=== PATIENT | female | born 1990 | race Caucasian/White ===

== ENCOUNTER 2016-11-22 21:58 | Emergency (ER) | payer SELFPAY ==
[~2016-11-22 21:58] MED LIST: ACHD5005 PO; ACHYD1T PO; ALBU17AE23 IH; ALBU8.5H2 IH; AZIT250T PO; AZIT250T81 PO; DCS100C PO; DIPH1TAB25 PO; DOCO200C4 PO; HYDR-2856 PO; HYDR-757 PO; IBP600T1 PO; IBP800T PO; Ibuprofen PO; LORA10TA7 PO; LRT10T PO; NAPR-243 PO; NF-CIPDEC OT; NITR-65 PO; NITR100C3 PO; NORG1TAB15 PO; NORG1TAB17; ONDA-43 PO; ONDA8TAB13 PO; PREN-115 PO; PREN1TAB14 PO; PREN1TAB25 PO; PRM5C60 TOP; [UNRECOGNIZED DRUG - CODE] IM; epi pen
--- OUTSIDE RECORDS SUMMARY | 2016-11-22 22:05 | XMS REPORT | Continuity of Care Document ---
Author Author [facility] Organization [facility] Address Unknown Phone Unavailable Care Team Providers Care Ceramic Research Engineer Name Role Phone NO, LOCAL PHYSICIAN PCP Unavailable Insurance Providers Payer Name Policy Number Subscriber Name Relationship [facility] [id number] Chayo Wiley Self / Same As Patient Advance Directives Directive Response Recorded Date/Time Advance Directives No 01/25/16 1:01pm Health Care Power of Recreation Superintendent No 01/25/16 1:01pm Organ Donor Yes 01/25/16 1:01pm Resuscitation Status Full Code 01/25/16 1:01pm Chief Complaint and Reason for Visit Chief Complaint Lower Extremity Reason for Visit Fall in home Pain of left lower extremity due to injury status post left ankle surgery Problems Active Problems Medical Problem Onset Date Status Abdominal pain Unknown Acute Abdominal pain Unknown Acute Constipation Unknown Acute Diarrhea Unknown Acute Dysfunctional uterine bleeding Unknown Acute Edema of both legs Unknown Acute Fall in home Unknown Acute Intermittent palpitations Unknown Acute Intermittent palpitations Unknown Acute Otitis externa Unknown Acute Pain of left lower extremity due to injury Unknown Acute Sprain of ankle Unknown Acute Urinary tract infection Unknown Acute Medications Current Home Medications Medication Dose Units Route Directions Days/Qty Instructions Start Date Albuterol 8.5 Gm 1 Puff Inhalation Every 4HRS as needed for Shortness Of Breath PRN SHORTNESS OF BREATH 03/01/14 Past Home Medications Medication Directions Ordered Status Norgestimate-Ethinyl Estradiol 1 Each Tablet, 09/12/09 Discontinued Loratadine 10 Mg Tablet, 10 Mg Oral Daily 06/14/10 Discontinued Vits W-Ca,Fe,Fa(<1MG) 1 Each Tablet, 1 Each Oral 10/30/10 Discontinued Nitrofurantoin Macrocrystals 100 Mg Capsule, 1 Cap Oral Twice A Day 10/30/10 Discontinued Albuterol 17 Gm Aerosol, 90 Mcg Inhalation As Needed 06/21/11 Discontinued Epinephrine 0.3 Mg/0.3 Ml Pen.injctr, 0.3 Mg Intramusc As Needed 06/21/11 Discontinued Loratadine 10 Mg Tab, 10 Mg Oral Daily 01/16/13 Discontinued Loratadine 10 Mg Tab, 10 Mg Oral Daily 01/27/13 Discontinued Vit #108/Iron/Fa 1 Each Tablet, 1 Each Oral 01/27/13 Discontinued Vit #108/Iron/Fa 1 Each Tablet, 1 Each Oral Daily 01/27/13 Discontinued [Epi Pen] , As Needed 02/25/13 Discontinued Albuterol Sulfate 8 Gm Hfa.aer.ad, 8 Gm Inhalation As Needed 02/25/13 Discontinued Acetaminophen/Hydrocodone Bitart 1 Tab Tablet, 1 - 2 Tab Oral Every 3 Hours as needed 02/28/13 Discontinued Ibuprofen 800 Mg Tab, 800 Mg Oral Every 6 Hours as needed 02/28/13 Discontinued Docusate Sodium 100 Mg Capsule, 100 Mg Oral Twice A Day 02/28/13 Discontinued Norgestimate-Ethinyl Estradiol 1 Each Tablet, 1 Each Oral Daily 10/28/13 Discontinued Naproxen 500 Mg Tablet, 1 Each Oral Twice A Day as needed for Pain 10/28/13 Discontinued Nitrofurantoin Macrocrystals 100 Mg Capsule, 1 Each Oral Twice A Day Discontinued Ondansetron 8 Mg Tab.rapdis, 8 Mg Oral Every 6 Hours as needed for Nausea/ Vomiting 01/11/14 Discontinued Acetaminophen/Hydrocodone Bitart 1 Each Tablet, 1 Each Oral Every 4HRS as needed for Pain 01/11/14 Discontinued Docosahexanoic Acid 200 Mg Capsule, 200 Mg Oral Daily 03/01/14 Discontinued Ondansetron 8 Mg Tab, 8 Mg Oral Every 8HRS 07/09/14 Discontinued Azithromycin 250 Mg Tablet, 250 Mg Oral Daily 08/14/14 Discontinued Vit#96/Ferrous Fum/Fa 1 Each Tablet, 1 Each Oral Bedtime 09/01/14 Discontinued Docusate Sodium 100 Mg Cap, 100 Mg Oral Twice A Day 09/10/14 Discontinued Acetaminophen/Hydrocodone Bitart 1 Ea Tab, 1-2 Ea Oral Every 4HRS as needed for Pain 09/10/14 Discontinued [Ibuprofen] 800 Mg Tab, 800 Mg Oral Every 6 Hours 09/10/14 Discontinued Diphenoxylate Hcl/Atropine (Lomotil) 1 Tab Tablet, 1 Each Oral Qid Prn Discontinued Nitrofurantoin Macrocrystals 100 Mg Capsule, 1 Each Oral Twice A Day Discontinued Ciprofloxacin Hcl/Dexameth 7.5 Ml Soln, 2 Drops Otic Twice A Day 06/13/15 Discontinued Azithromycin 250 Mg Tablet, 250 Mg Oral Daily 06/13/15 Discontinued Hydrocodone/Acetaminophen 1 Each Tablet, 1 Each Oral Every 6 Hours as needed for Pain 06/13/15 Discontinued Social History Social History Problem Response Recorded Date/Time Alcohol Use Occasionally Uses 01/25/2016 1:01pm Recreational Drug Use No 01/25/2016 1:01pm Recent Foreign Travel No 05/27/2014 5:35pm Recent Infectious Disease Exposure No 05/27/2014 5:35pm Hospitalization with Isolation Denies 05/27/2014 5:35pm Smoking Status Current Everyday Smoker 01/25/2016 1:01pm Do you dip or chew tobacco? No 01/25/2016 1:01pm Query Response Start Date Stop Date Smoking Status Current Everyday Smoker 11/20/2013 Hospital Discharge Instructions No hospital discharge instructions. Plan of Care Discharge Date 01/25/16 3:14pm Disposition 01 HOME, SELF-CARE Condition at Discharge Improved Instructions/Education Provided SPLINT CARE Prescriptions See Medication Section Referrals TYE GR DPM - NO,LOCAL PHYSICIAN - Primary Care Physician Additional Instructions/Education All discharge instructions reviewed with patient and/or family. Voiced understanding. Continue usual home medications. Continue instructions by Dr. Gr. Nonweightbearing on the left lower extremity. Continue use of crutches. Ice pack for 20 minute intervals 6 times daily 3 days. Elevate the left ankle on pillows. Follow-up with Dr. Gr as previously scheduled. Contact his office Center if needed. Return to the emergency department for worsened pain, discoloration of the toes, pain from the splint, numbness, weakness, neck pain, back pain, headache, dizziness, changes in vision, changes in speech, seizure, shortness of air, vomiting, or any other concerns. Functional Status No functional status results. Allergies, Adverse Reactions, Alerts Allergen Type Severity Reaction Status Last Updated cefaclor ([id number]) Allergy Mild Active 03/11/09 amoxicillin ([id number]) Allergy Unknown Active 07/09/14 BEE'S Allergy Unknown Active 07/09/14 Immunizations Name Given Type Date of Influenza Vaccine 06/29/14 Historical Tetanus Booster (TDap) Less than 5yrs Historical Vital Signs Acute Vital Signs Vital Response Date/Time Temperature (Fahrenheit) 98.1 degrees F (97.6 - 99.5) 01/25/2016 1:01pm Temperature (Calculated Celsius) 36.51432 degrees C (36.4 - 37.5) 01/25/2016 1:01pm Temperature Source Temporal 01/25/2016 1:01pm Pulse Rate (adult) 92 bpm (60 - 90) 01/25/2016 1:01pm Respiratory Rate 20 bpm (12 - 24) 01/25/2016 1:01pm O2 Sat by Pulse Oximetry 99 % (88 - 100) 01/25/2016 1:01pm Blood Pressure 132/78 mm Hg 01/25/2016 1:01pm Blood Pressure Mean 96 mm Hg 01/25/2016 1:01pm Pain Pain Intensity 6 01/25/2016 1:01pm Height (Feet) 5 feet 01/25/2016 1:01pm Height (Calculated Centimeters) 152.165152 cm 01/25/2016 1:01pm Weight (Pounds) 190 pounds 01/25/2016 1:01pm Weight (Calculated Kilograms) 86.557849 kilograms 01/25/2016 1:01pm Height 5 ft 0 in Weight 190 lb Body Mass Index 37.1 kg/m^2 Results No known relevant diagnostic tests, laboratory data and/or discharge summary. Procedures No known history of procedures. Encounters Encounter Location Arrival/Admit Date Discharge/Depart Date Attending Provider Departed Emergency Room [facility] 01/25/16 12:20pm 02/04 3:14pm VERONA FOSTER Recent Diagnosis
== END 2016-11-22 23:35 | disposition left against medical advice (07) ==
LOC: EDUNIT# 21:58 → ER 22:00
DX: R10.84 Generalized abdominal pain (principal); Z53.21 Procedure and treatment not carried out due to patient leaving prior to being seen by health care provider

== ENCOUNTER → 2016-12-02 | Outpatient (CLI) | payer MEDICAID ==
[~2016-12-02] MED LIST changes: +ONDA4TAB10; +VIT1TABL75
--- OUTSIDE RECORDS SUMMARY | 2016-12-02 12:02 | XMS REPORT | Continuity of Care Document ---
Author Author [facility] Organization [facility] Address Unknown Phone Unavailable Care Team Providers Care First Coat Sander Name Role Phone NO, LOCAL PHYSICIAN PCP Unavailable Insurance Providers Payer Name Policy Number Subscriber Name Relationship [facility] [id number] Chayo Wiley Self / Same As Patient Advance Directives Directive Response Recorded Date/Time Advance Directives No 01/25/16 1:01pm Health Care Power of Bindery Machine Setter No 01/25/16 1:01pm Organ Donor Yes 01/25/16 [...] Type Severity Reaction Status Last Updated cefaclor ([id number]) Allergy Mild Active 03/11/09 amoxicillin ([id number]) Allergy Unknown Active 07/09/14 BEE'S Allergy Unknown Active 07/09/14 Immunizations Name Given Type Date of Influenza Vaccine 06/29/14 Historical Tetanus Booster (TDap) Less than 5yrs Historical Vital Signs Acute Vital Signs Vital Response Date/Time Temperature (Fahrenheit) 98.1 degrees F (97.6 - 99.5) 01/25/2016 1:01pm Temperature (Calculated Celsius) 36.45450 degrees C (36.4 - 37.5) 01/25/2016 1:01pm [...] 5 feet 01/25/2016 1:01pm Height (Calculated Centimeters) 152.423068 cm 01/25/2016 1:01pm Weight (Pounds) 190 pounds 01/25/2016 1:01pm Weight (Calculated Kilograms) 86.397513 kilograms 01/25/2016 1:01pm Height 5 ft 0 in Weight 190 lb Body Mass Index 37.1 kg/m^2 Results No known relevant diagnostic tests, laboratory data and/or discharge summary. Procedures No known history of procedures. Encounters Encounter Location Arrival/Admit Date Discharge/Depart Date Attending Provider Departed Emergency Room [facility] 01/25/16 12:20pm 02/04 3:14pm VERONA FOSTER Recent Diagnosis
--- NOTE | 2016-12-02 12:41 | Diagnostic Imaging Report ---
First trimester OB ultrasound. INDICATION: Dating. FINDINGS: There is a normal-appearing single intrauterine . An embryo is seen with cardiac activity at 156 beats per minute. The crown-rump length is at 8 weeks and 5 days. YARA is 07/09/17. The right ovary demonstrates a the small cystic area with thickened wall suggestive of a corpus luteum cyst. The left ovary is obscured by bowel gas. IMPRESSION: Live single intrauterine . Dictated by: Dictated on workstation # [id number]
== END ==
LOC: RAD 11:59
PROVIDERS: ATTEND Family Medicine
DX: Z34.91 Encounter for supervision of normal pregnancy, unspecified, first trimester (principal)
CPT/HCPCS: 76801

== ENCOUNTER 2016-12-15 22:15 | Emergency (ER) | payer MEDICAID ==
[~2016-12-15] VITALS: Ht 152.4 cm; Wt 86.2 kg
[~2016-12-15 22:15] MED LIST changes: -ONDA4TAB10; -VIT1TABL75
[2016-12-15] MEDS ORDERED: VIT1TABL75 (22:52)
[2016-12-15] MEDS ORDERED: ONDA4TAB10 (22:53)
[2016-12-15 23:38] LABS: BILIRUBIN,URINE NEGATIVE (NEGATIVE); KETONES,URINE 2+ (NEGATIVE); LEUKOCYTE ESTERASE ,URINE 1+ (NEGATIVE); NITRITE,URINE NEGATIVE (NEGATIVE); PH,URINE 6 (5-9); PROTEIN,URINE 2+ (NEGATIVE); UROBILINOGEN,URINE 4 MG/DL (NORMAL)
[2016-12-15 23:48] LABS: SQUAMOUS EPITHELIAL CELL,UR 25-50 /HPF; WBC,URINE RARE /HPF
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
[2016-12-16 00:25] VITALS: BP 118/68
--- OUTSIDE RECORDS SUMMARY | 2016-12-31 15:19 | XMS REPORT ---
Author Author MYKE CASTANEDA [facility] [employer] Address Unknown Phone Unavailable Care Team Providers Care Safety Belt Installer Name Role Phone MYKE CASTANEDA CP Unavailable Allergies, Adverse Reactions, Alerts Substance Reaction Event Type Cefaclor Info Not Available Drug Allergy Problems Problem Type Condition Code Onset Dates Condition Status Problem Leukorrhea, not specified as infective 623.5 Active Problem Screening examination for venereal disease V74.5 Active Problem state, incidental V22.2 Active Problem Infections of genitourinary tract in , unspecified as to episode of care 646.60 Active Problem Other dyspnea and respiratory abnormalities 786.09 Active Problem Abdominal pain, unspecified site 789.00 Active Problem Irregular menstrual cycle 626.4 Active Problem Other disorder of menstruation and other abnormal bleeding from female genital tract 626.8 Active Problem Other general counseling and advice for contraceptive management V25.09 Active Problem DTAP TEST V06.1 Active Problem Screening for malignant neoplasm of the cervix V76.2 Active Problem Maternal thyroid dysfunction complicating , childbirth, or the puerperium, unspecified as to episode of care or not applicable 648.10 Active Problem examination or test, positive result V72.42 Active Problem Impacted cerumen 380.4 Active Problem Unspecified vaginitis and vulvovaginitis 616.10 Active Problem Need for prophylactic vaccination and inoculation, Influenza V04.81 Active Problem Other, multiple, and unspecified sites, insect bite, nonvenomous, without mention of infection 919.4 Active Problem Thyrotoxicosis without mention of goiter or other cause, without mention of thyrotoxic crisis or storm 242.90 Active Problem Diarrhea 787.91 Active Problem Intestinal infection due to other organism, NEC 008.8 Active Problem Dysmenorrhea 625.3 Active Problem Screening of Streptococcus B V28.6 Active Problem Lumbago 724.2 Active Problem Supervision of other normal V22.1 Active Problem Acute upper respiratory infections of unspecified site 465.9 Active Problem Unspecified infective otitis externa 380.10 Active Problem Routine follow-up V24.2 Active Problem Carpal tunnel syndrome 354.0 Active Problem Previous delivery, unspecified as to episode of care or not applicable 654.20 Active Problem Sacroiliitis, not elsewhere classified 720.2 Active Problem Postnasal drip 784.91 Active Problem Female stress incontinence 625.6 Active Problem Unspecified contraceptive management V25.9 Active Problem Unspecified constipation 564.00 Active Assessment Strep pharyngitis J02.0 Active Problem Plantar fascial fibromatosis 728.71 Active Assessment Acute nasopharyngitis J00 Active Problem Pain in joint, ankle and foot 719.47 Active Problem Pain in joint, forearm 719.43 Active Problem Pain in soft tissues of limb 729.5 Active Medications Medication Code System Code Instructions Start Date End Date Status Dosage Amoxicillin [facility] [address]-94 500 MG Orally every 12 hrs Oct 15, 2015 Oct 25, 2015 1 tablet Procedures Procedure Coding System Code Date Office Visit, Est Pt., Level 3 CPT-4 19046 Oct 15, 2015 STREP A ASSAY W/OPTIC CPT-4 98981 Oct 15, 2015 Vital Signs Date/Time: Oct 15, 2015 Temperature 98.5 F Weight 199 lbs Height 61 in BMI 37.60 Index Blood Pressure Diastolic 82 mmHg Blood Pressure Systolic 124 mmHg Cardiac Monitoring Heart Rate 76 bpm Results Name Result Date Reference Range Unit Abnormality Flag STREP A (IN HOUSE) ----STREP A Positive [id number] ----Control + [id number] ----Lot # [id number] ----Exp date 04/14/201720151015 Summary Purpose eClinicalWorks Submission
--- OUTSIDE RECORDS SUMMARY | 2016-12-31 15:27 | XMS REPORT | Continuity of Care Document ---
Author Author [facility] Address Unknown Phone Unavailable Allergies Active Description Code Type Severity Reaction Onset Reported/Identified Relationship to Patient Clinical Status Yes amoxicillin Drug Allergy N/A N/A 11/26/2008 Yes bees OA N/A N/A 11/26/2008 Yes amoxicillin Drug Allergy 11/26/2008 Yes bees OA 11/26 Yes cefaclor [id number] Drug Allergy Mild N/A 03/11/2009 Yes Ceclor Drug Allergy N/A N/A 11/01/2010 Yes Ceclor Drug Allergy 11/01/2010 Yes amoxicillin [id number] Drug Allergy Unknown N/A 07/09/2014 Yes BEE'S BEE'S Unknown N/A 07/09/2014 Medications Problems Date Dx Coded Attending Type Code Diagnosis Diagnosed By 11/26/2008 DERICK PORRAS DO 719.47 Pain In Joint Involving Ankle And Foot 11/26/2008 DERICK PORRAS DO V70.3 Sports/school Exam 11/26/2008 DERICK PORRAS DO 719.47 Pain In Joint Involving Ankle And Foot 11/26/2008 DERICK PORRAS DO V70.3 Sports/school Exam 11/26/2008 719.47 Pain In Joint Involving Ankle And Foot 11/26/2008 V70.3 Sports/school Exam 11/26/2008 DERICK PORRAS DO 719.47 Pain In Joint Involving Ankle And Foot 11/26/2008 DERICK PORRAS DO V70.3 Sports/school Exam 11/26/2008 719.47 Pain In Joint Involving Ankle And Foot 11/26/2008 V70.3 Sports/school Exam 11/26/2008 719.47 Pain In Joint Involving Ankle And Foot 11/26/2008 V70.3 Sports/school Exam 11/26/2008 719.47 Pain In Joint Involving Ankle And Foot 11/26/2008 V70.3 Sports/school Exam 11/26/2008 DERICK PORRAS DO 719.47 Pain In Joint Involving Ankle And Foot 11/26/2008 DERICK PORRAS DO V70.3 Sports/school Exam 11/26/2008 719.47 Pain In Joint Involving Ankle And Foot 11/26/2008 V70.3 Sports/school Exam 11/26/2008 719.47 Pain In Joint Involving Ankle And Foot 11/26/2008 V70.3 Sports/school Exam 11/26/2008 719.47 Pain In Joint Involving Ankle And Foot 11/26/2008 V70.3 Sports/school Exam 11/26/2008 719.47 Pain In Joint Involving Ankle And Foot 11/26/2008 V70.3 Sports/school Exam 11/26/2008 719.47 Pain In Joint Involving Ankle And Foot 11/26/2008 V70.3 Sports/school Exam 11/26/2008 719.47 Pain In Joint Involving Ankle And Foot 11/26/2008 V70.3 Sports/school Exam 11/26/2008 719.47 Pain In Joint Involving Ankle And Foot 11/26/2008 V70.3 Sports/school Exam 11/26/2008 719.47 Pain In Joint Involving Ankle And Foot 11/26/2008 V70.3 Sports/school Exam 11/26/2008 719.47 Pain In Joint Involving Ankle And Foot 11/26/2008 V70.3 Sports/school Exam 11/26/2008 719.47 Pain In Joint Involving Ankle And Foot 11/26/2008 V70.3 Sports/school Exam 11/26/2008 719.47 Pain In Joint Involving Ankle And Foot 11/26/2008 V70.3 Sports/school Exam 11/26/2008 719.47 Pain In Joint Involving Ankle And Foot 11/26/2008 V70.3 Sports/school Exam 11/26/2008 719.47 Pain In Joint Involving Ankle And Foot 11/26/2008 V70.3 Sports/school Exam 11/26/2008 DERICK PORRAS DO 719.47 Pain In Joint Involving Ankle And Foot 11/26/2008 DERICK PORRAS DO V70.3 Sports/school Exam 11/26/2008 GILBERTO ROPER APRN 719.47 Pain In Joint Involving Ankle And Foot 11/26/2008 GILBERTO ROPER APRN V70.3 Sports/school Exam 11/26/2008 [facility], MARLIN S 719.47 Pain In Joint Involving Ankle And Foot 11/26/2008 MARLIN HORNE APRN S V70.3 Sports/school Exam 11/26/2008 GILBERTO ROPER APRN A 719.47 Pain In Joint Involving Ankle And Foot 11/26/2008 GILBERTO ROPER APRN A V70.3 Sports/school Exam 11/26/2008 GILBERTO ROPER APRN A 719.47 Pain In Joint Involving Ankle And Foot 11/26/2008 GILBERTO ROPER APRN A V70.3 Sports/school Exam 11/26/2008 719.47 Pain In Joint Involving Ankle And Foot 11/26/2008 V70.3 Sports/school Exam 11/26/2008 GILBERTO ROPER APRN A 719.47 Pain In Joint Involving Ankle And Foot 11/26/2008 GILBERTO ROPER APRN A V70.3 Sports/school Exam 11/26/2008 SILVA VALENZUELA APRN N 719.47 Pain In Joint Involving Ankle And Foot 11/26/2008 SILVA VALENZUELA APRN N V70.3 Sports/school Exam 11/26/2008 MARLIN HORNE APRN S 719.47 Pain In Joint Involving Ankle And Foot 11/26/2008 MARLIN HORNE APRN S V70.3 Sports/school Exam 11/26/2008 GILBERTO ROPER APRN A 719.47 Pain In Joint Involving Ankle And Foot 11/26/2008 GILBERTO ROPER APRN A V70.3 Sports/school Exam 11/26/2008 DERICK PORRAS DO 719.47 Pain In Joint Involving Ankle And Foot 11/26/2008 HOSEA PORRAS DOA K V70.3 Sports/school Exam 11/26/2008 PORRAS DERICK CHARLES K 719.47 Pain In Joint Involving Ankle And Foot 11/26/2008 CHIQUITA CHARLES DERICK K V70.3 Sports/school Exam 11/26/2008 ZAYRA GOMEZ MD 719.47 Pain In Joint Involving Ankle And Foot 11/26/2008 ZAYRA GOMEZ MD V70.3 Sports/school Exam 11/26/2008 ZAYRA GOMEZ MD 719.47 Pain In Joint Involving Ankle And Foot 11/26/2008 ZAYRA GOMEZ MD V70.3 Sports/school Exam 11/26/2008 MARLIN HORNE APRN 719.47 Pain In Joint Involving Ankle And Foot 11/26/2008 MARLIN HORNE APRN V70.3 Sports/school Exam 11/26/2008 ZAYRA GOMEZ MD 719.47 Pain In Joint Involving Ankle And Foot 11/26/2008 ZAYRA GOMEZ MD V70.3 Sports/school Exam 11/26/2008 ZAYRA GOMEZ MD 719.47 Pain In Joint Involving Ankle And Foot 11/26/2008 ZAYRA GOMEZ MD V70.3 Sports/school Exam 11/26/2008 ZAYRA GOMEZ MD 719.47 Pain In Joint Involving Ankle And Foot 11/26/2008 ZAYRA GOMEZ MD V70.3 Sports/school Exam 11/26/2008 BEINTEZ SKINNER APRN 719.47 Pain In Joint Involving Ankle And Foot 11/26/2008 BENITEZ SKINNER APRN V70.3 Sports/school Exam 11/26/2008 ZAYRA GOMEZ MD 719.47 Pain In Joint Involving Ankle And Foot 11/26/2008 ZAYRA GOMEZ MD V70.3 Sports/school Exam 11/26/2008 GILBERTO ROPER APRN 719.47 Pain In Joint Involving Ankle And Foot 11/26/2008 GILBERTO ROPER APRN A V70.3 Sports/school Exam 11/26/2008 ALAN SUAREZ MD 719.47 Pain In Joint Involving Ankle And Foot 11/26/2008 ALAN SUAREZ MD V70.3 Sports/school Exam 11/26/2008 ALAN SUAREZ MD 719.47 Pain In Joint Involving Ankle And Foot 11/26/2008 ALAN SUAREZ MD V70.3 Sports/school Exam 11/26/2008 ZAYRA GOMEZ MD 719.47 Pain In Joint Involving Ankle And Foot 11/26/2008 ZAYRA GOMEZ MD V70.3 Sports/school Exam 11/26/2008 ALAN SUAREZ MD 719.47 Pain In Joint Involving Ankle And Foot 11/26/2008 DANIELA FINNEY, ALAN Deshpande V70.3 Sports/school Exam 11/26/2008 GILBERTO ROPER APRN 719.47 Pain In Joint Involving Ankle And Foot 11/26/2008 GILBERTO ROPER APRN V70.3 Sports/school Exam 11/26/2008 DERICK PORRAS DO 719.47 Pain In Joint Involving Ankle And Foot 11/26/2008 DERICK PORRAS DO V70.3 Sports/school Exam 11/26/2008 DERICK PORRAS DO 719.47 Pain In Joint Involving Ankle And Foot 11/26/2008 DERICK PORRAS DO V70.3 Sports/school Exam 11/26/2008 JAMIA BINGHAM APRN 719.47 Pain In Joint Involving Ankle And Foot 11/26/2008 JAMIA BINGHAM APRN V70.3 Sports/school Exam 01/06/2009 DERICK PORRAS DO 465.9 Upper Respiratory Infection 01/06/2009 DERICK PORRAS DO 465.9 Upper Respiratory Infection 01/06/2009 465.9 Upper Respiratory Infection 01/06/2009 DERICK PORRAS DO 465.9 Upper Respiratory Infection 01/06/2009 465.9 Upper Respiratory Infection 01/06/2009 465.9 Upper Respiratory Infection 01/06/2009 465.9 Upper Respiratory Infection 01/06/2009 DERICK PORRAS DO 465.9 Upper Respiratory Infection 01/06/2009 465.9 Upper Respiratory Infection 01/06/2009 465.9 Upper Respiratory Infection 01/06/2009 465.9 Upper Respiratory Infection 01/06/2009 465.9 Upper Respiratory Infection 01/06/2009 465.9 Upper Respiratory Infection 01/06/2009 465.9 Upper Respiratory Infection 01/06/2009 465.9 Upper Respiratory Infection 01/06/2009 465.9 Upper Respiratory Infection 01/06/2009 465.9 Upper Respiratory Infection 01/06/2009 465.9 Upper Respiratory Infection 01/06/2009 465.9 Upper Respiratory Infection 01/06/2009 465.9 Upper Respiratory Infection 01/06/2009 465.9 Upper Respiratory Infection 01/06/2009 DERICK PORRAS DO 465.9 Upper Respiratory Infection 01/06/2009 GILBERTO ROPER APRN A 465.9 Upper Respiratory Infection 01/06/2009 [facility], MARLIN S 465.9 Upper Respiratory Infection 01/06/2009 [facility], GILBERTO A 465.9 Upper Respiratory Infection 01/06/2009 [facility], GILBERTO A 465.9 Upper Respiratory Infection 01/06/2009 465.9 Upper Respiratory Infection 01/06/2009 [facility], GILBERTO A 465.9 Upper Respiratory Infection 01/06/2009 [facility] SILVA N 465.9 Upper Respiratory Infection 01/06/2009 OZZIE GRADY, MARLIN S 465.9 Upper Respiratory Infection 01/06/2009 [facility], GILBERTO A 465.9 Upper Respiratory Infection 01/06/2009 PORRAS DO, DERICK K 465.9 Upper Respiratory Infection 01/06/2009 PORRAS DO, DERICK K 465.9 Upper Respiratory Infection 01/06/2009 ZAYRA GOMEZ MD 465.9 Upper Respiratory Infection 01/06/2009 ZAYRA GOMEZ MD 465.9 Upper Respiratory Infection 01/06/2009 RAMEZ HORNE APRNNDA S 465.9 Upper Respiratory Infection 01/06/2009 ZAYRA GOMEZ MD 465.9 Upper Respiratory Infection 01/06/2009 ZAYRA GOMEZ MD 465.9 Upper Respiratory Infection 01/06/2009 ZAYRA GOMEZ MD 465.9 Upper Respiratory Infection 01/06/2009 BENITEZ SKINNER APRN 465.9 Upper Respiratory Infection 01/06/2009 ZAYRA GOMEZ MD 465.9 Upper Respiratory Infection 01/06/2009 JUDSON APRN, GILBERTO A 465.9 Upper Respiratory Infection 01/06/2009 ALAN SUAREZ MD 465.9 Upper Respiratory Infection 01/06/2009 ALAN SUAREZ MD 465.9 Upper Respiratory Infection 01/06/2009 ZAYRA GOMEZ MD 465.9 Upper Respiratory Infection 01/06/2009 ALAN SUAREZ MD 465.9 Upper Respiratory Infection 01/06/2009 [facility], GILBERTO A 465.9 Upper Respiratory Infection 01/06/2009 PORRAS DO, DERICK K 465.9 Upper Respiratory Infection 01/06/2009 PORRAS DO, DERICK K 465.9 Upper Respiratory Infection 01/06/2009 JAMIA BINGHAM APRN 465.9 Upper Respiratory Infection 07/24/2009 DERICK PORRAS DO V25.04 Counseling And Instruction In Natural Family Planning To Avoid 07/24/2009 DERICK PORRAS DO V25.04 Counseling And Instruction In Natural Family Planning To Avoid 07/24/2009 V25.04 Counseling And Instruction In Natural Family Planning To Avoid 07/24/2009 DERICK PORRAS DO V25.04 Counseling And Instruction In Natural Family Planning To Avoid 07/24/2009 V25.04 Counseling And Instruction In Natural Family Planning To Avoid 07/24/2009 V25.04 Counseling And Instruction In Natural Family Planning To Avoid 07/24/2009 V25.04 Counseling And Instruction In Natural Family Planning To Avoid 07/24/2009 DERICK PORRAS DO V25.04 Counseling And Instruction In Natural Family Planning To Avoid 07/24/2009 V25.04 Counseling And Instruction In Natural Family Planning To Avoid 07/24/2009 V25.04 Counseling And Instruction In Natural Family Planning To Avoid 07/24/2009 V25.04 Counseling And Instruction In Natural Family Planning To Avoid 07/24/2009 V25.04 Counseling And Instruction In Natural Family Planning To Avoid 07/24/2009 V25.04 Counseling And Instruction In Natural Family Planning To Avoid 07/24/2009 V25.04 Counseling And Instruction In Natural Family Planning To Avoid 07/24/2009 V25.04 Counseling And Instruction In Natural Family Planning To Avoid 07/24/2009 V25.04 Counseling And Instruction In Natural Family Planning To Avoid 07/24/2009 V25.04 Counseling And Instruction In Natural Family Planning To Avoid 07/24/2009 V25.04 Counseling And Instruction In Natural Family Planning To Avoid 07/24/2009 V25.04 Counseling And Instruction In Natural Family Planning To Avoid 07/24/2009 V25.04 Counseling And Instruction In Natural Family Planning To Avoid 07/24/2009 V25.04 Counseling And Instruction In Natural Family Planning To Avoid 07/24/2009 DERICK PORRAS DO V25.04 Counseling And Instruction In Natural Family Planning To Avoid 07/24/2009 GILBERTO ROPER APRN V25.04 Counseling And Instruction In Natural Family Planning To Avoid 07/24/2009 MARLIN HORNE APRN V25.04 Counseling And Instruction In Natural Family Planning To Avoid 07/24/2009 GILBERTO ROPER APRN A V25.04 Counseling And Instruction In Natural Family Planning To Avoid 07/24/2009 GILBERTO ROPER APRN A V25.04 Counseling And Instruction In Natural Family Planning To Avoid 07/24/2009 V25.04 Counseling And Instruction In Natural Family Planning To Avoid 07/24/2009 GILBERTO ROPER APRN A V25.04 Counseling And Instruction In Natural Family Planning To Avoid 07/24/2009 SILVA VALENZUELA APRN V25.04 Counseling And Instruction In Natural Family Planning To Avoid 07/24/2009 MARLIN HORNE APRN V25.04 Counseling And Instruction In Natural Family Planning To Avoid 07/24/2009 GILBERTO ROPER APRN A V25.04 Counseling And Instruction In Natural Family Planning To Avoid 07/24/2009 DERICK PORRAS DO V25.04 Counseling And Instruction In Natural Family Planning To Avoid 07/24/2009 DERICK PORRAS DO V25.04 Counseling And Instruction In Natural Family Planning To Avoid 07/24/2009 ZAYRA GOMEZ MD V25.04 Counseling And Instruction In Natural Family Planning To Avoid 07/24/2009 ZAYRA GOMEZ MD V25.04 Counseling And Instruction In Natural Family Planning To Avoid 07/24/2009 MARLIN HORNE APRN V25.04 Counseling And Instruction In Natural Family Planning To Avoid 07/24/2009 ZAYRA GOMEZ MD V25.04 Counseling And Instruction In Natural Family Planning To Avoid 07/24/2009 ZAYRA GOMEZ MD V25.04 Counseling And Instruction In Natural Family Planning To Avoid 07/24/2009 ZAYRA GOMEZ MD V25.04 Counseling And Instruction In Natural Family Planning To Avoid 07/24/2009 BENITEZ SKINNER APRN V25.04 Counseling And Instruction In Natural Family Planning To Avoid 07/24/2009 ZAYRA GOMEZ MD V25.04 Counseling And Instruction In Natural Family Planning To Avoid 07/24/2009 GILBERTO ROPER APRN V25.04 Counseling And Instruction In Natural Family Planning To Avoid 07/24/2009 ALAN SUAREZ MD V25.04 Counseling And Instruction In Natural Family Planning To Avoid 07/24/2009 ALAN SUAREZ MD V25.04 Counseling And Instruction In Natural Family Planning To Avoid 07/24/2009 ZAYRA GOMEZ MD V25.04 Counseling And Instruction In Natural Family Planning To Avoid 07/24/2009 ALAN SUAREZ MD V25.04 Counseling And Instruction In Natural Family Planning To Avoid 07/24/2009 GILBERTO ROPER APRN V25.04 Counseling And Instruction In Natural Family Planning To Avoid 07/24/2009 DERICK PORRAS DO V25.04 Counseling And Instruction In Natural Family Planning To Avoid 07/24/2009 DERICK PORRAS DO K V25.04 Counseling And Instruction In Natural Family Planning To Avoid 07/24/2009 JAMIA BINGHAM APRN V25.04 Counseling And Instruction In Natural Family Planning To Avoid 08/24/2009 DERICK PORRAS DO K V25.41 Visit For: Contraceptive Surveillance Pill 08/24/2009 HOSEA PORRAS DOA K V69.2 Sexually Active, Frequently With New Partners 08/24/2009 HOSEA PORRAS DOA K V72.31 Pelvic Exam (internal) 08/24/2009 HOSEA PORRAS DOA K V74.5 Std Screen 08/24/2009 HOSEA PORRAS DOA K V25.41 Visit For: Contraceptive Surveillance Pill 08/24/2009 HOSEA PORRAS DOA K V69.2 Sexually Active, Frequently With New Partners 08/24/2009 DERICK PORRAS DO K V72.31 Pelvic Exam (internal) 08/24/2009 DERICK PORRAS DO K V74.5 Std Screen 08/24/2009 V25.41 Visit For: Contraceptive Surveillance Pill 08/24/2009 V69.2 Sexually Active, Frequently With New Partners 08/24/2009 V72.31 Pelvic Exam (internal) 08/24/2009 V74.5 Std Screen 08/24/2009 DERICK PORRAS DO K V25.41 Visit For: Contraceptive Surveillance Pill 08/24/2009 PORRAS HOSEA CHARLESA K V69.2 Sexually Active, Frequently With New Partners 08/24/2009 DERICK PORRAS DO K V72.31 Pelvic Exam (internal) 08/24/2009 DERICK PORRAS DO K V74.5 Std Screen 08/24/2009 V25.41 Visit For: Contraceptive Surveillance Pill 08/24/2009 V69.2 Sexually Active, Frequently With New Partners 08/24/2009 V72.31 Pelvic Exam (internal) 08/24/2009 V74.5 Std Screen 08/24/2009 V25.41 Visit For: Contraceptive Surveillance Pill 08/24/2009 V69.2 Sexually Active, Frequently With New Partners 08/24/2009 V72.31 Pelvic Exam (internal) 08/24/2009 V74.5 Std Screen 08/24/2009 V25.41 Visit For: Contraceptive Surveillance Pill 08/24/2009 V69.2 Sexually Active, Frequently With New Partners 08/24/2009 V72.31 Pelvic Exam (internal) 08/24/2009 V74.5 Std Screen 08/24/2009 DERICK PORRAS DO V25.41 Visit For: Contraceptive Surveillance Pill 08/24/2009 DERICK PORRAS DO V69.2 Sexually Active, Frequently With New Partners 08/24/2009 DERICK PORRAS DO V72.31 Pelvic Exam (internal) 08/24/2009 DERICK PORRAS DO V74.5 Std Screen 08/24/2009 V25.41 Visit For: Contraceptive Surveillance Pill 08/24/2009 V69.2 Sexually Active, Frequently With New Partners 08/24/2009 V72.31 Pelvic Exam (internal) 08/24/2009 V74.5 Std Screen 08/24/2009 V25.41 Visit For: Contraceptive Surveillance Pill 08/24/2009 V69.2 Sexually Active, Frequently With New Partners 08/24/2009 V72.31 Pelvic Exam (internal) 08/24/2009 V74.5 Std Screen 08/24/2009 V25.41 Visit For: Contraceptive Surveillance Pill 08/24/2009 V69.2 Sexually Active, Frequently With New Partners 08/24/2009 V72.31 Pelvic Exam (internal) 08/24/2009 V74.5 Std Screen 08/24/2009 V25.41 Visit For: Contraceptive Surveillance Pill 08/24/2009 V69.2 Sexually Active, Frequently With New Partners 08/24/2009 V72.31 Pelvic Exam (internal) 08/24/2009 V74.5 Std Screen 08/24/2009 V25.41 Visit For: Contraceptive Surveillance Pill 08/24/2009 V69.2 Sexually Active, Frequently With New Partners 08/24/2009 V72.31 Pelvic Exam (internal) 08/24/2009 V74.5 Std Screen 08/24/2009 V25.41 Visit For: Contraceptive Surveillance Pill 08/24/2009 V69.2 Sexually Active, Frequently With New Partners 08/24/2009 V72.31 Pelvic Exam (internal) 08/24/2009 V74.5 Std Screen 08/24/2009 V25.41 Visit For: Contraceptive Surveillance Pill 08/24/2009 V69.2 Sexually Active, Frequently With New Partners 08/24/2009 V72.31 Pelvic Exam (internal) 08/24/2009 V74.5 Std Screen 08/24/2009 V25.41 Visit For: Contraceptive Surveillance Pill 08/24/2009 V69.2 Sexually Active, Frequently With New Partners 08/24/2009 V72.31 Pelvic Exam (internal) 08/24/2009 V74.5 Std Screen 08/24/2009 V25.41 Visit For: Contraceptive Surveillance Pill 08/24/2009 V69.2 Sexually Active, Frequently With New Partners 08/24/2009 V72.31 Pelvic Exam (internal) 08/24/2009 V74.5 Std Screen 08/24/2009 V25.41 Visit For: Contraceptive Surveillance Pill 08/24/2009 V69.2 Sexually Active, Frequently With New Partners 08/24/2009 V72.31 Pelvic Exam (internal) 08/24/2009 V74.5 Std Screen 08/24/2009 V25.41 Visit For: Contraceptive Surveillance Pill 08/24/2009 V69.2 Sexually Active, Frequently With New Partners 08/24/2009 V72.31 Pelvic Exam (internal) 08/24/2009 V74.5 Std Screen 08/24/2009 V25.41 Visit For: Contraceptive Surveillance Pill 08/24/2009 V69.2 Sexually Active, Frequently With New Partners 08/24/2009 V72.31 Pelvic Exam (internal) 08/24/2009 V74.5 Std Screen 08/24/2009 V25.41 Visit For: Contraceptive Surveillance Pill 08/24/2009 V69.2 Sexually Active, Frequently With New Partners 08/24/2009 V72.31 Pelvic Exam (internal) 08/24/2009 V74.5 Std Screen 08/24/2009 DERICK PORRAS DO V25.41 Visit For: Contraceptive Surveillance Pill 08/24/2009 PORRAS DO, DERICK K V69.2 Sexually Active, Frequently With New Partners 08/24/2009 PORRAS DO, DERICK K V72.31 Pelvic Exam (internal) 08/24/2009 PORRAS DO, DERICK K V74.5 Std Screen 08/24/2009 [facility], GILBERTO A V25.41 Visit For: Contraceptive Surveillance Pill 08/24/2009 [facility], GILBERTO A V69.2 Sexually Active, Frequently With New Partners 08/24/2009 [facility], GILBERTO A V72.31 Pelvic Exam (internal) 08/24/2009 [facility], GILBERTO A V74.5 Std Screen 08/24/2009 OZZIEBOBBY GRADY MARLIN S V25.41 Visit For: Contraceptive Surveillance Pill 08/24/2009 [facility] MARLIN S V69.2 Sexually Active, Frequently With New Partners 08/24/2009 [facility] MARLIN S V72.31 Pelvic Exam (internal) 08/24/2009 [facility] MARLIN S V74.5 Std Screen 08/24/2009 [facility], GILBERTO A V25.41 Visit For: Contraceptive Surveillance Pill 08/24/2009 [facility], GILBERTO A V69.2 Sexually Active, Frequently With New Partners 08/24/2009 [facility], GILBERTO A V72.31 Pelvic Exam (internal) 08/24/2009 [facility], GILBERTO A V74.5 Std Screen 08/24/2009 [facility], GILBERTO A V25.41 Visit For: Contraceptive Surveillance Pill 08/24/2009 [facility], GILBERTO A V69.2 Sexually Active, Frequently With New Partners 08/24/2009 [facility], GILBERTO A V72.31 Pelvic Exam (internal) 08/24/2009 [facility], GILBERTO A V74.5 Std Screen 08/24/2009 V25.41 Visit For: Contraceptive Surveillance Pill 08/24/2009 V69.2 Sexually Active, Frequently With New Partners 08/24/2009 V72.31 Pelvic Exam (internal) 08/24/2009 V74.5 Std Screen 08/24/2009 [facility], GILBERTO A V25.41 Visit For: Contraceptive Surveillance Pill 08/24/2009 [facility], GILBERTO A V69.2 Sexually Active, Frequently With New Partners 08/24/2009 JUDSON HERNÁNDEZN, GILBERTO A V72.31 Pelvic Exam (internal) 08/24/2009 JUDSON HERNÁNDEZN, GILBERTO A V74.5 Std Screen 08/24/2009 [facility], SILVA N V25.41 Visit For: Contraceptive Surveillance Pill 08/24/2009 [facility], SILVA N V69.2 Sexually Active, Frequently With New Partners 08/24/2009 [facility], SILVA N V72.31 Pelvic Exam (internal) 08/24/2009 [facility], SILVA N V74.5 Std Screen 08/24/2009 [facility], MARLIN S V25.41 Visit For: Contraceptive Surveillance Pill 08/24/2009 [facility] MARLIN S V69.2 Sexually Active, Frequently With New Partners 08/24/2009 [facility] MARLIN S V72.31 Pelvic Exam (internal) 08/24/2009 [facility], MARLIN S V74.5 Std Screen 08/24/2009 JUDSON GRADY, GILBERTO A V25.41 Visit For: Contraceptive Surveillance Pill 08/24/2009 [facility], GILBERTO A V69.2 Sexually Active, Frequently With New Partners 08/24/2009 JUDSON HERNÁNDEZN, GILBERTO A V72.31 Pelvic Exam (internal) 08/24/2009 JUDSON HERNÁNDEZN, GILBERTO A V74.5 Std Screen 08/24/2009 PORRAS DO, DERICK K V25.41 Visit For: Contraceptive Surveillance Pill 08/24/2009 PORRAS DO, DERICK K V69.2 Sexually Active, Frequently With New Partners 08/24/2009 PORRAS DO, DERICK K V72.31 Pelvic Exam (internal) 08/24/2009 PORRAS DO, DERICK K V74.5 Std Screen 08/24/2009 PORRAS DO, DERICK K V25.41 Visit For: Contraceptive Surveillance Pill 08/24/2009 PORRAS DO, DERICK K V69.2 Sexually Active, Frequently With New Partners 08/24/2009 PORRAS DO, DERICK K V72.31 Pelvic Exam (internal) 08/24/2009 DERICK PORRAS DO K V74.5 Std Screen 08/24/2009 ZAYRA GOMEZ MD V25.41 Visit For: Contraceptive Surveillance Pill 08/24/2009 ZAYRA GOMEZ MD V69.2 Sexually Active, Frequently With New Partners 08/24/2009 ZAYRA GOMEZ MD V72.31 Pelvic Exam (internal) 08/24/2009 ZAYRA GOMEZ MD V74.5 Std Screen 08/24/2009 ZAYRA GOMEZ MD V25.41 Visit For: Contraceptive Surveillance Pill 08/24/2009 ZAYRA GOMEZ MD V69.2 Sexually Active, Frequently With New Partners 08/24/2009 ZAYRA GOMEZ MD V72.31 Pelvic Exam (internal) 08/24/2009 ZAYRA GOMEZ MD V74.5 Std Screen 08/24/2009 OZZIE GRADY MARLIN S V25.41 Visit For: Contraceptive Surveillance Pill 08/24/2009 OZZIE GRADY MARLIN S V69.2 Sexually Active, Frequently With New Partners 08/24/2009 OZZIE GRADY MARLIN S V72.31 Pelvic Exam (internal) 08/24/2009 OZZIE GRADY MARLIN S V74.5 Std Screen 08/24/2009 ZAYRA GOMEZ MD V25.41 Visit For: Contraceptive Surveillance Pill 08/24/2009 ZAYRA GOMEZ MD V69.2 Sexually Active, Frequently With New Partners 08/24/2009 ZAYRA GOMEZ MD V72.31 Pelvic Exam (internal) 08/24/2009 ZAYRA GOMEZ MD V74.5 Std Screen 08/24/2009 ZAYRA GOMEZ MD V25.41 Visit For: Contraceptive Surveillance Pill 08/24/2009 ZAYRA GOMEZ MD V69.2 Sexually Active, Frequently With New Partners 08/24/2009 ZAYRA GOMEZ MD V72.31 Pelvic Exam (internal) 08/24/2009 ZAYRA GOMEZ MD V74.5 Std Screen 08/24/2009 ZAYRA GOMEZ MD V25.41 Visit For: Contraceptive Surveillance Pill 08/24/2009 ZAYRA GOMEZ MD V69.2 Sexually Active, Frequently With New Partners 08/24/2009 ZAYRA GOMEZ MD V72.31 Pelvic Exam (internal) 08/24/2009 ZAYRA GOMEZ MD V74.5 Std Screen 08/24/2009 BENITEZ SKINNER APRN V25.41 Visit For: Contraceptive Surveillance Pill 08/24/2009 BENITEZ SKINNER APRN V69.2 Sexually Active, Frequently With New Partners 08/24/2009 BENITEZ SKINNER APRN V72.31 Pelvic Exam (internal) 08/24/2009 BENITEZ SKINNER APRN V74.5 Std Screen 08/24/2009 ZAYAR GOMEZ MD V25.41 Visit For: Contraceptive Surveillance Pill 08/24/2009 ZAYRA GOMEZ MD V69.2 Sexually Active, Frequently With New Partners 08/24/2009 ZAYRA GOMEZ MD V72.31 Pelvic Exam (internal) 08/24/2009 ZAYRA GOMEZ MD V74.5 Std Screen 08/24/2009 JUDSON GRADY GILBERTO A V25.41 Visit For: Contraceptive Surveillance Pill 08/24/2009 JUDSONCharlee GRADY GILBERTO A V69.2 Sexually Active, Frequently With New Partners 08/24/2009 JUDSON GRADY GILBERTO A V72.31 Pelvic Exam (internal) 08/24/2009 JUDSON GRADY GILBERTO A V74.5 Std Screen 08/24/2009 ALAN SUAREZ MD V25.41 Visit For: Contraceptive Surveillance Pill 08/24/2009 ALAN SUAREZ MD V69.2 Sexually Active, Frequently With New Partners 08/24/2009 ALAN SUAREZ MD V72.31 Pelvic Exam (internal) 08/24/2009 ALAN SUAREZ MD V74.5 Std Screen 08/24/2009 ALAN SUAREZ MD V25.41 Visit For: Contraceptive Surveillance Pill 08/24/2009 ALAN SUAREZ MD V69.2 Sexually Active, Frequently With New Partners 08/24/2009 ALAN SUAREZ MD V72.31 Pelvic Exam (internal) 08/24/2009 ALAN SUAREZ MD V74.5 Std Screen 08/24/2009 ZAYRA GOMEZ MD V25.41 Visit For: Contraceptive Surveillance Pill 08/24/2009 ZAYRA GOMEZ MD V69.2 Sexually Active, Frequently With New Partners 08/24/2009 ZAYRA GOMEZ MD V72.31 Pelvic Exam (internal) 08/24/2009 ZAYRA GOMEZ MD V74.5 Std Screen 08/24/2009 ALAN SUAREZ MD V25.41 Visit For: Contraceptive Surveillance Pill 08/24/2009 ALAN SUAREZ MD V69.2 Sexually Active, Frequently With New Partners 08/24/2009 ALAN SUAREZ MD V72.31 Pelvic Exam (internal) 08/24/2009 ALAN SUAREZ MD V74.5 Std Screen 08/24/2009 [facility], GILBERTO A V25.41 Visit For: Contraceptive Surveillance Pill 08/24/2009 [facility], GILBERTO A V69.2 Sexually Active, Frequently With New Partners 08/24/2009 [facility], GILBERTO A V72.31 Pelvic Exam (internal) 08/24/2009 [facility], GILBERTO A V74.5 Std Screen 08/24/2009 PORRAS DO, DERICK K V25.41 Visit For: Contraceptive Surveillance Pill 08/24/2009 PORRAS DO, DERICK K V69.2 Sexually Active, Frequently With New Partners 08/24/2009 PORRAS DO, DERICK K V72.31 Pelvic Exam (internal) 08/24/2009 PORRAS DO, DERICK K V74.5 Std Screen 08/24/2009 PORRAS DO, DERICK K V25.41 Visit For: Contraceptive Surveillance Pill 08/24/2009 PORRAS DO, DERICK K V69.2 Sexually Active, Frequently With New Partners 08/24/2009 PORRAS DO, DERICK K V72.31 Pelvic Exam (internal) 08/24/2009 PORRAS DO, DERICK K V74.5 Std Screen 08/24/2009 [facility], JAMIA L V25.41 Visit For: Contraceptive Surveillance Pill 08/24/2009 [facility], JAMIA L V69.2 Sexually Active, Frequently With New Partners 08/24/2009 [facility], JAMIA L V72.31 Pelvic Exam (internal) 08/24/2009 [facility], JAMIA Taylor V74.5 Std Screen 11/02/2009 PORRAS DO DERICK K 388.70 Ear Ache 11/02/2009 PORRAS DO DERICK K 388.70 Ear Ache 11/02/2009 388.70 Ear Ache 11/02/2009 PORRAS DO, DERICK K 388.70 Ear Ache 11/02/2009 388.70 Ear Ache 11/02/2009 388.70 Ear Ache 11/02/2009 388.70 Ear Ache 11/02/2009 PORRAS DO, DERICK K 388.70 Ear Ache 11/02/2009 388.70 Ear Ache 11/02/2009 388.70 Ear Ache 11/02/2009 388.70 Ear Ache 11/02/2009 388.70 Ear Ache 11/02/2009 388.70 Ear Ache 11/02/2009 388.70 Ear Ache 11/02/2009 388.70 Ear Ache 11/02/2009 388.70 Ear Ache 11/02/2009 388.70 Ear Ache 11/02/2009 388.70 Ear Ache 11/02/2009 388.70 Ear Ache 11/02/2009 388.70 Ear Ache 11/02/2009 388.70 Ear Ache 11/02/2009 PORRAS DOHOSEAA K 388.70 Ear Ache 11/02/2009 [facility], GILBERTO A 388.70 Ear Ache 11/02/2009 BRISEIDA HORNE APRNA S 388.70 Ear Ache 11/02/2009 [facility], GILBERTO A 388.70 Ear Ache 11/02/2009 [facility], GILBERTO A 388.70 Ear Ache 11/02/2009 388.70 Ear Ache 11/02/2009 [facility], GILBERTO A 388.70 Ear Ache 11/02/2009 SILVA VALENZUELA APRN N 388.70 Ear Ache 11/02/2009 MARLIN HORNE APRN S 388.70 Ear Ache 11/02/2009 [facility], GILBERTO A 388.70 Ear Ache 11/02/2009 HOSEA PORRAS DOA K 388.70 Ear Ache 11/02/2009 PORRAS DO DERICK K 388.70 Ear Ache 11/02/2009 ZAYRA GOMEZ MD 388.70 Ear Ache 11/02/2009 ZAYRA GOMEZ MD 388.70 Ear Ache 11/02/2009 MARLIN HORNE APRN 388.70 Ear Ache 11/02/2009 ZAYRA GOMEZ MD 388.70 Ear Ache 11/02/2009 ZAYRA GOMEZ MD 388.70 Ear Ache 11/02/2009 ZAYRA GOMEZ MD 388.70 Ear Ache 11/02/2009 BENITEZ SKINNER APRN 388.70 Ear Ache 11/02/2009 ZAYRA GOMEZ MD 388.70 Ear Ache 11/02/2009 GILBERTO ROPER APRN A 388.70 Ear Ache 11/02/2009 DANIELA FINNEY, ALAN Deshpande 388.70 Ear Ache 11/02/2009 ALAN SUAREZ MD 388.70 Ear Ache 11/02/2009 ZAYRA GOMEZ MD 388.70 Ear Ache 11/02/2009 DANIELA FINNEY, ALAN N 388.70 Ear Ache 11/02/2009 GILBERTO ROPER APRN A 388.70 Ear Ache 11/02/2009 DERICK PORRAS DO 388.70 Ear Ache 11/02/2009 DERICK PORRAS DO 388.70 Ear Ache 11/02/2009 JAMIA BINGHAM APRN 388.70 Ear Ache 11/23/2009 DERICK PORRAS DO 300.4 MO DYSTHYMIC DISORDER 11/23/2009 DERICK PORRAS DO 300.4 MO DYSTHYMIC DISORDER 11/23/2009 300.4 MO DYSTHYMIC DISORDER 11/23/2009 DERICK PORRAS DO 300.4 MO DYSTHYMIC DISORDER 11/23/2009 300.4 MO DYSTHYMIC DISORDER 11/23/2009 300.4 MO DYSTHYMIC DISORDER 11/23/2009 300.4 MO DYSTHYMIC DISORDER 11/23/2009 DERICK PORRAS DO 300.4 MO DYSTHYMIC DISORDER 11/23/2009 300.4 MO DYSTHYMIC DISORDER 11/23/2009 300.4 MO DYSTHYMIC DISORDER 11/23/2009 300.4 MO DYSTHYMIC DISORDER 11/23/2009 300.4 MO DYSTHYMIC DISORDER 11/23/2009 300.4 MO DYSTHYMIC DISORDER 11/23/2009 300.4 MO DYSTHYMIC DISORDER 11/23/2009 300.4 MO DYSTHYMIC DISORDER 11/23/2009 300.4 MO DYSTHYMIC DISORDER 11/23/2009 300.4 MO DYSTHYMIC DISORDER 11/23/2009 300.4 MO DYSTHYMIC DISORDER 11/23/2009 300.4 MO DYSTHYMIC DISORDER 11/23/2009 300.4 MO DYSTHYMIC DISORDER 11/23/2009 300.4 MO DYSTHYMIC DISORDER 11/23/2009 PORRAS DOHOSEAA K 300.4 MO DYSTHYMIC DISORDER 11/23/2009 JUDSON GRADY, GILBERTO A 300.4 MO DYSTHYMIC DISORDER 11/23/2009 RAMEZ HORNE APRNNDA S 300.4 MO DYSTHYMIC DISORDER 11/23/2009 JUDSONTRENT GRADY GILBERTO A 300.4 MO DYSTHYMIC DISORDER 11/23/2009 JUDSON GRADY GILBERTO A 300.4 MO DYSTHYMIC DISORDER 11/23/2009 300.4 MO DYSTHYMIC DISORDER 11/23/2009 JUDSON GRADY GILBERTO A 300.4 MO DYSTHYMIC DISORDER 11/23/2009 SILVA VALENZUELA APRN 300.4 MO DYSTHYMIC DISORDER 11/23/2009 BRISEIDA HORNE APRNA S 300.4 MO DYSTHYMIC DISORDER 11/23/2009 JUDSON GRADY GILBERTO A 300.4 MO DYSTHYMIC DISORDER 11/23/2009 DERICK PORRAS DO K 300.4 MO DYSTHYMIC DISORDER 11/23/2009 HOSEA PORRAS DOA K 300.4 MO DYSTHYMIC DISORDER 11/23/2009 ZAYRA GOMEZ MD 300.4 MO DYSTHYMIC DISORDER 11/23/2009 ZAYRA GOMEZ MD 300.4 MO DYSTHYMIC DISORDER 11/23/2009 BRISEIDA HORNE APRNA S 300.4 MO DYSTHYMIC DISORDER 11/23/2009 ZAYRA GOMEZ MD 300.4 MO DYSTHYMIC DISORDER 11/23/2009 ZAYRA GOMEZ MD 300.4 MO DYSTHYMIC DISORDER 11/23/2009 ZAYRA GOMEZ MD 300.4 MO DYSTHYMIC DISORDER 11/23/2009 BENITEZ SKINNER APRN 300.4 MO DYSTHYMIC DISORDER 11/23/2009 ZAYRA GOMEZ MD 300.4 MO DYSTHYMIC DISORDER 11/23/2009 GILBERTO ROPER APRN A 300.4 MO DYSTHYMIC DISORDER 11/23/2009 ALAN SUAREZ MD 300.4 MO DYSTHYMIC DISORDER 11/23/2009 ALAN SUAREZ MD 300.4 MO DYSTHYMIC DISORDER 11/23/2009 ZAYRA GOMEZ MD 300.4 MO DYSTHYMIC DISORDER 11/23/2009 ALAN SUAREZ MD 300.4 MO DYSTHYMIC DISORDER 11/23/2009 GILBERTO ROPER APRN A 300.4 MO DYSTHYMIC DISORDER 11/23/2009 DERICK PORRAS DO K 300.4 MO DYSTHYMIC DISORDER 11/23/2009 DERICK PORRAS DO K 300.4 MO DYSTHYMIC DISORDER 11/23/2009 JAMIA BINGHAM APRN 300.4 MO DYSTHYMIC DISORDER 12/14/2009 DERICK PORRAS DO K 296.90 Mo Mood Dis Nos 12/14/2009 DERICK PORRAS DO K 296.90 Mo Mood Dis Nos 12/14/2009 296.90 Mo Mood Dis Nos 12/14/2009 HOSEA PORRAS DOA K 296.90 Mo Mood Dis Nos 12/14/2009 296.90 Mo Mood Dis Nos 12/14/2009 296.90 Mo Mood Dis Nos 12/14/2009 296.90 Mo Mood Dis Nos 12/14/2009 DERICK PORRAS DO K 296.90 Mo Mood Dis Nos 12/14/2009 296.90 Mo Mood Dis Nos 12/14/2009 296.90 Mo Mood Dis Nos 12/14/2009 296.90 Mo Mood Dis Nos 12/14/2009 296.90 Mo Mood Dis Nos 12/14/2009 296.90 Mo Mood Dis Nos 12/14/2009 296.90 Mo Mood Dis Nos 12/14/2009 296.90 Mo Mood Dis Nos 12/14/2009 296.90 Mo Mood Dis Nos 12/14/2009 296.90 Mo Mood Dis Nos 12/14/2009 296.90 Mo Mood Dis Nos 12/14/2009 296.90 Mo Mood Dis Nos 12/14/2009 296.90 Mo Mood Dis Nos 12/14/2009 296.90 Mo Mood Dis Nos 12/14/2009 DERICK PORRAS DO K 296.90 Mo Mood Dis Nos 12/14/2009 [facility] GILBERTO A 296.90 Mo Mood Dis Nos 12/14/2009 OZZIE GRADY, MARLIN S 296.90 Mo Mood Dis Nos 12/14/2009 [facility], GILBERTO A 296.90 Mo Mood Dis Nos 12/14/2009 [facility], GILBERTO A 296.90 Mo Mood Dis Nos 12/14/2009 296.90 Mo Mood Dis Nos 12/14/2009 [facility], GILBERTO A 296.90 Mo Mood Dis Nos 12/14/2009 SILVA VALENZUELA APRN N 296.90 Mo Mood Dis Nos 12/14/2009 OZZIE GRADY, MARLIN S 296.90 Mo Mood Dis Nos 12/14/2009 [facility], GILBERTO A 296.90 Mo Mood Dis Nos 12/14/2009 PORRAS DO, DERICK K 296.90 Mo Mood Dis Nos 12/14/2009 PORRAS DO, DERICK K 296.90 Mo Mood Dis Nos 12/14/2009 ZAYRA GOMEZ MD 296.90 Mo Mood Dis Nos 12/14/2009 ZAYRA GOMEZ MD 296.90 Mo Mood Dis Nos 12/14/2009 BRISEIDA HORNE APRNA S 296.90 Mo Mood Dis Nos 12/14/2009 ZAYRA GOMEZ MD 296.90 Mo Mood Dis Nos 12/14/2009 ZAYRA GOMEZ MD 296.90 Mo Mood Dis Nos 12/14/2009 ZAYRA GOMEZ MD 296.90 Mo Mood Dis Nos 12/14/2009 BENITEZ SKINNER APRN 296.90 Mo Mood Dis Nos 12/14/2009 ZAYRA GOMEZ MD 296.90 Mo Mood Dis Nos 12/14/2009 [facility], GILBERTO A 296.90 Mo Mood Dis Nos 12/14/2009 ALAN SUAREZ MD 296.90 Mo Mood Dis Nos 12/14/2009 ALAN SUAREZ MD 296.90 Mo Mood Dis Nos 12/14/2009 ZAYRA GOMEZ MD 296.90 Mo Mood Dis Nos 12/14/2009 ALAN SUAREZ MD 296.90 Mo Mood Dis Nos 12/14/2009 JUDSON APRN, GILBERTO A 296.90 Mo Mood Dis Nos 12/14/2009 PORRAS DO, DERICK K 296.90 Mo Mood Dis Nos 12/14/2009 DERICK PORRAS DO Saran 296.90 Mo Mood Dis Nos 12/14/2009 JAMIA BINGHAM APRN 296.90 Mo Mood Dis Nos 05/14/2010 DERICK PORRAS DO Saran 626.0 Absence Of Menstruation 05/14/2010 DERICK PORRAS DO Saran 626.0 Absence Of Menstruation 05/14/2010 626.0 Absence Of Menstruation 05/14/2010 DERICK PORRAS DO Saran 626.0 Absence Of Menstruation 05/14/2010 626.0 Absence Of Menstruation 05/14/2010 626.0 Absence Of Menstruation 05/14/2010 626.0 Absence Of Menstruation 05/14/2010 DERICK PORRAS DO Saran 626.0 Absence Of Menstruation 05/14/2010 626.0 Absence Of Menstruation 05/14/2010 626.0 Absence Of Menstruation 05/14/2010 626.0 Absence Of Menstruation 05/14/2010 626.0 Absence Of Menstruation 05/14/2010 626.0 Absence Of Menstruation 05/14/2010 626.0 Absence Of Menstruation 05/14/2010 626.0 Absence Of Menstruation 05/14/2010 626.0 Absence Of Menstruation 05/14/2010 626.0 Absence Of Menstruation 05/14/2010 626.0 Absence Of Menstruation 05/14/2010 626.0 Absence Of Menstruation 05/14/2010 626.0 Absence Of Menstruation 05/14/2010 626.0 Absence Of Menstruation 05/14/2010 DERICK PORRAS DO K 626.0 Absence Of Menstruation 05/14/2010 JUDSON YSABEL GILBERTO A 626.0 Absence Of Menstruation 05/14/2010 MARLIN HORNE APRN S 626.0 Absence Of Menstruation 05/14/2010 JUDSON YSABEL GILBERTO A 626.0 Absence Of Menstruation 05/14/2010 JUDSONCharlee GRADY GILBERTO A 626.0 Absence Of Menstruation 05/14/2010 626.0 Absence Of Menstruation 05/14/2010 JUDSON GRADY GILBERTO A 626.0 Absence Of Menstruation 05/14/2010 [facility], SILVA N 626.0 Absence Of Menstruation 05/14/2010 OZZIE GRADY MARLIN S 626.0 Absence Of Menstruation 05/14/2010 GILBERTO ROPER APRN A 626.0 Absence Of Menstruation 05/14/2010 PORRAS DO, DERICK K 626.0 Absence Of Menstruation 05/14/2010 PORRAS DO, DERICK K 626.0 Absence Of Menstruation 05/14/2010 ZAYRA GOMEZ MD 626.0 Absence Of Menstruation 05/14/2010 ZAYRA GOMEZ MD 626.0 Absence Of Menstruation 05/14/2010 MARLIN HORNE APRN S 626.0 Absence Of Menstruation 05/14/2010 ZAYRA GOMEZ MD 626.0 Absence Of Menstruation 05/14/2010 ZAYRA GOMEZ MD 626.0 Absence Of Menstruation 05/14/2010 ZAYRA GOMEZ MD 626.0 Absence Of Menstruation 05/14/2010 BENITEZ SKINNER APRN 626.0 Absence Of Menstruation 05/14/2010 ZAYRA GOMEZ MD 626.0 Absence Of Menstruation 05/14/2010 GILBERTO ROPER APRN A 626.0 Absence Of Menstruation 05/14/2010 ALAN SUAREZ MD N 626.0 Absence Of Menstruation 05/14/2010 ALAN SUAREZ MD 626.0 Absence Of Menstruation 05/14/2010 ZAYRA GOMEZ MD 626.0 Absence Of Menstruation 05/14/2010 ALAN SUAREZ MD 626.0 Absence Of Menstruation 05/14/2010 GILBERTO ROPER APRN A 626.0 Absence Of Menstruation 05/14/2010 PORRAS DO, DERICK K 626.0 Absence Of Menstruation 05/14/2010 PORRAS DO, DERICK K 626.0 Absence Of Menstruation 05/14/2010 JAMIA BINGHAM APRN 626.0 Absence Of Menstruation 06/12/2010 PORRAS DO, DERICK K 789.00 Abdominal Pain Unspecified Site 06/12/2010 PORRAS DO, DERICK K 789.00 Abdominal Pain Unspecified Site 06/12/2010 789.00 Abdominal Pain Unspecified Site 06/12/2010 DERICK PORRAS DO K 789.00 Abdominal Pain Unspecified Site 06/12/2010 789.00 Abdominal Pain Unspecified Site 06/12/2010 789.00 Abdominal Pain Unspecified Site 06/12/2010 789.00 Abdominal Pain Unspecified Site 06/12/2010 DERICK PORRAS DO K 789.00 Abdominal Pain Unspecified Site 06/12/2010 789.00 Abdominal Pain Unspecified Site 06/12/2010 789.00 Abdominal Pain Unspecified Site 06/12/2010 789.00 Abdominal Pain Unspecified Site 06/12/2010 789.00 Abdominal Pain Unspecified Site 06/12/2010 789.00 Abdominal Pain Unspecified Site 06/12/2010 789.00 Abdominal Pain Unspecified Site 06/12/2010 789.00 Abdominal Pain Unspecified Site 06/12/2010 789.00 Abdominal Pain Unspecified Site 06/12/2010 789.00 Abdominal Pain Unspecified Site 06/12/2010 789.00 Abdominal Pain Unspecified Site 06/12/2010 789.00 Abdominal Pain Unspecified Site 06/12/2010 789.00 Abdominal Pain Unspecified Site 06/12/2010 789.00 Abdominal Pain Unspecified Site 06/12/2010 DERICK PORRAS DO K 789.00 Abdominal Pain Unspecified Site 06/12/2010 OSIEL ROPER APRNIDI A 789.00 Abdominal Pain Unspecified Site 06/12/2010 MARLIN HORNE APRN S 789.00 Abdominal Pain Unspecified Site 06/12/2010 JUDSON GRADY, GILBERTO A 789.00 Abdominal Pain Unspecified Site 06/12/2010 OSIEL ROPER APRNIDI A 789.00 Abdominal Pain Unspecified Site 06/12/2010 789.00 Abdominal Pain Unspecified Site 06/12/2010 OSIEL ROPER APRNIDI A 789.00 Abdominal Pain Unspecified Site 06/12/2010 [facility] APRN 789.00 Abdominal Pain Unspecified Site 06/12/2010 BRISEIDA HORNE APRNA S 789.00 Abdominal Pain Unspecified Site 06/12/2010 OSIEL ROPER APRNIDI A 789.00 Abdominal Pain Unspecified Site 06/12/2010 PORRAS DO, DERICK K 789.00 Abdominal Pain Unspecified Site 06/12/2010 PORRAS DO, DERICK K 789.00 Abdominal Pain Unspecified Site 06/12/2010 JASON FINNEY, ZAYRA Shea 789.00 Abdominal Pain Unspecified Site 06/12/2010 JASON FINNEY, ZAYRA Shea 789.00 Abdominal Pain Unspecified Site 06/12/2010 MARLIN HORNE APRN 789.00 Abdominal Pain Unspecified Site 06/12/2010 JASON FINNEY, ZAYRA Shea 789.00 Abdominal Pain Unspecified Site 06/12/2010 JASON FINNEY, ZAYRA Shea 789.00 Abdominal Pain Unspecified Site 06/12/2010 JASON FINNEY, ZAYRA Shea 789.00 Abdominal Pain Unspecified Site 06/12/2010 BENITEZ SKINNER APRN 789.00 Abdominal Pain Unspecified Site 06/12/2010 JASON FINNEY, ZAYRA Shea 789.00 Abdominal Pain Unspecified Site 06/12/2010 GILBERTO ROPER APRN A 789.00 Abdominal Pain Unspecified Site 06/12/2010 DANIELA FINNEY, ALAN N 789.00 Abdominal Pain Unspecified Site 06/12/2010 DANIELA FINNEY, ALAN N 789.00 Abdominal Pain Unspecified Site 06/12/2010 JASON FINNEY, ZAYRA Shea 789.00 Abdominal Pain Unspecified Site 06/12/2010 DANIELA FINNEY, ALAN N 789.00 Abdominal Pain Unspecified Site 06/12/2010 JUDSON GRADY, GILBERTO A 789.00 Abdominal Pain Unspecified Site 06/12/2010 PORRAS DO, DERICK K 789.00 Abdominal Pain Unspecified Site 06/12/2010 PORRAS DO, DERICK K 789.00 Abdominal Pain Unspecified Site 06/12/2010 JAMIA BINGHAM APRN 789.00 Abdominal Pain Unspecified Site 10/20/2010 PORRAS DO, DERICK K V72.42 Examination Or Test Positive Result 10/20/2010 PORRAS DO, DERICK K V72.42 Examination Or Test Positive Result 10/20/2010 V72.42 Examination Or Test Positive Result 10/20/2010 PORRAS DO, DERICK K V72.42 Examination Or Test Positive Result 10/20/2010 V72.42 Examination Or Test Positive Result 10/20/2010 V72.42 Examination Or Test Positive Result 10/20/2010 V72.42 Examination Or Test Positive Result 10/20/2010 PORRAS HOSEA CHARLESA K V72.42 Examination Or Test Positive Result 10/20/2010 V72.42 Examination Or Test Positive Result 10/20/2010 V72.42 Examination Or Test Positive Result 10/20/2010 V72.42 Examination Or Test Positive Result 10/20/2010 V72.42 Examination Or Test Positive Result 10/20/2010 V72.42 Examination Or Test Positive Result 10/20/2010 V72.42 Examination Or Test Positive Result 10/20/2010 V72.42 Examination Or Test Positive Result 10/20/2010 V72.42 Examination Or Test Positive Result 10/20/2010 V72.42 Examination Or Test Positive Result 10/20/2010 V72.42 Examination Or Test Positive Result 10/20/2010 V72.42 Examination Or Test Positive Result 10/20/2010 V72.42 Examination Or Test Positive Result 10/20/2010 V72.42 Examination Or Test Positive Result 10/20/2010 HOSEA PORRAS DOA K V72.42 Examination Or Test Positive Result 10/20/2010 [facility] GILBERTO A V72.42 Examination Or Test Positive Result 10/20/2010 OZZIE GRADY MARLIN S V72.42 Examination Or Test Positive Result 10/20/2010 [facility], GILBERTO A V72.42 Examination Or Test Positive Result 10/20/2010 [facility], GILBERTO A V72.42 Examination Or Test Positive Result 10/20/2010 V72.42 Examination Or Test Positive Result 10/20/2010 [facility], GILBERTO A V72.42 Examination Or Test Positive Result 10/20/2010 SILVA VALENZUELA APRN V72.42 Examination Or Test Positive Result 10/20/2010 [facility], MARLIN S V72.42 Examination Or Test Positive Result 10/20/2010 [facility], GILBERTO A V72.42 Examination Or Test Positive Result 10/20/2010 PORRAS HOSEA CHARLESA K V72.42 Examination Or Test Positive Result 10/20/2010 DERICK PORRAS DO V72.42 Examination Or Test Positive Result 10/20/2010 ZAYRA GOMEZ MD V72.42 Examination Or Test Positive Result 10/20/2010 ZAYRA GOMEZ MD V72.42 Examination Or Test Positive Result 10/20/2010 MARLIN HORNE APRN V72.42 Examination Or Test Positive Result 10/20/2010 ZAYRA GOMEZ MD V72.42 Examination Or Test Positive Result 10/20/2010 ZAYRA GOMEZ MD V72.42 Examination Or Test Positive Result 10/20/2010 ZAYRA GOMEZ MD V72.42 Examination Or Test Positive Result 10/20/2010 BENITEZ SKINNER APRN V72.42 Examination Or Test Positive Result 10/20/2010 ZAYRA GOMEZ MD V72.42 Examination Or Test Positive Result 10/20/2010 GILBERTO ROPER APRN V72.42 Examination Or Test Positive Result 10/20/2010 ALAN SUAREZ MD V72.42 Examination Or Test Positive Result 10/20/2010 ALAN SUAREZ MD V72.42 Examination Or Test Positive Result 10/20/2010 ZAYRA GOMEZ MD V72.42 Examination Or Test Positive Result 10/20/2010 ALAN SUAREZ MD V72.42 Examination Or Test Positive Result 10/20/2010 GILBERTO ROPER APRN V72.42 Examination Or Test Positive Result 10/20/2010 DERICK PORRAS DO V72.42 Examination Or Test Positive Result 10/20/2010 DERICK PORRAS DO V72.42 Examination Or Test Positive Result 10/20/2010 JAMIA BINGHAM APRN V72.42 Examination Or Test Positive Result 10/22/2010 DERICK PORRAS DO K 633.00 Abdominal Without Intrauterine 10/22/2010 PORRAS HOSEA CHARLESA K 633.00 Abdominal Without Intrauterine 10/22/2010 633.00 Abdominal Without Intrauterine 10/22/2010 DERICK PORRAS DO K 633.00 Abdominal Without Intrauterine 10/22/2010 633.00 Abdominal Without Intrauterine 10/22/2010 633.00 Abdominal Without Intrauterine 10/22/2010 633.00 Abdominal Without Intrauterine 10/22/2010 CHIQUITA DODERICK K 633.00 Abdominal Without Intrauterine 10/22/2010 633.00 Abdominal Without Intrauterine 10/22/2010 633.00 Abdominal Without Intrauterine 10/22/2010 633.00 Abdominal Without Intrauterine 10/22/2010 633.00 Abdominal Without Intrauterine 10/22/2010 633.00 Abdominal Without Intrauterine 10/22/2010 633.00 Abdominal Without Intrauterine 10/22/2010 633.00 Abdominal Without Intrauterine 10/22/2010 633.00 Abdominal Without Intrauterine 10/22/2010 633.00 Abdominal Without Intrauterine 10/22/2010 633.00 Abdominal Without Intrauterine 10/22/2010 633.00 Abdominal Without Intrauterine 10/22/2010 633.00 Abdominal Without Intrauterine 10/22/2010 633.00 Abdominal Without Intrauterine 10/22/2010 CHIQUITA DODERICK K 633.00 Abdominal Without Intrauterine 10/22/2010 [facility], GILBERTO A 633.00 Abdominal Without Intrauterine 10/22/2010 [facility], MARLIN S 633.00 Abdominal Without Intrauterine 10/22/2010 [facility], GILBERTO A 633.00 Abdominal Without Intrauterine 10/22/2010 [facility], GILBERTO A 633.00 Abdominal Without Intrauterine 10/22/2010 633.00 Abdominal Without Intrauterine 10/22/2010 [facility], GILBERTO A 633.00 Abdominal Without Intrauterine 10/22/2010 [facility], SILVA N 633.00 Abdominal Without Intrauterine 10/22/2010 [facility], MARLIN S 633.00 Abdominal Without Intrauterine 10/22/2010 [facility], GILBERTO A 633.00 Abdominal Without Intrauterine 10/22/2010 CHIQUITA DODERICK K 633.00 Abdominal Without Intrauterine 10/22/2010 CHIQUITA DODERICK K 633.00 Abdominal Without Intrauterine 10/22/2010 ZAYRA GOMEZ MD 633.00 Abdominal Without Intrauterine 10/22/2010 ZAYRA GOMEZ MD 633.00 Abdominal Without Intrauterine 10/22/2010 MARLIN HORNE APRN 633.00 Abdominal Without Intrauterine 10/22/2010 ZAYRA GOMEZ MD 633.00 Abdominal Without Intrauterine 10/22/2010 ZAYRA GOMEZ MD 633.00 Abdominal Without Intrauterine 10/22/2010 ZAYRA GOMEZ MD 633.00 Abdominal Without Intrauterine 10/22/2010 BENITEZ SKINNER APRN 633.00 Abdominal Without Intrauterine 10/22/2010 ZAYRA GOMEZ MD 633.00 Abdominal Without Intrauterine 10/22/2010 GILBERTO ROPER APRN A 633.00 Abdominal Without Intrauterine 10/22/2010 DANIELA FINNEY, ALAN Deshpande 633.00 Abdominal Without Intrauterine 10/22/2010 DANIELA FINNEY, ALAN Deshpande 633.00 Abdominal Without Intrauterine 10/22/2010 ZAYRA GOMEZ MD 633.00 Abdominal Without Intrauterine 10/22/2010 DANIELA FINNEY, ALAN Deshpande 633.00 Abdominal Without Intrauterine 10/22/2010 GILBERTO ROPER APRN A 633.00 Abdominal Without Intrauterine 10/22/2010 PORRAS DO, DERICK K 633.00 Abdominal Without Intrauterine 10/22/2010 PORRAS DO, DERICK K 633.00 Abdominal Without Intrauterine 10/22/2010 JAMIA BINGHAM APRN 633.00 Abdominal Without Intrauterine 11/01/2010 CHIQUITA DO, DERICK K 640.00 Threatened 11/01/2010 CHIQUITA DOHOSEAA K 640.00 Threatened 11/01/2010 640.00 Threatened 11/01/2010 PORRAS DOHOSEAA K 640.00 Threatened 11/01/2010 640.00 Threatened 11/01/2010 640.00 Threatened 11/01/2010 640.00 Threatened 11/01/2010 PORRAS DO, DERICK K 640.00 Threatened 11/01/2010 640.00 Threatened 11/01/2010 640.00 Threatened 11/01/2010 640.00 Threatened 11/01/2010 640.00 Threatened 11/01/2010 640.00 Threatened 11/01/2010 640.00 Threatened 11/01/2010 640.00 Threatened 11/01/2010 640.00 Threatened 11/01/2010 640.00 Threatened 11/01/2010 640.00 Threatened 11/01/2010 640.00 Threatened 11/01/2010 640.00 Threatened 11/01/2010 640.00 Threatened 11/01/2010 [place]SEA PORRAS DOA K 640.00 Threatened 11/01/2010 [facility], GILBERTO A 640.00 Threatened 11/01/2010 [facility], MARLIN S 640.00 Threatened 11/01/2010 [facility], GILBERTO A 640.00 Threatened 11/01/2010 [facility], GILBERTO A 640.00 Threatened 11/01/2010 640.00 Threatened 11/01/2010 [facility], GILBERTO A 640.00 Threatened 11/01/2010 [facility], SILVA N 640.00 Threatened 11/01/2010 [facility], MALRIN S 640.00 Threatened 11/01/2010 [facility], GILBERTO A 640.00 Threatened 11/01/2010 HOSEA PORRAS DOA K 640.00 Threatened 11/01/2010 HOSEA PORRAS DOA K 640.00 Threatened 11/01/2010 ZAYRA GOMEZ MD 640.00 Threatened 11/01/2010 ZAYRA GOMEZ MD 640.00 Threatened 11/01/2010 [facility] CL[facility], MARLIN S 640.00 Threatened 11/01/2010 ZAYRA GOMEZ MD 640.00 Threatened 11/01/2010 ZAYRA GOMEZ MD 640.00 Threatened 11/01/2010 ZAYRA GOMEZ MD 640.00 Threatened 11/01/2010 BENITEZ SKINNER APRN 640.00 Threatened 11/01/2010 ZAYRA GOMEZ MD 640.00 Threatened 11/01/2010 [facility], GILBERTO A 640.00 Threatened 11/01/2010 ALAN SUAREZ MD 640.00 Threatened 11/01/2010 ALAN SUAREZ MD 640.00 Threatened 11/01/2010 ZAYRA GOMEZ MD 640.00 Threatened 11/01/2010 ALAN SUAREZ MD N 640.00 Threatened 11/01/2010 [facility], GILBERTO A 640.00 Threatened 11/01/2010 PORRAS DO, DERICK K 640.00 Threatened 11/01/2010 PORRAS DO, DERICK K 640.00 Threatened 11/01/2010 [facility] CLERKJAMIA 640.00 Threatened 11/14/2010 PORRAS DO, DERICK K V22.0 , Normal First 11/14/2010 PORRAS DO, DERICK K V22.0 , Normal First 11/14/2010 V22.0 , Normal First 11/14/2010 PORRAS DO, DERICK K V22.0 , Normal First 11/14/2010 V22.0 , Normal First 11/14/2010 V22.0 , Normal First 11/14/2010 V22.0 , Normal First 11/14/2010 PORRAS DO, DERICK K V22.0 , Normal First 11/14/2010 V22.0 , Normal First 11/14/2010 V22.0 , Normal First 11/14/2010 V22.0 , Normal First 11/14/2010 V22.0 , Normal First 11/14/2010 V22.0 , Normal First 11/14/2010 V22.0 , Normal First 11/14/2010 V22.0 , Normal First 11/14/2010 V22.0 , Normal First 11/14/2010 V22.0 , Normal First 11/14/2010 V22.0 , Normal First 11/14/2010 V22.0 , Normal First 11/14/2010 V22.0 , Normal First 11/14/2010 V22.0 , Normal First 11/14/2010 PORRAS DO, DERICK K V22.0 , Normal First 11/14/2010 [facility], GILBERTO A V22.0 , Normal First 11/14/2010 [facility], MARLIN S V22.0 , Normal First 11/14/2010 [facility], GILBERTO A V22.0 , Normal First 11/14/2010 [facility], GILBERTO A V22.0 , Normal First 11/14/2010 V22.0 , Normal First 11/14/2010 [facility], GILBERTO A V22.0 , Normal First 11/14/2010 ZEHRA MENDOZA [facility] CL[facility], SILVA N V22.0 , Normal First 11/14/2010 OZZIE GRADY, MARLIN S V22.0 , Normal First 11/14/2010 [facility], GILBERTO A V22.0 , Normal First 11/14/2010 PORRAS DO, DERICK K V22.0 , Normal First 11/14/2010 PORRAS DO, DERICK K V22.0 , Normal First 11/14/2010 ZAYRA GOMEZ MD V22.0 , Normal First 11/14/2010 ZAYRA GOMEZ MD V22.0 , Normal First 11/14/2010 OZZIE GRADY, MARLIN S V22.0 , Normal First 11/14/2010 ZAYRA GOMEZ MD V22.0 , Normal First 11/14/2010 ZAYRA GOMEZ MD V22.0 , Normal First 11/14/2010 ZAYRA GOMEZ MD V22.0 , Normal First 11/14/2010 BENITEZ SKINNER APRN D V22.0 , Normal First 11/14/2010 ZAYRA GOMEZ MD V22.0 , Normal First 11/14/2010 JUDSON GRADY, GILBERTO A V22.0 , Normal First 11/14/2010 ALAN SUAREZ MD N V22.0 , Normal First 11/14/2010 ALAN SUAREZ MD N V22.0 , Normal First 11/14/2010 ZAYRA GOMEZ MD V22.0 , Normal First 11/14/2010 ALAN SUAREZ MD N V22.0 , Normal First 11/14/2010 JUDSON GRADY, GILBERTO A V22.0 , Normal First 11/14/2010 PORRAS DO, DERICK K V22.0 , Normal First 11/14/2010 PORRAS DO, DERICK K V22.0 , Normal First 11/14/2010 [facility], JAMIA L V22.0 , Normal First 11/22/2010 PORRAS DO, DERICK K 616.10 Vaginitis Vulvovaginitis Unspecified 11/22/2010 DERICK PORRAS DO 616.10 Vaginitis Vulvovaginitis Unspecified 11/22/2010 616.10 Vaginitis Vulvovaginitis Unspecified 11/22/2010 DERICK PORRAS DO K 616.10 Vaginitis Vulvovaginitis Unspecified 11/22/2010 616.10 Vaginitis Vulvovaginitis Unspecified 11/22/2010 616.10 Vaginitis Vulvovaginitis Unspecified 11/22/2010 616.10 Vaginitis Vulvovaginitis Unspecified 11/22/2010 DERICK PORRAS DO K 616.10 Vaginitis Vulvovaginitis Unspecified 11/22/2010 616.10 Vaginitis Vulvovaginitis Unspecified 11/22/2010 616.10 Vaginitis Vulvovaginitis Unspecified 11/22/2010 616.10 Vaginitis Vulvovaginitis Unspecified 11/22/2010 616.10 Vaginitis Vulvovaginitis Unspecified 11/22/2010 616.10 Vaginitis Vulvovaginitis Unspecified 11/22/2010 616.10 Vaginitis Vulvovaginitis Unspecified 11/22/2010 616.10 Vaginitis Vulvovaginitis Unspecified 11/22/2010 616.10 Vaginitis Vulvovaginitis Unspecified 11/22/2010 616.10 Vaginitis Vulvovaginitis Unspecified 11/22/2010 616.10 Vaginitis Vulvovaginitis Unspecified 11/22/2010 616.10 Vaginitis Vulvovaginitis Unspecified 11/22/2010 616.10 Vaginitis Vulvovaginitis Unspecified 11/22/2010 616.10 Vaginitis Vulvovaginitis Unspecified 11/22/2010 DERICK PORRAS DO K 616.10 Vaginitis Vulvovaginitis Unspecified 11/22/2010 GILBERTO ROPER APRN A 616.10 Vaginitis Vulvovaginitis Unspecified 11/22/2010 MARLIN HORNE APRN 616.10 Vaginitis Vulvovaginitis Unspecified 11/22/2010 GILBERTO ROPER APRN A 616.10 Vaginitis Vulvovaginitis Unspecified 11/22/2010 [facility], GILBERTO A 616.10 Vaginitis Vulvovaginitis Unspecified 11/22/2010 616.10 Vaginitis Vulvovaginitis Unspecified 11/22/2010 JUDSONTRENT HERNÁNDEZN, GILBERTO A 616.10 Vaginitis Vulvovaginitis Unspecified 11/22/2010 [facility] CITY[facility] YSABEL, SILVA N 616.10 Vaginitis Vulvovaginitis Unspecified 11/22/2010 OZZIE GRADY, MARLIN S 616.10 Vaginitis Vulvovaginitis Unspecified 11/22/2010 JUDSON HERNÁNDEZN, GILBERTO A 616.10 Vaginitis Vulvovaginitis Unspecified 11/22/2010 DERICK PORRAS DO K 616.10 Vaginitis Vulvovaginitis Unspecified 11/22/2010 DERICK PORRAS DO K 616.10 Vaginitis Vulvovaginitis Unspecified 11/22/2010 ZAYRA GOMEZ MD 616.10 Vaginitis Vulvovaginitis Unspecified 11/22/2010 ZAYRA GOMEZ MD 616.10 Vaginitis Vulvovaginitis Unspecified 11/22/2010 OZZIE GRADY, MARLIN S 616.10 Vaginitis Vulvovaginitis Unspecified 11/22/2010 ZAYRA GOMEZ MD 616.10 Vaginitis Vulvovaginitis Unspecified 11/22/2010 ZAYRA GOMEZ MD 616.10 Vaginitis Vulvovaginitis Unspecified 11/22/2010 ZAYRA GOMEZ MD 616.10 Vaginitis Vulvovaginitis Unspecified 11/22/2010 BENITEZ SKINNER APRN 616.10 Vaginitis Vulvovaginitis Unspecified 11/22/2010 ZAYRA GOMEZ MD 616.10 Vaginitis Vulvovaginitis Unspecified 11/22/2010 JUDSON GRADY, GILBERTO A 616.10 Vaginitis Vulvovaginitis Unspecified 11/22/2010 ALAN SUAREZ MD 616.10 Vaginitis Vulvovaginitis Unspecified 11/22/2010 DANIELA MD, ALAN N 616.10 Vaginitis Vulvovaginitis Unspecified 11/22/2010 JASON FINNEY, ZAYRA Shea 616.10 Vaginitis Vulvovaginitis Unspecified 11/22/2010 DANIELA FINNEY, ALAN N 616.10 Vaginitis Vulvovaginitis Unspecified 11/22/2010 JUDSON GRADY, GILBERTO A 616.10 Vaginitis Vulvovaginitis Unspecified 11/22/2010 DERICK PORRAS DO 616.10 Vaginitis Vulvovaginitis Unspecified 11/22/2010 DERICK PORRAS DO 616.10 Vaginitis Vulvovaginitis Unspecified 11/22/2010 JAMIA BINGHAM APRN 616.10 Vaginitis Vulvovaginitis Unspecified 12/05/2010 DERICK PORRAS DO V04.81 Flu Shot 12/05/2010 DERICK PORRAS DO V04.81 Flu Shot 12/05/2010 V04.81 Flu Shot 12/05/2010 DERICK PORRAS DO V04.81 Flu Shot 12/05/2010 V04.81 Flu Shot 12/05/2010 V04.81 Flu Shot 12/05/2010 V04.81 Flu Shot 12/05/2010 DERICK PORRAS DO V04.81 Flu Shot 12/05/2010 V04.81 Flu Shot 12/05/2010 V04.81 Flu Shot 12/05/2010 V04.81 Flu Shot 12/05/2010 V04.81 Flu Shot 12/05/2010 V04.81 Flu Shot 12/05/2010 V04.81 Flu Shot 12/05/2010 V04.81 Flu Shot 12/05/2010 V04.81 Flu Shot 12/05/2010 V04.81 Flu Shot 12/05/2010 V04.81 Flu Shot 12/05/2010 V04.81 Flu Shot 12/05/2010 V04.81 Flu Shot 12/05/2010 V04.81 Flu Shot 12/05/2010 DERICK PORRAS DO V04.81 Flu Shot 12/05/2010 GILBERTO ROPER APRN A V04.81 Flu Shot 12/05/2010 MARLIN HORNE APRN V04.81 Flu Shot 12/05/2010 [facility], GILBERTO A V04.81 Flu Shot 12/05/2010 [facility], GILBERTO A V04.81 Flu Shot 12/05/2010 V04.81 Flu Shot 12/05/2010 [facility], GILBERTO A V04.81 Flu Shot 12/05/2010 ZEHRA MENDOZA APRN, SILVA N V04.81 Flu Shot 12/05/2010 OZZIE GRADY, MARLIN S V04.81 Flu Shot 12/05/2010 [facility], GILBERTO A V04.81 Flu Shot 12/05/2010 PORRAS DO, DERICK K V04.81 Flu Shot 12/05/2010 PORRAS DO, DERICK K V04.81 Flu Shot 12/05/2010 JASON FINNEY, ZAYRA Shea V04.81 Flu Shot 12/05/2010 JASON FINNEY, ZAYRA Shea V04.81 Flu Shot 12/05/2010 OZZIE GRADY, MARLIN S V04.81 Flu Shot 12/05/2010 JASON FINNEY, ZAYRA Shea V04.81 Flu Shot 12/05/2010 JASON FINNEY, ZAYRA Shea V04.81 Flu Shot 12/05/2010 JASON FINNEY, ZAYRA Shea V04.81 Flu Shot 12/05/2010 BENITEZ SKINNER APRN V04.81 Flu Shot 12/05/2010 JASON FINNEY, ZAYRA Shea V04.81 Flu Shot 12/05/2010 [facility], GILBERTO A V04.81 Flu Shot 12/05/2010 DANIELA FINNEY, ALAN N V04.81 Flu Shot 12/05/2010 DANIELA FINNEY, ALAN N V04.81 Flu Shot 12/05/2010 JASON FINNEY, ZAYRA Shea V04.81 Flu Shot 12/05/2010 DANIELA FINNEY, ALAN N V04.81 Flu Shot 12/05/2010 [facility], GILBERTO A V04.81 Flu Shot 12/05/2010 PORRAS DO, DERICK K V04.81 Flu Shot 12/05/2010 PORRAS DO, DERICK K V04.81 Flu Shot 12/05/2010 OTILIA GRADY, JAMIA L V04.81 Flu Shot 01/02/2011 PORRAS DO, DERICK K 785.2 UNDIAGNOSED CARDIAC MURMURS 01/02/2011 PORRAS DERICK CHARLES K 785.2 UNDIAGNOSED CARDIAC MURMURS 01/02/2011 785.2 UNDIAGNOSED CARDIAC MURMURS 01/02/2011 PORRAS DERICK CHARLES K 785.2 UNDIAGNOSED CARDIAC MURMURS 01/02/2011 785.2 UNDIAGNOSED CARDIAC MURMURS 01/02/2011 785.2 UNDIAGNOSED CARDIAC MURMURS 01/02/2011 785.2 UNDIAGNOSED CARDIAC MURMURS 01/02/2011 DERICK PORRAS DO K 785.2 UNDIAGNOSED CARDIAC MURMURS 01/02/2011 785.2 UNDIAGNOSED CARDIAC MURMURS 01/02/2011 785.2 UNDIAGNOSED CARDIAC MURMURS 01/02/2011 785.2 UNDIAGNOSED CARDIAC MURMURS 01/02/2011 785.2 UNDIAGNOSED CARDIAC MURMURS 01/02/2011 785.2 UNDIAGNOSED CARDIAC MURMURS 01/02/2011 785.2 UNDIAGNOSED CARDIAC MURMURS 01/02/2011 785.2 UNDIAGNOSED CARDIAC MURMURS 01/02/2011 785.2 UNDIAGNOSED CARDIAC MURMURS 01/02/2011 785.2 UNDIAGNOSED CARDIAC MURMURS 01/02/2011 785.2 UNDIAGNOSED CARDIAC MURMURS 01/02/2011 785.2 UNDIAGNOSED CARDIAC MURMURS 01/02/2011 785.2 UNDIAGNOSED CARDIAC MURMURS 01/02/2011 785.2 UNDIAGNOSED CARDIAC MURMURS 01/02/2011 PORRAS DERICK CHARLES K 785.2 UNDIAGNOSED CARDIAC MURMURS 01/02/2011 [facility], GILBERTO A 785.2 UNDIAGNOSED CARDIAC MURMURS 01/02/2011 MARLIN HORNE APRN S 785.2 UNDIAGNOSED CARDIAC MURMURS 01/02/2011 [facility], GILBERTO A 785.2 UNDIAGNOSED CARDIAC MURMURS 01/02/2011 [facility], GILBERTO A 785.2 UNDIAGNOSED CARDIAC MURMURS 01/02/2011 785.2 UNDIAGNOSED CARDIAC MURMURS 01/02/2011 [facility], GILBERTO A 785.2 UNDIAGNOSED CARDIAC MURMURS 01/02/2011 SILVA VALENZUELA APRN N 785.2 UNDIAGNOSED CARDIAC MURMURS 01/02/2011 MARLIN HORNE APRN S 785.2 UNDIAGNOSED CARDIAC MURMURS 01/02/2011 JUDSONTRENT GRADY GILBERTO A 785.2 UNDIAGNOSED CARDIAC MURMURS 01/02/2011 PORRAS DO DERICK K 785.2 UNDIAGNOSED CARDIAC MURMURS 01/02/2011 PORRAS DO DERICK K 785.2 UNDIAGNOSED CARDIAC MURMURS 01/02/2011 ZAYRA GOMEZ MD 785.2 UNDIAGNOSED CARDIAC MURMURS 01/02/2011 ZAYRA GOMEZ MD 785.2 UNDIAGNOSED CARDIAC MURMURS 01/02/2011 MARLIN HORNE APRN 785.2 UNDIAGNOSED CARDIAC MURMURS 01/02/2011 ZAYRA GOMEZ MD 785.2 UNDIAGNOSED CARDIAC MURMURS 01/02/2011 ZAYRA GOMEZ MD 785.2 UNDIAGNOSED CARDIAC MURMURS 01/02/2011 ZAYRA GOMEZ MD 785.2 UNDIAGNOSED CARDIAC MURMURS 01/02/2011 BENITEZ SKINNER APRN 785.2 UNDIAGNOSED CARDIAC MURMURS 01/02/2011 ZAYRA GOMEZ MD 785.2 UNDIAGNOSED CARDIAC MURMURS 01/02/2011 JUDSONGILBERTO NEWMAN APRN A 785.2 UNDIAGNOSED CARDIAC MURMURS 01/02/2011 ALAN SUAREZ MD 785.2 UNDIAGNOSED CARDIAC MURMURS 01/02/2011 ALAN SUAREZ MD N 785.2 UNDIAGNOSED CARDIAC MURMURS 01/02/2011 ZAYRA GOMEZ MD 785.2 UNDIAGNOSED CARDIAC MURMURS 01/02/2011 ALAN SUAREZ MD N 785.2 UNDIAGNOSED CARDIAC MURMURS 01/02/2011 GILBERTO ROPER APRN A 785.2 UNDIAGNOSED CARDIAC MURMURS 01/02/2011 PORRAS DO DERICK K 785.2 UNDIAGNOSED CARDIAC MURMURS 01/02/2011 PORRAS DO DERICK K 785.2 UNDIAGNOSED CARDIAC MURMURS 01/02/2011 JAMIA BINGHAM APRN 785.2 UNDIAGNOSED CARDIAC MURMURS 01/16/2011 CHIQUITA CHARLES DERICK K 692.9 Dermatitis Contact Unspecified 01/16/2011 PORRAS DO DERICK K 692.9 Dermatitis Contact Unspecified 01/16/2011 692.9 Dermatitis Contact Unspecified 01/16/2011 OPRRAS DO, DERICK K 692.9 Dermatitis Contact Unspecified 01/16/2011 692.9 Dermatitis Contact Unspecified 01/16/2011 692.9 Dermatitis Contact Unspecified 01/16/2011 692.9 Dermatitis Contact Unspecified 01/16/2011 PORRAS DO, DERICK K 692.9 Dermatitis Contact Unspecified 01/16/2011 692.9 Dermatitis Contact Unspecified 01/16/2011 692.9 Dermatitis Contact Unspecified 01/16/2011 692.9 Dermatitis Contact Unspecified 01/16/2011 692.9 Dermatitis Contact Unspecified 01/16/2011 692.9 Dermatitis Contact Unspecified 01/16/2011 692.9 Dermatitis Contact Unspecified 01/16/2011 692.9 Dermatitis Contact Unspecified 01/16/2011 692.9 Dermatitis Contact Unspecified 01/16/2011 692.9 Dermatitis Contact Unspecified 01/16/2011 692.9 Dermatitis Contact Unspecified 01/16/2011 692.9 Dermatitis Contact Unspecified 01/16/2011 692.9 Dermatitis Contact Unspecified 01/16/2011 692.9 Dermatitis Contact Unspecified 01/16/2011 PORRAS DO, DERICK K 692.9 Dermatitis Contact Unspecified 01/16/2011 [facility], GILBERTO A 692.9 Dermatitis Contact Unspecified 01/16/2011 BRISEIDA HORNE APRNA S 692.9 Dermatitis Contact Unspecified 01/16/2011 [facility], GILBERTO A 692.9 Dermatitis Contact Unspecified 01/16/2011 [facility], GILBERTO A 692.9 Dermatitis Contact Unspecified 01/16/2011 692.9 Dermatitis Contact Unspecified 01/16/2011 [facility], GILBERTO A 692.9 Dermatitis Contact Unspecified 01/16/2011 ZEHRA MENDOZA [facility] CLERKS[facility]VA Deshpande N 692.9 Dermatitis Contact Unspecified 01/16/2011 BRISEIDA HORNE APRNA S 692.9 Dermatitis Contact Unspecified 01/16/2011 [facility], GILBERTO A 692.9 Dermatitis Contact Unspecified 01/16/2011 PORRAS DO, DERICK K 692.9 Dermatitis Contact Unspecified 01/16/2011 PORRAS DO DERICK K 692.9 Dermatitis Contact Unspecified 01/16/2011 JASON FINNEY, ZAYRA Shea 692.9 Dermatitis Contact Unspecified 01/16/2011 JASON FINNEY, ZAYRA Shea 692.9 Dermatitis Contact Unspecified 01/16/2011 MARLIN HORNE APRN 692.9 Dermatitis Contact Unspecified 01/16/2011 JASON FINNEY, ZAYRA Shea 692.9 Dermatitis Contact Unspecified 01/16/2011 JASON FINNEY, ZAYRA Shea 692.9 Dermatitis Contact Unspecified 01/16/2011 JASON FINNEY, ZAYRA Shea 692.9 Dermatitis Contact Unspecified 01/16/2011 BENITEZ SKINNER APRN 692.9 Dermatitis Contact Unspecified 01/16/2011 JASON FINNEY, ZAYRA Shea 692.9 Dermatitis Contact Unspecified 01/16/2011 GILBERTO ROPER APRN A 692.9 Dermatitis Contact Unspecified 01/16/2011 DANIELA FINNEY, ALAN N 692.9 Dermatitis Contact Unspecified 01/16/2011 ALAN SUAREZ MD N 692.9 Dermatitis Contact Unspecified 01/16/2011 JASON FINNEY, ZAYRA Shea 692.9 Dermatitis Contact Unspecified 01/16/2011 DANIELA FINNEY, ALAN N 692.9 Dermatitis Contact Unspecified 01/16/2011 GILBERTO ROPER APRN A 692.9 Dermatitis Contact Unspecified 01/16/2011 HOSEA PORRAS DOA K 692.9 Dermatitis Contact Unspecified 01/16/2011 PORRAS DO DERICK K 692.9 Dermatitis Contact Unspecified 01/16/2011 JAMIA BINGHAM APRN 692.9 Dermatitis Contact Unspecified 04/27/2011 HOSEA PORRAS DOA K 599.0 Urinary Tract Infection Site Not Specified 04/27/2011 HOSEA PORRAS DOA K 599.0 Urinary Tract Infection Site Not Specified 04/27/2011 599.0 Urinary Tract Infection Site Not Specified 04/27/2011 HOSEA PORRAS DOA K 599.0 Urinary Tract Infection Site Not Specified 04/27/2011 599.0 Urinary Tract Infection Site Not Specified 04/27/2011 599.0 Urinary Tract Infection Site Not Specified 04/27/2011 599.0 Urinary Tract Infection Site Not Specified 04/27/2011 PORRAS HOSEA CHARLESA K 599.0 Urinary Tract Infection Site Not Specified 04/27/2011 599.0 Urinary Tract Infection Site Not Specified 04/27/2011 599.0 Urinary Tract Infection Site Not Specified 04/27/2011 599.0 Urinary Tract Infection Site Not Specified 04/27/2011 599.0 Urinary Tract Infection Site Not Specified 04/27/2011 599.0 Urinary Tract Infection Site Not Specified 04/27/2011 599.0 Urinary Tract Infection Site Not Specified 04/27/2011 599.0 Urinary Tract Infection Site Not Specified 04/27/2011 599.0 Urinary Tract Infection Site Not Specified 04/27/2011 599.0 Urinary Tract Infection Site Not Specified 04/27/2011 599.0 Urinary Tract Infection Site Not Specified 04/27/2011 599.0 Urinary Tract Infection Site Not Specified 04/27/2011 599.0 Urinary Tract Infection Site Not Specified 04/27/2011 599.0 Urinary Tract Infection Site Not Specified 04/27/2011 DERICK PORRAS DO K 599.0 Urinary Tract Infection Site Not Specified 04/27/2011 OSIEL ROPER APRNIDI A 599.0 Urinary Tract Infection Site Not Specified 04/27/2011 MARLIN HORNE APRN S 599.0 Urinary Tract Infection Site Not Specified 04/27/2011 JUDSONTRENT GRADY GILBERTO A 599.0 Urinary Tract Infection Site Not Specified 04/27/2011 JUDSON GRADY GILBERTO A 599.0 Urinary Tract Infection Site Not Specified 04/27/2011 599.0 Urinary Tract Infection Site Not Specified 04/27/2011 JUDSON GRADY GILBERTO A 599.0 Urinary Tract Infection Site Not Specified 04/27/2011 SILVA VALENZUELA APRN 599.0 Urinary Tract Infection Site Not Specified 04/27/2011 BRISEIDA HORNE APRNA S 599.0 Urinary Tract Infection Site Not Specified 04/27/2011 JUDSON GRADY GILBERTO A 599.0 Urinary Tract Infection Site Not Specified 04/27/2011 DERICK PORRAS DO 599.0 Urinary Tract Infection Site Not Specified 04/27/2011 DERICK PORRAS DO K 599.0 Urinary Tract Infection Site Not Specified 04/27/2011 ZAYRA GOMEZ MD 599.0 Urinary Tract Infection Site Not Specified 04/27/2011 ZAYRA GOMEZ MD 599.0 Urinary Tract Infection Site Not Specified 04/27/2011 MARLIN HORNE APRN 599.0 Urinary Tract Infection Site Not Specified 04/27/2011 ZAYRA GOMEZ MD 599.0 Urinary Tract Infection Site Not Specified 04/27/2011 ZAYRA GOMEZ MD 599.0 Urinary Tract Infection Site Not Specified 04/27/2011 ZAYRA GOMEZ MD 599.0 Urinary Tract Infection Site Not Specified 04/27/2011 BENITEZ SKINNER APRN 599.0 Urinary Tract Infection Site Not Specified 04/27/2011 ZAYRA GOMEZ MD 599.0 Urinary Tract Infection Site Not Specified 04/27/2011 GILBERTO ROPER APRN 599.0 Urinary Tract Infection Site Not Specified 04/27/2011 ALAN SUAREZ MD 599.0 Urinary Tract Infection Site Not Specified 04/27/2011 ALAN SUAREZ MD 599.0 Urinary Tract Infection Site Not Specified 04/27/2011 ZAYRA GOMEZ MD 599.0 Urinary Tract Infection Site Not Specified 04/27/2011 ALAN SUAREZ MD 599.0 Urinary Tract Infection Site Not Specified 04/27/2011 GILBERTO ROPER APRN 599.0 Urinary Tract Infection Site Not Specified 04/27/2011 PORRAS DO, DERICK K 599.0 Urinary Tract Infection Site Not Specified 04/27/2011 PORRAS DO, DERICK K 599.0 Urinary Tract Infection Site Not Specified 04/27/2011 JAMIA BINGHAM APRN 599.0 Urinary Tract Infection Site Not Specified 05/01/2011 PORRAS DO, DERICK K 791.5 Glycosuria 05/01/2011 PORRAS DO, DERICK K 791.5 Glycosuria 05/01/2011 791.5 Glycosuria 05/01/2011 PORRAS DO, DERICK K 791.5 Glycosuria 05/01/2011 791.5 Glycosuria 05/01/2011 791.5 Glycosuria 05/01/2011 791.5 Glycosuria 05/01/2011 PORRAS DO, DERICK K 791.5 Glycosuria 05/01/2011 791.5 Glycosuria 05/01/2011 791.5 Glycosuria 05/01/2011 791.5 Glycosuria 05/01/2011 791.5 Glycosuria 05/01/2011 791.5 Glycosuria 05/01/2011 791.5 Glycosuria 05/01/2011 791.5 Glycosuria 05/01/2011 791.5 Glycosuria 05/01/2011 791.5 Glycosuria 05/01/2011 791.5 Glycosuria 05/01/2011 791.5 Glycosuria 05/01/2011 791.5 Glycosuria 05/01/2011 791.5 Glycosuria 05/01/2011 PORRAS DO, DERICK K 791.5 Glycosuria 05/01/2011 [facility], GILBERTO A 791.5 Glycosuria 05/01/2011 OZZIEROMAINE GRADY, MARLIN S 791.5 Glycosuria 05/01/2011 JUDSON GRADY GILBERTO A 791.5 Glycosuria 05/01/2011 JUDSON GRADY GILBERTO A 791.5 Glycosuria 05/01/2011 791.5 Glycosuria 05/01/2011 JUDSON GRADY GILBERTO A 791.5 Glycosuria 05/01/2011 ZEHRA MENDOZA APRN SILVA N 791.5 Glycosuria 05/01/2011 OZZIE GRADY MARLIN S 791.5 Glycosuria 05/01/2011 JUDSON GRADY GILBERTO A 791.5 Glycosuria 05/01/2011 PORRAS DO DERICK K 791.5 Glycosuria 05/01/2011 PORRAS DO DERICK K 791.5 Glycosuria 05/01/2011 ZAYRA GOMEZ MD 791.5 Glycosuria 05/01/2011 ZAYRA GOMEZ MD 791.5 Glycosuria 05/01/2011 OZZIE GRADY MARLIN S 791.5 Glycosuria 05/01/2011 ZAYRA GOMEZ MD 791.5 Glycosuria 05/01/2011 ZAYRA GOMEZ MD 791.5 Glycosuria 05/01/2011 ZAYRA GOMEZ MD 791.5 Glycosuria 05/01/2011 BENITEZ SKINNER APRN 791.5 Glycosuria 05/01/2011 ZAYRA GOMEZ MD 791.5 Glycosuria 05/01/2011 JUDSON GRADY GILBERTO A 791.5 Glycosuria 05/01/2011 DANIELA FINNEY, ALAN Deshpande 791.5 Glycosuria 05/01/2011 ALAN SUAREZ MD 791.5 Glycosuria 05/01/2011 ZAYRA GOMEZ MD 791.5 Glycosuria 05/01/2011 ALAN SUAREZ MD 791.5 Glycosuria 05/01/2011 GILBERTO ROPER APRN 791.5 Glycosuria 05/01/2011 DERICK PORRAS DO 791.5 Glycosuria 05/01/2011 DERICK PORRAS DO 791.5 Glycosuria 05/01/2011 LUISClaudia YSABELJAMIA 791.5 Glycosuria 05/18/2011 Ot 648.93 05/18/2011 Ot 789.00 06/06/2011 Ot 623.5 06/06/2011 Ot 654.73 06/14/2011 Ot 644.03 06/14/2011 Ot 644.03 06/23/2011 Ot 041.09 06/23/2011 Ot 658.41 06/23/2011 Ot 659.71 06/23/2011 Ot 663.11 06/23/2011 Ot V27.0 08/07/2011 DERICK PORRAS DO V24.2 visit for: exam 08/07/2011 DERICK PORRAS DO V25.01 Oral Contraceptives 08/07/2011 DERICK PORRAS DO V24.2 Visit For: Exam 08/07/2011 DERICK PORRAS DO V25.01 Oral Contraceptives 08/07/2011 V24.2 Visit For: Exam 08/07/2011 V25.01 Oral Contraceptives 08/07/2011 DERICK PORRAS DO V24.2 Visit For: Exam 08/07/2011 DERICK PORRAS DO V25.01 Oral Contraceptives 08/07/2011 V24.2 Visit For: Exam 08/07/2011 V25.01 Oral Contraceptives 08/07/2011 V24.2 Visit For: Exam 08/07/2011 V25.01 Oral Contraceptives 08/07/2011 V24.2 Visit For: Exam 08/07/2011 V25.01 Oral Contraceptives 08/07/2011 DERICK PORRAS DO V24.2 Visit For: Exam 08/07/2011 DERICK PORRAS DO V25.01 Oral Contraceptives 08/07/2011 V24.2 Visit For: Exam 08/07/2011 V25.01 Oral Contraceptives 08/07/2011 V24.2 Visit For: Exam 08/07/2011 V25.01 Oral Contraceptives 08/07/2011 V24.2 Visit For: Exam 08/07/2011 V25.01 Oral Contraceptives 08/07/2011 V24.2 Visit For: Exam 08/07/2011 V25.01 Oral Contraceptives 08/07/2011 V24.2 Visit For: Exam 08/07/2011 V25.01 Oral Contraceptives 08/07/2011 V24.2 Visit For: Exam 08/07/2011 V25.01 Oral Contraceptives 08/07/2011 V24.2 Visit For: Exam 08/07/2011 V25.01 Oral Contraceptives 08/07/2011 V24.2 Visit For: Exam 08/07/2011 V25.01 Oral Contraceptives 08/07/2011 V24.2 Visit For: Exam 08/07/2011 V25.01 Oral Contraceptives 08/07/2011 V24.2 Visit For: Exam 08/07/2011 V25.01 Oral Contraceptives 08/07/2011 V24.2 Visit For: Exam 08/07/2011 V25.01 Oral Contraceptives 08/07/2011 V24.2 Visit For: Exam 08/07/2011 V25.01 Oral Contraceptives 08/07/2011 V24.2 Visit For: Exam 08/07/2011 V25.01 Oral Contraceptives 08/07/2011 DERICK PORRAS DO V24.2 Visit For: Exam 08/07/2011 DERICK PORRAS DO V25.01 Oral Contraceptives 08/07/2011 [facility] GILBERTO A V24.2 Visit For: Exam 08/07/2011 [facility], GILEBRTO A V25.01 Oral Contraceptives 08/07/2011 RAMEZ HORNE APRNNDA S V24.2 Visit For: Exam 08/07/2011 RAMEZ HORNE APRNNDA S V25.01 Oral Contraceptives 08/07/2011 [facility], GLIBERTO A V24.2 Visit For: Exam 08/07/2011 [facility], GILBERTO A V25.01 Oral Contraceptives 08/07/2011 [facility], GILBERTO A V24.2 Visit For: Exam 08/07/2011 [facility], GILBERTO A V25.01 Oral Contraceptives 08/07/2011 V24.2 Visit For: Exam 08/07/2011 V25.01 Oral Contraceptives 08/07/2011 [facility], GILBERTO A V24.2 Visit For: Exam 08/07/2011 [facility], GILBERTO A V25.01 Oral Contraceptives 08/07/2011 [facility], SILVA N V24.2 Visit For: Exam 08/07/2011 [facility], SILVA N V25.01 Oral Contraceptives 08/07/2011 OZZIE GRADY MARLIN S V24.2 Visit For: Exam 08/07/2011 OZZIE GRADY MARLIN S V25.01 Oral Contraceptives 08/07/2011 JUDSON HERNÁNDEZN, GILBERTO A V24.2 Visit For: Exam 08/07/2011 JUDSON HERNÁNDEZN, GILBERTO A V25.01 Oral Contraceptives 08/07/2011 PORRAS DO, DERICK K V24.2 Visit For: Exam 08/07/2011 PORRAS DO, DERICK K V25.01 Oral Contraceptives 08/07/2011 PORRAS DO, DERICK K V24.2 Visit For: Exam 08/07/2011 PORRAS DO, DERICK K V25.01 Oral Contraceptives 08/07/2011 ZAYRA GOMEZ MD V24.2 Visit For: Exam 08/07/2011 ZAYRA GOMEZ MD V25.01 Oral Contraceptives 08/07/2011 ZAYRA GOMEZ MD V24.2 Visit For: Exam 08/07/2011 ZAYRA GOMEZ MD V25.01 Oral Contraceptives 08/07/2011 RAMEZ HORNE APRNNDA S V24.2 Visit For: Exam 08/07/2011 OZZIE GRADY MARLIN S V25.01 Oral Contraceptives 08/07/2011 ZAYRA GOMEZ MD V24.2 Visit For: Exam 08/07/2011 ZAYRA GOMEZ MD V25.01 Oral Contraceptives 08/07/2011 ZAYRA GOMEZ MD V24.2 Visit For: Exam 08/07/2011 ZAYRA GOMEZ MD V25.01 Oral Contraceptives 08/07/2011 ZAYRA GOMEZ MD V24.2 Visit For: Exam 08/07/2011 ZAYRA GOMEZ MD V25.01 Oral Contraceptives 08/07/2011 BENITEZ SKINNER APRN V24.2 Visit For: Exam 08/07/2011 BENITEZ SKINNER APRN V25.01 Oral Contraceptives 08/07/2011 ZAYRA GOMEZ MD V24.2 Visit For: Exam 08/07/2011 ZAYRA GOMEZ MD V25.01 Oral Contraceptives 08/07/2011 GILBERTO ROPER APRN A V24.2 Visit For: Exam 08/07/2011 OSIEL ROPER APRNIDI A V25.01 Oral Contraceptives 08/07/2011 ALAN SUAREZ MD V24.2 Visit For: Exam 08/07/2011 ALAN SUAREZ MD N V25.01 Oral Contraceptives 08/07/2011 ALAN SUAREZ MD N V24.2 Visit For: Exam 08/07/2011 ALAN SUAREZ MD N V25.01 Oral Contraceptives 08/07/2011 ZAYRA GOMEZ MD V24.2 Visit For: Exam 08/07/2011 ZAYRA GOMEZ MD V25.01 Oral Contraceptives 08/07/2011 ALAN SUAREZ MD N V24.2 Visit For: Exam 08/07/2011 ALAN SUAREZ MD N V25.01 Oral Contraceptives 08/07/2011 JUDSON GRADY GILBERTO A V24.2 Visit For: Exam 08/07/2011 JUDSON GRADY GILBERTO A V25.01 Oral Contraceptives 08/07/2011 PORRAS DO DERICK K V24.2 Visit For: Exam 08/07/2011 PORRAS DO DERICK K V25.01 Oral Contraceptives 08/07/2011 PORRAS DO, DERICK K V24.2 Visit For: Exam 08/07/2011 PORRAS DO, DERICK K V25.01 Oral Contraceptives 08/07/2011 JAMIA BINGHAM APRN V24.2 Visit For: Exam 08/07/2011 JAMIA BINGHAM APRN V25.01 Oral Contraceptives 01/16/2012 DERICK PORRAS DO 465.9 ACUTE UPPER RESPIRATORY INFECTIONS OF UNSPECIFIED SITE 01/16/2012 DERICK PORRAS DO 465.9 Acute Upper Respiratory Infections Of Unspecified Site 01/16/2012 465.9 Acute Upper Respiratory Infections Of Unspecified Site 01/16/2012 DERICK PORRAS DO 465.9 Acute Upper Respiratory Infections Of Unspecified Site 01/16/2012 465.9 Acute Upper Respiratory Infections Of Unspecified Site 01/16/2012 465.9 Acute Upper Respiratory Infections Of Unspecified Site 01/16/2012 465.9 Acute Upper Respiratory Infections Of Unspecified Site 01/16/2012 DERICK PORRAS DO 465.9 Acute Upper Respiratory Infections Of Unspecified Site 01/16/2012 465.9 Acute Upper Respiratory Infections Of Unspecified Site 01/16/2012 465.9 Acute Upper Respiratory Infections Of Unspecified Site 01/16/2012 465.9 Acute Upper Respiratory Infections Of Unspecified Site 01/16/2012 465.9 Acute Upper Respiratory Infections Of Unspecified Site 01/16/2012 465.9 Acute Upper Respiratory Infections Of Unspecified Site 01/16/2012 465.9 Acute Upper Respiratory Infections Of Unspecified Site 01/16/2012 465.9 Acute Upper Respiratory Infections Of Unspecified Site 01/16/2012 465.9 Acute Upper Respiratory Infections Of Unspecified Site 01/16/2012 465.9 Acute Upper Respiratory Infections Of Unspecified Site 01/16/2012 465.9 Acute Upper Respiratory Infections Of Unspecified Site 01/16/2012 465.9 Acute Upper Respiratory Infections Of Unspecified Site 01/16/2012 465.9 Acute Upper Respiratory Infections Of Unspecified Site 01/16/2012 465.9 Acute Upper Respiratory Infections Of Unspecified Site 01/16/2012 DERICK PORRAS DO 465.9 Acute Upper Respiratory Infections Of Unspecified Site 01/16/2012 GILBERTO ROPER APRN A 465.9 Acute Upper Respiratory Infections Of Unspecified Site 01/16/2012 MARLIN HORNE APRN 465.9 Acute Upper Respiratory Infections Of Unspecified Site 01/16/2012 GILBERTO ROPER APRN A 465.9 Acute Upper Respiratory Infections Of Unspecified Site 01/16/2012 GILBERTO ROPER APRN A 465.9 Acute Upper Respiratory Infections Of Unspecified Site 01/16/2012 465.9 Acute Upper Respiratory Infections Of Unspecified Site 01/16/2012 GILBERTO ROPER APRN A 465.9 Acute Upper Respiratory Infections Of Unspecified Site 01/16/2012 SILVA VALENZUELA APRN N 465.9 Acute Upper Respiratory Infections Of Unspecified Site 01/16/2012 OZZIE GRADY, MARLIN S 465.9 Acute Upper Respiratory Infections Of Unspecified Site 01/16/2012 GILBERTO ROPER APRN A 465.9 Acute Upper Respiratory Infections Of Unspecified Site 01/16/2012 PORRAS DO, DERICK K 465.9 Acute Upper Respiratory Infections Of Unspecified Site 01/16/2012 PORRAS DO, DERICK K 465.9 Acute Upper Respiratory Infections Of Unspecified Site 01/16/2012 ZAYRA GOMEZ MD 465.9 Acute Upper Respiratory Infections Of Unspecified Site 01/16/2012 ZAYRA GOMEZ MD 465.9 Acute Upper Respiratory Infections Of Unspecified Site 01/16/2012 BRISEIDA HORNE APRNA S 465.9 Acute Upper Respiratory Infections Of Unspecified Site 01/16/2012 ZAYRA GOMEZ MD 465.9 Acute Upper Respiratory Infections Of Unspecified Site 01/16/2012 ZAYRA GOMEZ MD 465.9 Acute Upper Respiratory Infections Of Unspecified Site 01/16/2012 ZAYRA GOMEZ MD 465.9 Acute Upper Respiratory Infections Of Unspecified Site 01/16/2012 BENITEZ SKINNER APRN 465.9 Acute Upper Respiratory Infections Of Unspecified Site 01/16/2012 ZAYRA GOMEZ MD 465.9 Acute Upper Respiratory Infections Of Unspecified Site 01/16/2012 GILBERTO ROPER APRN A 465.9 Acute Upper Respiratory Infections Of Unspecified Site 01/16/2012 ALAN SUAREZ MD 465.9 Acute Upper Respiratory Infections Of Unspecified Site 01/16/2012 ALAN SUAREZ MD 465.9 Acute Upper Respiratory Infections Of Unspecified Site 01/16/2012 ZAYRA GOMEZ MD 465.9 Acute Upper Respiratory Infections Of Unspecified Site 01/16/2012 ALAN SUAREZ MD 465.9 Acute Upper Respiratory Infections Of Unspecified Site 01/16/2012 GILBERTO ROPER APRN A 465.9 Acute Upper Respiratory Infections Of Unspecified Site 01/16/2012 DERICK PORRAS DO 465.9 Acute Upper Respiratory Infections Of Unspecified Site 01/16/2012 DERICK PORRAS DO 465.9 Acute Upper Respiratory Infections Of Unspecified Site 01/16/2012 JAMIA BINGHAM APRN 465.9 Acute Upper Respiratory Infections Of Unspecified Site 02/08/2012 DERICK PORRAS DO 626.8 OTHER DISORDERS OF MENSTRUATION AND OTHER ABNORMAL BLEEDING FROM FEMALE GENITAL TRACT 02/08/2012 DERICK PORRAS DO 626.8 Other Disorders Of Menstruation And Other Abnormal Bleeding From Female Genital Tract 02/08/2012 626.8 Other Disorders Of Menstruation And Other Abnormal Bleeding From Female Genital Tract 02/08/2012 DERICK PORRAS DO 626.8 Other Disorders Of Menstruation And Other Abnormal Bleeding From Female Genital Tract 02/08/2012 626.8 Other Disorders Of Menstruation And Other Abnormal Bleeding From Female Genital Tract 02/08/2012 626.8 Other Disorders Of Menstruation And Other Abnormal Bleeding From Female Genital Tract 02/08/2012 626.8 Other Disorders Of Menstruation And Other Abnormal Bleeding From Female Genital Tract 02/08/2012 DERICK PORRAS DO 626.8 Other Disorders Of Menstruation And Other Abnormal Bleeding From Female Genital Tract 02/08/2012 626.8 Other Disorders Of Menstruation And Other Abnormal Bleeding From Female Genital Tract 02/08/2012 626.8 Other Disorders Of Menstruation And Other Abnormal Bleeding From Female Genital Tract 02/08/2012 626.8 Other Disorders Of Menstruation And Other Abnormal Bleeding From Female Genital Tract 02/08/2012 626.8 Other Disorders Of Menstruation And Other Abnormal Bleeding From Female Genital Tract 02/08/2012 626.8 Other Disorders Of Menstruation And Other Abnormal Bleeding From Female Genital Tract 02/08/2012 626.8 Other Disorders Of Menstruation And Other Abnormal Bleeding From Female Genital Tract 02/08/2012 626.8 Other Disorders Of Menstruation And Other Abnormal Bleeding From Female Genital Tract 02/08/2012 626.8 Other Disorders Of Menstruation And Other Abnormal Bleeding From Female Genital Tract 02/08/2012 626.8 Other Disorders Of Menstruation And Other Abnormal Bleeding From Female Genital Tract 02/08/2012 626.8 Other Disorders Of Menstruation And Other Abnormal Bleeding From Female Genital Tract 02/08/2012 626.8 Other Disorders Of Menstruation And Other Abnormal Bleeding From Female Genital Tract 02/08/2012 626.8 Other Disorders Of Menstruation And Other Abnormal Bleeding From Female Genital Tract 02/08/2012 626.8 Other Disorders Of Menstruation And Other Abnormal Bleeding From Female Genital Tract 02/08/2012 DERICK PORRAS DO K 626.8 Other Disorders Of Menstruation And Other Abnormal Bleeding From Female Genital Tract 02/08/2012 GILBERTO ROPER APRN A 626.8 Other Disorders Of Menstruation And Other Abnormal Bleeding From Female Genital Tract 02/08/2012 MARLIN HORNE APRN S 626.8 Other Disorders Of Menstruation And Other Abnormal Bleeding From Female Genital Tract 02/08/2012 GILBERTO ROPER APRN A 626.8 Other Disorders Of Menstruation And Other Abnormal Bleeding From Female Genital Tract 02/08/2012 GILBERTO ROPER APRN A 626.8 Other Disorders Of Menstruation And Other Abnormal Bleeding From Female Genital Tract 02/08/2012 626.8 Other Disorders Of Menstruation And Other Abnormal Bleeding From Female Genital Tract 02/08/2012 GILBERTO ROPER APRN A 626.8 Other Disorders Of Menstruation And Other Abnormal Bleeding From Female Genital Tract 02/08/2012 SILVA VALENZUELA APRN 626.8 Other Disorders Of Menstruation And Other Abnormal Bleeding From Female Genital Tract 02/08/2012 MARLIN HORNE APRN S 626.8 Other Disorders Of Menstruation And Other Abnormal Bleeding From Female Genital Tract 02/08/2012 GILBERTO ROPER APRN A 626.8 Other Disorders Of Menstruation And Other Abnormal Bleeding From Female Genital Tract 02/08/2012 DERICK PORRAS DO K 626.8 Other Disorders Of Menstruation And Other Abnormal Bleeding From Female Genital Tract 02/08/2012 DERICK PORRAS DO K 626.8 Other Disorders Of Menstruation And Other Abnormal Bleeding From Female Genital Tract 02/08/2012 ZAYRA GOMEZ MD 626.8 Other Disorders Of Menstruation And Other Abnormal Bleeding From Female Genital Tract 02/08/2012 ZAYRA GOMEZ MD 626.8 Other Disorders Of Menstruation And Other Abnormal Bleeding From Female Genital Tract 02/08/2012 MARLIN HORNE APRN S 626.8 Other Disorders Of Menstruation And Other Abnormal Bleeding From Female Genital Tract 02/08/2012 ZAYRA GOMEZ MD 626.8 Other Disorders Of Menstruation And Other Abnormal Bleeding From Female Genital Tract 02/08/2012 ZAYRA GOMEZ MD 626.8 Other Disorders Of Menstruation And Other Abnormal Bleeding From Female Genital Tract 02/08/2012 ZARYA GOMEZ MD 626.8 Other Disorders Of Menstruation And Other Abnormal Bleeding From Female Genital Tract 02/08/2012 BENITEZ SKINNER APRN 626.8 Other Disorders Of Menstruation And Other Abnormal Bleeding From Female Genital Tract 02/08/2012 ZAYRA GOMEZ MD 626.8 Other Disorders Of Menstruation And Other Abnormal Bleeding From Female Genital Tract 02/08/2012 GILBERTO ROPER APRN 626.8 Other Disorders Of Menstruation And Other Abnormal Bleeding From Female Genital Tract 02/08/2012 ALAN SUAREZ MD N 626.8 Other Disorders Of Menstruation And Other Abnormal Bleeding From Female Genital Tract 02/08/2012 ALAN SUAREZ MD 626.8 Other Disorders Of Menstruation And Other Abnormal Bleeding From Female Genital Tract 02/08/2012 ZAYRA GOMEZ MD 626.8 Other Disorders Of Menstruation And Other Abnormal Bleeding From Female Genital Tract 02/08/2012 ALAN SUAREZ MD 626.8 Other Disorders Of Menstruation And Other Abnormal Bleeding From Female Genital Tract 02/08/2012 GILBERTO ROPER APRN A 626.8 Other Disorders Of Menstruation And Other Abnormal Bleeding From Female Genital Tract 02/08/2012 DERICK PORRAS DO K 626.8 Other Disorders Of Menstruation And Other Abnormal Bleeding From Female Genital Tract 02/08/2012 HOSEA PORRAS DOA K 626.8 Other Disorders Of Menstruation And Other Abnormal Bleeding From Female Genital Tract 02/08/2012 JAMIA BINGHAM APRN 626.8 Other Disorders Of Menstruation And Other Abnormal Bleeding From Female Genital Tract 02/10/2012 HOSEA PORRAS DOA K 626.4 IRREGULAR MENSTRUAL CYCLE 02/10/2012 HOSEA PORRAS DOA K 789.00 ABDOMINAL PAIN UNSPECIFIED SITE 02/10/2012 HOSEA PORRAS DOA K 626.4 Irregular Menstrual Cycle 02/10/2012 HOSEA PORRAS DOA K 789.00 Abdominal Pain Unspecified Site 02/10/2012 626.4 Irregular Menstrual Cycle 02/10/2012 789.00 Abdominal Pain Unspecified Site 02/10/2012 CHIQUITA CHARLESDERICK 626.4 Irregular Menstrual Cycle 02/10/2012 CHIQUITA CHARLESDERICK K 789.00 Abdominal Pain Unspecified Site 02/10/2012 626.4 Irregular Menstrual Cycle 02/10/2012 789.00 Abdominal Pain Unspecified Site 02/10/2012 626.4 Irregular Menstrual Cycle 02/10/2012 789.00 Abdominal Pain Unspecified Site 02/10/2012 626.4 Irregular Menstrual Cycle 02/10/2012 789.00 Abdominal Pain Unspecified Site 02/10/2012 CHIQUITA DERICK CHARLES 626.4 Irregular Menstrual Cycle 02/10/2012 CHIQUITA CHARLESDERICK 789.00 Abdominal Pain Unspecified Site 02/10/2012 626.4 Irregular Menstrual Cycle 02/10/2012 789.00 Abdominal Pain Unspecified Site 02/10/2012 626.4 Irregular Menstrual Cycle 02/10/2012 789.00 Abdominal Pain Unspecified Site 02/10/2012 626.4 Irregular Menstrual Cycle 02/10/2012 789.00 Abdominal Pain Unspecified Site 02/10/2012 626.4 Irregular Menstrual Cycle 02/10/2012 789.00 Abdominal Pain Unspecified Site 02/10/2012 626.4 Irregular Menstrual Cycle 02/10/2012 789.00 Abdominal Pain Unspecified Site 02/10/2012 626.4 Irregular Menstrual Cycle 02/10/2012 789.00 Abdominal Pain Unspecified Site 02/10/2012 626.4 Irregular Menstrual Cycle 02/10/2012 789.00 Abdominal Pain Unspecified Site 02/10/2012 626.4 Irregular Menstrual Cycle 02/10/2012 789.00 Abdominal Pain Unspecified Site 02/10/2012 626.4 Irregular Menstrual Cycle 02/10/2012 789.00 Abdominal Pain Unspecified Site 02/10/2012 626.4 Irregular Menstrual Cycle 02/10/2012 789.00 Abdominal Pain Unspecified Site 02/10/2012 626.4 Irregular Menstrual Cycle 02/10/2012 789.00 Abdominal Pain Unspecified Site 02/10/2012 626.4 Irregular Menstrual Cycle 02/10/2012 789.00 Abdominal Pain Unspecified Site 02/10/2012 626.4 Irregular Menstrual Cycle 02/10/2012 789.00 Abdominal Pain Unspecified Site 02/10/2012 PORRAS DO, DERICK K 626.4 Irregular Menstrual Cycle 02/10/2012 PORRAS DO, DERICK K 789.00 Abdominal Pain Unspecified Site 02/10/2012 JUDSONTRENT HERNÁNDEZN, GILBERTO A 626.4 Irregular Menstrual Cycle 02/10/2012 JUDSONTRENT HERNÁNDEZN, GILBERTO A 789.00 Abdominal Pain Unspecified Site 02/10/2012 OZZIE GRADY MARLIN S 626.4 Irregular Menstrual Cycle 02/10/2012 OZZIE HERNÁNDEZN, MARLIN S 789.00 Abdominal Pain Unspecified Site 02/10/2012 JUDSONTRENT HERNÁNDEZN, GILBERTO A 626.4 Irregular Menstrual Cycle 02/10/2012 [facility], GILBERTO A 789.00 Abdominal Pain Unspecified Site 02/10/2012 JUDSON HERNÁNDEZN, GILBERTO A 626.4 Irregular Menstrual Cycle 02/10/2012 JUDSON GRADY, GILBERTO A 789.00 Abdominal Pain Unspecified Site 02/10/2012 626.4 Irregular Menstrual Cycle 02/10/2012 789.00 Abdominal Pain Unspecified Site 02/10/2012 JUDSONTRENT GRADY, GILBERTO A 626.4 Irregular Menstrual Cycle 02/10/2012 JUDSON GRADY, GILBERTO A 789.00 Abdominal Pain Unspecified Site 02/10/2012 BEVERLY VALENZUELA APRNCY N 626.4 Irregular Menstrual Cycle 02/10/2012 SHAHIDBEVERLY ABARCA APRNCY N 789.00 Abdominal Pain Unspecified Site 02/10/2012 OZZIE GRADY MARLIN S 626.4 Irregular Menstrual Cycle 02/10/2012 OZZIE GRADY, MARLIN S 789.00 Abdominal Pain Unspecified Site 02/10/2012 JUDSONTRENT GRADY, GILBERTO A 626.4 Irregular Menstrual Cycle 02/10/2012 JUDSON GRADY, GILBERTO A 789.00 Abdominal Pain Unspecified Site 02/10/2012 PORRAS DO, DERICK K 626.4 Irregular Menstrual Cycle 02/10/2012 PORRAS DO, DERICK K 789.00 Abdominal Pain Unspecified Site 02/10/2012 PORRAS DO, DERICK K 626.4 Irregular Menstrual Cycle 02/10/2012 PORRAS DERICK CHARLES K 789.00 Abdominal Pain Unspecified Site 02/10/2012 ZAYRA GOMEZ MD 626.4 Irregular Menstrual Cycle 02/10/2012 ZAYRA GOMEZ MD 789.00 Abdominal Pain Unspecified Site 02/10/2012 ZAYRA GOMEZ MD 626.4 Irregular Menstrual Cycle 02/10/2012 ZAYRA GOMEZ MD 789.00 Abdominal Pain Unspecified Site 02/10/2012 MARLIN HORNE APRN S 626.4 Irregular Menstrual Cycle 02/10/2012 MARLIN HORNE APRN S 789.00 Abdominal Pain Unspecified Site 02/10/2012 ZAYRA GOMEZ MD 626.4 Irregular Menstrual Cycle 02/10/2012 ZAYRA GOMEZ MD 789.00 Abdominal Pain Unspecified Site 02/10/2012 ZAYRA GOMEZ MD 626.4 Irregular Menstrual Cycle 02/10/2012 ZAYRA GOMEZ MD 789.00 Abdominal Pain Unspecified Site 02/10/2012 ZAYRA GOMEZ MD 626.4 Irregular Menstrual Cycle 02/10/2012 ZAYRA GOMEZ MD 789.00 Abdominal Pain Unspecified Site 02/10/2012 BENITEZ SKINNER APRN 626.4 Irregular Menstrual Cycle 02/10/2012 BENITEZ SKINNER APRN 789.00 Abdominal Pain Unspecified Site 02/10/2012 ZAYRA GOMEZ MD 626.4 Irregular Menstrual Cycle 02/10/2012 ZAYRA GOMEZ MD 789.00 Abdominal Pain Unspecified Site 02/10/2012 GILBERTO ROPER APRN 626.4 Irregular Menstrual Cycle 02/10/2012 GILBERTO ROPER APRN A 789.00 Abdominal Pain Unspecified Site 02/10/2012 ALAN SUAREZ MD N 626.4 Irregular Menstrual Cycle 02/10/2012 ALAN SUAREZ MD 789.00 Abdominal Pain Unspecified Site 02/10/2012 ALAN SUAREZ MD N 626.4 Irregular Menstrual Cycle 02/10/2012 ALAN SUAREZ MD 789.00 Abdominal Pain Unspecified Site 02/10/2012 ZAYRA GOMEZ MD 626.4 Irregular Menstrual Cycle 02/10/2012 ZAYRA GOMEZ MD 789.00 Abdominal Pain Unspecified Site 02/10/2012 ALAN SUAREZ MD N 626.4 Irregular Menstrual Cycle 02/10/2012 ALAN SUAREZ MD N 789.00 Abdominal Pain Unspecified Site 02/10/2012 JUDSON APRN, GILBERTO A 626.4 Irregular Menstrual Cycle 02/10/2012 JUDSONTRENT GRADY, GILBERTO A 789.00 Abdominal Pain Unspecified Site 02/10/2012 PORRAS DO, DERICK K 626.4 Irregular Menstrual Cycle 02/10/2012 PORRAS DO, DERICK K 789.00 Abdominal Pain Unspecified Site 02/10/2012 PORRAS DO, DERICK K 626.4 Irregular Menstrual Cycle 02/10/2012 PORRAS DO, DERICK K 789.00 Abdominal Pain Unspecified Site 02/10/2012 [facility], JAMIA L 626.4 Irregular Menstrual Cycle 02/10/2012 [facility], JAMIA L 789.00 Abdominal Pain Unspecified Site 02/25/2012 PORRAS DO, DERICK K 724.2 BACK PAIN, LOWER 02/25/2012 PORRAS DO, DERICK K 724.2 BACK PAIN, LOWER 02/25/2012 724.2 BACK PAIN, LOWER 02/25/2012 PORRAS DO, DERICK K 724.2 BACK PAIN, LOWER 02/25/2012 724.2 BACK PAIN, LOWER 02/25/2012 724.2 BACK PAIN, LOWER 02/25/2012 724.2 BACK PAIN, LOWER 02/25/2012 PORRAS DO, DERICK K 724.2 BACK PAIN, LOWER 02/25/2012 724.2 BACK PAIN, LOWER 02/25/2012 724.2 BACK PAIN, LOWER 02/25/2012 724.2 BACK PAIN, LOWER 02/25/2012 724.2 BACK PAIN, LOWER 02/25/2012 724.2 BACK PAIN, LOWER 02/25/2012 724.2 BACK PAIN, LOWER 02/25/2012 724.2 BACK PAIN, LOWER 02/25/2012 724.2 BACK PAIN, LOWER 02/25/2012 724.2 BACK PAIN, LOWER 02/25/2012 724.2 BACK PAIN, LOWER 02/25/2012 724.2 BACK PAIN, LOWER 02/25/2012 724.2 BACK PAIN, LOWER 02/25/2012 724.2 BACK PAIN, LOWER 02/25/2012 PORRAS DO, DERICK K 724.2 BACK PAIN, LOWER 02/25/2012 [facility], GILBERTO A 724.2 BACK PAIN, LOWER 02/25/2012 [facility], MARLIN S 724.2 BACK PAIN, LOWER 02/25/2012 [facility], GILBERTO A 724.2 BACK PAIN, LOWER 02/25/2012 [facility], GILBERTO A 724.2 BACK PAIN, LOWER 02/25/2012 724.2 BACK PAIN, LOWER 02/25/2012 [facility], GILBERTO A 724.2 BACK PAIN, LOWER 02/25/2012 [facility] SILVA N 724.2 BACK PAIN, LOWER 02/25/2012 [facility], MARLIN S 724.2 BACK PAIN, LOWER 02/25/2012 [facility], GILBERTO A 724.2 BACK PAIN, LOWER 02/25/2012 PORRAS DO, DERICK K 724.2 BACK PAIN, LOWER 02/25/2012 PORRAS DO, DERICK K 724.2 BACK PAIN, LOWER 02/25/2012 JASON FINNEY, ZAYRA Shea 724.2 BACK PAIN, LOWER 02/25/2012 JASON FINNEY, ZAYRA Shea 724.2 BACK PAIN, LOWER 02/25/2012 OZZIE GRADY, MARLIN S 724.2 BACK PAIN, LOWER 02/25/2012 JASON FINNEY, ZAYRA Shea 724.2 BACK PAIN, LOWER 02/25/2012 JASON FINNEY, ZAYRA Shea 724.2 BACK PAIN, LOWER 02/25/2012 JASON FINNEY, ZAYRA Shea 724.2 BACK PAIN, LOWER 02/25/2012 BENITEZ SKINNER APRN 724.2 BACK PAIN, LOWER 02/25/2012 ZAYRA GOMEZ MD 724.2 BACK PAIN, LOWER 02/25/2012 [facility], GILBERTO A 724.2 BACK PAIN, LOWER 02/25/2012 ALAN SUAREZ MD 724.2 BACK PAIN, LOWER 02/25/2012 DANIELA FINNEY, ALAN Deshpande 724.2 BACK PAIN, LOWER 02/25/2012 JASON FINNEY, ZAYRA Shea 724.2 BACK PAIN, LOWER 02/25/2012 DANIELA FINNEY, ALAN N 724.2 BACK PAIN, LOWER 02/25/2012 JUDSON GRADY, GILBERTO Abbasi 724.2 BACK PAIN, LOWER 02/25/2012 PORRAS DO, DERICK K 724.2 BACK PAIN, LOWER 02/25/2012 PORRAS DO, DERICK K 724.2 BACK PAIN, LOWER 02/25/2012 OTILIA GRADY, JAMIA Taylor 724.2 BACK PAIN, LOWER 03/02/2012 PORRAS DO, DERICK K 720.2 SACROILIITIS NOT ELSEWHERE CLASSIFIED 03/02/2012 PORRAS DO DERICK K 720.2 SACROILIITIS NOT ELSEWHERE CLASSIFIED 03/02/2012 720.2 SACROILIITIS NOT ELSEWHERE CLASSIFIED 03/02/2012 PORRAS DO DERICK K 720.2 SACROILIITIS NOT ELSEWHERE CLASSIFIED 03/02/2012 720.2 SACROILIITIS NOT ELSEWHERE CLASSIFIED 03/02/2012 720.2 SACROILIITIS NOT ELSEWHERE CLASSIFIED 03/02/2012 720.2 SACROILIITIS NOT ELSEWHERE CLASSIFIED 03/02/2012 CHIQUITA CHARLES DERICK K 720.2 SACROILIITIS NOT ELSEWHERE CLASSIFIED 03/02/2012 720.2 SACROILIITIS NOT ELSEWHERE CLASSIFIED 03/02/2012 720.2 SACROILIITIS NOT ELSEWHERE CLASSIFIED 03/02/2012 720.2 SACROILIITIS NOT ELSEWHERE CLASSIFIED 03/02/2012 720.2 SACROILIITIS NOT ELSEWHERE CLASSIFIED 03/02/2012 720.2 SACROILIITIS NOT ELSEWHERE CLASSIFIED 03/02/2012 720.2 SACROILIITIS NOT ELSEWHERE CLASSIFIED 03/02/2012 720.2 SACROILIITIS NOT ELSEWHERE CLASSIFIED 03/02/2012 720.2 SACROILIITIS NOT ELSEWHERE CLASSIFIED 03/02/2012 720.2 SACROILIITIS NOT ELSEWHERE CLASSIFIED 03/02/2012 720.2 SACROILIITIS NOT ELSEWHERE CLASSIFIED 03/02/2012 720.2 SACROILIITIS NOT ELSEWHERE CLASSIFIED 03/02/2012 720.2 SACROILIITIS NOT ELSEWHERE CLASSIFIED 03/02/2012 720.2 SACROILIITIS NOT ELSEWHERE CLASSIFIED 03/02/2012 CHIQUITA CHARLES DERICK K 720.2 SACROILIITIS NOT ELSEWHERE CLASSIFIED 03/02/2012 [facility], GILBERTO A 720.2 SACROILIITIS NOT ELSEWHERE CLASSIFIED 03/02/2012 OZZIE GRADY, MARLIN S 720.2 SACROILIITIS NOT ELSEWHERE CLASSIFIED 03/02/2012 [facility], GILBERTO A 720.2 SACROILIITIS NOT ELSEWHERE CLASSIFIED 03/02/2012 [facility], GILBERTO A 720.2 SACROILIITIS NOT ELSEWHERE CLASSIFIED 03/02/2012 720.2 SACROILIITIS NOT ELSEWHERE CLASSIFIED 03/02/2012 [facility], GILBERTO A 720.2 SACROILIITIS NOT ELSEWHERE CLASSIFIED 03/02/2012 ZEHRA MENDOZA APRN, SILVA N 720.2 SACROILIITIS NOT ELSEWHERE CLASSIFIED 03/02/2012 [facility], MARLIN S 720.2 SACROILIITIS NOT ELSEWHERE CLASSIFIED 03/02/2012 [facility], GILBERTO A 720.2 SACROILIITIS NOT ELSEWHERE CLASSIFIED 03/02/2012 HOSEA PORRAS DOA K 720.2 SACROILIITIS NOT ELSEWHERE CLASSIFIED 03/02/2012 CHIQUITA DOHOSEAA K 720.2 SACROILIITIS NOT ELSEWHERE CLASSIFIED 03/02/2012 ZAYRA GOMEZ MD 720.2 SACROILIITIS NOT ELSEWHERE CLASSIFIED 03/02/2012 ZAYRA GOMEZ MD 720.2 SACROILIITIS NOT ELSEWHERE CLASSIFIED 03/02/2012 BRISEIDA HORNE APRNA S 720.2 SACROILIITIS NOT ELSEWHERE CLASSIFIED 03/02/2012 ZAYRA GOMEZ MD 720.2 SACROILIITIS NOT ELSEWHERE CLASSIFIED 03/02/2012 ZAYRA GOMEZ MD 720.2 SACROILIITIS NOT ELSEWHERE CLASSIFIED 03/02/2012 ZAYRA GOMEZ MD 720.2 SACROILIITIS NOT ELSEWHERE CLASSIFIED 03/02/2012 BENITEZ SKINNER APRN 720.2 SACROILIITIS NOT ELSEWHERE CLASSIFIED 03/02/2012 ZAYRA GOMEZ MD 720.2 SACROILIITIS NOT ELSEWHERE CLASSIFIED 03/02/2012 [facility] [place] A 720.2 SACROILIITIS NOT ELSEWHERE CLASSIFIED 03/02/2012 ALAN SUAREZ MD 720.2 SACROILIITIS NOT ELSEWHERE CLASSIFIED 03/02/2012 ALAN SUAREZ MD 720.2 SACROILIITIS NOT ELSEWHERE CLASSIFIED 03/02/2012 ZAYRA GOMEZ MD 720.2 SACROILIITIS NOT ELSEWHERE CLASSIFIED 03/02/2012 ALAN SUAREZ MD 720.2 SACROILIITIS NOT ELSEWHERE CLASSIFIED 03/02/2012 GILBERTO ROPER APRN 720.2 SACROILIITIS NOT ELSEWHERE CLASSIFIED 03/02/2012 DERICK PORRAS DO 720.2 SACROILIITIS NOT ELSEWHERE CLASSIFIED 03/02/2012 DERICK PORRAS DO 720.2 SACROILIITIS NOT ELSEWHERE CLASSIFIED 03/02/2012 JAMIA BINGHAM APRN 720.2 SACROILIITIS NOT ELSEWHERE CLASSIFIED 04/06/2012 DERICK PORRAS DO 625.6 STRESS INCONTINENCE FEMALE 04/06/2012 DERICK PORRAS DO 625.6 STRESS INCONTINENCE FEMALE 04/06/2012 625.6 STRESS INCONTINENCE FEMALE 04/06/2012 DERICK PORRAS DO 625.6 STRESS INCONTINENCE FEMALE 04/06/2012 625.6 STRESS INCONTINENCE FEMALE 04/06/2012 625.6 STRESS INCONTINENCE FEMALE 04/06/2012 625.6 STRESS INCONTINENCE FEMALE 04/06/2012 DERICK PORRAS DO 625.6 STRESS INCONTINENCE FEMALE 04/06/2012 625.6 STRESS INCONTINENCE FEMALE 04/06/2012 625.6 STRESS INCONTINENCE FEMALE 04/06/2012 625.6 STRESS INCONTINENCE FEMALE 04/06/2012 625.6 STRESS INCONTINENCE FEMALE 04/06/2012 625.6 STRESS INCONTINENCE FEMALE 04/06/2012 625.6 STRESS INCONTINENCE FEMALE 04/06/2012 625.6 STRESS INCONTINENCE FEMALE 04/06/2012 625.6 STRESS INCONTINENCE FEMALE 04/06/2012 625.6 STRESS INCONTINENCE FEMALE 04/06/2012 625.6 STRESS INCONTINENCE FEMALE 04/06/2012 625.6 STRESS INCONTINENCE FEMALE 04/06/2012 625.6 STRESS INCONTINENCE FEMALE 04/06/2012 625.6 STRESS INCONTINENCE FEMALE 04/06/2012 DERICK PORRAS DO 625.6 STRESS INCONTINENCE FEMALE 04/06/2012 GILBERTO ROPER APRN 625.6 STRESS INCONTINENCE FEMALE 04/06/2012 MARLIN HORNE APRN 625.6 STRESS INCONTINENCE FEMALE 04/06/2012 GILBERTO ROPER APRN 625.6 STRESS INCONTINENCE FEMALE 04/06/2012 [facility], GILBERTO A 625.6 STRESS INCONTINENCE FEMALE 04/06/2012 625.6 STRESS INCONTINENCE FEMALE 04/06/2012 GILBERTO ROPER APRN A 625.6 STRESS INCONTINENCE FEMALE 04/06/2012 SILVA VALENZUELA APRN 625.6 STRESS INCONTINENCE FEMALE 04/06/2012 MARLIN HORNE APRN S 625.6 STRESS INCONTINENCE FEMALE 04/06/2012 GILBERTO ROPER APRN A 625.6 STRESS INCONTINENCE FEMALE 04/06/2012 DERICK PORRAS DO K 625.6 STRESS INCONTINENCE FEMALE 04/06/2012 DERICK PORRAS DO K 625.6 STRESS INCONTINENCE FEMALE 04/06/2012 JASON FINNEY, ZAYRA Shea 625.6 STRESS INCONTINENCE FEMALE 04/06/2012 JASON FINNEY, ZAYRA Shea 625.6 STRESS INCONTINENCE FEMALE 04/06/2012 MARLIN HORNE APRN S 625.6 STRESS INCONTINENCE FEMALE 04/06/2012 ZAYRA GOMEZ MD 625.6 STRESS INCONTINENCE FEMALE 04/06/2012 JASON FINNEY, ZAYRA Shea 625.6 STRESS INCONTINENCE FEMALE 04/06/2012 JASON FINNEY, ZAYRA Shea 625.6 STRESS INCONTINENCE FEMALE 04/06/2012 BENITEZ SKINNER APRN 625.6 STRESS INCONTINENCE FEMALE 04/06/2012 ZAYRA GOMEZ MD 625.6 STRESS INCONTINENCE FEMALE 04/06/2012 GILBERTO ROPER APRN A 625.6 STRESS INCONTINENCE FEMALE 04/06/2012 ALAN SUAREZ MD 625.6 STRESS INCONTINENCE FEMALE 04/06/2012 ALAN SUAREZ MD 625.6 STRESS INCONTINENCE FEMALE 04/06/2012 ZAYRA GOMEZ MD 625.6 STRESS INCONTINENCE FEMALE 04/06/2012 ALAN SUAREZ MD 625.6 STRESS INCONTINENCE FEMALE 04/06/2012 GILBERTO ROPER APRN A 625.6 STRESS INCONTINENCE FEMALE 04/06/2012 DERICK PORRAS DO K 625.6 STRESS INCONTINENCE FEMALE 04/06/2012 DERICK PORRAS DO K 625.6 STRESS INCONTINENCE FEMALE 04/06/2012 JAMIA BINGHAM APRN 625.6 STRESS INCONTINENCE FEMALE 07/08/2012 DERICK PORRAS DO V72.42 TEST POSITIVE RESULT 07/08/2012 DERICK PORRAS DO V72.42 Test Positive Result 07/08/2012 V72.42 Test Positive Result 07/08/2012 PORRAS DO, DERICK K V72.42 Test Positive Result 07/08/2012 V72.42 Test Positive Result 07/08/2012 V72.42 Test Positive Result 07/08/2012 V72.42 Test Positive Result 07/08/2012 PORRAS DO, DERICK K V72.42 Test Positive Result 07/08/2012 V72.42 Test Positive Result 07/08/2012 V72.42 Test Positive Result 07/08/2012 V72.42 Test Positive Result 07/08/2012 V72.42 Test Positive Result 07/08/2012 V72.42 Test Positive Result 07/08/2012 V72.42 Test Positive Result 07/08/2012 V72.42 Test Positive Result 07/08/2012 V72.42 Test Positive Result 07/08/2012 V72.42 Test Positive Result 07/08/2012 V72.42 Test Positive Result 07/08/2012 V72.42 Test Positive Result 07/08/2012 V72.42 Test Positive Result 07/08/2012 V72.42 Test Positive Result 07/08/2012 PORRAS DO, DERICK K V72.42 Test Positive Result 07/08/2012 JUDSONTRENT GRADY, GILBERTO A V72.42 Test Positive Result 07/08/2012 BRISEIDA HORNE APRNA S V72.42 Test Positive Result 07/08/2012 JUDSONTRENT GRADY, GILBERTO A V72.42 Test Positive Result 07/08/2012 JUDSON GRADY, GILBERTO A V72.42 Test Positive Result 07/08/2012 V72.42 Test Positive Result 07/08/2012 JUDSONTRENT GRADY, GILBERTO A V72.42 Test Positive Result 07/08/2012 SHAHIDSILVA ABARCA APRN N V72.42 Test Positive Result 07/08/2012 OZZIE GRADY MARLIN S V72.42 Test Positive Result 07/08/2012 JUDSONTRENT GRADY, GILBERTO A V72.42 Test Positive Result 07/08/2012 PORRAS DO, DERICK K V72.42 Test Positive Result 07/08/2012 PORRAS DO, DERICK K V72.42 Test Positive Result 07/08/2012 ZAYRA GOMEZ MD V72.42 Test Positive Result 07/08/2012 ZAYRA GOMEZ MD V72.42 Test Positive Result 07/08/2012 MARLIN HORNE APRN V72.42 Test Positive Result 07/08/2012 ZAYRA GOMEZ MD V72.42 Test Positive Result 07/08/2012 ZAYRA GOMEZ MD V72.42 Test Positive Result 07/08/2012 ZAYRA GOMEZ MD V72.42 Test Positive Result 07/08/2012 BENITEZ SKINNER APRN V72.42 Test Positive Result 07/08/2012 ZAYRA GOMEZ MD V72.42 Test Positive Result 07/08/2012 GILBERTO ROPER APRN V72.42 Test Positive Result 07/08/2012 ALAN SUAREZ MD V72.42 Test Positive Result 07/08/2012 ALAN SUAREZ MD V72.42 Test Positive Result 07/08/2012 ZAYRA GOMEZ MD V72.42 Test Positive Result 07/08/2012 ALAN SUAREZ MD V72.42 Test Positive Result 07/08/2012 GILBERTO ROPER APRN V72.42 Test Positive Result 07/08/2012 PORRAS DO, DERICK K V72.42 Test Positive Result 07/08/2012 PORRAS DO, DERICK K V72.42 Test Positive Result 07/08/2012 JAMIA BINGHAM APRN V72.42 Test Positive Result 07/28/2012 PORRAS DO, DERICK K V22.1 , NORMAL OTHER 07/28/2012 PORRAS DO, DERICK K V22.1 , NORMAL OTHER 07/28/2012 V22.1 , NORMAL OTHER 07/28/2012 PORRAS DO, DERICK K V22.1 , NORMAL OTHER 07/28/2012 V22.1 , NORMAL OTHER 07/28/2012 V22.1 , NORMAL OTHER 07/28/2012 V22.1 , NORMAL OTHER 07/28/2012 PORRAS DO, DERICK K V22.1 , NORMAL OTHER 07/28/2012 V22.1 , NORMAL OTHER 07/28/2012 V22.1 , NORMAL OTHER 07/28/2012 V22.1 , NORMAL OTHER 07/28/2012 V22.1 , NORMAL OTHER 07/28/2012 V22.1 , NORMAL OTHER 07/28/2012 V22.1 , NORMAL OTHER 07/28/2012 V22.1 , NORMAL OTHER 07/28/2012 V22.1 , NORMAL OTHER 07/28/2012 V22.1 , NORMAL OTHER 07/28/2012 V22.1 , NORMAL OTHER 07/28/2012 V22.1 , NORMAL OTHER 07/28/2012 V22.1 , NORMAL OTHER 07/28/2012 V22.1 , NORMAL OTHER 07/28/2012 PORRAS DO, DERICK K V22.1 , NORMAL OTHER 07/28/2012 [facility], GILBERTO A V22.1 , NORMAL OTHER 07/28/2012 [facility], MARLIN S V22.1 , NORMAL OTHER 07/28/2012 [facility], GILBERTO A V22.1 , NORMAL OTHER 07/28/2012 [facility], GILBERTO A V22.1 , NORMAL OTHER 07/28/2012 V22.1 , NORMAL OTHER 07/28/2012 [facility], GILBERTO A V22.1 , NORMAL OTHER 07/28/2012 [facility] SILVA N V22.1 , NORMAL OTHER 07/28/2012 [facility], MARLIN S V22.1 , NORMAL OTHER 07/28/2012 [facility], GILBERTO A V22.1 , NORMAL OTHER 07/28/2012 PORRAS DO, DERICK K V22.1 , NORMAL OTHER 07/28/2012 PORRAS DO, DERICK K V22.1 , NORMAL OTHER 07/28/2012 ZAYRA GOMEZ MD V22.1 , NORMAL OTHER 07/28/2012 ZAYRA GOMEZ MD V22.1 , NORMAL OTHER 07/28/2012 [facility], MARLIN S V22.1 , NORMAL OTHER 07/28/2012 ZAYRA GOMEZ MD V22.1 , NORMAL OTHER 07/28/2012 ZAYRA GOMEZ MD V22.1 , NORMAL OTHER 07/28/2012 ZAYRA GOMEZ MD V22.1 , NORMAL OTHER 07/28/2012 BENITEZ SKINNER APRN V22.1 , NORMAL OTHER 07/28/2012 ZAYRA GOMEZ MD V22.1 , NORMAL OTHER 07/28/2012 OSIEL ROPER APRNIDI A V22.1 , NORMAL OTHER 07/28/2012 ALAN SUAREZ MD V22.1 , NORMAL OTHER 07/28/2012 ALAN SUAREZ MD V22.1 , NORMAL OTHER 07/28/2012 ZAYRA GOMEZ MD V22.1 , NORMAL OTHER 07/28/2012 ALAN SUAREZ MD V22.1 , NORMAL OTHER 07/28/2012 GILBERTO ROPER APRN A V22.1 , NORMAL OTHER 07/28/2012 DERICK PORRAS DO V22.1 , NORMAL OTHER 07/28/2012 DERICK PORRAS DO V22.1 , NORMAL OTHER 07/28/2012 JAMIA BINGHAM APRN V22.1 , NORMAL OTHER 07/30/2012 DERICK PORRAS DO 648.10 COMPL OF - THYROID DYSFUNCTION 07/30/2012 DERICK PORRAS DO 648.10 COMPL OF - THYROID DYSFUNCTION 07/30/2012 648.10 COMPL OF - THYROID DYSFUNCTION 07/30/2012 DERICK PORRAS DO 648.10 COMPL OF - THYROID DYSFUNCTION 07/30/2012 648.10 COMPL OF - THYROID DYSFUNCTION 07/30/2012 648.10 COMPL OF - THYROID DYSFUNCTION 07/30/2012 648.10 COMPL OF - THYROID DYSFUNCTION 07/30/2012 DERICK PORRAS DO 648.10 COMPL OF - THYROID DYSFUNCTION 07/30/2012 648.10 COMPL OF - THYROID DYSFUNCTION 07/30/2012 648.10 COMPL OF - THYROID DYSFUNCTION 07/30/2012 648.10 COMPL OF - THYROID DYSFUNCTION 07/30/2012 648.10 COMPL OF - THYROID DYSFUNCTION 07/30/2012 648.10 COMPL OF - THYROID DYSFUNCTION 07/30/2012 648.10 COMPL OF - THYROID DYSFUNCTION 07/30/2012 648.10 COMPL OF - THYROID DYSFUNCTION 07/30/2012 648.10 COMPL OF - THYROID DYSFUNCTION 07/30/2012 648.10 COMPL OF - THYROID DYSFUNCTION 07/30/2012 648.10 COMPL OF - THYROID DYSFUNCTION 07/30/2012 648.10 COMPL OF - THYROID DYSFUNCTION 07/30/2012 648.10 COMPL OF - THYROID DYSFUNCTION 07/30/2012 648.10 COMPL OF - THYROID DYSFUNCTION 07/30/2012 DERICK PORRAS DO K 648.10 COMPL OF - THYROID DYSFUNCTION 07/30/2012 [facility], GILBERTO A 648.10 COMPL OF - THYROID DYSFUNCTION 07/30/2012 BRISEIDA HORNE APRNA S 648.10 COMPL OF - THYROID DYSFUNCTION 07/30/2012 JUDSON APRN, GILBERTO A 648.10 COMPL OF - THYROID DYSFUNCTION 07/30/2012 JUDSONCharlee GRADY GILBERTO A 648.10 COMPL OF - THYROID DYSFUNCTION 07/30/2012 648.10 COMPL OF - THYROID DYSFUNCTION 07/30/2012 JUDSON APRN, GILBERTO A 648.10 COMPL OF - THYROID DYSFUNCTION 07/30/2012 SILVA VALENZUELA APRN N 648.10 COMPL OF - THYROID DYSFUNCTION 07/30/2012 BRISEIDA HORNE APRNA S 648.10 COMPL OF - THYROID DYSFUNCTION 07/30/2012 JUDSON APRN, GILBERTO A 648.10 COMPL OF - THYROID DYSFUNCTION 07/30/2012 DERICK PORRAS DO K 648.10 COMPL OF - THYROID DYSFUNCTION 07/30/2012 DERICK PORRAS DO K 648.10 COMPL OF - THYROID DYSFUNCTION 07/30/2012 ZAYRA GOMEZ MD 648.10 COMPL OF - THYROID DYSFUNCTION 07/30/2012 ZAYRA GOMEZ MD 648.10 COMPL OF - THYROID DYSFUNCTION 07/30/2012 MARLNI HORNE APRN S 648.10 COMPL OF - THYROID DYSFUNCTION 07/30/2012 ZAYRA GOMEZ MD 648.10 COMPL OF - THYROID DYSFUNCTION 07/30/2012 ZAYRA GOMEZ MD 648.10 COMPL OF - THYROID DYSFUNCTION 07/30/2012 ZAYRA GOMEZ MD 648.10 COMPL OF - THYROID DYSFUNCTION 07/30/2012 BENITEZ SKINNER APRN 648.10 COMPL OF - THYROID DYSFUNCTION 07/30/2012 ZAYRA GOMEZ MD 648.10 COMPL OF - THYROID DYSFUNCTION 07/30/2012 GILBERTO ROPER APRN A 648.10 COMPL OF - THYROID DYSFUNCTION 07/30/2012 ALAN SUAREZ MD N 648.10 COMPL OF - THYROID DYSFUNCTION 07/30/2012 ALAN SUAREZ MD N 648.10 COMPL OF - THYROID DYSFUNCTION 07/30/2012 ZAYRA GOMEZ MD 648.10 COMPL OF - THYROID DYSFUNCTION 07/30/2012 ALAN SUAREZ MD N 648.10 COMPL OF - THYROID DYSFUNCTION 07/30/2012 GILBERTO ROPER APRN A 648.10 COMPL OF - THYROID DYSFUNCTION 07/30/2012 DERICK PORRAS DO 648.10 COMPL OF - THYROID DYSFUNCTION 07/30/2012 DERICK PORRAS DO K 648.10 COMPL OF - THYROID DYSFUNCTION 07/30/2012 JAMIA BINGHAM APRN 648.10 COMPL OF - THYROID DYSFUNCTION 08/20/2012 DERICK PORRAS DO K 380.4 CERUMEN IMPACTION 08/20/2012 DERICK PORRAS DO K 784.91 POSTNASAL DRIP 08/20/2012 DERICK PORRAS DO K 380.4 CERUMEN IMPACTION 08/20/2012 DERICK PORRAS DO K 784.91 Postnasal Drip 08/20/2012 380.4 CERUMEN IMPACTION 08/20/2012 784.91 Postnasal Drip 08/20/2012 HOSEA PORRAS DOA K 380.4 CERUMEN IMPACTION 08/20/2012 PORRAS HOSEA CHARLESA K 784.91 Postnasal Drip 08/20/2012 380.4 CERUMEN IMPACTION 08/20/2012 784.91 Postnasal Drip 08/20/2012 380.4 CERUMEN IMPACTION 08/20/2012 784.91 Postnasal Drip 08/20/2012 380.4 CERUMEN IMPACTION 08/20/2012 784.91 Postnasal Drip 08/20/2012 PORRAS DO, DERICK K 380.4 Cerumen Impaction 08/20/2012 PORRAS DO, DERICK K 784.91 Postnasal Drip 08/20/2012 380.4 Cerumen Impaction 08/20/2012 784.91 Postnasal Drip 08/20/2012 380.4 Cerumen Impaction 08/20/2012 784.91 Postnasal Drip 08/20/2012 380.4 Cerumen Impaction 08/20/2012 784.91 Postnasal Drip 08/20/2012 380.4 Cerumen Impaction 08/20/2012 784.91 Postnasal Drip 08/20/2012 380.4 Cerumen Impaction 08/20/2012 784.91 Postnasal Drip 08/20/2012 380.4 Cerumen Impaction 08/20/2012 784.91 Postnasal Drip 08/20/2012 380.4 Cerumen Impaction 08/20/2012 784.91 Postnasal Drip 08/20/2012 380.4 Cerumen Impaction 08/20/2012 784.91 Postnasal Drip 08/20/2012 380.4 Cerumen Impaction 08/20/2012 784.91 Postnasal Drip 08/20/2012 380.4 Cerumen Impaction 08/20/2012 784.91 Postnasal Drip 08/20/2012 380.4 Cerumen Impaction 08/20/2012 784.91 Postnasal Drip 08/20/2012 380.4 Cerumen Impaction 08/20/2012 784.91 Postnasal Drip 08/20/2012 380.4 Cerumen Impaction 08/20/2012 784.91 Postnasal Drip 08/20/2012 PORRAS DO, DERICK K 380.4 Cerumen Impaction 08/20/2012 PORRAS DO, DERICK K 784.91 Postnasal Drip 08/20/2012 [facility], GILBERTO A 380.4 Cerumen Impaction 08/20/2012 [facility], GILBERTO A 784.91 Postnasal Drip 08/20/2012 [facility], MARLIN S 380.4 Cerumen Impaction 08/20/2012 [facility], MARLIN S 784.91 Postnasal Drip 08/20/2012 [facility], GILBERTO A 380.4 Cerumen Impaction 08/20/2012 [facility], GILBERTO A 784.91 Postnasal Drip 08/20/2012 [facility], GILBERTO A 380.4 Cerumen Impaction 08/20/2012 [facility], GILBERTO A 784.91 Postnasal Drip 08/20/2012 380.4 Cerumen Impaction 08/20/2012 784.91 Postnasal Drip 08/20/2012 [facility], GILBERTO A 380.4 Cerumen Impaction 08/20/2012 [facility], GILBERTO A 784.91 Postnasal Drip 08/20/2012 [facility]ENDOZA [facility], SILVA N 380.4 Cerumen Impaction 08/20/2012 [facility], SILVA N 784.91 Postnasal Drip 08/20/2012 [facility], MARLIN S 380.4 Cerumen Impaction 08/20/2012 [facility], MARLIN S 784.91 Postnasal Drip 08/20/2012 [facility], GILBERTO A 380.4 Cerumen Impaction 08/20/2012 [facility], GILBERTO A 784.91 Postnasal Drip 08/20/2012 PORRAS DO, DERICK K 380.4 Cerumen Impaction 08/20/2012 PORRAS DO, DERICK K 784.91 Postnasal Drip 08/20/2012 PORRAS DO, DERICK K 380.4 Cerumen Impaction 08/20/2012 PORRAS DO, DERICK K 784.91 Postnasal Drip 08/20/2012 ZAYRA GOMEZ MD 380.4 Cerumen Impaction 08/20/2012 ZAYRA GOMEZ MD 784.91 Postnasal Drip 08/20/2012 ZAYRA GOMEZ MD 380.4 Cerumen Impaction 08/20/2012 ZAYRA GOMEZ MD 784.91 Postnasal Drip 08/20/2012 [facility], MARLIN S 380.4 Cerumen Impaction 08/20/2012 [facility], MARLIN S 784.91 Postnasal Drip 08/20/2012 ZAYRA GOMEZ MD 380.4 Cerumen Impaction 08/20/2012 ZAYRA GOMEZ MD 784.91 Postnasal Drip 08/20/2012 ZAYRA GOMEZ MD 380.4 Cerumen Impaction 08/20/2012 ZAYRA GOMEZ MD 784.91 Postnasal Drip 08/20/2012 ZAYRA GOMEZ MD 380.4 Cerumen Impaction 08/20/2012 ZAYRA GOMEZ MD 784.91 Postnasal Drip 08/20/2012 BENITEZ SKINNER APRN 380.4 Cerumen Impaction 08/20/2012 BENITEZ SKINNER APRN 784.91 Postnasal Drip 08/20/2012 ZAYRA GOMEZ MD 380.4 Cerumen Impaction 08/20/2012 ZAYRA GOMEZ MD 784.91 Postnasal Drip 08/20/2012 GILBERTO ROPER APRN A 380.4 Cerumen Impaction 08/20/2012 OSIEL ROPER APRNIDI A 784.91 Postnasal Drip 08/20/2012 DANIELA FINNEY, ALAN N 380.4 Cerumen Impaction 08/20/2012 DANIELA FINNEY, ALAN N 784.91 Postnasal Drip 08/20/2012 DANIELA FINNEY, ALAN N 380.4 Cerumen Impaction 08/20/2012 DANIELA FINNEY, ALAN N 784.91 Postnasal Drip 08/20/2012 ZAYRA GOMEZ MD 380.4 Cerumen Impaction 08/20/2012 ZAYRA GOMEZ MD 784.91 Postnasal Drip 08/20/2012 DANIELA FINNEY, ALAN N 380.4 Cerumen Impaction 08/20/2012 DANIELA FINNEY, ALAN N 784.91 Postnasal Drip 08/20/2012 OSIEL ROPER APRNIDI A 380.4 Cerumen Impaction 08/20/2012 OSIEL ROPER APRNIDI A 784.91 Postnasal Drip 08/20/2012 DERICK PORRAS DO K 380.4 Cerumen Impaction 08/20/2012 DERICK PORRAS DO K 784.91 Postnasal Drip 08/20/2012 HOSEA PORRAS DOA K 380.4 Cerumen Impaction 08/20/2012 CHIQUITA CHARLES, DERICK K 784.91 Postnasal Drip 08/20/2012 [facility], JAMIA L 380.4 Cerumen Impaction 08/20/2012 [facility], JAMIA L 784.91 Postnasal Drip 08/28/2012 DERICK PORRAS DO K V04.81 FLU DX (3 YRS AND ABOVE, IM) 08/28/2012 V04.81 FLU DX (3 YRS AND ABOVE, IM) 08/28/2012 CHIQUITA CHARLES DERICK K V04.81 FLU DX (3 YRS AND ABOVE, IM) 08/28/2012 V04.81 FLU DX (3 YRS AND ABOVE, IM) 08/28/2012 V04.81 FLU DX (3 YRS AND ABOVE, IM) 08/28/2012 V04.81 FLU DX (3 YRS AND ABOVE, IM) 08/28/2012 CHIQUITA CHARLESDERICK V04.81 FLU DX (3 YRS AND ABOVE, IM) 08/28/2012 V04.81 FLU DX (3 YRS AND ABOVE, IM) 08/28/2012 V04.81 FLU DX (3 YRS AND ABOVE, IM) 08/28/2012 V04.81 FLU DX (3 YRS AND ABOVE, IM) 08/28/2012 V04.81 FLU DX (3 YRS AND ABOVE, IM) 08/28/2012 V04.81 FLU DX (3 YRS AND ABOVE, IM) 08/28/2012 V04.81 FLU DX (3 YRS AND ABOVE, IM) 08/28/2012 V04.81 FLU DX (3 YRS AND ABOVE, IM) 08/28/2012 V04.81 FLU DX (3 YRS AND ABOVE, IM) 08/28/2012 V04.81 FLU DX (3 YRS AND ABOVE, IM) 08/28/2012 V04.81 FLU DX (3 YRS AND ABOVE, IM) 08/28/2012 V04.81 FLU DX (3 YRS AND ABOVE, IM) 08/28/2012 V04.81 FLU DX (3 YRS AND ABOVE, IM) 08/28/2012 V04.81 FLU DX (3 YRS AND ABOVE, IM) 08/28/2012 DERICK PORRAS DO V04.81 FLU DX (3 YRS AND ABOVE, IM) 08/28/2012 [facility], GILBERTO A V04.81 FLU DX (3 YRS AND ABOVE, IM) 08/28/2012 BRISEIDA HORNE APRNA S V04.81 FLU DX (3 YRS AND ABOVE, IM) 08/28/2012 [facility], GILBERTO A V04.81 FLU DX (3 YRS AND ABOVE, IM) 08/28/2012 [facility], GILBERTO A V04.81 FLU DX (3 YRS AND ABOVE, IM) 08/28/2012 V04.81 FLU DX (3 YRS AND ABOVE, IM) 08/28/2012 [facility], GILBERTO A V04.81 FLU DX (3 YRS AND ABOVE, IM) 08/28/2012 ZEHRA MENDOZA APRN, SILVA N V04.81 FLU DX (3 YRS AND ABOVE, IM) 08/28/2012 BRISEIDA HORNE APRNA S V04.81 FLU DX (3 YRS AND ABOVE, IM) 08/28/2012 [facility], GILBERTO A V04.81 FLU DX (3 YRS AND ABOVE, IM) 08/28/2012 PORRAS DO, DERICK K V04.81 FLU DX (3 YRS AND ABOVE, IM) 08/28/2012 PORRAS DO, DERICK K V04.81 FLU DX (3 YRS AND ABOVE, IM) 08/28/2012 ZAYRA GOMEZ MD V04.81 FLU DX (3 YRS AND ABOVE, IM) 08/28/2012 ZAYRA GOMEZ MD V04.81 FLU DX (3 YRS AND ABOVE, IM) 08/28/2012 MARLIN HORNE APRN S V04.81 FLU DX (3 YRS AND ABOVE, IM) 08/28/2012 ZAYRA GOMEZ MD V04.81 FLU DX (3 YRS AND ABOVE, IM) 08/28/2012 ZAYRA GOMEZ MD V04.81 FLU DX (3 YRS AND ABOVE, IM) 08/28/2012 ZAYRA GOMEZ MD V04.81 FLU DX (3 YRS AND ABOVE, IM) 08/28/2012 BENITEZ SKINNER APRN V04.81 FLU DX (3 YRS AND ABOVE, IM) 08/28/2012 ZAYRA GOMEZ MD V04.81 FLU DX (3 YRS AND ABOVE, IM) 08/28/2012 GILBERTO ROPER APRN V04.81 FLU DX (3 YRS AND ABOVE, IM) 08/28/2012 ALAN SUAREZ MD V04.81 FLU DX (3 YRS AND ABOVE, IM) 08/28/2012 ALAN SUAREZ MD V04.81 FLU DX (3 YRS AND ABOVE, IM) 08/28/2012 ZAYRA GOMEZ MD V04.81 FLU DX (3 YRS AND ABOVE, IM) 08/28/2012 ALAN SUAREZ MD V04.81 FLU DX (3 YRS AND ABOVE, IM) 08/28/2012 GILBERTO ROPER APRN V04.81 FLU DX (3 YRS AND ABOVE, IM) 08/28/2012 DERICK PORRAS DO V04.81 FLU DX (3 YRS AND ABOVE, IM) 08/28/2012 DERICK PORRAS DO V04.81 FLU DX (3 YRS AND ABOVE, IM) 08/28/2012 JAMIA BINGHAM APRN V04.81 FLU DX (3 YRS AND ABOVE, IM) 10/11/2012 Ot 558.9 10/11/2012 Ot 646.83 10/27/2012 465.9 UPPER RESPIRATORY INFECTION 10/27/2012 465.9 UPPER RESPIRATORY INFECTION 10/27/2012 465.9 Upper Respiratory Infection 10/27/2012 DERICK PORRAS DO 465.9 Upper Respiratory Infection 10/27/2012 465.9 Upper Respiratory Infection 10/27/2012 465.9 Upper Respiratory Infection 10/27/2012 465.9 Upper Respiratory Infection 10/27/2012 465.9 Upper Respiratory Infection 10/27/2012 465.9 Upper Respiratory Infection 10/27/2012 465.9 Upper Respiratory Infection 10/27/2012 465.9 Upper Respiratory Infection 10/27/2012 465.9 Upper Respiratory Infection 10/27/2012 465.9 Upper Respiratory Infection 10/27/2012 465.9 Upper Respiratory Infection 10/27/2012 465.9 Upper Respiratory Infection 10/27/2012 465.9 Upper Respiratory Infection 10/27/2012 465.9 Upper Respiratory Infection 10/27/2012 DERICK PORRAS DO 465.9 Upper Respiratory Infection 10/27/2012 [facility], GILBERTO A 465.9 Upper Respiratory Infection 10/27/2012 [facility], MARLIN S 465.9 Upper Respiratory Infection 10/27/2012 [facility], GILBERTO A 465.9 Upper Respiratory Infection 10/27/2012 [facility], GILBERTO A 465.9 Upper Respiratory Infection 10/27/2012 465.9 Upper Respiratory Infection 10/27/2012 [facility], GILBERTO A 465.9 Upper Respiratory Infection 10/27/2012 [facility], SILVA N 465.9 Upper Respiratory Infection 10/27/2012 [facility], MARLIN S 465.9 Upper Respiratory Infection 10/27/2012 [facility], GILBERTO A 465.9 Upper Respiratory Infection 10/27/2012 PORRAS DO, DERICK K 465.9 Upper Respiratory Infection 10/27/2012 PORRAS DO, DERICK K 465.9 Upper Respiratory Infection 10/27/2012 ZAYRA GOMEZ MD 465.9 Upper Respiratory Infection 10/27/2012 ZAYRA GOMEZ MD 465.9 Upper Respiratory Infection 10/27/2012 OZZIE GRAYD, MARLIN S 465.9 Upper Respiratory Infection 10/27/2012 ZAYRA GOMEZ MD 465.9 Upper Respiratory Infection 10/27/2012 ZAYRA GOMEZ MD 465.9 Upper Respiratory Infection 10/27/2012 ZAYRA GOMEZ MD 465.9 Upper Respiratory Infection 10/27/2012 BENITEZ SKINNER APRN 465.9 Upper Respiratory Infection 10/27/2012 ZAYRA GOMEZ MD 465.9 Upper Respiratory Infection 10/27/2012 [facility], GILBERTO A 465.9 Upper Respiratory Infection 10/27/2012 ALAN SUAREZ MD 465.9 Upper Respiratory Infection 10/27/2012 ALAN SUAREZ MD 465.9 Upper Respiratory Infection 10/27/2012 ZAYRA GOMEZ MD 465.9 Upper Respiratory Infection 10/27/2012 ALAN SUAREZ MD N 465.9 Upper Respiratory Infection 10/27/2012 [facility], GILBERTO A 465.9 Upper Respiratory Infection 10/27/2012 PORRAS DO, DERICK K 465.9 Upper Respiratory Infection 10/27/2012 PORRAS DO, DERICK K 465.9 Upper Respiratory Infection 10/27/2012 [facility] Deshpande 465.9 Upper Respiratory Infection 11/16/2012 CHIQUITA CHARLESDERICK 616.10 VAGINITIS AND VULVOVAGINITIS UNSPECIFIED 11/16/2012 616.10 VAGINITIS AND VULVOVAGINITIS UNSPECIFIED 11/16/2012 616.10 VAGINITIS AND VULVOVAGINITIS UNSPECIFIED 11/16/2012 616.10 Vaginitis And Vulvovaginitis Unspecified 11/16/2012 616.10 Vaginitis And Vulvovaginitis Unspecified 11/16/2012 616.10 Vaginitis And Vulvovaginitis Unspecified 11/16/2012 616.10 Vaginitis And Vulvovaginitis Unspecified 11/16/2012 616.10 Vaginitis And Vulvovaginitis Unspecified 11/16/2012 616.10 Vaginitis And Vulvovaginitis Unspecified 11/16/2012 616.10 Vaginitis And Vulvovaginitis Unspecified 11/16/2012 616.10 Vaginitis And Vulvovaginitis Unspecified 11/16/2012 616.10 Vaginitis And Vulvovaginitis Unspecified 11/16/2012 616.10 Vaginitis And Vulvovaginitis Unspecified 11/16/2012 616.10 Vaginitis And Vulvovaginitis Unspecified 11/16/2012 PORRAS DERICK CHARLES 616.10 Vaginitis And Vulvovaginitis Unspecified 11/16/2012 JUDSON HERNÁNDEZN, GILBERTO A 616.10 Vaginitis And Vulvovaginitis Unspecified 11/16/2012 MARLIN HORNE APRN 616.10 Vaginitis And Vulvovaginitis Unspecified 11/16/2012 [facility], GILBERTO A 616.10 Vaginitis And Vulvovaginitis Unspecified 11/16/2012 [facility], GILBERTO A 616.10 Vaginitis And Vulvovaginitis Unspecified 11/16/2012 616.10 Vaginitis And Vulvovaginitis Unspecified 11/16/2012 JUDSON HERNÁNDEZN, GILBERTO A 616.10 Vaginitis And Vulvovaginitis Unspecified 11/16/2012 ZEHRA MENDOZA YSABEL, SILVA N 616.10 Vaginitis And Vulvovaginitis Unspecified 11/16/2012 OZZIE GRADY, MARLIN S 616.10 Vaginitis And Vulvovaginitis Unspecified 11/16/2012 JUDSON GRADY, GILBERTO A 616.10 Vaginitis And Vulvovaginitis Unspecified 11/16/2012 DERICK PORRAS DO K 616.10 Vaginitis And Vulvovaginitis Unspecified 11/16/2012 PORRAS HOSEA CHARLESA K 616.10 Vaginitis And Vulvovaginitis Unspecified 11/16/2012 ZAYRA GOMEZ MD 616.10 Vaginitis And Vulvovaginitis Unspecified 11/16/2012 ZAYRA GOMEZ MD 616.10 Vaginitis And Vulvovaginitis Unspecified 11/16/2012 OZZIE GRADY, MARLIN S 616.10 Vaginitis And Vulvovaginitis Unspecified 11/16/2012 ZAYRA GOMEZ MD 616.10 Vaginitis And Vulvovaginitis Unspecified 11/16/2012 ZAYRA GOMEZ MD 616.10 Vaginitis And Vulvovaginitis Unspecified 11/16/2012 ZAYRA GOMEZ MD 616.10 Vaginitis And Vulvovaginitis Unspecified 11/16/2012 BENITEZ SKINNER APRN 616.10 Vaginitis And Vulvovaginitis Unspecified 11/16/2012 ZAYRA GOMEZ MD 616.10 Vaginitis And Vulvovaginitis Unspecified 11/16/2012 JUDSON GRADY, GILBERTO A 616.10 Vaginitis And Vulvovaginitis Unspecified 11/16/2012 ALAN SUAREZ MD N 616.10 Vaginitis And Vulvovaginitis Unspecified 11/16/2012 ALAN SUAREZ MD N 616.10 Vaginitis And Vulvovaginitis Unspecified 11/16/2012 ZAYRA GOMEZ MD 616.10 Vaginitis And Vulvovaginitis Unspecified 11/16/2012 ALAN SUAREZ MD N 616.10 Vaginitis And Vulvovaginitis Unspecified 11/16/2012 [facility], GILBERTO A 616.10 Vaginitis And Vulvovaginitis Unspecified 11/16/2012 PORRAS DO, DERICK K 616.10 Vaginitis And Vulvovaginitis Unspecified 11/16/2012 PORRAS DO, DERICK K 616.10 Vaginitis And Vulvovaginitis Unspecified 11/16/2012 MADJAMIA Taylor APRN 616.10 Vaginitis And Vulvovaginitis Unspecified 11/26/2012 380.4 CERUMEN IMPACTION 11/26/2012 380.4 CERUMEN IMPACTION 11/26/2012 380.4 CERUMEN IMPACTION 11/26/2012 380.4 CERUMEN IMPACTION 11/26/2012 380.4 CERUMEN IMPACTION 11/26/2012 380.4 CERUMEN IMPACTION 11/26/2012 380.4 CERUMEN IMPACTION 11/26/2012 380.4 CERUMEN IMPACTION 11/26/2012 380.4 CERUMEN IMPACTION 11/26/2012 380.4 CERUMEN IMPACTION 11/26/2012 380.4 CERUMEN IMPACTION 11/26/2012 380.4 CERUMEN IMPACTION 11/26/2012 380.4 CERUMEN IMPACTION 11/26/2012 CHIQUITA CHARLES, DERICK K 380.4 CERUMEN IMPACTION 11/26/2012 [facility], GILBERTO A 380.4 CERUMEN IMPACTION 11/26/2012 [facility] CLERKBRISEIDA DeshpandeA S 380.4 CERUMEN IMPACTION 11/26/2012 [facility], GILBERTO A 380.4 CERUMEN IMPACTION 11/26/2012 [facility], GILBERTO A 380.4 CERUMEN IMPACTION 11/26/2012 380.4 CERUMEN IMPACTION 11/26/2012 [facility], GILBERTO A 380.4 CERUMEN IMPACTION 11/26/2012 SILVA VALENZUELA APRN N 380.4 CERUMEN IMPACTION 11/26/2012 BRISEIDA HORNE APRNA S 380.4 CERUMEN IMPACTION 11/26/2012 [facility], GILBERTO A 380.4 CERUMEN IMPACTION 11/26/2012 PORRAS DO, DERICK K 380.4 CERUMEN IMPACTION 11/26/2012 PORRAS DO, DERICK K 380.4 CERUMEN IMPACTION 11/26/2012 JASON FINNEY, ZAYRA Shea 380.4 CERUMEN IMPACTION 11/26/2012 JASON FINNEY, ZAYRA Shea 380.4 CERUMEN IMPACTION 11/26/2012 MARLIN HORNE APRN 380.4 CERUMEN IMPACTION 11/26/2012 JASON FINNEY, ZAYRA Shea 380.4 CERUMEN IMPACTION 11/26/2012 JASON FINNEY, ZAYRA Shea 380.4 CERUMEN IMPACTION 11/26/2012 JASON FINNEY, ZAYRA Shea 380.4 CERUMEN IMPACTION 11/26/2012 BENITEZ SKINNER APRN 380.4 CERUMEN IMPACTION 11/26/2012 JASON FINNEY, ZAYRA Shea 380.4 CERUMEN IMPACTION 11/26/2012 GILBERTO ROPER APRN A 380.4 CERUMEN IMPACTION 11/26/2012 DANIELA FINNEY, ALAN N 380.4 CERUMEN IMPACTION 11/26/2012 DANIELA FINNEY, ALAN Deshpande 380.4 CERUMEN IMPACTION 11/26/2012 JASON FINNEY, ZAYRA Shea 380.4 CERUMEN IMPACTION 11/26/2012 DANIELA FINNEY, ALAN N 380.4 CERUMEN IMPACTION 11/26/2012 GILBERTO ROPER APRN A 380.4 CERUMEN IMPACTION 11/26/2012 PORRAS DO, DERICK K 380.4 CERUMEN IMPACTION 11/26/2012 PORRAS DO, DERICK K 380.4 CERUMEN IMPACTION 11/26/2012 JAMIA BINGHAM APRN 380.4 CERUMEN IMPACTION 12/15/2012 V06.1 TDAP DX 12/15/2012 V06.1 TDAP DX 12/15/2012 V06.1 TDAP DX 12/15/2012 V06.1 TDAP DX 12/15/2012 V06.1 TDAP DX 12/15/2012 V06.1 TDAP DX 12/15/2012 V06.1 TDAP DX 12/15/2012 V06.1 TDAP DX 12/15/2012 V06.1 TDAP DX 12/15/2012 V06.1 TDAP DX 12/15/2012 V06.1 TDAP DX 12/15/2012 V06.1 TDAP DX 12/15/2012 PORRAS DO, DERICK K V06.1 TDAP DX 12/15/2012 [facility], GILBERTO A V06.1 TDAP DX 12/15/2012 [facility], MARLIN S V06.1 TDAP DX 12/15/2012 [facility], GILBERTO A V06.1 TDAP DX 12/15/2012 [facility], GILBERTO A V06.1 TDAP DX 12/15/2012 V06.1 TDAP DX 12/15/2012 [facility], GILBERTO A V06.1 TDAP DX 12/15/2012 ZEHRA MENDOZA [facility], SILVA N V06.1 TDAP DX 12/15/2012 [facility], MARLIN S V06.1 TDAP DX 12/15/2012 [facility], GILBERTO A V06.1 TDAP DX 12/15/2012 PORRAS DO, DERICK K V06.1 TDAP DX 12/15/2012 PORRAS DO, DERICK K V06.1 TDAP DX 12/15/2012 JASON FINNEY, ZAYRA Shea V06.1 TDAP DX 12/15/2012 JASON FINNEY, ZAYRA Shea V06.1 TDAP DX 12/15/2012 OZZIE GRADY, MARLIN S V06.1 TDAP DX 12/15/2012 JASON FINNEY, ZAYRA Shea V06.1 TDAP DX 12/15/2012 ZAYAR GOMEZ MD V06.1 TDAP DX 12/15/2012 JASON FINNEY, ZAYRA Shea V06.1 TDAP DX 12/15/2012 BENITEZ SKINNER APRN V06.1 TDAP DX 12/15/2012 JASON FINNEY, ZAYRA Shea V06.1 TDAP DX 12/15/2012 JUDSON GRADY, GILBERTO A V06.1 TDAP DX 12/15/2012 DANIELA FINNEY, ALAN Deshpande V06.1 TDAP DX 12/15/2012 DANIELA FINNEY, ALAN N V06.1 TDAP DX 12/15/2012 JASON FINNEY, ZAYRA Shea V06.1 TDAP DX 12/15/2012 DANIELA FINNEY, ALAN Deshpande V06.1 TDAP DX 12/15/2012 GILBERTO ROPER APRN A V06.1 TDAP DX 12/15/2012 PORRAS DO DERICK K V06.1 TDAP DX 12/15/2012 PORRAS DO, DERICK K V06.1 TDAP DX 12/15/2012 JAMIA BINGHAM APRN V06.1 TDAP DX 01/16/2013 PORRAS DO, DERICK K Ot 646.83 01/16/2013 PORRAS DO, DERICK K Ot 784.0 01/25/2013 PORRAS DO, DERICK K Ot 625.9 01/25/2013 PORRAS DO, DERICK K Ot 646.83 01/25/2013 PORRAS DO, DERICK K Ot V57.1 01/27/2013 PORRAS DO, DERICK K Ot 644.03 02/03/2013 BRUNILDA FINNEY, SUSANNE Taylor Ot 646.83 02/03/2013 BRUNILDA FINNEY, SUSANNE Taylor Ot 789.00 02/04/2013 V28.6 GBS SCREENING 02/04/2013 V28.6 GBS SCREENING 02/04/2013 V28.6 GBS SCREENING 02/04/2013 V28.6 GBS SCREENING 02/04/2013 V28.6 GBS SCREENING 02/04/2013 V28.6 GBS SCREENING 02/04/2013 V28.6 GBS SCREENING 02/04/2013 PORRAS , DERICK K V28.6 GBS SCREENING 02/04/2013 OSIEL ROPER APRNIDI A V28.6 GBS SCREENING 02/04/2013 MARLIN HORNE APRN V28.6 GBS SCREENING 02/04/2013 GILBERTO ROPER APRN A V28.6 GBS SCREENING 02/04/2013 OSIEL ROPER APRNIDI A V28.6 GBS SCREENING 02/04/2013 V28.6 GBS SCREENING 02/04/2013 OSIEL ROPER APRNIDI A V28.6 GBS SCREENING 02/04/2013 SILVA VALENZUELA APRN V28.6 GBS SCREENING 02/04/2013 BRISEIDA HORNE APRNA S V28.6 GBS SCREENING 02/04/2013 JUDSON GRADY GILBERTO A V28.6 GBS SCREENING 02/04/2013 CHIQUITA CHARLES DERICK K V28.6 GBS SCREENING 02/04/2013 PORRAS , DERICK K V28.6 GBS SCREENING 02/04/2013 ZAYRA GOMEZ MD V28.6 GBS SCREENING 02/04/2013 ZAYRA GOMEZ MD V28.6 GBS SCREENING 02/04/2013 BRISEIDA HORNE APRNA S V28.6 GBS SCREENING 02/04/2013 ZAYRA GOMEZ MD V28.6 GBS SCREENING 02/04/2013 ZAYRA GOMEZ MD V28.6 GBS SCREENING 02/04/2013 ZAYRA GOMEZ MD V28.6 GBS SCREENING 02/04/2013 BENITEZ SKINNER APRN V28.6 GBS SCREENING 02/04/2013 ZAYRA GOMEZ MD V28.6 GBS SCREENING 02/04/2013 JUDSON GRADY GILBERTO A V28.6 GBS SCREENING 02/04/2013 ALAN SUAREZ MD N V28.6 GBS SCREENING 02/04/2013 ALAN SUAREZ MD N V28.6 GBS SCREENING 02/04/2013 ZAYRA GOMEZ MD V28.6 GBS SCREENING 02/04/2013 ALAN SUAREZ MD N V28.6 GBS SCREENING 02/04/2013 JUDSON GRADY GILBERTO A V28.6 GBS SCREENING 02/04/2013 PORRAS DO DERICK K V28.6 GBS SCREENING 02/04/2013 CHIQUITA CHARLES DERICK K V28.6 GBS SCREENING 02/04/2013 JAMIA BINGHAM APRN V28.6 GBS SCREENING 02/12/2013 LELAND FINNEY, JOSÉ MIGUEL Abbasi Ot 625.9 02/12/2013 LELAND FINNEY, JOSÉ MIGUEL Abbasi Ot 648.93 02/24/2013 LELAND FINNEY, JOSÉ MIGUEL Abbasi Ot 623.5 02/24/2013 LELAND FINNEY, JOSÉ MIGUEL Abbasi Ot 654.73 02/28/2013 LELAND FINNEY, JOSÉ MIGUEL Abbasi Ot 493.90 02/28/2013 LELAND FINNEY, JOSÉ MIGUEL Abbasi Ot 648.91 02/28/2013 LELAND FINNEY, JOSÉ MIGUEL Abbasi Ot 653.41 02/28/2013 LELAND FINNEY, JOSÉ MIGUEL Abbasi Ot 660.11 02/28/2013 LELAND FINNEY, JOSÉ MIGUEL Abbasi Ot 660.31 02/28/2013 LELAND FINNEY, JOSÉ MIGUEL Abbasi Ot 669.81 02/28/2013 LELAND FINNEY, JOSÉ MIGUEL Abbasi Ot 788.20 02/28/2013 LELAND FINNEY, JOSÉ MIGUEL Abbasi Ot V27.0 03/04/2013 564.00 CONSTIPATION 03/04/2013 564.00 CONSTIPATION 03/04/2013 564.00 CONSTIPATION 03/04/2013 DERICK PORRAS DO K 564.00 CONSTIPATION 03/04/2013 GILBERTO ROPER APRN A 564.00 CONSTIPATION 03/04/2013 MARLIN HORNE APRN S 564.00 CONSTIPATION 03/04/2013 OSIEL ROPER APRNIDI A 564.00 CONSTIPATION 03/04/2013 OSIEL ROPER APRNIDI A 564.00 CONSTIPATION 03/04/2013 564.00 CONSTIPATION 03/04/2013 OSIEL ROPER APRNIDI A 564.00 CONSTIPATION 03/04/2013 SILVA VALENZUELA APRN 564.00 CONSTIPATION 03/04/2013 MARLIN HORNE APRN S 564.00 CONSTIPATION 03/04/2013 GILBERTO ROPER APRN A 564.00 CONSTIPATION 03/04/2013 DERICK PORRAS DO K 564.00 CONSTIPATION 03/04/2013 DERICK PORRAS DO K 564.00 CONSTIPATION 03/04/2013 JASON FINNEY, ZAYRA Shea 564.00 CONSTIPATION 03/04/2013 JASON FINNEY, ZAYRA Shea 564.00 CONSTIPATION 03/04/2013 MARLIN HORNE APRN S 564.00 CONSTIPATION 03/04/2013 JASON FINNEY, ZAYRA Shea 564.00 CONSTIPATION 03/04/2013 JASON FINNEY, ZAYRA Shea 564.00 CONSTIPATION 03/04/2013 JASON FINNEY, ZAYRA Shea 564.00 CONSTIPATION 03/04/2013 BENITEZ SKINNER APRN 564.00 CONSTIPATION 03/04/2013 JASON FINNEY, ZAYRA Shea 564.00 CONSTIPATION 03/04/2013 JUDSON APRN, GILBERTO A 564.00 CONSTIPATION 03/04/2013 DANIELA FINNEY, LAAN Deshpande 564.00 CONSTIPATION 03/04/2013 DANIELA FINNEY, ALAN N 564.00 CONSTIPATION 03/04/2013 ZAYRA GOMEZ MD 564.00 CONSTIPATION 03/04/2013 DANIELA FINNEY, ALAN N 564.00 CONSTIPATION 03/04/2013 [facility], GILBERTO A 564.00 CONSTIPATION 03/04/2013 PORRAS DO, DERICK K 564.00 CONSTIPATION 03/04/2013 PORRAS , DERICK K 564.00 CONSTIPATION 03/04/2013 OTILIA GRADY JAMIA L 564.00 CONSTIPATION 03/26/2013 380.10 OTITIS EXTERNA RIGHT 03/26/2013 HOSEA PORRAS DOA K 380.10 OTITIS EXTERNA RIGHT 03/26/2013 OSIEL ROPER APRNIDI A 380.10 OTITIS EXTERNA RIGHT 03/26/2013 MARLIN HORNE APRN S 380.10 OTITIS EXTERNA RIGHT 03/26/2013 OSIEL ROPER APRNIDI A 380.10 OTITIS EXTERNA RIGHT 03/26/2013 OSIEL ROPER APRNIDI A 380.10 OTITIS EXTERNA RIGHT 03/26/2013 380.10 OTITIS EXTERNA RIGHT 03/26/2013 OSIEL ROPER APRNIDI A 380.10 OTITIS EXTERNA RIGHT 03/26/2013 SILVA VALENZUELA APRN N 380.10 OTITIS EXTERNA RIGHT 03/26/2013 MARLIN HORNE APRN S 380.10 OTITIS EXTERNA RIGHT 03/26/2013 OSIEL ROPER APRNIDI A 380.10 OTITIS EXTERNA RIGHT 03/26/2013 DERICK PORRAS DO K 380.10 OTITIS EXTERNA RIGHT 03/26/2013 DERICK PORRAS DO K 380.10 OTITIS EXTERNA RIGHT 03/26/2013 ZAYRA GOMEZ MD 380.10 OTITIS EXTERNA RIGHT 03/26/2013 ZAYRA GOMEZ MD 380.10 OTITIS EXTERNA RIGHT 03/26/2013 MARLIN HORNE APRN S 380.10 OTITIS EXTERNA RIGHT 03/26/2013 ZAYRA GOMEZ MD 380.10 OTITIS EXTERNA RIGHT 03/26/2013 ZAYRA GOMEZ MD 380.10 OTITIS EXTERNA RIGHT 03/26/2013 ZAYRA GOMEZ MD 380.10 OTITIS EXTERNA RIGHT 03/26/2013 SUSANNE GRADY BENITEZ D 380.10 OTITIS EXTERNA RIGHT 03/26/2013 ZAYRA GOMEZ MD 380.10 OTITIS EXTERNA RIGHT 03/26/2013 GILBERTO ROPER APRN A 380.10 OTITIS EXTERNA RIGHT 03/26/2013 ALAN SUAREZ MD 380.10 OTITIS EXTERNA RIGHT 03/26/2013 ALNA SUAREZ MD 380.10 OTITIS EXTERNA RIGHT 03/26/2013 ZAYRA GOMEZ MD 380.10 OTITIS EXTERNA RIGHT 03/26/2013 ALAN SUAREZ MD 380.10 OTITIS EXTERNA RIGHT 03/26/2013 GILBERTO ROPER APRN A 380.10 OTITIS EXTERNA RIGHT 03/26/2013 DERICK PORRAS DO 380.10 OTITIS EXTERNA RIGHT 03/26/2013 DERICK PORRAS DO 380.10 OTITIS EXTERNA RIGHT 03/26/2013 JAMIA BINGHAM APRN 380.10 OTITIS EXTERNA RIGHT 04/03/2013 GERALDO FINNEY, DHARMESH A Ot 623.8 04/03/2013 GERALDO FINNEY, DHARMESH Abbasi Ot 654.74 04/09/2013 DERICK PORRAS DO V25.09 CONTRACEPTIVE COUNSELING - GENERAL 04/09/2013 DERICK PORRAS DO V76.2 CERVICAL CANCER SCREENING (PAP SMEAR) 04/09/2013 GILBERTO ROPER APRN A V25.09 CONTRACEPTIVE COUNSELING - GENERAL 04/09/2013 GILBERTO ROPER APRN A V76.2 CERVICAL CANCER SCREENING (PAP SMEAR) 04/09/2013 MARLIN HORNE APRN V25.09 CONTRACEPTIVE COUNSELING - GENERAL 04/09/2013 MARLIN HORNE APRN V76.2 CERVICAL CANCER SCREENING (PAP SMEAR) 04/09/2013 GILBERTO ROPER APRN A V25.09 CONTRACEPTIVE COUNSELING - GENERAL 04/09/2013 GILBERTO ROPER APRN A V76.2 CERVICAL CANCER SCREENING (PAP SMEAR) 04/09/2013 GILBERTO ROPER APRN A V25.09 CONTRACEPTIVE COUNSELING - GENERAL 04/09/2013 GILBERTO ROPER APRN A V76.2 CERVICAL CANCER SCREENING (PAP SMEAR) 04/09/2013 V25.09 CONTRACEPTIVE COUNSELING - GENERAL 04/09/2013 V76.2 CERVICAL CANCER SCREENING (PAP SMEAR) 04/09/2013 GILBERTO ROPER APRN A V25.09 CONTRACEPTIVE COUNSELING - GENERAL 04/09/2013 GILBERTO ROPER APRN A V76.2 CERVICAL CANCER SCREENING (PAP SMEAR) 04/09/2013 ZEHRA MENDOZA APRCharlee SLIVA N V25.09 CONTRACEPTIVE COUNSELING - GENERAL 04/09/2013 ZEHRA MENDOZA APRN SILVA N V76.2 CERVICAL CANCER SCREENING (PAP SMEAR) 04/09/2013 MARLIN HORNE APRN S V25.09 CONTRACEPTIVE COUNSELING - GENERAL 04/09/2013 BRISEIDA HORNE APRNA S V76.2 CERVICAL CANCER SCREENING (PAP SMEAR) 04/09/2013 GILBERTO ROPER APRN A V25.09 CONTRACEPTIVE COUNSELING - GENERAL 04/09/2013 GILBERTO ROPER APRN A V76.2 CERVICAL CANCER SCREENING (PAP SMEAR) 04/09/2013 DERICK PORRAS DO K V25.09 CONTRACEPTIVE COUNSELING - GENERAL 04/09/2013 DERICK PORRAS DO K V76.2 CERVICAL CANCER SCREENING (PAP SMEAR) 04/09/2013 DERICK PORRAS DO K V25.09 CONTRACEPTIVE COUNSELING - GENERAL 04/09/2013 DERICK PORRAS DO K V76.2 CERVICAL CANCER SCREENING (PAP SMEAR) 04/09/2013 ZAYRA GOMEZ MD V25.09 CONTRACEPTIVE COUNSELING - GENERAL 04/09/2013 ZAYRA GOMEZ MD V76.2 CERVICAL CANCER SCREENING (PAP SMEAR) 04/09/2013 ZAYRA GOMEZ MD V25.09 CONTRACEPTIVE COUNSELING - GENERAL 04/09/2013 ZAYRA GOMEZ MD V76.2 CERVICAL CANCER SCREENING (PAP SMEAR) 04/09/2013 MARLIN HORNE APRN S V25.09 CONTRACEPTIVE COUNSELING - GENERAL 04/09/2013 BRISEIDA HORNE APRNA S V76.2 CERVICAL CANCER SCREENING (PAP SMEAR) 04/09/2013 ZAYRA GOMEZ MD V25.09 CONTRACEPTIVE COUNSELING - GENERAL 04/09/2013 ZAYRA GOMEZ MD V76.2 CERVICAL CANCER SCREENING (PAP SMEAR) 04/09/2013 ZAYRA GOMEZ MD V25.09 CONTRACEPTIVE COUNSELING - GENERAL 04/09/2013 ZAYRA GOMEZ MD V76.2 CERVICAL CANCER SCREENING (PAP SMEAR) 04/09/2013 ZAYRA GOMEZ MD V25.09 CONTRACEPTIVE COUNSELING - GENERAL 04/09/2013 ZAYRA GOMEZ MD V76.2 CERVICAL CANCER SCREENING (PAP SMEAR) 04/09/2013 BENITEZ SKINNER APRN V25.09 CONTRACEPTIVE COUNSELING - GENERAL 04/09/2013 BENITEZ SKINNER APRN V76.2 CERVICAL CANCER SCREENING (PAP SMEAR) 04/09/2013 ZAYRA GOMEZ MD V25.09 CONTRACEPTIVE COUNSELING - GENERAL 04/09/2013 ZAYRA GOMEZ MD V76.2 CERVICAL CANCER SCREENING (PAP SMEAR) 04/09/2013 GILBERTO ROPER APRN A V25.09 CONTRACEPTIVE COUNSELING - GENERAL 04/09/2013 GILBERTO ROPER APRN V76.2 CERVICAL CANCER SCREENING (PAP SMEAR) 04/09/2013 ALAN SUAREZ MD V25.09 CONTRACEPTIVE COUNSELING - GENERAL 04/09/2013 ALAN SUAREZ MD V76.2 CERVICAL CANCER SCREENING (PAP SMEAR) 04/09/2013 ALAN SUAREZ MD V25.09 CONTRACEPTIVE COUNSELING - GENERAL 04/09/2013 ALAN SUAREZ MD V76.2 CERVICAL CANCER SCREENING (PAP SMEAR) 04/09/2013 ZAYRA GOMEZ MD V25.09 CONTRACEPTIVE COUNSELING - GENERAL 04/09/2013 ZAYRA GOMEZ MD V76.2 CERVICAL CANCER SCREENING (PAP SMEAR) 04/09/2013 ALAN SUAREZ MD V25.09 CONTRACEPTIVE COUNSELING - GENERAL 04/09/2013 ALAN SUAREZ MD V76.2 CERVICAL CANCER SCREENING (PAP SMEAR) 04/09/2013 GILBERTO ROPER APRN A V25.09 CONTRACEPTIVE COUNSELING - GENERAL 04/09/2013 GILBERTO ROPER APRN A V76.2 CERVICAL CANCER SCREENING (PAP SMEAR) 04/09/2013 DERICK PORRAS DO V25.09 CONTRACEPTIVE COUNSELING - GENERAL 04/09/2013 DERICK PORRAS DO K V76.2 CERVICAL CANCER SCREENING (PAP SMEAR) 04/09/2013 DERICK PORRAS DO K V25.09 CONTRACEPTIVE COUNSELING - GENERAL 04/09/2013 DERICK PORRAS DO K V76.2 CERVICAL CANCER SCREENING (PAP SMEAR) 04/09/2013 JAMIA BINGHAM APRN V25.09 CONTRACEPTIVE COUNSELING - GENERAL 04/09/2013 MADL JAMIA GRADY L V76.2 CERVICAL CANCER SCREENING (PAP SMEAR) 08/12/2013 DERICK PORRAS DO K 786.09 DYSPNEA 08/12/2013 [facility], GILBERTO A 786.09 DYSPNEA 08/12/2013 OZZIE GRADY MARLIN S 786.09 DYSPNEA 08/12/2013 [facility], GILBERTO A 786.09 DYSPNEA 08/12/2013 [facility], GILBERTO A 786.09 DYSPNEA 08/12/2013 786.09 DYSPNEA 08/12/2013 [facility], GILBERTO A 786.09 DYSPNEA 08/12/2013 BEVERLY VALENZUELA APRNCY N 786.09 DYSPNEA 08/12/2013 OZZIE GRADY, MARLIN S 786.09 DYSPNEA 08/12/2013 [facility], GILBERTO A 786.09 DYSPNEA 08/12/2013 DERICK PORRAS DO K 786.09 DYSPNEA 08/12/2013 DERICK PORRAS DO K 786.09 DYSPNEA 08/12/2013 ZAYRA GOMEZ MD 786.09 DYSPNEA 08/12/2013 ZAYRA GOMEZ MD 786.09 DYSPNEA 08/12/2013 RAMEZ HORNE APRNNDA S 786.09 DYSPNEA 08/12/2013 ZAYRA GOMEZ MD 786.09 DYSPNEA 08/12/2013 ZAYRA GOMEZ MD 786.09 DYSPNEA 08/12/2013 ZAYRA GOMEZ MD 786.09 DYSPNEA 08/12/2013 BENITEZ SKINNER APRN 786.09 DYSPNEA 08/12/2013 ZAYRA GOMEZ MD 786.09 DYSPNEA 08/12/2013 JUDSON APRN, GILBERTO A 786.09 DYSPNEA 08/12/2013 ALAN SUAREZ MD 786.09 DYSPNEA 08/12/2013 ALAN SUAREZ MD 786.09 DYSPNEA 08/12/2013 ZAYRA GOMEZ MD 786.09 DYSPNEA 08/12/2013 ALAN SUAREZ MD 786.09 DYSPNEA 08/12/2013 GILBERTO ROPER APRN A 786.09 DYSPNEA 08/12/2013 PORRAS DO, DERICK K 786.09 DYSPNEA 08/12/2013 PORRAS , DERICK K 786.09 DYSPNEA 08/12/2013 JAMIA BINGHAM APRN 786.09 DYSPNEA 08/23/2013 GILBERTO ROPER APRN A 625.3 DYSMENORRHEA 08/23/2013 MARLIN HORNE APRN S 625.3 DYSMENORRHEA 08/23/2013 GILBERTO ROPER APRN A 625.3 DYSMENORRHEA 08/23/2013 GILBERTO ROPER APRN A 625.3 DYSMENORRHEA 08/23/2013 625.3 DYSMENORRHEA 08/23/2013 GILBERTO ROPER APRN A 625.3 DYSMENORRHEA 08/23/2013 SILVA VALENZUELA APRN N 625.3 DYSMENORRHEA 08/23/2013 BRISEIDA HORNE APRNA S 625.3 DYSMENORRHEA 08/23/2013 GILBERTO ROPER APRN A 625.3 DYSMENORRHEA 08/23/2013 CHIQUITA CHARLES, DERICK K 625.3 DYSMENORRHEA 08/23/2013 PORRAS , DERICK K 625.3 DYSMENORRHEA 08/23/2013 ZAYRA GOMEZ MD 625.3 DYSMENORRHEA 08/23/2013 ZAYRA GOMEZ MD 625.3 DYSMENORRHEA 08/23/2013 MARLIN HORNE APRN S 625.3 DYSMENORRHEA 08/23/2013 ZAYRA GOMEZ MD 625.3 DYSMENORRHEA 08/23/2013 ZAYRA GOMEZ MD 625.3 DYSMENORRHEA 08/23/2013 ZAYRA GOMEZ MD 625.3 DYSMENORRHEA 08/23/2013 BENITEZ SKINNER APRN 625.3 DYSMENORRHEA 08/23/2013 ZAYRA GOMEZ MD 625.3 DYSMENORRHEA 08/23/2013 [facility], GILBERTO A 625.3 DYSMENORRHEA 08/23/2013 DANIELA FINNEY, ALAN N 625.3 DYSMENORRHEA 08/23/2013 DANIELA FINNEY, ALAN N 625.3 DYSMENORRHEA 08/23/2013 JASON FINNEY, ZAYRA Shea 625.3 DYSMENORRHEA 08/23/2013 DANIELA FINNEY, ALAN N 625.3 DYSMENORRHEA 08/23/2013 JUDSONTRENT HERNÁNDEZN, GILBERTO A 625.3 DYSMENORRHEA 08/23/2013 HOSEA PORRAS DOA K 625.3 DYSMENORRHEA 08/23/2013 HOSEA PORRAS DOA K 625.3 DYSMENORRHEA 08/23/2013 OTILIA HERNÁNDEZN, JAMIA Taylor 625.3 DYSMENORRHEA 10/28/2013 [facility] CL[facility] Ot 719.47 12/27/2013 BRISEIDA HORNE APRNA S 616.10 VAGINITIS AND VULVOVAGINITIS UNSPECIFIED 12/27/2013 JUDSON GRADY, GILBERTO A 616.10 VAGINITIS AND VULVOVAGINITIS UNSPECIFIED 12/27/2013 JUDSON HERNÁNDEZN, GILBERTO A 616.10 VAGINITIS AND VULVOVAGINITIS UNSPECIFIED 12/27/2013 616.10 VAGINITIS AND VULVOVAGINITIS UNSPECIFIED 12/27/2013 JUDSON GRADY, GILBERTO A 616.10 VAGINITIS AND VULVOVAGINITIS UNSPECIFIED 12/27/2013 ZEHRA MENDOZA [facility] CLERK, SILVA N 616.10 VAGINITIS AND VULVOVAGINITIS UNSPECIFIED 12/27/2013 BRISEIDA HORNE APRNA S 616.10 VAGINITIS AND VULVOVAGINITIS UNSPECIFIED 12/27/2013 JUDSON HERNÁNDEZN, GILBERTO A 616.10 VAGINITIS AND VULVOVAGINITIS UNSPECIFIED 12/27/2013 DERICK PORRAS DO K 616.10 VAGINITIS AND VULVOVAGINITIS UNSPECIFIED 12/27/2013 HOSEA PORRAS DOA K 616.10 VAGINITIS AND VULVOVAGINITIS UNSPECIFIED 12/27/2013 ZAYRA GOMEZ MD 616.10 VAGINITIS AND VULVOVAGINITIS UNSPECIFIED 12/27/2013 ZAYRA GOMEZ MD 616.10 VAGINITIS AND VULVOVAGINITIS UNSPECIFIED 12/27/2013 MARLIN HORNE APRN 616.10 VAGINITIS AND VULVOVAGINITIS UNSPECIFIED 12/27/2013 ZAYRA GOMEZ MD 616.10 VAGINITIS AND VULVOVAGINITIS UNSPECIFIED 12/27/2013 ZAYRA GOMEZ MD 616.10 VAGINITIS AND VULVOVAGINITIS UNSPECIFIED 12/27/2013 ZAYRA GOMEZ MD 616.10 VAGINITIS AND VULVOVAGINITIS UNSPECIFIED 12/27/2013 BENITEZ SKINNER APRN 616.10 VAGINITIS AND VULVOVAGINITIS UNSPECIFIED 12/27/2013 ZAYRA GOMEZ MD 616.10 VAGINITIS AND VULVOVAGINITIS UNSPECIFIED 12/27/2013 GILBERTO ROPER APRN A 616.10 VAGINITIS AND VULVOVAGINITIS UNSPECIFIED 12/27/2013 ALAN SUAREZ MD N 616.10 VAGINITIS AND VULVOVAGINITIS UNSPECIFIED 12/27/2013 ALAN SUAREZ MD N 616.10 VAGINITIS AND VULVOVAGINITIS UNSPECIFIED 12/27/2013 ZAYRA GOMEZ MD 616.10 VAGINITIS AND VULVOVAGINITIS UNSPECIFIED 12/27/2013 ALAN SUAREZ MD N 616.10 VAGINITIS AND VULVOVAGINITIS UNSPECIFIED 12/27/2013 GILBERTO ROPER APRN A 616.10 VAGINITIS AND VULVOVAGINITIS UNSPECIFIED 12/27/2013 DERICK PORRAS DO K 616.10 VAGINITIS AND VULVOVAGINITIS UNSPECIFIED 12/27/2013 DERICK PORRAS DO K 616.10 VAGINITIS AND VULVOVAGINITIS UNSPECIFIED 12/27/2013 JAMIA BINGHAM APRN 616.10 VAGINITIS AND VULVOVAGINITIS UNSPECIFIED 01/11/2014 GILBERTO ROPER APRN A V22.2 INCIDENTAL 01/11/2014 GILBERTO ROPER APRN V72.42 TEST POSITIVE RESULT 01/11/2014 GILBERTO ROPER APRN A V22.2 INCIDENTAL 01/11/2014 OSIEL ROPER APRNIDI A V72.42 TEST POSITIVE RESULT 01/11/2014 V22.2 INCIDENTAL 01/11/2014 V72.42 TEST POSITIVE RESULT 01/11/2014 JUDSON GRADY, GILBERTO A V22.2 INCIDENTAL 01/11/2014 OSIEL ROPER APRNIDI A V72.42 TEST POSITIVE RESULT 01/11/2014 ZEHRA MENDOZA APRN, SILVA N V22.2 INCIDENTAL 01/11/2014 ZEHRA MENDOZA APRN, SILVA N V72.42 TEST POSITIVE RESULT 01/11/2014 OZZIE GRADY, MARLIN S V22.2 INCIDENTAL 01/11/2014 OZZIE GRADY, MARLIN S V72.42 TEST POSITIVE RESULT 01/11/2014 GILBERTO ROPER APRN A V22.2 INCIDENTAL 01/11/2014 OSIEL ROPER APRNIDI A V72.42 TEST POSITIVE RESULT 01/11/2014 PORRAS DO, DERICK K V22.2 INCIDENTAL 01/11/2014 PORRAS DO, DERICK K V72.42 TEST POSITIVE RESULT 01/11/2014 PORRAS DO, DERICK K V22.2 INCIDENTAL 01/11/2014 PORRAS DO, DERICK K V72.42 TEST POSITIVE RESULT 01/11/2014 ZAYRA GOMEZ MD V22.2 INCIDENTAL 01/11/2014 ZAYRA GOMEZ MD V72.42 TEST POSITIVE RESULT 01/11/2014 ZAYRA GOMEZ MD V22.2 INCIDENTAL 01/11/2014 ZAYRA GOMEZ MD V72.42 TEST POSITIVE RESULT 01/11/2014 OZZIE [facility] CLERK, MARLIN S V22.2 INCIDENTAL 01/11/2014 OZZIE GRADY, MARLIN S V72.42 TEST POSITIVE RESULT 01/11/2014 ZAYRA GOMEZ MD V22.2 INCIDENTAL 01/11/2014 ZAYRA GOMEZ MD V72.42 TEST POSITIVE RESULT 01/11/2014 ZAYRA GOMEZ MD V22.2 INCIDENTAL 01/11/2014 ZAYRA GOMEZ MD V72.42 TEST POSITIVE RESULT 01/11/2014 ZAYRA GOMEZ MD V22.2 INCIDENTAL 01/11/2014 ZAYRA GOMEZ MD V72.42 TEST POSITIVE RESULT 01/11/2014 BENITEZ SKINNER APRN V22.2 INCIDENTAL 01/11/2014 BENITEZ SKINNER APRN V72.42 TEST POSITIVE RESULT 01/11/2014 ZAYRA GOMEZ MD V22.2 INCIDENTAL 01/11/2014 ZAYRA GOMEZ MD V72.42 TEST POSITIVE RESULT 01/11/2014 OSIEL ROPER APRNIDI A V22.2 INCIDENTAL 01/11/2014 GILBERTO ROPER APRN A V72.42 TEST POSITIVE RESULT 01/11/2014 ALAN SUAREZ MD N V22.2 INCIDENTAL 01/11/2014 ALAN SUAREZ MD V72.42 TEST POSITIVE RESULT 01/11/2014 ALAN SUAREZ MD N V22.2 INCIDENTAL 01/11/2014 ALAN SUAREZ MD V72.42 TEST POSITIVE RESULT 01/11/2014 ZAYRA GOMEZ MD V22.2 INCIDENTAL 01/11/2014 ZAYRA GOMEZ MD V72.42 TEST POSITIVE RESULT 01/11/2014 ALAN SUAREZ MD N V22.2 INCIDENTAL 01/11/2014 ALAN SUAREZ MD V72.42 TEST POSITIVE RESULT 01/11/2014 JUDSON GRADY GILBERTO A V22.2 INCIDENTAL 01/11/2014 GILBERTO ROPER APRN A V72.42 TEST POSITIVE RESULT 01/11/2014 PORRAS DO, DERICK K V22.2 INCIDENTAL 01/11/2014 PORRAS DO, DERICK K V72.42 TEST POSITIVE RESULT 01/11/2014 PORRAS DO, DERICK K V22.2 INCIDENTAL 01/11/2014 PORRAS DO, DERICK K V72.42 TEST POSITIVE RESULT 01/11/2014 [facility]ADL [facility] CLERK, JAMIA L V22.2 INCIDENTAL 01/11/2014 MADL YSABEL, JAMIA L V72.42 TEST POSITIVE RESULT 01/11/2014 VERONA BAILEY Ot 276.51 01/11/2014 VERONA BAILEY Ot 599.0 01/11/2014 CRISTIAN VERONA CORONA Ot 787.02 01/11/2014 CRISTIAN VERONA CORONA Ot 789.00 01/11/2014 CRISTIAN CORONAVERONA Ot V72.42 01/13/2014 GILBERTO ROPER APRN A 646.60 COMPL OF - UTI 01/13/2014 646.60 COMPL OF - UTI 01/13/2014 GILBERTO ROPER APRN A 646.60 COMPL OF - UTI 01/13/2014 SILVA VALENZUELA APRN N 646.60 COMPL OF - UTI 01/13/2014 MARLIN HORNE APRN S 646.60 COMPL OF - UTI 01/13/2014 GILBERTO ROPER APRN A 646.60 COMPL OF - UTI 01/13/2014 PORRAS DOHOSEAA K 646.60 COMPL OF - UTI 01/13/2014 PORRAS DO, DERICK K 646.60 COMPL OF - UTI 01/13/2014 ZAYRA GOMEZ MD 646.60 COMPL OF - UTI 01/13/2014 ZAYRA GOMEZ MD 646.60 COMPL OF - UTI 01/13/2014 MARLIN HORNE APRN S 646.60 COMPL OF - UTI 01/13/2014 ZAYRA GOMEZ MD 646.60 COMPL OF - UTI 01/13/2014 ZAYRA GOMEZ MD 646.60 COMPL OF - UTI 01/13/2014 ZAYRA GOMEZ MD 646.60 COMPL OF - UTI 01/13/2014 BENITEZ SKINNER APRN 646.60 COMPL OF - UTI 01/13/2014 ZAYRA GOMEZ MD 646.60 COMPL OF - UTI 01/13/2014 GILBERTO ROPER APRN A 646.60 COMPL OF - UTI 01/13/2014 ALAN SUAREZ MD N 646.60 COMPL OF - UTI 01/13/2014 ALAN SUAREZ MD 646.60 COMPL OF - UTI 01/13/2014 ZAYRA GOMEZ MD 646.60 COMPL OF - UTI 01/13/2014 DANIELA FINNEY, ALAN N 646.60 COMPL OF - UTI 01/13/2014 JUDSONTRENT GRADY GILBERTO A 646.60 COMPL OF - UTI 01/13/2014 PORRAS HOSEA CHARLESA K 646.60 COMPL OF - UTI 01/13/2014 PORRAS HOSEA CHARLESA K 646.60 COMPL OF - UTI 01/13/2014 OTILIA YSABEL JAMIA Claudia 646.60 COMPL OF - UTI 03/01/2014 BEVERLY VALENZUELA APRNCY N 728.71 PLANTAR FASCIAL FIBROMATOSIS 03/01/2014 ZEHRA MENDOZA APRN, SILVA N 729.5 PAIN IN LIMB 03/01/2014 MARLIN HORNE APRN S 728.71 PLANTAR FASCIAL FIBROMATOSIS 03/01/2014 BRISEIDA HORNE APRNA S 729.5 PAIN IN LIMB 03/01/2014 GILBERTO ROPER APRN A 728.71 PLANTAR FASCIAL FIBROMATOSIS 03/01/2014 GILBERTO ROPER APRN A 729.5 PAIN IN LIMB 03/01/2014 HOSEA PORRAS DOA K 728.71 PLANTAR FASCIAL FIBROMATOSIS 03/01/2014 HOSEA PORRAS DOA K 729.5 PAIN IN LIMB 03/01/2014 HOSEA PORRAS DOA K 728.71 PLANTAR FASCIAL FIBROMATOSIS 03/01/2014 HOSEA PORRAS DOA K 729.5 PAIN IN LIMB 03/01/2014 ZAYRA GOMEZ MD 728.71 PLANTAR FASCIAL FIBROMATOSIS 03/01/2014 ZAYRA GOMEZ MD 729.5 PAIN IN LIMB 03/01/2014 ZAYRA GOMEZ MD 728.71 PLANTAR FASCIAL FIBROMATOSIS 03/01/2014 ZAYRA GOMEZ MD 729.5 PAIN IN LIMB 03/01/2014 MARLIN HORNE APRN S 728.71 PLANTAR FASCIAL FIBROMATOSIS 03/01/2014 MARLIN HORNE APRN S 729.5 PAIN IN LIMB 03/01/2014 ZAYRA GOMEZ MD 728.71 PLANTAR FASCIAL FIBROMATOSIS 03/01/2014 ZAYRA GOMEZ MD 729.5 PAIN IN LIMB 03/01/2014 ZAYRA GOMEZ MD 728.71 PLANTAR FASCIAL FIBROMATOSIS 03/01/2014 ZAYRA GOMEZ MD 729.5 PAIN IN LIMB 03/01/2014 ZAYRA GOMEZ MD 728.71 PLANTAR FASCIAL FIBROMATOSIS 03/01/2014 ZAYRA GOMEZ MD 729.5 PAIN IN LIMB 03/01/2014 BENITEZ SKINNER APRN 728.71 PLANTAR FASCIAL FIBROMATOSIS 03/01/2014 BENITEZ SKINNER APRN 729.5 PAIN IN LIMB 03/01/2014 ZAYRA GOMEZ MD 728.71 PLANTAR FASCIAL FIBROMATOSIS 03/01/2014 ZAYRA GOMEZ MD 729.5 PAIN IN LIMB 03/01/2014 GILBERTO ROPER APRN A 728.71 PLANTAR FASCIAL FIBROMATOSIS 03/01/2014 GILBERTO ROPER APRN A 729.5 PAIN IN LIMB 03/01/2014 ALAN SUAREZ MD N 728.71 PLANTAR FASCIAL FIBROMATOSIS 03/01/2014 ALAN SUAREZ MD N 729.5 PAIN IN LIMB 03/01/2014 ALAN SUAREZ MD N 728.71 PLANTAR FASCIAL FIBROMATOSIS 03/01/2014 ALAN SUAREZ MD N 729.5 PAIN IN LIMB 03/01/2014 ZAYRA GOMEZ MD 728.71 PLANTAR FASCIAL FIBROMATOSIS 03/01/2014 ZAYRA GOMEZ MD 729.5 PAIN IN LIMB 03/01/2014 ALAN SUAREZ MD N 728.71 PLANTAR FASCIAL FIBROMATOSIS 03/01/2014 ALAN SUAREZ MD N 729.5 PAIN IN LIMB 03/01/2014 GILBERTO ROPER APRN A 728.71 PLANTAR FASCIAL FIBROMATOSIS 03/01/2014 OSIEL ROPER APRNIDI A 729.5 PAIN IN LIMB 03/01/2014 PORRAS DO DERICK K 728.71 PLANTAR FASCIAL FIBROMATOSIS 03/01/2014 PORRAS DO DERICK K 729.5 PAIN IN LIMB 03/01/2014 PORRAS DO DREICK K 728.71 PLANTAR FASCIAL FIBROMATOSIS 03/01/2014 PORRAS DO DERICK K 729.5 PAIN IN LIMB 03/01/2014 [facility], JAMIA L 728.71 PLANTAR FASCIAL FIBROMATOSIS 03/01/2014 OTILIA GRADY, JAMIA L 729.5 PAIN IN LIMB 03/01/2014 GARY CALDERON DOA K Ot 275.2 03/01/2014 PRINCE CALDERON DO K Ot 782.0 03/03/2014 OZZIE GRADY MARLIN S 354.0 CARPAL TUNNEL SYNDROME 03/03/2014 GILBERTO ROPER APRN A 354.0 CARPAL TUNNEL SYNDROME 03/03/2014 PORRAS DO DERICK K 354.0 CARPAL TUNNEL SYNDROME 03/03/2014 PORRAS DO EDRICK K 354.0 CARPAL TUNNEL SYNDROME 03/03/2014 ZAYRA GOMEZ MD 354.0 CARPAL TUNNEL SYNDROME 03/03/2014 ZAYRA GOMEZ MD 354.0 CARPAL TUNNEL SYNDROME 03/03/2014 MARLIN HORNE APRN S 354.0 CARPAL TUNNEL SYNDROME 03/03/2014 ZAYRA GOMEZ MD 354.0 CARPAL TUNNEL SYNDROME 03/03/2014 ZAYRA GOMEZ MD 354.0 CARPAL TUNNEL SYNDROME 03/03/2014 ZAYRA GOMEZ MD 354.0 CARPAL TUNNEL SYNDROME 03/03/2014 BENITEZ SKINNER APRN 354.0 CARPAL TUNNEL SYNDROME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
--- OUTSIDE RECORDS SUMMARY | 2016-12-31 15:28 | XMS REPORT ---
Author Author TYE HERZOG Organization [employer] Address Unknown Phone Unavailable Care Team Providers Care Podiatric Physician Name Role Phone TYE HERZOG CP Unavailable Allergies, Adverse Reactions, Alerts Substance Reaction Event Type Cefaclor Info Not Available Drug Allergy Problems Problem Type Condition Code Onset Dates Condition Status Assessment Depression, unspecified depression type F32.9 Active Problem Depression, unspecified depression type F32.9 Active Medications Medication Code System Code Instructions Start Date End Date Status Dosage Lexapro [facility] [address]-92 20 mg Orally Once a day Jun 03, 2016 1 Procedures Procedure Coding System Code Date Office Visit, Est Pt., Level 2 CPT-4 95640 Jul 01, 2016 Vital Signs Date/Time: Jul 01, 2016 Cardiac Monitoring Heart Rate 72 bpm Weight 194.6 lbs Height 61 in BMI 36.77 Index Blood Pressure Diastolic 84 mmHg Blood Pressure Systolic 130 mmHg Results No Known Results Summary Purpose [employer] Submission
--- OUTSIDE RECORDS SUMMARY | 2016-12-31 15:28 | XMS REPORT ---
Author Author MARLIN HORNE Organization [employer] Address Unknown Phone Unavailable Care Team Providers Care Maori Liaison Adviser Name Role Phone MARLIN HORNE CP Unavailable Allergies, Adverse Reactions, Alerts Substance [...] V25.9 Active Problem Unspecified constipation 564.00 Active Problem Plantar fascial fibromatosis 728.71 Active Assessment Irritable bowel syndrome without diarrhea K58.9 Active Problem Pain in joint, ankle and foot 719.47 Active Problem Pain in joint, forearm 719.43 Active Problem Pain in soft tissues of limb 729.5 Active Medications Medication Code System Code Instructions Start Date End Date Status Dosage Bentyl [facility] [address]-78 10 MG Orally 2 times a day as needed for stomach pain Jul 12, 2015 Jul 22, 2015 1 capsule Procedures Procedure Coding System Code Date Office Visit, Est Pt., Level 3 CPT-4 60618 Jul 12, 2015 Vital Signs Date/Time: Jul 12, 2015 Temperature 97.7 F Weight 196.2 lbs Height 61 in BMI 37.07 Index Blood Pressure Diastolic 84 mmHg Blood Pressure Systolic 126 mmHg Cardiac Monitoring Heart Rate 80 bpm Results No Known Results Summary Purpose [employer] Submission
--- OUTSIDE RECORDS SUMMARY | 2016-12-31 15:28 | XMS REPORT ---
Author Author BAKARI HAN Organization [facility] Address [address] [place] [address] Care Team Providers Care Cotton Tipper Name Role Phone BAKARI HAN Unavailable PROBLEMS Type Condition ICD9-CM Code [id number] Code Onset Dates Condition Status SNOMED Code Problem Depression, unspecified depression type F32.9 Active 08941468 Assessment Depression, unspecified depression type F32.9 May, Active 15842810 ALLERGIES No Known Allergies SOCIAL HISTORY No smoking Hx information available PLAN OF CARE VITAL SIGNS MEDICATIONS No Known Medications RESULTS No Results PROCEDURES Procedure Date Ordered Related Diagnosis Body Site Psychotherapy, patient &/family, 30 minutes, established patient Jun 10, 2016 IMMUNIZATIONS No Known Immunizations
--- OUTSIDE RECORDS SUMMARY | 2016-12-31 15:28 | XMS REPORT ---
Author TITO Pedro Organization [employer] Address Unknown Phone Unavailable Care Team Providers Care Mold Finisher Name Role Phone TITO TRIMBLE CP Unavailable Allergies, Adverse Reactions, Alerts Substance [...] Plantar fascial fibromatosis 728.71 Active Assessment Acute suppurative otitis media of right ear without spontaneous rupture of tympanic membrane, recurrence not specified H66.001 Active Problem Pain in joint, ankle and foot 719.47 Active Problem Pain in joint, forearm 719.43 Active Problem Pain in soft tissues of limb 729.5 Active Medications Medication Code System Code Instructions Start Date End Date Status Dosage Amoxicillin [facility] [address]-79 500 MG Orally 3 times a day May 01, 2016 May 11, 2016 1 capsule Procedures Procedure Coding System Code Date Office Visit, Est Pt., Level 3 CPT-4 04135 May 01, 2016 Vital Signs Date/Time: May 01, 2016 Cardiac Monitoring Heart Rate 86 bpm Weight 195 lbs Height 61 in BMI 36.84 Index Blood Pressure Diastolic 74 mmHg Blood Pressure Systolic 125 mmHg Results No Known Results Summary Purpose [employer] Submission
--- OUTSIDE RECORDS SUMMARY | 2016-12-31 15:29 | XMS REPORT ---
Author Author MASON OLIVO Organization [employer] Address Unknown Phone Unavailable Care Team Providers Care Power Hammer Operator Name Role Phone MASON OLIVO CP Unavailable Allergies, Adverse Reactions, Alerts Substance Reaction Event Type Cefaclor Info Not Available Drug Allergy Problems Problem Type Condition Code Onset Dates Condition Status Assessment Vaginal discharge N89.8 Active Assessment Other specified bacterial agents as the cause of diseases classified elsewhere B96.89 Active Problem Depression, unspecified depression type F32.9 Active Assessment Acute vaginitis N76.0 Active Medications Medication Code System Code Instructions Start Date End Date Status Dosage Lexapro [facility] [address]-91 20 mg Orally Once a day Jun 03, 2016 1 Flagyl [facility] [address]-94 500 MG Orally every 12 hrs Jul 27, 2016 Aug 03, 2016 1 tablet Procedures Procedure Coding System Code Date TRICHOMONAS ASSAY W/OPTIC CPT-4 57907 Jul 27, 2016 CULTURE, BACTERIA, OTHER CPT-4 43110 Jul 27, 2016 WEI VAG, DNA, DIR PROBE CPT-4 43991 Jul 27, 2016 Office Visit, Est Pt., Level 3 CPT-4 17009 Jul 27, 2016 No Charge CPT-4 50219 Jul 27, 2016 Vital Signs Date/Time: Jul 27, 2016 Cardiac Monitoring Heart Rate 96 bpm Weight 194.4 lbs Height 61 in BMI 36.73 Index Blood Pressure Diastolic 90 mmHg Blood Pressure Systolic 128 mmHg Results Name Result Date Reference Range Unit Abnormality Flag TRICHOMONAS (IN HOUSE) ----TRICHOMONAS Negative [id number] ----Control + [id number] ----Lot # [id number] ----Exp date [id number] BACTERIAL VAGINOSIS (IN HOUSE) ----Exp date [id number] ----Control + [id number] ----Lot # [id number] ----RESULTS Negative [id number] Summary Purpose [employer]Works Submission
--- OUTSIDE RECORDS SUMMARY | 2016-12-31 15:29 | XMS REPORT ---
Author Author BRODERICK WALLACE Organization [employer] Address Unknown Phone Unavailable Care Team Providers Care Hotel Controller Name Role Phone BRODERICK WALLACE CP Unavailable Allergies, Adverse Reactions, Alerts Substance [...] Problem Plantar fascial fibromatosis 728.71 Active Assessment Allergic rhinitis J30.9 Active Problem Pain in joint, ankle and foot 719.47 Active Problem Pain in joint, forearm 719.43 Active Problem Pain in soft tissues of limb 729.5 Active Medications No Known Medications Procedures Procedure Coding System Code Date Office Visit, Est Pt., Level 3 CPT-4 14256 January 08, 2016 Vital Signs Date/Time: January 08, 2016 Temperature 98.6 F Weight 199.4 lbs Height 61 in BMI 37.67 Index Blood Pressure Diastolic 74 mmHg Blood Pressure Systolic 118 mmHg Cardiac Monitoring Heart Rate 74 bpm Results No Known Results Summary Purpose [employer]ClinicalWorks Submission
--- OUTSIDE RECORDS SUMMARY | 2016-12-31 15:29 | XMS REPORT ---
Author Author JAMIA BINGHAM [facility] Address [address] [place] [address] Care Team Providers Care Technical Expert Name Role Phone JAMIA BINGHAM Unavailable PROBLEMS Type Condition ICD9-CM Code [id number] Code Onset Dates Condition Status SNOMED Code Problem Depression, unspecified depression type F32.9 Active 70326721 Assessment Acute pharyngitis, unspecified etiology J02.9 May, Active 531036665 ALLERGIES Substance Reaction Event Type Date Status Cefaclor Unknown Drug Allergy May, Active SOCIAL HISTORY No smoking Hx information available PLAN OF CARE VITAL SIGNS Height 61 in 2016-06-11 Weight 194.6 lbs 2016-06-11 Heart Rate 84 bpm 2016-06-11 Respiratory Rate 20 2016-06-11 BMI 36.77 kg/m2 2016-06-11 Blood pressure systolic 143 mmHg 2016-06-11 Blood pressure diastolic 85 mmHg 2016-06-11 MEDICATIONS Medication Instructions Dosage Frequency Start Date End Date Duration Status Lexapro 20 mg Orally Once a day 1 24h May, Active Amoxicillin 500 MG Orally every 12 hrs 1 capsule 12h May, May, 10 day(s) Active RESULTS No Results PROCEDURES Procedure Date Ordered Related Diagnosis Body Site Office Visit, Est Pt., Level 3 Jun 11, 2016 IMMUNIZATIONS No Known Immunizations
--- OUTSIDE RECORDS SUMMARY | 2016-12-31 15:30 | XMS REPORT ---
Author COURTNEY Hensley [facility] [employer] Address Unknown Phone Unavailable Care Team Providers Care Vascular Neurologist Name Role Phone COURTNEY LEONARD CP Unavailable Allergies, Adverse Reactions, Alerts Substance Reaction Event Type Cefaclor Info Not Available Drug Allergy Problems Problem Type Condition ICD-9 Code Onset Dates Condition Status Problem Leukorrhea, [...] Problem Plantar fascial fibromatosis 728.71 Active Assessment Pain in joint, ankle and foot 719.47 Active Problem Pain in joint, ankle and foot 719.47 Active Problem Pain in joint, forearm 719.43 Active Problem Pain in soft tissues of limb 729.5 Active Medications Medication Code System Code Instructions Start Date End Date Status Dosage ProAir A [facility] [address]-59 108 (90 Base) MCG/ACT Inhalation every 4 hrs 2 puffs as needed Procedures Procedure Coding System Code Date Office Visit, Est Pt., Level 4 CPT-4 06652 May 22, 2015 X-RAY EXAM OF ANKLE CPT-4 14474 May 22, 2015 Vital Signs Date/Time: May 22, 2015 Temperature 98.4 F Weight 200.1 lbs Height 61 in BMI 37.80 Index Blood Pressure Diastolic 76 mmHg Blood Pressure Systolic 118 mmHg Cardiac Monitoring Heart Rate 76 bpm Results No Known Results Summary Purpose [employer]ClinicalWorks Submission
--- OUTSIDE RECORDS SUMMARY | 2016-12-31 15:30 | XMS REPORT ---
Author Author COURTNEY LEONARD [facility] e[employer] Address Unknown Phone Unavailable Care Team Providers Care Barrel Straightener Name Role Phone COURTNEY LEONARD CP Unavailable Allergies No Known Allergies Problems Problem Type Condition Code Onset Dates [...] Active Problem Plantar fascial fibromatosis 728.71 Active Problem Pain in joint, ankle and foot 719.47 Active Problem Pain in joint, forearm 719.43 Active Problem Pain in soft tissues of limb 729.5 Active Medications No Known Medications Results No Known Results Summary Purpose [employer]ClinicalWorks Submission
--- OUTSIDE RECORDS SUMMARY | 2016-12-31 15:30 | XMS REPORT ---
Author Author COURTNEY LEONARD [facility] [employer] Address Unknown Phone Unavailable Care Team Providers Care University Administrator Name Role Phone COURTNEY LEONARD CP Unavailable Allergies No Known Allergies Problems Problem Type Condition ICD-9 Code Onset [...]
--- OUTSIDE RECORDS SUMMARY | 2016-12-31 15:30 | XMS REPORT ---
Author TITO Pedro Organization [employer] Address Unknown Phone Unavailable Care Team Providers Care Tie In Machine Operator Name Role Phone TITO TRIMBLE CP Unavailable [...] Problem Plantar fascial fibromatosis 728.71 Active Assessment Otitis externa of left ear 380.10 Active Problem Pain in joint, ankle and foot 719.47 Active Problem Pain in joint, forearm 719.43 Active Problem Pain in soft tissues of limb 729.5 Active Medications Medication Code System Code Instructions Start Date End Date Status Dosage Cortisporin-TC [facility] [address]-49 3.3-3-10-0.5 MG/ML Otic 2 times a day Jun 12, 2015 4 drops Procedures Procedure Coding System Code Date Office Visit, Est Pt., Level 3 CPT-4 69198 Jun 12, 2015 Vital Signs Date/Time: Jun 12, 2015 Temperature 97.5 F Weight 200.5 lbs Height 61 in BMI 37.88 Index Blood Pressure Diastolic 80 mmHg Blood Pressure Systolic 122 mmHg Cardiac Monitoring Heart Rate 80 bpm Results No Known Results Summary Purpose [employer]Works Submission
--- OUTSIDE RECORDS SUMMARY | 2016-12-31 15:31 | XMS REPORT ---
Author Author TYE HERZOG [facility] Address [address] [place] [address] Care Team Providers Care Sales Force Developer Name Role Phone TYE HERZOG Unavailable PROBLEMS Type Condition ICD9-CM Code OZP41-EX Code Onset Dates Condition Status SNOMED Code Problem Depression, unspecified depression type F32.9 Active 25588061 Assessment Depression, unspecified depression type F32.9 May, Active 56914338 ALLERGIES Substance Reaction Event Type Date Status Cefaclor Unknown Drug Allergy May, Active SOCIAL HISTORY No smoking Hx information available PLAN OF CARE VITAL SIGNS Height 61 in 2016-06-03 Weight 196 lbs 2016-06-03 Heart Rate 80 bpm 2016-06-03 Respiratory Rate 18 2016-06-03 BMI 37.03 kg/m2 2016-06-03 Blood pressure systolic 132 mmHg 2016-06-03 Blood pressure diastolic 64 mmHg 2016-06-03 MEDICATIONS Medication Instructions Dosage Frequency Start Date End Date Duration Status Lexapro 20 mg Orally Once a day 1 24h May, Active RESULTS No Results PROCEDURES Procedure Date Ordered Related Diagnosis Body Site Office Visit, Est Pt., Level 2 Jun 03, 2016 IMMUNIZATIONS No Known Immunizations
--- OUTSIDE RECORDS SUMMARY | 2016-12-31 15:31 | XMS REPORT ---
Author Author BAKARI HAN Organization [facility] Address [address] [place] [address] Care Team Providers Care Ibm Websphere Commerce Developer Name Role Phone BAKARI HAN Unavailable PROBLEMS Type Condition ICD9-CM Code [id number] Code Onset Dates Condition Status SNOMED Code Problem Depression, unspecified depression type F32.9 Active 39093837 Assessment Dysthymic disorder F34.1 May, Active 75033671 ALLERGIES No Known Allergies SOCIAL HISTORY No smoking Hx information available PLAN OF CARE VITAL SIGNS MEDICATIONS No Known Medications RESULTS No Results PROCEDURES Procedure Date Ordered Related Diagnosis Body Site Psychotherapy, patient &/family, 45 minutes, established patient Jun 03, 2016 IMMUNIZATIONS No Known Immunizations
--- OUTSIDE RECORDS SUMMARY | 2016-12-31 15:31 | XMS REPORT ---
Author Author MARLIN HORNE Organization [employer] Address Unknown Phone Unavailable Care Team Providers Care Kettle Fry Cook Operator Name Role Phone MARLIN HORNE CP Unavailable [...] Problem Plantar fascial fibromatosis 728.71 Active Assessment Upper respiratory tract infection, unspecified type J06.9 Active Problem Pain in joint, ankle and foot 719.47 Active Problem Pain in joint, forearm 719.43 Active Problem Pain in soft tissues of limb 729.5 Active Medications No Known Medications Procedures Procedure Coding System Code Date Office Visit, Est Pt., Level 3 CPT-4 13470 Aug 14, 2015 Vital Signs Date/Time: Aug 14, 2015 Temperature 98.5 F Weight 196.2 lbs Height 61 in BMI 37.07 Index Blood Pressure Diastolic 78 mmHg Blood Pressure Systolic 118 mmHg Cardiac Monitoring Heart Rate 72 bpm Results No Known Results Summary Purpose [employer]ClinicalWorks Submission
--- OUTSIDE RECORDS SUMMARY | 2016-12-31 15:31 | XMS REPORT ---
Author DIETER Morales Organization [employer] Address Unknown Phone Unavailable Care Team Providers Care Staff Analyst Name Role Phone DIETER MULLIGAN Unavailable Allergies, Adverse Reactions, Alerts Substance Reaction [...] Problem Plantar fascial fibromatosis 728.71 Active Assessment Herpes zoster without complication B02.9 Active Problem Pain in joint, ankle and foot 719.47 Active Problem Pain in joint, forearm 719.43 Active Problem Pain in soft tissues of limb 729.5 Active Medications Medication Code System Code Instructions Start Date End Date Status Dosage Valtrex [facility] [address]-16 1 GM Orally every 8 hours March 31, 2016March 1 tablet Procedures Procedure Coding System Code Date Office Visit, Est Pt., Level 3 CPT-4 98105 March 31, 2016 Vital Signs Date/Time: March 31, 2016 Cardiac Monitoring Heart Rate 72 bpm Weight 198.2 lbs Height 61 in Blood Pressure Diastolic 72 mmHg Blood Pressure Systolic 120 mmHg Results No Known Results Summary Purpose eClinicalWorks Submission
--- OUTSIDE RECORDS SUMMARY | 2016-12-31 15:31 | XMS REPORT ---
Author Author BRODERICK WALLACE Organization [facility] Address [address] [place] [address] Care Team Providers Care Automatic Centrifugal Station Operator Name Role Phone WALLACEBRODERICK Wagoner Unavailable PROBLEMS Type Condition ICD9-CM Code [id number] Code Onset Dates Condition Status SNOMED Code Problem Depression, unspecified depression type F32.9 Active 14476162 Assessment Vaginal candidiasis B37.3 May, Active 41773913 ALLERGIES Substance Reaction Event Type Date Status Cefaclor Unknown Drug Allergy May, Active SOCIAL HISTORY No smoking Hx information available PLAN OF CARE VITAL SIGNS Height 61 in 2016-06-14 Weight 195.7 lbs 2016-06-14 Heart Rate 76 bpm 2016-06-14 Respiratory Rate 18 2016-06-14 BMI 36.97 kg/m2 2016-06-14 Blood pressure systolic 134 mmHg 2016-06-14 Blood pressure diastolic 82 mmHg 2016-06-14 MEDICATIONS Medication Instructions Dosage Frequency Start Date End Date Duration Status Diflucan 150 MG Orally one time 1 tablet- take one tablet today and then one tablet in one week May, Active Lexapro 20 mg Orally Once a day 1 24h May, Active Amoxicillin 500 MG Orally every 12 hrs 1 capsule 12h May, May, 10 day(s) Active RESULTS No Results PROCEDURES Procedure Date Ordered Related Diagnosis Body Site Office Visit, Est Pt., Level 3 Jun 14, 2016 IMMUNIZATIONS No Known Immunizations
== END 2016-12-16 00:25 | disposition home or self-care (01) ==
LOC: EDUNIT# 22:15 → ER 22:18
DX: S39.92XA Unspecified injury of lower back, initial encounter (principal); S39.91XA Unspecified injury of abdomen, initial encounter; Z3A.10 10 weeks gestation of pregnancy; Y04.8XXA Assault by other bodily force, initial encounter; Y99.8 Other external cause status
CPT/HCPCS: 81000; 99283

== ENCOUNTER 2017-02-04 23:55 | Emergency (ER) | payer MEDICAID ==
[~2017-02-04] VITALS: Ht 152.4 cm; Wt 83.5 kg
[~2017-02-04 23:55] MED LIST changes: +ONDA4TAB10; +VIT1TABL75
[2017-02-05] MEDS ORDERED: PREN-37 PO (00:46)
[2017-02-05 00:53] LABS: BILIRUBIN,URINE NEGATIVE (NEGATIVE); KETONES,URINE NEGATIVE (NEGATIVE); LEUKOCYTE ESTERASE ,URINE 2+ (NEGATIVE); NITRITE,URINE NEGATIVE (NEGATIVE); PH,URINE 6 (5-9); PROTEIN,URINE 1+ (NEGATIVE); UROBILINOGEN,URINE NORMAL (NORMAL)
[2017-02-05 00:54] LABS: SQUAMOUS EPITHELIAL CELL,UR >50 /HPF
[2017-02-05] MEDS ORDERED: CYCL10TA9 PO (01:09)
--- NOTE | 2017-02-05 01:09 | ED Back Pain ---
General Chief Complaint: -Female Stated Complaint: LOWER BACK PAIN,17 WKS & 7 DAYS PREG Nursing Triage Note: Patient ambulates to ED crying and reports severe pain mid to lower back as sudden onset at 1800. Pt is 17 weeks and 6 days . LMP 10/02/16 with EDC 07/09/17 Nursing Sepsis Screen: No Definite Risk Source of Information: Patient Exam Limitations: No Limitations History of Present Illness Time Seen by Provider: 00:33 Initial Comments This 26 room woman reports being approximately 17 weeks gestational age and developing exacerbation of lower back pain starting at about 18:00. This exacerbation started suddenly when getting up from a lying position. Pain is somewhat migratory across the lumbar region. It affects the right paraspinous muscles more than the left. She has not taken any medications for this pain. She has no weakness or difficulty walking. She has no problems with bowel or bladder function. She has a mild discomfort in the left lower leg as well. Allergies and Home Medications Allergies Coded Allergies: cefaclor (Unverified Allergy, Mild, 03/11/09) amoxicillin (Verified Allergy, Unknown, 07/09/14) Uncoded Allergies: BEE'S (Allergy, Unknown, 07/09/14) Home Medications Cyclobenzaprine HCl 10 Mg Tablet, 10 MG PO TID PRN for SPASMS, #6 Prescribed by: ZARINA SAMPSON on 02/05/17 0109 Vit/Iron Fumarate/FA 1 Each Tablet, 1 EACH PO DAILY, (Reported) Constitutional: no symptoms reported EENTM: no symptoms reported Respiratory: no symptoms reported Cardiovascular: no symptoms reported Gastrointestinal: no symptoms reported Genitourinary: no symptoms reported : Yes Musculoskeletal: see HPI Skin: no symptoms reported Psychiatric/Neurological: No Symptoms Reported Past Mzdgtji-Xnxnzd-Fxyqri Hx Patient Social History Alcohol Use: Denies Use Recreational Drug Use: No Smoking Status: Former Smoker Former Smoker/When Quit: Nov 20, 2013 Recent Foreign Travel: No Contact w/Someone Who Travel: No Recent Infectious Disease Expo: No Recent Hopitalizations: No Immunizations Up To Date Tetanus Booster (TDap): Less than 5yrs Date of Influenza Vaccine: Jun 29, 2014 Seasonal Allergies Seasonal Allergies: No Surgeries HX Surgeries: Yes Surgeries: Section, Orthopedic Respiratory Hx Respiratory Disorders: Yes Respiratory Disorders: Asthma Cardiovascular Hx Cardiac Disorders: Yes Cardiac Disorders: Heart Murmur Neurological Hx Neurological Disorders: No Reproductive System : Yes Hx : 4 Hx Para: 3 Hx Reproductive Disorders: No Genitourinary Hx Genitourinary Disorders: No Gastrointestinal Hx Gastrointestinal Disorders: No Musculoskeletal Hx Musculoskeletal Disorders: Yes Musculoskeletal Disorders: Chronic Back Pain Endocrine Hx Endocrine Disorders: No HEENT HX ENT Disorders: No Cancer Hx Cancer: No Psychosocial Hx Psychiatric Problems: No Integumentary HX Skin/Integumentary Disorder: No Blood Transfusions Hx Blood Disorders: No Adverse Reaction to a Blood Tr: No Family Medical History Significant Family History: No Pertinent Family Hx Physical Exam Vital Signs Vital Sign - Last 12Hours 02/05/17 00:36 Temp 98.6 Pulse 77 Resp 20 B/P (MAP) 139/76 Pulse Ox 96 O2 Delivery Room Air Capillary Refill : Less Than 3 Seconds General Appearance: WD/WN, Mild Distress HEENT: PERRL/EOMI, Normal ENT Inspection Neck: Normal Inspection Cardiovascular: Regular Rate, Rhythm, No Edema, No Murmur Respiratory: Lungs Clear, Normal Breath Sounds, No Accessory Muscle Use, No Respiratory Distress Gastrointestinal: Normal Bowel Sounds, Non Tender, Soft Back: Normal Inspection, Vertebral Tenderness (mid lumbar spine and right paraspinous muscle tenderness) Extremity: Normal Capillary Refill, Normal Inspection, No Pedal Edema, Other ( mild tenderness on the medial left lower leg) Neurologic/Psychiatric: Alert, Oriented x3, No Motor/Sensory Deficits, Normal Mood/Affect, kiln tender II-XII Norm as Tested Skin: Normal Color, Warm/Dry Progress/Results/Core Measures Results/Orders Lab Results Laboratory Tests Test 02/05/17 00:20 Range/Units Urine Color YELLOW Urine Clarity CLOUDY H Urine pH 6 5-9 Urine Specific [place] 1.020 1.016-1.022 Urine Protein 1+ H NEGATIVE Urine Glucose (UA) NEGATIVE NEGATIVE Urine Ketones NEGATIVE NEGATIVE Urine Nitrite NEGATIVE NEGATIVE Urine Bilirubin NEGATIVE NEGATIVE Urine Urobilinogen NORMAL NORMAL MG/DL Urine Leukocyte Esterase 2+ H NEGATIVE Urine RBC (Auto) NEGATIVE NEGATIVE Urine RBC NONE /HPF Urine WBC 2-5 /HPF Urine Squamous Epithelial Cells >50 H /HPF Urine Crystals NONE /LPF Urine Bacteria MODERATE H /HPF Urine Casts NONE /LPF Urine Mucus NEGATIVE /LPF Urine Culture Indicated NO My Orders Orders - ZARINA DAVIDSON MD Ua Culture If Indicated (02/05/17 00:33) Cyclobenzaprine Tablet (Flexeril Tablet) (02/05/17 01:15) Hydrocodone/Apap 5/325 Tablet (Lortab 5 (02/05/17 01:15) Medications Given in ED Current Medications Medications Dose Ordered Sig/Brook Route Start Time Stop Time Status Last Admin Dose Admin Acetaminophen/ Hydrocodone Bitart 1 tab ONCE ONCE PO 02/05/17 01:15 02/05/17 01:16 DC 02/05/17 01:43 1 TAB Cyclobenzaprine HCl 10 mg ONCE ONCE PO 02/05/17 01:15 02/05/17 01:16 DC 02/05/17 01:43 10 MG Vital Signs/I&O Vital Sign - Last 12Hours 02/05/17 02/05/17 02/05/17 00:36 01:43 01:45 Temp 98.6 98.6 98.6 Pulse 77 77 Resp 20 20 B/P (MAP) 139/76 Pulse Ox 96 96 O2 Delivery Room Air Blood Pressure Mean: 97 Progress Note : Progress Note Patient was treated with Norflex and a hydrocodone prior to dismissal. Departure Impression Impression: Primary Impression: Lower back pain Qualified Codes: M54.5 - Low back pain Additional Impression: Muscle spasm Disposition: HOME, SELF-CARE Condition: Improved Departure-Patient Inst. Decision time for Depature: 01:07 Referrals: NO,LOCAL PHYSICIAN (PCP/Family) Primary Care Physician Patient Instructions: Low Back Pain in Adults Add. Discharge Instructions: Follow-up with Dr. Gates as soon as possible. You may use gentle heat such as a warm bath or heating pad on low on your lower back to help relax the muscle spasm. Use cyclobenzaprine as prescribed. Asked Dr. Gates about use of ibuprofen. U may use Tylenol (acetaminophen) up to 1000 mg every 6 hours as needed for pain. All discharge instructions reviewed with patient and/or family. Voiced understanding. Scripts Cyclobenzaprine HCl (Cyclobenzaprine HCl) 10 Mg Tablet 10 MG PO TID Y for SPASMS, #6 TAB Prov: ZARINA DAVIDSON MD 02/05/17 ZARINA DAVIDSON MD February 05, 2017 01:09
[2017-02-05] MEDS ORDERED: CYCLOBENZAPRINE 10 MG (FLEXERIL) TAB PO ONE (01:15)
[2017-02-05] MEDS ORDERED: HYDROcodone/APAP 5 MG/325 MG (LORTAB) TAB PO ONE (01:15)
[2017-02-05 01:45] VITALS: BP 139/76
== END 2017-02-05 01:45 | disposition home or self-care (01) ==
LOC: EDUNIT# 23:55 → ER 02-05 00:34
DX: O99.89 Other specified diseases and conditions complicating pregnancy, childbirth and the puerperium (principal); M54.5 Low back pain; Z3A.17 17 weeks gestation of pregnancy; Z87.891 Personal history of nicotine dependence
CPT/HCPCS: 81000; 99282

== ENCOUNTER → 2017-02-11 | Outpatient (CLI) | payer MEDICAID ==
[~2017-02-11] MED LIST changes: +CYCL10TA9 PO; +PREN-37 PO
--- NOTE | 2017-02-11 11:33 | Diagnostic Imaging Report ---
INDICATION: survey. TECHNIQUE: Multiple real-time grayscale images were obtained over the gravid uterus. COMPARISON: 12/02/2016. FINDINGS: The heart rate is 146 BPM. The placenta is anterior. No placenta previa. Adequate amniotic fluid is seen. No ventriculomegaly. The four-chamber view appears unremarkable. The stomach, bladder, cord insertion, and kidneys appear unremarkable. The mid to lower spine and the three-vessel cord are not well seen. Biometrical measurements are as follows: Biparietal 4.2 cm, age 18 weeks 6 days. Head circumference 16.6 cm, age 19 weeks 3 days. Abdominal circumference 13.1 cm, age 18 weeks 5 days. Femur length 3.0 cm, age 19 weeks 2 days. Sonographic estimate age: 19 weeks 1 days. This is concordant with the gestational age of 18 weeks and 6 days based on the YARA of 07/09/2017 based on the first OB ultrasound. Sonographic estimated date of delivery: 07/07/2017. Estimated Weight: 265 gm (+/- 39 gm). LMP percentile: 49%. heart rate: 146 beats per minute. number: 1 of 1. IMPRESSION: Followup within 2 weeks is recommended to reevaluate the mid to lower spine and three-vessel cord, not well seen due to position on this exam. Dictated by: Dictated on workstation # [id number]
== END ==
LOC: RAD 08:54
PROVIDERS: ATTEND Family Medicine
DX: Z36 Encounter for antenatal screening of mother (principal); Z3A.16 16 weeks gestation of pregnancy
CPT/HCPCS: 76805

== ENCOUNTER 2017-02-15 22:24 | Emergency (ER) | payer MEDICAID ==
[~2017-02-15] VITALS: Ht 152.4 cm; Wt 82.6 kg
[2017-02-15 22:48] LABS: BILIRUBIN,URINE NEGATIVE (NEGATIVE); KETONES,URINE 2+ (NEGATIVE); LEUKOCYTE ESTERASE ,URINE 2+ (NEGATIVE); NITRITE,URINE NEGATIVE (NEGATIVE); PH,URINE 7 (5-9); PROTEIN,URINE 1+ (NEGATIVE); UROBILINOGEN,URINE 4 MG/DL (NORMAL)
[2017-02-15] MEDS ORDERED: CETI10CA PO (22:55)
[2017-02-15 22:56] LABS: SQUAMOUS EPITHELIAL CELL,UR TNTC /HPF; WBC,URINE 0-2 /HPF
[2017-02-15] MEDS ORDERED: LACTATED RINGERS 1,000 ML IV ONE (23:02)
[2017-02-15] MEDS ORDERED: diphenhydrAMINE 50 MG/ML INJ (BENADRYL) IVP ONE (23:15)
[2017-02-15 23:27] LABS: ANION GAP 8 MMOL/L (5-14); BLOOD UREA NITROGEN 8 MG/DL (7-18); BUN/CREATININE RATIO 12; CALCIUM 8.5 MG/DL (8.5-10.1); CARBON DIOXIDE 22 MMOL/L (21-32); CHLORIDE 108 MMOL/L (98-107); CREATININE SERUM 0.69 MG/DL (0.60-1.30); GFR ESTIMATED > 60; GLUCOSE 84 MG/DL (70-105); MAGNESIUM 1.9 MG/DL (1.8-2.4); POTASSIUM 3.7 MMOL/L (3.6-5.0); SODIUM 138 MMOL/L (135-145)
--- NOTE | 2017-02-15 23:48 | ED GU-Female ---
General Chief Complaint: -Female Stated Complaint: ABD PAIN/20WEEKS Nursing Triage Note: Amb to ED reporting pain in low pelvis since 2129. No bleeding reported. Pt was here 02/05/17 for severe back pain. Pt has went to her clinic today for sore throat and ear pain and prescribed Generic Zyrtec. Most recent ultrasound on 02/11/17 and patient reports to nurse she was told 19 weeks and 3 days then. Nursing Sepsis Screen: No Definite Risk Source: patient Exam Limitations: no limitations History of Present Illness Time seen by provider: 22:39 Initial Comments This 26-year-old young lady presents to the emergency room at approximately 20 weeks gestational age with complaints of suprapubic and umbilicus pain intermittently throughout the day. She does not routinely feel movements yet. No movement was felt today. She denies dysuria. She states she has been drinking water but her urine is still dark. She was seen recently for back pain for which she took muscle relaxers. She had some diarrhea today which she states is not unusual for her during pregnancies. She has an appointment scheduled for February 19 but didn't feel she could wait. heart tones are in the 140s by Doppler. She denies any vaginal symptoms such as bleeding, discharge, or loss of fluid. Allergies and Home Medications Allergies Coded Allergies: cefaclor (Unverified Allergy, Mild, 03/11/09) amoxicillin (Verified Allergy, Unknown, 07/09/14) Uncoded Allergies: BEE'S (Allergy, Unknown, 07/09/14) Home Medications Cetirizine HCl 10 Mg Capsule, 10 MG PO DAILY, (Reported) Cyclobenzaprine HCl 10 Mg Tablet, 10 MG PO TID PRN for SPASMS, #6 Prescribed by: ZARINA SAMPSON on 02/05/17 0109 Vit/Iron Fumarate/FA 1 Each Tablet, 1 EACH PO DAILY, (Reported) Constitutional: no symptoms reported EENTM: no symptoms reported Respiratory: no symptoms reported Cardiovascular: no symptoms reported Gastrointestinal: see HPI Genitourinary: see HPI : Yes Expected Date of Delivery: Jul 09, 2017 Musculoskeletal: no symptoms reported Skin: no symptoms reported Psychiatric/Neurological: No Symptoms Reported Endocrine: No Symptoms Reported Past Rjeyiue-Euierg-Pelakw Hx Patient Social History Alcohol Use: Denies Use Recreational Drug Use: No Smoking Status: Former Smoker Former Smoker/When Quit: Nov 20, 2013 Recent Foreign Travel: No Contact w/Someone Who Travel: No Recent Infectious Disease Expo: No Recent Hopitalizations: No Immunizations Up To Date Tetanus Booster (TDap): Less than 5yrs Date of Influenza Vaccine: Jun 29, 2014 Seasonal Allergies Seasonal Allergies: No Surgeries HX Surgeries: Yes Surgeries: Section, Orthopedic Respiratory Hx Respiratory Disorders: Yes Respiratory Disorders: Asthma Cardiovascular Hx Cardiac Disorders: Yes Cardiac Disorders: Heart Murmur Neurological Hx Neurological Disorders: No Reproductive System : Yes Hx : 4 Hx Para: 3 Hx Reproductive Disorders: No Genitourinary Hx Genitourinary Disorders: No Gastrointestinal Hx Gastrointestinal Disorders: No Musculoskeletal Hx Musculoskeletal Disorders: Yes Musculoskeletal Disorders: Chronic Back Pain Endocrine Hx Endocrine Disorders: No HEENT HX ENT Disorders: No Cancer Hx Cancer: No Psychosocial Hx Psychiatric Problems: No Integumentary HX Skin/Integumentary Disorder: No Blood Transfusions Hx Blood Disorders: No Adverse Reaction to a Blood Tr: No Family Medical History Significant Family History: No Pertinent Family Hx Physical Exam Vital Signs Vital Sign - Last 12Hours 02/15/17 22:34 Temp 98.1 Pulse 73 Resp 20 B/P (MAP) 125/69 Pulse Ox 97 O2 Delivery Room Air Capillary Refill : Less Than 3 Seconds General Appearance: WD/WN, no apparent distress HEENT: PERRL/EOMI, normal ENT inspection, pharynx normal Neck: normal inspection Cardiovascular: regular rate, rhythm, no edema, no murmur Respiratory: lungs clear, normal breath sounds, no respiratory distress, no accessory muscle use Gastrointestinal: normal bowel sounds, soft, tenderness (mild over the suprapubic and periumbilical regions), other (properly grounded for gestational age) Extremities: normal inspection, no pedal edema 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/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, no motor/sensory deficits, alert, normal mood/affect, oriented x 3 Skin: normal color, warm/dry Progress/Results/Core Measures Results/Orders Lab Results Laboratory Tests Test 02/15/17 22:42 02/15/17 23:05 Range/Units Urine Color YELLOW Urine Clarity SLIGHTLY CLOUDY Urine pH 7 5-9 Urine Specific [place] 1.015 L 1.016-1.022 Urine Protein 1+ H NEGATIVE Urine Glucose (UA) NEGATIVE NEGATIVE Urine Ketones 2+ H NEGATIVE Urine Nitrite NEGATIVE NEGATIVE Urine Bilirubin NEGATIVE NEGATIVE Urine Urobilinogen 4 H NORMAL MG/DL Urine Leukocyte Esterase 2+ H NEGATIVE Urine RBC (Auto) NEGATIVE NEGATIVE Urine RBC RARE /HPF Urine WBC 0-2 /HPF Urine Squamous Epithelial Cells TNTC H /HPF Urine Crystals NONE /LPF Urine Bacteria FEW H /HPF Urine Casts NONE /LPF Urine Mucus NEGATIVE /LPF Urine Culture Indicated NO Sodium Level 138 135-145 MMOL/L Potassium Level 3.7 3.6-5.0 MMOL/L Chloride Level 108 H 98-107 MMOL/L Carbon Dioxide Level 22 21-32 MMOL/L Anion Gap 8 5-14 MMOL/L Blood Urea Nitrogen 8 7-18 MG/DL Creatinine 0.69 0.60-1.30 MG/DL Estimat Glomerular Filtration Rate > 60 BUN/Creatinine Ratio 12 Glucose Level 84 70-105 MG/DL Calcium Level 8.5 8.5-10.1 MG/DL Magnesium Level 1.9 1.8-2.4 MG/DL My Orders Orders - ZARINA DAVIDSON MD Ua Culture If Indicated (02/15/17 22:39) Basic Metabolic Panel (02/15/17 23:02) Magnesium (02/15/17 23:02) Saline Lock/Iv-Start (02/15/17 23:02) Lactated Ringers (Lr 1000 Ml Iv Solution (02/15/17 23:02) Diphenhydramine Injection (Benadryl Inje (02/15/17 23:15) Medications Given in ED Vital Signs/I&O Blood Pressure Mean: 87 Progress Note : Progress Note Patient received a liter of LR and 25 mg of Benadryl IV. This resolved her symptoms and she returned home feeling improved. Departure Impression Impression: Primary Impression: Abdominal cramping Additional Impressions: Diarrhea Qualified Codes: R19.7 - Diarrhea, unspecified Hypovolemia Disposition: HOME, SELF-CARE Condition: Improved Departure-Patient Inst. Decision time for Depature: 23:45 Referrals: ZAYRA GOMEZ MD (PCP/Family) Primary Care Physician Patient Instructions: Diarrhea in Adolescents and Adults Add. Discharge Instructions: Drink plenty of clear liquids. Gradually advance your diet with small quantities of bland food as tolerated. Follow-up with your doctor as soon as possible. Return to emergency room if symptoms worsen. You may take Tylenol (acetaminophen) up to 1000 mg every 6 hours as needed for pain. Benadryl (diphenhydramine) 25 mg every 4 hours may be helpful for cramping. All discharge instructions reviewed with patient and/or family. Voiced understanding. Copy Copies To 1: ZAYRA GOMEZ MD, JOSHUA T MD February 15, 2017 23:48
[2017-02-16 00:21] VITALS: BP 106/72
== END 2017-02-16 00:21 | disposition home or self-care (01) ==
LOC: EDUNIT# 22:24 → ER 22:26
DX: O26.892 Other specified pregnancy related conditions, second trimester (principal); R10.30 Lower abdominal pain, unspecified; O99.612 Diseases of the digestive system complicating pregnancy, second trimester; R19.7 Diarrhea, unspecified; O99.282 Endocrine, nutritional and metabolic diseases complicating pregnancy, second trimester; E86.1 Hypovolemia; Z3A.19 19 weeks gestation of pregnancy; Z87.891 Personal history of nicotine dependence
CPT/HCPCS: 36415; 80048; 81000; 83735; 96361; 96374

== ENCOUNTER → 2017-02-21 | Emergency (ER) | payer MEDICAID ==
[~2017-02-21] VITALS: Ht 152.4 cm; Wt 82.8 kg
[~2017-02-21] MED LIST changes: +CETI10CA PO; +FAMO-119 PO
[2017-02-21 15:05] LABS: BASOPHILS % (AUTO) 0 % (0-10); EOSINOPHILS # (AUTO) 0.3 10^3/uL (0.0-0.3); EOSINOPHILS % (AUTO) 3 % (0-10); LYMPHOCYTES # (AUTO) 1.5 X 10^3 (1.0-4.0); LYMPHOCYTES % (AUTO) 17 % (12-44); MEAN CORPUSCULAR HEMOGLOBIN 31 PG (25-34); MEAN CORPUSCULAR HGB CONC 34 G/DL (32-36); MEAN CORPUSCULAR VOLUME 91 FL (80-99); MEAN PLATELET VOLUME 9.8 FL (7.4-10.4); MONOCYTES # (AUTO) 0.7 X 10^3 (0.0-1.0); MONOCYTES % (AUTO) 8 % (0-12); NEUTROPHILS # (AUTO) 6.4 X 10^3 (1.8-7.8); NEUTROPHILS % (AUTO) 73 % (42-75); PLATELET COUNT 215 10^3/uL (130-400); RED BLOOD COUNT 4.02 10^6/uL (4.35-5.85); WHITE BLOOD COUNT 8.7 10^3/uL (4.3-11.0)
[2017-02-21 15:07] LABS: BILIRUBIN,URINE NEGATIVE (NEGATIVE); KETONES,URINE 1+ (NEGATIVE); LEUKOCYTE ESTERASE ,URINE 2+ (NEGATIVE); NITRITE,URINE NEGATIVE (NEGATIVE); PH,URINE 6 (5-9); PROTEIN,URINE 1+ (NEGATIVE); UROBILINOGEN,URINE NORMAL (NORMAL)
[2017-02-21 15:20] LABS: SQUAMOUS EPITHELIAL CELL,UR 25-50 /HPF; WBC,URINE RARE /HPF
[2017-02-21 15:21] LABS: YEAST,URINE FEW /HPF
[2017-02-21 15:24] LABS: ALANINE AMINOTRANSFERASE 11 U/L (0-55); ALBUMIN 3.5 G/DL (3.2-4.5); ANION GAP 9 MMOL/L (5-14); ASPARTATE AMINO TRANSFERASE 12 U/L (5-34); BILIRUBIN,TOTAL 0.8 MG/DL (0.1-1.0); BLOOD UREA NITROGEN 6 MG/DL (7-18); BUN/CREATININE RATIO 10; CARBON DIOXIDE 24 MMOL/L (21-32); CHLORIDE 105 MMOL/L (98-107); GFR ESTIMATED > 60; GLUCOSE 105 MG/DL (70-105); POTASSIUM 3.5 MMOL/L (3.6-5.0); SODIUM 138 MMOL/L (135-145); TOTAL PROTEIN 6.4 G/DL (6.4-8.2)
[2017-02-21] MEDS: NS IV 1000 ML 1,000 ML IV ONE (15:50)
[2017-02-21] MEDS: diphenhydrAMINE 50 MG/ML INJ (BENADRYL) IVP ONE (15:51)
--- NOTE | 2017-02-21 16:33 | ED General ---
General Chief Complaint: Abdominal/GI Problems Stated Complaint: CRAMPING,DIZZINESS,SOA Nursing Triage Note: PT STATES UPPER ABD PAIN AND CRAMPING, DIZZY AND SEEING SPOTS. WAS IN THIS ER A COUPLE DAYS AGO AND DX WITH DEHYDRATION. Nursing Sepsis Screen: No Definite Risk Source of Information: Patient Exam Limitations: No Limitations History of Present Illness Time Seen by Provider: 14:37 Initial Comments This 26-year-old woman at approximately 20 weeks gestational age presents with complaints as above. She was outside in the sun all day yesterday swimming at a pond. She was recently treated for hypovolemia and uterine cramping. Her discomfort today is in the epigastric region. heart tones were 142. Allergies and Home Medications Allergies Coded Allergies: cefaclor (Unverified Allergy, Mild, 03/11/09) amoxicillin (Verified Allergy, Unknown, 07/09/14) Uncoded Allergies: BEE'S (Allergy, Unknown, 07/09/14) Home Medications Cetirizine HCl 10 Mg Capsule, 10 MG PO DAILY, (Reported) Famotidine 20 Mg Tablet, 20 MG PO BID, #60 Prescribed by: ZARINA SAMPSON on 02/21/17 1637 Vit/Iron Fumarate/FA 1 Each Tablet, 1 EACH PO DAILY, (Reported) Constitutional: no symptoms reported EENTM: no symptoms reported Respiratory: no symptoms reported Cardiovascular: no symptoms reported Gastrointestinal: see HPI Genitourinary: see HPI : Yes Expected Date of Delivery: Jul 09, 2017 Musculoskeletal: no symptoms reported Skin: no symptoms reported Psychiatric/Neurological: See HPI Past Mhfudmx-Vhmjrs-Qblkgn Hx Patient Social History Alcohol Use: Rarely Uses Recreational Drug Use: No Smoking Status: Current Someday Smoker Type Used: Cigarettes Former Smoker/When Quit: Nov 20, 2013 Recent Foreign Travel: No Contact w/Someone Who Travel: No Recent Infectious Disease Expo: No Recent Hopitalizations: No Immunizations Up To Date Tetanus Booster (TDap): Less than 5yrs Date of Influenza Vaccine: Jun 29, 2014 Seasonal Allergies Seasonal Allergies: No Surgeries HX Surgeries: Yes Surgeries: Section, Orthopedic Respiratory Hx Respiratory Disorders: Yes Respiratory Disorders: Asthma Cardiovascular Hx Cardiac Disorders: Yes Cardiac Disorders: Heart Murmur Neurological Hx Neurological Disorders: No Reproductive System : Yes (20 WEEKS) Hx : 4 Hx Para: 3 Hx Reproductive Disorders: No Genitourinary Hx Genitourinary Disorders: No Gastrointestinal Hx Gastrointestinal Disorders: Yes Gastrointestinal Disorders: Gastroesophageal Reflux Musculoskeletal Hx Musculoskeletal Disorders: Yes Musculoskeletal Disorders: Chronic Back Pain Endocrine Hx Endocrine Disorders: No HEENT HX ENT Disorders: No Cancer Hx Cancer: No Psychosocial Hx Psychiatric Problems: No Behavioral Health Disorders: Depression Integumentary HX Skin/Integumentary Disorder: No Blood Transfusions Hx Blood Disorders: No Adverse Reaction to a Blood Tr: No Family Medical History Significant Family History: No Pertinent Family Hx Physical Exam Vital Signs Vital Sign - Last 12Hours 02/21/17 14:45 Temp 97.8 Pulse 77 Resp 20 B/P (MAP) 136/62 Pulse Ox 99 O2 Delivery Room Air Capillary Refill : Less Than 3 Seconds General Appearance: No Apparent Distress, WD/WN HEENT: PERRL/EOMI, Normal ENT Inspection Neck: Normal Inspection Respiratory: Lungs Clear, Normal Breath Sounds, No Accessory Muscle Use, No Respiratory Distress Cardiovascular: Regular Rate, Rhythm, No Edema, No Murmur Gastrointestinal: Normal Bowel Sounds, Soft, Tenderness (minimal in the epigastrium) Extremity: Normal Inspection, No Pedal Edema Neurologic/Psychiatric: Alert, Oriented x3, No Motor/Sensory Deficits, Normal 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/Affect, 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 Norm as Tested Skin: Normal Color, Warm/Dry Progress/Results/Core Measures Results/Orders Lab Results Laboratory Tests Test 02/21/17 14:55 02/21/17 14:57 Range/Units White Blood Count 8.7 4.3-11.0 10^3/uL Red Blood Count 4.02 L 4.35-5.85 10^6/uL Hemoglobin 12.5 11.5-16.0 G/DL Hematocrit 36 35-52 % Mean Corpuscular Volume 91 80-99 FL Mean Corpuscular Hemoglobin 31 25-34 PG Mean Corpuscular Hemoglobin Concent 34 32-36 G/DL Red Cell Distribution Width 14.0 10.0-14.5 % Platelet Count 215 130-400 10^3/uL Mean Platelet Volume 9.8 7.4-10.4 FL Neutrophils (%) (Auto) 73 42-75 % Lymphocytes (%) (Auto) 17 12-44 % Monocytes (%) (Auto) 8 0-12 % Eosinophils (%) (Auto) 3 0-10 % Basophils (%) (Auto) 0 0-10 % Neutrophils # (Auto) 6.4 1.8-7.8 X 10^3 Lymphocytes # (Auto) 1.5 1.0-4.0 X 10^3 Monocytes # (Auto) 0.7 0.0-1.0 X 10^3 Eosinophils # (Auto) 0.3 0.0-0.3 10^3/uL Basophils # (Auto) 0.0 0.0-0.1 10^3/uL Sodium Level 138 135-145 MMOL/L Potassium Level 3.5 L 3.6-5.0 MMOL/L Chloride Level 105 98-107 MMOL/L Carbon Dioxide Level 24 21-32 MMOL/L Anion Gap 9 5-14 MMOL/L Blood Urea Nitrogen 6 L 7-18 MG/DL Creatinine 0.60 0.60-1.30 MG/DL Estimat Glomerular Filtration Rate > 60 BUN/Creatinine Ratio 10 Glucose Level 105 70-105 MG/DL Calcium Level 9.0 8.5-10.1 MG/DL Total Bilirubin 0.8 0.1-1.0 MG/DL Aspartate Amino Transf (AST/SGOT) 12 5-34 U/L Alanine Aminotransferase (ALT/SGPT) 11 0-55 U/L Alkaline Phosphatase 58 40-136 U/L Total Protein 6.4 6.4-8.2 G/DL Albumin 3.5 3.2-4.5 G/DL Serum Test, Qualitative POSITIVE NEGATIVE Urine Color YELLOW Urine Clarity VERY CLOUDY H Urine pH 6 5-9 Urine Specific [place] 1.025 H 1.016-1.022 Urine Protein 1+ H NEGATIVE Urine Glucose (UA) NEGATIVE NEGATIVE Urine Ketones 1+ H NEGATIVE Urine Nitrite NEGATIVE NEGATIVE Urine Bilirubin NEGATIVE NEGATIVE Urine Urobilinogen NORMAL NORMAL MG/DL Urine Leukocyte Esterase 2+ H NEGATIVE Urine RBC (Auto) NEGATIVE NEGATIVE Urine RBC NONE /HPF Urine WBC RARE /HPF Urine Squamous Epithelial Cells 25-50 H /HPF Urine Crystals NONE /LPF Urine Bacteria TRACE /HPF Urine Casts NONE /LPF Urine Mucus NEGATIVE /LPF Urine Yeast FEW H /HPF Urine Culture Indicated YES My Orders Orders - ZARINA DAVIDSON MD Cbc With Automated Diff (02/21/17 14:37) Comprehensive Metabolic Panel (02/21/17 14:37) Hcg,Qualitative Serum (02/21/17 14:37) Ua Culture If Indicated (02/21/17 14:37) Saline Lock/Iv-Start (02/21/17 14:37) Ns Iv 1000 Ml (Sodium Chloride 0.9%) (02/21/17 15:20) Diphenhydramine Injection (Benadryl Inje (02/21/17 15:30) Urine Culture (02/21/17 14:57) Medications Given in ED Current Medications Medications Dose Ordered Sig/Brook Route Start Time Stop Time Status Last Admin Dose Admin Diphenhydramine HCl 25 mg ONCE ONCE IVP 02/21/17 15:30 02/21/17 15:31 DC 02/21/17 15:51 25 MG Sodium Chloride 1,000 ml @ 0 mls/hr Q0M ONCE IV 02/21/17 15:20 02/21/17 15:21 DC 02/21/17 15:50 1,000 MLS/HR Vital Signs/I&O Vital Sign - Last 12Hours 02/21/17 02/21/17 14:45 17:01 Temp 97.8 98.3 Pulse 77 57 Resp 20 18 B/P (MAP) 136/62 Pulse Ox 99 100 O2 Delivery Room Air Blood Pressure Mean: 86 Progress Note : Progress Note Patient received a liter of IV fluids. Benadryl was given for cramping. She has a history of acid reflux in the past and has some epigastric tenderness. Dietary recommendations were provided and she was prescribed Pepcid. Departure Impression Impression: Primary Impression: Epigastric pain Disposition: HOME, SELF-CARE Condition: Improved Departure-Patient Inst. Decision time for Depature: 16:15 Referrals: ZAYRA GATES MD (PCP/Family) Primary Care Physician Patient Instructions: Acute Abdomen (Belly Pain), Adult (DC) Add. Discharge Instructions: Stay well-hydrated. You may use Tylenol (acetaminophen) for pain. Start Pepcid (famotidine) as prescribed. Follow-up with Dr. Gates as soon as possible. Return to care if symptoms worsen. Avoid the following: Large meals, eating close to bedtime, spicy foods, carbonation, caffeine, chocolate, mints, citrus fruits and juices, tomato products, fatty or greasy foods, NSAID medications such as ibuprofen or naproxen , alcohol, tobacco, or anything else you know irritate your stomach. All discharge instructions reviewed with patient and/or family. Voiced understanding. Scripts Famotidine (Pepcid) 20 Mg Tablet 20 MG PO BID, #60 TAB Prov: ZARINA DAVIDSON MD 02/21/17 Copy Copies To 1: ZAYRA GATES MD, JOSHUA T MD Feb 21, 2017 16:33
[2017-02-21 17:01] VITALS: BP 98/57
== END | disposition home or self-care (01) ==
LOC: EDUNIT# 14:28 → ER 14:29
DX: O26.892 Other specified pregnancy related conditions, second trimester (principal); R10.13 Epigastric pain; Z3A.20 20 weeks gestation of pregnancy; Z87.891 Personal history of nicotine dependence
CPT/HCPCS: 36415; 80053; 81000; 84703; 85025; 87088

== ENCOUNTER 2017-02-25 22:05 | Outpatient (CLI) | payer MEDICAID ==
[~2017-02-25] VITALS: Ht 152.4 cm; Wt 83.6 kg
[2017-02-25 22:20] VITALS: BP 115/56
[2017-02-25 22:48] LABS: BILIRUBIN,URINE NEGATIVE (NEGATIVE); KETONES,URINE 1+ (NEGATIVE); LEUKOCYTE ESTERASE ,URINE 1+ (NEGATIVE); NITRITE,URINE NEGATIVE (NEGATIVE); PH,URINE 6 (5-9); PROTEIN,URINE 1+ (NEGATIVE); UROBILINOGEN,URINE 1 MG/DL (NORMAL)
[2017-02-25 23:00] LABS: WBC,URINE 0-2 /HPF
[2017-02-25] MEDS ORDERED: MICO45CR11 VG (23:05)
[2017-02-25] MEDS ORDERED: fluCOnazole (DIFLUCAN) 100 MG TAB ONE (23:10)
[2017-02-25] MEDS ORDERED: fluCOnazole (DIFLUCAN) 100 MG TAB PO ONE (23:15)
--- NOTE | 2017-02-26 08:12 | Physician Query-Final Dx ---
SEAN YU 02/26/17 0812: Clinic Account Progress/Dx Physician Query: Please give diagnosis Date of Service Feb 25, 2017 at 22:05 ZAYRA GOMEZ MD 02/26/17 0954: Clinic Account Progress/Dx DIAGNOSIS: Diagnosis 1. IUP at 21 weeks, non labor 2. Yeast vaginitis SEAN YU Feb 26, 2017 08:12 ZAYRA GOMEZ MD Feb 26, 2017 09:54
== END 2017-02-25 23:25 ==
LOC: LDRP 22:05 → WSo 22:05
PROVIDERS: ATTEND Family Medicine
DX: O23.92 Unspecified genitourinary tract infection in pregnancy, second trimester (principal); B37.3 Candidiasis of vulva and vagina; Z3A.21 21 weeks gestation of pregnancy
CPT/HCPCS: 81000; 87210; 99214

== ENCOUNTER → 2017-02-28 | Outpatient (CLI) | payer MEDICAID ==
[~2017-02-28] MED LIST changes: +MICO45CR11 VG; +ONDN4T PO; +RT-ALBUINH IH
--- NOTE | 2017-02-28 15:47 | Diagnostic Imaging Report ---
INDICATION: Followup spine and cord insertion anatomy. TECHNIQUE: Multiple real-time grayscale images were obtained over the gravid uterus. COMPARISON: 02/11/2017. FINDINGS: The spine and three-vessel cord were well visualized on today's exam. Single live intrauterine is again demonstrated. Normal amniotic fluid index. Grade 2 placenta is located anteriorly with no placenta previa. heart rate measures 146 beats per minute. presentation is breech. IMPRESSION: 1. Good visualization of the spine and three-vessel cord on today's exam. Dictated by: Dictated on workstation # [id number]
== END ==
LOC: RAD 13:12
PROVIDERS: ATTEND Family Medicine
DX: Z34.92 Encounter for supervision of normal pregnancy, unspecified, second trimester (principal); Z36 Encounter for antenatal screening of mother
CPT/HCPCS: 76816

== ENCOUNTER 2017-03-04 15:25 | Outpatient (CLI) | payer MEDICAID ==
[~2017-03-04] VITALS: Ht 152.4 cm; Wt 84.8 kg
[~2017-03-04 15:25] MED LIST changes: -ONDN4T PO; -RT-ALBUINH IH
[2017-03-04 15:54] VITALS: BP 116/65
[2017-03-04] MEDS ORDERED: RT-ALBUINH IH ×2 (15:59)
[2017-03-04 16:12] LABS: BILIRUBIN,URINE NEGATIVE (NEGATIVE); KETONES,URINE NEGATIVE (NEGATIVE); LEUKOCYTE ESTERASE ,URINE 2+ (NEGATIVE); NITRITE,URINE NEGATIVE (NEGATIVE); PH,URINE 7 (5-9); PROTEIN,URINE NEGATIVE (NEGATIVE); UROBILINOGEN,URINE NORMAL (NORMAL)
[2017-03-04 16:25] LABS: SQUAMOUS EPITHELIAL CELL,UR >50 /HPF
[2017-03-04] MEDS ORDERED: ONDN4T PO ×2 (16:57)
--- NOTE | 2017-03-05 16:01 | Physician Query-Final Dx ---
SEAN YU 03/05/17 1601: Clinic Account Progress/Dx Physician Query: Please give diagnosis Date of Service Mar 04, 2017 at 15:25 ZAYRA GOMEZ MD 03/06/17 0735: Clinic Account Progress/Dx DIAGNOSIS: Diagnosis 1. IUP at 22 weeks gestation 2. Gastroenteritis, viral SEAN YU Mar 05, 2017 16:01 ZAYRA GOMEZ MD Mar 06, 2017 07:35
== END 2017-03-04 17:10 | disposition home or self-care (01) ==
LOC: LDRP 15:25 → WSo 15:25
PROVIDERS: ATTEND Family Medicine
DX: O98.512 Other viral diseases complicating pregnancy, second trimester (principal); A08.4 Viral intestinal infection, unspecified; Z3A.22 22 weeks gestation of pregnancy
CPT/HCPCS: 81000; 87088; 87186; 99213

== ENCOUNTER 2017-03-18 16:16 | Outpatient (CLI) | payer MEDICAID ==
[~2017-03-18] VITALS: Ht 152.4 cm; Wt 84.4 kg
[~2017-03-18 16:16] MED LIST changes: +ONDN4T PO; +RT-ALBUINH IH
[2017-03-18 16:35] VITALS: BP 110/55
[2017-03-18 16:48] LABS: BILIRUBIN,URINE NEGATIVE (NEGATIVE); KETONES,URINE NEGATIVE (NEGATIVE); LEUKOCYTE ESTERASE ,URINE 2+ (NEGATIVE); NITRITE,URINE NEGATIVE (NEGATIVE); PH,URINE 7 (5-9); PROTEIN,URINE NEGATIVE (NEGATIVE); UROBILINOGEN,URINE NORMAL (NORMAL)
[2017-03-18] MEDS ORDERED: NITR-65 PO (17:11)
--- NOTE | 2017-03-19 17:09 | Physician Query-Final Dx ---
SEAN YU 03/19/17 1709: Clinic Account Progress/Dx Physician Query: Please give diagnosis Date of Service Mar 18, 2017 at 16:16 ZAYRA GOMEZ MD 04/01/17 0733: Clinic Account Progress/Dx DIAGNOSIS: Diagnosis 1. Abdominal/pelvic pain, ligamentous 2. 2nd trimester SEAN YU Mar 19, 2017 17:09 ZAYRA GOMEZ MD Apr 01, 2017 07:33
[2017-07-03] MEDS ORDERED: IBUP-1780 PO (07:16)
[2017-07-03] MEDS ORDERED: OXYC-465 PO (07:16)
[2017-07-03] MEDS ORDERED: DOCU100C37 PO (07:16)
== END 2017-03-18 17:24 | disposition home or self-care (01) ==
LOC: WSo 16:16 → LDRP 16:16 → WSo 17:24
PROVIDERS: ATTEND Family Medicine
DX: Z3A.23 23 weeks gestation of pregnancy; R10.2 Pelvic and perineal pain; O99.89 Other specified diseases and conditions complicating pregnancy, childbirth and the puerperium
CPT/HCPCS: 81000; 87088; 99212

== ENCOUNTER 2017-04-03 19:44 | Outpatient (CLI) | payer MEDICAID ==
[~2017-04-03] VITALS: Ht 152.4 cm; Wt 86.2 kg
[2017-04-03 20:06] VITALS: BP 124/59
[2017-04-03 20:33] LABS: BILIRUBIN,URINE NEGATIVE (NEGATIVE); KETONES,URINE NEGATIVE (NEGATIVE); LEUKOCYTE ESTERASE ,URINE 1+ (NEGATIVE); NITRITE,URINE NEGATIVE (NEGATIVE); PH,URINE 8 (5-9); PROTEIN,URINE NEGATIVE (NEGATIVE); UROBILINOGEN,URINE NORMAL (NORMAL)
[2017-04-03 20:44] LABS: SQUAMOUS EPITHELIAL CELL,UR 25-50 /HPF
[2017-04-03] MEDS ORDERED: ACET325T38 PO (21:37)
[2017-04-03] MEDS ORDERED: ESCI5TAB PO (21:37)
--- NOTE | 2017-04-04 10:30 | Physician Query-Final Dx ---
SEAN YU 04/04/17 1030: Clinic Account Progress/Dx Physician Query: Please give diagnosis Date of Service Apr 03, 2017 at 19:44 ZAYRA GOMEZ MD 04/14/17 0735: Clinic Account Progress/Dx DIAGNOSIS: Diagnosis 1. IUP in second trimester 2. Decreased movement--reassuring pattern SEAN YU Apr 04, 2017 10:30 ZAYRA GOMEZ MD Apr 14, 2017 07:35
== END 2017-04-03 21:45 | disposition home or self-care (01) ==
LOC: WSo 19:44 → LDRP 19:44 → WSo 21:45
PROVIDERS: ATTEND Family Medicine
DX: O36.8120 Decreased fetal movements, second trimester, not applicable or unspecified (principal); Z3A.26 26 weeks gestation of pregnancy
CPT/HCPCS: 81000; 87088; 99213

== ENCOUNTER 2017-04-13 11:47 | Outpatient (CLI) | payer MEDICAID ==
[~2017-04-13] VITALS: Ht 152.4 cm; Wt 85.3 kg
[~2017-04-13 11:47] MED LIST changes: +ACET325T38 PO; +ESCI5TAB PO
[2017-04-13 12:00] VITALS: BP 126/58
[2017-04-13] MEDS ORDERED: DIPH25CA79 PO (12:51)
[2017-04-13 13:05] VITALS: BP 126/58
--- NOTE | 2017-04-14 13:12 | Physician Query-Final Dx ---
ESAN YU 04/14/17 1312: Clinic Account Progress/Dx Physician Query: Please give diagnosis Date of Service Apr 13, 2017 at 11:47 DERICK PORRAS DO 05/03/17 0942: Clinic Account Progress/Dx DIAGNOSIS: Diagnosis 1. - 27 weeks gestation 2. Headache 3. hip pain SEAN YU Apr 14, 2017 13:12 DERICK PORRAS DO May 03, 2017 09:42
== END 2017-04-13 13:05 | disposition home or self-care (01) ==
LOC: WSo 11:47 → LDRP 11:48 → WSo 13:05
PROVIDERS: ATTEND Family Medicine
DX: O99.89 Other specified diseases and conditions complicating pregnancy, childbirth and the puerperium (principal); R51 Headache; M25.551 Pain in right hip; M25.552 Pain in left hip; Z3A.27 27 weeks gestation of pregnancy
CPT/HCPCS: 99213

== ENCOUNTER 2017-04-21 13:45 | Outpatient (CLI) | payer MEDICAID ==
[~2017-04-21] VITALS: Ht 152.4 cm; Wt 85.7 kg
[~2017-04-21 13:45] MED LIST changes: +DIPH25CA79 PO
[2017-04-21 14:22] VITALS: BP 117/74
[2017-04-21 14:28] VITALS: BP 117/74
[2017-04-21 14:40] VITALS: BP 117/74
--- NOTE | 2017-04-22 17:03 | Physician Query-Final Dx ---
ASHLEY RUSSELL 04/22/17 1703: Clinic Account Progress/Dx Physician Query: Please give diagnosis Date of Service Apr 21, 2017 at 13:45 ZAYRA GOMEZ MD 04/25/17 0737: Clinic Account Progress/Dx DIAGNOSIS: Diagnosis 1. Decreased movement--reassuring ASHLEY RUSSELL Apr 22, 2017 17:03 ZAYRA GOMEZ MD Apr 25, 2017 07:37
== END 2017-04-21 14:40 | disposition home or self-care (01) ==
LOC: WSo 13:45 → LDRP 13:45 → WSo 14:40
PROVIDERS: ATTEND Family Medicine
DX: O36.8130 Decreased fetal movements, third trimester, not applicable or unspecified (principal); Z3A.28 28 weeks gestation of pregnancy
CPT/HCPCS: 59025

== ENCOUNTER 2017-05-01 23:12 | Outpatient (CLI) | payer MEDICAID ==
[~2017-05-01] VITALS: Ht 152.4 cm; Wt 85.7 kg
[2017-05-01 23:30] VITALS: BP 137/70
[2017-05-01 23:40] LABS: BILIRUBIN,URINE NEGATIVE (NEGATIVE); KETONES,URINE NEGATIVE (NEGATIVE); LEUKOCYTE ESTERASE ,URINE 2+ (NEGATIVE); NITRITE,URINE NEGATIVE (NEGATIVE); PH,URINE 7 (5-9); PROTEIN,URINE 1+ (NEGATIVE); UROBILINOGEN,URINE 4 MG/DL (NORMAL)
[2017-05-02] MEDS ORDERED: NS IV 1000 ML 1,000 ML IV ONE
[2017-05-02] MEDS ORDERED: NS IV 1000 ML 1,000 ML IV SCH (01:30)
--- NOTE | 2017-05-02 13:44 | Physician Query-Final Dx ---
ASHLEY RUSSELL 05/02/17 1344: Clinic Account Progress/Dx Physician Query: Please give diagnosis Date of Service May 01, 2017 at 23:12 ALAN SUAREZ MD 05/02/17 1740: Clinic Account Progress/Dx DIAGNOSIS: Diagnosis 32 weeks gestation Fall onto abdomen in bathtub/contractions- no cervical change, no bleeding, resolved contractions with IVF, no distress over 4 hours of monitoring ASHLEY RUSSELL May 02, 2017 13:44 ALAN SUAREZ MD May 02, 2017 17:40
== END 2017-05-02 03:44 | disposition home or self-care (01) ==
LOC: WSo 23:12 → LDRP 23:13 → WSo 05-02 03:44
PROVIDERS: ATTEND Family Medicine
DX: Z04.3 Encounter for examination and observation following other accident (principal); Z3A.32 32 weeks gestation of pregnancy
CPT/HCPCS: 81000; 87088; 96360; 96361; 99213

== ENCOUNTER 2017-05-15 18:36 | Outpatient (CLI) | payer MEDICAID ==
[2017-05-15] VITALS (7 sets, daily range): BP systolic 108–119; BP diastolic 59–76
[2017-05-15 19:29] LABS: BILIRUBIN,URINE NEGATIVE (NEGATIVE); KETONES,URINE NEGATIVE (NEGATIVE); LEUKOCYTE ESTERASE ,URINE 2+ (NEGATIVE); NITRITE,URINE NEGATIVE (NEGATIVE); PH,URINE 7 (5-9); PROTEIN,URINE 2+ (NEGATIVE); UROBILINOGEN,URINE 4 MG/DL (NORMAL)
[2017-05-15] MEDS ORDERED: NITROFURANTOIN 100 MG (MACROBID) CAPSULE PO ONE (20:00)
--- NOTE | 2017-05-16 09:51 | Physician Query-Final Dx ---
SEAN YU 05/16/17 0950: Clinic Account Progress/Dx Physician Query: Please give diagnosis Date of Service May 15, 2017 at 18:36 DERICK PORRAS DO 06/03/17 0618: Clinic Account Progress/Dx DIAGNOSIS: Diagnosis 1. 32 wk GA 2. contractions, not in active labor 3. possible UTI SEAN YU May 16, 2017 09:50 DERICK PORRAS DO Jun 03, 2017 06:18
== END 2017-05-15 21:06 | disposition home or self-care (01) ==
LOC: WSo 18:36 → LDRP 18:37 → WSo 21:06
PROVIDERS: ATTEND Family Medicine
DX: O47.03 False labor before 37 completed weeks of gestation, third trimester (principal); Z3A.32 32 weeks gestation of pregnancy
CPT/HCPCS: 81000; 87088; 99214

== ENCOUNTER 2017-05-29 21:54 | Outpatient (CLI) | payer MEDICAID ==
[~2017-05-29] VITALS: Ht 152.4 cm; Wt 86.2 kg
[2017-05-29 22:15] VITALS: BP 129/68
[2017-05-29 22:43] LABS: BILIRUBIN,URINE NEGATIVE (NEGATIVE); KETONES,URINE 3+ (NEGATIVE); LEUKOCYTE ESTERASE ,URINE 3+ (NEGATIVE); NITRITE,URINE NEGATIVE (NEGATIVE); PH,URINE 5 (5-9); PROTEIN,URINE 2+ (NEGATIVE); UROBILINOGEN,URINE 4 MG/DL (NORMAL)
[2017-05-29 22:52] LABS: CALCIUM OXALATE CRYSTALS,UR RARE /LPF; SQUAMOUS EPITHELIAL CELL,UR >50 /HPF
[2017-05-29] MEDS ORDERED: D5 LR IV SOLUTION 1,000 ML IV ONE ×2 (22:58→23:30)
--- NOTE | 2017-05-30 12:54 | Physician Query-Final Dx ---
ASHLEY RUSSELL 05/30/17 1254: Clinic Account Progress/Dx Physician Query: Please give diagnosis Date of Service May 29, 2017 at 21:54 ZAYRA GOMEZ MD 06/01/17 2239: Clinic Account Progress/Dx DIAGNOSIS: Diagnosis 1. IUP at 30 weeks non labor 2. Uterine irritability ASHLEY RUSSELL May 30, 2017 12:54 ZAYRA GOMEZ MD Jun 01, 2017 22:39
[2017-07-03] MEDS ORDERED: IBUP-1780 PO (07:16)
[2017-07-03] MEDS ORDERED: OXYC-465 PO (07:16)
[2017-07-03] MEDS ORDERED: DOCU100C37 PO (07:16)
== END 2017-05-30 00:55 | disposition home or self-care (01) ==
LOC: LDRP 21:54 → WSo 21:54
PROVIDERS: ATTEND Family Medicine
DX: O47.03 False labor before 37 completed weeks of gestation, third trimester (principal); Z3A.30 30 weeks gestation of pregnancy
CPT/HCPCS: 81000; 87088; 96360; 99213

== ENCOUNTER 2017-06-25 09:42 | Outpatient (CLI) | payer MEDICAID ==
[~2017-06-25] VITALS: Ht 152.4 cm; Wt 90.3 kg
[2017-06-25 09:47] VITALS: BP 118/76
== END 2017-06-25 10:15 | disposition home or self-care (01) ==
LOC: PREOP 09:42
PROVIDERS: ATTEND Obstetrics & Gynecology
DX: Z01.818 Encounter for other preprocedural examination; O34.219 Maternal care for unspecified type scar from previous cesarean delivery; Z3A.00 Weeks of gestation of pregnancy not specified
CPT/HCPCS: 87081

== ENCOUNTER 2017-06-29 21:50 | Outpatient (CLI) | payer MEDICAID ==
[~2017-06-29] VITALS: Ht 152.4 cm; Wt 90.7 kg
[2017-06-29 22:10] VITALS: BP 115/62
[2017-06-29 22:20] LABS: BILIRUBIN,URINE NEGATIVE (NEGATIVE); KETONES,URINE NEGATIVE (NEGATIVE); LEUKOCYTE ESTERASE ,URINE 1+ (NEGATIVE); NITRITE,URINE NEGATIVE (NEGATIVE); PH,URINE 6 (5-9); PROTEIN,URINE NEGATIVE (NEGATIVE); UROBILINOGEN,URINE NORMAL (NORMAL)
[2017-06-29 22:32] LABS: SQUAMOUS EPITHELIAL CELL,UR 25-50 /HPF
[2017-06-29 22:40] VITALS: BP 113/63
--- NOTE | 2017-06-30 13:46 | Physician Query-Final Dx ---
SEAN YU 06/30/17 1346: Clinic Account Progress/Dx Physician Query: Please give diagnosis Date of Service Jun 29, 2017 at 21:50 JOSE RAUL FONG DO 07/15/17 0810: Clinic Account Progress/Dx DIAGNOSIS: Diagnosis threatened labor SEAN YU Jun 30, 2017 13:46 JOSE RAUL FONG DO Jul 15, 2017 08:10
[2017-07-03] MEDS ORDERED: IBUP-1780 PO (07:16)
[2017-07-03] MEDS ORDERED: DOCU100C37 PO (07:16)
[2017-07-03] MEDS ORDERED: OXYC-465 PO (07:16)
== END 2017-06-29 22:59 ==
LOC: WSo 21:50 → LDRP 21:50 → WSo 22:59
PROVIDERS: ATTEND Family Medicine
DX: O47.1 False labor at or after 37 completed weeks of gestation (principal); Z3A.38 38 weeks gestation of pregnancy
CPT/HCPCS: 81000; 99212

== ENCOUNTER 2017-07-02 06:03 | Inpatient (IN) | payer MEDICAID ==
[~2017-07-02] VITALS: Ht 152.4 cm; Wt 89.4 kg
[~2017-07-02 06:03] MED LIST changes: +CITRIC ACID/SOB CIT (BICITRA) 30 ML UDC ONE; +FAMOTIDINE 20MG/2ML IV (PEPCID) ONE; +LACTATED RINGERS 1,000 ML IV ONE; +METOCLOPRAMIDE INJ 10 MG/2 ML (REGLAN) ONE
--- OUTSIDE RECORDS SUMMARY | 2017-07-02 06:07 | XMS REPORT ---
Author Author ANNE COLLADO Organization [facility] Address [address] [place] [address] Care Team Providers Care Supervisor Laundry Name Role Phone LIDIA COLLADOY Unavailable PROBLEMS Type Condition ICD9-CM Code [id number] Code Onset Dates Condition Status SNOMED Code Problem Seasonal allergic rhinitis, unspecified allergic rhinitis trigger J30.2 Active 580452410 Problem Irregular periods/menstrual cycles N92.6 Active 08214016 Problem Depression, unspecified depression type F32.9 Active 91584759 ALLERGIES Substance Reaction Event Type Date Status Cefaclor Unknown Drug Allergy Sep, Active SOCIAL HISTORY No smoking Hx information available PLAN OF CARE Activity Details Follow Up prn with PCP Reason: VITAL SIGNS Height 61 in 2016-10-16 Weight 105.4 lbs 2016-10-16 Temperature 99.2 degrees Fahrenheit 2016-10-16 Heart Rate 82 bpm 2016-10-16 Respiratory Rate 18 2016-10-16 BMI 19.91 kg/m2 2016-10-16 Blood pressure systolic 130 mmHg 2016-10-16 Blood pressure diastolic 90 mmHg 2016-10-16 MEDICATIONS Medication Instructions Dosage Frequency Start Date End Date Duration Status Lexapro 20 mg Orally Once a day 1 24h May, Active Zofran 4 MG Orally Once a day 1 tablets 24h Sep, 30 day(s) Active RESULTS Name Result Date Reference Range TEST, URINE (IN HOUSE) 2016-10-16 RESULTS negative Lot # [id number] Control + Exp date 13515 STREP A (IN HOUSE) 2016-10-16 STREP A negative Control + Lot # [id number] Exp date 07/2017 PROCEDURES Procedure Date Ordered Related Diagnosis Body Site EAR LAVAGE 2016-10-16 N/A URINE TEST Oct 16, 2016 EAR IRRIGATION Oct 16, 2016 STREP A ASSAY W/OPTIC Oct 16, 2016 Office Visit, Est Pt., Level 3 Oct 16, 2016 IMMUNIZATIONS No Known Immunizations
--- OUTSIDE RECORDS SUMMARY | 2017-07-02 06:07 | XMS REPORT ---
Author Author ALAN SUAREZ [facility] Address [address] [place] [address] Care Team Providers Care Traffic Control Technician Name Role Phone ALAN SUAREZ Unavailable PROBLEMS Type Condition ICD9-CM Code LPL92-DS Code Onset Dates Condition Status SNOMED Code Problem Seasonal allergic rhinitis, unspecified allergic rhinitis trigger J30.2 Active 853753692 Problem Irregular periods/menstrual cycles N92.6 Active 06405399 Problem Depression, unspecified depression type F32.9 Active 75686308 ALLERGIES Substance Reaction Event Type Date Status Cefaclor Unknown Drug Allergy Oct, Active SOCIAL HISTORY Never Assessed PLAN OF CARE VITAL SIGNS MEDICATIONS Unknown Medications RESULTS No Results PROCEDURES No Known procedures IMMUNIZATIONS No Known Immunizations MEDICAL (GENERAL) HISTORY Type Description Date Medical History Heart murmur Medical History Asthma Medical History Depression, unspecified depression type Surgical History section x 2 2012 & 2014 Surgical History orthopedic surgery-ligament repair, left ankle Hospitalization History Dehydration during multiple stays Hospitalization History Childbirth
--- OUTSIDE RECORDS SUMMARY | 2017-07-02 06:07 | XMS REPORT ---
Author Author ZAYRA GOMEZ [facility] Address [address] [place] [address] Care Team Providers Care Casing Material Weigher Name Role Phone ZAYRA GOMEZ Unavailable PROBLEMS Type Condition ICD9-CM Code YWA22-LO Code Onset Dates Condition Status SNOMED Code Problem Seasonal allergic rhinitis, unspecified allergic rhinitis trigger J30.2 Active 184459575 Problem Irregular periods/menstrual cycles N92.6 Active 21396476 Problem Depression, unspecified depression type F32.9 Active 39183798 ALLERGIES No Information SOCIAL HISTORY Never Assessed PLAN OF CARE [...]
--- OUTSIDE RECORDS SUMMARY | 2017-07-02 06:07 | XMS REPORT ---
Author Author MADISON BRODERICK Organization [facility] Address [address] [place] [address] Care Team Providers Care Groover Operator Name Role Phone WALLACEBRODERICK Wagoner Unavailable PROBLEMS Type Condition ICD9-CM Code ZFL32-KA Code Onset Dates Condition Status SNOMED Code Problem Seasonal allergic rhinitis, unspecified allergic rhinitis trigger J30.2 Active 943182739 Problem Irregular periods/menstrual cycles N92.6 Active 80114933 Problem Depression, unspecified depression type F32.9 Active 86175769 ALLERGIES Substance Reaction Event Type Date Status Cefaclor Unknown Drug Allergy Oct, Active SOCIAL HISTORY Never Assessed PLAN OF CARE Activity Details Follow Up prn Reason: VITAL SIGNS Height 61 in 2016-11-18 Weight 192.8 lbs 2016-11-18 Temperature 98.2 degrees Fahrenheit 2016-11-18 Heart Rate 76 bpm 2016-11-18 Respiratory Rate 20 2016-11-18 BMI 36.43 kg/m2 2016-11-18 Blood pressure systolic 106 mmHg 2016-11-18 Blood pressure diastolic 64 mmHg 2016-11-18 MEDICATIONS Medication Instructions Dosage Frequency Start Date End Date Duration Status Zofran 4 MG Orally every 8 hours, PRN 1 tablets Sep, 14 days Active Tylenol Active RESULTS No Results PROCEDURES No Known procedures IMMUNIZATIONS No Known Immunizations MEDICAL (GENERAL) HISTORY Type Description Date Medical History Heart murmur Medical History Asthma Medical History Depression, unspecified depression type Surgical History section x 2 2012 & 2013 Surgical History orthopedic surgery-ligament repair, left ankle Hospitalization History Dehydration during multiple stays Hospitalization History Childbirth
--- OUTSIDE RECORDS SUMMARY | 2017-07-02 06:07 | XMS REPORT ---
Author Author DERICK PORRAS [facility] Address [address] [place] [address] Care Team Providers Care Diesel Locomotive Firer Name Role Phone DERICK PORRAS Unavailable PROBLEMS Type Condition ICD9-CM Code NDN60-BP Code Onset Dates Condition Status SNOMED Code Problem Seasonal allergic rhinitis, unspecified allergic rhinitis trigger J30.2 Active 482212418 Problem Irregular periods/menstrual cycles N92.6 Active 14946787 Problem Depression, unspecified depression type F32.9 Active 63065817 ALLERGIES No Information SOCIAL HISTORY Never Assessed PLAN OF CARE VITAL SIGNS MEDICATIONS Unknown Medications RESULTS Name Result Date Reference Range TEST, URINE (IN HOUSE) 2016-11-11 RESULTS Positive Lot # [id number] Control + Exp date 12/2017 PROCEDURES Procedure Date Ordered Result Body Site URINE TEST Nov 11, 2016 IMMUNIZATIONS No Known Immunizations MEDICAL (GENERAL) HISTORY Type Description Date Medical History Heart murmur Medical History Asthma Medical History Depression, unspecified depression type Surgical History section x 2 2012 & 2013 Surgical History orthopedic surgery-ligament repair, left ankle Hospitalization History Dehydration during multiple stays Hospitalization History Childbirth
--- OUTSIDE RECORDS SUMMARY | 2017-07-02 06:10 | XMS REPORT ---
Author Author ZAYRA GOMEZ [facility] Address [address] [place] [address] Care Team Providers Care Tree Surgeon Name Role Phone ZAYRA GOMEZ Unavailable PROBLEMS Type Condition ICD9-CM Code IFB09-GV Code Onset Dates Condition Status SNOMED Code Problem Seasonal allergic rhinitis, unspecified allergic rhinitis trigger J30.2 Active 900534508 Problem Irregular periods/menstrual cycles N92.6 Active 30538132 Problem Depression, unspecified depression type F32.9 Active 50814158 ALLERGIES No Information SOCIAL HISTORY Never Assessed PLAN OF CARE Activity Details Follow Up 4 Weeks Reason: VITAL SIGNS Height 61 in 2016-11-27 Weight 190.0 lbs 2016-11-27 Temperature 98.4 degrees Fahrenheit 2016-11-27 Heart Rate 77 bpm 2016-11-27 Respiratory Rate 18 2016-11-27 BMI 35.9 kg/m2 2016-11-27 Blood pressure systolic 132 mmHg 2016-11-27 Blood pressure diastolic 83 mmHg 2016-11-27 MEDICATIONS Medication Instructions Dosage Frequency Start Date End Date Duration Status Zofran 4 MG Orally every 8 hours, PRN 1 tablets Sep, 14 days Active Vol-Care Rx 1 MG Orally Once a day 1 tablet 24h Nov, 90 days Active RESULTS Name Result Date Reference Range TSH () 2016-11-27 TSH 0.400 0.450-4.500 PAP TEST, HPV IF ASCUS 2016-11-27 DIAGNOSIS: Specimen adequacy: Clinician provided ICD10: Performed by: . . Pathologist provided ICD10: Note: . CBC 2016-11-27 WBC 8.1 3.4-10.8 RBC 4.31 3.77-5.28 Hemoglobin 13.5 11.1-15.9 Hematocrit 39.2 34.0-46.6 MCV 91 79-97 MCH 31.3 26.6-33.0 MCHC 34.4 31.5-35.7 RDW 13.0 12.3-15.4 Platelets 269 150-379 Neutrophils 66 Lymphs 24 Monocytes 8 Eos 2 Basos 0 Neutrophils (Absolute) 5.3 1.4-7.0 Lymphs (Absolute) 2.0 0.7-3.1 Monocytes(Absolute) 0.7 0.1-0.9 Eos (Absolute) 0.1 0.0-0.4 Baso (Absolute) 0.0 0.0-0.2 Immature Granulocytes 0 Immature Grans (Abs) 0.0 0.0-0.1 ANTIBODY SCREEN 2016-11-27 Antibody Screen Negative Negative RUBELLA ANTIBODIES, IgG 2016-11-27 Rubella Antibodies, IgG 1.43 Immune >0.99 CULTURE, GENITAL 2016-11-27 Genital Culture, Routine Final report Result 1 CULTURE, URINE 2016-11-27 Urine Culture, Routine Final report Result 1 No growth GC/CHLAM PROBE (STATE) 2016-11-27 CHLAMYDIA GC TRICHOMONAS (IN HOUSE) 2016-11-27 TRICHOMONAS Negative Control + Lot # [id number] Exp date URINE DRUG SCREEN (IN HOUSE) 2016-11-27 Lot # [id number] Exp date Control + COCAINE Negative AMPH Negative MTD Negative THC Negative OPIATE Negative BENZO Negative PCP Negative BAR Negative OXY Negative MAMP Negative TCA Negative BUP Negative MDMA Negative UA LONG DIP (IN HOUSE) 2016-11-27 Lot # [id number] Exp date Clarity Turbid Color DarkYellow Odor Yes GLU Negative SARMAD Negative KET Negative SG >-1.030 BLO Negative pH 6.0 Protein 1+ URO 1.0 NIT Negative ROSENDA Negative Lot # Exp PDF Report 2016-11-27 PDF Report1 LCLS BACTERIAL VAGINOSIS (IN HOUSE) 2016-11-27 RESULTS Negative Control + Lot # [id number] Exp date Ultrasound : OB, Early <14 WEEKS 2016-12-02 TSH () 2016-11-27 TSH 0.400 0.450-4.500 PAP TEST, HPV IF ASCUS 2016-11-27 DIAGNOSIS: Specimen adequacy: Clinician provided ICD10: Performed by: . . Pathologist provided ICD10: Note: . CBC 2016-11-27 WBC 8.1 3.4-10.8 RBC 4.31 3.77-5.28 Hemoglobin 13.5 11.1-15.9 Hematocrit 39.2 34.0-46.6 MCV 91 79-97 MCH 31.3 26.6-33.0 MCHC 34.4 31.5-35.7 RDW 13.0 12.3-15.4 Platelets 269 150-379 Neutrophils 66 Lymphs 24 Monocytes 8 Eos 2 Basos 0 Neutrophils (Absolute) 5.3 1.4-7.0 Lymphs (Absolute) 2.0 0.7-3.1 Monocytes(Absolute) 0.7 0.1-0.9 Eos (Absolute) 0.1 0.0-0.4 Baso (Absolute) 0.0 0.0-0.2 Immature Granulocytes 0 Immature Grans (Abs) 0.0 0.0-0.1 ANTIBODY SCREEN 2016-11-27 Antibody Screen Negative Negative RUBELLA ANTIBODIES, IgG 2016-11-27 Rubella Antibodies, IgG 1.43 Immune >0.99 CULTURE, GENITAL 2016-11-27 Genital Culture, Routine Final report Result 1 CULTURE, URINE 2016-11-27 Urine Culture, Routine Final report Result 1 No growth GC/CHLAM PROBE (STATE) 2016-11-27 CHLAMYDIA GC SYPHILIS (STATE) 2016-11-27 TRICHOMONAS (IN HOUSE) 2016-11-27 TRICHOMONAS Negative Control + Lot # [id number] Exp date URINE DRUG SCREEN (IN HOUSE) 2016-11-27 Lot # [id number] Exp date Control + COCAINE Negative AMPH Negative MTD Negative THC Negative OPIATE Negative BENZO Negative PCP Negative BAR Negative OXY Negative MAMP Negative TCA Negative BUP Negative MDMA Negative UA LONG DIP (IN HOUSE) 2016-11-27 Lot # [id number] Exp date Clarity Turbid Color DarkYellow Odor Yes GLU Negative SARMAD Negative KET Negative SG >-1.030 BLO Negative pH 6.0 Protein 1+ URO 1.0 NIT Negative ROSENDA Negative Lot # Exp date PDF Report 2016-11-27 PDF Report1 LCLS BACTERIAL VAGINOSIS (IN HOUSE) 2016-11-27 RESULTS Negative Control + Lot # [id number] Exp date Ultrasound : OB, Early <14 WEEKS 2016-12-02 HIV (STATE) 2016-11-27 HEP B SURFACE ANTIGEN (STATE) 2016-11-27 HEP B ANTIBODY HEP B ANTIBODY ([facility]) HEP B ANTIBODY ([facility]) PROCEDURES Procedure Date Ordered Result Body Site VENIPUNCT, ROUTINE* November 27, 2016 URINE CULTURE/COLONY COUNT November 27, 2016 URINALYSIS, AUTO, W/O SCOPE November 27, 2016 WEI VAG, DNA, DIR PROBE November 27, 2016 CULTURE, BACTERIA, OTHER November 27, 2016 TRICHOMONAS ASSAY W/OPTIC November 27, 2016 ASSAY THYROID STIM HORMONE November 27, 2016 RBC ANTIBODY SCREEN November 27, 2016 RUBELLA ANTIBODY November 27, 2016 COMPLETE CBC W/AUTO DIFF WBC November 27, 2016 IMMUNIZATIONS No Known Immunizations MEDICAL (GENERAL) HISTORY Type Description Date Medical History Heart murmur Medical History Asthma Medical History Depression, unspecified depression type Surgical History section x 2 2012 & 2014 Surgical History orthopedic surgery-ligament repair, left ankle Hospitalization History Dehydration during multiple stays Hospitalization History Childbirth
[2017-07-02] MEDS ORDERED: LACTATED RINGERS 1,000 ML IV PRN (06:12)
[2017-07-02] MEDS ORDERED: FAMOTIDINE 20MG/2ML IV (PEPCID) IV ONE (06:15)
[2017-07-02] MEDS ORDERED: CITRIC ACID/SOB CIT (BICITRA) 30 ML UDC PO ONE (06:15)
[2017-07-02] MEDS ORDERED: METOCLOPRAMIDE INJ 10 MG/2 ML (REGLAN) IV ONE (06:15)
[2017-07-02] MEDS ORDERED: CLINDAMYCIN 900 MG/6ML (CLEOCIN) VIAL ONE (06:18)
[2017-07-02] MEDS ORDERED: NS (IVPB) 50 ML ONE (06:19)
[2017-07-02 06:29] LABS: BASOPHILS % (AUTO) 0 % (0-10); EOSINOPHILS # (AUTO) 0.2 10^3/uL (0.0-0.3); EOSINOPHILS % (AUTO) 2 % (0-10); LYMPHOCYTES # (AUTO) 2.1 X 10^3 (1.0-4.0); LYMPHOCYTES % (AUTO) 24 % (12-44); MEAN CORPUSCULAR HEMOGLOBIN 31 PG (25-34); MEAN CORPUSCULAR HGB CONC 35 G/DL (32-36); MEAN CORPUSCULAR VOLUME 89 FL (80-99); MEAN PLATELET VOLUME 12.3 FL (7.4-10.4); MONOCYTES # (AUTO) 0.7 X 10^3 (0.0-1.0); MONOCYTES % (AUTO) 8 % (0-12); NEUTROPHILS # (AUTO) 5.9 X 10^3 (1.8-7.8); NEUTROPHILS % (AUTO) 66 % (42-75); PLATELET COUNT 210 10^3/uL (130-400)
[2017-07-02] MEDS ORDERED: fentaNYL INJECTION 100 MCG/2 ML AMP ONE (06:30)
[2017-07-02] MEDS ORDERED: CLINDAMYCIN INJECTION 900 MG in NS (IVPB) 50 ML IV ONE (06:30)
[2017-07-02] MEDS ORDERED: OXYTOCIN/NORMAL SALINE 1,000 ML IV ONE (06:31)
[2017-07-02] MEDS ORDERED: ONDANSETRON 4 MG/2 ML (SDV) Z0FRAN ONE (06:51)
[2017-07-02 07:00] VITALS: BP 132/78
[2017-07-02] MEDS ORDERED: KETAMINE HCL 100 MG/ML 5 ML VIAL ONE (07:08)
--- NOTE | 2017-07-02 07:19 | Progress Note-Pre Operative ---
Pre-Operative Progress Note H&P Reviewed The H&P was reviewed, patient examined and no changes noted. Date Seen by Provider: Jul 02, 2017 Time Seen by Provider: 07:18 Date H&P Reviewed: Jul 02, 2017 Time H&P Reviewed: 07:18 Pre-Operative Diagnosis: term with previous FREDDY BOLES MD Jul 02, 2017 7:18 am
--- NOTE | 2017-07-02 07:19 | Progress Note-Post Operative ---
Post-Operative Progess Note Surgeon (s)/Edge Bonder (s) Surgeon FREDDY BOLES MD Edge Bonder: Dr. Gates Pre-Operative Diagnosis term with previous Post-Operative Diagnosis same Procedure & Operative Findings Date of Procedure 07/02/17 Procedure Performed/Findings repeat low transverse delivery Anesthesia Type spinal Estimated Blood Loss Estimated blood loss (mL): 600 cc Specimens/Packing Specimens Removed placenta and umbilical cord Packing: none FREDDY BOLES MD Jul 02, 2017 07:19
[2017-07-02] MEDS ORDERED: D5 LR IV SOLUTION 1,000 ML IV ONE (07:27)
[2017-07-02] MEDS ORDERED: MEASLES,MUMPS,RUBELLA 1 EA INJ SC ONE (07:30)
[2017-07-02] MEDS ORDERED: fentaNYL INJECTION 100 MCG/2 ML AMP IVP PRN (07:30)
[2017-07-02] MEDS ORDERED: TETANUS,DIPTH,PERTUSS P/F (BOOSTRIX) 0.5 ML VIAL IM ONE (07:30)
[2017-07-02] MEDS ORDERED: PHENYLEPHRINE 100 MCG/ML 10 ML (ANESTHESIA) SYR ONE (07:38)
[2017-07-02] MEDS: KETOROLAC 30 MG/ML VIAL IVP SCH ×2 (08:09→20:24)
[2017-07-02] MEDS: OXYTOCIN/NORMAL SALINE 500 ML IV SCH (08:14)
[2017-07-02 09:45] VITALS: BP 125/69
[2017-07-02] MEDS: oxyCODONE/APAP 10/325MG (PERCOCET 10) TABLET PO PRN ×2 (11:02→18:41)
[2017-07-02 15:10] VITALS: BP 106/57
--- NOTE | 2017-07-02 16:10 | OPERATIVE REPORT ---
DATE OF SERVICE: 07/02/2017 PREOPERATIVE DIAGNOSIS: Term at 39 weeks gestation with previous . POSTOPERATIVE DIAGNOSIS: Term at 39 weeks gestation with previous . OPERATIVE PROCEDURE: Repeat low transverse delivery. COUNSELOR/ART THERAPIST FOR DELIVERY: Jackson Gates M.D. SUPERINTENDENT GAS DISTRIBUTION FOR DELIVERY: Jackson Gates M.D. OPERATIVE DESCRIPTION: With the patient in the supine position under satisfactory spinal anesthesia, she was prepped and draped in the usual fashion for abdominal surgery. Leigh catheter was placed in the urinary bladder. A repeat Pfannenstiel incision was made through the skin with a scalpel at the site of the patient's previous Pfannenstiel incision scars. The abdomen was entered in the usual manner. Bladder retractor was placed in the position and clean scalpel was used to make a 4 cm hysterotomy incision transversely across the lower uterine segment. This essentially was an incision through the membranes as once the bladder was retracted, there was a uterine scar separation completely across the lower uterine segment with membranes bulging through that opening. Copious clear fluid was released on rupture of the membranes. Marroquin forceps were applied to facilitate delivery of a vigorous viable female . The infant had Apgars of 8 and 9 at 1 and 5 minutes respectively. Weight of 8 pounds 2 ounces, time of 07:48 and a cord blood arterial pH of 7.29. The infant was bulb suctioned on delivery of the head and again on completion of delivery. The umbilical cord was doubly clamped and cut and the taken to the warmer by Dr. Gates, the insulation board calender operator in attendance for delivery. Cord bloods were obtained as noted. The placenta delivered spontaneously Lyle. It was normal with a 3-vessel cord. The uterus was exteriorized. The interior wiped clean with a wet laparotomy sponge. Uterine incision then closed with a running lock suture of 2-0 Vicryl. Hemostasis was complete. The uterus was returned to the abdominal cavity. All blood clot and debris removed from the abdominal cavity. With sponge and needle counts correct and hemostasis assured, the anterior parietal peritoneum was closed with a running suture of 2-0 Vicryl. The rectus muscles were closed with that suture as well. The rectus fascia was closed with 2-0 Vicryl, subcutaneous tissue was closed with 2-0 Vicryl and the skin was stapled. Sponge and needle counts were correct on completion of the delivery and closure. ESTIMATED BLOOD LOSS: Around 700 mL. The patient tolerated the delivery well and was transferred to the recovery room in stable condition. The infant had been taken stable to the full term nursery under the care of Dr. Gates. Job ID: [id number] DocumentID: [id number] Dictated Date: 07/02/2017 08:12:05 Forging Engineer Date: 07/02/2017 16:10:24 Dictated By: FREDDY BOLES MD
[2017-07-02 20:24] VITALS: BP 108/54
[2017-07-02] MEDS: DOCUSATE SODIUM 100 MG (COLACE) CAP PO SCH ×2 (20:27→22:32)
[2017-07-03 00:28] VITALS: BP 116/71
[2017-07-03] MEDS: KETOROLAC 30 MG/ML VIAL IVP SCH ×2 (02:33→13:30)
[2017-07-03 04:35] VITALS: BP 114/67
[2017-07-03 06:00] LABS: BASOPHILS % (AUTO) 0 % (0-10); EOSINOPHILS # (AUTO) 0.2 10^3/uL (0.0-0.3); EOSINOPHILS % (AUTO) 2 % (0-10); LYMPHOCYTES # (AUTO) 1.2 X 10^3 (1.0-4.0); LYMPHOCYTES % (AUTO) 14 % (12-44); MEAN CORPUSCULAR HEMOGLOBIN 31 PG (25-34); MEAN CORPUSCULAR HGB CONC 34 G/DL (32-36); MEAN CORPUSCULAR VOLUME 92 FL (80-99); MEAN PLATELET VOLUME 11.6 FL (7.4-10.4); MONOCYTES # (AUTO) 0.8 X 10^3 (0.0-1.0); MONOCYTES % (AUTO) 9 % (0-12); NEUTROPHILS # (AUTO) 6.9 X 10^3 (1.8-7.8); NEUTROPHILS % (AUTO) 76 % (42-75); PLATELET COUNT 158 10^3/uL (130-400); RED BLOOD COUNT 3.06 10^6/uL (4.35-5.85); WHITE BLOOD COUNT 9.1 10^3/uL (4.3-11.0)
--- NOTE | 2017-07-03 07:14 | Progress Note-Standard ---
Standard Progress Note Progress Notes/Assess & Plan Date Seen by Provider: Jul 03, 2017 Time Seen by Provider: 07:14 Progress/Assessment & Plan this patient is without complaint. She is ambulating, voiding, tolerating by mouth well, has good pain control. vital signs are stable. Patient is afebrile. Vital Signs Date Time Temp Pulse Resp B/P (MAP) Pulse Ox O2 Delivery O2 Flow Rate FiO2 07/03/17 04:35 97.9 101 18 114/67 97 Room Air 07/03/17 00:28 96.8 78 18 116/71 97 Room Air 07/02/17 20:24 97.0 72 18 108/54 99 Room Air 07/02/17 15:10 97.7 68 18 106/57 99 Room Air 07/02/17 09:45 98.4 63 18 125/69 100 Room Air the abdomen is benign. The incision is clean dry and intact. Extremities show no clubbing or cyanosis. There is no Homans sign. Assessment and plan operative day number 1 status post repeat doing well. Plan is routine convalescence care today and consider discharge home tomorrow FREDDY BOLES MD Jul 03, 2017 7:14 am
[2017-07-03] MEDS ORDERED: IBUP-1780 PO ×2 (07:16)
[2017-07-03] MEDS ORDERED: OXYC-465 PO ×2 (07:16)
[2017-07-03] MEDS ORDERED: DOCU100C37 PO ×2 (07:16)
--- NOTE | 2017-07-03 07:18 | Discharge Instructions ---
Discharge Instructions Discharge Medications New, Converted or Re-Newed RX: RX on Chart Patient Instructions Patient Instructions: as directed Return to The Hospital For: as directed Activity & Diet Discharge Diet: No Restrictions Activity as Tolerated: No Orders-Post D/C & Referrals Follow Up Appt: RTC 1 week for incision check with me Call to make follow up appt. for patient with Dr. Gates in 6 weeks. Wound Care: Remove kaylynn, apply benzoin and steri strips. Activity Per routine post instructions. Please call in RX to patient pharmacy. Diet as tolerated Patient may shower or tub bathe as desired. Continue home meds FREDDY BOLES MD Jul 03, 2017 7:18 am
[2017-07-03 08:00] VITALS: BP 116/75
[2017-07-03] MEDS: DOCUSATE SODIUM 100 MG (COLACE) CAP PO SCH ×2 (08:32→21:08)
[2017-07-03] MEDS: oxyCODONE/APAP 10/325MG (PERCOCET 10) TABLET PO PRN ×3 (08:33→22:30)
[2017-07-03] MEDS: IBUPROFEN 800 MG (MOTRIN) TAB PO SCH ×3 (08:33→21:08)
[2017-07-03] MEDS: OXYTOCIN/NORMAL SALINE 500 ML IV SCH (09:35)
--- NOTE | 2017-07-03 10:07 | Anesthesia-Regional Post-Op ---
Regional Patient Condition Mental Status: Alert, Oriented x3 Circulation: Same as Pre-Op Headache: Absent Sensation: Full Recovery Motor Block: Absent Post Op Complications Complications None Follow Up Care/Instructions Patient Instructions None needed. Anesthesia/Patient Condition Patient is doing well, no complaints, stable vital signs, no apparent adverse anesthesia problems. No complications reported per nursing. ALISSA VARGHESE CRNA Jul 03, 2017 10:07
[2017-07-03 12:00] VITALS: BP 117/76
[2017-07-03 18:45] VITALS: BP 118/75
[2017-07-03 21:09] VITALS: BP 130/84
[2017-07-04 02:09] VITALS: BP 116/70
[2017-07-04] MEDS: IBUPROFEN 800 MG (MOTRIN) TAB PO SCH ×2 (02:09→08:54)
--- NOTE | 2017-07-04 07:53 | Progress Note-Standard ---
Standard Progress Note Progress Notes/Assess & Plan Date Seen by Provider: Jul 04, 2017 Time Seen by Provider: 07:52 Progress/Assessment & Plan this patient is without complaint. She is ambulating, voiding, tolerating by mouth well, has good pain control. vital signs are stable. Patient is afebrile. Vital Signs Date Time Temp Pulse Resp B/P (MAP) Pulse Ox O2 Delivery O2 Flow Rate FiO2 07/03/17 04:35 97.9 101 18 114/67 97 Room Air 07/03/17 00:28 96.8 78 18 116/71 97 Room Air 07/02/17 20:24 97.0 72 18 108/54 99 Room Air 07/02/17 15:10 97.7 68 18 106/57 99 Room Air 07/02/17 09:45 98.4 63 18 125/69 100 Room Air the abdomen is benign. The incision is clean dry and intact. Extremities show no clubbing or cyanosis. There is no Homans sign. Assessment and plan operative day number 1 status post repeat doing well. Plan is routine convalescence care today and consider discharge home tomorrow July 04, 2017 Patient is without complaint. She is ambulating, voiding, tolerating fairly well, patient is requesting discharge home. Vital Signs Date Time Temp Pulse Resp B/P (MAP) Pulse Ox O2 Delivery O2 Flow Rate FiO2 07/04/17 02:09 97.1 89 18 116/70 99 Room Air 07/03/17 21:09 97.7 88 18 130/84 100 Room Air 07/03/17 18:45 97.6 79 18 118/75 100 Room Air 07/03/17 12:00 96.1 69 18 117/76 100 Room Air 07/03/17 08:00 97.8 76 116/75 100 Room Air vital signs are stable. Patient is afebrile. Fundus is firm below the umbilicus and nontender.Bowel sounds present in all 4 quadrants of the abdomen. Surgical incision is clean dry and intact. Extremities show no clubbing cyanosis. There is no Homans sign. Assessment and plan postoperative day number 2 status post repeat doing well. Plan is for discharge home with follow-up in clinic. Final Diagnosis 39 week repeat delivery FREDDY BOLES MD Jul 04, 2017 7:53 am
[2017-07-04 08:48] VITALS: BP 125/77
[2017-07-04] MEDS: DOCUSATE SODIUM 100 MG (COLACE) CAP PO SCH (08:55)
== END 2017-07-04 10:15 | disposition home or self-care (01) | DRG 766 ==
LOC: LDRP 06:03
PROVIDERS: ADMIT Obstetrics & Gynecology; ATTEND Obstetrics & Gynecology
PROC: 10D00Z1 Extraction of Products of Conception, Low, Open Approach (ICD-10-PCS; principal; 2017-07-02 07:15)
DX: O34.211 Maternal care for low transverse scar from previous cesarean delivery (principal); Z3A.39 39 weeks gestation of pregnancy; Z37.0 Single live birth
CPT/HCPCS: 36415; 85025; 86850; 86900; 86901; 94664

== ENCOUNTER 2017-07-05 23:00 | Emergency (ER) | payer MEDICAID ==
[~2017-07-05] VITALS: Ht 152.4 cm; Wt 89.4 kg
[~2017-07-05 23:00] MED LIST changes: -CITRIC ACID/SOB CIT (BICITRA) 30 ML UDC ONE; +DOCU100C37 PO; -FAMOTIDINE 20MG/2ML IV (PEPCID) ONE; +IBUP-1780 PO; -LACTATED RINGERS 1,000 ML IV ONE; -METOCLOPRAMIDE INJ 10 MG/2 ML (REGLAN) ONE; +OXYC-465 PO
[2017-07-06] MEDS ORDERED: diphenhydrAMINE 25 MG TAB (BENADRYL) PO ONE
[2017-07-06] MEDS ORDERED: predniSONE 20 MG TAB PO ONE
[2017-07-06] MEDS ORDERED: PRD10T PO (00:02)
--- NOTE | 2017-07-06 00:02 | ED Integumentary General ---
General Chief Complaint: Skin/Wound Problems Stated Complaint: HIVES ON STOMACH Nursing Triage Note: PT REPORTS RASH TO R LOWER ABD. SHE IS 4 DAYS S/P C SECTION. Source: patient History of Present Illness Time seen by provider: 23:50 Initial Comments PT HAD REPEAT BY DR. BOLES ON 07/02/17, AND WAS DISMISSED YESTERDAY 07/04/17 PT STATES SHE HAD A FOAM DRESSING IN PLACE, THEN IT WAS REMOVED, TENZIN WERE REMOVED AND STERI STRIPS WERE PLACED YESTERDAY PRIOR TO BEING DISMISSED PT STATES YESTERDAY AFTERNOON SHE NOTICED A ITCHY RASH TO LOWER ABDOMEN AROUND INCISION NO BLEEDING OR DRAINAGE FROM THE WOUND NO FEVER NO ABDOMINAL PAIN NO HISTORY OF SIMILAR PT HAS NOT TAKEN ANYTHING FOR SYMPTOMS PT IS NOT PT HAS A FOLLOW UP APPOINTMENT WITH DR. BOLES THIS WEEK Allergies and Home Medications Allergies Coded Allergies: cefaclor (Unverified Allergy, Mild, 03/11/09) Uncoded Allergies: BEE'S (Allergy, Unknown, 07/09/14) Home Medications Acetaminophen 325 Mg Tablet, 325 MG PO q6hr PRN for PAIN-MILD, (Reported) Albuterol Sulfate 1 Puff Puff, 2 PUFF IH Q4H PRN for AIR HUNGER, (Reported) 1 PUFF = 90 MCG Diphenhydramine HCl 25 Mg Capsule, 25 MG PO HS PRN for SLEEP, (Reported) Docusate Sodium 100 Mg Capsule, 100 MG PO BID, #60 Prescribed by: FREDDY PRIEST on 07/03/17 0716 Ibuprofen 800 Mg Tablet, 800 MG PO Q6H, #60 Prescribed by: FREDDY PRIEST on 07/03/17 0716 Oxycodone HCl/Acetaminophen 1 Each Tablet, 1-2 TAB PO Q4HR PRN for PAIN- MODERATE TO SEVERE, #60 Prescribed by: FREDDY PRIEST on 07/03/17 0716 Prednisone 10 Mg Tab, 40 MG PO DAILY, #12 Prescribed by: PRINCE CALDERON on 07/06/17 0002 Constitutional: no symptoms reported Gastrointestinal: no symptoms reported Genitourinary: no symptoms reported Musculoskeletal: no symptoms reported Skin: see HPI, pruritus, rash Psychiatric/Neurological: No Symptoms Reported Past Tdwymru-Uelfkf-Dpqarx Hx Patient Social History Alcohol Use: Occasionally Uses Alcohol Beverage of Choice: Beer Recreational Drug Use: No Smoking Status: Former Smoker Type Used: Cigarettes Former Smoker, Quit: Oct 02, 2016 2nd Hand Smoke Exposure: No Recent Foreign Travel: No Contact w/Someone Who Travel: No Recent Infectious Disease Expo: No Recent Hopitalizations: No Physical Abuse: No Sexual Abuse: No Immunizations Up To Date Tetanus Booster (TDap): Unknown Date of Influenza Vaccine: Jun 23, 2017 Seasonal Allergies Seasonal Allergies: No Surgeries History of Surgeries: Yes (LT ANKLE, X 3) Surgeries: Section, Orthopedic Respiratory History of Respiratory Disorde: Yes Respiratory Disorders: Asthma Cardiovascular History of Cardiac Disorders: Yes Cardiac Disorders: Heart Murmur Neurological History of Neurological Disord: No Reproductive System Hx Reproductive Disorders: No Genitourinary History of Genitourinary Disor: No Gastrointestinal History of Gastrointestinal Di: Yes Gastrointestinal Disorders: Gastroesophageal Reflux Musculoskeletal History of Musculoskeletal Dis: Yes Musculoskeletal Disorders: Chronic Back Pain Endocrine History of Endocrine Disorders: No HEENT History of HEENT Disorders: No Cancer History of Cancer: No Psychosocial History of Psychiatric Problem: Yes Behavioral Health Disorders: Depression Suicide Risk Score: 0 Integumentary History of Skin or Integumenta: No Blood Transfusions History of Blood Disorders: No Adverse Reaction to a Blood Tr: No Family Medical History Significant Family History: No Pertinent Family Hx Family Medial History: Asthma 19 FATHER Cardiovascular disease G8 BROTHER G8 SISTER Hypertension 19 FATHER Physical Exam Vital Signs Vital Sign - Last 12Hours 07/05/ 23:30 Temp 98.9 Pulse 73 Resp 18 B/P (MAP) 138/79 Pulse Ox 98 O2 Delivery Room Air Capillary Refill : Less Than 3 Seconds General Appearance: WD/WN, no apparent distress Cardiovascular: regular rate, rhythm, no murmur Respiratory: normal breath sounds Gastrointestinal: non tender, soft Neurologic/Psychiatric: pharmacy intake technician II-XII nml as tested, no motor/sensory deficits, alert, normal mood/affect, oriented x 3 Skin: normal color, warm/dry, other (INCISION TO LOWER ABDOMEN IS INTACT WITH STERI-STRIPS IN PLACE. NO BLEEDING OR DRAINAGE FROM INCISION. PT HAS CONFLUENT MACULOPAPULAR RASH ALL AROUND INCISION--SEVERAL CM'S IN DIAMETER ALL AROUND THE INCISION--APPEARS TO BE IN DISTRIBUTION OF WOUND DRESSING AND / OR SURGICAL SCRUB-WOUND CLEANSER. ) Progress/Results/Core Measures Results/Orders My Orders Orders - PRINCE CALDERON DO Diphenhydramine Tablet (Benadryl Tablet) (07/06/17 00:00) Prednisone Tablet (Deltasone Tablet) (07/06/17 00:00) Medications Given in ED Current Medications Medications Dose Ordered Sig/Brook Route Start Time Stop Time Status Last Admin Dose Admin Diphenhydramine HCl 50 mg ONCE ONCE PO 07/06/17 00:00 07/06/17 00:01 DC 07/06/17 00:05 50 MG Prednisone 40 mg ONCE ONCE PO 07/06/17 00:00 07/06/17 00:01 DC 07/06/17 00:05 40 MG Vital Signs/I&O Vital Sign - Last 12Hours 07/05/17 23:30 Temp 98.9 Pulse 73 Resp 18 B/P (MAP) 138/79 Pulse Ox 98 O2 Delivery Room Air Blood Pressure Mean: 98 Departure Impression Impression: Primary Impression: Contact dermatitis Disposition: HOME, SELF-CARE Condition: Stable Departure-Patient Inst. Referrals: FREDDY BOLES MD, DANIEL J MD (PCP/Family) Primary Care Physician Patient Instructions: Contact Dermatitis (DC) Add. Discharge Instructions: CLARITIN 10 MG IN AM, BENADRYL 50 MG IN PM FOR ITCHING LOTS OF WATER FOLLOW UP WITH DR. BOLES THIS WEEK SCHEDULED All discharge instructions reviewed with patient and/or family. Voiced understanding. Scripts Prednisone (Prednisone) 10 Mg Tab 40 MG PO DAILY, #12 TAB Prov: PRINCE CALDERON DO 07/06/17 PRINCE CALDERON DO Jul 06, 2017 00:02
[2017-07-06 00:10] VITALS: BP 138/79
== END 2017-07-06 00:10 | disposition home or self-care (01) ==
LOC: EDUNIT# 23:00 → ER 23:02
DX: O99.89 Other specified diseases and conditions complicating pregnancy, childbirth and the puerperium (principal); L25.9 Unspecified contact dermatitis, unspecified cause; O99.53 Diseases of the respiratory system complicating the puerperium; J45.909 Unspecified asthma, uncomplicated; O99.63 Diseases of the digestive system complicating the puerperium; K21.9 Gastro-esophageal reflux disease without esophagitis; O99.345 Other mental disorders complicating the puerperium; F32.9 Major depressive disorder, single episode, unspecified; Z82.49 Family history of ischemic heart disease and other diseases of the circulatory system; Z87.891 Personal history of nicotine dependence; Z87.59 Personal history of other complications of pregnancy, childbirth and the puerperium
CPT/HCPCS: 99283

== ENCOUNTER 2017-07-13 19:58 | Emergency (ER) | payer MEDICAID ==
[~2017-07-13] VITALS: Ht 152.4 cm; Wt 89.4 kg
[~2017-07-13 19:58] MED LIST changes: +PRD10T PO
[2017-07-13] MEDS ORDERED: OXYC-471 PO (20:13)
--- NOTE | 2017-07-13 20:14 | ED General ---
General Chief Complaint: General Problems/Pain Stated Complaint: PROBLEMS AFTER ON 07/02 Nursing Triage Note: c/o headache, feet swelling and concerned her incision is coming apart after a 1 week ago. patient reports running out of pain medication 1 day ago Nursing Sepsis Screen: No Definite Risk Source of Information: Patient Exam Limitations: No Limitations History of Present Illness Time Seen by Provider: 20:09 Initial Comments To ER with c/o feet swelling, headaches, fatigue, incisional pain at the site of her which was done last week. Ran out of oxycodone 2 days ago. Timing/Duration: 1-2 Days Severity: Moderate Allergies and Home Medications Allergies Coded Allergies: cefaclor (Unverified Allergy, Mild, 03/11/09) Uncoded Allergies: BEE'S (Allergy, Unknown, 07/09/14) Home Medications Acetaminophen 325 Mg Tablet, 325 MG PO q6hr PRN for PAIN-MILD, (Reported) Albuterol Sulfate 1 Puff Puff, 2 PUFF IH Q4H PRN for AIR HUNGER, (Reported) 1 PUFF = 90 MCG Diphenhydramine HCl 25 Mg Capsule, 25 MG PO HS PRN for SLEEP, (Reported) Docusate Sodium 100 Mg Capsule, 100 MG PO BID, #60 Prescribed by: FREDDY PRIEST on 07/03/17 0716 Ibuprofen 800 Mg Tablet, 800 MG PO Q6H, #60 Prescribed by: FREDDY PRIEST on 07/03/17 0716 Oxycodone HCl/Acetaminophen 1 Each Tablet, 1-2 TAB PO Q4HR PRN for PAIN- MODERATE TO SEVERE, #60 Prescribed by: FREDDY PRIEST on 07/03/17 0716 Prednisone 10 Mg Tab, 40 MG PO DAILY, #12 Prescribed by: PRINCE CALDERON on 07/06/17 0002 Constitutional: see HPI EENTM: see HPI Respiratory: no symptoms reported Cardiovascular: no symptoms reported Genitourinary: no symptoms reported Musculoskeletal: no symptoms reported Skin: no symptoms reported Psychiatric/Neurological: No Symptoms Reported Past Ysaaulp-Fmfxfh-Hfkzed Hx Patient Social History Alcohol Use: Past History Number of Drinks Today: AA Alcohol Beverage of Choice: Beer Recreational Drug Use: No Smoking Status: Former Smoker Type Used: Cigarettes Former Smoker, Quit: Oct 02, 2016 2nd Hand Smoke Exposure: No Recent Foreign Travel: No Contact w/Someone Who Travel: No Recent Infectious Disease Expo: No Recent Hopitalizations: No Immunizations Up To Date Tetanus Booster (TDap): Unknown Date of Influenza Vaccine: Jun 23, 2017 Seasonal Allergies Seasonal Allergies: No Surgeries History of Surgeries: Yes (LT ANKLE, X 3) Surgeries: Section, Orthopedic Respiratory History of Respiratory Disorde: Yes Respiratory Disorders: Asthma Cardiovascular History of Cardiac Disorders: Yes Cardiac Disorders: Heart Murmur Neurological History of Neurological Disord: No Reproductive System Hx Reproductive Disorders: No Genitourinary History of Genitourinary Disor: No Gastrointestinal History of Gastrointestinal Di: Yes Gastrointestinal Disorders: Gastroesophageal Reflux Musculoskeletal History of Musculoskeletal Dis: Yes Musculoskeletal Disorders: Chronic Back Pain Endocrine History of Endocrine Disorders: No HEENT History of HEENT Disorders: No Cancer History of Cancer: No Psychosocial History of Psychiatric Problem: Yes Behavioral Health Disorders: Depression Integumentary History of Skin or Integumenta: No Blood Transfusions History of Blood Disorders: No Adverse Reaction to a Blood Tr: No Family Medical History Significant Family History: No Pertinent Family Hx Family Medial History: Asthma 19 FATHER Cardiovascular disease G8 BROTHER G8 SISTER Hypertension 19 FATHER Physical Exam Vital Signs Vital Sign - Last 12Hours 07/13/17 20:05 Temp 98.7 Pulse 74 Resp 18 B/P (MAP) 145/98 Pulse Ox 99 Capillary Refill : Less Than 3 Seconds General Appearance: No Apparent Distress, WD/WN Eyes: Bilateral Eye Normal Inspection, Bilateral Eye PERRL, Bilateral Eye EOMI HEENT: PERRL/EOMI, TMs Normal Respiratory: No Accessory Muscle Use, No Respiratory Distress Cardiovascular: Regular Rate, Rhythm, Normal Peripheral Pulses Gastrointestinal: Normal Bowel Sounds, Non Tender, Soft Neurologic/Psychiatric: Alert, Oriented x3 Skin: Normal Color, Warm/Dry Comments abdominal incision clean dry and intact. Progress/Results/Core Measures Results/Orders My Orders Orders - EMI GONZALEZ APRN Cbc With Automated Diff (07/13/17 20:09) Basic Metabolic Panel (07/13/17 20:09) Vital Signs/I&O Vital Sign - Last 12Hours 07/13/17 20:05 Temp 98.7 Pulse 74 Resp 18 B/P (MAP) 145/98 Pulse Ox 99 Blood Pressure Mean: 114 Departure Impression Impression: Primary Impression: Postoperative pain Disposition: 01 HOME, SELF-CARE Condition: Stable Departure-Patient Inst. Decision time for Depature: 20:12 Referrals: ZAYRA GOMEZ MD (PCP/Family) Primary Care Physician Patient Instructions: Acute Pain, Adult Add. Discharge Instructions: elevate your legs follow up with dr oneill this week All discharge instructions reviewed with patient and/or family. Voiced understanding. Scripts Oxycodone HCl/Acetaminophen (Oxycodone-Acetaminophen 5-325) 1 Each Tablet 1 EACH PO Q4H Y for PAIN-SEVERE, #10 TAB Prov: EMI GONZALEZ APRN 07/13/17 EMI GONZALEZ APRN Jul 13, 2017 20:14
[2017-07-13 20:20] LABS: BASOPHILS % (AUTO) 1 % (0-10); EOSINOPHILS # (AUTO) 0.6 10^3/uL (0.0-0.3); EOSINOPHILS % (AUTO) 8 % (0-10); LYMPHOCYTES # (AUTO) 2.1 X 10^3 (1.0-4.0); LYMPHOCYTES % (AUTO) 30 % (12-44); MEAN CORPUSCULAR HEMOGLOBIN 30 PG (25-34); MEAN CORPUSCULAR HGB CONC 34 G/DL (32-36); MEAN CORPUSCULAR VOLUME 89 FL (80-99); MEAN PLATELET VOLUME 9.6 FL (7.4-10.4); MONOCYTES # (AUTO) 0.6 X 10^3 (0.0-1.0); MONOCYTES % (AUTO) 9 % (0-12); NEUTROPHILS # (AUTO) 3.8 X 10^3 (1.8-7.8); NEUTROPHILS % (AUTO) 53 % (42-75); PLATELET COUNT 359 10^3/uL (130-400); RED BLOOD COUNT 4.13 10^6/uL (4.35-5.85); WHITE BLOOD COUNT 7.1 10^3/uL (4.3-11.0)
[2017-07-13 20:47] LABS: ANION GAP 10 MMOL/L (5-14); BLOOD UREA NITROGEN 17 MG/DL (7-18); BUN/CREATININE RATIO 22; CALCIUM 9.4 MG/DL (8.5-10.1); CARBON DIOXIDE 26 MMOL/L (21-32); CHLORIDE 103 MMOL/L (98-107); CREATININE SERUM 0.78 MG/DL (0.60-1.30); GFR ESTIMATED > 60; GLUCOSE 88 MG/DL (70-105); POTASSIUM 4.2 MMOL/L (3.6-5.0); SODIUM 139 MMOL/L (135-145)
[2017-07-13 20:56] VITALS: BP 145/98
== END 2017-07-13 20:55 | disposition home or self-care (01) ==
LOC: EDUNIT# 19:58 → ER 19:59
DX: O99.89 Other specified diseases and conditions complicating pregnancy, childbirth and the puerperium (principal); G89.18 Other acute postprocedural pain; O99.63 Diseases of the digestive system complicating the puerperium; K21.9 Gastro-esophageal reflux disease without esophagitis; O99.345 Other mental disorders complicating the puerperium; F32.9 Major depressive disorder, single episode, unspecified; Z82.49 Family history of ischemic heart disease and other diseases of the circulatory system; Z87.891 Personal history of nicotine dependence; Z98.890 Other specified postprocedural states
CPT/HCPCS: 36415; 80048; 85025; 99281

== ENCOUNTER 2017-07-15 19:52 | Emergency (ER) | payer MEDICAID ==
[~2017-07-15] VITALS: Ht 152.4 cm; Wt 89.4 kg
[~2017-07-15 19:52] MED LIST changes: +OXYC-471 PO
--- NOTE | 2017-07-15 20:04 | ED General ---
General Stated Complaint: ABDOMINAL PAIN,CONSTIPATION POST CSECTION Source of Information: Patient Exam Limitations: No Limitations History of Present Illness Time Seen by Provider: 20:02 Initial Comments To ER with reports of constipation and abdominal cramping. She was seen here 2 days ago for lower abdominal pain with normal laboratory evaluation. She is 1 week . She had some constipation at that time and was instructed to increase her Colace use by double and use MiraLAX. She has doubled the Colace and instead of using MiraLAX she did drink a half a bottle of magnesium citrate last night without relief. She reports cramping and urge to have a bowel movement but being unable to do so. Severity: Moderate Associated Systoms: No Fever/Chills, No Nausea/Vomiting Allergies and Home Medications Allergies Coded Allergies: cefaclor (Unverified Allergy, Mild, 03/11/09) Uncoded Allergies: BEE'S (Allergy, Unknown, 07/09/14) Home Medications Acetaminophen 325 Mg Tablet, 325 MG PO q6hr PRN for PAIN-MILD, (Reported) Albuterol Sulfate 1 Puff Puff, 2 PUFF IH Q4H PRN for AIR HUNGER, (Reported) 1 PUFF = 90 MCG Diphenhydramine HCl 25 Mg Capsule, 25 MG PO HS PRN for SLEEP, (Reported) Docusate Sodium 100 Mg Capsule, 100 MG PO BID, #60 Prescribed by: FREDDY PRIEST on 07/03/17 0716 Ibuprofen 800 Mg Tablet, 800 MG PO Q6H, #60 Prescribed by: FREDDY PRIEST on 07/03/17 0716 Oxycodone HCl/Acetaminophen 1 Each Tablet, 1 EACH PO Q4H PRN for PAIN-SEVERE, # 10 Prescribed by: EMI GONZALEZ on 07/13/172012 Constitutional: see HPI EENTM: see HPI Respiratory: no symptoms reported Cardiovascular: no symptoms reported Gastrointestinal: abdominal pain, constipation Genitourinary: no symptoms reported Musculoskeletal: no symptoms reported Skin: no symptoms reported Past Cnutdpr-Toayok-Jzkkbh Hx Patient Social History Alcohol Beverage of Choice: Beer Type Used: Cigarettes Former Smoker, Quit: Oct 02, 2016 2nd Hand Smoke Exposure: No Recent Foreign Travel: No Contact w/Someone Who Travel: No Recent Hopitalizations: No Immunizations Up To Date Tetanus Booster (TDap): Unknown Date of Influenza Vaccine: Jun 23, 2017 Seasonal Allergies Seasonal Allergies: No Surgeries History of Surgeries: Yes (LT ANKLE, X 3) Surgeries: Section, Orthopedic Respiratory History of Respiratory Disorde: Yes Respiratory Disorders: Asthma Cardiovascular History of Cardiac Disorders: Yes Cardiac Disorders: Heart Murmur Neurological History of Neurological Disord: No Reproductive System Hx Reproductive Disorders: No Genitourinary History of Genitourinary Disor: No Gastrointestinal History of Gastrointestinal Di: Yes Gastrointestinal Disorders: Gastroesophageal Reflux Musculoskeletal History of Musculoskeletal Dis: Yes Musculoskeletal Disorders: Chronic Back Pain Endocrine History of Endocrine Disorders: No HEENT History of HEENT Disorders: No Cancer History of Cancer: No Psychosocial History of Psychiatric Problem: Yes Behavioral Health Disorders: Depression Integumentary History of Skin or Integumenta: No Blood Transfusions History of Blood Disorders: No Adverse Reaction to a Blood Tr: No Family Medical History Significant Family History: No Pertinent Family Hx Family Medial History: Asthma 19 FATHER Cardiovascular disease G8 BROTHER G8 SISTER Hypertension 19 FATHER Physical Exam Vital Signs Vital Sign - Last 12Hours 07/15/17 19:55 Temp 98.1 Pulse 80 Resp 20 B/P (MAP) 139/96 Pulse Ox 100 O2 Delivery Room Air Capillary Refill : General Appearance: No Apparent Distress, WD/WN Eyes: Bilateral Eye Normal Inspection, Bilateral Eye PERRL HEENT: PERRL/EOMI, TMs Normal Respiratory: No Accessory Muscle Use, No Respiratory Distress Cardiovascular: Regular Rate, Rhythm, Normal Peripheral Pulses Gastrointestinal: Non Tender, Soft Extremity: Normal Capillary Refill, Normal Inspection Neurologic/Psychiatric: Alert, Oriented x3, No Motor/Sensory Deficits Skin: Normal Color, Warm/Dry Progress/Results/Core Measures Results/Orders My Orders Orders - EMI GONZALEZ APRN Ct Abdomen/Pelvis Wo (07/15/17 19:55) Na Phos/Na Biphos Enema (Fleet Enema Miguel (07/15/17 20:30) Medications Given in ED Current Medications Medications Dose Ordered Sig/Brook Route Start Time Stop Time Status Last Admin Dose Admin Sodium Biphosphate/ Sodium Phosphate 1 ea ONCE ONCE [place] 07/15/17 20:30 07/15/17 20:31 DC 07/15/17 20:44 1 EA Vital Signs/I&O Vital Sign - Last 12Hours 07/15/17 19:55 Temp 98.1 Pulse 80 Resp 20 B/P (MAP) 139/96 Pulse Ox 100 O2 Delivery Room Air Departure Communication (Admissions) Progress Notes 2036- I did do a digital disimpaction the administration of a fleets enema with female nursing support worker at the bedside. 2052- patient did have a large bowel movement at this time. She feels better and does not any longer have the urge to have bowel movement. She states she would like to go home. Impression Impression: Primary Impression: Constipation Additional Impression: Fecal impaction Disposition: HOME, SELF-CARE Condition: Stable Departure-Patient Inst. Decision time for Depature: 20:53 Referrals: ZAYRA GOMEZ MD (PCP/Family) Primary Care Physician Patient Instructions: Constipation in Adults, Fecal Impaction (DC) Add. Discharge Instructions: 1. Continue the double dose of Colace 2. By MiraLAX as soon as you're able to afford it and drink one capful daily for the next week. Drink lots of water as well. At least 3-4 bottles of water daily. EMI GONZALEZ LIQUOR RECTIFIER Jul 15, 2017 20:04
[2017-07-15] MEDS ORDERED: FLEET ENEMA ADULT 1 EA BTL PR ONE (20:30)
[2017-07-15] MEDS ORDERED: MAGNESIUM CITRATE 300 ML BTL PO ONE (21:00)
--- NOTE | 2017-07-15 21:32 | Diagnostic Imaging Report ---
PROCEDURE: CT abdomen and pelvis without contrast. TECHNIQUE: Multiple contiguous axial images were obtained through the abdomen and pelvis without the use of intravenous contrast. INDICATION: History of on the of this month. Complaining of lower abdominal pain, rectal pain and no bowel movement for a week. EXAMINATION: CT of the abdomen and pelvis without contrast 07/15/2017. FINDINGS: The uterus is diffusely enlarged, perhaps due to the recent status. The urinary bladder is markedly dilated. Correlate clinically for any possible bladder outlet obstruction, otherwise this could be due to timing of imaging. In the expected location of the distal right ureter, there is a 3-4 mm calcification noted. This could represent a phlebolith but a distal ureteral stone is not excluded. Especially given the hydronephrosis on the right which is mild to moderate. Mild prominence of the left renal collecting system also noted but to a lesser degree. Some this could even be due to the recent status. No definite ureteral stones noted on the left with calcifications in the left lower pelvis, likely phleboliths. There are findings of moderate constipation. No inflammation seen about the bowel loops. The nonopacified abdominal viscera limited but no gross acute abnormality appreciated in the liver or spleen. The pancreas and adrenal glands appear unremarkable. Gallbladder grossly unremarkable, as well. There is no free air in the abdomen or the pelvis. The lung bases appear unremarkable. No acute osseous abnormality is appreciated. There is focal fat stranding on the anterior wall of the pelvis consistent with the recent . No drainable fluid collections appreciated. Appendix is not seen but no inflammation is seen in the right lower quadrant. IMPRESSION: 1. Findings of moderate constipation with no structural process seen. 2. Dilated urinary bladder, correlate clinically. Mild to moderate right hydronephrosis and mild left hydronephrosis noted. Findings could be due to the recent status although a questionable stone in the distal right ureter is noted. The ureter is somewhat difficult to follow, as discussed above, correlate with symptoms. 3. Enlarged uterus, likely due to the recent with postoperative changes along the anterior wall of the pelvis. 4. Other incidental findings, as noted above. Dictated by: Dictated on workstation # [id number]
[2017-07-15 21:35] VITALS: BP 139/96
== END 2017-07-15 21:35 | disposition home or self-care (01) ==
LOC: EDUNIT# 19:52 → ER 19:54
DX: K56.41 Fecal impaction (principal); J45.909 Unspecified asthma, uncomplicated; F32.9 Major depressive disorder, single episode, unspecified; K21.9 Gastro-esophageal reflux disease without esophagitis; Z87.891 Personal history of nicotine dependence; Z82.49 Family history of ischemic heart disease and other diseases of the circulatory system; Z87.59 Personal history of other complications of pregnancy, childbirth and the puerperium
CPT/HCPCS: 74176; 99282

== ENCOUNTER 2017-12-01 18:56 | Emergency (ER) | payer SELFPAY ==
[~2017-12-01] VITALS: Ht 152.4 cm; Wt 81.6 kg
--- OUTSIDE RECORDS SUMMARY | 2017-12-01 19:02 | XMS REPORT ---
Author Author ZAYRA GOMEZ Organization [facility] Address [address] [place] [address] Care Team Providers Care Dough Maker Name Role Phone JASON ZAYRA Unavailable PROBLEMS Type Condition ICD9-CM Code [id number] Code Onset Dates Condition Status SNOMED Code Problem Dysthymic disorder F34.1 Active 56625455 Problem Other headache syndrome G44.89 Active 732373963 Problem Irregular periods/menstrual cycles N92.6 Active 18014914 Problem Depression, unspecified depression type F32.9 Active 09125461 Problem Anemia, O90.81 Active 548446310 Problem Seasonal allergic rhinitis, unspecified allergic rhinitis trigger J30.2 Active 562784029 ALLERGIES No Information SOCIAL HISTORY Never Assessed PLAN OF CARE Activity Details Follow Up 4 Weeks Reason: VITAL SIGNS Height 61 in 2017-02-19 Weight 183.6 lbs 2017-02-19 Temperature 97.8 degrees Fahrenheit 2017-02-19 BMI 34.691 kg/m2 2017-02-19 Blood pressure systolic 118 mmHg 2017-02-19 Blood pressure diastolic 70 mmHg 2017-02-19 MEDICATIONS Medication Instructions Dosage Frequency Start Date End Date Duration Status Active ProAir HFA 108 (90 Base) MCG/ACT Inhalation every 4 hrs 2 puffs as needed 4h Active Cetirizine HCl 10 mg Orally Once a day 1 tablet 24h January, Active RESULTS Name Result Date Reference Range UA OB DIP (IN HOUSE) 2017-02-19 Glucose negative Protein trace Ultrasound : OB, Follow-up 2017-02-28 PROCEDURES Procedure Date Ordered Result Body Site URINE-NO MICRO February 19, 2017 IMMUNIZATIONS No Known Immunizations MEDICAL (GENERAL) HISTORY Type Description Date Medical History Heart murmur Medical History Asthma Medical History Depression, unspecified depression type Surgical History section x 3 2012, 2013, 2016 Surgical History orthopedic surgery-ligament repair, left ankle Hospitalization History Dehydration during multiple stays Hospitalization History Childbirth
--- OUTSIDE RECORDS SUMMARY | 2017-12-01 19:02 | XMS REPORT ---
Author Author ZAYRA GOMEZ Organization [facility] Address [address] [place] [address] Care Team Providers Care Charter Coach Driver Name Role Phone ZAYRA GOMEZ Unavailable PROBLEMS Type Condition ICD9-CM Code [id number] Code Onset Dates Condition Status SNOMED Code Problem Dysthymic disorder F34.1 Active 17638192 Problem Other headache syndrome G44.89 Active 736204854 Problem Irregular periods/menstrual cycles N92.6 Active 61496360 Problem Depression, unspecified depression type F32.9 Active 45326693 Problem Anemia, O90.81 Active 716707359 Problem Seasonal allergic rhinitis, unspecified allergic rhinitis trigger J30.2 Active 747231122 ALLERGIES No Information SOCIAL HISTORY Never Assessed PLAN OF CARE VITAL SIGNS MEDICATIONS Medication Instructions Dosage Frequency Start Date End Date Duration Status Diflucan 150 MG Orally on Friday02/28/17 1 tablet Feb, Active RESULTS No Results PROCEDURES No Known procedures IMMUNIZATIONS No Known Immunizations MEDICAL (GENERAL) HISTORY Type Description Date Medical History Heart murmur Medical History Asthma Medical History Depression, unspecified depression type Surgical History section x 3 2012, 2013, 2017 Surgical History orthopedic surgery-ligament repair, left ankle Hospitalization History Dehydration during multiple stays Hospitalization History Childbirth
--- OUTSIDE RECORDS SUMMARY | 2017-12-01 19:03 | XMS REPORT ---
Author Author MASON OLIVO [facility] Address [address] [place] [address] Care Team Providers Care Streetcar Motorman Name Role Phone MASON OLIVO Unavailable PROBLEMS Type Condition ICD9-CM Code [id number] Code Onset Dates Condition Status SNOMED Code Problem Dysthymic disorder F34.1 Active 13050965 Problem Other headache syndrome G44.89 Active 178809773 Problem Irregular periods/menstrual cycles N92.6 Active 48090206 Problem Depression, unspecified depression type F32.9 Active 91107262 Problem Anemia, O90.81 Active 790703685 Problem Seasonal allergic rhinitis, unspecified allergic rhinitis trigger J30.2 Active 690377926 ALLERGIES Substance Reaction Event Type Date Status Cefaclor Unknown Drug Allergy Feb, Active SOCIAL HISTORY Never Assessed PLAN OF CARE Activity Details Follow Up prn Reason: VITAL SIGNS Height 61 in 2017-02-23 Weight 185.2 lbs 2017-02-23 Temperature 97.6 degrees Fahrenheit 2017-02-23 Heart Rate 66 bpm 2017-02-23 Respiratory Rate 20 2017-02-23 BMI 34.99 kg/m2 2017-02-23 Blood pressure systolic 102 mmHg 2017-02-23 Blood pressure diastolic 74 mmHg 2017-02-23 MEDICATIONS Medication Instructions Dosage Frequency Start Date End Date Duration Status Miconazole 7 2 % Vaginal Once a day 1 application at bedtime 24h Feb, Feb, 7 day(s) Active ProAir HFA 108 (90 Base) MCG/ACT Inhalation every 4 hrs 2 puffs as needed 4h Active Active Cetirizine HCl 10 mg Orally Once a day 1 tablet 24h January, Active Clindamycin HCl 300 MG Orally every 8 hrs 1 capsule 8h Feb,Feb 7 days Active RESULTS Name Result Date Reference Range CULTURE, ANAEROBIC AND AEROBIC 2017-02-23 Anaerobic Culture Final report Aerobic Culture Final report Result 1 Result 1 PROCEDURES Procedure Date Ordered Result Body Site LAB NOT BILLED BY [facility] February 23, 2017 IMMUNIZATIONS No Known Immunizations MEDICAL (GENERAL) HISTORY Type Description Date Medical History Heart murmur Medical History Asthma Medical History Depression, unspecified depression type Surgical History section x 3 2012, 2013, 2016 Surgical History orthopedic surgery-ligament repair, left ankle Hospitalization History Dehydration during multiple stays Hospitalization History Childbirth
--- OUTSIDE RECORDS SUMMARY | 2017-12-01 19:03 | XMS REPORT ---
Author Author JAMIA BINGHAM Organization [facility] Address [address] [place] [address] Care Team Providers Care Slab Depiler Operator Name Role Phone LUISClaudia JAMIA Unavailable PROBLEMS Type Condition ICD9-CM Code SBP08-LD Code Onset Dates Condition Status SNOMED Code Problem Dysthymic disorder F34.1 Active 77461743 Problem Other headache syndrome G44.89 Active 039304959 Problem Irregular periods/menstrual cycles N92.6 Active 65982279 Problem Depression, unspecified depression type F32.9 Active 19721161 Problem Anemia, O90.81 Active 410599429 Problem Seasonal allergic rhinitis, unspecified allergic rhinitis trigger J30.2 Active 885612752 ALLERGIES Substance Reaction Event Type Date Status Cefaclor Unknown Drug Allergy January, Active SOCIAL HISTORY Never Assessed PLAN OF CARE Activity Details Follow Up prn Reason: VITAL SIGNS Height 61 in 2017-01-30 Weight 184.3 lbs 2017-01-30 Temperature 98.7 degrees Fahrenheit 2017-01-30 Heart Rate 77 bpm 2017-01-30 Respiratory Rate 18 2017-01-30 BMI 34.82 kg/m2 2017-01-30 Blood pressure systolic 118 mmHg 2017-01-30 Blood pressure diastolic 76 mmHg 2017-01-30 MEDICATIONS Medication Instructions Dosage Frequency Start Date End Date Duration Status Active RESULTS Name Result Date Reference Range STREP A (IN HOUSE) 2017-01-30 STREP A Negative Control + Lot # [id number] Exp date PROCEDURES Procedure Date Ordered Result Body Site STREP A ASSAY W/OPTIC January 30, 2017 IMMUNIZATIONS No Known Immunizations MEDICAL (GENERAL) HISTORY Type Description Date Medical History Heart murmur Medical History Asthma Medical History Depression, unspecified depression type Surgical History section x 3 2012, 2013, 2016 Surgical History orthopedic surgery-ligament repair, left ankle Hospitalization History Dehydration during multiple stays Hospitalization History Childbirth
--- OUTSIDE RECORDS SUMMARY | 2017-12-01 19:04 | XMS REPORT ---
Author [facility] Address [address] [place] [address] Care Team Providers Care Bench Precision Assembler Name Role Phone COURTNEY NELSON Unavailable PROBLEMS Type Condition ICD9-CM Code HLR40-ZA Code Onset Dates Condition Status SNOMED Code Problem Dysthymic disorder F34.1 Active 66477532 Problem Other headache syndrome G44.89 Active 905903389 Problem Irregular periods/menstrual cycles N92.6 Active 13882744 Problem Depression, unspecified depression type F32.9 Active 97517059 Problem Anemia, O90.81 Active 623181711 Problem Seasonal allergic rhinitis, unspecified allergic rhinitis trigger J30.2 Active 401979957 ALLERGIES Substance Reaction Event Type Date Status Cefaclor Unknown Drug Allergy January, Active SOCIAL HISTORY Never Assessed PLAN OF CARE Activity Details Follow Up prn Reason: VITAL SIGNS Height 61 in 2017-02-15 Weight 184.8 lbs 2017-02-15 Temperature 98.5 degrees Fahrenheit 2017-02-15 Heart Rate 96 bpm 2017-02-15 Respiratory Rate 20 2017-02-15 BMI 34.91 kg/m2 2017-02-15 Blood pressure systolic 126 mmHg 2017-02-15 Blood pressure diastolic 76 mmHg 2017-02-15 MEDICATIONS Medication Instructions Dosage Frequency Start Date End Date Duration Status Active Cetirizine HCl 10 mg Orally Once a day 1 tablet 24h January, Active RESULTS No Results PROCEDURES No Known procedures IMMUNIZATIONS No Known Immunizations MEDICAL (GENERAL) HISTORY Type Description Date Medical History Heart murmur Medical History Asthma Medical History Depression, unspecified depression type Surgical History section x 3 2012, 2013, 2016 Surgical History orthopedic surgery-ligament repair, left ankle Hospitalization History Dehydration during multiple stays Hospitalization History Childbirth
--- OUTSIDE RECORDS SUMMARY | 2017-12-01 19:04 | XMS REPORT ---
Author Author LORAINE CRUZ [facility] Address [address] [place] [address] Care Team Providers Care Whiskey Regauger Name Role Phone LORAINE CRUZ Unavailable PROBLEMS Type Condition ICD9-CM Code ISW90-TD Code Onset Dates Condition Status SNOMED Code Problem Dysthymic disorder F34.1 Active 48412799 Problem Other headache syndrome G44.89 Active 052420754 Problem Irregular periods/menstrual cycles N92.6 Active 02357205 Problem Depression, unspecified depression type F32.9 Active 25679960 Problem Anemia, O90.81 Active 296992436 Problem Seasonal allergic rhinitis, unspecified allergic rhinitis trigger J30.2 Active 383345486 ALLERGIES Substance Reaction Event Type Date Status Cefaclor Unknown Drug Allergy January, Active SOCIAL HISTORY Never Assessed PLAN OF CARE Activity Details Follow Up prn Reason: VITAL SIGNS Height 61 in 2017-02-06 Weight 183.6 lbs 2017-02-06 Temperature 98.3 degrees Fahrenheit 2017-02-06 Heart Rate 88 bpm 2017-02-06 Respiratory Rate 20 2017-02-06 BMI 34.69 kg/m2 2017-02-06 Blood pressure systolic 124 mmHg 2017-02-06 Blood pressure diastolic 76 mmHg 2017-02-06 MEDICATIONS Medication Instructions Dosage Frequency Start Date End Date Duration Status Active RESULTS No Results PROCEDURES No Known procedures IMMUNIZATIONS No Known Immunizations MEDICAL (GENERAL) HISTORY Type Description Date Medical History Heart murmur Medical History Asthma Medical History Depression, unspecified depression type Surgical History section x 3 2012, 2013, 2016 Surgical History orthopedic surgery-ligament repair, left ankle Hospitalization History Dehydration during multiple stays Hospitalization History Childbirth
--- OUTSIDE RECORDS SUMMARY | 2017-12-01 19:05 | XMS REPORT ---
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 Active 285085751 Problem Irregular periods/menstrual cycles N92.6 Active 78275046 Problem Depression, unspecified depression type F32.9 Active 87338581 Problem Anemia, O90.81 Active 086162251 Problem Seasonal allergic rhinitis, unspecified allergic rhinitis trigger J30.2 Active 506472413 ALLERGIES No Information SOCIAL HISTORY Never Assessed PLAN OF CARE VITAL SIGNS MEDICATIONS Medication Instructions Dosage Frequency Start Date End Date Duration Status ProAir HFA 108 (90 Base) MCG/ACT Inhalation every 4 hrs 2 puffs as needed 4h Active RESULTS No Results PROCEDURES No Known procedures IMMUNIZATIONS No Known Immunizations MEDICAL (GENERAL) HISTORY Type Description Date Medical History Heart murmur Medical History Asthma Medical History Depression, unspecified depression type Surgical History section x 3 2012, 2013, 2017 Surgical History orthopedic surgery-ligament repair, left ankle Hospitalization History Dehydration during multiple stays Hospitalization History Childbirth
--- OUTSIDE RECORDS SUMMARY | 2017-12-01 19:07 | XMS REPORT ---
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 740298965 Problem Irregular periods/menstrual cycles N92.6 Active 47506173 Problem Depression, unspecified depression type F32.9 Active 36039715 Problem Anemia, O90.81 Active 982051646 Problem Seasonal allergic rhinitis, unspecified allergic rhinitis trigger J30.2 Active 458439825 ALLERGIES Substance Reaction Event Type Date Status Cefaclor Unknown Drug Allergy Feb, Active SOCIAL HISTORY Never Assessed PLAN OF CARE Activity Details Follow Up prn Reason: VITAL SIGNS Height 61 in 2017-02-22 Weight 185.0 lbs 2017-02-22 Temperature 97.2 degrees Fahrenheit 2017-02-22 Heart Rate 80 bpm 2017-02-22 Respiratory Rate 20 2017-02-22 BMI 34.95 kg/m2 2017-02-22 Blood pressure systolic 112 mmHg 2017-02-22 Blood pressure diastolic 64 mmHg 2017-02-22 MEDICATIONS Medication Instructions Dosage Frequency Start Date End Date Duration Status ProAir HFA 108 (90 Base) MCG/ACT Inhalation every 4 hrs 2 puffs as needed 4h Active Miconazole 7 2 % Vaginal Once a day 1 application at bedtime 24h Feb, Feb, 7 day(s) Active Active Cetirizine HCl 10 mg Orally [...]
[2017-12-01] MEDS ORDERED: NS IV 1000 ML 1,000 ML IV ONE (19:16)
[2017-12-01] MEDS ORDERED: FAMOTIDINE 20MG/2ML IV (PEPCID) IV STA (19:16)
--- OUTSIDE RECORDS SUMMARY | 2017-12-01 19:18 | XMS REPORT | Continuity of Care Document ---
Author Author [facility] Address Unknown Phone Unavailable Allergies Active Description Code Type Severity Reaction Onset Reported/Identified Relationship to Patient Clinical Status Yes amoxicillin Drug Allergy N/A N/A 11/26/2008 Yes bees OA N/A N/A 11/26/2008 Yes amoxicillin Drug Allergy 11/26/2008 Yes bees OA 11/26/2008 Yes cefaclor [id number] Drug Allergy Mild N/A 03/11/2009 Yes Ceclor Drug Allergy N/A N/A 11/01/2010 Yes Ceclor Drug Allergy 11/01/2010 Yes amoxicillin [id number] Drug Allergy Unknown N/A 07/09/2014 Yes BEE'S BEE'S Unknown N/A 07/09/2014 Medications There is no data. Problems Date Dx Coded Attending Type Code Diagnosis Diagnosed By 11/26/2008 DERICK PORRAS DO 719.47 Pain In Joint Involving Ankle And Foot 11/26/2008 DERICK PORRAS DO V70.3 Sports/school Exam 11/26/2008 DERICK PORRAS DO 719.47 Pain In Joint Involving Ankle And Foot 11/26/2008 DERICK PORRAS DO V70.3 Sports/school Exam 11/26/2008 719.47 Pain In Joint Involving Ankle And Foot 11/26/2008 V70.3 Sports/school Exam 11/26/2008 DERCIK PORRAS DO 719.47 Pain In Joint Involving [...] ROPER APRN V70.3 Sports/school Exam 11/26/2008 OZZIE CLEANER AND PRESSER, MARLIN S 719.47 Pain In Joint Involving [...] In Joint Involving Ankle And Foot 11/26/2008 PORRAS HOSEA CHARLESA K V70.3 Sports/school Exam 11/26/2008 PORRAS DERIKC CHARLES 719.47 Pain In Joint Involving Ankle And Foot 11/26/2008 PORRAS DO DERICK K V70.3 Sports/school Exam 11/26/2008 ZAYRA [...] ZAYRA GOMEZ MD V70.3 Sports/school Exam 11/26/2008 BENITEZ SKINNER APRN 719.47 Pain In Joint Involving [...] Ankle And Foot 11/26/2008 DANIELA FINNEY, ALAN N V70.3 Sports/school Exam 11/26/2008 GILBERTO ROPER APRN [...] Upper Respiratory Infection 01/06/2009 GILBERTO ROPER APRN 465.9 Upper Respiratory Infection 01/06/2009 OZZIE HERNÁNDEZN, MARLIN S 465.9 Upper Respiratory Infection 01/06/2009 JUDSON CLEANER AND PRESSER, GILBERTO A 465.9 Upper Respiratory Infection 01/06/2009 JUDSON CLEANER AND PRESSER, GILBERTO A 465.9 Upper Respiratory Infection 01/06/2009 465.9 Upper Respiratory Infection 01/06/2009 JUDSON CLEANER AND PRESSER, GILBERTO A 465.9 Upper Respiratory Infection 01/06/2009 SHAHDI SACRAMENTOSILVA VALDEZ APRN N 465.9 Upper Respiratory Infection 01/06/2009 OZZIE CLEANER AND PRESSER, MARLIN S 465.9 Upper Respiratory Infection 01/06/2009 JUDSON CLEANER AND PRESSER, GILBERTO A 465.9 Upper Respiratory Infection 01/06/2009 [...] MD 465.9 Upper Respiratory Infection 01/06/2009 JUDSON CLEANER AND PRESSER, GILBERTO A 465.9 Upper Respiratory Infection 01/06/2009 ALAN SUAREZ MD 465.9 Upper Respiratory Infection 01/06/2009 ALAN SUAREZ MD 465.9 Upper Respiratory Infection 01/06/2009 ZAYRA GOMEZ MD 465.9 Upper Respiratory Infection 01/06/2009 ALAN SUAREZ MD 465.9 Upper Respiratory Infection 01/06/2009 JUDSON CLEANER AND PRESSER, GILBERTO A 465.9 Upper Respiratory Infection 01/06/2009 [...] Planning To Avoid 08/24/2009 DERICK PORRAS DO V25.41 Visit For: Contraceptive Surveillance Pill 08/24/2009 DERICK PORRAS DO K V69.2 Sexually Active, Frequently With New Partners 08/24/2009 DERICK PORRAS DO V72.31 Pelvic Exam (internal) 08/24/2009 DERICK PORRAS DO V74.5 Std Screen 08/24/2009 DERICK PORRAS DO K V25.41 Visit For: Contraceptive Surveillance Pill 08/24/2009 HOSEA PORRAS DOA K V69.2 Sexually Active, Frequently With New Partners 08/24/2009 DERICK PORRAS DO V72.31 Pelvic Exam (internal) 08/24/2009 DERICK PORRAS DO V74.5 Std Screen 08/24/2009 V25.41 Visit For: Contraceptive Surveillance Pill 08/24/2009 V69.2 Sexually Active, Frequently With New Partners 08/24/2009 V72.31 Pelvic Exam ( internal) 08/24/2009 V74.5 Std Screen 08/24/2009 DERICK PORRAS DO V25.41 Visit For: Contraceptive Surveillance Pill 08/24/2009 PORRAS HOSEA CHARLESA K V69.2 Sexually Active, Frequently With New Partners 08/24/2009 DERICK PORRAS DO V72.31 Pelvic Exam (internal) 08/24/2009 DERICK PORRAS DO V74.5 Std Screen 08/24/2009 V25.41 Visit For: Contraceptive Surveillance Pill 08/24/2009 V69.2 Sexually Active, Frequently With New Partners 08/24/2009 V72.31 Pelvic Exam ( internal) 08/24/2009 V74.5 Std Screen 08/24/2009 V25.41 Visit For: Contraceptive Surveillance Pill 08/24/2009 V69.2 Sexually Active, Frequently With New Partners 08/24/2009 V72.31 Pelvic Exam ( internal) 08/24/2009 V74.5 Std Screen 08/24/2009 V25.41 Visit For: Contraceptive Surveillance Pill 08/24/2009 V69.2 Sexually Active, Frequently With New Partners 08/24/2009 V72.31 Pelvic Exam ( internal) 08/24/2009 V74.5 Std Screen 08/24/2009 DERICK PORRAS DO V25.41 Visit For: Contraceptive Surveillance Pill 08/24/2009 DERICK PORRAS DO V69.2 Sexually Active, Frequently With New Partners 08/24/2009 DERICK PORRAS DO V72.31 Pelvic Exam (internal) 08/24/2009 DERICK PORRAS DO V74.5 Std Screen 08/24/2009 V25.41 Visit For: Contraceptive Surveillance Pill 08/24/2009 V69.2 Sexually Active, Frequently With New Partners 08/24/2009 V72.31 Pelvic Exam ( internal) 08/24/2009 V74.5 Std Screen 08/24/2009 V25.41 Visit For: Contraceptive Surveillance Pill 08/24/2009 V69.2 Sexually Active, Frequently With New Partners 08/24/2009 V72.31 Pelvic Exam ( internal) 08/24/2009 V74.5 Std Screen 08/24/2009 V25.41 Visit For: Contraceptive Surveillance Pill 08/24/2009 V69.2 Sexually Active, Frequently With New Partners 08/24/2009 V72.31 Pelvic Exam ( internal) 08/24/2009 V74.5 Std Screen 08/24/2009 V25.41 Visit For: Contraceptive Surveillance Pill 08/24/2009 V69.2 Sexually Active, Frequently With New Partners 08/24/2009 V72.31 Pelvic Exam ( internal) 08/24/2009 V74.5 Std Screen 08/24/2009 V25.41 Visit For: Contraceptive Surveillance Pill 08/24/2009 V69.2 Sexually Active, Frequently With New Partners 08/24/2009 V72.31 Pelvic Exam ( internal) 08/24/2009 V74.5 Std Screen 08/24/2009 V25.41 Visit For: Contraceptive Surveillance Pill 08/24/2009 V69.2 Sexually Active, Frequently With New Partners 08/24/2009 V72.31 Pelvic Exam ( internal) 08/24/2009 V74.5 Std Screen 08/24/2009 V25.41 Visit For: Contraceptive Surveillance Pill 08/24/2009 V69.2 Sexually Active, Frequently With New Partners 08/24/2009 V72.31 Pelvic Exam ( internal) 08/24/2009 V74.5 Std Screen 08/24/2009 V25.41 Visit For: Contraceptive Surveillance Pill 08/24/2009 V69.2 Sexually Active, Frequently With New Partners 08/24/2009 V72.31 Pelvic Exam ( internal) 08/24/2009 V74.5 Std Screen 08/24/2009 V25.41 Visit For: Contraceptive Surveillance Pill 08/24/2009 V69.2 Sexually Active, Frequently With New Partners 08/24/2009 V72.31 Pelvic Exam ( internal) 08/24/2009 V74.5 Std Screen 08/24/2009 V25.41 Visit For: Contraceptive Surveillance Pill 08/24/2009 V69.2 Sexually Active, Frequently With New Partners 08/24/2009 V72.31 Pelvic Exam ( internal) 08/24/2009 V74.5 Std Screen 08/24/2009 V25.41 Visit For: Contraceptive Surveillance Pill 08/24/2009 V69.2 Sexually Active, Frequently With New Partners 08/24/2009 V72.31 Pelvic Exam ( internal) 08/24/2009 V74.5 Std Screen 08/24/2009 V25.41 Visit For: Contraceptive Surveillance Pill 08/24/2009 V69.2 Sexually Active, Frequently With New Partners 08/24/2009 V72.31 Pelvic Exam ( internal) 08/24/2009 V74.5 Std Screen 08/24/2009 V25.41 Visit For: Contraceptive Surveillance Pill 08/24/2009 V69.2 Sexually Active, Frequently With New Partners 08/24/2009 V72.31 Pelvic Exam ( internal) 08/24/2009 V74.5 Std Screen 08/24/2009 PORRAS DO, DERICK K V25.41 Visit For: Contraceptive Surveillance Pill 08/24/2009 CHIQUITA DO, DERICK K V69.2 Sexually Active, Frequently With New Partners 08/24/2009 PORRAS DOHOSEAA K V72.31 Pelvic Exam (internal) 08/24/2009 PORRAS DOHOSEAA K V74.5 Std Screen 08/24/2009 JUDSON CLEANER AND PRESSER, GILBERTO A V25.41 Visit For: Contraceptive Surveillance Pill 08/24/2009 JUDSON CLEANER AND PRESSER, GILBERTO A V69.2 Sexually Active, Frequently With New Partners 08/24/2009 JUDSON CLEANER AND PRESSER, GILBERTO A V72.31 Pelvic Exam (internal) 08/24/2009 JUDSON CLEANER AND PRESSER, GILBERTO A V74.5 Std Screen 08/24/2009 RAMEZ HORNE APRNNDA S V25.41 Visit For: Contraceptive Surveillance Pill 08/24/2009 OZZIE CLEANER AND PRESSER MARLIN S V69.2 Sexually Active, Frequently With New Partners 08/24/2009 OZZIE CLEANER AND PRESSERRAMEZMARLIN S V72.31 Pelvic Exam (internal) 08/24/2009 OZZIE CLEANER AND PRESSER MARLIN S V74.5 Std Screen 08/24/2009 JUDSON CLEANER AND PRESSER, GILBEROT A V25.41 Visit For: Contraceptive Surveillance Pill 08/24/2009 JUDSON CLEANER AND PRESSER, GILBERTO A V69.2 Sexually Active, Frequently With New Partners 08/24/2009 JUDSON CLEANER AND PRESSER, GILBERTO A V72.31 Pelvic Exam (internal) 08/24/2009 JUDSON CLEANER AND PRESSER, GILBERTO A V74.5 Std Screen 08/24/2009 JUDSON CLEANER AND PRESSER, GILBERTO A V25.41 Visit For: Contraceptive Surveillance Pill 08/24/2009 JUDSON CLEANER AND PRESSER, GILBERTO A V69.2 Sexually Active, Frequently With New Partners 08/24/2009 JUDSON CLEANER AND PRESSER, GILBERTO A V72.31 Pelvic Exam (internal) 08/24/2009 JUDSON CLEANER AND PRESSER, GILBERTO A V74.5 Std Screen 08/24/2009 V25.41 Visit For: Contraceptive Surveillance Pill 08/24/2009 V69.2 Sexually Active, Frequently With New Partners 08/24/2009 V72.31 Pelvic Exam ( internal) 08/24/2009 V74.5 Std Screen 08/24/2009 JUDSON CLEANER AND PRESSER, GILBERTO A V25.41 Visit For: Contraceptive Surveillance Pill 08/24/2009 JUDSON CLEANER AND PRESSER, GILBERTO A V69.2 Sexually Active, Frequently With New Partners 08/24/2009 JUDSON CLEANER AND PRESSER, GILBERTO A V72.31 Pelvic Exam (internal) 08/24/2009 JUDSON CLEANER AND PRESSER, GILBERTO A V74.5 Std Screen 08/24/2009 SHAHID KELLY CLEANER AND PRESSER, SILVA N V25.41 Visit For: Contraceptive Surveillance Pill 08/24/2009 SHAHID CASHERO CLEANER AND PRESSER, SILVA N V69.2 Sexually Active, Frequently With New Partners 08/24/2009 SHAHID CASHERO CLEANER AND PRESSER, SILVA N V72.31 Pelvic Exam (internal) 08/24/2009 SHAHID CASHERO CLEANER AND PRESSER, SILVA N V74.5 Std Screen 08/24/2009 OZZIE CLEANER AND PRESSER, MARLIN S V25.41 Visit For: Contraceptive Surveillance Pill 08/24/2009 OZZIE CLEANER AND PRESSER, MARLIN S V69.2 Sexually Active, Frequently With New Partners 08/24/2009 OZZIE CLEANER AND PRESSER, MARLIN S V72.31 Pelvic Exam (internal) 08/24/2009 OZZIE CLEANER AND PRESSER, MARLIN S V74.5 Std Screen 08/24/2009 JUDSON CLEANER AND PRESSER, GILBERTO A V25.41 Visit For: Contraceptive Surveillance Pill 08/24/2009 JUDSON CLEANER AND PRESSER, GILBERTO A V69.2 Sexually Active, Frequently With New Partners 08/24/2009 JUDSON CLEANER AND PRESSER, GILBERTO A V72.31 Pelvic Exam (internal) 08/24/2009 JUDSON CLEANER AND PRESSER, GILBERTO A V74.5 Std Screen 08/24/2009 PORRAS [...] ZAYRA GOMEZ MD V74.5 Std Screen 08/24/2009 RAMEZ HORNE APRNNDA S V25.41 Visit For: Contraceptive Surveillance Pill 08/24/2009 RAMEZ HORNE APRNNDA S V69.2 Sexually Active, Frequently With New Partners 08/24/2009 RAMEZ HORNE APRNNDA S V72.31 Pelvic Exam (internal) 08/24/2009 RAMEZ HORNE APRNNDA S V74.5 Std Screen 08/24/2009 ZAYRA GOMEZ MD V25.41 Visit For: Contraceptive Surveillance Pill 08/24/2009 AZYRA GOMEZ MD V69.2 Sexually Active, Frequently With [...] V25.41 Visit For: Contraceptive Surveillance Pill 08/24/2009 SKINNER BENITEZ GRADY V69.2 Sexually Active, Frequently With New Partners 08/24/2009 BENITEZ SKINNER APRN V72.31 Pelvic Exam (internal) 08/24/2009 BENITEZ SKINNER APRN V74.5 Std Screen 08/24/2009 ZAYRA GOMEZ MD V25.41 Visit For: Contraceptive Surveillance Pill 08/24/2009 ZAYRA GOMEZ MD V69.2 Sexually Active, Frequently With New Partners 08/24/2009 ZAYRA GOMEZ MD V72.31 Pelvic Exam (internal) 08/24/2009 ZAYRA GOMEZ MD V74.5 Std Screen 08/24/2009 JUDSONCharlee GRADY GILBERTO A V25.41 Visit For: Contraceptive Surveillance Pill 08/24/2009 JUDSON APRN, GILBERTO A V69.2 Sexually Active, Frequently With New Partners 08/24/2009 JUDSON APRN, GILBERTO A V72.31 Pelvic Exam (internal) 08/24/2009 JUDSON APRN, GILBERTO A V74.5 Std Screen 08/24/2009 ALAN [...] SUAREZ MD V74.5 Std Screen 08/24/2009 JUDSON APRN, GILBERTO A V25.41 Visit For: Contraceptive Surveillance Pill 08/24/2009 JUDSON CLEANER AND PRESSER, GILBERTO A V69.2 Sexually Active, Frequently With New Partners 08/24/2009 JUDSON CLEANER AND PRESSER, GILBERTO A V72.31 Pelvic Exam (internal) 08/24/2009 JUDSON CLEANER AND PRESSER, GILBERTO A V74.5 Std Screen 08/24/2009 CHIQUITA DO DERICK K V25.41 Visit For: Contraceptive Surveillance Pill 08/24/2009 PORRAS DO, DERICK K V69.2 Sexually Active, Frequently With New Partners 08/24/2009 PORRAS DO DERICK K V72.31 Pelvic Exam (internal) 08/24/2009 PORRAS DO DERICK K V74.5 Std Screen 08/24/2009 PORRAS DO DERICK K V25.41 Visit For: Contraceptive Surveillance Pill 08/24/2009 PORRAS DO, DERICK K V69.2 Sexually Active, Frequently With New Partners 08/24/2009 PORRAS DO DERICK K V72.31 Pelvic Exam (internal) 08/24/2009 PORRAS DO DERICK K V74.5 Std Screen 08/24/2009 MADL CLEANER AND PRESSER, JAMIA L V25.41 Visit For: Contraceptive Surveillance Pill 08/24/2009 MADL CLEANER AND PRESSER, JAMIA L V69.2 Sexually Active, Frequently With New Partners 08/24/2009 MADL CLEANER AND PRESSER, JAMIA L V72.31 Pelvic Exam (internal) 08/24/2009 JAMIA BINGHAM APRN Claudia V74.5 Std Screen 11/02/2009 DERICK PORRAS DO K 388.70 Ear Ache 11/02/2009 PORRAS DO DERICK K 388.70 Ear Ache 11/02/2009 388.70 Ear Ache 11/02/2009 PORRAS DO DERICK K 388.70 Ear Ache 11/02/2009 388.70 Ear Ache 11/02/2009 388.70 Ear Ache 11/02/2009 388.70 Ear Ache 11/02/2009 PORRAS DOHOSEAA K 388.70 Ear Ache 11/02/2009 388.70 Ear Ache 11/02/2009 388.70 Ear Ache 11/02/2009 388.70 Ear Ache 11/02/2009 388.70 Ear Ache 11/02/2009 388.70 Ear Ache 11/02/2009 388.70 Ear Ache 11/02/2009 388.70 Ear Ache 11/02/2009 388.70 Ear Ache 11/02/2009 388.70 Ear Ache 11/02/2009 388.70 Ear Ache 11/02/2009 388.70 Ear Ache 11/02/2009 388.70 Ear Ache 11/02/2009 388.70 Ear Ache 11/02/2009 HOSEA PORRAS DOA K 388.70 Ear Ache 11/02/2009 JUDSONTRENT GRADY, GILBERTO A 388.70 Ear Ache 11/02/2009 MARLIN HORNE APRN S 388.70 Ear Ache 11/02/2009 JUDSON CLEANER AND PRESSER, GILBERTO A 388.70 Ear Ache 11/02/2009 JUDSONTRENT GRADY, GILBERTO A 388.70 Ear Ache 11/02/2009 388.70 Ear Ache 11/02/2009 JUDSON CLEANER AND PRESSER, GILBERTO A 388.70 Ear Ache 11/02/2009 SLIVA VALENZUELA APRN 388.70 Ear Ache 11/02/2009 MARLIN HORNE APRN S 388.70 Ear Ache 11/02/2009 JUDSON YSABEL, GILBERTO A 388.70 Ear Ache 11/02/2009 DERICK PORRAS DO K 388.70 Ear Ache 11/02/2009 PORRAS DERICK CHARLES K 388.70 Ear Ache 11/02/2009 JASON FINNEY, ZAYRA Shea 388.70 Ear Ache 11/02/2009 ZAYRA GOMEZ MD 388.70 Ear Ache 11/02/2009 MARLIN HORNE APRN 388.70 Ear Ache 11/02/2009 ZAYRA GOMEZ MD 388.70 Ear Ache 11/02/2009 ZAYRA GOMEZ MD 388.70 Ear Ache 11/02/2009 ZAYRA GOMEZ MD 388.70 Ear Ache 11/02/2009 BENITEZ SKINNER APRN 388.70 Ear Ache 11/02/2009 ZAYRA GOMEZ MD 388.70 Ear Ache 11/02/2009 GILBERTO ROPER APRN A 388.70 Ear Ache 11/02/2009 ALAN SUAREZ MD 388.70 Ear Ache 11/02/2009 ALAN SUAREZ MD 388.70 Ear Ache 11/02/2009 ZAYRA GOMEZ MD 388.70 Ear Ache 11/02/2009 ALAN SUAREZ MD 388.70 Ear Ache 11/02/2009 GILBERTO ROPER [...] 11/23/2009 300.4 MO DYSTHYMIC DISORDER 11/23/2009 PORRAS DO DERICK K 300.4 MO DYSTHYMIC DISORDER 11/23/2009 JUDSON CLEANER AND PRESSER, GILBERTO A 300.4 MO DYSTHYMIC DISORDER 11/23/2009 OZZIE GRADY MARLIN S 300.4 MO DYSTHYMIC DISORDER 11/23/2009 JUDSON CLEANER AND PRESSER, GILBERTO A 300.4 MO DYSTHYMIC DISORDER 11/23/2009 JUDSON GRADY, GILBERTO A 300.4 MO DYSTHYMIC DISORDER 11/23/2009 300.4 MO DYSTHYMIC DISORDER 11/23/2009 JUDSON GRADY GILBERTO A 300.4 MO DYSTHYMIC DISORDER 11/23/2009 SILVA VALENZUELA APRN N 300.4 MO DYSTHYMIC DISORDER 11/23/2009 OZZIE GRADY MARLIN S 300.4 MO DYSTHYMIC DISORDER 11/23/2009 JUDSON GRADY, GILBERTO A 300.4 MO DYSTHYMIC DISORDER 11/23/2009 PORRAS DOHOSEAA K 300.4 MO DYSTHYMIC DISORDER 11/23/2009 PORRAS DOHOSEAA K 300.4 MO DYSTHYMIC DISORDER 11/23/2009 ZAYRA [...] 296.90 Mo Mood Dis Nos 12/14/2009 JUDSON CLEANER AND PRESSER, GILBERTO A 296.90 Mo Mood Dis Nos 12/14/2009 OZZIE CLEANER AND PRESSER, MARLIN S 296.90 Mo Mood Dis Nos 12/14/2009 JUDSON CLEANER AND PRESSER, GILBERTO A 296.90 Mo Mood Dis Nos 12/14/2009 JUDSON CLEANER AND PRESSER, GILBERTO A 296.90 Mo Mood Dis Nos 12/14/2009 296.90 Mo Mood Dis Nos 12/14/2009 JUDSON HERNÁNDEZN, GILBERTO A 296.90 Mo Mood Dis Nos 12/14/2009 ZEHRA MENDOZA CLEANER AND PRESSER, SILVA N 296.90 Mo Mood Dis Nos 12/14/2009 OZZIE CLEANER AND PRESSER, MARLIN S 296.90 Mo Mood Dis Nos 12/14/2009 JUDSON CLEANER AND PRESSER, GILBERTO A 296.90 Mo Mood Dis Nos 12/14/2009 PORRAS DO, DERICK K 296.90 Mo Mood Dis Nos 12/14/2009 PORRAS DO, DERICK K 296.90 Mo Mood Dis Nos 12/14/2009 ZAYRA GOMEZ MD 296.90 Mo Mood Dis Nos 12/14/2009 ZAYRA GOMEZ MD 296.90 Mo Mood Dis Nos 12/14/2009 OZZIE [...] 296.90 Mo Mood Dis Nos 12/14/2009 JUDSON CLEANER AND PRESSER, GILBERTO A 296.90 Mo Mood Dis Nos 12/14/2009 PORRAS DO, DERICK K 296.90 Mo Mood Dis Nos 12/14/2009 DERICK PORRAS DO K 296.90 Mo Mood Dis Nos 12/14/2009 JAMIA BINGHAM APRN 296.90 Mo Mood Dis Nos 05/14/2010 DERICK PORRAS DO K 626.0 Absence Of Menstruation 05/14/2010 DERICK PORRAS DO K 626.0 Absence Of Menstruation 05/14/2010 626.0 Absence Of Menstruation 05/14/2010 DERICK PORRAS DO K 626.0 Absence Of Menstruation 05/14/2010 626.0 Absence Of Menstruation 05/14/2010 626.0 Absence Of Menstruation 05/14/2010 626.0 Absence Of Menstruation 05/14/2010 DERICK PORRAS DO K 626.0 Absence Of Menstruation 05/14/2010 626.0 Absence [...] DO K 626.0 Absence Of Menstruation 05/14/2010 OSIEL ROPER APRNIDI A 626.0 Absence Of Menstruation 05/14/2010 MARLIN HORNE APRN 626.0 Absence Of Menstruation 05/14/2010 OSIEL ROPER APRNIDI A 626.0 Absence Of Menstruation 05/14/2010 OSIEL ROPER APRNIDI A 626.0 Absence Of Menstruation 05/14/2010 626.0 Absence Of Menstruation 05/14/2010 OSIEL ROPER APRNIDI A 626.0 Absence Of Menstruation 05/14/2010 SHAHID CASHERO CLEANER AND PRESSER, SILVA N 626.0 Absence Of Menstruation 05/14/2010 BRISEIDA HORNE APRNA S 626.0 Absence Of Menstruation 05/14/2010 GILBERTO [...] MD N 626.0 Absence Of Menstruation 05/14/2010 ZAYRA GOMEZ MD 626.0 Absence Of Menstruation 05/14/2010 ALAN SUAREZ MD N 626.0 Absence Of Menstruation 05/14/2010 GILBERTO ROPER [...] K 789.00 Abdominal Pain Unspecified Site 06/12/2010 JUDSON GRADY, GILBERTO A 789.00 Abdominal Pain Unspecified Site 06/12/2010 BRISEIDA HORNE APRNA S 789.00 Abdominal Pain Unspecified Site 06/12/2010 JUDSON GRADY, GILBERTO A 789.00 Abdominal Pain Unspecified Site 06/12/2010 JUDSON GRADY, GILBERTO A 789.00 Abdominal Pain Unspecified Site 06/12/2010 789.00 Abdominal Pain Unspecified Site 06/12/2010 JUDSON GRADY, GILBERTO A 789.00 Abdominal Pain Unspecified Site 06/12/2010 [facility] SILVA GRADY N 789.00 Abdominal Pain Unspecified Site 06/12/2010 BRISEIDA HORNE APRNA S 789.00 Abdominal Pain Unspecified Site 06/12/2010 JUDSON GRADY, GILBERTO A 789.00 Abdominal Pain Unspecified Site 06/12/2010 PORRAS DO, DERICK K 789.00 Abdominal Pain Unspecified Site 06/12/2010 PORRAS DO, DERICK K 789.00 Abdominal Pain Unspecified Site 06/12/2010 ZAYRA GOMEZ MD 789.00 Abdominal Pain Unspecified Site 06/12/2010 ZAYRA GOMEZ MD 789.00 Abdominal Pain Unspecified Site 06/12/2010 MARLIN HORNE APRN 789.00 Abdominal Pain Unspecified Site 06/12/2010 ZAYRA GOMEZ MD 789.00 Abdominal Pain Unspecified Site 06/12/2010 ZAYRA GOMEZ MD 789.00 Abdominal Pain Unspecified Site 06/12/2010 ZAYRA GOMEZ MD 789.00 Abdominal Pain Unspecified Site 06/12/2010 BENITEZ SKINNER APRN 789.00 Abdominal Pain Unspecified Site 06/12/2010 ZAYRA GOMEZ MD 789.00 Abdominal Pain Unspecified Site 06/12/2010 GILBERTO ROPER APRN A 789.00 Abdominal Pain Unspecified Site 06/12/2010 DANIELA FINNEY, ALAN N 789.00 Abdominal Pain Unspecified Site 06/12/2010 DANIELA FINNEY, ALAN N 789.00 Abdominal Pain Unspecified Site 06/12/2010 ZAYRA GOMEZ MD 789.00 Abdominal Pain Unspecified Site 06/12/2010 DANIELA FINNEY, ALAN N 789.00 Abdominal Pain Unspecified Site 06/12/2010 GILBERTO [...] Test Positive Result 10/20/2010 DERICK PORRAS DO K V72.42 Examination Or Test Positive Result 10/20/2010 JUDSONTRENT GRADY, GILBERTO A V72.42 Examination Or Test Positive Result 10/20/2010 MARLIN HORNE APRN S V72.42 Examination Or Test Positive Result 10/20/2010 JUDSONTRENT GRADY, GILBERTO A V72.42 Examination Or Test Positive Result 10/20/2010 JUDSON GRADY, GILBERTO A V72.42 Examination Or Test Positive Result 10/20/2010 V72.42 Examination Or Test Positive Result 10/20/2010 JUDSON CLEANER AND PRESSER, GILBERTO A V72.42 Examination Or Test Positive Result 10/20/2010 SILVA VALENZUELA APRN V72.42 Examination Or Test Positive Result 10/20/2010 RAMEZ HORNE APRNNDA S V72.42 Examination Or Test Positive Result 10/20/2010 JUDSON GRADY, GILBERTO A V72.42 Examination Or Test Positive [...] V72.42 Examination Or Test Positive Result 10/22/2010 PORRAS DO DERICK K 633.00 Abdominal Without Intrauterine 10/22/2010 PORRAS DO, DERICK K 633.00 Abdominal Without Intrauterine 10/22/2010 633.00 Abdominal Without Intrauterine 10/22/2010 PORRAS DO DERICK K 633.00 Abdominal Without Intrauterine 10/22/2010 633.00 [...] DO K 633.00 Abdominal Without Intrauterine 10/22/2010 JUDSON CLEANER AND PRESSER, GILBERTO A 633.00 Abdominal Without Intrauterine 10/22/2010 OZZIE CLEANER AND PRESSER, MARLIN S 633.00 Abdominal Without Intrauterine 10/22/2010 JUDSON CLEANER AND PRESSER, GILBERTO A 633.00 Abdominal Without Intrauterine 10/22/2010 JUDSON CLEANER AND PRESSER, GILBERTO A 633.00 Abdominal Without Intrauterine 10/22/2010 633.00 Abdominal Without Intrauterine 10/22/2010 JUDSON CLEANER AND PRESSER, GILBERTO A 633.00 Abdominal Without Intrauterine 10/22/2010 [facility] CLEANER AND PRESSER, SILVA N 633.00 Abdominal Without Intrauterine 10/22/2010 OZZIE CLEANER AND PRESSER, MARLIN S 633.00 Abdominal Without Intrauterine 10/22/2010 JUDSON CLEANER AND PRESSER, GILBERTO A 633.00 Abdominal Without Intrauterine 10/22/2010 DERICK PORRAS DO 633.00 Abdominal Without Intrauterine 10/22/2010 DERICK PORRAS DO K 633.00 Abdominal Without Intrauterine 10/22/2010 ZAYRA GOMEZ MD 633.00 Abdominal Without Intrauterine 10/22/2010 ZAYRA GOMEZ MD 633.00 Abdominal Without Intrauterine 10/22/2010 OZZIE GRADY MARLIN S 633.00 Abdominal Without Intrauterine 10/22/2010 ZAYRA GOMEZ MD 633.00 Abdominal Without Intrauterine 10/22/2010 ZAYRA GOMEZ MD 633.00 Abdominal Without Intrauterine 10/22/2010 ZAYRA GOMEZ MD 633.00 Abdominal Without Intrauterine 10/22/2010 BENITEZ SKINNER APRN 633.00 Abdominal Without Intrauterine 10/22/2010 ZAYRA GOMEZ MD 633.00 Abdominal Without Intrauterine 10/22/2010 GILBERTO ROPER APRN 633.00 Abdominal Without Intrauterine 10/22/2010 ALAN SUAREZ MD 633.00 Abdominal Without Intrauterine 10/22/2010 ALAN SUAREZ MD 633.00 Abdominal Without Intrauterine 10/22/2010 ZAYRA GOMEZ MD 633.00 Abdominal Without Intrauterine 10/22/2010 DANIELA FINNEY, ALAN Deshpande 633.00 Abdominal Without Intrauterine 10/22/2010 GILBERTO ROPER APRN A 633.00 Abdominal Without Intrauterine 10/22/2010 PORRAS DODERICK K 633.00 Abdominal Without Intrauterine 10/22/2010 PORRAS DODERICK K 633.00 Abdominal Without Intrauterine 10/22/2010 JAMIA BINGHAM APRN 633.00 Abdominal Without Intrauterine 11/01/2010 DERICK PORRAS DO 640.00 Threatened 11/01/2010 DERICK PORRAS DO 640.00 Threatened 11/01/2010 640.00 Threatened 11/01/2010 DERICK PORRAS DO 640.00 Threatened 11/01/2010 640.00 Threatened 11/01/2010 640.00 Threatened 11/01/2010 640.00 Threatened 11/01/2010 DERICK PORRAS DO 640.00 Threatened 11/01/2010 640.00 Threatened 11/01/2010 640.00 Threatened 11/01/2010 640.00 Threatened 11/01/2010 640.00 Threatened 11/01/2010 640.00 Threatened 11/01/2010 640.00 Threatened 11/01/2010 640.00 Threatened 11/01/2010 640.00 Threatened 11/01/2010 640.00 Threatened 11/01/2010 640.00 Threatened 11/01/2010 640.00 Threatened 11/01/2010 640.00 Threatened 11/01/2010 640.00 Threatened 11/01/2010 DERICK PORRAS DO K 640.00 Threatened 11/01/2010 JU[employer]ER, GILBERTO A 640.00 Threatened 11/01/2010 OZZIE CLE[employer]ER [employer] PRESSER, MARLIN S 640.00 Threatened 11/01/2010 JU[employer]ON [employer]ER, GILBERTO A 640.00 Threatened 11/01/2010 JUDSON CLEANER AND PRESSER, GILBERTO A 640.00 Threatened 11/01/2010 640.00 Threatened 11/01/2010 JUDSON CLEANER AND PRESSER, GILBERTO A 640.00 Threatened 11/01/2010 SHAHID CRISTINACOURTNEY CLEANER AND PRESSER, SILVA N 640.00 Threatened 11/01/2010 OZZIE CLEANER AND PRESSER, MARLIN S 640.00 Threatened 11/01/2010 JUDSON CLEANER AND PRESSER, GILBERTO A 640.00 Threatened 11/01/2010 DERICK PORRAS DO K 640.00 Threatened 11/01/2010 HOSEA PORRAS DOA K 640.00 Threatened 11/01/2010 ZAYRA GOMEZ MD 640.00 Threatened 11/01/2010 ZAYRA GOMEZ MD 640.00 Threatened 11/01/2010 OZZIE CLEANER AND PRESSER, MARLIN S 640.00 Threatened 11/01/2010 ZAYRA GOMEZ MD 640.00 Threatened 11/01/2010 ZAYRA GOEMZ MD 640.00 Threatened 11/01/2010 ZAYRA GOMEZ MD 640.00 Threatened 11/01/2010 SUSANNE CLEANER AND PRESSERBENITEZ Deshpande 640.00 Threatened 11/01/2010 ZAYRA GOMEZ MD 640.00 Threatened 11/01/2010 JUDSON CLEANER AND PRESSER, GILBERTO A 640.00 Threatened 11/01/2010 ALAN SUAREZ MD 640.00 Threatened 11/01/2010 ALAN SUAREZ MD N 640.00 Threatened 11/01/2010 ZAYRA GOMEZ MD 640.00 Threatened 11/01/2010 ALAN SUAREZ MD N 640.00 Threatened 11/01/2010 JUDSON CLEANER AND PRESSER, GILBERTO A 640.00 Threatened 11/01/2010 PORRAS DO, DERICK K 640.00 Threatened 11/01/2010 PORRAS DO, EDRICK K 640.00 Threatened 11/01/2010 MADL CLEANER AND PRESSER, JAMIA Taylor 640.00 Threatened 11/14/2010 PORRAS DO, DERICK K V22.0 , Normal First 11/14/2010 PORRAS DO, DERICK K V22.0 , Normal First 11/14/2010 V22.0 , Normal First 11/14/2010 PORRAS DO, DERICK K V22.0 , Normal First 11/14/2010 V22.0 , Normal First 11/14/2010 V22.0 , Normal First 11/14/2010 V22.0 , Normal First 11/14/2010 PORRAS DO, DERIKC K V22.0 , Normal First 11/14/2010 V22.0 [...] K V22.0 , Normal First 11/14/2010 JUDSON CLEANER AND PRESSER, GILBERTO A V22.0 , Normal First 11/14/2010 OZZIE CLEANER AND PRESSER, MARLIN S V22.0 , Normal First 11/14/2010 JUDSON CLEANER AND PRESSER, GILBERTO A V22.0 , Normal First 11/14/2010 JUDSON CLEANER AND PRESSER, GILBERTO A V22.0 , Normal First 11/14/2010 V22.0 , Normal First 11/14/2010 JUDSON CLEANER AND PRESSER, GILBERTO A V22.0 , Normal First 11/14/2010 ZEHRA MENDOZA CLEANER AND PRESSER, SILVA N V22.0 , Normal First 11/14/2010 OZZIE GRADY, MARLIN S V22.0 , Normal First 11/14/2010 JUDSON CLEANER AND PRESSER, GILBERTO A V22.0 , Normal First 11/14/2010 [...] GOMEZ MD V22.0 , Normal First 11/14/2010 SUSANNE GRADY, BENITEZ D V22.0 , Normal First 11/14/2010 ZAYRA GOMEZ MD V22.0 , Normal First 11/14/2010 JUDSON GRADY, GILBERTO A V22.0 , Normal First 11/14/2010 DANIELA FINNEY, ALAN N V22.0 , Normal First 11/14/2010 DANIELA FINNEY, ALAN N V22.0 , Normal First 11/14/2010 ZAYRA GOMEZ MD V22.0 , Normal First 11/14/2010 ALAN SUAREZ MD N V22.0 , Normal First 11/14/2010 JUDSON HERNÁNDEZN, GILBERTO A V22.0 , Normal First 11/14/2010 PORRAS DO, DERICK K V22.0 , Normal First 11/14/2010 PORRAS DO, DERICK K V22.0 , Normal First 11/14/2010 MADClaudia CLEANER AND PRESSER, JAMIA L V22.0 , Normal First 11/22/2010 PORRAS DO, DERICK K 616.10 Vaginitis Vulvovaginitis Unspecified 11/22/2010 DERICK PORRAS DO K 616.10 Vaginitis Vulvovaginitis Unspecified 11/22/2010 616.10 Vaginitis Vulvovaginitis Unspecified 11/22/2010 PORRAS DERICK CHARLES K 616.10 Vaginitis Vulvovaginitis Unspecified 11/22/2010 616.10 [...] A 616.10 Vaginitis Vulvovaginitis Unspecified 11/22/2010 JUDSON HERNÁNDEZN, GILBERTO A 616.10 Vaginitis Vulvovaginitis Unspecified 11/22/2010 616.10 Vaginitis Vulvovaginitis Unspecified 11/22/2010 JUDSON CLEANER AND PRESSER, GILBERTO A 616.10 Vaginitis Vulvovaginitis Unspecified 11/22/2010 SHAHID SACRAMENTOCOURTNEY GRADY, SILVA N 616.10 Vaginitis Vulvovaginitis Unspecified 11/22/2010 OZZIE GRADY, MARLIN S 616.10 Vaginitis Vulvovaginitis Unspecified 11/22/2010 JUDSON GRADY, GILBERTO A 616.10 Vaginitis Vulvovaginitis Unspecified 11/22/2010 DERICK PORRAS DO K 616.10 Vaginitis Vulvovaginitis Unspecified 11/22/2010 DERICK PORRAS DO K 616.10 Vaginitis Vulvovaginitis Unspecified 11/22/2010 ZAYRA GOMEZ MD 616.10 Vaginitis Vulvovaginitis Unspecified 11/22/2010 ZAYRA GOMEZ MD 616.10 Vaginitis Vulvovaginitis Unspecified 11/22/2010 MARLIN HORNE APRN S 616.10 Vaginitis Vulvovaginitis Unspecified 11/22/2010 ZAYRA [...] MD 616.10 Vaginitis Vulvovaginitis Unspecified 11/22/2010 DANIELA FINNEY, ALAN N 616.10 Vaginitis Vulvovaginitis Unspecified 11/22/2010 JASON FINNEY, ZAYRA Shea 616.10 Vaginitis Vulvovaginitis Unspecified 11/22/2010 DANIELA FINNEY, ALAN N 616.10 Vaginitis Vulvovaginitis Unspecified 11/22/2010 GILBERTO ROPER APRN A 616.10 Vaginitis Vulvovaginitis Unspecified 11/22/2010 DERICK [...] HORNE APRN V04.81 Flu Shot 12/05/2010 JUDSON CLEANER AND PRESSER, GILBERTO A V04.81 Flu Shot 12/05/2010 JUDSON CLEANER AND PRESSER, GILBERTO A V04.81 Flu Shot 12/05/2010 V04.81 Flu Shot 12/05/2010 JUDSON CLEANER AND PRESSER, GILBERTO A V04.81 Flu Shot 12/05/2010 ZEHRA MENDOZA APRN, SILVA N V04.81 Flu Shot 12/05/2010 OZZIE GRADY, MARLIN S V04.81 Flu Shot 12/05/2010 JUDSON CLEANER AND PRESSER, GILBERTO A V04.81 Flu Shot 12/05/2010 PORRAS [...] ZAYRA Shea V04.81 Flu Shot 12/05/2010 JUDSON HERNÁNDEZN, GILBERTO A V04.81 Flu Shot 12/05/2010 DANIELA FINNEY, ALAN N V04.81 Flu Shot 12/05/2010 DANIELA FINNEY, ALAN N V04.81 Flu Shot 12/05/2010 JASON FINNEY, ZAYRA Shea V04.81 Flu Shot 12/05/2010 DANIELA FINNEY, ALAN N V04.81 Flu Shot 12/05/2010 JUDSON HERNÁNDEZN, GILBERTO A V04.81 Flu Shot 12/05/2010 PORRAS DO, DERICK K V04.81 Flu Shot 12/05/2010 PORRAS DO, DERICK K V04.81 Flu Shot 12/05/2010 OTILIA GRADY, JAMIA Taylor V04.81 Flu Shot 01/02/2011 PORRAS DO, DERICK K 785.2 UNDIAGNOSED CARDIAC MURMURS 01/02/2011 CHIQUITA CHARLESHOSEAA K 785.2 UNDIAGNOSED CARDIAC MURMURS 01/02/2011 785.2 UNDIAGNOSED CARDIAC MURMURS 01/02/2011 CHIQUITA CHARLESDERICK K 785.2 UNDIAGNOSED CARDIAC MURMURS 01/02/2011 785.2 UNDIAGNOSED CARDIAC MURMURS 01/02/2011 785.2 UNDIAGNOSED CARDIAC MURMURS 01/02/2011 785.2 UNDIAGNOSED CARDIAC MURMURS 01/02/2011 CHIQUITA DERICK CHARLES K 785.2 UNDIAGNOSED CARDIAC MURMURS [...] MURMURS 01/02/2011 785.2 UNDIAGNOSED CARDIAC MURMURS 01/02/2011 CHIQUITA DERICK CHARLES K 785.2 UNDIAGNOSED CARDIAC MURMURS 01/02/2011 JUDSON CLEANER AND PRESSER, GILBERTO A 785.2 UNDIAGNOSED CARDIAC MURMURS 01/02/2011 BRISEIDA HORNE APRNA S 785.2 UNDIAGNOSED CARDIAC MURMURS 01/02/2011 JUDSON CLEANER AND PRESSER, GILBERTO A 785.2 UNDIAGNOSED CARDIAC MURMURS 01/02/2011 JUDSON CLEANER AND PRESSER, GILBERTO A 785.2 UNDIAGNOSED CARDIAC MURMURS 01/02/2011 785.2 UNDIAGNOSED CARDIAC MURMURS 01/02/2011 JUDSON CLEANER AND PRESSER, GILBERTO A 785.2 UNDIAGNOSED CARDIAC MURMURS 01/02/2011 ZEHRA MENDOZA CLEANER AND PRESSERSILVA Deshpande N 785.2 UNDIAGNOSED CARDIAC MURMURS 01/02/2011 RAMEZ HORNE APRNNDA S 785.2 UNDIAGNOSED CARDIAC MURMURS 01/02/2011 JUDSON CLEANER AND PRESSER, GILBERTO A 785.2 UNDIAGNOSED CARDIAC MURMURS 01/02/2011 PORRAS HOSEA CHARLESA K 785.2 UNDIAGNOSED CARDIAC MURMURS 01/02/2011 PORRAS DO, DERICK K 785.2 UNDIAGNOSED CARDIAC MURMURS 01/02/2011 ZAYRA GOMEZ MD 785.2 UNDIAGNOSED CARDIAC MURMURS 01/02/2011 ZAYRA GOMEZ MD 785.2 UNDIAGNOSED CARDIAC MURMURS 01/02/2011 OZZIEMARLIN ROSALES APRN S 785.2 UNDIAGNOSED CARDIAC MURMURS 01/02/2011 ZAYRA GOMEZ MD 785.2 UNDIAGNOSED CARDIAC MURMURS 01/02/2011 ZAYRA GOMEZ MD 785.2 UNDIAGNOSED CARDIAC MURMURS 01/02/2011 ZAYRA GOMEZ MD 785.2 UNDIAGNOSED CARDIAC MURMURS 01/02/2011 BENITEZ SKINNER APRN 785.2 UNDIAGNOSED CARDIAC MURMURS 01/02/2011 ZAYRA GOMEZ MD 785.2 UNDIAGNOSED CARDIAC MURMURS 01/02/2011 JUDSON APRN, GILBERTO A 785.2 UNDIAGNOSED CARDIAC MURMURS 01/02/2011 ALAN SUAREZ MD N 785.2 UNDIAGNOSED CARDIAC MURMURS 01/02/2011 ALAN SUAREZ MD N 785.2 UNDIAGNOSED CARDIAC MURMURS 01/02/2011 ZAYRA GOMEZ MD 785.2 UNDIAGNOSED CARDIAC MURMURS 01/02/2011 ALAN SUAREZ MD N 785.2 UNDIAGNOSED CARDIAC MURMURS 01/02/2011 JUDSONCharlee GRADY GILBERTO A 785.2 UNDIAGNOSED CARDIAC MURMURS 01/02/2011 PORRAS DOHOSEAA K 785.2 UNDIAGNOSED CARDIAC MURMURS 01/02/2011 PORRAS DOHOSEAA K 785.2 UNDIAGNOSED CARDIAC MURMURS 01/02/2011 JAMIA BINGHAM APRN 785.2 UNDIAGNOSED CARDIAC MURMURS 01/16/2011 DERICK PORRAS DO K 692.9 Dermatitis Contact Unspecified 01/16/2011 HOSEA PORRAS DOA K 692.9 Dermatitis Contact Unspecified 01/16/2011 692.9 [...] K 692.9 Dermatitis Contact Unspecified 01/16/2011 JUDSON CLEANER AND PRESSER, GILBERTO A 692.9 Dermatitis Contact Unspecified 01/16/2011 BRISEIDA HORNE APRNA S 692.9 Dermatitis Contact Unspecified 01/16/2011 JUDSON CLEANER AND PRESSER, GILBERTO A 692.9 Dermatitis Contact Unspecified 01/16/2011 JUDSON CLEANER AND PRESSER, GILBERTO A 692.9 Dermatitis Contact Unspecified 01/16/2011 692.9 Dermatitis Contact Unspecified 01/16/2011 JUDSON CLEANER AND PRESSER, GILBERTO A 692.9 Dermatitis Contact Unspecified 01/16/2011 ZEHRA MENDOZA CLEANER AND PRESSER, SILVA N 692.9 Dermatitis Contact Unspecified 01/16/2011 OZZIE GRADY MARLIN S 692.9 Dermatitis Contact Unspecified 01/16/2011 JUDSON CLEANER AND PRESSER, GILBERTO A 692.9 Dermatitis Contact Unspecified 01/16/2011 PORRAS DO, DERICK K 692.9 Dermatitis Contact Unspecified 01/16/2011 PORRAS DO, DERICK K 692.9 Dermatitis Contact Unspecified 01/16/2011 JASON FINNEY, ZAYRA Shea 692.9 Dermatitis Contact Unspecified 01/16/2011 JASON FINNEY, ZAYRA Shea 692.9 Dermatitis Contact Unspecified 01/16/2011 MARLIN HORNE APRN 692.9 Dermatitis Contact Unspecified 01/16/2011 JASON FINNEY, ZAYRA Shea 692.9 Dermatitis Contact Unspecified 01/16/2011 ZYARA GOMEZ MD 692.9 Dermatitis Contact Unspecified 01/16/2011 ZAYRA GOMEZ MD 692.9 Dermatitis Contact Unspecified 01/16/2011 BENITEZ SKINNER APRN 692.9 Dermatitis Contact Unspecified 01/16/2011 ZAYRA GOMEZ MD 692.9 Dermatitis Contact Unspecified 01/16/2011 GILBERTO ROPER APRN A 692.9 Dermatitis Contact Unspecified 01/16/2011 DANIELA FINNEY, ALAN N 692.9 Dermatitis Contact Unspecified 01/16/2011 ALAN SUAREZ MD N 692.9 Dermatitis Contact Unspecified 01/16/2011 ZAYRA GOMEZ MD 692.9 Dermatitis Contact Unspecified 01/16/2011 ALAN SUAREZ MD N 692.9 Dermatitis Contact Unspecified 01/16/2011 GILBERTO ROPER APRN A 692.9 Dermatitis Contact Unspecified 01/16/2011 PORRAS DO DERICK K 692.9 Dermatitis Contact Unspecified 01/16/2011 PORRAS DO, DERICK K 692.9 Dermatitis Contact Unspecified 01/16/2011 JAMIA BINGHAM APRN 692.9 Dermatitis Contact Unspecified 04/27/2011 PORRAS DO, DERICK K 599.0 Urinary [...] Site Not Specified 04/27/2011 GILBERTO ROPER APRN A 599.0 Urinary Tract Infection Site Not [...] 791.5 Glycosuria 05/01/2011 791.5 Glycosuria 05/01/2011 PORRAS DO DERICK K 791.5 Glycosuria 05/01/2011 JUDSON CLEANER AND PRESSER, GILBERTO A 791.5 Glycosuria 05/01/2011 OZZIEROMAINE GRADY, MARLIN S 791.5 Glycosuria 05/01/2011 JUDSON CLEANER AND PRESSER, GILBERTO A 791.5 Glycosuria 05/01/2011 JUDSON GRADY GILBERTO A 791.5 Glycosuria 05/01/2011 791.5 Glycosuria 05/01/2011 JUDSON GRADY GILBERTO A 791.5 Glycosuria 05/01/2011 ZEHRA MENDOZA APRNSILVA Charlee 791.5 Glycosuria 05/01/2011 OZZIE GRADY MARLIN S 791.5 Glycosuria 05/01/2011 JUDSON GRADY GILBERTO A 791.5 Glycosuria 05/01/2011 HOSEA PORRAS DOA K 791.5 Glycosuria 05/01/2011 PORRAS DO DERICK K 791.5 Glycosuria 05/01/2011 ZAYRA GOMEZ MD 791.5 Glycosuria 05/01/2011 ZAYRA GOMEZ MD 791.5 Glycosuria 05/01/2011 BRISEIDA HORNE APRNA S 791.5 Glycosuria 05/01/2011 ZAYRA GOMEZ MD 791.5 Glycosuria 05/01/2011 ZAYRA GOMEZ MD 791.5 Glycosuria 05/01/2011 ZAYRA GOMEZ MD 791.5 Glycosuria 05/01/2011 BENITEZ SKINNER APRN 791.5 Glycosuria 05/01/2011 ZAYRA GOMEZ MD 791.5 Glycosuria 05/01/2011 JUDSON GRADY GILBERTO A 791.5 Glycosuria 05/01/2011 DANIELA FINNEY, ALAN Deshpande 791.5 Glycosuria 05/01/2011 DANIELA FINNEY, ALAN Deshpande 791.5 Glycosuria 05/01/2011 JASON FINNEY, ZAYRA Shea 791.5 Glycosuria 05/01/2011 ALAN SUAREZ MD 791.5 Glycosuria 05/01/2011 GILBERTO ROPER APRN A 791.5 Glycosuria 05/01/2011 DERICK PORRAS DO 791.5 Glycosuria 05/01/2011 DERICK PORRAS DO 791.5 Glycosuria 05/01/2011 OTILIA GRADY JAMIA Claudia 791.5 Glycosuria 05/18/2011 Ot 648.93 05/18/2011 Ot [...] PORRAS DO V25.01 Oral Contraceptives 08/07/2011 JUDSON CLEANER AND PRESSER, GILBERTO A V24.2 Visit For: Exam 08/07/2011 JUDSON CLEANER AND PRESSER, GILBERTO A V25.01 Oral Contraceptives 08/07/2011 BRISEIDA HORNE APRNA S V24.2 Visit For: Exam 08/07/2011 BRISEIDA HORNE APRNA S V25.01 Oral Contraceptives 08/07/2011 JUDSONCharlee GRADY GILBERTO A V24.2 Visit For: Exam 08/07/2011 JUDSON HERNÁNDEZN, GILBERTO A V25.01 Oral Contraceptives 08/07/2011 JUDSON APRN, GILBERTO A V24.2 Visit For: Exam 08/07/2011 JUDSON GRADY, GILBERTO A V25.01 Oral Contraceptives 08/07/2011 V24.2 Visit For: Exam 08/07/2011 V25.01 Oral Contraceptives 08/07/2011 JUDSON HERNÁNDEZN, GILBERTO A V24.2 Visit For: Exam 08/07/2011 JUDSON HERNÁNDEZN, GILBERTO A V25.01 Oral Contraceptives 08/07/2011 SHAHID CASHERO CLEANER AND PRESSER, SILVA N V24.2 Visit For: Exam 08/07/2011 SHAHID CASHERO CLEANER AND PRESSER, SILVA N V25.01 Oral Contraceptives 08/07/2011 RAMEZ HORNE APRNNDA S V24.2 Visit For: Exam 08/07/2011 OZZIE GRADY MARLIN S V25.01 Oral Contraceptives 08/07/2011 JUDSON CLEANER AND PRESSER, GILBERTO A V24.2 Visit For: Exam 08/07/2011 [...] HORNE APRNNDA S V25.01 Oral Contraceptives 08/07/2011 ZAYRA GOMEZ [...] APRN A V24.2 Visit For: Exam 08/07/2011 GILBERTO ROPER APRN A V25.01 Oral Contraceptives 08/07/2011 ALAN SUAREZ [...] SUAREZ MD N V25.01 Oral Contraceptives 08/07/2011 GILBERTO ROPER APRN A V24.2 Visit For: Exam 08/07/2011 JUDSON GRADY GILBERTO A V25.01 Oral Contraceptives 08/07/2011 CHIQUITA CHARLES DERICK K V24.2 Visit For: Exam 08/07/2011 PORRAS DO DERICK K V25.01 Oral Contraceptives 08/07/2011 PORRAS DO DERICK K V24.2 Visit For: Exam 08/07/2011 PORRAS DO DERICK K V25.01 Oral Contraceptives 08/07/2011 JAMIA BINGHAM APRN V24.2 Visit For: Exam 08/07/2011 OTILIA GRADYJAMIA V25.01 Oral Contraceptives 01/16/2012 DERICK PORRAS DO [...] Upper Respiratory Infections Of Unspecified Site 01/16/2012 SHAHID CRISTINASILVA VALDEZ APRN N 465.9 Acute Upper Respiratory Infections Of Unspecified Site 01/16/2012 OZZIE GRADY MARLIN S 465.9 Acute Upper Respiratory Infections [...] Upper Respiratory Infections Of Unspecified Site 01/16/2012 ZAYAR GOMEZ MD 465.9 Acute Upper Respiratory Infections [...] Bleeding From Female Genital Tract 02/08/2012 ZAYRA GOEMZ MD 626.8 Other Disorders Of Menstruation And [...] DOA K 626.4 Irregular Menstrual Cycle 02/10/2012 DERICK PORRAS DO K 789.00 Abdominal Pain Unspecified Site 02/10/2012 [...] CHARLES 626.4 Irregular Menstrual Cycle 02/10/2012 CHIQUITA DERICK CHARLES 789.00 Abdominal Pain Unspecified Site 02/10/2012 626.4 [...] 789.00 Abdominal Pain Unspecified Site 02/10/2012 OZZIE GRADY, MARLIN S 626.4 Irregular Menstrual Cycle 02/10/2012 OZZIE GRADY, MARLIN S 789.00 Abdominal Pain Unspecified Site 02/10/2012 JUDSON GRADY, GILBERTO A 626.4 Irregular Menstrual Cycle 02/10/2012 JUDSON GRADY, GILBERTO A 789.00 Abdominal Pain Unspecified Site 02/10/2012 JUDSON GRADY, GILBERTO A 626.4 Irregular Menstrual Cycle 02/10/2012 JUDSON GRADY, GILBERTO A 789.00 Abdominal Pain Unspecified Site 02/10/2012 626.4 Irregular Menstrual Cycle 02/10/2012 789.00 Abdominal Pain Unspecified Site 02/10/2012 JUDSONTRENT GRADY, GILBERTO A 626.4 Irregular Menstrual Cycle 02/10/2012 JUDSONTRENT GRADY, GILBERTO A 789.00 Abdominal Pain Unspecified Site 02/10/2012 SILVA VALENZUELA APRN N 626.4 Irregular Menstrual Cycle 02/10/2012 SHAHIDBEVERLY ABARCA APRNCY N 789.00 Abdominal Pain Unspecified Site 02/10/2012 OZZIE GRADY, MARLIN S 626.4 Irregular Menstrual Cycle 02/10/2012 OZZIE GRADY MARLIN S 789.00 Abdominal Pain Unspecified Site 02/10/2012 JUDSONTRENT GRADY, GILBERTO A 626.4 Irregular Menstrual Cycle 02/10/2012 JUDSON GRADY, GILBERTO A 789.00 Abdominal Pain Unspecified Site 02/10/2012 PORRAS DO, DERICK K 626.4 Irregular Menstrual Cycle 02/10/2012 PORRAS DO, DERICK K 789.00 Abdominal Pain Unspecified Site 02/10/2012 PORRAS DO, DERICK K 626.4 Irregular Menstrual Cycle 02/10/2012 DERICK PORRAS DO K 789.00 Abdominal Pain Unspecified Site 02/10/2012 [...] Irregular Menstrual Cycle 02/10/2012 GILBERTO ROPER APRN 789.00 Abdominal Pain Unspecified Site 02/10/2012 ALAN SUAREZ MD 626.4 Irregular Menstrual Cycle 02/10/2012 ALAN SUAREZ MD 789.00 Abdominal Pain Unspecified Site 02/10/2012 ALAN SUAREZ MD 626.4 Irregular Menstrual Cycle 02/10/2012 ALAN SUAREZ MD 789.00 Abdominal Pain Unspecified Site 02/10/2012 JASON FINNEY, ZAYRA Shea 626.4 Irregular Menstrual Cycle 02/10/2012 ZAYRA GOMEZ MD 789.00 Abdominal Pain Unspecified Site 02/10/2012 ALAN SUAREZ MD N 626.4 Irregular Menstrual Cycle 02/10/2012 ALAN SUAREZ MD N 789.00 Abdominal Pain Unspecified Site 02/10/2012 JUDSON CLEANER AND PRESSER, GILBERTO A 626.4 Irregular Menstrual Cycle 02/10/2012 JUDSON CLEANER AND PRESSER, GILBERTO A 789.00 Abdominal Pain Unspecified Site 02/10/2012 PORRAS DO, DERICK K 626.4 Irregular Menstrual Cycle 02/10/2012 PORRAS DO, DERICK K 789.00 Abdominal Pain Unspecified Site 02/10/2012 PORRAS DO, DERICK K 626.4 Irregular Menstrual Cycle 02/10/2012 PORRAS DO, DERICK K 789.00 Abdominal Pain Unspecified Site 02/10/2012 MADL CLEANER AND PRESSER, JAMIA L 626.4 Irregular Menstrual Cycle 02/10/2012 MADL CLEANER AND PRESSER, JAMIA L 789.00 Abdominal Pain Unspecified Site [...] K 724.2 BACK PAIN, LOWER 02/25/2012 JUDSON CLEANER AND PRESSER, GILBERTO A 724.2 BACK PAIN, LOWER 02/25/2012 MARLIN HORNE APRN S 724.2 BACK PAIN, LOWER 02/25/2012 JUDSON CLEANER AND PRESSER, GILBERTO A 724.2 BACK PAIN, LOWER 02/25/2012 JUDSON CLEANER AND PRESSER, GILBERTO A 724.2 BACK PAIN, LOWER 02/25/2012 724.2 BACK PAIN, LOWER 02/25/2012 JUDSON CLEANER AND PRESSER, GILBERTO A 724.2 BACK PAIN, LOWER 02/25/2012 ZEHRA MENDOZA CLEANER AND PRESSER, SILVA N 724.2 BACK PAIN, LOWER 02/25/2012 BRISEIDA HORNE APRNA S 724.2 BACK PAIN, LOWER 02/25/2012 JUDSON CLEANER AND PRESSER, GILBERTO A 724.2 BACK PAIN, LOWER 02/25/2012 PORRAS DO, DERICK K 724.2 BACK PAIN, LOWER 02/25/2012 PORRAS DO, DERICK K 724.2 BACK PAIN, LOWER 02/25/2012 JASON FINNEY, ZAYRA Shea 724.2 BACK PAIN, LOWER 02/25/2012 JASON FINNEY, ZAYRA Shea 724.2 BACK PAIN, LOWER 02/25/2012 MARLIN HORNE APRN S 724.2 BACK PAIN, LOWER 02/25/2012 ZAYRA GOMEZ MD 724.2 BACK PAIN, LOWER 02/25/2012 ZAYRA GOMEZ MD 724.2 BACK PAIN, LOWER 02/25/2012 ZAYRA GOMEZ MD 724.2 BACK PAIN, LOWER 02/25/2012 BENITEZ SKINNER APRN 724.2 BACK PAIN, LOWER 02/25/2012 ZAYRA GOMEZ MD 724.2 BACK PAIN, LOWER 02/25/2012 JUDSON CLEANER AND PRESSER, GILBERTO A 724.2 BACK PAIN, LOWER 02/25/2012 DANIELA MD, ALAN N 724.2 BACK PAIN, LOWER 02/25/2012 DANIELA FINNEY, ALAN Deshpande 724.2 BACK PAIN, LOWER 02/25/2012 JASON FINNEY, ZAYRA Shea 724.2 BACK PAIN, LOWER 02/25/2012 DANIELA FINNEY, ALAN N 724.2 BACK PAIN, LOWER 02/25/2012 JUDSONTRENT GRADY, GILBERTO A 724.2 BACK PAIN, LOWER 02/25/2012 PORRAS DO, DERICK K 724.2 BACK PAIN, LOWER 02/25/2012 PORRAS DO, DERICK K 724.2 BACK PAIN, LOWER 02/25/2012 MADL CLEANER AND PRESSER, JAMIA Taylor 724.2 BACK PAIN, LOWER 03/02/2012 [...] 720.2 SACROILIITIS NOT ELSEWHERE CLASSIFIED 03/02/2012 PORRAS DO, DERICK K 720.2 SACROILIITIS NOT ELSEWHERE CLASSIFIED 03/02/2012 JUDSON CLEANER AND PRESSER, GILBERTO A 720.2 SACROILIITIS NOT ELSEWHERE CLASSIFIED 03/02/2012 OZZIE GRADY, MARLIN S 720.2 SACROILIITIS NOT ELSEWHERE CLASSIFIED 03/02/2012 JUDSON CLEANER AND PRESSER, GILBERTO A 720.2 SACROILIITIS NOT ELSEWHERE CLASSIFIED 03/02/2012 JUDSON CLEANER AND PRESSER, GILBERTO A 720.2 SACROILIITIS NOT ELSEWHERE CLASSIFIED 03/02/2012 720.2 SACROILIITIS NOT ELSEWHERE CLASSIFIED 03/02/2012 JUDSON CLEANER AND PRESSER, GILBERTO A 720.2 SACROILIITIS NOT ELSEWHERE CLASSIFIED 03/02/2012 SILVA VALENZUELA APRN N 720.2 SACROILIITIS NOT ELSEWHERE CLASSIFIED 03/02/2012 OZZIE CLEANER AND PRESSER, MARLIN S 720.2 SACROILIITIS NOT ELSEWHERE CLASSIFIED 03/02/2012 JUDSON CLEANER AND PRESSER, GILBERTO A 720.2 SACROILIITIS NOT ELSEWHERE CLASSIFIED 03/02/2012 PORRAS DO, DERICK K 720.2 SACROILIITIS NOT ELSEWHERE CLASSIFIED 03/02/2012 PORRAS DO DERICK K 720.2 SACROILIITIS NOT ELSEWHERE CLASSIFIED 03/02/2012 ZAYRA GOMEZ MD 720.2 SACROILIITIS NOT ELSEWHERE CLASSIFIED 03/02/2012 ZAYRA GOMEZ MD 720.2 SACROILIITIS NOT ELSEWHERE CLASSIFIED 03/02/2012 OZZIE GRADY MARLIN S 720.2 SACROILIITIS NOT ELSEWHERE CLASSIFIED 03/02/2012 ZAYRA GOMEZ MD 720.2 SACROILIITIS NOT ELSEWHERE CLASSIFIED 03/02/2012 ZAYRA GOMEZ MD 720.2 SACROILIITIS NOT ELSEWHERE CLASSIFIED 03/02/2012 ZAYRA GOMEZ MD 720.2 SACROILIITIS NOT ELSEWHERE CLASSIFIED 03/02/2012 BENITEZ SKINNER APRN 720.2 SACROILIITIS NOT ELSEWHERE CLASSIFIED 03/02/2012 ZAYRA GOMEZ MD 720.2 SACROILIITIS NOT ELSEWHERE CLASSIFIED 03/02/2012 JUDSON CLEANER AND PRESSER, GILBERTO A 720.2 SACROILIITIS NOT ELSEWHERE CLASSIFIED 03/02/2012 ALAN SUAREZ MD 720.2 SACROILIITIS NOT ELSEWHERE CLASSIFIED 03/02/2012 ALAN SUAREZ MD 720.2 SACROILIITIS NOT ELSEWHERE CLASSIFIED 03/02/2012 JASON FINNEY, ZAYRA Shea 720.2 SACROILIITIS NOT ELSEWHERE CLASSIFIED 03/02/2012 ALAN [...] ROPER APRN 625.6 STRESS INCONTINENCE FEMALE 04/06/2012 GILBERTO ROPER APRN A 625.6 STRESS INCONTINENCE FEMALE 04/06/2012 625.6 STRESS INCONTINENCE FEMALE 04/06/2012 GILBERTO ROPER APRN A 625.6 STRESS INCONTINENCE FEMALE 04/06/2012 SILVA VALENZUELA APRN 625.6 STRESS INCONTINENCE FEMALE 04/06/2012 MARLIN HORNE APRN S 625.6 STRESS INCONTINENCE FEMALE 04/06/2012 JUDSON GRADY, GILBERTO A 625.6 STRESS INCONTINENCE FEMALE 04/06/2012 DERICK PORRAS DO K 625.6 STRESS INCONTINENCE FEMALE 04/06/2012 DERICK PORRAS DO K 625.6 STRESS INCONTINENCE FEMALE 04/06/2012 ZAYRA GOMEZ MD 625.6 STRESS INCONTINENCE FEMALE 04/06/2012 ZAYRA GOMEZ MD 625.6 STRESS INCONTINENCE FEMALE 04/06/2012 MARLIN HORNE APRN S 625.6 STRESS INCONTINENCE FEMALE 04/06/2012 ZAYRA GOMEZ MD 625.6 STRESS INCONTINENCE FEMALE 04/06/2012 ZAYRA GOMEZ MD 625.6 STRESS INCONTINENCE FEMALE 04/06/2012 ZAYRA GOMEZ MD 625.6 STRESS INCONTINENCE FEMALE 04/06/2012 BENITEZ SKINNER APRN 625.6 STRESS INCONTINENCE FEMALE 04/06/2012 ZAYRA GOMEZ MD 625.6 STRESS INCONTINENCE FEMALE 04/06/2012 IGLBERTO ROPER APRN A 625.6 STRESS INCONTINENCE FEMALE 04/06/2012 ALAN SUAREZ MD 625.6 STRESS INCONTINENCE FEMALE 04/06/2012 ALAN SUAREZ MD 625.6 STRESS INCONTINENCE FEMALE 04/06/2012 ZAYRA GOMEZ MD 625.6 STRESS INCONTINENCE FEMALE 04/06/2012 ALAN SUAREZ MD 625.6 STRESS INCONTINENCE FEMALE 04/06/2012 JUDSON GRADY, GILBERTO A 625.6 STRESS INCONTINENCE FEMALE 04/06/2012 DERICK [...] DERICK K V72.42 Test Positive Result 07/08/2012 JUDSON CLEANER AND PRESSER, GILBERTO A V72.42 Test Positive Result 07/08/2012 OZZIE GRADY, MARLIN S V72.42 Test Positive Result 07/08/2012 JUDSONTRENT GRADY, GILBERTO A V72.42 Test Positive Result 07/08/2012 JUDSON GRADY GILBERTO A V72.42 Test Positive Result 07/08/2012 V72.42 Test Positive Result 07/08/2012 JUDSON CLEANER AND PRESSER, GILBERTO A V72.42 Test Positive Result 07/08/2012 SILVA VALENZUELA APRN N V72.42 Test Positive Result 07/08/2012 OZZIE CLEANER AND PRESSER, MARLIN S V72.42 Test Positive Result 07/08/2012 JUDSON CLEANER AND PRESSER, GILBERTO A V72.42 Test Positive Result 07/08/2012 [...] K V72.42 Test Positive Result 07/08/2012 PORRAS DO DERICK K V72.42 Test Positive Result 07/08/2012 [...] K V22.1 , NORMAL OTHER 07/28/2012 JUDSON CLEANER AND PRESSER, GILBERTO A V22.1 , NORMAL OTHER 07/28/2012 OZZIE CLEANER AND PRESSER, MARLIN S V22.1 , NORMAL OTHER 07/28/2012 JUDSON CLEANER AND PRESSER, GILBERTO A V22.1 , NORMAL OTHER 07/28/2012 JUDSON CLEANER AND PRESSER, GILBERTO A V22.1 , NORMAL OTHER 07/28/2012 V22.1 , NORMAL OTHER 07/28/2012 JUDSON CLEANER AND PRESSER, GILBERTO A V22.1 , NORMAL OTHER 07/28/2012 SHAHID SACRAMENTOCOURTNEY CLEANER AND PRESSER, SILVA N V22.1 , NORMAL OTHER 07/28/2012 OZZIE CLEANER AND PRESSER, MARLIN S V22.1 , NORMAL OTHER 07/28/2012 JUDSON CLEANER AND PRESSER, GILBERTO A V22.1 , NORMAL OTHER 07/28/2012 PORRAS DO, DERICK K V22.1 , NORMAL OTHER 07/28/2012 PORRAS DO, DERICK K V22.1 , NORMAL OTHER 07/28/2012 ZAYRA GOMEZ MD V22.1 , NORMAL OTHER 07/28/2012 ZAYRA GOMEZ MD V22.1 , NORMAL OTHER 07/28/2012 OZZIE CLEANER AND PRESSER, MARLIN S V22.1 , NORMAL OTHER 07/28/2012 ZAYRA GOMEZ MD V22.1 , NORMAL OTHER 07/28/2012 ZAYRA GOMEZ MD V22.1 , NORMAL OTHER 07/28/2012 ZAYRA GOMEZ MD V22.1 , NORMAL OTHER 07/28/2012 BENITEZ SKINNER APRN V22.1 , NORMAL OTHER 07/28/2012 ZAYRA GOMEZ MD V22.1 , NORMAL OTHER 07/28/2012 GILBERTO ROPER APRN A V22.1 , NORMAL OTHER 07/28/2012 DANIELA FINNEY, ALAN Deshpande V22.1 , NORMAL OTHER 07/28/2012 DANIELA FINNEY, ALAN Deshpande V22.1 , NORMAL OTHER 07/28/2012 ZAYRA GOMEZ MD V22.1 , NORMAL OTHER 07/28/2012 DANIELA FINNEY, ALAN Deshpande V22.1 , NORMAL OTHER 07/28/2012 JUDSON GRADY, GILBERTO A V22.1 , NORMAL OTHER 07/28/2012 DERICK PORRAS DO V22.1 , NORMAL OTHER 07/28/2012 DERICK PORRAS DO V22.1 , NORMAL OTHER 07/28/2012 OTILIA GRADY JAMIA L V22.1 , NORMAL OTHER 07/30/2012 DERICK PORRAS [...] 648.10 COMPL OF - THYROID DYSFUNCTION 07/30/2012 JUDSONTRENT GRADY GILBERTO A 648.10 COMPL OF - THYROID DYSFUNCTION 07/30/2012 JUDSON GRADY GILBERTO A 648.10 COMPL OF - THYROID DYSFUNCTION 07/30/2012 648.10 COMPL OF - THYROID DYSFUNCTION 07/30/2012 JUDSONTRENT GRADY GILBERTO A 648.10 COMPL OF - THYROID DYSFUNCTION 07/30/2012 SILVA VALENZUELA APRN N 648.10 COMPL OF - THYROID DYSFUNCTION 07/30/2012 RAMEZ HORNE APRNNDA S 648.10 COMPL OF - THYROID DYSFUNCTION 07/30/2012 JUDSONTRENT GRADY, GILBERTO A 648.10 COMPL OF - THYROID DYSFUNCTION 07/30/2012 DERICK PORRAS DO K 648.10 COMPL OF - THYROID DYSFUNCTION 07/30/2012 DERICK PORRAS DO K 648.10 COMPL OF - THYROID DYSFUNCTION 07/30/2012 ZAYRA GOMEZ MD 648.10 COMPL OF - THYROID DYSFUNCTION 07/30/2012 ZAYRA GOMEZ MD 648.10 COMPL OF - THYROID DYSFUNCTION 07/30/2012 MARLIN HORNE APRN S 648.10 COMPL OF - [...] - THYROID DYSFUNCTION 07/30/2012 ALAN SUAREZ MD 648.10 COMPL OF - THYROID DYSFUNCTION [...] PORRAS DOA K 380.4 CERUMEN IMPACTION 08/20/2012 HOSEA PORRAS DOA K 784.91 Postnasal Drip 08/20/2012 380.4 CERUMEN [...] DERICK K 784.91 Postnasal Drip 08/20/2012 JUDSON CLEANER AND PRESSER, GILBERTO A 380.4 Cerumen Impaction 08/20/2012 JUDSON CLEANER AND PRESSER, GILBERTO A 784.91 Postnasal Drip 08/20/2012 OZZIE CLEANER AND PRESSERRAMEZ DeshpandeNDA S 380.4 Cerumen Impaction 08/20/2012 RAMEZ HORNE APRNNDA S 784.91 Postnasal Drip 08/20/2012 JUDSON CLEANER AND PRESSER, GILBERTO A 380.4 Cerumen Impaction 08/20/2012 JUDSON CLEANER AND PRESSER, GILBERTO A 784.91 Postnasal Drip 08/20/2012 JUDSON CLEANER AND PRESSER, GILBERTO A 380.4 Cerumen Impaction 08/20/2012 JUDSON CLEANER AND PRESSER, GILBERTO A 784.91 Postnasal Drip 08/20/2012 380.4 Cerumen Impaction 08/20/2012 784.91 Postnasal Drip 08/20/2012 JUDSON CLEANER AND PRESSER, GILBERTO A 380.4 Cerumen Impaction 08/20/2012 JUDSON CLEANER AND PRESSER, GILBERTO A 784.91 Postnasal Drip 08/20/2012 ZEHRA MENDOZA CLEANER AND PRESSER, SILVA N 380.4 Cerumen Impaction 08/20/2012 ZEHRA MENDOZA CLEANER AND PRESSER, SILVA N 784.91 Postnasal Drip 08/20/2012 OZZIE CLEANER AND PRESSER, MARLIN S 380.4 Cerumen Impaction 08/20/2012 OZZIE CLEANER AND PRESSER, MARLIN S 784.91 Postnasal Drip 08/20/2012 JUDSON CLEANER AND PRESSER, GILBERTO A 380.4 Cerumen Impaction 08/20/2012 JUDSON CLEANER AND PRESSER, GILBERTO A 784.91 Postnasal Drip 08/20/2012 PORRAS [...] GOMEZ MD 784.91 Postnasal Drip 08/20/2012 OZZIE CLEANER AND PRESSER, MARLIN S 380.4 Cerumen Impaction 08/20/2012 OZZIE CLEANER AND PRESSER, MARLIN S 784.91 Postnasal Drip 08/20/2012 ZAYRA [...] ZAYRA GOMEZ MD 784.91 Postnasal Drip 08/20/2012 OSIEL ROPER APRNIDI A 380.4 Cerumen Impaction 08/20/2012 JUDSON GRADY GILBERTO A 784.91 Postnasal Drip 08/20/2012 DANIELA FINNEY, ALAN N 380.4 Cerumen Impaction 08/20/2012 DANIELA FINNEY, ALAN N 784.91 Postnasal Drip 08/20/2012 DANIELA FINNEY, ALAN N 380.4 Cerumen Impaction 08/20/2012 DANIELA FINNEY, ALAN N 784.91 Postnasal Drip 08/20/2012 ZAYRA GOMEZ MD 380.4 Cerumen Impaction 08/20/2012 ZAYRA GOMEZ MD 784.91 Postnasal Drip 08/20/2012 DANIELA FINNEY, ALAN N 380.4 Cerumen Impaction 08/20/2012 ALAN SUAREZ MD N 784.91 Postnasal Drip 08/20/2012 JUDSON GRADY GILBERTO A 380.4 Cerumen Impaction 08/20/2012 JUDSON GRADY GILBERTO A 784.91 Postnasal Drip 08/20/2012 DERICK PORRAS DO K 380.4 Cerumen Impaction 08/20/2012 HOSEA PORRAS DOA K 784.91 Postnasal Drip 08/20/2012 DERICK PORRAS DO K 380.4 Cerumen Impaction 08/20/2012 DERICK PORRAS DO K 784.91 Postnasal Drip 08/20/2012 MADL CLEANER AND PRESSER, JAMIA L 380.4 Cerumen Impaction 08/20/2012 MADL CLEANER AND PRESSER, JAMIA L 784.91 Postnasal Drip 08/28/2012 DERICK PORRAS DO K V04.81 FLU DX (3 YRS AND ABOVE, IM) 08/28/2012 V04.81 FLU DX (3 YRS AND ABOVE, IM) 08/28/2012 DERICK PORRAS DO K V04.81 FLU DX (3 YRS AND ABOVE, IM) 08/28/2012 V04.81 FLU DX (3 YRS AND ABOVE, IM) 08/28/2012 V04.81 FLU DX (3 YRS AND ABOVE, IM) 08/28/2012 V04.81 FLU DX (3 YRS AND ABOVE, IM) 08/28/2012 CHIQUITA CHARLES DERICK Saran V04.81 FLU DX (3 YRS AND ABOVE, [...] (3 YRS AND ABOVE, IM) 08/28/2012 JUDSON CLEANER AND PRESSER, GILBERTO A V04.81 FLU DX (3 YRS AND ABOVE, IM) 08/28/2012 BRISEIDA HORNE APRNA S V04.81 FLU DX (3 YRS AND ABOVE, IM) 08/28/2012 JUDSON CLEANER AND PRESSER, GILBERTO A V04.81 FLU DX (3 YRS AND ABOVE, IM) 08/28/2012 JUDSON CLEANER AND PRESSER, GILBERTO A V04.81 FLU DX (3 YRS AND ABOVE, IM) 08/28/2012 V04.81 FLU DX (3 YRS AND ABOVE, IM) 08/28/2012 JUDSON CLEANER AND PRESSER, GILBERTO A V04.81 FLU DX (3 YRS AND ABOVE, IM) 08/28/2012 ZEHRA MENDOZA APRN, SILVA N V04.81 FLU DX (3 YRS AND ABOVE, IM) 08/28/2012 MARLIN HORNE APRN S V04.81 FLU DX (3 YRS AND ABOVE, IM) 08/28/2012 JUDSON CLEANER AND PRESSER, GILBERTO A V04.81 FLU DX (3 YRS AND ABOVE, IM) 08/28/2012 PORRAS DO, DERICK K V04.81 FLU DX (3 YRS AND ABOVE, IM) 08/28/2012 PORRAS DODERICK K V04.81 FLU DX (3 YRS AND [...] DO 465.9 Upper Respiratory Infection 10/27/2012 JUDSON CLEANER AND PRESSER, GILBERTO A 465.9 Upper Respiratory Infection 10/27/2012 OZZIE CLEANER AND PRESSER, MARLIN S 465.9 Upper Respiratory Infection 10/27/2012 JUDSON CLEANER AND PRESSER, GILBERTO A 465.9 Upper Respiratory Infection 10/27/2012 JUDSON CLEANER AND PRESSER, GILBERTO A 465.9 Upper Respiratory Infection 10/27/2012 465.9 Upper Respiratory Infection 10/27/2012 JUDSON CLEANER AND PRESSER, GILBERTO A 465.9 Upper Respiratory Infection 10/27/2012 [facility] CLEANER AND PRESSER, SILVA N 465.9 Upper Respiratory Infection 10/27/2012 OZZIE CLEANER AND PRESSER, MARLIN S 465.9 Upper Respiratory Infection 10/27/2012 JUDSON CLEANER AND PRESSER, GILBERTO A 465.9 Upper Respiratory Infection 10/27/2012 PORRAS DO, DERICK K 465.9 Upper Respiratory Infection 10/27/2012 PORRAS DO, DERICK K 465.9 Upper Respiratory Infection 10/27/2012 ZAYRA GOMEZ MD 465.9 Upper Respiratory Infection 10/27/2012 ZAYRA GOMEZ MD 465.9 Upper Respiratory Infection 10/27/2012 OZZIE CLEANER AND PRESSER, MARLIN S 465.9 Upper Respiratory Infection 10/27/2012 ZAYRA GOMEZ MD 465.9 Upper Respiratory Infection 10/27/2012 ZAYRA GOMEZ MD 465.9 Upper Respiratory Infection 10/27/2012 ZAYRA GOMEZ MD 465.9 Upper Respiratory Infection 10/27/2012 BENITEZ SKINNER APRN 465.9 Upper Respiratory Infection 10/27/2012 ZAYRA GOMEZ MD 465.9 Upper Respiratory Infection 10/27/2012 JUDSON CLEANER AND PRESSER, GILBERTO A 465.9 Upper Respiratory Infection 10/27/2012 ALAN SUAREZ MD 465.9 Upper Respiratory Infection 10/27/2012 ALAN SUAREZ MD 465.9 Upper Respiratory Infection 10/27/2012 ZAYRA GOMEZ MD 465.9 Upper Respiratory Infection 10/27/2012 ALAN SUAREZ MD 465.9 Upper Respiratory Infection 10/27/2012 JUDSON CLEANER AND PRESSER, GILBERTO A 465.9 Upper Respiratory Infection 10/27/2012 PORRAS DO, DERICK K 465.9 Upper Respiratory Infection 10/27/2012 PORRAS DO, DERICK K 465.9 Upper Respiratory Infection 10/27/2012 OTILIA GRADY JAMIA Claudia 465.9 Upper Respiratory Infection 11/16/2012 DERICK PORRAS DO 616.10 VAGINITIS AND VULVOVAGINITIS UNSPECIFIED 11/16/2012 616.10 [...] 11/16/2012 616.10 Vaginitis And Vulvovaginitis Unspecified 11/16/2012 DERICK PORRAS DO 616.10 Vaginitis And Vulvovaginitis Unspecified 11/16/2012 JUDSON HERNÁNDEZN, GILBERTO A 616.10 Vaginitis And Vulvovaginitis Unspecified 11/16/2012 MARLIN HORNE APRN 616.10 Vaginitis And Vulvovaginitis Unspecified 11/16/2012 JUDSON CLEANER AND PRESSER, GILBERTO A 616.10 Vaginitis And Vulvovaginitis Unspecified 11/16/2012 JUDSON CLEANER AND PRESSER, GIBLERTO A 616.10 Vaginitis And Vulvovaginitis Unspecified 11/16/2012 616.10 Vaginitis And Vulvovaginitis Unspecified 11/16/2012 JUDSON CLEANER AND PRESSER, GILBERTO A 616.10 Vaginitis And Vulvovaginitis Unspecified 11/16/2012 SHAHID CRISTINACOURTNEY GRADY, SILVA N 616.10 Vaginitis And Vulvovaginitis Unspecified 11/16/2012 OZZIE GRADY, MARLIN S 616.10 Vaginitis And Vulvovaginitis Unspecified 11/16/2012 JUDSONTRENT GRADY, GILBERTO A 616.10 Vaginitis And Vulvovaginitis [...] 616.10 Vaginitis And Vulvovaginitis Unspecified 11/16/2012 JUDSON CLEANER AND PRESSER, GILBERTO A 616.10 Vaginitis And Vulvovaginitis Unspecified 11/16/2012 PORRAS DERICK CHARLES K 616.10 Vaginitis And Vulvovaginitis Unspecified 11/16/2012 PORRAS DERICK CHARLES K 616.10 Vaginitis And Vulvovaginitis Unspecified 11/16/2012 JAMIA BINGHAM APRN 616.10 Vaginitis And Vulvovaginitis Unspecified 11/26/2012 380.4 CERUMEN IMPACTION 11/26/2012 380.4 CERUMEN IMPACTION 11/26/2012 380.4 CERUMEN IMPACTION 11/26/2012 380.4 CERUMEN IMPACTION 11/26/2012 380.4 CERUMEN IMPACTION 11/26/2012 380.4 CERUMEN IMPACTION 11/26/2012 380.4 CERUMEN IMPACTION 11/26/2012 380.4 CERUMEN IMPACTION 11/26/2012 380.4 CERUMEN IMPACTION 11/26/2012 380.4 CERUMEN IMPACTION 11/26/2012 380.4 CERUMEN IMPACTION 11/26/2012 380.4 CERUMEN IMPACTION 11/26/2012 380.4 CERUMEN IMPACTION 11/26/2012 DERICK PORRAS DO K 380.4 CERUMEN IMPACTION 11/26/2012 JUDSON CLEANER AND PRESSER, GILBERTO A 380.4 CERUMEN IMPACTION 11/26/2012 BRISEIDA HORNE APRNA S 380.4 CERUMEN IMPACTION 11/26/2012 JUDSON CLEANER AND PRESSER, GILBERTO A 380.4 CERUMEN IMPACTION 11/26/2012 JUDSON CLEANER AND PRESSER, GILBERTO A 380.4 CERUMEN IMPACTION 11/26/2012 380.4 CERUMEN IMPACTION 11/26/2012 JUDSON CLEANER AND PRESSER, GILBERTO A 380.4 CERUMEN IMPACTION 11/26/2012 SILVA VALENZUELA APRN N 380.4 CERUMEN IMPACTION 11/26/2012 BRISEIDA HORNE APRNA S 380.4 CERUMEN IMPACTION 11/26/2012 JUDSON CLEANER AND PRESSER, GILBERTO A 380.4 CERUMEN IMPACTION 11/26/2012 PORRAS [...] FINNEY, ALAN Deshpande 380.4 CERUMEN IMPACTION 11/26/2012 ALAN SUAREZ MD 380.4 CERUMEN IMPACTION 11/26/2012 JASON FINNEY, ZAYRA Shea 380.4 CERUMEN IMPACTION 11/26/2012 ALAN SUAREZ MD N 380.4 CERUMEN IMPACTION 11/26/2012 GILBERTO ROPER APRN A 380.4 CERUMEN IMPACTION 11/26/2012 DERICK PORRAS DO K 380.4 CERUMEN IMPACTION 11/26/2012 DERICK PORRAS DO K 380.4 CERUMEN IMPACTION 11/26/2012 JAMIA BINGHAM [...] DERICK K V06.1 TDAP DX 12/15/2012 JUDSON CLEANER AND PRESSER, GILBERTO A V06.1 TDAP DX 12/15/2012 OZZIE CLEANER AND PRESSER, MARLIN S V06.1 TDAP DX 12/15/2012 JUDSON CLEANER AND PRESSER, GILBERTO A V06.1 TDAP DX 12/15/2012 JUDSON CLEANER AND PRESSER, GILBERTO A V06.1 TDAP DX 12/15/2012 V06.1 TDAP DX 12/15/2012 JUDSON CLEANER AND PRESSER, GILBERTO A V06.1 TDAP DX 12/15/2012 ZEHRA MENDOZA CLEANER AND PRESSER, SILVA N V06.1 TDAP DX 12/15/2012 OZZIE CLEANER AND PRESSER, MARLIN S V06.1 TDAP DX 12/15/2012 JUDSON CLEANER AND PRESSER, GILBERTO A V06.1 TDAP DX 12/15/2012 PORRAS DO, DERICK K V06.1 TDAP DX 12/15/2012 PORRAS DO, DERICK K V06.1 TDAP DX 12/15/2012 JASON FINNEY, ZAYRA Shea V06.1 TDAP DX 12/15/2012 JASON FINNEY, ZAYRA Shea V06.1 TDAP DX 12/15/2012 OZZIE CLEANER AND PRESSER, MARLIN S V06.1 TDAP DX 12/15/2012 JASON FINNEY, ZAYRA Shea V06.1 TDAP DX 12/15/2012 ZAYRA GOMEZ MD V06.1 TDAP DX 12/15/2012 JASON FINNEY, ZAYRA Shea V06.1 TDAP DX 12/15/2012 BENITEZ SKINNER APRN V06.1 TDAP DX 12/15/2012 JASON FINNEY, ZAYRA Shea V06.1 TDAP DX 12/15/2012 JUDSON CLEANER AND PRESSER, GILBERTO A V06.1 TDAP DX 12/15/2012 DANIELA FINNEY, ALAN Deshpande V06.1 TDAP DX 12/15/2012 DANIELA FINNEY, ALAN Deshpande V06.1 TDAP DX 12/15/2012 JASON FINNEY, ZAYRA Shea V06.1 TDAP DX 12/15/2012 DANEILA FINNEY, ALAN Deshpande V06.1 TDAP DX 12/15/2012 GILBERTO ROPER APRN A V06.1 TDAP DX 12/15/2012 PORRAS DO, [...] BRUNILDA FINNEY, SUSANNE Taylor Ot 646.83 02/03/2013 SUSANNE WORLEY MD Ot 789.00 02/04/2013 V28.6 GBS SCREENING 02/04/2013 V28.6 GBS SCREENING 02/04/2013 V28.6 GBS SCREENING 02/04/2013 V28.6 GBS SCREENING 02/04/2013 V28.6 GBS SCREENING 02/04/2013 V28.6 GBS SCREENING 02/04/2013 V28.6 GBS SCREENING 02/04/2013 PORRAS , DERICK K V28.6 GBS SCREENING 02/04/2013 GILBERTO ROPER APRN A V28.6 GBS SCREENING 02/04/2013 MARLIN HORNE APRN V28.6 GBS SCREENING 02/04/2013 GILBERTO ROPER APRN A V28.6 GBS SCREENING 02/04/2013 GILBERTO ROPER APRN A V28.6 GBS SCREENING 02/04/2013 V28.6 GBS SCREENING 02/04/2013 IGLBERTO ROPER APRN A V28.6 GBS SCREENING 02/04/2013 SILVA VALENZUELA APRN V28.6 GBS SCREENING 02/04/2013 BRISEIDA HORNE APRNA S V28.6 GBS SCREENING 02/04/2013 JUDSON GRADY GILBERTO A V28.6 GBS SCREENING 02/04/2013 CHIQUITA CHARLES DERICK K V28.6 GBS SCREENING 02/04/2013 PORRAS , DERICK K V28.6 GBS SCREENING 02/04/2013 ZAYRA GOMEZ MD V28.6 GBS SCREENING 02/04/2013 ZAYRA GOMEZ MD V28.6 GBS SCREENING 02/04/2013 MARLIN HORNE APRN S V28.6 GBS SCREENING 02/04/2013 ZAYRA GOMEZ MD V28.6 GBS SCREENING 02/04/2013 ZAYRA GOMEZ MD V28.6 GBS SCREENING 02/04/2013 ZAYRA GOMEZ MD V28.6 GBS SCREENING 02/04/2013 BENITEZ SKINNER APRN V28.6 GBS SCREENING 02/04/2013 ZAYRA GOMEZ MD V28.6 GBS SCREENING 02/04/2013 OSIEL ROPER APRNIDI A V28.6 GBS SCREENING 02/04/2013 ALAN SUAREZ MD V28.6 GBS SCREENING 02/04/2013 ALAN SUAREZ MD N V28.6 GBS SCREENING 02/04/2013 ZAYRA GOMEZ MD V28.6 GBS SCREENING 02/04/2013 ALAN SUAREZ MD N V28.6 GBS SCREENING 02/04/2013 OSIEL ROPER APRNIDI A V28.6 GBS SCREENING 02/04/2013 CHIQUITA CHARLES DERICK K V28.6 GBS SCREENING 02/04/2013 CHIQUITA [...] DERICK PORRAS DO K 564.00 CONSTIPATION 03/04/2013 JUDSON GRADY GILBERTO A 564.00 CONSTIPATION 03/04/2013 MARLIN HORNE APRN S 564.00 CONSTIPATION 03/04/2013 JUDSON GRADY GILBERTO A 564.00 CONSTIPATION 03/04/2013 OSIEL ROPER APRNIDI A 564.00 CONSTIPATION 03/04/2013 564.00 CONSTIPATION 03/04/2013 OSIEL ROPER APRNIDI A 564.00 CONSTIPATION 03/04/2013 SILVA VALENZUELA APRN 564.00 CONSTIPATION 03/04/2013 BRISEIDA HONRE APRNA S 564.00 CONSTIPATION 03/04/2013 OSIEL ROPER APRNIDI A 564.00 CONSTIPATION 03/04/2013 DERICK PORRAS DO K 564.00 CONSTIPATION 03/04/2013 DERICK PORRAS DO K 564.00 CONSTIPATION 03/04/2013 JASON FINNEY, ZAYRA hSea 564.00 CONSTIPATION 03/04/2013 JASON FINNEY, ZAYRA Shea 564.00 CONSTIPATION 03/04/2013 MARLIN HORNE APRN S 564.00 CONSTIPATION 03/04/2013 JASON FINNEY, ZAYRA Shea 564.00 CONSTIPATION 03/04/2013 JASON FINNEY, ZAYRA Shea 564.00 CONSTIPATION 03/04/2013 ZAYRA GOMEZ MD 564.00 CONSTIPATION 03/04/2013 SUSANNE GRADYSANDRINEROBERTA Ayoub 564.00 CONSTIPATION 03/04/2013 ZAYRA GOMEZ MD 564.00 CONSTIPATION 03/04/2013 JUDSON APRN, GILBERTO A 564.00 CONSTIPATION 03/04/2013 DANIELA FINNEY, ALAN N 564.00 CONSTIPATION 03/04/2013 DANIELA FINNEY, ALAN N 564.00 CONSTIPATION 03/04/2013 ZAYRA GOMEZ MD 564.00 CONSTIPATION 03/04/2013 DANIELA FINNEY, ALAN N 564.00 CONSTIPATION 03/04/2013 JUDSON CLEANER AND PRESSER, GILBERTO A 564.00 CONSTIPATION 03/04/2013 PORRAS DO, DERICK K 564.00 CONSTIPATION 03/04/2013 CHIQUITA CHARLES, DERICK K 564.00 CONSTIPATION 03/04/2013 OTILIA GRADYKAITLYNNJAMIA Claudia 564.00 CONSTIPATION 03/26/2013 380.10 OTITIS EXTERNA RIGHT 03/26/2013 DERICK PORRAS DO K 380.10 OTITIS EXTERNA RIGHT 03/26/2013 GILBERTO ROPER APRN A 380.10 OTITIS EXTERNA RIGHT 03/26/2013 MARLIN HORNE APRN S 380.10 OTITIS EXTERNA RIGHT 03/26/2013 GILBERTO ROPER APRN A 380.10 OTITIS EXTERNA RIGHT 03/26/2013 OSIEL ROPER APRNIDI A 380.10 OTITIS EXTERNA RIGHT 03/26/2013 380.10 OTITIS EXTERNA RIGHT 03/26/2013 OSIEL ROPER APRNIDI A 380.10 OTITIS EXTERNA RIGHT 03/26/2013 SILVA VALENZUELA APRN N 380.10 OTITIS EXTERNA RIGHT 03/26/2013 MARLIN HORNE APRN S 380.10 OTITIS EXTERNA RIGHT 03/26/2013 GILBERTO ROPER APRN A 380.10 OTITIS EXTERNA RIGHT 03/26/2013 DERICK PORRAS DO K 380.10 OTITIS EXTERNA RIGHT 03/26/2013 HOSEA PORRAS DOA K 380.10 OTITIS EXTERNA RIGHT 03/26/2013 ZAYRA GOMEZ MD 380.10 OTITIS EXTERNA RIGHT 03/26/2013 ZAYRA GOMEZ MD 380.10 OTITIS EXTERNA RIGHT 03/26/2013 MARLIN HORNE APRN S 380.10 OTITIS EXTERNA RIGHT 03/26/2013 JAOSN FINNEY, ZAYRA Shea 380.10 OTITIS EXTERNA RIGHT 03/26/2013 ZAYRA GOMEZ MD 380.10 OTITIS EXTERNA RIGHT 03/26/2013 ZAYRA GOMEZ MD 380.10 OTITIS EXTERNA RIGHT 03/26/2013 SUSANNE GRADY BENITEZ D 380.10 OTITIS EXTERNA RIGHT 03/26/2013 ZAYRA GOMEZ MD 380.10 OTITIS EXTERNA RIGHT 03/26/2013 GILBERTO ROPER APRN A 380.10 OTITIS EXTERNA RIGHT 03/26/2013 DANIELA FINNEY, ALAN Deshpande 380.10 OTITIS EXTERNA RIGHT 03/26/2013 ALAN SUAREZ MD 380.10 OTITIS EXTERNA RIGHT 03/26/2013 ZAYRA GOMEZ MD 380.10 OTITIS EXTERNA RIGHT 03/26/2013 DANIELA FINNEY, ALAN Deshpande 380.10 OTITIS EXTERNA RIGHT 03/26/2013 GILBERTO ROPER APRN A 380.10 OTITIS EXTERNA RIGHT 03/26/2013 DERICK PORRAS DO 380.10 OTITIS EXTERNA RIGHT 03/26/2013 DERICK PORRAS DO 380.10 OTITIS EXTERNA RIGHT 03/26/2013 JAMIA BINGHAM APRN 380.10 OTITIS EXTERNA RIGHT 04/03/2013 GERALDO FINNEY, DHARMESH A Ot 623.8 04/03/2013 DHARMESH CHOW MD Ot 654.74 04/09/2013 DERICK PORRAS DO V25.09 [...] V76.2 CERVICAL CANCER SCREENING (PAP SMEAR) 04/09/2013 OSIEL ROPER APRNIDI A V25.09 CONTRACEPTIVE COUNSELING - GENERAL 04/09/2013 GILBERTO ROPER APRN A V76.2 CERVICAL CANCER SCREENING (PAP SMEAR) 04/09/2013 ZEHRA MENDOZA APRCharlee SILVA N V25.09 CONTRACEPTIVE COUNSELING - GENERAL 04/09/2013 ZEHRA MENDOZA APRCharlee SILVA N V76.2 CERVICAL CANCER SCREENING (PAP SMEAR) 04/09/2013 BRISEIDA HORNE APRNA S V25.09 CONTRACEPTIVE COUNSELING - GENERAL 04/09/2013 RAMEZ HORNE APRNNDA S V76.2 CERVICAL CANCER SCREENING (PAP SMEAR) 04/09/2013 GILBERTO ROPER APRN A V25.09 CONTRACEPTIVE COUNSELING - GENERAL 04/09/2013 GILBERTO ROPER APRN A V76.2 CERVICAL CANCER SCREENING (PAP SMEAR) 04/09/2013 HOSEA PORRAS DOA K V25.09 CONTRACEPTIVE COUNSELING - GENERAL 04/09/2013 HOSEA PORRAS DOA K V76.2 CERVICAL CANCER SCREENING (PAP SMEAR) 04/09/2013 HOSEA PORRAS DOA K V25.09 CONTRACEPTIVE COUNSELING - GENERAL 04/09/2013 HOSEA PORRAS DOA K V76.2 CERVICAL CANCER SCREENING (PAP SMEAR) [...] V76.2 CERVICAL CANCER SCREENING (PAP SMEAR) 04/09/2013 PORRAS DO, DERICK K V25.09 CONTRACEPTIVE COUNSELING - GENERAL 04/09/2013 DERICK PORRAS DO K V76.2 CERVICAL CANCER SCREENING (PAP SMEAR) 04/09/2013 DERICK PORRAS DO K V25.09 CONTRACEPTIVE COUNSELING - GENERAL 04/09/2013 DERICK PORRAS DO K V76.2 CERVICAL CANCER SCREENING (PAP SMEAR) 04/09/2013 LUISL JAMIA GRADY L V25.09 CONTRACEPTIVE COUNSELING - GENERAL 04/09/2013 MADL CLEANER AND PRESSER, JAMIA L V76.2 CERVICAL CANCER SCREENING (PAP SMEAR) 08/12/2013 DERICK PORRAS DO K 786.09 DYSPNEA 08/12/2013 JUDSON CLEANER AND PRESSER, GILBERTO A 786.09 DYSPNEA 08/12/2013 OZZIE GRADY MARLIN S 786.09 DYSPNEA 08/12/2013 JUDSON CLEANER AND PRESSER, GILBERTO A 786.09 DYSPNEA 08/12/2013 JUDSON CLEANER AND PRESSER, GILBERTO A 786.09 DYSPNEA 08/12/2013 786.09 DYSPNEA 08/12/2013 JUDSON HERNÁNDEZN, GILBERTO A 786.09 DYSPNEA 08/12/2013 SILVA VALENZUELA APRN N 786.09 DYSPNEA 08/12/2013 OZZIE GRADY, MARLIN S 786.09 DYSPNEA 08/12/2013 JUDSON CLEANER AND PRESSER, GILBERTO A 786.09 DYSPNEA 08/12/2013 DERICK PORRAS [...] 08/12/2013 ZAYRA GOMEZ MD 786.09 DYSPNEA 08/12/2013 JUDSONTRENT GRADY, GILBERTO A 786.09 DYSPNEA 08/12/2013 ALAN SUAREZ MD 786.09 DYSPNEA 08/12/2013 ALAN SUAREZ MD 786.09 DYSPNEA 08/12/2013 ZAYRA GOMEZ MD 786.09 DYSPNEA 08/12/2013 ALAN SUAREZ MD 786.09 DYSPNEA 08/12/2013 GILBERTO ROPER APRN A 786.09 DYSPNEA 08/12/2013 PORRAS DO, DERICK K 786.09 DYSPNEA 08/12/2013 PORRAS DO, DERICK K 786.09 DYSPNEA 08/12/2013 MIKE BINGHAM APRNNYElroy Taylor 786.09 DYSPNEA 08/23/2013 GILBERTO ROPER APRN A 625.3 DYSMENORRHEA 08/23/2013 MARLIN HORNE APRN S 625.3 DYSMENORRHEA 08/23/2013 GILBERTO ROPER APRN A 625.3 DYSMENORRHEA 08/23/2013 GILBERTO ROPER APRN A 625.3 DYSMENORRHEA 08/23/2013 625.3 DYSMENORRHEA 08/23/2013 GILBERTO ROPER APRN A 625.3 DYSMENORRHEA 08/23/2013 SILVA VALENZUELA APRN N 625.3 DYSMENORRHEA 08/23/2013 BRISEIDA HORNE APRNA S 625.3 DYSMENORRHEA 08/23/2013 GILBERTO ROPER APRN A 625.3 DYSMENORRHEA 08/23/2013 PORRAS DO, DERICK K 625.3 DYSMENORRHEA 08/23/2013 PORRAS DO, DERICK K 625.3 DYSMENORRHEA 08/23/2013 ZAYRA GOMEZ MD 625.3 DYSMENORRHEA 08/23/2013 ZAYRA GOMEZ MD 625.3 DYSMENORRHEA 08/23/2013 MARLIN HORNE APRN S 625.3 DYSMENORRHEA 08/23/2013 ZAYRA GOMEZ MD 625.3 DYSMENORRHEA 08/23/2013 ZAYRA GOMEZ MD 625.3 DYSMENORRHEA 08/23/2013 ZAYRA GOMEZ MD 625.3 DYSMENORRHEA 08/23/2013 BENITEZ SKINNER APRN 625.3 DYSMENORRHEA 08/23/2013 ZAYRA GOMEZ MD 625.3 DYSMENORRHEA 08/23/2013 JUDSON CLEANER AND PRESSER, GILBERTO A 625.3 DYSMENORRHEA 08/23/2013 DANIELA FINNEY, ALAN N 625.3 DYSMENORRHEA 08/23/2013 DANIELA FINNEY, ALAN N 625.3 DYSMENORRHEA 08/23/2013 JASON FINNEY, ZAYRA Shea 625.3 DYSMENORRHEA 08/23/2013 DANIELA FINNEY, ALAN N 625.3 DYSMENORRHEA 08/23/2013 JUDSON HERNÁNDEZN, GILBERTO A 625.3 DYSMENORRHEA 08/23/2013 DERICK PORRAS DO K 625.3 DYSMENORRHEA 08/23/2013 DERICK PORRAS DO K 625.3 DYSMENORRHEA 08/23/2013 OTILIA GRADY, JAMIA Taylor 625.3 DYSMENORRHEA 10/28/2013 EMI GONZALEZ APRN Ot 719.47 12/27/2013 MARLIN HORNE APRN S 616.10 VAGINITIS AND VULVOVAGINITIS UNSPECIFIED 12/27/2013 JUDSON GRADY, GILBERTO A 616.10 VAGINITIS AND VULVOVAGINITIS UNSPECIFIED 12/27/2013 JUDSON HERNÁNDEZN, GILBERTO A 616.10 VAGINITIS AND VULVOVAGINITIS UNSPECIFIED 12/27/2013 616.10 VAGINITIS AND VULVOVAGINITIS UNSPECIFIED 12/27/2013 JUDSON GRADY, GILBERTO A 616.10 VAGINITIS AND VULVOVAGINITIS UNSPECIFIED 12/27/2013 ZEHRA MENDOZA APRN, SIVLA N 616.10 VAGINITIS AND VULVOVAGINITIS UNSPECIFIED 12/27/2013 BRISEIDA HORNE APRNA S 616.10 VAGINITIS AND VULVOVAGINITIS UNSPECIFIED 12/27/2013 JUDSON GRADY, GILBERTO A 616.10 VAGINITIS AND VULVOVAGINITIS UNSPECIFIED 12/27/2013 DERICK PORRAS DO K 616.10 VAGINITIS AND VULVOVAGINITIS UNSPECIFIED 12/27/2013 DERICK PORRAS DO K 616.10 VAGINITIS AND VULVOVAGINITIS UNSPECIFIED 12/27/2013 JASON FINNEY, ZAYRA Shea 616.10 VAGINITIS AND VULVOVAGINITIS UNSPECIFIED 12/27/2013 ZAYRA [...] AND VULVOVAGINITIS UNSPECIFIED 01/11/2014 GILBERTO ROPER APRN V22.2 INCIDENTAL 01/11/2014 GILBERTO ROPER APRN V72.42 TEST POSITIVE RESULT 01/11/2014 JUDSON CLEANER AND PRESSER, GILBERTO A V22.2 INCIDENTAL 01/11/2014 JUDSONTRENT GRADY, GILBERTO A V72.42 TEST POSITIVE RESULT 01/11/2014 V22.2 INCIDENTAL 01/11/2014 V72.42 TEST POSITIVE RESULT 01/11/2014 JUDSON GRADY, GILBERTO A V22.2 INCIDENTAL 01/11/2014 JUDSON GRADY, GILBERTO A V72.42 TEST POSITIVE RESULT 01/11/2014 ZEHRA MENDOZA APRN, SILVA N V22.2 INCIDENTAL 01/11/2014 ZEHRA MENDOZA APRN, SILVA N V72.42 TEST POSITIVE RESULT 01/11/2014 OZZIE GRADY, MARLIN S V22.2 INCIDENTAL 01/11/2014 OZZIE GRADY, MARLIN S V72.42 TEST POSITIVE RESULT 01/11/2014 JUDSON GRADY, GILBERTO A V22.2 INCIDENTAL 01/11/2014 JUDSON GRADY, GILBERTO A V72.42 TEST POSITIVE RESULT 01/11/2014 PORRAS [...] MD V72.42 TEST POSITIVE RESULT 01/11/2014 OZZIE CLEANER AND PRESSER, MARLIN S V22.2 INCIDENTAL 01/11/2014 OZZIE CLEANER AND PRESSER, MARLIN S V72.42 TEST POSITIVE RESULT 01/11/2014 [...] GOMEZ MD V72.42 TEST POSITIVE RESULT 01/11/2014 GILBERTO ROPER APRN A V22.2 INCIDENTAL 01/11/2014 GILBERTO ROPER APRN A V72.42 TEST POSITIVE RESULT 01/11/2014 ALAN SUAREZ MD V22.2 INCIDENTAL 01/11/2014 ALAN SUAREZ MD V72.42 TEST POSITIVE RESULT 01/11/2014 ALAN SUAREZ MD N V22.2 INCIDENTAL 01/11/2014 ALAN SUAREZ MD V72.42 TEST POSITIVE RESULT 01/11/2014 ZAYRA GOMEZ MD V22.2 INCIDENTAL 01/11/2014 ZAYRA GOMEZ MD V72.42 TEST POSITIVE RESULT 01/11/2014 ALAN SUAREZ MD N V22.2 INCIDENTAL 01/11/2014 ALAN SUAREZ MD V72.42 TEST POSITIVE RESULT 01/11/2014 GILBERTO ROPER APRN A V22.2 INCIDENTAL 01/11/2014 GILBERTO ROPER APRN A V72.42 TEST POSITIVE RESULT 01/11/2014 PORRAS DO, DERICK K V22.2 INCIDENTAL 01/11/2014 PORRAS DO, DERICK K V72.42 TEST POSITIVE RESULT 01/11/2014 PORRAS DO, DERICK K V22.2 INCIDENTAL 01/11/2014 PORRAS DO, DERICK K V72.42 TEST POSITIVE RESULT 01/11/2014 MADClaudia CLEANER AND PRESSER, JAMIA L V22.2 INCIDENTAL 01/11/2014 MADL YSABEL, JAMIA L V72.42 TEST POSITIVE RESULT 01/11/2014 VERONA BAILEY Ot 276.51 01/11/2014 CRISTIAN VERONA CORONA Ot 599.0 01/11/2014 CRISTIAN VERONA CORONA L Ot 787.02 01/11/2014 CRISTIAN CORONAVERONA Ot 789.00 01/11/2014 CRISTIAN CORONAVERONA Ot V72.42 [...] 646.60 COMPL OF - UTI 01/13/2014 PORRAS DERICK CHARLES K 646.60 COMPL OF - UTI 01/13/2014 PORRAS DERICK CHARLES K 646.60 COMPL OF - UTI 01/13/2014 [...] MD 646.60 COMPL OF - UTI 01/13/2014 ALAN [...] 646.60 COMPL OF -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 GONZALEZ APRN Ot K56.41 FECAL IMPACTION 07/17/2017 EMI GONZALEZ APRN Ot K59.00 CONSTIPATION, UNSPECIFIED 07/17/2017 EMI GONZALEZ APRN Ot Z82.49 FAMILY HX OF ISCHEM HEART DIS AND OTH DI 07/17/2017 EMI GONZALEZ APRN Ot Z87.59 PERSONAL HISTORY OF COMP OF PREG, CHLDBR 07/17/2017 EMI GONZALEZ APRN Ot Z87.891 PERSONAL HISTORY OF NICOTINE DEPENDENCE Procedures Code [place] [address] ROUTINE VENIPUNCTURE 07/28/2012 69388 US OB ULTRASOUND 07/28/2012 66787 TSH 07/28/2012 99764 SYPHILLIS-[facility] 07/28/2012 45610 HIV-[facility] 07/28/2012 63411 RUBELLA-[facility] 07/28/2012 34947 ANTIBODY SCREEN (order) 07/28/2012 19227 BLOOD TYPE/Rh FACTOR 07/28/2012 61228 CULTURE URINE 07/28/2012 85946 HEP B SURFACE ANTIGEN (STATE ) 07/28/2012 44045 CBC 07/28/2012 87062 ROUTINE VENIPUNCTURE 08/03/2012 26497 T4 FREE 08/04/2012 32148 T3 TOTAL 08/04/2012 12399 UA LONG DIP 08/27/2012 32634 ROUTINE VENIPUNCTURE 09/29/2012 59760 US OB ULTRASOUND 09/29/2012 67431 TSH 09/29/2012 84780 T3 TOTAL 09/29/2012 44009 RUBELLA ANTIBODY, IGG 09/29/2012 39643 GC/CHLAM URINE (STATE) 09/29/2012 68386 UA OB DIP 09/29/2012 83029 ROUTINE VENIPUNCTURE 11/10/2012 96540 UA OB DIP 11/10/2012 38412 HEMOGLOBIN (IN-HOUSE) 11/10/2012 22361 US OB - LIMITED 11/10/2012 91019 GLUCOSE SHANICE 1 HOUR 11/10/2012 48980 CULTURE UROGENITAL 11/16/2012 42261 UA OB DIP 11/16/2012 93350 UA OB DIP 12/15/2012 43836 UA OB DIP 12/23/2012 62573 UA OB DIP 01/01/2013 PHYSI PHYSICAL THERAPY, VIA PHAM 01/01/2013 86498 UA OB DIP 01/06/2013 80722 UA OB DIP 01/21/2013 95700 UA OB DIP 02/04/2013 80028 CULTURE GROUP B STREP VAG 02/05/2013 57176 UA OB DIP 02/11/2013 15762 UA OB DIP 02/18/2013 07871 URINE TEST (IN- HOUSE) 03/17/2013 92072 CERUMEN REMOVAL 03/26/2013 53435 URINE TEST (IN- HOUSE) 08/23/2013 12435 TEST, URINE (IN- HOUSE) 01/11/2014 46650 UA LONG DIP 01/11/2014 77980 US OB - EARLY <14 WEEKS 01/11/2014 42269 UA W/ CULTURE IF INDICATED 01/13/2014 50774 ROUTINE VENIPUNCTURE 02/15/2014 76307 T4 FREE 02/15/2014 34163 T3 TOTAL 02/15/2014 75621 SYPHILLIS-[facility] 02/15/2014 61554 HIV ([facility]) 02/15/2014 91506 ANTIBODY SCREEN (order) 02/15/2014 19557 HEP B SURFACE ANTIGEN (STATE ) 02/15/2014 47457 CBC 02/15/2014 10630 TSH 02/15/2014 7772529 ANTIBODY SCREEN (RESULT ONLY) 02/16/2014 54035 OXIMETRY 03/01/2014 76310 CULTURE UROGENITAL 03/17/2014 96062 CULTURE URINE 03/17/2014 33618 GC/CHLAM PROBE (STATE) 03/17/2014 74993 UA OB DIP 03/17/2014 46465 TRICHOMONAS (IN-HOUSE) 03/17/2014 29046 XRAY WRIST LEFT 2 VIEWS 04/01/2014 19309 OXIMETRY 04/01/2014 55024 UA OB DIP 04/13/2014 71517 US OB - COMPLETE >14 WEEKS 05/02/2014 89787 UA OB DIP 05/18/2014 99033 ROUTINE VENIPUNCTURE 06/15/2014 81527 UA OB DIP 06/15/2014 07144 CBC 06/16/2014 16018 GLUCOSE SHANICE 1 HOUR 06/16/2014 82649 UA OB DIP 06/29/2014 22575 UA OB DIP 07/13/2014 Obstetric Yolande, Adam 07/13/2014 14952 UA OB DIP 07/27/2014 00237 CULTURE GROUP B STREP VAG 08/12/2014 97601 UA OB DIP 08/15/2014 17593 UA OB DIP 08/23/2014 92925 ROUTINE VENIPUNCTURE 08/24/2014 97591 UA LONG DIP 08/24/2014 70614 GLUCOSE FINGER STICK 08/24/2014 27442 T4 FREE 08/24/2014 00329 TSH 08/24/2014 64632 T3 TOTAL 08/24/2014 34665 UA OB DIP 08/31/2014 96796 THERAPUTIC INJ SQ/IM 01/05/2015 71522 TEST, URINE (IN- HOUSE) 01/05/2015 J1050 DEPO PROVERA 01/05/2015 44565 UA LONG DIP 01/14/2015 [id number] EXTRACTION OF POC, LOW CERVICAL, OPEN AP 07/02/2017 Results Test Result Range Complete urinalysis with reflex to culture - 12/15/16 23:02 Urine color determination LAWSON NRG Urine clarity determination VERY CLOUDY NRG Urine pH measurement by test strip 6 5-9 Specific gravity of urine by test strip 1.025 1.016- 1.022 Urine protein assay by test strip, semi-quantitative [...] urinalysis with reflex to culture NO NRG Complete urinalysis with reflex to culture - 02/05/17 00:20 Urine color determination YELLOW NRG Urine clarity determination CLOUDY NRG Urine pH measurement by test strip 6 5-9 Specific gravity of urine by test strip 1.020 1.016- 1.022 Urine protein assay by test strip, semi-quantitative 1+ NEGATIVE Urine glucose detection by automated test strip NEGATIVE NEGATIVE Erythrocytes detection in urine sediment by light microscopy NEGATIVE NEGATIVE Urine ketones detection by automated test strip NEGATIVE NEGATIVE Urine nitrite detection by test strip NEGATIVE NEGATIVE Urine total bilirubin detection by test strip NEGATIVE NEGATIVE Urine urobilinogen measurement by automated test strip (mass/volume) NORMAL NORMAL Urine leukocyte esterase detection by dipstick 2+ NEGATIVE Automated urine sediment erythrocyte count by microscopy (number/high power field) NONE NRG Automated urine sediment leukocyte count by microscopy (number/high power field ) [HPF] NRG Bacteria detection in urine sediment by light microscopy MODERATE NRG Squamous epithelial cells detection in urine sediment by light microscopy >50 NRG Crystals detection in urine sediment by light microscopy NONE NRG Casts detection in urine sediment by light microscopy NONE NRG Mucus detection in urine sediment by light microscopy NEGATIVE NRG Complete urinalysis with reflex to culture NO NRG Complete urinalysis with reflex to culture - 02/15/17 22:42 Urine color determination YELLOW NRG Urine clarity determination SLIGHTLY CLOUDY NRG Urine pH measurement by test strip 7 5-9 Specific gravity of urine by test strip 1.015 1.016- 1.022 Urine protein assay by test strip, semi-quantitative 1+ NEGATIVE Urine glucose detection by automated test strip NEGATIVE NEGATIVE Erythrocytes detection in urine sediment by light microscopy NEGATIVE NEGATIVE Urine ketones detection by automated test strip 2+ NEGATIVE Urine nitrite detection by test strip NEGATIVE NEGATIVE Urine total bilirubin detection by test strip NEGATIVE NEGATIVE Urine urobilinogen measurement by automated test strip (mass/volume) 4 mg/dL NORMAL Urine leukocyte esterase detection by dipstick 2+ NEGATIVE Automated urine sediment erythrocyte count by microscopy (number/high power field) RARE NRG Automated urine sediment leukocyte count by microscopy (number/high power field ) [HPF] NRG Bacteria detection in urine sediment by light microscopy FEW NRG Squamous epithelial cells detection in urine sediment by light microscopy TNTC NRG Crystals detection in urine sediment by light microscopy NONE NRG Casts detection in urine sediment by light microscopy NONE NRG Mucus detection in urine sediment by light microscopy NEGATIVE NRG Complete urinalysis with reflex to culture NO NRG Whole blood basic metabolic panel - 02/15/17 23:05 Serum or plasma sodium measurement (moles/volume) 138 mmol/L 135-145 Serum or plasma potassium measurement (moles/volume) 3.7 mmol/L 3.6-5.0 Serum or plasma chloride measurement (moles/volume) 108 mmol/L 98-107 Carbon dioxide 22 mmol/L 21-32 Serum or plasma anion gap determination (moles/volume) 8 mmol/L 5-14 Serum or plasma urea nitrogen measurement (mass/volume) 8 mg/dL 7-18 Serum or plasma creatinine measurement (mass/volume) 0.69 mg/dL 0.60-1.30 Serum or plasma urea nitrogen/creatinine mass ratio 12 NRG Serum or plasma creatinine measurement with calculation of estimated glomerular filtration rate > NRG Serum or plasma glucose measurement (mass/volume) 84 mg/dL 70-105 Serum or plasma calcium measurement (mass/volume) 8.5 mg/dL 8.5-10.1 Magnesium - 02/15/17 23:05 Magnesium 1.9 mg/dL 1.8-2.4 Complete blood count (CBC) with automated white blood cell (WBC) differential - 02/21/17 14:55 Blood leukocytes automated count (number/volume) 8.7 10*3/uL 4.3-11.0 Blood erythrocytes automated count (number/volume) 4.02 10*6/uL 4.35-5.85 Venous blood hemoglobin measurement (mass/volume) 12.5 g/dL 11.5-16.0 Blood hematocrit (volume fraction) 36 % 35-52 Automated erythrocyte mean corpuscular volume 91 [foz_us] 80-99 Automated erythrocyte mean corpuscular hemoglobin (mass per erythrocyte) 31 pg 25-34 Automated erythrocyte mean corpuscular hemoglobin concentration measurement ( mass/volume) 34 g/dL 32-36 Automated erythrocyte distribution width ratio 14.0 % 10.0-14.5 Automated blood platelet count (count/volume) 215 10*3/uL 130-400 Automated blood platelet mean volume measurement 9.8 [foz_us] 7.4-10.4 Automated blood neutrophils/100 leukocytes 73 % 42-75 Automated blood lymphocytes/100 leukocytes 17 % 12-44 Blood monocytes/100 leukocytes 8 % 0-12 Automated blood eosinophils/100 leukocytes 3 % 0-10 Automated blood basophils/100 leukocytes 0 % 0-10 Blood neutrophils automated count (number/volume) 6.4 10*3 1.8-7.8 Blood lymphocytes automated count (number/volume) 1.5 10*3 1.0-4.0 Blood monocytes automated count (number/volume) 0.7 10*3 0.0-1.0 Automated eosinophil count 0.3 10*3/uL 0.0-0.3 Automated blood basophil count (count/volume) 0.0 10*3/uL 0.0-0.1 Serum or plasma choriogonadotropin ( test) detection - 02/21/17 14:55 Serum or plasma choriogonadotropin ( test) detection POSITIVE NEGATIVE Comprehensive metabolic panel - 02/21/17 14:55 Serum or plasma sodium measurement (moles/volume) 138 mmol/L 135-145 Serum or plasma potassium measurement (moles/volume) 3.5 mmol/L 3.6-5.0 Serum or plasma chloride measurement (moles/volume) 105 mmol/L 98-107 Carbon dioxide 24 mmol/L 21-32 Serum or plasma anion gap determination (moles/volume) 9 mmol/L 5-14 Serum or plasma urea nitrogen measurement (mass/volume) 6 mg/dL 7-18 Serum or plasma creatinine measurement (mass/volume) 0.60 mg/dL 0.60-1.30 Serum or plasma urea nitrogen/creatinine mass ratio 10 NRG Serum or plasma creatinine measurement with calculation of estimated glomerular filtration rate > NRG Serum or plasma glucose measurement (mass/volume) 105 mg/dL 70-105 Serum or plasma calcium measurement (mass/volume) 9.0 mg/dL 8.5-10.1 Serum or plasma total bilirubin measurement (mass/volume) 0.8 mg/dL 0.1-1.0 Serum or plasma alkaline phosphatase measurement (enzymatic activity/volume) 58 U/L 40-136 Serum or plasma aspartate aminotransferase measurement (enzymatic activity/ volume) 12 U/L 5-34 Serum or plasma alanine aminotransferase measurement (enzymatic activity/volume ) 11 U/L 0-55 Serum or plasma protein measurement (mass/volume) 6.4 g/dL 6.4-8.2 Serum or plasma albumin measurement (mass/volume) 3.5 g/dL 3.2-4.5 Complete urinalysis with reflex to culture - 02/21/17 14:57 Urine color determination YELLOW NRG Urine clarity determination VERY CLOUDY NRG Urine pH measurement by test strip 6 5-9 Specific gravity of urine by test strip 1.025 1.016- 1.022 Urine protein assay by test strip, semi-quantitative 1+ NEGATIVE Urine glucose detection by automated test strip NEGATIVE NEGATIVE Erythrocytes detection in urine sediment by light microscopy NEGATIVE NEGATIVE Urine ketones detection by automated test strip 1+ NEGATIVE Urine nitrite detection by test strip NEGATIVE NEGATIVE Urine total bilirubin detection by test strip NEGATIVE NEGATIVE Urine urobilinogen measurement by automated test strip (mass/volume) NORMAL NORMAL Urine leukocyte esterase detection by dipstick 2+ NEGATIVE Automated urine sediment erythrocyte count by [...] in urine sediment by light microscopy NEGATIVE NRG Complete urinalysis with reflex to culture YES NRG Yeast detection in urine sediment by light microscopy FEW NRG Bacterial urine culture - 02/21/17 14:57 URINE CULTURE RESULTS CONTAMINATION NRG Complete urinalysis with reflex to culture - 02/25/17 22:15 Urine color determination YELLOW NRG Urine clarity determination CLEAR NRG Urine pH measurement by test strip 6 5-9 Specific gravity of urine by test strip 1.025 1.016- 1.022 Urine protein assay by test strip, semi-quantitative 1+ NEGATIVE Urine glucose detection by automated test strip NEGATIVE NEGATIVE Erythrocytes detection in urine sediment by light microscopy 4+ NEGATIVE Urine ketones detection by automated test strip 1+ NEGATIVE Urine nitrite detection by test strip NEGATIVE NEGATIVE Urine total bilirubin detection by test strip NEGATIVE NEGATIVE Urine urobilinogen measurement by automated test strip (mass/volume) 1 mg/dL NORMAL Urine leukocyte esterase detection by dipstick 1+ NEGATIVE Automated urine sediment erythrocyte count by microscopy (number/high power field) RARE NRG Automated urine sediment leukocyte count by microscopy (number/high power field ) [HPF] NRG Bacteria detection in urine sediment by light microscopy FEW NRG Squamous epithelial cells detection in urine sediment by light microscopy 10-25 NRG Crystals detection in urine sediment by light microscopy NONE NRG Casts detection in urine sediment by light microscopy NONE NRG Mucus detection in urine sediment by light microscopy LARGE NRG Complete urinalysis with reflex to culture NO NRG Microscopic examination by wet preparation - 02/25/17 22:30 WET PREP RESULTS FEW WBC'S OBSERVED ON DIRECT GRAM STAIN NRG Complete urinalysis with reflex to culture - 03/04/17 16:00 Urine color determination YELLOW NRG Urine clarity determination SLIGHTLY CLOUDY NRG Urine pH measurement by test strip 7 5-9 Specific gravity of urine by test strip 1.015 1.016- 1.022 Urine protein assay by test strip, semi-quantitative NEGATIVE NEGATIVE Urine glucose detection by automated test strip NEGATIVE NEGATIVE Erythrocytes detection in urine sediment by light microscopy 2+ NEGATIVE Urine ketones detection by automated test strip NEGATIVE NEGATIVE Urine nitrite detection by test strip NEGATIVE NEGATIVE Urine total bilirubin detection by test strip NEGATIVE NEGATIVE Urine urobilinogen measurement by automated test strip (mass/volume) NORMAL NORMAL Urine leukocyte esterase detection by dipstick 2+ NEGATIVE Automated urine sediment erythrocyte count by microscopy (number/high power field) [HPF] NRG Automated urine sediment leukocyte count by microscopy (number/high power field ) [HPF] NRG Bacteria detection in urine sediment by light microscopy MODERATE NRG Squamous epithelial cells detection in urine sediment by light microscopy >50 NRG Crystals detection in urine sediment by light microscopy NONE NRG Casts detection in urine sediment by light microscopy NONE NRG Mucus detection in urine sediment by light microscopy NEGATIVE NRG Complete urinalysis with reflex to culture YES NRG Bacterial urine culture - 03/04/17 16:00 Bacterial urine culture [id number] NRG COLONY COUNT 10,000/ML - 100,000/ML NR FTX;REPORTABLE SENSITIVITY REPORTED AT 0756, 6-15-17 NR URINE CULTURE RESULTS PLUS NR Bacterial susceptibility panel - 03/04/17 16:00 Gentamicin susceptibility test by minimum inhibitory concentration < = NRG Trimethoprim/sulfamethoxazole susceptibility test by minimum inhibitoryconcentration <= NRG Ampicillin susceptibility test by minimum inhibitory concentration < = NRG Tobramycin susceptibility test by minimum inhibitory concentration < = NRG Cefazolin susceptibility test by minimum inhibitory concentration < = NRG Ceftriaxone susceptibility test by minimum inhibitory concentration <= NRG Ampicillin/sulbactam susceptibility test by minimum inhibitory concentration <= NRG Piperacillin/tazobactam susceptibility test by minimum inhibitory concentration <= NRG Ciprofloxacin susceptibility test by minimum inhibitory concentration <= NRG Meropenem susceptibility test by minimum inhibitory concentration < = NRG Nitrofurantoin susceptibility test by minimum inhibitory concentration <= NRG Aztreonam susceptibility test by minimum inhibitory concentration < = NRG Extended spectrum beta lactamase (ESBL) producing bacteria susceptibility test by minimum inhibitory concentration - NRG Complete urinalysis with reflex to culture - 03/18/17 16:25 Urine color determination YELLOW NRG Urine clarity determination SLIGHTLY CLOUDY NRG Urine pH measurement by test strip 7 5-9 Specific gravity of urine by test strip 1.015 1.016- 1.022 Urine protein assay by test strip, semi-quantitative NEGATIVE NEGATIVE Urine glucose detection by automated test strip NEGATIVE NEGATIVE Erythrocytes detection in urine sediment by light microscopy NEGATIVE NEGATIVE Urine ketones detection by automated test strip NEGATIVE NEGATIVE Urine nitrite detection by test strip NEGATIVE NEGATIVE Urine total bilirubin detection by test strip NEGATIVE NEGATIVE Urine urobilinogen measurement by automated test strip (mass/volume) NORMAL NORMAL Urine leukocyte esterase detection by dipstick 2+ NEGATIVE Automated urine sediment erythrocyte count by microscopy (number/high power field) NONE NRG Automated urine sediment leukocyte count by microscopy (number/high power field ) [HPF] NRG Bacteria detection in urine sediment by light microscopy MODERATE NRG Squamous epithelial cells detection in urine sediment by light microscopy 10-25 NRG Crystals detection in urine sediment by light microscopy NONE NRG Casts detection in urine sediment by light microscopy NONE NRG Mucus detection in urine sediment by light microscopy SMALL NRG Complete urinalysis with reflex to culture YES NRG Bacterial urine culture - 03/18/17 16:25 Bacterial urine culture [id number] NRG COLONY COUNT 10,000/ML - 100,000/ML NRG FREE TEXT ENTRY 2 MIXED REJI 10,000 - 100,000/ML NRG Complete urinalysis with reflex to culture - 04/03/17 19:55 Urine color determination YELLOW NRG Urine clarity determination VERY CLOUDY NRG Urine pH measurement by test strip 8 5-9 Specific gravity of urine by test strip 1.010 1.016- 1.022 Urine protein assay by test strip, semi-quantitative NEGATIVE NEGATIVE Urine glucose detection by automated test strip NEGATIVE NEGATIVE Erythrocytes detection in urine sediment by light microscopy NEGATIVE NEGATIVE Urine ketones detection by automated test strip NEGATIVE NEGATIVE Urine nitrite detection by test strip NEGATIVE NEGATIVE Urine total bilirubin detection by test strip NEGATIVE NEGATIVE Urine urobilinogen measurement by automated test strip (mass/volume) NORMAL NORMAL Urine leukocyte esterase detection by dipstick 1+ NEGATIVE Automated urine sediment erythrocyte count by microscopy (number/high power field) NONE NRG Automated urine sediment leukocyte count by microscopy (number/high power field ) [HPF] NRG Bacteria detection in urine sediment by light microscopy FEW NRG Squamous epithelial cells detection in urine sediment by light microscopy 25-50 NRG Crystals detection in urine sediment by light microscopy PRESENT NRG Casts detection in urine sediment by light microscopy NONE NRG Mucus detection in urine sediment by light microscopy NEGATIVE NRG Complete urinalysis with reflex to culture NO NRG Amorphous sediment detection in urine sediment by light microscopy LARGE ROSA ISELA PHOSPHATE NRG Bacterial urine culture - 04/03/17 19:55 URINE CULTURE RESULTS <10,000/ML NRG Complete urinalysis with reflex to culture - 05/01/17 23:33 Urine color determination YELLOW NRG Urine clarity determination CLEAR NRG Urine pH measurement by test strip 7 5-9 Specific gravity of urine by test strip 1.015 1.016- 1.022 Urine protein assay by test strip, semi-quantitative 1+ NEGATIVE Urine glucose detection by automated test strip NEGATIVE NEGATIVE Erythrocytes detection in urine sediment by light microscopy NEGATIVE NEGATIVE Urine ketones detection by automated test strip NEGATIVE NEGATIVE Urine nitrite detection by test strip NEGATIVE NEGATIVE Urine total bilirubin detection by test strip NEGATIVE NEGATIVE Urine urobilinogen measurement by automated test strip (mass/volume) 4 mg/dL NORMAL Urine leukocyte esterase detection by dipstick 2+ NEGATIVE Automated urine sediment erythrocyte count by microscopy (number/high power field) NONE NRG Automated urine sediment leukocyte count by microscopy (number/high power field ) [HPF] NRG Bacteria detection in urine sediment by light microscopy MODERATE NRG Squamous epithelial cells detection in urine sediment by light microscopy 10-25 NRG Crystals detection in urine sediment by light microscopy NONE NRG Casts detection in urine sediment by light microscopy NONE NRG Mucus detection in urine sediment by light microscopy SMALL NRG Complete urinalysis with reflex to culture YES NRG Bacterial urine culture - 05/01/17 23:33 Bacterial urine culture RTF NRG COLONY COUNT . NRG URINE CULTURE RESULTS <10,000/ML NRG Bacterial urine culture - 05/15/17 19:00 URINE CULTURE RESULTS <10,000/ML NRG Complete urinalysis with reflex to culture - 05/29/17 22:10 Urine color determination LAWSON NRG Urine clarity determination SLIGHTLY CLOUDY NRG Urine pH measurement by test strip 5 5-9 Specific gravity of urine by test strip 1.025 1.016- 1.022 Urine protein assay by test strip, semi-quantitative 2+ NEGATIVE Urine glucose detection by automated test strip NEGATIVE NEGATIVE Erythrocytes detection in urine sediment by light microscopy NEGATIVE NEGATIVE Urine ketones detection by automated test strip 3+ NEGATIVE Urine nitrite detection by test strip NEGATIVE NEGATIVE Urine total bilirubin detection by test strip NEGATIVE NEGATIVE Urine urobilinogen measurement by automated test strip (mass/volume) 4 mg/dL NORMAL Urine leukocyte esterase detection by dipstick 3+ NEGATIVE Automated urine sediment erythrocyte count by microscopy (number/high power field) NONE NRG Automated urine sediment leukocyte count by microscopy (number/high power field ) [HPF] NRG Bacteria detection in urine sediment by light microscopy FEW NRG Squamous epithelial cells detection in urine sediment by light microscopy >50 NRG Crystals detection in urine sediment by light microscopy PRESENT NRG Casts detection in urine sediment by light microscopy NONE NRG Mucus detection in urine sediment by light microscopy MODERATE NRG Complete urinalysis with reflex to culture YES NRG Calcium oxalate crystals detection in urine sediment by light microscopy RARE NRG Bacterial urine culture - 05/29/17 22:10 URINE CULTURE RESULTS 10,000/ML - 100,000/ML NRG Methicillin resistant Staphylococcus aureus (MRSA) screening culture - 10:00 Methicillin resistant Staphylococcus aureus (MRSA) screening culture NEG NRG Complete urinalysis with reflex to culture - 06/29/17 22:05 Urine color determination YELLOW NRG Urine clarity determination CLEAR NRG Urine pH measurement by test strip 6 5-9 Specific gravity of urine by test strip 1.015 1.016- 1.022 Urine protein assay by test strip, semi-quantitative NEGATIVE NEGATIVE Urine glucose detection by automated test strip NEGATIVE NEGATIVE Erythrocytes detection in urine sediment by light microscopy NEGATIVE NEGATIVE Urine ketones detection by automated test strip NEGATIVE NEGATIVE Urine nitrite detection by test strip NEGATIVE NEGATIVE Urine total bilirubin detection by test strip NEGATIVE NEGATIVE Urine urobilinogen measurement by automated test strip (mass/volume) NORMAL NORMAL Urine leukocyte esterase detection by dipstick 1+ NEGATIVE Automated urine sediment erythrocyte count by microscopy (number/high power field) NONE NRG Automated urine sediment leukocyte count by microscopy (number/high power field ) [HPF] NRG Bacteria detection in urine sediment by light microscopy MODERATE NRG Squamous epithelial cells detection in urine sediment by light microscopy 25-50 NRG Crystals detection in urine sediment by light microscopy NONE NRG Casts detection in urine sediment by light microscopy NONE NRG Mucus detection in urine sediment by light microscopy SMALL NRG Complete urinalysis with reflex to culture NO NRG Complete blood count (CBC) with automated white blood cell (WBC) differential - 07/02/17 06:07 Blood leukocytes automated count (number/volume) 9.0 10*3/uL 4.3-11.0 Blood erythrocytes automated count (number/volume) 3.80 10*6/uL 4.35-5.85 Venous blood hemoglobin measurement (mass/volume) 11.9 g/dL 11.5-16.0 Blood hematocrit (volume fraction) 34 % 35-52 Automated erythrocyte mean corpuscular volume 89 [foz_us] 80-99 Automated erythrocyte mean corpuscular hemoglobin (mass per erythrocyte) 31 pg 25-34 Automated erythrocyte mean corpuscular hemoglobin concentration measurement ( mass/volume) 35 g/dL 32-36 Automated erythrocyte distribution width ratio 14.0 % 10.0-14.5 Automated blood platelet count (count/volume) 210 10*3/uL 130-400 Automated blood platelet mean volume measurement 12.3 [foz_us] 7.4-10.4 Automated blood neutrophils/100 leukocytes 66 % 42-75 Automated blood lymphocytes/100 leukocytes 24 % 12-44 Blood monocytes/100 leukocytes 8 % 0-12 Automated blood eosinophils/100 leukocytes 2 %

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
[2017-12-01] MEDS ORDERED: ONDANSETRON 4 MG/2 ML (SDV) Z0FRAN IVP ONE (19:30)
[2017-12-01 19:35] LABS: BILIRUBIN,URINE NEGATIVE (NEGATIVE); CLARITY,URINE CLEAR; COLOR,URINE YELLOW; GLUCOSE, URINE (UA) NEGATIVE (NEGATIVE); KETONES,URINE NEGATIVE (NEGATIVE); LEUKOCYTE ESTERASE ,URINE 1+ (NEGATIVE); NITRITE,URINE NEGATIVE (NEGATIVE); PH,URINE 8 (5-9); PROTEIN,URINE NEGATIVE (NEGATIVE); UROBILINOGEN,URINE 4 MG/DL (NORMAL)
[2017-12-01 19:48] LABS: BASOPHILS % (AUTO) 0 % (0-10); EOSINOPHILS # (AUTO) 0.2 10^3/uL (0.0-0.3); EOSINOPHILS % (AUTO) 2 % (0-10); HEMATOCRIT 39 % (35-52); HEMOGLOBIN 13.6 G/DL (11.5-16.0); LYMPHOCYTES # (AUTO) 1.3 X 10^3 (1.0-4.0); LYMPHOCYTES % (AUTO) 17 % (12-44); MEAN CORPUSCULAR HEMOGLOBIN 31 PG (25-34); MEAN CORPUSCULAR HGB CONC 35 G/DL (32-36); MEAN CORPUSCULAR VOLUME 88 FL (80-99); MEAN PLATELET VOLUME 10.5 FL (7.4-10.4); MONOCYTES # (AUTO) 0.7 X 10^3 (0.0-1.0); MONOCYTES % (AUTO) 9 % (0-12); NEUTROPHILS # (AUTO) 5.7 X 10^3 (1.8-7.8); NEUTROPHILS % (AUTO) 72 % (42-75); PLATELET COUNT 285 10^3/uL (130-400); RED CELL DISTRIBUTION WIDTH 13.9 % (10.0-14.5); WHITE BLOOD COUNT 7.9 10^3/uL (4.3-11.0)
[2017-12-01 20:16] LABS: BACTERIA,URINE FEW /HPF; SQUAMOUS EPITHELIAL CELL,UR 25-50 /HPF; WBC,URINE 0-2 /HPF
[2017-12-01 20:24] LABS: ALANINE AMINOTRANSFERASE 18 U/L (0-55); ALBUMIN 4.4 GM/DL (3.2-4.5); ALKALINE PHOSPHATASE 79 U/L (40-136); BILIRUBIN,TOTAL 1.1 MG/DL (0.1-1.0); BUN/CREATININE RATIO 15; CALCIUM 9.1 MG/DL (8.5-10.1); CARBON DIOXIDE 25 MMOL/L (21-32); CHLORIDE 104 MMOL/L (98-107); CREATININE SERUM 0.68 MG/DL (0.60-1.30); GFR ESTIMATED > 60; GLUCOSE 84 MG/DL (70-105); LIPASE 17 U/L (8-78); POTASSIUM 3.7 MMOL/L (3.6-5.0); SODIUM 138 MMOL/L (135-145); TOTAL PROTEIN 7.3 GM/DL (6.4-8.2)
[2017-12-01 20:57] VITALS: BP 138/78
== END 2017-12-01 20:57 | disposition home or self-care (01) ==
LOC: EDUNIT# 18:56 → ER 18:57
DX: O21.9 Vomiting of pregnancy, unspecified (principal); O99.611 Diseases of the digestive system complicating pregnancy, first trimester; R19.7 Diarrhea, unspecified; K21.9 Gastro-esophageal reflux disease without esophagitis; O99.511 Diseases of the respiratory system complicating pregnancy, first trimester; J45.909 Unspecified asthma, uncomplicated; O99.341 Other mental disorders complicating pregnancy, first trimester; F32.9 Major depressive disorder, single episode, unspecified; Z88.3 Allergy status to other anti-infective agents; Z3A.00 Weeks of gestation of pregnancy not specified; Z79.51 Long term (current) use of inhaled steroids; Z87.891 Personal history of nicotine dependence; Z87.59 Personal history of other complications of pregnancy, childbirth and the puerperium; Z82.49 Family history of ischemic heart disease and other diseases of the circulatory system
CPT/HCPCS: 36415; 80053; 81000; 83690; 84702; 85025; 86141; 96361; 96374; 96375

== ENCOUNTER 2017-12-16 18:44 | Emergency (ER) | payer SELFPAY ==
[~2017-12-16] VITALS: Ht 152.4 cm; Wt 81.6 kg
--- OUTSIDE RECORDS SUMMARY | 2017-12-16 18:51 | XMS REPORT ---
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 Name Role Phone ZAYRA GOMEZ Unavailable PROBLEMS Type Condition ICD9-CM Code XHT39-UV Code Onset Dates Condition Status SNOMED Code Problem Irregular periods/menstrual cycles N92.6 Active 75314045 Problem Depression, unspecified depression type F32.9 Active 91181319 Problem Missed period N92.6 Active 50540654 Problem DANIELLA (generalized anxiety disorder) F41.1 Active 88992898 Problem Anemia, O90.81 Active 584463840 Problem Seasonal allergic rhinitis, unspecified allergic rhinitis trigger J30.2 Active 112322382 Problem Dysthymic disorder F34.1 Active 98914229 Problem Other headache syndrome G44.89 Active 474715473 ALLERGIES Substance Reaction Event Type Date Status Cefaclor Unknown Drug Allergy Feb, Active ENCOUNTERS Encounter Location Date Diagnosis [place] [address] [address] Dec, [address] [address] Nov, Painful urination R30.9 ; Vaginal yeast infection B37.3 and Early stage of Z34.90 [place] [address] [place] [id number] [place] [address] 20422- 6097 Nov, in multigravida Z34.[address] [address]06- [address]47 16 Nov, 2017 Dysfunction of right eustachian tube H69.81 and Bilateral impacted cerumen H61.[address] 6[address]60- 1380 05 Nov, 2017 [place] [address] [place] [id number] [place] [address] 06226- 3407 Nov, [facility] [address] [place] [id number] [place] [address] 63396 -3407 Nov, Missed period N92.6 [place] [address] [place] [id number] [place] [address] 88642- 4400 Sep, DANIELLA (generalized anxiety disorder) F41.1 and Dysthymic disorder F34.1 [facility] [address] [place] [id number] [place] [address] 74995 -0933 Aug, Acute nasopharyngitis J00 [place] [address] 37227- 0284 Jul, Irregular periods/menstrual cycles N92.6 [place] [address] 78674- 1163 Jul, Bilateral impacted cerumen H61.23 [place] [address] 96838- 6732 Jul, DANIELLA (generalized anxiety disorder) F41.1 and Dysthymic disorder F34.1 [place] [address] [place] [id number] [place] [address] 37950- 9797 Jun, [place] [address] 54462- 6870 Jun, Dysthymic disorder F34.1 [place] [address] 60430- 2674 Jun, Anemia, O90.81 ; Lower abdominal pain R10.30 ; Allergic contact dermatitis due to adhesives L23.1 and Other headache syndrome G44.89 [place] [address] [place] [id number] [place] [address] 71334- 9879 Jun, 39 weeks gestation of Z3A.39 [place] [address] 89929- 6279 May, care in third trimester Z34.93 [facility] [address] [place] [id number] [place] [address] 39313 -0956 24 May, 2017 Acute seasonal allergic rhinitis, unspecified trigger J30.2 [facility] [address] [place] [id number] [place] [address] 77458- 5256 20 May, 2017 Normal in multigravida Z34.80 [facility] [address] 81717 -9147 17 May, 2017 Urinary frequency R35.0 and Pain of round ligament N94.9 [place] [address] 72487- 6494 May, 35 weeks gestation of Z3A.[address] 37172- 1733 Apr, High risk sexual behavior Z72.51 and 33 weeks gestation of Z3A.33 [place] [address] 27068- 1219 Apr, care in third trimester Z34.93 [facility] [place] [address] [place] [id number] [place] [address] 47374 -5610 Apr, Bilateral impacted cerumen H61.23 [place] [address] 69447- 2082 Apr, 30 weeks gestation of Z3A.30 and Encounter for immunization Z23 [place] [address] [place] [id number] [place] [address] 16970- 4806 Mar, 28 weeks gestation of Z3A.28 [place] [address] 40576- 1197 Mar, [place] [address] 24842- 3363 Mar, [place] [address] 24212- 1644 Mar, [facility] [address] [place] [id number] [place] [address] 19613- 6497 Mar, 26 weeks gestation of Z3A.26 [facility] [address] [place] [id number] [place] [address] 86145 -4257 03 Mar, 2017 Acute back pain M54.[address] 19453- 9526 28 Feb, 2017 24 weeks gestation of Z3A.24 [facility] [address] 12139 -1676 27 Feb, 2017 Lower abdominal pain R10.30 [facility] [address] [place] [address] 36597 -4096 25 Feb, 2017 Gastroenteritis and colitis, viral A08.[address] 78308- 9795 14 Feb, 2017 care in second trimester Z34.92 [place] [address] 08203- 2974 07 Feb, 2017 [facility] [address] [place] [address] 74339 -8307 04 Feb, 2017 Abscess L02.91 [facility] [address] 40274 [address]8457 Feb, Vaginal flavia B37.3 [place] [address] 32565- 4462 January, 20 weeks gestation of Z3A.20 [place] [address] 25821- 6540 January, [facility] [address] 79568 -6370 January, Seasonal allergic rhinitis, unspecified allergic rhinitis trigger J30.2 [facility] [address] [place] [address] 87245 -7388 January, Dermatitis L30.9 and Bug bites, initial encounter W57.XXXA [address] 41094- 4909 January, Sore throat J02.9 and Seasonal allergic rhinitis, unspecified allergic rhinitis trigger J30.[address] 94656- 4859 January, 16 weeks gestation of Z3A.16 [place] [address] 40361- 7026 Dec, care in first trimester Z34.[address] 08662- 8994 Nov, care in first trimester Z34.91 and Normal in multigravida Z34.80 [facility] [address] [address] -[address]48 Oct, Nausea and vomiting during O21.[address] 38825- 0247 Oct, [address] 92862- 1714 Oct, [address] 95337- 8595 Oct, Encounter for test, result unknown Z32.[address] 54779- 0711 Sep, Irregular periods/menstrual cycles N92.6 ; Sore throat J02.9 ; Nausea R11.0 and Right ear impacted cerumen H61.21 [facility] [place] [id number] [place] [address] 42603 -5308 Jul, Vaginal discharge N89.8 ; Other specified bacterial agents as the cause of diseases classified elsewhere B96.89 and Acute vaginitis N76.0 [place] [place] [id number] [place] [address] 35093- 3980 10 Jun, 2016 Depression, unspecified depression type F32.9 [place] [address] [place] [id number] [place] [address] 36004- 8742 23 May, 2016 Vaginal candidiasis B37.3 [place] [address] [place] [id number] [place] [address] 41490- 4942 20 May, 2016 Acute pharyngitis, unspecified etiology J02.9 [place] [address] [place] [id number] [place] [address] 55834- 0911 19 May, 2016 Depression, unspecified depression type F32.9 [place] [address] [place] [id number] [place] [address] 85655- 1454 12 May, 2016 Depression, unspecified depression type F32.9 [place] [address] [place] [id number] [place] [address] 46890- 9058 12 May, 2016 Dysthymic disorder F34.1 [facility] [address] [place] [id number] [place] [address] 46856 -3149 10 Apr, 2016 Acute suppurative otitis media of right ear without spontaneous rupture of tympanic membrane, recurrence not specified H66.001 [facility] [address] [place] [id number] [place] [address] 65278 -0051 10 Mar, 2016 Herpes zoster without complication B02.9 [facility] [address] [place] [id number] [place] [address] 40723 -5031 Dec, Allergic rhinitis J30.9 [facility] [address] [place] [id number] [place] [address] 04392 -1667 Dec, Lumbago M54.5 [facility] [address] [place] [id number] [place] [address] 42682 -4624 18 Oct, 2015 Dysuria R30.0 and Urinary tract infection N39.0 [facility] [address] [place] [id number] [place] [address] 52441 -6659 Sep, Acute nasopharyngitis J00 and Strep pharyngitis J02.0 [place] [address] [place] [id number] [place] [address] 21131- 1029 Jul, Upper respiratory tract infection, unspecified type J06.9 [place] [address] [place] [id number] [place] [address] 71417- 4848 Jun, Irritable bowel syndrome without diarrhea K58.9 [place] [address] [place] [id number] [place] [address] 73953- 4138 Jun, [place] [address] [place] [id number] [place] [address] 86511- 3521 May, [place] [address] [place] [id number] [place] [address] 33157- 8956 May, [place] [address] 49691- 3684 May, Otitis externa of left ear 380.10 [place] [address] [place] [id number] [place] [address] 16795- 3444 May, Pain in joint, ankle and foot 719.47 [place] [address] [place] [id number] [place] [address] 44168- 7068 Apr, Pain in joint, ankle and foot 719.47 [place] [address] [place] [id number] [place] [address] 84979- 9139 Mar, Dysuria 788.1 and Incontinence in female 625.6 [place] [id number] [place] [address] 41147- 3874 Feb, Plantar fasciitis of right foot 728.71 ; Ankle weakness 719.67 and Ankle pain, chronic 719.47 [place] [address] [place] [id number] [place] [address] 04447- 9010 Feb, [place] [address] [place] [id number] [place] [address] 48239- 5936 22 Cooper, 2015 Belching 787.3 and Chest wall pain 786.52 [facility] [address] [id number] [place] [address]- 6518 14 Dec, 2014 [facility] [address] [id number] [place] [address]- 4979 Dec, [facility] [address] [facility] [id number] [place] [address]- 2302 Nov, [facility] [address] [id number] [place] [address]- 6670 Nov, [facility] [address] [id number] [place] [address]- 5402 Sep, [facility] [address] [facility] [id number] [place] [address]- 8728 Sep, [facility] [address] [facility] [id number] [place] [address]- 3541 Sep, [facility] [address] [id number] [place] [address]- 4006 Sep, [facility] [address] [id number] [place] [address]- 3802 Aug, [facility] [address] [id number] [place] [address]- 8803 Aug, [facility] [address] [facility] [id number] [place] [address]- 8681 Aug, [facility] [place] [facility] [address] [id number] [place] [address]- 2456 Aug, [facility] [place] [facility] [address] [id number] [place] [address]- 5212 Aug, [facility] [place] [facility] [address] [facility] [id number] [place] 1981 Aug, [facility] [place] [facility] [address] [facility] [id number] [place] [address]- 0701 Aug, [facility] [place] [facility] [address] [id number] [place] [address]- 8016 Aug, [facility] [place] [facility] [address] [id number] [place] 9709 Aug, [facility] [place] [facility] [address] [id number] [place] 6601 Aug, [facility] [place] [facility] [address] [id number] [place] [address]- 6090 Aug, [facility] [place] [facility] [address] [id number] [place] [address]- 7827 Aug, [facility] [place] [facility] [address] [id number] [place] 7917 Aug, [facility] [place] [facility] [address] [id number] [place] [address]- 1484 Aug, [facility] [place] [facility] [address] [id number] [place] [address]- 3363 Jul, [facility] [place] [facility] [address] [id number] [place] [address]- 4616 Jul, [facility] [place] [facility] [address] [facility] [id number] [place] [address]- 2922 Jul, [facility] [place] [facility] [address] [facility] [id number] [place] [address]- 6686 Jul, [facility] [place] [facility] [address] [id number] [place] [address]- 7057 Jul, [facility] [place] [facility] [address] [id number] [place] [address]- 6648 Jul, [facility] [place] [facility] [address] [id number] [place] [address]- 1495 Jul, [facility] [place] [facility] [address] [facility] [id number] [place] [address]- 0933 Jun, [facility] [place] [facility] [address] [id number] [place] [address]- 2635 Jun, [facility] [place] [facility] [address] [id number] [place] [address]- 2880 Jun, [facility] [place] [facility] [address] [id number] [place] [address]- 5488 Jun, [facility] [place] [facility] [address] [id number] [place] [address]- 8281 Jun, [facility] [place] [facility] [address] [id number] [place] [address]- 4511 Jun, [facility] [place] [facility] [address] [id number] [place] [address]- 8882 Jun, [facility] [place] [facility] [address] [id number] [place] [address]- 3686 Jun, [facility] [place] [facility] [address] [id number] [place] [address]- 2094 Jun, [facility] [place] [facility] [address] [id number] [place] [address]- 4862 Jun, [facility] [place] [facility] [address] [id number] [place] [address]- 2389 Jun, [facility] [place] [facility] [address] [id number] [place] [address]- 5712 Jun, [facility] [place] [facility] [address] [id number] [place] [address]- 7290 Jun, [facility] [place] [facility] [address] [id number] [place] [address]- 4427 Jun, [facility] [place] [facility] [address] [id number] [place] [address]- 5384 May, [facility] [place] [facility] [address] [id number] [place] [address]- 3176 May, [facility] [place] [facility] [address] [id number] [place] [address]- 4224 May, [facility] [place] [facility] [address] [id number] [place] [address]- 9448 May, [facility] [place] [facility] [address] [id number] [place] [address]- 1163 May, [facility] [place] [facility] [address] [id number] [place] [address]- 3676 Apr, [facility] [place] [facility] [address] [id number] [place] [address]- 6188 Apr, [facility] [place] [facility] [address] [id number] [place] [address]- 2649 Apr, [facility] [place] [facility] [address] [id number] [place] [address]- 6868 Apr, [facility] [place] [facility] [address] [id number] [place] [address]- 5500 Mar, [facility] [place] [facility] [address] [id number] [place] [address]- 6000 Mar, [facility] [place] [facility] [address] [id number] [place] [address]- 2752 Mar, [facility] [place] [facility] [address] [id number] [place] [address]- 4232 Mar, [facility] [place] [facility] [address] [id number] [place] [address]- 0030 Mar, [facility] [place] [facility] [address] [id number] [place] [address]- 8169 Mar, [facility] [place] [facility] [address] [id number] [place] [address]- 9433 Mar, [facility] [place] [facility] [address] [id number] [place] [address]- 2921 Mar, [facility] [place] [facility] [address] [id number] [place] [address]- 8096 Feb, [facility] [place] [facility] [address] [id number] [place] [address]- 8519 Feb, [facility] [place] [facility] [address] [id number] [place] [address]- 5257 Feb, [facility] [place] [facility] [address] [id number] [place] [address]- 1737 Feb, [facility] [place] [facility] [address] [id number] [place] [address]- 9118 Feb, [facility] [place] [facility] [address] [id number] [place] [address]- 3630 Feb, [facility] [place] [facility] [address] [id number] [place] [address]- 6195 Feb, [facility] [place] [facility] [address] [id number] [place] [address]- 4692 Feb, [facility] [place] [facility] [address] [id number] [place] [address]- 8724 January, [facility] [place] [facility] [address] [id number] [place] [address]- 8004 January, [facility] [place] [facility] [address] [id number] [place] [address]- 6603 January, [facility] [place] [facility] [address] [id number] [place] [address]- 6028 January, [facility] [place] [facility] [address] [id number] [place] [address]- 6539 January, [facility] [place] [facility] [address] [id number] [place] [address]- 7641 January, [facility] [place] [facility] [address] [id number] [place] [address]- 7878 Dec, [facility] [place] [facility] [address] [id number] [place] [address]- 7167 Dec, [facility] [place] [facility] [address] [id number] [place] [address]- 9685 Dec, [facility] [place] [facility] [address] [id number] [place] [address]- 8059 Dec, [facility] [place] [facility] [address] [id number] [place] [address]- 4730 Dec, [facility] [place] [facility] [address] [id number] [place] [address]- 6960 Dec, [facility] [place] [facility] [address] [id number] [place] 0755 Dec, [facility] [place] [facility] [address] [id number] [place] [address]- 3120 Dec, [facility] [place] [facility] [address] [id number] [place] [address]- 9640 Oct, [facility] [place] [facility] [address] [id number] [place] [address]- 5602 Oct, [facility] [place] [facility] [address] [id number] [place] [address]- 8900 Aug, [facility] [place] [facility] [address] [id number] [place] [address]- 4861 Aug, [facility] [place] [facility] [address] [id number] [place] [address]- 4748 Jul, [facility] [place] [facility] [address] [id number] [place] [address]- 6574 Jul, [facility] [place] [facility] [address] [id number] [place] [address]- 3720 Mar, [facility] [place] [facility] [address] [id number] [place] [address]- 7559 Mar, [facility] [place] [facility] [address] [id number] [place] [address]- 9862 Mar, [facility] [place] [facility] [address] [id number] [place] [address]- 5452 Feb, [facility] [place] [facility] [address] [id number] [place] [address]- 3181 Feb, [facility] [place] [facility] [address] [id number] [place] [address]- 4954 Feb, [facility] [address] [id number] [place] [address]- 7810 January, [facility] [address] [id number] [place] [address]- 2586 January, [facility] [address] [id number] [place] [address]- 9669 January, [facility] [address] [id number] [place] [address]- 3850 January, [facility] [address] [id number] [place] [address]- 8020 January, [facility] [address] [id number] [place] [address]- 7596 January, [facility] [address] [id number] [place] [address]- 4445 January, [facility] [address] [id number] [place] [address]- 9580 Dec, [facility] [address] [id number] [place] [address]- 0869 Dec, [facility] [address] [id number] [place] [address]- 9014 Dec, [facility] [address] [id number] [place] [address]- 2816 Dec, [facility] [address] [id number] [place] [address] Nov, [facility] [address] [id number] [place] [address] Nov, [facility] [address] [id number] [place] [address] Nov, [facility] [address] [id number] [place] [address] Oct, [facility] [address] [id number] [place] [address] Oct, [facility] [place] [facility] [address] [id number] [place] [address] Oct, [facility] [address] [id number] [place] [address] Oct, [facility] [place] [facility] [address] [id number] [place] [address] Oct, [facility] [address] [id number] [place] [address] 05 Oct, 2012 [facility] [address] [id number] [place] [address] 30 Sep, 2012 [facility] [address] [id number] [place] [address] Sep, [facility] [address] [id number] [place] [address] Sep, [facility] [address] [id number] [place] [address] Sep, [facility] [address] [id number] [place] [address] Sep, [facility] [address] [id number] [place] [address] Aug, [facility] [place] [facility] [address] [id number] [place] [address] Aug, [facility] [place] [facility] [address] [id number] [place] [address] Aug, [facility] [place] [facility] [address] [id number] [place] [address] 07 Aug, 2012 [facility] [place] [facility] [address] [id number] [place] [address] 06 Aug, 2012 [facility] [place] [facility] [address] [id number] [place] [address] 06 Aug, 2012 [facility] [place] [facility] [address] [id number] [place] [address] 29 Jul, 2012 [facility] [place] [facility] [address] [id number] [place] [address] 29 Jul, 2012 [facility] [place] [facility] [address] [id number] [place] [address] 29 Jul, 2012 [facility] [place] [facility] [address] [id number] [place] [address] 29 Jul, 2012 [facility] [place] [facility] [address] [id number] [place] [address] Jul, [facility] [place] [facility] [address] [id number] [place] [address] Jul, [facility] [place] [facility] [address] [id number] [place] [address] 15 Jul, 2012 [facility] [place] [facility] [address] [id number] [place] [address] 15 Jul, 2012 [facility] [place] [facility] [address] [id number] [place] [address] 14 Jul, 2012 [facility] [place] [facility] [address] [id number] [place] [address] Jul, [facility] [place] [facility] [address] [id number] [place] [address] Jul, [facility] [place] [facility] [address] [id number] [place] [address] 94[address] Jul, [facility] [place] [facility] [address] [id number] [place] [address] Jul, [facility] [place] [facility] [address] [id number] [place] [address] Jul, [facility] [place] [facility] [address] [id number] [place] [address] Jul, [facility] [place] [facility] [address] [id number] [place] [address] 08 Jul, 2012 [facility] [place] [facility] [address] [id number] [place] [address] Jul, [facility] [place] [facility] [address] [id number] [place] [address] Jul, [facility] [place] [facility] [address] [id number] [place] [address], [place] [address] Jul, [facility] [place] [facility] [address] [id number] [place] [address] Jun, [facility] [place] [facility] [address] [id number] [place] [address] Jun, [facility] [place] [facility] [address] [id number] [place] [address] May, [facility] [place] [facility] [address] [id number] [place] [address] Apr, [facility] [place] [facility] [address] [id number] [place] [address] Mar, [facility] [place] [facility] [address] [id number] [place] [address] Feb, [facility] [place] [facility] [address] [id number] [place] [address] Feb, [facility] [place] [facility] [address] [id number] [place] [address] Feb, [facility] [place] [facility] [address] [id number] [place] [address] January, [facility] [place] [facility] [address] [id number] [place] [address] January, [facility] [place] [facility] [address] [id number] [place] [address] Dec, [facility] [place] [facility] [address] [id number] [place] [address] Dec, [facility] [place] [facility] [address] [id number] [place] [address] 08 Nov, 2011 [facility] [place] [facility] [address] [id number] [place] [address] Aug, [facility] [place] [facility] [address] [id number] [place] [address] 16 Jul, 2011 [facility] [place] [facility] [address] [id number] [place] [address] 16 Jul, 2011 [facility] [place] [facility] [address] [id number] [place] [address] 16 Jul, 2011 [facility] [place] [facility] [address] [id number] [place] [address] 12 Jun, 2011 [facility] [place] [facility] [address] [id number] [place] [address] 12 Jun, 2011 [facility] [place] [facility] [address] [id number] [place] [address] 14 May, 2011 [facility] [place] [facility] [address] [id number] [place] [address] 10 Apr, 2011 [facility] [place] [facility] [address] [id number] [place] [address] January, [facility] [place] [facility] [address] [id number] [place] [address] 13 Dec, 2010 [facility] [place] [facility] [address] [id number] [place] [address] 16 Nov, 2010 [facility] [place] [facility] [address] [id number] [place] [address] 10 Oct, 2010 [facility] [place] [facility] [address] [id number] [place] [address] 14 Jun, 2010 [facility] [place] [facility] [address] [id number] [place] [address] 14 Jun, 2010 [facility] [place] [facility] [address] [facility] [id number] [place] [address] Oct, [facility] [address] [facility] [id number] [place] [address] Aug, [facility] [address] [facility] [id number] [place] [address] Jul, [facility] [address] [facility] [id number] [place] [address] [address] Dec, IMMUNIZATIONS No Known Immunizations SOCIAL HISTORY Never Assessed REASON FOR VISIT OB f/u-hospital f/u- was seen for heat exhaustion on the OB floor-[facility] PLAN OF CARE Activity Details Follow Up 2 Weeks Reason: VITAL SIGNS Height 61 in 2017-03-05 Weight 187.7 lbs 2017-03-05 Temperature 97.2 degrees Fahrenheit 2017-03-05 Heart Rate 76 bpm 2017-03-05 Respiratory Rate 18 2017-03-05 BMI 35.466 kg/m2 2017-03-05 Blood pressure systolic 122 mmHg 2017-03-05 Blood pressure diastolic 72 mmHg 2017-03-05 MEDICATIONS Medication Instructions Dosage Frequency Start Date End Date Duration Status Cetirizine HCl 10 mg Orally Once a day 1 tablet 24h January, Active Vol-Care Rx 1 MG Orally Once a day 1 tablet 24h Nov, 90 days Active Zofran 4 MG Orally every 8 hours, PRN 1 tablets Sep, 14 days Active ProAir HFA 108 (90 Base) MCG/ACT Inhalation every 4 hrs 2 puffs as needed 4h Active RESULTS Name Result Date Reference Range UA OB DIP (IN HOUSE) 2017-03-05 Glucose Negative Protein Negative PROCEDURES Procedure Date Ordered Result Body Site URINE-NO MICRO March 05, 2017 INSTRUCTIONS MEDICATIONS ADMINISTERED No Known Medications MEDICAL (GENERAL) HISTORY Type Description Date Medical History Heart murmur Medical History Asthma Medical History Depression, unspecified depression type Surgical History section x 3 2012, 2013, 2016 Surgical History orthopedic surgery-ligament repair, left ankle Hospitalization History Dehydration during multiple stays Hospitalization History Childbirth Hospitalization History Denies any past psychiatric hospitalization Hospitalization History High blood pressure
--- OUTSIDE RECORDS SUMMARY | 2017-12-16 18:58 | XMS REPORT ---
Author Author LORAINE Franklin [facility] Address [address] [place] [address] Care Team Providers Care Ear Nose Throat Physician Name Role Phone LORAINE Franklin Unavailable PROBLEMS Type Condition ICD9-CM Code QAU79-UF Code Onset Dates Condition Status SNOMED Code Problem Irregular periods/menstrual cycles N92.6 Active 11975279 Problem Depression, unspecified depression type F32.9 Active 76641270 Problem Missed period N92.6 Active 31385127 Problem DANIELLA (generalized anxiety disorder) F41.1 Active 71415524 Problem Anemia, O90.81 Active 803874031 Problem Seasonal allergic rhinitis, unspecified allergic rhinitis trigger J30.2 Active 083160768 Problem Dysthymic disorder F34.1 Active 28460475 Problem Other headache syndrome G44.89 Active 079530348 ALLERGIES Substance Reaction Event Type Date Status Cefaclor Unknown Drug Allergy Feb, Active ENCOUNTERS Encounter Location Date Diagnosis [place] [address] [address] [id number] [place] [address] 30117- 4750 Dec, [place] [address] [id number] [place] [address] 19890- 9483 Nov, Painful urination R30.9 ; Vaginal yeast infection B37.3 and Early stage of Z34.90 [place] [address] [id number] [place] [address] 48762- 0704 Nov, in multigravida Z34.[address] 90138- 0131 16 Nov, 2017 Dysfunction of right eustachian tube H69.81 and Bilateral impacted cerumen H61.23 [place] [id number] [place] [address] 62246- 6029 Nov, [place] [address] [id number] [place] [address] 36806- 6099 Nov, [facility] [address] 7[address] -6926 Nov, Missed period N92.6 [place] [address] 40254- 8344 Sep, DANIELLA (generalized anxiety disorder) F41.1 and Dysthymic disorder F34.1 [facility] [id number] [place] [address] 15397 -5553 Aug, Acute nasopharyngitis J00 [place] [address] 97037- 8799 Jul, Irregular periods/menstrual cycles N92.6 [place] [address] 88942- 9442 Jul, Bilateral impacted cerumen H61.23 [place] [address] 79093- 9664 Jul, DANIELLA (generalized anxiety disorder) F41.1 and Dysthymic disorder F34.1 [place] [id number] [place] [address] 76039- 6119 Jun, [place] [address] 56669- 0963 Jun, Dysthymic disorder F34.1 [place] [address] 22864- 3828 Jun, Anemia, O90.81 ; Lower abdominal pain R10.30 ; Allergic contact dermatitis due to adhesives L23.1 and Other headache syndrome G44.89 [place] [id number] [place] [address] 47146- 3464 Jun, 39 weeks gestation of Z3A.39 [place] [address] 53098- 3926 27 May, 2017 care in third trimester Z34.93 [facility] [id number] [place] [address] 70564 -2209 24 May, 2017 Acute seasonal allergic rhinitis, unspecified trigger J30.2 [facility] [place] [address] 40440- 9514 20 May, 2017 Normal in multigravida Z34.80 [facility] [address] 18369 -9783 17 May, 2017 Urinary frequency R35.0 and Pain of round ligament N94.9 [place] [address] 62454- 5362 May, 35 weeks gestation of Z3A.35 [place] [address] 62187- 8338 Apr, High risk sexual behavior Z72.51 and 33 weeks gestation of Z3A.33 [place] [address] 40133- 2665 Apr, care in third trimester Z34.[address] [facility] [place] [address] 36216 -8729 Apr, Bilateral impacted cerumen H61.23 [place] [address] 95367- 0524 Apr, 30 weeks gestation of Z3A.30 and Encounter for immunization Z23 [place] [address] 20831- 0918 Mar, 28 weeks gestation of Z3A.28 [place] [address] 46369- 9161 Mar, [place] [address] 95978- 2615 Mar, [place] [address] 36049- 6297 Mar, [place] [address] [id number] [place] [address] 55501- 2622 12 Mar, 2017 26 weeks gestation of Z3A.26 [facility] [address] [address] [id number] [place] [address] 38088 -1112 03 Mar, 2017 Acute back pain M54.[address] 43957- 7365 28 Feb, 2017 24 weeks gestation of Z3A.24 [facility] [address] [place] [address] 64273 -2301 27 Feb, 2017 Lower abdominal pain R10.30 [facility] [address] [place] [address] 84838 -3271 25 Feb, 2017 Gastroenteritis and colitis, viral A08.[address] 63184- 5277 14 Feb, 2017 care in second trimester Z34.[address] 19625- 4282 07 Feb, 2017 [facility] [address] [place] [address] 02081 -1324 04 Feb, 2017 Abscess L02.91 [facility] [address] 25138 -5921 Feb, Vaginal flavia B37.[address] 53433- 3529 January, 20 weeks gestation of Z3A.[address] 99444- 5098 January, [facility] [address] [place] [address] 02783 -3459 January, Seasonal allergic rhinitis, unspecified allergic rhinitis trigger J30.2 [facility] [address] [place] [address] 73664 -4126 January, Dermatitis L30.9 and Bug bites, initial encounter W57.XXXA [address] 71368- 8562 January, Sore throat J02.9 and Seasonal allergic rhinitis, unspecified allergic rhinitis trigger J30.[address] 18751- 4314 January, 16 weeks gestation of Z3A.[address] 88085- 2321 Dec, care in first trimester Z34.[address] 64939- 0404 Nov, care in first trimester Z34.91 and Normal in multigravida Z34.80 [facility] [address] 34747 -5314 Oct, Nausea and vomiting during O21.[address] 49458- 9314 Oct, [address] 92128- 2221 Oct, [address] 34260- 1249 Oct, Encounter for test, result unknown Z32.[address] 03471- 7148 Sep, Irregular periods/menstrual cycles N92.6 ; Sore throat J02.9 ; Nausea R11.0 and Right ear impacted cerumen H61.21 [facility] [place] [id number] [place] [address] 98620 -5629 Jul, Vaginal discharge N89.8 ; Other specified bacterial agents as the cause of diseases classified elsewhere B96.89 and Acute vaginitis N76.0 [place] [id number] [place] [address] 96681- 0298 10 Jun, 2016 Depression, unspecified depression type F32.9 [place] [id number] [place] [address] 18681- 1846 23 May, 2016 Vaginal candidiasis B37.3 [place] [address] 34854- 1176 20 May, 2016 Acute pharyngitis, unspecified etiology J02.9 [place] [address] 67991- 4821 19 May, 2016 Depression, unspecified depression type F32.9 [place] [id number] [place] [address] 19249- 2269 12 May, 2016 Depression, unspecified depression type F32.9 [place] [address] 06419- 0140 12 May, 2016 Dysthymic disorder F34.1 [facility] N [address] 27543 -2810 10 Apr, 2016 Acute suppurative otitis media of right ear without spontaneous rupture of tympanic membrane, recurrence not specified H66.001 [facility] [id number] [place] [address] 11453 -2737 10 Mar, 2016 Herpes zoster without complication B02.9 [facility] [address] [id number] [place] [address] 48763 -5479 Dec, Allergic rhinitis J30.9 [facility] N [address] 63126 -5981 03 Dec, 2015 Lumbago M54.5 [facility] [address] [id number] [place] [address] 22174 -7910 18 Oct, 2015 Dysuria R30.0 and Urinary tract infection N39.0 [facility] [address] 32483 -4896 Sep, Acute nasopharyngitis J00 and Strep pharyngitis J02.0 [place] [id number] [place] [address] 99407- 7093 Jul, Upper respiratory tract infection, unspecified type J06.9 [place] [id number] [place] [address] 41876- 2491 Jun, Irritable bowel syndrome without diarrhea K58.9 [place] [address] 21233- 8704 Jun, [place] [address] 68346- 2302 May, [place] [id number] [place] [address] 51538- 9239 May, [place] [address] 81293- 2050 May, Otitis externa of left ear 380.10 [place] [id number] [place] [address] 54334- 6526 May, Pain in joint, ankle and foot 719.47 [place] [address] [id number] [place] [address] 53873- 7562 Apr, Pain in joint, ankle and foot 719.47 [place] [address] 61771- 6123 Mar, Dysuria 788.1 and Incontinence in female 625.[address] 56913- 1509 30 Feb, 2015 Plantar fasciitis of right foot 728.71 ; Ankle weakness 719.67 and Ankle pain, chronic 719.47 [place] [id number] [place] [address] 75704- 6114 Feb, [place] [address] 00946- 5496 Feb, Belching 787.3 and Chest wall pain 786.52 [facility] [address] [id number] [place] [address]- 1624 14 Dec, 2014 [facility] [address] [facility] [id number] [place] [address]- 5718 Dec, [facility] [id number] [address]- 0167 16 Nov, 2014 [facility] [id number] [place] [address], [place] [address]- 9220 Nov, [facility] [address] [facility] [id number] [place] [address], [place] [address]- 2552 Sep, [facility] [address] [facility] [id number] [place] [address], [place] [address]- 5656 Sep, [facility] [id number] [place] [address] 48568- 5391 Sep, [facility] [address] [facility] [id number] [place] [address]- 2658 Sep, [facility] [id number] [address]- 1128 Aug, [facility] [id number] [address]- 6436 Aug, [facility] [address] [address]- 6813 Aug, [facility] [address] [facility] [id number], [place] [address]- 9038 Aug, [facility] [address] [place] [address] [id number] [address]- 5345 Aug, [facility] [address] [facility] [id number] 5097 Aug, [facility] [address] [address] [id number] [address]- 4035 Aug, [facility] [place] [facility] [address] [id number] [place] [address]- 8228 Aug, [facility] [place] [facility] [address] [id number] [place] [address]- 1365 Aug, [facility] [place] [facility] [address] [id number] [place] [address]- 0109 Aug, [facility] [place] [facility] [address] [id number] [place] [address]- 9641 Aug, [facility] [place] [facility] [address] [id number] [place] [address]- 9229 Aug, [facility] [place] [facility] [address] [id number] [place] 9114 Aug, [facility] [place] [facility] [address] [id number] [place] [address]- 7309 Aug, [facility] [place] [facility] [address] [id number] [place] [address]- 2538 Jul, [facility] [place] [facility] [address] [id number] [place] [address]- 9305 Jul, [facility] [place] [facility] [address] [id number] [place] [address]- 2672 Jul, [facility] [place] [facility] [address] [id number] [place] [address]- 8908 Jul, [facility] [place] [facility] [address] [id number] [place] [address]- 6682 Jul, [facility] [place] [facility] [address] [id number] [place] [address]- 9544 Jul, [facility] [place] [facility] [address] [id number] [place] 8930 Jul, [facility] [place] [facility] [address] [id number] [place] [address]- 8382 Jun, [facility] [place] [facility] [address] [id number] [place] [address]- 1900 Jun, [facility] [place] [facility] [address] [id number] [place] [address]- 5026 Jun, [facility] [place] [facility] [address] [id number] [place] [address]- 2481 Jun, [facility] [place] [facility] [address] [id number] [place] 6741 Jun, [facility] [place] [facility] [address] [id number] [place] [address]- 7167 Jun, [facility] [place] [facility] [address] [id number] [place] [address]- 3960 Jun, [facility] [place] [facility] [address] [id number] [place] [address]- 5242 Jun, [facility] [place] [facility] [address] [id number] [place] [address]- 9776 Jun, [facility] [place] [facility] [address] [id number] [place] [address]- 3594 Jun, [facility] [place] [facility] [address] [id number] [place] [address]- 4119 Jun, [facility] [place] [facility] [address] [id number] [place] [address]- 5168 Jun, [facility] [place] [facility] [address] [id number], [place] [address]- 0012 Jun, [facility] [place] [facility] [address] [id number], [place] [address]- 9572 Jun, [facility] [place] [facility] [address] [id number], [place] [address]- 0215 May, [facility] [place] [facility] [address] [id number], [place] [address]- 5798 May, [facility] [place] [facility] [address] [id number], [place] [address]- 0553 May, [facility] [place] [facility] [address] [id number] [place] [address]- 0939 May, [facility] [place] [facility] [address] [id number] [place] [address]- 9691 May, [facility] [place] [facility] [address] [id number] [place] [address]- 9200 Apr, [facility] [place] [facility] [address] [id number] [place] [address]- 7273 Apr, [facility] [place] [facility] [address] [id number] [place] [address]- 4610 Apr, [facility] [place] [facility] [address] [id number] [place] [address]- 5775 Apr, [facility] [place] [facility] [address] [id number] [place] [address]- 3788 Mar, [facility] [place] [facility] [address] [id number] [place] [address]- 5624 Mar, [facility] [place] [facility] [address] [id number] [place] [address]- 7405 Mar, [facility] [place] [facility] [address] [id number] [place] [address]- 5881 Mar, [facility] [place] [facility] [address] [id number] [place] [address]- 7101 Mar, [facility] [place] [facility] [address] [id number] [place] [address]- 0407 Mar, [facility] [place] [facility] [address] [id number] [place] [address]- 9869 Mar, [facility] [place] [facility] [address] [id number] [place] 0361 Mar, [facility] [place] [facility] [address] [id number] [place] [address]- 8190 Feb, [facility] [place] [facility] [address] [id number] [place] [address]- 9006 Feb, [facility] [place] [facility] [address] [id number] [place] [address]- 9522 Feb, [facility] [place] [facility] [address] [id number] [place] [address]- 0466 Feb, [facility] [place] [facility] [address] [id number] [place] [address]- 8632 Feb, [facility] [place] [facility] [address] [id number] [place] [address]- 2975 Feb, [facility] [place] [facility] [address] [id number] [place] [address]- 1176 Feb, [facility] [place] [facility] [address] [id number] [place] [address]- 5835 Feb, [facility] [place] [facility] [address] [id number] [place] [address]- 8010 January, [facility] [place] [facility] [address] [id number] [place] [address]- 4682 January, [facility] [place] [facility] [address] [id number] [place] [address]- 5380 January, [facility] [place] [facility] [address] [id number] [place] [address]- 8237 January, [facility] [place] [facility] [address] [id number] [place] [address]- 9767 January, [facility] [place] [facility] [address] [id number] [place] [address]- 6176 January, [facility] [place] [facility] [address] [id number] [place] [address]- 2329 Dec, [facility] [place] [facility] [address] [id number] [place] [address]- 0718 Dec, [facility] [place] [facility] [address] [id number] [place] [address]- 6401 Dec, [facility] [place] [facility] [address] [id number] [place] [address]- 1212 Dec, [facility] [place] [facility] [address] [id number] [place] [address]- 6350 Dec, [facility] [place] [facility] [address] [id number] [place] 3959 Dec, [facility] [place] [facility] [address] [id number] [place] [address]- 7996 Dec, [facility] [place] [facility] [address] [id number] [place] [address]- 9336 Dec, [facility] [place] [facility] [address] [id number] [place] [address]- 4678 Oct, [facility] [place] [facility] [address] [id number] [place] [address]- 8927 Oct, [facility] [place] [facility] [address] [id number] [place] [address]- 2237 Aug, [facility] [place] [facility] [address] [id number] [place] [address]- 5199 Aug, [facility] [place] [facility] [address] [id number] [place] [address]- 2679 Jul, [facility] [place] [facility] [address] [id number] [place] [address]- 0286 Jul, [facility] [place] [facility] [address] [id number] [place] [address]- 0132 Mar, [facility] [place] [facility] [address] [id number] [place] [address]- 4033 Mar, [facility] [place] [facility] [address] [id number] [place] [address]- 7232 Mar, [facility] [place] [facility] [address] [id number] [place] [address]- 8096 Feb, [facility] [place] [facility] [address] [id number] [place] [address]- 2097 Feb, [facility] [place] [facility] [address] [id number] [place] [address]- 2546 Feb, [facility] [address] [id number] [place] [address]- 5476 January, [facility] [address] [id number] [place] [address]- 2546 January, [facility] [address] [id number] [place] [address] 2546 January, [facility] [address] [id number] [place] [address]- 2546 January, [facility] [address] [id number] [place] [address]- 6026 January, [facility] [address] [id number] [place] [address]- 7546 January, [facility] [address] [id number] [place] [address]- 9496 January, [facility] [address] [id number] [place] [address]- 0048 Dec, [facility] [address] [id number] [place] [address]- 1705 Dec, [facility] [address] [id number] [place] [address]- 7860 Dec, [facility] [address] [id number] [place] [address]- 9016 Dec, [facility] [address] [id number] [place] [address] Nov, [facility] [address] [id number] [place] [address] Nov, [facility] [address] [id number] [place] [address] Nov, [facility] [address] [id number] [place] [address] Oct, [facility] [address] [id number] [place] [address] Oct, [facility] [place] [facility] [address] [id number] [place] [address] Oct, [facility] [place] [facility] [address] [id number] [place] [address] Oct, [facility] [place] [facility] [address] [id number] [place] [address] Oct, [facility] [place] [facility] [address] [id number] [place] [address] Oct, [facility] [place] [facility] [address] [id number] [place] [address] Sep, [facility] [place] [facility] [address] [id number] [place] [address] Sep, [facility] [place] [facility] [address] [id number] [place] [address] Sep, [facility] [place] [facility] [address] [id number] [place] [address] Sep, [facility] [place] [facility] [address] [id number] [place] [address] Sep, [facility] [place] [facility] [address] [id number] [place] [address] Aug, [facility] [place] [facility] [address] [id number] [place] [address] Aug, [facility] [place] [facility] [address] [id number] [place] [address] Aug, [facility] [place] [facility] [address] [id number] [place] [address] Aug, [facility] [place] [facility] [address] [id number] [place] [address] Aug, [facility] [place] [facility] [address] [id number] [place] [address] Aug, [facility] [place] [facility] [address] [id number] [place] [address] Jul, [facility] [place] [facility] [address] [id number] [place] [address] 29 Jul, 2012 [facility] [place] [facility] [address] [id number] [place] [address] Jul, [facility] [place] [facility] [address] [id number] [place] [address] Jul, [facility] [place] [facility] [address] [id number] [place] [address] Jul, [facility] [place] [facility] [address] [id number] [place] [address] Jul, [facility] [place] [facility] [address] [id number] [place] [address]- [address] Jul, [facility] [place] [facility] [address] [id number] [place] [address] 15 Jul, 2012 [facility] [place] [facility] [address] [id number] [place] [address] 14 Jul, 2012 [facility] [place] [facility] [address] [id number] [place] [address] Jul, [facility] [place] [facility] [address] [id number] [place] [address] Jul, [facility] [place] [facility] [address] [id number] [place] [address] Jul, [facility] [place] [facility] [address] [id number] [place] [address] Jul, [facility] [place] [facility] [address] [id number] [place] [address] Jul, [facility] [place] [facility] [address] [id number] [place] [address] Jul, [facility] [place] [facility] [address] [id number] [place] [address]- [address] 08 Jul, 2012 [facility] [place] [facility] [address] [id number] [place] [address] Jul, [facility] [place] [facility] [address] [id number] [place] [address] Jul, [facility] [place] [facility] [address] [id number] [place] [address] Jul, [facility] [place] [facility] [address] [id number] [place] [address] Jun, [facility] [place] [facility] [address] [id number] [place] [address] Jun, [facility] [place] [facility] [address] [id number] [place] [address] May, [facility] [place] [facility] [address] [id number], [place] [address] Apr, [facility] [place] [facility] [address] [id number] [place] [address] Mar, [facility] [place] [facility] [address] [facility] [id number], [place] [address] Feb, [facility] [place] [facility] [address] [facility] [id number], [place] [address] Feb, [facility] [place] [facility] [address] [id number], [place] [address] Feb, [facility] [place] [facility] [address] [id number] [place] [address] January, [facility] [place] [facility] [address] [id number], [place] [address] January, [facility] [place] [facility] [address] [facility] [id number], [place] [address] Dec, [facility] [place] [facility] [address] [address] [id number], [place] [address] Dec, [facility] [place] [facility] [address] [id number] [place] [address] 08 Nov, 2011 [facility] [place] [facility] [address] [id number], [place] [address] Aug, [facility] [place] [facility] [address] [id number] [place] [address] 16 Jul, 2011 [facility] [place] [facility] [address] [id number] [place] [address] 16 Jul, 2011 [facility] [place] [facility] [address] [id number] [place] [address] 16 Jul, 2011 [facility] [place] [facility] [address] [id number] [place] [address] 12 Jun, 2011 [facility] [place] [facility] [address] [facility] [id number], [place] [address] 12 Jun, 2011 [facility] [place] [facility] [address] [id number], [place] [address] 14 May, 2011 [facility] [place] [facility] [address] [facility] [id number] [place] [address] 10 Apr, 2011 [facility] [place] [facility] [address] [facility] [id number], [place] [address] January, [facility] [place] [facility] [address] [id number], [place] [address] 13 Dec, 2010 [facility] [place] [facility] [address] [id number], [place] [address] 16 Nov, 2010 [facility] [place] [facility] [address] [id number], [place] [address] 10 Oct, 2010 [facility] [place] [facility] [address] [id number][place] [address] 14 Jun, 2010 [facility] [place] [facility] [address] [facility] [id number][place] [address] 14 Jun, 2010 [facility] [place] [facility] [address] [facility] [id number], [place] [address] Oct, [facility] [place] [address] [facility] [id number], [place] [address] Aug, [facility] [place] [address] [facility] [id number], [place] [address] Jul, [facility] [place] [address] [facility] [id number], [place] [address] Dec, IMMUNIZATIONS No Known Immunizations SOCIAL HISTORY Never Assessed REASON FOR VISIT N/V/D since 0000. started with stomach cramps then vomiting. ot is 24 weeks gestation. pt has not been having morning sickness. kbullardrn, thrown up 5 times and diarrhea X 2. PLAN OF CARE Activity Details Follow Up prn Reason: VITAL SIGNS Height 61 in 2017-03-16 Weight 187.6 lbs 2017-03-16 Temperature 97.5 degrees Fahrenheit 2017-03-16 Heart Rate 80 bpm 2017-03-16 Respiratory Rate 20 2017-03-16 BMI 35.44 kg/m2 2017-03-16 Blood pressure systolic 126 mmHg 2017-03-16 Blood pressure diastolic 74 mmHg 2017-03-16 MEDICATIONS Medication Instructions Dosage Frequency Start Date End Date Duration Status ProAir HFA 108 (90 Base) MCG/ACT Inhalation every 4 hrs 2 puffs as needed 4h Active Active RESULTS No Results PROCEDURES No Known procedures INSTRUCTIONS MEDICATIONS ADMINISTERED No Known Medications MEDICAL [...]
--- NOTE | 2017-12-16 19:19 | ED GI ---
General Chief Complaint: Abdominal/GI Problems Stated Complaint: NASUEA - [id number] Source of Information: Patient, Other (bf) Exam Limitations: No Limitations History of Present Illness Date Seen by Provider: Dec 16, 2017 Time Seen by Provider: 19:05 Initial Comments Patient presents to the ER by private conveyance with her significant other and a chief complaint for the last week she's been experiencing nausea. She is a at 7 weeks and 4 days by an ultrasound yesterday 7 weeks and 2 days by last menstrual period of October 24, 2017. She had no issues with her last is. She has no significant medical problems other than history of depression for which she used to take antidepressants but she has not taken them since getting first time. She quit smoking many years ago. She does not use alcohol or recreational drugs. She has tried Sprite and small sips of fluids but not able to tolerate fluids very well because of the nausea. She says she had a urinalysis done yesterday and while she was treated for yeast infection she had a clean urine so she does not want a UA today. She has also had a headache started up last day or so on the left side of her had constant. She has no history of migraine headaches. She has taken a couple Tylenol with minimal relief. She thinks it might also to do with neighbors moving a dog and next door. She has not taken any antihistamines yet. She has a history of asthma and an albuterol inhaler that she has not been using much lately she has not felt short of breath or wheezy. Allergies and Home Medications Allergies Coded Allergies: cefaclor (Unverified Allergy, Mild, 03/11/09) Uncoded Allergies: BEE'S (Allergy, Unknown, 07/09/14) Home Medications Albuterol Sulfate 1 Puff Puff, 2 PUFF IH Q4H PRN for AIR HUNGER, (Reported) 1 PUFF = 90 MCG Patient Home Medication List Home Medication List Reviewed: Yes Review of Systems Constitutional: No chills, No diaphoresis EENTM: No Blurred Vision, No Double Vision Respiratory: Denies Cough, Denies Shortness of Air Cardiovascular: Denies Chest Pain, Denies Edema Gastrointestinal: Denies Abdominal Pain, Denies Constipated, Denies Diarrhea, Nausea, Vomiting Genitourinary: Denies Burning, Denies Discharge Musculoskeletal: No back pain, No joint pain Skin: No pruritus, No rash Past Lcvzjra-Hbecmv-Ulvqnq Hx Patient Social History Alcohol Use: Denies Use Alcohol Beverage of Choice: Beer Recreational Drug Use: No Smoking Status: Former Smoker Type Used: Cigarettes Former Smoker, Quit: Oct 02, 2016 2nd Hand Smoke Exposure: No Recent Foreign Travel: No Contact w/Someone Who Travel: No Recent Hopitalizations: No Immunizations Up To Date Tetanus Booster (TDap): Unknown Date of Influenza Vaccine: Jun 23, 2017 Seasonal Allergies Seasonal Allergies: No Surgeries History of Surgeries: Yes (LT ANKLE, X 3) Surgeries: Section, Orthopedic Respiratory History of Respiratory Disorde: Yes Respiratory Disorders: Asthma Cardiovascular History of Cardiac Disorders: Yes Cardiac Disorders: Heart Murmur Neurological History of Neurological Disord: No Reproductive System Hx Reproductive Disorders: No Female Reproductive Disorders: Denies Genitourinary History of Genitourinary Disor: No Gastrointestinal History of Gastrointestinal Di: Yes Gastrointestinal Disorders: Gastroesophageal Reflux Musculoskeletal History of Musculoskeletal Dis: Yes Musculoskeletal Disorders: Chronic Back Pain Endocrine History of Endocrine Disorders: No HEENT History of HEENT Disorders: No Cancer History of Cancer: No Psychosocial History of Psychiatric Problem: Yes Behavioral Health Disorders: Depression Integumentary History of Skin or Integumenta: No Blood Transfusions History of Blood Disorders: No Adverse Reaction to a Blood Tr: No Family Medical History Significant Family History: No Pertinent Family Hx Family Medial History: Asthma 19 FATHER Cardiovascular disease G8 BROTHER G8 SISTER Hypertension 19 FATHER Physical Exam Vital Signs Capillary Refill : General Appearance: WD/WN, no apparent distress HEENT: PERRL/EOMI, normal ENT inspection, TMs normal, pharynx normal Neck: non-tender, supple, normal inspection Respiratory: chest non-tender, lungs clear, normal breath sounds, no respiratory distress, no accessory muscle use Cardiovascular: normal peripheral pulses, regular rate, rhythm, no edema Peripheral Pulses: 2+ Radial Pulses (R), 2+ Radial Pulses (L) Gastrointestinal: non tender, soft Neurologic/Psychiatric: alert, oriented x 3 Skin: normal color, warm/dry Progress/Results/Core Measures Results/Orders My Orders Orders - JAVIER GUILLEN Ua Culture If Indicated (12/16/17 19:03) Departure Impression Impression: Primary Impression: Nausea/vomiting in Additional Impression: Tension type headache, unspecified Disposition: 01 HOME, SELF-CARE Condition: Stable Departure-Patient Inst. Decision time for Depature: 19:15 Referrals: ZAYRA GOMEZ MD (PCP/Family) Primary Care Physician Patient Instructions: Nausea and Vomiting of (DC) Add. Discharge Instructions: After vomiting you can take a couple hours of GI rest. Don't drink or eat anything and then slowly return to some small sips of clear fluids and work your way back up to normal diet. For your first trimester nausea and vomiting the best drug to take is pyridoxine 25 mg every 6 hours as needed for nausea and vomiting. If you're having a headache may be related to your allergen exposure you can try and reduce the allergen exposure by cleaning the house, using nasal steroids such as fluticasone 1 puff each nostril daily as well as Zyrtec or Claritin one tablet 10 mg daily. If you're still having symptoms despite this you can take one tablet of Benadryl 25 mg every 6 hours as needed however this may cause drowsiness. For your headaches you may use 1000 mg of Tylenol every 8 hours as needed. Make an appointment to follow up with your OB provider. All discharge instructions reviewed with patient and/or family. Voiced understanding. Scripts Pyridoxine HCl (Pyridoxine HCl) 25 Mg Tablet 25 MG PO Q6H Y for NAUSEA/VOMITING-1ST LINE, #30 TAB 0 Refills Prov: JAVIER GUILLEN 12/16/17 Copy Copies To 1: ZAYRA GOMEZ MD, TITUS J Dec 16, 2017 19:19
[2017-12-16] MEDS ORDERED: PYRI25TA4 PO (19:21)
[2017-12-16 19:27] VITALS: BP 126/66
== END 2017-12-16 19:24 | disposition home or self-care (01) ==
LOC: EDUNIT# 18:44 → ER 18:45
DX: O21.9 Vomiting of pregnancy, unspecified (principal); O99.351 Diseases of the nervous system complicating pregnancy, first trimester; G43.909 Migraine, unspecified, not intractable, without status migrainosus; O99.611 Diseases of the digestive system complicating pregnancy, first trimester; K21.9 Gastro-esophageal reflux disease without esophagitis; O99.511 Diseases of the respiratory system complicating pregnancy, first trimester; J45.909 Unspecified asthma, uncomplicated; O99.341 Other mental disorders complicating pregnancy, first trimester; F32.9 Major depressive disorder, single episode, unspecified; Z3A.01 Less than 8 weeks gestation of pregnancy; Z87.891 Personal history of nicotine dependence; Z87.59 Personal history of other complications of pregnancy, childbirth and the puerperium; Z82.49 Family history of ischemic heart disease and other diseases of the circulatory system; Z79.01 Long term (current) use of anticoagulants; Z88.8 Allergy status to other drugs, medicaments and biological substances; Z91.030 Bee allergy status
CPT/HCPCS: 99282

== ENCOUNTER 2018-02-13 20:11 | Emergency (ER) | payer MEDICAID ==
[~2018-02-13] VITALS: Ht 152.4 cm; Wt 80.7 kg
[~2018-02-13 20:11] MED LIST changes: +PYRI25TA4 PO; +SERT50TA9
--- NOTE | 2018-02-13 21:28 | ED General ---
General Chief Complaint: Abdominal/GI Problems Stated Complaint: STUNG BY WASP,SOB,STUFFY NOSE, FEVER Nursing Triage Note: abdominal cramping, sore throat, diarrhea, bee sting Nursing Sepsis Screen: No Definite Risk Source of Information: Patient Exam Limitations: No Limitations History of Present Illness Date Seen by Provider: February 13, 2018 Time Seen by Provider: 21:27 Initial Comments To ER with nasal congestion since yesterday, sore throat since yesterday, no cough. She's had abdominal cramping and loose stools for about 1-1/2-2 weeks. She was stung by a bee to the medial right upper arm 4 hours ago. She is 15 weeks . Timing/Duration: Intermittent Severity: Moderate Allergies and Home Medications Allergies Coded Allergies: cefaclor (Unverified Allergy, Mild, 03/11/09) Uncoded Allergies: BEE'S (Allergy, Unknown, 07/09/14) Home Medications Albuterol Sulfate 1 Puff Puff, 2 PUFF IH Q4H PRN for AIR HUNGER, (Reported) 1 PUFF = 90 MCG Nitrofurantoin Monohyd/M-Cryst 100 Mg Capsule, 1 TAB PO BID Prescribed by: EMI GONZALEZ on 02/13/183 Prednisone 10 Mg Tab, 40 MG PO DAILY Prescribed by: PRINCE CALDERON on 02/05/18 0319 Pyridoxine HCl 25 Mg Tablet, 25 MG PO Q6H PRN for NAUSEA/VOMITING-1ST LINE Prescribed by: JAVIER GUILLEN on 12/16/17 1921 Patient Home Medication List Home Medication List Reviewed: Yes Review of Systems Constitutional: see HPI, chills; No fever; malaise EENTM: see HPI, nose congestion, throat pain Respiratory: no symptoms reported; No cough Cardiovascular: no symptoms reported Gastrointestinal: No abdominal pain; diarrhea; No nausea, No vomiting Genitourinary: no symptoms reported Musculoskeletal: no symptoms reported Skin: no symptoms reported Psychiatric/Neurological: No Symptoms Reported Hematologic/Lymphatic: No Symptoms Reported Past Anwjhqg-Vocbma-Nrnaqx Hx Patient Social History Alcohol Use: Denies Use Number of Drinks Today: AA Alcohol Beverage of Choice: Beer Recreational Drug Use: No Smoking Status: Former Smoker Type Used: Cigarettes Former Smoker, Quit: Oct 02, 2016 2nd Hand Smoke Exposure: No Recent Foreign Travel: No Contact w/Someone Who Travel: No Recent Infectious Disease Expo: No Recent Hopitalizations: No Immunizations Up To Date Tetanus Booster (TDap): Unknown Date of Influenza Vaccine: Jun 23, 2017 Seasonal Allergies Seasonal Allergies: No Past Medical History Surgeries: Yes (LT ANKLE, X 3) Section, Orthopedic Respiratory: Yes Asthma Cardiac: Yes Heart Murmur Neurological: No : No Reproductive Disorders: No Female Reproductive Disorders: Denies Genitourinary: No Gastrointestinal: Yes Gastroesophageal Reflux Musculoskeletal: Yes (chronic left ankle pain) Chronic Back Pain, Fractures Endocrine: No HEENT: No Cancer: No Psychosocial: Yes Depression Integumentary: No Blood Disorders: No Adverse Reaction/Blood Tranf: No Family Medical History Asthma 19 FATHER Cardiovascular disease G8 BROTHER G8 SISTER Hypertension 19 FATHER No Pertinent Family Hx Physical Exam Vital Signs Vital Signs - First Documented 02/13/18 21:05 Temp 97.7 Pulse 98 Resp 18 B/P (MAP) 108/60 (76) Pulse Ox 98 O2 Delivery Room Air Capillary Refill : Less Than 3 Seconds General Appearance: No Apparent Distress, WD/WN Eyes: Bilateral Eye Normal Inspection, Bilateral Eye PERRL HEENT: PERRL/EOMI, TMs Normal Neck: Full Range of Motion, Supple Respiratory: No Accessory Muscle Use, No Respiratory Distress Cardiovascular: Regular Rate, Rhythm, Normal Peripheral Pulses Gastrointestinal: Non Tender, Soft Extremity: Normal Capillary Refill, Normal Inspection Neurologic/Psychiatric: Alert, Oriented x3 Skin: Normal Color, Warm/Dry, Other (there is a palm sized wheel to the medial aspect right upper arm) Progress/Results/Core Measures Suspected Sepsis Recent Fever Within 48 Hours: No Infection Criteria Present: None New/Unexplained Altered Menta: No Sepsis Screen: No Definite Risk SIRS Temperature:97.7 Pulse: 98 Respiratory Rate: 18 Laboratory Tests 02/13/18 21:40: White Blood Count 10.1 Blood Pressure 108 /60 Mean: 76 Laboratory Tests 02/13/18 21:40: Creatinine 0.69, Platelet Count 169, Total Bilirubin 0.7 Results/Orders Lab Results Laboratory Tests Test 02/13/18 21:30 02/13/18 21:40 Range/Units Urine Color YELLOW Urine Clarity SLIGHTLY CLOUDY Urine pH 6 5-9 Urine Specific [place] 1.025 H 1.016-1.022 Urine Protein 2+ H NEGATIVE Urine Glucose (UA) NEGATIVE NEGATIVE Urine Ketones NEGATIVE NEGATIVE Urine Nitrite NEGATIVE NEGATIVE Urine Bilirubin NEGATIVE NEGATIVE Urine Urobilinogen 4 H NORMAL MG/DL Urine Leukocyte Esterase 2+ H NEGATIVE Urine RBC (Auto) NEGATIVE NEGATIVE Urine RBC NONE /HPF Urine WBC 5-10 H /HPF Urine Squamous Epithelial Cells 10-25 H /HPF Urine Crystals NONE /LPF Urine Bacteria FEW H /HPF Urine Casts NONE /LPF Urine Mucus NEGATIVE /LPF Urine Culture Indicated YES White Blood Count 10.1 4.3-11.0 10^3/uL Red Blood Count 3.94 L 4.35-5.85 10^6/uL Hemoglobin 12.5 11.5-16.0 G/DL Hematocrit 35 35-52 % Mean Corpuscular Volume 88 80-99 FL Mean Corpuscular Hemoglobin 32 25-34 PG Mean Corpuscular Hemoglobin Concent 36 32-36 G/DL Red Cell Distribution Width 14.0 10.0-14.5 % Platelet Count 169 130-400 10^3/uL Mean Platelet Volume 11.1 H 7.4-10.4 FL Neutrophils (%) (Auto) 80 H 42-75 % Lymphocytes (%) (Auto) 9 L 12-44 % Monocytes (%) (Auto) 8 0-12 % Eosinophils (%) (Auto) 3 0-10 % Basophils (%) (Auto) 0 0-10 % Neutrophils # (Auto) 8.1 H 1.8-7.8 X 10^3 Lymphocytes # (Auto) 0.9 L 1.0-4.0 X 10^3 Monocytes # (Auto) 0.8 0.0-1.0 X 10^3 Eosinophils # (Auto) 0.3 0.0-0.3 10^3/uL Basophils # (Auto) 0.0 0.0-0.1 10^3/uL Sodium Level 138 135-145 MMOL/L Potassium Level 3.8 3.6-5.0 MMOL/L Chloride Level 107 98-107 MMOL/L Carbon Dioxide Level 21 21-32 MMOL/L Anion Gap 10 5-14 MMOL/L Blood Urea Nitrogen 8 7-18 MG/DL Creatinine 0.69 0.60-1.30 MG/DL Estimat Glomerular Filtration Rate > 60 BUN/Creatinine Ratio 12 Glucose Level 98 70-105 MG/DL Calcium Level 9.0 8.5-10.1 MG/DL Total Bilirubin 0.7 0.1-1.0 MG/DL Aspartate Amino Transf (AST/SGOT) 14 5-34 U/L Alanine Aminotransferase (ALT/SGPT) 10 0-55 U/L Alkaline Phosphatase 61 40-136 U/L Total Protein 6.7 6.4-8.2 GM/DL Albumin 3.7 3.2-4.5 GM/DL My Orders Orders - EMI GONZALEZ APRN Cbc With Automated Diff (02/13/18 21:19) Comprehensive Metabolic Panel (02/13/18 21:19) Ua Culture If Indicated (02/13/18 21:19) Diphenhydramine Tablet (Benadryl Tablet) (02/13/18 21:30) Urine Culture (02/13/18 21:30) Medications Given in ED Current Medications Medications Dose Ordered Sig/Brook Route Start Time Stop Time Status Last Admin Dose Admin Diphenhydramine HCl 50 mg ONCE ONCE PO 02/13/18 21:30 02/13/18 21:31 DC 02/13/18 21:31 50 MG Vital Signs/I&O 02/13/18 21:05 Temp 97.7 Pulse 98 Resp 18 B/P (MAP) 108/60 (76) Pulse Ox 98 O2 Delivery Room Air Capillary Refill : Less Than 3 Seconds Blood Pressure Mean: 76 Departure Impression Primary Impression: Diarrhea Additional Impressions: Viral syndrome Urinary tract infection Wasp sting Disposition: 01 HOME, SELF-CARE Condition: Stable Departure-Patient Inst. Decision time for Depature: 22:22 Referrals: ZAYRA GOMEZ MD (PCP/Family) Primary Care Physician Patient Instructions: No Instuctions Given Add. Discharge Instructions: 1. Drink plenty of fluids 2. Benadryl 1-2 tablets every 4-6 hours as needed for congestion. Return to ER for any worsening follow-up with your doctor next week antibiotics as directed. All discharge instructions reviewed with patient and/or family. Voiced understanding. Scripts Nitrofurantoin Monohyd/M-Cryst (Macrobid 100 mg Capsule) 100 Mg Capsule 1 TAB PO BID, #14 CAP Prov: EMI GONZALEZ APRN 02/13/18 Work/School Note: Work Release Form Date Seen in the Emergency Department: February 13, 2018 Return to Work: February 14, 2018 EMI GONZALEZ APRN February 13, 2018 21:28
[2018-02-13] MEDS: diphenhydrAMINE 25 MG TAB (BENADRYL) PO ONE (21:31)
[2018-02-13 21:39] LABS: BILIRUBIN,URINE NEGATIVE (NEGATIVE); CLARITY,URINE SLIGHTLY CLOUDY; COLOR,URINE YELLOW; GLUCOSE, URINE (UA) NEGATIVE (NEGATIVE); KETONES,URINE NEGATIVE (NEGATIVE); LEUKOCYTE ESTERASE ,URINE 2+ (NEGATIVE); NITRITE,URINE NEGATIVE (NEGATIVE); PH,URINE 6 (5-9); PROTEIN,URINE 2+ (NEGATIVE); UROBILINOGEN,URINE 4 MG/DL (NORMAL)
[2018-02-13 21:48] LABS: BACTERIA,URINE FEW /HPF
[2018-02-13 22:01] LABS: BASOPHILS % (AUTO) 0 % (0-10); EOSINOPHILS # (AUTO) 0.3 10^3/uL (0.0-0.3); EOSINOPHILS % (AUTO) 3 % (0-10); HEMATOCRIT 35 % (35-52); HEMOGLOBIN 12.5 G/DL (11.5-16.0); LYMPHOCYTES # (AUTO) 0.9 X 10^3 (1.0-4.0); LYMPHOCYTES % (AUTO) 9 % (12-44); MEAN CORPUSCULAR HEMOGLOBIN 32 PG (25-34); MEAN CORPUSCULAR HGB CONC 36 G/DL (32-36); MEAN CORPUSCULAR VOLUME 88 FL (80-99); MEAN PLATELET VOLUME 11.1 FL (7.4-10.4); MONOCYTES # (AUTO) 0.8 X 10^3 (0.0-1.0); MONOCYTES % (AUTO) 8 % (0-12); NEUTROPHILS # (AUTO) 8.1 X 10^3 (1.8-7.8); NEUTROPHILS % (AUTO) 80 % (42-75); PLATELET COUNT 169 10^3/uL (130-400); RED BLOOD COUNT 3.94 10^6/uL (4.35-5.85); WHITE BLOOD COUNT 10.1 10^3/uL (4.3-11.0)
[2018-02-13 22:20] LABS: ALANINE AMINOTRANSFERASE 10 U/L (0-55); ALBUMIN 3.7 GM/DL (3.2-4.5); ALKALINE PHOSPHATASE 61 U/L (40-136); BILIRUBIN,TOTAL 0.7 MG/DL (0.1-1.0); BUN/CREATININE RATIO 12; CARBON DIOXIDE 21 MMOL/L (21-32); CHLORIDE 107 MMOL/L (98-107); CREATININE SERUM 0.69 MG/DL (0.60-1.30); GFR ESTIMATED > 60; GLUCOSE 98 MG/DL (70-105); POTASSIUM 3.8 MMOL/L (3.6-5.0); SODIUM 138 MMOL/L (135-145); TOTAL PROTEIN 6.7 GM/DL (6.4-8.2)
[2018-02-13] MEDS ORDERED: NITR-65 PO (22:23)
[2018-02-13 22:30] VITALS: BP 111/63
== END 2018-02-13 22:29 | disposition home or self-care (01) ==
LOC: EDUNIT# 20:11 → ER 20:12
DX: T63.461A Toxic effect of venom of wasps, accidental (unintentional), initial encounter (principal); R19.7 Diarrhea, unspecified; B34.9 Viral infection, unspecified; N39.0 Urinary tract infection, site not specified; J45.909 Unspecified asthma, uncomplicated; K21.9 Gastro-esophageal reflux disease without esophagitis; F32.9 Major depressive disorder, single episode, unspecified; Z88.8 Allergy status to other drugs, medicaments and biological substances; Z79.52 Long term (current) use of systemic steroids; Z82.49 Family history of ischemic heart disease and other diseases of the circulatory system; Z79.51 Long term (current) use of inhaled steroids; Z87.891 Personal history of nicotine dependence; Z87.59 Personal history of other complications of pregnancy, childbirth and the puerperium
CPT/HCPCS: 36415; 80053; 81000; 85025; 87088; 99283

== ENCOUNTER → 2018-02-18 | Outpatient (CLI) | payer MEDICAID ==
[~2018-02-18] MED LIST changes: +FLUT9.9S NS; +LORA10TA76 PO
--- NOTE | 2018-02-18 18:20 | Diagnostic Imaging Report ---
INDICATION: Size and dates. EXAMINATION: OB ultrasound. FINDINGS: Single live intrauterine of 17 weeks 3 days +/-1.5 weeks. Cardiac activity is seen with a rate of 143 beats per minute. The placenta is posterior with no previa. The amniotic fluid is normal. A complete survey was not performed but no gross abnormality of the fetus is seen. The current cervical length is 6.3 cm and is closed There is no adnexal mass or free fluid. IMPRESSION: There is a single live intrauterine of 17 weeks 3 days +/-1.5 weeks. Dictated by: Dictated on workstation # [id number]
== END ==
LOC: RAD 16:38
PROVIDERS: ATTEND Family Medicine
DX: Z34.92 Encounter for supervision of normal pregnancy, unspecified, second trimester (principal); Z3A.17 17 weeks gestation of pregnancy
CPT/HCPCS: 76805

== ENCOUNTER 2018-03-09 22:04 | Outpatient (CLI) | payer MEDICAID ==
[~2018-03-09] VITALS: Ht 152.4 cm; Wt 83.5 kg
[~2018-03-09 22:04] MED LIST changes: -FLUT9.9S NS; -LORA10TA76 PO
[2018-03-09 22:19] VITALS: BP 122/63
[2018-03-09 22:30] LABS: BILIRUBIN,URINE NEGATIVE (NEGATIVE); CLARITY,URINE SLIGHTLY CLOUDY; COLOR,URINE YELLOW; GLUCOSE, URINE (UA) NEGATIVE (NEGATIVE); KETONES,URINE NEGATIVE (NEGATIVE); LEUKOCYTE ESTERASE ,URINE 2+ (NEGATIVE); NITRITE,URINE NEGATIVE (NEGATIVE); PH,URINE 6 (5-9); PROTEIN,URINE 1+ (NEGATIVE); UROBILINOGEN,URINE 4 MG/DL (NORMAL)
[2018-03-09] MEDS ORDERED: FLUT9.9S NS (22:36)
[2018-03-09] MEDS ORDERED: LORA10TA76 PO (22:36)
[2018-03-09 22:38] LABS: BACTERIA,URINE MODERATE /HPF; SQUAMOUS EPITHELIAL CELL,UR >50 /HPF
[2018-03-09 23:04] LABS: BASOPHILS % (AUTO) 0 % (0-10); EOSINOPHILS # (AUTO) 0.2 10^3/uL (0.0-0.3); EOSINOPHILS % (AUTO) 3 % (0-10); HEMATOCRIT 31 % (35-52); HEMOGLOBIN 11.2 G/DL (11.5-16.0); LYMPHOCYTES # (AUTO) 2.1 X 10^3 (1.0-4.0); LYMPHOCYTES % (AUTO) 26 % (12-44); MEAN CORPUSCULAR HEMOGLOBIN 33 PG (25-34); MEAN CORPUSCULAR HGB CONC 36 G/DL (32-36); MEAN CORPUSCULAR VOLUME 91 FL (80-99); MEAN PLATELET VOLUME 10.1 FL (7.4-10.4); MONOCYTES # (AUTO) 0.8 X 10^3 (0.0-1.0); MONOCYTES % (AUTO) 10 % (0-12); NEUTROPHILS # (AUTO) 4.8 X 10^3 (1.8-7.8); NEUTROPHILS % (AUTO) 61 % (42-75); PLATELET COUNT 222 10^3/uL (130-400); RED BLOOD COUNT 3.42 10^6/uL (4.35-5.85); RED CELL DISTRIBUTION WIDTH 14.4 % (10.0-14.5); WHITE BLOOD COUNT 7.9 10^3/uL (4.3-11.0)
--- NOTE | 2018-03-12 11:53 | Physician Query-Final Dx ---
SEAN YU 03/12/18 1153: Clinic Account Progress/Dx Physician Query: Please give diagnosis Date of Service Mar 09, 2018 at 22:04 ZAYRA GOMEZ MD 03/13/18 0721: Clinic Account Progress/Dx DIAGNOSIS: Diagnosis 1. Abdominal pain--pelvic ligament stretch 2. IUP in 2nd trimester SEAN YU Mar 12, 2018 11:53 ZAYRA GOMEZ MD Mar 13, 2018 07:21
== END 2018-03-09 23:15 | disposition home or self-care (01) ==
LOC: LDRP 22:04 → WSo 22:04
PROVIDERS: ATTEND Family Medicine
DX: O99.89 Other specified diseases and conditions complicating pregnancy, childbirth and the puerperium (principal); R10.2 Pelvic and perineal pain; Z3A.20 20 weeks gestation of pregnancy
CPT/HCPCS: 36415; 81000; 85025; 99213

== ENCOUNTER 2018-03-30 20:58 | Observation (INO) | payer MEDICAID ==
[~2018-03-30] VITALS: Ht 162.6 cm; Wt 83.9 kg
[2018-03-30 00:45] VITALS: BP 130/76
[~2018-03-30 20:58] MED LIST changes: +FLUT9.9S NS; +LORA10TA76 PO
--- OUTSIDE RECORDS SUMMARY | 2018-03-30 21:06 | XMS REPORT ---
Author Author ТАТЬЯНА ANDREWS [facility] Address [address] [place] [address] Care Team Providers Care [employer] Name Role Phone DARRYL, ТАТЬЯНА Unavailable PROBLEMS Type Condition ICD9-CM Code FDD59-TJ Code Onset Dates Condition Status SNOMED Code Problem Irregular periods/menstrual cycles N92.6 Active 57748055 Problem Depression, unspecified depression type F32.9 Active 45137577 Problem Missed period N92.6 Active 70372230 Problem DANIELLA (generalized anxiety disorder) F41.1 Active 48573369 Problem Anemia, O90.81 Active 934282725 Problem Seasonal allergic rhinitis, unspecified allergic rhinitis trigger J30.2 Active 142115300 Problem Dysthymic disorder F34.1 Active 75871556 Problem Other headache syndrome G44.89 Active 883496986 ALLERGIES Substance Reaction Event Type Date Status Cefaclor Unknown Drug Allergy Jul, Active ENCOUNTERS Encounter Location Date Diagnosis [facility] [address] 65484- 1106 Feb, [facility] [id number] [place] [address] 90090 -9684 January, Seasonal allergic rhinitis, unspecified trigger J30.2 [facility] [id number] [place] [address] 33982 -4178 January, [facility] [id number] [place] [address] 32795 -3329 January, Viral gastroenteritis A08.4 [facility] [id number] [place] [address] 78346- 2754 January, [facility] [id number] [place] [address] 94246- 7579 January, care in first trimester Z34.91 [facility] [id number] [place] [address] 02162- 4103 January, [facility] [address] 03911 -1419 January, Left ankle pain, unspecified chronicity M25.572 [facility] [id number] [place] [address] 40910- 2830 January, [place] [address] 82550- 7089 January, Dysthymic disorder F34.1 and DANIELLA (generalized anxiety disorder) F41.1 [facility] [address] 29373 -2321 January, Impacted cerumen of both ears H61.23 [place] [address] 00459- 8481 Dec, [place] [address] 80186- 8323 Dec, in multigravida Z34.80 [place] [address] 01487- 0910 Dec, DANIELLA (generalized anxiety disorder) F41.1 and Dysthymic disorder F34.1 [place] [id number] [place] [address] 76651- 9303 Dec, [place] [id number] [place] [address] 66548- 0246 Nov, [place] [id number] [place] [address] 39842- 3768 Nov, [place] [address] 49730- 6517 Nov, Painful urination R30.9 ; Vaginal yeast infection B37.3 and Early stage of Z34.90 [place] [id number] [place] [address] 46234- 4098 Nov, in multigravida Z34.80 [place] [id number] [place] [address] 33060- 3493 Nov, Dysfunction of right eustachian tube H69.81 and Bilateral impacted cerumen H61.23 [facility] [id number] [place] [address] 88422- 1979 Nov, [place] [address] 96472- 9340 Nov, [place] [address] 62854- 9085 Nov, [facility] [address] 82967 -6139 Nov, Missed period N92.6 [place] [address] 96402- 2752 Sep, DANIELLA (generalized anxiety disorder) F41.1 and Dysthymic disorder F34.1 [facility] [id number] [place] [address] 93303 -7054 Aug, Acute nasopharyngitis J00 [place] [id number] [place] [address] 10403- 5675 Jul, Irregular periods/menstrual cycles N92.6 [place] [id number] [place] [address] 17041- 1344 Jul, Bilateral impacted cerumen H61.23 [place] [id number] [place] [address] 57039- 4225 Jul, DANIELLA (generalized anxiety disorder) F41.1 and Dysthymic disorder F34.1 [place] [id number] [place] [address] 39648- 1491 Jun, [place] [address] 36959- 6560 Jun, Dysthymic disorder F34.1 [place] [address] 64026- 1487 16 Jun, 2017 Anemia, O90.81 ; Lower abdominal pain R10.30 ; Allergic contact dermatitis due to adhesives L23.1 and Other headache syndrome G44.89 [place] [address] 21983- 4287 04 Jun, 2017 39 weeks gestation of Z3A.39 [place] [address] 06525- 7698 27 May, 2017 care in third trimester Z34.93 [facility] [place] [address] 79239 -0259 24 May, 2017 Acute seasonal allergic rhinitis, unspecified trigger J30.2 [place] [address] 22611- 1942 20 May, 2017 Normal in multigravida Z34.80 [facility] [place] [address] 97306 -8924 17 May, 2017 Urinary frequency R35.0 and Pain of round ligament N94.9 [place] [address] 46183- 8409 13 May, 2017 35 weeks gestation of Z3A.35 [place] [address] 86155- 3097 Apr, High risk sexual behavior Z72.51 and 33 weeks gestation of Z3A.33 [place] [address] 98176- 7360 Apr, care in third trimester Z34.93 [facility] [place] [address] 45084 -4003 Apr, Bilateral impacted cerumen H61.23 [place] [address] 05334- 9647 Apr, 30 weeks gestation of Z3A.30 and Encounter for immunization Z23 [facility] [id number] [place] [address] 90276- 5765 Mar, 28 weeks gestation of Z3A.28 [facility] [id number] [place] [address] 99394- 9372 Mar, [place] [address] 40659- 9093 Mar, [place] [address] 91284- 5346 Mar, [place] [address] 83278- 1105 Mar, 26 weeks gestation of Z3A.26 [facility] [address] [place] [address] 85210 -8492 Mar, Acute back pain M54.9 [place] [address] 04985- 4874 Feb, 24 weeks gestation of Z3A.24 [facility] [address] [place] [address] 22709 -8257 Feb, Lower abdominal pain R10.30 [facility] [address] [place] [id number] [place] [address] 75045 -5939 Feb, Gastroenteritis and colitis, viral A08.[address] 03956- 0659 14 Feb, 2017 care in second trimester Z34.[address] 67486- 6148 07 Feb, 2017 [facility] [address] 50553 -0828 04 Feb, 2017 Abscess L02.91 [facility] [address] [place] [address] 56694 -9551 Feb, Vaginal flavia B37.3 [place] [id number] [place] [address] 51694- 3604 January, 20 weeks gestation of Z3A.20 [place] [address] 31083- 6982 January, [facility] [place] [address] 62775 -4235 January, Seasonal allergic rhinitis, unspecified allergic rhinitis trigger J30.2 [facility] [place] [address] 70464 -3136 January, Dermatitis L30.9 and Bug bites, initial encounter W57.XXXA [place] [address] 56130- 2961 January, Sore throat J02.9 and Seasonal allergic rhinitis, unspecified allergic rhinitis trigger J30.2 [place] [address] 70554- 3686 January, 16 weeks gestation of Z3A.16 [place] [address] 64021- 3528 Dec, care in first trimester Z34.[address] 11703- 1081 Nov, care in first trimester Z34.91 and Normal in multigravida Z34.80 [facility] [id number] [place] [address] 22959 -6099 Oct, Nausea and vomiting during O21.9 [place] [address] 07720- 5970 Oct, [place] [address] 84339- 2048 Oct, [place] [address] 74213- 2747 Oct, Encounter for test, result unknown Z32.00 [place] [id number] [place] [address] 79667- 8540 Sep, Irregular periods/menstrual cycles N92.6 ; Sore throat J02.9 ; Nausea R11.0 and Right ear impacted cerumen H61.21 [facility] [place] [id number] [place] [address] 96585 -6110 Jul, Vaginal discharge N89.8 ; Other specified bacterial agents as the cause of diseases classified elsewhere B96.89 and Acute vaginitis N76.0 [place] [address] 53557- 1083 Jun, Depression, unspecified depression type F32.9 [place] [address] 40698- 8015 23 May, 2016 Vaginal candidiasis B37.3 [place] [address] 57084- 6663 20 May, 2016 Acute pharyngitis, unspecified etiology J02.9 [place] [address] 77686- 7567 19 May, 2016 Depression, unspecified depression type F32.9 [place] [id number] [place] [address] 46918- 7601 12 May, 2016 Depression, unspecified depression type F32.9 [place] [id number] [place] [address] 05195- 9609 May, Dysthymic disorder F34.1 [facility] [place] [id number] [place] [address] 48845 -4486 10 Apr, 2016 Acute suppurative otitis media of right ear without spontaneous rupture of tympanic membrane, recurrence not specified H66.001 [facility] [place] [id number] [place] [address] 04340 -5657 10 Mar, 2016 Herpes zoster without complication B02.9 [facility] [id number] [place] [address] 95682 -5450 Dec, Allergic rhinitis J30.9 [facility] [address] 54978 -1095 Dec, Lumbago M54.5 [facility] [address] 69914 -6501 Oct, Dysuria R30.0 and Urinary tract infection N39.0 [facility] [id number] [place] [address] 79621 -8212 Sep, Acute nasopharyngitis J00 and Strep pharyngitis J02.0 [place] [address] 91606- 0314 Jul, Upper respiratory tract infection, unspecified type J06.9 [place] [address] 37716- 0502 Jun, Irritable bowel syndrome without diarrhea K58.9 [place] [address] 92293- 0332 Jun, [place] [address] 14059- 6573 May, [place] [id number] [place] [address] 55572- 3647 May, [place] [id number] [place] [address] 76223- 4773 May, Otitis externa of left ear 380.10 [place] [id number] [place] [address] 46916- 6318 May, Pain in joint, ankle and foot 719.47 [place] [id number] [place] [address] 99813- 7002 Apr, Pain in joint, ankle and foot 719.47 [place] [address] 56104- 0652 Mar, Dysuria 788.1 and Incontinence in female 625.6 [facility] [id number] [place] [address] 884951- 7874 Feb, Plantar fasciitis of right foot 728.71 ; Ankle weakness 719.67 and Ankle pain, chronic 719.47 [facility] [address] 83338- 2556 Feb, [facility] [address] 57522- 1796 Feb, Belching 787.3 and Chest wall pain 786.52 [facility] [address] 90439- 5937 Dec, [facility] [id number] [place] [address] 71068- 9895 Dec, [facility] [address] 51890- 7037 Nov, [facility] [id number] [place] [address] 36948- 6618 Nov, [facility] [id number] [place] [address] 18087- 8942 Sep, [facility] [id number] [place] [address] 68780- 0874 Sep, [facility] [id number] [place] [address] 45574- 0860 Sep, [facility] [id number] [place] [address] 18993- 9095 Sep, [facility] [address] 70351- 2026 Aug, [facility] [id number] [place] [address] 26373- 7386 Aug, [facility] [address] 42190- 0160 Aug, [facility] [place] [facility] [address] [id number] [place] [address]- 5077 Aug, [facility] [place] [facility] [address] [id number] [place] 8693 Aug, [facility] [place] [facility] [address] [facility] [id number] [place] 0794 Aug, [facility] [place] [facility] [address] [id number] [place] [address]- 4638 Aug, [facility] [place] [facility] [address] [id number] [place] [address]- 9373 Aug, [facility] [place] [facility] [address] [id number] [place] [address]- 6712 Aug, [facility] [place] [facility] [address] [id number] [place] [address]- 0558 Aug, [facility] [place] [facility] [address] [id number] [place] [address]- 8726 Aug, [facility] [place] [facility] [address] [id number] [place] [address]- 5078 Aug, [facility] [place] [facility] [address] [id number] [place] [address]- 3873 Aug, [facility] [place] [facility] [address] [id number] [place] [address]- 9265 Aug, [facility] [place] [facility] [address] [id number], [place] [address]- 1614 Jul, [facility] [place] [facility] [address] [id number] [place] [address]- 7745 Jul, [facility] [place] [facility] [address] [id number] [place] [address]- 4068 Jul, [facility] [place] [facility] [address] [id number] [place] [address]- 9286 Jul, [facility] [place] [facility] [address] [id number] [place] [address]- 8676 Jul, [facility] [place] [facility] [address] [id number] [place] [address]- 0388 Jul, [facility] [place] [facility] [address] [id number] [place] [address]- 0837 Jul, [facility] [place] [facility] [address] [id number] [place] [address]- 2834 Jun, [facility] [place] [facility] [address] [id number] [place] [address]- 7708 Jun, [facility] [place] [facility] [address] [id number] [place] [address]- 6127 Jun, [facility] [place] [facility] [address] [id number] [place] [address]- 5888 Jun, [facility] [place] [facility] [address] [id number] [place] [address]- 5114 Jun, [facility] [place] [facility] [address] [id number] [place] [address]- 6748 Jun, [facility] [place] [facility] [address] [id number] [place] [address]- 9522 Jun, [facility] [place] [facility] [address] [id number] [place] [address]- 2757 Jun, [facility] [place] [facility] [address] [id number] [place] [address]- 8919 Jun, [facility] [place] [facility] [address] [id number] [place] [address]- 0108 Jun, [facility] [place] [facility] [address] [id number] [place] [address]- 4513 Jun, [facility] [place] [facility] [address] [id number] [place] [address]- 9336 Jun, [facility] [place] [facility] [address] [id number] [place] [address]- 0805 Jun, [facility] [place] [facility] [address] [id number] [place] [address]- 2129 Jun, [facility] [place] [facility] [address] [id number] [place] [address]- 6338 May, [facility] [place] [facility] [address] [id number] [place] [address]- 3924 May, [facility] [place] [facility] [address] [id number] [place] [address]- 3846 May, [facility] [place] [facility] [address] [id number] [place] [address]- 7726 May, [facility] [place] [facility] [address] [id number] [place] [address]- 7268 May, [facility] [place] [facility] [address] [id number] [place] [address]- 8696 Apr, [facility] [place] [facility] [address] [id number] [place] [address]- 7999 Apr, [facility] [place] [facility] [address] [id number] [place] [address]- 9249 Apr, [facility] [place] [facility] [address] [id number] [place] [address]- 9637 Apr, [facility] [place] [facility] [address] [id number] [place] [address]- 7585 Mar, [facility] [place] [facility] [address] [id number] [place] [address]- 3912 Mar, [facility] [place] [facility] [address] [id number] [place] [address]- 6638 Mar, [facility] [place] [facility] [address] [id number] [place] [address]- 7292 Mar, [facility] [place] [facility] [address] [id number] [place] [address]- 6187 Mar, [facility] [place] [facility] [address] [id number] [place] [address]- 2818 Mar, [facility] [place] [facility] [address] [id number] [place] [address]- 0086 Mar, [facility] [place] [facility] [address] [id number] [place] [address]- 4640 Mar, [facility] [place] [facility] [address] [id number] [place] [address]- 9534 Feb, [facility] [place] [facility] [address] [id number] [place] [address]- 6647 Feb, [facility] [place] [facility] [address] [id number] [place] [address]- 4468 Feb, [facility] [place] [facility] [address] [id number] [place] [address]- 5005 Feb, [facility] [place] [facility] [address] [id number] [place] [address]- 3252 Feb, [facility] [place] [facility] [address] [id number] [place] [address]- 4333 Feb, [facility] [place] [facility] [address] [id number] [place] [address]- 3343 Feb, [facility] [place] [facility] [address] [id number] [place] [address]- 0305 Feb, [facility] [place] [facility] [address] [id number] [place] [address]- 7642 January, [facility] [place] [facility] [address] [id number] [place] [address]- 8417 January, [facility] [place] [facility] [address] [id number] [place] [address]- 5791 January, [facility] [place] [facility] [address] [id number] [place] [address]- 8913 January, [facility] [place] [facility] [address] [id number] [place] [address]- 6987 January, [facility] [place] [facility] [address] [id number] [place] [address]- 6246 January, [facility] [place] [facility] [address] [id number] [place] [address]- 4839 Dec, [facility] [place] [facility] [address] [id number] [place] [address]- 1368 Dec, [facility] [place] [facility] [address] [id number] [place] [address]- 6567 Dec, [facility] [place] [facility] [address] [id number] [place] [address]- 4521 Dec, [facility] [place] [facility] [address] [id number] [place] [address]- 3191 Dec, [facility] [place] [facility] [address] [id number] [place] [address]- 8596 Dec, [facility] [place] [facility] [address] [id number] [place] [address]- 5780 Dec, [facility] [place] [facility] [address] [id number] [place] [address]- 7695 Dec, [facility] [place] [facility] [address] [id number] [place] [address]- 7671 Oct, [facility] [place] [facility] [address] [id number] [place] [address]- 6019 Oct, [facility] [place] [facility] [address] [id number] [place] [address]- 9488 Aug, [facility] [place] [facility] [address] [id number] [place] 4216 Aug, [facility] [place] [facility] [address] [id number] [place] [address]- 0217 Jul, [facility] [place] [facility] [address] [id number] [place] [address]- 6712 Jul, [facility] [place] [facility] [address] [id number] [place] [address]- 9972 Mar, [facility] [address] [id number] [place] [address]- 5417 Mar, [facility] [address] [id number] [place] [address]- 0376 Mar, [facility] [address] [id number] [place] [address]- 5012 Feb, [facility] [address] [id number] [place] [address] Feb, [facility] [address] [id number] [place] [address] Feb, [facility] [address] [id number] [place] [address] January, [facility] [address] [id number] [place] [address] January, [facility] [address] [id number] [place] [address] January, [facility] [address] [id number] [place] [address] January, [facility] [address] [id number] [place] [address] January, [facility] [address] [id number] [place] [address] January, [facility] [place] [facility] [address] [id number] [place] [address] January, [facility] [place] [facility] [address] [id number] [place] [address] Dec, [facility] [place] [facility] [address] [id number] [place] [address] Dec, [facility] [place] [facility] [address] [id number] [place] [address] Dec, [facility] [place] [facility] [address] [id number] [place] [address] Dec, [facility] [address] [id number] [place] [address] Nov, [facility] [address] [id number] [place] [address] Nov, [facility] [address] [id number] [place] [address] Nov, [facility] [address] [id number] [place] [address] Oct, [facility] [address] [id number] [place] [address] Oct, [facility] [address] [id number] [place] [address] Oct, [facility] [address] [id number] [place] [address] Oct, [facility] [address] [id number] [place] [address] Oct, [facility] [address] [id number] [place] [address] Oct, [facility] [address] [id number] [place] [address] Sep, [facility] [address] [id number] [place] [address] Sep, [facility] [address] [id number] [place] [address] Sep, [facility] [place] [facility] [address] [id number] [place] [address] Sep, [facility] [place] [facility] [address] [id number] [place] [address] Sep, [facility] [place] [place] [facility] [address] [id number] [place] [address] Aug, [facility] [place] [facility] [address] [id number] [place] [address] 13 Aug, 2012 [facility] [place] [facility] [address] [id number] [place] [address] 07 Aug, 2012 [facility] [place] [facility] [address] [id number] [place] [address] Aug, [facility] [place] [facility] [address] [id number] [place] [address] Aug, [facility] [place] [facility] [address] [id number] [place] [address] Aug, [facility] [place] [facility] [address] [id number] [place] [address] 29 Jul, 2012 [facility] [place] [facility] [address] [id number] [place] [address] 29 Jul, 2012 [facility] [place] [facility] [address] [id number] [place] [address] 29 Jul, 2012 [facility] [place] [facility] [address] [id number] [place] [address] 29 Jul, 2012 [facility] [place] [facility] [address] [id number] [place] [address] Jul, [facility] [place] [facility] [address] [id number], [place] [address] 20 Jul, 2012 [facility] [place] [facility] [address] [id number], [place] [address] 15 Jul, 2012 [facility] [place] [facility] [address] [id number] [place] [address] 15 Jul, 2012 [facility] [place] [facility] [address] [id number], [place] [address] 14 Jul, 2012 [facility] [place] [facility] [address] [id number] [place] [address] 12 Jul, 2012 [facility] [place] [facility] [address] [id number] [place] [address] Jul, [facility] [place] [facility] [address] [id number] [place] [address] Jul, [facility] [place] [facility] [address] [id number] [id number] [address] Jul, [facility] [place] [facility] [address] [facility] [id number] [place] [address] Jul, [facility] [place] [facility] [address] [id number] [place] [address] Jul, [facility] [place] [facility] [address] [id number] [place] [address] Jul, [facility] [place] [facility] [address] [id number] [place] [address] Jul, [facility] [place] [facility] [address] [facility] [id number] [place] [address] Jul, [facility] [place] [facility] [address] [id number] [place] [address] Jul, [facility] [place] [facility] [address] [id number] [place] [address] Jun, [facility] [place] [facility] [address] [facility] [id number] [place] [address] Jun, [facility] [place] [facility] [address] [id number] [place] [address] May, [facility] [place] [facility] [address] [id number] [place] [address] Apr, [facility] [place] [facility] [address] [id number] [place] [address] Mar, [facility] [place] [facility] [address] [facility] [id number] [place] [address] Feb, [facility] [place] [facility] [address] [facility] [id number] [place] [address] Feb, [facility] [place] [facility] [address] [id number] [place] [address] Feb, [facility] [place] [facility] [address] [id number] [place] [address] January, [facility] [place] [facility] [address] [id number] [place] [address] January, [facility] [place] [facility] [address] [id number] [place] [address] Dec, [facility] [place] [facility] [address] [id number] [place] [address] Dec, [facility] [place] [facility] [address] [id number] [place] [address] Nov, [facility] [place] [facility] [address] [id number] [place] [address] Aug, [facility] [place] [facility] [address] [id number] [place] [address] Jul, [facility] [place] [facility] [address] [id number] [place] [address] Jul, [facility] [place] [facility] [address] [id number] [place] [address] Jul, [facility] [place] [facility] [address] [id number] [place] [address] Jun, [facility] [place] [facility] [address] [id number] [place] [address] Jun, [facility] [place] [facility] [address] [id number] [place] [address] 14 May, 2011 [facility] [place] [facility] [address] [id number] [place] [address] Apr, [facility] [place] [facility] [address] [id number] [place] [address] January, [facility] [place] [facility] [address] [id number] [place] [address] 13 Dec, 2010 [facility] [address] [facility] [id number], [place] [address] Nov, [facility] [address] [id number], [place] [address] Oct, [facility] [address] [id number] [address] Jun, [facility] [id number] [address] Jun, [facility] [address] [id number], [place] [address] Oct, [facility] [id number], [place] [address] Aug, [facility] [id number], [place] [address] Jul, [facility] [address] [id number], [place] [address] Dec, IMMUNIZATIONS No Known Immunizations SOCIAL HISTORY Never Assessed REASON FOR VISIT intake PLAN OF CARE Activity Details Follow Up 4 Weeks Reason: f/u VITAL SIGNS Height 61 in 2017-08-07 Weight 183.5 lbs 2017-08-07 Heart Rate 76 bpm 2017-08-07 Respiratory Rate 20 2017-08-07 BMI 34.67 kg/m2 2017-08-07 Blood pressure systolic 126 mmHg 2017-08-07 Blood pressure diastolic 74 mmHg 2017-08-07 MEDICATIONS Medication Instructions Dosage Frequency Start Date End Date Duration Status Pristiq 25 MG Orally Once a day 1 tablet 24h Jul, 14 days Active Pristiq 50 mg Orally Once a day 1 tablet 24h Jul, 30 day(s) Active RESULTS No Results PROCEDURES No Known [...]
--- OUTSIDE RECORDS SUMMARY | 2018-03-30 21:07 | XMS REPORT ---
Author Author ZAYRA GOMEZ [facility] Address [address] [place] [address] Care Team Providers Care Therapist Respiratory Name Role Phone ZAYRA GOMEZ Unavailable PROBLEMS Type Condition ICD9-CM Code SML90-ZG Code Onset Dates Condition Status SNOMED Code Problem Irregular periods/menstrual cycles N92.6 Active 60133299 Problem Depression, unspecified depression type F32.9 Active 84727068 Problem Missed period N92.6 Active 30919931 Problem DANIELLA (generalized anxiety disorder) F41.1 Active 72569530 Problem Anemia, O90.81 Active 485584416 Problem Seasonal allergic rhinitis, unspecified allergic rhinitis trigger J30.2 Active 481226231 Problem Dysthymic disorder F34.1 Active 73010379 Problem Other headache syndrome G44.89 Active 477253863 ALLERGIES Substance Reaction Event Type Date Status Cefaclor Unknown Drug Allergy Jul, Active ENCOUNTERS Encounter Location Date Diagnosis [facility] [address] 54373- [address]303 Feb, [facility] [id number] [place] [address] 70305 -2034 January, Seasonal allergic rhinitis, unspecified trigger J30.2 [facility] [id number] [place] [address] 54237 -0044 January, [facility] [id number] [place] [address] 48156 -3165 January, Viral gastroenteritis A08.4 [facility] [address] 53234- 7828 January, [facility] [id number] [place] [address] 13384- 9682 January, care in first trimester Z34.91 [place] [id number] [place] [address] 15215- 1931 January, [facility] [address] 52437 -1532 January, Left ankle pain, unspecified chronicity M25.572 [place] [id number] [place] [address] 76141- 7159 January, [place] [address] 70555- 3792 January, Dysthymic disorder F34.1 and DANIELLA (generalized anxiety disorder) F41.1 [facility] [address] 08865 -6396 January, Impacted cerumen of both ears H61.23 [place] [address] 39941- 8059 Dec, [place] [address] 15380- 3322 Dec, in multigravida Z34.80 [place] [address] 23005- 6211 Dec, DANIELLA (generalized anxiety disorder) F41.1 and Dysthymic disorder F34.1 [place] [id number] [place] [address] 21768- 1062 Dec, [place] [id number] [place] [address] 71680- 7483 Nov, [place] [id number] [place] [address] 01694- 0785 Nov, [place] [address] 12793- 3596 Nov, Painful urination R30.9 ; Vaginal yeast infection B37.3 and Early stage of Z34.90 [place] [address] 45165- 6857 Nov, in multigravida Z34.80 [place] [id number] [place] [address] 40548- 2370 Nov, Dysfunction of right eustachian tube H69.81 and Bilateral impacted cerumen H61.23 [facility] [id number] [place] [address] 36647- 8754 Nov, [place] [address] 12738- 6790 Nov, [place] [id number] [place] [address] 45556- 8648 Nov, [facility] [id number] [place] [address] 48114 -2659 Nov, Missed period N92.6 [place] [address] 99224- 7845 Sep, DANIELLA (generalized anxiety disorder) F41.1 and Dysthymic disorder F34.1 [facility] [id number] [place] [address] 24267 -3792 Aug, Acute nasopharyngitis J00 [place] [id number] [place] [address] 65431- 4659 Jul, Irregular periods/menstrual cycles N92.6 [place] [id number] [place] [address] 71990- 0371 Jul, Bilateral impacted cerumen H61.23 [place] [id number] [place] [address] 67251- 3172 Jul, DANIELLA (generalized anxiety disorder) F41.1 and Dysthymic disorder F34.1 [place] [id number] [place] [address] 24619- 2494 Jun, [place] [address] 85942- 3356 Jun, Dysthymic disorder F34.1 [place] [id number] [place] [address] 03431- 5033 16 Jun, 2017 Anemia, O90.81 ; Lower abdominal pain R10.30 ; Allergic contact dermatitis due to adhesives L23.1 and Other headache syndrome G44.89 [place] [address] 14243- 3093 04 Jun, 2017 39 weeks gestation of Z3A.39 [place] [address] 44070- 0085 27 May, 2017 care in third trimester Z34.93 [facility] [place] [address] 84632 -4158 24 May, 2017 Acute seasonal allergic rhinitis, unspecified trigger J30.2 [place] [address] 39541- 2268 20 May, 2017 Normal in multigravida Z34.80 [facility] [place] [address] 67463 -5517 17 May, 2017 Urinary frequency R35.0 and Pain of round ligament N94.9 [place] [address] 58695- 6730 13 May, 2017 35 weeks gestation of Z3A.35 [place] [id number] [place] [address] 54939- 8987 Apr, High risk sexual behavior Z72.51 and 33 weeks gestation of Z3A.33 [place] [id number] [place] [address] 32615- 5033 Apr, care in third trimester Z34.93 [facility] [place] [address] 54437 -1283 Apr, Bilateral impacted cerumen H61.23 [place] [address] 66260- 6622 09 Apr, 2017 30 weeks gestation of Z3A.30 and Encounter for immunization Z23 [facility] [id number] [place] [address] 83722- 9794 Mar, 28 weeks gestation of Z3A.28 [facility] [id number] [place] [address] 66072- 9931 Mar, [place] [address] 42807- 2872 Mar, [place] [address] 88051- 2346 Mar, [place] [address] 65941- 6813 Mar, 26 weeks gestation of Z3A.26 [facility] [address] 13600 -0584 Mar, Acute back pain M54.9 [place] [address] 87065- 8077 Feb, 24 weeks gestation of Z3A.24 [facility] [address] [place] [address] 98091 -4431 27 Feb, 2017 Lower abdominal pain R10.30 [facility] [address] [place] [address] 91117 -1269 Feb, Gastroenteritis and colitis, viral A08.4 [place] [address] 48337- 2352 14 Feb, 2017 care in second trimester Z34.92 [place] [address] 52008- 5550 07 Feb, 2017 [facility] [address] 27972 -3270 04 Feb, 2017 Abscess L02.91 [facility] [address] [place] [address] 67466 -9739 Feb, Vaginal flavia B37.3 [place] [id number] [place] [address] 83613- 8288 January, 20 weeks gestation of Z3A.20 [place] [id number] [place] [address] 51018- 1891 January, [facility] [place] [address] 34489 -2454 January, Seasonal allergic rhinitis, unspecified allergic rhinitis trigger J30.2 [facility] [place] [address] 95945 -3814 January, Dermatitis L30.9 and Bug bites, initial encounter W57.XXXA [place] [address] 31740- 1212 January, Sore throat J02.9 and Seasonal allergic rhinitis, unspecified allergic rhinitis trigger J30.2 [place] [address] 42747- 6727 January, 16 weeks gestation of Z3A.16 [place] [id number] [place] [address] 47580- 7227 Dec, care in first trimester Z34.91 [place] [id number] [place] [address] 30729- 0564 Nov, care in first trimester Z34.91 and Normal in multigravida Z34.80 [facility] [place] [id number] [place] [address] 47308 -5981 Oct, Nausea and vomiting during O21.9 [place] [address] 73857- 8999 Oct, [place] [id number] [place] [address] 87035- 6608 Oct, [place] [address] 43120- 0677 Oct, Encounter for test, result unknown Z32.00 [place] [id number] [place] [address] 11878- 1961 Sep, Irregular periods/menstrual cycles N92.6 ; Sore throat J02.9 ; Nausea R11.0 and Right ear impacted cerumen H61.21 [facility] [place] [id number] [place] [address] 55950 -1737 Jul, Vaginal discharge N89.8 ; Other specified bacterial agents as the cause of diseases classified elsewhere B96.89 and Acute vaginitis N76.0 [place] [address] 18090- 6969 Jun, Depression, unspecified depression type F32.9 [place] [id number] [place] [address] 72680- 8677 23 May, 2016 Vaginal candidiasis B37.3 [place] [address] 87521- 5309 20 May, 2016 Acute pharyngitis, unspecified etiology J02.9 [place] [id number] [place] [address] 73823- 8121 19 May, 2016 Depression, unspecified depression type F32.9 [place] [id number] [place] [address] 09148- 7543 12 May, 2016 Depression, unspecified depression type F32.9 [place] [id number] [place] [address] 97013- 6579 May, Dysthymic disorder F34.1 [facility] [place] [id number] [place] [address] 25566 -6824 10 Apr, 2016 Acute suppurative otitis media of right ear without spontaneous rupture of tympanic membrane, recurrence not specified H66.001 [facility] [id number] [place] [address] 54424 -2560 10 Mar, 2016 Herpes zoster without complication B02.9 [facility] [id number] [place] [address] 96879 -0191 Dec, Allergic rhinitis J30.9 [facility] [address] 59597 -4546 Dec, Lumbago M54.5 [facility] [address] 36664 -4155 Oct, Dysuria R30.0 and Urinary tract infection N39.0 [facility] [id number] [place] [address] 86722 -4400 Sep, Acute nasopharyngitis J00 and Strep pharyngitis J02.0 [place] [address] 73206- 4531 Jul, Upper respiratory tract infection, unspecified type J06.9 [place] [address] 04460- 6607 Jun, Irritable bowel syndrome without diarrhea K58.9 [place] [address] 42958- 6266 Jun, [place] [address] 54908- 7672 May, [place] [id number] [place] [address] 88592- 8270 May, [place] [id number] [place] [address] 06437- 3602 May, Otitis externa of left ear 380.10 [place] [id number] [place] [address] 00266- 2392 04 May, 2015 Pain in joint, ankle and foot 719.47 [place] [id number] [place] [address] 53752- 2366 Apr, Pain in joint, ankle and foot 719.47 [place] [address] 96003- 2447 Mar, Dysuria 788.1 and Incontinence in female 625.6 [facility] [id number] [place] [address] 93838- 0376 Feb, Plantar fasciitis of right foot 728.71 ; Ankle weakness 719.67 and Ankle pain, chronic 719.47 [facility] [address] 83366- 2396 Feb, [facility] [address] 55703- 8203 Feb, Belching 787.3 and Chest wall pain 786.52 [facility] [address] 37251- 9875 Dec, [facility] [address] 37598- 8848 Dec, [facility] [address] 17875- 0138 Nov, [facility] [id number] [place] [address] 95791- 4948 Nov, [facility] [id number] [place] [address] [id number]- 5800 Sep, [facility] [id number] [place] [address] 45551- 5194 Sep, [facility] [id number] [place] [address] 32327- 3100 Sep, [facility] [id number] [place] [address] 49973- 3472 Sep, [facility] [id number] [place] [address] 83459- 0836 Aug, [facility] [id number] [place] [address] 15141- 2316 Aug, [facility] [id number] [place] [address] 60955- 7462 Aug, [facility] [place] [facility] [address] [id number] [place] [address]- 8897 Aug, [facility] [place] [facility] [address] [id number] [place] 1036 Aug, [facility] [place] [facility] [address] [facility] [id number] [place] 1812 Aug, [facility] [place] [facility] [address] [id number] [place] [address]- 2424 Aug, [facility] [place] [facility] [address] [id number] [place] [address]- 2992 Aug, [facility] [place] [facility] [address] [id number] [place] [address]- 9495 Aug, [facility] [place] [facility] [address] [id number] [place] [address]- 4208 Aug, [facility] [place] [facility] [address] [id number] [place] [address]- 3383 Aug, [facility] [place] [facility] [address] [id number] [place] [address]- 9792 Aug, [facility] [place] [facility] [address] [id number] [place] [address]- 4444 Aug, [facility] [place] [facility] [address] [id number] [address]- 0446 Aug, [facility] [place] [facility] [address] [id number], [place] [address]- 3673 Jul, [facility] [place] [facility] [address] [id number] [place] [address]- 9487 Jul, [facility] [place] [facility] [address] [id number] [place] [address]- 4743 Jul, [facility] [place] [facility] [address] [id number] [place] [address]- 7656 Jul, [facility] [place] [facility] [address] [id number] [place] [address]- 9034 Jul, [facility] [place] [facility] [address] [id number] [place]- 4498 Jul, [facility] [place] [facility] [address] [id number] [place] [address]- 0862 Jul, [facility] [place] [facility] [address] [id number] [place] 7401 Jun, [facility] [place] [facility] [address] [id number] [place] [address]- 1852 Jun, [facility] [place] [facility] [address] [id number] [place] [address]- 1347 Jun, [facility] [place] [facility] [address] [id number] [place] [address]- 7779 Jun, [facility] [place] [facility] [address] [id number] [place] [address]- 4094 Jun, [facility] [place] [facility] [address] [id number] [place] [address]- 6617 Jun, [facility] [place] [facility] [address] [id number] [place] [address]- 9526 Jun, [facility] [place] [facility] [address] [facility] [id number] [place] [address]- 7571 Jun, [facility] [place] [facility] [address] [id number] [place] [address]- 4794 Jun, [facility] [place] [facility] [address] [id number] [place] [address]- 5061 Jun, [facility] [place] [facility] [address] [id number] [place] [address]- 5215 Jun, [facility] [place] [facility] [address] [id number] [place] [address]- 8266 Jun, [facility] [place] [facility] [address] [id number] [place] [address]- 3288 Jun, [facility] [place] [facility] [address] [id number] [place] [address]- 2025 Jun, [facility] [place] [facility] [address] [id number] [place] [address]- 3714 May, [facility] [place] [facility] [address] [id number] [place] [address]- 8953 May, [facility] [place] [facility] [address] [id number] [place] [address]- 4247 May, [facility] [place] [facility] [address] [id number] [place] [address]- 8228 May, [facility] [place] [facility] [address] [id number] [place] [address]- 5160 May, [facility] [place] [facility] [address] [id number] [place] [address]- 3193 Apr, [facility] [place] [facility] [address] [id number] [place] [address]- 8690 Apr, [facility] [place] [facility] [address] [id number] [place] [address]- 4200 Apr, [facility] [place] [facility] [address] [id number] [place] [address]- 3207 Apr, [facility] [place] [facility] [address] [id number] [place] [address]- 8319 Mar, [facility] [place] [facility] [address] [id number] [place] [address]- 6166 Mar, [facility] [place] [facility] [address] [id number] [place] [address]- 2558 Mar, [facility] [place] [facility] [address] [id number] [place] [address]- 7821 Mar, [facility] [place] [facility] [address] [id number] [place] [address]- 0011 Mar, [facility] [place] [facility] [address] [id number] [place] [address]- 2193 Mar, [facility] [place] [facility] [address] [id number] [place] [address]- 9888 Mar, [facility] [place] [facility] [address] [id number] [place] [address]- 4159 Mar, [facility] [place] [facility] [address] [id number] [place] [address]- 2740 Feb, [facility] [place] [facility] [address] [id number] [place] [address]- 7975 Feb, [facility] [place] [facility] [address] [id number] [place] [address]- 2338 Feb, [facility] [place] [facility] [address] [id number] [place] [address]- 1549 Feb, [facility] [place] [facility] [address] [id number] [place] [address]- 9193 Feb, [facility] [place] [facility] [address] [id number] [place] [address]- 6670 Feb, [facility] [place] [facility] [address] [id number] [place] [address]- 8644 Feb, [facility] [place] [facility] [address] [id number] [place] [address]- 5257 Feb, [facility] [place] [facility] [address] [id number] [place] [address]- 6028 January, [facility] [place] [facility] [address] [id number] [place] [address]- 1493 January, [facility] [place] [facility] [address] [id number] [place] [address]- 7614 January, [facility] [place] [facility] [address] [id number] [place] [address]- 0063 January, [facility] [place] [facility] [address] [id number] [place] [address]- 4939 January, [facility] [place] [facility] [address] [id number] [place] [address]- 8281 January, [facility] [address] [id number] [place] [address]- 3814 Dec, [facility] [place] [facility] [address] [id number] [place] [address]- 1195 Dec, [facility] [address] [id number] [place] [address]- 3847 Dec, [facility] [place] [facility] [address] [id number] [place] [address]- 9023 Dec, [facility] [place] [facility] [address] [id number] [place] [address]- 2598 Dec, [facility] [place] [facility] [address] [id number] [place] [address]- 0225 Dec, [facility] [place] [facility] [address] [id number] [place] [address]- 1284 Dec, [facility] [address] [id number] [place] [address]- 6389 Dec, [facility] [place] [facility] [address] [id number] [place] [address]- 3971 Oct, [facility] [address] [id number] [place] [address]- 3724 Oct, [facility] [place] [facility] [address] [id number] [place] [address]- 2681 Aug, [facility] [place] [facility] [address] [id number] [place] [address] Aug, [facility] [place] [facility] [address] [id number] [place] [address] Jul, [facility] [place] [facility] [address] [id number] [place] [address] Jul, [facility] [place] [facility] [address] [id number] [place] [address] Mar, [facility] [address] [id number] [place] [address] Mar, [facility] [place] [facility] [address] [id number] [place] [address] Mar, [facility] [place] [facility] [address] [id number] [place] [address] Feb, [facility] [place] [facility] [address] [id number] [place] [address] Feb, [facility] [address] [id number] [place] [address] Feb, [facility] [place] [facility] [address] [id number] [place] [address] January, [facility] [place] [facility] [address] [id number] [place] [address] January, [facility] [place] [facility] [address] [id number] [place] [address] January, [facility] [place] [facility] [address] [id number] [place] [address] January, [facility] [place] [facility] [address] [id number] [place] [address] January, [facility] [place] [facility] [address] [id number] [place] [address] January, [facility] [place] [facility] [address] [id number] [place] [address] January, [facility] [place] [facility] [address] [id number] [place] [address] Dec, [facility] [place] [facility] [address] [id number] [place] [address] Dec, [facility] [place] [facility] [address] [id number] [place] [address] Dec, [facility] [place] [facility] [address] [id number] [place] [address] Dec, [facility] [address] [id number] [place] [address] Nov, [facility] [place] [facility] [address] [id number] [place] [address] Nov, [facility] [address] [id number] [place] [address] Nov, [facility] [place] [facility] [address] [id number] [place] [address] 254 Oct, [facility] [address] [id number] [place] [address] Oct, [facility] [place] [facility] [address] [id number] [place] [address] Oct, [facility] [address] [id number] [place] [address] Oct, [facility] [address] [id number] [place] [address] Oct, [facility] [address] [id number] [place] [address] 05 Oct, 2012 [facility] [address] [facility] [id number] [place] [address] Sep, [facility] [address] [id number] [place] [address] Sep, [facility] [address] [id number] [place] [address] Sep, [facility] [place] [facility] [address] [id number] [place] [address] Sep, [facility] [place] [facility] [address] [id number] [place] [address] Sep, [facility] [place] [facility] [address] [id number] [place] [address] Aug, [facility] [place] [facility] [address] [id number] [place] [address] 13 Aug, 2012 [facility] [place] [facility] [address] [id number] [place] [address] 07 Aug, 2012 [facility] [place] [facility] [address] [id number] [place] [address] Aug, [facility] [place] [facility] [address] [id number] [place] [address] Aug, [facility] [place] [facility] [address] [id number] [place] [address] Aug, [facility] [place] [facility] [address] [id number] [place] [address] 29 Jul, 2012 [facility] [place] [facility] [address] [id number] [place] [address] 29 Jul, 2012 [facility] [place] [facility] [address] [id number] [place] [address] 29 Jul, 2012 [facility] [place] [facility] [address] [id number] [place] [address] 29 Jul, 2012 [facility] [place] [facility] [address] [id number] [place] [address] Jul, [facility] [place] [facility] [address] [id number] [place] [address] 20 Jul, 2012 [facility] [place] [facility] [address] [id number] [address] 15 Jul, 2012 [facility] [place] [facility] [address] [id number] [place] [address]- [address] 15 Jul, 2012 [facility] [place] [facility] [address] [id number] [place] [address] 14 Jul, 2012 [facility] [place] [facility] [address] [id number] [place] [address]- [address] 12 Jul, 2012 [facility] [place] [facility] [address] [id number] [place] [address] Jul, [facility] [place] [facility] [address] [id number] [place] [address] Jul, [facility] [place] [facility] [address] [id number], [place] [address] Jul, [facility] [place] [facility] [address] [id number] [place] [address] Jul, [facility] [place] [facility] [address] [id number] [place] [address] Jul, [facility] [place] [facility] [address] [id number] [place] [address], [place] [address] Jul, [facility] [place] [facility] [address] [id number] [place] [address] Jul, [facility] [place] [facility] [address] [id number] [place] [address] Jul, [facility] [place] [facility] [address] [id number] [place] [address] Jul, [facility] [place] [facility] [address] [id number] [place] [address] Jun, [facility] [place] [facility] [address] [id number] [place] [address] Jun, [facility] [place] [facility] [address] [id number] [place] [address] May, [facility] [place] [facility] [address] [id number], [place] [address] Apr, [facility] [place] [facility] [address] [id number] [place] [address] Mar, [facility] [place] [facility] [address] [id number] [place] [address] Feb, [facility] [place] [facility] [address] [facility] [id number], [place] [address] Feb, [facility] [place] [facility] [address] [id number] [place] [address] Feb, [facility] [place] [facility] [address] [id number] [place] [address] January, [facility] [place] [facility] [address] [id number] [place] [address] January, [facility] [place] [facility] [address] [id number] [place] [address] Dec, [facility] [place] [facility] [address] [id number] [place] [address] Dec, [facility] [place] [facility] [address] [id number] [place] [address] Nov, [facility] [place] [facility] [address] [id number] [place] [address] Aug, [facility] [place] [facility] [address] [id number] [place] [address]461 Jul, [facility] [place] [facility] [address] [id number] [place] [address] Jul, [facility] [place] [facility] [address] [id number] [place] [address] Jul, [facility] [place] [facility] [address] [id number] [place] [address] Jun, [facility] [place] [facility] [address] [id number] [place] [address] 12 Jun, 2011 [facility] [place] [facility] [address] [id number] [place] [address] 14 May, 2011 [facility] [place] [facility] [address] [id number] [place] [address] 10 Apr, 2011 [facility] [place] [facility] [address] [id number] [place] [address] January, [facility] [place] [facility] [address] [id number] [place] [address] 13 Dec, 2010 [facility] [address] [facility] [id number], [place] [address] Nov, [facility] [id number], [place] [address] Oct, [facility] [id number], [place] [address] Jun, [facility] [id number], [place] [address] Jun, [facility] [id number], [place] [address] Oct, [facility] [id number], [place] [address] Aug, [facility] [id number], [place] [address] Jul, [facility] [address] [id number], [place] [address] Dec, IMMUNIZATIONS No Known Immunizations SOCIAL HISTORY Never Assessed REASON FOR VISIT OB-----NidattELAINA PLAN OF CARE Activity Details Follow Up prn Reason: VITAL SIGNS Height 61 in 2017-08-20 Weight 181 lbs 2017-08-20 Temperature 98.5 degrees Fahrenheit 2017-08-20 Heart Rate 80 bpm 2017-08-20 Respiratory Rate 20 2017-08-20 BMI 34.20 kg/m2 2017-08-20 Blood pressure systolic 102 mmHg 2017-08-20 Blood pressure diastolic 70 mmHg 2017-08-20 MEDICATIONS Medication Instructions Dosage Frequency Start Date End Date Duration Status Aviane 0.1-20 MG-MCG Orally Once a day 1 tablet 24h Jul, 28 day (s) Active Pristiq 25 MG Orally Once a day 1 tablet 24h Jul, 14 days Not- Taking Pristiq 50 mg Orally Once a day 1 tablet 24h Jul, 30 day(s) Active RESULTS Name Result Date Reference Range TEST, URINE (IN HOUSE) 2017-08-20 RESULTS negative Lot # [id number] Control + Exp date 12/20/18 PROCEDURES Procedure Date Ordered Result Body Site URINE TEST Aug 20, 2017 INSTRUCTIONS MEDICATIONS ADMINISTERED No Known Medications [...]
--- OUTSIDE RECORDS SUMMARY | 2018-03-30 21:08 | XMS REPORT ---
Author Author PELON HOSKINS [facility] Address [address] [place] [address] Care Team Providers Care Nurse Unit Manager Name Role Phone PELON HOSKINS Unavailable PROBLEMS Type Condition ICD9-CM Code [id number] Code Onset Dates Condition Status SNOMED Code Problem Depression, unspecified depression type F32.9 Active 32292882 Problem Seasonal allergic rhinitis, unspecified allergic rhinitis trigger J30.2 Active 255165349 Problem Irregular periods/menstrual cycles N92.6 Active 00664511 Problem Seasonal allergies J30.2 Active 231200471 Problem Missed period N92.6 Active 70133581 Problem Other headache syndrome G44.89 Active 789301641 Problem Anemia, O90.81 Active 786815667 Problem DANIELLA (generalized anxiety disorder) F41.1 Active 20026861 Problem Dysthymic disorder F34.1 Active 99071283 ALLERGIES Substance Reaction Event Type Date Status Cefaclor Unknown Drug Allergy Aug, Active ENCOUNTERS Encounter Location Date Diagnosis [facility] [id number] [place] [address] 04787- 1290 Mar, [facility] [id number] [place] [address] 24174- 4097 Feb, [facility] [id number] [place] [address] 07587 -1754 Feb, [facility] [id number] [place] [address] 23168- 7827 Feb, Normal in multigravida Z34.80 [facility] [id number] [place] [address] 47498- 4569 13 Feb, 2018 Painful urination R30.9 and Encounter for supervision of normal in second trimester Z34.92 [facility] [id number] [place] [address] 72962 -3926 07 Feb, 2018 Seasonal allergies J30.2 [facility] [id number] [place] [address] 81696- 5297 Feb, [facility] [id number] [place] [address] 32986- 5486 Feb, [facility] [address] 60878 -5414 January, Seasonal allergic rhinitis, unspecified trigger J30.2 [facility] [id number] [place] [address] 04456 -1213 January, [facility] [id number] [place] [address] 81767 -1040 January, Viral gastroenteritis A08.4 [facility] [id number] [place] [address] 21870- 2469 January, [facility] [id number] [place] [address] 34186- 3932 January, care in first trimester Z34.91 [facility] [id number] [place] [address] 22050- 3139 January, [facility] [id number] [place] [address] 38023 -7862 January, Left ankle pain, unspecified chronicity M25.572 [facility] [id number] [place] [address] 26858- 0135 January, [facility] [id number] [place] [address] 42475- 0466 January, Dysthymic disorder F34.1 and DANIELLA (generalized anxiety disorder) F41.1 [facility] [id number] [place] [address] 45976 -3250 January, Impacted cerumen of both ears H61.23 [facility] [address] [place] [address]- 8180 Dec, [facility] [id number] [place] [address] 03312- 5074 Dec, in multigravida Z34.80 [facility] [id number] [place] [address] 20608- 2033 Dec, DANIELLA (generalized anxiety disorder) F41.1 and Dysthymic disorder F34.1 [facility] [id number] [place] [address] 57840- 0508 Dec, [facility] [id number] [place] [address] 47103- 1454 Nov, [facility] [id number] [place] [address] 87950- 5100 Nov, [facility] [id number] [place] [address] 49490- 9880 Nov, Painful urination R30.9 ; Vaginal yeast infection B37.3 and Early stage of Z34.90 [facility] [id number] [place] [address] 08564- 3364 Nov, in multigravida Z34.80 [facility] [id number] [place] [address] 39333- 0415 Nov, Dysfunction of right eustachian tube H69.81 and Bilateral impacted cerumen H61.23 [facility] [id number] [place] [address] 06170- 8603 Nov, [facility] [id number] [place] [address] 24132- 4066 Nov, [facility] [id number] [place] [address] 80772- 2163 Nov, [facility] [id number] [place] [address] 31155 -7903 Nov, Missed period N92.6 [facility] [id number] [place] [address] 38538- 1428 Sep, DANIELLA (generalized anxiety disorder) F41.1 and Dysthymic disorder F34.1 [facility] [id number] [place] [address] 69971 -7492 Aug, Acute nasopharyngitis J00 [place] [address] 40692- 7311 Jul, Irregular periods/menstrual cycles N92.6 [place] [address] 42813- 7239 Jul, Bilateral impacted cerumen H61.23 [place] [address] 28059- 5106 Jul, DANIELLA (generalized anxiety disorder) F41.1 and Dysthymic disorder F34.1 [place] [address] 00979- 2354 Jun, [place] [address] 15310- 3517 Jun, Dysthymic disorder F34.1 [place] [address] 57141- 4002 Jun, Anemia, O90.81 ; Lower abdominal pain R10.30 ; Allergic contact dermatitis due to adhesives L23.1 and Other headache syndrome G44.89 [facility] [id number] [place] [address] 74555- 7656 Jun, 39 weeks gestation of Z3A.39 [place] [address] 54658- 3504 27 May, 2017 care in third trimester Z34.93 [facility] [id number] [place] [address] 64763 -8737 24 May, 2017 Acute seasonal allergic rhinitis, unspecified trigger J30.2 [place] [address] 16476- 4774 20 May, 2017 Normal in multigravida Z34.80 [facility] [address] [place] [address] 48364 -2236 17 May, 2017 Urinary frequency R35.0 and Pain of round ligament N94.9 [place] [address] 46504- 5603 May, 35 weeks gestation of Z3A.35 [place] [address] 08258- 2860 Apr, High risk sexual behavior Z72.51 and 33 weeks gestation of Z3A.[address] 69415- 9138 Apr, care in third trimester Z34.93 [facility] [place] [address] 22351 -0920 Apr, Bilateral impacted cerumen H61.23 [place] [address] 10259- 4914 Apr, 30 weeks gestation of Z3A.30 and Encounter for immunization Z23 [place] [address] 26132- 1100 Mar, 28 weeks gestation of Z3A.28 [place] [address] 35415- 1769 Mar, [place] [address] 67326- 1329 Mar, [place] [address] 83477- 6084 Mar, [place] [address] 05011- 8536 Mar, 26 weeks gestation of Z3A.26 [facility] [address] 36587 -2410 Mar, Acute back pain M54.9 [place] [id number] [place] [address] 85084- 9713 Feb, 24 weeks gestation of Z3A.24 [facility] [address] [place] [address] 74617 -9891 Feb, Lower abdominal pain R10.30 [facility] [address] [place] [address] 79087 -3736 Feb, Gastroenteritis and colitis, viral A08.[address] 55874- 4106 14 Feb, 2017 care in second trimester Z34.[address] 18161- 8143 07 Feb, 2017 [facility] [address] 82987 -1033 04 Feb, 2017 Abscess L02.91 [facility] [address] 81980 -2603 Feb, Vaginal flavia B37.[address] 11035- 1465 January, 20 weeks gestation of Z3A.20 [address] [id number] [place] [address] 91202- 3187 January, [facility] [address] 52225 -8456 January, Seasonal allergic rhinitis, unspecified allergic rhinitis trigger J30.2 [facility] [address] 82239 -8017 January, Dermatitis L30.9 and Bug bites, initial encounter W57.XXXA [address] 34220- 3527 January, Sore throat J02.9 and Seasonal allergic rhinitis, unspecified allergic rhinitis trigger J30.2 [place] [id number] [place] [address] 04296- 7963 January, 16 weeks gestation of Z3A.16 [place] [id number] [place] [address] 88938- 6082 Dec, care in first trimester Z34.91 [place] [address] 13308- 4895 Nov, care in first trimester Z34.91 and Normal in multigravida Z34.80 [facility] [place] [address] 78219 -6657 Oct, Nausea and vomiting during O21.9 [place] [address] 90731- 1169 Oct, [place] [address] 19421- 5448 Oct, [place] [address] 42958- 3473 Oct, Encounter for test, result unknown Z32.00 [place] [address] 10675- 3533 Sep, Irregular periods/menstrual cycles N92.6 ; Sore throat J02.9 ; Nausea R11.0 and Right ear impacted cerumen H61.21 [facility] [place] [id number] [place] [address] 13502 -8579 Jul, Vaginal discharge N89.8 ; Other specified bacterial agents as the cause of diseases classified elsewhere B96.89 and Acute vaginitis N76.0 [place] [id number] [place] [address] 28389- 8940 Jun, Depression, unspecified depression type F32.9 [place] [address] 78454- 9879 May, Vaginal candidiasis B37.3 [place] [id number] [place] [address] 10819- 3480 20 May, 2016 Acute pharyngitis, unspecified etiology J02.9 [place] [id number] [place] [address] 39903- 8198 19 May, 2016 Depression, unspecified depression type F32.9 [place] [address] 46137- 2432 12 May, 2016 Depression, unspecified depression type F32.9 [place] [id number] [place] [address] 95389- 0247 12 May, 2016 Dysthymic disorder F34.1 [facility] [id number] [place] [address] 31090 -2407 10 Apr, 2016 Acute suppurative otitis media of right ear without spontaneous rupture of tympanic membrane, recurrence not specified H66.001 [facility] [id number] [place] [address] 10017 -2007 Mar, Herpes zoster without complication B02.9 [facility] [address] 06530 -9702 Dec, Allergic rhinitis J30.9 [facility] [id number] [place] [address] 61205 -0069 Dec, Lumbago M54.5 [facility] [id number] [place] [address] 90399 -6413 18 Oct, 2015 Dysuria R30.0 and Urinary tract infection N39.0 [facility] [id number] [place] [address] 74159 -8339 Sep, Acute nasopharyngitis J00 and Strep pharyngitis J02.0 [place] [id number] [place] [address] 27291- 6131 Jul, Upper respiratory tract infection, unspecified type J06.9 [place] [id number] [place] [address] 77771- 1571 Jun, Irritable bowel syndrome without diarrhea K58.9 [place] [id number] [place] [address] 00637- 2296 Jun, [place] [id number] [place] [address] 37182- 7591 May, [place] [address] 58738- 2420 May, [place] [id number] [place] [address] 72977- 4747 May, Otitis externa of left ear 380.10 [place] [address] 58028- 7230 May, Pain in joint, ankle and foot 719.47 [place] [address] 53782- 7940 Apr, Pain in joint, ankle and foot 719.47 [place] [address] 07839- 0086 Mar, Dysuria 788.1 and Incontinence in female 625.6 [place] [id number] [place] [address] 01192- 6091 Feb, Plantar fasciitis of right foot 728.71 ; Ankle weakness 719.67 and Ankle pain, chronic 719.47 [place] [id number] [place] [address] 43789- 3815 Feb, [place] [id number] [place] [address] 34282- 3910 Feb, Belching 787.3 and Chest wall pain 786.52 [place] [id number] [place] [address] 89038- 3764 Dec, [place] [address] 78577- 5397 Dec, [facility] [place] [facility] [address] [id number] [place] [address]- 9392 Nov, [facility] [place] [facility] [address] [id number] [place] [address]- 1372 Nov, [facility] [place] [facility] [address] [id number] [place] [address]- 6958 Sep, [facility] [place] [facility] [address] [id number] [place] [address]- 5608 Sep, [facility] [place] [facility] [address] [id number] [place] [address]- 4701 Sep, [facility] [place] [facility] [address] [id number] [place] [address]- 9593 Sep, [facility] [place] [facility] [address] [id number] [place] [address]- 2931 Aug, [facility] [place] [facility] [address] [id number] [place] [address]- 2072 Aug, [facility] [place] [facility] [address] [id number] [place] [address]- 2175 Aug, [facility] [place] [facility] [address] [id number] [place] [address]- 0225 Aug, [facility] [place] [facility] [address] [id number] [place] [address]- 3777 Aug, [facility] [place] [facility] [address] [id number] [place] [address]- 8910 Aug, [facility] [place] [facility] [address] [id number] [place] [address]- 7461 Aug, [facility] [place] [facility] [address] [id number] [place] 8644 Aug, [facility] [place] [facility] [address] [id number] [place] [address]- 8085 Aug, [facility] [place] [facility] [address] [id number] [place] [address]- 2210 Aug, [facility] [place] [facility] [address] [id number] [place] [address]- 0432 Aug, [facility] [place] [facility] [address] [id number] [place] [address]- 7282 Aug, [facility] [place] [facility] [address] [id number] [place] [address]- 2758 Aug, [facility] [place] [facility] [address] [id number] [place] [address]- 3841 Aug, [facility] [place] [facility] [address] [id number] [place] [address]- 1808 Jul, [facility] [place] [facility] [address] [id number] [place] [address]- 3279 Jul, [facility] [place] [facility] [address] [id number] [place] [address]- 3439 Jul, [facility] [place] [facility] [address] [id number], [place] [address]- 6614 Jul, [facility] [place] [facility] [address] [id number] [place] [address]- 0560 Jul, [facility] [place] [facility] [address] [facility] [id number] [place] [address]- 1088 Jul, [facility] [place] [facility] [address] [id number] [place] [address]- 0753 Jul, [facility] [place] [facility] [address] [id number], [place] [address]- 4505 Jun, [facility] [place] [facility] [address] [id number] [place] [address]- 9338 Jun, [facility] [place] [facility] [address] [id number] [place] [address]- 0759 Jun, [facility] [place] [facility] [address] [id number], [place] [address]- 8324 Jun, [facility] [place] [facility] [address] [id number] [place] [address]- 0217 Jun, [facility] [place] [facility] [address] [id number] [place] [address]- 1857 Jun, [facility] [place] [facility] [address] [id number] [place] [address]- 5537 Jun, [facility] [place] [facility] [address] [id number] [place] [address]- 4439 Jun, [facility] [place] [facility] [address] [id number] [place] [address]- 3240 Jun, [facility] [place] [facility] [address] [id number] [place] [address]- 6881 Jun, [facility] [place] [facility] [address] [id number] [place] [address]- 5671 Jun, [facility] [place] [facility] [address] [id number] [place] [address]- 2234 Jun, [facility] [place] [facility] [address] [id number] [place] [address]- 1110 Jun, [facility] [place] [facility] [address] [id number] [place] [address]- 9200 Jun, [facility] [place] [facility] [address] [id number] [place] [address]- 9434 25 May, 2013 [facility] [place] [facility] [address] [id number] [place] [address]- 3382 24 May, 2013 [facility] [place] [facility] [address] [id number] [place] [address]- 9589 24 Sep, 2013 [facility] [place] [facility] [address] [id number] [place] [address]- 2546 05 Sep, 2013 [facility] [place] [facility] [address] [id number] [place] [address]- 9973 05 Sep, 2013 [facility] [place] [facility] [address] [id number] [place] [address]- 1650 Apr, [facility] [place] [facility] [address] [id number] [place] [address]- 9734 Apr, [facility] [place] [facility] [address] [id number] [place] [address]- 4979 Apr, [facility] [place] [facility] [address] [id number] [place] [address]- 3114 Apr, [facility] [place] [facility] [address] [id number] [place] [address]- 4557 Mar, [facility] [place] [facility] [address] [id number] [place] [address]- 1225 Mar, [facility] [place] [facility] [address] [id number] [place] [address]- 3328 Mar, [facility] [place] [facility] [address] [id number] [place] [address]- 5947 Mar, [facility] [place] [facility] [address] [id number] [place] [address]- 7521 Mar, [facility] [place] [facility] [address] [id number] [place] [address]- 8611 Mar, [facility] [place] [facility] [address] [id number] [place] [address]- 8962 Mar, [facility] [place] [facility] [address] [id number] [place] [address]- 7014 Mar, [facility] [place] [facility] [address] [id number] [place] [address]- 7200 Feb, [facility] [place] [facility] [address] [id number] [place] [address]- 9303 Feb, [facility] [place] [facility] [address] [id number] [place] [address]- 9643 Feb, [facility] [place] [facility] [address] [id number] [place] [address]- 9785 Feb, [facility] [place] [facility] [address] [id number] [place] [address]- 8231 Feb, [facility] [place] [facility] [address] [id number] [place] [address]- 0213 Feb, [facility] [place] [facility] [address] [id number] [place] [address]- 1904 Feb, [facility] [place] [facility] [address] [id number] [place] [address]- 1927 Feb, [facility] [place] [facility] [address] [id number] [place] [address]- 1783 January, [facility] [place] [facility] [address] [id number] [place] [address]- 3715 January, [facility] [place] [facility] [address] [id number] [place] [address]- 5461 January, [facility] [place] [facility] [address] [id number] [place] [address] January, [facility] [place] [facility] [address] [id number] [place] [address] January, [facility] [place] [facility] [address] [id number] [place] [address] January, [facility] [place] [facility] [address] [id number] [place] [address] Dec, [facility] [place] [facility] [address] [id number] [place] [address] Dec, [facility] [place] [facility] [address] [id number] [place] [address] Dec, [facility] [place] [facility] [address] [id number] [place] [address] Dec, [facility] [place] [facility] [address] [id number] [place] [address] Dec, [facility] [place] [facility] [address] [id number] [place] [address] Dec, [facility] [place] [facility] [address] [id number] [place] [address] Dec, [facility] [place] [facility] [address] [id number] [place] [address] Dec, [facility] [place] [facility] [address] [id number] [place] [address] Oct, [facility] [place] [facility] [address] [id number] [place] [address] Oct, [facility] [place] [facility] [address] [id number] [place] [address] Aug, [facility] [place] [facility] [address] [id number] [place] [address] Aug, [facility] [place] [facility] [address] [id number] [place] [address] Jul, [facility] [place] [facility] [address] [id number] [place] [address] Jul, [facility] [place] [facility] [address] [id number] [place] [address] Mar, [facility] [place] [facility] [address] [id number] [place] [address] Mar, [facility] [place] [facility] [address] [id number] [place] [address] Mar, [facility] [place] [facility] [address] [id number] [address] Feb, [facility] [place] [facility] [address] [id number] [place] [address] Feb, [facility] [place] [facility] [address] [id number] [place] [address] Feb, [facility] [place] [facility] [address] [id number] [place] [address] January, [facility] [place] [facility] [address] [id number] [place] [address] January, [facility] [address] [id number] [place] [address] January, [facility] [address] [id number] [place] [address] January, [facility] [address] [id number] [place] [address] January, [facility] [address] [id number] [place] [address] January, [facility] [address] [id number] [place] [address] January, [facility] [address] [id number] [place] [address] Dec, [facility] [address] [id number] [place] [address] Dec, [facility] [address] [id number] [place] [address] Dec, [facility] [address] [id number] [place] [address] Dec, [facility] [address] [id number] [place] [address] Nov, [facility] [address] [id number] [place] [address] Nov, [facility] [address] [id number] [place] [address] Nov, [facility] [address] [id number] [place] Oct, [facility] [address] [id number] [place] [address] Oct, [facility] [address] [id number] [place] [address] Oct, [facility] [facility] [address] [id number] [place] [address] Oct, [facility] [address] [id number] [place] [address] Oct, [facility] [address] [id number] [place] [address] Oct, [facility] [address] [id number] [place] [address] Sep, [facility] [address] [id number] [place] [address] Sep, [facility] [address] [id number] [place] [address] Sep, [facility] [address] [id number] [place] [address] Sep, [facility] [address] [id number] [place] [address] Sep, [facility] [address] [id number] [place] [address] Aug, [facility] [address] [id number] [place] [address] Aug, [facility] [address] [id number] [place] [address] Aug, [facility] [address] [id number] [place] [address] Aug, [facility] [address] [id number] [place] [address] Aug, [facility] [place] [facility] [address] [id number] [place] [address] Aug, [facility] [address] [id number] [place] [address] Jul, [facility] [address] [id number], [place] [address] Jul, [facility] [place] [facility] [address] [id number] [place] [address] 29 Jul, 2012 [facility] [place] [facility] [address] [id number] [place] [address] 29 Jul, 2012 [facility] [place] [facility] [address] [id number] [place] [address] Jul, [facility] [place] [facility] [address] [id number] [place] [address] Jul, [facility] [place] [facility] [address] [id number] [place] [address] 15 Jul, 2012 [facility] [place] [facility] [address] [id number] [place] [address] 15 Jul, 2012 [facility] [place] [facility] [address] [id number] [place] [address] 14 Jul, 2012 [facility] [place] [facility] [address] [id number] [place] [address] Jul, [facility] [place] [facility] [address] [id number] [place] [address] Jul, [facility] [place] [facility] [address] [id number] [place] [address] Jul, [facility] [place] [facility] [address] [id number], [place] [address] Jul, [facility] [place] [facility] [address] [id number], [place] [address] Jul, [facility] [place] [facility] [address] [id number], [place] [address] Jul, [facility] [place] [facility] [address] [id number] [place] [address] Jul, [facility] [place] [facility] [address] [id number] [place] [address] Jul, [facility] [place] [facility] [address] [id number] [place] [address] Jul, [facility] [address] [id number] [place] [address] Jul, [facility] [place] [facility] [address] [id number] [place] [address] Jun, [facility] [address] [id number] [place] [address] Jun, [facility] [place] [facility] [address] [id number] [place] [address] May, [facility] [address] [id number] [place] [address] Apr, [facility] [place] [facility] [address] [id number] [place] [address] Mar, [facility] [address] [id number] [place] [address] Feb, [facility] [address] [id number] [place] [address] Feb, [facility] [place] [facility] [address] [id number] [place] [address] Feb, [facility] [address] [id number] [place] [address] January, [facility] [place] [facility] [address] [id number] [place] [address] January, [facility] [address] [id number] [place] [address] Dec, [facility] [place] [facility] [address] [id number] [place] [address] Dec, [facility] [place] [facility] [address] [id number] [place] [address] Nov, [facility] [place] [facility] [address] [id number] [place] [address] Aug, [facility] [place] [facility] [address] [id number] [place] [address] 16 Jul, 2011 [facility] [place] [facility] [address] [id number] [place] [address]- [address] 16 Jul, 2011 [facility] [place] [facility] [address] [id number] [place] [address]- [address] 16 Jul, 2011 [facility] [place] [facility] [address] [id number] [place] [address]- [address] 12 Jun, 2011 [facility] [place] [facility] [address] [id number] [place] [address]- [address] 12 Jun, 2011 [facility] [place] [facility] [address] [id number] [place] [address]- [address] 14 May, 2011 [facility] [place] [facility] [address] [id number] [place] [address]- [address] 10 Apr, 2011 [facility] [place] [facility] [address] [id number] [place] [address] January, [facility] [place] [facility] [address] [id number] [place] [address] 13 Dec, 2010 [facility] [place] [facility] [address] [id number] [place] [address] 16 Nov, 2010 [facility] [place] [facility] [address] [id number] [place] [address]- [address] 10 Oct, 2010 [facility] [place] [facility] [address] [id number], [place] [address] 14 Jun, 2010 [facility] [place] [facility] [address] [id number] [place] [address]- [address] 14 Jun, 2010 [facility] [place] [facility] [address] [id number], [place] [address] 11 Oct, 2009 [facility] [place] [facility] [address] [id number] [place] [address]- [address] 03 Aug, 2009 [facility] [place] [facility] [address] [facility] [id number] [place] [address] Jul, [facility] [address] [facility] [id number] [place] [address] Dec, IMMUNIZATIONS No Known Immunizations SOCIAL HISTORY Never Assessed REASON FOR VISIT fatigue, ear pain and sore throat 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, Surgery on left ankle about 1 yr ago- having pain PLAN OF CARE Activity Details Follow Up if s/s not improving with PCP or in Clinic Reason: VITAL SIGNS Height 61 in 2017-09-20 Weight 180.2 lbs 2017-09-20 Temperature 97.5 degrees Fahrenheit 2017-09-20 Heart Rate 72 bpm 2017-09-20 Respiratory Rate 18 2017-09-20 BMI 34.04 kg/m2 2017-09-20 Blood pressure systolic 100 mmHg 2017-09-20 Blood pressure diastolic 70 mmHg 2017-09-20 MEDICATIONS Medication Instructions Dosage Frequency Start Date End Date Duration Status Ibuprofen 400 MG Orally Three times a day 1 tablet with food or milk as needed 8h Active Pristiq 25 MG Orally Once a day 1 tablet 24h Jul, 14 days Active Pristiq 50 mg Orally Once a day 1 tablet 24h Jul, 30 day(s) Active Aviane 0.1-20 MG-MCG Orally Once a day 1 tablet 24h Jul, 28 day (s) Not-Taking Tylenol 325 MG Orally every 6 hrs 2 capsules as needed 6h Active RESULTS No Results PROCEDURES No Known [...]
--- OUTSIDE RECORDS SUMMARY | 2018-03-30 21:10 | XMS REPORT ---
Author Author ТАТЬЯНА ANDREWS [facility] Address [address] [place] [address] Care Team Providers Care Pricing Consultant Name Role Phone DARRYL, ТАТЬЯНА Unavailable PROBLEMS Type Condition ICD9-CM Code FPU33-PG Code Onset Dates Condition Status SNOMED Code Problem Depression, unspecified depression type F32.9 Active 19693550 Problem Seasonal allergic rhinitis, unspecified allergic rhinitis trigger J30.2 Active 286248511 Problem Irregular periods/menstrual cycles N92.6 Active 16684741 Problem Seasonal allergies J30.2 Active 325684654 Problem Missed period N92.6 Active 12986728 Problem Other headache syndrome G44.89 Active 584462989 Problem Anemia, O90.81 Active 835653110 Problem DANIELLA (generalized anxiety disorder) F41.1 Active 65535723 Problem Dysthymic disorder F34.1 Active 87541521 ALLERGIES Substance Reaction Event Type Date Status Cefaclor Unknown Drug Allergy Sep, Active ENCOUNTERS Encounter Location Date Diagnosis [facility] [place] [id number] [place] [address] 27857- 4492 Mar, [facility] [place] [address] [id number] [address] 7351 20 Feb, 2018 Normal in multigravida Z34.80 [facility] [place] [id number] [place] [address] 46581- 4227 13 Feb, 2018 Painful urination R30.9 and Encounter for supervision of normal in second trimester Z34.92 [facility] [id number] [place] [address] 31713 -6417 07 Feb, 2018 Seasonal allergies J30.2 [facility] [place] [address] [id number] [address] 9083 07 Feb, 2018 [facility] [place] [id number] [place] [address] 52581- 3208 Feb, [facility] [id number] [place] [address] 70717 -9725 January, Seasonal allergic rhinitis, unspecified trigger J30.2 [facility] [id number] [place] [address] 74313 -4931 January, [facility] [address] 65242 -7557 January, Viral gastroenteritis A08.4 [facility] [place] [id number] [place] [address] 14156- 1560 January, [facility] [place] [id number] [place] [address] 06191- 8319 January, care in first trimester Z34.91 [place] [address] 74768- 0164 January, [facility] [id number] [place] [address] 17557 -7403 January, Left ankle pain, unspecified chronicity M25.572 [place] [id number] [place] [address] 68222- 6308 January, [facility] [place] [id number] [place] [address] 88087- 6780 January, Dysthymic disorder F34.1 and DANIELLA (generalized anxiety disorder) F41.1 [facility] [id number] [place] [address] 14906 -7326 January, Impacted cerumen of both ears H61.23 [facility] [place] [id number] [place] [address] 44984- 3012 Dec, [facility] [place] [id number] [place] [address] 94951- 5903 Dec, in multigravida Z34.80 [place] [id number] [place] [address] 01248- 8551 Dec, DANIELLA (generalized anxiety disorder) F41.1 and Dysthymic disorder F34.1 [place] [address] 26841- 5749 Dec, [place] [address] 17746- 0876 Nov, [place] [address] 46359- 4856 Nov, [place] [address] 87361- 4325 Nov, Painful urination R30.9 ; Vaginal yeast infection B37.3 and Early stage of Z34.90 [place] [address] 43004- 2837 Nov, in multigravida Z34.80 [place] [address] 42554- 5742 Nov, Dysfunction of right eustachian tube H69.81 and Bilateral impacted cerumen H61.23 [place] [id number] [place] [address] 06627- 7771 Nov, [place] [id number] [place] [address] 98280- 3712 Nov, [place] [address] 99932- 2216 Nov, [facility] [id number] [place] [address] 20167 -3369 Nov, Missed period N92.6 [place] [address] 88644- 6971 Sep, DANIELLA (generalized anxiety disorder) F41.1 and Dysthymic disorder F34.1 [facility] [id number] [place] [address] 21804 -0716 Aug, Acute nasopharyngitis J00 [place] [id number] [place] [address] 01397- 6714 Jul, Irregular periods/menstrual cycles N92.6 [place] [address] 15149- 3332 Jul, Bilateral impacted cerumen H61.[address] 94587- 4397 Jul, DANIELLA (generalized anxiety disorder) F41.1 and Dysthymic disorder F34.[address] 30472- 5408 Jun, [place] [address] 86004- 4720 Jun, Dysthymic disorder F34.[address] 10272- 4117 Jun, Anemia, O90.81 ; Lower abdominal pain R10.30 ; Allergic contact dermatitis due to adhesives L23.1 and Other headache syndrome G44.[address] 14057- 2206 Jun, 39 weeks gestation of Z3A.[address] 92969- 4063 27 May, 2017 care in third trimester Z34.93 [facility] [place] [id number] [place] [address] 75881 -5674 24 May, 2017 Acute seasonal allergic rhinitis, unspecified trigger J30.[address] 79126- 0992 20 May, 2017 Normal in multigravida Z34.80 [facility] [id number] [place] [address] 38923 -0282 17 May, 2017 Urinary frequency R35.0 and Pain of round ligament N94.9 [place] [id number] [place] [address] 37151- 7632 May, 35 weeks gestation of Z3A.35 [place] [id number] [place] [address] 21600- 2893 Apr, High risk sexual behavior Z72.51 and 33 weeks gestation of Z3A.33 [place] [address] 82786- 3155 Apr, care in third trimester Z34.93 [facility] N [address] 48278 -3104 Apr, Bilateral impacted cerumen H61.23 [place] [address] 94972- 2055 Apr, 30 weeks gestation of Z3A.30 and Encounter for immunization Z23 [place] [address] 68813- 8790 Mar, 28 weeks gestation of Z3A.28 [place] [address] 77692- 4841 Mar, [place] [address] 81055- 3212 Mar, [place] [id number] [place] [address] 51717- 1491 Mar, [place] [address] 66322- 6483 Mar, 26 weeks gestation of Z3A.26 [facility] [address] 80064 -8721 Mar, Acute back pain M54.9 [place] [id number] [place] [address] 26265- 8939 Feb, 24 weeks gestation of Z3A.24 [facility] [address] 36201 -0257 Feb, Lower abdominal pain R10.30 [facility] N [address] 28221 -8347 25 Feb, 2017 Gastroenteritis and colitis, viral A08.4 [place] [address] 12062- 4578 14 Feb, 2017 care in second trimester Z34.92 [place] [address] 36792- 7597 07 Feb, 2017 [facility] [address] 80933 -9959 04 Feb, 2017 Abscess L02.91 [facility] [place] [address] 33517 -9403 03 Feb, 2017 Vaginal flavia B37.[address] 76475- 3203 January, 20 weeks gestation of Z3A.20 [place] [address] 73474- 4169 January, [facility] [address] 43568 -1661 January, Seasonal allergic rhinitis, unspecified allergic rhinitis trigger J30.2 [facility] [address] 76327 -3366 January, Dermatitis L30.9 and Bug bites, initial encounter W57.XXXA [address] 25596- 3269 January, Sore throat J02.9 and Seasonal allergic rhinitis, unspecified allergic rhinitis trigger J30.2 [place] [address] 39879- 6601 January, 16 weeks gestation of Z3A.16 [place] [address] 03980- 7086 Dec, care in first trimester Z34.91 [place] [id number] [place] [address] 83530- 1267 Nov, care in first trimester Z34.91 and Normal in multigravida Z34.80 [facility] [address] [place] [address] 30521 -7566 Oct, Nausea and vomiting during O21.9 [place] [id number] [place] [address] 45058- 4961 Oct, [place] [address] 03200- 1063 Oct, [place] [id number] [place] [address] 82602- 5511 Oct, Encounter for test, result unknown Z32.00 [place] [id number] [place] [address] 25331- 1838 Sep, Irregular periods/menstrual cycles N92.6 ; Sore throat J02.9 ; Nausea R11.0 and Right ear impacted cerumen H61.21 [place] [address] [place] [address] 78863 -1811 Jul, Vaginal discharge N89.8 ; Other specified bacterial agents as the cause of diseases classified elsewhere B96.89 and Acute vaginitis N76.0 [place] [id number] [place] [address] 09081- 0762 Jun, Depression, unspecified depression type F32.9 [place] [id number] [place] [address] 60234- 1937 23 May, 2016 Vaginal candidiasis B37.3 [place] [id number] [place] [address] 80511- 4695 May, Acute pharyngitis, unspecified etiology J02.9 [place] [id number] [place] [address] 33353- 2847 May, Depression, unspecified depression type F32.9 [facility] [place] [id number] [place] [address] 86939- 4323 May, Depression, unspecified depression type F32.9 [place] [id number] [place] [address] 63183- 2944 May, Dysthymic disorder F34.1 [facility] [id number] [place] [address] 26957 -7934 Apr, Acute suppurative otitis media of right ear without spontaneous rupture of tympanic membrane, recurrence not specified H66.001 [facility] [id number] [place] [address] 42159 -6024 Mar, Herpes zoster without complication B02.9 [facility] [place] [id number] [place] [address] 78954 -3889 Dec, Allergic rhinitis J30.9 [facility] [id number] [place] [address] 21146 -7164 Dec, Lumbago M54.5 [facility] [address] [place] [id number] [place] [address] 27406 -3473 Oct, Dysuria R30.0 and Urinary tract infection N39.0 [facility] [id number] [place] [address] 53195 -3570 Sep, Acute nasopharyngitis J00 and Strep pharyngitis J02.0 [place] [id number] [place] [address] 92063- 2632 Jul, Upper respiratory tract infection, unspecified type J06.9 [place] [address] 26004- 8664 Jun, Irritable bowel syndrome without diarrhea K58.9 [place] [id number] [place] [address] 20154- 7726 Jun, [place] [address] [address]- 2080 May, [facility] [place] [id number] [place] [address] 80980- 7276 May, [facility] [place] [id number] [place] [address] 31768- 7589 May, Otitis externa of left ear 380.10 [facility] [place] [address] 94161- 7089 04 May, 2015 Pain in joint, ankle and foot 719.47 [facility] [place] [id number] [place] [address] 13257- 0630 Apr, Pain in joint, ankle and foot 719.47 [facility] [place] [id number] [place] [address] 44994- 6024 Mar, Dysuria 788.1 and Incontinence in female 625.6 [facility] [place] [id number] [place] [address] 67531- 7334 30 Feb, 2015 Plantar fasciitis of right foot 728.71 ; Ankle weakness 719.67 and Ankle pain, chronic 719.47 [facility] [place] [id number] [place] [address] 01030- 3810 Feb, [facility] [place] [id number] [place] [address] 93135- 4543 Feb, Belching 787.3 and Chest wall pain 786.52 [facility] [place] [address] [place] [address] 81039- 6276 Dec, [facility] [place] [id number] [place] [address] 42555- 3795 Dec, [facility] [place] [id number] [place] [address] 97351- 5076 16 Nov, 2014 [facility] [place] [id number] [place] [address] 81555- 7621 Nov, [facility] [place] [facility] [address] [id number] [place] [address]- 2914 Sep, [facility] [place] [facility] [address] [id number] [place] [address]- 2972 Sep, [facility] [place] [facility] [address] [id number] [place] [address]- 5611 Sep, [facility] [place] [facility] [address] [id number] [place] [address]- 2125 Sep, [facility] [place] [facility] [address] [id number] [place] [address]- 3876 Aug, [facility] [place] [facility] [address] [id number] [place] [address]- 7456 Aug, [facility] [place] [facility] [address] [id number] [place] [address]- 2494 Aug, [facility] [place] [facility] [address] [id number] [place] [address]- 3655 Aug, [facility] [place] [facility] [address] [id number] [place] [address]- 4404 Aug, [facility] [place] [facility] [address] [id number] [place] [address]- 6981 Aug, [facility] [place] [facility] [address] [id number] [place] [address]- 2497 Aug, [facility] [place] [facility] [address] [id number] [place] [address]- 5846 Aug, [facility] [place] [facility] [address] [id number] [place] [address]- 8494 Aug, [facility] [place] [facility] [address] [id number] [place] 2623 Aug, [facility] [place] [facility] [address] [id number] [place] [address]- 6263 Aug, [facility] [place] [facility] [address] [id number] [place] [address]- 3136 Aug, [facility] [place] [facility] [address] [id number] [place] [address]- 7362 Aug, [facility] [place] [facility] [address] [id number] [place] [address]- 8929 Aug, [facility] [place] [facility] [address] [facility] [id number] [place] 0141 Jul, [facility] [place] [facility] [address] [id number] [place] [address]- 2354 Jul, [facility] [place] [facility] [address] [id number] [place] [address]- 3596 Jul, [facility] [place] [facility] [address] [id number] [place] [address]- 3209 Jul, [facility] [place] [facility] [address] [id number] [place] [address]- 4289 Jul, [facility] [place] [facility] [address] [id number], [place] [address]- 6357 Jul, [facility] [place] [facility] [address] [id number] [place] [address]- 0755 Jul, [facility] [place] [facility] [address] [facility] [id number], [place] [address]- 2373 Jun, [facility] [place] [facility] [address] [id number], [place] [address]- 5062 Jun, [facility] [place] [facility] [address] [id number], [place] [address]- 3688 Jun, [facility] [place] [facility] [address] [id number] [place] 5551 Jun, [facility] [place] [facility] [address] [id number], [place] [address]- 7217 Jun, [facility] [place] [facility] [address] [id number] 3260 Jun, [facility] [place] [facility] [address] [id number] [place] [address]- 5896 08 Jun, 2014 [facility] [place] [facility] [address] [id number] [place] [address]- 8254 Jun, [facility] [place] [facility] [address] [id number] [place] [address]- 4730 Jun, [facility] [place] [facility] [address] [id number] [place] [address]- 3703 Jun, [facility] [place] [facility] [address] [id number] [place] [address]- 9499 Jun, [facility] [place] [facility] [address] [id number] [place] [address]- 5030 Jun, [facility] [place] [facility] [address] [id number] [place] [address]- 5414 Jun, [facility] [place] [facility] [address] [id number] [place] [address]- 6613 Jun, [facility] [place] [facility] [address] [id number] [place] [address]- 1672 May, [facility] [place] [facility] [address] [id number] [place] [address]- 0147 24 May, 2014 [facility] [place] [facility] [address] [id number] [place] [address]- 3943 24 May, 2014 [facility] [place] [facility] [address] [id number] [place] [address]- 7866 May, [facility] [place] [facility] [address] [id number] [place] [address]- 9981 May, [facility] [place] [facility] [address] [id number] [place] [address]- 7162 Apr, [facility] [place] [facility] [address] [id number] [place] [address]- 9487 Apr, [facility] [place] [facility] [address] [id number] [place] [address]- 0010 Apr, [facility] [place] [facility] [address] [id number] [place] [address]- 1809 Apr, [facility] [place] [facility] [address] [id number] [place] [address]- 6832 Mar, [facility] [place] [facility] [address] [id number] [place] [address]- 7199 Mar, [facility] [place] [facility] [address] [id number] [place] [address]- 1734 Mar, [facility] [place] [facility] [address] [id number] [place] [address]- 8936 Mar, [facility] [place] [facility] [address] [id number] [place] [address]- 0836 Mar, [facility] [place] [facility] [address] [id number] [place] [address]- 5273 Mar, [facility] [place] [facility] [address] [id number] [place] [address]- 3187 Mar, [facility] [place] [facility] [address] [id number] [place] [address]- 4157 Mar, [facility] [place] [facility] [address] [id number] [place] [address]- 3443 Feb, [facility] [place] [facility] [address] [id number] [place] [address]- 8669 Feb, [facility] [place] [facility] [address] [id number] [place] [address]- 6324 Feb, [facility] [place] [facility] [address] [id number] [place] [address]- 9864 Feb, [facility] [place] [facility] [address] [id number] [place] [address]- 3647 Feb, [facility] [place] [facility] [address] [id number] [place] [address]- 0504 Feb, [facility] [place] [facility] [address] [id number] [place] [address] Feb, [facility] [place] [facility] [address] [id number] [place] [address] Feb, [facility] [place] [facility] [address] [id number] [place] [address] January, [facility] [place] [facility] [address] [id number] [place] [address] January, [facility] [place] [facility] [address] [id number] [place] [address] January, [facility] [place] [facility] [address] [id number] [place] [address] January, [facility] [place] [facility] [address] [id number] [place] [address] January, [facility] [place] [facility] [address] [id number] [place] [address] January, [facility] [place] [facility] [address] [id number] [place] [address] Dec, [facility] [place] [facility] [address] [id number] [place] [address] Dec, [facility] [place] [facility] [address] [id number] [place] [address] Dec, [facility] [place] [facility] [address] [id number] [place] [address] Dec, [facility] [place] [facility] [address] [id number] [place] [address] Dec, [facility] [place] [facility] [address] [id number] [place] [address] Dec, [facility] [place] [facility] [address] [id number] [place] [address] Dec, [facility] [place] [facility] [address] [id number] [place] [address] Dec, [facility] [place] [facility] [address] [id number] [place] [address] Oct, [facility] [address] [id number] [place] [address] Oct, [facility] [place] [facility] [address] [id number] [place] [address] Aug, [facility] [address] [id number] [place] [address] Aug, [facility] [place] [facility] [address] [id number] [place] [address] Jul, [facility] [address] [id number] [place] [address] Jul, [facility] [address] [id number] [place] [address] Mar, [facility] [address] [id number] [place] [address] Mar, [facility] [address] [id number] [place] [address] Mar, [facility] [address] [id number] [place] [address] Feb, [facility] [address] [id number] [place] [address] Feb, [facility] [place] [facility] [address] [id number] [place] [address] Feb, [facility] [address] [id number] [place] [address] January, [facility] [place] [facility] [address] [id number] [place] [address] January, [facility] [place] [facility] [address] [id number] [place] [address] January, [facility] [place] [facility] [address] [id number] [place] [address] January, [facility] [address] [id number] [place] [address] January, [facility] [place] [facility] [address] [id number] [place] [address]99 January, [facility] [place] [facility] [address] [id number] [place] [address] January, [facility] [place] [facility] [address] [id number] [place] [address] Dec, [facility] [place] [facility] [address] [id number] [place] [address] Dec, [facility] [facility] [address] [id number] [place] [address] Dec, [facility] [place] [facility] [address] [id number] [place] [address] Dec, [facility] [place] [facility] [address] [id number] [place] [address] Nov, [facility] [place] [facility] [address] [id number] [place] [address] Nov, [facility] [place] [facility] [address] [id number] [place] [address] Nov, [facility] [place] [facility] [address] [id number] [place] [address] Oct, [facility] [place] [facility] [address] [id number] [place] [address] Oct, [facility] [place] [facility] [address] [id number] [place] [address] Oct, [facility] [place] [facility] [address] [id number] [place] [address] Oct, [facility] [place] [facility] [address] [id number] [place] [address] Oct, [facility] [place] [facility] [address] [id number] [place] [address] 05 Oct, 2012 [facility] [address] [id number] [place] [address] Sep, [facility] [address] [id number] [place] [address] Sep, [facility] [address] [id number] [place] [address] Sep, [facility] [address] [id number] [place] [address] Sep, [facility] [address] [id number] [place] [address] Sep, [facility] [address] [id number] [place] [address] Aug, [facility] [address] [id number] [place] [address] Aug, [facility] [address] [id number] [place] [address] 48[address] Aug, [facility] [address] [id number] [place] [address] Aug, [facility] [address] [id number] [place] [address] 9679 Aug, [facility] [address] [id number] [place] [address] 47[address] Aug, [facility] [address] [id number] [place] [address] Jul, [facility] [address] [id number] [place] [address] Jul, [facility] [address] [id number] [place] [address]- [address] Jul, [facility] [address] [id number] [place] [address] Jul, [facility] [address] [id number] [place] [address] Jul, [facility] [address] [id number] [place] [address] Jul, [facility] [facility] [address] [id number] [place] [address]- 8590 15 Jul, 2012 [facility] [address] [id number] [place] [address] 15 Jul, 2012 [facility] [address] [id number] [place] [address]- 1751 14 Jul, 2012 [facility] [address] [id number] [place] [address]- [address] Jul, [facility] [address] [id number] [place] [address] Jul, [facility] [address] [id number] [place] [address] Jul, [facility] [address] [id number] [place] [address] Jul, [facility] [address] [id number] [place] [address]- 1033 Jul, [facility] [address] [id number] [place] [address] 3567 Jul, [facility] [facility] [address] [id number], [place] [address] Jul, [facility] [address] [id number] [place] [address]- [address] Jul, [facility] [place] [address] [id number] [place] [address]- 6004 Jul, [facility] [address] [id number] [place] [address] Jul, [facility] [address] [id number] [place] [address]- [address]368 17 Jun, 2012 [facility] [address] [id number] [place] [address]- [address] 17 Jun, 2012 [facility] [address] [id number] [place] [address]- [address] May, [facility] [address] [id number] [place] [address] 8436 Apr, [facility] [address] [id number] [place] [address]- 1475 Mar, [facility] [address] [id number] [place] [address]- 8995 Feb, [facility] [address] [id number] [place] [address]- [address] Feb, [facility] [address] [id number] [place] [address] 245[address] Feb, [facility] [address] [id number] [place] [address]- 8944 January, [facility] [address] [id number] [place] [address]- [address] January, [facility] [address] [id number] [place] [address]- [address]397 Dec, [facility] [address] [id number] [place] [address]- 3040 Dec, [facility] [address] [id number] [place] [address]- [address]106 Nov, [facility] [address] [id number] [place] [address] Aug, [facility] [address] [id number] [place] [address] 254 Jul, [facility] [address] [id number] [place] [address]- 1076 Jul, [facility] [address] [id number] [place] [address]- [address]596 16 Jul, 2011 [facility] [place] [address] [id number] [place] [address]- [address]74 12 Jun, 2011 [facility] [place] [address] [id number] [place] [address]- 5429 12 Jun, 2011 [facility] [place] [address] [id number] [place] [address]- 9366 14 May, 2011 [facility] [place] [address] [id number] [place] [address]- 9879 10 Apr, 2011 [facility] [place] [address] [id number] [place] [address]- [address]117 January, [facility] [place] [address] [facility] [id number] [place] [address]- [address] 13 Dec, 2010 [facility] [place] [address] [facility] [id number] [place] [address]- 9648 16 Nov, 2010 [facility] [place] [address] [facility] [id number] [place] [address]- 3038 10 Oct, 2010 [facility] [place] [address] [facility] [id number], [place] [address] 14 Jun, 2010 [facility] [place] [address] [facility] [id number], [place] [address]- [address]88 14 Jun, 2010 [facility] [place] [address] [facility] [id number], [place] [address]80 11 Oct, 2009 [facility] [place] [address] [facility] [id number][place] [address] 03 Aug, 2009 [facility] [place] [address] [facility] [id number] [address] Jul, [facility] [place] [address] [facility] [id number], [place] [address] 17 Dec, 2008 IMMUNIZATIONS No Known Immunizations SOCIAL HISTORY Never Assessed REASON FOR VISIT madison/darius Haley RN PLAN OF CARE Activity Details Follow Up 4 Weeks Reason: f/u VITAL SIGNS Height 61 in 2017-10-07 Weight 183 lbs 2017-10-07 BMI 34.57 kg/m2 2017-10-07 Blood pressure systolic 110 mmHg 2017-10-07 Blood pressure diastolic 68 mmHg 2017-10-07 MEDICATIONS Medication Instructions Dosage Frequency Start Date End Date Duration Status Zoloft 50 mg Orally Once a day 1 tablet 24h Sep, 30 day(s) Active RESULTS No Results PROCEDURES [...]
--- OUTSIDE RECORDS SUMMARY | 2018-03-30 21:11 | XMS REPORT ---
Author Author TYE HERZOG [facility] Address [address] [place] [address] Care Team Providers Care Wax Room Supervisor Name Role Phone TYE HERZOG Unavailable PROBLEMS Type Condition ICD9-CM Code DBL65-WX Code Onset Dates Condition Status SNOMED Code Problem Irregular periods/menstrual cycles N92.6 Active 66379221 Problem Depression, unspecified depression type F32.9 Active 97063859 Problem Missed period N92.6 Active 36902047 Problem DANIELLA (generalized anxiety disorder) F41.1 Active 13865313 Problem Anemia, O90.81 Active 322889435 Problem Seasonal allergic rhinitis, unspecified allergic rhinitis trigger J30.2 Active 877854280 Problem Dysthymic disorder F34.1 Active 28416236 Problem Other headache syndrome G44.89 Active 783787170 ALLERGIES Substance Reaction Event Type Date Status Cefaclor Unknown Drug Allergy Jul, Active ENCOUNTERS Encounter Location Date Diagnosis [facility] [address] [address]82- [address]306 Feb, [facility] [id number] [place] [address] 19991 -1720 January, Seasonal allergic rhinitis, unspecified trigger J30.2 [facility] [id number] [place] [address] 95367 -5808 January, [facility] [id number] [place] [address] 36920 -1570 January, Viral gastroenteritis A08.4 [facility] [address] 00011- 0143 January, [facility] [id number] [place] [address] 24562- 9513 January, care in first trimester Z34.91 [facility] [id number] [place] [address] 40251- 2882 January, [facility] [id number] [place] [address] 33151 -4144 January, Left ankle pain, unspecified chronicity M25.572 [facility] [id number] [place] [address] 05664- 3594 January, [place] [address] 08962- 9577 January, Dysthymic disorder F34.1 and DANIELLA (generalized anxiety disorder) F41.1 [facility] [address] 24668 -1549 January, Impacted cerumen of both ears H61.23 [place] [id number] [place] [address] 77916- 8143 Dec, [place] [address] 92913- 0305 Dec, in multigravida Z34.80 [place] [address] 18172- 3785 Dec, DANIELLA (generalized anxiety disorder) F41.1 and Dysthymic disorder F34.1 [place] [id number] [place] [address] 96843- 8573 Dec, [place] [id number] [place] [address] 07807- 9884 Nov, [place] [id number] [place] [address] 05291- 3631 Nov, [place] [address] 53783- 8056 Nov, Painful urination R30.9 ; Vaginal yeast infection B37.3 and Early stage of Z34.90 [place] [address] 49328- 3805 Nov, in multigravida Z34.80 [place] [id number] [place] [address] 20825- 5339 Nov, Dysfunction of right eustachian tube H69.81 and Bilateral impacted cerumen H61.23 [facility] [id number] [place] [address] 09897- 4204 Nov, [facility] [address] 27887- 8194 Nov, [place] [id number] [place] [address] 97515- 5378 Nov, [facility] [address] 78403 -4204 Nov, Missed period N92.6 [place] [address] 35083- 3725 Sep, DANIELLA (generalized anxiety disorder) F41.1 and Dysthymic disorder F34.1 [facility] [id number] [place] [address] 62505 -6467 Aug, Acute nasopharyngitis J00 [place] [id number] [place] [address] 96938- 5158 Jul, Irregular periods/menstrual cycles N92.6 [place] [id number] [place] [address] 17240- 7925 Jul, Bilateral impacted cerumen H61.23 [place] [id number] [place] [address] 13783- 8823 Jul, DANIELLA (generalized anxiety disorder) F41.1 and Dysthymic disorder F34.1 [place] [id number] [place] [address] 21816- 7013 Jun, [place] [id number] [place] [address] 78556- 4309 Jun, Dysthymic disorder F34.1 [place] [id number] [place] [address] 99581- 2763 16 Jun, 2017 Anemia, O90.81 ; Lower abdominal pain R10.30 ; Allergic contact dermatitis due to adhesives L23.1 and Other headache syndrome G44.89 [place] [address] 42582- 5872 04 Jun, 2017 39 weeks gestation of Z3A.39 [place] [address] 93913- 7609 27 May, 2017 care in third trimester Z34.93 [facility] [place] [address] 00705 -9508 24 May, 2017 Acute seasonal allergic rhinitis, unspecified trigger J30.2 [place] [address] 76712- 2031 20 May, 2017 Normal in multigravida Z34.80 [facility] [place] [address] 87895 -3561 17 May, 2017 Urinary frequency R35.0 and Pain of round ligament N94.9 [place] [address] 93317- 8858 13 May, 2017 35 weeks gestation of Z3A.35 [place] [id number] [place] [address] 42259- 5501 Apr, High risk sexual behavior Z72.51 and 33 weeks gestation of Z3A.33 [place] [address] 98738- 1867 Apr, care in third trimester Z34.93 [facility] [place] [address] 96894 -5512 10 Apr, 2017 Bilateral impacted cerumen H61.23 [place] [address] 49411- 5293 09 Apr, 2017 30 weeks gestation of Z3A.30 and Encounter for immunization Z23 [facility] [id number] [place] [address] 27712- 4426 Mar, 28 weeks gestation of Z3A.28 [facility] [id number] [place] [address] 74776- 3003 Mar, [facility] [address] 27070- 0719 Mar, [facility] [id number] [place] [address] 30299- 1321 Mar, [place] [address] 17470- 4989 Mar, 26 weeks gestation of Z3A.26 [facility] [address] 79997 -2710 Mar, Acute back pain M54.9 [place] [address] 61065- 8833 Feb, 24 weeks gestation of Z3A.24 [facility] [address] [place] [address] 95205 -2125 Feb, Lower abdominal pain R10.30 [facility] [id number] [place] [address] 88943 -1859 Feb, Gastroenteritis and colitis, viral A08.4 [place] [address] 11925- 5561 14 Feb, 2017 care in second trimester Z34.92 [place] [id number] [place] [address] 05070- 0652 07 Feb, 2017 [facility] [address] 49596 -5959 04 Feb, 2017 Abscess L02.91 [facility] [address] [place] [id number] [place] [address] 60797 -4985 Feb, Vaginal flavia B37.3 [place] [id number] [place] [address] 04848- 6006 January, 20 weeks gestation of Z3A.20 [place] [id number] [place] [address] 62996- 7802 January, [facility] [place] [id number] [place] [address] 83313 -9547 January, Seasonal allergic rhinitis, unspecified allergic rhinitis trigger J30.2 [facility] [place] [id number] [place] [address] 76858 -8513 January, Dermatitis L30.9 and Bug bites, initial encounter W[address] [place] [id number] [place] [address] 72870- 6418 January, Sore throat J02.9 and Seasonal allergic rhinitis, unspecified allergic rhinitis trigger J30.[address] 54897- 6963 January, 16 weeks gestation of Z3A.16 [place] [id number] [place] [address] 24311- 9580 Dec, care in first trimester Z34.91 [place] [id number] [place] [address] 49842- 6433 Nov, care in first trimester Z34.91 and Normal in multigravida Z34.80 [facility] [place] [id number] [place] [address] 67718 -8251 Oct, Nausea and vomiting during O21.9 [place] [id number] [place] [address] 10285- 8655 Oct, [place] [id number] [place] [address] 64876- 3613 Oct, [place] [id number] [place] [address] 86342- 1502 Oct, Encounter for test, result unknown Z32.00 [place] [id number] [place] [address] 50459- 9504 Sep, Irregular periods/menstrual cycles N92.6 ; Sore throat J02.9 ; Nausea R11.0 and Right ear impacted cerumen H61.21 [facility] [place] [id number] [place] [address] 35496 -2006 Jul, Vaginal discharge N89.8 ; Other specified bacterial agents as the cause of diseases classified elsewhere B96.89 and Acute vaginitis N76.0 [place] [id number] [place] [address] 19365- 2369 Jun, Depression, unspecified depression type F32.9 [place] [id number] [place] [address] 29828- 4229 23 May, 2016 Vaginal candidiasis B37.3 [place] [address] 52647- 7770 20 May, 2016 Acute pharyngitis, unspecified etiology J02.9 [place] [id number] [place] [address] 62583- 1736 19 May, 2016 Depression, unspecified depression type F32.9 [place] [id number] [place] [address] 49286- 9838 12 May, 2016 Depression, unspecified depression type F32.9 [place] [id number] [place] [address] 28598- 6146 May, Dysthymic disorder F34.1 [facility] [place] [id number] [place] [address] 08452 -0320 10 Apr, 2016 Acute suppurative otitis media of right ear without spontaneous rupture of tympanic membrane, recurrence not specified H66.001 [facility] [id number] [place] [address] 80844 -7782 Mar, Herpes zoster without complication B02.9 [facility] [address] [id number] [place] [address] 63073 -2386 Dec, Allergic rhinitis J30.9 [facility] [id number] [place] [address] 35046 -3127 Dec, Lumbago M54.5 [facility] [id number] [place] [address] 91964 -0747 Oct, Dysuria R30.0 and Urinary tract infection N39.0 [facility] [id number] [place] [address] 68256 -8867 Sep, Acute nasopharyngitis J00 and Strep pharyngitis J02.0 [place] [address] 29935- 3264 Jul, Upper respiratory tract infection, unspecified type J06.9 [place] [address] 17639- 3912 Jun, Irritable bowel syndrome without diarrhea K58.9 [place] [address] 81953- 1603 Jun, [place] [id number] [place] [address] 81570- 8925 May, [place] [id number] [place] [address] 64815- 5068 May, [place] [id number] [place] [address] 31787- 3875 May, Otitis externa of left ear 380.10 [place] [id number] [place] [address] 96498- 7489 May, Pain in joint, ankle and foot 719.47 [place] [address] 81594- 2274 Apr, Pain in joint, ankle and foot 719.47 [place] [address] 84977- 8983 Mar, Dysuria 788.1 and Incontinence in female 625.6 [facility] [id number] [place] [address] 06099- 6136 Feb, Plantar fasciitis of right foot 728.71 ; Ankle weakness 719.67 and Ankle pain, chronic 719.47 [facility] [id number] [place] [address] 80009- 3476 Feb, [facility] [address] 79388- 8809 Feb, Belching 787.3 and Chest wall pain 786.52 [facility] [address] 53345- 9956 Dec, [facility] [id number] [place] [address] 60389- 7422 Dec, [facility] [id number] [place] [address] 25612- 5252 Nov, [facility] [id number] [place] [address] 02462- 4025 Nov, [facility] [id number] [place] [address] 389796- 6318 Sep, [facility] [id number] [place] [address] 011100- 7066 Sep, [facility] [id number] [place] [address] 87448- 7174 Sep, [facility] [id number] [place] [address] 28957- 5336 Sep, [facility] [id number] [place] [address] 10431- 6776 Aug, [facility] [id number] [place] [address] 98740- 8396 Aug, [facility] [id number] [place] [address] 95998- 8900 Aug, [facility] [place] [facility] [address] [id number] [place] [address]- 8829 Aug, [facility] [place] [facility] [address] [id number] [place] [address]- 7023 Aug, [facility] [place] [facility] [address] [id number] [place] 1168 Aug, [facility] [place] [facility] [address] [id number] [place] [address]- 3031 Aug, [facility] [place] [facility] [address] [id number] [place] [address]- 3035 Aug, [facility] [place] [facility] [address] [id number] [place] [address]- 6949 Aug, [facility] [place] [facility] [address] [id number] [place] [address]- 2987 Aug, [facility] [place] [facility] [address] [id number] [place] [address]- 2599 Aug, [facility] [place] [facility] [address] [id number] [place] [address]- 7286 Aug, [facility] [place] [facility] [address] [id number] [place] [address]- 9939 Aug, [facility] [place] [facility] [address] [id number] [place] [address]- 2847 Aug, [facility] [place] [facility] [address] [id number], [place] [address]- 6014 Jul, [facility] [place] [facility] [address] [id number] [place] [address]- 5781 Jul, [facility] [place] [facility] [address] [id number] [place] [address]- 3887 Jul, [facility] [place] [facility] [address] [id number] [place] [address]- 0398 Jul, [facility] [place] [facility] [address] [id number] [place] [address]- 9853 Jul, [facility] [place] [facility] [address] [id number] [place] [address]- 2674 Jul, [facility] [place] [facility] [address] [id number] [place] 3596 Jul, [facility] [place] [facility] [address] [id number] [place] [address]- 1899 Jun, [facility] [place] [facility] [address] [id number] [place] [address]- 7295 Jun, [facility] [place] [facility] [address] [id number] [place] [address]- 3661 Jun, [facility] [place] [facility] [address] [id number] [place] [address]- 5601 Jun, [facility] [place] [facility] [address] [id number] [place] [address]- 0412 Jun, [facility] [place] [facility] [address] [id number] [place] [address]- 5401 Jun, [facility] [place] [facility] [address] [id number] [place] [address]- 1089 Jun, [facility] [place] [facility] [address] [id number] [place] [address]- 9754 Jun, [facility] [place] [facility] [address] [id number] [place] [address]- 9322 Jun, [facility] [place] [facility] [address] [id number] [place] [address]- 1024 Jun, [facility] [place] [facility] [address] [id number] [place] [address]- 6097 Jun, [facility] [place] [facility] [address] [id number] [place] [address]- 1157 Jun, [facility] [place] [facility] [address] [id number] 2109 Jun, [facility] [place] [facility] [address] [id number] [place] [address]- 4295 Jun, [facility] [place] [facility] [address] [id number] [place] [address]- 3975 May, [facility] [place] [facility] [address] [id number] [place] [address]- 2616 May, [facility] [place] [facility] [address] [id number] [place] [address]- 3964 May, [facility] [place] [facility] [address] [id number] [place] [address]- 3220 May, [facility] [place] [facility] [address] [id number] [place] [address]- 8192 May, [facility] [place] [facility] [address] [id number] [place] [address]- 3213 Apr, [facility] [place] [facility] [address] [id number] [place] [address]- 0371 Apr, [facility] [place] [facility] [address] [id number] [place] [address]- 1334 Apr, [facility] [place] [facility] [address] [id number] [place] [address]- 5582 Apr, [facility] [place] [facility] [address] [id number] [place] [address]- 7366 Mar, [facility] [place] [facility] [address] [id number] [place] [address]- 2819 Mar, [facility] [place] [facility] [address] [id number] [place] [address]- 5720 Mar, [facility] [place] [facility] [address] [id number] [place] [address]- 5990 Mar, [facility] [place] [facility] [address] [id number] [place] [address]- 0775 Mar, [facility] [place] [facility] [address] [id number] [place] [address]- 2453 Mar, [facility] [place] [facility] [address] [id number] [place] [address]- 5412 Mar, [facility] [place] [facility] [address] [id number] [place] 1095 Mar, [facility] [place] [facility] [address] [id number] [place] [address]- 6246 Feb, [facility] [place] [facility] [address] [id number] [place] [address]- 2850 Feb, [facility] [place] [facility] [address] [id number] [place] [address]- 5596 Feb, [facility] [place] [facility] [address] [id number] [place] [address]- 2994 Feb, [facility] [place] [facility] [address] [id number] [place] [address]- 5529 Feb, [facility] [place] [facility] [address] [id number] [place] [address]- 9735 Feb, [facility] [place] [facility] [address] [id number] [place] [address]- 2209 Feb, [facility] [place] [facility] [address] [id number] [place] [address]- 2876 Feb, [facility] [place] [facility] [address] [id number] [place] [address]- 9208 January, [facility] [place] [facility] [address] [id number] [place] [address]- 9373 January, [facility] [place] [facility] [address] [id number] [place] [address]- 8139 January, [facility] [place] [facility] [address] [id number] [place] [address]- 9733 January, [facility] [place] [facility] [address] [id number] [place] [address]- 9380 January, [facility] [place] [facility] [address] [id number] [place] [address]- 0014 January, [facility] [address] [id number] [place] [address]- 4479 Dec, [facility] [address] [id number] [place] [address]- 2112 Dec, [facility] [address] [id number] [place] [address]- 9616 Dec, [facility] [address] [id number] [place] [address] Dec, [facility] [address] [id number] [place] [address] Dec, [facility] [address] [id number] [place] [address] Dec, [facility] [address] [id number] [place] [address] Dec, [facility] [address] [id number] [place] [address] Dec, [facility] [address] [id number] [place] [address] Oct, [facility] [address] [id number] [place] [address] Oct, [facility] [address] [id number] [place] [address] Aug, [facility] [address] [id number] [place] [address] Aug, [facility] [place] [facility] [address] [id number] [place] [address] Jul, [facility] [place] [facility] [address] [id number] [place] [address] Jul, [facility] [place] [facility] [address] [id number] [place] [address] Mar, [facility] [address] [id number] [place] [address] Mar, [facility] [place] [facility] [address] [id number] [place] [address] Mar, [facility] [address] [id number] [place] [address] Feb, [facility] [place] [facility] [address] [id number] [place] [address]- [address] Feb, [facility] [address] [id number] [place] [address] Feb, [facility] [place] [facility] [address] [id number] [place] [address]- [address] January, [facility] [place] [facility] [address] [id number] [place] [address]- [address] January, [facility] [address] [id number] [place] [address] January, [facility] [place] [facility] [address] [id number] [place] [address] January, [facility] [place] [facility] [address] [id number] [place] [address]- [address] January, [facility] [place] [facility] [address] [id number] [place] [address] January, [facility] [place] [facility] [address] [id number] [place] [address] January, [facility] [place] [facility] [address] [id number] [place] [address] Dec, [facility] [place] [facility] [address] [id number] [place] [address] Dec, [facility] [place] [facility] [address] [id number] [place] [address] Dec, [facility] [place] [facility] [address] [id number] [place] [address] Dec, [facility] [address] [id number] [place] [address] Nov, [facility] [address] [id number] [place] [address] Nov, [facility] [address] [id number] [place] [address] Nov, [facility] [address] [id number] [place] [address] Oct, [facility] [id number] [place] [address], [place] [address]- [address] Oct, [facility] [address] [id number] [place] [address] Oct, [facility] [address] [id number] [place] [address] Oct, [facility] [address] [id number] [place] [address] Oct, [facility] [address] [id number] [place] [address] Oct, 2012 [facility] [address] [address] [id number] [place] [address] Sep, [facility] [address] [id number] [place] [address] Sep, [facility] [address] [id number] [place] [address] Sep, [facility] [place] [facility] [address] [id number] [place] [address] Sep, [facility] [place] [facility] [address] [id number] [place] [address] 08 Sep, 2012 [facility] [address] [id number] [place] [address] Aug, [facility] [place] [facility] [address] [id number] [place] [address] 13 Aug, 2012 [facility] [place] [facility] [address] [id number] [place] [address] 07 Aug, 2012 [facility] [place] [facility] [address] [id number] [place] [address] 07 Aug, 2012 [facility] [place] [facility] [address] [id number] [place] [address] 06 Aug, 2012 [facility] [place] [facility] [address] [id number] [place] [address] 06 Aug, 2012 [facility] [place] [facility] [address] [id number] [place] [address] 29 Jul, 2012 [facility] [place] [facility] [address] [id number] [place] [address] 29 Jul, 2012 [facility] [place] [facility] [address] [id number] [place] [address] 29 Jul, 2012 [facility] [place] [facility] [address] [id number] [place] [address] 29 Jul, 2012 [facility] [place] [facility] [address] [id number], [place] [address] Jul, [facility] [place] [facility] [address] [id number], [place] [address] 20 Jul, 2012 [facility] [place] [facility] [address] [id number], [place] [address] 15 Jul, 2012 [facility] [place] [facility] [address] [id number] [place] [address] 15 Jul, 2012 [facility] [place] [facility] [address] [id number] [address] 14 Jul, 2012 [facility] [place] [facility] [address] [facility] [id number], [place] [address] 12 Jul, 2012 [facility] [place] [facility] [address] [id number], [place] [address] Jul, [facility] [place] [facility] [address] [id number] [place] [address] Jul, [facility] [place] [facility] [address] [id number] [place] [address] Jul, [facility] [place] [facility] [address] [facility] [id number] [place] [address] Jul, [facility] [place] [facility] [address] [id number] [place] [address] Jul, [facility] [place] [facility] [address] [facility] [id number] [place] [address], [place] [address] Jul, [facility] [place] [facility] [address] [facility] [id number] [place] [address] Jul, [facility] [place] [facility] [id number] [place] [address] Jul, [facility] [place] [facility] [address] [facility] [id number] [place] [address] Jul, [facility] [place] [facility] [address] [id number] [place] [address] Jun, [facility] [place] [facility] [address] [facility] [id number] [place] [address] Jun, [facility] [place] [facility] [address] [facility] [id number], [place] [address] May, [facility] [place] [facility] [address] [facility] [id number], [place] [address] Apr, [facility] [place] [facility] [address] [facility] [id number] [place] [address] Mar, [facility] [place] [facility] [address] [facility] [id number] [place] [address] Feb, [facility] [place] [facility] [address] [facility] [id number][place] [address] Feb, [facility] [place] [facility] [address] [id number] [place] [address] Feb, [facility] [place] [facility] [address] [id number] [place] [address] January, [facility] [place] [facility] [address] [id number] [place] [address] January, [facility] [place] [facility] [address] [id number] [place] [address]483 Dec, [facility] [place] [facility] [address] [id number] [place] [address] Dec, [facility] [place] [facility] [address] [id number] [place] [address] Nov, [facility] [place] [facility] [address] [id number] [place] [address] Aug, [facility] [place] [facility] [address] [id number] [place] [address] Jul, [facility] [place] [facility] [address] [id number] [place] [address] 35[address] Jul, [facility] [place] [facility] [address] [id number] [place] [address] Jul, [facility] [place] [facility] [address] [id number] [place] [address] Jun, [facility] [place] [facility] [address] [id number] [place] [address] 12 Jun, 2011 [facility] [place] [facility] [address] [id number] [place] [address] 14 May, 2011 [facility] [place] [facility] [address] [id number] [place] [address] 10 Apr, 2011 [facility] [place] [facility] [address] [id number] [place] [address] January, [facility] [place] [facility] [address] [id number] [place] [address] 9258 13 Dec, 2010 [facility] [address] [id number], [place] [address] Nov, [facility] [address]65[address], [place] [address] Oct, [facility] [address] [id number], [place] [address] Jun, [facility] [address]65[address], [place] [address] Jun, [facility] [address]65[address], [place] [address] Oct, [facility] [address]65[address], [place] [address] Aug, [facility] [address], [place] [address] Jul, [facility] [address] [id number], [place] [address] Dec, IMMUNIZATIONS No Known Immunizations SOCIAL HISTORY Never Assessed REASON FOR VISIT right Ear pain with sore throat and cough-Patrica LOJA PLAN OF CARE Activity Details Follow Up prn Reason: VITAL SIGNS Height 61 in 2017-08-19 Weight 178.8 lbs 2017-08-19 Temperature 98.4 degrees Fahrenheit 2017-08-19 Heart Rate 74 bpm 2017-08-19 Respiratory Rate 18 2017-08-19 BMI 33.78 kg/m2 2017-08-19 Blood pressure systolic 108 mmHg 2017-08-19 Blood pressure diastolic 68 mmHg 2017-08-19 MEDICATIONS Medication Instructions Dosage Frequency Start Date End Date Duration Status Pristiq 25 MG Orally Once a day 1 tablet 24h Jul, 14 days Active Pristiq 50 mg Orally Once a day 1 tablet 24h Jul, 30 day(s) Not-Taking RESULTS No Results PROCEDURES Procedure Date Ordered Result Body Site EAR IRRIGATION Aug 19, 2017 INSTRUCTIONS MEDICATIONS ADMINISTERED No Known Medications MEDICAL (GENERAL) HISTORY Type Description Date Medical History Heart murmur Medical History Asthma Medical History Depression, unspecified depression type Surgical History section x 3 2012, 2016 Surgical History orthopedic surgery-ligament repair, left ankle Hospitalization History Dehydration during multiple stays Hospitalization History Childbirth Hospitalization History Denies any past psychiatric hospitalization Hospitalization History High blood pressure
[2018-03-30 21:13] LABS: BASOPHILS % (AUTO) 0 % (0-10); EOSINOPHILS # (AUTO) 0.1 10^3/uL (0.0-0.3); EOSINOPHILS % (AUTO) 1 % (0-10); HEMATOCRIT 35 % (35-52); HEMOGLOBIN 12.5 G/DL (11.5-16.0); LYMPHOCYTES % (AUTO) 21 % (12-44); MEAN CORPUSCULAR HEMOGLOBIN 32 PG (25-34); MEAN CORPUSCULAR HGB CONC 35 G/DL (32-36); MEAN CORPUSCULAR VOLUME 90 FL (80-99); MONOCYTES # (AUTO) 0.7 X 10^3 (0.0-1.0); MONOCYTES % (AUTO) 8 % (0-12); NEUTROPHILS # (AUTO) 6.6 X 10^3 (1.8-7.8); NEUTROPHILS % (AUTO) 70 % (42-75); PLATELET COUNT 219 10^3/uL (130-400); RED BLOOD COUNT 3.92 10^6/uL (4.35-5.85); RED CELL DISTRIBUTION WIDTH 13.8 % (10.0-14.5); WHITE BLOOD COUNT 9.4 10^3/uL (4.3-11.0)
[2018-03-30] MEDS ORDERED: NS IV 1000 ML 1,000 ML IV SCH (21:15)
--- NOTE | 2018-03-30 21:15 | ED Psychosocial ---
General Stated Complaint: [id number] OVERDOSE Source: patient Exam Limitations: no limitations History of Present Illness Date Seen by Provider: Mar 30, 2018 Time Seen by Provider: 21:10 Initial Comments to ER accompanied by her boyfriend with reports of an overdose. The patient took four 25 mg tablets of Benadryl at 6 PM tonight. She also took "more than ten" 50 mg zoloft tablets. She arrives to ER lethargic but responsive and arousable to verbal stimuli. She is 23 weeks and 3 days . Ab0 but Boyfriend states that none of her 5 children live with her.she states she was taking this an attempt to kill herself and the fetus. Boyfriend states they had just had an argument and she believes he was cheating on her instead of going to work so she overdosed and then texted him to him to tell him that she did this. Timing/Duration: this evening Severity: moderate Associated Symptoms: ingestion, suicidal ideation Allergies and Home Medications Allergies Coded Allergies: cefaclor (Unverified Allergy, Mild, 03/11/09) Uncoded Allergies: BEE'S (Allergy, Unknown, 07/09/14) Home Medications Fluticasone Propionate 9.9 Ml [place].susp, 1 SPRAY NS DAILY, (Reported) 1 SPRAY EACH NARE DAILY Loratadine 10 Mg Tablet, 10 MG PO DAILY, (Reported) Patient Home Medication List Home Medication List Reviewed: Yes Constitutional: see HPI EENTM: see HPI Respiratory: no symptoms reported Cardiovascular: no symptoms reported Genitourinary: no symptoms reported Musculoskeletal: no symptoms reported Skin: no symptoms reported Psychiatric/Neurological: See HPI, Depressed, Emotional Problems Past Wocmnxy-Bpxdat-Colbwh Hx Patient Social History Alcohol Beverage of Choice: Beer Type Used: Cigarettes Former Smoker, Quit: Oct 02, 2016 2nd Hand Smoke Exposure: No Recent Hopitalizations: No Immunizations Up To Date Tetanus Booster (TDap): Unknown Date of Influenza Vaccine: Jun 23, 2017 Seasonal Allergies Seasonal Allergies: No Past Medical History Surgeries: Yes (LT ANKLE, X 3) Section, Orthopedic Respiratory: Yes Asthma Cardiac: Yes Heart Murmur Neurological: No Reproductive Disorders: No Female Reproductive Disorders: Denies Genitourinary: No Gastrointestinal: Yes Gastroesophageal Reflux Musculoskeletal: Yes (chronic left ankle pain) Chronic Back Pain, Fractures Endocrine: No HEENT: No Cancer: No Psychosocial: Yes Depression Integumentary: No Blood Disorders: No Adverse Reaction/Blood Tranf: No Family Medical History Asthma 19 FATHER Cardiovascular disease G8 BROTHER G8 SISTER Hypertension 19 FATHER No Pertinent Family Hx Physical Exam Vital Signs - First Documented 03/30/18 20:58 Temp 98.6 Pulse 80 Resp 14 B/P (MAP) 128/74 (92) Pulse Ox 100 O2 Delivery Room Air Capillary Refill : Height, Weight, BMI Height: 5', 0.00" Weight: 184lbs 0.0oz, 83.889442up Method:Stated ,35.9BMI General Appearance: WD/WN, no apparent distress, other (llethargic but arousable to verbal stimuli) HEENT: PERRL/EOMI, normal ENT inspection Neck: non-tender, full range of motion Respiratory: no respiratory distress, no accessory muscle use Cardiovascular: regular rate, rhythm, no murmur Gastrointestinal: normal bowel sounds, non tender, soft Extremities: normal range of motion, non-tender Neurologic/Psychiatric: other (lethargic but arousable to verbal stimuli and follows commands, answers questions appropriately.) Appearance/Memory: appropriate appearance, appropriate insight Behavior/Eye Contact: cooperative Skin: normal color, warm/dry heart tones obtained at the bedside 145. Poison control is called at 2107 by RN. They advised to monitor with serial EKGs every 2 hours 3,his QRS is greater than 100 ms give sodium bicarbonate at 2-3 mEq per kilogram. Her initial EKG has a rate of 76 without ectopy and normal intervals, and initial QRS interval is 88 ms. Progress/Results/Core Measures Results/Orders Lab Results Laboratory Tests Test 03/30/18 21:03 03/30/18 21:49 Range/Units White Blood Count 9.4 4.3-11.0 10^3/uL Red Blood Count 3.92 L 4.35-5.85 10^6/uL Hemoglobin 12.5 11.5-16.0 G/DL Hematocrit 35 35-52 % Mean Corpuscular Volume 90 80-99 FL Mean Corpuscular Hemoglobin 32 25-34 PG Mean Corpuscular Hemoglobin Concent 35 32-36 G/DL Red Cell Distribution Width 13.8 10.0-14.5 % Platelet Count 219 130-400 10^3/uL Mean Platelet Volume 10.0 7.4-10.4 FL Neutrophils (%) (Auto) 70 42-75 % Lymphocytes (%) (Auto) 21 12-44 % Monocytes (%) (Auto) 8 0-12 % Eosinophils (%) (Auto) 1 0-10 % Basophils (%) (Auto) 0 0-10 % Neutrophils # (Auto) 6.6 1.8-7.8 X 10^3 Lymphocytes # (Auto) 2.0 1.0-4.0 X 10^3 Monocytes # (Auto) 0.7 0.0-1.0 X 10^3 Eosinophils # (Auto) 0.1 0.0-0.3 10^3/uL Basophils # (Auto) 0.0 0.0-0.1 10^3/uL Sodium Level 138 135-145 MMOL/L Potassium Level 3.5 L 3.6-5.0 MMOL/L Chloride Level 108 H 98-107 MMOL/L Carbon Dioxide Level 19 L 21-32 MMOL/L Anion Gap 11 5-14 MMOL/L Blood Urea Nitrogen 5 L 7-18 MG/DL Creatinine 0.64 0.60-1.30 MG/DL Estimat Glomerular Filtration Rate > 60 BUN/Creatinine Ratio 8 Glucose Level 84 70-105 MG/DL Calcium Level 8.7 8.5-10.1 MG/DL Total Bilirubin 1.3 H 0.1-1.0 MG/DL Aspartate Amino Transf (AST/SGOT) 14 5-34 U/L Alanine Aminotransferase (ALT/SGPT) 10 0-55 U/L Alkaline Phosphatase 68 40-136 U/L Total Protein 6.6 6.4-8.2 GM/DL Albumin 3.6 3.2-4.5 GM/DL Salicylates Level < 5.0 L 5.0-20.0 MG/DL Acetaminophen Level < 10 L 10-30 UG/ML Serum Alcohol < 10 <10 MG/DL Urine Color YELLOW Urine Clarity SLIGHTLY CLOUDY Urine pH 6 5-9 Urine Specific Two Dot 1.025 H 1.016-1.022 Urine Protein NEGATIVE NEGATIVE Urine Glucose (UA) NEGATIVE NEGATIVE Urine Ketones 4+ H NEGATIVE Urine Nitrite NEGATIVE NEGATIVE Urine Bilirubin NEGATIVE NEGATIVE Urine Urobilinogen NORMAL NORMAL MG/DL Urine Leukocyte Esterase 1+ H NEGATIVE Urine RBC (Auto) NEGATIVE NEGATIVE Urine RBC NONE /HPF Urine WBC 0-2 /HPF Urine Squamous Epithelial Cells 0-2 /HPF Urine Crystals NONE /LPF Urine Bacteria TRACE /HPF Urine Casts NONE /LPF Urine Mucus LARGE H /LPF Urine Culture Indicated NO Urine Opiates Screen NEGATIVE NEGATIVE Urine Oxycodone Screen NEGATIVE NEGATIVE Urine Methadone Screen NEGATIVE NEGATIVE Urine Propoxyphene Screen NEGATIVE NEGATIVE Urine Barbiturates Screen NEGATIVE NEGATIVE Ur Tricyclic Antidepressants Screen NEGATIVE NEGATIVE Urine Phencyclidine Screen NEGATIVE NEGATIVE Urine Amphetamines Screen NEGATIVE NEGATIVE Urine Methamphetamines Screen NEGATIVE NEGATIVE Urine Benzodiazepines Screen NEGATIVE NEGATIVE Urine Cocaine Screen NEGATIVE NEGATIVE Urine Cannabinoids Screen NEGATIVE NEGATIVE My Orders Orders - EMI GONZALEZ APRN Cbc With Automated Diff (03/30/18 21:07) Comprehensive Metabolic Panel (03/30/18 21:07) Salicylate (03/30/18 21:07) Acetaminophen (03/30/18 21:07) Ekg Tracing (03/30/18 21:07) Continuous Ekg Monitoring (03/30/18 21:07) Iv [place]-Insert (Order) (03/30/18 21:07) Drug Screen Stat (Urine) (03/30/18 21:07) Alcohol (03/30/18 21:07) Ns Iv 1000 Ml (Sodium Chloride 0.9%) (03/30/18 21:15) [place] Limited [id number] (03/30/18 21:07) Ua Culture If Indicated (03/30/18 22:18) Ekg Tracing (03/30/18 22:22) Ondansetron Oral Dissolve Tab (Zofran (03/30/18 22:35) Vital Signs/I&O 03/30/18 20:58 Temp 98.6 Pulse 80 Resp 14 B/P (MAP) 128/74 (92) Pulse Ox 100 O2 Delivery Room Air Departure Communication (Admissions) Time/Spoke to Admitting Phy: 22:[address] Gomez. We'll admit the patient, consult the ICU overnight so the EKGs can be faxed to them 4 QRS duration monitoring and determination of need for sodium bicarbonate.at this time she is resting in bed remains arousable to verbal stimuli. She did report some nausea so I ordered 4 mg of Zofran once orally. Consult child protective services social worker to arrange for mental health evaluation tomorrow. Suicide precautions overnight. Discussed with Dr. Gomez, no need to continue the tocodynamometer overnight, poison control did not relate any additional concerns in regards to the patient being or effects of these medications on the fetus.. Impression Primary Impression: Suicide attempt by inadequate means Additional Impression: suicide attempt during Disposition: ADMITTED INPATIENT Condition: Stable Admissions Decision to Admit Reason: Admit from ER (General) Decision to Admit/Date: Mar 30, 2018 Time/Decision to Admit Time: 22:02 Departure-Patient Inst. Referrals: ZAYRA GOMEZ MD (PCP/Family) Primary Care Physician EMI GONZALEZ APRN Mar 30, 2018 21:15
[2018-03-30 21:30] LABS: ALANINE AMINOTRANSFERASE 10 U/L (0-55); ALBUMIN 3.6 GM/DL (3.2-4.5); ALKALINE PHOSPHATASE 68 U/L (40-136); BILIRUBIN,TOTAL 1.3 MG/DL (0.1-1.0); BUN/CREATININE RATIO 8; CALCIUM 8.7 MG/DL (8.5-10.1); CARBON DIOXIDE 19 MMOL/L (21-32); CHLORIDE 108 MMOL/L (98-107); CREATININE SERUM 0.64 MG/DL (0.60-1.30); GFR ESTIMATED > 60; GLUCOSE 84 MG/DL (70-105); POTASSIUM 3.5 MMOL/L (3.6-5.0); SALICYLATE < 5.0 MG/DL (5.0-20.0); SODIUM 138 MMOL/L (135-145); TOTAL PROTEIN 6.6 GM/DL (6.4-8.2)
[2018-03-30 21:33] LABS: ACETAMINOPHEN < 10 UG/ML (10-30)
--- NOTE | 2018-03-30 21:59 | Diagnostic Imaging Report ---
INDICATION: patient, possible overdose Limited OB sonography performed to evaluate for presentation and cervical length. A single live intrauterine fetus is seen in breech presentation with heart rate of 161 beats minute. Amniotic fluid is qualitatively normal. There is a grade 2 placenta which is posterior with no evidence of previa or abruption. Cervical length is 5 cm. The fetus is active. IMPRESSION: Limited OB sonography shows fetus in breech presentation with no overt abnormalities. Dictated by: Dictated on workstation # [id number]
[2018-03-30 22:26] LABS: BACTERIA,URINE TRACE /HPF; BILIRUBIN,URINE NEGATIVE (NEGATIVE); CLARITY,URINE SLIGHTLY CLOUDY; COLOR,URINE YELLOW; GLUCOSE, URINE (UA) NEGATIVE (NEGATIVE); KETONES,URINE 4+ (NEGATIVE); LEUKOCYTE ESTERASE ,URINE 1+ (NEGATIVE); NITRITE,URINE NEGATIVE (NEGATIVE); PH,URINE 6 (5-9); PROTEIN,URINE NEGATIVE (NEGATIVE); SQUAMOUS EPITHELIAL CELL,UR 0-2 /HPF; UROBILINOGEN,URINE NORMAL (NORMAL); WBC,URINE 0-2 /HPF
[2018-03-30 22:32] LABS: AMPHETAMINE SCREEN, URINE NEGATIVE (NEGATIVE); BARBITURATE SCREEN URINE NEGATIVE (NEGATIVE); BENZODIAZEPINES SCREEN URINE NEGATIVE (NEGATIVE); CANNABINOID SCREEN, URINE NEGATIVE (NEGATIVE); COCAINE SCREEN URINE NEGATIVE (NEGATIVE); METHADONE STAT NEGATIVE (NEGATIVE); METHAMPHETAMINE SCREEN URINE S NEGATIVE (NEGATIVE); OPIATE SCREEN URINE NEGATIVE (NEGATIVE); OXYCODONE STAT NEGATIVE (NEGATIVE); PROPOXYPHENE STAT NEGATIVE (NEGATIVE); TRICYCLIC ANTIDEPRESSANTS SCRE NEGATIVE (NEGATIVE)
[2018-03-30] MEDS ORDERED: ONDANSETRON 4 MG (ZOFRAN) ORAL DISSOLVE TAB ONE (22:35)
[2018-03-30] MEDS ORDERED: ONDANSETRON 4 MG/2 ML (SDV) Z0FRAN IV PRN (23:45)
[2018-03-30] MEDS ORDERED: CATHETER FLUSH 10 ML SYR IV PRN (23:45)
[2018-03-31] VITALS (14 sets, daily range): BP systolic 96–148; BP diastolic 47–82
[2018-03-31] MEDS ORDERED: ACETAMINOPHEN 325 MG TABLET PO PRN (00:30)
[2018-03-31] MEDS ORDERED: ACETAMINOPHEN 325 MG TABLET ONE (00:43)
[2018-03-31] MEDS: NS IV 1000 ML 1,000 ML IV SCH ×2 (00:59→07:46)
[2018-03-31 03:23] LABS: BASOPHILS % (AUTO) 0 % (0-10); EOSINOPHILS % (AUTO) 0 % (0-10); HEMATOCRIT 32 % (35-52); HEMOGLOBIN 11.3 G/DL (11.5-16.0); LYMPHOCYTES # (AUTO) 1.4 X 10^3 (1.0-4.0); LYMPHOCYTES % (AUTO) 16 % (12-44); MEAN CORPUSCULAR HEMOGLOBIN 32 PG (25-34); MEAN CORPUSCULAR HGB CONC 36 G/DL (32-36); MEAN CORPUSCULAR VOLUME 91 FL (80-99); MEAN PLATELET VOLUME 10.6 FL (7.4-10.4); MONOCYTES # (AUTO) 0.6 X 10^3 (0.0-1.0); MONOCYTES % (AUTO) 6 % (0-12); NEUTROPHILS # (AUTO) 7.1 X 10^3 (1.8-7.8); NEUTROPHILS % (AUTO) 78 % (42-75); PLATELET COUNT 211 10^3/uL (130-400); RED BLOOD COUNT 3.49 10^6/uL (4.35-5.85); RED CELL DISTRIBUTION WIDTH 13.7 % (10.0-14.5); WHITE BLOOD COUNT 9.2 10^3/uL (4.3-11.0)
[2018-03-31 03:39] LABS: BUN/CREATININE RATIO 10; CALCIUM 7.8 MG/DL (8.5-10.1); CARBON DIOXIDE 20 MMOL/L (21-32); CHLORIDE 110 MMOL/L (98-107); CREATININE SERUM 0.62 MG/DL (0.60-1.30); GFR ESTIMATED > 60; GLUCOSE 111 MG/DL (70-105); MAGNESIUM 1.8 MG/DL (1.8-2.4); PHOSPHORUS 2.3 MG/DL (2.3-4.7); POTASSIUM 3.7 MMOL/L (3.6-5.0); SODIUM 136 MMOL/L (135-145)
[2018-03-31] MEDS ORDERED: CATHETER FLUSH 10 ML SYR IV SCH (06:00)
[2018-03-31] MEDS ORDERED: KCL 20 MEQ TAB (K-DUR) PO SCH (06:00)
[2018-03-31] MEDS ORDERED: MAGNESIUM 1 GM/100 ML IVPB 100 ML IV SCH (06:00)
[2018-03-31] MEDS ORDERED: POTASSIUM CL 10MEQ/50ML IVPB 50 ML IV SCH (06:00)
--- NOTE | 2018-03-31 07:37 | History & Physicial ([facility]) ---
HPI History of Present Illness: 27-year-old currently at 23 weeks gestation who apparently took for Benadryl tablets 25 mg as well as taking about 1550 mg Zoloft tablets. She apparently took these in response to all the stressors in her life. This morning she is completely arousable and appears to be without limitations as compared to yesterday evening where she was arousable by stimuli verbally. Her boyfriend is present with her this morning as well as throughout the electrician manager and he stated they had an argument. Apparently she believe he was cheating on her and apparently this is what also prompted her to take the pills mentioned above. She has no previous history of drug overdose. Source: patient Exam Limitations: clinical condition Date seen by provider: Mar 31, 2018 Time Seen by Provider: 07:20 Attending Physician Jackson Gomez MD PCP Jackson Gomez MD Consult Date of Admission Mar 30, 2018 at 22:56 Home Medications Home Medications Reviewed patient Home Medication Reconciliation performed by pharmacy medication reconciliations soil field technician and/or nursing. Patients Allergies have been reviewed. Allergies Coded Allergies: cefaclor (Unverified Allergy, Mild, 03/11/09) Uncoded Allergies: BEE'S (Allergy, Unknown, 07/09/14) AJY-Fnwbku-Nradid Hx Patient Social History Employed/Student: employed (At [employer]) Alcohol Use: Past History Recreational Drug Use: No Former smoker/When Quit: Nov 20, 2013 Type Used: Cigarettes 2nd Hand Smoke Exposure: No Recent Foreign Travel: No Contact w/other who traveled: No Recent Hopitalizations: No Recent Infectious Disease Expo: No Physical Abuse Screen: No Sexual Abuse: No Immunizations Up To Date Tetanus Booster (TDap): Unknown Date of Influenza Vaccine: Jun 23, 2017 Family Medical History Significant Family History: No Pertinent Family Hx Family History: Asthma 19 FATHER Cardiovascular disease G8 BROTHER G8 SISTER Hypertension 19 FATHER Review of Systems ([facility]) Constitutional: see HPI Reviewed Test Results Reviewed Test Results Lab Laboratory Tests Test 03/30/18 21:03 03/30/18 21:49 03/31/18 03:00 Range/Units White Blood Count 9.4 9.2 4.3-11.0 10^3/uL Red Blood Count 3.92 L 3.49 L 4.35-5.85 10^6/uL Hemoglobin 12.5 11.3 L 11.5-16.0 G/DL Hematocrit 35 32 L 35-52 % Mean Corpuscular Volume 90 91 80-99 FL Mean Corpuscular Hemoglobin 32 32 25-34 PG Mean Corpuscular Hemoglobin Concent 35 36 32-36 G/DL Red Cell Distribution Width 13.8 13.7 10.0-14.5 % Platelet Count 219 211 130-400 10^3/uL Mean Platelet Volume 10.0 10.6 H 7.4-10.4 FL Neutrophils (%) (Auto) 70 78 H 42-75 % Lymphocytes (%) (Auto) 21 16 12-44 % Monocytes (%) (Auto) 8 6 0-12 % Eosinophils (%) (Auto) 1 0 0-10 % Basophils (%) (Auto) 0 0 0-10 % Neutrophils # (Auto) 6.6 7.1 1.8-7.8 X 10^3 Lymphocytes # (Auto) 2.0 1.4 1.0-4.0 X 10^3 Monocytes # (Auto) 0.7 0.6 0.0-1.0 X 10^3 Eosinophils # (Auto) 0.1 0.0 0.0-0.3 10^3/uL Basophils # (Auto) 0.0 0.0 0.0-0.1 10^3/uL Sodium Level 138 136 135-145 MMOL/L Potassium Level 3.5 L 3.7 3.6-5.0 MMOL/L Chloride Level 108 H 110 H 98-107 MMOL/L Carbon Dioxide Level 19 L 20 L 21-32 MMOL/L Anion Gap 11 6 5-14 MMOL/L Blood Urea Nitrogen 5 L 6 L 7-18 MG/DL Creatinine 0.64 0.62 0.60-1.30 MG/DL Estimat Glomerular Filtration Rate > 60 > 60 BUN/Creatinine Ratio 8 10 Glucose Level 84 111 H 70-105 MG/DL Calcium Level 8.7 7.8 L 8.5-10.1 MG/DL Total Bilirubin 1.3 H 0.1-1.0 MG/DL Aspartate Amino Transf (AST/SGOT) 14 5-34 U/L Alanine Aminotransferase (ALT/SGPT) 10 0-55 U/L Alkaline Phosphatase 68 40-136 U/L Total Protein 6.6 6.4-8.2 GM/DL Albumin 3.6 3.2-4.5 GM/DL Salicylates Level < 5.0 L 5.0-20.0 MG/DL Acetaminophen Level < 10 L 10-30 UG/ML Serum Alcohol < 10 <10 MG/DL Urine Color YELLOW Urine Clarity SLIGHTLY CLOUDY Urine pH 6 5-9 Urine Specific [place] 1.025 H 1.016-1.022 Urine Protein NEGATIVE NEGATIVE Urine Glucose (UA) NEGATIVE NEGATIVE Urine Ketones 4+ H NEGATIVE Urine Nitrite NEGATIVE NEGATIVE Urine Bilirubin NEGATIVE NEGATIVE Urine Urobilinogen NORMAL NORMAL MG/DL Urine Leukocyte Esterase 1+ H NEGATIVE Urine RBC (Auto) NEGATIVE NEGATIVE Urine RBC NONE /HPF Urine WBC 0-2 /HPF Urine Squamous Epithelial Cells 0-2 /HPF Urine Crystals NONE /LPF Urine Bacteria TRACE /HPF Urine Casts NONE /LPF Urine Mucus LARGE H /LPF Urine Culture Indicated NO Urine Opiates Screen NEGATIVE NEGATIVE Urine Oxycodone Screen NEGATIVE NEGATIVE Urine Methadone Screen NEGATIVE NEGATIVE Urine Propoxyphene Screen NEGATIVE NEGATIVE Urine Barbiturates Screen NEGATIVE NEGATIVE Ur Tricyclic Antidepressants Screen NEGATIVE NEGATIVE Urine Phencyclidine Screen NEGATIVE NEGATIVE Urine Amphetamines Screen NEGATIVE NEGATIVE Urine Methamphetamines Screen NEGATIVE NEGATIVE Urine Benzodiazepines Screen NEGATIVE NEGATIVE Urine Cocaine Screen NEGATIVE NEGATIVE Urine Cannabinoids Screen NEGATIVE NEGATIVE Phosphorus Level 2.3 2.3-4.7 MG/DL Magnesium Level 1.8 1.8-2.4 MG/DL Radiology NAME: LAWSON MENDEZ MED REC#: [id number] PT STATUS: REG ER : 1990 PHYSICIAN: EMI GONZALEZ APRN ADMIT DATE: 03/30/18/ER Signed Date of Exam: 03/30/18 LIMITED [id number] INDICATION: patient, possible overdose Limited OB sonography performed to evaluate for presentation and cervical length. A single live intrauterine fetus is seen in breech presentation with heart rate of 161 beats minute. Amniotic fluid is qualitatively normal. There is a grade 2 placenta which is posterior with no evidence of previa or abruption. Cervical length is 5 cm. The fetus is active. IMPRESSION: Limited OB sonography shows fetus in breech presentation with no overt abnormalities. Dictated by: Dictated on workstation # [id number] Dict: 03/30/182149 Trans: 07/09/18 2200 Interpreted by: EMERSON HAMPTON MD Electronically signed by: EMERSON HAMPTON MD 03/30/18 2200 Physical Exam-([facility]) Physical Exam Vital Signs VS - Last 72 Hours, by Label 03/30/18 03/30/18 03/30/18 03/30/18 00:45 20:58 22:54 23:38 Temp 97.0 98.6 97.9 Pulse 72 80 66 64 Resp 15 14 16 B/P (MAP) 130/76 (94) 128/74 (92) 119/60 Pulse Ox 98 100 99 O2 Delivery Room Air Room Air Room Air 03/30/18 03/31/18 03/31/18 03/31/18 23:50 00:00 00:16 00:30 Pulse 73 69 60 Resp 11 14 16 B/P (MAP) 128/82 (97) 134/72 (92) 131/69 (89) Pulse Ox 98 99 98 O2 Delivery Room Air Room Air Room Air Room Air 03/31/18 03/31/18 03/31/18 03/31/18 00:45 01:00 01:00 02:00 Pulse 73 87 75 70 Resp 18 20 20 B/P (MAP) 129/56 (80) 120/60 (80) 119/58 (78) Pulse Ox 98 98 98 O2 Delivery Room Air Room Air Room Air 03/31/18 03/31/18 03/31/18 03/31/18 03:00 04:00 04:00 05:00 Pulse 94 66 63 Resp 16 18 18 B/P (MAP) 117/66 (83) 116/48 (70) 100/53 (69) Pulse Ox 98 98 98 98 O2 Delivery Room Air Room Air Room Air Room Air 03/31/18 03/31/18 06:00 07:00 Pulse 58 66 Resp 16 B/P (MAP) 96/47 (63) Pulse Ox 97 O2 Delivery Room Air Capillary Refill : Less Than 3 Seconds General Appearance: no apparent distress (This morning at 07 20) Eyes: Bilateral Eye Normal Inspection, Bilateral Eye PERRL Neck: non-tender Respiratory: lungs clear Cardiovascular: normal peripheral pulses, regular rate, rhythm Gastrointestinal: soft Rectal: deferred Back: normal inspection Neurologic/Psychiatric: no motor/sensory deficits, alert, oriented x 3 Skin: normal color Assessment/Plan Assessment/Plan Admission Dx 1. Suicide attempt with Benadryl and Zoloft 2. Depression/anxiety 3. at 23 weeks gestation 4. Previous section Admission Status: Observation Reason for Inpatient Admission: Further monitoring of cardiovascular status. EKGs every 3 hours checking the QT intervals. Assessment & Plan 1. Suicide attempt with Benadryl and Zoloft -The emergency room caregiver has contacted poison control and they recommended monitoring of QT segment. If QT segment greater than 100 ms they recommended sodium bicarbonate. She has been monitored overnight and the duration was under 100 ms. Laboratory reviewed this morning and she is medically stable. 2. Depression/anxiety -At this time we'll hold on her Zoloft. Mental health will be contacted this morning for ongoing care recommendations. 3. at 23 weeks gestation -Patient has appointment April 01, 2018 with myself at [facility]. 4. Previous section Clinical Quality Measures DVT/VTE Risk/Contraindication: Risk Factor Score Per Nursin RFS Level Per Nursing on Admit: 1=Low/No VTE PPX JACKSON GOMEZ MD Mar 31, 2018 07:37
== END 2018-03-31 10:01 | disposition home or self-care (01) ==
LOC: EDUNIT# 20:58 → ER 21:00 → ICU 22:56 → UNDOADMOB 22:56 → ICU 23:30 → UNDODISOB 03-31 10:15
PROVIDERS: ADMIT Family Medicine; ATTEND Family Medicine
DX: O9A.212 Injury, poisoning and certain other consequences of external causes complicating pregnancy, second trimester (principal); T45.0X2A Poisoning by antiallergic and antiemetic drugs, intentional self-harm, initial encounter; T43.222A Poisoning by selective serotonin reuptake inhibitors, intentional self-harm, initial encounter; O99.342 Other mental disorders complicating pregnancy, second trimester; F32.9 Major depressive disorder, single episode, unspecified; F41.9 Anxiety disorder, unspecified; Z3A.23 23 weeks gestation of pregnancy
CPT/HCPCS: 36415; 51701; 76815; 80048; 80053; 80306; 80320; 80329; 81000; 83735; 84100; 85025; 87081; 93005; 96360; G0378

== ENCOUNTER → 2018-04-09 | Outpatient (CLI) | payer MEDICAID ==
--- NOTE | 2018-04-09 14:04 | Diagnostic Imaging Report ---
INDICATION: anatomy survey. TECHNIQUE: Multiple real-time grayscale images were obtained over the gravid uterus. COMPARISON: Ultrasound from 03/30/2018. FINDINGS: Single live intrauterine in the cephalic presentation. Placenta is posteriorly located and there is no previa or abruption. The amount of amniotic fluid appears visually appropriate. Due to advanced gestational age, the maternal adnexa are poorly evaluated. anatomy survey was performed and the following structures are visualized and normal: Cisterna magna, cerebellum, cerebral ventricles, umbilical cord insertion, urinary bladder, three-vessel cord, four-chamber heart, kidneys, stomach, right ventricular outflow tract, left ventricular outflow tract, spine, and all four extremities. Biometrical measurements are as follows: Biparietal 6.13 cm, age 25 weeks 0 days. Head circumference 21.9 cm, age 24 weeks 0 days. Abdominal circumference 21.38 cm, age 26 weeks 0 days. Femur length 4.31 cm, age 24 weeks 1 days. Sonographic estimate age: 24 weeks 6 days. Sonographic estimated date of delivery: 07/24/2018. Estimated Weight: 759 gm (+/- 111 gm). LMP percentile: 61%. heart rate: 153 beats per minute. number: 1 of 1. IMPRESSION: 1. Single live intrauterine with normal anatomy survey. Dictated by: Dictated on workstation # [id number]
== END ==
LOC: RAD 12:56
PROVIDERS: ATTEND Family Medicine
DX: Z36.89 Encounter for other specified antenatal screening (principal); Z3A.24 24 weeks gestation of pregnancy
CPT/HCPCS: 76805

== ENCOUNTER 2018-12-06 09:03 | Emergency (ER) | payer SELFPAY ==
[~2018-12-06] VITALS: Ht 152.4 cm; Wt 76.2 kg
[~2018-12-06 09:03] MED LIST changes: +HYDR-4226 PO; -HYDR-757 PO
--- NOTE | 2018-12-06 11:20 | ED General ---
General Chief Complaint: Cough/Cold/Flu Symptoms Stated Complaint: COUGH,CONGESTED Nursing Triage Note: Ambulatory to rm 5. Pt reports sore throat that began on Friday, then congestion, nausea, diarrhea and cough started yesterday. Pt reports thick, green mucous. Pt reports low grade temperature last night. Nursing Sepsis Screen: No Definite Risk Allergies and Home Medications Allergies Coded Allergies: cefaclor (Unverified Allergy, Mild, 03/11/09) Uncoded Allergies: BEE'S (Allergy, Unknown, 07/09/14) Home Medications Fluticasone Propionate 9.9 Ml [place].susp, 1 SPRAY NS DAILY, (Reported) 1 SPRAY EACH NARE DAILY Loratadine 10 Mg Tablet, 10 MG PO DAILY, (Reported) Past Hpkyqlr-Iekwge-Dlclhe Hx Patient Social History Alcohol Use: Occasionally Uses Number of Drinks Today: AA Alcohol Beverage of Choice: Beer Recreational Drug Use: No Type Used: Cigarettes Former Smoker, Quit: Oct 02, 2016 2nd Hand Smoke Exposure: No Recent Foreign Travel: No Contact w/Someone Who Travel: No Recent Infectious Disease Expo: No Recent Hopitalizations: No Physical Abuse: No Sexual Abuse: No Immunizations Up To Date Tetanus Booster (TDap): Unknown Date of Influenza Vaccine: Jun 23, 2017 Seasonal Allergies Seasonal Allergies: No Past Medical History Surgeries: Yes (LT ANKLE, X 3) Section, Orthopedic Respiratory: Yes Asthma Cardiac: Yes Heart Murmur Neurological: No Reproductive Disorders: No Female Reproductive Disorders: Denies Sexually Transmitted Disease: Yes (CHLAMYDIA ) Genitourinary: No Gastrointestinal: Yes Gastroesophageal Reflux Musculoskeletal: Yes (chronic left ankle pain) Chronic Back Pain, Fractures Endocrine: No HEENT: No Cancer: No Psychosocial: Yes Anxiety, Depression Integumentary: No Blood Disorders: No Adverse Reaction/Blood Tranf: No Family Medical History Asthma 19 FATHER Cardiovascular disease G8 BROTHER G8 SISTER Hypertension 19 FATHER No Pertinent Family Hx Physical Exam Vital Signs Vital Signs - First Documented Capillary Refill : Less Than 3 Seconds Height, Weight, BMI Height: 5'0" Weight: 168lbs. 0.0oz. [id number]; 31.8 BMI Method:Stated Progress/Results/Core Measures Suspected Sepsis Recent Fever Within 48 Hours: No Infection Criteria Present: None New/Unexplained Altered Menta: No Sepsis Screen: No Definite Risk SIRS Temperature:97.8 Pulse: 81 Respiratory Rate: 17 Blood Pressure 136 /79 Mean: 98 Results/Orders Micro Results Microbiology 12/06/18 Influenza Types A,B Antigen (MAT) - Final, Complete My Orders Orders - ZARINA DAVIDSON MD Influenza A And B Antigens (12/06/18 09:16) Vital Signs/I&O 12/06/18 12/06/18 09:11 09:11 Temp 97.8 Pulse 81 Resp 17 B/P (MAP) 136/79 (98) Pulse Ox 100 O2 Delivery Room Air Room Air Capillary Refill : Less Than 3 Seconds Blood Pressure Mean: 98 Departure Impression Primary Impression: Flu-like symptoms Disposition: HOME, SELF-CARE Condition: Stable Departure-Patient Inst. Decision time for Depature: 10:45 Referrals: NO,LOCAL PHYSICIAN (PCP/Family) Primary Care Physician Patient Instructions: Viral Upper Respiratory Infection, Adult (DC) Add. Discharge Instructions: Your influenza screen was negative. You likely have a viral illness mimicking flu symptoms. For pain or fever you may take ibuprofen up to 600 mg every 6 hours as needed and/or Tylenol (acetaminophen) up to 1000 mg every 6 hours. For cough you may take an [id number]-[id number] cough suppression medication such as dextromethorphan (DM). Follow instructions on the packaging. Drink plenty of clear liquids. Return to care if you have worsening symptoms. All discharge instructions reviewed with patient and/or family. Voiced understanding. Work/School Note: Work Release Form Date Seen in the Emergency Department: Dec 06, 2018 Return to Work: Dec 08, 2018 Restrictions: Return-No Fever (24hrs) ZARINA DAVIDSON MD Dec 06, 2018 11:20
[2018-12-06 11:26] VITALS: BP 120/72
== END 2018-12-06 11:23 | disposition home or self-care (01) ==
LOC: EDUNIT# 09:03 → ER 09:04
DX: R05 Cough (principal); R11.0 Nausea; R19.7 Diarrhea, unspecified; J45.909 Unspecified asthma, uncomplicated; K21.9 Gastro-esophageal reflux disease without esophagitis; F41.9 Anxiety disorder, unspecified; F32.9 Major depressive disorder, single episode, unspecified; Z88.1 Allergy status to other antibiotic agents; Z91.030 Bee allergy status
CPT/HCPCS: 87804

== ENCOUNTER 2018-12-13 17:39 | Emergency (ER) | payer SELFPAY ==
[~2018-12-13] VITALS: Ht 152.4 cm; Wt 78.9 kg
--- OUTSIDE RECORDS SUMMARY | 2018-12-13 17:45 | XMS REPORT ---
Author Author Migration, Doctor Organization [facility] Address Unknown Phone Unavailable Care Team Providers Care Anatomic Pathology Assistant Name Role Phone Migration, Doctor Unavailable Unavailable PROBLEMS Type Condition ICD9-CM Code SNU32-[place] Code Onset Dates Condition Status SNOMED Code Problem Depression, unspecified depression type F32.9 Active 22547918 Problem Irregular periods/menstrual cycles N92.6 Active 89612157 Problem Seasonal allergic rhinitis, unspecified allergic rhinitis trigger J30.2 Active 098794532 Problem Missed period N92.6 Active 99861724 Problem Seasonal allergies J30.2 Active 698146058 Problem Anemia, O90.81 Active 286085035 Problem Other headache syndrome G44.89 Active 266021696 Problem Dysthymic disorder F34.1 Active 96916590 Problem DANIELLA (generalized anxiety disorder) F41.1 Active 53362272 ALLERGIES No Information ENCOUNTERS Encounter Location Date Diagnosis [facility] [id number] [place] [address] 31688 -6681 Sep, Gastroenteritis K52.9 [facility] [id number] [place] [address] 87885 -6590 Sep, [facility] [id number] [place] [address] 78292 -0424 Mar, Pain of left calf M79.662 and Muscle spasm of left calf M62.831 [facility] [id number] [place] [address] 74458- 2391 Mar, care in second trimester Z34.92 [facility] [address] 79483- 8530 Mar, Bilateral impacted cerumen H61.23 [facility] [id number] [place] [address] 78922- 0433 Feb, [facility] [address] [place] [address] 23 Feb, 2018 [facility] [id number] [place] [address] 15068- 6461 20 Feb, 2018 Normal in multigravida Z34.80 [facility] [id number] [place] [address] 89788- 0416 13 Feb, 2018 Painful urination R30.9 and Encounter for supervision of normal in second trimester Z34.92 [facility] [id number] [place] [address] 81064 -3106 07 Feb, 2018 Seasonal allergies J30.2 [place] [address] 18545- 3604 Feb, [facility] [id number] [place] [address] 28729- 5601 Feb, [facility] [address] 63618 -9190 January, Seasonal allergic rhinitis, unspecified trigger J30.2 [facility] [id number] [place] [address] 87359 -6583 January, [facility] [id number] [place] [address] 69560 -2769 January, Viral gastroenteritis A08.4 [facility] [id number] [place] [address] 01941- 8364 January, [facility] [id number] [place] [address] 23240- 2673 January, care in first trimester Z34.91 [facility] [address] 76601- 7058 January, [facility] [id number] [place] [address] 49315 -8257 January, Left ankle pain, unspecified chronicity M25.572 [facility] [id number] [place] [address] 57173- 8089 January, [facility] [id number] [place] [address] 86575- 6745 January, Dysthymic disorder F34.1 and DANIELLA (generalized anxiety disorder) F41.1 [facility] [id number] [place] [address] 11398 -8358 January, Impacted cerumen of both ears H61.23 [facility] [address] 17596- 4966 Dec, [facility] [address] 02851- 9127 Dec, in multigravida Z34.80 [place] [address] 44580- 2278 Dec, DANIELLA (generalized anxiety disorder) F41.1 and Dysthymic disorder F34.1 [facility] [id number] [place] [address] 99146- 7602 Dec, [facility] [address] 00219- 2088 Nov, [place] [id number] [place] [address] 95756- 6585 Nov, [place] [id number] [place] [address] 11598- 3606 Nov, Painful urination R30.9 ; Vaginal yeast infection B37.3 and Early stage of Z34.90 [facility] [id number] [place] [address] 07756- 9397 Nov, in multigravida Z34.80 [place] [id number] [place] [address] 51738- 0546 Nov, Dysfunction of right eustachian tube H69.81 and Bilateral impacted cerumen H61.23 [facility] [id number] [place] [address] 24425- 3317 Nov, [facility] [id number] [place] [address] 00685- 5818 Nov, [place] [id number] [place] [address] 82229- 0717 Nov, [facility] [address] 31504 -2270 Nov, Missed period N92.6 [place] [address] 55625- 3250 Sep, DANIELLA (generalized anxiety disorder) F41.1 and Dysthymic disorder F34.1 [facility] [address] 50618 -7539 Aug, Acute nasopharyngitis J00 [place] [address] 01141- 6048 Jul, Irregular periods/menstrual cycles N92.6 [place] [id number] [place] [address] 32315- 6866 Jul, Bilateral impacted cerumen H61.23 [place] [address] 03821- 6085 Jul, DANIELLA (generalized anxiety disorder) F41.1 and Dysthymic disorder F34.1 [place] [id number] [place] [address] 18349- 1334 Jun, [place] [id number] [place] [address] 68068- 7237 Jun, Dysthymic disorder F34.1 [place] [address] 34075- 3442 Jun, Anemia, O90.81 ; Lower abdominal pain R10.30 ; Allergic contact dermatitis due to adhesives L23.1 and Other headache syndrome G44.89 [place] [address] 35867- 6234 Jun, 39 weeks gestation of Z3A.39 [place] [id number] [place] [address] 94915- 7368 27 May, 2017 care in third trimester Z34.93 [facility] [address] 74299 -4992 24 May, 2017 Acute seasonal allergic rhinitis, unspecified trigger J30.2 [place] [address] 73055- 8135 20 May, 2017 Normal in multigravida Z34.80 [facility] [address] 24375 -4457 17 May, 2017 Urinary frequency R35.0 and Pain of round ligament N94.9 [place] [address] 00306- 2394 13 May, 2017 35 weeks gestation of Z3A.35 [place] [address] 94470- 5635 Apr, High risk sexual behavior Z72.51 and 33 weeks gestation of Z3A.33 [place] [address] 02272- 8667 Apr, care in third trimester Z34.93 [facility] [place] [id number] [place] [address] 87210 -8815 Apr, Bilateral impacted cerumen H61.23 [place] [address] 06677- 5215 Apr, 30 weeks gestation of Z3A.30 and Encounter for immunization Z23 [place] [address] 70739- 6095 Mar, 28 weeks gestation of Z3A.28 [place] [address] 00726- 7255 Mar, [place] [id number] [address]- 0168 13 Mar, 2017 [facility] [id number] [place] [address] 20873- 5122 Mar, [facility] [id number] [place] [address] 58152- 5891 Mar, 26 weeks gestation of Z3A.26 [facility] [id number] [place] [address] 80620 -8223 Mar, Acute back pain M54.9 [place] [id number] [place] [address] 37049- 7973 Feb, 24 weeks gestation of Z3A.24 [facility] [id number] [place] [address] 99132 -4213 27 Feb, 2017 Lower abdominal pain R10.30 [facility] [address] [place] [id number] [place] [address] 27479 -2877 Feb, Gastroenteritis and colitis, viral A08.4 [place] [id number] [place] [address] 42819- 5108 14 Feb, 2017 care in second trimester Z34.92 [place] [id number] [place] [address] 77530- 5560 07 Feb, 2017 [facility] [address] [place] [id number] [place] [address] 48767 -9949 Feb, Abscess L02.91 [facility] [id number] [place] [address] 88012 -4388 Feb, Vaginal flavia B37.3 [place] [id number] [place] [address] 28942- 0520 January, 20 weeks gestation of Z3A.20 [place] [id number] [place] [address] 23720- 8003 January, [facility] [address] 95100 -6842 January, Seasonal allergic rhinitis, unspecified allergic rhinitis trigger J30.2 [facility] [address] [place] [address] 83703 -8332 January, Dermatitis L30.9 and Bug bites, initial encounter W57.XXXA [address] 30570- 5806 January, Sore throat J02.9 and Seasonal allergic rhinitis, unspecified allergic rhinitis trigger J30.2 [place] [address] 72036- 0886 January, 16 weeks gestation of Z3A.16 [place] [address] 04160- 7920 Dec, care in first trimester Z34.[address] 71714- 7488 Nov, care in first trimester Z34.91 and Normal in multigravida Z34.80 [facility] [address] 28089 -7083 Oct, Nausea and vomiting during O21.9 [place] [address] 52359- 7008 Oct, [place] [address] 70968- 4513 Oct, [address] 56029- 6281 Oct, Encounter for test, result unknown Z32.[address] 06544- 4657 Sep, Irregular periods/menstrual cycles N92.6 ; Sore throat J02.9 ; Nausea R11.0 and Right ear impacted cerumen H61.21 [facility] N [address] [place] [address] -4655 05 Jul, 2016 Vaginal discharge N89.8 ; Other specified bacterial agents as the cause of diseases classified elsewhere B96.89 and Acute vaginitis N76.0 [place] [id number] [place] [address] 63753- 9158 10 Jun, 2016 Depression, unspecified depression type F32.9 [place] [address] 84059- 2366 23 May, 2016 Vaginal candidiasis B37.3 [place] [address] 36369- 6749 20 May, 2016 Acute pharyngitis, unspecified etiology J02.9 [place] [id number] [place] [address] 33861- 1841 19 May, 2016 Depression, unspecified depression type F32.9 [place] [address] 39150- 9838 12 May, 2016 Depression, unspecified depression type F32.9 [place] [id number] [place] [address] 79075- 9334 12 May, 2016 Dysthymic disorder F34.1 [facility] [id number] [place] [address] 20653 -4290 10 Apr, 2016 Acute suppurative otitis media of right ear without spontaneous rupture of tympanic membrane, recurrence not specified H66.001 [facility] [id number] [place] [address] 04493 -4062 Mar, Herpes zoster without complication B02.9 [facility] [id number] [place] [address] 27198 -8385 18 Dec, 2015 Allergic rhinitis J30.9 [facility] [id number] [place] [address] 67984 -4087 03 Dec, 2015 Lumbago M54.5 [facility] [address] 02504 -0830 Oct, Dysuria R30.0 and Urinary tract infection N39.0 [facility] [id number] [place] [address] 18302 -2655 Sep, Acute nasopharyngitis J00 and Strep pharyngitis J02.0 [facility] [id number] [place] [address] 87129- 8340 Jul, Upper respiratory tract infection, unspecified type J06.9 [facility] [id number] [place] [address] 86444- 7257 Jun, Irritable bowel syndrome without diarrhea K58.9 [place] [address] 53050- 9831 Jun, [place] [address] 06740- 6792 May, [place] [address] 01453- 7624 May, [place] [address] 77754- 8179 May, Otitis externa of left ear 380.10 [place] [id number] [place] [address] 41485- 2893 May, Pain in joint, ankle and foot 719.47 [place] [id number] [place] [address] 79346- 5068 Apr, Pain in joint, ankle and foot 719.47 [place] [id number] [place] [address] 71044- 8917 Mar, Dysuria 788.1 and Incontinence in female 625.6 [place] [id number] [place] [address] 55334- 0961 Feb, Plantar fasciitis of right foot 728.71 ; Ankle weakness 719.67 and Ankle pain, chronic 719.47 [place] [address] [place] [address]- 9388 Feb, [facility] [address] [id number] [place] [address]- 0365 Feb, Belching 787.3 and Chest wall pain 786.52 [facility] [address] [id number] [place] [address]- 7965 Dec, [facility] [address] [id number] [place] [address], [place] [address]- 2835 Dec, [facility] [address] [id number] [place] [address]- 1137 Nov, [facility] [address] [id number] [place] [address], [place] [address]- 0965 Nov, [facility] [address] [place] [address]- 2619 Sep, [facility] [id number] [place] [address], [place] [address]- 9442 Sep, [facility] [id number] [place] [address]- 9540 Sep, [facility] [address] [place] [address]- 3262 Sep, [facility] [address] [place] [address]- 0398 Aug, [facility] [address] [id number] [address]- 4066 Aug, [facility] [address] [id number] [place] [address]- 2363 Aug, [facility] [address] [id number] [place] [address]- 3715 Aug, [facility] [address] [facility] [id number] [place] [address]- 6735 Aug, [facility] [address] [place] [address]- 2856 Aug, [facility] [place] [facility] [address] [id number] [place] [address]- 9033 Aug, [facility] [place] [facility] [address] [id number] [place] 0284 Aug, [facility] [place] [facility] [address] [id number] [place] [address]- 8502 Aug, [facility] [place] [facility] [address] [id number] [place] [address]- 6084 Aug, [facility] [place] [facility] [address] [id number] [place] [address]- 0577 Aug, [facility] [place] [facility] [address] [id number] [place] [address]- 5667 Aug, [facility] [place] [facility] [address] [id number] [place] [address]- 5716 Aug, [facility] [place] [facility] [address] [id number] [place] [address]- 3282 Aug, [facility] [place] [facility] [address] [id number] [place] [address]- 2739 Jul, [facility] [place] [facility] [address] [id number] [place] [address]- 0839 Jul, [facility] [place] [facility] [address] [id number], [place] [address]- 5621 Jul, [facility] [place] [facility] [address] [id number], [place] [address]- 7824 Jul, [facility] [place] [facility] [address] [id number] [place] [address]- 5478 Jul, [facility] [place] [facility] [address] [id number] [place] [address]- 6034 Jul, [facility] [place] [facility] [address] [id number] [place] [address]- 0041 Jul, [facility] [place] [facility] [address] [id number] [place] [address]- 2260 Jun, 2013 [facility] [place] [facility] [address] [id number] [place] [address]- 3376 Jun, [facility] [place] [facility] [address] [id number] [place] [address]- 9604 Jun, [facility] [place] [facility] [address] [id number] [place] [address]- 5117 Jun, [facility] [place] [facility] [address] [id number] [place] [address]- 3166 Jun, [facility] [place] [facility] [address] [id number] [place] [address]- 6589 Jun, [facility] [place] [facility] [address] [id number] [place] [address]- 2504 Jun, [facility] [place] [facility] [address] [id number] [place] [address]- 0436 Jun, [facility] [place] [facility] [address] [id number] [place] [address]- 4161 Jun, [facility] [place] [facility] [address] [id number] [place] [address]- 9434 Jun, [facility] [place] [facility] [address] [id number] [place] [address]- 8973 Jun, [facility] [place] [facility] [address] [id number] [place] [address]- 6730 Jun, [facility] [place] [facility] [address] [id number] [place] [address]- 9896 Jun, [facility] [place] [facility] [address] [id number] [place] [address]- 7921 Jun, [facility] [place] [facility] [address] [id number] [place] [address]- 7501 May, [facility] [place] [facility] [address] [id number] [place] 9504 May, [facility] [place] [facility] [address] [id number] [place] [address]- 1837 May, [facility] [place] [facility] [address] [id number] [place] [address]- 5080 May, [facility] [place] [facility] [address] [id number] [place] [address]- 8123 May, [facility] [place] [facility] [address] [id number] [place] [address]- 0894 Apr, [facility] [place] [facility] [address] [id number] [place] [address]- 7403 Apr, [facility] [place] [facility] [address] [id number] [place] [address]- 8399 Apr, [facility] [place] [facility] [address] [id number] [place] [address]- 0090 Apr, [facility] [place] [facility] [address] [id number] [place] [address]- 5818 Mar, [facility] [place] [facility] [address] [id number] [place] [address]- 9234 Mar, [facility] [place] [facility] [address] [id number] [place] [address]- 3002 Mar, [facility] [place] [facility] [address] [id number] [place] [address]- 6444 Mar, [facility] [place] [facility] [address] [id number] [place] [address]- 1458 Mar, [facility] [place] [facility] [address] [id number] [place] [address]- 3876 Mar, [facility] [place] [facility] [address] [id number] [place] [address]- 5369 Mar, [facility] [place] [facility] [address] [id number] [place] [address]- 3507 Mar, [facility] [place] [facility] [address] [id number] [place] [address]- 1706 Feb, [facility] [place] [facility] [address] [id number] [place] [address]- 3070 Feb, [facility] [place] [facility] [address] [id number] [place] [address]- 6107 Feb, [facility] [place] [facility] [address] [id number] [place] [address]- 1457 Feb, [facility] [place] [facility] [address] [id number] [place] [address]- 1941 Feb, [facility] [place] [facility] [address] [id number] [place] [address] Feb, [facility] [place] [facility] [address] [id number] [place] [address] Feb, [facility] [place] [facility] [address] [id number] [place] [address] Feb, [facility] [place] [facility] [address] [id number] [place] [address] January, [facility] [place] [facility] [address] [id number] [place] [address] January, [facility] [place] [facility] [address] [id number] [place] [address] January, [facility] [place] [facility] [address] [id number] [place] [address] January, [facility] [place] [facility] [address] [id number] [place] [address] January, [facility] [place] [facility] [address] [id number] [place] [address] January, [facility] [place] [facility] [address] [id number] [place] [address] Dec, [facility] [place] [facility] [address] [id number] [place] [address] Dec, [facility] [place] [facility] [address] [id number] [place] [address] Dec, [facility] [place] [facility] [address] [id number] [place] [address] Dec, [facility] [place] [facility] [address] [id number] [place] [address] Dec, [facility] [place] [facility] [address] [id number] [place] [address] Dec, [facility] [place] [facility] [address] [id number] [place] [address] Dec, [facility] [place] [facility] [address] [id number] [place] [address] Dec, [facility] [place] [facility] [address] [id number] [place] [address] Oct, [facility] [place] [facility] [address] [id number] [place] [address] Oct, [facility] [place] [facility] [address] [id number] [place] [address] Aug, [facility] [place] [facility] [address] [id number] [place] [address] Aug, [facility] [place] [facility] [address] [id number] [place] [address] Jul, [facility] [place] [facility] [address] [id number] [place] [address] Jul, [facility] [place] [facility] [address] [id number] [place] [address] Mar, [facility] [place] [facility] [address] [id number] [place] [address] Mar, [facility] [place] [facility] [address] [id number] [place] [address] Mar, [facility] [place] [facility] [address] [id number] [place] [address] Feb, [facility] [address] [id number] [place] [address] Feb, [facility] [address] [id number] [place] [address] Feb, [facility] [address] [id number] [place] [address] January, [facility] [address] [id number] [place] [address] January, [facility] [address] [id number] [place] [address] January, [facility] [address] [id number] [place] [address] January, [facility] [address] [id number] [place] [address] January, [facility] [address] [id number] [place] [address] 79[address] January, [facility] [address] [id number] [place] [address] January, [facility] [address] [id number] [place] [address] Dec, [facility] [address] [id number] [place] [address] Dec, [facility] [place] [facility] [address] [id number] [place] [address]66 Dec, [facility] [place] [facility] [address] [id number] [place] [address] Dec, [facility] [place] [facility] [address] [id number] [place] [address] Nov, [facility] [place] [facility] [address] [id number] [place] [address] Nov, [facility] [place] [facility] [address] [id number] [place] [address] Nov, [facility] [address] [id number] [place] [address] Oct, [facility] [place] [facility] [address] [id number] [place] [address]46 25 Oct, 2012 [facility] [place] [facility] [address] [id number] [place] [address] Oct, [facility] [place] [facility] [address] [id number] [place] [address] Oct, [facility] [place] [facility] [address] [id number] [place] [address] Oct, [facility] [place] [facility] [address] [id number] [place] [address] 05 Oct, 2012 [facility] [place] [facility] [address] [id number] [place] [address] 30 Sep, 2012 [facility] [address] [id number] [place] [address] Sep, [facility] [place] [facility] [address] [id number] [place] [address] Sep, [facility] [place] [facility] [address] [id number] [place] [address] Sep, [facility] [place] [facility] [address] [id number] [place] [address] Sep, [facility] [place] [facility] [address] [id number] [place] [address] Aug, [facility] [place] [facility] [address] [id number] [place] [address] Aug, [facility] [place] [facility] [address] [id number] [place] [address] Aug, [facility] [place] [facility] [address] [id number] [place] [address] Aug, [facility] [place] [facility] [address] [id number] [place] [address] Aug, [facility] [place] [facility] [address] [id number] [place] [address] Aug, [facility] [place] [facility] [address] [id number] [place] [address] Jul, [facility] [place] [facility] [address] [id number] [place] [address] Jul, [facility] [place] [facility] [address] [id number] [place] [address] Jul, [facility] [place] [facility] [address] [id number] [place] [address] Jul, [facility] [place] [facility] [address] [id number] [place] [address] Jul, [facility] [place] [facility] [address] [id number] [place] [address] Jul, [facility] [place] [facility] [address] [id number] [place] [address] 15 Jul, 2012 [facility] [place] [facility] [address] [id number] [place] [address] 15 Jul, 2012 [facility] [place] [facility] [address] [id number], [place] [address] 14 Jul, 2012 [facility] [place] [facility] [address] [id number], [place] [address] Jul, [facility] [place] [facility] [address] [id number] [place] [address] Jul, [facility] [place] [facility] [address] [id number], [place] [address] 09 Jul, 2012 [facility] [place] [facility] [address] [facility] [id number], [place] [address] 08 Jul, 2012 [facility] [place] [facility] [address] [id number] [place] [address] 08 Jul, 2012 [facility] [place] [facility] [address] [id number] [place] [address] 08 Jul, 2012 [facility] [place] [facility] [address] [id number] [place] [address] 39[address] Jul, [facility] [place] [facility] [address] [id number] [place] [address] Jul, [facility] [place] [facility] [address] [id number] [place] [address]- 2012 Jul, [facility] [place] [facility] [address] [id number] [place] [address] Jul, [facility] [place] [facility] [address] [id number] [place] [address] Jun, [facility] [place] [facility] [address] [id number] [place] [address] Jun, [facility] [place] [facility] [address] [id number] [place] [address] May, [facility] [place] [facility] [address] [id number] [place] [address] Apr, [facility] [place] [facility] [address] [facility] [id number] [place] [address] Mar, [facility] [place] [facility] [address] [id number] [place] [address] Feb, [facility] [place] [facility] [address] [id number] [place] [address] Feb, [facility] [place] [facility] [address] [id number] [place] [address] Feb, [facility] [place] [facility] [address] [facility] [id number] [place] [address]- [address] January, [facility] [place] [facility] [address] [id number] [place] [address] January, [facility] [place] [facility] [address] [id number] [place] [address] Dec, [facility] [place] [facility] [address] [id number] [place] [address]- [address] Dec, [facility] [place] [facility] [address] [id number] [place] [address]- [address] Nov, [facility] [place] [facility] [address] [id number] [place] [address]- [address] Aug, [facility] [place] [facility] [address] [id number] [place] [address]- [address] Jul, [facility] [place] [facility] [address] [id number] [place] [address] Jul, [facility] [place] [facility] [address] [id number] [place] [address] 1987 Jul, [facility] [place] [facility] [address] [id number] [place] [address]- [address] Jun, [facility] [place] [facility] [address] [id number] [place] [address] Jun, [facility] [place] [facility] [address] [id number] [place] [address]- [address] 14 May, 2011 [facility] [place] [facility] [address] [id number] [place] [address]- [address] Apr, [facility] [place] [facility] [address] [id number] [place] [address] January, [facility] [place] [facility] [address] [id number] [place] [address]- 69[address] Dec, [facility] [place] [facility] [address] [id number] [place] [address]- [address] 16 Nov, 2010 [facility] [place] [facility] [address] [id number] [place] [address]- [address] 10 Oct, 2010 [facility] [place] [facility] [address] [id number] [place] [address] Jun, [facility] [address] [facility] [id number], [place] [address] Jun, [facility] [address] [id number], [place] [address] Oct, [facility] [address] [id number], [place] [address] Aug, [facility] [address] [id number], [place] [address] Jul, [facility] [address] [facility] [id number], [place] [address] 25[address] Dec, IMMUNIZATIONS No Known Immunizations SOCIAL HISTORY Never Assessed REASON FOR VISIT [facility] [place] PLAN OF CARE VITAL SIGNS MEDICATIONS No Known Medications RESULTS No Results PROCEDURES No Known procedures INSTRUCTIONS MEDICATIONS ADMINISTERED No Known Medications MEDICAL (GENERAL) HISTORY Type Description Date Medical History Heart murmur Medical History Asthma Medical History Depression, unspecified depression type Surgical History section x 4 2012, 2013, 2016 Surgical History orthopedic surgery-ligament repair, left ankle Surgical History Tubial Jun 29 2018 Hospitalization History Dehydration during multiple stays Hospitalization History Childbirth Hospitalization History Denies any past psychiatric hospitalization Hospitalization History High blood pressure Hospitalization History Attempted overdose on Zoloft and Benadryl 2018
--- OUTSIDE RECORDS SUMMARY | 2018-12-13 17:46 | XMS REPORT ---
Author Author ZAYRA GOMEZ [facility] Address [address] [place] [address] Care Team Providers Care Product Transfer Pumper Name Role Phone ZAYRA GOMEZ Unavailable PROBLEMS Type Condition ICD9-CM Code TWT43-FN Code Onset Dates Condition Status SNOMED Code Problem Depression, unspecified depression type F32.9 Active 88253959 Problem Seasonal allergic rhinitis, unspecified allergic rhinitis trigger J30.2 Active 046012467 Problem Irregular periods/menstrual cycles N92.6 Active 77361456 Problem Seasonal allergies J30.2 Active 351637449 Problem Missed period N92.6 Active 72480417 Problem Other headache syndrome G44.89 Active 225297389 Problem Anemia, O90.81 Active 376259236 Problem DANIELLA (generalized anxiety disorder) F41.1 Active 62599182 Problem Dysthymic disorder F34.1 Active 78277724 ALLERGIES No Information ENCOUNTERS Encounter Location Date Diagnosis [facility] [address] [address] Mar, Pain of left calf M79.662 and Muscle spasm of left calf M62.831 [place] [id number] [place] [address] 22251- 6663 Mar, care in second trimester Z34.92 [facility] [id number] [place] [address] 51094- 9200 Mar, Bilateral impacted cerumen H61.23 [place] [address] 73412- 8773 Feb, [facility] [id number] [place] [address] 58199 -1917 Feb, [facility] [address] 15321- 4212 20 Feb, 2018 Normal in multigravida Z34.80 [facility] [id number] [place] [address] 61127- 4993 13 Feb, 2018 Painful urination R30.9 and Encounter for supervision of normal in second trimester Z34.92 [facility] [id number] [place] [address] 10670 -3362 07 Feb, 2018 Seasonal allergies J30.2 [facility] [address] 00652- 5464 Feb, [place] [address] 79673- 5721 Feb, [facility] [address] 85770 -5058 January, Seasonal allergic rhinitis, unspecified trigger J30.2 [facility] [address] 58723 -9581 January, [facility] [address] 16488 -2977 January, Viral gastroenteritis A08.4 [place] [address] 43224- 0424 January, [facility] [id number] [place] [address] 67688- 3525 January, care in first trimester Z34.91 [facility] [id number] [place] [address] 15500- 8481 January, [facility] [id number] [place] [address] 35084 -3064 January, Left ankle pain, unspecified chronicity M25.572 [facility] [id number] [place] [address] 48602- 1019 January, [facility] [id number] [place] [address] 87333- 9842 January, Dysthymic disorder F34.1 and DANIELLA (generalized anxiety disorder) F41.1 [facility] [id number] [place] [address] 65708 -3354 January, Impacted cerumen of both ears H61.23 [facility] [id number] [place] [address] 33388- 0223 Dec, [facility] [address] 60691- 1058 Dec, in multigravida Z34.80 [place] [address] 53843- 5412 Dec, DANIELLA (generalized anxiety disorder) F41.1 and Dysthymic disorder F34.1 [facility] [id number] [place] [address] 19113- 1652 Dec, [facility] [address] 63395- 0898 Nov, [place] [id number] [place] [address] 47733- 7187 Nov, [place] [address] 30929- 7843 Nov, Painful urination R30.9 ; Vaginal yeast infection B37.3 and Early stage of Z34.90 [place] [id number] [place] [address] 05973- 5271 Nov, in multigravida Z34.80 [place] [id number] [place] [address] 32106- 9969 Nov, Dysfunction of right eustachian tube H69.81 and Bilateral impacted cerumen H61.23 [facility] [id number] [place] [address] 65890- 0007 Nov, [facility] [address] 16977- 6229 Nov, [facility] [id number] [place] [address] 32641- 6750 Nov, [facility] [id number] [place] [address] 87054 -6820 Nov, Missed period N92.6 [place] [id number] [place] [address] 93079- 4352 Sep, DANIELLA (generalized anxiety disorder) F41.1 and Dysthymic disorder F34.1 [facility] [id number] [place] [address] 79727 -2582 Aug, Acute nasopharyngitis J00 [place] [address] 02061- 1701 Jul, Irregular periods/menstrual cycles N92.6 [place] [address] 50035- 4371 Jul, Bilateral impacted cerumen H61.23 [place] [id number] [place] [address] 08501- 1044 Jul, DANIELLA (generalized anxiety disorder) F41.1 and Dysthymic disorder F34.1 [place] [id number] [place] [address] 04597- 2094 Jun, [place] [id number] [place] [address] 86777- 3649 Jun, Dysthymic disorder F34.1 [place] [id number] [place] [address] 36836- 9988 Jun, Anemia, O90.81 ; Lower abdominal pain R10.30 ; Allergic contact dermatitis due to adhesives L23.1 and Other headache syndrome G44.89 [place] [id number] [place] [address] 08285- 8907 Jun, 39 weeks gestation of Z3A.39 [place] [address] 70459- 7091 27 May, 2017 care in third trimester Z34.93 [facility] [id number] [place] [address] 51595 -7967 24 May, 2017 Acute seasonal allergic rhinitis, unspecified trigger J30.2 [place] [id number] [place] [address] 28059- 4037 20 May, 2017 Normal in multigravida Z34.80 [facility] [address] 50799 -9677 17 May, 2017 Urinary frequency R35.0 and Pain of round ligament N94.9 [place] [address] 28679- 1975 13 May, 2017 35 weeks gestation of Z3A.35 [place] [address] 88929- 5293 Apr, High risk sexual behavior Z72.51 and 33 weeks gestation of Z3A.33 [place] [address] 34836- 3119 Apr, care in third trimester Z34.93 [facility] [id number] [place] [address] 50557 -5727 Apr, Bilateral impacted cerumen H61.23 [place] [id number] [place] [address] 57616- 4049 Apr, 30 weeks gestation of Z3A.30 and Encounter for immunization Z23 [place] [id number] [place] [address] 91408- 6687 Mar, 28 weeks gestation of Z3A.28 [place] [address] 88121- 9813 Mar, [place] [id number] [place] [address] 97976- 0180 Mar, [place] [address] 28812- 9678 Mar, [place] [id number] [place] [address] 47727- 2065 12 Mar, 2017 26 weeks gestation of Z3A.26 [facility] [id number] [place] [address] 14835 -1904 03 Mar, 2017 Acute back pain M54.[address] 87037- 9650 28 Feb, 2017 24 weeks gestation of Z3A.24 [facility] [address] [place] [id number] [place] [address] 29519 -4938 27 Feb, 2017 Lower abdominal pain R10.30 [facility] [address] [place] [id number] [place] [address] 60150 -8017 25 Feb, 2017 Gastroenteritis and colitis, viral A08.[address] 02376- 0507 14 Feb, 2017 care in second trimester Z34.92 [place] [id number] [place] [address] 98256- 0367 07 Feb, 2017 [facility] [address] [place] [id number] [place] [address] 48430 -4361 04 Feb, 2017 Abscess L02.91 [facility] [place] [id number] [place] [address] 76123 -7800 Feb, Vaginal flavia B37.3 [place] [id number] [place] [address] 65963- 7967 January, 20 weeks gestation of Z3A.20 [place] [id number] [place] [address] 43744- 8225 January, [facility] [address] [place] [id number] [place] [address] 57950 -7120 January, Seasonal allergic rhinitis, unspecified allergic rhinitis trigger J30.2 [facility] [address] [place], [place] [id number] [address] January, Dermatitis L30.9 and Bug bites, initial encounter W57.XXXA [address] 53569- 4446 January, Sore throat J02.9 and Seasonal allergic rhinitis, unspecified allergic rhinitis trigger J30.[address] 59318- 8314 January, 16 weeks gestation of Z3A.16 [place] [address] 46237- 2315 Dec, care in first trimester Z34.[address] 23767- 9873 Nov, care in first trimester Z34.91 and Normal in multigravida Z34.80 [facility] [address] 90246 -5431 Oct, Nausea and vomiting during O21.[address] 22235- 8445 Oct, [place] [address] 05479- 6539 Oct, [address] 82458- 9796 Oct, Encounter for test, result unknown Z32.[address] 94311- 9216 Sep, Irregular periods/menstrual cycles N92.6 ; Sore throat J02.9 ; Nausea R11.0 and Right ear impacted cerumen H61.21 [facility] [address] [place] [id number] [place] [address] 02874 -0118 Jul, Vaginal discharge N89.8 ; Other specified bacterial agents as the cause of diseases classified elsewhere B96.89 and Acute vaginitis N76.0 [place] [id number] [place] [address] 61046- 4897 10 Jun, 2016 Depression, unspecified depression type F32.9 [place] [id number] [place] [address] 80693- 5449 23 May, 2016 Vaginal candidiasis B37.3 [place] [address] 82430- 3599 20 May, 2016 Acute pharyngitis, unspecified etiology J02.9 [place] [id number] [place] [address] 27673- 3377 19 May, 2016 Depression, unspecified depression type F32.9 [place] [id number] [place] [address] 68213- 5424 12 May, 2016 Depression, unspecified depression type F32.9 [place] [id number] [place] [address] 20993- 8911 12 May, 2016 Dysthymic disorder F34.1 [facility] [id number] [place] [address] 97890 -2505 Apr, Acute suppurative otitis media of right ear without spontaneous rupture of tympanic membrane, recurrence not specified H66.001 [facility] [id number] [place] [address] 74146 -4291 Mar, Herpes zoster without complication B02.9 [facility] [id number] [place] [address] 46454 -9012 Dec, Allergic rhinitis J30.9 [facility] [id number] [place] [address] 61161 -2656 Dec, Lumbago M54.5 [facility] [id number] [place] [address] 34543 -0617 18 Oct, 2015 Dysuria R30.0 and Urinary tract infection N39.0 [facility] [id number] [place] [address] 99658 -2687 Sep, Acute nasopharyngitis J00 and Strep pharyngitis J02.0 [place] [id number] [place] [address] 97660- 5045 Jul, Upper respiratory tract infection, unspecified type J06.9 [place] [id number] [place] [address] 91217- 2752 Jun, Irritable bowel syndrome without diarrhea K58.9 [place] [id number] [place] [address] 49164- 2382 Jun, [place] [address] 05481- 6418 May, [place] [id number] [place] [address] 98862- 8687 May, [place] [address] 69352- 1171 May, Otitis externa of left ear 380.10 [place] [id number] [place] [address] 58400- 1559 May, Pain in joint, ankle and foot 719.47 [place] [id number] [place] [address] 85681- 2096 Apr, Pain in joint, ankle and foot 719.47 [place] [id number] [place] [address] 66090- 9327 Mar, Dysuria 788.1 and Incontinence in female 625.6 [place] [id number] [place] [address] 73888- 0913 Feb, Plantar fasciitis of right foot 728.71 ; Ankle weakness 719.67 and Ankle pain, chronic 719.47 [place] [id number] [place] [address] 86659- 4878 Feb, [place] [id number] [place] [address] 82274- 0871 Feb, Belching 787.3 and Chest wall pain 786.52 [facility] [address] [id number] [place] [address]- 0779 14 Dec, 2014 [facility] [address] [id number] [place] [address]- 5908 Dec, [facility] [address] [id number] [place] [address]- 0452 16 Nov, 2014 [facility] [address] [id number] [place] [address]- 9889 Nov, [facility] [address] [id number] [place] [address], [place] [address]- 5838 Sep, [facility] [address] [facility] [id number] [place] [address]- 9222 Sep, [facility] [address] [place] [id number] [place] [address], [place] [address]- 8604 Sep, [facility] [address] [facility] [id number] [place] [address]- 1923 Sep, [facility] [address] [place] [id number] [place] [address]- 7530 Aug, [facility] [address] [facility] [id number] [place] [address]- 0291 Aug, [facility] [address] [place] [address] [id number] [place] [address]- 2179 Aug, [facility] [address] [facility] [id number] [address]- 2012 Aug, [facility] [address] [facility] [id number] [place] 6206 Aug, [facility] [address] [facility] [id number] [place] 5699 Aug, [facility] [address] [facility] [id number] 9441 Aug, [facility] [place] [facility] [address] [id number] [place] [address]- 3405 Aug, [facility] [place] [facility] [address] [id number] [place]- 6864 Aug, [facility] [place] [facility] [address] [id number] [place] [address]- 5023 Aug, [facility] [place] [facility] [address] [id number] [place] [address]- 8814 Aug, [facility] [place] [facility] [address] [id number] [place] [address]- 7128 Aug, [facility] [place] [facility] [address] [id number] [place] [address]- 8221 Aug, [facility] [place] [facility] [address] [id number] [place] [address]- 6178 Aug, [facility] [place] [facility] [address] [id number] [place] [address]- 2937 Jul, [facility] [place] [facility] [address] [id number] [place] [address]- 0460 Jul, [facility] [place] [facility] [address] [id number] [place] [address]- 1235 Jul, [facility] [place] [facility] [address] [id number] [place] [address]- 6404 Jul, [facility] [place] [facility] [address] [id number], [place] [address]- 3182 Jul, [facility] [place] [facility] [address] [id number] [place] [address]- 9285 Jul, [facility] [place] [facility] [address] [id number] [place] [address]- 4733 Jul, [facility] [place] [facility] [address] [id number] [place] 9356 Jun, [facility] [place] [facility] [address] [id number] [place] [address]- 5315 Jun, [facility] [place] [facility] [address] [id number] [place] [address]- 1164 Jun, [facility] [place] [facility] [address] [id number] [place] 6569 Jun, [facility] [place] [facility] [address] [id number] [place] [address]- 3960 Jun, [facility] [place] [facility] [address] [id number] [place] [address]- 2948 Jun, [facility] [place] [facility] [address] [id number] [place] [address]- 7297 Jun, [facility] [place] [facility] [address] [id number] [place] [address]- 7671 Jun, [facility] [place] [facility] [address] [id number] [place] [address]- 2726 Jun, [facility] [place] [facility] [address] [id number] [place] [address]- 6943 Jun, [facility] [place] [facility] [address] [id number] [place] [address]- 8930 Jun, [facility] [place] [facility] [address] [id number] [place] [address]- 3568 Jun, [facility] [place] [facility] [address] [id number], [place] [address]- 9463 Jun, [facility] [place] [facility] [address] [id number], [place] [address]- 3046 Jun, [facility] [place] [facility] [address] [id number] [place] [address]- 1789 May, [facility] [place] [facility] [address] [id number] [place] [address]- 3110 May, [facility] [place] [facility] [address] [id number] [place] [address]- 3970 May, [facility] [place] [facility] [address] [id number] [place] [address]- 5187 May, [facility] [place] [facility] [address] [id number] [place] [address]- 3088 May, [facility] [place] [facility] [address] [id number] [place] [address]- 0074 Apr, [facility] [place] [facility] [address] [id number] [place] [address]- 7606 Apr, [facility] [place] [facility] [address] [id number] [place] [address]- 9755 Apr, [facility] [place] [facility] [address] [id number] [place] [address]- 6087 Apr, [facility] [place] [facility] [address] [id number] [place] [address]- 9834 Mar, [facility] [place] [facility] [address] [id number] [place] [address]- 4385 Mar, [facility] [place] [facility] [address] [id number] [place] [address]- 9971 Mar, [facility] [place] [facility] [address] [id number] [place] [address]- 9259 Mar, [facility] [place] [facility] [address] [id number] [place] [address]- 9504 Mar, [facility] [place] [facility] [address] [id number] [place] [address]- 8070 Mar, [facility] [place] [facility] [address] [id number] [place] [address]- 9380 Mar, [facility] [place] [facility] [address] [id number] [place] [address]- 3768 Mar, [facility] [place] [facility] [address] [id number] [place] [address]- 6798 Feb, [facility] [place] [facility] [address] [id number] [place] 0873 Feb, [facility] [place] [facility] [address] [id number] [place] [address]- 0521 Feb, [facility] [place] [facility] [address] [id number] [place] [address]- 6524 Feb, [facility] [place] [facility] [address] [id number] [place] [address]- 6673 Feb, [facility] [place] [facility] [address] [id number] [place] [address]- 3910 Feb, [facility] [place] [facility] [address] [id number] [place] [address]- 7530 Feb, [facility] [place] [facility] [address] [id number] [place] [address]- 1332 Feb, [facility] [place] [facility] [address] [id number] [place] [address]- 5704 January, [facility] [place] [facility] [address] [id number] [place] [address]- 0394 January, [facility] [place] [facility] [address] [id number] [place] [address]- 1040 January, [facility] [place] [facility] [address] [id number] [place] [address] January, [facility] [place] [facility] [address] [id number] [place] [address] January, [facility] [place] [facility] [address] [id number] [place] [address] January, [facility] [place] [facility] [address] [id number] [place] [address] Dec, [facility] [place] [facility] [address] [id number] [place] [address] Dec, [facility] [place] [facility] [address] [id number] [place] [address] Dec, [facility] [place] [facility] [address] [id number] [place] [address] Dec, [facility] [address] [id number] [place] [address] Dec, [facility] [place] [facility] [address] [id number] [place] [address] Dec, [facility] [place] [facility] [address] [id number] [place] [address] Dec, [facility] [place] [facility] [address] [id number] [place] [address] Dec, [facility] [place] [facility] [address] [id number] [place] [address] Oct, [facility] [place] [facility] [address] [id number] [place] [address] Oct, [facility] [address] [id number] [place] [address] Aug, [facility] [place] [facility] [address] [id number] [place] [address] Aug, [facility] [place] [facility] [address] [id number] [place] [address] Jul, [facility] [place] [facility] [address] [id number] [place] [address] Jul, [facility] [place] [facility] [address] [id number] [place] [address] Mar, [facility] [place] [facility] [address] [id number] [place] [address] Mar, [facility] [place] [facility] [address] [id number] [place] [address] Mar, [facility] [place] [facility] [address] [id number] [place] [address] Feb, [facility] [place] [facility] [address] [id number] [place] [address] Feb, [facility] [place] [facility] [address] [id number] [place] [address] Feb, [facility] [address] [id number] [place] [address] January, [facility] [address] [id number] [place] [address] January, [facility] [address] [id number] [place] [address] January, [facility] [address] [id number] [place] [address] January, [facility] [address] [id number] [place] [address] January, [facility] [address] [id number] [place] [address] January, [facility] [address] [id number] [place] [address] January, [facility] [address] [id number] [place] [address] Dec, [facility] [address] [id number] [place] [address] Dec, [facility] [address] [id number] [place] [address] Dec, [facility] [address] [id number] [place] [address] Dec, [facility] [address] [id number] [place] [address] Nov, [facility] [place] [facility] [address] [id number] [place] [address] Nov, [facility] [place] [facility] [address] [id number] [place] [address] Nov, [facility] [address] [id number] [place] [address] Oct, [facility] [address] [id number] [place] [address] Oct, [facility] [address] [id number] [place] [address] Oct, [facility] [address] [id number] [place] [address] Oct, [facility] [address] [id number] [place] [address] Oct, [facility] [address] [id number] [place] [address] 05 Oct, 2012 [facility] [address] [id number] [place] [address] 30 Sep, 2012 [facility] [address] [id number] [place] [address] Sep, [facility] [address] [id number] [place] [address] Sep, [facility] [address] [id number] [place] [address] Sep, [facility] [address] [facility] [id number] [place] [address] Sep, [facility] [address] [id number] [place] [address] Aug, [facility] [address] [id number] [place] [address] Aug, [facility] [address] [id number] [place] [address] Aug, [facility] [address] [id number] [place] [address] Aug, [facility] [address] [id number] [place] [address] Aug, [facility] [place] [facility] [address] [id number] [place] [address] Aug, [facility] [place] [facility] [address] [id number] [place] [address] Jul, [facility] [place] [facility] [address] [id number] [place] [address] Jul, [facility] [place] [facility] [address] [id number] [place] [address] Jul, [facility] [place] [facility] [address] [id number] [place] [address] Jul, [facility] [place] [facility] [address] [id number] [place] [address] Jul, [facility] [place] [facility] [address] [id number] [place] [address] Jul, [facility] [place] [facility] [address] [id number] [place] [address] Jul, [facility] [place] [facility] [address] [id number] [place] [address] 15 Jul, 2012 [facility] [place] [facility] [address] [id number] [place] [address] 14 Jul, 2012 [facility] [place] [facility] [address] [id number] [place] [address] Jul, [facility] [place] [facility] [address] [id number] [place] [address] Jul, [facility] [place] [facility] [address] [id number] [place] [address] Jul, [facility] [place] [facility] [address] [id number] [place] [address] Jul, [facility] [place] [facility] [address] [id number] [place] [address] 08 Jul, 2012 [facility] [place] [facility] [address] [id number] [place] [address] Jul, [facility] [place] [facility] [address] [id number] [place] [address] 08 Jul, 2012 [facility] [place] [facility] [address] [id number] [place] [address] Jul, [facility] [place] [facility] [address] [facility] [id number] [place] [address] Jul, [facility] [place] [facility] [address] [id number] [place] [address] Jul, [facility] [place] [facility] [address] [id number] [place] [address] 25[address] Jun, [facility] [place] [facility] [address] [id number] [place] [address] 2546 Jun, [facility] [place] [facility] [address] [facility] [id number] [place] [address] May, [facility] [place] [facility] [address] [id number][place] [address] Apr, [facility] [place] [facility] [address] [id number][place] [address] Mar, [facility] [place] [facility] [address] [facility] [id number][place] [address] Feb, [facility] [place] [facility] [address] [facility] [id number][place] [address] Feb, [facility] [place] [facility] [address] [id number][place] [address] Feb, [facility] [place] [facility] [address] [id number] [place] [address] January, [facility] [place] [facility] [address] [facility] [id number][place] [address] January, [facility] [place] [facility] [address] [facility] [id number][place] [address] Dec, [facility] [place] [facility] [address] [id number] [place] [address] 25 Dec, 2011 [facility] [place] [facility] [address] [id number] [place] [address] 08 Nov, 2011 [facility] [place] [facility] [address] [id number] [place] [address]- [address] 12 Aug, 2011 [facility] [place] [facility] [address] [id number] [place] [address]- [address] 16 Jul, 2011 [facility] [place] [facility] [address] [id number] [place] [address]- [address] 16 Jul, 2011 [facility] [place] [facility] [address] [id number] [place] [address]- [address] 16 Jul, 2011 [facility] [place] [facility] [address] [id number] [place] [address]- [address] 12 Jun, 2011 [facility] [place] [facility] [address] [id number] [place] [address]- [address] 12 Jun, 2011 [facility] [place] [facility] [address] [id number] [place] [address]- [address] 14 May, 2011 [facility] [place] [facility] [address] [id number] [place] [address]- [address] 10 Apr, 2011 [facility] [place] [facility] [address] [id number] [place] [address] January, [facility] [place] [facility] [address] [id number] [place] [address] 13 Dec, 2010 [facility] [place] [facility] [address] [id number] [place] [address] 16 Nov, 2010 [facility] [place] [facility] [address] [id number] [place] [address]- [address] 10 Oct, 2010 [facility] [place] [facility] [address] [id number] [place] [address]- [address] 14 Jun, 2010 [facility] [place] [facility] [address] [id number] [place] [address] Jun, [facility] [address] [facility] [id number][place] [address] Oct, [facility] [address] [id number] [address] Aug, [facility] [address] [id number] [address] Jul, [facility] [address] [id number] [address] Dec, IMMUNIZATIONS No Known Immunizations SOCIAL HISTORY Never Assessed REASON FOR VISIT PLAN OF CARE VITAL SIGNS MEDICATIONS No [...]
--- OUTSIDE RECORDS SUMMARY | 2018-12-13 17:46 | XMS REPORT ---
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 Name Role Phone ZAYRA GOMEZ Unavailable PROBLEMS Type Condition ICD9-CM Code [id number] Code Onset Dates Condition Status SNOMED Code Problem Depression, unspecified depression type F32.9 Active 33591260 Problem Seasonal allergic rhinitis, unspecified allergic rhinitis trigger J30.2 Active 829753746 Problem Irregular periods/menstrual cycles N92.6 Active 43073071 Problem Seasonal allergies J30.2 Active 315795518 Problem Missed period N92.6 Active 19788084 Problem Other headache syndrome G44.89 Active 261748746 Problem Anemia, O90.81 Active 820373173 Problem DANIELLA (generalized anxiety disorder) F41.1 Active 64461033 Problem Dysthymic disorder F34.1 Active 31282344 ALLERGIES Substance Reaction Event Type Date Status Cefaclor Unknown Drug Allergy Feb, Active ENCOUNTERS Encounter Location Date Diagnosis [facility] [id number] [place] [address] 59394 -5793 Mar, Pain of left calf M79.662 and Muscle spasm of left calf M62.831 [facility] [address] [place] [address] 60942- 1603 Mar, care in second trimester Z34.92 [facility] [address] [place] [address] 30438- 6257 Mar, Bilateral impacted cerumen H61.23 [facility] [address] [place] [id number] [place] [address] 45864- 3297 Feb, [facility] [address] [address] Feb, [facility] [address] [id number] [place] [address] 78422- 8855 20 Feb, 2018 Normal in multigravida Z34.80 [place] [address] 95837- 7105 13 Feb, 2018 Painful urination R30.9 and Encounter for supervision of normal in second trimester Z34.92 [facility] [id number] [place] [address] 72129 -4375 07 Feb, 2018 Seasonal allergies J30.2 [facility] [address] 92516- 9955 Feb, [place] [address] 80345- 0333 Feb, [facility] [address] 72850 -2628 January, Seasonal allergic rhinitis, unspecified trigger J30.2 [facility] [address] [address] [id number] [place] [address] 09933 -4433 January, [facility] [address] [address] [id number] [place] [address] 89029 -0848 January, Viral gastroenteritis A08.4 [facility] [address] [address] [id number] [place] [address] 57197- 2084 January, [place] [address] [address] [id number] [place] [address] 56498- 7299 16 Jan, 2018 care in first trimester Z34.91 [facility] [id number] [place] [address] 11084- 0308 January, [facility] [id number] [place] [address] 89521 -7332 January, Left ankle pain, unspecified chronicity M25.572 [facility] [address] [address] [id number] [place] [address] 16348- 7685 January, [facility] [address] [place] [address]- 6506 January, Dysthymic disorder F34.1 and DANIELLA (generalized anxiety disorder) F41.1 [facility] [id number] [place] [address] 95889 -2883 January, Impacted cerumen of both ears H61.23 [facility] [address] [id number] [place] [address] 29742- 5959 Dec, [facility] [address] 87301- 2552 Dec, in multigravida Z34.80 [place] [address] 70472- 0277 Dec, DANIELLA (generalized anxiety disorder) F41.1 and Dysthymic disorder F34.1 [place] [address] 11069- 1965 Dec, [facility] [id number] [place] [address] 65153- 4142 Nov, [place] [address] 89752- 8627 Nov, [place] [address] [id number] [place] [address] 01183- 9032 Nov, Painful urination R30.9 ; Vaginal yeast infection B37.3 and Early stage of Z34.90 [facility] [id number] [place] [address] 24903- 0440 Nov, in multigravida Z34.80 [place] [address] [address] [id number] [place] [address] 62552- 8590 Nov, Dysfunction of right eustachian tube H69.81 and Bilateral impacted cerumen H61.23 [facility] [id number] [place] [address] 45587- 2162 Nov, [facility] [address] [place] [address]- 3167 Nov, [facility] [id number] [place] [address] 31425- 2907 Nov, [facility] [id number] [place] [address] 12350 -2788 Nov, Missed period N92.6 [facility] [address] 37575- 5534 Sep, DANIELLA (generalized anxiety disorder) F41.1 and Dysthymic disorder F34.1 [facility] [id number] [place] [address] 25801 -8897 Aug, Acute nasopharyngitis J00 [place] [address] [address] [id number] [place] [address] 59857- 6738 Jul, Irregular periods/menstrual cycles N92.6 [place] [address] 19678- 4318 Jul, Bilateral impacted cerumen H61.23 [place] [address] [address] [id number] [place] [address] 40378- 8429 Jul, DANIELLA (generalized anxiety disorder) F41.1 and Dysthymic disorder F34.1 [place] [address] [id number] [place] [address] 96098- 5246 Jun, [place] [address] 96297- 7860 Jun, Dysthymic disorder F34.1 [place] [address] [address] [id number] [place] [address] 08883- 0501 Jun, Anemia, O90.81 ; Lower abdominal pain R10.30 ; Allergic contact dermatitis due to adhesives L23.1 and Other headache syndrome G44.89 [place] [address] [address] [id number] [place] [address] 47172- 2926 Jun, 39 weeks gestation of Z3A.39 [place] [address] [id number] [place] [address] 77345- 2518 27 May, 2017 care in third trimester Z34.93 [facility] [place] [address] 91528 -6815 24 May, 2017 Acute seasonal allergic rhinitis, unspecified trigger J30.2 [place] [address] 29426- 0357 20 May, 2017 Normal in multigravida Z34.80 [facility] [address] 38377 -4242 17 May, 2017 Urinary frequency R35.0 and Pain of round ligament N94.9 [place] [address] 42863- 3514 13 May, 2017 35 weeks gestation of Z3A.35 [place] [address] 71801- 7148 Apr, High risk sexual behavior Z72.51 and 33 weeks gestation of Z3A.33 [place] [address] 32883- 7821 Apr, care in third trimester Z34.93 [facility] [place] [address] [address] [id number] [place] [address] 57037 -8505 Apr, Bilateral impacted cerumen H61.23 [place] [address] 14422- 6389 Apr, 30 weeks gestation of Z3A.30 and Encounter for immunization Z23 [place] [address] 61187- 3691 Mar, 28 weeks gestation of Z3A.28 [place] [address] 72946- 6698 Mar, [place] [address] 76473- 4959 Mar, [place] [address] [place] [id number] [place] [address] 36067- 6501 Mar, [place] [address] [address] [id number] [place] [address] 56099- 8393 Mar, 26 weeks gestation of Z3A.26 [facility] [address] [place] [id number] [place] [address] 66350 -1379 Mar, Acute back pain M54.9 [place] [address] [place] [id number] [place] [address] 37043- 4733 28 Feb, 2017 24 weeks gestation of Z3A.24 [facility] [address] [place] [address] 76592 -6500 27 Feb, 2017 Lower abdominal pain R10.30 [facility] [address] [place] [id number] [place] [address] 30401 -4440 Feb, Gastroenteritis and colitis, viral A08.4 [place] [id number] [place] [address] 58571- 4062 14 Feb, 2017 care in second trimester Z34.92 [place] [id number] [place] [address] 68722- 6480 07 Feb, 2017 [facility] [address] [place] [id number] [place] [address] 00186 -1368 04 Feb, 2017 Abscess L02.91 [facility] [place] [id number] [place] [address] 09885 -8301 Feb, Vaginal flavia B37.3 [place] [id number] [place] [address] 92635- 7873 January, 20 weeks gestation of Z3A.20 [place] [id number] [place] [address] 89098- 7380 January, [facility] [address] [place] [id number] [place] [address] 03781 -8380 January, Seasonal allergic rhinitis, unspecified allergic rhinitis trigger J30.2 [facility] [address] [place] [id number] [place] [address] 88018 -8519 January, Dermatitis L30.9 and Bug bites, initial encounter W57.XXXA [place] [address] [place] [id number] [place] [address] 15385- 0300 January, Sore throat J02.9 and Seasonal allergic rhinitis, unspecified allergic rhinitis trigger J30.2 [place] [address] [place] [id number] [place] [address] 74404- 7683 January, 16 weeks gestation of Z3A.[address] 97622- 3331 Dec, care in first trimester Z34.91 [place] [address] 67152- 5209 Nov, care in first trimester Z34.91 and Normal in multigravida Z34.80 [facility] [place] [address] [place] [id number] [place] [address] 77438 -3090 Oct, Nausea and vomiting during O21.9 [place] [address] [place] [id number] [place] [address] 76666- 6287 Oct, [place] [address] [place] [id number] [place] [address] 03505- 4151 Oct, [place] [address] [place] [id number] [place] [address] 54308- 4755 Oct, Encounter for test, result unknown Z32.00 [place] [id number] [place] [address] 55788- 9846 Sep, Irregular periods/menstrual cycles N92.6 ; Sore throat J02.9 ; Nausea R11.0 and Right ear impacted cerumen H61.21 [facility] [place] [id number] [place] [address] 98123 -8794 Jul, Vaginal discharge N89.8 ; Other specified bacterial agents as the cause of diseases classified elsewhere B96.89 and Acute vaginitis N76.0 [place] [address] [place] [id number] [place] [address] 82324- 5181 10 Jun, 2016 Depression, unspecified depression type F32.9 [place] [address] [place] [id number] [place] [address] 99588- 1037 23 May, 2016 Vaginal candidiasis B37.3 [place] [address] 98765- 8446 20 May, 2016 Acute pharyngitis, unspecified etiology J02.9 [place] [address] 38443 6316 19 May, 2016 Depression, unspecified depression type F32.9 [place] [address] 77506- 3232 12 May, 2016 Depression, unspecified depression type F32.9 [place] [address] [place] [id number] [place] [address] 65181- 9460 12 May, 2016 Dysthymic disorder F34.1 [facility] [address] 19531 -5273 Apr, Acute suppurative otitis media of right ear without spontaneous rupture of tympanic membrane, recurrence not specified H66.001 [facility] [address] [place] [id number] [place] [address] 17788 -8843 Mar, Herpes zoster without complication B02.9 [facility] [address] [place] [id number] [place] [address] 75064 -7319 Dec, Allergic rhinitis J30.9 [facility] [address] 18681 -0709 03 Dec, 2015 Lumbago M54.5 [facility] [address] [place] [id number] [place] [address] 76636 -4244 18 Oct, 2015 Dysuria R30.0 and Urinary tract infection N39.0 [facility] Formerly named [facility] [address] [place] [address] 30093 -8832 Sep, Acute nasopharyngitis J00 and Strep pharyngitis J02.0 [facility] [address] [place] [id number] [place] [address] 43771- 4584 Jul, Upper respiratory tract infection, unspecified type J06.9 [place] [address] 99061- 4139 Jun, Irritable bowel syndrome without diarrhea K58.9 [place] [address] [place] [id number] [place] [address] 34019- 9791 Jun, [place] [address] 22475- 4484 May, [place] [address] [place] [id number] [place] [address] 87871- 3218 May, [place] [address] 29376- 7717 May, Otitis externa of left ear 380.10 [place] [address] 36724- 9892 May, Pain in joint, ankle and foot 719.47 [place] [address] [place] [id number] [place] [address] 93338- 7567 Apr, Pain in joint, ankle and foot 719.47 [place] [address] [place] [id number] [place] [address] 54889- 9347 Mar, Dysuria 788.1 and Incontinence in female 625.6 [place] [address] [place] [id number] [place] [address] 38598- 1227 Feb, Plantar fasciitis of right foot 728.71 ; Ankle weakness 719.67 and Ankle pain, chronic 719.47 [place] [address] [place] [id number] [place] [address] 93810- 2026 Feb, [place] [address] [place] [id number] [place] [address]- 6908 Feb, Belching 787.3 and Chest wall pain 786.52 [facility] [address] [id number] [place] [address]- 9006 14 Dec, 2014 [facility] [address] [id number] [place] [address]- 0419 Dec, [facility] [address] [id number] [place] [address]- 3702 Nov, [facility] [address] [id number] [place] [address]- 6098 Nov, [facility] [address] [id number] [place] [address]- 1278 Sep, [facility] [address] [facility] [id number] [place] [address]- 6688 Sep, [facility] [address] [facility] [id number], [place] [address]- 1728 Sep, [facility] [address] [id number] [place] [address]- 4074 Sep, [facility] [address] [id number] [address]- 3670 Aug, [facility] [address] [facility] [id number], [place] [address]- 2626 Aug, [facility] [address] [id number], [place] [address]- 5415 Aug, [facility] [place] [facility] [address] [id number] [place] [address]- 9571 Aug, [facility] [address] [facility] [id number] 5806 Aug, [facility] [place] [facility] [address] [facility] [id number] 3294 Aug, [facility] [address] [id number], [place] [address]- 8111 Aug, [facility] [place] [facility] [address] [id number] [place] [address]- 1828 Aug, [facility] [place] [facility] [address] [id number], [place] [address]- 9213 Aug, [facility] [place] [facility] [address] [facility] [id number] [place] [address]- 0802 Aug, [facility] [place] [facility] [address] [id number] [place] [address]- 4060 Aug, [facility] [place] [facility] [address] [facility] [id number] [place] [address]- 1799 Aug, [facility] [place] [facility] [address] [facility] [id number] [place] [address]- 7816 Aug, [facility] [place] [facility] [address] [place] [id number], [place] [address]- 9029 Aug, [facility] [place] [facility] [address] [facility] [id number], [place] [address]- 9966 Jul, [facility] [place] [facility] [address] [facility] [id number] [place] [address]- 5285 Jul, [facility] [place] [facility] [address] [place] [id number], [place] [address]- 6096 Jul, [facility] [place] [facility] [address] [facility] [id number], [place] [address]- 4039 Jul, [facility] [place] [facility] [address] [facility] [id number], [place] [address]- 3661 Jul, [facility] [place] [facility] [address] [id number], [place] [address]- 7399 Jul, [facility] [place] [facility] [address] [facility] [id number], [place] [address]- 7562 Jul, [facility] [place] [facility] [address] [place] [id number], [place] [address]- 0259 Jun, [facility] [place] [facility] [address] [id number] [place] [address]- 2653 Jun, [facility] [place] [facility] [address] [id number] [place] 9279 Jun, [facility] [place] [facility] [address] [id number] [place] [address]- 0942 Jun, [facility] [place] [facility] [address] [id number] [place] 3266 Jun, [facility] [place] [facility] [address] [id number] [place] [address]- 8619 Jun, [facility] [place] [facility] [address] [id number] [place] [address]- 2666 Jun, [facility] [place] [facility] [address] [id number] [place] [address]- 1673 Jun, [facility] [place] [facility] [address] [id number] [place] [address]- 3018 Jun, [facility] [place] [facility] [address] [id number] [place] [address]- 4391 Jun, [facility] [place] [facility] [address] [id number] [place] [address]- 7053 Jun, [facility] [place] [facility] [address] [id number] [place] [address]- 4671 Jun, [facility] [place] [facility] [address] [id number] [place] [address]- 8919 Jun, [facility] [place] [facility] [address] [id number] [place] 4516 Jun, [facility] [place] [facility] [address] [id number] [place] [address]- 1575 May, [facility] [place] [facility] [address] [id number] [place] [address]604 May, [facility] [place] [facility] [address] [id number] [place] [address]- 1944 May, [facility] [place] [facility] [address] [id number] [place] [address]- 7219 May, [facility] [place] [facility] [address] [id number] [place] [address]- 1549 May, [facility] [place] [facility] [address] [id number] [place] [address]- 9490 Apr, [facility] [place] [facility] [address] [id number] [place] [address]- 6541 Apr, [facility] [place] [facility] [address] [id number] [place] [address]- 0690 Apr, [facility] [place] [facility] [address] [id number] [place] [address]- 8180 Apr, [facility] [place] [facility] [address] [id number] [place] [address]- 3240 Mar, [facility] [place] [facility] [address] [id number] [place] [address]- 6311 Mar, [facility] [place] [facility] [address] [id number] [place] [address]- 2856 Mar, [facility] [place] [facility] [address] [id number] [place] [address]- 5258 Mar, [facility] [place] [facility] [address] [id number] [place] [address]- 9447 Mar, [facility] [place] [facility] [address] [id number] [place] [address]- 5605 Mar, [facility] [place] [facility] [address] [id number] [place] [address]- 5799 Mar, [facility] [place] [facility] [address] [id number] [place] [address]- 3902 Mar, [facility] [place] [facility] [address] [id number] [place] [address]- 0894 Feb, [facility] [place] [facility] [address] [id number] [place] [address]- 0883 Feb, [facility] [place] [facility] [address] [id number] [place] [address]- 8159 Feb, [facility] [place] [facility] [address] [id number] [place] [address] Feb, [facility] [place] [facility] [address] [id number] [place] [address] Feb, [facility] [place] [facility] [address] [id number] [place] [address] Feb, [facility] [place] [facility] [address] [id number] [place] [address] Feb, [facility] [place] [facility] [address] [id number] [place] [address] Feb, [facility] [place] [facility] [address] [id number] [place] [address] January, [facility] [place] [facility] [address] [id number] [place] [address] January, [facility] [place] [facility] [address] [id number] [place] [address] January, [facility] [place] [facility] [address] [id number] [place] [address] January, [facility] [place] [facility] [address] [id number] [place] [address] January, [facility] [place] [facility] [address] [id number] [place] [address] January, [facility] [place] [facility] [address] [id number] [place] [address] Dec, [facility] [place] [facility] [address] [id number] [place] [address] Dec, [facility] [place] [facility] [address] [id number] [place] [address] Dec, [facility] [place] [facility] [address] [id number] [place] [address] Dec, [facility] [place] [facility] [address] [id number] [place] [address] Dec, [facility] [place] [facility] [address] [id number] [place] [address] Dec, [facility] [place] [facility] [address] [id number] [place] [address] Dec, [facility] [place] [facility] [address] [id number] [place] [address] Dec, [facility] [place] [facility] [address] [id number] [place] [address] Oct, [facility] [place] [facility] [address] [id number] [place] [address] Oct, [facility] [place] [facility] [address] [id number] [place] [address] Aug, [facility] [place] [facility] [address] [id number] [place] [address] Aug, [facility] [place] [facility] [address] [id number] [place] [address] Jul, [facility] [place] [facility] [address] [id number] [place] [address] Jul, [facility] [place] [facility] [address] [id number] [place] [address] Mar, [facility] [place] [facility] [address] [id number] [place] [address] Mar, [facility] [place] [facility] [address] [id number] [place] [address] Mar, [facility] [place] [facility] [address] [id number] [place] [address] Feb, [facility] [place] [facility] [address] [id number] [place] [address] Feb, [facility] [address] [id number] [place] [address] Feb, [facility] [address] [id number] [place] [address] January, [facility] [address] [id number] [place] [address] January, [facility] [address] [id number] [place] [address] January, [facility] [address] [id number] [place] [address] January, [facility] [address] [id number] [place] [address] January, [facility] [address] [id number] [place] [address] January, [facility] [address] [id number] [place] [address] January, [facility] [address] [id number] [place] [address] Dec, [facility] [address] [id number] [place] [address] Dec, [facility] [address] [address] [id number] [place] [address] Dec, [facility] [place] [facility] [address] [id number] [place] [address] Dec, [facility] [place] [facility] [address] [id number] [place] [address] Nov, [facility] [place] [facility] [address] [id number] [place] [address] Nov, [facility] [place] [facility] [address] [id number] [place] [address] Nov, [facility] [place] [facility] [address] [id number] [place] [address] 27 Oct, 2012 [facility] [address] [id number] [place] [address] 25 Oct, 2012 [facility] [place] [facility] [address] [id number] [place] [address] 20 Oct, 2012 [facility] [address] [id number] [place] [address] 19 Oct, 2012 [facility] [address] [id number] [place] [address] Oct, [facility] [address] [id number] [place] [address] 05 Oct, 2012 [facility] [address] [id number] [place] [address] Sep, [facility] [address] [id number] [place] [address] Sep, [facility] [address] [id number] [place] [address] Sep, [facility] [address] [id number] [place] [address] Sep, [facility] [address] [id number] [place] [address] Sep, [facility] [address] [id number] [place] [address] Aug, [facility] [place] [facility] [address] [id number] [place] [address] Aug, [facility] [place] [facility] [address] [id number] [place] [address] Aug, [facility] [place] [facility] [address] [id number] [place] [address] Aug, [facility] [place] [facility] [address] [id number] [place] [address] Aug, [facility] [place] [facility] [address] [id number] [place] [address] Aug, [facility] [place] [facility] [address] [id number] [place] [address] Jul, [facility] [place] [facility] [address] [id number] [place] [address] Jul, [facility] [place] [facility] [address] [id number] [place] [address] Jul, [facility] [place] [facility] [address] [id number] [place] [address] Jul, [facility] [place] [facility] [address] [id number] [place] [address]68 Jul, [facility] [place] [facility] [address] [id number] [place] [address] Jul, [facility] [place] [facility] [address] [id number] [place] [address] Jul, [facility] [place] [facility] [address] [id number] [place] [address] 15 Jul, 2012 [facility] [place] [facility] [address] [id number] [place] [address] 14 Jul, 2012 [facility] [place] [facility] [address] [id number] [address] Jul, [facility] [place] [facility] [address] [id number] [place] [address] Jul, [facility] [place] [facility] [address] [id number] [place] [address] Jul, [facility] [place] [facility] [address] [id number] [place] [address] Jul, [facility] [place] [facility] [address] [id number] [place] [address] Jul, [facility] [place] [facility] [address] [id number] [place] [address] 08 Jul, 2012 [facility] [place] [facility] [address] [id number] [place] [address] Jul, [facility] [place] [facility] [address] [id number] [place] [address] Jul, [facility] [address] [id number] [place] [address] Jul, [facility] [place] [facility] [address] [id number] [place] [address] Jul, [facility] [place] [facility] [address] [id number] [place] [address] Jun, [facility] [place] [facility] [address] [id number] [place] [address] Jun, [facility] [place] [facility] [address] [id number] [place] [address] May, [facility] [place] [facility] [address] [id number] [place] [address] Apr, [facility] [place] [facility] [address] [id number] [place] [address] Mar, [facility] [address] [facility] [id number] [place] [address] 25[address] Feb, [facility] [place] [facility] [address] [id number] [place] [address] Feb, [facility] [place] [facility] [address] [id number] [place] [address] Feb, [facility] [place] [facility] [address] [id number] [place] [address] January, [facility] [place] [facility] [address] [id number] [place] [address] January, [facility] [place] [facility] [address] [id number] [place] [address] Dec, [facility] [place] [facility] [address] [id number] [place] [address] Dec, [facility] [place] [facility] [address] [id number] [place] [address] 08 Nov, 2011 [facility] [place] [facility] [address] [id number] [place] [address]- [address] Aug, [facility] [place] [facility] [address] [id number] [place] [address] Jul, [facility] [place] [facility] [address] [id number] [place] [address] Jul, [facility] [place] [facility] [address] [id number] [place] [address]- 78[address] 16 Jul, 2011 [facility] [place] [facility] [address] [id number] [place] [address]- [address] 12 Jun, 2011 [facility] [place] [facility] [address] [id number] [place] [address] 12 Jun, 2011 [facility] [place] [facility] [address] [id number] [place] [address] 14 May, 2011 [facility] [place] [facility] [address] [id number] [place] [address] 10 Apr, 2011 [facility] [place] [facility] [address] [id number] [place] [address] January, [facility] [place] [facility] [address] [id number] [place] [address] 13 Dec, 2010 [facility] [place] [facility] [address] [id number] [place] [address] 16 Nov, 2010 [facility] [place] [facility] [address] [id number] [place] [address] 58[address] 10 Oct, 2010 [facility] [place] [facility] [address] [id number] [place] [address] 14 Jun, 2010 [facility] [place] [facility] [address] [id number], [place] [address] 14 Jun, 2010 [facility] [address] [facility] [id number], [place] [address] Oct, [facility] [address] [id number], [place] [address] Aug, [facility] [address] [id number], [place] [address] Jul, [facility] [address] [id number] [address] [address] Dec, IMMUNIZATIONS No Known Immunizations SOCIAL HISTORY Never Assessed REASON FOR VISIT OB ER f/u-FREEDOM woodruff PLAN OF CARE Activity Details Follow Up 3 Weeks Reason: VITAL SIGNS Height 61 in 2018-03-11 Weight 184.6 lbs 2018-03-11 Temperature 98.0 degrees Fahrenheit 2018-03-11 Heart Rate 72 bpm 2018-03-11 Respiratory Rate 18 2018-03-11 BMI 34.88 kg/m2 2018-03-11 Blood pressure systolic 108 mmHg 2018-03-11 Blood pressure diastolic 62 mmHg 2018-03-11 MEDICATIONS Medication Instructions Dosage Frequency Start Date End Date Duration Status Zoloft 50 mg Orally Once a day 1 tablet 24h Sep, 30 days Not- Taking Flonase 50 MCG/ACT Nasally Once a day 1 spray in each nostril 24h Feb, 30 day(s) Active Cetirizine HCl 10 MG Orally Once a day 1 tablet 24h Not-Taking Unisom Not-Taking Benadryl Not-Taking Claritin 10 MG Orally Once a day 1 tablet 24h Feb, Mar, 30 day(s) Active RESULTS Name Result Date Reference Range UA OB DIP (IN HOUSE) 2018-03-11 Glucose neg Protein trace PROCEDURES Procedure Date Ordered Result Body Site URINE-NO MICRO March 11, 2018 INSTRUCTIONS MEDICATIONS ADMINISTERED No Known Medications MEDICAL [...]
--- OUTSIDE RECORDS SUMMARY | 2018-12-13 17:47 | XMS REPORT ---
Author Author ZAYRA GOMEZ [facility] Address [address] [place] [address] Care Team Providers Care Silk Conditioner Name Role Phone ZAYRA GOMEZ Unavailable PROBLEMS Type Condition ICD9-CM Code HGO66-[place] Code Onset Dates Condition Status SNOMED Code Problem Depression, unspecified depression type F32.9 Active 82987579 Problem Seasonal allergic rhinitis, unspecified allergic rhinitis trigger J30.2 Active 890971617 Problem Irregular periods/menstrual cycles N92.6 Active 46951228 Problem Seasonal allergies J30.2 Active 552242296 Problem Missed period N92.6 Active 03677144 Problem Other headache syndrome G44.89 Active 499958755 Problem Anemia, O90.81 Active 622019857 Problem DANIELLA (generalized anxiety disorder) F41.1 Active 77692992 Problem Dysthymic disorder F34.1 Active 77307867 ALLERGIES No Information ENCOUNTERS Encounter Location Date Diagnosis [facility] [address] [address]167 Mar, Pain of left calf M79.662 and Muscle spasm of left calf M62.831 [place] [id number] [place] [address] 40244- 4152 Mar, care in second trimester Z34.92 [facility] [id number] [place] [address] 25220- 9402 Mar, Bilateral impacted cerumen H61.23 [place] [address] 28177- 9914 Feb, [facility] [id number] [place] [address] 33687 -1564 Feb, [facility] [address] 71004- 8893 20 Feb, 2018 Normal in multigravida Z34.80 [facility] [id number] [place] [address] 22821- 8741 13 Feb, 2018 Painful urination R30.9 and Encounter for supervision of normal in second trimester Z34.92 [facility] [id number] [place] [address] 32015 -3073 07 Feb, 2018 Seasonal allergies J30.2 [facility] [address] 60398- 9175 Feb, [place] [address] 41264- 2714 Feb, [facility] [address] 92003 -4828 January, Seasonal allergic rhinitis, unspecified trigger J30.2 [facility] [address] 22565 -1374 January, [facility] [address] 40060 -9500 January, Viral gastroenteritis A08.4 [place] [address] 14896- 8336 January, [facility] [id number] [place] [address] 03462- 3186 January, care in first trimester Z34.91 [facility] [id number] [place] [address] 00207- 6480 January, [facility] [id number] [place] [address] 88567 -0476 January, Left ankle pain, unspecified chronicity M25.572 [facility] [id number] [place] [address] 22589- 1885 January, [facility] [id number] [place] [address] 81322- 8894 January, Dysthymic disorder F34.1 and DANIELLA (generalized anxiety disorder) F41.1 [facility] [id number] [place] [address] 44675 -3161 January, Impacted cerumen of both ears H61.23 [facility] [id number] [place] [address] 51464- 2479 Dec, [facility] [address] 54057- 3572 Dec, in multigravida Z34.80 [place] [address] 62294- 6378 Dec, DANIELLA (generalized anxiety disorder) F41.1 and Dysthymic disorder F34.1 [facility] [id number] [place] [address] 62829- 8115 Dec, [facility] [address] 86904- 7703 Nov, [place] [id number] [place] [address] 92283- 8839 Nov, [place] [address] 49589- 5460 Nov, Painful urination R30.9 ; Vaginal yeast infection B37.3 and Early stage of Z34.90 [place] [id number] [place] [address] 11388- 4871 Nov, in multigravida Z34.80 [place] [id number] [place] [address] 87476- 0572 Nov, Dysfunction of right eustachian tube H69.81 and Bilateral impacted cerumen H61.23 [facility] [id number] [place] [address] 96058- 5143 Nov, [facility] [address] 98234- 8294 Nov, [facility] [id number] [place] [address] 45989- 9917 Nov, [facility] [id number] [place] [address] 41969 -4925 Nov, Missed period N92.6 [place] [id number] [place] [address] 99888- 3364 Sep, DANIELLA (generalized anxiety disorder) F41.1 and Dysthymic disorder F34.1 [facility] [id number] [place] [address] 98479 -1219 Aug, Acute nasopharyngitis J00 [place] [address] 52688- 7425 Jul, Irregular periods/menstrual cycles N92.6 [place] [address] 85355- 6407 Jul, Bilateral impacted cerumen H61.23 [place] [id number] [place] [address] 58722- 1836 Jul, DANIELLA (generalized anxiety disorder) F41.1 and Dysthymic disorder F34.1 [place] [id number] [place] [address] 48139- 7601 Jun, [place] [id number] [place] [address] 54648- 0027 Jun, Dysthymic disorder F34.1 [place] [id number] [place] [address] 41491- 7636 Jun, Anemia, O90.81 ; Lower abdominal pain R10.30 ; Allergic contact dermatitis due to adhesives L23.1 and Other headache syndrome G44.89 [place] [id number] [place] [address] 47921- 4191 Jun, 39 weeks gestation of Z3A.39 [place] [address] 60859- 4458 27 May, 2017 care in third trimester Z34.93 [facility] [id number] [place] [address] 36655 -7374 24 May, 2017 Acute seasonal allergic rhinitis, unspecified trigger J30.2 [place] [id number] [place] [address] 76832- 0624 20 May, 2017 Normal in multigravida Z34.80 [facility] [address] 69562 -4258 17 May, 2017 Urinary frequency R35.0 and Pain of round ligament N94.9 [place] [address] 21135- 0242 13 May, 2017 35 weeks gestation of Z3A.35 [place] [address] 90162- 3299 Apr, High risk sexual behavior Z72.51 and 33 weeks gestation of Z3A.33 [place] [address] 89475- 8152 Apr, care in third trimester Z34.93 [facility] [id number] [place] [address] 38932 -0656 Apr, Bilateral impacted cerumen H61.23 [place] [id number] [place] [address] 18035- 2108 Apr, 30 weeks gestation of Z3A.30 and Encounter for immunization Z23 [place] [id number] [place] [address] 90319- 0028 Mar, 28 weeks gestation of Z3A.28 [place] [address] 64569- 5587 Mar, [place] [id number] [place] [address] 19735- 9057 Mar, [place] [address] 84301- 2101 Mar, [place] [id number] [place] [address] 50826- 1715 12 Mar, 2017 26 weeks gestation of Z3A.26 [facility] [id number] [place] [address] 77258 -5370 03 Mar, 2017 Acute back pain M54.[address] 71802- 2627 28 Feb, 2017 24 weeks gestation of Z3A.24 [facility] [address] [place] [id number] [place] [address] 17882 -2466 27 Feb, 2017 Lower abdominal pain R10.30 [facility] [address] [place] [id number] [place] [address] 74137 -6898 25 Feb, 2017 Gastroenteritis and colitis, viral A08.[address] 70031- 2595 14 Feb, 2017 care in second trimester Z34.92 [place] [id number] [place] [address] 80733- 1449 07 Feb, 2017 [facility] [address] [place] [id number] [place] [address] 38023 -2833 04 Feb, 2017 Abscess L02.91 [facility] [place] [id number] [place] [address] 33680 -3761 Feb, Vaginal flavia B37.3 [place] [id number] [place] [address] 20973- 8289 January, 20 weeks gestation of Z3A.20 [place] [id number] [place] [address] 32533- 2876 January, [facility] [address] [place] [id number] [place] [address] 74226 -4697 January, Seasonal allergic rhinitis, unspecified allergic rhinitis trigger J30.2 [facility] [address] [place], [place] [address] [place] [address]3727 January, Dermatitis L30.9 and Bug bites, initial encounter W57.XXXA [address] 58017- 9408 January, Sore throat J02.9 and Seasonal allergic rhinitis, unspecified allergic rhinitis trigger J30.[address] 57855- 3301 January, 16 weeks gestation of Z3A.16 [place] [address] 03675- 9388 Dec, care in first trimester Z34.[address] 73156- 0491 Nov, care in first trimester Z34.91 and Normal in multigravida Z34.80 [facility] [address] 05039 -3231 Oct, Nausea and vomiting during O21.[address] 09163- 4089 Oct, [place] [address] 48258- 8560 Oct, [address] 41978- 3131 Oct, Encounter for test, result unknown Z32.[address] 19870- 3229 Sep, Irregular periods/menstrual cycles N92.6 ; Sore throat J02.9 ; Nausea R11.0 and Right ear impacted cerumen H61.21 [facility] [address] [place] [id number] [place] [address] 77174 -1746 Jul, Vaginal discharge N89.8 ; Other specified bacterial agents as the cause of diseases classified elsewhere B96.89 and Acute vaginitis N76.0 [place] [id number] [place] [address] 77664- 1505 10 Jun, 2016 Depression, unspecified depression type F32.9 [place] [id number] [place] [address] 02299- 5422 23 May, 2016 Vaginal candidiasis B37.3 [place] [address] 84353- 1036 20 May, 2016 Acute pharyngitis, unspecified etiology J02.9 [place] [id number] [place] [address] 44705- 9707 19 May, 2016 Depression, unspecified depression type F32.9 [place] [id number] [place] [address] 87689- 1883 12 May, 2016 Depression, unspecified depression type F32.9 [place] [id number] [place] [address] 81674- 2140 12 May, 2016 Dysthymic disorder F34.1 [facility] [place] [id number] [place] [address] 30347 -4445 Apr, Acute suppurative otitis media of right ear without spontaneous rupture of tympanic membrane, recurrence not specified H66.001 [facility] [id number] [place] [address] 11290 -6258 Mar, Herpes zoster without complication B02.9 [facility] [id number] [place] [address] 43221 -0294 Dec, Allergic rhinitis J30.9 [facility] [place] [id number] [place] [address] 62595 -2114 Dec, Lumbago M54.5 [facility] [id number] [place] [address] 71522 -4181 18 Oct, 2015 Dysuria R30.0 and Urinary tract infection N39.0 [facility] [id number] [place] [address] 54371 -2212 Sep, Acute nasopharyngitis J00 and Strep pharyngitis J02.0 [place] [id number] [place] [address] 09388- 9217 Jul, Upper respiratory tract infection, unspecified type J06.9 [place] [id number] [place] [address] 15437- 8999 Jun, Irritable bowel syndrome without diarrhea K58.9 [place] [id number] [place] [address] 24099- 4537 Jun, [place] [address] 53607- 0473 May, [place] [id number] [place] [address] 38620- 0899 May, [place] [address] 41658- 5032 May, Otitis externa of left ear 380.10 [place] [id number] [place] [address] 63020- 3578 May, Pain in joint, ankle and foot 719.47 [place] [id number] [place] [address] 38451- 9300 Apr, Pain in joint, ankle and foot 719.47 [place] [id number] [place] [address] 39377- 3237 Mar, Dysuria 788.1 and Incontinence in female 625.6 [place] [id number] [place] [address] 11234- 3000 Feb, Plantar fasciitis of right foot 728.71 ; Ankle weakness 719.67 and Ankle pain, chronic 719.47 [place] [id number] [place] [address] 07361- 0264 Feb, [place] [id number] [place] [address] 58306- 5864 Feb, Belching 787.3 and Chest wall pain 786.52 [facility] [address] [id number] [place] [address]- 2281 14 Dec, 2014 [facility] [address] [id number] [place] [address]- 6886 Dec, [facility] [address] [id number] [place] [address]- 8396 16 Nov, 2014 [facility] [address] [id number] [place] [address]- 9331 Nov, [facility] [id number] [place] [address], [place] [address]- 8570 Sep, [facility] [address] [facility] [id number] [place] [address]- 6055 Sep, [facility] [place] [address] [place] [id number] [place] [address], [place] [address]- 9586 Sep, [facility] [place] [address] [facility] [id number] [place] [address]- 2480 Sep, [facility] [address] [id number] [place] [address]- 1483 Aug, [facility] [place] [address] [facility] [id number] [place] [address]- 9818 Aug, [facility] [place] [address] [id number] [place] [address]- 9793 Aug, [facility] [address] [facility] [id number] [address]- 8470 Aug, [facility] [address] [facility] [id number] [place]- 3748 Aug, [facility] [address] [facility] [id number] [place] 1536 Aug, [facility] [address] [facility] [id number] 7282 Aug, [facility] [place] [facility] [address] [id number] [place] [address]- 7798 Aug, [facility] [place] [facility] [address] [id number] [place] 7551 Aug, [facility] [place] [facility] [address] [id number] [place] [address]- 4072 Aug, [facility] [place] [facility] [address] [id number] [place] [address]- 2864 Aug, [facility] [place] [facility] [address] [id number] [place] [address]- 6902 Aug, [facility] [place] [facility] [address] [id number] [place] [address]- 7602 Aug, [facility] [place] [facility] [address] [id number] [place] [address]- 8329 Aug, [facility] [place] [facility] [address] [id number] [place] [address]- 7619 Jul, [facility] [place] [facility] [address] [id number] [place] [address]- 1591 Jul, [facility] [place] [facility] [address] [id number] [place] [address]- 4669 Jul, [facility] [place] [facility] [address] [id number] [place] [address]- 0262 Jul, [facility] [place] [facility] [address] [id number] [address]- 2179 Jul, [facility] [place] [facility] [address] [id number] [place] [address]- 2428 Jul, [facility] [place] [facility] [address] [id number] [place] [address]- 5740 Jul, [facility] [place] [facility] [address] [id number] [place] 0785 Jun, [facility] [place] [facility] [address] [id number] [place] [address]- 4174 Jun, [facility] [place] [facility] [address] [id number] [place] [address]- 9726 Jun, [facility] [place] [facility] [address] [id number] [place] 5030 Jun, [facility] [place] [facility] [address] [id number] [place] [address]- 9939 Jun, [facility] [place] [facility] [address] [id number] [place] [address]- 9438 Jun, [facility] [place] [facility] [address] [id number] [place] [address]- 2960 Jun, [facility] [place] [facility] [address] [id number] [place] [address]- 6551 Jun, [facility] [place] [facility] [address] [id number] [place] [address]- 8024 Jun, [facility] [place] [facility] [address] [id number] [place] [address]- 8646 Jun, [facility] [place] [facility] [address] [id number] [place] [address]- 4304 Jun, [facility] [place] [facility] [address] [id number] [place] [address]- 2514 Jun, [facility] [place] [facility] [address] [id number] [address]- 4336 Jun, [facility] [place] [facility] [address] [id number] [address]- 0278 Jun, [facility] [place] [facility] [address] [id number] [place] [address]- 0004 May, [facility] [place] [facility] [address] [id number] [place] [address]- 5879 May, [facility] [place] [facility] [address] [id number] [place] [address]- 3348 May, [facility] [place] [facility] [address] [id number] [place] [address]- 4236 May, [facility] [place] [facility] [address] [id number] [place] [address]- 7079 May, [facility] [place] [facility] [address] [id number] [place] [address]- 6533 Apr, [facility] [place] [facility] [address] [id number] [place] [address]- 5410 Apr, [facility] [place] [facility] [address] [id number] [place] [address]- 9531 Apr, [facility] [place] [facility] [address] [id number] [place] [address]- 3675 Apr, [facility] [place] [facility] [address] [id number] [place] [address]- 6324 Mar, [facility] [place] [facility] [address] [id number] [place] [address]- 1457 Mar, [facility] [place] [facility] [address] [id number] [place] [address]- 2446 Mar, [facility] [place] [facility] [address] [id number] [place] [address]- 2749 Mar, [facility] [place] [facility] [address] [id number] [place] [address]- 8134 Mar, [facility] [place] [facility] [address] [id number] [place] [address]- 3968 Mar, [facility] [place] [facility] [address] [id number] [place] [address]- 6411 Mar, [facility] [place] [facility] [address] [id number] [place] [address]- 0472 Mar, [facility] [place] [facility] [address] [id number] [place] [address]- 8336 Feb, [facility] [place] [facility] [address] [id number] [place] 4594 Feb, [facility] [place] [facility] [address] [id number] [place] [address]- 6830 Feb, [facility] [place] [facility] [address] [id number] [place] [address]- 9125 Feb, [facility] [place] [facility] [address] [id number] [place] [address]- 3833 Feb, [facility] [place] [facility] [address] [id number] [place] [address]- 7546 Feb, [facility] [place] [facility] [address] [id number] [place] [address] Feb, [facility] [place] [facility] [address] [id number] [place] [address] Feb, [facility] [place] [facility] [address] [id number] [place] [address] January, [facility] [place] [facility] [address] [id number] [place] [address] January, [facility] [place] [facility] [address] [id number] [place] [address] January, [facility] [place] [facility] [address] [id number] [place] [address] January, [facility] [place] [facility] [address] [id number] [place] [address] January, [facility] [place] [facility] [address] [id number] [place] [address] January, [facility] [place] [facility] [address] [id number] [place] [address] Dec, [facility] [place] [facility] [address] [id number] [place] [address] Dec, [facility] [place] [facility] [address] [id number] [place] [address] Dec, [facility] [place] [facility] [address] [id number] [place] [address] Dec, [facility] [address] [id number] [place] [address] Dec, [facility] [place] [facility] [address] [id number] [place] [address] Dec, [facility] [place] [facility] [address] [id number] [place] [address] Dec, [facility] [place] [facility] [address] [id number] [place] [address] Dec, [facility] [place] [facility] [address] [id number] [place] [address] Oct, [facility] [place] [facility] [address] [id number] [place] [address] Oct, [facility] [address] [id number] [place] [address] Aug, [facility] [place] [facility] [address] [id number] [place] [address] Aug, [facility] [place] [facility] [address] [id number] [place] [address] Jul, [facility] [place] [facility] [address] [id number] [place] [address] Jul, [facility] [place] [facility] [address] [id number] [place] [address] Mar, [facility] [place] [facility] [address] [id number] [place] [address] Mar, [facility] [place] [facility] [address] [id number] [place] [address] Mar, [facility] [place] [facility] [address] [id number] [place] [address] Feb, [facility] [place] [facility] [address] [id number] [place] [address] Feb, [facility] [place] [facility] [address] [id number] [place] [address] Feb, [facility] [address] [id number] [place] [address] January, [facility] [address] [id number] [place] [address] January, [facility] [address] [id number] [place] [address] January, [facility] [address] [id number] [place] [address] January, [facility] [address] [id number] [place] [address] January, [facility] [address] [id number] [place] [address] January, [facility] [address] [id number] [place] [address] January, [facility] [address] [id number] [place] [address] Dec, [facility] [address] [id number] [place] [address] Dec, [facility] [address] [id number] [place] [address] Dec, [facility] [address] [id number] [place] [address] Dec, [facility] [address] [id number] [place] [address] Nov, [facility] [place] [facility] [address] [id number] [place] [address] Nov, [facility] [facility] [place] [facility] [address] [id number] [place] [address] Nov, [facility] [address] [id number] [place] [address] Oct, [facility] [address] [id number] [place] [address] Oct, [facility] [address] [id number] [place] [address] Oct, [facility] [address] [id number] [place] [address] Oct, [facility] [address] [id number] [place] [address] Oct, [facility] [address] [id number] [place] [address] 05 Oct, 2012 [facility] [address] [id number] [place] [address] 30 Sep, 2012 [facility] [address] [id number] [place] [address] Sep, [facility] [address] [id number] [place] [address] Sep, [facility] [address] [id number] [place] [address] Sep, [facility] [address] [facility] [id number] [place] [address] Sep, [facility] [address] [id number] [place] [address] Aug, [facility] [address] [id number] [place] [address] Aug, [facility] [address] [id number] [place] [address] Aug, [facility] [address] [id number] [place] [address] Aug, [facility] [address] [id number] [place] [address] Aug, [facility] [place] [facility] [address] [id number] [place] [address] Aug, [facility] [place] [facility] [address] [id number] [place] [address] Jul, [facility] [place] [facility] [address] [id number] [place] [address] Jul, [facility] [place] [facility] [address] [id number] [place] [address] Jul, [facility] [place] [facility] [address] [id number] [place] [address] Jul, [facility] [place] [facility] [address] [id number] [place] [address] Jul, [facility] [place] [facility] [address] [id number] [place] [address] Jul, [facility] [place] [facility] [address] [id number] [place] [address] Jul, [facility] [place] [facility] [address] [id number] [place] [address] 15 Jul, 2012 [facility] [place] [facility] [address] [id number] [place] [address] 14 Jul, 2012 [facility] [place] [facility] [address] [id number] [place] [address] Jul, [facility] [place] [facility] [address] [id number] [place] [address] Jul, [facility] [place] [facility] [address] [id number] [place] [address] Jul, [facility] [place] [facility] [address] [id number] [place] [address] Jul, [facility] [place] [facility] [address] [id number] [place] [address] 08 Jul, 2012 [facility] [place] [facility] [address] [id number] [place] [address] Jul, [facility] [place] [facility] [address] [id number] [place] [address] 25[address] 08 Jul, 2012 [facility] [place] [facility] [address] [id number] [place] [address] Jul, [facility] [place] [facility] [address] [facility] [id number] [place] [address] Jul, [facility] [place] [facility] [address] [id number] [place] [address] Jul, [facility] [place] [facility] [address] [id number] [place] [address] 25[address] Jun, [facility] [place] [facility] [address] [id number] [place] [address] 25[address] Jun, [facility] [place] [facility] [address] [facility] [id number] [place] [address] May, [facility] [place] [facility] [address] [id number] [address] Apr, [facility] [place] [facility] [address] [id number] [address] Mar, [facility] [place] [facility] [address] [facility] [id number] [address] 25[address] Feb, [facility] [place] [facility] [address] [facility] [id number] [address] Feb, [facility] [place] [facility] [address] [id number] [address] Feb, [facility] [place] [facility] [address] [id number] [place] [address] January, [facility] [place] [facility] [address] [facility] [id number] [address] January, [facility] [place] [facility] [address] [facility] [id number] [address]- [address] Dec, [facility] [place] [facility] [address] [id number] [place] [address]- [address] 25 Dec, 2011 [facility] [place] [facility] [address] [id number] [place] [address]- [address] 08 Nov, 2011 [facility] [place] [facility] [address] [id number] [place] [address]- [address] 12 Aug, 2011 [facility] [place] [facility] [address] [id number] [place] [address]- [address] 16 Jul, 2011 [facility] [place] [facility] [address] [id number] [place] [address]- [address] 16 Jul, 2011 [facility] [place] [facility] [address] [id number] [place] [address]- [address] 16 Jul, 2011 [facility] [place] [facility] [address] [id number] [place] [address] 12 Jun, 2011 [facility] [place] [facility] [address] [id number] [place] [address]- [address] 12 Jun, 2011 [facility] [place] [facility] [address] [id number] [place] [address]- [address] 14 May, 2011 [facility] [place] [facility] [address] [id number] [place] [address]- [address] 10 Apr, 2011 [facility] [place] [facility] [address] [id number] [place] [address] January, [facility] [place] [facility] [address] [id number] [place] [address]- [address] 13 Dec, 2010 [facility] [place] [facility] [address] [id number] [place] [address]- [address] 16 Nov, 2010 [facility] [place] [facility] [address] [id number] [place] [address]- [address] 10 Oct, 2010 [facility] [place] [facility] [address] [id number] [place] [address]- [address] 14 Jun, 2010 [facility] [place] [facility] [address] [id number] [place] [address]- [address] 14 Jun, 2010 [facility] [address] [facility] [id number], [place] [address] 11 Oct, 2009 [facility] [address] [facility] [id number], [place] [address]- [address] Aug, [facility] [address] [facility] [id number][place] [address] Jul, [facility] [address] [facility] [id number], [place] [address] Dec, IMMUNIZATIONS No Known Immunizations SOCIAL HISTORY Never Assessed REASON FOR VISIT ear lavage per pts request. [email or web address] PLAN OF CARE VITAL SIGNS Height 61 in 2018-03-14 Weight 184.8 lbs 2018-03-14 Temperature 97.9 degrees Fahrenheit 2018-03-14 Heart Rate 74 bpm 2018-03-14 Respiratory Rate 20 2018-03-14 BMI 34.91 kg/m2 2018-03-14 Blood pressure systolic 112 mmHg 2018-03-14 Blood pressure diastolic 68 mmHg 2018-03-14 MEDICATIONS Medication Instructions Dosage Frequency Start Date End Date Duration Status Unisom Not-Taking Claritin 10 MG Orally Once a day 1 tablet 24h Feb, Mar, 30 day(s) Active Benadryl Not-Taking Cetirizine HCl 10 MG Orally Once a day 1 tablet 24h Not-Taking Flonase 50 MCG/ACT Nasally Once a day 1 spray in each nostril 24h Feb, 30 day(s) Active Zoloft 50 mg Orally Once a day 1 tablet 24h Sep, 30 days Not- Taking RESULTS No Results PROCEDURES No Known procedures [...] History Attempted overdose on Zoloft and Benadryl 2017
--- OUTSIDE RECORDS SUMMARY | 2018-12-13 17:47 | XMS REPORT ---
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 Name Role Phone ZAYRA GOMEZ Unavailable PROBLEMS Type Condition ICD9-CM Code AYK03-AZ Code Onset Dates Condition Status SNOMED Code Problem Depression, unspecified depression type F32.9 Active 48026628 Problem Seasonal allergic rhinitis, unspecified allergic rhinitis trigger J30.2 Active 811868828 Problem Irregular periods/menstrual cycles N92.6 Active 35366953 Problem Seasonal allergies J30.2 Active 826643533 Problem Missed period N92.6 Active 88134479 Problem Other headache syndrome G44.89 Active 946275240 Problem Anemia, O90.81 Active 827006622 Problem DANIELLA (generalized anxiety disorder) F41.1 Active 33124485 Problem Dysthymic disorder F34.1 Active 24147991 ALLERGIES No Information ENCOUNTERS Encounter Location Date Diagnosis [facility] [address] [address] Mar, Pain of left calf M79.662 and Muscle spasm of left calf M62.831 [place] [id number] [place] [address] 28174- 6260 Mar, care in second trimester Z34.92 [facility] [id number] [place] [address] 14102- 7779 Mar, Bilateral impacted cerumen H61.23 [place] [address] 09428- 0799 Feb, [facility] [id number] [place] [address] 01421 -5572 Feb, [facility] [address] 10244- 1011 20 Feb, 2018 Normal in multigravida Z34.80 [facility] [id number] [place] [address] 15722- 8998 13 Feb, 2018 Painful urination R30.9 and Encounter for supervision of normal in second trimester Z34.92 [facility] [id number] [place] [address] 69186 -7049 07 Feb, 2018 Seasonal allergies J30.2 [facility] [address] 03007- 4918 Feb, [place] [address] 12611- 3160 Feb, [facility] [address] 08228 -1622 January, Seasonal allergic rhinitis, unspecified trigger J30.2 [facility] [address] 33112 -8381 January, [facility] [address] 87989 -9306 January, Viral gastroenteritis A08.4 [place] [address] 05854- 4593 January, [facility] [id number] [place] [address] 74524- 2850 January, care in first trimester Z34.91 [facility] [id number] [place] [address] 02450- 1725 January, [facility] [id number] [place] [address] 11149 -3000 January, Left ankle pain, unspecified chronicity M25.572 [facility] [id number] [place] [address] 88376- 7605 January, [facility] [id number] [place] [address] 45671- 4199 January, Dysthymic disorder F34.1 and DANIELLA (generalized anxiety disorder) F41.1 [facility] [id number] [place] [address] 42514 -7936 January, Impacted cerumen of both ears H61.23 [facility] [id number] [place] [address] 24948- 7481 Dec, [facility] [address] 09538- 6617 Dec, in multigravida Z34.80 [place] [address] 18178- 2204 Dec, DANIELLA (generalized anxiety disorder) F41.1 and Dysthymic disorder F34.1 [facility] [id number] [place] [address] 49813- 5868 Dec, [facility] [address] 56858- 8411 Nov, [place] [id number] [place] [address] 58029- 1857 Nov, [place] [address] 20090- 9759 Nov, Painful urination R30.9 ; Vaginal yeast infection B37.3 and Early stage of Z34.90 [place] [id number] [place] [address] 44182- 4842 Nov, in multigravida Z34.80 [place] [id number] [place] [address] 53852- 4073 Nov, Dysfunction of right eustachian tube H69.81 and Bilateral impacted cerumen H61.23 [facility] [id number] [place] [address] 95014- 3825 Nov, [facility] [address] 92166- 0428 Nov, [facility] [id number] [place] [address] 83438- 2036 Nov, [facility] [id number] [place] [address] 26065 -5596 Nov, Missed period N92.6 [place] [id number] [place] [address] 96601- 9596 Sep, DANIELLA (generalized anxiety disorder) F41.1 and Dysthymic disorder F34.1 [facility] [id number] [place] [address] 59616 -7836 Aug, Acute nasopharyngitis J00 [place] [address] 95122- 4862 Jul, Irregular periods/menstrual cycles N92.6 [place] [address] 34666- 0934 Jul, Bilateral impacted cerumen H61.23 [place] [id number] [place] [address] 40713- 3512 Jul, DANIELLA (generalized anxiety disorder) F41.1 and Dysthymic disorder F34.1 [place] [id number] [place] [address] 48430- 9749 Jun, [place] [id number] [place] [address] 27932- 3605 Jun, Dysthymic disorder F34.1 [place] [id number] [place] [address] 68771- 8135 Jun, Anemia, O90.81 ; Lower abdominal pain R10.30 ; Allergic contact dermatitis due to adhesives L23.1 and Other headache syndrome G44.89 [place] [id number] [place] [address] 65156- 3715 Jun, 39 weeks gestation of Z3A.39 [place] [address] 76155- 5013 27 May, 2017 care in third trimester Z34.93 [facility] [id number] [place] [address] 65410 -8802 24 May, 2017 Acute seasonal allergic rhinitis, unspecified trigger J30.2 [place] [id number] [place] [address] 08649- 5428 20 May, 2017 Normal in multigravida Z34.80 [facility] [address] 31252 -3389 17 May, 2017 Urinary frequency R35.0 and Pain of round ligament N94.9 [place] [address] 30603- 8960 13 May, 2017 35 weeks gestation of Z3A.35 [place] [address] 00621- 7762 Apr, High risk sexual behavior Z72.51 and 33 weeks gestation of Z3A.33 [place] [address] 88044- 3725 Apr, care in third trimester Z34.93 [facility] [id number] [place] [address] 06611 -4093 Apr, Bilateral impacted cerumen H61.23 [place] [id number] [place] [address] 74193- 4384 Apr, 30 weeks gestation of Z3A.30 and Encounter for immunization Z23 [place] [id number] [place] [address] 46800- 5245 Mar, 28 weeks gestation of Z3A.28 [place] [address] 33684- 0900 Mar, [place] [id number] [place] [address] 93823- 1597 Mar, [place] [address] 85082- 1737 Mar, [place] [id number] [place] [address] 56986- 5764 12 Mar, 2017 26 weeks gestation of Z3A.26 [facility] [id number] [place] [address] 12451 -7515 03 Mar, 2017 Acute back pain M54.[address] [address]- 1953 28 Feb, 2017 24 weeks gestation of Z3A.24 [facility] [address] [place] [id number] [place] [address] 24710 -8996 27 Feb, 2017 Lower abdominal pain R10.30 [facility] [address] [place] [id number] [place] [address] 11172 -4067 25 Feb, 2017 Gastroenteritis and colitis, viral A08.[address] 50057- 4008 14 Feb, 2017 care in second trimester Z34.92 [place] [id number] [place] [address] 74034- 7707 07 Feb, 2017 [facility] [address] [place] [id number] [place] [address] 94394 -2847 04 Feb, 2017 Abscess L02.91 [facility] [place] [id number] [place] [address] 04996 -8465 Feb, Vaginal flavia B37.3 [place] [id number] [place] [address] 63658- 6147 January, 20 weeks gestation of Z3A.20 [place] [id number] [place] [address] 10323- 9260 January, [facility] [address] [place] [id number] [place] [address] 86399 -8649 January, Seasonal allergic rhinitis, unspecified allergic rhinitis trigger J30.2 [facility] [address] [place] [address] [address] January, Dermatitis L30.9 and Bug bites, initial encounter W57.XXXA [address] 44841- 9242 January, Sore throat J02.9 and Seasonal allergic rhinitis, unspecified allergic rhinitis trigger J30.[address] 64377- 8781 January, 16 weeks gestation of Z3A.16 [place] [address] 32373- 0117 Dec, care in first trimester Z34.[address] 77836- 0456 Nov, care in first trimester Z34.91 and Normal in multigravida Z34.80 [facility] [address] 58545 -8896 Oct, Nausea and vomiting during O21.[address] 72163- 6805 Oct, [place] [address] 27499- 1257 Oct, [address] 60190- 6870 Oct, Encounter for test, result unknown Z32.[address] 28687- 1166 Sep, Irregular periods/menstrual cycles N92.6 ; Sore throat J02.9 ; Nausea R11.0 and Right ear impacted cerumen H61.21 [facility] [address] [place] [id number] [place] [address] 18521 -6556 Jul, Vaginal discharge N89.8 ; Other specified bacterial agents as the cause of diseases classified elsewhere B96.89 and Acute vaginitis N76.0 [place] [id number] [place] [address] 20956- 8073 10 Jun, 2016 Depression, unspecified depression type F32.9 [place] [id number] [place] [address] 84619- 0023 23 May, 2016 Vaginal candidiasis B37.3 [place] [address] 38705- 7484 20 May, 2016 Acute pharyngitis, unspecified etiology J02.9 [place] [id number] [place] [address] 84611- 3014 19 May, 2016 Depression, unspecified depression type F32.9 [place] [id number] [place] [address] 63036- 3270 12 May, 2016 Depression, unspecified depression type F32.9 [place] [id number] [place] [address] 98327- 8944 12 May, 2016 Dysthymic disorder F34.1 [facility] [id number] [place] [address] 03403 -1224 Apr, Acute suppurative otitis media of right ear without spontaneous rupture of tympanic membrane, recurrence not specified H66.001 [facility] [id number] [place] [address] 13033 -9234 Mar, Herpes zoster without complication B02.9 [facility] [id number] [place] [address] 44845 -4900 Dec, Allergic rhinitis J30.9 [facility] [id number] [place] [address] 32947 -2580 Dec, Lumbago M54.5 [facility] [id number] [place] [address] 80573 -2391 18 Oct, 2015 Dysuria R30.0 and Urinary tract infection N39.0 [facility] [id number] [place] [address] 93895 -8796 Sep, Acute nasopharyngitis J00 and Strep pharyngitis J02.0 [place] [id number] [place] [address] 02486- 4624 Jul, Upper respiratory tract infection, unspecified type J06.9 [place] [id number] [place] [address] 11597- 7912 Jun, Irritable bowel syndrome without diarrhea K58.9 [place] [id number] [place] [address] 98348- 3114 Jun, [place] [address] 74481- 9142 May, [place] [id number] [place] [address] 73325- 9671 May, [place] [address] 10680- 8429 May, Otitis externa of left ear 380.10 [place] [id number] [place] [address] 47441- 7627 May, Pain in joint, ankle and foot 719.47 [place] [id number] [place] [address] 52538- 4385 Apr, Pain in joint, ankle and foot 719.47 [place] [id number] [place] [address] 94560- 9168 Mar, Dysuria 788.1 and Incontinence in female 625.6 [place] [id number] [place] [address] 26896- 0826 Feb, Plantar fasciitis of right foot 728.71 ; Ankle weakness 719.67 and Ankle pain, chronic 719.47 [place] [id number] [place] [address] 75055- 6335 Feb, [place] [id number] [place] [address] 55159- 7225 Feb, Belching 787.3 and Chest wall pain 786.52 [facility] [address] [id number] [place] [address]- 9894 14 Dec, 2014 [facility] [address] [id number] [place] [address]- 9715 Dec, [facility] [address] [id number] [place] [address]- 5302 16 Nov, 2014 [facility] [address] [id number] [place] [address]- 4414 Nov, [facility] [address] [id number] [place] [address], [place] [address]- 3431 Sep, [facility] [address] [facility] [id number] [place] [address]- 6236 Sep, [facility] [id number] [place] [address], [place] [address]- 6209 Sep, [facility] [address] [facility] [id number] [place] [address]- 1773 Sep, [facility] [address] [id number] [place] [address]- 9008 Aug, [facility] [address] [facility] [id number] [place] [address]- 2798 Aug, [facility] [address] [id number] [place] [address]- 1374 Aug, [facility] [address] [facility] [id number] [address]- 4251 Aug, [facility] [address] [facility] [id number] [place] 8221 Aug, [facility] [address] [facility] [id number] [place] 3368 Aug, [facility] [address] [facility] [id number] 9869 Aug, [facility] [place] [facility] [address] [id number] [place] [address]- 2395 Aug, [facility] [place] [facility] [address] [id number] [place] 0676 Aug, [facility] [place] [facility] [address] [id number] [place] [address]- 7802 Aug, [facility] [place] [facility] [address] [id number] [place] [address]- 2503 Aug, [facility] [place] [facility] [address] [id number] [place] [address]- 0407 Aug, [facility] [place] [facility] [address] [id number] [place] [address]- 2418 Aug, [facility] [place] [facility] [address] [id number] [place] [address]- 6551 Aug, [facility] [place] [facility] [address] [id number] [place] [address]- 4944 Jul, [facility] [place] [facility] [address] [id number] [place] [address]- 3154 Jul, [facility] [place] [facility] [address] [id number] [place] [address]- 0732 Jul, [facility] [place] [facility] [address] [id number] [place] [address]- 4263 Jul, [facility] [place] [facility] [address] [id number], [place] [address]- 8897 Jul, [facility] [place] [facility] [address] [id number] [place] [address]- 5102 Jul, [facility] [place] [facility] [address] [id number] [place] [address]- 0407 Jul, [facility] [place] [facility] [address] [id number] [place]- 0152 Jun, [facility] [place] [facility] [address] [id number] [place] [address]- 9184 Jun, [facility] [place] [facility] [address] [id number] [place] [address]- 7531 Jun, [facility] [place] [facility] [address] [id number] [place]- 7653 Jun, [facility] [place] [facility] [address] [id number] [place] [address]- 9014 Jun, [facility] [place] [facility] [address] [id number] [place] [address]- 3063 Jun, [facility] [place] [facility] [address] [id number] [place] [address]- 4896 Jun, [facility] [place] [facility] [address] [id number] [place] [address]- 3728 Jun, [facility] [place] [facility] [address] [id number] [place] [address]- 1202 Jun, [facility] [place] [facility] [address] [id number] [place] [address]- 2264 Jun, [facility] [place] [facility] [address] [id number] [place] [address]- 1902 Jun, [facility] [place] [facility] [address] [id number] [place] [address]- 8102 Jun, [facility] [place] [facility] [address] [id number], [place] [address]- 9561 Jun, [facility] [place] [facility] [address] [id number] [address]- 6708 Jun, [facility] [place] [facility] [address] [id number] [place] [address]- 8596 May, [facility] [place] [facility] [address] [id number] [place] [address]- 5327 May, [facility] [place] [facility] [address] [id number] [place] [address]- 9690 May, [facility] [place] [facility] [address] [id number] [place] [address]- 4275 May, [facility] [place] [facility] [address] [id number] [place] [address]- 5184 May, [facility] [place] [facility] [address] [id number] [place] [address]- 7530 Apr, [facility] [place] [facility] [address] [id number] [place] [address]- 9105 Apr, [facility] [place] [facility] [address] [id number] [place] [address]- 0983 Apr, [facility] [place] [facility] [address] [id number] [place] [address]- 4292 Apr, [facility] [place] [facility] [address] [id number] [place] [address]- 6889 Mar, [facility] [place] [facility] [address] [id number] [place] [address]- 8334 Mar, [facility] [place] [facility] [address] [id number] [place] [address]- 9163 Mar, [facility] [place] [facility] [address] [id number] [place] [address]- 7060 Mar, [facility] [place] [facility] [address] [id number] [place] [address]- 6788 Mar, [facility] [place] [facility] [address] [id number] [place] [address]- 5394 Mar, [facility] [place] [facility] [address] [id number] [place] [address]- 0437 Mar, [facility] [place] [facility] [address] [id number] [place] [address]- 7670 Mar, [facility] [place] [facility] [address] [id number] [place] [address]- 7188 Feb, [facility] [place] [facility] [address] [id number] [place] [id number]- 6524 Feb, [facility] [place] [facility] [address] [id number] [place] [address]- 1121 Feb, [facility] [place] [facility] [address] [id number] [place] [address]- 1001 Feb, [facility] [place] [facility] [address] [id number] [place] [address]- 8216 Feb, [facility] [place] [facility] [address] [id number] [place] [address]- 9390 Feb, [facility] [place] [facility] [address] [id number] [place] [address]- 7455 Feb, [facility] [place] [facility] [address] [id number] [place] [address]- 2696 Feb, [facility] [place] [facility] [address] [id number] [place] [address]- 6792 January, [facility] [place] [facility] [address] [id number] [place] [address]- 4839 January, [facility] [place] [facility] [address] [id number] [place] [address]- 9867 January, [facility] [place] [facility] [address] [id number] [place] [address]- 1048 January, [facility] [place] [facility] [address] [id number] [place] [address]- 1437 January, [facility] [place] [facility] [address] [id number] [place] [address] January, [facility] [place] [facility] [address] [id number] [place] [address] Dec, [facility] [place] [facility] [address] [id number] [place] [address] Dec, [facility] [place] [facility] [address] [id number] [place] [address] Dec, [facility] [place] [facility] [address] [id number] [place] [address] Dec, [facility] [address] [id number] [place] [address] Dec, [facility] [place] [facility] [address] [id number] [place] [address] Dec, [facility] [place] [facility] [address] [id number] [place] [address] Dec, [facility] [place] [facility] [address] [id number] [place] [address] Dec, [facility] [place] [facility] [address] [id number] [place] [address] Oct, [facility] [place] [facility] [address] [id number] [place] [address] Oct, [facility] [address] [id number] [place] [address] Aug, [facility] [place] [facility] [address] [id number] [place] [address] Aug, [facility] [place] [facility] [address] [id number] [place] [address] Jul, [facility] [place] [facility] [address] [id number] [place] [address] Jul, [facility] [place] [facility] [address] [id number] [place] [address] Mar, [facility] [place] [facility] [address] [id number] [place] [address] Mar, [facility] [place] [facility] [address] [id number] [place] [address] Mar, [facility] [place] [facility] [address] [id number] [place] [address] Feb, [facility] [place] [facility] [address] [id number] [place] [address] Feb, [facility] [place] [facility] [address] [id number] [place] [address] Feb, [facility] [address] [id number] [place] [address] January, [facility] [address] [id number] [place] [address] January, [facility] [address] [id number] [place] [address] January, [facility] [address] [id number] [place] [address] January, [facility] [address] [id number] [place] [address] January, [facility] [address] [id number] [place] [address] January, [facility] [address] [id number] [place] [address] January, [facility] [address] [id number] [place] [address] Dec, [facility] [address] [id number] [place] [address] Dec, [facility] [address] [id number] [place] [address] Dec, [facility] [address] [id number] [place] [address] Dec, [facility] [address] [id number] [place] [address] Nov, [facility] [place] [facility] [address] [id number] [place] [address] Nov, [facility] [place] [facility] [address] [id number] [place] [address] Nov, [facility] [address] [id number] [place] [address] Oct, [facility] [address] [id number] [place] [address] Oct, [facility] [address] [id number] [place] [address] Oct, [facility] [address] [id number] [place] [address] Oct, [facility] [address] [id number] [place] [address] Oct, [facility] [address] [id number] [place] [address] 05 Oct, 2012 [facility] [address] [id number] [place] [address] 30 Sep, 2012 [facility] [address] [id number] [place] [address] Sep, [facility] [address] [id number] [place] [address] Sep, [facility] [address] [id number] [place] [address] Sep, [facility] [address] [facility] [id number] [place] [address] Sep, [facility] [address] [id number] [place] [address] Aug, [facility] [address] [id number] [place] [address] Aug, [facility] [address] [id number] [place] [address] Aug, [facility] [address] [id number] [place] [address] Aug, [facility] [address] [id number] [place] [address] Aug, [facility] [place] [facility] [address] [id number] [place] [address] Aug, [facility] [place] [facility] [address] [id number] [place] [address] Jul, [facility] [place] [facility] [address] [id number] [place] [address] Jul, [facility] [place] [facility] [address] [id number] [place] [address] Jul, [facility] [place] [facility] [address] [id number] [place] [address] Jul, [facility] [place] [facility] [address] [id number] [place] [address] Jul, [facility] [place] [facility] [address] [id number] [place] [address] Jul, [facility] [place] [facility] [address] [id number] [place] [address] Jul, [facility] [place] [facility] [address] [id number] [place] [address] 15 Jul, 2012 [facility] [place] [facility] [address] [id number] [place] [address] 14 Jul, 2012 [facility] [place] [facility] [address] [id number] [place] [address] Jul, [facility] [place] [facility] [address] [id number] [place] [address] Jul, [facility] [place] [facility] [address] [id number] [place] [address] Jul, [facility] [place] [facility] [address] [id number] [place] [address] Jul, [facility] [place] [facility] [address] [id number] [place] [address] 08 Jul, 2012 [facility] [place] [facility] [address] [id number] [place] [address] Jul, [facility] [place] [facility] [address] [id number] [place] [address] 2546 08 Jul, 2012 [facility] [place] [facility] [address] [id number] [place] [address] Jul, [facility] [place] [facility] [address] [facility] [id number] [place] [address] Jul, [facility] [place] [facility] [address] [id number] [place] [address] Jul, [facility] [place] [facility] [address] [id number] [place] [address] 2546 Jun, [facility] [place] [facility] [address] [id number] [place] [address] 2546 Jun, [facility] [place] [facility] [address] [facility] [id number] [place] [address] May, [facility] [place] [facility] [address] [id number], [place] [address] Apr, [facility] [place] [facility] [address] [id number] [address] Mar, [facility] [place] [facility] [address] [facility] [id number] [address] 25[address] Feb, [facility] [place] [facility] [address] [facility] [id number], [place] [address] Feb, [facility] [place] [facility] [address] [id number] [address] Feb, [facility] [place] [facility] [address] [id number] [place] [address] January, [facility] [place] [facility] [address] [facility] [id number] [address] January, [facility] [place] [facility] [address] [facility] [id number], [place] [address] Dec, [facility] [place] [facility] [address] [id number] [place] [address]- [address] 25 Dec, 2011 [facility] [place] [facility] [address] [id number] [place] [address] 08 Nov, 2011 [facility] [place] [facility] [address] [id number] [place] [address]- [address] 12 Aug, 2011 [facility] [place] [facility] [address] [id number] [place] [address]- 59[address] 16 Jul, 2011 [facility] [place] [facility] [address] [id number] [place] [address]- [address] 16 Jul, 2011 [facility] [place] [facility] [address] [id number] [place] [address]- [address] 16 Jul, 2011 [facility] [place] [facility] [address] [id number] [place] [address]- [address] 12 Jun, 2011 [facility] [place] [facility] [address] [id number] [place] [address]- [address] 12 Jun, 2011 [facility] [place] [facility] [address] [id number] [place] [address]- [address] 14 May, 2011 [facility] [place] [facility] [address] [id number] [place] [address] 10 Apr, 2011 [facility] [place] [facility] [address] [id number] [place] [address] January, [facility] [place] [facility] [address] [id number] [place] [address]49 13 Dec, 2010 [facility] [place] [facility] [address] [id number] [place] [address]- 6527 16 Nov, 2010 [facility] [place] [facility] [address] [id number] [place] [address]- [address] 10 Oct, 2010 [facility] [place] [facility] [address] [id number] [place] [address]- 264[address] 14 Jun, 2010 [facility] [place] [facility] [address] [id number] [place] [address]- [address] 14 Jun, 2010 [facility] [address] [facility] [id number], [place] [address] Oct, [facility] [address] [id number], [place] [address] Aug, [facility] [address] [facility] [id number], [place] [address] Jul, [facility] [address] [facility] [id number] [address] Dec, IMMUNIZATIONS No Known Immunizations SOCIAL HISTORY Never Assessed REASON FOR VISIT OB 4wk f/u-awoods PLAN OF CARE Activity Details Follow Up 4 Weeks Reason: VITAL SIGNS Height 61 in 2018-03-04 Weight 181 lbs 2018-03-04 Temperature 98.2 degrees Fahrenheit 2018-03-04 Heart Rate 76 bpm 2018-03-04 Respiratory Rate 20 2018-03-04 BMI 34.2 kg/m2 2018-03-04 Blood pressure systolic 130 mmHg 2018-03-04 Blood pressure diastolic 72 mmHg 2018-03-04 MEDICATIONS Medication Instructions Dosage Frequency Start Date End Date Duration Status Flonase 50 MCG/ACT Nasally Once a day 1 spray in each nostril 24h Feb, 30 day(s) Active Claritin 10 MG Orally Once a day 1 tablet 24h Feb, Mar, 30 day(s) Active Benadryl Not-Taking Zoloft 50 mg Orally Once a day 1 tablet 24h Sep, 30 days Active Unisom Not-Taking Cetirizine HCl 10 MG Orally Once a day 1 tablet 24h Not-Taking RESULTS Name Result Date Reference Range UA LONG DIP (IN HOUSE) 2018-03-04 Lot # [id number] Exp date 01/08 Clarity cloudy Color yellow Odor slight GLU neg SARMAD neg KET neg SG 1.030 BLO 3+ pH 6.0 Protein neg URO 0.2 NIT neg ROSENDA neg Lot # Exp date GC/CHLAM URINE (STATE) 2018-03-04 CHLAMYDIA neg GC neg PROCEDURES Procedure Date Ordered Result Body Site URINALYSIS, AUTO, W/O SCOPE March 04, 2018 No Charge March 04, 2018 INSTRUCTIONS MEDICATIONS ADMINISTERED No Known Medications [...]
--- OUTSIDE RECORDS SUMMARY | 2018-12-13 17:48 | XMS REPORT ---
Author Author MASON OLIVO [facility] Address [address] [place] [address] Care Team Providers Care Cad Detailer Name Role Phone MASON OLIVO Unavailable PROBLEMS Type Condition ICD9-CM Code [id number] Code Onset Dates Condition Status SNOMED Code Problem Depression, unspecified depression type F32.9 Active 14306734 Problem Seasonal allergic rhinitis, unspecified allergic rhinitis trigger J30.2 Active 492032848 Problem Irregular periods/menstrual cycles N92.6 Active 02214575 Problem Seasonal allergies J30.2 Active 011329818 Problem Missed period N92.6 Active 87263998 Problem Other headache syndrome G44.89 Active 144075995 Problem Anemia, O90.81 Active 491767595 Problem DANIELLA (generalized anxiety disorder) F41.1 Active 20613671 Problem Dysthymic disorder F34.1 Active 08980330 ALLERGIES Substance Reaction Event Type Date Status Cefaclor Unknown Drug Allergy Feb, Active ENCOUNTERS Encounter Location Date Diagnosis [facility] [id number] [place] [address]502 [address]9327 Mar, Pain of left calf M79.662 and Muscle spasm of left calf M62.831 [place] [address] [place] [address] 88969- 1165 Mar, care in second trimester Z34.92 [facility] [id number] [place] [address] 21179- 1423 Mar, Bilateral impacted cerumen H61.23 [place] [address] [place] [id number] [place] [address] 30367- 0808 Feb, [facility] [address] [id number] [address] Feb, [facility] [id number] [place] [address] 01388- 8965 20 Feb, 2018 Normal in multigravida Z34.80 [place] [address] 17143- 8087 13 Feb, 2018 Painful urination R30.9 and Encounter for supervision of normal in second trimester Z34.92 [facility] [id number] [place] [address] 54148 -2513 07 Feb, 2018 Seasonal allergies J30.2 [facility] [address] 63825- 3215 Feb, [place] [address] 11514- 0135 Feb, [facility] [address] 29935 -8987 January, Seasonal allergic rhinitis, unspecified trigger J30.2 [facility] [address] [place] [id number] [place] [address] 66867 -0735 January, [facility] [address] [address] [id number] [place] [address] 42774 -9358 January, Viral gastroenteritis A08.4 [facility] [address] [place] [address] [id number] [place] [address] 61634- 1880 January, [place] [address] [address] [id number] [place] [address] 77623- 9372 16 Jan, 2018 care in first trimester Z34.91 [facility] [id number] [place] [address] 79345- 3383 January, [facility] [id number] [place] [address] 94045 -8342 January, Left ankle pain, unspecified chronicity M25.572 [facility] [address] [place] [id number] [place] [address] 93100- 6104 January, [facility] [address] [place] [address]- 7586 January, Dysthymic disorder F34.1 and DANIELLA (generalized anxiety disorder) F41.1 [facility] [id number] [place] [address] 06355 -2547 January, Impacted cerumen of both ears H61.23 [facility] [address] [place] [address] [id number] [place] [address] 00830- 7913 Dec, [facility] [address] 36428- 1811 Dec, in multigravida Z34.80 [place] [address] 15129- 0545 Dec, DANIELLA (generalized anxiety disorder) F41.1 and Dysthymic disorder F34.1 [place] [address] 93671- 4254 Dec, [facility] [address] [address] [id number] [place] [address] 17806- 1690 Nov, [place] [address] 80164- 2853 Nov, [place] [address] [address] [id number] [place] [address] 23496- 6985 Nov, Painful urination R30.9 ; Vaginal yeast infection B37.3 and Early stage of Z34.90 [facility] [address] [place] [id number] [place] [address] 76195- 7711 Nov, in multigravida Z34.80 [place] [address] [address] [id number] [place] [address] 53916- 2045 Nov, Dysfunction of right eustachian tube H69.81 and Bilateral impacted cerumen H61.23 [facility] [address] [address] [id number] [place] [address] 25389- 7058 Nov, [facility] [address] [place] [address]- 1870 Nov, [facility] [id number] [place] [address] 11357- 5038 Nov, [facility] [id number] [place] [address] 73226 -8931 Nov, Missed period N92.6 [facility] [address] 95958- 8510 Sep, DANIELLA (generalized anxiety disorder) F41.1 and Dysthymic disorder F34.1 [facility] [address] [id number] [place] [address] 84303 -0384 Aug, Acute nasopharyngitis J00 [place] [address] [address] [id number] [place] [address] 01601- 2164 Jul, Irregular periods/menstrual cycles N92.6 [place] [address] 76938- 8853 Jul, Bilateral impacted cerumen H61.23 [place] [address] [address] [id number] [place] [address] 36062- 6537 Jul, DANIELLA (generalized anxiety disorder) F41.1 and Dysthymic disorder F34.1 [place] [address] [address] [id number] [place] [address] 37177- 5522 Jun, [place] [address] 91777- 0991 Jun, Dysthymic disorder F34.1 [place] [address] [address] [id number] [place] [address] 66946- 3209 Jun, Anemia, O90.81 ; Lower abdominal pain R10.30 ; Allergic contact dermatitis due to adhesives L23.1 and Other headache syndrome G44.89 [place] [address] [address] [id number] [place] [address] 44255- 8333 Jun, 39 weeks gestation of Z3A.39 [place] [address] [address] [id number] [place] [address] 65353- 9882 27 May, 2017 care in third trimester Z34.93 [facility] [place] [address] 78855 -9742 24 May, 2017 Acute seasonal allergic rhinitis, unspecified trigger J30.2 [place] [address] 93080- 2657 20 May, 2017 Normal in multigravida Z34.80 [facility] [address] 97465 -2673 17 May, 2017 Urinary frequency R35.0 and Pain of round ligament N94.9 [place] [address] 95179- 9105 13 May, 2017 35 weeks gestation of Z3A.35 [place] [address] 63510- 3188 Apr, High risk sexual behavior Z72.51 and 33 weeks gestation of Z3A.33 [place] [address] 91421- 0939 Apr, care in third trimester Z34.93 [facility] [place] [address] [place] [id number] [place] [address] 92392 -8324 Apr, Bilateral impacted cerumen H61.23 [place] [address] 76859- 4638 Apr, 30 weeks gestation of Z3A.30 and Encounter for immunization Z23 [place] [address] 54494- 6029 Mar, 28 weeks gestation of Z3A.28 [place] [address] 91858- 6757 Mar, [place] [address] 50584- 5144 Mar, [place] [address] [place] [id number] [place] [address] 49035- 1027 Mar, [place] [address] [place] [id number] [place] [address] 28773- 5205 Mar, 26 weeks gestation of Z3A.26 [facility] [place]note 2[facility] [address] [place] [id number] [place] [address] 90507 -5605 Mar, Acute back pain M54.9 [place] [address] [place] [id number] [place] [address] 24659- 4229 28 Feb, 2017 24 weeks gestation of Z3A.24 [facility] [address] [place] [address] 33677 -8356 27 Feb, 2017 Lower abdominal pain R10.30 [facility] [address] [place] [id number] [place] [address] 11924 -4521 Feb, Gastroenteritis and colitis, viral A08.4 [place] [id number] [place] [address] 20360- 8634 14 Feb, 2017 care in second trimester Z34.92 [place] [id number] [place] [address] 81798- 8879 07 Feb, [address] [facility] [address] [place] [id number] [place] [address] 64249 -8023 04 Feb, 2017 Abscess L02.91 [facility] [place] [id number] [place] [address] 53906 -6205 Feb, Vaginal flavia B37.3 [place] [id number] [place] [address] 48223- 4293 January, 20 weeks gestation of Z3A.20 [place] [id number] [place] [address] 30303- 9320 January, [facility] [address] [place] [id number] [place] [address] 89867 -1070 January, Seasonal allergic rhinitis, unspecified allergic rhinitis trigger J30.[address] [facility] [place]note [facility] [address] [place] [id number] [place] [address] 31261 -1867 January, Dermatitis L30.9 and Bug bites, initial encounter W57.XXXA [place] [address] [place] [id number] [place] [address] 58474- 1154 January, Sore throat J02.9 and Seasonal allergic rhinitis, unspecified allergic rhinitis trigger J30.2 [place] [address] [place] [id number] [place] [address] 52896- 7601 January, 16 weeks gestation of Z3A.[address] 85883- 1565 Dec, care in first trimester Z34.91 [place] [address] 12192- 3034 Nov, care in first trimester Z34.91 and Normal in multigravida Z34.80 [facility] [place] [address] [place] [id number] [place] [address] 39017 -6921 Oct, Nausea and vomiting during O21.9 [place] [address] [place] [id number] [place] [address] 41459- 0963 Oct, [place] [address] [place] [id number] [place] [address] 78731- 2405 Oct, [place] [address] [place] [id number] [place] [address] 30160- 3700 Oct, Encounter for test, result unknown Z32.00 [place] [id number] [place] [address] 65336- 2191 Sep, Irregular periods/menstrual cycles N92.6 ; Sore throat J02.9 ; Nausea R11.0 and Right ear impacted cerumen H61.21 [facility] [place] [id number] [place] [address] 11284 -1691 Jul, Vaginal discharge N89.8 ; Other specified bacterial agents as the cause of diseases classified elsewhere B96.89 and Acute vaginitis N76.0 [place] [address] [place] [id number] [place] [address] 15849- 0181 10 Jun, 2016 Depression, unspecified depression type F32.9 [place] [address] [place] [id number] [place] [address] 53606- 5719 23 May, 2016 Vaginal candidiasis B37.3 [place] [address] 46387- 9636 20 May, 2016 Acute pharyngitis, unspecified etiology J02.9 [place] [address] 22768 4433 19 May, 2016 Depression, unspecified depression type F32.9 [place] [address] 89572- 2089 12 May, 2016 Depression, unspecified depression type F32.9 [place] [address] [place] [id number] [place] [address] 99603- 7206 12 May, 2016 Dysthymic disorder F34.1 [facility] [place]note 2] [address] 55379 -0454 Apr, Acute suppurative otitis media of right ear without spontaneous rupture of tympanic membrane, recurrence not specified H66.001 [facility] [place] [address] [place] [id number] [place] [address] 79755 -2515 Mar, Herpes zoster without complication B02.9 [facility] [place] [address] [place] [id number] [place] [address] 62627 -8683 Dec, Allergic rhinitis J30.9 [facility] [place]note 2] [address] 23195 -9558 03 Dec, 2015 Lumbago M54.5 [facility] [place] [address] [place] [id number] [place] [address] 35214 -6260 18 Oct, 2015 Dysuria R30.0 and Urinary tract infection N39.0 [facility] [address] [place] [address] 17773 -7853 Sep, Acute nasopharyngitis J00 and Strep pharyngitis J02.0 [facility] [address] [place] [id number] [place] [address] 78883- 9715 Jul, Upper respiratory tract infection, unspecified type J06.9 [place] [address] 36900- 8961 Jun, Irritable bowel syndrome without diarrhea K58.9 [place] [address] [place] [id number] [place] [address] 08202- 0341 Jun, [place] [address] 67584- 6777 May, [place] [address] [place] [id number] [place] [address] 42442- 8934 May, [place] [address] 85073- 5660 May, Otitis externa of left ear 380.10 [place] [address] 62434- 4259 May, Pain in joint, ankle and foot 719.47 [place] [address] [place] [id number] [place] [address] 93042- 8871 Apr, Pain in joint, ankle and foot 719.47 [place] [address] [place] [id number] [place] [address] 64796- 9451 Mar, Dysuria 788.1 and Incontinence in female 625.6 [place] [address] [place] [id number] [place] [address] 16233- 4766 Feb, Plantar fasciitis of right foot 728.71 ; Ankle weakness 719.67 and Ankle pain, chronic 719.47 [place] [address] [place] [id number] [place] [address] 49125- 4943 Feb, [place] [address] [place] [id number] [place] [address]- 5864 Feb, Belching 787.3 and Chest wall pain 786.52 [facility] [address] [id number] [place] [address]- 8057 14 Dec, 2014 [facility] [address] [id number] [place] [address]- 5507 Dec, [facility] [address] [id number] [place] [address]- 7786 Nov, [facility] [address] [id number] [place] [address]- 0196 Nov, [facility] [address] [id number] [place] [address]- 0274 Sep, [facility] [address] [facility] [id number] [place] [address]- 4337 Sep, [facility] [address] [facility] [id number] [address]- 3766 Sep, [facility] [address] [id number] [place] [address]- 4468 Sep, [facility] [address] [place] [id number] [address]- 2383 Aug, [facility] [address] [facility] [id number] [address]- 4466 Aug, [facility] [address] [id number] [address]- 7304 Aug, [facility] [place] [facility] [address] [id number] [place] [address]- 2772 Aug, [facility] [address] [facility] [id number] 7556 Aug, [facility] [place] [facility] [address] [facility] [id number] 3714 Aug, [facility] [address] [id number] [address]- 4844 Aug, [facility] [place] [facility] [address] [id number] [place] [address]- 7347 Aug, [facility] [place] [facility] [address] [id number] [address]- 9048 Aug, [facility] [place] [facility] [address] [facility] [id number] [place] [address]- 9979 Aug, [facility] [place] [facility] [address] [id number] [place] [address]- 2108 Aug, [facility] [place] [facility] [address] [facility] [id number] [place] [address]- 4802 Aug, [facility] [place] [facility] [address] [facility] [id number] [place] [address]- 0770 Aug, [facility] [place] [facility] [address] [place] [id number] [address]- 5547 Aug, [facility] [place] [facility] [address] [facility] [id number] [address]- 9220 Jul, [facility] [place] [facility] [address] [facility] [id number] [place] [address]- 0162 Jul, [facility] [place] [facility] [address] [place] [id number] [address]- 9493 Jul, [facility] [place] [facility] [address] [facility] [id number] [address]- 6651 Jul, [facility] [place] [facility] [address] [facility] [id number] [address]- 1725 Jul, [facility] [place] [facility] [address] [id number] [address]- 9096 Jul, [facility] [place] [facility] [address] [facility] [id number] [address]- 5819 Jul, [facility] [place] [facility] [address] [place] [id number] [address]- 1103 Jun, [facility] [place] [facility] [address] [id number] [place] [address]- 3082 Jun, [facility] [place] [facility] [address] [id number] [place] 1601 Jun, [facility] [place] [facility] [address] [id number] [place] [address]- 4583 Jun, [facility] [place] [facility] [address] [id number] [place] 4818 Jun, [facility] [place] [facility] [address] [id number] [place] [address]- 2396 Jun, [facility] [place] [facility] [address] [id number] [place] [address]- 6421 Jun, [facility] [place] [facility] [address] [id number] [place] [address]- 8978 Jun, [facility] [place] [facility] [address] [id number] [place] [address]- 4590 Jun, [facility] [place] [facility] [address] [id number] [place] [address]- 8200 Jun, [facility] [place] [facility] [address] [id number] [place] [address]- 7602 Jun, [facility] [place] [facility] [address] [id number] [place] [address]- 6110 Jun, [facility] [place] [facility] [address] [id number] [place] [address]- 6215 Jun, [facility] [place] [facility] [address] [id number] [place] 0489 Jun, [facility] [place] [facility] [address] [id number] [place] [address]- 4410 May, [facility] [place] [facility] [address] [id number] [place] 6124 May, [facility] [place] [facility] [address] [id number] [place] [address]- 8801 May, [facility] [place] [facility] [address] [id number] [place] [address]- 6514 May, [facility] [place] [facility] [address] [id number] [place] [address]- 9406 May, [facility] [place] [facility] [address] [id number] [place] [address]- 6891 Apr, [facility] [place] [facility] [address] [id number] [place] [address]- 9921 Apr, [facility] [place] [facility] [address] [id number] [place] [address]- 9025 Apr, [facility] [place] [facility] [address] [id number] [place] [address]- 2988 Apr, [facility] [place] [facility] [address] [id number] [place] [address]- 4496 Mar, [facility] [place] [facility] [address] [id number] [place] [address]- 8682 Mar, [facility] [place] [facility] [address] [id number] [place] [address]- 5473 Mar, [facility] [place] [facility] [address] [id number] [place] [address]- 6300 Mar, [facility] [place] [facility] [address] [id number] [place] [address]- 3651 Mar, [facility] [place] [facility] [address] [id number] [place] [address]- 6010 Mar, [facility] [place] [facility] [address] [id number] [place] [address] Mar, [facility] [place] [facility] [address] [id number] [place] [address] Mar, [facility] [place] [facility] [address] [id number] [place] [address] Feb, [facility] [place] [facility] [address] [id number] [place] [address] Feb, [facility] [place] [facility] [address] [id number] [place] [address] Feb, [facility] [place] [facility] [address] [id number] [place] [address] Feb, [facility] [place] [facility] [address] [id number] [place] [address] Feb, [facility] [place] [facility] [address] [id number] [place] [address] Feb, [facility] [place] [facility] [address] [id number] [place] [address] Feb, [facility] [place] [facility] [address] [id number] [place] [address] Feb, [facility] [place] [facility] [address] [id number] [place] [address] January, [facility] [place] [facility] [address] [id number] [place] [address] January, [facility] [place] [facility] [address] [id number] [place] [address] January, [facility] [place] [facility] [address] [id number] [place] [address] January, [facility] [place] [facility] [address] [id number] [place] [address] January, [facility] [place] [facility] [address] [id number] [place] [address] January, [facility] [place] [facility] [address] [id number] [place] [address] Dec, [facility] [place] [facility] [address] [id number] [place] [address] Dec, [facility] [place] [facility] [address] [id number] [place] [address] Dec, [facility] [place] [facility] [address] [id number] [place] [address] Dec, [facility] [place] [facility] [address] [id number] [place] [address] Dec, [facility] [place] [facility] [address] [id number] [place] [address] Dec, [facility] [place] [facility] [address] [id number] [place] [address] Dec, [facility] [place] [facility] [address] [id number] [place] [address] Dec, [facility] [place] [facility] [address] [id number] [place] [address]- 2011 Oct, [facility] [place] [facility] [address] [id number] [place] [address] Oct, [facility] [place] [facility] [address] [id number] [place] [address] Aug, [facility] [place] [facility] [address] [id number] [place] [address] Aug, [facility] [place] [facility] [address] [id number] [place] [address] Jul, [facility] [place] [facility] [address] [id number] [place] [address] Jul, [facility] [place] [facility] [address] [id number] [place] [address] Mar, [facility] [place] [facility] [address] [id number] [place] [address] Mar, [facility] [place] [facility] [address] [id number] [place] [address] Mar, [facility] [place] [facility] [address] [id number] [place] [address] Feb, [facility] [place] [facility] [address] [id number] [place] [address] Feb, [facility] [address] [id number] [place] [address] Feb, [facility] [address] [id number] [place] [address] January, [facility] [address] [id number] [place] [address] January, [facility] [address] [id number] [place] [address] January, [facility] [address] [id number] [place] [address] January, [facility] [address] [id number] [place] [address] January, [facility] [address] [id number] [place] [address] January, [facility] [address] [id number] [place] [address] January, [facility] [address] [id number] [place] [address] Dec, [facility] [address] [id number] [place] [address] Dec, [facility] [address] [id number] [place] [address] Dec, [facility] [place] [facility] [address] [id number] [place] [address] Dec, [facility] [place] [facility] [address] [id number] [place] [address] Nov, [facility] [place] [facility] [address] [id number] [place] [address] Nov, [facility] [place] [facility] [address] [id number] [place] [address] Nov, [facility] [place] [facility] [address] [id number] [place] [address] 27 Oct, 2012 [facility] [address] [id number] [place] [address] 25 Oct, 2012 [facility] [place] [facility] [address] [id number] [place] [address] 20 Oct, 2012 [facility] [address] [id number] [place] [address] 19 Oct, 2012 [facility] [address] [id number] [place] [address] Oct, [facility] [address] [id number] [place] [address] 05 Oct, 2012 [facility] [address] [id number] [place] [address] Sep, [facility] [address] [id number] [place] [address] Sep, [facility] [address] [id number] [place] [address]843 Sep, [facility] [address] [id number] [place] [address] Sep, [facility] [address] [id number] [place] [address] Sep, [facility] [address] [id number] [place] [address] Aug, [facility] [place] [facility] [address] [id number] [place] [address] Aug, [facility] [place] [facility] [address] [id number] [place] [address] Aug, [facility] [place] [facility] [address] [id number] [place] [address] Aug, [facility] [place] [facility] [address] [id number] [place] [address] Aug, [facility] [place] [facility] [address] [id number] [place] [address] Aug, [facility] [place] [facility] [address] [id number] [place] [address] Jul, [facility] [place] [facility] [address] [id number] [place] [address] Jul, [facility] [place] [facility] [address] [id number] [place] [address] Jul, [facility] [place] [facility] [address] [id number] [place] [address] Jul, [facility] [place] [facility] [address] [id number] [place] [address] 229[address] Jul, [facility] [place] [facility] [address] [id number] [place] [address] Jul, [facility] [place] [facility] [address] [id number] [place] [address] Jul, [facility] [place] [facility] [address] [id number] [place] [address] 15 Jul, 2012 [facility] [place] [facility] [address] [id number] [place] [address] 14 Jul, 2012 [facility] [place] [facility] [address] [id number] [address] Jul, [facility] [place] [facility] [address] [id number] [place] [address] Jul, [facility] [place] [facility] [address] [id number] [place] [address] Jul, [facility] [place] [facility] [address] [id number] [place] [address] Jul, [facility] [place] [facility] [address] [id number] [place] [address] Jul, [facility] [place] [facility] [address] [id number] [place] [address] 08 Jul, 2012 [facility] [place] [facility] [address] [id number] [place] [address] Jul, [facility] [place] [facility] [address] [id number] [place] [address] Jul, [facility] [address] [id number] [place] [address] Jul, [facility] [place] [facility] [address] [id number] [place] [address]- [address] Jul, [facility] [place] [facility] [address] [id number] [place] [address] 38[address] Jun, [facility] [place] [facility] [address] [id number] [place] [address] 279[address] Jun, [facility] [place] [facility] [address] [id number] [place] [address] May, [facility] [place] [facility] [address] [id number] [place] [address] 8765 Apr, [facility] [place] [facility] [address] [id number] [place] [address] Mar, [facility] [address] [facility] [id number] [place] [address] Feb, [facility] [place] [facility] [address] [id number] [place] [address]- [address]46 Feb, [facility] [place] [facility] [address] [id number] [place] [address] 2546 Feb, [facility] [place] [facility] [address] [id number] [place] [address] January, [facility] [place] [facility] [address] [id number] [place] [address]- 2546 January, [facility] [place] [facility] [address] [id number] [place] [address] Dec, [facility] [place] [facility] [address] [id number] [place] [address] 74[address] Dec, [facility] [place] [facility] [address] [id number] [place] [address]- 4730 08 Nov, 2011 [facility] [place] [facility] [address] [id number] [place] [address] Aug, [facility] [place] [facility] [address] [id number] [place] [address]- 7[address] Jul, [facility] [place] [facility] [address] [id number] [place] [address] 69[address] Jul, [facility] [place] [facility] [address] [id number] [place] [address]- [address]186 16 Jul, 2011 [facility] [place] [facility] [address] [id number] [place] [address]- 3840 12 Jun, 2011 [facility] [place] [facility] [address] [id number] [place] [address]- 5779 12 Jun, 2011 [facility] [place] [facility] [address] [id number] [place] [address]- [address]262 14 May, 2011 [facility] [place] [facility] [address] [id number] [place] [address]- 0972 10 Apr, 2011 [facility] [place] [facility] [address] [id number] [place] [address]- 7716 January, [facility] [place] [facility] [address] [id number] [place] [address]- 5266 13 Dec, 2010 [facility] [place] [facility] [address] [id number] [place] [address]- [address]70 16 Nov, 2010 [facility] [place] [facility] [address] [id number] [place] [address]- 7349 10 Oct, 2010 [facility] [place] [facility] [address] [id number] [place] [address]- [address] 14 Jun, 2010 [facility] [place] [facility] [address] [id number], [place] [address] 14 Jun, 2010 [facility] [address] [facility] [id number] [address] Oct, [facility] [address] [facility] [id number], [place] [address] Aug, [facility] [address] [facility] [id number] [address] Jul, [place] [address] [facility] [id number], [place] [address] Dec, IMMUNIZATIONS No Known Immunizations SOCIAL HISTORY Never Assessed REASON FOR VISIT Sore throat and cough for 2 weeks. denies any fever. artemio pt is 18 5/7 weeks gestation PLAN OF CARE Activity Details Follow Up prn Reason: VITAL SIGNS Height 61 in 2018-02-26 Weight 182.2 lbs 2018-02-26 Temperature 98.4 degrees Fahrenheit 2018-02-26 Heart Rate 80 bpm 2018-02-26 Respiratory Rate 20 2018-02-26 BMI 34.42 kg/m2 2018-02-26 Blood pressure systolic 122 mmHg 2018-02-26 Blood pressure diastolic 72 mmHg 2018-02-26 MEDICATIONS Medication Instructions Dosage Frequency Start Date End Date Duration Status Claritin 10 MG Orally Once a day 1 tablet 24h Feb, Mar, 30 day(s) Active Benadryl Active Unisom Not-Taking Zoloft 50 mg Orally Once a day 1 tablet 24h Sep, 30 days Active Flonase 50 MCG/ACT Nasally Once a day 1 spray in each nostril 24h Feb, 30 day(s) Active Cetirizine HCl 10 MG Orally Once a day 1 tablet 24h Active RESULTS No Results PROCEDURES No Known [...]
--- OUTSIDE RECORDS SUMMARY | 2018-12-13 17:48 | XMS REPORT ---
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 Name Role Phone ZAYRA GOMEZ Unavailable PROBLEMS Type Condition ICD9-CM Code YTB35-GT Code Onset Dates Condition Status SNOMED Code Problem Depression, unspecified depression type F32.9 Active 51230765 Problem Seasonal allergic rhinitis, unspecified allergic rhinitis trigger J30.2 Active 157814541 Problem Irregular periods/menstrual cycles N92.6 Active 92854066 Problem Seasonal allergies J30.2 Active 091487762 Problem Missed period N92.6 Active 70791769 Problem Other headache syndrome G44.89 Active 968190800 Problem Anemia, O90.81 Active 115400829 Problem DANIELLA (generalized anxiety disorder) F41.1 Active 47634604 Problem Dysthymic disorder F34.1 Active 81589534 ALLERGIES No Information ENCOUNTERS Encounter Location Date Diagnosis [facility] [address] [address] Mar, Pain of left calf M79.662 and Muscle spasm of left calf M62.831 [place] [id number] [place] [address] 11604- 0521 Mar, care in second trimester Z34.92 [facility] [id number] [place] [address] 20784- 2252 Mar, Bilateral impacted cerumen H61.23 [facility] [address] 41221- 7661 Feb, [facility] [id number] [place] [address]55 -[address]102 Feb, [facility] [address] 82681- 2161 20 Feb, 2018 Normal in multigravida Z34.80 [facility] [id number] [place] [address] 19636- 1395 13 Feb, 2018 Painful urination R30.9 and Encounter for supervision of normal in second trimester Z34.92 [facility] [id number] [place] [address] 02350 -0710 07 Feb, [address] [facility] [address] 94262- 8867 Feb, [place] [address] 75429- 0512 Feb, [facility] [address] 89[address] January, Seasonal allergic rhinitis, unspecified trigger J30.2 [facility] [address] 53824 -4900 January, [facility] [address] 89750 -6363 January, Viral gastroenteritis A08.4 [place] [address] 19989- 8739 January, [facility] [id number] [place] [address] 76221- 2482 January, care in first trimester Z34.91 [facility] [id number] [place] [address] 07188- 6332 January, [facility] [id number] [place] [address] 04770 -1727 January, Left ankle pain, unspecified chronicity M25.572 [facility] [id number] [place] [address] 83915- 4581 January, [facility] [id number] [place] [address] 61016- 9488 January, Dysthymic disorder F34.1 and DANIELLA (generalized anxiety disorder) F41.1 [facility] [id number] [place] [address] 00049 -2240 January, Impacted cerumen of both ears H61.23 [facility] [id number] [place] [address] 71957- 4480 Dec, [facility] [address] 08511- 5192 Dec, in multigravida Z34.80 [place] [address] 08598- 2124 Dec, DANIELLA (generalized anxiety disorder) F41.1 and Dysthymic disorder F34.1 [facility] [id number] [place] [address] 29513- 4076 Dec, [facility] [address] 26481- 6423 Nov, [place] [id number] [place] [address] 38383- 4120 Nov, [place] [address] 65588- 2322 Nov, Painful urination R30.9 ; Vaginal yeast infection B37.3 and Early stage of Z34.90 [place] [id number] [place] [address] 09841- 1567 Nov, in multigravida Z34.80 [place] [id number] [place] [address] 19508- 2741 Nov, Dysfunction of right eustachian tube H69.81 and Bilateral impacted cerumen H61.23 [facility] [id number] [place] [address] 45271- 9594 Nov, [facility] [address] 81328- 1289 Nov, [facility] [id number] [place] [address] 76871- 7237 Nov, [facility] [id number] [place] [address] 54607 -4827 Nov, Missed period N92.6 [place] [id number] [place] [address] 53591- 8121 Sep, DANIELLA (generalized anxiety disorder) F41.1 and Dysthymic disorder F34.1 [facility] [id number] [place] [address] 95340 -7360 Aug, Acute nasopharyngitis J00 [place] [address] 70927- 2928 Jul, Irregular periods/menstrual cycles N92.6 [place] [address] 84030- 1531 Jul, Bilateral impacted cerumen H61.23 [place] [id number] [place] [address] 80289- 4981 Jul, DANIELLA (generalized anxiety disorder) F41.1 and Dysthymic disorder F34.1 [place] [id number] [place] [address] 04206- 5092 Jun, [place] [id number] [place] [address] 05186- 2424 Jun, Dysthymic disorder F34.1 [place] [id number] [place] [address] 83280- 0661 Jun, Anemia, O90.81 ; Lower abdominal pain R10.30 ; Allergic contact dermatitis due to adhesives L23.1 and Other headache syndrome G44.89 [place] [id number] [place] [address] 53181- 5135 Jun, 39 weeks gestation of Z3A.39 [place] [address] 40357- 4980 27 May, 2017 care in third trimester Z34.93 [facility] [id number] [place] [address] 93702 -7238 24 May, 2017 Acute seasonal allergic rhinitis, unspecified trigger J30.2 [place] [id number] [place] [address] 56991- 9536 20 May, 2017 Normal in multigravida Z34.80 [facility] [address] 91028 -1819 17 May, 2017 Urinary frequency R35.0 and Pain of round ligament N94.9 [place] [address] 86823- 6061 13 May, 2017 35 weeks gestation of Z3A.35 [place] [address] 88817- 2941 Apr, High risk sexual behavior Z72.51 and 33 weeks gestation of Z3A.33 [place] [address] 67959- 5835 Apr, care in third trimester Z34.93 [facility] [id number] [place] [address] 10180 -3760 Apr, Bilateral impacted cerumen H61.23 [place] [id number] [place] [address] 03705- 9979 Apr, 30 weeks gestation of Z3A.30 and Encounter for immunization Z23 [place] [id number] [place] [address] 29977- 1952 Mar, 28 weeks gestation of Z3A.28 [place] [address] 61855- 0138 Mar, [place] [id number] [place] [address] 09502- 5883 Mar, [place] [address] 32288- 9808 Mar, [place] [id number] [place] [address] 28186- 3576 12 Mar, 2017 26 weeks gestation of Z3A.26 [facility] [id number] [place] [address] 82075 -7018 03 Mar, 2017 Acute back pain M54.[address] 70614- 3575 28 Feb, 2017 24 weeks gestation of Z3A.24 [facility] [address] [place] [id number] [place] [address] 54628 -0596 27 Feb, 2017 Lower abdominal pain R10.30 [facility] [address] [place] [id number] [place] [address] 39385 -1696 25 Feb, 2017 Gastroenteritis and colitis, viral A08.[address] 06398- 7164 14 Feb, 2017 care in second trimester Z34.92 [place] [id number] [place] [address] 13586- 4889 07 Feb, 2017 [facility] [address] [place] [id number] [place] [address] 55147 -7026 04 Feb, 2017 Abscess L02.91 [facility] [place] [id number] [place] [address] 80158 -3814 Feb, Vaginal flavia B37.3 [place] [id number] [place] [address] 42287- 6720 January, 20 weeks gestation of Z3A.20 [place] [id number] [place] [address] 32069- 2847 January, [facility] [address] [place] [id number] [place] [address] 91395 -8489 January, Seasonal allergic rhinitis, unspecified allergic rhinitis trigger J30.2 [facility] [address] [place], [place] [address] [address] January, Dermatitis L30.9 and Bug bites, initial encounter W57.XXXA [address] 43375- 5468 January, Sore throat J02.9 and Seasonal allergic rhinitis, unspecified allergic rhinitis trigger J30.[address] 73933- 5886 January, 16 weeks gestation of Z3A.16 [place] [address] 46999- 0109 Dec, care in first trimester Z34.[address] 44143- 8504 Nov, care in first trimester Z34.91 and Normal in multigravida Z34.80 [facility] [address] 89075 -5103 Oct, Nausea and vomiting during O21.[address] 59380- 6866 Oct, [place] [address] 98003- 3835 Oct, [address] 11602- 3091 Oct, Encounter for test, result unknown Z32.[address] 12660- 3853 Sep, Irregular periods/menstrual cycles N92.6 ; Sore throat J02.9 ; Nausea R11.0 and Right ear impacted cerumen H61.21 [facility] [address] [place] [id number] [place] [address] 87782 -1067 Jul, Vaginal discharge N89.8 ; Other specified bacterial agents as the cause of diseases classified elsewhere B96.89 and Acute vaginitis N76.0 [place] [id number] [place] [address] 21147- 5791 10 Jun, 2016 Depression, unspecified depression type F32.9 [place] [id number] [place] [address] 37455- 6745 23 May, 2016 Vaginal candidiasis B37.3 [place] [address] 63428- 9953 20 May, 2016 Acute pharyngitis, unspecified etiology J02.9 [place] [id number] [place] [address] 90217- 0312 19 May, 2016 Depression, unspecified depression type F32.9 [place] [id number] [place] [address] 38449- 1095 12 May, 2016 Depression, unspecified depression type F32.9 [place] [id number] [place] [address] 01353- 1414 12 May, 2016 Dysthymic disorder F34.1 [facility] [id number] [place] [address] 96460 -3410 Apr, Acute suppurative otitis media of right ear without spontaneous rupture of tympanic membrane, recurrence not specified H66.001 [facility] [id number] [place] [address] 21750 -6439 Mar, Herpes zoster without complication B02.9 [facility] [id number] [place] [address] 37499 -0108 Dec, Allergic rhinitis J30.9 [facility] [id number] [place] [address] 82107 -6157 Dec, Lumbago M54.5 [facility] [id number] [place] [address] 75192 -1346 18 Oct, 2015 Dysuria R30.0 and Urinary tract infection N39.0 [facility] [id number] [place] [address] 83130 -4252 Sep, Acute nasopharyngitis J00 and Strep pharyngitis J02.0 [place] [id number] [place] [address] 73012- 8797 Jul, Upper respiratory tract infection, unspecified type J06.9 [place] [id number] [place] [address] 10460- 1436 Jun, Irritable bowel syndrome without diarrhea K58.9 [place] [id number] [place] [address] 79771- 6918 Jun, [place] [address] 65494- 7427 May, [place] [id number] [place] [address] 39839- 6019 May, [place] [address] 74622- 4314 May, Otitis externa of left ear 380.10 [place] [id number] [place] [address] 06836- 2514 May, Pain in joint, ankle and foot 719.47 [place] [id number] [place] [address] 96451- 9342 Apr, Pain in joint, ankle and foot 719.47 [place] [id number] [place] [address] 67306- 0902 Mar, Dysuria 788.1 and Incontinence in female 625.6 [place] [id number] [place] [address] 09899- 1849 Feb, Plantar fasciitis of right foot 728.71 ; Ankle weakness 719.67 and Ankle pain, chronic 719.47 [place] [id number] [place] [address] 77645- 5202 Feb, [place] [id number] [place] [address] 74047- 4777 Feb, Belching 787.3 and Chest wall pain 786.52 [facility] [address] [id number] [place] [address]- 5742 14 Dec, 2014 [facility] [address] [id number] [place] [address]- 5067 Dec, [facility] [address] [id number] [place] [address]- 7030 16 Nov, 2014 [facility] [address] [id number] [place] [address]- 6858 Nov, [facility] [address] [id number] [place] [address], [place] [address]- 9936 Sep, [facility] [address] [facility] [id number] [place] [address]- 4079 Sep, [facility] [address] [place] [id number] [place] [address], [place] [address]- 4046 Sep, [facility] [address] [facility] [id number] [place] [address]- 6618 Sep, [facility] [address] [place] [address] [id number] [place] [address]- 2189 Aug, [facility] [address] [facility] [id number] [place] [address]- 1312 Aug, [facility] [address] [place] [address] [id number] [place] [address]- 9213 Aug, [facility] [address] [facility] [id number], [place] [address]- 5097 Aug, [facility] [address] [facility] [id number] [place] 0238 Aug, [facility] [address] [facility] [id number] [place] 4082 Aug, [facility] [address] [facility] [id number] 3120 Aug, [facility] [place] [facility] [address] [id number] [place] [address]- 4633 Aug, [facility] [place] [facility] [address] [id number] [place] 0464 Aug, [facility] [place] [facility] [address] [id number] [place] [address]- 7175 Aug, [facility] [place] [facility] [address] [id number] [place] [address]- 1012 Aug, [facility] [place] [facility] [address] [id number] [place] [address]- 4926 Aug, [facility] [place] [facility] [address] [id number] [place] [address]- 4074 Aug, [facility] [place] [facility] [address] [id number] [place] [address]- 1463 Aug, [facility] [place] [facility] [address] [id number] [place] [address]- 0144 Jul, [facility] [place] [facility] [address] [id number] [place] [address]- 9950 Jul, [facility] [place] [facility] [address] [id number] [place] [address]- 7206 Jul, [facility] [place] [facility] [address] [id number] [place] [address]- 7034 Jul, [facility] [place] [facility] [address] [id number], [place] [address]- 1614 Jul, [facility] [place] [facility] [address] [id number] [place] [address]- 9194 Jul, [facility] [place] [facility] [address] [id number] [place] [address]- 3635 Jul, [facility] [place] [facility] [address] [id number] [place] 6911 Jun, [facility] [place] [facility] [address] [id number] [place] [address]- 5951 Jun, [facility] [place] [facility] [address] [id number] [place] [address]- 2977 Jun, [facility] [place] [facility] [address] [id number] [place] 1820 Jun, [facility] [place] [facility] [address] [id number] [place] [address]- 6010 Jun, [facility] [place] [facility] [address] [id number] [place] [address]- 7256 Jun, [facility] [place] [facility] [address] [id number] [place] [address]- 3431 Jun, [facility] [place] [facility] [address] [id number] [place] [address]- 1558 Jun, [facility] [place] [facility] [address] [id number] [place] [address]- 0425 Jun, [facility] [place] [facility] [address] [id number] [place] [address]- 7283 Jun, [facility] [place] [facility] [address] [id number] [place] [address]- 9906 Jun, [facility] [place] [facility] [address] [id number] [place] [address]- 4174 Jun, [facility] [place] [facility] [address] [id number], [place] [address]- 6481 Jun, [facility] [place] [facility] [address] [id number], [place] [address]- 0976 Jun, [facility] [place] [facility] [address] [id number] [place] [address]- 5211 May, [facility] [place] [facility] [address] [id number] [place] [address]- 3242 May, [facility] [place] [facility] [address] [id number] [place] [address]- 4340 May, [facility] [place] [facility] [address] [id number] [place] [address]- 4654 May, [facility] [place] [facility] [address] [id number] [place] [address]- 2228 May, [facility] [place] [facility] [address] [id number] [place] [address]- 7871 Apr, [facility] [place] [facility] [address] [id number] [place] [address]- 1942 Apr, [facility] [place] [facility] [address] [id number] [place] [address]- 8753 Apr, [facility] [place] [facility] [address] [id number] [place] [address]- 9774 Apr, [facility] [place] [facility] [address] [id number] [place] [address]- 4387 Mar, [facility] [place] [facility] [address] [id number] [place] [address]- 3252 Mar, [facility] [place] [facility] [address] [id number] [place] [address]- 8481 Mar, [facility] [place] [facility] [address] [id number] [place] [address]- 0392 Mar, [facility] [place] [facility] [address] [id number] [place] [address]- 2426 Mar, [facility] [place] [facility] [address] [id number] [place] [address]- 0202 Mar, [facility] [place] [facility] [address] [id number] [place] [address]- 6015 Mar, [facility] [place] [facility] [address] [id number] [place] [address]- 3082 Mar, [facility] [place] [facility] [address] [id number] [place] [address]- 0448 Feb, [facility] [place] [facility] [address] [id number] [place] 4084 Feb, [facility] [place] [facility] [address] [id number] [place] [address]- 3829 Feb, [facility] [place] [facility] [address] [id number] [place] [address]- 9534 Feb, [facility] [place] [facility] [address] [id number] [place] [address]- 8839 Feb, [facility] [place] [facility] [address] [id number] [place] [address]- 5135 Feb, [facility] [place] [facility] [address] [id number] [place] [address]- 6518 Feb, [facility] [place] [facility] [address] [id number] [place] [address]- 9127 Feb, [facility] [place] [facility] [address] [id number] [place] [address]- 0516 January, [facility] [place] [facility] [address] [id number] [place] [address]- 7886 January, [facility] [place] [facility] [address] [id number] [place] [address]- 7626 January, [facility] [place] [facility] [address] [id number] [place] [address]- 7682 January, [facility] [place] [facility] [address] [id number] [place] [address]- 2896 January, [facility] [place] [facility] [address] [id number] [place] [address] January, [facility] [place] [facility] [address] [id number] [place] [address] Dec, [facility] [place] [facility] [address] [id number] [place] [address] Dec, [facility] [place] [facility] [address] [id number] [place] [address] Dec, [facility] [place] [facility] [address] [id number] [place] [address] Dec, [facility] [address] [id number] [place] [address] Dec, [facility] [place] [facility] [address] [id number] [place] [address] Dec, [facility] [place] [facility] [address] [id number] [place] [address] Dec, [facility] [place] [facility] [address] [id number] [place] [address] Dec, [facility] [place] [facility] [address] [id number] [place] [address] Oct, [facility] [place] [facility] [address] [id number] [place] [address] Oct, [facility] [address] [id number] [place] [address] Aug, [facility] [place] [facility] [address] [id number] [place] [address] Aug, [facility] [place] [facility] [address] [id number] [place] [address] Jul, [facility] [place] [facility] [address] [id number] [place] [address] Jul, [facility] [place] [facility] [address] [id number] [place] [address] Mar, [facility] [place] [facility] [address] [id number] [place] [address] Mar, [facility] [place] [facility] [address] [id number] [place] [address] Mar, [facility] [place] [facility] [address] [id number] [place] [address] Feb, [facility] [place] [facility] [address] [id number] [place] [address] Feb, [facility] [place] [facility] [address] [id number] [place] [address] Feb, [facility] [address] [id number] [place] [address] January, [facility] [address] [id number] [place] [address] January, [facility] [address] [id number] [place] [address] January, [facility] [address] [id number] [place] [address] January, [facility] [address] [id number] [place] [address] January, [facility] [address] [id number] [place] [address] January, [facility] [address] [id number] [place] [address] January, [facility] [address] [id number] [place] [address] Dec, [facility] [address] [id number] [place] [address] Dec, [facility] [address] [id number] [place] [address] Dec, [facility] [address] [id number] [place] [address] Dec, [facility] [address] [id number] [place] [address] Nov, [facility] [place] [facility] [address] [id number] [place] [address] Nov, [facility] [place] [facility] [address] [id number] [place] [address] Nov, [facility] [address] [id number] [place] [address] Oct, [facility] [address] [id number] [place] [address]38 Oct, [facility] [address] [id number] [place] [address] Oct, [facility] [address] [id number] [place] [address] Oct, [facility] [address] [id number] [place] [address] Oct, [facility] [address] [id number] [place] [address] 05 Oct, 2012 [facility] [address] [id number] [place] [address] 30 Sep, 2012 [facility] [facility] [address] [id number] [place] [address] Sep, [facility] [address] [id number] [place] [address] Sep, [facility] [address] [id number] [place] [address] Sep, [facility] [address] [facility] [id number] [place] [address] Sep, [facility] [address] [id number] [place] [address] Aug, [facility] [address] [id number] [place] [address] Aug, [facility] [address] [id number] [place] [address] Aug, [facility] [address] [id number] [place] [address] Aug, [facility] [address] [id number] [place] [address] Aug, [facility] [place] [facility] [address] [id number] [place] [address] Aug, [facility] [place] [facility] [address] [id number] [place] [address] Jul, [facility] [place] [facility] [address] [id number] [place] [address] Jul, [facility] [place] [facility] [address] [id number] [place] [address] Jul, [facility] [place] [facility] [address] [id number] [place] [address] Jul, [facility] [place] [facility] [address] [id number] [place] [address] Jul, [facility] [place] [facility] [address] [id number] [place] [address] Jul, [facility] [place] [facility] [address] [id number] [place] [address] Jul, [facility] [place] [facility] [address] [id number] [place] [address] 15 Jul, 2012 [facility] [place] [facility] [address] [id number] [place] [address] 14 Jul, 2012 [facility] [place] [facility] [address] [id number] [place] [address] Jul, [facility] [place] [facility] [address] [id number] [place] [address] Jul, [facility] [place] [facility] [address] [id number] [place] [address] Jul, [facility] [place] [facility] [address] [id number] [place] [address] Jul, [facility] [place] [facility] [address] [id number] [place] [address]- [address] 08 Jul, 2012 [facility] [place] [facility] [address] [id number] [place] [address] Jul, [facility] [place] [facility] [address] [id number] [place] [address] 2546 08 Jul, 2012 [facility] [place] [facility] [address] [id number] [place] [address] Jul, [facility] [place] [facility] [address] [facility] [id number] [place] [address] Jul, [facility] [place] [facility] [address] [id number] [place] [address] Jul, [facility] [place] [facility] [address] [id number] [place] [address] 25[address] Jun, [facility] [place] [facility] [address] [id number] [place] [address] 2546 Jun, [facility] [place] [facility] [address] [facility] [id number] [place] [address] May, [facility] [place] [facility] [address] [id number], [place] [address] Apr, [facility] [place] [facility] [address] [id number], [place] [address] Mar, [facility] [place] [facility] [address] [facility] [id number], [place] [address] Feb, [facility] [place] [facility] [address] [facility] [id number], [place] [address] Feb, [facility] [place] [facility] [address] [id number], [place] [address] Feb, [facility] [place] [facility] [address] [id number] [place] [address] January, [facility] [place] [facility] [address] [facility] [id number], [place] [address] January, [facility] [place] [facility] [address] [facility] [id number], [place] [address] Dec, [facility] [place] [facility] [address] [id number] [place] [address] 25 Dec, 2011 [facility] [place] [facility] [address] [id number] [place] [address] 08 Nov, 2011 [facility] [place] [facility] [address] [id number] [place] [address]- [address] 12 Aug, 2011 [facility] [place] [facility] [address] [id number] [place] [address]- [address] 16 Jul, 2011 [facility] [place] [facility] [address] [id number] [place] [address]- [address]95 16 Jul, 2011 [facility] [place] [facility] [address] [id number] [place] [address]- [address] 16 Jul, 2011 [facility] [place] [facility] [address] [id number] [place] [address] 12 Jun, 2011 [facility] [place] [facility] [address] [id number] [place] [address] 12 Jun, 2011 [facility] [place] [facility] [address] [id number] [place] [address]- [address] 14 May, 2011 [facility] [place] [facility] [address] [id number] [place] [address] 10 Apr, 2011 [facility] [place] [facility] [address] [id number] [place] [address]- [address] January, [facility] [place] [facility] [address] [id number] [place] [address]- [address] 13 Dec, 2010 [facility] [place] [facility] [address] [id number] [place] [address]- 8027 16 Nov, 2010 [facility] [place] [facility] [address] [id number] [place] [address]- [address] 10 Oct, 2010 [facility] [place] [facility] [address] [id number] [place] [address]- [address] 14 Jun, 2010 [facility] [place] [facility] [address] [id number] [place] [address] Jun, [facility] [address] [facility] [id number] [address] Oct, [facility] [address] [id number] [address] Aug, [facility] [address] [id number], [place] [address] Jul, [facility] [address] [id number], [place] [address] Dec, IMMUNIZATIONS No Known Immunizations SOCIAL [...]
--- OUTSIDE RECORDS SUMMARY | 2018-12-13 17:49 | XMS REPORT ---
Author Author TYE HERZOG [facility] Address [address] [place] [address] Care Team Providers Care Venue Coordinator Name Role Phone TYE HERZOG Unavailable PROBLEMS Type Condition ICD9-CM Code NOL82-JP Code Onset Dates Condition Status SNOMED Code Problem Depression, unspecified depression type F32.9 Active 71749755 Problem Seasonal allergic rhinitis, unspecified allergic rhinitis trigger J30.2 Active 619614369 Problem Irregular periods/menstrual cycles N92.6 Active 29165273 Problem Seasonal allergies J30.2 Active 079115560 Problem Missed period N92.6 Active 33833940 Problem Other headache syndrome G44.89 Active 439732391 Problem Anemia, O90.81 Active 915584269 Problem DANIELLA (generalized anxiety disorder) F41.1 Active 79471166 Problem Dysthymic disorder F34.1 Active 03569287 ALLERGIES No Information ENCOUNTERS Encounter Location Date Diagnosis [facility] [address] [address]6 Mar, Pain of left calf M79.662 and Muscle spasm of left calf M62.831 [facility] [id number] [place] [address] 45076- 7573 Mar, care in second trimester Z34.92 [facility] [id number] [place] [address] 04613- 8428 Mar, Bilateral impacted cerumen H61.23 [facility] [address] 00470- 7516 Feb, [facility] [id number] [place] [address] 79007 -8563 Feb, [facility] [address] 29617- 1806 Feb, Normal in multigravida Z34.80 [facility] [id number] [place] [address] 67846- 0778 13 Feb, 2018 Painful urination R30.9 and Encounter for supervision of normal in second trimester Z34.92 [facility] [id number] [place] [address] 90296 -6127 07 Feb, 2018 Seasonal allergies J30.2 [facility] [address] 90208- 3050 Feb, [facility] [id number] [place] [address] 36910- 0498 Feb, [facility] [address] 75238 -0785 January, Seasonal allergic rhinitis, unspecified trigger J30.2 [facility] [address] 32736 -8303 January, [facility] [id number] [place] [address] 85329 -4735 January, Viral gastroenteritis A08.4 [place] [address] 72340- 2685 January, [facility] [id number] [place] [address] 14963- 0285 January, care in first trimester Z34.91 [facility] [id number] [place] [address] 93327- 0793 January, [facility] [id number] [place] [address] 84902 -0495 January, Left ankle pain, unspecified chronicity M25.572 [facility] [id number] [place] [address] 37778- 9309 January, [facility] [id number] [place] [address] 93919- 1552 January, Dysthymic disorder F34.1 and DANIELLA (generalized anxiety disorder) F41.1 [facility] [id number] [place] [address] 50090 -6953 January, Impacted cerumen of both ears H61.23 [facility] [id number] [place] [address] 68010- 0679 Dec, [facility] [address] 29249- 7711 Dec, in multigravida Z34.80 [place] [id number] [place] [address] 57197- 5969 Dec, DANIELLA (generalized anxiety disorder) F41.1 and Dysthymic disorder F34.1 [facility] [id number] [place] [address] 10902- 2578 Dec, [facility] [address] 45109- 3046 Nov, [place] [id number] [place] [address] 11776- 2935 Nov, [place] [id number] [place] [address] 35401- 1071 Nov, Painful urination R30.9 ; Vaginal yeast infection B37.3 and Early stage of Z34.90 [facility] [id number] [place] [address] 58289- 2917 Nov, in multigravida Z34.80 [place] [id number] [place] [address] 21485- 4254 Nov, Dysfunction of right eustachian tube H69.81 and Bilateral impacted cerumen H61.23 [facility] [id number] [place] [address] 79402- 8933 Nov, [place] [id number] [place] [address] 26828- 5868 Nov, [facility] [id number] [place] [address] 50710- 7560 Nov, [facility] [id number] [place] [address] 71956 -0769 Nov, Missed period N92.6 [facility] [id number] [place] [address] 67826- 5901 Sep, DANIELLA (generalized anxiety disorder) F41.1 and Dysthymic disorder F34.1 [facility] [id number] [place] [address] 58560 -0062 Aug, Acute nasopharyngitis J00 [place] [address] 77521- 5598 Jul, Irregular periods/menstrual cycles N92.6 [place] [address] 40265- 6008 Jul, Bilateral impacted cerumen H61.23 [place] [id number] [place] [address] 43933- 8512 Jul, DANIELLA (generalized anxiety disorder) F41.1 and Dysthymic disorder F34.1 [place] [id number] [place] [address] 79327- 5713 Jun, [place] [id number] [place] [address] 18004- 3368 Jun, Dysthymic disorder F34.1 [place] [id number] [place] [address] 87132- 8512 Jun, Anemia, O90.81 ; Lower abdominal pain R10.30 ; Allergic contact dermatitis due to adhesives L23.1 and Other headache syndrome G44.89 [place] [id number] [place] [address] 61745- 2999 Jun, 39 weeks gestation of Z3A.39 [place] [address] 44664- 2258 27 May, 2017 care in third trimester Z34.93 [facility] [id number] [place] [address] 72160 -9148 24 May, 2017 Acute seasonal allergic rhinitis, unspecified trigger J30.2 [place] [address] 72714- 1089 20 May, 2017 Normal in multigravida Z34.80 [facility] [address] 52431 -6608 17 May, 2017 Urinary frequency R35.0 and Pain of round ligament N94.9 [place] [address] 53320- 0405 May, 35 weeks gestation of Z3A.35 [place] [address] 38634- 0938 Apr, High risk sexual behavior Z72.51 and 33 weeks gestation of Z3A.33 [place] [address] 42662- 3798 Apr, care in third trimester Z34.93 [facility] [place] [address] 15388 -8112 Apr, Bilateral impacted cerumen H61.23 [place] [address] 27673- 6869 Apr, 30 weeks gestation of Z3A.30 and Encounter for immunization Z23 [place] [address] 09626- 4388 Mar, 28 weeks gestation of Z3A.28 [place] [address] 28943- 0140 Mar, [place] [address] 49962- 0438 Mar, [place] [address] 23852- 8851 Mar, [place] [id number] [place] [address] 73086- 6558 Mar, 26 weeks gestation of Z3A.26 [facility] [id number] [place] [address] 92254 -3050 03 Mar, 2017 Acute back pain M54.[address] 51695- 1467 28 Feb, 2017 24 weeks gestation of Z3A.24 [facility] [address] [place] [id number] [place] [address] 96450 -8973 27 Feb, 2017 Lower abdominal pain R10.30 [facility] [address] [place] [address] 26657 -9988 25 Feb, 2017 Gastroenteritis and colitis, viral A08.[address] 88258- 6751 14 Feb, 2017 care in second trimester Z34.92 [place] [id number] [place] [address] 12020- 8452 07 Feb, 2017 [facility] [address] [place] [id number] [place] [address] 84423 -3473 04 Feb, 2017 Abscess L02.91 [facility] [place] [id number] [place] [address] 75581 -6011 Feb, Vaginal flavia B37.3 [place] [id number] [place] [address] 68020- 9989 January, 20 weeks gestation of Z3A.[address] 93718- 1845 January, [facility] [address] [place] [id number] [place] [address] 70652 -0612 January, Seasonal allergic rhinitis, unspecified allergic rhinitis trigger J30.2 [facility] [address] [place] [address] [address]87 January, Dermatitis L30.9 and Bug bites, initial encounter W57.XXXA [place] [address] 90820- 4780 January, Sore throat J02.9 and Seasonal allergic rhinitis, unspecified allergic rhinitis trigger J30.2 [place] [address] 49999- 9319 January, 16 weeks gestation of Z3A.16 [place] [address] 18691- 0261 Dec, care in first trimester Z34.91 [place] [address] 94112- 3165 Nov, care in first trimester Z34.91 and Normal in multigravida Z34.80 [facility] [place] [address] 54108 -2257 Oct, Nausea and vomiting during O21.9 [place] [address] 37015- 7575 Oct, [place] [address] 85950- 4526 Oct, [place] [address] 95723- 7403 Oct, Encounter for test, result unknown Z32.00 [place] [address] 77341- 6750 Sep, Irregular periods/menstrual cycles N92.6 ; Sore throat J02.9 ; Nausea R11.0 and Right ear impacted cerumen H61.21 [facility] [address] [place] [id number] [place] [address] 39621 -6440 Jul, Vaginal discharge N89.8 ; Other specified bacterial agents as the cause of diseases classified elsewhere B96.89 and Acute vaginitis N76.0 [place] [id number] [place] [address] 54665- 4818 10 Jun, 2016 Depression, unspecified depression type F32.9 [place] [id number] [place] [address] 25332- 9982 23 May, 2016 Vaginal candidiasis B37.3 [place] [address] 69878- 2679 20 May, 2016 Acute pharyngitis, unspecified etiology J02.9 [place] [address] 80588- 0283 19 May, 2016 Depression, unspecified depression type F32.9 [place] [id number] [place] [address] 70764- 0704 12 May, 2016 Depression, unspecified depression type F32.9 [place] [address] 60088- 4889 12 May, 2016 Dysthymic disorder F34.1 [facility] [id number] [place] [address] 64949 -5951 10 Apr, 2016 Acute suppurative otitis media of right ear without spontaneous rupture of tympanic membrane, recurrence not specified H66.001 [facility] [id number] [place] [address] 07667 -3495 Mar, Herpes zoster without complication B02.9 [facility] [id number] [place] [address] 67652 -8861 Dec, Allergic rhinitis J30.9 [facility] [id number] [place] [address] 48215 -1431 Dec, Lumbago M54.5 [facility] [id number] [place] [address] 37466 -9478 18 Oct, 2015 Dysuria R30.0 and Urinary tract infection N39.0 [facility] [address] 66010 -1466 Sep, Acute nasopharyngitis J00 and Strep pharyngitis J02.0 [place] [id number] [place] [address] 91637- 5171 Jul, Upper respiratory tract infection, unspecified type J06.9 [place] [id number] [place] [address] 48545- 8482 Jun, Irritable bowel syndrome without diarrhea K58.9 [place] [id number] [place] [address] 33790- 5026 Jun, [place] [id number] [place] [address] 27142- 6328 May, [place] [id number] [place] [address] 52683- 6183 May, [place] [address] 71344- 1475 May, Otitis externa of left ear 380.10 [place] [id number] [place] [address] 58799- 6249 May, Pain in joint, ankle and foot 719.47 [place] [id number] [place] [address] 39153- 4032 Apr, Pain in joint, ankle and foot 719.47 [place] [id number] [place] [address] 31842- 9092 Mar, Dysuria 788.1 and Incontinence in female 625.6 [place] [id number] [place] [address] 28414- 8415 30 Feb, 2015 Plantar fasciitis of right foot 728.71 ; Ankle weakness 719.67 and Ankle pain, chronic 719.47 [place] [id number] [place] [address] 11894- 4583 Feb, [address] 01332- 3741 Feb, Belching 787.3 and Chest wall pain 786.52 [facility] [address] [id number] [place] [address]- 9177 14 Dec, 2014 [facility] [address] [id number] [place] [address]- 2963 Dec, [facility] [address] [id number] [place] [address]- 6320 16 Nov, 2014 [facility] [address] [id number] [place] [address]- 5932 Nov, [facility] [address] [id number] [place] [address], [place] [address]- 5672 Sep, [facility] [address] [id number] [place] [address]- 6899 Sep, [facility] [address] [facility] [id number] [place] [address], [place] [address]- 8115 Sep, [facility] [address] [facility] [id number] [place] [address]- 4098 Sep, [facility] [address] [place] [id number] [place] [address]- 3745 Aug, [facility] [address] [facility] [id number] [place] [address]- 9221 Aug, [facility] [address] [facility] [id number] [place] [address]- 6915 Aug, [facility] [address] [id number] [place] [address]- 6410 Aug, [facility] [address] [id number] [place] 0853 Aug, [facility] [address] [facility] [id number] [place] 8248 Aug, [facility] [address] [facility] [id number] [place] [address]- 5130 Aug, [facility] [place] [facility] [address] [id number] [place] [address]- 4722 Aug, [facility] [place] [facility] [address] [id number] [place] [address]- 1079 Aug, [facility] [place] [facility] [address] [id number] [place] 3600 Aug, [facility] [place] [facility] [address] [id number] [place] [address]- 6057 Aug, [facility] [place] [facility] [address] [id number] [place] [address]- 2278 Aug, [facility] [place] [facility] [address] [id number] [place] [address]- 7802 Aug, [facility] [place] [facility] [address] [id number] [place] [address]- 4744 Aug, [facility] [place] [facility] [address] [id number] [place] [address]- 8953 Jul, [facility] [place] [facility] [address] [id number] [place] [address]- 0729 Jul, [facility] [place] [facility] [address] [id number] [place] [address]- 8453 Jul, [facility] [place] [facility] [address] [id number] [place] [address]- 2675 Jul, [facility] [place] [facility] [address] [id number] [place] [address]- 2754 Jul, [facility] [place] [facility] [address] [id number] [place] [address]- 4343 Jul, [facility] [place] [facility] [address] [id number] [place] [address]- 1712 Jul, [facility] [place] [facility] [address] [id number] [place] [address]- 4663 Jun, [facility] [place] [facility] [address] [id number] [place] [address]- 7266 Jun, [facility] [place] [facility] [address] [id number] [place] [address]- 8550 Jun, [facility] [place] [facility] [address] [id number] [place] [address]- 1068 Jun, [facility] [place] [facility] [address] [id number] [place] [address]- 0927 Jun, [facility] [place] [facility] [address] [id number] [place] 2753 Jun, [facility] [place] [facility] [address] [id number] [place] [address]- 9364 Jun, [facility] [place] [facility] [address] [id number] [place] [address]- 2441 Jun, [facility] [place] [facility] [address] [id number] [place] [address]- 2999 Jun, [facility] [place] [facility] [address] [id number] [place] [address]- 6133 Jun, [facility] [place] [facility] [address] [id number] [place] [address]- 7743 Jun, [facility] [place] [facility] [address] [id number] [place] [address]- 5900 Jun, [facility] [place] [facility] [address] [id number] [place] [address]- 0099 Jun, [facility] [place] [facility] [address] [id number] [place] [address]- 2365 Jun, [facility] [place] [facility] [address] [id number] [place] [address]- 2976 May, [facility] [place] [facility] [address] [id number] [place] [address]- 0473 May, [facility] [place] [facility] [address] [id number] [place] [address]- 9614 May, [facility] [place] [facility] [address] [id number] [place] [address]- 9939 May, [facility] [place] [facility] [address] [id number] [place] [address]- 6923 May, [facility] [place] [facility] [address] [id number] [place] [address]- 5533 Apr, [facility] [place] [facility] [address] [id number] [place] [address]- 1802 Apr, [facility] [place] [facility] [address] [id number] [place] [address]- 5534 Apr, [facility] [place] [facility] [address] [id number] [place] [address]- 0798 Apr, [facility] [place] [facility] [address] [id number] [place] [address]- 7666 Mar, [facility] [place] [facility] [address] [id number] [place] [address]- 7946 Mar, [facility] [place] [facility] [address] [id number] [place] [address]- 1366 Mar, [facility] [place] [facility] [address] [id number] [place] [address]- 5757 Mar, [facility] [place] [facility] [address] [id number] [place] [address]- 4321 Mar, [facility] [place] [facility] [address] [id number] [place] [address]- 0107 Mar, [facility] [place] [facility] [address] [id number] [place] [address]- 1137 Mar, [facility] [place] [facility] [address] [id number] [place] [address]- 5555 Mar, [facility] [place] [facility] [address] [id number] [place] [address]- 2396 Feb, [facility] [place] [facility] [address] [id number] [place] [address]- 8802 Feb, [facility] [place] [facility] [address] [id number] [place] [address]- 7542 Feb, [facility] [place] [facility] [address] [id number] [place] [address]- 7186 Feb, [facility] [place] [facility] [address] [id number] [place] [address]- 5211 Feb, [facility] [place] [facility] [address] [id number] [place] [address]- 6789 Feb, [facility] [place] [facility] [address] [id number] [place] [address]- 5701 Feb, [facility] [place] [facility] [address] [id number] [place] [address]- 4196 Feb, [facility] [place] [facility] [address] [id number] [place] [address]- 1003 January, [facility] [place] [facility] [address] [id number] [place] [address]- 6190 January, [facility] [place] [facility] [address] [id number] [place] [address]- 1982 January, [facility] [place] [facility] [address] [id number] [place] [address]- 0813 January, [facility] [place] [facility] [address] [id number] [place] [address] January, [facility] [place] [facility] [address] [id number] [place] [address] January, [facility] [place] [facility] [address] [id number] [place] [address] Dec, [facility] [place] [facility] [address] [id number] [place] [address] Dec, [facility] [place] [facility] [address] [id number] [place] [address] Dec, [facility] [place] [facility] [address] [id number] [place] [address] Dec, [facility] [address] [id number] [place] [address] Dec, [facility] [place] [facility] [address] [id number] [place] [address] Dec, [facility] [place] [facility] [address] [id number] [place] [address] Dec, [facility] [place] [facility] [address] [id number] [place] [address] Dec, [facility] [place] [facility] [address] [id number] [place] [address] Oct, [facility] [place] [facility] [address] [id number] [place] [address] Oct, [facility] [address] [id number] [place] [address] Aug, [facility] [place] [facility] [address] [id number] [place] [address] Aug, [facility] [place] [facility] [address] [id number] [place] [address] Jul, [facility] [place] [facility] [address] [id number] [place] [address] Jul, [facility] [place] [facility] [address] [id number] [place] [address] Mar, [facility] [place] [facility] [address] [id number] [place] [address] Mar, [facility] [place] [facility] [address] [id number] [place] [address] Mar, [facility] [place] [facility] [address] [id number] [place] [address] Feb, [facility] [place] [facility] [address] [id number] [place] [address] Feb, [facility] [place] [facility] [address] [id number] [place] [address] Feb, [facility] [address] [id number] [place] [address] January, [facility] [address] [id number] [place] [address] January, [facility] [address] [id number] [place] [address] January, [facility] [address] [id number] [place] [address] January, [facility] [address] [id number] [place] [address] January, [facility] [address] [id number] [place] [address] January, [facility] [address] [id number] [place] [address] January, [facility] [address] [id number] [place] [address] Dec, [facility] [address] [id number] [place] [address] Dec, [facility] [address] [id number] [place] [address] Dec, [facility] [address] [id number] [place] [address] Dec, [facility] [address] [id number] [place] [address] Nov, [facility] [place] [facility] [address] [id number] [place] [address] Nov, [facility] [place] [facility] [address] [id number] [place] [address] Nov, [facility] [place] [facility] [address] [id number] [place] [address] Oct, [facility] [address] [id number] [place] [address] Oct, [facility] [address] [id number] [place] [address] Oct, [facility] [address] [facility] [id number] [place] [address] Oct, [facility] [address] [id number] [place] [address] Oct, [facility] [address] [id number] [place] [address] 05 Oct, 2012 [facility] [address] [facility] [id number] [place] [address] Sep, [facility] [address] [facility] [id number] [place] [address] Sep, [facility] [address] [facility] [id number] [place] [address] Sep, [facility] [address] [facility] [id number] [place] [address] Sep, [facility] [address] [facility] [id number] [place] [address] Sep, [facility] [address] [facility] [id number] [place] [address] Aug, [facility] [address] [id number] [place] [address] Aug, [facility] [place] [facility] [address] [id number] [place] [address] Aug, [facility] [place] [facility] [address] [facility] [id number] [place] [address] Aug, [facility] [place] [facility] [address] [facility] [id number] [place] [address] Aug, [facility] [place] [facility] [address] [id number] [place] [address] Aug, [facility] [place] [facility] [address] [id number] [place] [address] Jul, [facility] [place] [facility] [address] [id number] [place] [address] Jul, [facility] [place] [facility] [address] [id number] [place] [address] Jul, [facility] [place] [facility] [address] [id number] [place] [address] Jul, [facility] [place] [facility] [address] [id number] [place] [address] Jul, [facility] [place] [facility] [address] [id number] [place] [address] Jul, [facility] [place] [facility] [address] [id number] [place] [address] Jul, [facility] [place] [facility] [address] [id number] [place] [address] 15 Jul, 2012 [facility] [place] [facility] [address] [id number] [place] [address] 14 Jul, 2012 [facility] [place] [facility] [address] [id number] [place] [address] Jul, [facility] [place] [facility] [address] [id number] [place] [address] Jul, [facility] [place] [facility] [address] [id number] [place] [address] 4[address] Jul, [facility] [place] [facility] [address] [id number] [place] [address] 230[address] Jul, [facility] [place] [facility] [address] [id number] [place] [address] Jul, [facility] [place] [facility] [address] [id number] [place] [address] Jul, [facility] [place] [facility] [address] [id number] [place] [address] 08 Jul, 2012 [facility] [place] [facility] [address] [id number] [place] [address] 48[address] Jul, [facility] [place] [facility] [address] [id number] [place] [address]6 Jul, [facility] [place] [facility] [address] [id number] [place] [address] Jul, [facility] [place] [facility] [address] [id number] [place] [address] Jun, [facility] [place] [facility] [address] [id number] [place] [address] 42[address] Jun, [facility] [place] [facility] [address] [id number] [place] [address] May, [facility] [place] [facility] [address] [id number] [place] [address] Apr, [facility] [place] [facility] [address] [id number] [place] [address] Mar, [facility] [place] [facility] [address] [id number] [place] [address] Feb, [facility] [place] [facility] [address] [id number] [place] [address] Feb, [facility] [place] [facility] [address] [id number] [place] [address] Feb, [facility] [place] [facility] [address] [id number] [place] [address] January, [facility] [place] [facility] [address] [id number] [place] [address] January, [facility] [place] [facility] [address] [facility] [id number] [place] [address] 3935 Dec, [facility] [place] [facility] [address] [id number] [place] [address]- 14[address] 25 Dec, 2011 [facility] [place] [facility] [address] [id number] [place] [address] 08 Nov, 2011 [facility] [place] [facility] [address] [id number] [place] [address] 12 Aug, 2011 [facility] [place] [facility] [address] [id number] [place] [address]- 8547 16 Jul, 2011 [facility] [place] [facility] [address] [id number] [place] [address] 8[address] 16 Jul, 2011 [facility] [place] [facility] [address] [id number] [place] [address]- 96[address] 16 Jul, 2011 [facility] [place] [facility] [address] [id number] [place] [address]- 0744 12 Jun, 2011 [facility] [place] [facility] [address] [id number] [place] [address]- [address] 12 Jun, 2011 [facility] [place] [facility] [address] [id number] [place] [address]- 2474 14 May, 2011 [facility] [place] [facility] [address] [id number] [place] [address]- 4911 10 Apr, 2011 [facility] [place] [facility] [address] [id number] [place] [address]- 1813 January, [facility] [place] [facility] [address] [id number] [place] [address]- 3350 13 Dec, 2010 [facility] [place] [facility] [address] [id number] [place] [address]- 2622 16 Nov, 2010 [facility] [place] [facility] [address] [id number] [place] [address]- 9257 10 Oct, 2010 [facility] [place] [facility] [address] [id number] [place] [address]- 9238 14 Jun, 2010 [facility] [place] [facility] [address] [id number] [place] [address] 14 Jun, 2010 [facility] [address] [facility] [id number] [place] [address] Oct, [facility] [address] [facility] [id number] [place] [address] Aug, [facility] [address] [facility] [id number] [place] [address] Jul, [facility] [address] [id number] [place] [address] Dec, IMMUNIZATIONS No Known Immunizations SOCIAL HISTORY Never Assessed REASON FOR VISIT sore throat PLAN OF CARE VITAL SIGNS MEDICATIONS No [...]
--- OUTSIDE RECORDS SUMMARY | 2018-12-13 17:50 | XMS REPORT ---
Author Author MILTON MORA [facility] [address] Address [address] [place] [address] Care Team Providers Care Architectural Technologist Name Role Phone MILTON MORA Unavailable PROBLEMS Type Condition ICD9-CM Code [id number] Code Onset Dates Condition Status SNOMED Code Problem Depression, unspecified depression type F32.9 Active 89417878 Problem Seasonal allergic rhinitis, unspecified allergic rhinitis trigger J30.2 Active 223599251 Problem Irregular periods/menstrual cycles N92.6 Active 22297420 Problem Seasonal allergies J30.2 Active 986633016 Problem Missed period N92.6 Active 21706713 Problem Other headache syndrome G44.89 Active 549291843 Problem Anemia, O90.81 Active 501075840 Problem DANIELLA (generalized anxiety disorder) F41.1 Active 85055358 Problem Dysthymic disorder F34.1 Active 19640646 ALLERGIES Substance Reaction Event Type Date Status Cefaclor Unknown Drug Allergy January, Active ENCOUNTERS Encounter Location Date Diagnosis [facility] [id number] [place] [address] 16272 -0127 Mar, Pain of left calf M79.662 and Muscle spasm of left calf M62.831 [facility] [id number] [place] [address] 72929- 0141 Mar, care in second trimester Z34.92 [facility] [id number] [place] [address] 69768- 9589 Mar, Bilateral impacted cerumen H61.23 [facility] [id number] [place] [address] 00726- 7211 Feb, [facility] [id number] [place] [address] 31445 -9343 Feb, [facility] [address] [place] [address] 4696 20 Feb, 2018 Normal in multigravida Z34.80 [facility] [id number] [place] [address] 48053- 3367 13 Feb, 2018 Painful urination R30.9 and Encounter for supervision of normal in second trimester Z34.92 [facility] [id number] [place] [address] 88425 -6485 07 Feb, 2018 Seasonal allergies J30.2 [facility] [address] 45307- 2295 Feb, [place] [address] 53058- 9226 Feb, [facility] [address] 09925 -4423 January, Seasonal allergic rhinitis, unspecified trigger J30.2 [facility] [id number] [place] [address] 73186 -0391 January, [facility] [address] 53580 -1055 January, Viral gastroenteritis A08.4 [facility] [id number] [place] [address] 17542- 2807 January, [place] [id number] [place] [address] 17258- 3506 January, care in first trimester Z34.91 [facility] [id number] [place] [address] 77354- 0618 January, [facility] [address] 42690 -6048 January, Left ankle pain, unspecified chronicity M25.572 [facility] [id number] [place] [address] 58864- 1379 January, [facility] [address] [place] [address]- 2246 January, Dysthymic disorder F34.1 and DANIELLA (generalized anxiety disorder) F41.1 [facility] [address] 04722 -9457 January, Impacted cerumen of both ears H61.23 [facility] [address] 95690- 3515 Dec, [facility] [address] 82584- 0032 Dec, in multigravida Z34.80 [place] [address] 79110- 3210 Dec, DANIELLA (generalized anxiety disorder) F41.1 and Dysthymic disorder F34.1 [place] [address] 20436- 5989 Dec, [facility] [address] 47189- 4389 Nov, [place] [address] 95322- 7838 Nov, [place] [address] 98926- 6290 Nov, Painful urination R30.9 ; Vaginal yeast infection B37.3 and Early stage of Z34.90 [facility] [id number] [place] [address] 94300- 8683 Nov, in multigravida Z34.80 [place] [id number] [place] [address] 69416- 3946 Nov, Dysfunction of right eustachian tube H69.81 and Bilateral impacted cerumen H61.23 [facility] [id number] [place] [address] 22174- 7379 Nov, [facility] [address] [place] [address]- 2806 Nov, [facility] [id number] [place] [address] 91901- 5789 Nov, [facility] [id number] [place] [address] 68716 -0507 Nov, Missed period N92.6 [place] [id number] 00874- 5925 Sep, DANIELLA (generalized anxiety disorder) F41.1 and Dysthymic disorder F34.1 [facility] [id number] [place] [address] 04627 -7379 Aug, Acute nasopharyngitis J00 [place] [id number] [place] [address] 63129- 3441 Jul, Irregular periods/menstrual cycles N92.6 [place] [address] 66496- 0116 Jul, Bilateral impacted cerumen H61.23 [place] [address] 35318- 3236 Jul, DANIELLA (generalized anxiety disorder) F41.1 and Dysthymic disorder F34.1 [place] [id number] [place] [address] 09422- 2329 Jun, [place] [address] 09708- 4219 Jun, Dysthymic disorder F34.1 [place] [id number] [place] [address] 07091- 7431 Jun, Anemia, O90.81 ; Lower abdominal pain R10.30 ; Allergic contact dermatitis due to adhesives L23.1 and Other headache syndrome G44.89 [place] [id number] [place] [address] 12305- 8092 Jun, 39 weeks gestation of Z3A.39 [place] [address] 80549- 8875 27 May, 2017 care in third trimester Z34.93 [facility] [place] [address] 89965 -4421 24 May, 2017 Acute seasonal allergic rhinitis, unspecified trigger J30.2 [place] [address] 33052- 8677 20 May, 2017 Normal in multigravida Z34.80 [facility] [place] [address] 51276 -8292 17 May, 2017 Urinary frequency R35.0 and Pain of round ligament N94.9 [place] [address] 42932- 1769 13 May, 2017 35 weeks gestation of Z3A.[address] 45404- 6448 Apr, High risk sexual behavior Z72.51 and 33 weeks gestation of Z3A.[address] 00033- 2078 Apr, care in third trimester Z34.93 [facility] [place] [address] 63223 -9469 Apr, Bilateral impacted cerumen H61.[address] 19066- 8376 Apr, 30 weeks gestation of Z3A.30 and Encounter for immunization Z23 [address] 92094- 9326 Mar, 28 weeks gestation of Z3A.28 [place] [address] 99444- 9614 Mar, [place] [address] 65288- 0396 Mar, [place] [id number] [place] [address] 92080- 9143 13 Mar, 2017 [place] [id number] [place] [address] 85297- 2401 Mar, 26 weeks gestation of Z3A.26 [facility] [id number] [place] [address] 47756 -3334 03 Mar, 2017 Acute back pain M54.9 [place] [address] 03157- 0704 Feb, 24 weeks gestation of Z3A.24 [facility] [address] [place] [address] 45861 -4796 27 Feb, 2017 Lower abdominal pain R10.30 [facility] [address] 79396 -7450 Feb, Gastroenteritis and colitis, viral A08.4 [place] [address] 22239- 9335 14 Feb, 2017 care in second trimester Z34.92 [place] [address] 75880- 7661 07 Feb, 2017 [facility] [id number] [place] [address] 71291 -9136 04 Feb, 2017 Abscess L02.91 [facility] [address] [place] [address] 51282 -6267 Feb, Vaginal flavia B37.3 [place] [id number] [place] [address] 32978- 4097 January, 20 weeks gestation of Z3A.20 [place] [address] 57966- 9964 January, [facility] [id number] [place] [address] 69216 -5671 January, Seasonal allergic rhinitis, unspecified allergic rhinitis trigger J30.2 [facility] [place] [id number] [place] [address] 69753 -5249 January, Dermatitis L30.9 and Bug bites, initial encounter W57.XXXA [address] 50474- 0388 January, Sore throat J02.9 and Seasonal allergic rhinitis, unspecified allergic rhinitis trigger J30.[address] 16410- 8052 January, 16 weeks gestation of Z3A.[address] 38001- 5204 Dec, care in first trimester Z34.[address] 89944- 1071 Nov, care in first trimester Z34.91 and Normal in multigravida Z34.80 [facility] IN [address] 60580 -0896 Oct, Nausea and vomiting during O21.[address] 76863- 0097 Oct, [address] 46570- 8736 Oct, [address] 52440- 0698 Oct, Encounter for test, result unknown Z32.[address] 10178- 1973 Sep, Irregular periods/menstrual cycles N92.6 ; Sore throat J02.9 ; Nausea R11.0 and Right ear impacted cerumen H61.21 [facility] [place] [id number] [place] [address] 46637 -2781 Jul, Vaginal discharge N89.8 ; Other specified bacterial agents as the cause of diseases classified elsewhere B96.89 and Acute vaginitis N76.0 [place] [id number] [place] [address] 60446- 4251 10 Jun, 2016 Depression, unspecified depression type F32.9 [place] [id number] [place] [address] 00832- 0608 23 May, 2016 Vaginal candidiasis B37.3 [place] [address] 77991- 8688 20 May, 2016 Acute pharyngitis, unspecified etiology J02.9 [place] [address] 194719- 0090 19 May, 2016 Depression, unspecified depression type F32.9 [place] [id number] [place] [address] 93211- 8762 12 May, 2016 Depression, unspecified depression type F32.9 [place] [address] 59026- 3745 12 May, 2016 Dysthymic disorder F34.1 [facility] [address] 85819 -4921 Apr, Acute suppurative otitis media of right ear without spontaneous rupture of tympanic membrane, recurrence not specified H66.001 [facility] [place] [id number] [place] [address] 66643 -1027 Mar, Herpes zoster without complication B02.9 [facility] [place] [id number] [place] [address] 08731 -8603 Dec, Allergic rhinitis J30.9 [facility] [address] 59850 -5413 03 Dec, 2015 Lumbago M54.5 [facility] [id number] [place] [address] 57386 -7161 18 Oct, 2015 Dysuria R30.0 and Urinary tract infection N39.0 [facility] [place] [id number] [place] [address] 83795 -9203 Sep, Acute nasopharyngitis J00 and Strep pharyngitis J02.0 [facility] [id number] [place] [address] 47646- 5003 Jul, Upper respiratory tract infection, unspecified type J06.9 [place] [address] 59029- 4872 Jun, Irritable bowel syndrome without diarrhea K58.9 [place] [id number] [place] [address] 99251- 6854 Jun, [place] [address] 28052- 7322 May, [place] [address] 52671- 2208 May, [place] [address] 58577- 6954 May, Otitis externa of left ear 380.10 [place] [address] 47086- 4584 May, Pain in joint, ankle and foot 719.47 [place] [id number] [place] [address] 41055- 1001 Apr, Pain in joint, ankle and foot 719.47 [place] [address] 02871- 5111 Mar, Dysuria 788.1 and Incontinence in female 625.[address] 12147- 5429 30 Feb, 2015 Plantar fasciitis of right foot 728.71 ; Ankle weakness 719.67 and Ankle pain, chronic 719.47 [place] [id number] [place] [address] 69873- 0162 Feb, [place] [address] [place] [address]- 8678 Feb, Belching 787.3 and Chest wall pain 786.52 [facility] [id number] [place] [address], [place] [address]- 0821 14 Dec, 2014 [facility] [address] [id number] [place] [address]- 6080 Dec, [facility] [address] [id number] [place] [address], [place] [address]- 2280 Nov, [facility] [address] [id number] [place] [address], [place] [address]- 1150 Nov, [facility] [address] [id number] [place] [address], [place] [address]- 5353 Sep, [facility] [id number] [place] [address], [place] [address]- 4443 Sep, [facility] [id number] [place] [address], [place] [address]- 2819 Sep, [facility] [address] [id number] [place] [address]- 5961 Sep, [facility] [address] [address]- 4739 Aug, [facility] [address] [place] [address]- 9763 Aug, [facility] [address] [id number], [place] [address]- 4670 Aug, [facility] [address] [id number] [place] [address]- 1321 Aug, [facility] [address] [facility] [id number] [place] [address]- 8365 Aug, [facility] [address] [facility] [id number], [place] [address]- 7728 Aug, [facility] [address], [place] [address]- 3753 Aug, [facility] [place] [facility] [address] [id number] [place] [address]- 5066 Aug, [facility] [place] [facility] [address] [id number] [place] 7667 Aug, [facility] [place] [facility] [address] [id number] [place] [address]- 2468 Aug, [facility] [place] [facility] [address] [id number] [place] [address]- 2109 Aug, [facility] [place] [facility] [address] [id number] [place] [address]- 9865 Aug, [facility] [place] [facility] [address] [id number] [place] [address]- 5427 Aug, [facility] [place] [facility] [address] [id number] [place] [address]- 7168 Aug, [facility] [place] [facility] [address] [id number] [place] [address]- 0485 Jul, [facility] [place] [facility] [address] [id number] [place] [address]- 8988 Jul, [facility] [place] [facility] [address] [id number] [place] [address]- 6871 Jul, [facility] [place] [facility] [address] [id number], [place] [address]- 0171 Jul, [facility] [place] [facility] [address] [id number], [place] [address]- 5554 Jul, [facility] [place] [facility] [address] [id number], [place] [address]- 4800 Jul, [facility] [place] [facility] [address] [id number], [place] [address]- 2434 Jul, [facility] [place] [facility] [address] [id number] [place] [address]- 1266 Jun, [facility] [place] [facility] [address] [id number] [place] [address]- 2117 30 Jun, 2013 [facility] [place] [facility] [address] [id number] [place] [address]- 8067 Jun, 2013 [facility] [place] [facility] [address] [id number] [place] [address]- 3934 Jun, 2013 [facility] [place] [facility] [address] [id number] [place] 2952 Jun, 2013 [facility] [place] [facility] [address] [id number] [place] [address]- 8618 Jun, 2013 [facility] [place] [facility] [address] [id number] [place] [address]- 7867 Jun, [facility] [place] [facility] [address] [id number] [place] [address]- 7322 Jun, 2013 [facility] [place] [facility] [address] [id number] [place] [address]- 3075 Jun, 2013 [facility] [place] [facility] [address] [id number] [place] [address]- 1699 Jun, [facility] [place] [facility] [address] [id number] [place] [address]- 9750 Jun, [facility] [place] [facility] [address] [id number] [place] [address]- 0870 Jun, [facility] [place] [facility] [address] [id number] [place] [address]- 4962 Jun, [facility] [place] [facility] [address] [id number] [place] [address]- 7281 Jun, [facility] [place] [facility] [address] [id number] [place] [address]- 5400 May, [facility] [place] [facility] [address] [id number] [place] [address]- 7246 May, [facility] [place] [facility] [address] [id number] [place] 9743 May, [facility] [place] [facility] [address] [id number] [place] [address]- 1704 May, [facility] [place] [facility] [address] [id number] [place] [address]- 9661 May, [facility] [place] [facility] [address] [id number] [place] [address]- 4383 Apr, [facility] [place] [facility] [address] [id number] [place] [address]- 2142 Apr, [facility] [place] [facility] [address] [id number] [place] [address]- 7343 Apr, [facility] [place] [facility] [address] [id number] [place] [address]- 2605 Apr, [facility] [place] [facility] [address] [id number] [place] [address]- 9963 Mar, [facility] [place] [facility] [address] [id number] [place] [address]- 5891 Mar, [facility] [place] [facility] [address] [id number] [place] [address]- 1702 Mar, [facility] [place] [facility] [address] [id number] [place] [address]- 9316 Mar, [facility] [place] [facility] [address] [id number] [place] [address]- 1443 Mar, [facility] [place] [facility] [address] [id number] [place] [address]- 2690 Mar, [facility] [place] [facility] [address] [id number] [place] [address]- 7576 Mar, [facility] [place] [facility] [address] [id number] [place] [address]- 4010 Mar, [facility] [place] [facility] [address] [id number] [place] [address]- 8463 Feb, [facility] [place] [facility] [address] [id number] [place] [address]- 4368 Feb, [facility] [place] [facility] [address] [id number] [place] [address]- 1358 Feb, [facility] [place] [facility] [address] [id number] [place] [address]- 8459 Feb, [facility] [place] [facility] [address] [id number] [place] [address]- 6543 Feb, [facility] [place] [facility] [address] [id number] [place] [address]- 0525 Feb, [facility] [place] [facility] [address] [id number] [place] [address]- 3576 Feb, [facility] [place] [facility] [address] [id number] [place] [address]- 8719 Feb, [facility] [place] [facility] [address] [id number] [place] [address]- 4435 January, [facility] [place] [facility] [address] [id number] [place] [address]- 3817 January, [facility] [place] [facility] [address] [id number] [place] [address]- 8133 January, [facility] [place] [facility] [address] [id number] [place] [address]- 9564 January, [facility] [place] [facility] [address] [id number] [place] [address]- 0510 January, [facility] [place] [facility] [address] [id number] [place] [address]- 4958 January, [facility] [place] [facility] [address] [id number] [place] [address]- 7358 Dec, [facility] [place] [facility] [address] [id number] [place] [address]- 4779 Dec, [facility] [place] [facility] [address] [id number] [place] [address]- 9516 Dec, [facility] [place] [facility] [address] [id number] [place] [address]- 4133 Dec, [facility] [place] [facility] [address] [id number] [place] [address] Dec, [facility] [place] [facility] [address] [id number] [place] [address] Dec, [facility] [place] [facility] [address] [id number] [place] [address] Dec, [facility] [place] [facility] [address] [id number] [place] [address] Dec, [facility] [place] [facility] [address] [id number] [place] [address] Oct, [facility] [place] [facility] [address] [id number] [place] [address] Oct, [facility] [place] [facility] [address] [id number] [place] [address] Aug, [facility] [place] [facility] [address] [id number] [place] [address] Aug, [facility] [place] [facility] [address] [id number] [place] [address] Jul, [facility] [place] [facility] [address] [id number] [place] [address] Jul, [facility] [place] [facility] [address] [id number] [place] [address] Mar, [facility] [place] [facility] [address] [id number] [place] [address] Mar, [facility] [place] [facility] [address] [id number] [place] [address] Mar, [facility] [place] [facility] [address] [id number] [place] [address] Feb, [facility] [place] [facility] [address] [id number] [place] [address] Feb, [facility] [address] [id number] [place] [address] Feb, [facility] [address] [id number] [place] [address] January, [facility] [address] [id number] [place] [address] January, [facility] [address] [id number] [place] [address] January, [facility] [address] [id number] [place] [address] January, [facility] [address] [id number] [place] [address] January, [facility] [address] [id number] [place] [address] January, [facility] [address] [id number] [place] [address] January, [facility] [address] [id number] [place] [address] Dec, [facility] [address] [id number] [place] [address]- [address] Dec, [facility] [address] [id number] [place] [address] Dec, [facility] [place] [facility] [address] [id number] [place] [address] Dec, [facility] [place] [facility] [address] [id number] [place] [address] Nov, [facility] [place] [facility] [address] [id number] [place] [address] Nov, [facility] [place] [facility] [address] [id number] [place] [address] Nov, [facility] [place] [facility] [address] [id number] [place] [address] 27 Oct, 2012 [facility] [address] [id number] [place] [address] 25 Oct, 2012 [facility] [place] [facility] [address] [id number] [place] [address] 20 Oct, 2012 [facility] [address] [id number] [place] [address] Oct, [facility] [address] [id number] [place] [address] Oct, [facility] [address] [id number] [place] [address] 05 Oct, 2012 [facility] [address] [id number] [place] [address] 30 Sep, 2012 [facility] [address] [id number] [place] [address] Sep, [facility] [address] [id number] [place] [address] Sep, [facility] [address] [facility] [facility] [id number] [place] [address] Sep, [facility] [address] [facility] [id number] [place] [address] Sep, [facility] [address] [id number] [place] [address] Aug, [facility] [address] [id number] [place] [address] Aug, [facility] [place] [facility] [address] [id number] [place] [address] Aug, [facility] [place] [facility] [address] [id number] [place] [address] 07 Aug, 2012 [facility] [place] [facility] [address] [id number] [place] [address] Aug, [facility] [place] [facility] [address] [id number] [place] [address] Aug, [facility] [place] [facility] [address] [id number] [place] [address] Jul, [facility] [place] [facility] [address] [facility] [id number] [place] [address] Jul, [facility] [place] [facility] [address] [id number] [place] [address] Jul, [facility] [place] [facility] [address] [id number] [place] [address] Jul, [facility] [place] [facility] [address] [id number] [place] [address] Jul, [facility] [place] [facility] [address] [id number] [place] [address] Jul, [facility] [place] [facility] [address] [id number], [place] [address] Jul, [facility] [place] [facility] [address] [id number], [place] [address] 15 Jul, 2012 [facility] [place] [facility] [address] [id number], [place] [address] 14 Jul, 2012 [facility] [place] [facility] [address] [id number], [place] [address] Jul, [facility] [place] [facility] [address] [id number], [place] [address] Jul, [facility] [place] [facility] [address] [id number], [place] [address] Jul, [facility] [place] [facility] [address] [id number], [place] [address] Jul, [facility] [place] [facility] [address] [facility] [id number], [place] [address] Jul, [facility] [place] [facility] [address] [id number] [place] [address] 08 Jul, 2012 [facility] [place] [facility] [address] [id number] [place] [address] 08 Jul, 2012 [facility] [place] [facility] [address] [id number] [place] [address] Jul, [facility] [place] [facility] [address] [id number] [place] [address] Jul, [facility] [place] [facility] [address] [id number] [place] [address] Jul, [facility] [place] [facility] [address] [id number] [place] [address]- [address] Jun, [facility] [place] [facility] [address] [id number] [place] [address] Jun, [facility] [place] [facility] [address] [id number] [place] [address] May, [facility] [place] [facility] [address] [id number] [place] [address] Apr, [facility] [place] [facility] [address] [id number] [place] [address] Mar, [facility] [place] [facility] [address] [facility] [id number] [place] [address] Feb, [facility] [place] [facility] [address] [id number] [place] [address] Feb, [facility] [place] [facility] [address] [id number] [place] [address] Feb, [facility] [place] [facility] [address] [id number] [place] [address] January, [facility] [place] [facility] [address] [id number] [place] [address] January, [facility] [place] [facility] [address] [id number] [place] [address] Dec, [facility] [place] [facility] [address] [id number] [place] [address] Dec, [facility] [place] [facility] [address] [id number] [place] [address] 08 Nov, 2011 [facility] [place] [facility] [address] [id number] [place] [address] Aug, [facility] [place] [facility] [address] [id number] [place] [address] Jul, [facility] [place] [facility] [address] [id number] [place] [address] Jul, [facility] [place] [facility] [address] [id number] [place] [address] Jul, [facility] [place] [facility] [address] [id number] [place] [address] Jun, [facility] [place] [facility] [address] [id number] [place] [address] Jun, [facility] [place] [facility] [address] [id number] [place] [address] 14 May, 2011 [facility] [place] [facility] [address] [id number] [place] [address] Apr, [facility] [place] [facility] [address] [id number] [place] [address] January, [facility] [place] [facility] [address] [id number] [place] [address]- [address] 13 Dec, 2010 [facility] [place] [facility] [address] [id number] [place] [address]- [address] 16 Nov, 2010 [facility] [place] [facility] [address] [id number] [place] [address] 10 Oct, 2010 [facility] [place] [facility] [address] [id number] [place] [address] 14 Jun, 2010 [facility] [place] [facility] [address] [id number], [place] [address] Jun, [facility] [address] [facility] [id number], [place] [address] Oct, [facility] [address] [facility] [id number], [place] [address] Aug, [facility] [address] [facility] [id number], [place] [address] Jul, [facility] [address] [facility] [id number], [place] [address] Dec, IMMUNIZATIONS No Known Immunizations SOCIAL HISTORY Never Assessed REASON FOR VISIT went to the Er last noc...dx with allergies and UTI. she is picking up antibiotic today for UTI. here for second opinion on the allergies dx. [email or web address] PLAN OF CARE Activity Details Follow Up prn Reason: VITAL SIGNS Height 61 in 2018-02-14 Weight 177.8 lbs 2018-02-14 Temperature 98.0 degrees Fahrenheit 2018-02-14 Heart Rate 84 bpm 2018-02-14 Respiratory Rate 20 2018-02-14 BMI 33.59 kg/m2 2018-02-14 Blood pressure systolic 124 mmHg 2018-02-14 Blood pressure diastolic 68 mmHg 2018-02-14 MEDICATIONS Medication Instructions Dosage Frequency Start Date End Date Duration Status Benadryl Active Unisom Active Zoloft 50 mg Orally Once a day 1 tablet 24h Sep, 30 days Active RESULTS No Results PROCEDURES No Known [...]
--- OUTSIDE RECORDS SUMMARY | 2018-12-13 17:50 | XMS REPORT ---
Author Author MASON OLIVO [facility] WALK IN [facility] Address [address] [place] [address] Care Team Providers Care Records Analysis Manager Name Role Phone MASON OLIVO Unavailable PROBLEMS Type Condition ICD9-CM Code LHE68-NW Code Onset Dates Condition Status SNOMED Code Problem Depression, unspecified depression type F32.9 Active 62926303 Problem Seasonal allergic rhinitis, unspecified allergic rhinitis trigger J30.2 Active 512429289 Problem Irregular periods/menstrual cycles N92.6 Active 85260081 Problem Seasonal allergies J30.2 Active 854249133 Problem Missed period N92.6 Active 82410493 Problem Other headache syndrome G44.89 Active 150290554 Problem Anemia, O90.81 Active 999842886 Problem DANIELLA (generalized anxiety disorder) F41.1 Active 53591683 Problem Dysthymic disorder F34.1 Active 26516471 ALLERGIES Substance Reaction Event Type Date Status Cefaclor Unknown Drug Allergy January, Active ENCOUNTERS Encounter Location Date Diagnosis [facility] WALK IN [facility] [id number] [place] [address] 19391 -0212 Mar, Pain of left calf M79.662 and Muscle spasm of left calf M62.831 [place] [address] [place] [address] 21226- 0099 Mar, care in second trimester Z34.92 [facility] [id number] [place] [address] 36035- 8151 Mar, Bilateral impacted cerumen H61.23 [place] [address] [place] [id number] [place] [address] 22491- 4909 Feb, [facility] [address] [id number] [address] Feb, [facility] [address] [place] [id number] [place] [address] 53415- 0641 20 Feb, 2018 Normal in multigravida Z34.80 [place] [address] 69978- 4819 13 Feb, 2018 Painful urination R30.9 and Encounter for supervision of normal in second trimester Z34.92 [facility] [address] [place] [id number] [place] [address] 50934 -5036 07 Feb, 2018 Seasonal allergies J30.2 [facility] [address] 42895- 5029 Feb, [place] [address] 33708- 7196 Feb, [facility] [address] 30928 -3599 January, Seasonal allergic rhinitis, unspecified trigger J30.2 [facility] [address] [place] [id number] [place] [address] 63263 -7215 January, [facility] [address] [place] [id number] [place] [address] 50143 -8753 January, Viral gastroenteritis A08.4 [facility] [address] [place] [id number] [place] [address] 80887- 4412 January, [place] [address] [place] [id number] [place] [address] 30766- 9173 16 Jan, 2018 care in first trimester Z34.91 [facility] [address] [id number] [place] [address] 10024- 5957 January, [facility] [address] [id number] [place] [address] 97333 -3834 January, Left ankle pain, unspecified chronicity M25.572 [facility] [address] [place] [id number] [place] [address] 65272- 3217 January, [facility] [address] [place] [address] 66[address] January, Dysthymic disorder F34.1 and DANIELLA (generalized anxiety disorder) F41.1 [facility] [address] [place] [id number] [place] [address] 67330 -2960 January, Impacted cerumen of both ears H61.23 [facility] [address] [place] [id number] [place] [address] 72449- 4592 Dec, [facility] [address] 48629- 4367 Dec, in multigravida Z34.80 [place] [address] 91213- 3672 Dec, DANIELLA (generalized anxiety disorder) F41.1 and Dysthymic disorder F34.1 [place] [address] 68824- 7048 Dec, [facility] [address] [place] [id number] [place] [address] 98202- 6366 Nov, [place] [address] 62519- 7065 Nov, [place] [address] [place] [id number] [place] [address] 06230- 4268 Nov, Painful urination R30.9 ; Vaginal yeast infection B37.3 and Early stage of Z34.90 [facility] [address] [place] [id number] [place] [address] 92239- 6926 Nov, in multigravida Z34.80 [place] [address] [place] [id number] [place] [address] 46766- 3392 Nov, Dysfunction of right eustachian tube H69.81 and Bilateral impacted cerumen H61.23 [facility] [address] [place] [id number] [place] [address] 57002- 8508 Nov, [facility] [address] [place] [address]- 0628 Nov, [facility] [address] [id number] [place] [address] 77268- 2149 Nov, [facility] WALK IN [facility] [address] [id number] [place] [address] 29550 -7995 Nov, Missed period N92.6 [facility] [address] 57972- 9806 Sep, DANIELLA (generalized anxiety disorder) F41.1 and Dysthymic disorder F34.1 [facility] WALK IN [facility] [address] [id number] [place] [address] 45315 -5771 Aug, Acute nasopharyngitis J00 [place] [address] [place] [id number] [place] [address] 60317- 7941 Jul, Irregular periods/menstrual cycles N92.6 [place] [address] 91570- 5477 Jul, Bilateral impacted cerumen H61.23 [place] [address] [place] [id number] [place] [address] 90148- 0564 Jul, DANIELLA (generalized anxiety disorder) F41.1 and Dysthymic disorder F34.1 [place] [address] [place] [id number] [place] [address] 88578- 3509 Jun, [place] [address] 18565- 4010 Jun, Dysthymic disorder F34.1 [place] [address] [place] [id number] [place] [address] 93155- 6195 Jun, Anemia, O90.81 ; Lower abdominal pain R10.30 ; Allergic contact dermatitis due to adhesives L23.1 and Other headache syndrome G44.89 [place] [address] [place] [id number] [place] [address] 07149- 3766 Jun, 39 weeks gestation of Z3A.39 [place] [address] [place] [id number] [place] [address] 75596- 8327 27 May, 2017 care in third trimester Z34.93 [facility] IN [place] [address] 14897 -9127 24 May, 2017 Acute seasonal allergic rhinitis, unspecified trigger J30.2 [place] [address] 26560- 4479 20 May, 2017 Normal in multigravida Z34.80 [facility] IN [facility] [address] 87111 -6358 17 May, 2017 Urinary frequency R35.0 and Pain of round ligament N94.9 [place] [address] 35382- 9368 13 May, 2017 35 weeks gestation of Z3A.35 [place] [address] 56720- 1307 Apr, High risk sexual behavior Z72.51 and 33 weeks gestation of Z3A.33 [place] [address] 98279- 5264 Apr, care in third trimester Z34.93 [facility] [place] [address] [place] [id number] [place] [address] 38331 -0640 Apr, Bilateral impacted cerumen H61.23 [place] [address] 16748- 0230 Apr, 30 weeks gestation of Z3A.30 and Encounter for immunization Z23 [place] [address] 62025- 8913 Mar, 28 weeks gestation of Z3A.28 [place] [address] 33745- 1786 Mar, [place] [address] 17528- 6710 Mar, [place] [address] [place] [id number] [place] [address] 63460- 0982 Mar, [place] [address] [place] [id number] [place] [address] 11576- 5884 Mar, 26 weeks gestation of Z3A.26 [facility] [address] [place] [id number] [place] [address] 23321 -4096 Mar, Acute back pain M54.9 [place] [address] [place] [id number] [place] [address] 80046- 4822 28 Feb, 2017 24 weeks gestation of Z3A.24 [facility] [address] [place] [address] 52121 -8094 27 Feb, 2017 Lower abdominal pain R10.30 [facility] [address] [place] [place] [id number] [place] [address] 35155 -8013 Feb, Gastroenteritis and colitis, viral A08.4 [place] [id number] [place] [address] 19547- 3293 14 Feb, 2017 care in second trimester Z34.92 [place] [id number] [place] [address] 13773- 1190 07 Feb, 2017 [facility] [address] [place] [id number] [place] [address] 76913 -1252 04 Feb, 2017 Abscess L02.91 [facility] [place] [id number] [place] [address] 36824 -8333 Feb, Vaginal flavia B37.3 [place] [id number] [place] [address] 09544- 3743 January, 20 weeks gestation of Z3A.20 [place] [id number] [place] [address] 01824- 6432 January, [facility] [address] [place] [id number] [place] [address] 97844 -0034 January, Seasonal allergic rhinitis, unspecified allergic rhinitis trigger J30.2 [facility] [address] [place] [id number] [place] [address] 58061 -8423 January, Dermatitis L30.9 and Bug bites, initial encounter W57.XXXA [place] [address] [place] [id number] [place] [address] 35291- 9986 January, Sore throat J02.9 and Seasonal allergic rhinitis, unspecified allergic rhinitis trigger J30.2 [place] [address] [place] [id number] [place] [address] 03119- 3457 January, 16 weeks gestation of Z3A.[address] 75411- 0341 Dec, care in first trimester Z34.91 [place] [address] 34319- 3325 Nov, care in first trimester Z34.91 and Normal in multigravida Z34.80 [facility] WALK IN [place] [address] [place] [id number] [place] [address] 39650 -6154 Oct, Nausea and vomiting during O21.9 [place] [address] [place] [id number] [place] [address] 45468- 2856 Oct, [place] [address] [place] [id number] [place] [address] 09009- 8785 Oct, [place] [address] [place] [id number] [place] [address] 91018- 7502 Oct, Encounter for test, result unknown Z32.00 [place] [id number] [place] [address] 15529- 0751 Sep, Irregular periods/menstrual cycles N92.6 ; Sore throat J02.9 ; Nausea R11.0 and Right ear impacted cerumen H61.21 [facility]ALK IN [place] [id number] [place] [address] 13736 -7410 Jul, Vaginal discharge N89.8 ; Other specified bacterial agents as the cause of diseases classified elsewhere B96.89 and Acute vaginitis N76.0 [place] [address] [place] [id number] [place] [address] 75757- 5486 10 Jun, 2016 Depression, unspecified depression type F32.9 [place] [address] [place] [id number] [place] [address] 42026- 5888 23 May, 2016 Vaginal candidiasis B37.3 [place] [address] 93451- 2977 20 May, 2016 Acute pharyngitis, unspecified etiology J02.9 [place] [address] 98576 0237 19 May, 2016 Depression, unspecified depression type F32.9 [place] [address] 16493- 6487 12 May, 2016 Depression, unspecified depression type F32.9 [place] [address] [place] [id number] [place] [address] 52087- 0356 12 May, 2016 Dysthymic disorder F34.1 [facility] N [address] 38791 -3534 Apr, Acute suppurative otitis media of right ear without spontaneous rupture of tympanic membrane, recurrence not specified H66.001 [facility] [address] [place] [id number] [place] [address] 50150 -8937 Mar, Herpes zoster without complication B02.9 [facility] [address] [place] [id number] [place] [address] 03721 -8260 Dec, Allergic rhinitis J30.9 [facility] N [address] 01207 -9590 03 Dec, 2015 Lumbago M54.5 [facility] [address] [place] [id number] [place] [address] 19487 -5989 18 Oct, 2015 Dysuria R30.0 and Urinary tract infection N39.0 [facility] N [address] [place] [address] 86380 -5449 Sep, Acute nasopharyngitis J00 and Strep pharyngitis J02.0 [facility] [address] [place] [id number] [place] [address] 07203- 1075 Jul, Upper respiratory tract infection, unspecified type J06.9 [place] [address] 51434- 0329 Jun, Irritable bowel syndrome without diarrhea K58.9 [place] [address] [place] [id number] [place] [address] 00533- 0489 Jun, [place] [address] 05556- 3083 May, [place] [address] [place] [id number] [place] [address] 61585- 5292 May, [place] [address] 65792- 1666 May, Otitis externa of left ear 380.10 [place] [address] 00729- 1519 May, Pain in joint, ankle and foot 719.47 [place] [address] [place] [id number] [place] [address] 89368- 7037 Apr, Pain in joint, ankle and foot 719.47 [place] [address] [place] [id number] [place] [address] 59993- 2579 Mar, Dysuria 788.1 and Incontinence in female 625.6 [place] [address] [place] [id number] [place] [address] 13223- 2141 Feb, Plantar fasciitis of right foot 728.71 ; Ankle weakness 719.67 and Ankle pain, chronic 719.47 [place] [address] [place] [id number] [place] [address] 62009- 6360 Feb, [place] [address] [place] [id number] [address]- 9574 Feb, Belching 787.3 and Chest wall pain 786.52 [facility] [address] [id number] [place] [address]- 6084 14 Dec, 2014 [facility] [address] [id number] [place] [address]- 4101 Dec, [facility] [address] [id number] [place] [address]- 2594 Nov, [facility] [address] [id number] [place] [address]- 4803 Nov, [facility] [address] [id number] [place] [address]- 1706 Sep, [facility] [address] [facility] [id number] [place] [address]- 1014 Sep, [facility] [address] [facility] [id number] [place] [address]- 3395 Sep, [facility] [address] [id number] [place] [address]- 2530 Sep, [facility] [address] [place] [id number] [address]- 4700 Aug, [facility] [address] [facility] [id number] [place] [address]- 0419 Aug, [facility] [address] [id number] [place] [address]- 3013 Aug, [facility] [place] [facility] [address] [id number] [place] [address]- 0498 Aug, [facility] [address] [facility] [id number] [place] 4186 Aug, [facility] [place] [facility] [address] [facility] [id number] [place] 7077 Aug, [facility] [address] [id number] [place] [address]- 6105 Aug, [facility] [place] [facility] [address] [id number] [place] [address]- 2602 Aug, [facility] [place] [facility] [address] [id number] [place] [address]- 8853 Aug, [facility] [place] [facility] [address] [facility] [id number] [place] [address]- 6880 Aug, [facility] [place] [facility] [address] [id number] [place] [address]- 2696 Aug, [facility] [place] [facility] [address] [facility] [id number] [place] [address]- 1062 Aug, [facility] [place] [facility] [address] [facility] [id number] [place] [address]- 1482 Aug, [facility] [place] [facility] [address] [place] [id number] [address]- 3522 Aug, [facility] [place] [facility] [address] [facility] [id number] [place] [address]- 2743 Jul, [facility] [place] [facility] [address] [facility] [id number] [place] [address]- 3672 Jul, [facility] [place] [facility] [address] [place] [id number] [address]- 5539 Jul, [facility] [place] [facility] [address] [facility] [id number] [place] [address]- 7209 Jul, [facility] [place] [facility] [address] [facility] [id number] [place] [address]- 0295 Jul, [facility] [place] [facility] [address] [id number] [place] [address]- 3350 Jul, [facility] [place] [facility] [address] [facility] [id number] [place] [address]- 7214 Jul, [facility] [place] [facility] [address] [place] [id number] [place] [address]- 8044 Jun, [facility] [place] [facility] [address] [id number] [place] [address]- 1050 Jun, [facility] [place] [facility] [address] [id number] [place] 2818 Jun, [facility] [place] [facility] [address] [id number] [place] [address]- 5797 Jun, [facility] [place] [facility] [address] [id number] [place] 5086 Jun, [facility] [place] [facility] [address] [id number] [place] [address]- 6794 Jun, [facility] [place] [facility] [address] [id number] [place] [address]- 3740 Jun, [facility] [place] [facility] [address] [id number] [place] [address]- 8250 Jun, [facility] [place] [facility] [address] [id number] [place] [address]- 3062 Jun, [facility] [place] [facility] [address] [id number] [place] [address]- 1789 Jun, [facility] [place] [facility] [address] [id number] [place] [address]- 7130 Jun, [facility] [place] [facility] [address] [id number] [place] [address]- 3895 Jun, [facility] [place] [facility] [address] [id number] [place] [address]- 9790 Jun, [facility] [place] [facility] [address] [id number] [place] 4892 Jun, [facility] [place] [facility] [address] [id number] [place] [address]- 5599 May, [facility] [place] [facility] [address] [id number] [place] 6136 May, [facility] [place] [facility] [address] [id number] [place] [address]- 7228 May, [facility] [place] [facility] [address] [id number] [place] [address]- 4414 May, [facility] [place] [facility] [address] [id number] [place] [address]- 2919 May, [facility] [place] [facility] [address] [id number] [place] [address]- 2367 Apr, [facility] [place] [facility] [address] [id number] [place] [address]- 8149 Apr, [facility] [place] [facility] [address] [id number] [place] [address]- 0269 Apr, [facility] [place] [facility] [address] [id number] [place] [address]- 8261 Apr, [facility] [place] [facility] [address] [id number] [place] [address]- 8704 Mar, [facility] [place] [facility] [address] [id number] [place] [address]- 6870 Mar, [facility] [place] [facility] [address] [id number] [place] [address]- 8887 Mar, [facility] [place] [facility] [address] [id number] [place] [address]- 9495 Mar, [facility] [place] [facility] [address] [id number] [place] [address]- 7684 Mar, [facility] [place] [facility] [address] [id number] [place] [address]- 7304 Mar, [facility] [place] [facility] [address] [id number] [place] [address]- 2279 Mar, [facility] [place] [facility] [address] [id number] [place] [address]- 1077 Mar, [facility] [place] [facility] [address] [id number] [place] [address] Feb, [facility] [place] [facility] [address] [id number] [place] [address] Feb, [facility] [place] [facility] [address] [id number] [place] [address] Feb, [facility] [place] [facility] [address] [id number] [place] [address] Feb, [facility] [place] [facility] [address] [id number] [place] [address] Feb, [facility] [place] [facility] [address] [id number] [place] [address] Feb, [facility] [place] [facility] [address] [id number] [place] [address] Feb, [facility] [place] [facility] [address] [id number] [place] [address] Feb, [facility] [place] [facility] [address] [id number] [place] [address] January, [facility] [place] [facility] [address] [id number] [place] [address] January, [facility] [place] [facility] [address] [id number] [place] [address] January, [facility] [place] [facility] [address] [id number] [place] [address] January, [facility] [place] [facility] [address] [id number] [place] [address] January, [facility] [place] [facility] [address] [id number] [place] [address] January, [facility] [place] [facility] [address] [id number] [place] [address] Dec, [facility] [place] [facility] [address] [id number] [place] [address] Dec, [facility] [place] [facility] [address] [id number] [place] [address] Dec, [facility] [place] [facility] [address] [id number] [place] [address] Dec, [facility] [place] [facility] [address] [id number] [place] [address] Dec, [facility] [place] [facility] [address] [id number] [place] [address] Dec, [facility] [place] [facility] [address] [id number] [place] [address] Dec, [facility] [place] [facility] [address] [id number] [place] [address] Dec, [facility] [place] [facility] [address] [id number] [place] [address] Oct, [facility] [place] [facility] [address] [id number] [place] [address] Oct, [facility] [place] [facility] [address] [id number] [place] [address] Aug, [facility] [place] [facility] [address] [id number] [place] [address] Aug, [facility] [place] [facility] [address] [id number] [place] [address] Jul, [facility] [place] [facility] [address] [id number] [place] [address] Jul, [facility] [place] [facility] [address] [id number] [place] [address] Mar, [facility] [place] [facility] [address] [id number] [place] [address] Mar, [facility] [place] [facility] [address] [id number] [place] [address] Mar, [facility] [place] [facility] [address] [id number] [place] [address] Feb, [facility] [place] [facility] [address] [id number] [place] [address] Feb, [facility] [address] [id number] [place] [address] Feb, [facility] [address] [id number] [place] [address] January, [facility] [address] [id number] [place] [address]- [address] January, [facility] [address] [id number] [place] [address] January, [facility] [address] [id number] [place] [address] January, [facility] [address] [id number] [place] [address] January, [facility] [address] [id number] [place] [address] January, [facility] [address] [id number] [place] [address] January, [facility] [address] [id number] [place] [address] Dec, [facility] [address] [id number] [place] [address] Dec, [facility] [address] [id number] [place] [address] Dec, [facility] [place] [facility] [address] [id number] [place] [address] Dec, [facility] [place] [facility] [address] [id number] [place] [address] Nov, [facility] [place] [facility] [address] [id number] [place] [address] Nov, [facility] [place] [facility] [address] [id number] [place] [address] Nov, [facility] [place] [facility] [address] [id number] [place] [address] 27 Oct, 2012 [facility] [address] [id number] [place] [address] 25 Oct, 2012 [facility] [place] [facility] [address] [id number] [place] [address] 20 Oct, 2012 [facility] [address] [id number] [place] [address] 19 Oct, 2012 [facility] [address] [id number] [place] [address] Oct, [facility] [address] [id number] [place] [address] 05 Oct, 2012 [facility] [address] [id number] [place] [address] Sep, [facility] [address] [id number] [place] [address] Sep, [facility] [address] [id number] [place] [address] Sep, [facility] [address] [id number] [place] [address] Sep, [facility] [address] [id number] [place] [address] Sep, [facility] [address] [id number] [place] [address] Aug, [facility] [place] [facility] [address] [id number] [place] [address] Aug, [facility] [place] [facility] [address] [id number] [place] [address] 39[address] Aug, [facility] [place] [facility] [address] [id number] [place] [address] Aug, [facility] [place] [facility] [address] [id number] [place] [address] Aug, [facility] [place] [facility] [address] [id number] [place] [address] Aug, [facility] [place] [facility] [address] [id number] [place] [address]- [address]67 Jul, [facility] [place] [facility] [address] [id number] [place] [address] Jul, [facility] [place] [facility] [address] [id number] [place] [address] Jul, [facility] [place] [facility] [address] [id number] [place] [address] Jul, [facility] [place] [facility] [address] [id number] [place] [address] 28[address] Jul, [facility] [place] [facility] [address] [id number] [place] [address] 60[address] Jul, [facility] [place] [facility] [address] [id number] [place] [address] 17[address] Jul, [facility] [place] [facility] [address] [id number] [place] [address] 15 Jul, 2012 [facility] [place] [facility] [address] [id number] [place] [address] 3918 14 Jul, 2012 [facility] [place] [facility] [address] [id number] [place] [address] Jul, [facility] [place] [facility] [address] [id number] [place] [address] Jul, [facility] [place] [facility] [address] [id number] [place] [address] Jul, [facility] [place] [facility] [address] [id number] [place] [address] Jul, [facility] [place] [facility] [address] [id number] [place] [address] Jul, [facility] [place] [facility] [address] [id number] [place] [address]- [address]46 08 Jul, 2012 [facility] [place] [facility] [address] [id number] [place] [address] Jul, [facility] [place] [facility] [address] [id number] [place] [address]46 Jul, [facility] [address] [id number] [place] [address]- [address]46 Jul, [facility] [place] [facility] [address] [id number] [place] [address] Jul, [facility] [place] [facility] [address] [id number] [place] [address] Jun, [facility] [place] [facility] [address] [id number] [place] [address]- 1046 Jun, [facility] [place] [facility] [address] [id number] [place] [address]- [address] May, [facility] [place] [facility] [address] [id number] [place] [address]- [address]199 Apr, [facility] [place] [facility] [address] [id number] [place] [address]- [address] Mar, [facility] [address] [facility] [place] [id number] [place] [address] 2546 Feb, [facility] [place] [facility] [address] [id number] [place] [address]- 2546 Feb, [facility] [place] [facility] [address] [id number] [place] [address]- 2546 Feb, [facility] [place] [facility] [address] [id number] [place] [address] 3436 January, [facility] [place] [facility] [address] [id number] [place] [address]46 January, [facility] [place] [facility] [address] [id number] [place] [address]- [address]75 Dec, [facility] [place] [facility] [address] [id number] [place] [address]- 0786 Dec, [facility] [place] [facility] [address] [id number] [place] [address]- 1449 08 Nov, 2011 [facility] [place] [facility] [address] [id number] [place] [address] 2360 Aug, [facility] [place] [facility] [address] [id number] [place] [address] 94[address] Jul, [facility] [place] [facility] [address] [id number] [place] [address]- 3149 Jul, [facility] [place] [facility] [address] [id number] [place] [address]- [address]107 16 Jul, 2011 [facility] [place] [facility] [address] [id number] [place] [address]- [address]240 12 Jun, 2011 [facility] [place] [facility] [address] [id number] [place] [address]- 1585 12 Jun, 2011 [facility] [place] [facility] [address] [id number] [place] [address]753 14 May, 2011 [facility] [place] [facility] [address] [id number] [place] [address]- [address] 10 Apr, 2011 [facility] [place] [facility] [address] [id number] [place] [address]- [address] January, [facility] [place] [facility] [address] [id number] [place] [address]- 9089 13 Dec, 2010 [facility] [place] [facility] [address] [id number] [place] [address]- 4732 16 Nov, 2010 [facility] [place] [facility] [address] [id number] [place] [address]- 0656 10 Oct, 2010 [facility] [place] [facility] [address] [id number] [place] [address]- 9455 14 Jun, 2010 [facility] [place] [facility] [address] [id number] [place] [address]- 3766 14 Jun, 2010 [facility] [address] [facility] [place] [id number] [place] [address] Oct, [facility] [address] [facility] [place] [id number] [place] [address] 2546 Aug, [facility] [address] [facility] [place] [id number] [place] [address] Jul, [facility] [address] [facility] [place] [id number] [place] [address] Dec, IMMUNIZATIONS No Known Immunizations SOCIAL HISTORY Never Assessed REASON FOR VISIT Diarrhea Pt states she has had diarrhea since the with abdominal cramping she is approximately 15-16 [employer] Elena PLAN OF CARE Activity Details Follow Up prn Reason: VITAL SIGNS Height 61 in 2018-02-12 Weight 178.8 lbs 2018-02-12 Temperature 97.9 degrees Fahrenheit 2018-02-12 Heart Rate 80 bpm 2018-02-12 Respiratory Rate 20 2018-02-12 BMI 33.78 kg/m2 2018-02-12 Blood pressure systolic 124 mmHg 2018-02-12 Blood pressure diastolic 62 mmHg 2018-02-12 MEDICATIONS Medication Instructions Dosage Frequency Start Date End Date Duration Status SudoGest 60 mg Orally every 6 hrs 1 tablet as needed 6h Nov, 05 days Not-Taking Diflucan 150 MG 1 tablet Nov, 1 dose Not-Taking Zoloft 50 mg Orally Once a day 1 tablet 24h Sep, 30 days Active Unisom Active Vitamin Not-Taking Flonase 50 MCG/ACT Nasally Once a day 2 sprays in each nostril 24h Nov, 30 day(s) Not-Taking RESULTS No Results PROCEDURES No Known procedures [...]
--- OUTSIDE RECORDS SUMMARY | 2018-12-13 17:51 | XMS REPORT ---
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 Role Phone ZAYRA GOMEZ Unavailable PROBLEMS Type Condition ICD9-CM Code IKS00-YL Code Onset Dates Condition Status SNOMED Code Problem Depression, unspecified depression type F32.9 Active 23284340 Problem Seasonal allergic rhinitis, unspecified allergic rhinitis trigger J30.2 Active 748322525 Problem Irregular periods/menstrual cycles N92.6 Active 07504873 Problem Seasonal allergies J30.2 Active 855531032 Problem Missed period N92.6 Active 04735223 Problem Other headache syndrome G44.89 Active 147972989 Problem Anemia, O90.81 Active 364858746 Problem DANIELLA (generalized anxiety disorder) F41.1 Active 69422949 Problem Dysthymic disorder F34.1 Active 86512629 ALLERGIES No Information ENCOUNTERS Encounter Location Date Diagnosis [facility] [address] [address] -[address]296 Mar, Pain of left calf M79.662 and Muscle spasm of left calf M62.831 [place] [address] [id number] [place] [address] 71141- 2890 Mar, care in second trimester Z34.92 [facility] [id number] [place] [address] 13716- 5856 Mar, Bilateral impacted cerumen H61.23 [place] [address] 73815- 4601 Feb, [facility] [id number] [place] [address] 27995 -8696 Feb, [facility] [address] 21981- 5688 20 Feb, 2018 Normal in multigravida Z34.80 [facility] [id number] [place] [address] 35302- 2206 13 Feb, 2018 Painful urination R30.9 and Encounter for supervision of normal in second trimester Z34.92 [facility] [id number] [place] [address] 57244 -3400 07 Feb, 2018 Seasonal allergies J30.2 [facility] [address] 69315- 5155 Feb, [place] [address] 72922- 2315 Feb, [facility] [address] 90127 -8645 January, Seasonal allergic rhinitis, unspecified trigger J30.2 [facility] [address] 69238 -5672 January, [facility] [address] 28489 -9985 January, Viral gastroenteritis A08.4 [place] [address] 10961- 6494 January, [facility] [id number] [place] [address] 34393- 2054 January, care in first trimester Z34.91 [facility] [id number] [place] [address] 81918- 3831 January, [facility] [id number] [place] [address] 70145 -3402 January, Left ankle pain, unspecified chronicity M25.572 [facility] [id number] [place] [address] 02700- 6634 January, [facility] [id number] [place] [address] 51007- 9076 January, Dysthymic disorder F34.1 and DANIELLA (generalized anxiety disorder) F41.1 [facility] [id number] [place] [address] 69703 -0859 January, Impacted cerumen of both ears H61.23 [facility] [id number] [place] [address] 91499- 7404 Dec, [facility] [address] 70893- 3363 Dec, in multigravida Z34.80 [place] [address] 04847- 9147 Dec, DANIELLA (generalized anxiety disorder) F41.1 and Dysthymic disorder F34.1 [facility] [id number] [place] [address] 37469- 9673 Dec, [facility] [address] 74708- 9788 Nov, [place] [address] [id number] [place] [address] 77439- 0534 Nov, [place] [address] 14747- 5542 Nov, Painful urination R30.9 ; Vaginal yeast infection B37.3 and Early stage of Z34.90 [place] [id number] [place] [address] 87992- 6866 Nov, in multigravida Z34.80 [place] [id number] [place] [address] 59104- 8704 Nov, Dysfunction of right eustachian tube H69.81 and Bilateral impacted cerumen H61.23 [facility] [id number] [place] [address] 33286- 7488 Nov, [facility] [address] 53448- 4137 Nov, [facility] [id number] [place] [address] 98102- 2352 Nov, [facility] [id number] [place] [address] 34051 -2780 Nov, Missed period N92.6 [place] [id number] [place] [address] 05618- 6315 Sep, DANIELLA (generalized anxiety disorder) F41.1 and Dysthymic disorder F34.1 [facility] [id number] [place] [address] 28365 -4498 Aug, Acute nasopharyngitis J00 [place] [address] 77477- 6330 Jul, Irregular periods/menstrual cycles N92.6 [place] [address] 24615- 3466 Jul, Bilateral impacted cerumen H61.23 [place] [address] [id number] [place] [address] 96490- 0599 Jul, DANIELLA (generalized anxiety disorder) F41.1 and Dysthymic disorder F34.1 [place] [id number] [place] [address] 03599- 8456 Jun, [place] [address] [id number] [place] [address] 91675- 3658 Jun, Dysthymic disorder F34.1 [place] [id number] [place] [address] 28444- 2392 Jun, Anemia, O90.81 ; Lower abdominal pain R10.30 ; Allergic contact dermatitis due to adhesives L23.1 and Other headache syndrome G44.89 [place] [id number] [place] [address] 59059- 9226 Jun, 39 weeks gestation of Z3A.39 [place] [address] 93509- 7479 27 May, 2017 care in third trimester Z34.93 [facility] [id number] [place] [address] 39320 -8129 24 May, 2017 Acute seasonal allergic rhinitis, unspecified trigger J30.2 [place] [id number] [place] [address] 40796- 9064 20 May, 2017 Normal in multigravida Z34.80 [facility] [address] 45672 -6416 17 May, 2017 Urinary frequency R35.0 and Pain of round ligament N94.9 [place] [address] 71276- 2993 13 May, 2017 35 weeks gestation of Z3A.35 [place] [address] 74616- 4243 Apr, High risk sexual behavior Z72.51 and 33 weeks gestation of Z3A.33 [place] [address] 07825- 8672 Apr, care in third trimester Z34.93 [facility] [id number] [place] [address] 49752 -8441 Apr, Bilateral impacted cerumen H61.23 [place] [address] [id number] [place] [address] 52581- 6229 Apr, 30 weeks gestation of Z3A.30 and Encounter for immunization Z23 [place] [address] [id number] [place] [address] 95020- 1058 Mar, 28 weeks gestation of Z3A.28 [place] [address] 39022- 4031 Mar, [place] [address] [id number] [place] [address] 05844- 2367 Mar, [place] [address] 82794- 0453 Mar, [place] [id number] [place] [address] 08787- 6440 12 Mar, 2017 26 weeks gestation of Z3A.26 [facility] [address] [address] [id number] [place] [address] 14428 -8413 03 Mar, 2017 Acute back pain M54.[address] 68824- 0286 28 Feb, 2017 24 weeks gestation of Z3A.24 [facility] [address] [place] [id number] [place] [address] 19361 -2409 27 Feb, 2017 Lower abdominal pain R10.30 [facility] [address] [place] [id number] [place] [address] 34109 -2947 25 Feb, 2017 Gastroenteritis and colitis, viral A08.[address] 52850- 3397 14 Feb, 2017 care in second trimester Z34.92 [place] [id number] [place] [address] 91538- 8187 07 Feb, 2017 [facility] [address] [place] [id number] [place] [address] 91124 -0772 04 Feb, 2017 Abscess L02.91 [facility] [place] [id number] [place] [address] 66677 -6298 Feb, Vaginal flavia B37.3 [place] [id number] [place] [address] 02469- 3011 January, 20 weeks gestation of Z3A.20 [place] [id number] [place] [address] 61823- 0294 January, [facility] [address] [place] [id number] [place] [address] 72338 -8373 January, Seasonal allergic rhinitis, unspecified allergic rhinitis trigger J30.2 [facility] [address] [place] [address] [place] [address]6057 January, Dermatitis L30.9 and Bug bites, initial encounter W57.XXXA [address] 40007- 1208 January, Sore throat J02.9 and Seasonal allergic rhinitis, unspecified allergic rhinitis trigger J30.[address] 74908- 5354 January, 16 weeks gestation of Z3A.16 [place] [address] 72081- 5861 Dec, care in first trimester Z34.[address] 86232- 7551 Nov, care in first trimester Z34.91 and Normal in multigravida Z34.80 [facility] [address] 91277 -4862 Oct, Nausea and vomiting during O21.[address] 85153- 0709 Oct, [place] [address] 03136- 2937 Oct, [address] 33688- 8151 Oct, Encounter for test, result unknown Z32.[address] 57261- 9896 Sep, Irregular periods/menstrual cycles N92.6 ; Sore throat J02.9 ; Nausea R11.0 and Right ear impacted cerumen H61.21 [facility] [address] [place] [id number] [place] [address] 49463 -2972 Jul, Vaginal discharge N89.8 ; Other specified bacterial agents as the cause of diseases classified elsewhere B96.89 and Acute vaginitis N76.0 [place] [address] [address] [id number] [place] [address] 77943- 8891 10 Jun, 2016 Depression, unspecified depression type F32.9 [place] [address] [address] [id number] [place] [address] 57175- 9467 23 May, 2016 Vaginal candidiasis B37.3 [place] [address] 99876- 6368 20 May, 2016 Acute pharyngitis, unspecified etiology J02.9 [place] [address] [address] [id number] [place] [address] 83329- 2398 19 May, 2016 Depression, unspecified depression type F32.9 [place] [address] [address] [id number] [place] [address] 36265- 3425 12 May, 2016 Depression, unspecified depression type F32.9 [place] [address] [address] [id number] [place] [address] 95807- 2587 12 May, 2016 Dysthymic disorder F34.1 [facility] [address] [place] [id number] [place] [address] 13132 -1894 Apr, Acute suppurative otitis media of right ear without spontaneous rupture of tympanic membrane, recurrence not specified H66.001 [facility] [id number] [place] [address] 70046 -0800 Mar, Herpes zoster without complication B02.9 [facility] [id number] [place] [address] 20528 -5659 Dec, Allergic rhinitis J30.9 [facility] [address] [place] [id number] [place] [address] 33061 -5985 Dec, Lumbago M54.5 [facility] [id number] [place] [address] 78707 -1815 18 Oct, 2015 Dysuria R30.0 and Urinary tract infection N39.0 [facility] [id number] [place] [address] 13640 -6096 Sep, Acute nasopharyngitis J00 and Strep pharyngitis J02.0 [place] [address] [id number] [place] [address] 70734- 0297 Jul, Upper respiratory tract infection, unspecified type J06.9 [place] [address] [id number] [place] [address] 57104- 3416 Jun, Irritable bowel syndrome without diarrhea K58.9 [place] [address] [address] [id number] [place] [address] 12973- 9095 Jun, [place] [address] 11238- 6200 May, [place] [address] [address] [id number] [place] [address] 16996- 6632 May, [place] [address] 88888- 2636 May, Otitis externa of left ear 380.10 [place] [address] [address] [id number] [place] [address] 39518- 7518 May, Pain in joint, ankle and foot 719.47 [place] [address] [address] [id number] [place] [address] 25647- 5015 Apr, Pain in joint, ankle and foot 719.47 [place] [address] [address] [id number] [place] [address] 04723- 5077 Mar, Dysuria 788.1 and Incontinence in female 625.6 [place] [id number] [place] [address] 98620- 0453 Feb, Plantar fasciitis of right foot 728.71 ; Ankle weakness 719.67 and Ankle pain, chronic 719.47 [place] [address] [address] [id number] [place] [address] 85103- 6059 Feb, [place] [address] [place] [address] [id number] [place] [address] 41702- 5147 Feb, Belching 787.3 and Chest wall pain 786.52 [facility] [address] [id number] [place] [address]- 4404 14 Dec, 2014 [facility] [address] [id number] [place] [address]- 7078 Dec, [facility] [address] [id number] [place] [address]- 2187 16 Nov, 2014 [facility] [address] [id number] [place] [address]- 6408 Nov, [facility] [address] [id number] [place] [address], [place] [address]- 7437 Sep, [facility] [address] [facility] [id number] [place] [address]- 4349 Sep, [facility] [address] [place] [id number] [place] [address], [place] [address]- 3440 Sep, [facility] [address] [facility] [id number] [place] [address]- 5590 Sep, [facility] [address] [address] [id number] [place] [address]- 4658 Aug, [facility] [address] [facility] [id number] [place] [address]- 1899 Aug, [facility] [address] [address] [id number] [place] [address]- 6529 Aug, [facility] [address] [facility] [id number] [address]- 5744 Aug, [facility] [address] [facility] [id number] [place] 2495 Aug, [facility] [address] [facility] [id number] [place] 0731 Aug, [facility] [address] [facility] [id number] 9243 Aug, [facility] [place] [facility] [address] [id number] [place] [address]- 8572 Aug, [facility] [place] [facility] [address] [id number] [place] 9777 Aug, [facility] [place] [facility] [address] [id number] [place] [address]- 1104 Aug, [facility] [place] [facility] [address] [id number] [place] [address]- 6697 Aug, [facility] [place] [facility] [address] [id number] [place] [address]- 0947 Aug, [facility] [place] [facility] [address] [id number] [place] [address]- 8315 Aug, [facility] [place] [facility] [address] [id number] [place] [address]- 8034 Aug, [facility] [place] [facility] [address] [id number] [place] [address]- 9037 Jul, [facility] [place] [facility] [address] [id number] [place] [address]- 4477 Jul, [facility] [place] [facility] [address] [id number] [place] [address]- 4035 Jul, [facility] [place] [facility] [address] [id number] [place] [address]- 9362 Jul, [facility] [place] [facility] [address] [id number], [place] [address]- 8894 Jul, [facility] [place] [facility] [address] [id number] [place] [address]- 5232 Jul, [facility] [place] [facility] [address] [id number] [place] [address]- 1019 Jul, [facility] [place] [facility] [address] [id number] [place] 0098 Jun, [facility] [place] [facility] [address] [id number] [place] [address]- 2491 Jun, [facility] [place] [facility] [address] [id number] [place] [address]- 4739 Jun, [facility] [place] [facility] [address] [id number] [place] 2251 Jun, [facility] [place] [facility] [address] [id number] [place] [address]- 7828 Jun, [facility] [place] [facility] [address] [id number] [place] [address]- 8423 Jun, [facility] [place] [facility] [address] [id number] [place] [address]- 7655 Jun, [facility] [place] [facility] [address] [id number] [place] [address]- 7757 Jun, [facility] [place] [facility] [address] [id number] [place] [address]- 1184 Jun, [facility] [place] [facility] [address] [id number] [place] [address]- 8456 Jun, [facility] [place] [facility] [address] [id number] [place] [address]- 5055 Jun, [facility] [place] [facility] [address] [id number] [place] [address]- 8007 Jun, [facility] [place] [facility] [address] [id number] [address]- 4814 Jun, [facility] [place] [facility] [address] [id number] [address]- 7033 Jun, [facility] [place] [facility] [address] [id number] [place] [address]- 4683 May, [facility] [place] [facility] [address] [id number] [place] [address]- 5187 May, [facility] [place] [facility] [address] [id number] [place] [address]- 6126 May, [facility] [place] [facility] [address] [id number] [place] [address]- 5971 May, [facility] [place] [facility] [address] [id number] [place] [address]- 5628 May, [facility] [place] [facility] [address] [id number] [place] [address]- 7838 Apr, [facility] [place] [facility] [address] [id number] [place] [address]- 6681 Apr, [facility] [place] [facility] [address] [id number] [place] [address]- 4625 Apr, [facility] [place] [facility] [address] [id number] [place] [address]- 5417 Apr, [facility] [place] [facility] [address] [id number] [place] [address]- 1572 Mar, [facility] [place] [facility] [address] [id number] [place] [address]- 6989 Mar, [facility] [place] [facility] [address] [id number] [place] [address]- 6110 Mar, [facility] [place] [facility] [address] [id number] [place] [address]- 8084 Mar, [facility] [place] [facility] [address] [id number] [place] [address]- 2359 Mar, [facility] [place] [facility] [address] [id number] [place] [address] Mar, [facility] [place] [facility] [address] [id number] [place] [address] Mar, [facility] [place] [facility] [address] [id number] [place] [address] Mar, [facility] [place] [facility] [address] [id number] [place] [address] Feb, [facility] [place] [facility] [address] [id number] [place] [id number] Feb, [facility] [place] [facility] [address] [id number] [place] [address] Feb, [facility] [place] [facility] [address] [id number] [place] [address] Feb, [facility] [place] [facility] [address] [id number] [place] [address] Feb, [facility] [place] [facility] [address] [id number] [place] [address] Feb, [facility] [place] [facility] [address] [id number] [place] [address] Feb, [facility] [place] [facility] [address] [id number] [place] [address] Feb, [facility] [place] [facility] [address] [id number] [place] [address] January, [facility] [place] [facility] [address] [id number] [place] [address] January, [facility] [place] [facility] [address] [id number] [place] [address] January, [facility] [place] [facility] [address] [id number] [place] [address] January, [facility] [place] [facility] [address] [id number] [place] [address] January, [facility] [place] [facility] [address] [id number] [place] [address] January, [facility] [place] [facility] [address] [id number] [place] [address] Dec, [facility] [place] [facility] [address] [id number] [place] [address] Dec, [facility] [place] [facility] [address] [id number] [place] [address] Dec, [facility] [place] [facility] [address] [id number] [place] [address]- [address] Dec, [facility] [address] [id number] [place] [address] Dec, [facility] [place] [facility] [address] [id number] [place] [address]- [address] Dec, [facility] [place] [facility] [address] [id number] [place] [address] Dec, [facility] [place] [facility] [address] [id number] [place] [address] Dec, [facility] [place] [facility] [address] [id number] [place] [address] Oct, [facility] [place] [facility] [address] [id number] [place] [address] Oct, [facility] [address] [id number] [place] [address] Aug, [facility] [place] [facility] [address] [id number] [place] [address] Aug, [facility] [place] [facility] [address] [id number] [place] [address] Jul, [facility] [place] [facility] [address] [id number] [place] [address] Jul, [facility] [place] [facility] [address] [id number] [place] [address] Mar, [facility] [place] [facility] [address] [id number] [place] [address] Mar, [facility] [place] [facility] [address] [id number] [place] [address]- [address] Mar, [facility] [place] [facility] [address] [id number] [place] [address] Feb, [facility] [place] [facility] [address] [id number] [place] [address] Feb, [facility] [place] [facility] [address] [id number] [place] [address] Feb, [facility] [address] [id number] [place] [address] January, [facility] [address] [id number] [place] [address] January, [facility] [address] [id number] [place] [address] January, [facility] [address] [id number] [place] [address] January, [facility] [address] [id number] [place] [address] January, [facility] [address] [id number] [place] [address] January, [facility] [address] [id number] [place] [address] January, [facility] [address] [id number] [place] [address] Dec, [facility] [address] [id number] [place] [address] Dec, [facility] [address] [id number] [place] [address] Dec, [facility] [address] [id number] [place] [address] Dec, [facility] [address] [id number] [place] [address] Nov, [facility] [place] [facility] [address] [id number] [place] [address] Nov, [facility] [place] [facility] [address] [id number] [place] [address] Nov, [facility] [address] [id number] [place] [address] Oct, [facility] [address] [id number] [place] [address] Oct, [facility] [address] [id number] [place] [address] Oct, [facility] [address] [id number] [place] [address] Oct, [facility] [address] [id number] [place] [address] Oct, [facility] [address] [id number] [place] [address] 05 Oct, 2012 [facility] [address] [id number] [place] [address] 30 Sep, 2012 [facility] [address] [id number] [place] [address] Sep, [facility] [address] [id number] [place] [address] Sep, [facility] [address] [id number] [place] [address] Sep, [facility] [address] [facility] [id number] [place] [address] Sep, [facility] [address] [id number] [place] [address] Aug, [facility] [address] [id number] [place] [address] Aug, [facility] [address] [id number] [place] [address] Aug, [facility] [address] [id number] [place] [address] Aug, [facility] [address] [id number] [place] [address] Aug, [facility] [place] [facility] [address] [id number] [place] [address] Aug, [facility] [place] [facility] [address] [id number] [place] [address] Jul, [facility] [place] [facility] [address] [id number] [place] [address] Jul, [facility] [place] [facility] [address] [id number] [place] [address] Jul, [facility] [place] [facility] [address] [id number] [place] [address] Jul, [facility] [place] [facility] [address] [id number] [place] [address] Jul, [facility] [place] [facility] [address] [id number] [place] [address] Jul, [facility] [place] [facility] [address] [id number] [place] [address] Jul, [facility] [place] [facility] [address] [id number] [place] [address]- [address] 15 Jul, 2012 [facility] [place] [facility] [address] [id number] [place] [address] 14 Jul, 2012 [facility] [place] [facility] [address] [id number] [place] [address] Jul, [facility] [place] [facility] [address] [id number] [place] [address] Jul, [facility] [place] [facility] [address] [id number] [place] [address] Jul, [facility] [place] [facility] [address] [id number] [place] [address] Jul, [facility] [place] [facility] [address] [id number] [place] [address]- [address] 08 Jul, 2012 [facility] [place] [facility] [address] [id number] [place] [address] Jul, [facility] [place] [facility] [address] [id number] [place] [address] 2546 08 Jul, 2012 [facility] [place] [facility] [address] [id number] [place] [address]- [address] Jul, [facility] [place] [facility] [address] [facility] [id number] [place] [address]- [address] Jul, [facility] [place] [facility] [address] [id number] [place] [address] Jul, [facility] [place] [facility] [address] [id number] [place] [address] 2546 Jun, [facility] [place] [facility] [address] [id number] [place] [address] 2546 Jun, [facility] [place] [facility] [address] [facility] [id number] [place] [address] May, [facility] [place] [facility] [address] [id number] [address] Apr, [facility] [place] [facility] [address] [id number], [place] [address] Mar, [facility] [place] [facility] [address] [facility] [id number], [place] [address] 25[address] Feb, [facility] [place] [facility] [address] [facility] [id number], [place] [address] Feb, [facility] [place] [facility] [address] [id number], [place] [address] Feb, [facility] [place] [facility] [address] [id number] [place] [address] January, [facility] [place] [facility] [address] [facility] [id number], [place] [address] 25[address] January, [facility] [place] [facility] [address] [facility] [id number][place] [address] Dec, [facility] [place] [facility] [address] [id number] [place] [address]- [address] 25 Dec, 2011 [facility] [place] [facility] [address] [id number] [place] [address] 08 Nov, 2011 [facility] [place] [facility] [address] [id number] [place] [address]- [address] 12 Aug, 2011 [facility] [place] [facility] [address] [id number] [place] [address]- [address] 16 Jul, 2011 [facility] [place] [facility] [address] [id number] [place] [address]- [address] 16 Jul, 2011 [facility] [place] [facility] [address] [id number] [place] [address]- 244[address] 16 Jul, 2011 [facility] [place] [facility] [address] [id number] [place] [address]- 9408 12 Jun, 2011 [facility] [place] [facility] [address] [id number] [place] [address]- [address]233 12 Jun, 2011 [facility] [place] [facility] [address] [id number] [place] [address]- [address]19 14 May, 2011 [facility] [place] [facility] [address] [id number] [place] [address]- [address] 10 Apr, 2011 [facility] [place] [facility] [address] [id number] [place] [address]- 6[address] January, [facility] [place] [facility] [address] [id number] [place] [address]- [address]106 13 Dec, 2010 [facility] [place] [facility] [address] [id number] [place] [address]- 8215 16 Nov, 2010 [facility] [place] [facility] [address] [id number] [place] [address]- 5666 10 Oct, 2010 [facility] [place] [facility] [address] [id number] [place] [address]- [address]87 14 Jun, 2010 [facility] [place] [facility] [address] [id number] [place] [address]- [address]796 Jun, [facility] [address] [facility] [id number], [place] [address]46 Oct, [facility] [address] [id number], [place] [address] Aug, [facility] [address] [id number], [place] [address] Jul, [facility] [address] [id number], [place] [address] Dec, IMMUNIZATIONS No Known Immunizations SOCIAL HISTORY Never Assessed REASON FOR VISIT Requests return call PLAN OF CARE VITAL SIGNS MEDICATIONS No [...]
--- OUTSIDE RECORDS SUMMARY | 2018-12-13 17:51 | XMS REPORT ---
Author Author CARLOS TRACY [facility] W[facility] IN [facility] Address [address] [place] [address] Care Team Providers Care [employer] Name Role Phone CARLOS TRACY Unavailable PROBLEMS Type Condition ICD9-CM Code ERW23-LS Code Onset Dates Condition Status SNOMED Code Problem Depression, unspecified depression type F32.9 Active 06819539 Problem Seasonal allergic rhinitis, unspecified allergic rhinitis trigger J30.2 Active 988396047 Problem Irregular periods/menstrual cycles N92.6 Active 22014879 Problem Seasonal allergies J30.2 Active 921873099 Problem Missed period N92.6 Active 43751958 Problem Other headache syndrome G44.89 Active 761508150 Problem Anemia, O90.81 Active 143231400 Problem DANIELLA (generalized anxiety disorder) F41.1 Active 49206899 Problem Dysthymic disorder F34.1 Active 07587717 ALLERGIES No Information ENCOUNTERS Encounter Location Date Diagnosis [facility] [id number] [place] [address] 04403 -3681 Mar, Pain of left calf M79.662 and Muscle spasm of left calf M62.831 [place] [id number] [place] [address] 65887- 9152 Mar, care in second trimester Z34.92 [facility] [id number] [place] [address] 76025- 0087 Mar, Bilateral impacted cerumen H61.23 [place] [address] 60367- 8258 Feb, [facility] [id number] [place] [address] 39589 -3296 Feb, [facility] [address] 99622- 8550 20 Feb, 2018 Normal in multigravida Z34.80 [facility] [id number] [place] [address] 23976- 1817 13 Feb, 2018 Painful urination R30.9 and Encounter for supervision of normal in second trimester Z34.92 [facility] [id number] [place] [address] 22681 -8091 07 Feb, 2018 Seasonal allergies J30.2 [facility] [id number] [place] [address] 85780- 9850 Feb, [place] [address] 44603- 0552 Feb, [facility] [id number] [place] [address] 62776 -3801 January, Seasonal allergic rhinitis, unspecified trigger J30.2 [facility] [id number] [place] [address] 19042 -8678 January, [facility] [id number] [place] [address] 52652 -7944 January, Viral gastroenteritis A08.4 [facility] [id number] [place] [address] 58385- 7824 January, [facility] [id number] [place] [address] 33766- 9004 January, care in first trimester Z34.91 [facility] [id number] [place] [address] 57429- 2126 January, [facility] [id number] [place] [address] 85212 -7521 January, Left ankle pain, unspecified chronicity M25.572 [facility] [id number] [place] [address] 90839- 4524 January, [facility] [address] 85247- 4981 January, Dysthymic disorder F34.1 and DANIELLA (generalized anxiety disorder) F41.1 [facility] IN [facility] [address] 44108 -0972 January, Impacted cerumen of both ears H61.23 [facility] [id number] [place] [address] 32587- 3271 Dec, [facility] [address] 66341- 4514 Dec, in multigravida Z34.80 [place] [address] 08375- 4238 Dec, DANIELLA (generalized anxiety disorder) F41.1 and Dysthymic disorder F34.1 [facility] [address] 04569- 2518 Dec, [facility] [address] 02990- 2406 Nov, [place] [address] 56433- 1686 Nov, [place] [address] 55743- 6201 Nov, Painful urination R30.9 ; Vaginal yeast infection B37.3 and Early stage of Z34.90 [place] [id number] [place] [address] 18056- 3331 Nov, in multigravida Z34.80 [place] [id number] [place] [address] 85569- 0803 Nov, Dysfunction of right eustachian tube H69.81 and Bilateral impacted cerumen H61.23 [facility] [id number] [place] [address] 65643- 4889 Nov, [facility] [address] 54915- 9334 Nov, [facility] [id number] [place] [address] 79820- 4949 Nov, [facility] [id number] [place] [address] 69153 -5520 Nov, Missed period N92.6 [facility] [id number] [place] [address] 84640- 6712 Sep, DANIELLA (generalized anxiety disorder) F41.1 and Dysthymic disorder F34.1 [facility] [id number] [place] [address] 90756 -1608 Aug, Acute nasopharyngitis J00 [place] [address] 86560- 9397 Jul, Irregular periods/menstrual cycles N92.6 [place] [address] 78489- 7201 Jul, Bilateral impacted cerumen H61.23 [place] [address] 37912- 0696 Jul, DANIELLA (generalized anxiety disorder) F41.1 and Dysthymic disorder F34.1 [place] [id number] [place] [address] 73498- 4957 Jun, [place] [id number] [place] [address] 52756- 2796 Jun, Dysthymic disorder F34.1 [place] [id number] [place] [address] 92672- 3610 Jun, Anemia, O90.81 ; Lower abdominal pain R10.30 ; Allergic contact dermatitis due to adhesives L23.1 and Other headache syndrome G44.89 [place] [id number] [place] [address] 00192- 4692 Jun, 39 weeks gestation of Z3A.39 [place] [address] 09267- 6834 27 May, 2017 care in third trimester Z34.93 [facility] [address] 35648 -0217 24 May, 2017 Acute seasonal allergic rhinitis, unspecified trigger J30.2 [place] [address] 84463- 3586 20 May, 2017 Normal in multigravida Z34.80 [facility] [address] 67487 -7204 17 May, 2017 Urinary frequency R35.0 and Pain of round ligament N94.9 [place] [address] 21450- 0064 13 May, 2017 35 weeks gestation of Z3A.[address] 20381- 7316 Apr, High risk sexual behavior Z72.51 and 33 weeks gestation of Z3A.33 [place] [address] 98522- 2230 Apr, care in third trimester Z34.93 [facility] [place] [address] 63850 -6484 Apr, Bilateral impacted cerumen H61.23 [place] [address] 10033- 0258 Apr, 30 weeks gestation of Z3A.30 and Encounter for immunization Z23 [place] [address] 86229- 0704 Mar, 28 weeks gestation of Z3A.28 [place] [address] 74370- 2122 Mar, [place] [address] 82826- 0148 Mar, [place] [id number] [place] [address]- 9200 13 Mar, 2017 [place] [id number] [place] [address] 16056- 5317 Mar, 26 weeks gestation of Z3A.26 [facility] [id number] [place] [address] 26352 -4665 03 Mar, 2017 Acute back pain M54.[address] 27160- 3252 28 Feb, 2017 24 weeks gestation of Z3A.24 [facility] [address] [place] [address] 12751 -6390 27 Feb, 2017 Lower abdominal pain R10.30 [facility] [address] [place] [id number] [place] [address] 77559 -0523 Feb, Gastroenteritis and colitis, viral A08.[address] 44903- 2606 14 Feb, 2017 care in second trimester Z34.92 [place] [id number] [place] [address] 17208- 7532 07 Feb, 2017 [facility] [place] [address] [id number] [place] [address] 09569 -8094 04 Feb, 2017 Abscess L02.91 [facility] [address] [id number] [place] [address] 66575 -4954 Feb, Vaginal flavia B37.3 [place] [id number] [place] [address] 72068- 1269 January, 20 weeks gestation of Z3A.[address] 81938- 9745 January, [facility] [address] [place] [id number] [place] [address] 28593 -6129 January, Seasonal allergic rhinitis, unspecified allergic rhinitis trigger J30.2 [facility] [address] [place] [id number] [place] [address] 32222 -5572 January, Dermatitis L30.9 and Bug bites, initial encounter W57.XXXA [place] [id number] [place] [address] 10712- 7082 January, Sore throat J02.9 and Seasonal allergic rhinitis, unspecified allergic rhinitis trigger J30.[address] 84552- 3722 January, 16 weeks gestation of Z3A.[address] 60943- 2254 Dec, care in first trimester Z34.[address] 38445- 0128 Nov, care in first trimester Z34.91 and Normal in multigravida Z34.80 [facility] IN [id number] [place] [address] 15980 -3323 Oct, Nausea and vomiting during O21.[address] 45316- 9334 Oct, [place] [id number] [place] [address] 66749- 8859 Oct, [address] 78514- 3509 Oct, Encounter for test, result unknown Z32.00 [place] [id number] [place] [address] 47945- 6321 Sep, Irregular periods/menstrual cycles N92.6 ; Sore throat J02.9 ; Nausea R11.0 and Right ear impacted cerumen H61.21 [facility] [id number] [place] [address] 99084 -0420 Jul, Vaginal discharge N89.8 ; Other specified bacterial agents as the cause of diseases classified elsewhere B96.89 and Acute vaginitis N76.0 [facility] [id number] [place] [address] 83048- 6704 10 Jun, 2016 Depression, unspecified depression type F32.9 [facility] [id number] [place] [address] 09513- 2402 23 May, 2016 Vaginal candidiasis B37.3 [place] [address] 52173- 6841 20 May, 2016 Acute pharyngitis, unspecified etiology J02.9 [place] [id number] [place] [address] 40567- 9034 19 May, 2016 Depression, unspecified depression type F32.9 [place] [id number] [place] [address] 76203- 3383 12 May, 2016 Depression, unspecified depression type F32.9 [place] [id number] [place] [address] 71598- 6138 12 May, 2016 Dysthymic disorder F34.1 [facility] [address] [place] [id number] [place] [address] 57923 -7425 Apr, Acute suppurative otitis media of right ear without spontaneous rupture of tympanic membrane, recurrence not specified H66.001 [facility] [id number] [place] [address] 92510 -0132 Mar, Herpes zoster without complication B02.9 [facility] [id number] [place] [address] 37587 -5173 Dec, Allergic rhinitis J30.9 [facility] [address] [place] [id number] [place] [address] 01146 -0136 Dec, Lumbago M54.5 [facility] [id number] [place] [address] 06392 -8850 18 Oct, 2015 Dysuria R30.0 and Urinary tract infection N39.0 [facility] [id number] [place] [address] -0201 Sep, Acute nasopharyngitis J00 and Strep pharyngitis J02.0 [place] [id number] [place] [address] 04382- 8471 Jul, Upper respiratory tract infection, unspecified type J06.9 [place] [id number] [place] [address] 67846- 0892 Jun, Irritable bowel syndrome without diarrhea K58.9 [place] [id number] [place] [address] 07643- 7686 Jun, [place] [address] 67086- 2620 May, [place] [address] 54594- 7722 May, [place] [address] 65222- 9865 May, Otitis externa of left ear 380.10 [place] [address] 93118- 5738 May, Pain in joint, ankle and foot 719.47 [place] [id number] [place] [address] 70371- 6963 Apr, Pain in joint, ankle and foot 719.47 [place] [address] 75025- 2465 Mar, Dysuria 788.1 and Incontinence in female 625.6 [place] [address] 74100- 8441 30 Feb, 2015 Plantar fasciitis of right foot 728.71 ; Ankle weakness 719.67 and Ankle pain, chronic 719.47 [place] [id number] [place] [address] 77952- 6720 Feb, [place] [address] 94125- 2612 Feb, Belching 787.3 and Chest wall pain 786.52 [facility] [address] [id number] [place] [address]- 0686 14 Dec, 2014 [facility] [address] [id number] [place] [address]- 3356 Dec, [facility] [address] [id number] [place] [address]- 9011 16 Nov, 2014 [facility] [address] [id number] [place] [address]- 8318 Nov, [facility] [address] [id number] [address]- 7131 Sep, [facility] [address] [facility] [id number] [place] [address]- 6658 Sep, [facility] [id number] [place] [address]- 4117 Sep, [facility] [address] [id number] [place] [address]- 0798 Sep, [facility] [address] [place] [address]- 2328 Aug, [facility] [address] [id number] [address]- 9158 30 Aug, 2014 [facility] [address] [facility] [id number] [place] [address]- 9373 Aug, [facility] [address] [id number] [place] [address]- 6007 Aug, [facility] [address] [facility] [id number] [place] [address]- 9223 Aug, [facility] [address] [facility] [id number] [place] [address]- 1576 04 Aug, 2014 [facility] [address] [id number] [place] [address]- 0574 Aug, [facility] [place] [facility] [address] [id number] [place] [address]- 3712 Aug, [facility] [place] [facility] [address] [id number] [place] [address]- 4342 Aug, [facility] [place] [facility] [address] [id number] [place] Aug, [facility] [place] [facility] [address] [id number] [place] [address]- 0418 Aug, [facility] [place] [facility] [address] [id number] [place] [address]- 6922 Aug, [facility] [place] [facility] [address] [id number] [place] [address]- 4466 Aug, [facility] [place] [facility] [address] [id number] [place] [address]- 3258 Aug, [facility] [place] [facility] [address] [id number] [place] [address]- 0154 Jul, [facility] [place] [facility] [address] [id number] [place] [address]- 9836 Jul, [facility] [place] [facility] [address] [id number] [place] [address]- 5612 Jul, [facility] [place] [facility] [address] [id number], [place] [address]- 6398 Jul, [facility] [place] [facility] [address] [id number], [place] [address]- 2016 Jul, [facility] [place] [facility] [address] [id number] [place] [address]- 9705 Jul, [facility] [place] [facility] [address] [id number], [place] [address]- 8304 Jul, [facility] [place] [facility] [address] [id number] [place] [address]- 8041 Jun, [facility] [place] [facility] [address] [id number] [place] [address]- 2274 Jun, [facility] [place] [facility] [address] [id number] [place] [address]- 2635 Jun, [facility] [place] [facility] [address] [id number] [place] [address]- 3551 Jun, [facility] [place] [facility] [address] [id number] [place] [address]- 2436 Jun, [facility] [place] [facility] [address] [id number] [place] [address]- 5133 Jun, [facility] [place] [facility] [address] [id number] [place] [address]- 2676 Jun, [facility] [place] [facility] [address] [id number] [place] [address]- 0502 Jun, [facility] [place] [facility] [address] [id number] [place] [address]- 6223 Jun, [facility] [place] [facility] [address] [id number] [place] [address]- 2511 Jun, [facility] [place] [facility] [address] [id number] [place] [address]- 5849 Jun, [facility] [place] [facility] [address] [id number] [place] [address]- 2210 Jun, [facility] [place] [facility] [address] [id number] [place] [address]- 2111 Jun, [facility] [place] [facility] [address] [id number] [place] [address]- 7494 Jun, [facility] [place] [facility] [address] [id number] [place] [address]- 0723 May, [facility] [place] [facility] [address] [id number] [place] [address]- 8605 May, [facility] [place] [facility] [address] [id number] [place] [address]- 3259 May, [facility] [place] [facility] [address] [id number] [place] [address]- 8569 May, [facility] [place] [facility] [address] [id number] [place] [address]- 1724 May, [facility] [place] [facility] [address] [id number] [place] [address]- 6792 Apr, [facility] [place] [facility] [address] [id number] [place] [address]- 9402 Apr, [facility] [place] [facility] [address] [id number] [place] [address]- 3451 Apr, [facility] [place] [facility] [address] [id number] [place] [address]- 3087 Apr, [facility] [place] [facility] [address] [id number] [place] [address]- 1380 Mar, [facility] [place] [facility] [address] [id number] [place] [address]- 4724 Mar, [facility] [place] [facility] [address] [id number] [place] [address]- 0171 Mar, [facility] [place] [facility] [address] [id number] [place] [address]- 2925 Mar, [facility] [place] [facility] [address] [id number] [place] [address]- 4659 Mar, [facility] [place] [facility] [address] [id number] [place] [address]- 0343 Mar, [facility] [place] [facility] [address] [id number] [place] [address]- 1616 Mar, [facility] [place] [facility] [address] [id number] [place] [address]- 4770 Mar, [facility] [place] [facility] [address] [id number] [place] [address]- 0547 Feb, [facility] [place] [facility] [address] [id number] [place] [address]- 8732 Feb, [facility] [place] [facility] [address] [id number] [place] [address]- 6182 Feb, [facility] [place] [facility] [address] [id number] [place] [address]- 8034 Feb, [facility] [place] [facility] [address] [id number] [place] [address]- 7167 Feb, [facility] [place] [facility] [address] [id number] [place] [address]- 0057 Feb, [facility] [place] [facility] [address] [id number] [place] [address]- 8776 Feb, [facility] [place] [facility] [address] [id number] [place] [address]- 4635 Feb, [facility] [place] [facility] [address] [id number] [place] [address]- [address] January, [facility] [place] [facility] [address] [id number] [place] [address] January, [facility] [place] [facility] [address] [id number] [place] [address] January, [facility] [place] [facility] [address] [id number] [place] [address] January, [facility] [place] [facility] [address] [id number] [place] [address] January, [facility] [place] [facility] [address] [id number] [place] [address] January, [facility] [place] [facility] [address] [id number] [place] [address] Dec, [facility] [place] [facility] [address] [id number] [place] [address] Dec, [facility] [place] [facility] [address] [id number] [place] [address] Dec, [facility] [place] [facility] [address] [id number] [place] [address] Dec, [facility] [address] [id number] [place] [address] Dec, [facility] [place] [facility] [address] [id number] [place] [address] Dec, [facility] [address] [id number] [place] [address] Dec, [facility] [place] [facility] [address] [id number] [place] [address]60 Dec, [facility] [address] [id number] [place] [address] Oct, [facility] [address] [id number] [place] [address] Oct, [facility] [address] [id number] [place] [address] Aug, [facility] [address] [id number] [place] [address] Aug, [facility] [place] [facility] [address] [id number] [place] [address] Jul, [facility] [address] [id number] [place] [address] Jul, [facility] [place] [facility] [address] [id number] [place] [address] Mar, [facility] [place] [facility] [address] [id number] [place] [address] Mar, [facility] [place] [facility] [address] [id number] [place] [address] Mar, [facility] [place] [facility] [address] [id number] [place] [address] Feb, [facility] [place] [facility] [address] [id number] [place] [address] Feb, [facility] [address] [id number] [place] [address] Feb, [facility] [address] [id number] [place] [address] January, [facility] [address] [id number] [place] [address] January, [facility] [address] [id number] [place] [address] January, [facility] [address] [id number] [place] [address] January, [facility] [address] [id number] [place] [address] January, [facility] [address] [id number] [place] [address] January, [facility] [address] [id number] [place] [address] January, [facility] [address] [id number] [place] [address] Dec, [facility] [address] [id number] [place] [address] Dec, [facility] [address] [id number] [place] [address] Dec, [facility] [place] [facility] [address] [id number] [place] [address] Dec, [facility] [place] [facility] [address] [id number] [place] [address] Nov, [facility] [place] [facility] [address] [id number] [place] [address] Nov, [facility] [place] [facility] [address] [id number] [place] [address] Nov, [facility] [place] [facility] [address] [id number] [place] [address] 27 Oct, 2012 [facility] [address] [id number] [place] [address] 25 Oct, 2012 [facility] [address] [id number] [place] [address] 20 Oct, 2012 [facility] [address] [id number] [place] [address] 2546 19 Oct, 2012 [facility] [address] [id number] [place] [address] 2542 13 Oct, 2012 [facility] [address] [id number] [place] [address] 05 Oct, 2012 [facility] [address] [id number] [place] [address] 30 Sep, 2012 [facility] [address] [id number] [place] [address] Sep, [facility] [address] [id number] [place] [address] Sep, [facility] [address] [id number] [place] [address] Sep, [facility] [address] [id number] [place] [address] 08 Sep, 2012 [facility] [address] [id number] [place] [address] Aug, [facility] [address] [id number] [place] [address] 2547 Aug, [facility] [address] [id number] [place] [address] Aug, [facility] [address] [id number] [place] [address] Aug, [facility] [address] [id number] [place] [address] Aug, [facility] [place] [facility] [address] [id number] [place] [address] Aug, [facility] [place] [facility] [address] [id number] [place] [address] Jul, [facility] [place] [facility] [address] [id number] [place] [address] Jul, [facility] [place] [facility] [address] [id number] [place] [address] Jul, [facility] [place] [facility] [address] [id number] [place] [address] Jul, [facility] [place] [facility] [address] [id number] [place] [address] Jul, [facility] [place] [facility] [address] [id number] [place] [address] Jul, [facility] [place] [facility] [address] [id number], [place] [address] Jul, [facility] [place] [facility] [address] [id number] [place] [address]204 Jul, [facility] [place] [facility] [address] [facility] [id number], [place] [address] 14 Jul, 2012 [facility] [place] [facility] [address] [facility] [id number], [place] [address] Jul, [facility] [place] [facility] [address] [id number], [place] [address] Jul, [facility] [place] [facility] [address] [id number], [place] [address] Jul, [facility] [place] [facility] [address] [id number], [place] [address] Jul, [facility] [place] [facility] [address] [facility] [id number], [place] [address] Jul, [facility] [place] [facility] [address] [id number], [place] [address] Jul, [facility] [place] [facility] [address] [id number] [place] [address] 08 Jul, 2012 [facility] [place] [facility] [address] [id number] [place] [address] Jul, [facility] [place] [facility] [address] [facility] [id number] [place] [address] 1249 Jul, [facility] [place] [facility] [address] [id number] [place] [address] 9285 Jul, [facility] [place] [facility] [address] [id number] [place] [address]- 0[address] Jun, [facility] [place] [facility] [address] [id number] [place] [address] 2159 Jun, [facility] [place] [facility] [address] [id number] [place] [address] May, [facility] [place] [facility] [address] [facility] [id number] [place] [address] 3110 Apr, [facility] [place] [facility] [address] [id number] [place] [address] Mar, [facility] [place] [facility] [address] [facility] [id number] [place] [address]- 8795 Feb, [facility] [place] [facility] [address] [facility] [id number], [place] [address] Feb, [facility] [place] [facility] [address] [facility] [id number], [place] [address] Feb, [facility] [place] [facility] [address] [id number] [place] [address] 8699 January, [facility] [place] [facility] [address] [facility] [id number] [place] [address]- 0776 January, [facility] [place] [facility] [address] [facility] [id number] [place] [address]- 6774 Dec, [facility] [place] [facility] [address] [id number] [place] [address] 8379 25 Dec, 2011 [facility] [place] [facility] [address] [id number] [place] [address] 3143 08 Nov, 2011 [facility] [place] [facility] [address] [id number] [place] [address]- 9925 12 Aug, 2011 [facility] [place] [facility] [address] [id number] [place] [address]- 5566 16 Jul, 2011 [facility] [place] [facility] [address] [id number] [place] [address]- 3003 16 Jul, 2011 [facility] [place] [facility] [address] [id number] [place] [address]- [address]50 16 Jul, 2011 [facility] [place] [facility] [address] [id number] [place] [address]- 8499 12 Jun, 2011 [facility] [place] [facility] [address] [id number] [place] [address]- 4962 12 Jun, 2011 [facility] [place] [facility] [address] [id number] [place] [address]- 3811 14 May, 2011 [facility] [place] [facility] [address] [id number] [place] [address]- 0804 10 Apr, 2011 [facility] [place] [facility] [address] [id number] [place] [address]- 3624 11 Jan, 2011 [facility] [place] [facility] [address] [id number] [place] [address]- 9303 13 Dec, 2010 [facility] [place] [facility] [address] [id number] [place] [address]- 2289 16 Nov, 2010 [facility] [place] [facility] [address] [id number] [place] [address]- 2673 10 Oct, 2010 [facility] [place] [facility] [address] [id number] [place] [address]- 5836 14 Jun, 2010 [facility] [place] [facility] [address] [id number] [place] [address]659 Jun, [facility] [address] [facility] [id number], [place] [address] 2546 Oct, [facility] [address] [id number], [place] [address] Aug, [facility] [address] [id number], [place] [address] Jul, [facility] [address] [id number], [place] [address] Dec, IMMUNIZATIONS No Known Immunizations SOCIAL [...]
--- OUTSIDE RECORDS SUMMARY | 2018-12-13 17:52 | XMS REPORT ---
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 Role Phone ALAN SUAREZ Unavailable PROBLEMS Type Condition ICD9-CM Code OBG16-FF Code Onset Dates Condition Status SNOMED Code Problem Depression, unspecified depression type F32.9 Active 46030938 Problem Seasonal allergic rhinitis, unspecified allergic rhinitis trigger J30.2 Active 139274831 Problem Irregular periods/menstrual cycles N92.6 Active 66462803 Problem Seasonal allergies J30.2 Active 809178441 Problem Missed period N92.6 Active 49090032 Problem Other headache syndrome G44.89 Active 893369189 Problem Anemia, O90.81 Active 154744746 Problem DANIELLA (generalized anxiety disorder) F41.1 Active 84567948 Problem Dysthymic disorder F34.1 Active 29833596 ALLERGIES No Information ENCOUNTERS Encounter Location Date Diagnosis [facility] [address] [address] Mar, Pain of left calf M79.662 and Muscle spasm of left calf M62.831 [place] [id number] [place] [address] 70882- 6481 Mar, care in second trimester Z34.92 [facility] [id number] [place] [address] 26468- 2745 Mar, Bilateral impacted cerumen H61.23 [place] [address] 02832- 9536 Feb, [facility] [id number] [place] [address] 42679 -8594 Feb, [facility] [address] 81614- 2581 20 Feb, 2018 Normal in multigravida Z34.80 [facility] [id number] [place] [address] 76207- 7718 13 Feb, 2018 Painful urination R30.9 and Encounter for supervision of normal in second trimester Z34.92 [facility] [id number] [place] [address] 88421 -8086 07 Feb, 2018 Seasonal allergies J30.2 [facility] [address] [address]77- 3924 Feb, [place] [address] 57355- 7247 Feb, [facility] [address] [address] January, Seasonal allergic rhinitis, unspecified trigger J30.2 [facility] [address] 98388 [address]1429 January, [facility] [address] 76870 [address]2923 January, Viral gastroenteritis A08.4 [place] [address] 44666- 3904 January, [facility] [id number] [place] [address] 88874- 3685 January, care in first trimester Z34.91 [facility] [id number] [place] [address] 98575- 6678 January, [facility] [id number] [place] [address] 82070 -2729 January, Left ankle pain, unspecified chronicity M25.572 [facility] [id number] [place] [address] 61028- 9195 January, [facility] [id number] [place] [address] 81566- 1206 January, Dysthymic disorder F34.1 and DANIELLA (generalized anxiety disorder) F41.1 [facility] [id number] [place] [address] 05559 -9177 January, Impacted cerumen of both ears H61.23 [facility] [id number] [place] [address] 09213- 1055 Dec, [facility] [address] 63174- 2911 Dec, in multigravida Z34.80 [place] [address] 59325- 2575 Dec, DANIELLA (generalized anxiety disorder) F41.1 and Dysthymic disorder F34.1 [facility] [id number] [place] [address] 31394- 5710 Dec, [facility] [address] 20889- 6473 Nov, [place] [id number] [place] [address] 45328- 5960 Nov, [place] [address] 41454- 7869 Nov, Painful urination R30.9 ; Vaginal yeast infection B37.3 and Early stage of Z34.90 [place] [id number] [place] [address] 46142- 4119 Nov, in multigravida Z34.80 [place] [id number] [place] [address] 78724- 7234 Nov, Dysfunction of right eustachian tube H69.81 and Bilateral impacted cerumen H61.23 [facility] [id number] [place] [address] 59228- 8361 Nov, [facility] [address] 85472- 2317 Nov, [facility] [id number] [place] [address] 52092- 2510 Nov, [facility] [id number] [place] [address] 67829 -3010 Nov, Missed period N92.6 [place] [id number] [place] [address] 19179- 2416 Sep, DANIELLA (generalized anxiety disorder) F41.1 and Dysthymic disorder F34.1 [facility] [id number] [place] [address] 22917 -7806 Aug, Acute nasopharyngitis J00 [place] [address] 16536- 6669 Jul, Irregular periods/menstrual cycles N92.6 [place] [address] 40099- 2688 Jul, Bilateral impacted cerumen H61.23 [place] [id number] [place] [address] 93889- 4716 Jul, DANIELLA (generalized anxiety disorder) F41.1 and Dysthymic disorder F34.1 [place] [id number] [place] [address] 21160- 3237 Jun, [place] [id number] [place] [address] 61182- 2845 Jun, Dysthymic disorder F34.1 [place] [id number] [place] [address] 02887- 6559 Jun, Anemia, O90.81 ; Lower abdominal pain R10.30 ; Allergic contact dermatitis due to adhesives L23.1 and Other headache syndrome G44.89 [place] [id number] [place] [address] 98538- 3713 Jun, 39 weeks gestation of Z3A.39 [place] [address] 14342- 2223 27 May, 2017 care in third trimester Z34.93 [facility] [id number] [place] [address] 16434 -5177 24 May, 2017 Acute seasonal allergic rhinitis, unspecified trigger J30.2 [place] [id number] [place] [address] 01106- 0048 20 May, 2017 Normal in multigravida Z34.80 [facility] [address] 69661 -2030 17 May, 2017 Urinary frequency R35.0 and Pain of round ligament N94.9 [place] [address] 37807- 7711 13 May, 2017 35 weeks gestation of Z3A.35 [place] [address] 69183- 9335 Apr, High risk sexual behavior Z72.51 and 33 weeks gestation of Z3A.33 [place] [address] 35258- 8633 Apr, care in third trimester Z34.93 [facility] [id number] [place] [address] 63852 -6196 Apr, Bilateral impacted cerumen H61.23 [place] [id number] [place] [address] 05758- 7410 Apr, 30 weeks gestation of Z3A.30 and Encounter for immunization Z23 [place] [id number] [place] [address] 26149- 0631 Mar, 28 weeks gestation of Z3A.28 [place] [address] 63671- 0611 Mar, [place] [id number] [place] [address] 12848- 5694 Mar, [place] [address] 81731- 0139 Mar, [place] [id number] [place] [address] 28373- 8557 12 Mar, 2017 26 weeks gestation of Z3A.26 [facility] [id number] [place] [address] 03746 -9019 03 Mar, 2017 Acute back pain M54.[address] 99977- 8507 28 Feb, 2017 24 weeks gestation of Z3A.24 [facility] [address] [place] [address] [place] [address] 40527 -7469 27 Feb, 2017 Lower abdominal pain R10.30 [facility] [address] [place] [address] [place] [address] 21471 -0862 25 Feb, 2017 Gastroenteritis and colitis, viral A08.[address] 09677- 7215 14 Feb, 2017 care in second trimester Z34.92 [place] [id number] [place] [address] 33815- 3429 07 Feb, 2017 [facility] [address] [place] [address] [place] [address] 49774 -9981 04 Feb, 2017 Abscess L02.91 [facility] [place] [id number] [place] [address] 57986 -6772 Feb, Vaginal flavia B37.3 [place] [id number] [place] [address] 18784- 3420 January, 20 weeks gestation of Z3A.20 [place] [address] [place] [address] 95342- 5023 January, [facility] [address] [place] [address] [place] [address] 39592 -9773 January, Seasonal allergic rhinitis, unspecified allergic rhinitis trigger J30.2 [facility] [address] [place], [place] [address] [place] [address] January, Dermatitis L30.9 and Bug bites, initial encounter W57.XXXA [address] 24412- 2066 January, Sore throat J02.9 and Seasonal allergic rhinitis, unspecified allergic rhinitis trigger J30.[address] 20854- 3985 January, 16 weeks gestation of Z3A.16 [place] [address] 88390- 0494 Dec, care in first trimester Z34.[address] 72983- 0333 Nov, care in first trimester Z34.91 and Normal in multigravida Z34.80 [facility] [address] 40891 -7468 Oct, Nausea and vomiting during O21.[address] 39560- 0318 Oct, [place] [address] 93860- 9344 Oct, [address] 75840- 1836 Oct, Encounter for test, result unknown Z32.[address] 62289- 8301 Sep, Irregular periods/menstrual cycles N92.6 ; Sore throat J02.9 ; Nausea R11.0 and Right ear impacted cerumen H61.21 [facility] [address] [place] [id number] [place] [address] 51473 -0390 Jul, Vaginal discharge N89.8 ; Other specified bacterial agents as the cause of diseases classified elsewhere B96.89 and Acute vaginitis N76.0 [place] [id number] [place] [address] 65454- 2025 10 Jun, 2016 Depression, unspecified depression type F32.9 [place] [id number] [place] [address] 27928- 0308 23 May, 2016 Vaginal candidiasis B37.3 [place] [address] 66416- 2203 20 May, 2016 Acute pharyngitis, unspecified etiology J02.9 [place] [id number] [place] [address] 12247- 1429 19 May, 2016 Depression, unspecified depression type F32.9 [place] [id number] [place] [address] 85625- 2601 12 May, 2016 Depression, unspecified depression type F32.9 [place] [id number] [place] [address] 53724- 0704 12 May, 2016 Dysthymic disorder F34.1 [facility] [id number] [place] [address] 67735 -8901 Apr, Acute suppurative otitis media of right ear without spontaneous rupture of tympanic membrane, recurrence not specified H66.001 [facility] [id number] [place] [address] 06213 -2490 Mar, Herpes zoster without complication B02.9 [facility] [id number] [place] [address] 80127 -1021 Dec, Allergic rhinitis J30.9 [facility] [id number] [place] [address] 35457 -8649 Dec, Lumbago M54.5 [facility] [id number] [place] [address] 74245 -1765 18 Oct, 2015 Dysuria R30.0 and Urinary tract infection N39.0 [facility] [id number] [place] [address] 01102 -9862 Sep, Acute nasopharyngitis J00 and Strep pharyngitis J02.0 [place] [id number] [place] [address] 11184- 6585 Jul, Upper respiratory tract infection, unspecified type J06.9 [place] [id number] [place] [address] 95070- 4135 Jun, Irritable bowel syndrome without diarrhea K58.9 [place] [id number] [place] [address] 70100- 0920 Jun, [place] [address] 27752- 1503 May, [place] [id number] [place] [address] 14309- 8981 May, [place] [address] 58260- 6217 May, Otitis externa of left ear 380.10 [place] [id number] [place] [address] 46041- 7865 May, Pain in joint, ankle and foot 719.47 [place] [id number] [place] [address] 28198- 5537 Apr, Pain in joint, ankle and foot 719.47 [place] [id number] [place] [address] 50195- 8990 Mar, Dysuria 788.1 and Incontinence in female 625.6 [place] [id number] [place] [address] 68471- 1793 Feb, Plantar fasciitis of right foot 728.71 ; Ankle weakness 719.67 and Ankle pain, chronic 719.47 [place] [id number] [place] [address] 49523- 4544 Feb, [place] [id number] [place] [address] 66997- 9478 Feb, Belching 787.3 and Chest wall pain 786.52 [facility] [address] [id number] [place] [address]- 8433 14 Dec, [address] [facility] [address] [id number] [place] [address]- 9833 Dec, [facility] [address] [id number] [place] [address]- 4698 16 Nov, [address] [facility] [address] [id number] [place] [address]- 4629 Nov, [facility] [address] [id number] [place] [address], [place] [address]- 7249 Sep, [facility] [address] [facility] [id number] [place] [address]- 9970 Sep, [facility] [address] [id number] [place] [address], [place] [address]- 3613 Sep, [facility] [address] [facility] [id number] [place] [address]- 8376 Sep, [facility] [address] [place] [id number] [place] [address]- 9420 Aug, [facility] [address] [facility] [id number] [place] [address]- 7902 Aug, [facility] [address] [id number] [place] [address]- 2941 Aug, [facility] [address] [facility] [id number] [address]- 1336 Aug, [facility] [address] [facility] [id number] [place]- 6071 Aug, [facility] [address] [facility] [id number] [place] 8288 Aug, [facility] [address] [facility] [id number] 2872 Aug, [facility] [place] [facility] [address] [id number] [place] [address]- 2612 Aug, [facility] [place] [facility] [address] [id number] [place]- 8938 Aug, [facility] [place] [facility] [address] [id number] [place] [address]- 6840 Aug, [facility] [place] [facility] [address] [id number] [place] [address]- 4370 Aug, [facility] [place] [facility] [address] [id number] [place] [address]- 6210 Aug, [facility] [place] [facility] [address] [id number] [place] [address]- 3271 Aug, [facility] [place] [facility] [address] [id number] [place] [address]- 6671 Aug, [facility] [place] [facility] [address] [id number] [place] [address]- 5011 Jul, [facility] [place] [facility] [address] [id number] [place] [address]- 7405 Jul, [facility] [place] [facility] [address] [id number] [place] [address]- 6586 Jul, [facility] [place] [facility] [address] [id number] [place] [address]- 6556 Jul, [facility] [place] [facility] [address] [id number], [place] [address]- 8715 Jul, [facility] [place] [facility] [address] [id number] [place] [address]- 1277 Jul, [facility] [place] [facility] [address] [id number] [place] [address]- 5787 Jul, [facility] [place] [facility] [address] [id number] [place] 9794 Jun, [facility] [place] [facility] [address] [id number] [place] [address]- 2089 Jun, [facility] [place] [facility] [address] [id number] [place] [address]- 8150 Jun, [facility] [place] [facility] [address] [id number] [place] 8152 Jun, [facility] [place] [facility] [address] [id number] [place] [address]- 1673 Jun, [facility] [place] [facility] [address] [id number] [place] [address]- 0410 Jun, [facility] [place] [facility] [address] [id number] [place] [address]- 0998 Jun, [facility] [place] [facility] [address] [id number] [place] [address]- 7813 Jun, [facility] [place] [facility] [address] [id number] [place] [address]- 4139 Jun, [facility] [place] [facility] [address] [id number] [place] [address]- 2605 Jun, [facility] [place] [facility] [address] [id number] [place] [address]- 7614 Jun, [facility] [place] [facility] [address] [id number] [place] [address]- 5341 Jun, [facility] [place] [facility] [address] [id number], [place] [address]- 5549 Jun, [facility] [place] [facility] [address] [id number], [place] [address]- 3071 Jun, [facility] [place] [facility] [address] [id number] [place] [address]- 9384 May, [facility] [place] [facility] [address] [id number] [place] [address]- 1762 May, [facility] [place] [facility] [address] [id number] [place] [address]- 7491 May, [facility] [place] [facility] [address] [id number] [place] [address]- 8484 May, [facility] [place] [facility] [address] [id number] [place] [address]- 8313 May, [facility] [place] [facility] [address] [id number] [place] [address]- 6827 Apr, [facility] [place] [facility] [address] [id number] [place] [address]- 6737 Apr, [facility] [place] [facility] [address] [id number] [place] [address]- 6596 Apr, [facility] [place] [facility] [address] [id number] [place] [address]- 2921 Apr, [facility] [place] [facility] [address] [id number] [place] [address]- 6254 Mar, [facility] [place] [facility] [address] [id number] [place] [address]- 3208 Mar, [facility] [place] [facility] [address] [id number] [place] [address]- 4249 Mar, [facility] [place] [facility] [address] [id number] [place] [address]- 3613 Mar, [facility] [place] [facility] [address] [id number] [place] [address]- 9446 Mar, [facility] [place] [facility] [address] [id number] [place] [address]- 5250 Mar, [facility] [place] [facility] [address] [id number] [place] [address]- 8648 Mar, [facility] [place] [facility] [address] [id number] [place] [address]- 5610 Mar, [facility] [place] [facility] [address] [id number] [place] [address]- 5038 Feb, [facility] [place] [facility] [address] [id number] [place] [address] 8588 Feb, [facility] [place] [facility] [address] [id number] [place] [address]- 0072 Feb, [facility] [place] [facility] [address] [id number] [place] [address]- 3723 Feb, [facility] [place] [facility] [address] [id number] [place] [address]- 9733 Feb, [facility] [place] [facility] [address] [id number] [place] [address] Feb, [facility] [place] [facility] [address] [id number] [place] [address] Feb, [facility] [place] [facility] [address] [id number] [place] [address] Feb, [facility] [place] [facility] [address] [id number] [place] [address] January, [facility] [place] [facility] [address] [id number] [place] [address] January, [facility] [place] [facility] [address] [id number] [place] [address] January, [facility] [place] [facility] [address] [id number] [place] [address] January, [facility] [place] [facility] [address] [id number] [place] [address] January, [facility] [place] [facility] [address] [id number] [place] [address] January, [facility] [place] [facility] [address] [id number] [place] [address] Dec, [facility] [place] [facility] [address] [id number] [place] [address] Dec, [facility] [place] [facility] [address] [id number] [place] [address] Dec, [facility] [place] [facility] [address] [id number] [place] [address] Dec, [facility] [address] [id number] [place] [address] Dec, [facility] [place] [facility] [address] [id number] [place] [address] Dec, [facility] [place] [facility] [address] [id number] [place] [address] Dec, [facility] [place] [facility] [address] [id number] [place] [address] Dec, [facility] [place] [facility] [address] [id number] [place] [address] Oct, [facility] [place] [facility] [address] [id number] [place] [address] Oct, [facility] [address] [id number] [place] [address] Aug, [facility] [place] [facility] [address] [id number] [place] [address] Aug, [facility] [place] [facility] [address] [id number] [place] [address] Jul, [facility] [place] [facility] [address] [id number] [place] [address] Jul, [facility] [place] [facility] [address] [id number] [place] [address] Mar, [facility] [place] [facility] [address] [id number] [place] [address] Mar, [facility] [place] [facility] [address] [id number] [place] [address] Mar, [facility] [place] [facility] [address] [id number] [place] [address] Feb, [facility] [place] [facility] [address] [id number] [place] [address] Feb, [facility] [place] [facility] [address] [id number] [place] [address] Feb, [facility] [address] [id number] [place] [address] January, [facility] [address] [id number] [place] [address] January, [facility] [address] [id number] [place] [address] January, [facility] [address] [id number] [place] [address] January, [facility] [address] [id number] [place] [address] January, [facility] [address] [id number] [place] [address] January, [facility] [address] [id number] [place] [address] January, [facility] [address] [id number] [place] [address] Dec, [facility] [address] [id number] [place] [address] Dec, [facility] [address] [id number] [place] [address] Dec, [facility] [address] [id number] [place] [address] Dec, [facility] [address] [id number] [place] [address] Nov, [facility] [place] [facility] [address] [id number] [place] [address] Nov, [facility] [place] [facility] [address] [id number] [place] [address] Nov, [facility] [address] [id number] [place] [address] Oct, [facility] [address] [id number] [place] [address] Oct, [facility] [address] [id number] [place] [address] Oct, [facility] [address] [id number] [place] [address] Oct, [facility] [address] [id number] [place] [address] Oct, [facility] [address] [id number] [place] [address] 05 Oct, 2012 [facility] [address] [id number] [place] [address] 30 Sep, 2012 [facility] [address] [id number] [place] [address] Sep, [facility] [address] [id number] [place] [address] Sep, [facility] [address] [id number] [place] [address] Sep, [facility] [address] [facility] [id number] [place] [address] Sep, [facility] [address] [id number] [place] [address] Aug, [facility] [address] [id number] [place] [address] Aug, [facility] [address] [id number] [place] [address] Aug, [facility] [address] [id number] [place] [address] Aug, [facility] [address] [id number] [place] [address] Aug, [facility] [place] [facility] [address] [id number] [place] [address] Aug, [facility] [place] [facility] [address] [id number] [place] [address] Jul, [facility] [place] [facility] [address] [id number] [place] [address] Jul, [facility] [place] [facility] [address] [id number] [place] [address] Jul, [facility] [place] [facility] [address] [id number] [place] [address] Jul, [facility] [place] [facility] [address] [id number] [place] [address] Jul, [facility] [place] [facility] [address] [id number] [place] [address] Jul, [facility] [place] [facility] [address] [id number] [place] [address] Jul, [facility] [place] [facility] [address] [id number] [place] [address] 15 Jul, 2012 [facility] [place] [facility] [address] [id number] [place] [address]- [address] 14 Jul, 2012 [facility] [place] [facility] [address] [id number] [place] [address] Jul, [facility] [place] [facility] [address] [id number] [place] [address] Jul, [facility] [place] [facility] [address] [id number] [place] [address] Jul, [facility] [place] [facility] [address] [id number] [place] [address] Jul, [facility] [place] [facility] [address] [id number] [place] [address]- [address] 08 Jul, 2012 [facility] [place] [facility] [address] [id number] [place] [address]- [address] Jul, [facility] [place] [facility] [address] [id number] [place] [address] 08 Jul, 2012 [facility] [place] [facility] [address] [id number] [place] [address]- [address] Jul, [facility] [place] [facility] [address] [facility] [id number] [place] [address]- [address] Jul, [facility] [place] [facility] [address] [id number] [place] [address]- [address] Jul, [facility] [place] [facility] [address] [id number] [place] [address] 25[address] Jun, [facility] [place] [facility] [address] [id number] [place] [address] 2546 Jun, [facility] [place] [facility] [address] [facility] [id number] [place] [address]- [address] May, [facility] [place] [facility] [address] [id number], [place] [address] Apr, [facility] [place] [facility] [address] [id number], [place] [address] Mar, [facility] [place] [facility] [address] [facility] [id number], [place] [address] Feb, [facility] [place] [facility] [address] [facility] [id number], [place] [address] Feb, [facility] [place] [facility] [address] [id number], [place] [address] Feb, [facility] [place] [facility] [address] [id number] [place] [address]- [address] January, [facility] [place] [facility] [address] [facility] [id number], [place] [address] January, [facility] [place] [facility] [address] [facility] [id number], [place] [address]- [address] Dec, [facility] [place] [facility] [address] [id number] [place] [address] 25 Dec, 2011 [facility] [place] [facility] [address] [id number] [place] [address]- [address]68 08 Nov, 2011 [facility] [place] [facility] [address] [id number] [place] [address] 12 Aug, 2011 [facility] [place] [facility] [address] [id number] [place] [address]- [address] 16 Jul, 2011 [facility] [place] [facility] [address] [id number] [place] [address]- [address] 16 Jul, 2011 [facility] [place] [facility] [address] [id number] [place] [address]- 1519 16 Jul, 2011 [facility] [place] [facility] [address] [id number] [place] [address]- [address]19 12 Jun, 2011 [facility] [place] [facility] [address] [id number] [place] [address]- [address]247 12 Jun, 2011 [facility] [place] [facility] [address] [id number] [place] [address]- [address] 14 May, 2011 [facility] [place] [facility] [address] [id number] [place] [address]- [address] 10 Apr, 2011 [facility] [place] [facility] [address] [id number] [place] [address]- [address] January, [facility] [place] [facility] [address] [id number] [place] [address]- [address] 13 Dec, 2010 [facility] [place] [facility] [address] [id number] [place] [address]- 9029 16 Nov, 2010 [facility] [place] [facility] [address] [id number] [place] [address]- 1648 10 Oct, 2010 [facility] [place] [facility] [address] [id number] [place] [address]- 0497 14 Jun, 2010 [facility] [place] [facility] [address] [id number] [place] [address]- 2009 Jun, [facility] [address] [facility] [id number] [address] Oct, [facility] [address] [id number], [place] [address] Aug, [facility] [address] [id number], [place] [address] Jul, [facility] [address] [id number], [place] [address] Dec, IMMUNIZATIONS No Known Immunizations SOCIAL HISTORY Never Assessed REASON FOR VISIT Triage PLAN OF CARE VITAL SIGNS MEDICATIONS No [...]
--- OUTSIDE RECORDS SUMMARY | 2018-12-13 17:52 | XMS REPORT ---
Author Author ZAYRA GOMEZ [facility] Address [address] [place] [address] Care Team Providers Care Patternmaker Pressure Cast Name Role Phone ZAYRA GOMEZ Unavailable PROBLEMS Type Condition ICD9-CM Code [id number] Code Onset Dates Condition Status SNOMED Code Problem Depression, unspecified depression type F32.9 Active 09964755 Problem Seasonal allergic rhinitis, unspecified allergic rhinitis trigger J30.2 Active 191690385 Problem Irregular periods/menstrual cycles N92.6 Active 01400084 Problem Seasonal allergies J30.2 Active 531625778 Problem Missed period N92.6 Active 64222171 Problem Other headache syndrome G44.89 Active 936884483 Problem Anemia, O90.81 Active 039084261 Problem DANIELLA (generalized anxiety disorder) F41.1 Active 83045950 Problem Dysthymic disorder F34.1 Active 17205122 ALLERGIES No Information ENCOUNTERS Encounter Location Date Diagnosis [facility] [address] [address]4 Mar, Pain of left calf M79.662 and Muscle spasm of left calf M62.831 [place] [id number] [place] [address] 81737- 3533 Mar, care in second trimester Z34.92 [facility] [id number] [place] [address] 15712- 8544 Mar, Bilateral impacted cerumen H61.23 [place] [address] 51720- 6145 Feb, [facility] [id number] [place] [address] 01991 -7892 Feb, [facility] [address] 61538- 7768 20 Feb, 2018 Normal in multigravida Z34.80 [facility] [id number] [place] [address] 03084- 6394 13 Feb, 2018 Painful urination R30.9 and Encounter for supervision of normal in second trimester Z34.92 [facility] [id number] [place] [address] 59342 -7758 07 Feb, 2018 Seasonal allergies J30.2 [facility] [address] 67583- 6694 Feb, [place] [address] 80530- 7688 Feb, [facility] [address] 22553 -0264 January, Seasonal allergic rhinitis, unspecified trigger J30.2 [facility] [address] 63637 -4698 January, [facility] [address] 62609 -1612 January, Viral gastroenteritis A08.4 [place] [address] 24335- 6763 January, [facility] [id number] [place] [address] 61773- 1924 January, care in first trimester Z34.91 [facility] [id number] [place] [address] 64607- 6899 January, [facility] [id number] [place] [address] 80436 -7073 January, Left ankle pain, unspecified chronicity M25.572 [facility] [id number] [place] [address] 52860- 3363 January, [facility] [id number] [place] [address] 12018- 0330 January, Dysthymic disorder F34.1 and DANIELLA (generalized anxiety disorder) F41.1 [facility] [id number] [place] [address] 16233 -6450 January, Impacted cerumen of both ears H61.23 [facility] [id number] [place] [address] 83576- 7646 Dec, [facility] [address] 49871- 5405 Dec, in multigravida Z34.80 [place] [address] 91002- 3598 Dec, DANIELLA (generalized anxiety disorder) F41.1 and Dysthymic disorder F34.1 [facility] [id number] [place] [address] 45088- 2876 Dec, [facility] [address] 59880- 4229 Nov, [place] [id number] [place] [address] 44274- 6161 Nov, [place] [address] 11081- 8948 Nov, Painful urination R30.9 ; Vaginal yeast infection B37.3 and Early stage of Z34.90 [place] [id number] [place] [address] 86276- 0919 Nov, in multigravida Z34.80 [place] [id number] [place] [address] 47114- 1137 Nov, Dysfunction of right eustachian tube H69.81 and Bilateral impacted cerumen H61.23 [facility] [id number] [place] [address] 34900- 9540 Nov, [facility] [address] 33611- 7907 Nov, [facility] [id number] [place] [address] 32871- 4914 Nov, [facility] [id number] [place] [address] 37319 -0284 Nov, Missed period N92.6 [place] [id number] [place] [address] 25588- 2855 Sep, DANIELLA (generalized anxiety disorder) F41.1 and Dysthymic disorder F34.1 [facility] [id number] [place] [address] 84624 -1662 Aug, Acute nasopharyngitis J00 [place] [address] 28900- 0437 Jul, Irregular periods/menstrual cycles N92.6 [place] [address] 73026- 4394 Jul, Bilateral impacted cerumen H61.23 [place] [id number] [place] [address] 97837- 0532 Jul, DANIELLA (generalized anxiety disorder) F41.1 and Dysthymic disorder F34.1 [place] [id number] [place] [address] 38935- 5699 Jun, [place] [id number] [place] [address] 96620- 1022 Jun, Dysthymic disorder F34.1 [place] [id number] [place] [address] 95883- 8512 Jun, Anemia, O90.81 ; Lower abdominal pain R10.30 ; Allergic contact dermatitis due to adhesives L23.1 and Other headache syndrome G44.89 [place] [id number] [place] [address] 61684- 2782 Jun, 39 weeks gestation of Z3A.39 [place] [address] 68408- 9635 27 May, 2017 care in third trimester Z34.93 [facility] [id number] [place] [address] 01239 -4518 24 May, 2017 Acute seasonal allergic rhinitis, unspecified trigger J30.2 [place] [id number] [place] [address] 73120- 2832 20 May, 2017 Normal in multigravida Z34.80 [facility] [address] 65170 -9767 17 May, 2017 Urinary frequency R35.0 and Pain of round ligament N94.9 [place] [address] 17534- 7500 13 May, 2017 35 weeks gestation of Z3A.35 [place] [address] 55059- 5377 Apr, High risk sexual behavior Z72.51 and 33 weeks gestation of Z3A.33 [place] [address] 95145- 9201 Apr, care in third trimester Z34.93 [facility] [id number] [place] [address] 03146 -2364 Apr, Bilateral impacted cerumen H61.23 [place] [id number] [place] [address] 02318- 1610 Apr, 30 weeks gestation of Z3A.30 and Encounter for immunization Z23 [place] [id number] [place] [address] 92268- 4198 Mar, 28 weeks gestation of Z3A.28 [place] [address] 71495- 7794 Mar, [place] [id number] [place] [address] 55420- 9893 Mar, [place] [address] 72759- 4698 Mar, [place] [id number] [place] [address] 02970- 7070 12 Mar, 2017 26 weeks gestation of Z3A.26 [facility] [id number] [place] [address] 33516 -8303 03 Mar, 2017 Acute back pain M54.[address] 52695- 0972 28 Feb, 2017 24 weeks gestation of Z3A.24 [facility] [address] [place] [id number] [place] [address] 20706 -7948 27 Feb, 2017 Lower abdominal pain R10.30 [facility] [address] [place] [id number] [place] [address] 34218 -8890 25 Feb, 2017 Gastroenteritis and colitis, viral A08.[address] 22385- 1054 14 Feb, 2017 care in second trimester Z34.92 [place] [id number] [place] [address] 90283- 7787 07 Feb, 2017 [facility] [address] [place] [id number] [place] [address] 43640 -1876 04 Feb, 2017 Abscess L02.91 [facility] [place] [id number] [place] [address] 94412 -7731 Feb, Vaginal flavia B37.3 [place] [id number] [place] [address] 06359- 1526 January, 20 weeks gestation of Z3A.20 [place] [id number] [place] [address] 89943- 2280 January, [facility] [address] [place] [id number] [place] [address] 66268 -9725 January, Seasonal allergic rhinitis, unspecified allergic rhinitis trigger J30.2 [facility] [address] [place], [place] [address] [address]4231 January, Dermatitis L30.9 and Bug bites, initial encounter W57.XXXA [address] 60071- 5079 January, Sore throat J02.9 and Seasonal allergic rhinitis, unspecified allergic rhinitis trigger J30.[address] 78683- 7342 January, 16 weeks gestation of Z3A.16 [place] [address] 10312- 4724 Dec, care in first trimester Z34.[address] 85692- 1873 Nov, care in first trimester Z34.91 and Normal in multigravida Z34.80 [facility] [address] 79587 -5977 Oct, Nausea and vomiting during O21.[address] 72064- 8097 Oct, [place] [address] 59872- 3629 Oct, [address] 57529- 4306 Oct, Encounter for test, result unknown Z32.[address] 98732- 5092 Sep, Irregular periods/menstrual cycles N92.6 ; Sore throat J02.9 ; Nausea R11.0 and Right ear impacted cerumen H61.21 [facility] [address] [place] [id number] [place] [address] 48834 -4746 Jul, Vaginal discharge N89.8 ; Other specified bacterial agents as the cause of diseases classified elsewhere B96.89 and Acute vaginitis N76.0 [place] [id number] [place] [address] 90286- 4459 10 Jun, 2016 Depression, unspecified depression type F32.9 [place] [id number] [place] [address] 79600- 3273 23 May, 2016 Vaginal candidiasis B37.3 [place] [address] 60525- 6607 20 May, 2016 Acute pharyngitis, unspecified etiology J02.9 [place] [id number] [place] [address] 20518- 4687 19 May, 2016 Depression, unspecified depression type F32.9 [place] [id number] [place] [address] 20043- 9083 12 May, 2016 Depression, unspecified depression type F32.9 [place] [id number] [place] [address] 28359- 0981 12 May, 2016 Dysthymic disorder F34.1 [facility] [id number] [place] [address] 71011 -6128 Apr, Acute suppurative otitis media of right ear without spontaneous rupture of tympanic membrane, recurrence not specified H66.001 [facility] [id number] [place] [address] 15196 -8548 Mar, Herpes zoster without complication B02.9 [facility] [id number] [place] [address] 09943 -6097 Dec, Allergic rhinitis J30.9 [facility] [id number] [place] [address] 50464 -9068 Dec, Lumbago M54.5 [facility] [id number] [place] [address] 17934 -1615 18 Oct, 2015 Dysuria R30.0 and Urinary tract infection N39.0 [facility] [id number] [place] [address] 12156 -8242 Sep, Acute nasopharyngitis J00 and Strep pharyngitis J02.0 [place] [id number] [place] [address] 72363- 3255 Jul, Upper respiratory tract infection, unspecified type J06.9 [place] [id number] [place] [address] 74911- 9507 Jun, Irritable bowel syndrome without diarrhea K58.9 [place] [id number] [place] [address] 97865- 0859 Jun, [place] [address] 27290- 9450 May, [place] [id number] [place] [address] 98511- 1453 May, [place] [address] 17923- 0392 May, Otitis externa of left ear 380.10 [place] [id number] [place] [address] 37967- 6313 May, Pain in joint, ankle and foot 719.47 [place] [id number] [place] [address] 83720- 0774 Apr, Pain in joint, ankle and foot 719.47 [place] [id number] [place] [address] 39176- 1247 Mar, Dysuria 788.1 and Incontinence in female 625.6 [place] [id number] [place] [address] 47609- 2056 Feb, Plantar fasciitis of right foot 728.71 ; Ankle weakness 719.67 and Ankle pain, chronic 719.47 [place] [id number] [place] [address] 90557- 7671 Feb, [place] [id number] [place] [address] 98967- 0995 Feb, Belching 787.3 and Chest wall pain 786.52 [facility] [address] [id number] [place] [address]- 0551 14 Dec, 2014 [facility] [address] [id number] [place] [address]- 7345 Dec, [facility] [address] [id number] [place] [address]- 1364 16 Nov, 2014 [facility] [address] [id number] [place] [address]- 8255 Nov, [facility] [address] [id number] [place] [address], [place] [address]- 1191 Sep, [facility] [address] [facility] [id number] [place] [address]- 1455 Sep, [facility] [address] [id number] [place] [address], [place] [address]- 5217 Sep, [facility] [address] [facility] [id number] [place] [address]- 6103 Sep, [facility] [address] [place] [address] [id number] [address]- 9940 Aug, [facility] [address] [facility] [id number] [place] [address]- 8240 Aug, [facility] [address] [id number] [place] [address]- 2267 Aug, [facility] [address] [facility] [id number], [place] [address]- 2794 Aug, [facility] [address] [facility] [id number] [place] 0965 Aug, [facility] [address] [facility] [id number] [place] 5218 Aug, [facility] [address] [facility] [id number][place] 6670 Aug, [facility] [place] [facility] [address] [id number] [place] [address]- 9024 Aug, [facility] [place] [facility] [address] [id number] [place] 4550 Aug, [facility] [place] [facility] [address] [id number] [place] [address]- 3833 Aug, [facility] [place] [facility] [address] [id number] [place] [address]- 8812 Aug, [facility] [place] [facility] [address] [id number] [place] [address]- 8791 Aug, [facility] [place] [facility] [address] [id number] [place] [address]- 7336 Aug, [facility] [place] [facility] [address] [id number] [place] [address]- 6122 Aug, [facility] [place] [facility] [address] [id number] [place] [address]- 8282 Jul, [facility] [place] [facility] [address] [id number] [place] [address]- 7187 Jul, [facility] [place] [facility] [address] [id number] [place] [address]- 2419 Jul, [facility] [place] [facility] [address] [id number] [place] [address]- 2736 Jul, [facility] [place] [facility] [address] [id number], [place] [address]- 0125 Jul, [facility] [place] [facility] [address] [id number] [place] [address]- 4792 Jul, [facility] [place] [facility] [address] [id number] [place] [address]- 9820 Jul, [facility] [place] [facility] [address] [id number] [place] 4620 Jun, [facility] [place] [facility] [address] [id number] [place] [address]- 6522 Jun, [facility] [place] [facility] [address] [id number] [place] [address]- 5461 Jun, [facility] [place] [facility] [address] [id number] [place] 5101 Jun, [facility] [place] [facility] [address] [id number] [place] [address]- 9748 Jun, [facility] [place] [facility] [address] [id number] [place] [address]- 9920 Jun, [facility] [place] [facility] [address] [id number] [place] [address]- 0510 Jun, [facility] [place] [facility] [address] [id number] [place] [address]- 6131 Jun, [facility] [place] [facility] [address] [id number] [place] [address]- 0238 Jun, [facility] [place] [facility] [address] [id number] [place] [address]- 3667 Jun, [facility] [place] [facility] [address] [id number] [place] [address]- 2146 Jun, [facility] [place] [facility] [address] [id number] [place] [address]- 8893 Jun, [facility] [place] [facility] [address] [id number], [place] [address]- 4797 Jun, [facility] [place] [facility] [address] [id number], [place] [address]- 2026 Jun, [facility] [place] [facility] [address] [id number] [place] [address]- 1863 May, [facility] [place] [facility] [address] [id number] [place] [address]- 5961 May, [facility] [place] [facility] [address] [id number] [place] [address]- 9643 May, [facility] [place] [facility] [address] [id number] [place] [address]- 0125 May, [facility] [place] [facility] [address] [id number] [place] [address]- 3416 May, [facility] [place] [facility] [address] [id number] [place] [address]- 8099 Apr, [facility] [place] [facility] [address] [id number] [place] [address]- 8839 Apr, [facility] [place] [facility] [address] [id number] [place] [address]- 9882 Apr, [facility] [place] [facility] [address] [id number] [place] [address]- 7769 Apr, [facility] [place] [facility] [address] [id number] [place] [address]- 6163 Mar, [facility] [place] [facility] [address] [id number] [place] [address]- 0484 Mar, [facility] [place] [facility] [address] [id number] [place] [address]- 4694 Mar, [facility] [place] [facility] [address] [id number] [place] [address]- 1970 Mar, [facility] [place] [facility] [address] [id number] [place] [address]- 9939 Mar, [facility] [place] [facility] [address] [id number] [place] [address]- 3681 Mar, [facility] [place] [facility] [address] [id number] [place] [address]- 3740 Mar, [facility] [place] [facility] [address] [id number] [place] [address]- 9030 Mar, [facility] [place] [facility] [address] [id number] [place] [address]- 7369 Feb, [facility] [place] [facility] [address] [id number] [place] 5654 Feb, [facility] [place] [facility] [address] [id number] [place] [address]- 0023 Feb, [facility] [place] [facility] [address] [id number] [place] [address]- 0278 Feb, [facility] [place] [facility] [address] [id number] [place] [address]- 6669 Feb, [facility] [place] [facility] [address] [id number] [place] [address]- 4835 Feb, [facility] [place] [facility] [address] [id number] [place] [address]- 8284 Feb, [facility] [place] [facility] [address] [id number] [place] [address]- 9958 Feb, [facility] [place] [facility] [address] [id number] [place] [address]- 0997 January, [facility] [place] [facility] [address] [id number] [place] [address] January, [facility] [place] [facility] [address] [id number] [place] [address] January, [facility] [place] [facility] [address] [id number] [place] [address] January, [facility] [place] [facility] [address] [id number] [place] [address] January, [facility] [place] [facility] [address] [id number] [place] [address] January, [facility] [place] [facility] [address] [id number] [place] [address] Dec, [facility] [place] [facility] [address] [id number] [place] [address] Dec, [facility] [place] [facility] [address] [id number] [place] [address] Dec, [facility] [place] [facility] [address] [id number] [place] [address] Dec, [facility] [address] [id number] [place] [address] Dec, [facility] [place] [facility] [address] [id number] [place] [address] Dec, [facility] [place] [facility] [address] [id number] [place] [address] Dec, [facility] [place] [facility] [address] [id number] [place] [address] Dec, [facility] [place] [facility] [address] [id number] [id number] [address] Oct, [facility] [place] [facility] [address] [id number] [place] [address] Oct, [facility] [address] [id number] [place] [address] Aug, [facility] [place] [facility] [address] [id number] [place] [address] Aug, [facility] [place] [facility] [address] [id number] [place] [address] Jul, [facility] [place] [facility] [address] [id number] [place] [address] Jul, [facility] [place] [facility] [address] [id number] [place] [address] Mar, [facility] [place] [facility] [address] [id number] [place] [address] Mar, [facility] [place] [facility] [address] [id number] [place] [address] Mar, [facility] [place] [facility] [address] [id number] [place] [address] Feb, [facility] [place] [facility] [address] [id number] [place] [address] Feb, [facility] [place] [facility] [address] [id number] [place] [address] Feb, [facility] [address] [id number] [place] [address] January, [facility] [address] [id number] [place] [address] January, [facility] [address] [id number] [place] [address] January, [facility] [address] [id number] [place] [address] January, [facility] [address] [id number] [place] [address] January, [facility] [address] [id number] [place] [address] January, [facility] [address] [id number] [place] [address] January, [facility] [address] [id number] [place] [address] Dec, [facility] [address] [id number] [place] [address] Dec, [facility] [address] [id number] [place] [address] Dec, [facility] [address] [id number] [place] [address] Dec, [facility] [address] [id number] [place] [address] Nov, [facility] [place] [facility] [address] [id number] [place] [address] Nov, [facility] [place] [facility] [address] [id number] [place] [address] Nov, [facility] [address] [id number] [place] [address]- [address] Oct, [facility] [address] [id number] [place] [address] Oct, [facility] [address] [id number] [place] [address] Oct, [facility] [address] [id number] [place] [address] Oct, [facility] [address] [id number] [place] [address] Oct, [facility] [address] [id number] [place] [address] 05 Oct, 2012 [facility] [address] [id number] [place] [address] 30 Sep, 2012 [facility] [address] [id number] [place] [address] Sep, [facility] [address] [id number] [place] [address] Sep, [facility] [address] [id number] [place] [address] Sep, [facility] [address] [facility] [id number] [place] [address] Sep, [facility] [address] [id number] [place] [address] Aug, [facility] [address] [id number] [place] [address] Aug, [facility] [address] [id number] [place] [address] Aug, [facility] [address] [id number] [place] [address] Aug, [facility] [address] [id number] [place] [address] Aug, [facility] [place] [facility] [address] [id number] [place] [address] Aug, [facility] [place] [facility] [address] [id number] [place] [address] Jul, [facility] [place] [facility] [address] [id number] [place] [address] Jul, [facility] [place] [facility] [address] [id number] [place] [address] Jul, [facility] [place] [facility] [address] [id number] [place] [address]44 Jul, [facility] [place] [facility] [address] [id number] [place] [address] Jul, [facility] [place] [facility] [address] [id number] [place] [address]- [address] Jul, [facility] [place] [facility] [address] [id number] [place] [address] Jul, [facility] [place] [facility] [address] [id number] [place] [address]- [address] 15 Jul, 2012 [facility] [place] [facility] [address] [id number] [place] [address]- [address] 14 Jul, 2012 [facility] [place] [facility] [address] [id number] [place] [address]- [address] Jul, [facility] [place] [facility] [address] [id number] [place] [address] Jul, [facility] [place] [facility] [address] [id number] [place] [address]- [address] Jul, [facility] [place] [facility] [address] [id number] [place] [address] Jul, [facility] [place] [facility] [address] [id number] [place] [address]- [address] 08 Jul, 2012 [facility] [place] [facility] [address] [id number] [place] [address] Jul, [facility] [place] [facility] [address] [id number] [place] [address] 2546 08 Jul, 2012 [facility] [place] [facility] [address] [id number] [place] [address] Jul, [facility] [place] [facility] [address] [facility] [id number] [place] [address]- [address] Jul, [facility] [place] [facility] [address] [id number] [place] [address] Jul, [facility] [place] [facility] [address] [id number] [place] [address] 2546 Jun, [facility] [place] [facility] [address] [id number] [place] [address] 2546 Jun, [facility] [place] [facility] [address] [facility] [id number] [place] [address] May, [facility] [place] [facility] [address] [id number], [place] [address] Apr, [facility] [place] [facility] [address] [id number], [place] [address] Mar, [facility] [place] [facility] [address] [facility] [id number], [place] [address] 2546 Feb, [facility] [place] [facility] [address] [facility] [id number][place] [address] Feb, [facility] [place] [facility] [address] [id number], [place] [address] Feb, [facility] [place] [facility] [address] [id number] [place] [address] January, [facility] [place] [facility] [address] [facility] [id number], [place] [address] 2546 January, [facility] [place] [facility] [address] [facility] [id number][place] [address]- [address] Dec, [facility] [place] [facility] [address] [id number] [place] [address]- [address] 25 Dec, 2011 [facility] [place] [facility] [address] [id number] [place] [address]- [address] 08 Nov, 2011 [facility] [place] [facility] [address] [id number] [place] [address]- [address] 12 Aug, 2011 [facility] [place] [facility] [address] [id number] [place] [address]- [address] 16 Jul, 2011 [facility] [place] [facility] [address] [id number] [place] [address]- [address] 16 Jul, 2011 [facility] [place] [facility] [address] [id number] [place] [address]- [address] 16 Jul, 2011 [facility] [place] [facility] [address] [id number] [place] [address]- [address]698 12 Jun, 2011 [facility] [place] [facility] [address] [id number] [place] [address]- [address] 12 Jun, 2011 [facility] [place] [facility] [address] [id number] [place] [address]- [address] 14 May, 2011 [facility] [place] [facility] [address] [id number] [place] [address]- [address] 10 Apr, 2011 [facility] [place] [facility] [address] [id number] [place] [address] January, [facility] [place] [facility] [address] [id number] [place] [address]39 13 Dec, 2010 [facility] [place] [facility] [address] [id number] [place] [address]- [address] 16 Nov, 2010 [facility] [place] [facility] [address] [id number] [place] [address]- 2969 10 Oct, 2010 [facility] [place] [facility] [address] [id number] [place] [address]- [address] 14 Jun, 2010 [facility] [place] [facility] [address] [id number] [place] [address]- [address] 14 Jun, 2010 [facility] [address] [facility] [id number], [place] [address]46 11 Oct, 2009 [facility] [address] [facility] [id number], [place] [address] Aug, [facility] [address] [facility] [id number][place] [address] Jul, [facility] [address] [facility] [id number], [place] [address] Dec, IMMUNIZATIONS No Known Immunizations SOCIAL HISTORY Never Assessed REASON FOR VISIT OB 4wk f/u -- harry mckeon PLAN OF CARE Activity Details Follow Up 4 Weeks Reason: VITAL SIGNS Height 61 in 2018-02-04 Weight 178.0 lbs 2018-02-04 Temperature 98.0 degrees Fahrenheit 2018-02-04 BMI 33.633 kg/m2 2018-02-04 Blood pressure systolic 116 mmHg 2018-02-04 Blood pressure diastolic 76 mmHg 2018-02-04 MEDICATIONS Medication Instructions Dosage Frequency Start Date End Date Duration Status SudoGest 60 mg Orally every 6 hrs 1 tablet as needed 6h Nov, 05 days Not-Taking Flonase 50 MCG/ACT Nasally Once a day 2 sprays in each nostril 24h Nov, 30 day(s) Not-Taking Diflucan 150 MG 1 tablet Nov, 1 dose Not-Taking Vitamin Not-Taking Zoloft 50 mg Orally Once a day 1 tablet 24h Sep, 30 days Active Unisom Active RESULTS Name Result Date Reference Range UA OB DIP (IN HOUSE) 2018-02-04 Glucose neg Protein trace PROCEDURES Procedure Date Ordered Result Body Site URINE-NO MICRO February 04, 2018 INSTRUCTIONS MEDICATIONS ADMINISTERED No Known [...]
--- OUTSIDE RECORDS SUMMARY | 2018-12-13 17:53 | XMS REPORT ---
Author Author DANIELA ALAN [facility] Address [address] [place] [address] Care Team Providers Care Auto Service Advisor Name Role Phone ALAN SUAREZ Unavailable PROBLEMS Type Condition ICD9-CM Code ZSW84-UB Code Onset Dates Condition Status SNOMED Code Problem Depression, unspecified depression type F32.9 Active 99797780 Problem Seasonal allergic rhinitis, unspecified allergic rhinitis trigger J30.2 Active 546449907 Problem Irregular periods/menstrual cycles N92.6 Active 66899319 Problem Seasonal allergies J30.2 Active 898399733 Problem Missed period N92.6 Active 31222827 Problem Other headache syndrome G44.89 Active 723356842 Problem Anemia, O90.81 Active 301442006 Problem DANIELLA (generalized anxiety disorder) F41.1 Active 54092281 Problem Dysthymic disorder F34.1 Active 44619063 ALLERGIES No Information ENCOUNTERS Encounter Location Date Diagnosis [facility] [address] [address] Mar, Pain of left calf M79.662 and Muscle spasm of left calf M62.831 [place] [id number] [place] [address] 59743- 6127 Mar, care in second trimester Z34.92 [facility] [id number] [place] [address] 91142- 1974 Mar, Bilateral impacted cerumen H61.23 [place] [address] 85166- 9392 Feb, [facility] [id number] [place] [address] 07778 -0954 Feb, [facility] [address] 65427- 9983 20 Feb, 2018 Normal in multigravida Z34.80 [facility] [id number] [place] [address] 25698- 2948 13 Feb, 2018 Painful urination R30.9 and Encounter for supervision of normal in second trimester Z34.92 [facility] [id number] [place] [address] 67786 -8598 07 Feb, 2018 Seasonal allergies J30.2 [facility] [address] 77326- 5399 Feb, [place] [address] 11857- 3686 Feb, [facility] [address] 34103 -9852 January, Seasonal allergic rhinitis, unspecified trigger J30.2 [facility] [address] 17086 -5477 January, [facility] [address] 42231 -2119 January, Viral gastroenteritis A08.4 [place] [address] 64571- 5638 January, [facility] [id number] [place] [address] 05350- 9463 January, care in first trimester Z34.91 [facility] [id number] [place] [address] 47211- 6269 January, [facility] [id number] [place] [address] 94848 -5003 January, Left ankle pain, unspecified chronicity M25.572 [facility] [id number] [place] [address] 01541- 3822 January, [facility] [id number] [place] [address] 31095- 7302 January, Dysthymic disorder F34.1 and DANIELLA (generalized anxiety disorder) F41.1 [facility] [id number] [place] [address] 61076 -7816 January, Impacted cerumen of both ears H61.23 [facility] [id number] [place] [address] 91659- 6022 Dec, [facility] [address] 47499- 4556 Dec, in multigravida Z34.80 [place] [address] 44749- 3743 Dec, DANIELLA (generalized anxiety disorder) F41.1 and Dysthymic disorder F34.1 [facility] [id number] [place] [address] 30769- 8685 Dec, [facility] [address] 19106- 5734 Nov, [place] [id number] [place] [address] 53982- 7485 Nov, [place] [address] 64024- 2214 Nov, Painful urination R30.9 ; Vaginal yeast infection B37.3 and Early stage of Z34.90 [place] [id number] [place] [address] 77907- 3341 Nov, in multigravida Z34.80 [place] [id number] [place] [address] 18473- 9543 Nov, Dysfunction of right eustachian tube H69.81 and Bilateral impacted cerumen H61.23 [facility] [id number] [place] [address] 53000- 5425 Nov, [facility] [address] 65444- 3268 Nov, [facility] [id number] [place] [address] 09237- 7747 Nov, [facility] [id number] [place] [address] 46660 -3577 Nov, Missed period N92.6 [place] [id number] [place] [address] 03446- 1646 Sep, DANIELLA (generalized anxiety disorder) F41.1 and Dysthymic disorder F34.1 [facility] [id number] [place] [address] 79153 -8484 Aug, Acute nasopharyngitis J00 [place] [address] 54373- 3651 Jul, Irregular periods/menstrual cycles N92.6 [place] [address] 93047- 5125 Jul, Bilateral impacted cerumen H61.23 [place] [id number] [place] [address] 80823- 3646 Jul, DANIELLA (generalized anxiety disorder) F41.1 and Dysthymic disorder F34.1 [place] [id number] [place] [address] 94277- 5842 Jun, [place] [id number] [place] [address] 78602- 7795 Jun, Dysthymic disorder F34.1 [place] [id number] [place] [address] 56069- 1106 Jun, Anemia, O90.81 ; Lower abdominal pain R10.30 ; Allergic contact dermatitis due to adhesives L23.1 and Other headache syndrome G44.89 [place] [id number] [place] [address] 05405- 8517 Jun, 39 weeks gestation of Z3A.39 [place] [address] 61412- 4246 27 May, 2017 care in third trimester Z34.93 [facility] [id number] [place] [address] 22461 -7083 24 May, 2017 Acute seasonal allergic rhinitis, unspecified trigger J30.2 [place] [id number] [place] [address] 45724- 3415 20 May, 2017 Normal in multigravida Z34.80 [facility] [address] 11591 -5440 17 May, 2017 Urinary frequency R35.0 and Pain of round ligament N94.9 [place] [address] 94209- 9735 13 May, 2017 35 weeks gestation of Z3A.35 [place] [address] 54041- 6100 Apr, High risk sexual behavior Z72.51 and 33 weeks gestation of Z3A.33 [place] [address] 18583- 2520 Apr, care in third trimester Z34.93 [facility] [id number] [place] [address] 92706 -7221 Apr, Bilateral impacted cerumen H61.23 [place] [id number] [place] [address] 10266- 0595 Apr, 30 weeks gestation of Z3A.30 and Encounter for immunization Z23 [place] [id number] [place] [address] 60521- 4781 Mar, 28 weeks gestation of Z3A.28 [place] [address] 32386- 4823 Mar, [place] [id number] [place] [address] 14272- 1430 Mar, [place] [address] 54438- 7255 Mar, [place] [id number] [place] [address] 98210- 8926 12 Mar, 2017 26 weeks gestation of Z3A.26 [facility] [id number] [place] [address] 91976 -1995 03 Mar, 2017 Acute back pain M54.[address] 92850- 0191 28 Feb, 2017 24 weeks gestation of Z3A.24 [facility] [address] [place] [id number] [place] [address] 78406 -5617 27 Feb, 2017 Lower abdominal pain R10.30 [facility] [address] [place] [id number] [place] [address] 33043 -9834 25 Feb, 2017 Gastroenteritis and colitis, viral A08.[address] 98095- 5776 14 Feb, 2017 care in second trimester Z34.92 [place] [id number] [place] [address] 62866- 3103 07 Feb, 2017 [facility] [address] [place] [id number] [place] [address] 03121 -2141 04 Feb, 2017 Abscess L02.91 [facility] [place] [id number] [place] [address] 17154 -2104 Feb, Vaginal flavia B37.3 [place] [id number] [place] [address] 35102- 3319 January, 20 weeks gestation of Z3A.20 [place] [id number] [place] [address] 99586- 0524 January, [facility] [address] [place] [id number] [place] [address] 36242 -1899 January, Seasonal allergic rhinitis, unspecified allergic rhinitis trigger J30.2 [facility] [address] [place] [address] [address] January, Dermatitis L30.9 and Bug bites, initial encounter W57.XXXA [address] 89563- 5830 January, Sore throat J02.9 and Seasonal allergic rhinitis, unspecified allergic rhinitis trigger J30.[address] 09672- 0134 January, 16 weeks gestation of Z3A.16 [place] [address] 02944- 5053 Dec, care in first trimester Z34.[address] 62908- 2098 Nov, care in first trimester Z34.91 and Normal in multigravida Z34.80 [facility] [address] 7[address]4063 Oct, Nausea and vomiting during O21.[address] 25939- 0492 Oct, [place] [address] 16205- 7973 Oct, [address] 98711- 0700 Oct, Encounter for test, result unknown Z32.[address] 03152- 9417 Sep, Irregular periods/menstrual cycles N92.6 ; Sore throat J02.9 ; Nausea R11.0 and Right ear impacted cerumen H61.21 [facility] [address] [place] [id number] [place] [address] 00238 -9794 Jul, Vaginal discharge N89.8 ; Other specified bacterial agents as the cause of diseases classified elsewhere B96.89 and Acute vaginitis N76.0 [place] [id number] [place] [address] 40279- 2069 10 Jun, 2016 Depression, unspecified depression type F32.9 [place] [id number] [place] [address] 91984- 3705 23 May, 2016 Vaginal candidiasis B37.3 [place] [address] 43337- 9180 20 May, 2016 Acute pharyngitis, unspecified etiology J02.9 [place] [id number] [place] [address] 34001- 2148 19 May, 2016 Depression, unspecified depression type F32.9 [place] [id number] [place] [address] 78027- 9165 12 May, 2016 Depression, unspecified depression type F32.9 [place] [id number] [place] [address] 02714- 4890 12 May, 2016 Dysthymic disorder F34.1 [facility] [id number] [place] [address] 38085 -7117 Apr, Acute suppurative otitis media of right ear without spontaneous rupture of tympanic membrane, recurrence not specified H66.001 [facility] [id number] [place] [address] 40239 -6812 Mar, Herpes zoster without complication B02.9 [facility] [id number] [place] [address] 97236 -9510 Dec, Allergic rhinitis J30.9 [facility] [id number] [place] [address] 43916 -1622 Dec, Lumbago M54.5 [facility] [id number] [place] [address] 66120 -4345 18 Oct, 2015 Dysuria R30.0 and Urinary tract infection N39.0 [facility] [id number] [place] [address] 69680 -6285 Sep, Acute nasopharyngitis J00 and Strep pharyngitis J02.0 [place] [id number] [place] [address] 82074- 1222 Jul, Upper respiratory tract infection, unspecified type J06.9 [place] [id number] [place] [address] 25095- 6519 Jun, Irritable bowel syndrome without diarrhea K58.9 [place] [id number] [place] [address] 40635- 0026 Jun, [place] [address] 35458- 4354 May, [place] [id number] [place] [address] 85056- 3688 May, [place] [address] 09381- 8351 May, Otitis externa of left ear 380.10 [place] [id number] [place] [address] 42940- 6658 May, Pain in joint, ankle and foot 719.47 [place] [id number] [place] [address] 23091- 1781 Apr, Pain in joint, ankle and foot 719.47 [place] [id number] [place] [address] 63724- 2144 Mar, Dysuria 788.1 and Incontinence in female 625.6 [place] [id number] [place] [address] 86428- 4980 Feb, Plantar fasciitis of right foot 728.71 ; Ankle weakness 719.67 and Ankle pain, chronic 719.47 [place] [id number] [place] [address] 83735- 8894 Feb, [place] [id number] [place] [address] 69997- 1977 Feb, Belching 787.3 and Chest wall pain 786.52 [facility] [address] [id number] [place] [address]- 6147 14 Dec, 2014 [facility] [address] [id number] [place] [address]- 6918 Dec, [facility] [address] [id number] [place] [address]- 5085 16 Nov, 2014 [facility] [address] [id number] [place] [address]- 3399 Nov, [facility] [id number] [place] [address], [place] [address]- 7350 Sep, [facility] [address] [facility] [id number] [place] [address]- 6602 Sep, [facility] [address] [id number] [place] [address], [place] [address]- 0432 Sep, [facility] [address] [facility] [id number] [place] [address]- 6051 Sep, [facility] [address] [id number] [place] [address]- 6068 Aug, [facility] [address] [facility] [id number] [place] [address]- 4969 Aug, [facility] [address] [id number] [place] [address]- 2649 Aug, [facility] [address] [facility] [id number], [place] [address]- 5210 Aug, [facility] [address] [facility] [id number] [place] 1314 Aug, [facility] [address] [facility] [id number] [place] 4110 Aug, [facility] [address] [facility] [id number] 3861 Aug, [facility] [place] [facility] [address] [id number] [place] [address]- 5768 Aug, [facility] [place] [facility] [address] [id number] [place] 7650 Aug, [facility] [place] [facility] [address] [id number] [place] [address]- 0925 Aug, [facility] [place] [facility] [address] [id number] [place] [address]- 8035 Aug, [facility] [place] [facility] [address] [id number] [place] [address]- 5347 Aug, [facility] [place] [facility] [address] [id number] [place] [address]- 8596 Aug, [facility] [place] [facility] [address] [id number] [place] [address]- 6684 Aug, [facility] [place] [facility] [address] [id number] [place] [address]- 4412 Jul, [facility] [place] [facility] [address] [id number] [place] [address]- 3293 Jul, [facility] [place] [facility] [address] [id number] [place] [address]- 7607 Jul, [facility] [place] [facility] [address] [id number] [place] [address]- 9434 Jul, [facility] [place] [facility] [address] [id number], [place] [address]- 0517 Jul, [facility] [place] [facility] [address] [id number] [place] [address]- 3720 Jul, [facility] [place] [facility] [address] [id number] [place] [address]- 2480 Jul, [facility] [place] [facility] [address] [id number] [place] 2437 Jun, [facility] [place] [facility] [address] [id number] [place] [address]- 4189 Jun, [facility] [place] [facility] [address] [id number] [place] [address]- 9551 Jun, [facility] [place] [facility] [address] [id number] [place] 4676 Jun, [facility] [place] [facility] [address] [id number] [place] [address]- 1098 Jun, [facility] [place] [facility] [address] [id number] [place] [address]- 4927 Jun, [facility] [place] [facility] [address] [id number] [place] [address]- 0924 Jun, [facility] [place] [facility] [address] [id number] [place] [address]- 3794 Jun, [facility] [place] [facility] [address] [id number] [place] [address]- 0219 Jun, [facility] [place] [facility] [address] [id number] [place] [address]- 6446 Jun, [facility] [place] [facility] [address] [id number] [place] [address]- 8073 Jun, [facility] [place] [facility] [address] [id number] [place] [address]- 7853 Jun, [facility] [place] [facility] [address] [id number], [place] [address]- 1759 Jun, [facility] [place] [facility] [address] [id number], [place] [address]- 6606 Jun, [facility] [place] [facility] [address] [id number] [place] [address]- 4350 May, [facility] [place] [facility] [address] [id number] [place] [address]- 4969 May, [facility] [place] [facility] [address] [id number] [place] [address]- 7558 May, [facility] [place] [facility] [address] [id number] [place] [address]- 3909 May, [facility] [place] [facility] [address] [id number] [place] [address]- 9003 May, [facility] [place] [facility] [address] [id number] [place] [address]- 8899 Apr, [facility] [place] [facility] [address] [id number] [place] [address]- 1118 Apr, [facility] [place] [facility] [address] [id number] [place] [address]- 6900 Apr, [facility] [place] [facility] [address] [id number] [place] [address]- 0381 Apr, [facility] [place] [facility] [address] [id number] [place] [address]- 4217 Mar, [facility] [place] [facility] [address] [id number] [place] [address]- 4541 Mar, [facility] [place] [facility] [address] [id number] [place] [address]- 7073 Mar, [facility] [place] [facility] [address] [id number] [place] [address]- 6125 Mar, [facility] [place] [facility] [address] [id number] [place] [address]- 6164 Mar, [facility] [place] [facility] [address] [id number] [place] [address]- 1446 Mar, [facility] [place] [facility] [address] [id number] [place] [address]- 6868 Mar, [facility] [place] [facility] [address] [id number] [place] [address]- 9675 Mar, [facility] [place] [facility] [address] [id number] [place] [address]- 4848 Feb, [facility] [place] [facility] [address] [id number] [place] 4775 Feb, [facility] [place] [facility] [address] [id number] [place] [address]- 5696 Feb, [facility] [place] [facility] [address] [id number] [place] [address]- 9735 Feb, [facility] [place] [facility] [address] [id number] [place] [address]- 8503 Feb, [facility] [place] [facility] [address] [id number] [place] [address]- 3749 Feb, [facility] [place] [facility] [address] [id number] [place] [address]- 2519 Feb, [facility] [place] [facility] [address] [id number] [place] [address]- 1334 Feb, [facility] [place] [facility] [address] [id number] [place] [address]- 9365 January, [facility] [place] [facility] [address] [id number] [place] [address]- 6749 January, [facility] [place] [facility] [address] [id number] [place] [address]- 3523 January, [facility] [place] [facility] [address] [id number] [place] [address]- [address] January, [facility] [place] [facility] [address] [id number] [place] [address] January, [facility] [place] [facility] [address] [id number] [place] [address] January, [facility] [place] [facility] [address] [id number] [place] [address] Dec, [facility] [place] [facility] [address] [id number] [place] [address] Dec, [facility] [place] [facility] [address] [id number] [place] [address] Dec, [facility] [place] [facility] [address] [id number] [place] [address] Dec, [facility] [address] [id number] [place] [address] Dec, [facility] [place] [facility] [address] [id number] [place] [address] Dec, [facility] [place] [facility] [address] [id number] [place] [address] Dec, [facility] [place] [facility] [address] [id number] [place] [address] Dec, [facility] [place] [facility] [address] [id number] [place] Oct, [facility] [place] [facility] [address] [id number] [place] [address] Oct, [facility] [address] [id number] [place] [address] Aug, [facility] [place] [facility] [address] [id number] [place] [address] Aug, [facility] [place] [facility] [address] [id number] [place] [address] Jul, [facility] [place] [facility] [address] [id number] [place] [address] Jul, [facility] [place] [facility] [address] [id number] [place] [address] Mar, [facility] [place] [facility] [address] [id number] [place] [address] Mar, [facility] [place] [facility] [address] [id number] [place] [address] Mar, [facility] [place] [facility] [address] [id number] [place] [address] Feb, [facility] [place] [facility] [address] [id number] [place] [address] Feb, [facility] [place] [facility] [address] [id number] [place] [address] Feb, [facility] [address] [id number] [place] [address] January, [facility] [address] [id number] [place] [address] January, [facility] [address] [id number] [place] [address] January, [facility] [address] [id number] [place] [address] January, [facility] [address] [id number] [place] [address] January, [facility] [address] [id number] [place] [address] January, [facility] [address] [id number] [place] [address] January, [facility] [address] [id number] [place] [address] Dec, [facility] [address] [id number] [place] [address] Dec, [facility] [address] [id number] [place] [address] Dec, [facility] [address] [id number] [place] [address] Dec, [facility] [address] [id number] [place] [address] Nov, [facility] [place] [facility] [address] [id number] [place] [address] Nov, [facility] [place] [facility] [address] [id number] [place] [address] Nov, [facility] [address] [id number] [place] [address] Oct, [facility] [address] [id number] [place] [address] Oct, [facility] [address] [id number] [place] [address] Oct, [facility] [address] [id number] [place] [address] Oct, [facility] [address] [id number] [place] [address] Oct, [facility] [address] [id number] [place] [address] 05 Oct, 2012 [facility] [address] [id number] [place] [address] 30 Sep, 2012 [facility] [address] [id number] [place] [address] Sep, [facility] [address] [id number] [place] [address] Sep, [facility] [address] [id number] [place] [address] Sep, [facility] [address] [facility] [place] [id number] [place] [address] Sep, [facility] [address] [id number] [place] [address] Aug, [facility] [address] [id number] [place] [address] Aug, [facility] [address] [id number] [place] [address] Aug, [facility] [address] [id number] [place] [address] Aug, [facility] [address] [id number] [place] [address] Aug, [facility] [place] [facility] [address] [id number] [place] [address] Aug, [facility] [place] [facility] [address] [id number] [place] [address] Jul, [facility] [place] [facility] [address] [id number] [place] [address] Jul, [facility] [place] [facility] [address] [id number] [place] [address] Jul, [facility] [place] [facility] [address] [id number] [place] [address] Jul, [facility] [place] [facility] [address] [id number] [place] [address] Jul, [facility] [place] [facility] [address] [id number] [place] [address] Jul, [facility] [place] [facility] [address] [id number] [place] [address] 94[address] Jul, [facility] [place] [facility] [address] [id number] [place] [address] 15 Jul, 2012 [facility] [place] [facility] [address] [id number] [place] [address] 14 Jul, 2012 [facility] [place] [facility] [address] [id number] [place] [address] Jul, [facility] [place] [facility] [address] [id number] [place] [address] Jul, [facility] [place] [facility] [address] [id number] [place] [address] Jul, [facility] [place] [facility] [address] [id number] [place] [address] Jul, [facility] [place] [facility] [address] [id number] [place] [address]- [address] 08 Jul, 2012 [facility] [place] [facility] [address] [id number] [place] [address] Jul, [facility] [place] [facility] [address] [id number] [place] [address] 2546 08 Jul, 2012 [facility] [place] [facility] [address] [id number] [place] [address] Jul, [facility] [place] [facility] [address] [facility] [place] [id number] [place] [address]- [address] Jul, [facility] [place] [facility] [address] [id number] [place] [address] Jul, [facility] [place] [facility] [address] [id number] [place] [address] 2546 Jun, [facility] [place] [facility] [address] [id number] [place] [address] 2546 Jun, [facility] [place] [facility] [address] [facility] [place] [id number] [place] [address] May, [facility] [place] [facility] [address] [id number], [place] [address] Apr, [facility] [place] [facility] [address] [id number][place] [address] Mar, [facility] [place] [facility] [address] [facility] [place] [id number], [place] [address] Feb, [facility] [place] [facility] [address] [facility] [place] [id number], [place] [address] Feb, [facility] [place] [facility] [address] [id number], [place] [address] Feb, [facility] [place] [facility] [address] [id number] [place] [address]- [address] January, [facility] [place] [facility] [address] [facility] [place] [id number], [place] [address] 25[address] January, [facility] [place] [facility] [address] [facility] [place] [id number], [place] [address]- [address] Dec, [facility] [place] [facility] [address] [id number] [place] [address] 25 Dec, 2011 [facility] [place] [facility] [address] [id number] [place] [address]- [address] 08 Nov, 2011 [facility] [place] [facility] [address] [id number] [place] [address]- [address] 12 Aug, 2011 [facility] [place] [facility] [address] [id number] [place] [address]- [address] 16 Jul, 2011 [facility] [place] [facility] [address] [id number] [place] [address]- [address] 16 Jul, 2011 [facility] [place] [facility] [address] [id number] [place] [address]- [address]267 16 Jul, 2011 [facility] [place] [facility] [address] [id number] [place] [address] 395[address] 12 Jun, 2011 [facility] [place] [facility] [address] [id number] [place] [address]- [address]189 12 Jun, 2011 [facility] [place] [facility] [address] [id number] [place] [address]- 2906 14 May, 2011 [facility] [place] [facility] [address] [id number] [place] [address]- 9723 10 Apr, 2011 [facility] [place] [facility] [address] [id number] [place] [address] January, [facility] [place] [facility] [address] [id number] [place] [address]- 2746 13 Dec, 2010 [facility] [place] [facility] [address] [id number] [place] [address]- 4331 16 Nov, 2010 [facility] [place] [facility] [address] [id number] [place] [address]- 8579 10 Oct, 2010 [facility] [place] [facility] [address] [id number] [place] [address]- 8158 14 Jun, 2010 [facility] [place] [facility] [address] [id number] [place] [address]- [address] Jun, [facility] [address] [facility] [place] [id number], [place] [address] Oct, [facility] [address] [id number], [place] [address] Aug, [facility] [address] [id number], [place] [address] Jul, [facility] [address] [id number], [place] [address] Dec, IMMUNIZATIONS No Known Immunizations SOCIAL HISTORY Never Assessed REASON FOR VISIT Medication Question PLAN OF CARE VITAL SIGNS MEDICATIONS No [...]
--- OUTSIDE RECORDS SUMMARY | 2018-12-13 17:53 | XMS REPORT ---
Author Author SILVA VALENZUELA [facility] Address [address] [place] [address] Care Team Providers [employer] Manager Name Role Phone SILVA VALENZUELA Unavailable PROBLEMS Type Condition ICD9-CM Code ESV11-IK Code Onset Dates Condition Status SNOMED Code Problem Depression, unspecified depression type F32.9 Active 57840278 Problem Seasonal allergic rhinitis, unspecified allergic rhinitis trigger J30.2 Active 779377772 Problem Irregular periods/menstrual cycles N92.6 Active 01830524 Problem Seasonal allergies J30.2 Active 547809242 Problem Missed period N92.6 Active 74658331 Problem Other headache syndrome G44.89 Active 840803733 Problem Anemia, O90.81 Active 963700103 Problem DANIELLA (generalized anxiety disorder) F41.1 Active 12412493 Problem Dysthymic disorder F34.1 Active 24551037 ALLERGIES Substance Reaction Event Type Date Status Cefaclor Unknown Drug Allergy January, Active ENCOUNTERS Encounter Location Date Diagnosis [facility] [id number] [place] [address] 06497 -1421 Mar, Pain of left calf M79.662 and Muscle spasm of left calf M62.831 [place] [address] [place] [id number] [place] [address] 62221- 9626 Mar, care in second trimester Z34.92 [facility] [id number] [place] [address] 26920- 8398 Mar, Bilateral impacted cerumen H61.23 [facility] [address] [id number] [place] [address] 20779- 7220 Feb, [facility] [id number] [place] [address] 22460 -6398 Feb, [facility] [id number] [place] [address] 38681- 0999 20 Feb, 2018 Normal in multigravida Z34.80 [place] [address] 49311- 6411 13 Feb, 2018 Painful urination R30.9 and Encounter for supervision of normal in second trimester Z34.92 [facility] [id number] [place] [address] 69924 -6624 07 Feb, 2018 Seasonal allergies J30.2 [place] [address] 82084- 6674 Feb, [place] [address] 09667- 0803 Feb, [facility] [id number] [place] [address] 48002 -8181 January, Seasonal allergic rhinitis, unspecified trigger J30.2 [facility] [address] [place] [id number] [place] [address] 81099 -1787 January, [facility] [address] 47234 -0546 January, Viral gastroenteritis A08.4 [place] [address] [place] [id number] [place] [address] 04166- 7723 January, [place] [address] [id number] [place] [address] 22334- 8761 16 Jan, 2018 care in first trimester Z34.91 [facility] [id number] [place] [address] 98361- 6863 January, [facility] [id number] [place] [address] 16505 -2821 January, Left ankle pain, unspecified chronicity M25.572 [facility] [address] [id number] [place] [address] 88374- 2394 January, [facility] [address] [place] [id number] [place] [address] 20258- 2976 January, Dysthymic disorder F34.1 and DANIELLA (generalized anxiety disorder) F41.1 [facility] [id number] [place] [address] 67582 -4746 January, Impacted cerumen of both ears H61.23 [place] [id number] [place] [address] 74814- 0655 Dec, [place] [address] 25337- 3112 Dec, in multigravida Z34.80 [place] [address] 04336- 5666 Dec, DANIELLA (generalized anxiety disorder) F41.1 and Dysthymic disorder F34.1 [place] [address] [id number] [place] [address] 10913- 6020 Dec, [place] [address] [id number] [place] [address] 45164- 6163 Nov, [place] [id number] [place] [address] 23441- 4979 Nov, [place] [address] [place] [id number] [place] [address] 84867- 5577 Nov, Painful urination R30.9 ; Vaginal yeast infection B37.3 and Early stage of Z34.90 [place] [address] [id number] [place] [address] 54905- 5760 Nov, in multigravida Z34.80 [place] [address] [id number] [place] [address] 32815- 1124 Nov, Dysfunction of right eustachian tube H69.81 and Bilateral impacted cerumen H61.23 [place] [address] [id number] [place] [address] 14189- 1651 Nov, [place] [address] [place] [id number] [place] [address] 39990- 5896 Nov, [facility] [id number] [place] [address] 03675- 8363 Nov, [facility] [id number] [place] [address] 08561 -7872 Nov, Missed period N92.6 [place] [address] 27027- 3085 Sep, DANIELLA (generalized anxiety disorder) F41.1 and Dysthymic disorder F34.1 [facility] [id number] [place] [address] 76698 -5972 Aug, Acute nasopharyngitis J00 [place] [address] [id number] [place] [address] 29822- 1809 Jul, Irregular periods/menstrual cycles N92.6 [place] [address] 53313- 5526 Jul, Bilateral impacted cerumen H61.23 [place] [address] [place] [id number] [place] [address] 94377- 6390 Jul, DANIELLA (generalized anxiety disorder) F41.1 and Dysthymic disorder F34.1 [place] [address] [place] [id number] [place] [address] 72635- 0567 Jun, [place] [address] [id number] [place] [address] 60038- 6987 Jun, Dysthymic disorder F34.1 [place] [address] [id number] [place] [address] 83218- 2463 Jun, Anemia, O90.81 ; Lower abdominal pain R10.30 ; Allergic contact dermatitis due to adhesives L23.1 and Other headache syndrome G44.89 [place] [address] [place] [id number] [place] [address] 64450- 6348 Jun, 39 weeks gestation of Z3A.39 [place] [address] [id number] [place] [address] 76496- 1737 27 May, 2017 care in third trimester Z34.93 [facility] [place] [address] [id number] [place] [address] 37677 -8109 24 May, 2017 Acute seasonal allergic rhinitis, unspecified trigger J30.2 [place] [address] 51996- 9211 20 May, 2017 Normal in multigravida Z34.[address] [facility] [address] 10077 -6335 17 May, 2017 Urinary frequency R35.0 and Pain of round ligament N94.9 [place] [address] 29871- 5295 13 May, 2017 35 weeks gestation of Z3A.35 [place] [address] 30720- 9017 Apr, High risk sexual behavior Z72.51 and 33 weeks gestation of Z3A.33 [place] [address] 06963- 2920 Apr, care in third trimester Z34.[address] [facility] [place] [address] [place] [id number] [place] [address] 34435 -5246 Apr, Bilateral impacted cerumen H61.23 [place] [address] 68518- 2818 Apr, 30 weeks gestation of Z3A.30 and Encounter for immunization Z23 [place] [address] 38799- 6123 Mar, 28 weeks gestation of Z3A.28 [place] [address] 53986- 2175 Mar, [place] [address] 34268- 1050 Mar, [place] [address] [place] [id number] [place] [address] 01620- 1615 Mar, [place] [address] [id number] [place] [address] 07819- 7555 Mar, 26 weeks gestation of Z3A.26 [facility] [address] [place] [id number] [place] [address] 76546 -7616 Mar, Acute back pain M54.9 [place] [address] [place] [id number] [place] [address] 90996- 1316 28 Feb, 2017 24 weeks gestation of Z3A.24 [facility] [address] [place] [address] 68525 -7659 27 Feb, 2017 Lower abdominal pain R10.30 [facility] [place] [id number] [place] [address] 25670 -4753 Feb, Gastroenteritis and colitis, viral A08.4 [place] [id number] [place] [address] 12371- 6253 14 Feb, 2017 care in second trimester Z34.[address] 76274- 2137 07 Feb, 2017 [facility] [place] [id number] [place] [address] 09437 -5757 04 Feb, 2017 Abscess L02.91 [facility] [place] [id number] [place] [address] 67791 -4882 Feb, Vaginal flavia B37.3 [place] [id number] [place] [address] 94583- 7896 January, 20 weeks gestation of Z3A.20 [place] [address] [place] [id number] [place] [address] 96648- 3837 January, [facility] [address] [place] [address] [place] [address] 00992 -6816 January, Seasonal allergic rhinitis, unspecified allergic rhinitis trigger J30.2 [facility] [address] [place] [id number] [place] [address] 10421 -1611 January, Dermatitis L30.9 and Bug bites, initial encounter W57.XXXA [place] [address] [place] [id number] [place] [address] 88861- 8326 January, Sore throat J02.9 and Seasonal allergic rhinitis, unspecified allergic rhinitis trigger J30.2 [place] [address] 84138- 9560 January, 16 weeks gestation of Z3A.16 [place] [address] 60621- 3963 Dec, care in first trimester Z34.91 [place] [address] 54898- 8446 Nov, care in first trimester Z34.91 and Normal in multigravida Z34.80 [facility] [place] [address] [place] [id number] [place] [address] 45239 -1752 Oct, Nausea and vomiting during O21.9 [place] [address] 10906- 5728 Oct, [place] [address] [place] [id number] [place] [address] 83959- 5353 Oct, [place] [address] 19450- 0946 Oct, Encounter for test, result unknown Z32.00 [place] [address] 00823- 3431 Sep, Irregular periods/menstrual cycles N92.6 ; Sore throat J02.9 ; Nausea R11.0 and Right ear impacted cerumen H61.21 [facility] [place] [id number] [place] [address] 73933 -2495 Jul, Vaginal discharge N89.8 ; Other specified bacterial agents as the cause of diseases classified elsewhere B96.89 and Acute vaginitis N76.0 [place] [address] [place] [id number] [place] [address] 94731- 2427 10 Jun, 2016 Depression, unspecified depression type F32.9 [place] [address] [place] [id number] [place] [address] 44290- 4828 23 May, 2016 Vaginal candidiasis B37.3 [place] [address] 99303- 4320 20 May, 2016 Acute pharyngitis, unspecified etiology J02.9 [place] [address] 039839- 7104 19 May, 2016 Depression, unspecified depression type F32.9 [place] [address] 62526- 9173 12 May, 2016 Depression, unspecified depression type F32.9 [place] [address] [place] [id number] [place] [address] 29737- 5594 12 May, 2016 Dysthymic disorder F34.1 [facility] [address] [place] [id number] [place] [address] 32981 -6865 Apr, Acute suppurative otitis media of right ear without spontaneous rupture of tympanic membrane, recurrence not specified H66.001 [facility] [address] [place] [id number] [place] [address] 57508 -7130 Mar, Herpes zoster without complication B02.9 [facility] [address] [place] [id number] [place] [address] 95848 -4054 Dec, Allergic rhinitis J30.9 [facility] [address] [place] [id number] [place] [address] 15133 -8741 Dec, Lumbago M54.5 [facility] [address] [place] [id number] [place] [address] 64812 -4403 18 Oct, 2015 Dysuria R30.0 and Urinary tract infection N39.0 [facility] [address] [place] [id number] [place] [address] 49766 -7718 Sep, Acute nasopharyngitis J00 and Strep pharyngitis J02.0 [facility] [address] [place] [id number] [place] [address] 76629- 6577 Jul, Upper respiratory tract infection, unspecified type J06.9 [place] [address] 02331- 4607 Jun, Irritable bowel syndrome without diarrhea K58.9 [place] [address] 33475- 4125 Jun, [place] [address] 45382- 3963 May, [place] [address] 98846- 4583 May, [place] [address] 05569- 5739 May, Otitis externa of left ear 380.10 [place] [address] 76888- 6712 May, Pain in joint, ankle and foot 719.47 [place] [address] [place] [id number] [place] [address] 49320- 6308 Apr, Pain in joint, ankle and foot 719.47 [place] [address] 45257- 3684 Mar, Dysuria 788.1 and Incontinence in female 625.[address] 85976- 7064 Feb, Plantar fasciitis of right foot 728.71 ; Ankle weakness 719.67 and Ankle pain, chronic 719.47 [place] [address] 45038- 5742 Feb, [place] [address] [id number] [address]- 1721 Feb, Belching 787.3 and Chest wall pain 786.52 [facility] [address] [id number] [place] [address]- 7632 14 Dec, 2014 [facility] [address] [id number] [place] [address]- 0790 Dec, [facility] [address] [id number] [place] [address]- 9687 Nov, [facility] [address] [id number] [place] [address]- 7413 Nov, [facility] [address] [id number] [place] [address]- 6331 Sep, [facility] [address] [facility] [id number] [place] [address]- 3253 Sep, [facility] [address] [facility] [id number] [place] [address]- 7724 Sep, [facility] [address] [id number] [place] [address]- 5098 Sep, [facility] [address] [facility] [id number] [address]- 0521 Aug, [facility] [address] [id number] [address]- 2958 Aug, [facility] [address] [id number] [address]- 6064 Aug, [facility] [address] [id number] [place] [address]- 8785 Aug, [facility] [address] [id number] 0688 Aug, [facility] [address] [facility] [id number] [place] 7733 Aug, [facility] [address] [id number] [place] [address]- 4384 03 Aug, 2014 [facility] [place] [facility] [address] [id number] [place] [address]- 2132 Aug, [facility] [place] [facility] [address] [id number] [place] [address]- 3405 Aug, [facility] [place] [facility] [address] [id number] [place] [address]- 6671 Aug, [facility] [place] [facility] [address] [id number] [place] [address]- 8485 Aug, [facility] [place] [facility] [address] [id number] [place] [address]- 5407 Aug, [facility] [place] [facility] [address] [id number] [place] [address]- 9011 Aug, [facility] [place] [facility] [address] [id number] [place] [address]- 6262 Aug, [facility] [place] [facility] [address] [id number] [place] [address]- 1833 Jul, [facility] [place] [facility] [address] [id number] [place] [address]- 1626 Jul, [facility] [place] [facility] [address] [facility] [id number] [place] [address]- 5773 Jul, [facility] [place] [facility] [address] [id number] [place] [address]- 8381 Jul, [facility] [place] [facility] [address] [id number], [place] [address]- 7228 Jul, [facility] [place] [facility] [address] [id number] [place] [address]- 2767 Jul, [facility] [place] [facility] [address] [facility] [id number] [place] [address]- 1889 Jul, [facility] [place] [facility] [address] [facility] [id number] [place] [address]- 9942 Jun, [facility] [place] [facility] [address] [id number] [place] [address]- 5137 Jun, 2013 [facility] [place] [facility] [address] [id number] [place] [address]- 3619 Jun, [facility] [place] [facility] [address] [id number] [place] [address]- 3804 Jun, [facility] [place] [facility] [address] [id number] [place] [address]- 6108 Jun, [facility] [place] [facility] [address] [id number] [place] [address]- 5767 Jun, [facility] [place] [facility] [address] [id number] [place] [address]- 6039 Jun, [facility] [place] [facility] [address] [id number] [place] [address]- 5087 Jun, [facility] [place] [facility] [address] [id number] [place] [address]- 4044 Jun, [facility] [place] [facility] [address] [id number] [place] [address]- 1147 Jun, [facility] [place] [facility] [address] [id number] [place] [address]- 4357 Jun, [facility] [place] [facility] [address] [id number] [place] [address]- 4250 Jun, [facility] [place] [facility] [address] [id number] [place] [address]- 5795 Jun, [facility] [place] [facility] [address] [id number] [place] [address]- 6869 Jun, [facility] [place] [facility] [address] [id number] [place] [address]- 9948 May, [facility] [place] [facility] [address] [id number] [place] [address]- 6587 24 May, 2014 [facility] [place] [facility] [address] [id number] [place] [address]- 8888 May, [facility] [place] [facility] [address] [id number] [place] [address]- 2112 May, [facility] [place] [facility] [address] [id number] [place] [address]- 0045 May, [facility] [place] [facility] [address] [id number] [place] [address]- 0461 Apr, [facility] [place] [facility] [address] [id number] [place] [address]- 8676 Apr, [facility] [place] [facility] [address] [id number] [place] [address]- 0325 Apr, [facility] [place] [facility] [address] [id number] [place] [address]- 2133 Apr, [facility] [place] [facility] [address] [id number] [place] [address]- 0926 Mar, [facility] [place] [facility] [address] [id number] [place] [address]- 8935 Mar, [facility] [place] [facility] [address] [id number] [place] [address]- 7168 Mar, [facility] [place] [facility] [address] [id number] [place] [address]- 3637 Mar, [facility] [place] [facility] [address] [id number] [place] [address]- 3143 Mar, [facility] [place] [facility] [address] [id number] [place] [address]- 2092 Mar, [facility] [place] [facility] [address] [id number] [place] [address]- 0877 Mar, [facility] [place] [facility] [address] [id number] [place] [address]- 9573 Mar, [facility] [place] [facility] [address] [id number] [place] [address]- 3781 Feb, [facility] [place] [facility] [address] [id number] [place] [address]- 5027 Feb, [facility] [place] [facility] [address] [id number] [place] [address]- 4596 Feb, [facility] [place] [facility] [address] [id number] [place] [address]- 3646 Feb, [facility] [place] [facility] [address] [id number] [place] [address]- 2613 Feb, [facility] [place] [facility] [address] [id number] [place] [address]- 8762 Feb, [facility] [place] [facility] [address] [id number] [place] [address]- 2408 Feb, [facility] [place] [facility] [address] [id number] [place] [address]- 9636 Feb, [facility] [place] [facility] [address] [id number] [place] [address] January, [facility] [place] [facility] [address] [id number] [place] [address] January, [facility] [place] [facility] [address] [id number] [place] [address] January, [facility] [facility] [address] [id number] [place] [address] January, [facility] [place] [facility] [address] [id number] [place] [address] January, [facility] [place] [facility] [address] [id number] [place] [address] January, [facility] [place] [facility] [address] [id number] [place] [address] Dec, [facility] [place] [facility] [address] [id number] [place] [address] Dec, [facility] [place] [facility] [address] [id number] [place] [address] Dec, [facility] [place] [facility] [address] [id number] [place] [address] Dec, [facility] [place] [facility] [address] [id number] [place] [address] Dec, [facility] [place] [facility] [address] [id number] [place] [address] Dec, [facility] [place] [facility] [address] [id number] [place] [address] Dec, [facility] [place] [facility] [address] [id number] [place] [address] Dec, [facility] [place] [facility] [address] [id number] [place] [address] Oct, [facility] [place] [facility] [address] [id number] [place] [address] Oct, [facility] [place] [facility] [address] [id number] [place] [address] Aug, [facility] [place] [facility] [address] [id number] [place] [address] Aug, [facility] [place] [facility] [address] [id number] [place] [address] Jul, [facility] [place] [facility] [address] [id number] [place] [address] Jul, [facility] [place] [facility] [address] [id number] [address] Mar, [facility] [place] [facility] [address] [id number] [place] [address] Mar, [facility] [place] [facility] [address] [id number] [place] [address] Mar, [facility] [place] [facility] [address] [id number] [address] Feb, [facility] [place] [facility] [address] [id number], [place] [address] Feb, [facility] [address] [id number] [place] [address] Feb, [facility] [address] [id number] [place] [address] January, [facility] [address] [id number] [place] [address] January, [facility] [address] [id number] [place] [address] January, [facility] [address] [id number] [place] [address] January, [facility] [address] [id number] [place] [address] January, [facility] [address] [id number] [place] [address] January, [facility] [address] [id number] [place] [address] January, [facility] [address] [id number] [place] [address] Dec, [facility] [address] [id number] [place] [address] Dec, [facility] [address] [id number] [place] [address] Dec, [facility] [facility] [address] [id number] [place] [address] Dec, [facility] [address] [id number] [place] [address] Nov, [facility] [address] [id number] [place] [address] Nov, [facility] [address] [id number] [place] [address] Nov, [facility] [address] [id number] [place] [address] 27 Oct, 2012 [facility] [place] [facility] [address] [id number] [place] [address] 25 Oct, 2012 [facility] [place] [facility] [address] [id number] [place] [address] 1186 20 Oct, 2012 [facility] [place] [facility] [address] [id number] [place] [address] Oct, [facility] [place] [facility] [address] [id number] [place] [address] Oct, [facility] [place] [facility] [address] [id number] [place] [address] 05 Oct, 2012 [facility] [address] [id number] [place] [address] Sep, [facility] [address] [id number] [place] [address] Sep, [facility] [place] [facility] [address] [id number] [place] [address] Sep, [facility] [address] [facility] [id number] [place] [address] Sep, [facility] [place] [facility] [address] [facility] [id number] [place] [address] Sep, [facility] [place] [facility] [address] [id number] [address] Aug, [facility] [place] [facility] [address] [id number] [place] [address] Aug, [facility] [place] [facility] [address] [id number] [place] [address] Aug, [facility] [place] [facility] [address] [id number] [place] [address] Aug, [facility] [place] [facility] [address] [id number] [address] Aug, [facility] [place] [facility] [address] [id number] [place] [address] Aug, [facility] [place] [facility] [address] [id number] [place] [address] Jul, [facility] [place] [facility] [address] [id number] [place] [address] Jul, [facility] [place] [facility] [address] [id number] [place] [address] Jul, [facility] [place] [facility] [address] [id number] [place] [address] Jul, [facility] [place] [facility] [address] [id number] [place] [address] Jul, [facility] [place] [facility] [address] [id number] [place] [address] Jul, [facility] [place] [facility] [address] [id number] [place] [address] Jul, [facility] [place] [facility] [address] [id number] [place] [address] 15 Jul, 2012 [facility] [place] [facility] [address] [id number] [place] [address] 14 Jul, 2012 [facility] [place] [facility] [address] [id number] [address] Jul, [facility] [place] [facility] [address] [id number], [place] [address] Jul, [facility] [place] [facility] [address] [id number], [place] [address] Jul, [facility] [place] [facility] [address] [id number] [place] [address] 1696 Jul, [facility] [place] [facility] [address] [id number] [place] [address] 114[address] Jul, [facility] [place] [facility] [address] [id number] [place] [address] 08 Jul, 2012 [facility] [place] [facility] [address] [id number] [place] [address] 25[address] 08 Jul, 2012 [facility] [place] [facility] [address] [id number] [place] [address] Jul, [facility] [place] [facility] [address] [id number] [place] [address] Jul, [facility] [place] [facility] [address] [id number] [place] [address] Jul, [facility] [place] [facility] [address] [id number] [place] [address] Jun, [facility] [place] [facility] [address] [id number] [place] [address] Jun, [facility] [place] [facility] [address] [id number] [place] [address] May, [facility] [place] [facility] [address] [id number] [place] [address] Apr, [facility] [place] [facility] [address] [id number] [place] [address] Mar, [facility] [place] [facility] [address] [id number] [place] [address] Feb, [facility] [place] [facility] [address] [id number] [place] [address]- [address] Feb, [facility] [place] [facility] [address] [id number] [place] [address]- [address]46 Feb, [facility] [place] [facility] [address] [id number] [place] [address] January, [facility] [place] [facility] [address] [id number] [place] [address] January, [facility] [place] [facility] [address] [id number] [place] [address]14 Dec, [facility] [place] [facility] [address] [id number] [place] [address]- [address] 25 Dec, 2011 [facility] [place] [facility] [address] [id number] [place] [address]- [address]64 08 Nov, 2011 [facility] [place] [facility] [address] [id number] [place] [address]- 97[address] 12 Aug, 2011 [facility] [place] [facility] [address] [id number] [place] [address]- [address]157 16 Jul, 2011 [facility] [place] [facility] [address] [id number] [place] [address] 16 Jul, 2011 [facility] [place] [facility] [address] [id number] [place] [address]- 8721 16 Jul, 2011 [facility] [place] [facility] [address] [id number] [place] [address] 9361 12 Jun, 2011 [facility] [place] [facility] [address] [id number] [place] [address]- 8928 12 Jun, 2011 [facility] [place] [facility] [address] [id number] [place] [address]- 7877 14 May, 2011 [facility] [place] [facility] [address] [id number] [place] [address]- 3773 10 Apr, 2011 [facility] [place] [facility] [address] [id number] [place] [address] January, [facility] [place] [facility] [address] [id number], [place] [address] 13 Dec, 2010 [facility] [place] [facility] [address] [id number] [place] [address]- [address] 16 Nov, 2010 [facility] [place] [facility] [address] [id number] [address] 4218 10 Oct, 2010 [facility] [place] [facility] [address] [id number] [place] [address]- [address]558 14 Jun, 2010 [facility] [place] [facility] [address] [facility] [id number], [place] [address] 14 Jun, 2010 [facility] [address] [facility] [id number] [address] Oct, [facility] [address] [facility] [id number], [place] [address] Aug, [facility] [address] [facility] [id number][place] [address] Jul, [facility] [address] [facility] [id number] [address] Dec, IMMUNIZATIONS No Known Immunizations SOCIAL HISTORY Never Assessed REASON FOR VISIT ankle pain, goes up leg- started a few days ago LUCAS Gonsalez PLAN OF CARE Activity Details Follow Up prn Reason: VITAL SIGNS Height 61 in 2018-01-29 Weight 179.6 lbs 2018-01-29 Temperature 97.1 degrees Fahrenheit 2018-01-29 Heart Rate 72 bpm 2018-01-29 Respiratory Rate 20 2018-01-29 BMI 33.93 kg/m2 2018-01-29 Blood pressure systolic 120 mmHg 2018-01-29 Blood pressure diastolic 72 mmHg 2018-01-29 MEDICATIONS Medication Instructions Dosage Frequency Start Date End Date Duration Status Unisom Active Diflucan 150 MG 1 tablet Nov, 1 dose Not-Taking Flonase 50 MCG/ACT Nasally Once a day 2 sprays in each nostril 24h Nov, 30 day(s) Not-Taking Zoloft 50 mg Orally Once a day 1 tablet 24h Sep, 30 days Active SudoGest 60 mg Orally every 6 hrs 1 tablet as needed 6h Nov, 05 days Not-Taking Vitamin Not-Taking RESULTS No Results PROCEDURES No Known [...]
--- OUTSIDE RECORDS SUMMARY | 2018-12-13 17:54 | XMS REPORT ---
Author Author ТАТЬЯНА ANDREWS [facility] Address [address] [place] [address] Care Team Providers Care Architectural Technician Name Role Phone DARRYL, ТАТЬЯНА Unavailable PROBLEMS Type Condition ICD9-CM Code VHS44-QP Code Onset Dates Condition Status SNOMED Code Problem Depression, unspecified depression type F32.9 Active 21614514 Problem Seasonal allergic rhinitis, unspecified allergic rhinitis trigger J30.2 Active 274878560 Problem Irregular periods/menstrual cycles N92.6 Active 00235630 Problem Seasonal allergies J30.2 Active 401270020 Problem Missed period N92.6 Active 83885669 Problem Other headache syndrome G44.89 Active 755692688 Problem Anemia, O90.81 Active 087670016 Problem DANIELLA (generalized anxiety disorder) F41.1 Active 89893594 Problem Dysthymic disorder F34.1 Active 48127698 ALLERGIES Substance Reaction Event Type Date Status Cefaclor Unknown Drug Allergy January, Active ENCOUNTERS Encounter Location Date Diagnosis [facility] [address] [place] [address] 41432 -4642 Mar, Pain of left calf M79.662 and Muscle spasm of left calf M62.831 [facility] [address] [place] [address] 91643- 3199 Mar, care in second trimester Z34.92 [facility] [id number] [place] [address] 60451- 8340 Mar, Bilateral impacted cerumen H61.23 [facility] [id number] [place] [address] 43393- 9474 Feb, [facility] [address] [place] [address] 01473 -2852 Feb, [facility] [id number] [place] [address] 38400- 6328 20 Feb, 2018 Normal in multigravida Z34.80 [place] [address] 12539- 5793 13 Feb, 2018 Painful urination R30.9 and Encounter for supervision of normal in second trimester Z34.92 [facility] [address] 78797 -8266 07 Feb, 2018 Seasonal allergies J30.2 [place] [address] 42440- 3379 Feb, [place] [address] 40438- 1767 Feb, [facility] [address] 97342 -1710 January, Seasonal allergic rhinitis, unspecified trigger J30.2 [facility] [id number] [place] [address] 17115 -3135 January, [facility] [address] 89006 -2015 January, Viral gastroenteritis A08.4 [place] [id number] [place] [address] 23230- 3088 January, [place] [id number] [place] [address] 66383- 8595 16 Jan, 2018 care in first trimester Z34.91 [place] [id number] [place] [address] 52264- 9825 January, [facility] [id number] [place] [address] 41124 -2527 January, Left ankle pain, unspecified chronicity M25.572 [place] [id number] [place] [address] 95557- 9003 January, [facility] [address] [place] [address] 6629 January, Dysthymic disorder F34.1 and DANIELLA (generalized anxiety disorder) F41.1 [facility] [id number] [place] [address] 92505 -4557 January, Impacted cerumen of both ears H61.23 [facility] [id number] [place] [address] 12272- 3452 Dec, [facility] [id number] [place] [address] 27203- 3163 Dec, in multigravida Z34.80 [place] [address] 84280- 7667 Dec, DANIELLA (generalized anxiety disorder) F41.1 and Dysthymic disorder F34.1 [place] [id number] [place] [address] 77585- 3580 Dec, [facility] [id number] [place] [address] 90491- 6191 Nov, [place] [address] 88517- 9332 Nov, [place] [id number] [place] [address] 99582- 1384 Nov, Painful urination R30.9 ; Vaginal yeast infection B37.3 and Early stage of Z34.90 [facility] [id number] [place] [address] 57857- 9132 Nov, in multigravida Z34.80 [place] [id number] [place] [address] 65273- 4830 Nov, Dysfunction of right eustachian tube H69.81 and Bilateral impacted cerumen H61.23 [facility] [id number] [place] [address] 68726- 7138 Nov, [facility] [address] [place] [address]- 6291 Nov, [facility] [id number] [place] [address] 28987- 9010 Nov, [facility] [id number] [place] [address] 36808 -7518 Nov, Missed period N92.6 [facility] [address] 83409- 9347 Sep, DANIELLA (generalized anxiety disorder) F41.1 and Dysthymic disorder F34.1 [facility] [id number] [place] [address] 14199 -2411 Aug, Acute nasopharyngitis J00 [place] [id number] [place] [address] 14087- 3882 Jul, Irregular periods/menstrual cycles N92.6 [place] [address] 94703- 3840 Jul, Bilateral impacted cerumen H61.23 [place] [id number] [place] [address] 42574- 0308 Jul, DANIELLA (generalized anxiety disorder) F41.1 and Dysthymic disorder F34.1 [place] [id number] [place] [address] 25754- 4841 Jun, [place] [id number] [place] [address] 07250- 2933 Jun, Dysthymic disorder F34.1 [place] [id number] [place] [address] 87466- 3986 Jun, Anemia, O90.81 ; Lower abdominal pain R10.30 ; Allergic contact dermatitis due to adhesives L23.1 and Other headache syndrome G44.89 [place] [id number] [place] [address] 79150- 1931 Jun, 39 weeks gestation of Z3A.39 [place] [id number] [place] [address] 52193- 2755 27 May, 2017 care in third trimester Z34.93 [facility] [place] [id number] [place] [address] 93352 -0905 24 May, 2017 Acute seasonal allergic rhinitis, unspecified trigger J30.2 [place] [address] 26883- 6859 20 May, 2017 Normal in multigravida Z34.80 [facility] [address] 09887 -0736 17 May, 2017 Urinary frequency R35.0 and Pain of round ligament N94.9 [place] [address] 93956- 7743 13 May, 2017 35 weeks gestation of Z3A.[address] 90134- 3817 Apr, High risk sexual behavior Z72.51 and 33 weeks gestation of Z3A.33 [place] [address] 97417- 3441 Apr, care in third trimester Z34.93 [facility] [place] [id number] [place] [address] 24467 -8728 Apr, Bilateral impacted cerumen H61.23 [place] [address] 02051- 7696 Apr, 30 weeks gestation of Z3A.30 and Encounter for immunization Z23 [place] [address] 67649- 0230 Mar, 28 weeks gestation of Z3A.28 [place] [address] 83381- 9053 Mar, [place] [address] 74818- 6349 Mar, [place] [address] [place] [address] 39519- 6086 Mar, [place] [id number] [place] [address] 52213- 8804 Mar, 26 weeks gestation of Z3A.26 [facility] [id number] [place] [address] 83409 -7258 Mar, Acute back pain M54.9 [place] [id number] [place] [address] 29354- 5908 28 Feb, 2017 24 weeks gestation of Z3A.24 [facility] [address] [place] [address] 05628 -0328 27 Feb, 2017 Lower abdominal pain R10.30 [facility] [address] [place] [id number] [place] [address] 90444 -8866 Feb, Gastroenteritis and colitis, viral A08.4 [place] [id number] [place] [address] 72683- 0532 14 Feb, 2017 care in second trimester Z34.92 [place] [id number] [place] [address] 06506- 0696 07 Feb, 2017 [facility] [place] [id number] [place] [address] 67639 -1979 04 Feb, 2017 Abscess L02.91 [facility] [place] [id number] [place] [address] 07678 -1907 Feb, Vaginal flavia B37.3 [place] [id number] [place] [address] 32469- 3838 January, 20 weeks gestation of Z3A.20 [place] [id number] [place] [address] 29134- 5462 January, [facility] [address] [place] [id number] [place] [address] 93481 -8676 January, Seasonal allergic rhinitis, unspecified allergic rhinitis trigger J30.2 [facility] [id number] [place] [address] 73759 -4440 January, Dermatitis L30.9 and Bug bites, initial encounter W57.XXXA [place] [address] [place] [address] 08792- 3788 January, Sore throat J02.9 and Seasonal allergic rhinitis, unspecified allergic rhinitis trigger J30.2 [place] [address] 23982- 8961 January, 16 weeks gestation of Z3A.[address] 90706- 7940 Dec, care in first trimester Z34.91 [place] [address] 34004- 3369 Nov, care in first trimester Z34.91 and Normal in multigravida Z34.80 [facility] [place] [id number] [place] [address] 23627 -1992 Oct, Nausea and vomiting during O21.9 [place] [address] 12252- 7396 Oct, [place] [id number] [place] [address] 36303- 0284 Oct, [address] 91807- 1984 Oct, Encounter for test, result unknown Z32.00 [place] [id number] [place] [address] 88729- 0347 Sep, Irregular periods/menstrual cycles N92.6 ; Sore throat J02.9 ; Nausea R11.0 and Right ear impacted cerumen H61.21 [facility] [place] [id number] [place] [address] 76184 -7424 Jul, Vaginal discharge N89.8 ; Other specified bacterial agents as the cause of diseases classified elsewhere B96.89 and Acute vaginitis N76.0 [place] [id number] [place] [address] 89783- 7585 10 Jun, 2016 Depression, unspecified depression type F32.9 [place] [id number] [place] [address] 61369- 8541 23 May, 2016 Vaginal candidiasis B37.3 [place] [address] 083750- 6913 20 May, 2016 Acute pharyngitis, unspecified etiology J02.9 [place] [address] 90577 3342 19 May, 2016 Depression, unspecified depression type F32.9 [place] [address] 79085- 9597 12 May, 2016 Depression, unspecified depression type F32.9 [place] [id number] [place] [address] 70954- 1204 12 May, 2016 Dysthymic disorder F34.1 [facility] [id number] [place] [address] 25896 -4590 Apr, Acute suppurative otitis media of right ear without spontaneous rupture of tympanic membrane, recurrence not specified H66.001 [facility] [id number] [place] [address] 74919 -8924 Mar, Herpes zoster without complication B02.9 [facility] [id number] [place] [address] 76262 -8930 Dec, Allergic rhinitis J30.9 [facility] [id number] [place] [address] 96642 -3247 Dec, Lumbago M54.5 [facility] [id number] [place] [address] 65765 -9064 18 Oct, 2015 Dysuria R30.0 and Urinary tract infection N39.0 [facility] [address] [place] [address] 43851 -8723 Sep, Acute nasopharyngitis J00 and Strep pharyngitis J02.0 [facility] [id number] [place] [address] 09961- 2655 Jul, Upper respiratory tract infection, unspecified type J06.9 [place] [address] 82956- 2915 Jun, Irritable bowel syndrome without diarrhea K58.9 [place] [id number] [place] [address] 13137- 9080 Jun, [place] [address] 25769- 2375 May, [place] [address] 04781- 5559 May, [place] [address] 25201- 9987 May, Otitis externa of left ear 380.10 [place] [address] 60830- 1221 May, Pain in joint, ankle and foot 719.47 [place] [address] [id number] [place] [address] 10541- 0077 Apr, Pain in joint, ankle and foot 719.47 [place] [id number] [place] [address] 67058- 2608 Mar, Dysuria 788.1 and Incontinence in female 625.6 [place] [address] 11286- 3097 Feb, Plantar fasciitis of right foot 728.71 ; Ankle weakness 719.67 and Ankle pain, chronic 719.47 [place] [address] [id number] [place] [address] 37603- 9047 Feb, [place] [address] [place] [address]- 0783 Feb, Belching 787.3 and Chest wall pain 786.52 [facility] [address] [id number] [place] [address]- 3503 14 Dec, 2014 [facility] [address] [id number] [place] [address]- 9865 Dec, [facility] [address] [id number] [place] [address]- 4098 Nov, [facility] [address] [id number] [place] [address]- 6233 Nov, [facility] [address] [id number] [place] [address]- 1038 Sep, [facility] [address] [id number] [place] [address]- 0333 Sep, [facility] [address] [facility] [id number] [place] [address]- 2621 Sep, [facility] [address] [id number] [place] [address]- 1079 Sep, [facility] [address] [facility] [id number] [place] [address]- 2170 Aug, [facility] [address] [id number] [place] [address]- 1941 Aug, [facility] [address] [id number], [place] [address]- 5949 Aug, [facility] [place] [facility] [address] [id number] [place] [address]- 4476 Aug, [facility] [address] [id number] [place] [address]- 8608 Aug, [facility] [place] [facility] [address] [facility] [id number] [place] 7554 Aug, [facility] [address] [id number], [place] [address]- 6092 Aug, [facility] [place] [facility] [address] [id number] [place] [address]- 3454 Aug, [facility] [place] [facility] [address] [id number] [place] [address]- 2904 Aug, [facility] [place] [facility] [address] [id number] [place] [address]- 7524 Aug, [facility] [place] [facility] [address] [id number] [place] [address]- 4517 Aug, [facility] [place] [facility] [address] [id number] [place] [address]- 6284 Aug, [facility] [place] [facility] [address] [id number] [place] [address]- 8899 Aug, [facility] [place] [facility] [address] [id number] [place] [address]- 7342 Aug, [facility] [place] [facility] [address] [id number], [place] [address]- 0342 Jul, [facility] [place] [facility] [address] [id number] [place] [address]- 4253 Jul, [facility] [place] [facility] [address] [facility] [id number] [place] [address]- 3517 Jul, [facility] [place] [facility] [address] [id number] [place] [address]- 9461 Jul, [facility] [place] [facility] [address] [id number], [place] [address]- 7813 Jul, [facility] [place] [facility] [address] [id number], [place] [address]- 3064 Jul, [facility] [place] [facility] [address] [id number], [place] [address]- 3161 Jul, [facility] [place] [facility] [address] [id number], [place] [address]- 3990 Jun, [facility] [place] [facility] [address] [id number] [place] 7186 Jun, [facility] [place] [facility] [address] [id number] [place] 8473 Jun, [facility] [place] [facility] [address] [id number] [place] 8265 Jun, [facility] [place] [facility] [address] [id number] [place] 3200 Jun, [facility] [place] [facility] [address] [id number] [place] [address]- 3995 Jun, [facility] [place] [facility] [address] [id number] [place] [address]- 1789 Jun, [facility] [place] [facility] [address] [id number] [place] [address]- 6260 Jun, [facility] [place] [facility] [address] [id number] [place] [address]- 2660 Jun, [facility] [place] [facility] [address] [id number] [place] [address]- 4451 Jun, [facility] [place] [facility] [address] [id number] [place] [address]- 2786 Jun, [facility] [place] [facility] [address] [id number] [place] [address]- 2554 Jun, [facility] [place] [facility] [address] [id number] [place] [address]- 7517 Jun, [facility] [place] [facility] [address] [id number] [place] 8233 Jun, [facility] [place] [facility] [address] [id number] [place] [address]- 7852 May, [facility] [place] [facility] [address] [id number] [place] 3331 May, [facility] [place] [facility] [address] [id number] [place] [address]- 7634 May, [facility] [place] [facility] [address] [id number] [place] [address]- 1370 May, [facility] [place] [facility] [address] [id number] [place] [address]- 2802 May, [facility] [place] [facility] [address] [id number] [place] [address]- 9978 Apr, [facility] [place] [facility] [address] [id number] [place] [address]- 8467 Apr, [facility] [place] [facility] [address] [id number] [place] [address]- 5762 Apr, [facility] [place] [facility] [address] [id number] [place] [address]- 9653 Apr, [facility] [place] [facility] [address] [id number] [place] [address]- 1653 Mar, [facility] [place] [facility] [address] [id number] [place] [address]- 5207 Mar, [facility] [place] [facility] [address] [id number] [place] [address]- 9776 Mar, [facility] [place] [facility] [address] [id number] [place] [address]- 4003 Mar, [facility] [place] [facility] [address] [id number] [place] [address]- 9093 Mar, [facility] [place] [facility] [address] [id number] [place] [address]- 7234 Mar, [facility] [place] [facility] [address] [id number] [place] [address] Mar, [facility] [place] [facility] [address] [id number] [place] [address] Mar, [facility] [place] [facility] [address] [id number] [place] [address] Feb, [facility] [place] [facility] [address] [id number] [place] [address] Feb, [facility] [place] [facility] [address] [id number] [place] [address] Feb, [facility] [place] [facility] [address] [id number] [place] [address] Feb, [facility] [place] [facility] [address] [id number] [place] [address] Feb, [facility] [place] [facility] [address] [id number] [place] [address] Feb, [facility] [place] [facility] [address] [id number] [place] [address] Feb, [facility] [place] [facility] [address] [id number] [place] [address]- [address] Feb, [facility] [place] [facility] [address] [id number] [place] [address]- [address] January, [facility] [place] [facility] [address] [id number] [place] [address]- [address] January, [facility] [place] [facility] [address] [id number] [place] [address]- [address] January, [facility] [place] [facility] [address] [id number] [place] [address] 139[address] January, [facility] [place] [facility] [address] [id number] [place] [address]- [address] January, [facility] [place] [facility] [address] [id number] [place] [address]- 40[address] January, [facility] [place] [facility] [address] [id number] [place] [address]- [address] Dec, [facility] [place] [facility] [address] [id number] [place] [address]- [address] Dec, [facility] [place] [facility] [address] [id number] [place] [address]- [address] Dec, [facility] [place] [facility] [address] [id number] [place] [address]- [address] Dec, [facility] [place] [facility] [address] [id number] [place] [address]- [address] Dec, [facility] [place] [facility] [address] [id number] [place] [address]- [address] Dec, [facility] [place] [facility] [address] [id number] [place] [address]- [address] Dec, [facility] [place] [facility] [address] [id number] [place] [address]- [address] Dec, [facility] [place] [facility] [address] [id number] [place] [address] Oct, [facility] [place] [facility] [address] [id number] [place] [address]- [address] Oct, [facility] [place] [facility] [address] [id number] [place] [address]- [address] Aug, [facility] [place] [facility] [address] [id number] [place] [address] Aug, [facility] [place] [facility] [address] [id number] [place] [address] Jul, [facility] [place] [facility] [address] [id number] [place] [address] Jul, [facility] [place] [facility] [address] [id number], [place] [address] Mar, [facility] [place] [facility] [address] [id number] [place] [address] Mar, [facility] [place] [facility] [address] [id number] [place] [address] Mar, [facility] [place] [facility] [address] [id number] [place] [address]- [address] Feb, [facility] [place] [facility] [address] [id number] [place] [address]- [address] Feb, [facility] [address] [id number] [place] [address] Feb, [facility] [address] [id number] [place] [address] January, [facility] [address] [id number] [place] [address] January, [facility] [address] [id number] [place] [address] January, [facility] [address] [id number] [place] [address]- [address] January, [facility] [facility] [address] [id number] [place] [address] January, [facility] [address] [id number] [place] [address] January, [facility] [address] [id number] [place] [address] January, [facility] [address] [id number] [place] [address] Dec, [facility] [address] [id number] [place] [address] Dec, [facility] [address] [id number] [place] [address] Dec, [facility] [address] [id number] [place] [address] Dec, [facility] [address] [id number] [place] [address] Nov, [facility] [place] [facility] [address] [id number] [place] [address] Nov, [facility] [address] [id number] [place] [address] Nov, [facility] [place] [facility] [address] [id number] [place] [address] 27 Oct, 2012 [facility] [address] [id number] [place] [address] 25 Oct, 2012 [facility] [place] [facility] [address] [id number] [place] [address] 20 Oct, 2012 [facility] [address] [id number] [place] [address] Oct, [facility] [address] [id number] [place] [address] Oct, [facility] [address] [id number] [place] [address] 05 Oct, 2012 [facility] [address] [facility] [id number] [place] [address] Sep, [facility] [address] [id number] [place] [address] Sep, [facility] [address] [id number] [place] [address] Sep, [facility] [address] [facility] [id number] [place] [address] Sep, [facility] [address] [facility] [id number] [place] [address] Sep, [facility] [address] [id number] [place] [address] Aug, [facility] [place] [facility] [address] [id number] [place] [address] Aug, [facility] [place] [facility] [address] [id number] [place] [address] Aug, [facility] [place] [facility] [address] [id number] [place] [address] Aug, [facility] [place] [facility] [address] [id number], [place] [address] Aug, [facility] [place] [facility] [address] [id number] [place] [address] Aug, [facility] [place] [facility] [address] [id number] [place] [address] Jul, [facility] [place] [facility] [address] [id number] [place] [address] Jul, [facility] [place] [facility] [address] [id number] [place] [address] Jul, [facility] [place] [facility] [address] [id number] [place] [address] Jul, [facility] [place] [facility] [address] [id number] [place] [address] Jul, [facility] [place] [facility] [address] [id number] [place] [address] Jul, [facility] [place] [facility] [address] [id number] [place] [address] Jul, [facility] [place] [facility] [address] [id number] [place] [address] 15 Jul, 2012 [facility] [place] [facility] [address] [id number] [place] [address] 3967 Jul, [facility] [place] [facility] [address] [id number], [place] [address] Jul, [facility] [place] [facility] [address] [id number], [place] [address] Jul, [facility] [place] [facility] [address] [id number] [place] [address] Jul, [facility] [place] [facility] [address] [id number] [place] [address] 4[address] Jul, [facility] [place] [facility] [address] [id number] [place] [address] 270[address] Jul, [facility] [place] [facility] [address] [id number] [place] [address] 08 Jul, 2012 [facility] [place] [facility] [address] [id number] [place] [address]- [address]36 08 Jul, 2012 [facility] [place] [facility] [address] [id number] [place] [address] Jul, [facility] [place] [facility] [address] [id number] [place] [address] Jul, [facility] [place] [facility] [address] [id number] [place] [address]- [address] Jul, [facility] [place] [facility] [address] [id number] [place] [address] Jun, [facility] [place] [facility] [address] [id number] [place] [address] Jun, [facility] [place] [facility] [address] [id number] [place] [address]96 May, [facility] [address] [id number] [place] [address] Apr, [facility] [place] [facility] [address] [id number] [place] [address] Mar, [facility] [place] [facility] [address] [facility] [id number] [place] [address] 25[address] Feb, [facility] [place] [facility] [address] [id number] [place] [address]- [address]46 Feb, [facility] [place] [facility] [address] [id number] [place] [address] 2546 Feb, [facility] [place] [facility] [address] [id number] [place] [address] 2546 January, [facility] [place] [facility] [address] [id number] [place] [address] January, [facility] [place] [facility] [address] [id number] [place] [address]- [address] Dec, [facility] [place] [facility] [address] [id number] [place] [address]32 Dec, [facility] [place] [facility] [address] [id number] [place] [address]- [address]4 08 Nov, 2011 [facility] [place] [facility] [address] [id number] [place] [address]- [address] 12 Aug, 2011 [facility] [place] [facility] [address] [id number] [place] [address]- 8427 Jul, [facility] [place] [facility] [address] [id number] [place] [address]- [address]87 16 Jul, 2011 [facility] [place] [facility] [address] [id number] [place] [address]- 466[address] 16 Jul, 2011 [facility] [place] [facility] [address] [id number] [place] [address]- [address] 12 Jun, 2011 [facility] [place] [facility] [address] [id number] [place] [address]- 8992 12 Jun, 2011 [facility] [place] [facility] [address] [id number] [place] [address]- 9130 14 May, 2011 [facility] [place] [facility] [address] [id number] [place] [address]- 9641 10 Apr, 2011 [facility] [place] [facility] [address] [id number] [place] [address]- [address] January, [facility] [place] [facility] [address] [id number] [place] [address]- 4918 13 Dec, 2010 [facility] [place] [facility] [address] [id number] [place] [address]- [address] 16 Nov, 2010 [facility] [place] [facility] [address] [id number] [place] [address]- 7150 10 Oct, 2010 [facility] [place] [facility] [address] [id number] [place] [address]- 6909 14 Jun, 2010 [facility] [place] [facility] [address] [facility] [id number] [place] [address]- [address] 14 Jun, 2010 [facility] [address] [facility] [id number], [place] [address] Oct, [facility] [address] [facility] [id number], [place] [address] Aug, [facility] [address] [facility] [id number], [place] [address] Jul, [facility] [address] [facility] [id number], [place] [address] Dec, IMMUNIZATIONS No Known Immunizations SOCIAL HISTORY Never Assessed REASON FOR VISIT f/u PLAN OF CARE Activity Details Follow Up 2 Months Reason: f/u VITAL SIGNS Height 61 in 2018-01-23 Weight 178.7 lbs 2018-01-23 Heart Rate 80 bpm 2018-01-23 Respiratory Rate 20 2018-01-23 BMI 33.76 kg/m2 2018-01-23 Blood pressure systolic 108 mmHg 2018-01-23 Blood pressure diastolic 72 mmHg 2018-01-23 MEDICATIONS Medication Instructions Dosage Frequency Start Date End Date Duration Status Zoloft 50 mg Orally Once a day 1 tablet 24h Sep, 30 days Active Unisom Active Flonase 50 MCG/ACT Nasally Once a day 2 sprays in each nostril 24h Nov, 30 day(s) Not-Taking Diflucan 150 MG 1 tablet Nov, 1 dose Not-Taking SudoGest 60 mg Orally every 6 hrs [...]
--- OUTSIDE RECORDS SUMMARY | 2018-12-13 17:55 | XMS REPORT ---
Author Author ZAYRA GOMEZ Organization [facility] Address [address] [place] [address] Care Team Providers Care Chief Technician X Ray Name Role Phone ZAYRA GOMEZ Unavailable PROBLEMS Type Condition ICD9-CM Code ECI80-AZ Code Onset Dates Condition Status SNOMED Code Problem Depression, unspecified depression type F32.9 Active 47562127 Problem Seasonal allergic rhinitis, unspecified allergic rhinitis trigger J30.2 Active 808771527 Problem Irregular periods/menstrual cycles N92.6 Active 49574721 Problem Seasonal allergies J30.2 Active 625919210 Problem Missed period N92.6 Active 02448655 Problem Other headache syndrome G44.89 Active 174148505 Problem Anemia, O90.81 Active 335917019 Problem DANIELLA (generalized anxiety disorder) F41.1 Active 68563132 Problem Dysthymic disorder F34.1 Active 97112010 ALLERGIES Substance Reaction Event Type Date Status Cefaclor Unknown Drug Allergy Dec, Active ENCOUNTERS Encounter Location Date Diagnosis [place] [id number] [place] [address] 39961- 9691 Apr, [facility] [address] [place] [id number] [place] [address] 08485 -9921 Mar, Pain of left calf M79.662 and Muscle spasm of left calf M62.831 [facility] [address] [place] [id number] [place] [address] 75626- 7243 Mar, care in second trimester Z34.92 [place] [address] [place] [id number] [place] [address] 86697- 7624 Mar, Bilateral impacted cerumen H61.23 [facility] [address] [id number] [place] [address] 17295- 3572 Feb, [facility] [address] [id number] [place] [address] 42385 -0968 23 Feb, 2018 [facility] [id number] [place] [address] 55655- 5123 20 Feb, 2018 Normal in multigravida Z34.80 [facility] [id number] [place] [address] 86657- 9397 13 Feb, 2018 Painful urination R30.9 and Encounter for supervision of normal in second trimester Z34.92 [facility] [address] [id number] [place] [address] 09748 -6475 07 Feb, 2018 Seasonal allergies J30.2 [place] [address] 11578- 2512 Feb, [facility] [address] [id number] [place] [address] 88714- 9770 Feb, [facility] [id number] [place] [address] 77955 -5480 January, Seasonal allergic rhinitis, unspecified trigger J30.2 [facility] [id number] [place] [address] 43134 -4339 January, [facility] [id number] [place] [address] 35571 -1623 January, Viral gastroenteritis A08.4 [place] [address] [place] [id number] [place] [address] 24446- 4596 January, [facility] [address] [id number] [place] [address] 67473- 6578 January, care in first trimester Z34.91 [facility] [address] [id number] [place] [address] 52824- 3004 January, [facility] [id number] [place] [address] 36345 -1836 January, Left ankle pain, unspecified chronicity M25.572 [place] [address] [place] [address]- 6823 January, [facility] [address] [id number] [place] [address] 45279- 5808 January, Dysthymic disorder F34.1 and DANIELLA (generalized anxiety disorder) F41.1 [facility] [address] [id number] [place] [address] 73464 -7419 January, Impacted cerumen of both ears H61.23 [facility] [address] [id number] [place] [address] 55565- 3061 Dec, [facility] [address] 20089- 8334 Dec, in multigravida Z34.80 [place] [address] 62510- 9685 Dec, DANIELLA (generalized anxiety disorder) F41.1 and Dysthymic disorder F34.1 [facility] [address] [id number] [place] [address] 60235- 6734 Dec, [facility] [address] 60552- 0887 Nov, [facility] [address] [place] [id number] [place] [address] 88229- 1736 Nov, [place] [address] [place] [id number] [place] [address] 02738- 5735 Nov, Painful urination R30.9 ; Vaginal yeast infection B37.3 and Early stage of Z34.90 [facility] [address] [place] [id number] [place] [address] 64535- 5385 Nov, in multigravida Z34.80 [facility] [address] [place] [id number] [place] [address] 20777- 3572 Nov, Dysfunction of right eustachian tube H69.81 and Bilateral impacted cerumen H61.23 [facility] [address] [place] [address]- 3666 Nov, [facility] [address] [id number] [place] [address] 86702- 4011 Nov, [facility] [address] [id number] [place] [address] 64623- 9571 Nov, [facility] [address] 64019 -5582 Nov, Missed period N92.6 [facility] [address] [place] [id number] [place] [address] 23908- 6124 Sep, DANIELLA (generalized anxiety disorder) F41.1 and Dysthymic disorder F34.1 [facility] [address] [id number] [place] [address] 26049 -2405 Aug, Acute nasopharyngitis J00 [place] [address] 67275- 2329 Jul, Irregular periods/menstrual cycles N92.6 [place] [address] [place] [id number] [place] [address] 00397- 3245 Jul, Bilateral impacted cerumen H61.23 [place] [address] 72723- 8311 Jul, DANIELLA (generalized anxiety disorder) F41.1 and Dysthymic disorder F34.1 [place] [address] [place] [id number] [place] [address] 77222- 7356 Jun, [place] [address] [place] [id number] [place] [address] 83153- 2405 Jun, Dysthymic disorder F34.1 [place] [address] 44222- 4763 Jun, Anemia, O90.81 ; Lower abdominal pain R10.30 ; Allergic contact dermatitis due to adhesives L23.1 and Other headache syndrome G44.89 [place] [address] 36860- 9784 04 Jun, 2017 39 weeks gestation of Z3A.39 [place] [address] 92469- 9703 27 May, 2017 care in third trimester Z34.93 [facility] [address] 40338 -7702 24 May, 2017 Acute seasonal allergic rhinitis, unspecified trigger J30.2 [place] [address] 89256- 0598 20 May, 2017 Normal in multigravida Z34.80 [facility] [place] [address] 16919 -9530 17 May, 2017 Urinary frequency R35.0 and Pain of round ligament N94.9 [place] [address] 08767- 6577 13 May, 2017 35 weeks gestation of Z3A.35 [place] [address] 05540- 8212 Apr, High risk sexual behavior Z72.51 and 33 weeks gestation of Z3A.33 [place] [address] 91857- 0635 Apr, care in third trimester Z34.93 [facility] [place] [address] 78757 -4463 Apr, Bilateral impacted cerumen H61.23 [place] [address] 48637- 1419 Apr, 30 weeks gestation of Z3A.30 and Encounter for immunization Z23 [place] [address] 99546- 6881 Mar, 28 weeks gestation of Z3A.28 [place] [address] 61897- 5509 Mar, [place] [address] [address]- 8346 Mar, [facility] [address] [id number] [place] [address] 55430- 6433 Mar, [facility] [address] [id number] [place] [address] 40833- 9944 Mar, 26 weeks gestation of Z3A.26 [facility] [address] [place] [id number] [place] [address] 20593 -4055 Mar, Acute back pain M54.9 [place] [address] [place] [id number] [place] [address] 20648- 7528 Feb, 24 weeks gestation of Z3A.24 [facility] [address] [place] [id number] [place] [address] 03186 -2714 27 Feb, 2017 Lower abdominal pain R10.30 [facility] [address] [place], [place] [id number] [place] [address] 63982 -5729 Feb, Gastroenteritis and colitis, viral A08.4 [place] [address] [place] [id number] [place] [address] 04471- 8690 14 Feb, 2017 care in second trimester Z34.92 [place] [address] [place] [id number] [place] [address] 21916- 3567 07 Feb, 2017 [facility] [address] [place], [place] [id number] [place] [address] 24244 -9516 04 Feb, 2017 Abscess L02.91 [facility] [address] [place], [place] [id number] [place] [address] 14135 -7954 Feb, Vaginal flavia B37.3 [place] [address] [place] [id number] [place] [address] 96032- 4203 January, 20 weeks gestation of Z3A.20 [facility] [address] [place] [id number] [place] [address] 32340- 4436 January, [facility] [address] 16677 -3061 January, Seasonal allergic rhinitis, unspecified allergic rhinitis trigger J30.2 [facility] [address] 77093 -3016 January, Dermatitis L30.9 and Bug bites, initial encounter W57.XXXA [address] 61309- 6967 January, Sore throat J02.9 and Seasonal allergic rhinitis, unspecified allergic rhinitis trigger J30.2 [place] [address] 99515- 4539 January, 16 weeks gestation of Z3A.[address] 71167- 1108 Dec, care in first trimester Z34.[address] 62633- 8184 Nov, care in first trimester Z34.91 and Normal in multigravida Z34.80 [facility] [address] 98322 -6613 Oct, Nausea and vomiting during O21.9 [place] [address] [place] [id number] [place] [address] 81696- 9579 Oct, [place] [address] 69721- 5962 Oct, [address] 14123- 1433 Oct, Encounter for test, result unknown Z32.[address] 53761- 9823 Sep, Irregular periods/menstrual cycles N92.6 ; Sore throat J02.9 ; Nausea R11.0 and Right ear impacted cerumen H61.21 [facility] [address] [place] [address] 65511 -9845 05 Jul, 2016 Vaginal discharge N89.8 ; Other specified bacterial agents as the cause of diseases classified elsewhere B96.89 and Acute vaginitis N76.0 [place] [address] [place] [id number] [place] [address] 47720- 9980 10 Jun, 2016 Depression, unspecified depression type F32.9 [place] [address] 63254- 6295 23 May, 2016 Vaginal candidiasis B37.3 [place] [address] 67877- 2293 20 May, 2016 Acute pharyngitis, unspecified etiology J02.9 [place] [address] [place] [id number] [place] [address] 30074- 1974 19 May, 2016 Depression, unspecified depression type F32.9 [place] [address] [place] [id number] [place] [address] 15014- 5930 12 May, 2016 Depression, unspecified depression type F32.9 [place] [address] [place] [id number] [place] [address] 36459- 3468 12 May, 2016 Dysthymic disorder F34.1 [facility] [place] [address] [place] [id number] [place] [address] 01247 -4545 10 Apr, 2016 Acute suppurative otitis media of right ear without spontaneous rupture of tympanic membrane, recurrence not specified H66.001 [facility] [address] [place] [id number] [place] [address] 98857 -6674 Mar, Herpes zoster without complication B02.9 [facility] [address] [place] [id number] [place] [address] 97523 -2369 18 Dec, 2015 Allergic rhinitis J30.9 [facility] [address] [place] [id number] [place] [address] 61764 -5818 03 Dec, 2015 Lumbago M54.5 [facility] [address] [place] [id number] [place] [address] 27664 -8204 Oct, Dysuria R30.0 and Urinary tract infection N39.0 [facility] [address] [id number] [place] [address] 24823 -4113 Sep, Acute nasopharyngitis J00 and Strep pharyngitis J02.0 [facility] [address] [place] [id number] [place] [address] 14157- 9985 Jul, Upper respiratory tract infection, unspecified type J06.9 [place] [address] [place] [id number] [place] [address] 98096- 5767 Jun, Irritable bowel syndrome without diarrhea K58.9 [place] [address] [place] [id number] [place] [address] 94823- 2415 Jun, [place] [address] [place] [id number] [place] [address] 90625- 3056 May, [place] [address] 75806- 3503 May, [place] [address] [place] [id number] [place] [address] 75196- 1262 May, Otitis externa of left ear 380.10 [place] [address] [place] [id number] [place] [address] 03407- 2568 May, Pain in joint, ankle and foot 719.47 [place] [address] [place] [id number] [place] [address] 57905- 5729 Apr, Pain in joint, ankle and foot 719.47 [place] [address] [place] [id number] [place] [address] 08777- 0301 Mar, Dysuria 788.1 and Incontinence in female 625.6 [place] [address] [place] [id number] [place] [address] 87012- 5945 Feb, Plantar fasciitis of right foot 728.71 ; Ankle weakness 719.67 and Ankle pain, chronic 719.47 [place] [address] [place] [id number] [place] [address]- 1598 Feb, [facility] [address] [id number] [place] [address]- 8745 Feb, Belching 787.3 and Chest wall pain 786.52 [facility] [address] [id number] [place] [address]- 9362 Dec, [facility] [address] [id number] [place] [address]- 3523 Dec, [facility] [address] [id number] [place] [address]- 6242 Nov, [facility] [address] [id number] [place] [address]- 4193 Nov, [facility] [address] [facility] [id number] [place] [address]- 8693 Sep, [facility] [address] [facility] [id number], [place] [address]- 3311 Sep, [facility] [address] [facility] [id number] [place] [address]- 1121 Sep, [facility] [address] [facility] [id number], [place] [address]- 0389 Sep, [facility] [address] [facility] [id number], [place] [address]- 9623 Aug, [facility] [address] [id number], [place] [address]- 8283 Aug, [facility] [place] [facility] [address] [id number] [place] [address]- 1230 Aug, [facility] [address] [id number], [place] [address]- 0342 Aug, [facility] [place] [facility] [address] [facility] [id number], [place] [address]- 9375 Aug, [facility] [address] [id number], [place] [address]- 7997 04 Aug, 2014 [facility] [place] [facility] [address] [id number] [place] [address]- 6749 Aug, [facility] [place] [facility] [address] [id number] [place] [address]- 8801 Aug, [facility] [place] [facility] [address] [facility] [id number] [place] [address]- 5702 Aug, [facility] [place] [facility] [address] [id number] [place] [address]- 4495 Aug, [facility] [place] [facility] [address] [facility] [id number] [place] [address]- 9972 Aug, [facility] [place] [facility] [address] [id number] [place] [address]- 7806 Aug, [facility] [place] [facility] [address] [facility] [id number] [place] [address]- 5942 Aug, [facility] [place] [facility] [address] [id number] [place] [address]- 2824 Aug, [facility] [place] [facility] [address] [facility] [id number] [place] [address]- 7421 Jul, [facility] [place] [facility] [address] [facility] [id number] [place] [address]- 6421 Jul, [facility] [place] [facility] [address] [id number], [place] [address]- 1795 Jul, [facility] [place] [facility] [address] [id number], [place] [address]- 6384 Jul, [facility] [place] [facility] [address] [id number], [place] [address]- 6648 Jul, [facility] [place] [facility] [address] [facility] [id number], [place] [address]- 0024 Jul, [facility] [place] [facility] [address] [facility] [id number], [place] [address]- 1506 Jul, [facility] [place] [facility] [address] [id number] [place] 2647 Jun, [facility] [place] [facility] [address] [id number] [place] [address]- 0094 Jun, [facility] [place] [facility] [address] [id number] [place] [address]- 1583 Jun, [facility] [place] [facility] [address] [id number] [place] 4316 Jun, [facility] [place] [facility] [address] [id number] [place] [address]- 3456 Jun, [facility] [place] [facility] [address] [id number] [place] [address]- 4025 Jun, [facility] [place] [facility] [address] [id number] [place] [address]- 6419 Jun, [facility] [place] [facility] [address] [id number] [place] [address]- 0704 Jun, [facility] [place] [facility] [address] [id number] [place] [address]- 0154 Jun, [facility] [place] [facility] [address] [id number] [place] [address]- 6364 Jun, [facility] [place] [facility] [address] [id number] [place] [address]- 0169 Jun, [facility] [place] [facility] [address] [id number] [place] [address]- 0627 Jun, [facility] [place] [facility] [address] [id number] [place] [address]- 5553 Jun, [facility] [place] [facility] [address] [id number] [place] 0903 Jun, [facility] [place] [facility] [address] [id number] [place] [address]- 9652 May, [facility] [place] [facility] [address] [id number] [place] [address]- 3361 May, [facility] [place] [facility] [address] [id number] [place] [address]- 2393 May, [facility] [place] [facility] [address] [id number] [place] [address]- 4222 May, [facility] [place] [facility] [address] [id number] [place] [address]- 6698 May, [facility] [place] [facility] [address] [id number] [place] [address]- 0565 Apr, [facility] [place] [facility] [address] [id number] [place] [address]- 4552 Apr, [facility] [place] [facility] [address] [id number] [place] [address]- 8095 Apr, [facility] [place] [facility] [address] [id number] [place] [address]- 6652 Apr, [facility] [place] [facility] [address] [id number] [place] [address]- 2151 Mar, [facility] [place] [facility] [address] [id number] [place] [address]- 8252 Mar, [facility] [place] [facility] [address] [id number] [place] [address]- 8430 Mar, [facility] [place] [facility] [address] [id number] [place] [address]- 0498 Mar, [facility] [place] [facility] [address] [id number] [place] [address]- 7033 Mar, [facility] [place] [facility] [address] [id number] [place] [address]- 0985 Mar, [facility] [place] [facility] [address] [id number] [place] [address]- 6514 Mar, [facility] [place] [facility] [address] [id number] [place] [address]- 6286 Mar, [facility] [place] [facility] [address] [id number] [place] [address]- 4099 Feb, [facility] [place] [facility] [address] [id number] [place] [address] Feb, [facility] [place] [facility] [address] [id number] [place] [address] Feb, [facility] [place] [facility] [address] [id number] [place] [address] Feb, [facility] [place] [facility] [address] [id number] [place] [address] Feb, [facility] [place] [facility] [address] [id number] [place] [address] Feb, [facility] [place] [facility] [address] [id number] [place] [address] Feb, [facility] [place] [facility] [address] [id number] [place] [address] Feb, [facility] [place] [facility] [address] [id number] [place] [address] January, [facility] [place] [facility] [address] [id number] [place] [address] January, [facility] [place] [facility] [address] [id number] [place] [address] January, [facility] [place] [facility] [address] [id number] [place] [address] January, [facility] [place] [facility] [address] [id number] [place] [address] January, [facility] [place] [facility] [address] [id number] [place] [address] January, [facility] [place] [facility] [address] [id number] [place] [address]- [address] Dec, [facility] [place] [facility] [address] [id number] [place] [address] Dec, [facility] [place] [facility] [address] [id number] [place] [address]- [address] Dec, [facility] [place] [facility] [address] [id number] [place] [address]265 Dec, [facility] [place] [facility] [address] [id number] [place] [address] Dec, [facility] [place] [facility] [address] [id number] [place] [address] Dec, [facility] [place] [facility] [address] [id number] [place] [address]- [address] Dec, [facility] [place] [facility] [address] [id number] [place] [address] Dec, [facility] [address] [id number] [place] [address] Oct, [facility] [place] [facility] [address] [id number] [place] [address]- [address] Oct, [facility] [place] [facility] [address] [id number] [place] [address] Aug, [facility] [place] [facility] [address] [id number] [place] [address]- [address] Aug, [facility] [place] [facility] [address] [id number] [place] [address] Jul, [facility] [place] [facility] [address] [id number] [place] [address] Jul, [facility] [place] [facility] [address] [id number] [place] [address] Mar, [facility] [place] [facility] [address] [id number] [place] [address]- [address] Mar, [facility] [place] [facility] [address] [id number] [place] [address] Mar, [facility] [place] [facility] [address] [id number] [place] [address] Feb, [facility] [address] [id number] [place] [address] Feb, [facility] [address] [id number] [place] [address]- 4[address] Feb, [facility] [address] [id number] [place] [address] January, [facility] [address] [id number] [place] [address] January, [facility] [address] [id number] [place] [address] January, [facility] [address] [id number] [place] [address] January, [facility] [address] [id number] [place] [address] January, [facility] [address] [id number] [place] [address] January, [facility] [address] [id number] [place] [address]- [address] January, [facility] [address] [id number] [place] [address]- [address] Dec, [facility] [address] [id number] [place] [address]- [address] Dec, [facility] [place] [facility] [address] [id number] [place] [address]- [address] Dec, [facility] [place] [facility] [address] [id number] [place] [address]- [address] Dec, [facility] [place] [facility] [address] [id number] [place] [address] Nov, [facility] [facility] [address] [id number] [place] [address] Nov, [facility] [place] [facility] [address] [id number] [place] [address] Nov, [facility] [address] [id number] [place] [address] Oct, [facility] [place] [facility] [address] [id number] [place] [address] Oct, [facility] [facility] [address] [id number] [place] [address] Oct, [facility] [place] [facility] [address] [id number] [place] [address] Oct, [facility] [place] [facility] [address] [id number] [place] [address] Oct, [facility] [address] [id number] [place] [address] Oct, [facility] [facility] [address] [id number] [place] [address] Sep, [facility] [facility] [address] [id number] [place] [address] Sep, [facility] [address] [id number] [place] [address] Sep, [facility] [address] [id number] [place] [address] Sep, [facility] [place] [facility] [address] [id number] [place] [address] Sep, [facility] [facility] [address] [id number] [place] [address] Aug, [facility] [facility] [address] [id number] [place] [address] Aug, [facility] [facility] [address] [id number] [place] [address] Aug, [facility] [facility] [address] [id number] [place] [address] Aug, [facility] [place] [facility] [address] [id number] [place] [address] Aug, [facility] [place] [facility] [address] [id number] [place] [address] Aug, [facility] [place] [facility] [address] [id number] [place] [address] Jul, [facility] [place] [facility] [address] [id number] [place] [address] Jul, [facility] [place] [facility] [address] [id number] [place] [address] Jul, [facility] [place] [facility] [address] [id number] [place] [address]- [address]65 Jul, [facility] [place] [facility] [address] [id number] [place] [address] Jul, [facility] [place] [facility] [address] [id number] [place] [address] Jul, [facility] [place] [facility] [address] [id number] [place] [address]- [address] 15 Jul, 2012 [facility] [facility] [address] [id number] [place] [address]- [address] 15 Jul, 2012 [facility] [facility] [address] [id number], [place] [address] 14 Jul, 2012 [facility] [address] [id number], [place] [address] Jul, [facility] [facility] [address] [id number] [place] [address]- 2768 Jul, [facility] [place] [facility] [address] [id number] [place] [address]- [address] 09 Jul, 2012 [facility] [place] [facility] [address] [id number] [place] [address]- [address] 08 Jul, 2012 [facility] [facility] [address] [id number] [place] [address]- [address] 08 Jul, 2012 [facility] [facility] [address] [id number] [place] [address]- [address] Jul, [facility] [facility] [address] [id number] [place] [address]- [address] Jul, [facility] [place] [facility] [address] [id number] [place] [address] Jul, [facility] [facility] [address] [id number] [place] [address]- [address] Jul, [facility] [facility] [address] [id number] [place] [address], [place] [address]- [address] Jul, [facility] [place] [facility] [address] [id number] [place] [address] Jun, [facility] [place] [facility] [address] [id number] [place] [address] Jun, [facility] [facility] [address] [id number] [place] [address] May, [facility] [place] [facility] [address] [id number] [place] [address] Apr, [facility] [facility] [address] [id number] [place] [address] Mar, [facility] [facility] [address] [id number] [place] [address]- [address] Feb, [facility] [address] [id number] [place] [address]- [address] Feb, [facility] [address] [id number] [place] [address] Feb, [facility] [address] [id number] [place] [address] January, [facility] [address] [id number] [place] [address] 2016 January, [facility] [address] [id number] [place] [address]- [address]81 Dec, [facility] [address] [id number] [place] [address] Dec, [facility] [address] [id number] [place] [address] Nov, [facility] [facility] [address] [id number] [place] [address]- [address] Aug, [facility] [facility] [address] [id number] [place] [address]- 2410 Jul, [facility] [address] [id number] [place] [address]- 43[address] Jul, [facility] [facility] [address] [id number] [place] [address]- 98[address] Jul, [facility] [address] [id number] [place] [address]- 30[address] Jun, [facility] [address] [id number] [place] [address]- 4795 Jun, [facility] [place] [facility] [address] [id number] [place] [address]- [address] 14 May, 2011 [facility] [facility] [address] [id number] [place] [address]- 2854 Apr, [facility] [address] [id number] [place] [address]- 4984 January, [facility] [facility] [address] [id number] [place] [address]- 9947 Dec, [facility] [facility] [address] [id number] [place] [address] 16 Nov, 2010 [facility] [address] [id number] [place] [address] 10 Oct, 2010 [facility] [address] [id number], [place] [address] 14 Jun, 2010 [facility] [address] [id number] [address] 14 Jun, 2010 [facility] [address] [id number] [address] Oct, [facility] [id number] [address] Aug, [facility] [id number] [address] Jul, [facility] [id number] [address] Dec, IMMUNIZATIONS No Known Immunizations SOCIAL HISTORY Never Assessed REASON FOR VISIT OB 4wk f/u. gary PLAN OF CARE Activity Details Follow Up 4 Weeks Reason: VITAL SIGNS Height 61 in 2018-01-07 Weight 180 lbs 2018-01-07 Temperature 98.4 degrees Fahrenheit 2018-01-07 Heart Rate 80 bpm 2018-01-07 Respiratory Rate 20 2018-01-07 BMI 34.011 kg/m2 2018-01-07 Blood pressure systolic 114 mmHg 2018-01-07 Blood pressure diastolic 70 mmHg 2018-01-07 MEDICATIONS Medication Instructions Dosage Frequency Start Date End Date Duration Status Zoloft 50 mg Orally Once a day 1 tablet 24h Sep, Active Vitamin Active Diflucan 150 MG 1 tablet Nov, 1 dose Not-Taking SudoGest 60 mg Orally every 6 hrs 1 tablet as needed 6h Nov, 05 days Not-Taking Flonase 50 MCG/ACT Nasally Once a day 2 sprays in each nostril 24h Nov, 30 day(s) Not-Taking Unisom Active RESULTS Name Result Date Reference Range UA OB DIP (IN HOUSE) 2018-01-07 Glucose neg Protein neg PROCEDURES Procedure Date Ordered Result Body Site URINE-NO MICRO January 07, 2018 INSTRUCTIONS MEDICATIONS ADMINISTERED No Known Medications [...]
--- OUTSIDE RECORDS SUMMARY | 2018-12-13 17:55 | XMS REPORT ---
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 Name Role Phone LASHAWN MOODY Unavailable Unavailable PROBLEMS Type Condition ICD9-CM Code OZU02-IK Code Onset Dates Condition Status SNOMED Code Problem Depression, unspecified depression type F32.9 Active 40103599 Problem Seasonal allergic rhinitis, unspecified allergic rhinitis trigger J30.2 Active 274974509 Problem Irregular periods/menstrual cycles N92.6 Active 46219545 Problem Seasonal allergies J30.2 Active 049363525 Problem Missed period N92.6 Active 05526239 Problem Other headache syndrome G44.89 Active 781149432 Problem Anemia, O90.81 Active 969253821 Problem DANIELLA (generalized anxiety disorder) F41.1 Active 08318010 Problem Dysthymic disorder F34.1 Active 23965639 ALLERGIES Substance Reaction Event Type Date Status Cefaclor Unknown Drug Allergy January, Active ENCOUNTERS Encounter Location Date Diagnosis [facility] [id number] [place] [address] 42889- 8578 Apr, [facility] [id number] [place] [address] 08873 -3531 Mar, Pain of left calf M79.662 and Muscle spasm of left calf M62.831 [facility] [id number] [place] [address] 74810- 3466 Mar, care in second trimester Z34.92 [facility] [address] 55120- 3116 Mar, Bilateral impacted cerumen H61.23 [facility] [id number] [place] [address] 20793- 8575 Feb, [facility] [id number] [place] [address] 44317 -3615 Feb, [facility] [id number] [place] [address] 68759- 3196 20 Feb, 2018 Normal in multigravida Z34.80 [facility] [id number] [place] [address] 22093- 9744 13 Feb, 2018 Painful urination R30.9 and Encounter for supervision of normal in second trimester Z34.92 [facility] [id number] [place] [address] 75958 -2833 07 Feb, 2018 Seasonal allergies J30.2 [place] [address] 34425- 6760 Feb, [facility] [id number] [place] [address] 80279- 8041 Feb, [facility] [id number] [place] [address] 11095 -4070 January, Seasonal allergic rhinitis, unspecified trigger J30.2 [facility] [id number] [place] [address] 04181 -4879 January, [facility] [id number] [place] [address] 06105 -2760 January, Viral gastroenteritis A08.4 [place] [id number] [place] [address] 06499- 4104 January, [facility] [id number] [place] [address] 93687- 4505 January, care in first trimester Z34.91 [facility] [id number] [place] [address] 30473- 2381 January, [facility] [id number] [place] [address] 69767 -0411 January, Left ankle pain, unspecified chronicity M25.572 [facility] [id number] [place] [address] 05454- 9086 January, [facility] [id number] [place] [address] 33108- 1564 January, Dysthymic disorder F34.1 and DANIELLA (generalized anxiety disorder) F41.1 [facility] [id number] [place] [address] 13059 -6129 January, Impacted cerumen of both ears H61.23 [facility] [id number] [place] [address] 09639- 3935 Dec, [facility] [id number] [place] [address] 29523- 8703 Dec, in multigravida Z34.80 [place] [id number] [place] [address] 79885- 8923 Dec, DANIELLA (generalized anxiety disorder) F41.1 and Dysthymic disorder F34.1 [facility] [id number] [place] [address] 08656- 9316 Dec, [facility] [id number] [place] [address] 92408- 3140 Nov, [place] [id number] [place] [address] 13028- 8141 Nov, [place] [id number] [place] [address] 45491- 5754 Nov, Painful urination R30.9 ; Vaginal yeast infection B37.3 and Early stage of Z34.90 [facility] [id number] [place] [address] 22477- 3540 Nov, in multigravida Z34.80 [place] [id number] [place] [address] 21926- 4361 Nov, Dysfunction of right eustachian tube H69.81 and Bilateral impacted cerumen H61.23 [facility] [id number] [place] [address] 19858- 2307 Nov, [facility] [id number] [place] [address] 23110- 9301 Nov, [place] [id number] [place] [address] 04922- 6109 Nov, [facility]ALK IN [facility] [id number] [place] [address] 01123 -9258 Nov, Missed period N92.6 [place] [id number] [place] [address] 33554- 9578 Sep, DANIELLA (generalized anxiety disorder) F41.1 and Dysthymic disorder F34.1 [facility]ALK IN [facility] [id number] [place] [address] 51629 -8428 Aug, Acute nasopharyngitis J00 [place] [id number] [place] [address] 72242- 8655 Jul, Irregular periods/menstrual cycles N92.6 [place] [id number] [place] [address] 63589- 6683 Jul, Bilateral impacted cerumen H61.23 [place] [id number] [place] [address] 69645- 9059 Jul, DANIELLA (generalized anxiety disorder) F41.1 and Dysthymic disorder F34.1 [place] [id number] [place] [address] 81078- 7096 Jun, [place] [id number] [place] [address] 81727- 7720 Jun, Dysthymic disorder F34.1 [place] [id number] [place] [address] 31214- 8257 Jun, Anemia, O90.81 ; Lower abdominal pain R10.30 ; Allergic contact dermatitis due to adhesives L23.1 and Other headache syndrome G44.89 [place] [address] 97799- 6220 Jun, 39 weeks gestation of Z3A.39 [place] [id number] [place] [address] 37125- 0472 27 May, 2017 care in third trimester Z34.93 [facility] [place] [id number] [place] [address] 48424 -8442 24 May, 2017 Acute seasonal allergic rhinitis, unspecified trigger J30.2 [place] [address] 60684- 5453 20 May, 2017 Normal in multigravida Z34.80 [facility] WALK IN [address] 58072 -1762 17 May, 2017 Urinary frequency R35.0 and Pain of round ligament N94.9 [place] [address] 91528- 7569 13 May, 2017 35 weeks gestation of Z3A.35 [place] [address] 00945- 3290 Apr, High risk sexual behavior Z72.51 and 33 weeks gestation of Z3A.33 [place] [address] 73565- 5736 Apr, care in third trimester Z34.93 [facility] [place] [id number] [place] [address] 09596 -8699 Apr, Bilateral impacted cerumen H61.23 [place] [address] 23597- 9310 Apr, 30 weeks gestation of Z3A.30 and Encounter for immunization Z23 [place] [address] 63512- 9420 Mar, 28 weeks gestation of Z3A.28 [place] [address] 27205- 2540 Mar, [place] [id number] [address]- 7502 13 Mar, 2017 [facility] [id number] [place] [address] 44124- 1155 Mar, [facility] [id number] [place] [address] 59564- 4252 Mar, 26 weeks gestation of Z3A.26 [facility] [id number] [place] [address] 70072 -9556 Mar, Acute back pain M54.9 [place] [id number] [place] [address] 19461- 6955 28 Feb, 2017 24 weeks gestation of Z3A.24 [facility] [address] [place] [id number] [place] [address] 66401 -6829 27 Feb, 2017 Lower abdominal pain R10.30 [facility] [address] [place] [id number] [place] [address] 03678 -7251 Feb, Gastroenteritis and colitis, viral A08.4 [place] [id number] [place] [address] 56340- 4371 14 Feb, 2017 care in second trimester Z34.92 [place] [id number] [place] [address] 45910- 2902 07 Feb, 2017 [facility] [address] [place] [id number] [place] [address] 75000 -0630 Feb, Abscess L02.91 [facility] [address] [place] [id number] [place] [address] 01041 -0492 Feb, Vaginal flavia B37.3 [place] [id number] [place] [address] 42660- 9507 January, 20 weeks gestation of Z3A.20 [place] [id number] [place] [address] 18900- 9143 January, [facility] [id number] [place] [address] 54858 -1008 January, Seasonal allergic rhinitis, unspecified allergic rhinitis trigger J30.2 [facility] [address] 52878 -2338 January, Dermatitis L30.9 and Bug bites, initial encounter W57.XXXA [address] 58838- 4317 January, Sore throat J02.9 and Seasonal allergic rhinitis, unspecified allergic rhinitis trigger J30.2 [place] [address] 48304- 2139 January, 16 weeks gestation of Z3A.[address] 54489- 2281 Dec, care in first trimester Z34.[address] 67459- 7286 Nov, care in first trimester Z34.91 and Normal in multigravida Z34.80 [facility] WALK IN [address] 92297 -5765 Oct, Nausea and vomiting during O21.[address] 49437- 9574 Oct, [address] 25290- 6884 Oct, [address] 19331- 4364 Oct, Encounter for test, result unknown Z32.[address] 12708- 6390 Sep, Irregular periods/menstrual cycles N92.6 ; Sore throat J02.9 ; Nausea R11.0 and Right ear impacted cerumen H61.21 [facility] [address] [place] [address] [place] [address] -0177 05 Jul, 2016 Vaginal discharge N89.8 ; Other specified bacterial agents as the cause of diseases classified elsewhere B96.89 and Acute vaginitis N76.0 [place] [id number] [place] [address] 13831- 0760 10 Jun, 2016 Depression, unspecified depression type F32.9 [place] [address] 83924- 8956 23 May, 2016 Vaginal candidiasis B37.3 [place] [address] 77835- 1740 20 May, 2016 Acute pharyngitis, unspecified etiology J02.9 [place] [address] 59365- 3023 19 May, 2016 Depression, unspecified depression type F32.9 [place] [address] 20343- 1063 12 May, 2016 Depression, unspecified depression type F32.9 [place] [id number] [place] [address] 56056- 4557 12 May, 2016 Dysthymic disorder F34.1 [facility] [id number] [place] [address] 37541 -7413 Apr, Acute suppurative otitis media of right ear without spontaneous rupture of tympanic membrane, recurrence not specified H66.001 [facility] [id number] [place] [address] 31859 -3627 Mar, Herpes zoster without complication B02.9 [facility] [id number] [place] [address] 91841 -4679 Dec, Allergic rhinitis J30.9 [facility] [id number] [place] [address] 01805 -3843 Dec, Lumbago M54.5 [facility] [address] 93056 -5143 Oct, Dysuria R30.0 and Urinary tract infection N39.0 [facility] [id number] [place] [address] 31231 -6771 Sep, Acute nasopharyngitis J00 and Strep pharyngitis J02.0 [facility] [address] 02343- 1153 Jul, Upper respiratory tract infection, unspecified type J06.9 [facility] [address] 38579- 1352 Jun, Irritable bowel syndrome without diarrhea K58.9 [place] [address] 77906- 6958 Jun, [place] [address] 82150- 0057 May, [place] [address] 13218- 5801 May, [place] [address] 78460- 2102 May, Otitis externa of left ear 380.10 [place] [address] 87719- 3665 May, Pain in joint, ankle and foot 719.47 [place] [address] 80767- 1191 Apr, Pain in joint, ankle and foot 719.47 [place] [address] 23744- 9615 Mar, Dysuria 788.1 and Incontinence in female 625.6 [place] [address] 65261- 5491 30 Feb, 2015 Plantar fasciitis of right foot 728.71 ; Ankle weakness 719.67 and Ankle pain, chronic 719.47 [place] [address] 18692- 0241 Feb, [facility] [address] [id number] [place] [address]- 1387 Feb, Belching 787.3 and Chest wall pain 786.52 [facility] [address] [id number] [place] [address]- 4976 Dec, [facility] [address] [id number] [place] [address]- 8350 Dec, [facility] [address] [id number] [place] [address]- 1067 Nov, [facility] [id number] [place] [address], [place] [address]- 5163 Nov, [facility] [id number] [place] [address]- 5906 Sep, [facility] [id number] [address]- 9373 Sep, [facility] [id number] [address]- 3662 Sep, [facility] [address] [id number] [address]- 0979 Sep, [facility] [id number] [place] [address]- 4857 Aug, [facility] [address] [id number] [place] [address]- 1816 Aug, [facility] [address] [id number] [place] [address]- 3081 Aug, [facility] [address] [id number] [place] 3280 Aug, [facility] [address] [facility] [id number] [place] [address]- 2089 04 Aug, 2014 [facility] [address] [facility] [id number] [place] [address]- 8297 Aug, [facility] [place] [facility] [address] [id number] [place] [address]- 3574 Aug, [facility] [place] [facility] [address] [id number] [place] 0581 Aug, [facility] [place] [facility] [address] [facility] [id number] [place] 1762 Aug, [facility] [place] [facility] [address] [id number] [place]- 2662 Aug, [facility] [place] [facility] [address] [id number] [place] [address]- 9777 Aug, [facility] [place] [facility] [address] [id number] [place] [address]- 1470 Aug, [facility] [place] [facility] [address] [id number] [place] [address]- 0268 Aug, [facility] [place] [facility] [address] [id number], [place] [address]- 3128 Aug, [facility] [place] [facility] [address] [id number], [place] [address]- 4553 Jul, [facility] [place] [facility] [address] [id number] [place] [address]- 2816 Jul, [facility] [place] [facility] [address] [id number], [place] [address]- 4766 Jul, [facility] [place] [facility] [address] [id number], [place] [address]- 8633 Jul, [facility] [place] [facility] [address] [id number], [place] [address]- 7671 Jul, [facility] [place] [facility] [address] [id number], [place] [address]- 8479 Jul, [facility] [place] [facility] [address] [id number] [address]- 7358 Jul, [facility] [place] [facility] [address] [id number] [place] [address]- 9519 Jun, 2013 [facility] [place] [facility] [address] [id number] [place] [address]- 2494 Jun, 2013 [facility] [place] [facility] [address] [id number] [place] [address]- 0273 Jun, [facility] [place] [facility] [address] [id number] [place] 3885 Jun, [facility] [place] [facility] [address] [id number] [place] [address]- 9068 Jun, [facility] [place] [facility] [address] [id number] [place] [address]- 6868 Jun, [facility] [place] [facility] [address] [id number] [place] [address]- 4074 Jun, [facility] [place] [facility] [address] [id number] [place] [address]- 7785 Jun, [facility] [place] [facility] [address] [id number] [place] [address]- 4508 Jun, [facility] [place] [facility] [address] [id number] [place] [address]- 2440 Jun, [facility] [place] [facility] [address] [id number] [place] [address]- 4552 Jun, [facility] [place] [facility] [address] [id number] [place] [address]- 7638 Jun, [facility] [place] [facility] [address] [id number] [place] [address]- 4638 Jun, [facility] [place] [facility] [address] [id number] [place] 7630 Jun, [facility] [place] [facility] [address] [id number] [place] [address]- 7199 May, [facility] [place] [facility] [address] [id number] [place] 3662 May, [facility] [place] [facility] [address] [id number] [place] [address]- 7449 May, [facility] [place] [facility] [address] [id number] [place] [address]- 7381 May, [facility] [place] [facility] [address] [id number] [place] [address]- 5491 May, [facility] [place] [facility] [address] [id number] [place] [address]- 6749 Apr, [facility] [place] [facility] [address] [id number] [place] [address]- 2790 Apr, [facility] [place] [facility] [address] [id number] [place] [address]- 2376 Apr, [facility] [place] [facility] [address] [id number] [place] [address]- 6718 Apr, [facility] [place] [facility] [address] [id number] [place] [address]- 1443 Mar, [facility] [place] [facility] [address] [id number] [place] [address]- 5950 Mar, [facility] [place] [facility] [address] [id number] [place] [address]- 3316 Mar, [facility] [place] [facility] [address] [id number] [place] [address]- 1589 Mar, [facility] [place] [facility] [address] [id number] [place] [address]- 1359 Mar, [facility] [place] [facility] [address] [id number] [place] [address]- 1117 Mar, [facility] [place] [facility] [address] [id number] [place] [address]- 2784 Mar, [facility] [place] [facility] [address] [id number] [place] [address]- 1241 Mar, [facility] [place] [facility] [address] [id number] [place] [address]- 5345 Feb, [facility] [place] [facility] [address] [id number] [place] [address]- 0131 Feb, [facility] [place] [facility] [address] [id number] [place] [address]- 6025 Feb, [facility] [place] [facility] [address] [id number] [place] [address]- 9896 Feb, [facility] [place] [facility] [address] [id number] [place] [address] Feb, [facility] [place] [facility] [address] [id number] [place] [address] Feb, [facility] [place] [facility] [address] [id number] [place] [address] Feb, [facility] [place] [facility] [address] [id number] [place] [address] Feb, [facility] [place] [facility] [address] [id number] [place] [address] January, [facility] [place] [facility] [address] [id number] [place] [address] January, [facility] [place] [facility] [address] [id number] [place] [address] January, [facility] [place] [facility] [address] [id number] [place] [address] January, [facility] [place] [facility] [address] [id number] [place] [address] January, [facility] [place] [facility] [address] [id number] [place] [address] January, [facility] [place] [facility] [address] [id number] [place] [address] Dec, [facility] [place] [facility] [address] [id number] [place] [address] Dec, [facility] [place] [facility] [address] [id number] [place] [address] Dec, [facility] [address] [id number] [place] [address] Dec, [facility] [place] [facility] [address] [id number] [place] [address] Dec, [facility] [address] [id number] [place] [address] Dec, [facility] [place] [facility] [address] [id number] [place] [address] Dec, [facility] [address] [id number] [place] [address] Dec[facility] [address] [id number] [place] [address] Oct, [facility] [facility] [address] [id number] [place] [address] Oct, [facility] [address] [id number] [place] [address] Aug, [facility] [address] [id number] [place] [address] Aug, [facility] [address] [id number] [place] [address] Jul, [facility] [facility] [address] [id number] [place] [address] Jul, [facility] [place] [facility] [address] [id number] [place] [address] Mar, [facility] [place] [facility] [address] [id number] [place] [address] Mar, [facility] [facility] [address] [id number] [place] [address] Mar, [facility] [place] [facility] [address] [id number] [place] [address] Feb, [facility] [address] [id number] [place] [address] Feb, [facility] [address] [id number] [place] [address] Feb, [facility] [address] [id number] [place] [address] January, [facility] [address] [id number] [place] [address] January, [facility] [address] [id number] [place] [address] January, [facility] [address] [id number] [place] [address] January, [facility] [address] [id number] [place] [address] January, [facility] [address] [id number] [place] [address] January, [facility] [facility] [address] [id number] [place] [address] January, [facility] [address] [id number] [place] [address] Dec, [facility] [place] [facility] [address] [id number] [place] [address] Dec, [facility] [place] [facility] [address] [id number] [place] [address] Dec, [facility] [place] [facility] [address] [id number] [place] [address] Dec, [facility] [place] [facility] [address] [id number] [place] [address] Nov, [facility] [place] [facility] [address] [id number] [place] [address] Nov, [facility] [place] [facility] [address] [id number] [place] [address] Nov, [facility] [address] [id number] [place] [address] Oct, [facility] [place] [facility] [address] [id number] [place] [address] Oct, [facility] [address] [id number] [place] [address] Oct, [facility] [address] [id number] [place] [address] Oct, [facility] [address] [id number] [place] [address] Oct, [facility] [address] [id number] [place] [address] 05 Oct, 2012 [facility] [address] [id number] [place] [address] Sep, [facility] [address] [id number] [place] [address] Sep, [facility] [address] [id number] [place] [address] Sep, [facility] [address] [facility] [id number] [place] [address] Sep, [facility] [address] [id number] [place] [address] Sep, [facility] [address] [id number] [place] [address] Aug, [facility] [place] [facility] [address] [id number] [place] [address] Aug, [facility] [place] [facility] [address] [id number] [place] [address] Aug, [facility] [address] [id number] [place] [address] Aug, [facility] [place] [facility] [address] [id number] [place] [address] Aug, [facility] [place] [facility] [address] [id number] [place] [address] Aug, [facility] [place] [facility] [address] [id number] [place] [address] Jul, [facility] [place] [facility] [address] [id number] [place] [address] Jul, [facility] [place] [facility] [address] [id number] [place] [address] Jul, [facility] [place] [facility] [address] [id number] [place] [address] Jul, [facility] [place] [facility] [address] [id number] [place] [address] Jul, [facility] [place] [facility] [address] [id number] [place] [address] Jul, [facility] [place] [facility] [address] [id number] [place] [address] 15 Jul, 2012 [facility] [place] [facility] [address] [id number] [place] [address] 15 Jul, 2012 [facility] [place] [facility] [address] [id number] [place] [address] 14 Jul, 2012 [facility] [place] [facility] [address] [id number] [address] Jul, [facility] [place] [facility] [address] [id number] [place] [address] Jul, [facility] [place] [facility] [address] [id number] [place] [address] 09 Jul, 2012 [facility] [place] [facility] [address] [id number] [place] [address] 08 Jul, 2012 [facility] [place] [facility] [address] [id number] [place] [address] 08 Jul, 2012 [facility] [place] [facility] [address] [id number] [place] [address] 08 Jul, 2012 [facility] [place] [facility] [address] [id number] [place] [address] Jul, [facility] [place] [facility] [address] [id number] [place] [address] Jul, [facility] [place] [facility] [address] [id number] [place] [address] Jul, [facility] [place] [facility] [address] [id number] [place] [address] 46[address] Jul, [facility] [place] [facility] [address] [id number] [place] [address] Jun, [facility] [place] [facility] [address] [id number] [place] [address] Jun, [facility] [place] [facility] [address] [id number] [place] [address] May, [facility] [place] [facility] [address] [id number] [place] [address] Apr, [facility] [place] [facility] [address] [id number] [place] [address] Mar, [facility] [place] [facility] [address] [id number] [place] [address] Feb, [facility] [place] [facility] [address] [id number], [place] [address] Feb, [facility] [place] [facility] [address] [id number] [place] [address] Feb, [facility] [place] [facility] [address] [id number] [place] [address] January, [facility] [place] [facility] [address] [id number] [place] [address] January, [facility] [place] [facility] [address] [id number] [place] [address] Dec, [facility] [place] [facility] [address] [id number] [place] [address] Dec, [facility] [place] [facility] [address] [id number] [place] [address] 08 Nov, 2011 [facility] [place] [facility] [address] [id number] [place] [address] Aug, [facility] [place] [facility] [address] [id number] [place] [address] Jul, [facility] [place] [facility] [address] [id number] [place] [address] Jul, [facility] [place] [facility] [address] [id number] [place] [address] Jul, [facility] [place] [facility] [address] [id number] [place] [address] Jun, [facility] [place] [facility] [address] [id number] [place] [address] Jun, [facility] [place] [facility] [address] [id number] [place] [address] 14 May, 2011 [facility] [place] [facility] [address] [id number] [place] [address] Apr, [facility] [place] [facility] [address] [id number] [place] [address] January, [facility] [place] [facility] [address] [id number] [place] [address] 13 Dec, 2010 [facility] [place] [facility] [address] [id number] [place] [address]- 115[address] 16 Nov, 2010 [facility] [place] [facility] [address] [id number] [place] [address]- [address] 10 Oct, 2010 [facility] [place] [facility] [address] [id number] [place] [address]- [address] 14 Jun, 2010 [facility] [address] [facility] [id number] [place] [address] 14 Jun, 2010 [facility] [address] [facility] [id number], [place] [address] Oct, [facility] [address] [facility] [id number], [place] [address] Aug, [facility] [address] [facility] [id number], [place] [address] Jul, [facility] [address] [facility] [id number], [place] [address] Dec, IMMUNIZATIONS No Known Immunizations SOCIAL HISTORY Never Assessed REASON FOR VISIT Bilat Ear pain started last week JStrasserRN PLAN OF CARE Activity Details Follow Up prn Reason: VITAL SIGNS Height 61 in 2018-01-21 Weight 181.4 lbs 2018-01-21 Temperature 98.4 degrees Fahrenheit 2018-01-21 Heart Rate 80 bpm 2018-01-21 Respiratory Rate 20 2018-01-21 BMI 34.27 kg/m2 2018-01-21 Blood pressure systolic 110 mmHg 2018-01-21 Blood pressure diastolic 62 mmHg 2018-01-21 MEDICATIONS Medication Instructions Dosage Frequency Start Date End Date Duration Status Zoloft 50 mg Orally Once a day 1 tablet 24h Sep, Active Diflucan 150 MG 1 tablet Nov, 1 dose Not-Taking Flonase 50 MCG/ACT Nasally Once a day 2 sprays in each nostril 24h Nov, 30 day(s) Not-Taking Vitamin Not-Taking SudoGest 60 mg Orally every 6 hrs 1 tablet as needed 6h Nov, 05 days Not-Taking Unisom Active RESULTS No Results PROCEDURES No Known [...]
--- OUTSIDE RECORDS SUMMARY | 2018-12-13 17:56 | XMS REPORT ---
Author Author TYE HERZOG [facility] Address [address] [place] [address] Care Team Providers Care Foreign Service Officer Name Role Phone TYE HERZOG Unavailable PROBLEMS Type Condition ICD9-CM Code MUP38-TN Code Onset Dates Condition Status SNOMED Code Problem Depression, unspecified depression type F32.9 Active 42254001 Problem Seasonal allergic rhinitis, unspecified allergic rhinitis trigger J30.2 Active 429659683 Problem Irregular periods/menstrual cycles N92.6 Active 80748868 Problem Seasonal allergies J30.2 Active 870339288 Problem Missed period N92.6 Active 06697631 Problem Other headache syndrome G44.89 Active 424513653 Problem Anemia, O90.81 Active 699167293 Problem DANIELLA (generalized anxiety disorder) F41.1 Active 46597382 Problem Dysthymic disorder F34.1 Active 74754097 ALLERGIES Substance Reaction Event Type Date Status Cefaclor Unknown Drug Allergy Nov, Active ENCOUNTERS Encounter Location Date Diagnosis [place] [id number] [place] [address] 55925- 9166 Apr, [facility] [id number] [place] [address] 36021 -0218 Mar, Pain of left calf M79.662 and Muscle spasm of left calf M62.831 [facility] [id number] [place] [address] 11045- 0930 Mar, care in second trimester Z34.[address] 85759- 5779 Mar, Bilateral impacted cerumen H61.23 [facility] [id number] [place] [address] 66464- 3881 Feb, [facility] [address] [place] [address] 23 Feb, 2018 [facility] [id number] [place] [address] 30481- 3070 20 Feb, 2018 Normal in multigravida Z34.80 [facility] [id number] [place] [address] 92880- 2228 13 Feb, 2018 Painful urination R30.9 and Encounter for supervision of normal in second trimester Z34.92 [facility] [id number] [place] [address] 83503 -0725 07 Feb, 2018 Seasonal allergies J30.2 [facility] [address] 76041- 3403 Feb, [facility] [id number] [place] [address] 62800- 1921 Feb, [facility] [id number] [place] [address] 44271 -3546 January, Seasonal allergic rhinitis, unspecified trigger J30.2 [facility] [id number] [place] [address] 56292 -9951 January, [facility] [id number] [place] [address] 11739 -7089 January, Viral gastroenteritis A08.4 [facility] [id number] [place] [address] 95407- 2034 January, [facility] [id number] [place] [address] 98445- 1337 January, care in first trimester Z34.91 [facility] [address] 05899- 2078 January, [facility] [id number] [place] [address] 59135 -8577 January, Left ankle pain, unspecified chronicity M25.572 [facility] [address] [place] [address]- 1630 January, [facility] [address] 09795- 3592 January, Dysthymic disorder F34.1 and DANIELLA (generalized anxiety disorder) F41.1 [facility] [id number] [place] [address] 45132 -0900 January, Impacted cerumen of both ears H61.23 [facility] [address] 63358- 6580 Dec, [facility] [address] 31192- 6623 Dec, in multigravida Z34.80 [place] [address] 01558- 5311 Dec, DANIELLA (generalized anxiety disorder) F41.1 and Dysthymic disorder F34.1 [facility] [address] 09483- 5242 Dec, [facility] [address] 27337- 1586 Nov, [facility] [id number] [place] [address] 18119- 0785 Nov, [place] [id number] [place] [address] 37191- 9343 Nov, Painful urination R30.9 ; Vaginal yeast infection B37.3 and Early stage of Z34.90 [facility] [id number] [place] [address] 40731- 6976 Nov, in multigravida Z34.80 [facility] [address] 78280- 1765 Nov, Dysfunction of right eustachian tube H69.81 and Bilateral impacted cerumen H61.23 [facility] [address] [place] [address]- 9637 Nov, [facility] [address] 35669- 5097 Nov, [facility] [address] 27280- 8150 Nov, [facility] [address] 86514 -5309 Nov, Missed period N92.6 [facility] [address] 15645- 5759 Sep, DANIELLA (generalized anxiety disorder) F41.1 and Dysthymic disorder F34.1 [facility] [address] 90525 -8172 Aug, Acute nasopharyngitis J00 [place] [address] 53797- 6369 Jul, Irregular periods/menstrual cycles N92.6 [place] [address] 08817- 6916 Jul, Bilateral impacted cerumen H61.23 [place] [address] 16131- 7516 Jul, DANIELLA (generalized anxiety disorder) F41.1 and Dysthymic disorder F34.1 [place] [address] 76524- 2770 Jun, [place] [address] 77271- 0258 Jun, Dysthymic disorder F34.1 [place] [address] 98393- 5991 Jun, Anemia, O90.81 ; Lower abdominal pain R10.30 ; Allergic contact dermatitis due to adhesives L23.1 and Other headache syndrome G44.89 [place] [address] 23267- 8285 Jun, 39 weeks gestation of Z3A.39 [place] [address] 16247- 8452 27 May, 2017 care in third trimester Z34.93 [facility] [address] 11857 -9761 24 May, 2017 Acute seasonal allergic rhinitis, unspecified trigger J30.2 [place] [address] 29725- 9293 20 May, 2017 Normal in multigravida Z34.80 [facility] [address] 12521 -6197 17 May, 2017 Urinary frequency R35.0 and Pain of round ligament N94.9 [place] [address] 88814- 7133 13 May, 2017 35 weeks gestation of Z3A.35 [place] [address] 87343- 4198 Apr, High risk sexual behavior Z72.51 and 33 weeks gestation of Z3A.33 [place] [address] 74769- 3912 Apr, care in third trimester Z34.93 [facility] [place] [address] 63694 -3858 Apr, Bilateral impacted cerumen H61.23 [place] [address] 81298- 1458 Apr, 30 weeks gestation of Z3A.30 and Encounter for immunization Z23 [place] [address] 63267- 5552 Mar, 28 weeks gestation of Z3A.28 [place] [address] 49512- 6850 Mar, [place] [address] [address]- 2851 13 Mar, 2017 [facility] [id number] [place] [address] 36464- 7787 Mar, [facility] [address] [place] [address] 33123- 4214 Mar, 26 weeks gestation of Z3A.26 [facility] [id number] [place] [address] 10917 -1136 Mar, Acute back pain M54.9 [facility] [id number] [place] [address] 33097- 8954 28 Feb, 2017 24 weeks gestation of Z3A.24 [facility] [id number] [place] [address] 93308 -8900 27 Feb, 2017 Lower abdominal pain R10.30 [facility] [address] [place] [id number] [place] [address] 99977 -7891 Feb, Gastroenteritis and colitis, viral A08.4 [place] [id number] [place] [address] 58343- 7611 14 Feb, 2017 care in second trimester Z34.92 [place] [id number] [place] [address] 93510- 5260 07 Feb, 2017 [facility] [id number] [place] [address] 33294 -9430 Feb, Abscess L02.91 [facility] N [address] [place] [address] 62939 -3950 Feb, Vaginal flavia B37.3 [place] [id number] [place] [address] 65638- 8546 January, 20 weeks gestation of Z3A.20 [facility] [id number] [place] [address] 43620- 8986 January, [facility] [address] 86291 -1752 January, Seasonal allergic rhinitis, unspecified allergic rhinitis trigger J30.2 [facility] [address] 42329 -9190 January, Dermatitis L30.9 and Bug bites, initial encounter W57.XXXA [address] 84257- 9481 January, Sore throat J02.9 and Seasonal allergic rhinitis, unspecified allergic rhinitis trigger J30.2 [place] [address] 43937- 5252 January, 16 weeks gestation of Z3A.16 [place] [address] 12422- 0930 Dec, care in first trimester Z34.[address] 94043- 7861 Nov, care in first trimester Z34.91 and Normal in multigravida Z34.80 [facility] [address] 54320 -2754 Oct, Nausea and vomiting during O21.9 [place] [id number] [place] [address] 72048- 6713 Oct, [place] [address] 59675- 3130 Oct, [address] 00834- 7248 Oct, Encounter for test, result unknown Z32.[address] 80640- 2373 Sep, Irregular periods/menstrual cycles N92.6 ; Sore throat J02.9 ; Nausea R11.0 and Right ear impacted cerumen H61.21 [facility] [id number] [place] [address] 20071 -1757 05 Jul, 2016 Vaginal discharge N89.8 ; Other specified bacterial agents as the cause of diseases classified elsewhere B96.89 and Acute vaginitis N76.0 [place] [id number] [place] [address] 42824- 9441 10 Jun, 2016 Depression, unspecified depression type F32.9 [place] [address] 22002- 5001 23 May, 2016 Vaginal candidiasis B37.3 [place] [address] 44440- 4110 20 May, 2016 Acute pharyngitis, unspecified etiology J02.9 [place] [id number] [place] [address] 21356- 3261 19 May, 2016 Depression, unspecified depression type F32.9 [place] [id number] [place] [address] 62922- 9337 12 May, 2016 Depression, unspecified depression type F32.9 [place] [id number] [place] [address] 33665- 0136 12 May, 2016 Dysthymic disorder F34.1 [facility] [facility] [place] [id number] [place] [address] 10148 -9250 10 Apr, 2016 Acute suppurative otitis media of right ear without spontaneous rupture of tympanic membrane, recurrence not specified H66.001 [facility] [id number] [place] [address] 22880 -2677 Mar, Herpes zoster without complication B02.9 [facility] [address] [place] [id number] [place] [address] 40751 -7079 18 Dec, 2015 Allergic rhinitis J30.9 [facility] [place] [id number] [place] [address] 08354 -0962 03 Dec, 2015 Lumbago M54.5 [facility] [id number] [place] [address] 78914 -5763 Oct, Dysuria R30.0 and Urinary tract infection N39.0 [facility] [id number] [place] [address] 83652 -9534 Sep, Acute nasopharyngitis J00 and Strep pharyngitis J02.0 [facility] [id number] [place] [address] 04483- 7206 Jul, Upper respiratory tract infection, unspecified type J06.9 [facility] [id number] [place] [address] 90994- 0320 Jun, Irritable bowel syndrome without diarrhea K58.9 [place] [address] 11471- 2540 Jun, [place] [address] 91206- 7138 May, [place] [address] 52377- 3566 May, [place] [id number] [place] [address] 21286- 8290 May, Otitis externa of left ear 380.10 [place] [id number] [place] [address] 42648- 1696 May, Pain in joint, ankle and foot 719.47 [place] [id number] [place] [address] 67967- 8859 Apr, Pain in joint, ankle and foot 719.47 [place] [id number] [place] [address] 81974- 2873 Mar, Dysuria 788.1 and Incontinence in female 625.6 [place] [id number] [place] [address] 64253- 4058 30 Feb, 2015 Plantar fasciitis of right foot 728.71 ; Ankle weakness 719.67 and Ankle pain, chronic 719.47 [place] [address] [place] [id number] [place] [address]- 3700 Feb, [facility] [address] [id number] [place] [address]- 2198 Feb, Belching 787.3 and Chest wall pain 786.52 [facility] [place] [facility] [address] [id number] [place] [address]- 2279 Dec, [facility] [address] [id number] [place] [address]- 1065 Dec, [facility] [address] [id number] [place] [address]- 3313 Nov, [facility] [address] [id number] [place] [address]- 7989 Nov, [facility] [address] [facility] [id number] [place] [address]- 6281 Sep, [facility] [address] [facility] [id number] [place] [address]- 2284 Sep, [facility] [address] [facility] [id number] [place] [address]- 0108 Sep, [facility] [address] [facility] [id number], [place] [address]- 6636 Sep, [facility] [address] [facility] [id number], [place] [address]- 2282 Aug, [facility] [address] [id number], [place] [address]- 2414 Aug, [facility] [address] [id number] [place] [address]- 1501 Aug, [facility] [address] [id number] [place] 4864 Aug, [facility] [address] [facility] [id number], [place] [address]- 4263 Aug, [facility] [address] [facility] [id number], [place] [address]- 8900 Aug, [facility] [place] [facility] [address] [id number] [place] [address]- 2445 Aug, [facility] [place] [facility] [address] [id number] [place] 0272 Aug, [facility] [place] [facility] [address] [id number] [place] [address]- 0295 Aug, [facility] [place] [facility] [address] [id number] [place] [address]- 5370 Aug, [facility] [place] [facility] [address] [id number] [place] [address]- 4911 Aug, [facility] [place] [facility] [address] [id number] [place] [address]- 5764 Aug, [facility] [place] [facility] [address] [id number] [place] [address]- 6328 Aug, [facility] [place] [facility] [address] [id number] [place] [address]- 4466 Aug, [facility] [place] [facility] [address] [id number] [place] [address]- 8425 Jul, [facility] [place] [facility] [address] [id number] [place] [address]- 6038 Jul, [facility] [place] [facility] [address] [id number], [place] [address]- 4845 Jul, [facility] [place] [facility] [address] [id number], [place] [address]- 2488 Jul, [facility] [place] [facility] [address] [id number], [place] [address]- 3752 Jul, [facility] [place] [facility] [address] [id number], [place] [address]- 5623 Jul, [facility] [place] [facility] [address] [id number] [place] [address]- 2292 Jul, [facility] [place] [facility] [address] [id number] [place] [address]- 9632 Jun, 2013 [facility] [place] [facility] [address] [id number] [place] [address]- 9007 Jun, [facility] [place] [facility] [address] [id number] [place] [address]- 8600 Jun, [facility] [place] [facility] [address] [id number] [place] [address]- 2270 Jun, [facility] [place] [facility] [address] [id number] [place] [address]- 3553 Jun, [facility] [place] [facility] [address] [id number] [place] [address]- 6295 Jun, [facility] [place] [facility] [address] [id number] [place] [address]- 7591 Jun, [facility] [place] [facility] [address] [id number] [place] [address]- 2623 Jun, [facility] [place] [facility] [address] [id number] [place] [address]- 6446 Jun, [facility] [place] [facility] [address] [id number] [place] [address]- 9156 Jun, [facility] [place] [facility] [address] [id number] [place] [address]- 2152 Jun, [facility] [place] [facility] [address] [id number] [place] [address]- 1339 Jun, [facility] [place] [facility] [address] [id number] [place] [address]- 3080 Jun, [facility] [place] [facility] [address] [id number] [place] [address]- 4938 Jun, [facility] [place] [facility] [address] [id number] [place] [address]- 7681 May, [facility] [place] [facility] [address] [id number] [place] [address]- 8739 May, [facility] [place] [facility] [address] [id number] [place] [address]- 1524 May, [facility] [place] [facility] [address] [id number] [place] [address]- 4642 May, [facility] [place] [facility] [address] [id number] [place] [address]- 8670 May, [facility] [place] [facility] [address] [id number] [place] [address]- 4177 Apr, [facility] [place] [facility] [address] [id number] [place] [address]- 8618 Apr, [facility] [place] [facility] [address] [id number] [place] [address]- 7291 Apr, [facility] [place] [facility] [address] [id number] [place] [address]- 3368 Apr, [facility] [place] [facility] [address] [id number] [place] [address]- 2783 Mar, [facility] [place] [facility] [address] [id number] [place] [address]- 8510 Mar, [facility] [place] [facility] [address] [id number] [place] [address]- 6941 Mar, [facility] [place] [facility] [address] [id number] [place] [address]- 0197 Mar, [facility] [place] [facility] [address] [id number] [place] [address]- 8702 Mar, [facility] [place] [facility] [address] [id number] [place] [address]- 1873 Mar, [facility] [place] [facility] [address] [id number] [place] [address]- 0469 Mar, [facility] [place] [facility] [address] [id number] [place] [address]- 1470 Mar, [facility] [place] [facility] [address] [id number] [place] [address]- 4856 Feb, [facility] [place] [facility] [address] [id number] [place] [address]- 5425 Feb, [facility] [place] [facility] [address] [id number] [place] [address]- 8984 Feb, [facility] [place] [facility] [address] [id number] [place] [address]- 9618 Feb, [facility] [place] [facility] [address] [id number] [place] [address]- 7276 Feb, [facility] [place] [facility] [address] [id number] [place] [address]- 9734 Feb, [facility] [place] [facility] [address] [id number] [place] [address]- 6082 Feb, [facility] [place] [facility] [address] [id number] [place] [address]- 9083 Feb, [facility] [place] [facility] [address] [id number] [place] [address]- 3775 January, [facility] [place] [facility] [address] [id number] [place] [address]- 8179 January, [facility] [place] [facility] [address] [id number] [place] [address]- 8833 January, [facility] [place] [facility] [address] [id number] [place] [address]- 6941 January, [facility] [place] [facility] [address] [id number] [place] [address]- 7185 January, [facility] [place] [facility] [address] [id number] [place] [address] January, [facility] [place] [facility] [address] [id number] [place] [address] Dec, [facility] [place] [facility] [address] [id number] [place] [address] Dec, [facility] [place] [facility] [address] [id number] [place] [address] Dec, [facility] [place] [facility] [address] [id number] [place] [address] Dec, [facility] [place] [facility] [address] [id number] [place] [address] Dec, [facility] [place] [facility] [address] [id number] [place] [address] Dec, [facility] [place] [facility] [address] [id number] [place] [address] Dec, [facility] [place] [facility] [address] [id number] [place] [address] Dec, [facility] [place] [facility] [address] [id number] [place] [address] Oct, [facility] [place] [facility] [address] [id number] [place] [address] Oct, [facility] [place] [facility] [address] [id number] [place] [address] Aug, [facility] [place] [facility] [address] [id number] [place] [address] Aug, [facility] [place] [facility] [address] [id number] [place] [address] Jul, [facility] [place] [facility] [address] [id number] [place] [address] Jul, [facility] [place] [facility] [address] [id number] [place] [address] Mar, [facility] [place] [facility] [address] [id number] [place] [address] Mar, [facility] [place] [facility] [address] [id number] [place] [address] Mar, [facility] [place] [facility] [address] [id number] [place] [address]- [address] Feb, [facility] [address] [id number] [place] [address] Feb, [facility] [address] [id number] [place] [address] Feb, [facility] [address] [id number] [place] [address]- [address] January, [facility] [address] [id number] [place] [address] January, [facility] [address] [id number] [place] [address]- [address] January, [facility] [address] [id number] [place] [address] January, [facility] [address] [id number] [place] [address] January, [facility] [address] [id number] [place] [address]- [address] January, [facility] [address] [id number] [place] [address] January, [facility] [address] [id number] [place] [address] Dec, [facility] [address] [id number] [place] [address] Dec, [facility] [place] [facility] [address] [id number] [place] [address] Dec, [facility] [place] [facility] [address] [id number] [place] [address] Dec, [facility] [place] [facility] [address] [id number] [place] [address] Nov, [facility] [place] [facility] [address] [id number] [place] [address] Nov, [facility] [place] [facility] [address] [id number] [place] [address] Nov, [facility] [address] [id number] [place] [address] Oct, [facility] [place] [facility] [address] [address] [id number] [place] [address] Oct, [facility] [address] [id number] [place] [address] Oct, [facility] [place] [facility] [address] [id number] [place] [address] Oct, [facility] [address] [id number] [place] [address] Oct, [facility] [address] [id number] [place] [address] Oct, [facility] [address] [id number] [place] [address] Sep, [facility] [address] [id number] [place] [address] Sep, [facility] [address] [id number] [place] [address] Sep, [facility] [address] [id number] [place] [address] Sep, [facility] [address] [id number] [place] [address] Sep, [facility] [address] [id number] [place] [address] Aug, [facility] [place] [facility] [address] [id number] [place] [address] Aug, [facility] [place] [facility] [address] [id number] [place] [address] 07 Aug, 2012 [facility] [place] [facility] [address] [id number] [place] [address] Aug, [facility] [place] [facility] [address] [id number] [place] [address] 06 Aug, 2012 [facility] [place] [facility] [address] [id number] [place] [address] Aug, [facility] [place] [facility] [address] [facility] [id number] [place] [address] Jul, [facility] [place] [facility] [address] [id number] [place] [address] 29 Jul, 2012 [facility] [place] [facility] [address] [id number] [place] [address] Jul, [facility] [place] [facility] [address] [id number] [place] [address] Jul, [facility] [place] [facility] [address] [id number] [place] [address] 39[address] Jul, [facility] [place] [facility] [address] [id number] [place] [address] Jul, [facility] [place] [facility] [address] [id number] [place] [address] 15 Jul, 2012 [facility] [place] [facility] [address] [id number] [place] [address] 15 Jul, 2012 [facility] [place] [facility] [address] [id number], [place] [address] 14 Jul, 2012 [facility] [place] [facility] [address] [id number], [place] [address] 12 Jul, 2012 [facility] [place] [facility] [address] [id number] [place] [address] 12 Jul, 2012 [facility] [place] [facility] [address] [facility] [id number], [place] [address] 09 Jul, 2012 [facility] [place] [facility] [address] [facility] [id number], [place] [address] 08 Jul, 2012 [facility] [place] [facility] [address] [id number] [place] [address] 08 Jul, 2012 [facility] [place] [facility] [address] [id number] [place] [address] Jul, [facility] [place] [facility] [address] [id number] [place] [address] Jul, [facility] [place] [facility] [address] [id number] [place] [address] Jul, [facility] [place] [facility] [address] [id number] [place] [address] Jul, [facility] [place] [facility] [address] [id number] [place] [address] Jul, [facility] [place] [facility] [address] [id number] [place] [address] Jun, [facility] [place] [facility] [address] [id number] [place] [address] Jun, [facility] [place] [facility] [address] [id number] [place] [address] May, [facility] [place] [facility] [address] [id number] [place] [address] Apr, [facility] [place] [facility] [address] [id number] [place] [address] Mar, [facility] [place] [facility] [address] [id number] [place] [address] Feb, [facility] [place] [facility] [address] [id number] [place] [address] Feb, [facility] [place] [facility] [address] [id number] [place] [address] Feb, [facility] [place] [facility] [address] [id number] [place] [address] January, [facility] [place] [facility] [address] [id number] [place] [address] January, [facility] [place] [facility] [address] [id number] [place] [address] Dec, [facility] [place] [facility] [address] [id number] [place] [address] Dec, [facility] [place] [facility] [address] [id number] [place] [address]- [address] Nov, [facility] [place] [facility] [address] [id number] [place] [address] Aug, [facility] [place] [facility] [address] [id number] [place] [address] Jul, [facility] [place] [facility] [address] [id number] [place] [address] Jul, [facility] [place] [facility] [address] [id number] [place] [address] Jul, [facility] [place] [facility] [address] [id number] [place] [address] Jun, [facility] [place] [facility] [address] [id number] [place] [address]- [address] Jun, [facility] [place] [facility] [address] [id number] [place] [address]- [address] 14 May, 2011 [facility] [place] [facility] [address] [id number] [place] [address] Apr, [facility] [place] [facility] [address] [id number], [place] [address] January, [facility] [place] [facility] [address] [id number] [place] [address]- [address] Dec, [facility] [place] [facility] [address] [id number] [place] [address]- [address] 16 Nov, 2010 [facility] [place] [facility] [address] [id number] [place] [address] 10 Oct, 2010 [facility] [place] [facility] [address] [id number], [place] [address] Jun, [facility] [address] [facility] [id number], [place] [address] Jun, [facility] [address] [facility] [id number], [place] [address] Oct, [facility] [address] [facility] [id number], [place] [address] Aug, [facility] [address] [facility] [id number], [place] [address] Jul, [facility] [address] [facility] [id number], [place] [address] 2546 Dec, IMMUNIZATIONS No Known Immunizations SOCIAL HISTORY Never Assessed REASON FOR VISIT test per pts request. artemio, last menstural period was 2017 , pt has an ob dr...dr fernando...will call on friday first thing...instructed pt to stop zoloft. pt verbalized understanding PLAN OF CARE VITAL SIGNS Height 61 in 2017-11-23 Weight 180.4 lbs 2017-11-23 Temperature 98.2 degrees Fahrenheit 2017-11-23 Heart Rate 74 bpm 2017-11-23 Respiratory Rate 20 2017-11-23 BMI 34.08 kg/m2 2017-11-23 Blood pressure systolic 106 mmHg 2017-11-23 Blood pressure diastolic 74 mmHg 2017-11-23 MEDICATIONS Medication Instructions Dosage Frequency Start Date End Date Duration Status Zoloft 50 mg Orally Once a day 1 tablet 24h Sep, 30 day(s) Active RESULTS Name Result Date Reference Range TEST, URINE (IN HOUSE) 2017-11-23 RESULTS positive Lot # [id number] Control + Exp date 2018 PROCEDURES Procedure Date Ordered Result Body Site URINE TEST November 23, 2017 INSTRUCTIONS MEDICATIONS ADMINISTERED No Known Medications [...]
--- OUTSIDE RECORDS SUMMARY | 2018-12-13 17:56 | XMS REPORT ---
Author Author ТАТЬЯНА ANDREWS [facility] Address [address] [place] [address] Care Team Providers Care Skin Care Instructor Name Role Phone DARRYL, ТАТЬЯНА Unavailable PROBLEMS Type Condition ICD9-CM Code NHU39-IB Code Onset Dates Condition Status SNOMED Code Problem Depression, unspecified depression type F32.9 Active 93138738 Problem Seasonal allergic rhinitis, unspecified allergic rhinitis trigger J30.2 Active 999706932 Problem Irregular periods/menstrual cycles N92.6 Active 49318118 Problem Seasonal allergies J30.2 Active 834898972 Problem Missed period N92.6 Active 07673925 Problem Other headache syndrome G44.89 Active 961362427 Problem Anemia, O90.81 Active 978565753 Problem DANIELLA (generalized anxiety disorder) F41.1 Active 37015786 Problem Dysthymic disorder F34.1 Active 29762749 ALLERGIES Substance Reaction Event Type Date Status Cefaclor Unknown Drug Allergy Dec, Active ENCOUNTERS Encounter Location Date Diagnosis [facility] [address] [place] [address] 80228- 5572 Apr, [facility] [id number] [place] [address] 87584 -1038 Mar, Pain of left calf M79.662 and Muscle spasm of left calf M62.831 [facility] [id number] [place] [address] 12533- 9233 Mar, care in second trimester Z34.92 [facility] [id number] [place] [address] 00359- 1980 Mar, Bilateral impacted cerumen H61.23 [facility] [address] [place] [address] 37899- 9040 Feb, [facility] [id number] [place] [address] 75308 -7995 23 Feb, 2018 [facility] [id number] [place] [address] 15363- 4916 20 Feb, 2018 Normal in multigravida Z34.80 [facility] [id number] [place] [address] 38692- 0717 13 Feb, 2018 Painful urination R30.9 and Encounter for supervision of normal in second trimester Z34.92 [facility] [id number] [place] [address] 18450 -1013 07 Feb, 2018 Seasonal allergies J30.2 [place] [address] 45493- 9523 Feb, [place] [id number] [place] [address] 86343- 2193 Feb, [facility] [id number] [place] [address] 14124 -7521 January, Seasonal allergic rhinitis, unspecified trigger J30.2 [facility] [id number] [place] [address] 95625 -8986 January, [facility] [id number] [place] [address] 61070 -1978 January, Viral gastroenteritis A08.4 [place] [id number] [place] [address] 58384- 7731 January, [facility] [id number] [place] [address] 06794- 8748 January, care in first trimester Z34.91 [place] [address] [place] [address] 27003- 3290 January, [facility] [id number] [place] [address] 02934 -3061 January, Left ankle pain, unspecified chronicity M25.572 [place] [id number] [place] [address]- 5416 January, [facility] [address] [place] [address] 48518- 1102 January, Dysthymic disorder F34.1 and DANIELLA (generalized anxiety disorder) F41.1 [facility] [id number] [place] [address] 47476 -7786 January, Impacted cerumen of both ears H61.23 [facility] [address] [place] [address] 35042- 0998 Dec, [facility] [address] 87294- 6476 Dec, in multigravida Z34.80 [place] [id number] [place] [address] 29771- 0063 Dec, DANIELLA (generalized anxiety disorder) F41.1 and Dysthymic disorder F34.1 [facility] [id number] [place] [address] 09397- 8788 Dec, [facility] [id number] [place] [address] 06617- 4373 Nov, [facility] [id number] [place] [address] 26346- 1696 Nov, [place] [address] [place] [address] 31735- 5013 Nov, Painful urination R30.9 ; Vaginal yeast infection B37.3 and Early stage of Z34.90 [facility] [address] [place] [address] 02391- 4500 Nov, in multigravida Z34.80 [facility] [address] [place] [address] 91277- 9910 Nov, Dysfunction of right eustachian tube H69.81 and Bilateral impacted cerumen H61.23 [facility] [id number] [place] [address]- 4765 Nov, [facility] [address] [place] [address] 63015- 7184 Nov, [facility] [address] [place] [address] 68086- 3217 Nov, [facility] [id number] [place] [address] 02147 -7314 Nov, Missed period N92.6 [facility] [id number] [place] [address] 45161- 0907 Sep, DANIELLA (generalized anxiety disorder) F41.1 and Dysthymic disorder F34.1 [facility] [id number] [place] [address] 86934 -8490 Aug, Acute nasopharyngitis J00 [place] [address] [place] [address] 50687- 7740 Jul, Irregular periods/menstrual cycles N92.6 [facility] [address] [place] [address] 64227- 5716 Jul, Bilateral impacted cerumen H61.23 [place] [address] [place] [address] 77185- 7296 Jul, DANIELLA (generalized anxiety disorder) F41.1 and Dysthymic disorder F34.1 [place] [address] [place] [address] 73977- 8900 Jun, [place] [address] [place] [address] 19962- 0723 Jun, Dysthymic disorder F34.1 [place] [address] [place] [address] 34232- 3791 Jun, Anemia, O90.81 ; Lower abdominal pain R10.30 ; Allergic contact dermatitis due to adhesives L23.1 and Other headache syndrome G44.89 [place] [address] 08107- 3609 04 Jun, 2017 39 weeks gestation of Z3A.39 [place] [address] 30561- 4438 27 May, 2017 care in third trimester Z34.93 [facility] [address] 01715 -1458 24 May, 2017 Acute seasonal allergic rhinitis, unspecified trigger J30.2 [place] [address] 46714- 3491 20 May, 2017 Normal in multigravida Z34.80 [facility] [place] [address] 46680 -1119 17 May, 2017 Urinary frequency R35.0 and Pain of round ligament N94.9 [place] [address] 37247- 4161 13 May, 2017 35 weeks gestation of Z3A.35 [place] [address] 62732- 5094 Apr, High risk sexual behavior Z72.51 and 33 weeks gestation of Z3A.33 [place] [address] 91688- 3053 Apr, care in third trimester Z34.93 [facility] [place] [address] 18439 -2125 Apr, Bilateral impacted cerumen H61.23 [place] [address] 04554- 0991 Apr, 30 weeks gestation of Z3A.30 and Encounter for immunization Z23 [place] [address] 33058- 3908 Mar, 28 weeks gestation of Z3A.28 [place] [address] 23065- 1736 Mar, [facility] [address] [address]- 9645 Mar, [facility] [address] [place] [address] 00154- 6250 Mar, [facility] [address] [place] [address] 58599- 5657 Mar, 26 weeks gestation of Z3A.26 [facility] [id number] [place] [address] 23464 -6668 Mar, Acute back pain M54.9 [place] [address] [place] [address] 50603- 5473 Feb, 24 weeks gestation of Z3A.24 [facility] [address] [place] [address] 14737 -3927 27 Feb, 2017 Lower abdominal pain R10.30 [facility] [address] [place] [address] 52625 -3911 Feb, Gastroenteritis and colitis, viral A08.4 [place] [address] [place] [address] 61210- 6988 14 Feb, 2017 care in second trimester Z34.92 [place] [address] [place] [address] 12658- 2053 07 Feb, 2017 [facility] [address] [place] [address] 55918 -9633 04 Feb, 2017 Abscess L02.91 [facility] [id number] [place] [address] 05524 -2459 Feb, Vaginal flavia B37.3 [place] [address] [place] [address] 12163- 3362 January, 20 weeks gestation of Z3A.20 [facility] [address] [place] [address] 25937- 1898 January, [facility] [address] [place] [address] 26832 -0690 January, Seasonal allergic rhinitis, unspecified allergic rhinitis trigger J30.2 [facility] [address] 49762 -4111 January, Dermatitis L30.9 and Bug bites, initial encounter W57.XXXA [address] 03639- 6147 January, Sore throat J02.9 and Seasonal allergic rhinitis, unspecified allergic rhinitis trigger J30.[address] 33557- 8192 January, 16 weeks gestation of Z3A.[address] 77354- 2765 Dec, care in first trimester Z34.[address] 97720- 4500 Nov, care in first trimester Z34.91 and Normal in multigravida Z34.80 [facility] [address] 58732 -1040 Oct, Nausea and vomiting during O21.9 [place] [id number] [place] [address] 04110- 4888 Oct, [address] 02372- 8568 Oct, [address] 87358- 7021 Oct, Encounter for test, result unknown Z32.[address] 92886- 7490 Sep, Irregular periods/menstrual cycles N92.6 ; Sore throat J02.9 ; Nausea R11.0 and Right ear impacted cerumen H61.21 [facility] [place] [id number] [place] [address] 69073 -3281 05 Jul, 2016 Vaginal discharge N89.8 ; Other specified bacterial agents as the cause of diseases classified elsewhere B96.89 and Acute vaginitis N76.0 [place] [id number] [place] [address] 87169- 7212 10 Jun, 2016 Depression, unspecified depression type F32.9 [place] [address] 16110- 2704 23 May, 2016 Vaginal candidiasis B37.3 [place] [address] 73670- 6754 20 May, 2016 Acute pharyngitis, unspecified etiology J02.9 [place] [id number] [place] [address] 15485- 4264 19 May, 2016 Depression, unspecified depression type F32.9 [place] [id number] [place] [address] 48585- 9340 12 May, 2016 Depression, unspecified depression type F32.9 [place] [address] [place] [address] 64584- 5561 12 May, 2016 Dysthymic disorder F34.1 [facility] [id number] [place] [address] 38064 -9762 10 Apr, 2016 Acute suppurative otitis media of right ear without spontaneous rupture of tympanic membrane, recurrence not specified H66.001 [facility] [id number] [place] [address] 62396 -4357 10 Mar, 2016 Herpes zoster without complication B02.9 [facility] [id number] [place] [address] 76254 -4932 18 Dec, 2015 Allergic rhinitis J30.9 [facility] [address] [place] [address] 04284 -3062 03 Dec, 2015 Lumbago M54.5 [facility] [id number] [place] [address] 72390 -8256 Oct, Dysuria R30.0 and Urinary tract infection N39.0 [facility] [id number] [place] [address] 31587 -0905 Sep, Acute nasopharyngitis J00 and Strep pharyngitis J02.0 [facility] [id number] [place] [address] 64976- 0338 Jul, Upper respiratory tract infection, unspecified type J06.9 [place] [address] [place] [address] 96292- 0507 Jun, Irritable bowel syndrome without diarrhea K58.9 [place] [address] 93779- 9723 Jun, [place] [address] [place] [address] 73888- 2891 May, [place] [address] [place] [address] 01345- 0967 May, [place] [address] [place] [address] 15331- 0213 May, Otitis externa of left ear 380.10 [place] [address] [place] [address] 73479- 3531 04 May, 2015 Pain in joint, ankle and foot 719.47 [place] [address] [place] [address] 17174- 7409 Apr, Pain in joint, ankle and foot 719.47 [place] [address] [place] [address] 26982- 9648 Mar, Dysuria 788.1 and Incontinence in female 625.6 [place] [address] [place] [address] 47036- 9602 30 Feb, 2015 Plantar fasciitis of right foot 728.71 ; Ankle weakness 719.67 and Ankle pain, chronic 719.47 [place] [address] [place] [address]- 3010 Feb, [facility] [address] [id number] [place] [address]- 0771 Feb, Belching 787.3 and Chest wall pain 786.52 [facility] [address] [id number] [place] [address]- 4994 Dec, [facility] [address] [id number] [place] [address]- 4720 Dec, [facility] [address] [id number] [place] [address]- 4537 Nov, [facility] [address] [id number] [place] [address]- 1849 Nov, [facility] [address] [id number] [place] [address]- 9483 Sep, [facility] [address] [id number] [place] [address]- 8583 Sep, [facility] [address] [id number] [place] [address]- 3920 Sep, [facility] [address] [facility] [id number] [place] [address]- 2803 Sep, [facility] [address] [id number] [place] [address]- 8997 Aug, [facility] [address] [id number] [place] [address]- 8393 Aug, [facility] [place] [facility] [address] [id number] [place] [address]- 9349 Aug, [facility] [address] [id number] [place] 4[place] Aug, [facility] [place] [facility] [address] [facility] [id number] [place] [address]- 2586 Aug, [facility] [address] [id number] [place] [address]- 5807 04 Aug, 2014 [facility] [place] [facility] [address] [id number] [place] [address]- 2209 Aug, [facility] [place] [facility] [address] [id number] [place] [address]- 6499 Aug, [facility] [place] [facility] [address] [id number] [place] [address]- 9035 Aug, [facility] [place] [facility] [address] [id number] [place] [address]- 5493 Aug, [facility] [place] [facility] [address] [id number] [place] [address]- 3419 Aug, [facility] [place] [facility] [address] [id number] [place] [address]- 7969 Aug, [facility] [place] [facility] [address] [id number] [place] [address]- 3812 Aug, [facility] [place] [facility] [address] [id number] [place] [address]- 4106 Aug, [facility] [place] [facility] [address] [id number] [place] [address]- 8937 Jul, [facility] [place] [facility] [address] [id number] [place] [address]- 3228 Jul, [facility] [place] [facility] [address] [id number] [place] [address]- 4750 Jul, [facility] [place] [facility] [address] [id number] [place] [address]- 1301 Jul, [facility] [place] [facility] [address] [id number] [place] [address]- 0734 Jul, [facility] [place] [facility] [address] [id number] [place] [address]- 5329 Jul, [facility] [place] [facility] [address] [id number] [place] [address]- 2671 Jul, [facility] [place] [facility] [address] [id number] [place] [address]- 5096 Jun, [facility] [place] [facility] [address] [id number] [place] [address]- 0300 Jun, [facility] [place] [facility] [address] [id number] [place] [address]- 3276 Jun, [facility] [place] [facility] [address] [id number] [place] [address]- 2973 Jun, [facility] [place] [facility] [address] [id number] [place] [address]- 5354 Jun, [facility] [place] [facility] [address] [id number] [place] [address]- 5275 Jun, [facility] [place] [facility] [address] [id number] [place] [address]- 3344 Jun, [facility] [place] [facility] [address] [id number] [place] [address]- 0542 Jun, [facility] [place] [facility] [address] [id number] [place] [address]- 8700 Jun, [facility] [place] [facility] [address] [id number] [place] [address]- 9810 Jun, [facility] [place] [facility] [address] [id number] [place] [address]- 1629 Jun, [facility] [place] [facility] [address] [id number] [place] [address]- 6614 Jun, [facility] [place] [facility] [address] [id number] [place] [address]- 8527 Jun, [facility] [place] [facility] [address] [id number] [place] 7410 Jun, [facility] [place] [facility] [address] [id number] [place] 5870 May, [facility] [place] [facility] [address] [id number] [place] [address]- 4320 May, [facility] [place] [facility] [address] [id number] [place] [address]- 8612 May, [facility] [place] [facility] [address] [id number] [place] [address]- 0816 May, [facility] [place] [facility] [address] [id number] [place] [address]- 4621 May, [facility] [place] [facility] [address] [id number] [place] [address]- 8121 Apr, [facility] [place] [facility] [address] [id number] [place] [address]- 6107 Apr, [facility] [place] [facility] [address] [id number] [place] [address]- 7467 Apr, [facility] [place] [facility] [address] [id number] [place] [address]- 3302 Apr, [facility] [place] [facility] [address] [id number] [place] [address]- 6554 Mar, [facility] [place] [facility] [address] [id number] [place] [address]- 7339 Mar, [facility] [place] [facility] [address] [id number] [place] [address]- 3477 Mar, [facility] [place] [facility] [address] [id number] [place] [address]- 7150 Mar, [facility] [place] [facility] [address] [id number] [place] [address]- 6781 Mar, [facility] [place] [facility] [address] [id number] [place] [address]- 5291 Mar, [facility] [place] [facility] [address] [id number] [place] [address]- 4965 Mar, [facility] [place] [facility] [address] [id number] [place]328 Mar, [facility] [place] [facility] [address] [id number] [place] [address]- 2025 Feb, [facility] [place] [facility] [address] [id number] [place] [address]- 9931 Feb, [facility] [place] [facility] [address] [id number] [place] [address]- 4765 Feb, [facility] [place] [facility] [address] [id number] [place] [address]- 8757 Feb, [facility] [place] [facility] [address] [id number] [place] [address]- 9439 Feb, [facility] [place] [facility] [address] [id number] [place] [address]- 2447 Feb, [facility] [place] [facility] [address] [id number] [place] [address]- 9029 Feb, [facility] [place] [facility] [address] [id number] [place] [address]- 3414 Feb, [facility] [place] [facility] [address] [id number] [place] [address]- 2910 January, [facility] [place] [facility] [address] [id number] [place] [address]- 1307 January, [facility] [place] [facility] [address] [id number] [place] [address] January, [facility] [place] [facility] [address] [id number] [place] [address] January, [facility] [place] [facility] [address] [id number] [place] [address] January, [facility] [place] [facility] [address] [id number] [place] [address] January, [facility] [place] [facility] [address] [id number] [place] [address] Dec, [facility] [place] [facility] [address] [id number] [place] [address] Dec, [facility] [place] [facility] [address] [id number] [place] [address] Dec, [facility] [place] [facility] [address] [id number] [place] [address] Dec, [facility] [place] [facility] [address] [id number] [place] [address] Dec, [facility] [place] [facility] [address] [id number] [place] [address] Dec, [facility] [place] [facility] [address] [id number] [place] [address] Dec, [facility] [place] [facility] [address] [id number] [place] [address] Dec, [facility] [address] [id number] [place] [address] Oct, [facility] [place] [facility] [address] [id number] [place] [address] Oct, [facility] [place] [facility] [address] [id number] [place] [address] Aug, [facility] [place] [facility] [address] [id number] [place] [address] Aug, [facility] [place] [facility] [address] [id number] [place] [address] Jul, [facility] [place] [facility] [address] [id number] [place] [address] Jul, [facility] [place] [facility] [address] [id number] [place] [address] Mar, [facility] [place] [facility] [address] [id number] [place] [address] Mar, [facility] [place] [facility] [address] [id number] [place] [address] Mar, [facility] [place] [facility] [address] [id number] [place] [address] Feb, [facility] [address] [id number] [place] [address] Feb, [facility] [address] [id number] [place] [address] Feb, [facility] [address] [id number] [place] [address] January, [facility] [address] [id number] [place] [address] January, [facility] [address] [id number] [place] [address] January, [facility] [address] [id number] [place] [address] January, [facility] [address] [id number] [place] [address] January, [facility] [address] [id number] [place] [address] January, [facility] [address] [id number] [place] [address] January, [facility] [address] [id number] [place] [address] Dec, [facility] [address] [id number] [place] [address] Dec, [facility] [address] [id number] [place] [address] Dec, [facility] [address] [id number] [place] [address] Dec, [facility] [place] [facility] [address] [id number] [place] [address] Nov, [facility] [facility] [address] [id number] [place] [address] Nov, [facility] [place] [facility] [address] [id number] [place] [address] Nov, [facility] [address] [id number] [place] [address] Oct, [facility] [place] [facility] [address] [id number] [place] [address] Oct, [facility] [place] [facility] [address] [id number] [place] [address] Oct, [facility] [place] [facility] [address] [id number] [place] [address] Oct, [facility] [place] [facility] [address] [id number] [place] [address] Oct, [facility] [address] [id number] [place] [address] Oct, [facility] [address] [id number] [place] [address] Sep, [facility] [address] [id number] [place] [address] Sep, [facility] [address] [id number] [place] [address] Sep, [facility] [place] [facility] [address] [id number] [place] [address] Sep, [facility] [address] [id number] [place] [address] Sep, [facility] [place] [facility] [address] [id number] [place] [address] Aug, [facility] [place] [facility] [address] [id number] [place] [address] Aug, [facility] [place] [facility] [address] [id number] [place] [address] Aug, [facility] [place] [facility] [address] [id number] [place] [address] Aug, [facility] [place] [facility] [address] [id number] [place] [address] Aug, [facility] [place] [facility] [address] [id number] [place] [address] Aug, [facility] [place] [facility] [address] [id number] [place] [address] Jul, [facility] [place] [facility] [address] [id number] [place] [address] Jul, [facility] [place] [facility] [address] [id number] [place] [address] Jul, [facility] [place] [facility] [address] [id number] [place] [address] Jul, [facility] [place] [facility] [address] [id number] [place] [address] Jul, [facility] [place] [facility] [address] [id number] [place] [address] Jul, [facility] [place] [facility] [address] [id number] [place] [address] 15 Jul, 2012 [facility] [place] [facility] [address] [id number] [place] [address] 15 Jul, 2012 [facility] [place] [facility] [address] [id number] [place] [address] 14 Jul, 2012 [facility] [place] [facility] [address] [id number] [place] [address] Jul, [facility] [place] [facility] [address] [id number] [place] [address] Jul, [facility] [place] [facility] [address] [id number] [place] [address] 09 Jul, 2012 [facility] [place] [facility] [address] [id number] [place] [address] 08 Jul, 2012 [facility] [place] [facility] [address] [id number] [place] [address] 08 Jul, 2012 [facility] [place] [facility] [address] [id number] [place] [address] Jul, [facility] [place] [facility] [address] [id number] [place] [address] Jul, [facility] [place] [facility] [address] [id number] [place] [address] 25[address] Jul, [facility] [place] [facility] [address] [id number] [place] [address] Jul, [facility] [place] [facility] [address] [id number] [place] [address] Jul, [facility] [place] [facility] [address] [id number] [place] [address] Jun, [facility] [place] [facility] [address] [id number] [place] [address] Jun, [facility] [place] [facility] [address] [id number] [place] [address] May, [facility] [place] [facility] [address] [id number] [place] [address] Apr, [facility] [place] [facility] [address] [id number] [place] [address] Mar, [facility] [place] [facility] [address] [id number] [place] [address] Feb, [facility] [place] [facility] [address] [id number] [place] [address] Feb, [facility] [place] [facility] [address] [id number] [place] [address] Feb, [facility] [place] [facility] [address] [id number] [place] [address] January, [facility] [place] [facility] [address] [id number] [place] [address] January, [facility] [place] [facility] [address] [id number] [place] [address] Dec, [facility] [place] [facility] [address] [id number] [place] [address] Dec, [facility] [place] [facility] [address] [id number] [place] [address] Nov, [facility] [place] [facility] [address] [id number] [place] [address] Aug, [facility] [place] [facility] [address] [id number] [place] [address] Jul, [facility] [place] [facility] [address] [id number] [place] [address]- [address] Jul, [facility] [place] [facility] [address] [id number] [place] [address] Jul, [facility] [place] [facility] [address] [id number] [place] [address]- [address] Jun, [facility] [place] [facility] [address] [id number] [place] [address]- [address] Jun, [facility] [place] [facility] [address] [id number] [place] [address]- [address] 14 May, 2011 [facility] [place] [facility] [address] [id number] [place] [address] Apr, [facility] [place] [facility] [address] [id number] [place] [address] January, [facility] [place] [facility] [address] [id number] [place] [address] Dec, [facility] [place] [facility] [address] [id number] [place] [address] 16 Nov, 2010 [facility] [place] [facility] [address] [id number] [place] [address]- [address] 10 Oct, 2010 [facility] [place] [facility] [address] [id number] [place] [address] 14 Jun, 2010 [facility] [address] [id number] [place] [address] 14 Jun, 2010 [facility] [address] [id number] [place] [address] Oct, [facility] [address] [id number] [place] [address] Aug, [facility] [address] [id number] [place] [address] Jul, [facility] [address] [id number] [place] [address] Dec, IMMUNIZATIONS No Known Immunizations SOCIAL HISTORY Never Assessed REASON FOR VISIT f/u PLAN OF CARE Activity Details Follow Up 4 Weeks Reason: f/u VITAL SIGNS Height 61 in 2017-12-25 Weight 184.2 lbs 2017-12-25 Heart Rate 72 bpm 2017-12-25 Respiratory Rate 20 2017-12-25 BMI 34.80 kg/m2 2017-12-25 Blood pressure systolic 124 mmHg 2017-12-25 Blood pressure diastolic 62 mmHg 2017-12-25 MEDICATIONS Medication Instructions Dosage Frequency Start Date End Date Duration Status SudoGest 60 mg Orally every 6 hrs 1 tablet as needed 6h Nov, 05 days Not-Taking Zoloft 50 mg Orally Once a [...]
--- OUTSIDE RECORDS SUMMARY | 2018-12-13 17:57 | XMS REPORT ---
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 Role Phone ZAYRA GOMEZ Unavailable PROBLEMS Type Condition ICD9-CM Code NTS28-NS Code Onset Dates Condition Status SNOMED Code Problem Depression, unspecified depression type F32.9 Active 83598045 Problem Seasonal allergic rhinitis, unspecified allergic rhinitis trigger J30.2 Active 303948040 Problem Irregular periods/menstrual cycles N92.6 Active 62053534 Problem Seasonal allergies J30.2 Active 107017689 Problem Missed period N92.6 Active 14650433 Problem Other headache syndrome G44.89 Active 514124811 Problem Anemia, O90.81 Active 864506621 Problem DANIELLA (generalized anxiety disorder) F41.1 Active 03580844 Problem Dysthymic disorder F34.1 Active 24957273 ALLERGIES No Information ENCOUNTERS Encounter Location Date Diagnosis [place] [address] [address]- [address] Apr, [facility] [address] [place] [id number] [place] [address] 42671 -2755 Mar, Pain of left calf M79.662 and Muscle spasm of left calf M62.831 [facility] [address] [place] [id number] [place] [address] 85526- 3923 Mar, care in second trimester Z34.92 [place] [address] [place] [id number] [place] [address] 15507- 9132 Mar, Bilateral impacted cerumen H61.23 [facility] [address] [place] [id number] [place] [address] 93724- 3651 Feb, [facility] [address] [place] [id number] [place] [address] 02210 -6599 Feb, [facility] [address] [id number] [place] [address] 77198- 7701 20 Feb, 2018 Normal in multigravida Z34.80 [facility] [address] [place] [id number] [place] [address] 35993- 5967 13 Feb, 2018 Painful urination R30.9 and Encounter for supervision of normal in second trimester Z34.92 [facility] [address] 02785 -1216 07 Feb, 2018 Seasonal allergies J30.2 [place] [address] 17472- 5912 Feb, [place] [address] 14340- 9027 Feb, [facility] [address] 83673 -0906 January, Seasonal allergic rhinitis, unspecified trigger J30.2 [facility] [address] [place] [id number] [place] [address] 01983 -7158 January, [facility] [address] [place] [id number] [place] [address] 43354 -6705 January, Viral gastroenteritis A08.4 [place] [address] [place] [id number] [place] [address] 57689- 0518 January, [place] [address] [place] [id number] [place] [address] 52412- 0745 January, care in first trimester Z34.91 [place] [address] [place] [id number] [place] [address] 07046- 1986 January, [facility] [address] [place] [id number] [place] [address] 87907 -4068 January, Left ankle pain, unspecified chronicity M25.572 [place] [address] 43774- 0635 January, [facility] [address] [place] [address] 75715- 2940 January, Dysthymic disorder F34.1 and DANIELLA (generalized anxiety disorder) F41.1 [facility] [address] [id number] [place] [address] 32816 -8482 January, Impacted cerumen of both ears H61.23 [facility] [address] [place] [id number] [place] [address] 93222- 3904 Dec, [place] [address] [place] [id number] [place] [address] 19035- 5540 Dec, in multigravida Z34.80 [place] [address] [place] [id number] [place] [address] 12779- 6273 Dec, DANIELLA (generalized anxiety disorder) F41.1 and Dysthymic disorder F34.1 [place] [address] [place] [id number] [place] [address] 19456- 0122 Dec, [facility] [address] [place] [id number] [place] [address] 84680- 2948 Nov, [place] [address] [place] [id number] [place] [address] 58622- 1126 Nov, [place] [address] [place] [id number] [place] [address] 61835- 7537 Nov, Painful urination R30.9 ; Vaginal yeast infection B37.3 and Early stage of Z34.90 [facility] [address] [place] [id number] [place] [address] 19621- 8970 Nov, in multigravida Z34.80 [place] [address] [place] [id number] [place] [address] 04092- 2969 Nov, Dysfunction of right eustachian tube H69.81 and Bilateral impacted cerumen H61.23 [place] [address] [place] [id number] [place] [address] 03860- 4420 Nov, [facility] [address] [place] [id number] [place] [address] 63599- 3943 Nov, [facility] [address] [id number] [place] [address] 71746- 6181 Nov, [facility] [address] [place] [id number] [place] [address] 41389 -6492 Nov, Missed period N92.6 [place] [address] [place] [id number] [place] [address] 26471- 5788 Sep, DANIELLA (generalized anxiety disorder) F41.1 and Dysthymic disorder F34.1 [facility] [address] [place] [id number] [place] [address] 17273 -2529 Aug, Acute nasopharyngitis J00 [place] [address] [place] [id number] [place] [address] 57809- 1700 Jul, Irregular periods/menstrual cycles N92.6 [place] [address] [place] [id number] [place] [address] 41806- 1497 Jul, Bilateral impacted cerumen H61.23 [place] [address] 19836- 1832 Jul, DANIELLA (generalized anxiety disorder) F41.1 and Dysthymic disorder F34.1 [place] [address] [place] [id number] [place] [address] 88202- 7330 Jun, [place] [address] 11118- 1456 Jun, Dysthymic disorder F34.1 [place] [address] 66854- 6119 Jun, Anemia, O90.81 ; Lower abdominal pain R10.30 ; Allergic contact dermatitis due to adhesives L23.1 and Other headache syndrome G44.89 [place] [address] 80208- 6970 Jun, 39 weeks gestation of Z3A.39 [place] [address] 28375- 9251 27 May, 2017 care in third trimester Z34.93 [facility] [place] [address] 31643 -6458 24 May, 2017 Acute seasonal allergic rhinitis, unspecified trigger J30.2 [place] [address] 82580- 9879 20 May, 2017 Normal in multigravida Z34.80 [facility] [address] 08539 -7214 17 May, 2017 Urinary frequency R35.0 and Pain of round ligament N94.9 [place] [address] 49335- 0409 13 May, 2017 35 weeks gestation of Z3A.[address] 79094- 9564 Apr, High risk sexual behavior Z72.51 and 33 weeks gestation of Z3A.[address] 89324- 0445 Apr, care in third trimester Z34.93 [facility] [place] [address] 30309 -5391 Apr, Bilateral impacted cerumen H61.[address] 13377- 7603 Apr, 30 weeks gestation of Z3A.30 and Encounter for immunization Z23 [address] 65243- 5960 Mar, 28 weeks gestation of Z3A.[address] 08691- 3224 Mar, [place] [address] 74745- 8917 Mar, [facility] [address] [place] [id number] [place] [address] 27107- 3648 Mar, [place] [address] [place] [id number] [place] [address] 56760- 9762 Mar, 26 weeks gestation of Z3A.26 [facility] [address] [place] [id number] [place] [address] 44296 -7387 Mar, Acute back pain M54.9 [place] [address] [place] [id number] [place] [address] 22858- 9407 Feb, 24 weeks gestation of Z3A.24 [facility] [address] [place] [id number] [place] [address] 07095 -7572 Feb, Lower abdominal pain R10.30 [facility] [place] [id number] [place] [address] 21594 -0166 Feb, Gastroenteritis and colitis, viral A08.4 [place] [address] [place] [id number] [place] [address] 20114- 3027 14 Feb, 2017 care in second trimester Z34.92 [place] [address] [place] [id number] [place] [address] 30920- 6072 07 Feb, 2017 [facility] [place] [id number] [place] [address] 38706 -9180 Feb, Abscess L02.91 [facility] [address] [place] [id number] [place] [address] 49598 -3282 Feb, Vaginal flavia B37.3 [place] [address] [place] [id number] [place] [address] 66176- 5832 January, 20 weeks gestation of Z3A.20 [place] [address] [place] [id number] [place] [address] 40652- 8311 January, [facility] [address] [place] [id number] [place] [address] 23039 -2173 January, Seasonal allergic rhinitis, unspecified allergic rhinitis trigger J30.2 [facility] [address] [place] [id number] [place] [address] 44903 -1100 January, Dermatitis L30.9 and Bug bites, initial encounter W57.XXXA [address] 11397- 0111 January, Sore throat J02.9 and Seasonal allergic rhinitis, unspecified allergic rhinitis trigger J30.2 [place] [address] 11402- 4297 January, 16 weeks gestation of Z3A.[address] 43315- 8889 Dec, care in first trimester Z34.[address] 36780- 1085 Nov, care in first trimester Z34.91 and Normal in multigravida Z34.80 [facility] [address] 25750 -1634 Oct, Nausea and vomiting during O21.9 [place] [address] 01103- 3433 Oct, [address] 43212- 4894 Oct, [place] [address] 77550- 3329 Oct, Encounter for test, result unknown Z32.[address] 32188- 1474 Sep, Irregular periods/menstrual cycles N92.6 ; Sore throat J02.9 ; Nausea R11.0 and Right ear impacted cerumen H61.21 [facility] [address] [place] [address] 09846 -4963 Jul, Vaginal discharge N89.8 ; Other specified bacterial agents as the cause of diseases classified elsewhere B96.89 and Acute vaginitis N76.0 [place] [address] [place] [id number] [place] [address] 57806- 2871 10 Jun, 2016 Depression, unspecified depression type F32.9 [place] [address] 78010- 4557 23 May, 2016 Vaginal candidiasis B37.3 [place] [address] 75190- 7183 20 May, 2016 Acute pharyngitis, unspecified etiology J02.9 [place] [address] 65023- 6760 19 May, 2016 Depression, unspecified depression type F32.9 [place] [address] 30504- 6582 12 May, 2016 Depression, unspecified depression type F32.9 [place] [address] [place] [id number] [place] [address] 05195- 1349 12 May, 2016 Dysthymic disorder F34.1 [facility] [address] [place] [id number] [place] [address] 41190 -0242 10 Apr, 2016 Acute suppurative otitis media of right ear without spontaneous rupture of tympanic membrane, recurrence not specified H66.001 [facility] [address] [place] [id number] [place] [address] 55728 -1949 Mar, Herpes zoster without complication B02.9 [facility] [address] [place] [id number] [place] [address] 90685 -8475 Dec, Allergic rhinitis J30.9 [facility] [address] [place] [id number] [place] [address] 10448 -9593 03 Dec, 2015 Lumbago M54.5 [facility] [address] [place] [id number] [place] [address] 13663 -4337 18 Oct, 2015 Dysuria R30.0 and Urinary tract infection N39.0 [facility] [address] [place] [address] 19914 -6923 Sep, Acute nasopharyngitis J00 and Strep pharyngitis J02.0 [facility] [address] [place] [id number] [place] [address] 16358- 9881 Jul, Upper respiratory tract infection, unspecified type J06.9 [place] [address] [place] [id number] [place] [address] 87198- 6963 Jun, Irritable bowel syndrome without diarrhea K58.9 [place] [address] 32190- 6605 Jun, [place] [address] 77771- 4433 May, [place] [address] 05864- 5486 May, [place] [address] 23950- 0557 May, Otitis externa of left ear 380.10 [place] [address] [place] [id number] [place] [address] 41638- 2568 May, Pain in joint, ankle and foot 719.47 [place] [address] [place] [id number] [place] [address] 84444- 3316 Apr, Pain in joint, ankle and foot 719.47 [place] [address] [place] [id number] [place] [address] 81202- 9351 Mar, Dysuria 788.1 and Incontinence in female 625.[address] 50292- 0780 Feb, Plantar fasciitis of right foot 728.71 ; Ankle weakness 719.67 and Ankle pain, chronic 719.47 [place] [address] 66713- 8127 Feb, [facility] [address] [id number] [place] [address]- 3452 Feb, Belching 787.3 and Chest wall pain 786.52 [facility] [address] [id number] [place]- 3416 Dec, [facility] [address] [id number] [place] [address]- 8169 Dec, [facility] [address] [id number] [place] [address]- 8426 Nov, [facility] [address] [id number] [place] [address], [place] [address]- 8829 Nov, [facility] [address] [id number] [place] [address]- 5941 Sep, [facility] [address] [facility] [id number] [place] [address]- 3105 Sep, [facility] [address] [facility] [id number] [place] [address]- 5690 Sep, [facility] [address] [id number] [place] [address]- 2919 Sep, [facility] [address] [facility] [id number] [place] [address]- 9603 Aug, [facility] [address] [id number] [place] [address]- 8535 Aug, [facility] [address] [id number] [place] [address]- 8518 Aug, [facility] [address] [id number] [place]- 8997 Aug, [facility] [address] [facility] [id number] [place] [address]- 5470 Aug, [facility] [address] [id number] [place] [address]- 0241 Aug, [facility] [place] [facility] [address] [id number] [place] 9384 Aug, [facility] [place] [facility] [address] [id number] [place]- 2547 Aug, [facility] [place] [facility] [address] [id number] [place] [address]- 0145 Aug, [facility] [place] [facility] [address] [id number] [place] [address]- 9403 Aug, [facility] [place] [facility] [address] [id number] [place]- 1956 Aug, [facility] [place] [facility] [address] [id number] [place] [address]- 7552 Aug, [facility] [place] [facility] [address] [id number] [place] [address]- 8629 Aug, [facility] [place] [facility] [address] [id number] [place] [address]- 1641 Aug, [facility] [place] [facility] [address] [id number] [place] [address]- 9360 Jul, [facility] [place] [facility] [address] [id number] [place] [address]- 2944 Jul, [facility] [place] [facility] [address] [id number] [place] [address]- 8454 Jul, [facility] [place] [facility] [address] [id number] [place] [address]- 2839 Jul, [facility] [place] [facility] [address] [id number] [place] [address]- 9243 Jul, [facility] [place] [facility] [address] [id number] [place] [address]- 0088 Jul, [facility] [place] [facility] [address] [id number] [place]- 4129 Jul, [facility] [place] [facility] [address] [id number] [place] [address]- 7749 Jun, [facility] [place] [facility] [address] [id number] [place] [address]- 2895 Jun, [facility] [place] [facility] [address] [id number] [place] 3527 Jun, [facility] [place] [facility] [address] [id number] [place] [address]- 3815 Jun, [facility] [place] [facility] [address] [id number] [place] [address]- 8273 Jun, [facility] [place] [facility] [address] [id number] [place] [address]- 7710 Jun, [facility] [place] [facility] [address] [id number] [place] [address]- 1561 Jun, [facility] [place] [facility] [address] [id number] [place] [address]- 1824 Jun, [facility] [place] [facility] [address] [id number] [place] [address]- 1101 Jun, [facility] [place] [facility] [address] [id number] [place] [address]- 6662 Jun, [facility] [place] [facility] [address] [id number] [place] [address]- 5431 Jun, [facility] [place] [facility] [address] [id number], [place] [address]- 6133 Jun, [facility] [place] [facility] [address] [id number], [place] [address]- 9550 Jun, [facility] [place] [facility] [address] [id number] [place] 0242 Jun, [facility] [place] [facility] [address] [id number] 6084 May, [facility] [place] [facility] [address] [id number] [place] [address]- 6802 24 May, 2014 [facility] [place] [facility] [address] [id number] [place] [address]- 3921 May, [facility] [place] [facility] [address] [id number] [place] [address]- 0826 May, [facility] [place] [facility] [address] [id number] [place] [address]- 2956 May, [facility] [place] [facility] [address] [id number] [place] [address]- 6863 Apr, [facility] [place] [facility] [address] [id number] [place] [address]- 4343 Apr, [facility] [place] [facility] [address] [id number] [place] [address]- 8369 Apr, [facility] [place] [facility] [address] [id number] [place] [address]- 1984 Apr, [facility] [place] [facility] [address] [id number] [place] [address]- 2289 Mar, [facility] [place] [facility] [address] [id number] [place] [address]- 8485 Mar, [facility] [place] [facility] [address] [id number] [place] [address]- 7169 Mar, [facility] [place] [facility] [address] [id number] [place] [address]- 3856 Mar, [facility] [place] [facility] [address] [id number] [place] [address]- 8355 Mar, [facility] [place] [facility] [address] [id number] [place] [address]- 4587 Mar, [facility] [place] [facility] [address] [id number] [place] [address]- 9530 Mar, [facility] [place] [facility] [address] [id number] [place] [address]- 6576 Mar, [facility] [place] [facility] [address] [id number] [place]- 5965 Feb, [facility] [place] [facility] [address] [id number] [place] [address]- 8500 Feb, [facility] [place] [facility] [address] [id number] [place] [address]- 6058 Feb, [facility] [place] [facility] [address] [id number] [place] [address]- 8319 Feb, [facility] [place] [facility] [address] [id number] [place] [address]- 3314 Feb, [facility] [place] [facility] [address] [id number] [place] [address]- 2548 Feb, [facility] [place] [facility] [address] [id number] [place] [address]- 5501 Feb, [facility] [place] [facility] [address] [id number] [place] [address]- 1207 Feb, [facility] [place] [facility] [address] [id number] [place] [address]- 9785 January, [facility] [place] [facility] [address] [id number] [place] [address]- 5972 January, [facility] [place] [facility] [address] [id number] [place] [address]- 0415 January, [facility] [place] [facility] [address] [id number] [place] [address]- 8757 January, [facility] [place] [facility] [address] [id number] [place] [address] January, [facility] [place] [facility] [address] [id number] [place] [address] January, [facility] [place] [facility] [address] [id number] [place] [address] Dec, [facility] [place] [facility] [address] [id number] [place] [address] Dec, [facility] [place] [facility] [address] [id number] [place] [address] Dec, [facility] [address] [id number] [place] [address] Dec, [facility] [place] [facility] [address] [id number] [place] [address] Dec, [facility] [place] [facility] [address] [id number] [place] [address] Dec, [facility] [place] [facility] [address] [id number] [place] [address] Dec, [facility] [place] [facility] [address] [id number] [place] [address] Dec, [facility] [place] [facility] [address] [id number] [place] [address] Oct, [facility] [address] [id number] [place] [address] Oct, [facility] [place] [facility] [address] [id number] [place] [address] Aug, [facility] [place] [facility] [address] [id number] [place] [address] Aug, [facility] [place] [facility] [address] [id number] [place] [address] Jul, [facility] [place] [facility] [address] [id number] [place] [address] Jul, [facility] [place] [facility] [address] [id number] [place] [address] Mar, [facility] [place] [facility] [address] [id number] [place] [address] Mar, [facility] [place] [facility] [address] [id number] [place] [address] Mar, [facility] [place] [facility] [address] [id number] [place] [address] Feb, [facility] [place] [facility] [address] [id number] [place] [address] Feb, [facility] [address] [id number] [place] [address] Feb, [facility] [address] [id number] [place] [address] January, [facility] [address] [id number] [place] [address] January, [facility] [address] [id number] [place] [address] January, [facility] [address] [id number] [place] [address] January, [facility] [address] [id number] [place] [address] January, [facility] [address] [id number] [place] [address] January, [facility] [address] [id number] [place] [address] January, [facility] [address] [id number] [place] [address] Dec, [facility] [address] [id number] [place] [address] Dec, [facility] [address] [id number] [place] [address] Dec, [facility] [address] [id number] [place] [address] Dec, [facility] [place] [facility] [address] [id number] [place] [address] Nov, [facility] [place] [facility] [address] [id number] [place] [address] Nov, [facility] [address] [id number] [place] [address] Nov, [facility] [address] [id number] [place] [address] Oct, [facility] [address] [id number] [place] [address] Oct, [facility] [address] [id number] [place] [address] Oct, [facility] [address] [id number] [place] [address] Oct, [facility] [address] [id number] [place] [address] Oct, [facility] [address] [id number] [place] [address] Oct, [facility] [address] [facility] [id number] [place] [address] Sep, [facility] [address] [id number] [place] [address] Sep, [facility] [address] [facility] [id number] [place] [address] Sep, [facility] [address] [facility] [id number] [place] [address] Sep, [facility] [address] [facility] [id number] [place] [address] Sep, [facility] [address] [id number] [place] [address] Aug, [facility] [address] [id number] [place] [address] Aug, [facility] [address] [facility] [id number] [place] [address] Aug, [facility] [address] [facility] [id number] [place] [address] Aug, [facility] [place] [facility] [address] [id number] [place] [address] 06 Aug, 2012 [facility] [place] [facility] [address] [id number] [place] [address] Aug, [facility] [place] [facility] [address] [id number] [place] [address] Jul, [facility] [place] [facility] [address] [id number] [place] [address] Jul, [facility] [place] [facility] [address] [id number] [place] [address] Jul, [facility] [place] [facility] [address] [id number] [place] [address] Jul, [facility] [place] [facility] [address] [id number] [place] [address] Jul, [facility] [place] [facility] [address] [id number] [place] [address] Jul, [facility] [place] [facility] [address] [id number] [place] [address] 15 Jul, 2012 [facility] [place] [facility] [address] [id number] [place] [address] 15 Jul, 2012 [facility] [place] [facility] [address] [id number] [place] [address]- [address] 14 Jul, 2012 [facility] [place] [facility] [address] [id number] [place] [address]- [address] Jul, [facility] [place] [facility] [address] [id number] [place] [address]- [address] 12 Jul, 2012 [facility] [place] [facility] [address] [id number] [place] [address] 09 Jul, 2012 [facility] [place] [facility] [address] [id number] [place] [address]- [address] 08 Jul, 2012 [facility] [place] [facility] [address] [id number] [place] [address]- [address] Jul, [facility] [place] [facility] [address] [id number] [place] [address] Jul, [facility] [place] [facility] [address] [id number] [place] [address] Jul, [facility] [place] [facility] [address] [facility] [id number] [place] [address]- [address] Jul, [facility] [place] [facility] [address] [id number] [place] [address] Jul, [facility] [place] [facility] [address] [id number] [place] [address] Jul, [facility] [place] [facility] [address] [id number] [place] [address] Jun, [facility] [place] [facility] [address] [id number] [place] [address] Jun, [facility] [place] [facility] [address] [id number], [place] [address] May, [facility] [place] [facility] [address] [id number] [place] [address] Apr, [facility] [place] [facility] [address] [id number], [place] [address] Mar, [facility] [place] [facility] [address] [id number], [place] [address] Feb, [facility] [place] [facility] [address] [id number], [place] [address] Feb, [facility] [place] [facility] [address] [id number] [place] [address]- [address] Feb, [facility] [place] [facility] [address] [facility] [id number], [place] [address] January, [facility] [place] [facility] [address] [facility] [id number] [place] [address]- [address] January, [facility] [place] [facility] [address] [id number] [place] [address]- [address]48 26 Dec, 2011 [facility] [address] [id number] [place] [address]- [address] 25 Dec, 2011 [facility] [place] [facility] [address] [id number] [place] 08 Nov, 2011 [facility] [place] [facility] [address] [id number] [place] [address] 12 Aug, 2011 [facility] [place] [facility] [address] [id number] [place] [address]- [address] 16 Jul, 2011 [facility] [place] [facility] [address] [id number] [place] [address] 16 Jul, 2011 [facility] [place] [facility] [address] [id number] [place] [address]- 48[address] 16 Jul, 2011 [facility] [place] [facility] [address] [id number] [place] [address]- 3960 12 Jun, 2011 [facility] [place] [facility] [address] [id number] [place] [address]- [address] 12 Jun, 2011 [facility] [place] [facility] [address] [id number] [place] [address]- [address]85 14 May, 2011 [facility] [place] [facility] [address] [id number] [place] [address]- [address] 10 Apr, 2011 [facility] [place] [facility] [address] [id number] [place] [address]- [address] January, [facility] [place] [facility] [address] [id number] [place] [address]- [address] 13 Dec, 2010 [facility] [place] [facility] [address] [id number] [place] [address]- [address] 16 Nov, 2010 [facility] [place] [facility] [address] [id number] [place] [address]- 8219 10 Oct, 2010 [facility] [place] [facility] [address] [id number] [place] [address]- [address] 14 Jun, 2010 [facility] [address] [id number], [place] [address] Jun, [facility] [address] [id number], [place] [address] Oct, [facility] [address] [id number], [place] [address] Aug, [facility] [id number], [place] [address] Jul, [facility] [address] [facility] [id number], [place] [address] Dec, IMMUNIZATIONS No Known Immunizations SOCIAL HISTORY Never Assessed REASON FOR VISIT OB phone call-brian PLAN OF CARE VITAL SIGNS MEDICATIONS Unknown [...]
--- OUTSIDE RECORDS SUMMARY | 2018-12-13 17:57 | XMS REPORT ---
Author Author ZAYRA GOMEZ Organization [facility] Address [address] [place] [address] Care Team Providers Care Police Guard Name Role Phone ZAYRA GOMEZ Unavailable PROBLEMS Type Condition ICD9-CM Code CSL77-MC Code Onset Dates Condition Status SNOMED Code Problem Depression, unspecified depression type F32.9 Active 01901530 Problem Seasonal allergic rhinitis, unspecified allergic rhinitis trigger J30.2 Active 720224118 Problem Irregular periods/menstrual cycles N92.6 Active 86834762 Problem Seasonal allergies J30.2 Active 152257883 Problem Missed period N92.6 Active 60238149 Problem Other headache syndrome G44.89 Active 697781568 Problem Anemia, O90.81 Active 461192211 Problem DANIELLA (generalized anxiety disorder) F41.1 Active 61585530 Problem Dysthymic disorder F34.1 Active 42514353 ALLERGIES No Information ENCOUNTERS Encounter Location Date Diagnosis [place] [id number] 34335- 7963 Apr, [facility] [address] [place] [id number] [place] [address] 08420 -1939 Mar, Pain of left calf M79.662 and Muscle spasm of left calf M62.831 [facility] [address] [place] [id number] [place] [address] 29964- 3302 Mar, care in second trimester Z34.92 [place] [address] [place] [id number] [place] [address] 40041- 7924 Mar, Bilateral impacted cerumen H61.23 [facility] [address] [place] [id number] [place] [address] 12949- 8604 Feb, [facility] [address] [place] [id number] [place] [address] 12258 -2045 Feb, [facility] [address] [place] [id number] [place] [address] 05657- 8891 20 Feb, 2018 Normal in multigravida Z34.80 [facility] [address] [place] [id number] [place] [address] 05209- 3976 13 Feb, 2018 Painful urination R30.9 and Encounter for supervision of normal in second trimester Z34.92 [facility] [address] 08645 -1256 07 Feb, 2018 Seasonal allergies J30.2 [place] [address] 12966- 7154 Feb, [place] [address] 38176- 7990 Feb, [facility] [address] 37942 -2242 January, Seasonal allergic rhinitis, unspecified trigger J30.2 [facility] [address] [place] [id number] [place] [address] 63153 -5668 January, [facility] [address] [place] [id number] [place] [address] 00845 -7397 January, Viral gastroenteritis A08.4 [place] [address] [place] [id number] [place] [address] 83426- 1027 January, [place] [address] [place] [id number] [place] [address] 62483- 2490 January, care in first trimester Z34.91 [place] [address] [place] [id number] [place] [address] 83491- 0843 January, [facility] [address] [place] [id number] [place] [address] 81568 -6296 January, Left ankle pain, unspecified chronicity M25.572 [place] [address] 64945- 0783 January, [facility] [id number] [place] [address] 91383- 0075 January, Dysthymic disorder F34.1 and DANIELLA (generalized anxiety disorder) F41.1 [facility] [address] [place] [id number] [place] [address] 30493 -3283 January, Impacted cerumen of both ears H61.23 [facility] [address] [place] [id number] [place] [address] 18894- 0243 Dec, [place] [address] [place] [id number] [place] [address] 39325- 8574 Dec, in multigravida Z34.80 [place] [address] [place] [id number] [place] [address] 27554- 2989 Dec, DANIELLA (generalized anxiety disorder) F41.1 and Dysthymic disorder F34.1 [place] [address] [place] [id number] [place] [address] 12426- 3378 Dec, [facility] [address] [place] [id number] [place] [address] 06469- 9990 Nov, [place] [address] [place] [id number] [place] [address] 91816- 1571 Nov, [place] [address] [place] [id number] [place] [address] 81231- 0483 Nov, Painful urination R30.9 ; Vaginal yeast infection B37.3 and Early stage of Z34.90 [facility] [address] [place] [id number] [place] [address] 31591- 1617 Nov, in multigravida Z34.80 [place] [address] [place] [id number] [place] [address] 98263- 1397 Nov, Dysfunction of right eustachian tube H69.81 and Bilateral impacted cerumen H61.23 [place] [address] [place] [id number] [place] [address] 34900- 8895 Nov, [facility] [address] [place] [id number] [place] [address] 72070- 0082 Nov, [facility] [address] [place] [id number] [place] [address] 90171- 9850 Nov, [facility] [address] [place] [id number] [place] [address] 14995 -3724 Nov, Missed period N92.6 [place] [address] [place] [id number] [place] [address] 57853- 3978 Sep, DANIELLA (generalized anxiety disorder) F41.1 and Dysthymic disorder F34.1 [facility] [address] [place] [id number] [place] [address] 32297 -8678 Aug, Acute nasopharyngitis J00 [place] [address] [place] [id number] [place] [address] 49451- 6195 Jul, Irregular periods/menstrual cycles N92.6 [place] [address] [place] [id number] [place] [address] 81463- 5414 Jul, Bilateral impacted cerumen H61.23 [place] [address] 91492- 4557 Jul, DANIELLA (generalized anxiety disorder) F41.1 and Dysthymic disorder F34.1 [place] [address] [place] [id number] [place] [address] 38647- 7304 Jun, [place] [address] 81551- 0471 Jun, Dysthymic disorder F34.1 [place] [address] 75149- 6793 Jun, Anemia, O90.81 ; Lower abdominal pain R10.30 ; Allergic contact dermatitis due to adhesives L23.1 and Other headache syndrome G44.89 [place] [address] 11202- 0202 Jun, 39 weeks gestation of Z3A.39 [place] [address] 23055- 3463 27 May, 2017 care in third trimester Z34.93 [facility] [place] [address] 07023 -4821 24 May, 2017 Acute seasonal allergic rhinitis, unspecified trigger J30.2 [place] [address] 28576- 6342 20 May, 2017 Normal in multigravida Z34.80 [facility] [address] 07064 -2262 17 May, 2017 Urinary frequency R35.0 and Pain of round ligament N94.9 [place] [address] 32316- 0846 13 May, 2017 35 weeks gestation of Z3A.[address] 97316- 3297 Apr, High risk sexual behavior Z72.51 and 33 weeks gestation of Z3A.[address] 64808- 5916 Apr, care in third trimester Z34.93 [facility] [place] [address] 87248 -0783 Apr, Bilateral impacted cerumen H61.[address] 24658- 5430 Apr, 30 weeks gestation of Z3A.30 and Encounter for immunization Z23 [address] 20906- 0259 Mar, 28 weeks gestation of Z3A.[address] 35884- 5764 Mar, [place] [address] 26413- 8540 Mar, [facility] [address] [place] [id number] [place] [address] 77958- 9252 Mar, [place] [address] [place] [id number] [place] [address] 00743- 4564 Mar, 26 weeks gestation of Z3A.26 [facility] [address] [place] [id number] [place] [address] 52823 -6652 Mar, Acute back pain M54.9 [place] [address] [place] [id number] [place] [address] 00782- 0723 Feb, 24 weeks gestation of Z3A.24 [facility] [address] [place] [id number] [place] [address] 57459 -3680 Feb, Lower abdominal pain R10.30 [facility] [place] [id number] [place] [address] 70994 -7459 Feb, Gastroenteritis and colitis, viral A08.4 [place] [address] [place] [id number] [place] [address] 03934- 9468 14 Feb, 2017 care in second trimester Z34.92 [place] [address] [place] [id number] [place] [address] 72636- 0135 07 Feb, 2017 [facility] [place] [id number] [place] [address] 61799 -2632 Feb, Abscess L02.91 [facility] [address] [place] [id number] [place] [address] 81715 -0667 Feb, Vaginal flavia B37.3 [place] [address] [place] [id number] [place] [address] 54287- 2749 January, 20 weeks gestation of Z3A.20 [place] [address] [place] [id number] [place] [address] 46457- 0118 January, [facility] [address] [place] [id number] [place] [address] 36784 -4651 January, Seasonal allergic rhinitis, unspecified allergic rhinitis trigger J30.2 [facility] [address] [place] [id number] [place] [address] 28116 -2392 January, Dermatitis L30.9 and Bug bites, initial encounter W57.XXXA [address] 96690- 8421 January, Sore throat J02.9 and Seasonal allergic rhinitis, unspecified allergic rhinitis trigger J30.2 [place] [address] 64277- 0703 January, 16 weeks gestation of Z3A.[address] 41513- 4074 Dec, care in first trimester Z34.[address] 29614- 4490 Nov, care in first trimester Z34.91 and Normal in multigravida Z34.80 [facility] [address] 15808 -7931 Oct, Nausea and vomiting during O21.9 [place] [address] 04634- 3685 Oct, [address] 35703- 2604 Oct, [place] [address] 55745- 0850 Oct, Encounter for test, result unknown Z32.[address] 41427- 0874 Sep, Irregular periods/menstrual cycles N92.6 ; Sore throat J02.9 ; Nausea R11.0 and Right ear impacted cerumen H61.21 [facility] [address] [place] [address] 68093 -2077 Jul, Vaginal discharge N89.8 ; Other specified bacterial agents as the cause of diseases classified elsewhere B96.89 and Acute vaginitis N76.0 [place] [address] [place] [id number] [place] [address] 69512- 6183 10 Jun, 2016 Depression, unspecified depression type F32.9 [place] [address] 38227- 3997 23 May, 2016 Vaginal candidiasis B37.3 [place] [address] 07243- 0322 20 May, 2016 Acute pharyngitis, unspecified etiology J02.9 [place] [address] 12859- 6398 19 May, 2016 Depression, unspecified depression type F32.9 [place] [address] 18865- 6187 12 May, 2016 Depression, unspecified depression type F32.9 [place] [address] [place] [id number] [place] [address] 32332- 0460 12 May, 2016 Dysthymic disorder F34.1 [facility] [address] [place] [id number] [place] [address] 96274 -2083 10 Apr, 2016 Acute suppurative otitis media of right ear without spontaneous rupture of tympanic membrane, recurrence not specified H66.001 [facility] [address] [place] [id number] [place] [address] 56887 -8651 Mar, Herpes zoster without complication B02.9 [facility] [address] [place] [id number] [place] [address] 78935 -1854 Dec, Allergic rhinitis J30.9 [facility] [address] [place] [id number] [place] [address] 32108 -7667 03 Dec, 2015 Lumbago M54.5 [facility] [address] [place] [id number] [place] [address] 76077 -0409 18 Oct, 2015 Dysuria R30.0 and Urinary tract infection N39.0 [facility] [address] [place] [address] 61993 -5578 Sep, Acute nasopharyngitis J00 and Strep pharyngitis J02.0 [facility] [address] [place] [id number] [place] [address] 22293- 5679 Jul, Upper respiratory tract infection, unspecified type J06.9 [place] [address] [place] [id number] [place] [address] 13614- 6019 Jun, Irritable bowel syndrome without diarrhea K58.9 [place] [address] 82630- 5619 Jun, [place] [address] 41559- 4608 May, [place] [address] 50061- 4005 May, [place] [address] 64602- 5983 May, Otitis externa of left ear 380.10 [place] [address] [place] [id number] [place] [address] 51841- 5373 May, Pain in joint, ankle and foot 719.47 [place] [address] [place] [id number] [place] [address] 65772- 6338 Apr, Pain in joint, ankle and foot 719.47 [place] [address] [place] [id number] [place] [address] 63056- 6767 Mar, Dysuria 788.1 and Incontinence in female 625.[address] 59150- 4572 Feb, Plantar fasciitis of right foot 728.71 ; Ankle weakness 719.67 and Ankle pain, chronic 719.47 [place] [address] 42389- 8158 Feb, [facility] [address] [id number] [place] [address]- 8309 Feb, Belching 787.3 and Chest wall pain 786.52 [facility] [address] [id number] [place] [address]61 Dec, [facility] [address] [id number] [place] [address]- 6738 Dec, [facility] [address] [id number] [place] [address]- 1777 Nov, [facility] [id number] [place] [address], [place] [address]- 5364 Nov, [facility] [address] [id number] [place] [address]- 0964 Sep, [facility] [address] [facility] [id number] [place] [address]- 0412 Sep, [facility] [address] [facility] [id number] [place] [address]- 3472 Sep, [facility] [address] [id number] [place] [address]- 0239 Sep, [facility] [address] [facility] [id number] [place] [address]- 6494 Aug, [facility] [address] [id number] [place] [address]- 5551 Aug, [facility] [address] [id number] [place] [address]- 2848 Aug, [facility] [address] [id number] [place] 4822 Aug, [facility] [address] [facility] [id number] [place] [address]- 6877 Aug, [facility] [address] [id number] [place] [address]- 1515 Aug, [facility] [place] [facility] [address] [id number] [place] 2436 Aug, [facility] [place] [facility] [address] [id number] [place] 5380 Aug, [facility] [place] [facility] [address] [id number] [place] [address]- 7977 Aug, [facility] [place] [facility] [address] [id number] [place] [address]- 1173 Aug, [facility] [place] [facility] [address] [id number] [place] 1558 Aug, [facility] [place] [facility] [address] [id number] [place] [address]- 1409 Aug, [facility] [place] [facility] [address] [id number] [place] [address]- 4485 Aug, [facility] [place] [facility] [address] [id number] [place] [address]- 7598 Aug, [facility] [place] [facility] [address] [id number] [place] [address]- 4837 Jul, [facility] [place] [facility] [address] [id number] [place] [address]- 8316 Jul, [facility] [place] [facility] [address] [id number] [place] [address]- 5953 Jul, [facility] [place] [facility] [address] [id number] [place] [address]- 6243 Jul, [facility] [place] [facility] [address] [id number] [place] [address]- 8819 Jul, [facility] [place] [facility] [address] [id number] [place] [address]- 6495 Jul, [facility] [place] [facility] [address] [id number] [place] 4210 Jul, [facility] [place] [facility] [address] [id number] [place] [address]- 2321 Jun, [facility] [place] [facility] [address] [id number] [place] [address]- 0128 Jun, [facility] [place] [facility] [address] [id number] [place] 3953 Jun, [facility] [place] [facility] [address] [id number] [place] [address]- 9594 Jun, [facility] [place] [facility] [address] [id number] [place] [address]- 7604 Jun, [facility] [place] [facility] [address] [id number] [place] [address]- 7586 Jun, [facility] [place] [facility] [address] [id number] [place] [address]- 2146 Jun, [facility] [place] [facility] [address] [id number] [place] [address]- 5839 Jun, [facility] [place] [facility] [address] [id number] [place] [address]- 6770 Jun, [facility] [place] [facility] [address] [id number] [place] [address]- 6495 Jun, [facility] [place] [facility] [address] [id number] [place] [address]- 7215 Jun, [facility] [place] [facility] [address] [id number], [place] [address]- 5118 Jun, [facility] [place] [facility] [address] [id number], [place] [address]- 9994 Jun, [facility] [place] [facility] [address] [id number] [place] 2650 Jun, [facility] [place] [facility] [address] [id number] 5261 May, [facility] [place] [facility] [address] [id number] [place] [address]- 6888 24 May, 2014 [facility] [place] [facility] [address] [id number] [place] [address]- 0499 May, [facility] [place] [facility] [address] [id number] [place] [address]- 0055 May, [facility] [place] [facility] [address] [id number] [place] [address]- 9656 May, [facility] [place] [facility] [address] [id number] [place] [address]- 4454 Apr, [facility] [place] [facility] [address] [id number] [place] [address]- 1975 Apr, [facility] [place] [facility] [address] [id number] [place] [address]- 6194 Apr, [facility] [place] [facility] [address] [id number] [place] [address]- 2058 Apr, [facility] [place] [facility] [address] [id number] [place] [address]- 7124 Mar, [facility] [place] [facility] [address] [id number] [place] [address]- 3915 Mar, [facility] [place] [facility] [address] [id number] [place] [address]- 8906 Mar, [facility] [place] [facility] [address] [id number] [place] [address]- 3416 Mar, [facility] [place] [facility] [address] [id number] [place] [address]- 2899 Mar, [facility] [place] [facility] [address] [id number] [place] [address]- 8193 Mar, [facility] [place] [facility] [address] [id number] [place] [address]- 6149 Mar, [facility] [place] [facility] [address] [id number] [place] [address]- 8206 Mar, [facility] [place] [facility] [address] [id number] [place] 6442 Feb, [facility] [place] [facility] [address] [id number] [place] [address]- 2158 Feb, [facility] [place] [facility] [address] [id number] [place] [address]- 3696 Feb, [facility] [place] [facility] [address] [id number] [place] [address]- 6036 Feb, [facility] [place] [facility] [address] [id number] [place] [address]- 5801 Feb, [facility] [place] [facility] [address] [id number] [place] [address]- 3618 Feb, [facility] [place] [facility] [address] [id number] [place] [address]- 3780 Feb, [facility] [place] [facility] [address] [id number] [place] [address]- 5150 Feb, [facility] [place] [facility] [address] [id number] [place] [address] January, [facility] [place] [facility] [address] [id number] [place] [address] January, [facility] [place] [facility] [address] [id number] [place] [address] January, [facility] [place] [facility] [address] [id number] [place] [address] January, [facility] [place] [facility] [address] [id number] [place] [address] January, [facility] [place] [facility] [address] [id number] [place] [address] January, [facility] [place] [facility] [address] [id number] [place] [address] Dec, [facility] [place] [facility] [address] [id number] [place] [address] Dec, [facility] [place] [facility] [address] [id number] [place] [address] Dec, [facility] [address] [id number] [place] [address] Dec, [facility] [place] [facility] [address] [id number] [place] [address] Dec, [facility] [place] [facility] [address] [id number] [place] [address] Dec, [facility] [place] [facility] [address] [id number] [place] [address] Dec, [facility] [place] [facility] [address] [id number] [place] [address] Dec, [facility] [place] [facility] [address] [id number] [place] [address] Oct, [facility] [address] [id number] [place] [address] Oct, [facility] [place] [facility] [address] [id number] [place] [address] Aug, [facility] [place] [facility] [address] [id number] [place] [address] Aug, [facility] [place] [facility] [address] [id number] [place] [address] Jul, [facility] [place] [facility] [address] [id number] [place] [address] Jul, [facility] [place] [facility] [address] [id number] [place] [address] Mar, [facility] [place] [facility] [address] [id number] [place] [address] Mar, [facility] [place] [facility] [address] [id number] [place] [address] Mar, [facility] [place] [facility] [address] [id number] [place] [address] Feb, [facility] [place] [facility] [address] [id number] [place] [address] Feb, [facility] [address] [id number] [place] [address] Feb, [facility] [address] [id number] [place] [address] January, [facility] [address] [id number] [place] [address] January, [facility] [address] [id number] [place] [address] January, [facility] [address] [id number] [place] [address] January, [facility] [address] [id number] [place] [address] January, [facility] [address] [id number] [place] [address] January, [facility] [address] [id number] [place] [address] January, [facility] [facility] [address] [id number] [place] [address] Dec, [facility] [address] [id number] [place] [address] Dec, [facility] [address] [id number] [place] [address] Dec, [facility] [address] [id number] [place] [address] Dec, [facility] [place] [facility] [address] [id number] [place] [address] Nov, [facility] [place] [facility] [address] [id number] [place] [address] Nov, [facility] [address] [id number] [place] [address] Nov, [facility] [address] [id number] [place] [address] Oct, [facility] [address] [id number] [place] [address] Oct, [facility] [address] [id number] [place] [address] Oct, [facility] [address] [id number] [place] [address] Oct, [facility] [address] [id number] [place] [address] Oct, [facility] [address] [id number] [place] [address] Oct, [facility] [address] [facility] [id number] [place] [address] Sep, [facility] [address] [id number] [place] [address] Sep, [facility] [address] [facility] [id number] [place] [address] Sep, [facility] [address] [facility] [id number] [place] [address] 2017 Sep, [facility] [address] [facility] [id number] [place] [address] Sep, [facility] [address] [id number] [place] [address] Aug, [facility] [address] [id number] [place] [address] Aug, [facility] [address] [facility] [id number] [place] [address] Aug, [facility] [address] [facility] [id number] [place] [address] Aug, [facility] [place] [facility] [address] [id number] [place] [address] 06 Aug, 2012 [facility] [place] [facility] [address] [id number] [place] [address] Aug, [facility] [place] [facility] [address] [id number] [place] [address] Jul, [facility] [place] [facility] [address] [id number] [place] [address] Jul, [facility] [place] [facility] [address] [id number] [place] [address] Jul, [facility] [place] [facility] [address] [id number] [place] [address] Jul, [facility] [place] [facility] [address] [id number] [place] [address] Jul, [facility] [place] [facility] [address] [id number] [place] [address] Jul, [facility] [place] [facility] [address] [id number] [place] [address] 15 Jul, 2012 [facility] [place] [facility] [address] [id number] [place] [address] 15 Jul, 2012 [facility] [place] [facility] [address] [id number] [place] [address] 14 Jul, 2012 [facility] [place] [facility] [address] [id number] [place] [address] Jul, [facility] [place] [facility] [address] [id number] [place] [address]- [address] 12 Jul, 2012 [facility] [place] [facility] [address] [id number] [place] [address] 09 Jul, 2012 [facility] [place] [facility] [address] [id number] [place] [address] 08 Jul, 2012 [facility] [place] [facility] [address] [id number] [place] [address] Jul, [facility] [place] [facility] [address] [id number] [place] [address] Jul, [facility] [place] [facility] [address] [id number] [place] [address] Jul, [facility] [place] [facility] [address] [facility] [id number] [place] [address]- [address] Jul, [facility] [place] [facility] [address] [id number] [place] [address]46 Jul, [facility] [place] [facility] [address] [id number] [place] [address] Jul, [facility] [place] [facility] [address] [id number] [place] [address] Jun, [facility] [place] [facility] [address] [id number] [place] [address] Jun, [facility] [place] [facility] [address] [id number], [place] [address] May, [facility] [place] [facility] [address] [id number] [place] [address] Apr, [facility] [place] [facility] [address] [id number], [place] [address] Mar, [facility] [place] [facility] [address] [id number], [place] [address] Feb, [facility] [place] [facility] [address] [id number], [place] [address] 25[address] Feb, [facility] [place] [facility] [address] [id number] [place] [address]- [address] Feb, [facility] [place] [facility] [address] [facility] [id number], [place] [address] January, [facility] [place] [facility] [address] [facility] [id number] [place] [address]- [address] January, [facility] [place] [facility] [address] [id number] [place] [address]- [address]287 26 Dec, 2011 [facility] [address] [id number] [place] [address] 25 Dec, 2011 [facility] [place] [facility] [address] [id number] [place] [address] 08 Nov, 2011 [facility] [place] [facility] [address] [id number] [place] [address] 12 Aug, 2011 [facility] [place] [facility] [address] [id number] [place] [address] 16 Jul, 2011 [facility] [place] [facility] [address] [id number] [place] [address] 16 Jul, 2011 [facility] [place] [facility] [address] [id number] [place] [address]- [address] 16 Jul, 2011 [facility] [place] [facility] [address] [id number] [place] [address]- [address] 12 Jun, 2011 [facility] [place] [facility] [address] [id number] [place] [address]221 12 Jun, 2011 [facility] [place] [facility] [address] [id number] [place] [address]- [address]30 14 May, 2011 [facility] [place] [facility] [address] [id number] [place] [address]- [address]756 10 Apr, 2011 [facility] [place] [facility] [address] [id number] [place] [address] January, [facility] [place] [facility] [address] [id number] [place] [address]- [address]395 13 Dec, 2010 [facility] [place] [facility] [address] [id number] [place] [address]- 1027 16 Nov, 2010 [facility] [place] [facility] [address] [id number] [place] [address]- [address]235 10 Oct, 2010 [facility] [place] [facility] [address] [id number] [place] [address]- [address] Jun, [facility] [address] [id number], [place] [address] Jun, [facility] [address] [id number], [place] [address] Oct, [facility] [address] [id number], [place] [address] Aug, [facility] [id number], [place] [address] Jul, [facility] [address] [id number], [place] [address] 2546 Dec, IMMUNIZATIONS No Known Immunizations SOCIAL HISTORY Never Assessed REASON FOR VISIT Refill request PLAN OF CARE VITAL SIGNS MEDICATIONS Unknown [...]
--- OUTSIDE RECORDS SUMMARY | 2018-12-13 17:58 | XMS REPORT ---
Author Author ZAYRA GOMEZ Organization [facility] Address [address] [place] [address] Care Team Providers Care Manual Arts Therapist Name Role Phone ZAYRA GOMEZ Unavailable PROBLEMS Type Condition ICD9-CM Code [id number] Code Onset Dates Condition Status SNOMED Code Problem Depression, unspecified depression type F32.9 Active 65674572 Problem Seasonal allergic rhinitis, unspecified allergic rhinitis trigger J30.2 Active 286165837 Problem Irregular periods/menstrual cycles N92.6 Active 89596056 Problem Seasonal allergies J30.2 Active 996260283 Problem Missed period N92.6 Active 79960952 Problem Other headache syndrome G44.89 Active 709285237 Problem Anemia, O90.81 Active 768380568 Problem DANIELLA (generalized anxiety disorder) F41.1 Active 25438367 Problem Dysthymic disorder F34.1 Active 08565183 ALLERGIES Substance Reaction Event Type Date Status Cefaclor Unknown Drug Allergy Nov, Active ENCOUNTERS Encounter Location Date Diagnosis [place] [id number] [place] [address] 54513- 2469 Apr, [facility] [address] [place] [id number] [place] [address] 60494 -1021 Mar, Pain of left calf M79.662 and Muscle spasm of left calf M62.831 [facility] [address] [place] [id number] [place] [address] 98805- 7628 Mar, care in second trimester Z34.92 [place] [address] [place] [id number] [place] [address] 87601- 7725 Mar, Bilateral impacted cerumen H61.23 [facility] [address] [place] [id number] [place] [address] 25358- 3684 Feb, [facility] [address] [place] [address] [id number] [place] [address] 40536 -3028 23 Feb, 2018 [facility] [address] [place] [address] [id number] [place] [address] 13853- 5156 20 Feb, 2018 Normal in multigravida Z34.80 [facility] [address] [place] [address] [id number] [place] [address] 16801- 7550 13 Feb, 2018 Painful urination R30.9 and Encounter for supervision of normal in second trimester Z34.92 [facility] [address] [place] [id number] [place] [address] 73412 -3610 07 Feb, 2018 Seasonal allergies J30.2 [place] [address] 90999- 1103 Feb, [facility] [address] [place] [address] [id number] [place] [address] 61430- 9240 Feb, [facility] [address] [place] [id number] [place] [address] 47506 -6416 January, Seasonal allergic rhinitis, unspecified trigger J30.2 [facility] [address] [place] [id number] [place] [address] 78539 -2031 January, [facility] [address] [place] [address] [id number] [place] [address] 57513 -7781 January, Viral gastroenteritis A08.4 [place] [address] [place] [id number] [place] [address] 64772- 8122 January, [facility] [address] [place] [id number] [place] [address] 02886- 9639 January, care in first trimester Z34.91 [facility] [address] [place] [address] [id number] [place] [address] 00060- 3766 January, [facility] [address] [place] [id number] [place] [address] 13576 -1394 January, Left ankle pain, unspecified chronicity M25.572 [place] [address] [place] [address]- 7496 January, [facility] [address] [place] [address] [id number] [place] [address] 53262- 4000 January, Dysthymic disorder F34.1 and DANIELLA (generalized anxiety disorder) F41.1 [facility] [address] [place] [address] [id number] [place] [address] 56285 -1448 January, Impacted cerumen of both ears H61.23 [facility] [address] [place] [id number] [place] [address] 65745- 1121 Dec, [facility] [address] 03584- 2537 Dec, in multigravida Z34.80 [place] [address] 62561- 2795 Dec, DANIELLA (generalized anxiety disorder) F41.1 and Dysthymic disorder F34.1 [facility] [address] [place] [id number] [place] [address] 51029- 1014 Dec, [facility] [address] 03784- 7175 Nov, [facility] [address] [place] [id number] [place] [address] 06136- 9209 Nov, [place] [address] [place] [id number] [place] [address] 39340- 6858 Nov, Painful urination R30.9 ; Vaginal yeast infection B37.3 and Early stage of Z34.90 [facility] [address] [place] [id number] [place] [address] 02609- 9375 Nov, in multigravida Z34.80 [facility] [address] [place] [id number] [place] [address] 76706- 3325 Nov, Dysfunction of right eustachian tube H69.81 and Bilateral impacted cerumen H61.23 [facility] [address] [place] [address]- 7671 Nov, [facility] [address] [place] [id number] [place] [address] 92428- 4428 Nov, [facility] [address] [place] [id number] [place] [address] 75524- 0802 Nov, [facility] [address] 66770 -5798 Nov, Missed period N92.6 [facility] [address] [place] [id number] [place] [address] 34234- 0863 Sep, DANIELLA (generalized anxiety disorder) F41.1 and Dysthymic disorder F34.1 [facility] [address] [place] [id number] [place] [address] 47110 -9645 Aug, Acute nasopharyngitis J00 [place] [address] 20801- 6343 Jul, Irregular periods/menstrual cycles N92.6 [place] [address] [place] [id number] [place] [address] 57690- 1706 Jul, Bilateral impacted cerumen H61.23 [place] [address] 51913- 9100 Jul, DANIELLA (generalized anxiety disorder) F41.1 and Dysthymic disorder F34.1 [place] [address] [place] [id number] [place] [address] 10119- 5566 Jun, [place] [address] [place] [id number] [place] [address] 58665- 4134 Jun, Dysthymic disorder F34.1 [place] [address] 06001- 1556 Jun, Anemia, O90.81 ; Lower abdominal pain R10.30 ; Allergic contact dermatitis due to adhesives L23.1 and Other headache syndrome G44.89 [place] [address] 43923- 2551 04 Jun, 2017 39 weeks gestation of Z3A.39 [place] [address] 19108- 0292 27 May, 2017 care in third trimester Z34.93 [facility] [address] 76442 -5218 24 May, 2017 Acute seasonal allergic rhinitis, unspecified trigger J30.2 [place] [address] 56241- 8904 20 May, 2017 Normal in multigravida Z34.80 [facility] [place] [address] 92923 -2851 17 May, 2017 Urinary frequency R35.0 and Pain of round ligament N94.9 [place] [address] 16180- 4486 13 May, 2017 35 weeks gestation of Z3A.35 [place] [address] 97599- 3734 Apr, High risk sexual behavior Z72.51 and 33 weeks gestation of Z3A.33 [place] [address] 28714- 1219 Apr, care in third trimester Z34.93 [facility] [place] [address] 46906 -5145 Apr, Bilateral impacted cerumen H61.23 [place] [address] 64318- 0898 Apr, 30 weeks gestation of Z3A.30 and Encounter for immunization Z23 [place] [address] 15463- 1040 Mar, 28 weeks gestation of Z3A.28 [place] [address] 02830- 5671 Mar, [place] [address] [address] 3739 Mar, [facility] [address] [place] [id number] [place] [address] 18707- 9498 Mar, [facility] [address] [place] [id number] [place] [address] 74271- 7977 Mar, 26 weeks gestation of Z3A.26 [facility] [address] [place] [id number] [place] [address] 73590 -0902 Mar, Acute back pain M54.9 [place] [address] [place] [id number] [place] [address] 38743- 3727 Feb, 24 weeks gestation of Z3A.24 [facility] [address] [place] [id number] [place] [address] 64110 -0528 27 Feb, 2017 Lower abdominal pain R10.30 [facility] [address] [place] [id number] [place] [address] 76604 -0422 Feb, Gastroenteritis and colitis, viral A08.4 [place] [address] [place] [id number] [place] [address] 59787- 6443 14 Feb, 2017 care in second trimester Z34.92 [place] [address] [place] [id number] [place] [address] 95404- 4881 07 Feb, 2017 [facility] [address] [place] [id number] [place] [address] 18746 -9617 04 Feb, 2017 Abscess L02.91 [facility] [address] [place] [id number] [place] [address] 71407 -5713 Feb, Vaginal flavia B37.3 [place] [address] [place] [id number] [place] [address] 98549- 8460 January, 20 weeks gestation of Z3A.20 [facility] [address] [place] [id number] [place] [address] 30078- 3966 January, [facility] [address] 98379 -0167 January, Seasonal allergic rhinitis, unspecified allergic rhinitis trigger J30.2 [facility] [address] 76404 -4617 January, Dermatitis L30.9 and Bug bites, initial encounter W57.XXXA [address] 24473- 4234 January, Sore throat J02.9 and Seasonal allergic rhinitis, unspecified allergic rhinitis trigger J30.2 [place] [address] 24485- 6748 January, 16 weeks gestation of Z3A.[address] 63130- 6982 Dec, care in first trimester Z34.[address] 51780- 1198 Nov, care in first trimester Z34.91 and Normal in multigravida Z34.80 [facility] [address] 36498 -7121 Oct, Nausea and vomiting during O21.9 [place] [address] [place] [id number] [place] [address] 84701- 1354 Oct, [place] [address] 59372- 6014 Oct, [address] 59105- 5946 Oct, Encounter for test, result unknown Z32.[address] 46439- 1897 Sep, Irregular periods/menstrual cycles N92.6 ; Sore throat J02.9 ; Nausea R11.0 and Right ear impacted cerumen H61.21 [facility] [address] [place] [address] 54821 -7434 05 Jul, 2016 Vaginal discharge N89.8 ; Other specified bacterial agents as the cause of diseases classified elsewhere B96.89 and Acute vaginitis N76.0 [place] [address] [place] [id number] [place] [address] 21928- 5661 10 Jun, 2016 Depression, unspecified depression type F32.9 [place] [address] 61941- 8135 23 May, 2016 Vaginal candidiasis B37.3 [place] [address] 12020- 5161 20 May, 2016 Acute pharyngitis, unspecified etiology J02.9 [place] [address] [place] [id number] [place] [address] 45539- 7515 19 May, 2016 Depression, unspecified depression type F32.9 [place] [address] [place] [id number] [place] [address] 71015- 8375 12 May, 2016 Depression, unspecified depression type F32.9 [place] [address] [place] [id number] [place] [address] 61574- 0748 12 May, 2016 Dysthymic disorder F34.1 [facility] [place] [address] [place] [id number] [place] [address] 38854 -1690 10 Apr, 2016 Acute suppurative otitis media of right ear without spontaneous rupture of tympanic membrane, recurrence not specified H66.001 [facility] [address] [place] [id number] [place] [address] 42404 -0357 Mar, Herpes zoster without complication B02.9 [facility] [address] [place] [id number] [place] [address] 05320 -7509 18 Dec, 2015 Allergic rhinitis J30.9 [facility] [address] [place] [id number] [place] [address] 75449 -7698 03 Dec, 2015 Lumbago M54.5 [facility] [address] [place] [id number] [place] [address] 36711 -2763 Oct, Dysuria R30.0 and Urinary tract infection N39.0 [facility] [address] [place] [id number] [place] [address] 89175 -5853 Sep, Acute nasopharyngitis J00 and Strep pharyngitis J02.0 [facility] [address] [place] [id number] [place] [address] 59689- 8542 Jul, Upper respiratory tract infection, unspecified type J06.9 [place] [address] [place] [id number] [place] [address] 31383- 0898 Jun, Irritable bowel syndrome without diarrhea K58.9 [place] [address] [place] [id number] [place] [address] 48415- 5926 Jun, [place] [address] [place] [id number] [place] [address] 00496- 8832 May, [place] [address] 18816- 3097 May, [place] [address] [place] [id number] [place] [address] 93134- 3381 May, Otitis externa of left ear 380.10 [place] [address] [place] [id number] [place] [address] 78553- 2131 May, Pain in joint, ankle and foot 719.47 [place] [address] [place] [id number] [place] [address] 68700- 3259 Apr, Pain in joint, ankle and foot 719.47 [place] [address] [place] [id number] [place] [address] 62441- 8918 Mar, Dysuria 788.1 and Incontinence in female 625.6 [place] [address] [place] [id number] [place] [address] 56167- 4045 Feb, Plantar fasciitis of right foot 728.71 ; Ankle weakness 719.67 and Ankle pain, chronic 719.47 [place] [address] [place] [id number] [place] [address]- 7859 Feb, [facility] [address] [id number] [place] [address]- 2962 Feb, Belching 787.3 and Chest wall pain 786.52 [facility] [address] [id number] [place] [address]- 7700 Dec, [facility] [address] [id number] [place] [address]- 9778 Dec, [facility] [address] [id number] [place] [address]- 4342 Nov, [facility] [address] [id number] [place] [address]- 4540 Nov, [facility] [address] [facility] [id number] [place] [address]- 8898 Sep, [facility] [address] [facility] [id number] [address]- 1688 Sep, [facility] [address] [facility] [id number] [place] [address]- 2004 Sep, [facility] [address] [facility] [id number] [address]- 4417 Sep, [facility] [address] [facility] [id number] [address]- 2173 Aug, [facility] [address] [id number] [address]- 1298 Aug, [facility] [place] [facility] [address] [id number] [place] [address]- 6170 Aug, [facility] [address] [id number] [address]- 9311 Aug, [facility] [place] [facility] [address] [facility] [id number] [address]- 0095 Aug, [facility] [address] [id number] [address]- 0315 04 Aug, 2014 [facility] [place] [facility] [address] [id number] [place] [address]- 5279 Aug, [facility] [place] [facility] [address] [id number] [place] [address]- 4698 Aug, [facility] [place] [facility] [address] [facility] [id number] [place] [address]- 6387 Aug, [facility] [place] [facility] [address] [id number] [place] [address]- 6727 Aug, [facility] [place] [facility] [address] [facility] [id number] [place] [address]- 7777 Aug, [facility] [place] [facility] [address] [id number] [place] [address]- 1773 Aug, [facility] [place] [facility] [address] [facility] [id number] [place] [address]- 2336 Aug, [facility] [place] [facility] [address] [id number] [place] [address]- 5199 Aug, [facility] [place] [facility] [address] [facility] [id number] [place] [address]- 2190 Jul, [facility] [place] [facility] [address] [facility] [id number] [place] [address]- 6515 Jul, [facility] [place] [facility] [address] [id number] [address]- 6364 Jul, [facility] [place] [facility] [address] [id number] [address]- 3455 Jul, [facility] [place] [facility] [address] [id number] [address]- 4748 Jul, [facility] [place] [facility] [address] [facility] [id number] [address]- 7515 Jul, [facility] [place] [facility] [address] [facility] [id number], [place] [address]- 7407 Jul, [facility] [place] [facility] [address] [id number] [place] 5412 Jun, [facility] [place] [facility] [address] [id number] [place] [address]- 9983 Jun, [facility] [place] [facility] [address] [id number] [place] [address]- 1936 Jun, [facility] [place] [facility] [address] [id number] [place] 8861 Jun, [facility] [place] [facility] [address] [id number] [place] [address]- 2490 Jun, [facility] [place] [facility] [address] [id number] [place] [address]- 6547 Jun, [facility] [place] [facility] [address] [id number] [place] [address]- 5421 Jun, [facility] [place] [facility] [address] [id number] [place] [address]- 1130 Jun, [facility] [place] [facility] [address] [id number] [place] [address]- 5323 Jun, [facility] [place] [facility] [address] [id number] [place] [address]- 1178 Jun, [facility] [place] [facility] [address] [id number] [place] [address]- 6931 Jun, [facility] [place] [facility] [address] [id number] [place] [address]- 7164 Jun, [facility] [place] [facility] [address] [id number] [place] [address]- 8841 Jun, [facility] [place] [facility] [address] [id number] [place] 4168 Jun, [facility] [place] [facility] [address] [id number] [place] [address]- 0017 May, [facility] [place] [facility] [address] [id number] [place] [address]- 9614 May, [facility] [place] [facility] [address] [id number] [place] [address]- 1714 May, [facility] [place] [facility] [address] [id number] [place] [address]- 6011 May, [facility] [place] [facility] [address] [id number] [place] [address]- 1993 May, [facility] [place] [facility] [address] [id number] [place] [address]- 2906 Apr, [facility] [place] [facility] [address] [id number] [place] [address]- 1739 Apr, [facility] [place] [facility] [address] [id number] [place] [address]- 5813 Apr, [facility] [place] [facility] [address] [id number] [place] [address]- 3495 Apr, [facility] [place] [facility] [address] [id number] [place] [address]- 5926 Mar, [facility] [place] [facility] [address] [id number] [place] [address]- 5753 Mar, [facility] [place] [facility] [address] [id number] [place] [address]- 9097 Mar, [facility] [place] [facility] [address] [id number] [place] [address]- 3161 Mar, [facility] [place] [facility] [address] [id number] [place] [address]- 0871 Mar, [facility] [place] [facility] [address] [id number] [place] [address] Mar, [facility] [place] [facility] [address] [id number] [place] [address] Mar, [facility] [place] [facility] [address] [id number] [place] [address] Mar, [facility] [place] [facility] [address] [id number] [place] [address] Feb, [facility] [place] [facility] [address] [id number] [place] [address] Feb, [facility] [place] [facility] [address] [id number] [place] [address] Feb, [facility] [place] [facility] [address] [id number] [place] [address] Feb, [facility] [place] [facility] [address] [id number] [place] [address] Feb, [facility] [place] [facility] [address] [id number] [place] [address] Feb, [facility] [place] [facility] [address] [id number] [place] [address] Feb, [facility] [place] [facility] [address] [id number] [place] [address] Feb, [facility] [place] [facility] [address] [id number] [place] [address] January, [facility] [place] [facility] [address] [id number] [place] [address] January, [facility] [place] [facility] [address] [id number] [place] [address] January, [facility] [place] [facility] [address] [id number] [place] [address] January, [facility] [place] [facility] [address] [id number] [place] [address] January, [facility] [place] [facility] [address] [id number] [place] [address] January, [facility] [place] [facility] [address] [id number] [place] [address] Dec, [facility] [place] [facility] [address] [id number] [place] [address]- [address] Dec, [facility] [place] [facility] [address] [id number] [place] [address]- [address] Dec, [facility] [place] [facility] [address] [id number] [place] [address] Dec, [facility] [place] [facility] [address] [id number] [place] [address] Dec, [facility] [place] [facility] [address] [id number] [place] [address]- [address] Dec, [facility] [place] [facility] [address] [id number] [place] [address]- [address] Dec, [facility] [place] [facility] [address] [id number] [place] [address] Dec, [facility] [address] [id number] [place] [address] Oct, [facility] [place] [facility] [address] [id number] [place] [address] Oct, [facility] [place] [facility] [address] [id number] [place] [address] Aug, [facility] [place] [facility] [address] [id number] [place] [address]- [address] Aug, [facility] [place] [facility] [address] [id number] [place] [address] Jul, [facility] [place] [facility] [address] [id number] [place] [address] Jul, [facility] [place] [facility] [address] [id number] [place] [address] Mar, [facility] [place] [facility] [address] [id number] [place] [address] Mar, [facility] [place] [facility] [address] [id number] [place] [address] Mar, [facility] [place] [facility] [address] [id number] [place] [address]- 84[address] Feb, [facility] [address] [id number] [place] [address] Feb, [facility] [address] [id number] [place] [address]- [address] Feb, [facility] [address] [id number] [place] [address] January, [facility] [address] [id number] [place] [address]- [address] January, [facility] [address] [id number] [id number] [address] January, [facility] [address] [id number] [id number] [address] January, [facility] [address] [id number] [place] [address] January, [facility] [address] [id number] [place] [address] January, [facility] [address] [id number] [place] [address] January, [facility] [address] [id number] [place] [address] Dec, [facility] [address] [id number] [place] [address] Dec, [facility] [place] [facility] [address] [id number] [place] [address] Dec, [facility] [place] [facility] [address] [id number] [place] [address] Dec, [facility] [place] [facility] [address] [id number] [place] [address] Nov, [facility] [place] [facility] [address] [id number] [place] [address] Nov, [facility] [place] [facility] [address] [id number] [place] [address] Nov, [facility] [address] [id number] [place] [address] Oct, [facility] [place] [facility] [address] [id number] [place] [address] Oct, [facility] [place] [facility] [address] [id number] [place] [address] 2546 Oct, [facility] [place] [facility] [address] [id number] [place] [address] Oct, [facility] [place] [facility] [address] [id number] [place] [address] Oct, [facility] [address] [id number] [place] [address] Oct, [facility] [place] [facility] [address] [id number] [place] [address] Sep, [facility] [place] [facility] [address] [id number] [place] [address] Sep, [facility] [place] [facility] [address] [id number] [place] [address] Sep, [facility] [place] [facility] [address] [id number] [place] [address] Sep, [facility] [place] [facility] [address] [id number] [place] [address] Sep, [facility] [place] [facility] [address] [id number] [place] [address] Aug, [facility] [place] [facility] [address] [id number] [place] [address] Aug, [facility] [place] [facility] [address] [id number] [place] [address] 1001 Aug, [facility] [place] [facility] [address] [id number] [place] [address] Aug, [facility] [place] [facility] [address] [id number] [place] [address] Aug, [facility] [place] [facility] [address] [id number] [place] [address] Aug, [facility] [place] [facility] [address] [id number] [place] [address]394 Jul, [facility] [place] [facility] [address] [id number] [place] [address]157 Jul, [facility] [place] [facility] [address] [id number] [place] [address] Jul, [facility] [place] [facility] [address] [id number] [place] [address] 287[address] Jul, [facility] [place] [facility] [address] [id number] [place] [address] Jul, [facility] [place] [facility] [address] [id number] [place] [address] Jul, [facility] [place] [facility] [address] [id number] [place] [address]- [address] 15 Jul, 2012 [facility] [place] [facility] [address] [id number] [place] [address] 2890 15 Jul, 2012 [facility] [place] [facility] [address] [id number] [address] 14 Jul, 2012 [facility] [place] [facility] [address] [id number] [address] Jul, [facility] [place] [facility] [address] [id number] [place] [address] 37[address] Jul, [facility] [place] [facility] [address] [id number] [place] [address] 8432 09 Jul, 2012 [facility] [place] [facility] [address] [id number] [place] [address]- 7638 08 Jul, 2012 [facility] [place] [facility] [address] [id number] [place] [address]- [address]46 08 Jul, 2012 [facility] [place] [facility] [address] [id number] [place] [address]- [address]328 Jul, [facility] [place] [facility] [address] [id number] [place] [address] 2546 Jul, [facility] [place] [facility] [address] [id number] [place] [address] 8[address] Jul, [facility] [place] [facility] [address] [id number] [place] [address]- 2546 Jul, [facility] [place] [facility] [address] [id number] [place] [address], [place] [address]- [address] Jul, [facility] [place] [facility] [address] [id number] [place] [address]- 2886 Jun, [facility] [place] [facility] [address] [id number] [place] [address]- 8636 Jun, [facility] [place] [facility] [address] [id number] [place] [address]- 8097 May, [facility] [place] [facility] [address] [id number] [place] [address] Apr, [facility] [place] [facility] [address] [id number] [place] [address]- 2546 Mar, [facility] [place] [facility] [address] [id number] [place] [address] 2543 Feb, [facility] [place] [facility] [address] [id number] [place] [address]- 2546 Feb, [facility] [place] [facility] [address] [id number] [place] [address]- 4[address] Feb, [facility] [place] [facility] [address] [id number] [place] [address]- 2546 January, [facility] [place] [facility] [address] [id number] [place] [address] 0198 January, [facility] [place] [facility] [address] [id number] [place] [address]- 2364 Dec, [facility] [place] [facility] [address] [id number] [place] [address] 0379 Dec, [facility] [place] [facility] [address] [id number] [place] [address] Nov, [facility] [place] [facility] [address] [id number] [place] [address]- 6189 Aug, [facility] [place] [facility] [address] [id number] [place] [address]- 1485 Jul, [facility] [place] [facility] [address] [id number] [place] [address]- 4053 Jul, [facility] [place] [facility] [address] [id number] [place] [address]- 4450 Jul, [facility] [place] [facility] [address] [id number] [place] [address]- 7193 Jun, [facility] [place] [facility] [address] [id number] [place] [address]- 4587 Jun, [facility] [place] [facility] [address] [id number] [place] [address]- 3562 14 May, 2011 [facility] [place] [facility] [address] [id number] [place] [address]- 6003 Apr, [facility] [place] [facility] [address] [id number] [place] [address]- 2162 January, [facility] [place] [facility] [address] [id number] [place] [address]- 6191 Dec, [facility] [place] [facility] [address] [id number] [place] [address] 16 Nov, 2010 [facility] [place] [facility] [address] [id number] [place] [address] 10 Oct, 2010 [facility] [place] [facility] [address] [id number] [address] 14 Jun, 2010 [facility] [id number] [address] Jun, [facility] [address] [id number] [address] Oct, [facility] [id number] [address] Aug, [facility] [id number] [place] [address]- [address] Jul, [facility] [id number] [place] [address] Dec, IMMUNIZATIONS No Known Immunizations SOCIAL HISTORY Never Assessed REASON FOR VISIT OB-intake -- harry mckeon, patient wants to talk to dr. Gomez before doing anything today , she wants to have an . PLAN OF CARE Activity Details Follow Up PRN Reason: VITAL SIGNS Height 61 in 2017-12-10 Weight 187.0 lbs 2017-12-10 Temperature 97.0 degrees Fahrenheit 2017-12-10 Heart Rate 78 bpm 2017-12-10 Respiratory Rate 18 2017-12-10 BMI 35.333 kg/m2 2017-12-10 Blood pressure systolic 120 mmHg 2017-12-10 Blood pressure diastolic 76 mmHg 2017-12-10 MEDICATIONS Medication Instructions Dosage Frequency Start Date End Date Duration Status SudoGest 60 mg Orally every 6 hrs 1 tablet as needed 6h Nov, 05 days Not-Taking Zoloft 50 mg Orally Once a day 1 tablet 24h Sep, 30 day(s) Not -Taking Flonase 50 MCG/ACT Nasally Once a day 2 sprays in each nostril 24h Nov, 30 day(s) Not-Taking RESULTS Name Result Date Reference Range UA OB DIP (IN HOUSE) 2017-12-10 Glucose neg Protein trace Ultrasound : OB, Early <14 WEEKS 2017-12-16 PROCEDURES Procedure Date Ordered Result Body Site URINE-NO MICRO December 10, 2017 INSTRUCTIONS MEDICATIONS ADMINISTERED No Known Medications [...]
--- OUTSIDE RECORDS SUMMARY | 2018-12-13 17:58 | XMS REPORT ---
Author Author TYE HERZOG 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 Name Role Phone TYE HERZOG Unavailable PROBLEMS Type Condition ICD9-CM Code UCU69-GR Code Onset Dates Condition Status SNOMED Code Problem Depression, unspecified depression type F32.9 Active 15620842 Problem Seasonal allergic rhinitis, unspecified allergic rhinitis trigger J30.2 Active 033573807 Problem Irregular periods/menstrual cycles N92.6 Active 94855896 Problem Seasonal allergies J30.2 Active 215110092 Problem Missed period N92.6 Active 55085483 Problem Other headache syndrome G44.89 Active 127791462 Problem Anemia, O90.81 Active 362057305 Problem DANIELLA (generalized anxiety disorder) F41.1 Active 63440037 Problem Dysthymic disorder F34.1 Active 19799357 ALLERGIES Substance Reaction Event Type Date Status Cefaclor Unknown Drug Allergy Nov, Active ENCOUNTERS Encounter Location Date Diagnosis [place] [id number] [place] [address] 61790- 2350 Apr, [facility] [id number] [place] [address] 21306 -7715 Mar, Pain of left calf M79.662 and Muscle spasm of left calf M62.831 [facility] [id number] [place] [address] 70963- 2988 Mar, care in second trimester Z34.[address] 09192- 1630 Mar, Bilateral impacted cerumen H61.23 [facility] [id number] [place] [address] 09488- 1488 Feb, [facility] [address] [place] [address] 23 Feb, 2018 [facility] [id number] [place] [address] 33549- 8462 20 Feb, 2018 Normal in multigravida Z34.80 [facility] [id number] [place] [address] 88958- 8773 13 Feb, 2018 Painful urination R30.9 and Encounter for supervision of normal in second trimester Z34.[address] [facility] [id number] [place] [address] 14089 -2864 07 Feb, 2018 Seasonal allergies J30.2 [facility] [address] 93336- 3358 Feb, [facility] [id number] [place] [address] 61884- 3776 Feb, [facility] [id number] [place] [address] 85781 -7382 January, Seasonal allergic rhinitis, unspecified trigger J30.[address] [facility] [id number] [place] [address] 33916 -3912 January, [facility] [id number] [place] [address] 19486 -7811 January, Viral gastroenteritis A08.4 [facility] [id number] [place] [address] 18511- 2119 January, [facility] [id number] [place] [address] 78814- 7158 January, care in first trimester Z34.91 [facility] [address] 12581- 8337 January, [facility] [id number] [place] [address] 31778 -6738 January, Left ankle pain, unspecified chronicity M25.572 [facility] [address] [place] [address]- 0856 January, [facility] [address] 33766- 5064 January, Dysthymic disorder F34.1 and DANIELLA (generalized anxiety disorder) F41.[address] [facility] [id number] [place] [address] 64402 -9384 January, Impacted cerumen of both ears H61.23 [facility] [address] 26962- 8144 Dec, [facility] [address] 80219- 5397 Dec, in multigravida Z34.80 [place] [address] 76887- 6755 Dec, DANIELLA (generalized anxiety disorder) F41.1 and Dysthymic disorder F34.1 [facility] [address] 33066- 2597 Dec, [facility] [address] 80898- 5000 Nov, [facility] [id number] [place] [address] 49503- 1259 Nov, [place] [id number] [place] [address] 16939- 9661 Nov, Painful urination R30.9 ; Vaginal yeast infection B37.3 and Early stage of Z34.90 [facility] [id number] [place] [address] 64727- 0856 Nov, in multigravida Z34.80 [facility] [address] 28534- 9394 Nov, Dysfunction of right eustachian tube H69.81 and Bilateral impacted cerumen H61.23 [facility] [address] [place] [address]- 9754 Nov, [facility] [address] 52989- 4756 Nov, [facility] [address] 10594- 0296 Nov, [facility] [address] 20077 -6003 Nov, Missed period N92.6 [facility] [address] 49444- 8806 Sep, DANIELLA (generalized anxiety disorder) F41.1 and Dysthymic disorder F34.1 [facility] [address] 25973 -5512 Aug, Acute nasopharyngitis J00 [place] [address] 36161- 1736 Jul, Irregular periods/menstrual cycles N92.6 [place] [address] 00328- 1354 Jul, Bilateral impacted cerumen H61.23 [place] [address] 80676- 0928 Jul, DANIELLA (generalized anxiety disorder) F41.1 and Dysthymic disorder F34.1 [place] [address] 86389- 0861 Jun, [place] [address] 17655- 0225 Jun, Dysthymic disorder F34.1 [place] [address] 41679- 1871 Jun, Anemia, O90.81 ; Lower abdominal pain R10.30 ; Allergic contact dermatitis due to adhesives L23.1 and Other headache syndrome G44.89 [place] [address] 55489- 3651 Jun, 39 weeks gestation of Z3A.39 [place] [address] 66833- 7491 27 May, 2017 care in third trimester Z34.93 [facility] [place] [address] 68363 -6021 24 May, 2017 Acute seasonal allergic rhinitis, unspecified trigger J30.2 [place] [address] 82633- 5449 20 May, 2017 Normal in multigravida Z34.80 [facility] [address] 35477 -6298 17 May, 2017 Urinary frequency R35.0 and Pain of round ligament N94.9 [place] [address] 89397- 3923 13 May, 2017 35 weeks gestation of Z3A.35 [place] [address] 66061- 0645 Apr, High risk sexual behavior Z72.51 and 33 weeks gestation of Z3A.33 [place] [address] 03577- 0869 Apr, care in third trimester Z34.93 [facility] [place] [address] 57632 -9836 Apr, Bilateral impacted cerumen H61.23 [place] [address] 74275- 1207 Apr, 30 weeks gestation of Z3A.30 and Encounter for immunization Z23 [place] [address] 95171- 9124 Mar, 28 weeks gestation of Z3A.28 [place] [address] 81659- 9413 Mar, [place] [address] [address]- 1747 13 Mar, 2017 [facility] [id number] [place] [address] 94131- 3013 Mar, [facility] [id number] [place] [address] 60546- 5645 Mar, 26 weeks gestation of Z3A.26 [facility] [id number] [place] [address] 40023 -2822 Mar, Acute back pain M54.9 [facility] [id number] [place] [address] 92300- 6215 28 Feb, 2017 24 weeks gestation of Z3A.24 [facility] [place] [id number] [place] [address] 71189 -6912 27 Feb, 2017 Lower abdominal pain R10.[address] [facility] [address] [place] [id number] [place] [address] 57753 -4393 Feb, Gastroenteritis and colitis, viral A08.4 [place] [id number] [place] [address] 65051- 1822 14 Feb, 2017 care in second trimester Z34.92 [place] [id number] [place] [address] 40259- 4557 07 Feb, 2017 [facility] [place] [id number] [place] [address] 34661 -3830 Feb, Abscess L02.[address] [facility] [place] N [address] [place] [address] 92053 -5180 Feb, Vaginal flavia B37.3 [place] [id number] [place] [address] 63218- 3770 January, 20 weeks gestation of Z3A.20 [facility] [id number] [place] [address] 27134- 9332 January, [facility] [address] 38716 -2267 January, Seasonal allergic rhinitis, unspecified allergic rhinitis trigger J30.2 [facility] [place] [address] 47061 -2690 January, Dermatitis L30.9 and Bug bites, initial encounter W57.XXXA [address] 18554- 7800 January, Sore throat J02.9 and Seasonal allergic rhinitis, unspecified allergic rhinitis trigger J30.2 [place] [address] 16183- 3115 January, 16 weeks gestation of Z3A.16 [place] [address] 99586- 6653 Dec, care in first trimester Z34.[address] 82084- 7737 Nov, care in first trimester Z34.91 and Normal in multigravida Z34.80 [facility] [address] 85983 -3614 Oct, Nausea and vomiting during O21.9 [place] [id number] [place] [address] 41922- 9751 Oct, [place] [address] 69327- 0253 Oct, [address] 57937- 6592 Oct, Encounter for test, result unknown Z32.[address] 31103- 2918 Sep, Irregular periods/menstrual cycles N92.6 ; Sore throat J02.9 ; Nausea R11.0 and Right ear impacted cerumen H61.21 [facility] [id number] [place] [address] 88413 -1900 05 Jul, 2016 Vaginal discharge N89.8 ; Other specified bacterial agents as the cause of diseases classified elsewhere B96.89 and Acute vaginitis N76.0 [place] [id number] [place] [address] 49718- 4285 10 Jun, 2016 Depression, unspecified depression type F32.9 [place] [address] 40318- 6579 23 May, 2016 Vaginal candidiasis B37.3 [place] [address] 31457- 2188 20 May, 2016 Acute pharyngitis, unspecified etiology J02.9 [place] [id number] [place] [address] 66543- 4524 19 May, 2016 Depression, unspecified depression type F32.9 [place] [id number] [place] [address] 81200- 5278 12 May, 2016 Depression, unspecified depression type F32.9 [place] [id number] [place] [address] 68598- 5780 12 May, 2016 Dysthymic disorder F34.[address] [facility] [place] [id number] [place] [address] 31604 -8279 10 Apr, 2016 Acute suppurative otitis media of right ear without spontaneous rupture of tympanic membrane, recurrence not specified H66.001 [facility] [id number] [place] [address] 11175 -7261 Mar, Herpes zoster without complication B02.[address] [facility] [address] [place] [id number] [place] [address] 90130 -1202 18 Dec, 2015 Allergic rhinitis J30.[address] [facility] [place] [id number] [place] [address] 56724 -8663 03 Dec, 2015 Lumbago M54.[address] [facility] [id number] [place] [address] 63529 -6405 Oct, Dysuria R30.0 and Urinary tract infection N39.0 [facility] [id number] [place] [address] 08904 -2613 Sep, Acute nasopharyngitis J00 and Strep pharyngitis J02.0 [facility] [id number] [place] [address] 67915- 7025 Jul, Upper respiratory tract infection, unspecified type J06.9 [facility] [id number] [place] [address] 33196- 1676 Jun, Irritable bowel syndrome without diarrhea K58.9 [place] [address] 22780- 4854 Jun, [place] [address] 83022- 4451 May, [place] [address] 99091- 4672 May, [place] [id number] [place] [address] 89095- 6845 May, Otitis externa of left ear 380.10 [place] [id number] [place] [address] 94557- 4562 May, Pain in joint, ankle and foot 719.47 [place] [id number] [place] [address] 12873- 8447 Apr, Pain in joint, ankle and foot 719.47 [place] [id number] [place] [address] 30622- 6618 Mar, Dysuria 788.1 and Incontinence in female 625.6 [place] [id number] [place] [address] 58159- 2479 30 Feb, 2015 Plantar fasciitis of right foot 728.71 ; Ankle weakness 719.67 and Ankle pain, chronic 719.47 [place] [address] [place] [facility] [place] [address]- 3404 Feb, [facility] [address] [id number] [place] [address]- 1685 Feb, Belching 787.3 and Chest wall pain 786.52 [facility] [address] [id number] [place] [address]- 2466 Dec, [facility] [address] [id number] [place] [address]- 0540 Dec, [facility] [address] [id number] [place] [address]- 3753 Nov, [facility] [address] [id number] [place] [address]- 0878 Nov, [facility] [address] [facility] [id number] [place] [address]- 7659 Sep, [facility] [address] [facility] [id number] [place] [address]- 6334 Sep, [facility] [address] [facility] [id number] [place] [address]- 8556 Sep, [facility] [address] [facility] [id number], [place] [address]- 7552 Sep, [facility] [address] [facility] [id number], [place] [address]- 4136 Aug, [facility] [address] [id number], [place] [address]- 5437 Aug, [facility] [address] [id number] [place] [address]- 0301 Aug, [facility] [address] [id number] [place] 0855 Aug, [facility] [address] [facility] [id number], [place] [address]- 4066 Aug, [facility] [address] [facility] [id number], [place] [address]- 3192 Aug, [facility] [place] [facility] [address] [id number] [place] [address]- 4794 Aug, [facility] [place] [facility] [address] [id number] [place] 4521 Aug, [facility] [place] [facility] [address] [id number] [place] [address]- 4640 Aug, [facility] [place] [facility] [address] [id number] [place] [address]- 2982 Aug, [facility] [place] [facility] [address] [id number] [place] [address]- 4607 Aug, [facility] [place] [facility] [address] [id number] [place] [address]- 5559 Aug, [facility] [place] [facility] [address] [id number] [place] [address]- 1130 Aug, [facility] [place] [facility] [address] [id number] [place] [address]- 7876 Aug, [facility] [place] [facility] [address] [id number] [place] [address]- 0910 Jul, [facility] [place] [facility] [address] [id number] [place] [address]- 0509 Jul, [facility] [place] [facility] [address] [id number], [place] [address]- 3799 Jul, [facility] [place] [facility] [address] [id number], [place] [address]- 2044 Jul, [facility] [place] [facility] [address] [id number], [place] [address]- 0771 Jul, [facility] [place] [facility] [address] [id number], [place] [address]- 6260 Jul, [facility] [place] [facility] [address] [id number] [place] [address]- 1384 Jul, [facility] [place] [facility] [address] [id number] [place] [address]- 2639 Jun, 2013 [facility] [place] [facility] [address] [id number] [place] [address]- 8325 Jun, [facility] [place] [facility] [address] [id number] [place] [address]- 7048 Jun, [facility] [place] [facility] [address] [id number] [place] [address]- 6135 Jun, [facility] [place] [facility] [address] [id number] [place] [address]- 0666 Jun, [facility] [place] [facility] [address] [id number] [place] [address]- 2357 Jun, [facility] [place] [facility] [address] [id number] [place] [address]- 8247 Jun, [facility] [place] [facility] [address] [id number] [place] [address]- 1298 Jun, [facility] [place] [facility] [address] [id number] [place] [address]- 8937 Jun, [facility] [place] [facility] [address] [id number] [place] [address]- 1403 Jun, [facility] [place] [facility] [address] [id number] [place] [address]- 3330 Jun, [facility] [place] [facility] [address] [id number] [place] [address]- 2268 Jun, [facility] [place] [facility] [address] [id number] [place] [address]- 2551 Jun, [facility] [place] [facility] [address] [id number] [place] [address]- 9861 Jun, [facility] [place] [facility] [address] [id number] [place] [address]- 7288 May, [facility] [place] [facility] [address] [id number] [place] [address]- 3679 May, [facility] [place] [facility] [address] [id number] [place] [address]- 8331 May, [facility] [place] [facility] [address] [id number] [place] [address]- 4868 May, [facility] [place] [facility] [address] [id number] [place] [address]- 1179 May, [facility] [place] [facility] [address] [id number] [place] [address]- 2728 Apr, [facility] [place] [facility] [address] [id number] [place] [address]- 0536 Apr, [facility] [place] [facility] [address] [id number] [place] [address]- 7494 Apr, [facility] [place] [facility] [address] [id number] [place] [address]- 4359 Apr, [facility] [place] [facility] [address] [id number] [place] [address]- 2342 Mar, [facility] [place] [facility] [address] [id number] [place] [address]- 9925 Mar, [facility] [place] [facility] [address] [id number] [place] [address]- 8700 Mar, [facility] [place] [facility] [address] [id number] [place] [address]- 3630 Mar, [facility] [place] [facility] [address] [id number] [place] [address]- 4520 Mar, [facility] [place] [facility] [address] [id number] [place] [address]- 5379 Mar, [facility] [place] [facility] [address] [id number] [place] [address]- 8350 Mar, [facility] [place] [facility] [address] [id number] [place] [address]- 4130 Mar, [facility] [place] [facility] [address] [id number] [place] [address]- 2267 Feb, [facility] [place] [facility] [address] [id number] [place] [address]- 1858 Feb, [facility] [place] [facility] [address] [id number] [place] [address]- 4926 Feb, [facility] [place] [facility] [address] [id number] [place] [address]- 8837 Feb, [facility] [place] [facility] [address] [id number] [place] [address]- 8244 Feb, [facility] [place] [facility] [address] [id number] [place] [address]- 5825 Feb, [facility] [place] [facility] [address] [id number] [place] [address] Feb, [facility] [place] [facility] [address] [id number] [place] [address] Feb, [facility] [place] [facility] [address] [id number] [place] [address] January, [facility] [place] [facility] [address] [id number] [place] [address] January, [facility] [place] [facility] [address] [id number] [place] [address] January, [facility] [place] [facility] [address] [id number] [place] [address] January, [facility] [place] [facility] [address] [id number] [place] [address] January, [facility] [place] [facility] [address] [id number] [place] [address] January, [facility] [place] [facility] [address] [id number] [place] [address] Dec, [facility] [place] [facility] [address] [id number] [place] [address] Dec, [facility] [place] [facility] [address] [id number] [place] [address] Dec, [facility] [place] [facility] [address] [id number] [place] [address] Dec, [facility] [place] [facility] [address] [id number] [place] [address] Dec, [facility] [place] [facility] [address] [id number] [place] [address] Dec, [facility] [place] [facility] [address] [id number] [place] [address] Dec, [facility] [place] [facility] [address] [id number] [place] [address] Dec, [facility] [place] [facility] [address] [id number] [place] [address] Oct, [facility] [place] [facility] [address] [id number] [place] [address] Oct, [facility] [place] [facility] [address] [id number] [place] [address] Aug, [facility] [place] [facility] [address] [id number] [place] [address] Aug, [facility] [place] [facility] [address] [id number] [place] [address] Jul, [facility] [place] [facility] [address] [id number] [place] [address] Jul, [facility] [place] [facility] [address] [id number] [place] [address] Mar, [facility] [place] [facility] [address] [id number] [place] [address] Mar, [facility] [place] [facility] [address] [id number] [place] [address] Mar, [facility] [place] [facility] [address] [id number] [place] [address] Feb, [facility] [address] [id number] [place] [address] Feb, [facility] [address] [id number] [place] [address] Feb, [facility] [address] [id number] [place] [address] January, [facility] [address] [id number] [place] [address] January, [facility] [address] [id number] [place] [address] January, [facility] [address] [id number] [place] [address] January, [facility] [address] [id number] [place] [address] January, [facility] [address] [id number] [place] [address] January, [facility] [address] [id number] [place] [address] 139[address] January, [facility] [address] [id number] [place] [address] Dec, [facility] [address] [id number] [place] [address] Dec, [facility] [place] [facility] [address] [id number] [place] [address] Dec, [facility] [place] [facility] [address] [id number] [place] [address] Dec, [facility] [place] [facility] [address] [id number] [place] [address] Nov, [facility] [facility] [address] [id number] [place] [address] Nov, [facility] [place] [facility] [address] [id number] [place] [address] Nov, [facility] [address] [id number] [place] [address] Oct, [facility] [place] [facility] [address] [id number] [place] [address] Oct, [facility] [address] [id number] [place] [address] Oct, [facility] [place] [facility] [address] [id number] [place] [address] Oct, [facility] [address] [id number] [place] [address] Oct, [facility] [address] [id number] [place] [address] Oct, [facility] [address] [id number] [place] [address] Sep, [facility] [address] [id number] [place] [address] Sep, [facility] [address] [id number] [place] [address] Sep, [facility] [address] [id number] [place] [address] Sep, [facility] [address] [id number] [place] [address] Sep, [facility] [address] [id number] [place] [address] Aug, [facility] [place] [facility] [address] [id number] [place] [address] Aug, [facility] [facility] [address] [id number] [place] [address] 07 Aug, 2012 [facility] [facility] [address] [id number] [place] [address] Aug, [facility] [place] [facility] [address] [id number] [place] [address] 06 Aug, 2012 [facility] [place] [facility] [address] [id number] [place] [address] Aug, [facility] [place] [facility] [address] [facility] [id number] [place] [address] Jul, [facility] [place] [facility] [address] [id number] [place] [address] 29 Jul, 2012 [facility] [place] [facility] [address] [id number] [place] [address] Jul, [facility] [place] [facility] [address] [id number] [place] [address] Jul, [facility] [place] [facility] [address] [id number] [place] [address] Jul, [facility] [place] [facility] [address] [id number] [place] [address] Jul, [facility] [place] [facility] [address] [id number] [place] [address] 15 Jul, 2012 [facility] [place] [facility] [address] [id number] [place] [address] 15 Jul, 2012 [facility] [place] [facility] [address] [id number], [place] [address] 14 Jul, 2012 [facility] [facility] [address] [id number], [place] [address] 12 Jul, 2012 [facility] [address] [id number] [place] [address] 12 Jul, 2012 [facility] [place] [facility] [address] [facility] [id number], [place] [address] 09 Jul, 2012 [facility] [place] [facility] [address] [facility] [id number], [place] [address] 08 Jul, 2012 [facility] [place] [facility] [address] [id number] [place] [address] 08 Jul, 2012 [facility] [place] [facility] [address] [id number] [place] [address] Jul, [facility] [place] [facility] [address] [id number] [place] [address] Jul, [facility] [place] [facility] [address] [id number] [place] [address] Jul, [facility] [place] [facility] [address] [id number] [place] [address] Jul, [facility] [place] [facility] [address] [id number] [place] [address] Jul, [facility] [place] [facility] [address] [id number] [place] [address] Jun, [facility] [place] [facility] [address] [id number] [place] [address] Jun, [facility] [place] [facility] [address] [id number] [place] [address] May, [facility] [facility] [address] [id number] [place] [address] Apr, [facility] [facility] [address] [id number] [place] [address] Mar, [facility] [place] [facility] [address] [id number] [place] [address] Feb, [facility] [address] [id number] [place] [address] Feb, [facility] [address] [id number] [place] [address] Feb, [facility] [address] [id number] [place] [address] January, [facility] [address] [id number] [place] [address] January, [facility] [address] [id number] [place] [address] Dec, [facility] [address] [id number] [place] [address] Dec, [facility] [address] [id number] [place] [address] 42[address] Nov, [facility] [address] [id number] [place] [address] Aug, [facility] [place] [facility] [address] [id number] [place] [address] Jul, [facility] [address] [id number] [place] [address] Jul, [facility] [address] [id number] [place] [address]- [address] Jul, [facility] [place] [facility] [address] [id number] [place] [address]- 113[address] Jun, [facility] [address] [id number] [place] [address] Jun, [facility] [place] [facility] [address] [id number] [place] [address] 14 May, 2011 [facility] [place] [facility] [address] [id number] [place] [address] 1134 Apr, [facility] [facility] [address] [id number], [place] [address] January, [facility] [address] [id number] [place] [address] 79[address] Dec, [facility] [address] [id number] [place] [address] 16 Nov, 2010 [facility] [facility] [address] [id number] [place] [address] 10 Oct, 2010 [facility] [address] [id number], [place] [address] Jun, [facility] [address] [facility] [id number], [place] [address] Jun, [facility] [address] [facility] [id number], [place] [address] 2546 Oct, [facility] [address] [facility] [id number], [place] [address] Aug, [facility] [address] [facility] [id number], [place] [address] Jul, [place] [address] [facility] [id number], [place] [address] Dec, IMMUNIZATIONS No Known Immunizations SOCIAL HISTORY Never Assessed REASON FOR VISIT Earache. Having sharp pains, discomfort in ears that started about a week ago. Has tried heating pad but did not help. Eliza DELANEY PLAN OF CARE Activity Details Follow Up prn Reason: VITAL SIGNS Height 61 in 2017-12-05 Weight 184 lbs 2017-12-05 Temperature 98.2 degrees Fahrenheit 2017-12-05 Heart Rate 80 bpm 2017-12-05 Respiratory Rate 20 2017-12-05 BMI 34.76 kg/m2 2017-12-05 Blood pressure systolic 112 mmHg 2017-12-05 Blood pressure diastolic 70 mmHg 2017-12-05 MEDICATIONS Medication Instructions Dosage Frequency Start Date End Date Duration Status Zoloft 50 mg Orally Once a day 1 tablet 24h Sep, 30 day(s) Not -Taking SudoGest 60 mg Orally every 6 hrs 1 tablet as needed 6h Nov, 05 days Active Flonase 50 MCG/ACT Nasally Once a day 2 sprays in each nostril 24h Nov, 30 day(s) Active RESULTS No Results PROCEDURES Procedure Date Ordered Result Body Site EAR LAVAGE 2017-12-05 N/A INSTRUCTIONS MEDICATIONS ADMINISTERED No Known Medications MEDICAL [...]
--- OUTSIDE RECORDS SUMMARY | 2018-12-13 17:59 | XMS REPORT ---
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 Role Phone ZAYRA GOMEZ Unavailable PROBLEMS Type Condition ICD9-CM Code NBA20-WZ Code Onset Dates Condition Status SNOMED Code Problem Depression, unspecified depression type F32.9 Active 64514314 Problem Seasonal allergic rhinitis, unspecified allergic rhinitis trigger J30.2 Active 776794840 Problem Irregular periods/menstrual cycles N92.6 Active 68216208 Problem Seasonal allergies J30.2 Active 156980456 Problem Missed period N92.6 Active 67409380 Problem Other headache syndrome G44.89 Active 528267551 Problem Anemia, O90.81 Active 227043299 Problem DANIELLA (generalized anxiety disorder) F41.1 Active 75517714 Problem Dysthymic disorder F34.1 Active 11483198 ALLERGIES No Information ENCOUNTERS Encounter Location Date Diagnosis [place] [id number] 50354- 1458 Apr, [facility] [address] [place] [id number] [place] [address] 76862 -2380 Mar, Pain of left calf M79.662 and Muscle spasm of left calf M62.831 [facility] [address] [id number] [place] [address] 40869- 1952 Mar, care in second trimester Z34.92 [place] [address] [place] [id number] [place] [address] 64342- 9460 Mar, Bilateral impacted cerumen H61.23 [facility] [address] [place] [id number] [place] [address] 69644- 9929 Feb, [facility] [address] [id number] [place] [address] 64237 -9463 Feb, [facility] [id number] [place] [address] 53531- 9539 20 Feb, 2018 Normal in multigravida Z34.80 [facility] [address] [id number] [place] [address] 62304- 0262 13 Feb, 2018 Painful urination R30.9 and Encounter for supervision of normal in second trimester Z34.92 [facility] [address] 27666 -4312 07 Feb, 2018 Seasonal allergies J30.2 [place] [address] 0[address]22- 1964 Feb, [place] [address] 05427- 1974 Feb, [facility] [address] 69169 -9118 January, Seasonal allergic rhinitis, unspecified trigger J30.2 [facility] [address] [place] [id number] [place] [address] 46579 -2237 January, [facility] [address] [place] [id number] [place] [address] 01764 -3379 January, Viral gastroenteritis A08.4 [place] [address] [id number] [place] [address] 27587- 5435 January, [place] [address] [place] [id number] [place] [address] 25384- 3106 January, care in first trimester Z34.91 [place] [address] [place] [id number] [place] [address] 69139- 8189 January, [facility] [id number] [place] [address] 55870 -3014 January, Left ankle pain, unspecified chronicity M25.572 [place] [address] 08556- 5487 January, [facility] [id number] [place] [address] 05454- 3149 January, Dysthymic disorder F34.1 and DANIELLA (generalized anxiety disorder) F41.1 [facility] [id number] [place] [address] 71898 -8765 January, Impacted cerumen of both ears H61.23 [facility] [address] [place] [id number] [place] [address] 85675- 7068 Dec, [place] [address] [place] [id number] [place] [address] 96088- 6222 Dec, in multigravida Z34.80 [place] [address] [place] [id number] [place] [address] 62879- 0788 Dec, DANIELLA (generalized anxiety disorder) F41.1 and Dysthymic disorder F34.1 [place] [address] [place] [id number] [place] [address] 38629- 8862 Dec, [facility] [address] [place] [id number] [place] [address] 13984- 7101 Nov, [place] [address] [place] [id number] [place] [address] 04997- 3573 Nov, [place] [address] [place] [id number] [place] [address] 08392- 6937 Nov, Painful urination R30.9 ; Vaginal yeast infection B37.3 and Early stage of Z34.90 [facility] [address] [place] [id number] [place] [address] 52328- 3264 Nov, in multigravida Z34.80 [place] [address] [place] [id number] [place] [address] 26060- 8786 Nov, Dysfunction of right eustachian tube H69.81 and Bilateral impacted cerumen H61.23 [place] [address] [place] [id number] [place] [address] 34489- 5092 Nov, [facility] [address] [place] [id number] [place] [address] 80434- 1605 Nov, [facility] [address] [place] [id number] [place] [address] 79584- 7035 Nov, [facility] [address] [place] [id number] [place] [address] 19873 -6773 Nov, Missed period N92.6 [place] [address] [place] [id number] [place] [address] 64181- 9573 Sep, DANIELLA (generalized anxiety disorder) F41.1 and Dysthymic disorder F34.1 [facility] [address] [place] [id number] [place] [address] 34320 -5240 Aug, Acute nasopharyngitis J00 [place] [address] [place] [id number] [place] [address] 53520- 1134 Jul, Irregular periods/menstrual cycles N92.6 [place] [address] [place] [id number] [place] [address] 00724- 2200 Jul, Bilateral impacted cerumen H61.23 [place] [address] 29498- 1150 Jul, DANIELLA (generalized anxiety disorder) F41.1 and Dysthymic disorder F34.1 [place] [address] [place] [id number] [place] [address] 54000- 5931 Jun, [place] [address] 70987- 8429 Jun, Dysthymic disorder F34.1 [place] [address] 61695- 7497 Jun, Anemia, O90.81 ; Lower abdominal pain R10.30 ; Allergic contact dermatitis due to adhesives L23.1 and Other headache syndrome G44.89 [place] [address] 05690- 0129 Jun, 39 weeks gestation of Z3A.39 [place] [address] 28611- 2267 27 May, 2017 care in third trimester Z34.93 [facility] [place] [address] 85621 -9319 24 May, 2017 Acute seasonal allergic rhinitis, unspecified trigger J30.2 [place] [address] 64893- 6675 20 May, 2017 Normal in multigravida Z34.80 [facility] [address] 83936 -6811 17 May, 2017 Urinary frequency R35.0 and Pain of round ligament N94.9 [place] [address] 78966- 7372 13 May, 2017 35 weeks gestation of Z3A.[address] 97351- 9193 Apr, High risk sexual behavior Z72.51 and 33 weeks gestation of Z3A.[address] 34762- 0736 Apr, care in third trimester Z34.93 [facility] [place] [address] 46322 -4673 Apr, Bilateral impacted cerumen H61.[address] 59089- 5841 Apr, 30 weeks gestation of Z3A.30 and Encounter for immunization Z23 [address] 08603- 2646 Mar, 28 weeks gestation of Z3A.[address] 67547- 1310 Mar, [place] [address] 77638- 2689 Mar, [facility] [address] [place] [id number] [place] [address] 53512- 4083 Mar, [place] [address] [place] [id number] [place] [address] 15225- 8013 Mar, 26 weeks gestation of Z3A.26 [facility] [address] [place] [id number] [place] [address] 39987 -5884 Mar, Acute back pain M54.9 [place] [address] [place] [id number] [place] [address] 95064- 1561 Feb, 24 weeks gestation of Z3A.24 [facility] [address] [place] [id number] [place] [address] 57823 -0272 Feb, Lower abdominal pain R10.30 [facility] [place] [id number] [place] [address] 40889 -2837 Feb, Gastroenteritis and colitis, viral A08.4 [place] [address] [place] [id number] [place] [address] 43334- 1998 14 Feb, 2017 care in second trimester Z34.92 [place] [address] [place] [id number] [place] [address] 13652- 6254 07 Feb, 2017 [facility] [place] [id number] [place] [address] 35204 -2636 Feb, Abscess L02.91 [facility] [address] [place] [id number] [place] [address] 11514 -6110 Feb, Vaginal flavia B37.3 [place] [address] [place] [id number] [place] [address] 79508- 5260 January, 20 weeks gestation of Z3A.20 [place] [address] [place] [id number] [place] [address] 49324- 2892 January, [facility] [address] [place] [id number] [place] [address] 72092 -6958 January, Seasonal allergic rhinitis, unspecified allergic rhinitis trigger J30.2 [facility] [address] [place] [id number] [place] [address] 27417 -9420 January, Dermatitis L30.9 and Bug bites, initial encounter W57.XXXA [address] 96285- 7744 January, Sore throat J02.9 and Seasonal allergic rhinitis, unspecified allergic rhinitis trigger J30.2 [place] [address] 21268- 9590 January, 16 weeks gestation of Z3A.[address] 93358- 5900 Dec, care in first trimester Z34.[address] 16402- 3529 Nov, care in first trimester Z34.91 and Normal in multigravida Z34.80 [facility] [address] 04467 -0524 Oct, Nausea and vomiting during O21.9 [place] [address] 25991- 2288 Oct, [address] 45416- 6252 Oct, [place] [address] 58790- 4257 Oct, Encounter for test, result unknown Z32.[address] 17167- 9673 Sep, Irregular periods/menstrual cycles N92.6 ; Sore throat J02.9 ; Nausea R11.0 and Right ear impacted cerumen H61.21 [facility] [address] [place] [address] 87349 -3733 Jul, Vaginal discharge N89.8 ; Other specified bacterial agents as the cause of diseases classified elsewhere B96.89 and Acute vaginitis N76.0 [place] [address] [place] [id number] [place] [address] 15803- 8331 10 Jun, 2016 Depression, unspecified depression type F32.9 [place] [address] 63851- 9702 23 May, 2016 Vaginal candidiasis B37.3 [place] [address] 54595- 6797 20 May, 2016 Acute pharyngitis, unspecified etiology J02.9 [place] [address] 36595- 7241 19 May, 2016 Depression, unspecified depression type F32.9 [place] [address] 03829- 2087 12 May, 2016 Depression, unspecified depression type F32.9 [place] [address] [place] [id number] [place] [address] 02496- 4381 12 May, 2016 Dysthymic disorder F34.1 [facility] [address] [place] [id number] [place] [address] 58898 -7981 10 Apr, 2016 Acute suppurative otitis media of right ear without spontaneous rupture of tympanic membrane, recurrence not specified H66.001 [facility] [address] [place] [id number] [place] [address] 22173 -7870 Mar, Herpes zoster without complication B02.9 [facility] [address] [place] [id number] [place] [address] 43818 -1709 Dec, Allergic rhinitis J30.9 [facility] [address] [place] [id number] [place] [address] 60396 -2029 03 Dec, 2015 Lumbago M54.5 [facility] [address] [place] [id number] [place] [address] 05151 -2641 18 Oct, 2015 Dysuria R30.0 and Urinary tract infection N39.0 [facility] [address] [place] [address] 83272 -4016 Sep, Acute nasopharyngitis J00 and Strep pharyngitis J02.0 [facility] [address] [place] [id number] [place] [address] 38236- 4073 Jul, Upper respiratory tract infection, unspecified type J06.9 [place] [address] [place] [id number] [place] [address] 18252- 0155 Jun, Irritable bowel syndrome without diarrhea K58.9 [place] [address] 19375- 8140 Jun, [place] [address] 39521- 3276 May, [place] [address] 61230- 4131 May, [place] [address] 19328- 1409 May, Otitis externa of left ear 380.10 [place] [address] [place] [id number] [place] [address] 17613- 0721 May, Pain in joint, ankle and foot 719.47 [place] [address] [place] [id number] [place] [address] 11619- 8503 Apr, Pain in joint, ankle and foot 719.47 [place] [address] [place] [id number] [place] [address] 21580- 9357 Mar, Dysuria 788.1 and Incontinence in female 625.[address] 57344- 9397 Feb, Plantar fasciitis of right foot 728.71 ; Ankle weakness 719.67 and Ankle pain, chronic 719.47 [place] [address] 61054- 4915 Feb, [facility] [address] [id number] [place] [address]- 5093 Feb, Belching 787.3 and Chest wall pain 786.52 [facility] [address] [id number] [place] 4384 Dec, [facility] [address] [id number] [place] [address]- 4084 Dec, [facility] [address] [id number] [place] [address]- 1755 Nov, [facility] [id number] [place] [address], [place] [address]- 3513 Nov, [facility] [address] [id number] [place] [address]- 9889 Sep, [facility] [address] [facility] [id number] [place] [address]- 1710 Sep, [facility] [address] [facility] [id number] [place] [address]- 5854 Sep, [facility] [address] [id number] [place] [address]- 6101 Sep, [facility] [address] [facility] [id number] [place] [address]- 1771 Aug, [facility] [address] [id number] [place] [address]- 7328 Aug, [facility] [address] [id number] [place] [address]- 3261 Aug, [facility] [address] [id number] [place] 3397 Aug, [facility] [address] [facility] [id number] [place] [address]- 2010 Aug, [facility] [address] [id number] [place] [address]- 0514 Aug, [facility] [place] [facility] [address] [id number] [place] 8735 Aug, [facility] [place] [facility] [address] [id number] [place] 4843 Aug, [facility] [place] [facility] [address] [id number] [place] [address]- 8306 Aug, [facility] [place] [facility] [address] [id number] [place] [address]- 7759 Aug, [facility] [place] [facility] [address] [id number] [place]- 8668 Aug, [facility] [place] [facility] [address] [id number] [place] [address]- 9886 Aug, [facility] [place] [facility] [address] [id number] [place] [address]- 2853 Aug, [facility] [place] [facility] [address] [id number] [place] [address]- 2311 Aug, [facility] [place] [facility] [address] [id number] [place] [address]- 4288 Jul, [facility] [place] [facility] [address] [id number] [place] [address]- 1531 Jul, [facility] [place] [facility] [address] [id number] [place] [address]- 6246 Jul, [facility] [place] [facility] [address] [id number] [place] [address]- 2877 Jul, [facility] [place] [facility] [address] [id number] [place] [address]- 6555 Jul, [facility] [place] [facility] [address] [id number] [place] [address]- 6824 Jul, [facility] [place] [facility] [address] [id number] [place] 1268 Jul, [facility] [place] [facility] [address] [id number] [place] [address]- 8885 Jun, [facility] [place] [facility] [address] [id number] [place] [address]- 9870 Jun, [facility] [place] [facility] [address] [id number] [place] 7654 Jun, [facility] [place] [facility] [address] [id number] [place] [address]- 5995 Jun, [facility] [place] [facility] [address] [id number] [place] [address]- 3253 Jun, [facility] [place] [facility] [address] [id number] [place] [address]- 3051 Jun, [facility] [place] [facility] [address] [id number] [place] [address]- 5736 Jun, [facility] [place] [facility] [address] [id number] [place] [address]- 4850 Jun, [facility] [place] [facility] [address] [id number] [place] [address]- 9442 Jun, [facility] [place] [facility] [address] [id number] [place] [address]- 6688 Jun, [facility] [place] [facility] [address] [id number] [place] [address]- 6955 Jun, [facility] [place] [facility] [address] [id number], [place] [address]- 9059 Jun, [facility] [place] [facility] [address] [id number], [place] [address]- 7664 Jun, [facility] [place] [facility] [address] [id number] [place]- 9164 Jun, [facility] [place] [facility] [address] [id number][place] 4714 May, [facility] [place] [facility] [address] [id number] [place] [address]- 1244 24 May, 2014 [facility] [place] [facility] [address] [id number] [place] [address]- 5984 May, [facility] [place] [facility] [address] [id number] [place] [address]- 2901 May, [facility] [place] [facility] [address] [id number] [place] [address]- 0386 May, [facility] [place] [facility] [address] [id number] [place] [address]- 3955 Apr, [facility] [place] [facility] [address] [id number] [place] [address]- 0942 Apr, [facility] [place] [facility] [address] [id number] [place] [address]- 7034 Apr, [facility] [place] [facility] [address] [id number] [place] [address]- 8974 Apr, [facility] [place] [facility] [address] [id number] [place] [address]- 2417 Mar, [facility] [place] [facility] [address] [id number] [place] [address]- 3566 Mar, [facility] [place] [facility] [address] [id number] [place] [address]- 9941 Mar, [facility] [place] [facility] [address] [id number] [place] [address]- 8672 Mar, [facility] [place] [facility] [address] [id number] [place] [address]- 2172 Mar, [facility] [place] [facility] [address] [id number] [place] [address]- 6375 Mar, [facility] [place] [facility] [address] [id number] [place] [address]- 9736 Mar, [facility] [place] [facility] [address] [id number] [place] [address]- 5976 Mar, [facility] [place] [facility] [address] [id number] [place] 2145 Feb, [facility] [place] [facility] [address] [id number] [place] [address]- 4858 Feb, [facility] [place] [facility] [address] [id number] [place] [address]- 2223 Feb, [facility] [place] [facility] [address] [id number] [place] [address]- 2412 Feb, [facility] [place] [facility] [address] [id number] [place] [address] Feb, [facility] [place] [facility] [address] [id number] [place] [address] Feb, [facility] [place] [facility] [address] [id number] [place] [address] Feb, [facility] [place] [facility] [address] [id number] [place] [address] Feb, [facility] [place] [facility] [address] [id number] [place] [address] January, [facility] [place] [facility] [address] [id number] [place] [address] January, [facility] [place] [facility] [address] [id number] [place] [address] January, [facility] [place] [facility] [address] [id number] [place] [address] January, [facility] [place] [facility] [address] [id number] [place] [address] January, [facility] [place] [facility] [address] [id number] [place] [address] January, [facility] [place] [facility] [address] [id number] [place] [address] Dec, [facility] [place] [facility] [address] [id number] [place] [address] Dec, [facility] [place] [facility] [address] [id number] [place] [address] Dec, [facility] [address] [id number] [place] [address] Dec, [facility] [place] [facility] [address] [id number] [place] [address] Dec, [facility] [place] [facility] [address] [id number] [place] [address] Dec, [facility] [place] [facility] [address] [id number] [place] [address] Dec, [facility] [place] [facility] [address] [id number] [place] [address] Dec, [facility] [place] [facility] [address] [id number] [place] [address] Oct, [facility] [address] [id number] [place] [address] Oct, [facility] [place] [facility] [address] [id number] [place] [address] Aug, [facility] [place] [facility] [address] [id number] [place] [address] Aug, [facility] [place] [facility] [address] [id number] [place] [address] Jul, [facility] [place] [facility] [address] [id number] [place] [address] Jul, [facility] [place] [facility] [address] [id number] [place] [address] Mar, [facility] [place] [facility] [address] [id number] [place] [address] Mar, [facility] [place] [facility] [address] [id number] [place] [address] Mar, [facility] [place] [facility] [address] [id number] [place] [address] Feb, [facility] [place] [facility] [address] [id number] [place] [address] Feb, [facility] [address] [id number] [place] [address] Feb, [facility] [address] [id number] [place] [address] January, [facility] [address] [id number] [place] [address] January, [facility] [address] [id number] [place] [address] January, [facility] [address] [id number] [place] [address] January, [facility] [address] [id number] [place] [address] January, [facility] [address] [id number] [place] [address] January, [facility] [address] [id number] [place] [address] January, [facility] [address] [id number] [place] [address] Dec, [facility] [address] [id number] [place] [address] Dec, [facility] [address] [id number] [place] [address] Dec, [facility] [address] [id number] [place] [address] Dec, [facility] [place] [facility] [address] [id number] [place] [address] Nov, [facility] [place] [facility] [address] [id number] [place] [address] Nov, [facility] [address] [id number] [place] [address] Nov, [facility] [address] [id number] [place] [address] Oct, [facility] [address] [id number] [place] [address] Oct, [facility] [address] [id number] [place] [address] Oct, [facility] [address] [id number] [place] [address] Oct, [facility] [address] [id number] [place] [address] Oct, [facility] [address] [id number] [place] [address] Oct, [facility] [address] [facility] [id number] [place] [address] Sep, [facility] [address] [id number] [place] [address] Sep, [facility] [address] [facility] [id number] [place] [address] Sep, [facility] [address] [facility] [id number] [place] [address] Sep, [facility] [address] [facility] [id number] [place] [address] Sep, [facility] [address] [id number] [place] [address] Aug, [facility] [address] [id number] [place] [address] Aug, [facility] [address] [facility] [id number] [place] [address] Aug, [facility] [address] [facility] [id number] [place] [address] Aug, [facility] [place] [facility] [address] [id number] [place] [address] 06 Aug, 2012 [facility] [place] [facility] [address] [id number] [place] [address] Aug, [facility] [place] [facility] [address] [id number] [place] [address] Jul, [facility] [place] [facility] [address] [id number] [place] [address] Jul, [facility] [place] [facility] [address] [id number] [place] [address] Jul, [facility] [place] [facility] [address] [id number] [place] [address] Jul, [facility] [place] [facility] [address] [id number] [place] [address] Jul, [facility] [place] [facility] [address] [id number] [place] [address] Jul, [facility] [place] [facility] [address] [id number] [place] [address] 15 Jul, 2012 [facility] [place] [facility] [address] [id number] [place] [address] 15 Jul, 2012 [facility] [place] [facility] [address] [id number] [place] [address] 14 Jul, 2012 [facility] [place] [facility] [address] [id number] [place] [address] Jul, [facility] [place] [facility] [address] [id number] [place] [address]- [address]697 12 Jul, 2012 [facility] [place] [facility] [address] [id number] [place] [address] 09 Jul, 2012 [facility] [place] [facility] [address] [id number] [place] [address] 08 Jul, 2012 [facility] [place] [facility] [address] [id number] [place] [address] Jul, [facility] [place] [facility] [address] [id number] [place] [address] Jul, [facility] [place] [facility] [address] [id number] [place] [address] Jul, [facility] [place] [facility] [address] [facility] [id number] [place] [address]- [address] Jul, [facility] [place] [facility] [address] [id number] [place] [address] Jul, [facility] [place] [facility] [address] [id number] [place] [address] Jul, [facility] [place] [facility] [address] [id number] [place] [address] Jun, [facility] [place] [facility] [address] [id number] [place] [address] 39[address] Jun, [facility] [place] [facility] [address] [id number], [place] [address] May, [facility] [place] [facility] [address] [id number] [place] [address] Apr, [facility] [place] [facility] [address] [id number], [place] [address] Mar, [facility] [place] [facility] [address] [id number], [place] [address] Feb, [facility] [place] [facility] [address] [id number], [place] [address] Feb, [facility] [place] [facility] [address] [id number] [place] [address] Feb, [facility] [place] [facility] [address] [facility] [id number], [place] [address] January, [facility] [place] [facility] [address] [facility] [id number] [place] [address]46 January, [facility] [place] [facility] [address] [id number] [place] [address]- [address] 26 Dec, 2011 [facility] [address] [id number] [place] [address]- [address]32 25 Dec, 2011 [facility] [place] [facility] [address] [id number] [place] [address] 08 Nov, 2011 [facility] [place] [facility] [address] [id number] [place] [address] 12 Aug, 2011 [facility] [place] [facility] [address] [id number] [place] [address]- [address]18 16 Jul, 2011 [facility] [place] [facility] [address] [id number] [place] [address] 16 Jul, 2011 [facility] [place] [facility] [address] [id number] [place] [address]- [address]115 16 Jul, 2011 [facility] [place] [facility] [address] [id number] [place] [address]- 7251 12 Jun, 2011 [facility] [place] [facility] [address] [id number] [place] [address]- [address]379 12 Jun, 2011 [facility] [place] [facility] [address] [id number] [place] [address]- [address]151 14 May, 2011 [facility] [place] [facility] [address] [id number] [place] [address]- 3929 10 Apr, 2011 [facility] [place] [facility] [address] [id number] [place] [address]- [address] January, [facility] [place] [facility] [address] [id number] [place] [address]- 4[address] 13 Dec, 2010 [facility] [place] [facility] [address] [id number] [place] [address]- [address] 16 Nov, 2010 [facility] [place] [facility] [address] [id number] [place] [address]- 0388 10 Oct, 2010 [facility] [place] [facility] [address] [id number] [place] [address]- 56[address] Jun, [facility] [address] [id number], [place] [address] Jun, [facility] [address] [id number], [place] [address] Oct, [facility] [address] [id number], [place] [address] Aug, [facility] [id number], [place] [address] Jul, [facility] [address] [id number], [place] [address] 2546 Dec, IMMUNIZATIONS No Known Immunizations SOCIAL HISTORY Never Assessed REASON FOR VISIT PLAN OF CARE VITAL SIGNS MEDICATIONS Unknown [...]
--- OUTSIDE RECORDS SUMMARY | 2018-12-13 18:00 | XMS REPORT ---
Author Author ZAYRA GOMEZ Organization [facility] Address [address] [place] [address] Care Team Providers Care Platinumsmith Name Role Phone ZAYRA GOMEZ Unavailable PROBLEMS Type Condition ICD9-CM Code [id number] Code Onset Dates Condition Status SNOMED Code Problem Depression, unspecified depression type F32.9 Active 68893529 Problem Seasonal allergic rhinitis, unspecified allergic rhinitis trigger J30.2 Active 923173408 Problem Irregular periods/menstrual cycles N92.6 Active 46773080 Problem Seasonal allergies J30.2 Active 567984016 Problem Missed period N92.6 Active 88510454 Problem Other headache syndrome G44.89 Active 808116675 Problem Anemia, O90.81 Active 956856558 Problem DANIELLA (generalized anxiety disorder) F41.1 Active 44413736 Problem Dysthymic disorder F34.1 Active 23465725 ALLERGIES No Information ENCOUNTERS Encounter Location Date Diagnosis [place] [id number] 78657- [address]80 Apr, [facility] [address] [place] [id number] [place] [address] 90711 -1847 Mar, Pain of left calf M79.662 and Muscle spasm of left calf M62.831 [facility] [address] [id number] [place] [address] 66257- 2885 Mar, care in second trimester Z34.92 [place] [address] [place] [id number] [place] [address] 50434- 0237 Mar, Bilateral impacted cerumen H61.23 [facility] [address] [place] [place] [id number] [place] [address] 58207- 7494 Feb, [facility] [address] [id number] [place] [address] 47766 -4273 Feb, [facility] [address] [place] [id number] [place] [address] 65912- 7039 20 Feb, 2018 Normal in multigravida Z34.80 [facility] [address] [place] [id number] [place] [address] 90719- 6438 13 Feb, 2018 Painful urination R30.9 and Encounter for supervision of normal in second trimester Z34.92 [facility] [address] 20220 -5947 07 Feb, 2018 Seasonal allergies J30.2 [place] [address] 37897- 7498 Feb, [place] [address] 49654- 4460 Feb, [facility] [address] 83356 -8824 January, Seasonal allergic rhinitis, unspecified trigger J30.2 [facility] [address] [place] [id number] [place] [address] 88030 -7393 January, [facility] [address] [place] [id number] [place] [address] 38304 -3625 January, Viral gastroenteritis A08.4 [place] [address] [place] [id number] [place] [address] 49570- 1001 January, [place] [address] [place] [id number] [place] [address] 56103- 4403 January, care in first trimester Z34.91 [place] [address] [place] [id number] [place] [address] 68149- 5949 January, [facility] [address] [place] [id number] [place] [address] 19497 -1558 January, Left ankle pain, unspecified chronicity M25.572 [place] [address] 16145- 0736 January, [facility] [id number] [place] [address] 75386- 5478 January, Dysthymic disorder F34.1 and DANIELLA (generalized anxiety disorder) F41.1 [facility] [address] [place] [place] [id number] [place] [address] 46620 -1356 January, Impacted cerumen of both ears H61.23 [facility] [address] [place] [id number] [place] [address] 21071- 3251 Dec, [place] [address] [place] [id number] [place] [address] 55070- 5562 Dec, in multigravida Z34.80 [place] [address] [place] [id number] [place] [address] 23272- 4019 Dec, DANIELLA (generalized anxiety disorder) F41.1 and Dysthymic disorder F34.1 [place] [address] [place] [id number] [place] [address] 20445- 7088 Dec, [facility] [address] [place] [id number] [place] [address] 76612- 6180 Nov, [place] [address] [place] [id number] [place] [address] 73074- 4146 Nov, [place] [address] [place] [id number] [place] [address] 65566- 8469 Nov, Painful urination R30.9 ; Vaginal yeast infection B37.3 and Early stage of Z34.90 [facility] [address] [place] [id number] [place] [address] 26744- 1139 Nov, in multigravida Z34.80 [place] [address] [place] [id number] [place] [address] 83156- 8841 Nov, Dysfunction of right eustachian tube H69.81 and Bilateral impacted cerumen H61.23 [place] [address] [place] [id number] [place] [address] 27505- 4049 Nov, [facility] [address] [place] [id number] [place] [address] 94932- 8411 Nov, [facility] [address] [place] [id number] [place] [address] 76413- 0710 Nov, [facility] [address] [place] [id number] [place] [address] 77209 -2583 Nov, Missed period N92.6 [place] [address] [place] [id number] [place] [address] 09956- 9284 Sep, DANIELLA (generalized anxiety disorder) F41.1 and Dysthymic disorder F34.1 [facility] [address] [place] [id number] [place] [address] 18797 -4736 Aug, Acute nasopharyngitis J00 [place] [address] [place] [id number] [place] [address] 11152- 0105 Jul, Irregular periods/menstrual cycles N92.6 [place] [address] [place] [id number] [place] [address] 94667- 2697 Jul, Bilateral impacted cerumen H61.23 [place] [address] 87381- 9268 Jul, DANIELLA (generalized anxiety disorder) F41.1 and Dysthymic disorder F34.1 [place] [address] [place] [id number] [place] [address] 43192- 7706 Jun, [place] [address] 52357- 5236 Jun, Dysthymic disorder F34.1 [place] [address] 56079- 1675 Jun, Anemia, O90.81 ; Lower abdominal pain R10.30 ; Allergic contact dermatitis due to adhesives L23.1 and Other headache syndrome G44.89 [place] [address] 37649- 8236 Jun, 39 weeks gestation of Z3A.39 [place] [address] 16826- 4874 27 May, 2017 care in third trimester Z34.93 [facility] [place] [address] 66340 -6544 24 May, 2017 Acute seasonal allergic rhinitis, unspecified trigger J30.2 [place] [address] 52340- 0064 20 May, 2017 Normal in multigravida Z34.80 [facility] [address] 35637 -9598 17 May, 2017 Urinary frequency R35.0 and Pain of round ligament N94.9 [place] [address] 26291- 1020 13 May, 2017 35 weeks gestation of Z3A.[address] 53229- 8285 Apr, High risk sexual behavior Z72.51 and 33 weeks gestation of Z3A.[address] 25042- 5726 Apr, care in third trimester Z34.[address] [facility] [place] [address] 08166 -0033 Apr, Bilateral impacted cerumen H61.[address] 62167- 2202 Apr, 30 weeks gestation of Z3A.30 and Encounter for immunization Z23 [address] 66613- 6003 Mar, 28 weeks gestation of Z3A.[address] 10352- 0316 Mar, [place] [address] 13095- 0757 Mar, [facility] [address] [place] [id number] [place] [address] 98047- 1802 Mar, [place] [address] [place] [id number] [place] [address] 21427- 4438 Mar, 26 weeks gestation of Z3A.26 [facility] [address] [place] [id number] [place] [address] 07332 -9440 Mar, Acute back pain M54.9 [place] [address] [place] [id number] [place] [address] 07924- 6483 Feb, 24 weeks gestation of Z3A.24 [facility] [address] [place] [id number] [place] [address] 29234 -3577 Feb, Lower abdominal pain R10.30 [facility] [place] [id number] [place] [address] 80407 -6836 Feb, Gastroenteritis and colitis, viral A08.4 [place] [address] [place] [id number] [place] [address] 79654- 1999 14 Feb, 2017 care in second trimester Z34.92 [place] [address] [place] [id number] [place] [address] 92886- 9010 07 Feb, 2017 [facility] [place] [id number] [place] [address] 83409 -8108 Feb, Abscess L02.91 [facility] [address] [place] [id number] [place] [address] 17520 -9106 Feb, Vaginal flavia B37.3 [place] [address] [place] [id number] [place] [address] 71897- 6724 January, 20 weeks gestation of Z3A.20 [place] [address] [place] [id number] [place] [address] 18219- 4129 January, [facility] [address] [place] [id number] [place] [address] 24666 -4938 January, Seasonal allergic rhinitis, unspecified allergic rhinitis trigger J30.2 [facility] [address] [place] [id number] [place] [address] 16983 -6971 January, Dermatitis L30.9 and Bug bites, initial encounter W57.XXXA [address] 74270- 6781 January, Sore throat J02.9 and Seasonal allergic rhinitis, unspecified allergic rhinitis trigger J30.2 [place] [address] 58408- 9444 January, 16 weeks gestation of Z3A.[address] 93981- 6077 Dec, care in first trimester Z34.[address] 07904- 9387 Nov, care in first trimester Z34.91 and Normal in multigravida Z34.80 [facility] [address] 63362 -6732 Oct, Nausea and vomiting during O21.9 [place] [address] 33620- 6890 Oct, [address] 11523- 0053 Oct, [place] [address] 02875- 9492 Oct, Encounter for test, result unknown Z32.[address] 61276- 9497 Sep, Irregular periods/menstrual cycles N92.6 ; Sore throat J02.9 ; Nausea R11.0 and Right ear impacted cerumen H61.21 [facility] [address] [place] [address] 72933 -1104 Jul, Vaginal discharge N89.8 ; Other specified bacterial agents as the cause of diseases classified elsewhere B96.89 and Acute vaginitis N76.0 [place] [address] [place] [id number] [place] [address] 24795- 5641 10 Jun, 2016 Depression, unspecified depression type F32.9 [place] [address] 79506- 2590 23 May, 2016 Vaginal candidiasis B37.3 [place] [address] 95031- 8579 20 May, 2016 Acute pharyngitis, unspecified etiology J02.9 [place] [address] 67848- 6265 19 May, 2016 Depression, unspecified depression type F32.9 [place] [address] 83683- 3792 12 May, 2016 Depression, unspecified depression type F32.9 [place] [address] [place] [id number] [place] [address] 53942- 1249 12 May, 2016 Dysthymic disorder F34.1 [facility] [address] [place] [id number] [place] [address] 26933 -8214 10 Apr, 2016 Acute suppurative otitis media of right ear without spontaneous rupture of tympanic membrane, recurrence not specified H66.001 [facility] [address] [place] [id number] [place] [address] 45915 -0209 Mar, Herpes zoster without complication B02.9 [facility] [address] [place] [id number] [place] [address] 22653 -0726 Dec, Allergic rhinitis J30.9 [facility] [address] [place] [id number] [place] [address] 93557 -9221 03 Dec, 2015 Lumbago M54.5 [facility] [address] [place] [id number] [place] [address] 94037 -8109 18 Oct, 2015 Dysuria R30.0 and Urinary tract infection N39.0 [facility] [address] [place] [address] 06288 -7936 Sep, Acute nasopharyngitis J00 and Strep pharyngitis J02.0 [facility] [address] [place] [id number] [place] [address] 28075- 0637 Jul, Upper respiratory tract infection, unspecified type J06.9 [place] [address] [place] [id number] [place] [address] 21843- 8544 Jun, Irritable bowel syndrome without diarrhea K58.9 [place] [address] 98348- 4246 Jun, [place] [address] 19757- 8291 May, [place] [address] 34337- 2382 May, [place] [address] 44920- 4345 May, Otitis externa of left ear 380.10 [place] [address] [place] [id number] [place] [address] 44231- 8698 May, Pain in joint, ankle and foot 719.47 [place] [address] [place] [id number] [place] [address] 10661- 1666 Apr, Pain in joint, ankle and foot 719.47 [place] [address] [place] [id number] [place] [address] 71780- 7837 Mar, Dysuria 788.1 and Incontinence in female 625.[address] 00578- 9838 Feb, Plantar fasciitis of right foot 728.71 ; Ankle weakness 719.67 and Ankle pain, chronic 719.47 [place] [address] 14569- 3047 Feb, [facility] [address] [id number] [place] [address]- 9160 Feb, Belching 787.3 and Chest wall pain 786.52 [facility] [address] [id number] [place]- 5000 Dec, [facility] [address] [id number] [place] [address]- 8275 Dec, [facility] [address] [id number] [place] [address]- 0845 Nov, [facility] [address] [id number] [place] [address], [place] [address]- 7738 Nov, [facility] [address] [id number] [place] [address]- 8447 Sep, [facility] [address] [facility] [id number] [place] [address]- 9529 Sep, [facility] [address] [facility] [id number] [place] [address]- 9241 Sep, [facility] [address] [id number] [place] [address]- 6015 Sep, [facility] [address] [facility] [id number] [place] [address]- 7473 Aug, [facility] [address] [id number] [place] [address]- 8034 Aug, [facility] [address] [id number] [place] [address]- 8323 Aug, [facility] [address] [id number] [place]- 2005 Aug, [facility] [address] [facility] [id number] [place] [address]- 3544 Aug, [facility] [address] [id number] [place] [address]- 7648 Aug, [facility] [place] [facility] [address] [id number] [place]- 5922 Aug, [facility] [place] [facility] [address] [id number] [place] 0289 Aug, [facility] [place] [facility] [address] [id number] [place] [address]- 8544 Aug, [facility] [place] [facility] [address] [id number] [place] [address]- 1044 Aug, [facility] [place] [facility] [address] [id number] [place] 3602 Aug, [facility] [place] [facility] [address] [id number] [place] [address]- 3139 Aug, [facility] [place] [facility] [address] [id number] [place] [address]- 9463 Aug, [facility] [place] [facility] [address] [id number] [place] [address]- 3743 Aug, [facility] [place] [facility] [address] [id number] [place] [address]- 2078 Jul, [facility] [place] [facility] [address] [id number] [place] [address]- 0943 Jul, [facility] [place] [facility] [address] [id number] [place] [address]- 3483 Jul, [facility] [place] [facility] [address] [id number] [place] [address]- 2618 Jul, [facility] [place] [facility] [address] [id number] [place] [address]- 9654 Jul, [facility] [place] [facility] [address] [id number] [place] [address]- 7705 Jul, [facility] [place] [facility] [address] [id number] [place] 4816 Jul, [facility] [place] [facility] [address] [id number] [place] [address]- 6764 Jun, [facility] [place] [facility] [address] [id number] [place] [address]- 0469 Jun, [facility] [place] [facility] [address] [id number] [place] 4974 Jun, [facility] [place] [facility] [address] [id number] [place] [address]- 7490 Jun, [facility] [place] [facility] [address] [id number] [place] [address]- 9307 Jun, [facility] [place] [facility] [address] [id number] [place] [address]- 2117 Jun, [facility] [place] [facility] [address] [id number] [place] [address]- 9295 Jun, [facility] [place] [facility] [address] [id number] [place] [address]- 8751 Jun, [facility] [place] [facility] [address] [id number] [place] [address]- 0931 Jun, [facility] [place] [facility] [address] [id number] [place] [address]- 8283 Jun, [facility] [place] [facility] [address] [id number] [place] [address]- 8299 Jun, [facility] [place] [facility] [address] [id number], [place] [address]- 2326 Jun, [facility] [place] [facility] [address] [id number], [place] [address]- 1967 Jun, [facility] [place] [facility] [address] [id number] [place] 0750 Jun, [facility] [place] [facility] [address] [id number] 7836 May, [facility] [place] [facility] [address] [id number] [place] [address]- 3005 24 May, 2014 [facility] [place] [facility] [address] [id number] [place] [address]- 1516 May, [facility] [place] [facility] [address] [id number] [place] [address]- 9202 May, [facility] [place] [facility] [address] [id number] [place] [address]- 7626 May, [facility] [place] [facility] [address] [id number] [place] [address]- 4738 Apr, [facility] [place] [facility] [address] [id number] [place] [address]- 4561 Apr, [facility] [place] [facility] [address] [id number] [place] [address]- 4428 Apr, [facility] [place] [facility] [address] [id number] [place] [address]- 6436 Apr, [facility] [place] [facility] [address] [id number] [place] [address]- 7963 Mar, [facility] [place] [facility] [address] [id number] [place] [address]- 2560 Mar, [facility] [place] [facility] [address] [id number] [place] [address]- 4879 Mar, [facility] [place] [facility] [address] [id number] [place] [address]- 5190 Mar, [facility] [place] [facility] [address] [id number] [place] [address]- 1694 Mar, [facility] [place] [facility] [address] [id number] [place] [address]- 2795 Mar, [facility] [place] [facility] [address] [id number] [place] [address]- 5595 Mar, [facility] [place] [facility] [address] [id number] [place] [address]- 4716 Mar, [facility] [place] [facility] [address] [id number] [place]- 2114 Feb, [facility] [place] [facility] [address] [id number] [place] [address]- 6142 Feb, [facility] [place] [facility] [address] [id number] [place] [address] Feb, [facility] [place] [facility] [address] [id number] [place] [address] Feb, [facility] [place] [facility] [address] [id number] [place] [address] Feb, [facility] [place] [facility] [address] [id number] [place] [address] Feb, [facility] [place] [facility] [address] [id number] [place] [address] Feb, [facility] [place] [facility] [address] [id number] [place] [address] Feb, [facility] [place] [facility] [address] [id number] [place] [address] January, [facility] [place] [facility] [address] [id number] [place] [address] January, [facility] [place] [facility] [address] [id number] [place] [address] January, [facility] [place] [facility] [address] [id number] [place] [address] January, [facility] [place] [facility] [address] [id number] [place] [address] January, [facility] [place] [facility] [address] [id number] [place] [address] January, [facility] [place] [facility] [address] [id number] [place] [address] Dec, [facility] [place] [facility] [address] [id number] [place] [address] Dec, [facility] [place] [facility] [address] [id number] [place] [address] Dec, [facility] [address] [id number] [place] [address] Dec, [facility] [place] [facility] [address] [id number] [place] [address] Dec, [facility] [place] [facility] [address] [id number] [place] [address] Dec, [facility] [place] [facility] [address] [id number] [place] [address] Dec, [facility] [place] [facility] [address] [id number] [place] [address] Dec, [facility] [place] [facility] [address] [id number] [place] [address] Oct, [facility] [address] [id number] [place] [address] Oct, [facility] [place] [facility] [address] [id number] [place] [address] Aug, [facility] [place] [facility] [address] [id number] [place] [address] Aug, [facility] [place] [facility] [address] [id number] [place] [address] Jul, [facility] [place] [facility] [address] [id number] [place] [address] Jul, [facility] [place] [facility] [address] [id number] [place] [address] Mar, [facility] [place] [facility] [address] [id number] [place] [address] Mar, [facility] [place] [facility] [address] [id number] [place] [address] Mar, [facility] [place] [facility] [address] [id number] [place] [address] Feb, [facility] [place] [facility] [address] [id number] [place] [address] Feb, [facility] [address] [id number] [place] [address] Feb, [facility] [address] [id number] [place] [address] January, [facility] [address] [id number] [place] [address] January, [facility] [address] [id number] [place] [address] January, [facility] [address] [id number] [place] [address] January, [facility] [address] [id number] [place] [address] January, [facility] [facility] [address] [id number] [place] [address] January, [facility] [address] [id number] [place] [address] January, [facility] [address] [id number] [place] [address] Dec, [facility] [address] [id number] [place] [address] Dec, [facility] [address] [id number] [place] [address] Dec, [facility] [address] [id number] [place] [address] Dec, [facility] [place] [facility] [address] [id number] [place] [address] Nov, [facility] [place] [facility] [address] [id number] [place] [address] Nov, [facility] [address] [id number] [place] [address] Nov, [facility] [address] [id number] [place] [address] Oct, [facility] [address] [id number] [place] [address] Oct, [facility] [address] [id number] [place] [address] Oct, [facility] [address] [id number] [place] [address] Oct, [facility] [address] [id number] [place] [address] Oct, [facility] [address] [id number] [place] [address] Oct, [facility] [address] [facility] [id number] [place] [address] Sep, [facility] [address] [id number] [place] [address] Sep, [facility] [address] [facility] [id number] [place] [address] Sep, [facility] [address] [facility] [id number] [place] [address] Sep, [facility] [address] [facility] [id number] [place] [address] Sep, [facility] [address] [id number] [place] [address] Aug, [facility] [address] [id number] [place] [address] Aug, [facility] [address] [facility] [id number] [place] [address] Aug, [facility] [address] [facility] [id number] [place] [address] Aug, [facility] [place] [facility] [address] [id number] [place] [address] 06 Aug, 2012 [facility] [place] [facility] [address] [id number] [place] [address] Aug, [facility] [place] [facility] [address] [id number] [place] [address] Jul, [facility] [place] [facility] [address] [id number] [place] [address] Jul, [facility] [place] [facility] [address] [id number] [place] [address] Jul, [facility] [place] [facility] [address] [id number] [place] [address] Jul, [facility] [place] [facility] [address] [id number] [place] [address] Jul, [facility] [place] [facility] [address] [id number] [place] [address] Jul, [facility] [place] [facility] [address] [id number] [place] [address] 15 Jul, 2012 [facility] [place] [facility] [address] [id number] [place] [address]- [address] 15 Jul, 2012 [facility] [place] [facility] [address] [id number] [place] [address] 14 Jul, 2012 [facility] [place] [facility] [address] [id number] [place] [address] Jul, [facility] [place] [facility] [address] [id number] [place] [address] 12 Jul, 2012 [facility] [place] [facility] [address] [id number] [place] [address]- [address] 09 Jul, 2012 [facility] [place] [facility] [address] [id number] [place] [address] 08 Jul, 2012 [facility] [place] [facility] [address] [id number] [place] [address] Jul, [facility] [place] [facility] [address] [id number] [place] [address] Jul, [facility] [place] [facility] [address] [id number] [place] [address] Jul, [facility] [place] [facility] [address] [facility] [id number] [place] [address] Jul, [facility] [place] [facility] [address] [id number] [place] [address] Jul, [facility] [place] [facility] [address] [id number] [place] [address] Jul, [facility] [place] [facility] [address] [id number] [place] [address] Jun, [facility] [place] [facility] [address] [id number] [place] [address] Jun, [facility] [place] [facility] [address] [id number], [place] [address] May, [facility] [place] [facility] [address] [id number] [place] [address] Apr, [facility] [place] [facility] [address] [id number], [place] [address] Mar, [facility] [place] [facility] [address] [id number], [place] [address] Feb, [facility] [place] [facility] [address] [id number], [place] [address] Feb, [facility] [place] [facility] [address] [id number] [place] [address] Feb, [facility] [place] [facility] [address] [facility] [id number], [place] [address] January, [facility] [place] [facility] [address] [facility] [id number] [place] [address]- [address] January, [facility] [place] [facility] [address] [id number] [place] [address]- 74[address] 26 Dec, 2011 [facility] [address] [id number] [place] [address] 25 Dec, 2011 [facility] [place] [facility] [address] [id number] [place] [address] 08 Nov, 2011 [facility] [place] [facility] [address] [id number] [place] [address] 12 Aug, 2011 [facility] [place] [facility] [address] [id number] [place] [address]- [address] 16 Jul, 2011 [facility] [place] [facility] [address] [id number] [place] [address] 16 Jul, 2011 [facility] [place] [facility] [address] [id number] [place] [address]- 1780 16 Jul, 2011 [facility] [place] [facility] [address] [id number] [place] [address]- 1837 12 Jun, 2011 [facility] [place] [facility] [address] [id number] [place] [address]- 3743 12 Jun, 2011 [facility] [place] [facility] [address] [id number] [place] [address]- [address]90 14 May, 2011 [facility] [place] [facility] [address] [id number] [place] [address]- 5023 10 Apr, 2011 [facility] [place] [facility] [address] [id number] [place] [address]- [address] January, [facility] [place] [facility] [address] [id number] [place] [address]- 68[address] 13 Dec, 2010 [facility] [place] [facility] [address] [id number] [place] [address]- [address] 16 Nov, 2010 [facility] [place] [facility] [address] [id number] [place] [address]- 4201 10 Oct, 2010 [facility] [place] [facility] [address] [id number] [place] [address]- [address] Jun, [facility] [address] [id number], [place] [address] Jun, [facility] [address] [id number], [place] [address] Oct, [facility] [address] [id number], [place] [address] Aug, [facility] [id number], [place] [address] Jul, [facility] [address] [id number], [place] [address] 25[address] Dec, IMMUNIZATIONS No Known Immunizations SOCIAL [...]
--- OUTSIDE RECORDS SUMMARY | 2018-12-13 18:00 | XMS REPORT ---
Author Author ANNE COLLADO Organization [facility] Address [address] [place] [address] Care Team Providers Care Sfdc Architect Name Role Phone ANNE COLLADO Unavailable PROBLEMS Type Condition ICD9-CM Code CIL07-FS Code Onset Dates Condition Status SNOMED Code Problem Depression, unspecified depression type F32.9 Active 70140948 Problem Seasonal allergic rhinitis, unspecified allergic rhinitis trigger J30.2 Active 485245040 Problem Irregular periods/menstrual cycles N92.6 Active 77093751 Problem Seasonal allergies J30.2 Active 450739853 Problem Missed period N92.6 Active 56893541 Problem Other headache syndrome G44.89 Active 444829827 Problem Anemia, O90.81 Active 614785029 Problem DANIELLA (generalized anxiety disorder) F41.1 Active 86831401 Problem Dysthymic disorder F34.1 Active 56169231 ALLERGIES Substance Reaction Event Type Date Status Cefaclor Unknown Drug Allergy Nov, Active ENCOUNTERS Encounter Location Date Diagnosis [facility] [id number] [place] [address] 51284- 0852 Apr, [facility] [id number] [place] [address] 88560 -9003 Mar, Pain of left calf M79.662 and Muscle spasm of left calf M62.831 [facility] [id number] [place] [address] 63692- 0867 Mar, care in second trimester Z34.92 [facility] [address] 62065- 5079 Mar, Bilateral impacted cerumen H61.23 [facility] [id number] [place] [address] 24345- 0260 Feb, [facility] [address] [place] [address] 23 Feb, 2018 [facility] [id number] [place] [address] 72502- 2476 20 Feb, 2018 Normal in multigravida Z34.80 [facility] [id number] [place] [address] 84103- 4512 13 Feb, 2018 Painful urination R30.9 and Encounter for supervision of normal in second trimester Z34.92 [facility] [id number] [place] [address] 99821 -7049 07 Feb, 2018 Seasonal allergies J30.2 [facility] [address] 62977- 2599 Feb, [facility] [id number] [place] [address] 00811- 6047 Feb, [facility] [id number] [place] [address] 41801 -4823 January, Seasonal allergic rhinitis, unspecified trigger J30.2 [facility] [id number] [place] [address] 96977 -0374 January, [facility] [id number] [place] [address] 16526 -8779 January, Viral gastroenteritis A08.4 [facility] [id number] [place] [address] 65156- 1996 January, [facility] [id number] [place] [address] 28008- 9602 January, care in first trimester Z34.91 [facility] [address] 39573- 4380 January, [facility] [id number] [place] [address] 74162 -2899 January, Left ankle pain, unspecified chronicity M25.572 [facility] [address] [place] [address]- 0438 January, [facility] [address] 81749- 2686 January, Dysthymic disorder F34.1 and DANIELLA (generalized anxiety disorder) F41.1 [facility] [id number] [place] [address] 90795 -9545 January, Impacted cerumen of both ears H61.23 [facility] [address] 33656- 6360 Dec, [facility] [address] 25345- 9806 Dec, in multigravida Z34.80 [place] [address] 06601- 0028 Dec, DANIELLA (generalized anxiety disorder) F41.1 and Dysthymic disorder F34.1 [facility] [address] 60984- 6882 Dec, [facility] [address] 71214- 5906 Nov, [facility] [id number] [place] [address] 44918- 1046 Nov, [place] [id number] [place] [address] 18666- 2167 Nov, Painful urination R30.9 ; Vaginal yeast infection B37.3 and Early stage of Z34.90 [facility] [id number] [place] [address] 57908- 9195 Nov, in multigravida Z34.80 [facility] [address] 83491- 3333 Nov, Dysfunction of right eustachian tube H69.81 and Bilateral impacted cerumen H61.23 [facility] [address] [place] [address]- 0385 Nov, [facility] [address] 66332- 7302 Nov, [facility] [address] 72517- 4213 Nov, [facility] [address] 93149 -6493 Nov, Missed period N92.6 [facility] [address] 51973- 0674 Sep, DANIELLA (generalized anxiety disorder) F41.1 and Dysthymic disorder F34.1 [facility] [address] 80336 -0005 Aug, Acute nasopharyngitis J00 [place] [address] 98237- 2656 Jul, Irregular periods/menstrual cycles N92.6 [place] [address] 36432- 5690 Jul, Bilateral impacted cerumen H61.23 [place] [address] 10601- 9268 Jul, DANIELLA (generalized anxiety disorder) F41.1 and Dysthymic disorder F34.1 [place] [address] 60685- 7185 Jun, [place] [address] 30963- 3882 Jun, Dysthymic disorder F34.1 [place] [address] 74575- 9942 Jun, Anemia, O90.81 ; Lower abdominal pain R10.30 ; Allergic contact dermatitis due to adhesives L23.1 and Other headache syndrome G44.89 [place] [address] 39360- 1244 Jun, 39 weeks gestation of Z3A.39 [place] [address] 09569- 7311 27 May, 2017 care in third trimester Z34.93 [facility] [address] 89546 -0779 24 May, 2017 Acute seasonal allergic rhinitis, unspecified trigger J30.2 [place] [address] 76898- 8328 20 May, 2017 Normal in multigravida Z34.80 [facility] [address] 64415 -6541 17 May, 2017 Urinary frequency R35.0 and Pain of round ligament N94.9 [place] [address] 62458- 3871 13 May, 2017 35 weeks gestation of Z3A.35 [place] [address] 15378- 3249 Apr, High risk sexual behavior Z72.51 and 33 weeks gestation of Z3A.33 [place] [address] 61061- 1656 Apr, care in third trimester Z34.93 [facility] [place] [address] 15131 -8479 Apr, Bilateral impacted cerumen H61.23 [place] [address] 47217- 4852 Apr, 30 weeks gestation of Z3A.30 and Encounter for immunization Z23 [place] [address] 57060- 4025 Mar, 28 weeks gestation of Z3A.28 [place] [address] 22292- 9197 Mar, [place] [address] [address] 4[address] 13 Mar, 2017 [facility] [id number] [place] [address] 36819- 8622 Mar, [facility] [id number] [place] [address] 24778- 8376 Mar, 26 weeks gestation of Z3A.26 [facility] [id number] [place] [address] 64571 -9457 Mar, Acute back pain M54.9 [facility] [id number] [place] [address] 52578- 0922 28 Feb, 2017 24 weeks gestation of Z3A.24 [facility] [id number] [place] [address] 60695 -2024 27 Feb, 2017 Lower abdominal pain R10.30 [facility] [address] [place] [id number] [place] [address] 39701 -6066 Feb, Gastroenteritis and colitis, viral A08.4 [place] [id number] [place] [address] 21493- 9437 14 Feb, 2017 care in second trimester Z34.92 [place] [id number] [place] [address] 56166- 9571 07 Feb, 2017 [facility] [id number] [place] [address] 36105 -5010 Feb, Abscess L02.91 [facility] [id number] [place] [address] 31856 -0799 Feb, Vaginal flavia B37.3 [place] [id number] [place] [address] 74819- 8426 January, 20 weeks gestation of Z3A.20 [facility] [id number] [place] [address] 86412- 3385 January, [facility] [address] 06114 -5194 January, Seasonal allergic rhinitis, unspecified allergic rhinitis trigger J30.2 [facility] [address] 58627 -3460 January, Dermatitis L30.9 and Bug bites, initial encounter W57.XXXA [address] 19560- 2072 January, Sore throat J02.9 and Seasonal allergic rhinitis, unspecified allergic rhinitis trigger J30.2 [place] [address] 53191- 3260 January, 16 weeks gestation of Z3A.16 [place] [address] 25501- 0656 Dec, care in first trimester Z34.[address] 56020- 3968 Nov, care in first trimester Z34.91 and Normal in multigravida Z34.80 [facility] [address] 60332 -2619 Oct, Nausea and vomiting during O21.9 [place] [id number] [place] [address] 69229- 0264 Oct, [place] [address] 24676- 5678 Oct, [address] 43695- 9311 Oct, Encounter for test, result unknown Z32.[address] 54395- 5611 Sep, Irregular periods/menstrual cycles N92.6 ; Sore throat J02.9 ; Nausea R11.0 and Right ear impacted cerumen H61.21 [facility] [id number] [place] [address] 32277 -4910 05 Jul, 2016 Vaginal discharge N89.8 ; Other specified bacterial agents as the cause of diseases classified elsewhere B96.89 and Acute vaginitis N76.0 [place] [id number] [place] [address] 24935- 2874 10 Jun, 2016 Depression, unspecified depression type F32.9 [place] [address] 85834- 2769 23 May, 2016 Vaginal candidiasis B37.3 [place] [address] 13446- 7914 20 May, 2016 Acute pharyngitis, unspecified etiology J02.9 [place] [id number] [place] [address] 53433- 0556 19 May, 2016 Depression, unspecified depression type F32.9 [place] [id number] [place] [address] 93168- 5609 12 May, 2016 Depression, unspecified depression type F32.9 [place] [id number] [place] [address] 06066- 3874 12 May, 2016 Dysthymic disorder F34.1 [facility] [place] [id number] [place] [address] 07511 -1632 10 Apr, 2016 Acute suppurative otitis media of right ear without spontaneous rupture of tympanic membrane, recurrence not specified H66.001 [facility] [id number] [place] [address] 21608 -8699 Mar, Herpes zoster without complication B02.9 [facility] [address] [place] [id number] [place] [address] 25821 -8303 18 Dec, 2015 Allergic rhinitis J30.9 [facility] [place] [id number] [place] [address] 52759 -6057 03 Dec, 2015 Lumbago M54.5 [facility] [id number] [place] [address] 35666 -4530 Oct, Dysuria R30.0 and Urinary tract infection N39.0 [facility] [id number] [place] [address] 23065 -1455 Sep, Acute nasopharyngitis J00 and Strep pharyngitis J02.0 [facility] [id number] [place] [address] 70835- 1498 Jul, Upper respiratory tract infection, unspecified type J06.9 [facility] [id number] [place] [address] 99003- 0046 Jun, Irritable bowel syndrome without diarrhea K58.9 [place] [address] 02330- 0242 Jun, [place] [address] 64956- 0026 May, [place] [address] 38035- 0367 May, [place] [id number] [place] [address] 31799- 2544 May, Otitis externa of left ear 380.10 [place] [id number] [place] [address] 47817- 2462 May, Pain in joint, ankle and foot 719.47 [place] [id number] [place] [address] 45099- 0853 Apr, Pain in joint, ankle and foot 719.47 [place] [id number] [place] [address] 96738- 8608 Mar, Dysuria 788.1 and Incontinence in female 625.6 [place] [id number] [place] [address] 87474- 2428 30 Feb, 2015 Plantar fasciitis of right foot 728.71 ; Ankle weakness 719.67 and Ankle pain, chronic 719.47 [place] [address] [place] [address] [place] [address]- 9261 Feb, [facility] [address] [id number] [place] [address]- 5618 Feb, Belching 787.3 and Chest wall pain 786.52 [facility] [address] [id number] [place] [address]- 5519 Dec, [facility] [address] [id number] [place] [address]- 6015 Dec, [facility] [address] [id number] [place] [address]- 5226 Nov, [facility] [address] [id number] [place] [address]- 0636 Nov, [facility] [address] [facility] [id number] [place] [address]- 8338 Sep, [facility] [address] [facility] [id number] [place] [address]- 3142 Sep, [facility] [address] [facility] [id number] [place] [address]- 6447 Sep, [facility] [address] [facility] [id number], [place] [address]- 0559 Sep, [facility] [address] [facility] [id number], [place] [address]- 9901 Aug, [facility] [address] [id number], [place] [address]- 0147 Aug, [facility] [address] [id number] [place] [address]- 6751 Aug, [facility] [address] [id number] [place] 5253 Aug, [facility] [address] [facility] [id number], [place] [address]- 1143 Aug, [facility] [address] [facility] [id number], [place] [address]- 3852 Aug, [facility] [place] [facility] [address] [id number] [place] [address]- 2166 Aug, [facility] [place] [facility] [address] [id number] [place] 0672 Aug, [facility] [place] [facility] [address] [id number] [place] [address]- 9763 Aug, [facility] [place] [facility] [address] [id number] [place] [address]- 0731 Aug, [facility] [place] [facility] [address] [id number] [place] [address]- 8087 Aug, [facility] [place] [facility] [address] [id number] [place] [address]- 4428 Aug, [facility] [place] [facility] [address] [id number] [place] [address]- 7025 Aug, [facility] [place] [facility] [address] [id number] [place] [address]- 2188 Aug, [facility] [place] [facility] [address] [id number] [place] [address]- 7704 Jul, [facility] [place] [facility] [address] [id number] [place] [address]- 1016 Jul, [facility] [place] [facility] [address] [id number], [place] [address]- 3291 Jul, [facility] [place] [facility] [address] [id number], [place] [address]- 4897 Jul, [facility] [place] [facility] [address] [id number], [place] [address]- 6041 Jul, [facility] [place] [facility] [address] [id number], [place] [address]- 3218 Jul, [facility] [place] [facility] [address] [id number] [place] [address]- 0389 Jul, [facility] [place] [facility] [address] [id number] [place] [address]- 9780 Jun, 2013 [facility] [place] [facility] [address] [id number] [place] [address]- 0130 Jun, [facility] [place] [facility] [address] [id number] [place] [address]- 4323 Jun, [facility] [place] [facility] [address] [id number] [place] [address]- 2200 Jun, [facility] [place] [facility] [address] [id number] [place] [address]- 6758 Jun, [facility] [place] [facility] [address] [id number] [place] [address]- 6736 Jun, [facility] [place] [facility] [address] [id number] [place] [address]- 9519 Jun, [facility] [place] [facility] [address] [id number] [place] [address]- 9225 Jun, [facility] [place] [facility] [address] [id number] [place] [address]- 1947 Jun, [facility] [place] [facility] [address] [id number] [place] [address]- 4806 Jun, [facility] [place] [facility] [address] [id number] [place] [address]- 6068 Jun, [facility] [place] [facility] [address] [id number] [place] [address]- 9674 Jun, [facility] [place] [facility] [address] [id number] [place] [address]- 3860 Jun, [facility] [place] [facility] [address] [id number] [place] [address]- 9102 Jun, [facility] [place] [facility] [address] [id number] [place] [address]- 1979 May, [facility] [place] [facility] [address] [id number] [place] [address]- 6258 May, [facility] [place] [facility] [address] [id number] [place] [address]- 6286 May, [facility] [place] [facility] [address] [id number] [place] [address]- 8054 May, [facility] [place] [facility] [address] [id number] [place] [address]- 1462 May, [facility] [place] [facility] [address] [id number] [place] [address]- 1543 Apr, [facility] [place] [facility] [address] [id number] [place] [address]- 5997 Apr, [facility] [place] [facility] [address] [id number] [place] [address]- 6655 Apr, [facility] [place] [facility] [address] [id number] [place] [address]- 4916 Apr, [facility] [place] [facility] [address] [id number] [place] [address]- 2838 Mar, [facility] [place] [facility] [address] [id number] [place] [address]- 2869 Mar, [facility] [place] [facility] [address] [id number] [place] [address]- 7561 Mar, [facility] [place] [facility] [address] [id number] [place] [address]- 2110 Mar, [facility] [place] [facility] [address] [id number] [place] [address]- 6005 Mar, [facility] [place] [facility] [address] [id number] [place] [address]- 3190 Mar, [facility] [place] [facility] [address] [id number] [place] [address]- 5000 Mar, [facility] [place] [facility] [address] [id number] [place] [address]- 8701 Mar, [facility] [place] [facility] [address] [id number] [place] [address]- 2368 Feb, [facility] [place] [facility] [address] [id number] [place] [address]- 8855 Feb, [facility] [place] [facility] [address] [id number] [place] [address]- 8094 Feb, [facility] [place] [facility] [address] [id number] [place] [address]- 6009 Feb, [facility] [place] [facility] [address] [id number] [place] [address]- 4483 Feb, [facility] [place] [facility] [address] [id number] [place] [address]- 9967 Feb, [facility] [place] [facility] [address] [id number] [place] [address]- 1992 Feb, [facility] [place] [facility] [address] [id number] [place] [address]- 1742 Feb, [facility] [place] [facility] [address] [id number] [place] [address]- 1004 January, [facility] [place] [facility] [address] [id number] [place] [address]- 5327 January, [facility] [place] [facility] [address] [id number] [place] [address]- 9770 January, [facility] [place] [facility] [address] [id number] [place] [address] January, [facility] [place] [facility] [address] [id number] [place] [address] January, [facility] [place] [facility] [address] [id number] [place] [address] January, [facility] [place] [facility] [address] [id number] [place] [address] Dec, [facility] [place] [facility] [address] [id number] [place] [address] Dec, [facility] [place] [facility] [address] [id number] [place] [address] Dec, [facility] [place] [facility] [address] [id number] [place] [address] Dec, [facility] [place] [facility] [address] [id number] [place] [address] Dec, [facility] [place] [facility] [address] [id number] [place] [address] Dec, [facility] [place] [facility] [address] [id number] [place] [address] Dec, [facility] [place] [facility] [address] [id number] [place] [address] Dec, [facility] [place] [facility] [address] [id number] [place] [address] Oct, [facility] [place] [facility] [address] [id number] [place] [address] Oct, [facility] [place] [facility] [address] [id number] [place] [address] Aug, [facility] [place] [facility] [address] [id number] [place] [address] Aug, [facility] [place] [facility] [address] [id number] [place] [address] Jul, [facility] [place] [facility] [address] [id number] [place] [address] Jul, [facility] [place] [facility] [address] [id number] [place] [address] Mar, [facility] [place] [facility] [address] [id number] [place] [address]- [address] Mar, [facility] [place] [facility] [address] [id number] [place] [address] Mar, [facility] [place] [facility] [address] [id number] [place] [address] Feb, [facility] [address] [id number] [place] [address] Feb, [facility] [address] [id number] [place] [address] Feb, [facility] [address] [id number] [place] [address] January, [facility] [address] [id number] [place] [address] January, [facility] [address] [id number] [place] [address] January, [facility] [address] [id number] [place] [address] January, [facility] [address] [id number] [place] [address] January, [facility] [address] [id number] [place] [address] January, [facility] [address] [id number] [place] [address] January, [facility] [address] [id number] [place] [address] Dec, [facility] [address] [id number] [place] [address] Dec, [facility] [place] [facility] [address] [id number] [place] [address] Dec, [facility] [place] [facility] [address] [id number] [place] [address] Dec, [facility] [place] [facility] [address] [id number] [place] [address] 1767 Nov, [facility] [place] [facility] [address] [id number] [place] [address] Nov, [facility] [place] [facility] [address] [id number] [place] [address] Nov, [facility] [address] [id number] [place] [address] Oct, [facility] [place] [facility] [address] [id number] [place] [address] Oct, [facility] [address] [id number] [place] [address] Oct, [facility] [place] [facility] [address] [id number] [place] [address] Oct, [facility] [address] [id number] [place] [address] Oct, [facility] [address] [id number] [place] [address] Oct, [facility] [address] [id number] [place] [address] Sep, [facility] [address] [id number] [place] [address] Sep, [facility] [address] [id number] [place] [address] Sep, [facility] [address] [id number] [place] [address] Sep, [facility] [address] [id number] [place] [address] Sep, [facility] [address] [id number] [place] [address] Aug, [facility] [place] [facility] [address] [id number] [place] [address] Aug, [facility] [place] [facility] [address] [id number] [place] [address] 07 Aug, 2012 [facility] [place] [facility] [address] [id number] [place] [address] Aug, [facility] [place] [facility] [address] [id number] [place] [address] 06 Aug, 2012 [facility] [place] [facility] [address] [id number] [place] [address] Aug, [facility] [place] [facility] [address] [facility] [id number] [place] [address] Jul, [facility] [place] [facility] [address] [id number] [place] [address] 29 Jul, 2012 [facility] [place] [facility] [address] [id number] [place] [address] Jul, [facility] [place] [facility] [address] [id number] [place] [address] Jul, [facility] [place] [facility] [address] [id number] [place] [address] Jul, [facility] [place] [facility] [address] [id number] [place] [address] Jul, [facility] [place] [facility] [address] [id number] [place] [address] 15 Jul, 2012 [facility] [place] [facility] [address] [id number] [place] [address] 15 Jul, 2012 [facility] [place] [facility] [address] [id number], [place] [address] 14 Jul, 2012 [facility] [place] [facility] [address] [id number], [place] [address] 12 Jul, 2012 [facility] [place] [facility] [address] [id number] [place] [address]- [address] 12 Jul, 2012 [facility] [place] [facility] [address] [facility] [id number], [place] [address] 09 Jul, 2012 [facility] [place] [facility] [address] [facility] [id number], [place] [address] 08 Jul, 2012 [facility] [place] [facility] [address] [id number] [place] [address] 08 Jul, 2012 [facility] [place] [facility] [address] [id number] [place] [address] Jul, [facility] [place] [facility] [address] [id number] [place] [address] Jul, [facility] [place] [facility] [address] [id number] [place] [address] Jul, [facility] [place] [facility] [address] [id number] [place] [address] Jul, [facility] [place] [facility] [address] [id number] [place] [address] Jul, [facility] [place] [facility] [address] [id number] [place] [address] Jun, [facility] [place] [facility] [address] [id number] [place] [address] Jun, [facility] [place] [facility] [address] [id number] [place] [address] May, [facility] [place] [facility] [address] [id number] [place] [address] Apr, [facility] [place] [facility] [address] [id number] [place] [address] Mar, [facility] [place] [facility] [address] [id number] [place] [address] Feb, [facility] [place] [facility] [address] [id number] [place] [address] Feb, [facility] [place] [facility] [address] [id number] [place] [address] Feb, [facility] [place] [facility] [address] [id number] [place] [address] January, [facility] [place] [facility] [address] [id number] [place] [address]- [address] January, [facility] [place] [facility] [address] [id number] [place] [address] Dec, [facility] [place] [facility] [address] [id number] [place] [address]- [address]27 Dec, [facility] [place] [facility] [address] [id number] [place] [address] Nov, [facility] [place] [facility] [address] [id number] [place] [address] Aug, [facility] [place] [facility] [address] [id number] [place] [address] Jul, [facility] [place] [facility] [address] [id number] [place] [address]- [address] Jul, [facility] [place] [facility] [address] [id number] [place] [address]- [address] Jul, [facility] [place] [facility] [address] [id number] [place] [address] Jun, [facility] [place] [facility] [address] [id number] [place] [address]- [address] Jun, [facility] [place] [facility] [address] [id number] [place] [address]- [address] 14 May, 2011 [facility] [place] [facility] [address] [id number] [place] [address]- [address] Apr, [facility] [place] [facility] [address] [id number], [place] [address] January, [facility] [place] [facility] [address] [id number] [place] [address]- [address] Dec, [facility] [place] [facility] [address] [id number] [place] [address]- [address] 16 Nov, 2010 [facility] [place] [facility] [address] [id number] [place] [address] 10 Oct, 2010 [facility] [place] [facility] [address] [id number], [place] [address] Jun, [facility] [address] [facility] [id number], [place] [address] Jun, [facility] [address] [facility] [id number], [place] [address] Oct, [facility] [address] [facility] [id number], [place] [address] Aug, [place] [address] [facility] [id number], [place] [address] Jul, [place] [address] [facility] [id number], [place] [address] Dec, IMMUNIZATIONS No Known Immunizations SOCIAL HISTORY Never Assessed REASON FOR VISIT UTI- OB patient, having painful and burning during imtercourse , burning with urination x few days --- harry mckeon, patient was seen yesterday by Dr. Peterson refused to be check yesterday for he rintake , she is waiting for ultrasound to see how many weeks she is in he rporegnancy she wants to have an PLAN OF CARE Activity Details Follow Up prn Reason: VITAL SIGNS Height 61 in 2017-12-11 Weight 190.0 lbs 2017-12-11 BMI 35.90 kg/m2 2017-12-11 MEDICATIONS Medication Instructions Dosage Frequency Start Date End Date Duration Status Zoloft 50 mg Orally Once a day 1 tablet 24h Sep, 30 day(s) Not -Taking Flonase 50 MCG/ACT Nasally Once a day 2 sprays in each nostril 24h Nov, 30 day(s) Not-Taking Diflucan 150 MG 1 tablet Nov, 1 dose Active SudoGest 60 mg Orally every 6 hrs 1 tablet as needed 6h Nov, 05 days Not-Taking RESULTS No Results PROCEDURES Procedure Date Ordered Result Body Site URINALYSIS, AUTO, W/O SCOPE December 11, 2017 URINE CULTURE/COLONY COUNT December 11, 2017 INSTRUCTIONS MEDICATIONS ADMINISTERED No Known Medications [...]
--- OUTSIDE RECORDS SUMMARY | 2018-12-13 18:01 | XMS REPORT ---
Author Author BRODERICK AWLLACE [facility] Address [address] [place] [address] Care Team Providers Care Geophysical Laboratory Director Name Role Phone BRODERICK WALLACE Unavailable PROBLEMS Type Condition ICD9-CM Code YRU19-KE Code Onset Dates Condition Status SNOMED Code Problem Irregular periods/menstrual cycles N92.6 Active 03073503 Problem Depression, unspecified depression type F32.9 Active 26025830 Problem Missed period N92.6 Active 72306299 Problem DANIELLA (generalized anxiety disorder) F41.1 Active 57724566 Problem Anemia, O90.81 Active 120218313 Problem Seasonal allergic rhinitis, unspecified allergic rhinitis trigger J30.2 Active 341410808 Problem Dysthymic disorder F34.1 Active 12175129 Problem Other headache syndrome G44.89 Active 268856880 ALLERGIES Substance Reaction Event Type Date Status Cefaclor Unknown Drug Allergy Jun, Active ENCOUNTERS Encounter Location Date Diagnosis [facility] [id number] [place] [address] 54645- 3421 January, [facility] [id number] [place] [address] 22796- 8433 January, [facility] [id number] [address] January, Left ankle pain, unspecified chronicity M25.572 [facility] [address] [address] 3[address] January, [facility] [id number] [place] [address] 61679- 6893 January, Dysthymic disorder F34.1 and DANIELLA (generalized anxiety disorder) F41.1 [facility] [id number] [place] [address] 88313 -8881 January, Impacted cerumen of both ears H61.23 [facility] [id number] [place] [address] 10177- 2163 Dec, [facility] [id number] [place] [address] 65721- 4155 Dec, in multigravida Z34.80 [facility] [id number] [place] [address] 22302- 2406 Dec, DANIELLA (generalized anxiety disorder) F41.1 and Dysthymic disorder F34.1 [facility] [id number] [place] [address] 12641- 2406 Dec, [place] [id number] [place] [address] 73024- 5192 Nov, [facility] [id number] [place] [address] 04999- 3628 Nov, [place] [id number] [place] [address] 83405- 1848 Nov, Painful urination R30.9 ; Vaginal yeast infection B37.3 and Early stage of Z34.90 [facility] [id number] [place] [address] 34170- 5414 Nov, in multigravida Z34.80 [facility] [id number] [place] [address] 27988- 7099 Nov, Dysfunction of right eustachian tube H69.81 and Bilateral impacted cerumen H61.23 [facility] [id number] [place] [address] 86758- 3110 Nov, [facility] [id number] [place] [address] 91062- 6688 Nov, [facility] [id number] [place] [address] 38599- 7514 Nov, [facility] [id number] [place] [address] 00398 -3892 Nov, Missed period N92.6 [place] [id number] [place] [address] 65375- 8844 Sep, DANIELLA (generalized anxiety disorder) F41.1 and Dysthymic disorder F34.1 [facility] [id number] [place] [address] 64049 -7901 Aug, Acute nasopharyngitis J00 [place] [address] 55202- 6038 Jul, Irregular periods/menstrual cycles N92.6 [place] [address] 66132- 7370 Jul, Bilateral impacted cerumen H61.23 [place] [address] 42915- 4326 Jul, DANIELLA (generalized anxiety disorder) F41.1 and Dysthymic disorder F34.1 [facility] [id number] [place] [address] 82442- 7307 Jun, [place] [address] 42119- 3908 Jun, Dysthymic disorder F34.1 [facility] [id number] [place] [address] 65647- 2488 Jun, Anemia, O90.81 ; Lower abdominal pain R10.30 ; Allergic contact dermatitis due to adhesives L23.1 and Other headache syndrome G44.89 [facility] [id number] [place] [address] 97032- 0271 Jun, 39 weeks gestation of Z3A.39 [place] [address] 74156- 7631 May, care in third trimester Z34.93 [facility] [id number] [place] [address] 66480 -8468 May, Acute seasonal allergic rhinitis, unspecified trigger J30.2 [facility] [id number] [place] [address] 90056- 4073 20 May, 2017 Normal in multigravida Z34.80 [facility] [id number] [place] [address] 08531 -8622 17 May, 2017 Urinary frequency R35.0 and Pain of round ligament N94.9 [place] [address] 74500- 3560 13 May, 2017 35 weeks gestation of Z3A.35 [place] [address] 53547- 8923 30 Apr, 2017 High risk sexual behavior Z72.51 and 33 weeks gestation of Z3A.33 [place] [address] 59753- 3939 Apr, care in third trimester Z34.93 [facility] [address] 76047 -4012 Apr, Bilateral impacted cerumen H61.23 [place] [address] 70066- 5218 09 Apr, 2017 30 weeks gestation of Z3A.30 and Encounter for immunization Z23 [place] [address] 10208- 3768 Mar, 28 weeks gestation of Z3A.28 [place] [address] 50639- 9825 Mar, [place] [address] 35219- 5999 Mar, [place] [address] 53970- 7788 Mar, [place] [id number] [place] [address] 07257- 5515 Mar, 26 weeks gestation of Z3A.26 [facility] [address] [place] [id number] [place] [address] 29236 -3384 03 Mar, 2017 Acute back pain M54.[address] 43100- 3388 28 Feb, 2017 24 weeks gestation of Z3A.24 [facility] [address] [place] [address] 14391 -1089 Feb, Lower abdominal pain R10.30 [facility] [address] [place] [address] 66579 -4562 Feb, Gastroenteritis and colitis, viral A08.[address] 10777- 1930 14 Feb, 2017 care in second trimester Z34.[address] 27122- 6873 07 Feb, 2017 [facility] [address] [place] [address] 72075 -8597 04 Feb, 2017 Abscess L02.91 [facility] [address] 45305 -8253 Feb, Vaginal flavia B37.[address] 98716- 4328 January, 20 weeks gestation of Z3A.[address] 87647- 8607 January, [facility] [address] [place] [address] 60835 -6167 January, Seasonal allergic rhinitis, unspecified allergic rhinitis trigger J30.2 [facility] [address] [place] [address] 18035 -7362 January, Dermatitis L30.9 and Bug bites, initial encounter W57.XXXA [address] 90784- 0181 January, Sore throat J02.9 and Seasonal allergic rhinitis, unspecified allergic rhinitis trigger J30.2 [place] [id number] [place] [address] 53182- 7308 January, 16 weeks gestation of Z3A.16 [facility] [id number] [place] [address] 35356- 5886 Dec, care in first trimester Z34.91 [place] [address] 80162- 7125 Nov, care in first trimester Z34.91 and Normal in multigravida Z34.80 [facility] [place] [id number] [place] [address] 53852 -7911 Oct, Nausea and vomiting during O21.9 [place] [address] 70187- 3771 Oct, [place] [address] 10261- 9715 Oct, [place] [address] 65188- 2549 Oct, Encounter for test, result unknown Z32.00 [place] [id number] [place] [address] 65060- 0844 Sep, Irregular periods/menstrual cycles N92.6 ; Sore throat J02.9 ; Nausea R11.0 and Right ear impacted cerumen H61.21 [facility] [place] [id number] [place] [address] 64225 -6397 Jul, Vaginal discharge N89.8 ; Other specified bacterial agents as the cause of diseases classified elsewhere B96.89 and Acute vaginitis N76.0 [place] [id number] [place] [address] 33996- 9564 Jun, Depression, unspecified depression type F32.9 [place] [id number] [place] [address] 82600- 8305 23 May, 2016 Vaginal candidiasis B37.3 [place] [address] 56432- 2982 20 May, 2016 Acute pharyngitis, unspecified etiology J02.9 [place] [address] 32116- 5507 19 May, 2016 Depression, unspecified depression type F32.9 [place] [address] 80809- 5236 12 May, 2016 Depression, unspecified depression type F32.9 [place] [address] 37270- 1340 May, Dysthymic disorder F34.1 [facility] [address] 99831 -0323 Apr, Acute suppurative otitis media of right ear without spontaneous rupture of tympanic membrane, recurrence not specified H66.001 [facility] [id number] [place] [address] 62461 -0928 Mar, Herpes zoster without complication B02.9 [facility] [id number] [place] [address] 71761 -0054 Dec, Allergic rhinitis J30.9 [facility] [id number] [place] [address] 23546 -7806 Dec, Lumbago M54.5 [facility] [id number] [place] [address] 10406 -3773 18 Oct, 2015 Dysuria R30.0 and Urinary tract infection N39.0 [facility] [id number] [place] [address] 10587 -6795 Sep, Acute nasopharyngitis J00 and Strep pharyngitis J02.0 [place] [address] 70140- 9444 Jul, Upper respiratory tract infection, unspecified type J06.9 [place] [id number] [place] [address] 71934- 9987 Jun, Irritable bowel syndrome without diarrhea K58.9 [place] [id number] [place] [address] 57539- 9964 Jun, [place] [address] 33612- 4775 May, [place] [id number] [place] [address] 25026- 0864 May, [place] [address] 67980- 7026 May, Otitis externa of left ear 380.10 [place] [id number] [place] [address] 01737- 9359 May, Pain in joint, ankle and foot 719.47 [place] [id number] [place] [address] 90294- 9501 Apr, Pain in joint, ankle and foot 719.47 [place] [address] 66898- 9422 Mar, Dysuria 788.1 and Incontinence in female 625.6 [place] [id number] [place] [address] 17686- 9092 Feb, Plantar fasciitis of right foot 728.71 ; Ankle weakness 719.67 and Ankle pain, chronic 719.47 [place] [id number] [place] [address] 76993- 8512 Feb, [place] [address] 78518- 8178 Feb, Belching 787.3 and Chest wall pain 786.52 [place] [id number] [place] [address] 72267- 7953 Dec, [facility] [place] [facility] [address] [id number] [place] [address]- 0929 Dec, [facility] [place] [facility] [address] [id number] [place] [address]- 4090 Nov, [facility] [place] [facility] [address] [id number] [place] [address]- 5532 Nov, [facility] [place] [facility] [address] [id number] [place] [address]- 6158 Sep, [facility] [place] [facility] [address] [id number] [place] [address]- 6762 Sep, [facility] [place] [facility] [address] [id number] [place] [address]- 1015 Sep, [facility] [place] [facility] [address] [id number] [place] [address]- 2244 Sep, [facility] [place] [facility] [address] [id number] [place] [address]- 4183 Aug, [facility] [place] [facility] [address] [id number] [place] [address]- 5831 Aug, [facility] [place] [facility] [address] [id number] [place] [address]- 4669 Aug, [facility] [place] [facility] [address] [id number] [place] [address]- 1104 Aug, [facility] [place] [facility] [address] [id number] [place] [address]- 4328 Aug, [facility] [place] [facility] [address] [id number] [place] [address]- 0515 Aug, [facility] [place] [facility] [address] [id number] [place] [address]- 0383 Aug, [facility] [place] [facility] [address] [id number] [place] [address]- 9431 Aug, [facility] [place] [facility] [address] [id number] [place] [address]- 3939 Aug, [facility] [place] [facility] [address] [id number] [place] 4548 Aug, [facility] [place] [facility] [address] [id number] [place] [address]- 7470 Aug, [facility] [place] [facility] [address] [facility] [id number] [place] [address]- 6056 Aug, [facility] [place] [facility] [address] [id number] [place] [address]- 5727 Aug, [facility] [place] [facility] [address] [id number] [place] [address]- 1262 Aug, [facility] [place] [facility] [address] [id number] [place] [address]- 3438 Jul, [facility] [place] [facility] [address] [id number] [place] [address]- 2073 Jul, [facility] [place] [facility] [address] [id number] [address]- 2304 Jul, [facility] [place] [facility] [address] [id number] [place] [address]- 6240 Jul, [facility] [place] [facility] [address] [id number] [place] [address]- 4874 Jul, [facility] [place] [facility] [address] [id number] [place] [address]- 9125 Jul, [facility] [place] [facility] [address] [id number] [place] [address]- 1555 Jul, [facility] [place] [facility] [address] [id number] [place] [address]- 7927 Jun, [facility] [place] [facility] [address] [id number] [place] [address]- 4140 Jun, [facility] [place] [facility] [address] [id number] [place] [address]- 2109 Jun, [facility] [place] [facility] [address] [id number] [place] [address]- 9747 Jun, 2013 [facility] [place] [facility] [address] [id number] [place] [address]- 3231 Jun, [facility] [place] [facility] [address] [id number] [place] [address]- 1013 Jun, 2013 [facility] [place] [facility] [address] [id number] [place] [address]- 6727 Jun, [facility] [place] [facility] [address] [id number] [place] [address]- 3140 Jun, [facility] [place] [facility] [address] [id number] [place] [address]- 4104 Jun, [facility] [place] [facility] [address] [id number] [place] [address]- 6650 Jun, [facility] [place] [facility] [address] [id number] [place] [address]- 9727 Jun, [facility] [place] [facility] [address] [id number] [place] [address]- 8612 Jun, [facility] [place] [facility] [address] [id number] [place] [address]- 3445 Jun, [facility] [place] [facility] [address] [id number] [place] [address]- 4666 Jun, [facility] [place] [facility] [address] [id number] [place] [address]- 9906 25 May, 2013 [facility] [place] [facility] [address] [id number] [place] [address]- 2906 24 May, 2013 [facility] [place] [facility] [address] [id number] [place] [address]- 7452 24 May, 2013 [facility] [place] [facility] [address] [id number] [place] [address]- 5997 05 Sep, 2013 [facility] [place] [facility] [address] [id number] [place] [address]- 5788 May, [facility] [place] [facility] [address] [id number] [place] [address]- 0281 Apr, [facility] [place] [facility] [address] [id number] [place] [address]- 1267 Apr, [facility] [place] [facility] [address] [id number] [place] [address]- 2138 Apr, [facility] [place] [facility] [address] [id number] [place] [address]- 0656 Apr, [facility] [place] [facility] [address] [id number] [place] [address]- 5689 Mar, [facility] [place] [facility] [address] [id number] [place] [address]- 1030 Mar, [facility] [place] [facility] [address] [id number] [place] [address]- 5264 Mar, [facility] [place] [facility] [address] [id number] [place] [address]- 6748 Mar, [facility] [place] [facility] [address] [id number] [place] [address]- 3950 Mar, [facility] [place] [facility] [address] [id number] [place] [address]- 6550 Mar, [facility] [place] [facility] [address] [id number] [place] [address]- 0913 Mar, [facility] [place] [facility] [address] [id number] [place] [address]- 6088 Mar, [facility] [place] [facility] [address] [id number] [place] [address]- 7718 Feb, [facility] [place] [facility] [address] [id number] [place] [address]- 5927 Feb, [facility] [place] [facility] [address] [id number] [place] [address]- 7258 Feb, [facility] [place] [facility] [address] [id number] [place] [address]- 4621 Feb, [facility] [place] [facility] [address] [id number] [place] [address]- 2671 Feb, [facility] [place] [facility] [address] [id number] [place] [address]- 8966 Feb, [facility] [place] [facility] [address] [id number] [place] [address]- 0439 Feb, [facility] [place] [facility] [address] [id number] [place] [address]- 2084 Feb, [facility] [place] [facility] [address] [id number] [place] [address]- 2081 January, [facility] [place] [facility] [address] [id number] [place] [address]- 9929 January, [facility] [place] [facility] [address] [id number] [place] [address]- 5640 January, [facility] [place] [facility] [address] [id number] [place] [address]- 1275 January, [facility] [place] [facility] [address] [id number] [place] [address]- 2900 January, [facility] [place] [facility] [address] [id number] [place] [address]- 5055 January, [facility] [place] [facility] [address] [id number] [place] [address]- 4582 Dec, [facility] [place] [facility] [address] [id number] [place] [address]- 3117 Dec, [facility] [place] [facility] [address] [id number] [place] [address]- 0070 Dec, [facility] [place] [facility] [address] [id number] [place] [address]- 7297 Dec, [facility] [place] [facility] [address] [id number] [place] [address]- 9344 Dec, [facility] [place] [facility] [address] [id number] [place] [address]- 6496 Dec, [facility] [place] [facility] [address] [id number] [place] [address]- 0402 Dec, [facility] [place] [facility] [address] [id number] [place] [address]- 9896 Dec, [facility] [place] [facility] [address] [id number] [place] [address]- 1700 Oct, [facility] [place] [facility] [address] [id number] [place] [address] Oct, [facility] [place] [facility] [address] [id number] [place] [address] Aug, [facility] [place] [facility] [address] [id number] [place] [address] Aug, [facility] [place] [facility] [address] [id number] [place] [address] Jul, [facility] [place] [facility] [address] [id number] [place] [address] Jul, [facility] [place] [facility] [address] [id number] [place] [address] Mar, [facility] [place] [facility] [address] [id number] [place] [address] Mar, [facility] [place] [facility] [address] [id number] [place] [address] Mar, [facility] [place] [facility] [address] [id number] [place] [address] Feb, [facility] [place] [facility] [address] [id number] [place] [address] Feb, [facility] [place] [facility] [address] [id number] [place] [address] Feb, [facility] [place] [facility] [address] [id number] [place] [address] January, [facility] [address] [id number] [place] [address] January, [facility] [address] [id number] [place] [address]- [address] January, [facility] [address] [id number] [place] [address] January, [facility] [address] [id number] [place] [address]- [address] January, [facility] [address] [id number] [place] [address]- [address] January, [facility] [address] [id number] [place] [address]- [address] January, [facility] [address] [id number] [place] [address] Dec, [facility] [address] [id number] [place] [address]- [address] Dec, [facility] [address] [id number] [place] [address]- [address] Dec, [facility] [address] [id number] [place] [address]- [address] Dec, [facility] [address] [id number] [place] [address] Nov, [facility] [place] [facility] [address] [id number] [address] Nov, [facility] [place] [facility] [address] [id number] [place] [address] Nov, [facility] [place] [facility] [address] [id number] [place] [address] Oct, [facility] [place] [facility] [address] [id number] [place] [address]- [address] Oct, [facility] [place] [facility] [address] [id number] [place] [address]- [address] 20 Oct, 2012 [facility] [address] [id number] [place] [address] Oct, [facility] [address] [id number] [place] [address]- [address] 13 Oct, 2012 [facility] [address] [id number] [place] [address]- [address] 05 Oct, 2012 [facility] [address] [id number] [place] [address]- [address] 30 Sep, 2012 [facility] [address] [id number] [place] [address] Sep, [facility] [address] [id number] [place] [address] Sep, [facility] [address] [id number] [place] [address]- [address] Sep, [facility] [address] [id number] [place] [address]- [address] Sep, [facility] [address] [id number] [place] [address]- [address] Aug, [facility] [address] [id number] [place] [address]- [address] Aug, [facility] [address] [id number] [place] [address]- [address] Aug, [facility] [address] [id number] [place] [address]- [address] Aug, [facility] [address] [id number] [place] [address] Aug, [facility] [address] [id number] [place] [address] Aug, [facility] [address] [id number] [place] [address] Jul, [facility] [place] [facility] [address] [id number] [place] [address]- [address] 29 Jul, 2012 [facility] [facility] [address] [id number] [place] [address] 29 Jul, 2012 [facility] [place] [facility] [address] [id number] [place] [address] 29 Jul, 2012 [facility] [place] [facility] [address] [id number] [place] [address] Jul, [facility] [place] [facility] [address] [id number] [place] [address] Jul, [facility] [place] [facility] [address] [id number] [place] [address] 15 Jul, 2012 [facility] [place] [facility] [address] [id number] [place] [address] 15 Jul, 2012 [facility] [place] [facility] [address] [id number] [place] [address] 14 Jul, 2012 [facility] [place] [facility] [address] [id number] [place] [address] Jul, [facility] [place] [facility] [address] [id number] [place] [address] Jul, [facility] [place] [facility] [address] [id number] [place] [address] Jul, [facility] [place] [facility] [address] [id number] [place] [address] Jul, [facility] [place] [facility] [address] [id number] [place] [address] Jul, [facility] [place] [facility] [address] [id number] [place] [address] Jul, [facility] [place] [facility] [address] [id number] [place] [address] Jul, [facility] [place] [facility] [address] [id number] [place] [address]46 07 Jul, 2012 [facility] [place] [facility] [address] [id number] [place] [address] Jul, [facility] [place] [facility] [address] [id number] [place] [address] Jul, [facility] [place] [facility] [address] [id number] [place] [address] Jun, [facility] [place] [facility] [address] [id number] [place] [address] Jun, [facility] [place] [facility] [address] [id number] [place] [address] May, [facility] [place] [facility] [address] [id number] [place] [address] Apr, [facility] [place] [facility] [address] [id number] [place] [address] 16 Mar, 2012 [facility] [address] [id number] [place] [address] Feb, [facility] [place] [facility] [address] [id number] [place] [address] Feb, [facility] [place] [facility] [address] [facility] [id number] [place] [address] Feb, [facility] [place] [facility] [address] [id number] [place] [address] January, [facility] [facility] [address] [id number] [place] [address] January, [facility] [place] [facility] [address] [id number] [place] [address] Dec, [facility] [place] [facility] [address] [id number] [place] [address] Dec, [facility] [address] [facility] [id number] [place] [address] Nov, [facility] [place] [facility] [address] [id number] [place] [address] 12 Aug, 2011 [facility] [place] [facility] [address] [id number] [place] [address] 16 Jul, 2011 [facility] [place] [facility] [address] [id number] [place] [address]- [address] 16 Jul, 2011 [facility] [address] [id number] [place] [address] 16 Jul, 2011 [facility] [address] [id number] [place] [address]- [address] 12 Jun, 2011 [facility] [place] [facility] [address] [id number] [place] [address] 12 Jun, 2011 [facility] [address] [id number] [place] [address] 14 May, 2011 [facility] [address] [id number] [place] [address] 10 Apr, 2011 [facility] [place] [facility] [address] [id number] [place] [address] January, [facility] [place] [facility] [address] [id number] [place] [address]58 13 Dec, 2010 [facility] [address] [id number] [place] [address]- [address] 16 Nov, 2010 [facility] [address] [id number] [place] [address] 10 Oct, 2010 [facility] [address] [id number] [place] [address]- [address]61 14 Jun, 2010 [facility] [facility] [address] [id number] [place] [address]- [address] 14 Jun, 2010 [facility] [address] [id number] [place] [address]- [address] 11 Oct, 2009 [facility] [address] [id number] [place] [address] Aug, [facility] [address] [facility] [id number] [place] [address] Jul, [facility] [address] [facility] [id number] [place] [address] Dec, IMMUNIZATIONS No Known Immunizations SOCIAL HISTORY Never Assessed REASON FOR VISIT head aches since Friday/low iron---DBennettRN, swelling in bilateral lower extremities, hemoglobin checked at [facility] Friday, was 8.7, repeat 8.4, by Dr. Lanier on 07/02/16, OB Dr. Gates PLAN OF CARE Activity Details Follow Up prn Reason: VITAL SIGNS Height 61 in 2017-07-07 Weight 197 lbs 2017-07-07 Temperature 97.9 degrees Fahrenheit 2017-07-07 Heart Rate 80 bpm 2017-07-07 Respiratory Rate 20 2017-07-07 BMI 37.22 kg/m2 2017-07-07 Blood pressure systolic 112 mmHg 2017-07-07 Blood pressure diastolic 80 mmHg 2017-07-07 MEDICATIONS Medication Instructions Dosage Frequency Start Date End Date Duration Status Ibuprofen 800 MG Orally Three times a day 1 tablet with food or milk as needed 8h Active Amoxicillin 500 mg Orally every 12 hrs 1 capsule 12h Jun, Jun, 10 day(s) Active Colace 100 MG Orally Once a day 1 capsule as needed 24h Active Nystatin-Triamcinolone 370537-8.1 UNIT/GM Externally Twice a day apply thin layer to rash- avoid applying to incision and keep baby away from site 12h Jun, Jun, 10 days Active Oxycodone-Acetaminophen 5-325 MG Orally every 6 hrs 1 tablet as needed 6h Active RESULTS Name Result Date Reference Range HEMOGLOBIN (IN HOUSE) 2017-07-07 HEMOGLOBIN 9.0 11.5 - 16 gm/dL Lot # [id number] Exp date 07/18/18 STREP A (IN HOUSE) 2017-07-07 STREP A negative Control + Lot # [id number] Exp date 06/21/18 PROCEDURES Procedure Date Ordered Result Body Site HEMOGLOBIN Jul 07, 2017 STREP A ASSAY W/OPTIC Jul 07, 2017 INSTRUCTIONS MEDICATIONS ADMINISTERED No Known Medications [...]
--- OUTSIDE RECORDS SUMMARY | 2018-12-13 18:02 | XMS REPORT ---
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 Name Role Phone CHIQUITA DERICK Unavailable PROBLEMS Type Condition ICD9-CM Code CHP32-BB Code Onset Dates Condition Status SNOMED Code Problem Depression, unspecified depression type F32.9 Active 68680569 Problem Seasonal allergic rhinitis, unspecified allergic rhinitis trigger J30.2 Active 555502968 Problem Irregular periods/menstrual cycles N92.6 Active 99260521 Problem Seasonal allergies J30.2 Active 316867250 Problem Missed period N92.6 Active 26247976 Problem Other headache syndrome G44.89 Active 722871476 Problem Anemia, O90.81 Active 979172510 Problem DANIELLA (generalized anxiety disorder) F41.1 Active 44601297 Problem Dysthymic disorder F34.1 Active 13004063 ALLERGIES No Information ENCOUNTERS Encounter Location Date Diagnosis [facility] [address] 15[address]- [address]361 Apr, [facility] [address] 87542- 1160 Mar, care in second trimester Z34.92 [facility] [address] 04070- 0834 Mar, Bilateral impacted cerumen H61.23 [facility] [id number] [place] [address] 63028- 9203 Feb, [facility] [id number] [place] [address] 10159 -5467 Feb, [facility] [id number] [place] [address] 24247- 0066 Feb, Normal in multigravida Z34.80 [facility] [id number] [place] [address] 66500- 2761 13 Feb, 2018 Painful urination R30.9 and Encounter for supervision of normal in second trimester Z34.92 [facility] [id number] [place] [address] 64401 -8785 07 Feb, 2018 Seasonal allergies J30.2 [place] [address] 81844- 7856 Feb, [facility] [address] 14336- 6711 Feb, [facility] [address] 99317 -8959 January, Seasonal allergic rhinitis, unspecified trigger J30.2 [facility] [address] 19356 -6097 January, [facility] [address] 76792 -9078 January, Viral gastroenteritis A08.4 [place] [address] 28327- 0761 January, [facility] [address] 40882- 5856 January, care in first trimester Z34.91 [place] [address] 33551- 5089 January, [facility] [address] 57088 -5694 January, Left ankle pain, unspecified chronicity M25.572 [place] [address] 94472- 5625 January, [facility] [address] 02086- 9776 January, Dysthymic disorder F34.1 and DANIELLA (generalized anxiety disorder) F41.1 [facility] [id number] [place] [address] 36637 -1575 January, Impacted cerumen of both ears H61.23 [place] [id number] [place] [address] 52584- 6394 Dec, [place] [address] 68116- 0042 Dec, in multigravida Z34.80 [place] [address] 19224- 4552 Dec, DANIELLA (generalized anxiety disorder) F41.1 and Dysthymic disorder F34.1 [place] [address] 02012- 6070 Dec, [place] [address] 39192- 7013 Nov, [place] [address] 44228- 3998 Nov, [place] [address] 27676- 1604 Nov, Painful urination R30.9 ; Vaginal yeast infection B37.3 and Early stage of Z34.90 [place] [address] 29069- 1768 Nov, in multigravida Z34.80 [place] [address] 52910- 5546 Nov, Dysfunction of right eustachian tube H69.81 and Bilateral impacted cerumen H61.23 [place] [address] 95937- 5759 Nov, [place] [address] 72240- 1783 Nov, [place] [address] 14549- 1581 Nov, [facility] [id number] [place] [address] 47256 -5565 Nov, Missed period N92.6 [place] [address] 34776- 5232 Sep, DANIELLA (generalized anxiety disorder) F41.1 and Dysthymic disorder F34.[address] [facility] IN [place] [address] 51026 -4217 Aug, Acute nasopharyngitis J00 [place] [address] 12335- 8870 Jul, Irregular periods/menstrual cycles N92.6 [place] [address] 65079- 4143 Jul, Bilateral impacted cerumen H61.23 [place] [address] 52218- 4037 Jul, DANIELLA (generalized anxiety disorder) F41.1 and Dysthymic disorder F34.1 [place] [address] 20176- 8438 Jun, [place] [address] 85891- 1573 Jun, Dysthymic disorder F34.1 [place] [address] 69458- 6537 Jun, Anemia, O90.81 ; Lower abdominal pain R10.30 ; Allergic contact dermatitis due to adhesives L23.1 and Other headache syndrome G44.89 [place] [address] 55717- 8906 Jun, 39 weeks gestation of Z3A.39 [place] [address] 74169- 0941 May, care in third trimester Z34.93 [facility] [id number] [place] [address] 15579 -8549 24 May, 2017 Acute seasonal allergic rhinitis, unspecified trigger J30.2 [place] [id number] [place] [address] 95129- 3027 20 May, 2017 Normal in multigravida Z34.[address] [facility] [id number] [place] [address] 28816 -3566 17 May, 2017 Urinary frequency R35.0 and Pain of round ligament N94.9 [place] [id number] [place] [address] 73076- 5927 May, 35 weeks gestation of Z3A.35 [place] [address] 06178- 2140 Apr, High risk sexual behavior Z72.51 and 33 weeks gestation of Z3A.33 [place] [address] 31571- 1552 Apr, care in third trimester Z34.[address] [facility] IN [facility] [id number] [place] [address] 08908 -5460 Apr, Bilateral impacted cerumen H61.23 [place] [id number] [place] [address] 52045- 9214 Apr, 30 weeks gestation of Z3A.30 and Encounter for immunization Z23 [place] [id number] [place] [address] 33769- 1092 Mar, 28 weeks gestation of Z3A.28 [place] [id number] [place] [address] 36138- 2908 Mar, [place] [id number] [place] [address] 98579- 1347 Mar, [place] [id number] [place] [address] 90243- 1107 Mar, [facility] [place] [facility] [place] [id number] [place] [address] 72946- 8581 12 Mar, 2017 26 weeks gestation of Z3A.26 [facility] [address] [place] [address] 80566 -6117 03 Mar, 2017 Acute back pain M54.[address] 27750- 6084 Feb, 24 weeks gestation of Z3A.24 [facility] [address] [place] [address] 47080 -0971 27 Feb, 2017 Lower abdominal pain R10.30 [facility] [address] [place] [address] 95245 -5571 25 Feb, 2017 Gastroenteritis and colitis, viral A08.[address] 90927- 5626 14 Feb, 2017 care in second trimester Z34.[address] 42069- 9707 07 Feb, 2017 [facility] [address] 94038 -6767 04 Feb, 2017 Abscess L02.91 [facility] [address] 40797 -8807 03 Feb, 2017 Vaginal flavia B37.[address] 00646- 4062 January, 20 weeks gestation of Z3A.[address] 41199- 8476 January, [facility] [address] [place] [address] 74284 -8112 January, Seasonal allergic rhinitis, unspecified allergic rhinitis trigger J30.2 [facility] [address] 27340 -5437 January, Dermatitis L30.9 and Bug bites, initial encounter W57.XXXA [place] [id number] [place] [address] 40851- 4109 January, Sore throat J02.9 and Seasonal allergic rhinitis, unspecified allergic rhinitis trigger J30.2 [place] [id number] [place] [address] 29963- 1990 January, 16 weeks gestation of Z3A.16 [place] [address] 95371- 3464 Dec, care in first trimester Z34.91 [place] [address] 49344- 6600 Nov, care in first trimester Z34.91 and Normal in multigravida Z34.[address] [facility] [place] [address] 84498 -2806 Oct, Nausea and vomiting during O21.9 [place] [address] 90145- 8787 Oct, [place] [address] 52103- 5371 Oct, [place] [address] 50967- 5922 Oct, Encounter for test, result unknown Z32.00 [place] [address] 71282- 0785 Sep, Irregular periods/menstrual cycles N92.6 ; Sore throat J02.9 ; Nausea R11.0 and Right ear impacted cerumen H61.[address] [facility] IN [address] 41656 -3598 Jul, Vaginal discharge N89.8 ; Other specified bacterial agents as the cause of diseases classified elsewhere B96.89 and Acute vaginitis N76.0 [place] [address] 79652- 0926 10 Jun, 2016 Depression, unspecified depression type F32.9 [place] [address] 23979- 3227 23 May, 2016 Vaginal candidiasis B37.3 [place] [address] 21834- 7444 20 May, 2016 Acute pharyngitis, unspecified etiology J02.9 [place] [address] 14930- 6087 19 May, 2016 Depression, unspecified depression type F32.9 [place] [address] 081709- 5883 12 May, 2016 Depression, unspecified depression type F32.9 [place] [address] 45580- 5634 12 May, 2016 Dysthymic disorder F34.1 [facility] [address] [place] [address] 79811 -3573 Apr, Acute suppurative otitis media of right ear without spontaneous rupture of tympanic membrane, recurrence not specified H66.001 [facility] [address] [place] [address] 00185 -2065 Mar, Herpes zoster without complication B02.9 [facility] [address] [place] [id number] [place] [address] 78658 -4219 Dec, Allergic rhinitis J30.9 [facility] [address] [place] [address] 39227 -7014 Dec, Lumbago M54.5 [facility] [address] [place] [address] 48402 -0498 18 Oct, 2015 Dysuria R30.0 and Urinary tract infection N39.0 [facility] [address] [place] [address] 74773 -1723 Sep, Acute nasopharyngitis J00 and Strep pharyngitis J02.0 [place] [address] [place] [address] 65377- 2452 Jul, Upper respiratory tract infection, unspecified type J06.9 [place] [id number] [place] [address] 42869- 4927 Jun, Irritable bowel syndrome without diarrhea K58.9 [place] [address] 67828- 5342 Jun, [place] [id number] [place] [address] 20881- 5925 May, [place] [address] 87023- 5307 May, [place] [address] 65304- 7751 May, Otitis externa of left ear 380.10 [place] [address] 61281- 3615 May, Pain in joint, ankle and foot 719.47 [place] [address] 10126- 0476 Apr, Pain in joint, ankle and foot 719.47 [place] [id number] [place] [address] 24135- 9734 Mar, Dysuria 788.1 and Incontinence in female 625.6 [place] [id number] [place] [address] 08481- 3154 Feb, Plantar fasciitis of right foot 728.71 ; Ankle weakness 719.67 and Ankle pain, chronic 719.47 [place] [id number] [place] [address] 18978- 5531 Feb, [place] [id number] [place] [address] 67493- 4790 Feb, Belching 787.3 and Chest wall pain 786.52 [facility] [place] [facility] [address] [id number] [place] [address]- 2714 14 Dec, 2014 [facility] [place] [facility] [address] [id number] [place] [address]- 3712 13 Dec, 2014 [facility] [place] [facility] [address] [id number] [place] [address]- 0726 16 Nov, 2014 [facility] [place] [facility] [address] [id number] [place] [address]- 1551 16 Nov, 2014 [facility] [place] [facility] [address] [id number] [place] [address]- 5111 Sep, [facility] [place] [facility] [address] [id number] [place] [address]- 7631 Sep, [facility] [place] [facility] [address] [id number] [place] [address]- 7746 Sep, [facility] [place] [facility] [address] [id number] [place] [address]- 5915 Sep, [facility] [place] [facility] [address] [id number] [place] [address]- 9001 Aug, [facility] [place] [facility] [address] [id number] [place] [address]- 4270 30 Aug, 2014 [facility] [place] [facility] [address] [id number] [place] [address]- 8652 Aug, [facility] [place] [facility] [address] [id number] [place] [address]- 9694 Aug, [facility] [place] [facility] [address] [id number] [place] [address]- 6804 Aug, [facility] [place] [facility] [address] [id number] [place] [address]- 0515 Aug, [facility] [place] [facility] [address] [id number] [place] [address]- 9006 Aug, [facility] [place] [facility] [address] [id number] [place] [address]- 4825 Aug, [facility] [place] [facility] [address] [id number] [place] 4166 Aug, [facility] [place] [facility] [address] [id number] [place] 2984 Aug, [facility] [place] [facility] [address] [facility] [id number] [place] [address]- 8529 Aug, [facility] [place] [facility] [address] [id number] [place] 0589 Aug, [facility] [place] [facility] [address] [id number] [place] [address]- 0852 Aug, [facility] [place] [facility] [address] [id number] [place] [address]- 7573 Aug, [facility] [place] [facility] [address] [id number] [place] [address]- 7288 Jul, [facility] [place] [facility] [address] [id number] [place] [address]- 7883 Jul, [facility] [place] [facility] [address] [id number] [place] [address]- 9516 Jul, [facility] [place] [facility] [address] [id number] [place] [address]- 3940 Jul, [facility] [place] [facility] [address] [id number], [place] [address]- 9569 Jul, [facility] [place] [facility] [address] [id number], [place] [address]- 1858 Jul, [facility] [place] [facility] [address] [id number] [place] [address]- 7859 Jul, [facility] [place] [facility] [address] [id number], [place] [address]- 8212 Jun, [facility] [place] [facility] [address] [id number], [place] [address]- 5084 Jun, [facility] [place] [facility] [address] [id number] [place] [address]- 1947 Jun, [facility] [place] [facility] [address] [id number] [place] [address]- 7226 Jun, [facility] [place] [facility] [address] [id number] [place] [address]- 3588 Jun, [facility] [place] [facility] [address] [id number] [place] [address]- 5460 Jun, [facility] [place] [facility] [address] [id number] [place] [address]- 4799 Jun, [facility] [place] [facility] [address] [id number] [place] [address]- 2586 Jun, [facility] [place] [facility] [address] [id number] [place] [address]- 1715 Jun, [facility] [place] [facility] [address] [id number] [place] [address]- 7388 Jun, [facility] [place] [facility] [address] [id number] [place] [address]- 8350 Jun, [facility] [place] [facility] [address] [id number] [place] [address]- 4390 Jun, [facility] [place] [facility] [address] [facility] [id number] [place] [address]- 0695 Jun, [facility] [place] [facility] [address] [id number] [place] [address]- 9406 Jun, [facility] [place] [facility] [address] [id number] [place] [address]- 6327 25 May, 2013 [facility] [place] [facility] [address] [id number] [place] [address]- 6449 24 May, 2014 [facility] [place] [facility] [address] [id number] [place] [address]- 6647 24 May, 2013 [facility] [place] [facility] [address] [id number] [place] [address]- 5853 May, [facility] [place] [facility] [address] [id number] [place] [address]- 2132 May, [facility] [place] [facility] [address] [id number] [place] [address]- 5747 Apr, [facility] [place] [facility] [address] [id number] [place] [address]- 8251 Apr, [facility] [place] [facility] [address] [id number] [place] [address]- 6788 Apr, [facility] [place] [facility] [address] [id number] [place] [address]- 3913 Apr, [facility] [place] [facility] [address] [id number] [place] [address]- 2221 Mar, [facility] [place] [facility] [address] [id number] [place] [address]- 1714 Mar, [facility] [place] [facility] [address] [id number] [place] [address]- 7174 Mar, [facility] [place] [facility] [address] [id number] [place] [address]- 3058 Mar, [facility] [place] [facility] [address] [id number] [place] [address]- 4585 Mar, [facility] [place] [facility] [address] [id number] [place] [address]- 6781 Mar, [facility] [place] [facility] [address] [id number] [place] [address]- 9270 Mar, [facility] [place] [facility] [address] [id number] [place] [address]- 9530 Mar, [facility] [place] [facility] [address] [id number] [place] [address]- 8290 Feb, [facility] [place] [facility] [address] [id number] [place] [address]- 9037 Feb, [facility] [place] [facility] [address] [id number] [place] [address]- 1812 Feb, [facility] [place] [facility] [address] [id number] [place] [address]- 4010 Feb, [facility] [place] [facility] [address] [id number] [place] [address]- 0501 Feb, [facility] [place] [facility] [address] [id number] [place] [address]- 6329 Feb, [facility] [place] [facility] [address] [id number] [place] [address]- 0211 Feb, [facility] [place] [facility] [address] [id number] [place] [address]- 7781 Feb, [facility] [place] [facility] [address] [id number] [place] [address]- 7918 January, [facility] [place] [facility] [address] [id number] [place] [address]- 3725 January, [facility] [place] [facility] [address] [id number] [place] [address]- 9950 January, [facility] [place] [facility] [address] [id number] [place] [address]- 3272 January, [facility] [place] [facility] [address] [id number] [place] [address]- 6025 January, [facility] [place] [facility] [address] [id number] [place] [address]- 8138 January, [facility] [place] [facility] [address] [id number] [place] [address]- 9187 Dec, [facility] [place] [facility] [address] [id number] [place] [address]- 2558 Dec, [facility] [place] [facility] [address] [id number] [place] [address]- 9191 Dec, [facility] [place] [facility] [address] [id number] [place] [address]- 3671 Dec, [facility] [place] [facility] [address] [id number] [place] [address]- 7644 Dec, [facility] [address] [id number] [place] [address]- 6880 Dec, [facility] [place] [facility] [address] [id number] [place] [address] 2546 Dec, [facility] [address] [id number] [place] [address]- 6012 Dec, [facility] [place] [facility] [address] [id number] [place] [address]- 7498 Oct, [facility] [address] [id number] [place] [address]- 6106 Oct, [facility] [address] [id number] [place] [address] Aug, [facility] [place] [facility] [address] [id number] [place] [address] Aug, [facility] [address] [id number] [place] [address] Jul, [facility] [place] [facility] [address] [id number] [place] [address] Jul, [facility] [address] [id number] [place] [address] Mar, [facility] [place] [facility] [address] [id number] [place] [address] Mar, [facility] [place] [facility] [address] [id number] [place] [address] 254 Mar, [facility] [place] [facility] [address] [id number] [place] [address] Feb, [facility] [place] [facility] [address] [id number] [place] [address] Feb, [facility] [place] [facility] [address] [id number] [place] [address] Feb, [facility] [address] [id number] [place] [address] January, [facility] [address] [id number] [place] [address] January, [facility] [address] [id number] [place] [address] January, [facility] [address] [id number] [place] [address] January, [facility] [address] [id number] [place] [address] January, [facility] [address] [id number] [place] [address] January, [facility] [address] [id number] [place] [address] January, [facility] [address] [id number] [place] [address] Dec, [facility] [address] [id number] [place] [address] Dec, [facility] [address] [id number] [place] [address] Dec, [facility] [address] [id number] [place] [address] Dec, [facility] [place] [facility] [address] [id number] [address] Nov, [facility] [place] [facility] [address] [id number] [place] [address] Nov, [facility] [place] [facility] [address] [id number] [place] [address] Nov, [facility] [place] [facility] [address] [id number] [place] [address] Oct, [facility] [place] [facility] [address] [id number] [place] [address] 25 Oct, 2012 [facility] [address] [id number] [place] [address] Oct, [facility] [address] [id number] [place] [address] 19 Oct, 2012 [facility] [address] [id number] [place] [address] Oct, [facility] [address] [id number] [place] [address] 05 Oct, 2012 [facility] [address] [id number] [place] [address] 1993 30 Sep, 2012 [facility] [address] [id number] [place] [address] Sep, [facility] [address] [id number] [place] [address] Sep, [facility] [address] [id number] [place] [address] Sep, [facility] [address] [facility] [id number] [place] [address] Sep, [facility] [address] [facility] [id number] [place] [address] Aug, [facility] [address] [id number] [place] [address] Aug, [facility] [address] [id number] [place] [address] Aug, [facility] [address] [id number] [place] [address] Aug, [facility] [address] [id number] [place] [address] Aug, [facility] [address] [id number] [place] [address] Aug, [facility] [place] [facility] [address] [id number] [place] [address] Jul, [facility] [place] [facility] [address] [id number] [place] [address] Jul, [facility] [place] [facility] [address] [id number] [place] [address] Jul, [facility] [place] [facility] [address] [id number] [place] [address] Jul, [facility] [place] [facility] [address] [id number] [place] [address] Jul, [facility] [place] [facility] [address] [id number] [place] [address] Jul, [facility] [place] [facility] [address] [id number] [place] [address] Jul, [facility] [place] [facility] [address] [id number], [place] [address] 15 Jul, 2012 [facility] [place] [facility] [address] [id number] [place] [address] Jul, [facility] [place] [facility] [address] [id number], [place] [address] Jul, [facility] [place] [facility] [address] [id number], [place] [address] Jul, [facility] [place] [facility] [address] [id number], [place] [address] Jul, [facility] [place] [facility] [address] [id number], [place] [address] Jul, [facility] [place] [facility] [address] [id number], [place] [address] Jul, [facility] [place] [facility] [address] [id number], [place] [address] Jul, [facility] [place] [facility] [address] [id number], [place] [address] 08 Jul, 2012 [facility] [place] [facility] [address] [id number] [place] [address] Jul, [facility] [place] [facility] [address] [facility] [id number], [place] [address] Jul, [facility] [place] [facility] [id number] [place] [address] Jul, [facility] [place] [facility] [address] [id number] [place] [address] Jun, [facility] [place] [facility] [address] [facility] [id number] [place] [address], [place] [address]- [address] Jun, [facility] [place] [facility] [address] [facility] [id number] [place] [address] May, [facility] [place] [facility] [id number] [place] [address] Apr, [facility] [place] [facility] [address] [facility] [id number] [place] [address] Mar, [facility] [place] [facility] [id number] [place] [address] Feb, [facility] [place] [facility] [id number] [address] Feb, [facility] [place] [facility] [id number], [place] [address] Feb, [facility] [place] [facility] [address] [facility] [id number], [place] [address] January, [facility] [place] [facility] [address] [facility] [id number] [place] [address] January, [facility] [place] [facility] [address] [facility] [id number], [place] [address] Dec, [facility] [place] [facility] [id number] [address] Dec, [facility] [place] [facility] [address] [id number] [place] [address] 08 Nov, 2011 [facility] [place] [facility] [address] [id number] [place] [address] 12 Aug, 2011 [facility] [place] [facility] [address] [id number] [place] [address] 16 Jul, 2011 [facility] [place] [facility] [address] [id number] [place] [address] 16 Jul, 2011 [facility] [place] [facility] [address] [id number] [place] [address] 16 Jul, 2011 [facility] [place] [facility] [address] [id number] [place] [address] 12 Jun, 2011 [facility] [place] [facility] [address] [id number] [place] [address] 12 Jun, 2011 [facility] [place] [facility] [address] [id number] [place] [address] 14 May, 2011 [facility] [place] [facility] [address] [id number] [place] [address] 10 Apr, 2011 [facility] [place] [facility] [address] [id number] [place] [address] 11 Jan, 2011 [facility] [place] [facility] [address] [id number] [place] [address] 13 Dec, 2010 [facility] [place] [facility] [address] [id number] [place] [address]- [address] 16 Nov, 2010 [facility] [place] [facility] [address] [id number] [place] [address] 10 Oct, 2010 [facility] [place] [facility] [address] [id number] [place] [address]- [address] 14 Jun, 2010 [facility] [place] [facility] [address] [id number] [place] [address]- [address] 14 Jun, 2010 [facility] [place] [facility] [address] [id number] [place] [address] Oct, [facility] [address] [facility] [id number] [place] [address] Aug, [facility] [address] [facility] [id number], [place] [address] Jul, [facility] [address] [facility] [id number] [place] [address] Dec, IMMUNIZATIONS No Known Immunizations SOCIAL HISTORY Never Assessed REASON FOR VISIT scheduling an appt PLAN OF CARE VITAL SIGNS MEDICATIONS Unknown [...]
--- OUTSIDE RECORDS SUMMARY | 2018-12-13 18:02 | XMS REPORT ---
Author Author ZAYRA GOMEZ Organization [facility], [place] Address [address] [place] [address] Care Team Providers Care Business Instructor Name Role Phone ZAYRA GOMEZ Unavailable PROBLEMS Type Condition ICD9-CM Code [id number] Code Onset Dates Condition Status SNOMED Code Problem Irregular periods/menstrual cycles N92.6 Active 04516410 Problem Depression, unspecified depression type F32.9 Active 85935009 Problem Missed period N92.6 Active 95272971 Problem DANIELLA (generalized anxiety disorder) F41.1 Active 73989846 Problem Anemia, O90.81 Active 895916272 Problem Seasonal allergic rhinitis, unspecified allergic rhinitis trigger J30.2 Active 814883076 Problem Dysthymic disorder F34.1 Active 09398425 Problem Other headache syndrome G44.89 Active 775455835 ALLERGIES No Information ENCOUNTERS Encounter Location Date Diagnosis [facility], [place] [address] [address] January, [facility] [place] [address] 09[address]- 6853 January, [facility] [id number] [place] [address] 64033 -2724 January, Left ankle pain, unspecified chronicity M25.572 [facility] [place] [id number] [place] [address] 43931- 5534 January, [facility] [place] [address] 28[address]- 9648 January, Dysthymic disorder F34.1 and DANIELLA (generalized anxiety disorder) F41.1 [facility] [id number] [place] [address] 76116 -6804 January, Impacted cerumen of both ears H61.23 [facility] [place] [id number] [place] [address] 07451- 5151 Dec, [facility] [place] [address] 23662- 3877 Dec, in multigravida Z34.80 [place] [id number] [place] [address] 17868- 2943 Dec, DANIELLA (generalized anxiety disorder) F41.1 and Dysthymic disorder F34.1 [facility], [place] [id number] [place] [address] 35969- 2976 Dec, [place] [address] 14661- 5462 Nov, [place] [id number] [place] [address] 23237- 7318 Nov, [place] [id number] [place] [address] 38724- 1542 Nov, Painful urination R30.9 ; Vaginal yeast infection B37.3 and Early stage of Z34.90 [place] [id number] [place] [address] 81997- 8239 Nov, in multigravida Z34.80 [place] [id number] [place] [address] 08496- 8307 Nov, Dysfunction of right eustachian tube H69.81 and Bilateral impacted cerumen H61.23 [facility] [place] [id number] [place] [address] 67634- 4242 Nov, [place] [id number] [place] [address] 52222- 3885 Nov, [facility] [place] [id number] [place] [address] 56386- 4635 Nov, [facility] [id number] [place] [address] 36112 -3376 Nov, Missed period N92.6 [facility] [place] [id number] [place] [address] 63580- 5090 Sep, DANIELLA (generalized anxiety disorder) F41.1 and Dysthymic disorder F34.1 [facility] [id number] [place] [address] 27248 -5957 Aug, Acute nasopharyngitis J00 [place] [address] 87547- 6890 Jul, Irregular periods/menstrual cycles N92.6 [place] [id number] [place] [address] 05684- 6669 Jul, Bilateral impacted cerumen H61.23 [place] [address] 21944- 4208 16 Jul, 2017 DANIELLA (generalized anxiety disorder) F41.1 and Dysthymic disorder F34.1 [place] [id number] [place] [address] 94882- 1345 Jun, [place] [address] 41612- 0486 Jun, Dysthymic disorder F34.1 [place] [id number] [place] [address] 61024- 8735 16 Jun, 2017 Anemia, O90.81 ; Lower abdominal pain R10.30 ; Allergic contact dermatitis due to adhesives L23.1 and Other headache syndrome G44.89 [place] [id number] [place] [address] 36294- 6766 Jun, 39 weeks gestation of Z3A.39 [place] [address] 13502- 7713 27 May, 2017 care in third trimester Z34.93 [facility] [id number] [place] [address] 67512 -1129 24 May, 2017 Acute seasonal allergic rhinitis, unspecified trigger J30.2 [place] [id number] [place] [address] 24517- 3690 20 May, 2017 Normal in multigravida Z34.80 [facility] [place] [id number] [place] [address] 67150 -5884 17 May, 2017 Urinary frequency R35.0 and Pain of round ligament N94.[address] 05926- 5697 May, 35 weeks gestation of Z3A.35 [place] [address] 30010- 0907 Apr, High risk sexual behavior Z72.51 and 33 weeks gestation of Z3A.33 [place] [id number] [place] [address] 48266- 1974 Apr, care in third trimester Z34.93 [facility] [address] 04843 -8863 Apr, Bilateral impacted cerumen H61.[address] 36450- 9512 Apr, 30 weeks gestation of Z3A.30 and Encounter for immunization Z23 [place] [id number] [place] [address] 80078- 8071 Mar, 28 weeks gestation of Z3A.28 [place] [id number] [place] [address] 04043- 4463 Mar, [place] [id number] [place] [address] 76795- 5640 Mar, [place] [address] 44485- 1617 Mar, [place] [id number] [place] [address] 85549- 8052 Mar, 26 weeks gestation of Z3A.26 [facility] [place] [address] 10011 -5588 Mar, Acute back pain M54.[address] 18462- 8287 Feb, 24 weeks gestation of Z3A.24 [facility] [address] [place] [address] 39861 -3647 Feb, Lower abdominal pain R10.30 [facility] [address] [place] [address] 41961 -8960 Feb, Gastroenteritis and colitis, viral A08.[address] 62843- 8323 14 Feb, 2017 care in second trimester Z34.[address] 80670- 4049 07 Feb, 2017 [facility] [address] [place] [address] 37700 -3264 Feb, Abscess L02.91 [facility] [address] 60190 -6131 Feb, Vaginal flavia B37.[address] 90203- 8440 January, 20 weeks gestation of Z3A.[address] 56733- 0964 January, [facility] [address] [place] [address] 54953 -1169 January, Seasonal allergic rhinitis, unspecified allergic rhinitis trigger J30.2 [facility] [address] [place] [address] 76817 -0416 January, Dermatitis L30.9 and Bug bites, initial encounter W57.XXXA [address] 24040- 8854 January, Sore throat J02.9 and Seasonal allergic rhinitis, unspecified allergic rhinitis trigger J30.2 [place] [id number] [place] [address] 49741- 7020 January, 16 weeks gestation of Z3A.16 [place] [id number] [place] [address] 71755- 9599 Dec, care in first trimester Z34.91 [place] [address] 26383- 8783 Nov, care in first trimester Z34.91 and Normal in multigravida Z34.80 [facility] [place] [address] 84528 -0057 Oct, Nausea and vomiting during O21.9 [place] [id number] [place] [address] 15601- 4421 Oct, [place] [address] 89073- 8789 Oct, [place] [id number] [place] [address] 27624- 5423 Oct, Encounter for test, result unknown Z32.00 [place] [id number] [place] [address] 67106- 2037 Sep, Irregular periods/menstrual cycles N92.6 ; Sore throat J02.9 ; Nausea R11.0 and Right ear impacted cerumen H61.21 [facility] [place] [id number] [place] [address] 17516 -8667 Jul, Vaginal discharge N89.8 ; Other specified bacterial agents as the cause of diseases classified elsewhere B96.89 and Acute vaginitis N76.0 [place] [id number] [place] [address] 00216- 4689 Jun, Depression, unspecified depression type F32.9 [place] [address] 44196- 5636 23 May, 2016 Vaginal candidiasis B37.3 [place] [id number] [place] [address] 02925- 2547 20 May, 2016 Acute pharyngitis, unspecified etiology J02.9 [place] [id number] [place] [address] 34432- 4079 19 May, 2016 Depression, unspecified depression type F32.9 [place] [address] 89099- 1231 12 May, 2016 Depression, unspecified depression type F32.9 [place] [address] 29683- 4543 May, Dysthymic disorder F34.1 [facility] [address] 98770 -3382 Apr, Acute suppurative otitis media of right ear without spontaneous rupture of tympanic membrane, recurrence not specified H66.001 [facility] [address] 74913 -3087 Mar, Herpes zoster without complication B02.9 [facility] [place] [address] 40459 -7282 Dec, Allergic rhinitis J30.9 [facility] [address] [place] [id number] [place] [address] 78817 -8911 Dec, Lumbago M54.5 [facility] [place] [id number] [place] [address] 33255 -5309 Oct, Dysuria R30.0 and Urinary tract infection N39.0 [facility] [place] [address] 96963 -8009 Sep, Acute nasopharyngitis J00 and Strep pharyngitis J02.0 [place] [address] 00485- 2879 Jul, Upper respiratory tract infection, unspecified type J06.9 [facility] [place] [id number] [place] [address] 83044- 7822 Jun, Irritable bowel syndrome without diarrhea K58.9 [place] [id number] [place] [address] 61195- 9547 Jun, [facility] [place] [id number] [place] [address] 45721- 3527 May, [place] [id number] [place] [address] 11541- 1421 May, [place] [id number] [place] [address] 74031- 9104 May, Otitis externa of left ear 380.10 [place] [id number] [place] [address] 55503- 8400 May, Pain in joint, ankle and foot 719.47 [place] [id number] [place] [address] 73487- 2480 Apr, Pain in joint, ankle and foot 719.47 [place] [id number] [place] [address] 29188- 6559 Mar, Dysuria 788.1 and Incontinence in female 625.6 [place] [id number] [place] [address] 23165- 3569 Feb, Plantar fasciitis of right foot 728.71 ; Ankle weakness 719.67 and Ankle pain, chronic 719.47 [place] [id number] [place] [address] 51945- 0278 Feb, [place] [address] 26506- 2394 Feb, Belching 787.3 and Chest wall pain 786.52 [place] [id number] [place] [address] 09719- 9375 Dec, [place] [address] [place] [address]- 1891 13 Dec, 2014 [facility] [address] [id number] [place] [address]- 3133 16 Nov, 2014 [facility] [place] [facility] [address] [id number] [place] [address]- 5215 16 Nov, 2014 [facility] [place] [facility] [address] [id number] [place] [address]- 0593 Sep, [facility] [place] [facility] [address] [id number] [place] [address]- 3497 Sep, [facility] [place] [facility] [address] [id number] [place] [address]- 5892 Sep, [facility] [place] [facility] [address] [id number] [place] [address]- 4847 Sep, [facility] [address] [id number] [place] [address]- 8095 Aug, [facility] [place] [facility] [address] [id number] [place] [address]- 1779 30 Aug, 2014 [facility] [place] [facility] [address] [id number] [place] [address]- 0488 Aug, [facility] [place] [facility] [address] [id number] [place] [address]- 4112 Aug, [facility] [place] [facility] [address] [id number] [place] [address]- 2423 04 Aug, 2014 [facility] [place] [facility] [address] [id number] [place] [address]- 5304 Aug, [facility] [place] [facility] [address] [id number] [place] [address]- 2812 Aug, [facility] [place] [facility] [address] [id number] [place] [address]- 6819 Aug, [facility] [place] [facility] [address] [id number] [place] [address]- 4800 Aug, [facility] [place] [facility] [address] [id number] [place] [address]- 6003 Aug, [facility] [place] [facility] [address] [id number] [place]- 4646 Aug, [facility] [place] [facility] [address] [id number] [place] 9954 Aug, [facility] [place] [facility] [address] [id number] [place] [address]- 0988 Aug, [facility] [place] [facility] [address] [id number] [place] 9659 Aug, [facility] [place] [facility] [address] [id number] [place] [address]- 2137 Jul, [facility] [place] [facility] [address] [id number] [place] [address]- 1155 Jul, [facility] [place] [facility] [address] [id number] [place] [address]- 4785 Jul, [facility] [place] [facility] [address] [id number] [place] [address]- 5748 Jul, [facility] [place] [facility] [address] [id number] [place] [address]- 4597 Jul, [facility] [place] [facility] [address] [id number] [place] [address]- 5582 Jul, [facility] [place] [facility] [address] [id number] [place] [address]- 9099 Jul, [facility] [place] [facility] [address] [id number] [place] [address]- 2431 Jun, [facility] [place] [facility] [address] [id number] [place] [address]- 9499 Jun, [facility] [place] [facility] [address] [id number] [place] [address]- 0014 Jun, [facility] [place] [facility] [address] [id number] [place] [address]- 0878 Jun, [facility] [place] [facility] [address] [id number] [place] [address]- 4185 Jun, [facility] [place] [facility] [address] [id number] [place] 2573 Jun, [facility] [place] [facility] [address] [id number] [place] 2299 Jun, [facility] [place] [facility] [address] [id number] [place] [address]- 0562 Jun, [facility] [place] [facility] [address] [id number] [place] [address]- 6246 Jun, [facility] [place] [facility] [address] [id number] [place] [address]- 5994 Jun, [facility] [place] [facility] [address] [id number] [place] [address]- 5130 Jun, [facility] [place] [facility] [address] [id number], [place] [address]- 6744 Jun, [facility] [place] [facility] [address] [id number], [place] [address]- 5750 Jun, [facility] [place] [facility] [address] [id number], [place] [address]- 5885 Jun, [facility] [place] [facility] [address] [id number], [place] [address]- 6793 25 May, 2013 [facility] [place] [facility] [address] [id number], [place] [address]- 8368 24 May, 2013 [facility] [place] [facility] [address] [id number], [place] [address]- 8841 24 May, 2013 [facility] [place] [facility] [address] [id number], [place] [address]- 8886 05 Sep, 2013 [facility] [place] [facility] [address] [id number], [place] [address]- 7860 05 May, 2013 [facility] [place] [facility] [address] [id number] [place] [address]- 8625 Apr, [facility] [place] [facility] [address] [id number] [place] [address]- 0549 Apr, [facility] [place] [facility] [address] [id number] [place] [address]- 9836 Apr, [facility] [place] [facility] [address] [id number] [place] [address]- 7944 Apr, [facility] [place] [facility] [address] [id number] [place] [address]- 7379 Mar, [facility] [place] [facility] [address] [id number] [place] [address]- 9109 Mar, [facility] [place] [facility] [address] [id number] [place] [address]- 5273 Mar, [facility] [place] [facility] [address] [id number] [place] [address]- 2109 Mar, [facility] [place] [facility] [address] [id number] [place] [address]- 0751 Mar, [facility] [place] [facility] [address] [id number] [place] [address]- 8647 Mar, [facility] [place] [facility] [address] [id number] [place] [address]- 9655 Mar, [facility] [place] [facility] [address] [id number] [place] [address]- 2102 Mar, [facility] [place] [facility] [address] [id number] [place] [address]- 5824 Feb, [facility] [place] [facility] [address] [id number] [place] [address]- 4792 Feb, [facility] [place] [facility] [address] [id number] [place] [address]- 6674 Feb, [facility] [place] [facility] [address] [id number] [place] [address]- 8093 Feb, [facility] [place] [facility] [address] [id number] [place] [address]- 2344 Feb, [facility] [place] [facility] [address] [id number] [place] [address]- 2815 Feb, [facility] [place] [facility] [address] [id number] [place] [address]- 6023 Feb, [facility] [place] [facility] [address] [id number] [place] [address]- 1531 Feb, [facility] [place] [facility] [address] [id number] [place] [address]- 6056 January, [facility] [place] [facility] [address] [id number] [place] [address]- 6224 January, [facility] [place] [facility] [address] [id number] [place] [address]- 9846 January, [facility] [place] [facility] [address] [id number] [place] [address]- 6656 January, [facility] [place] [facility] [address] [id number] [place] [address]- 2042 January, [facility] [place] [facility] [address] [id number] [place] [address]- 0732 January, [facility] [place] [facility] [address] [id number] [place] [address]- 4018 Dec, [facility] [place] [facility] [address] [id number] [place] [address]- 8255 Dec, [facility] [place] [facility] [address] [id number] [place] [address]- 3647 Dec, [facility] [place] [facility] [address] [id number] [place] [address]- 8953 Dec, [facility] [place] [facility] [address] [id number] [place] [address]- 2215 Dec, [facility] [place] [facility] [address] [id number] [place] [address]- 1063 Dec, [facility] [address] [id number] [place] [address]- 6210 Dec, [facility] [place] [facility] [address] [id number] [place] 2389 Dec, [facility] [place] [facility] [address] [id number] [place] [address]- 4862 Oct, [facility] [place] [facility] [address] [id number] [place] [address]- 4333 Oct, [facility] [place] [facility] [address] [id number] [place] [address]- 4611 Aug, [facility] [place] [facility] [address] [id number] [place] [address]- 1698 Aug, [facility] [address] [id number] [place] [address]- 9804 Jul, [facility] [place] [facility] [address] [id number] [place] [address]- 2149 Jul, [facility] [place] [facility] [address] [id number] [place] [address]- 0158 Mar, [facility] [place] [facility] [address] [facility] [id number] [place] [address]- 3012 Mar, [facility] [place] [facility] [address] [id number] [place] [address] Mar, [facility] [place] [facility] [address] [id number] [place] [address] Feb, [facility] [place] [facility] [address] [id number] [place] [address] Feb, [facility] [place] [facility] [address] [id number] [place] [address] Feb, [facility] [place] [facility] [address] [facility] [id number] [place] [address] January, [facility] [place] [facility] [address] [id number] [place] [address] January, [facility] [address] [id number] [place] [address] January, [facility] [address] [id number] [place] [address] January, [facility] [address] [id number] [place] [address] January, [facility] [address] [id number] [place] [address] January, [facility] [address] [id number] [place] [address] January, [facility] [address] [id number] [place] [address] Dec, [facility] [address] [id number] [place] [address] Dec, [facility] [address] [id number] [place] [address] Dec, [facility] [address] [id number] [place] [address] Dec, [facility] [address] [id number] [place] Nov, [facility] [address] [id number] [place] [address] Nov, [facility] [address] [id number] [place] [address] Nov, [facility] [place] [facility] [address] [id number] [place] [address] Oct, [facility] [place] [facility] [address] [id number] [place] [address] Oct, [facility] [address] [id number] [place] [address] Oct, [facility] [address] [id number] [place] [address] Oct, [facility] [address] [id number] [place] [address] Oct, [facility] [address] [id number] [place] [address] Oct, [facility] [place] [facility] [address] [id number] [place] [address] Sep, [facility] [address] [id number] [place] [address] Sep, [facility] [address] [id number] [place] [address] Sep, [facility] [address] [id number] [place] [address] Sep, [facility] [address] [id number] [place] [address] Sep, [facility] [address] [id number], [place] [address] Aug, [facility] [address] [id number] [place] [address] Aug, [facility] [address] [id number], [place] [address] Aug, [facility] [place] [facility] [address] [id number], [place] [address] Aug, [facility] [place] [facility] [address] [id number] [place] [address] Aug, [facility] [place] [facility] [address] [id number], [place] [address] Aug, [facility] [place] [facility] [address] [id number] [place] [address] Jul, [facility] [place] [facility] [address] [id number] [place] [address] 29 Jul, 2012 [facility] [place] [facility] [address] [id number] [place] [address] 29 Jul, 2012 [facility] [place] [facility] [address] [id number] [place] [address] 29 Jul, 2012 [facility] [place] [facility] [address] [id number] [place] [address] Jul, [facility] [place] [facility] [address] [id number] [place] [address] 20 Jul, 2012 [facility] [place] [facility] [address] [id number] [place] [address] 15 Jul, 2012 [facility] [place] [facility] [address] [id number] [place] [address]- [address] 15 Jul, 2012 [facility] [place] [facility] [address] [id number] [place] [address] 14 Jul, 2012 [facility] [place] [facility] [address] [id number] [place] [address] Jul, [facility] [place] [facility] [address] [id number] [place] [address] Jul, [facility] [place] [facility] [address] [id number] [place] [address] Jul, [facility] [place] [facility] [address] [id number] [place] [address] Jul, [facility] [place] [facility] [address] [id number] [place] [address] Jul, [facility] [place] [facility] [address] [id number] [place] [address] 2006 Jul, [facility] [place] [facility] [address] [id number] [place] [address] Jul, [facility] [place] [facility] [address] [id number] [place] [address] Jul, [facility] [place] [facility] [address] [id number] [place] [address] Jul, [facility] [place] [facility] [address] [id number] [place] [address] Jul, [facility] [place] [facility] [address] [id number] [place] [address] Jun, [facility] [place] [facility] [address] [id number] [place] [address] Jun, [facility] [place] [facility] [address] [id number] [place] [address] May, [facility] [place] [facility] [address] [id number] [place] [address] Apr, [facility] [place] [facility] [address] [id number] [place] [address] Mar, [facility] [place] [facility] [address] [id number] [place] [address] Feb, [facility] [place] [facility] [address] [id number] [place] [address] Feb, [facility] [place] [facility] [address] [id number] [place] [address] Feb, [facility] [place] [facility] [address] [id number] [place] [address] January, [facility] [place] [facility] [address] [id number] [place] [address] January, [facility] [place] [facility] [address] [id number] [place] [address] Dec, [facility] [place] [facility] [address] [id number] [place] [address] Dec, [facility] [place] [facility] [address] [id number] [place] [address] Nov, [facility] [place] [facility] [address] [id number] [place] [address] 12 Aug, 2011 [facility] [place] [facility] [address] [id number] [place] [address] 16 Jul, 2011 [facility] [place] [facility] [address] [id number] [place] [address]- [address] 16 Jul, 2011 [facility] [place] [facility] [address] [id number] [place] [address] 16 Jul, 2011 [facility] [place] [facility] [address] [id number] [place] [address] 12 Jun, 2011 [facility] [place] [facility] [address] [id number] [place] [address]- [address] 12 Jun, 2011 [facility] [place] [facility] [address] [id number] [place] [address] 14 May, 2011 [facility] [place] [facility] [address] [id number] [place] [address] 10 Apr, 2011 [facility] [place] [facility] [address] [id number] [place] [address] January, [facility] [place] [facility] [address] [id number] [place] [address] 13 Dec, 2010 [facility] [place] [facility] [address] [id number] [place] [address] 16 Nov, 2010 [facility] [place] [facility] [address] [id number] [place] [address] 10 Oct, 2010 [facility] [place] [facility] [address] [id number], [place] [address] 14 Jun, 2010 [facility] [place] [facility] [address] [id number] [place] [address] 14 Jun, 2010 [facility] [place] [facility] [address] [id number], [place] [address] 11 Oct, 2009 [facility] [place] [facility] [address] [id number], [place] [address] 03 Aug, 2009 [facility] [place] [address] [facility] [id number] [place] [address] Jul, [facility] [place] [address] [facility] [id number][place] [id number] Dec, IMMUNIZATIONS No Known Immunizations SOCIAL HISTORY Never Assessed REASON FOR VISIT Post phone call PLAN OF CARE VITAL SIGNS MEDICATIONS Unknown [...]
--- OUTSIDE RECORDS SUMMARY | 2018-12-13 18:04 | XMS REPORT ---
Author Author BAKARI HAN Organization [facility] Address [address] [place] [address] Care Team Providers Care Welding Specialist Name Role Phone BAKARI HAN Unavailable PROBLEMS Type Condition ICD9-CM Code OIN29-GG Code Onset Dates Condition Status SNOMED Code Problem Irregular periods/menstrual cycles N92.6 Active 61608277 Problem Depression, unspecified depression type F32.9 Active 85792333 Problem Missed period N92.6 Active 15999053 Problem DANIELLA (generalized anxiety disorder) F41.1 Active 40699190 Problem Anemia, O90.81 Active 714592860 Problem Seasonal allergic rhinitis, unspecified allergic rhinitis trigger J30.2 Active 280464873 Problem Dysthymic disorder F34.1 Active 82633389 Problem Other headache syndrome G44.89 Active 512693665 ALLERGIES No Information ENCOUNTERS Encounter Location Date Diagnosis [facility] [id number] [place] [address] 93106- 0892 January, [place] [id number] [place] [address] 65469- 0377 January, [facility] [id number] [place] [address] 96936 -7380 January, Left ankle pain, unspecified chronicity M25.572 [facility] [id number] [place] [address] 98776- 8153 January, [facility] [address] 83749- 5379 January, Dysthymic disorder F34.1 and DANIELLA (generalized anxiety disorder) F41.1 [facility] [id number] [place] [address] 06867 -0351 January, Impacted cerumen of both ears H61.23 [facility] [id number] [address] Dec, [facility] [id number] [place] [address] 68853- 1727 Dec, in multigravida Z34.80 [facility] [id number] [place] [address] 66705- 5432 Dec, DANIELLA (generalized anxiety disorder) F41.1 and Dysthymic disorder F34.1 [facility] [id number] [place] [address] 46939- 2759 Dec, [place] [id number] [place] [address] 52466- 5330 Nov, [facility] [id number] [place] [address] 88575- 9161 Nov, [facility] [id number] [place] [address] 17050- 9838 Nov, Painful urination R30.9 ; Vaginal yeast infection B37.3 and Early stage of Z34.90 [facility] [id number] [place] [address] 25803- 8830 Nov, in multigravida Z34.80 [facility] [id number] [place] [address] 59491- 5250 Nov, Dysfunction of right eustachian tube H69.81 and Bilateral impacted cerumen H61.23 [facility] [id number] [place] [address] 75185- 6645 Nov, [facility] [id number] [place] [address] 86627- 2548 Nov, [facility] [id number] [place] [address] 96008- 2867 Nov, [facility] [id number] [place] [address] 64215 -7716 04 Mar, [address] [facility] [id number] [place] [address] 73644- 5151 Sep, DANIELLA (generalized anxiety disorder) F41.1 and Dysthymic disorder F34.1 [facility] [id number] [place] [address] 43221 -2579 Aug, Acute nasopharyngitis J00 [place] [address] 54921- 8733 Jul, Irregular periods/menstrual cycles N92.6 [place] [address] 81693- 9232 Jul, Bilateral impacted cerumen H61.23 [place] [address] 99475- 3452 Jul, DANIELLA (generalized anxiety disorder) F41.1 and Dysthymic disorder F34.1 [place] [address] 39797- 3553 Jun, [place] [address] 47509- 7886 Jun, Dysthymic disorder F34.1 [place] [id number] [place] [address] 07248- 2733 Jun, Anemia, O90.81 ; Lower abdominal pain R10.30 ; Allergic contact dermatitis due to adhesives L23.1 and Other headache syndrome G44.89 [place] [id number] [place] [address] 52644- 2332 Jun, 39 weeks gestation of Z3A.39 [place] [address] 37346- 7745 27 May, 2017 care in third trimester Z34.93 [facility] [id number] [place] [address] 49546 -3269 May, Acute seasonal allergic rhinitis, unspecified trigger J30.2 [place] [id number] [place] [address] 93429- 9088 20 May, 2017 Normal in multigravida Z34.80 [facility] [place] [id number] [place] [address] 42744 -6773 17 May, 2017 Urinary frequency R35.0 and Pain of round ligament N94.9 [place] [address] 16567- 9187 May, 35 weeks gestation of Z3A.35 [place] [address] 64520- 4720 Apr, High risk sexual behavior Z72.51 and 33 weeks gestation of Z3A.33 [place] [address] 20457- 4867 Apr, care in third trimester Z34.93 [facility] [place] [address] 53247 -8180 Apr, Bilateral impacted cerumen H61.23 [place] [id number] [place] [address] 99211- 0065 Apr, 30 weeks gestation of Z3A.30 and Encounter for immunization Z23 [place] [id number] [place] [address] 52764- 8432 Mar, 28 weeks gestation of Z3A.28 [place] [id number] [place] [address] 51001- 8358 Mar, [place] [id number] [place] [address] 69809- 3177 Mar, [place] [address] 78690- 7420 Mar, [place] [id number] [place] [address] 87260- 7106 Mar, 26 weeks gestation of Z3A.26 [facility] [place] [address] [place] [address] -0363 Mar, Acute back pain M54.[address] 75340- 7137 Feb, 24 weeks gestation of Z3A.24 [facility] [address] [place] [address] 86226 -4405 Feb, Lower abdominal pain R10.30 [facility] [address] [place] [address] 32867 -4623 Feb, Gastroenteritis and colitis, viral A08.[address] 92386- 5081 14 Feb, 2017 care in second trimester Z34.[address] 88246- 6625 07 Feb, 2017 [facility] [address] [place] [address] 59812 -3769 04 Feb, 2017 Abscess L02.91 [facility] [address] 80515 -3809 Feb, Vaginal flavia B37.[address] 65977- 1705 January, 20 weeks gestation of Z3A.[address] 23918- 1240 January, [facility] [address] [place] [address] 77248 -8946 January, Seasonal allergic rhinitis, unspecified allergic rhinitis trigger J30.2 [facility] [address] [place] [address] 65324 -2827 January, Dermatitis L30.9 and Bug bites, initial encounter W57.XXXA [address] 46234- 6382 11 May, 2017 Sore throat J02.9 and Seasonal allergic rhinitis, unspecified allergic rhinitis trigger J30.2 [place] [id number] [place] [address] 79594- 9321 January, 16 weeks gestation of Z3A.16 [place] [id number] [place] [address] 57239- 0746 Dec, care in first trimester Z34.91 [place] [address] 71507- 6591 Nov, care in first trimester Z34.91 and Normal in multigravida Z34.80 [facility] [place] [address] 12053 -3780 Oct, Nausea and vomiting during O21.9 [place] [address] 18471- 0773 Oct, [place] [address] 71200- 3765 Oct, [place] [address] 56326- 4281 Oct, Encounter for test, result unknown Z32.00 [place] [id number] [place] [address] 09487- 0924 Sep, Irregular periods/menstrual cycles N92.6 ; Sore throat J02.9 ; Nausea R11.0 and Right ear impacted cerumen H61.21 [facility] [place] [id number] [place] [address] 80335 -4425 Jul, Vaginal discharge N89.8 ; Other specified bacterial agents as the cause of diseases classified elsewhere B96.89 and Acute vaginitis N76.0 [place] [id number] [place] [address] 31654- 6162 Jun, Depression, unspecified depression type F32.9 [place] [address] 26655- 1608 23 May, 2016 Vaginal candidiasis B37.3 [place] [id number] [place] [address] 70544- 8805 20 May, 2016 Acute pharyngitis, unspecified etiology J02.9 [place] [id number] [place] [address] 07084- 1612 19 May, 2016 Depression, unspecified depression type F32.9 [place] [address] 53836- 1908 12 May, 2016 Depression, unspecified depression type F32.9 [place] [address] 13738- 8385 12 May, 2016 Dysthymic disorder F34.1 [facility] [address] 24685 -0132 10 Apr, 2016 Acute suppurative otitis media of right ear without spontaneous rupture of tympanic membrane, recurrence not specified H66.001 [facility] [id number] [place] [address] 70864 -6669 Mar, Herpes zoster without complication B02.9 [facility] [address] [place] [id number] [place] [address] 25816 -2655 Dec, Allergic rhinitis J30.9 [facility] [address] [place] [id number] [place] [address] 15052 -6359 Dec, Lumbago M54.5 [facility] [address] 24733 -3012 18 Oct, 2015 Dysuria R30.0 and Urinary tract infection N39.0 [facility] [address] [place] [address] 55480 -4676 Sep, Acute nasopharyngitis J00 and Strep pharyngitis J02.0 [place] [id number] [place] [address] 32719- 1949 Jul, Upper respiratory tract infection, unspecified type J06.9 [place] [id number] [place] [address] 28744- 3605 Jun, Irritable bowel syndrome without diarrhea K58.9 [place] [id number] [place] [address] 66801- 4163 Jun, [place] [id number] [place] [address] 64646- 2952 May, [place] [address] 56399- 1211 May, [place] [address] 94891- 7061 May, Otitis externa of left ear 380.10 [place] [address] 22104- 3127 May, Pain in joint, ankle and foot 719.47 [place] [address] 49040- 4976 Apr, Pain in joint, ankle and foot 719.47 [place] [address] 09177- 2573 Mar, Dysuria 788.1 and Incontinence in female 625.6 [place] [id number] [place] [address] 28722- 5242 30 Feb, 2015 Plantar fasciitis of right foot 728.71 ; Ankle weakness 719.67 and Ankle pain, chronic 719.47 [place] [id number] [place] [address] 48952- 1406 Feb, [place] [address] 85783- 5836 Feb, Belching 787.3 and Chest wall pain 786.52 [place] [id number] [place] [address] 54408- 8963 Dec, [place] [address] 51034- 5797 Dec, [facility] [place] [facility] [address] [id number] [place] [address]- 0695 Nov, [facility] [place] [facility] [address] [id number] [place] [address]- 2443 Nov, [facility] [place] [facility] [address] [id number] [place] [address]- 9485 Sep, [facility] [place] [facility] [address] [id number] [place] [address]- 9968 Sep, [facility] [place] [facility] [address] [id number] [place] [address]- 0922 Sep, [facility] [place] [facility] [address] [id number] [place] [address]- 7194 Sep, [facility] [place] [facility] [address] [id number] [place] [address]- 5803 Aug, [facility] [place] [facility] [address] [id number] [place] [address]- 2646 Aug, [facility] [place] [facility] [address] [id number] [place] [address]- 2352 Aug, [facility] [place] [facility] [address] [id number] [place] [address]- 9351 Aug, [facility] [place] [facility] [address] [id number] [place] [address]- 9026 04 Aug, 2014 [facility] [place] [facility] [address] [id number] [place] [address]- 8308 Aug, [facility] [place] [facility] [address] [id number] [place] [address]- 5929 Aug, [facility] [place] [facility] [address] [id number] [place] [address]- 0093 Aug, [facility] [place] [facility] [address] [id number] [place] 6404 Aug, [facility] [place] [facility] [address] [id number] [place] [address]- 9444 Aug, [facility] [place] [facility] [address] [id number] [place] [address]- 4905 Aug, [facility] [place] [facility] [address] [id number] [place] 9295 Aug, [facility] [place] [facility] [address] [id number] [place] [address]- 4689 Aug, [facility] [place] [facility] [address] [id number] [place] [address]- 3746 Aug, [facility] [place] [facility] [address] [id number] [place] [address]- 7249 Jul, [facility] [place] [facility] [address] [id number] [place] [address]- 3836 Jul, [facility] [place] [facility] [address] [id number] [place] [address]- 7225 Jul, [facility] [place] [facility] [address] [id number] [place] [address]- 8799 Jul, [facility] [place] [facility] [address] [id number] [place] [address]- 9863 Jul, [facility] [place] [facility] [address] [id number] [place] [address]- 8947 Jul, [facility] [place] [facility] [address] [id number] [place] [address]- 6760 Jul, [facility] [place] [facility] [address] [id number] [place] [address]- 3981 Jun, [facility] [place] [facility] [address] [id number] [place] 7584 Jun, [facility] [place] [facility] [address] [id number] [place] [address]- 4380 Jun, [facility] [place] [facility] [address] [id number] [place] [address]- 4080 Jun, [facility] [place] [facility] [address] [id number] [place] [address]- 7271 Jun, [facility] [place] [facility] [address] [id number] [place] [address]- 2861 Jun, [facility] [place] [facility] [address] [id number] [place] [address]- 9381 Jun, [facility] [place] [facility] [address] [id number] [place] [address]- 9914 Jun, [facility] [place] [facility] [address] [id number] [place] [address]- 6513 Jun, [facility] [place] [facility] [address] [id number] [place] [address]- 8234 Jun, [facility] [place] [facility] [address] [id number] [place] [address]- 2166 Jun, [facility] [place] [facility] [address] [id number] [place] [address]- 0084 Jun, [facility] [place] [facility] [address] [id number] [place] [address]- 4714 Jun, [facility] [place] [facility] [address] [id number] [place] [address]- 8933 Jun, [facility] [place] [facility] [address] [id number], [place] [address]- 3973 25 May, 2013 [facility] [place] [facility] [address] [id number], [place] [address]- 6199 24 May, 2013 [facility] [place] [facility] [address] [id number] [place] [address]- 0354 24 May, 2013 [facility] [place] [facility] [address] [id number] [place] [address]- 1296 05 Sep, 2013 [facility] [place] [facility] [address] [id number] [place] [address]- 4834 05 May, 2013 [facility] [place] [facility] [address] [id number] [place] [address]- 2870 Apr, [facility] [place] [facility] [address] [id number] [place] [address]- 5781 Apr, [facility] [place] [facility] [address] [id number] [place] [address]- 9160 Apr, [facility] [place] [facility] [address] [id number] [place] [address]- 0574 Apr, [facility] [place] [facility] [address] [id number] [place] [address]- 1482 Mar, [facility] [place] [facility] [address] [id number] [place] [address]- 3272 Mar, [facility] [place] [facility] [address] [id number] [place] [address]- 8710 Mar, [facility] [place] [facility] [address] [id number] [place] [address]- 7562 Mar, [facility] [place] [facility] [address] [id number] [place] [address]- 3718 Mar, [facility] [place] [facility] [address] [id number] [place] [address]- 3852 Mar, [facility] [place] [facility] [address] [id number] [place] [address]- 6287 Mar, [facility] [place] [facility] [address] [id number] [place] [address]- 6251 Mar, [facility] [place] [facility] [address] [id number] [place] [address]- 2764 Feb, [facility] [place] [facility] [address] [id number] [place] [address]- 0661 Feb, [facility] [place] [facility] [address] [id number] [place] [address]- 1101 Feb, [facility] [place] [facility] [address] [id number] [place] [address]- 6692 Feb, [facility] [place] [facility] [address] [id number] [place] [address]- 0847 Feb, [facility] [place] [facility] [address] [id number] [place] [address]- 3072 Feb, [facility] [place] [facility] [address] [id number] [place] [address]- 7112 Feb, [facility] [place] [facility] [address] [id number] [place] [address]- 4152 Feb, [facility] [place] [facility] [address] [id number] [place] [address]- 6907 January, [facility] [place] [facility] [address] [id number] [place] [address]- 4336 January, [facility] [place] [facility] [address] [id number] [place] [address]- 1988 January, [facility] [place] [facility] [address] [id number] [place] [address]- 8444 January, [facility] [place] [facility] [address] [id number] [place] [address]- 8345 January, [facility] [place] [facility] [address] [id number] [place] [address]- 1553 January, [facility] [place] [facility] [address] [id number] [place] [address]- 6853 Dec, [facility] [place] [facility] [address] [id number] [place] [address]- 0768 Dec, [facility] [place] [facility] [address] [id number] [place] [address]- 6734 Dec, [facility] [place] [facility] [address] [id number] [place] [address]- 0445 Dec, [facility] [place] [facility] [address] [id number] [place] [address]- 5142 Dec, [facility] [place] [facility] [address] [id number] [place] [address]- 9354 Dec, [facility] [place] [facility] [address] [id number] [place] [address]- 9021 Dec, [facility] [place] [facility] [address] [id number] [place] [address] Dec, [facility] [place] [facility] [address] [id number] [place] [address] Oct, [facility] [place] [facility] [address] [id number] [place] [address] Oct, [facility] [place] [facility] [address] [id number] [place] [address] Aug, [facility] [place] [facility] [address] [id number] [place] [address] Aug, [facility] [place] [facility] [address] [id number] [place] [address] Jul, [facility] [place] [facility] [address] [id number] [place] [address] Jul, [facility] [place] [facility] [address] [id number] [place] [address] Mar, [facility] [place] [facility] [address] [id number] [place] [address] Mar, [facility] [place] [facility] [address] [id number] [place] [address] Mar, [facility] [place] [facility] [address] [id number] [address] Feb, [facility] [place] [facility] [address] [id number] [place] [address] Feb, [facility] [place] [facility] [address] [id number] [place] [address] Feb, [facility] [place] [facility] [address] [id number] [place] [address] January, [facility] [place] [facility] [address] [id number] [place] [address] January, [facility] [address] [id number] [place] [address] January, [facility] [address] [id number] [place] [address] January, [facility] [address] [id number] [place] [address] January, [facility] [address] [id number] [place] [address] January, [facility] [address] [id number] [place] [address] January, [facility] [address] [id number] [place] [address] Dec, [facility] [address] [id number] [place] [address] Dec, [facility] [address] [id number] [place] [address] Dec, [facility] [address] [id number] [place] [address] Dec, [facility] [address] [id number] [place] [address] Nov, [facility] [address] [id number] [place] [address] Nov, [facility] [address] [id number] [place] [address] Nov, [facility] [address] [id number] [place] [address] Oct, [facility] [address] [id number] [place] [address] Oct, [facility] [address] [id number] [place] [address] Oct, [facility] [address] [id number] [place] [address] Oct, [facility] [place] [facility] [address] [id number] [place] [address] Oct, [facility] [place] [facility] [address] [id number] [place] [address] Oct, [facility] [place] [facility] [address] [id number] [place] [address] Sep, [facility] [address] [id number] [place] [address] Sep, [facility] [address] [id number] [place] [address] Sep, [facility] [address] [id number] [place] [address] Sep, [facility] [place] [facility] [address] [id number] [place] [address] Sep, [facility] [address] [id number] [place] [address] Aug, [facility] [place] [facility] [address] [id number] [place] [address] Aug, [facility] [place] [facility] [address] [id number] [place] [address] Aug, [facility] [place] [facility] [address] [id number], [place] [address] Aug, [facility] [place] [facility] [address] [id number] [place] [address] Aug, [facility] [place] [facility] [address] [id number] [place] [address] Aug, [facility] [place] [facility] [address] [id number] [place] [address] Jul, [facility] [place] [facility] [address] [id number] [place] [address] 29 Jul, 2012 [facility] [place] [facility] [address] [id number] [place] [address] 29 Jul, 2012 [facility] [place] [facility] [address] [id number] [place] [address] 29 Jul, 2012 [facility] [place] [facility] [address] [id number] [place] [address] Jul, [facility] [place] [facility] [address] [id number] [place] [address] 20 Jul, 2012 [facility] [place] [facility] [address] [id number] [place] [address] 15 Jul, 2012 [facility] [place] [facility] [address] [id number] [place] [address] 15 Jul, 2012 [facility] [place] [facility] [address] [id number] [place] [address] 14 Jul, 2012 [facility] [place] [facility] [address] [id number] [place] [address] Jul, [facility] [place] [facility] [address] [id number] [place] [address] Jul, [facility] [place] [facility] [address] [id number] [place] [address] Jul, [facility] [place] [facility] [address] [id number] [place] [address] Jul, [facility] [place] [facility] [address] [id number] [place] [address] Jul, [facility] [place] [facility] [address] [id number] [place] [address] Jul, [facility] [place] [facility] [address] [id number] [place] [address] Jul, [facility] [place] [facility] [address] [id number] [place] [address] Jul, [facility] [place] [facility] [address] [id number] [place] [address] Jul, [facility] [place] [facility] [address] [id number] [place] [address] Jul, [facility] [place] [facility] [address] [id number] [place] [address] Jun, [facility] [place] [facility] [address] [id number] [place] [address] Jun, [facility] [place] [facility] [address] [id number] [place] [address] May, [facility] [place] [facility] [address] [id number] [place] [address] Apr, [facility] [place] [facility] [address] [id number] [place] [address] Mar, [facility] [place] [facility] [address] [id number] [place] [address] Feb, [facility] [place] [facility] [address] [id number] [place] [address] Feb, [facility] [place] [facility] [address] [id number] [place] [address] Feb, [facility] [place] [facility] [address] [id number] [place] [address] January, [facility] [place] [facility] [address] [id number] [place] [address] January, [facility] [place] [facility] [address] [id number] [place] [address] Dec, [facility] [place] [facility] [address] [id number] [place] [address] Dec, [facility] [place] [facility] [address] [id number] [place] [address] Nov, [facility] [place] [facility] [address] [id number], [place] [address] 12 Aug, 2011 [facility] [place] [facility] [address] [id number] [place] [address] 16 Jul, 2011 [facility] [place] [facility] [address] [id number] [place] [address] 16 Jul, 2011 [facility] [place] [facility] [address] [id number] [place] [address] 16 Jul, 2011 [facility] [place] [facility] [address] [id number] [place] [address] 12 Jun, 2011 [facility] [place] [facility] [address] [id number] [place] [address] 12 Jun, 2011 [facility] [place] [facility] [address] [id number] [place] [address] 14 May, 2011 [facility] [place] [facility] [address] [id number] [place] [address] 10 Apr, 2011 [facility] [place] [facility] [address] [id number] [place] [address] January, [facility] [place] [facility] [address] [id number] [place] [address] 13 Dec, 2010 [facility] [place] [facility] [address] [id number] [place] [address] 16 Nov, 2010 [facility] [place] [facility] [address] [id number], [place] [address] 10 Oct, 2010 [facility] [place] [facility] [address] [id number], [place] [address] 14 Jun, 2010 [facility] [place] [facility] [address] [id number] [place] [address] 14 Jun, 2010 [facility] [place] [facility] [address] [id number] [place] [address]- [address] 11 Oct, 2009 [facility] [place] [facility] [address] [id number] [place] [address] 03 Aug, 2009 [facility] [place] [facility] [address] [facility] [id number] [place] [address] Jul, [facility] [address] [facility] [id number], [place] [address] Dec, IMMUNIZATIONS No Known Immunizations SOCIAL HISTORY Never Assessed REASON FOR VISIT Depression. PLAN OF CARE Activity Details Follow Up prn Reason: VITAL SIGNS MEDICATIONS Medication Instructions Dosage Frequency Start Date End Date Duration Status Oxycodone-Acetaminophen 5-325 MG Orally every 6 hrs 1 tablet as needed 6h Active Colace 100 MG Orally Once a day 1 capsule as needed 24h Active RESULTS No Results PROCEDURES Procedure Date Ordered Result Body Site Psychotherapy, patient &/family, 30 minutes, established patient Jul 15, 2017 INSTRUCTIONS MEDICATIONS ADMINISTERED No Known Medications [...]
--- OUTSIDE RECORDS SUMMARY | 2018-12-13 18:12 | XMS REPORT ---
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 Name Role Phone AGUSTINA STANFORD Unavailable PROBLEMS Type Condition ICD9-CM Code PKA12-EU Code Onset Dates Condition Status SNOMED Code Problem Depression, unspecified depression type F32.9 Active 71695307 Problem Seasonal allergic rhinitis, unspecified allergic rhinitis trigger J30.2 Active 107564915 Problem Irregular periods/menstrual cycles N92.6 Active 27175086 Problem Seasonal allergies J30.2 Active 851060877 Problem Missed period N92.6 Active 50089617 Problem Other headache syndrome G44.89 Active 134021355 Problem Anemia, O90.81 Active 979781725 Problem DANIELLA (generalized anxiety disorder) F41.1 Active 26008910 Problem Dysthymic disorder F34.1 Active 70595198 ALLERGIES Substance Reaction Event Type Date Status Cefaclor Unknown Drug Allergy Mar, Active ENCOUNTERS Encounter Location Date Diagnosis [facility] [id number] [place] [address] 58068 -2209 Mar, Pain of left calf M79.662 and Muscle spasm of left calf M62.831 [place] [address] [place] [address] 45018- 3686 Mar, care in second trimester Z34.92 [facility] [place] [address] [place] [address] 36697- 3799 Mar, Bilateral impacted cerumen H61.23 [place] [address] [id number] [place] [address] 02719- 8105 Feb, [facility] [address] [address] Feb, [facility] [place] [id number] [place] [address] 52041- 5354 20 Feb, 2018 Normal in multigravida Z34.80 [place] [id number] 34724- 6345 13 Feb, 2018 Painful urination R30.9 and Encounter for supervision of normal in second trimester Z34.92 [facility] [id number] [place] [address] 71123 -1718 07 Feb, 2018 Seasonal allergies J30.2 [facility] [place] [address] 06172- 4415 Feb, [place] [address] 44759- 3960 Feb, [facility] [address] 92369 -7533 January, Seasonal allergic rhinitis, unspecified trigger J30.2 [facility] [id number] [place] [address] 54641 -7133 January, [facility] [id number] [place] [address] 26153 -3856 January, Viral gastroenteritis A08.4 [facility] [place] [id number] [place] [address] 48456- 8414 January, [place] [address] [id number] [place] [address] 13719- 2355 16 Jan, 2018 care in first trimester Z34.91 [facility] [place] [id number] [place] [address] 61470- 9019 January, [facility] [id number] [place] [address] 32828 -5571 January, Left ankle pain, unspecified chronicity M25.572 [facility] [place] [id number] [place] [address] 55143- 7728 January, [facility] [place] [address] [place] [address]- 2972 January, Dysthymic disorder F34.1 and DANIELLA (generalized anxiety disorder) F41.1 [facility] [id number] [place] [address] 10377 -6930 January, Impacted cerumen of both ears H61.23 [facility] [place] [id number] [place] [address] 10596- 0288 Dec, [facility] [place] [address] 87632- 8960 Dec, in multigravida Z34.80 [place] [address] 78747- 5792 Dec, DANIELLA (generalized anxiety disorder) F41.1 and Dysthymic disorder F34.1 [place] [address] 23508- 5651 Dec, [facility] [place] [id number] [place] [address] 71156- 4761 Nov, [place] [address] 73533- 6073 Nov, [place] [address] [id number] [place] [address] 36678- 7771 Nov, Painful urination R30.9 ; Vaginal yeast infection B37.3 and Early stage of Z34.90 [facility] [place] [id number] [place] [address] 53096- 3043 Nov, in multigravida Z34.80 [place] [address] [id number] [place] [address] 09537- 7658 Nov, Dysfunction of right eustachian tube H69.81 and Bilateral impacted cerumen H61.23 [facility] [place] [id number] [place] [address] 82315- 0188 Nov, [facility] [place] [address] [place] [address]- 2487 Nov, [facility] [place] [id number] [place] [address] 40962- 4455 Nov, [facility] [id number] [place] [address] 40356 -2489 Nov, Missed period N92.6 [facility] [place] [address] 63592- 2580 Sep, DANIELLA (generalized anxiety disorder) F41.1 and Dysthymic disorder F34.1 [facility] [id number] [place] [address] 20211 -5646 Aug, Acute nasopharyngitis J00 [place] [address] [id number] [place] [address] 96272- 4060 Jul, Irregular periods/menstrual cycles N92.6 [place] [address] 97809- 6435 Jul, Bilateral impacted cerumen H61.23 [place] [address] [place] [id number] [place] [address] 56257- 0551 Jul, DANIELLA (generalized anxiety disorder) F41.1 and Dysthymic disorder F34.1 [place] [address] [id number] [place] [address] 99290- 1106 Jun, [place] [address] 89769- 1356 Jun, Dysthymic disorder F34.1 [place] [address] [id number] [place] [address] 79831- 4240 Jun, Anemia, O90.81 ; Lower abdominal pain R10.30 ; Allergic contact dermatitis due to adhesives L23.1 and Other headache syndrome G44.89 [place] [address] [place] [id number] [place] [address] 68240- 7232 Jun, 39 weeks gestation of Z3A.39 [place] [address] [place] [id number] [place] [address] 04405- 9606 27 May, 2017 care in third trimester Z34.93 [facility] [place] [address] 90982 -2892 24 May, 2017 Acute seasonal allergic rhinitis, unspecified trigger J30.2 [place] [address] 02280- 8606 20 May, 2017 Normal in multigravida Z34.80 [facility] [address] 95337 -1759 17 May, 2017 Urinary frequency R35.0 and Pain of round ligament N94.9 [place] [address] 04518- 8615 13 May, 2017 35 weeks gestation of Z3A.35 [place] [address] 56414- 8638 Apr, High risk sexual behavior Z72.51 and 33 weeks gestation of Z3A.33 [place] [address] 41039- 6909 Apr, care in third trimester Z34.93 [facility] [place] [address] [id number] [place] [address] 54624 -6151 Apr, Bilateral impacted cerumen H61.23 [place] [address] 67401- 7811 Apr, 30 weeks gestation of Z3A.30 and Encounter for immunization Z23 [place] [address] 97740- 7579 Mar, 28 weeks gestation of Z3A.28 [place] [address] 03166- 6599 Mar, [place] [address] 75166- 5200 Mar, [place] [address] [place] [id number] [place] [address] 37465- 5757 Mar, [place] [address] [place] [id number] [place] [address] 99789- 4488 Mar, 26 weeks gestation of Z3A.26 [facility] [address] [place] [id number] [place] [address] 29744 -3838 Mar, Acute back pain M54.9 [place] [address] [place] [id number] [place] [address] 67389- 1063 28 Feb, 2017 24 weeks gestation of Z3A.24 [facility] [address] [place] [address] 51258 -4338 27 Feb, 2017 Lower abdominal pain R10.30 [facility] [address] [place] [id number] [place] [address] 65151 -4153 Feb, Gastroenteritis and colitis, viral A08.4 [place] [id number] [place] [address] 32408- 9659 14 Feb, 2017 care in second trimester Z34.92 [place] [id number] [place] [address] 27904- 6658 07 Feb, 2017 [facility] [address] [place] [id number] [place] [address] 39772 -7840 04 Feb, 2017 Abscess L02.91 [facility] [place] [id number] [place] [address] 43885 -7779 Feb, Vaginal flavia B37.3 [place] [id number] [place] [address] 20787- 2134 January, 20 weeks gestation of Z3A.20 [place] [id number] [place] [address] 74763- 5346 January, [facility] [address] [place] [id number] [place] [address] 79462 -5879 January, Seasonal allergic rhinitis, unspecified allergic rhinitis trigger J30.2 [facility] [address] [place] [id number] [place] [address] 58571 -3520 January, Dermatitis L30.9 and Bug bites, initial encounter W57.XXXA [place] [address] [place] [id number] [place] [address] 63432- 4559 January, Sore throat J02.9 and Seasonal allergic rhinitis, unspecified allergic rhinitis trigger J30.2 [place] [address] [place] [id number] [place] [address] 06269- 5539 January, 16 weeks gestation of Z3A.[address] 88831- 8960 Dec, care in first trimester Z34.91 [place] [address] 46757- 0239 Nov, care in first trimester Z34.91 and Normal in multigravida Z34.80 [facility] [place] [address] [place] [id number] [place] [address] 74143 -9654 Oct, Nausea and vomiting during O21.9 [place] [address] [place] [id number] [place] [address] 21705- 1568 Oct, [place] [address] [place] [id number] [place] [address] 78437- 8384 Oct, [place] [address] [place] [id number] [place] [address] 31942- 2822 Oct, Encounter for test, result unknown Z32.00 [place] [id number] [place] [address] 94588- 0766 Sep, Irregular periods/menstrual cycles N92.6 ; Sore throat J02.9 ; Nausea R11.0 and Right ear impacted cerumen H61.21 [facility] [place] [id number] [place] [address] 76227 -2201 Jul, Vaginal discharge N89.8 ; Other specified bacterial agents as the cause of diseases classified elsewhere B96.89 and Acute vaginitis N76.0 [place] [address] [place] [id number] [place] [address] 50421- 9132 10 Jun, 2016 Depression, unspecified depression type F32.9 [place] [address] [place] [id number] [place] [address] 95388- 3898 23 May, 2016 Vaginal candidiasis B37.3 [place] [address] 51137- 2641 20 May, 2016 Acute pharyngitis, unspecified etiology J02.9 [place] [address] 96757 4674 19 May, 2016 Depression, unspecified depression type F32.9 [place] [address] 22307- 5965 12 May, 2016 Depression, unspecified depression type F32.9 [place] [address] [place] [id number] [place] [address] 50029- 2926 12 May, 2016 Dysthymic disorder F34.1 [facility] [address] 41565 -8932 Apr, Acute suppurative otitis media of right ear without spontaneous rupture of tympanic membrane, recurrence not specified H66.001 [facility] [address] [place] [id number] [place] [address] 88676 -6727 Mar, Herpes zoster without complication B02.9 [facility] [address] [place] [id number] [place] [address] 02102 -8933 Dec, Allergic rhinitis J30.9 [facility] [address] 80640 -0046 03 Dec, 2015 Lumbago M54.5 [facility] [address] [place] [id number] [place] [address] 76226 -0723 18 Oct, 2015 Dysuria R30.0 and Urinary tract infection N39.0 [facility] [address] [place] [address] 36340 -3185 Sep, Acute nasopharyngitis J00 and Strep pharyngitis J02.0 [facility] [place] [address] [place] [id number] [place] [address] 28556- 0397 Jul, Upper respiratory tract infection, unspecified type J06.9 [place] [address] 63835- 5223 Jun, Irritable bowel syndrome without diarrhea K58.9 [place] [address] [place] [id number] [place] [address] 09559- 5462 Jun, [place] [address] 22858- 1562 May, [place] [address] [place] [id number] [place] [address] 27228- 1178 May, [place] [address] 30677- 2185 May, Otitis externa of left ear 380.10 [place] [address] 50600- 3251 May, Pain in joint, ankle and foot 719.47 [place] [address] [place] [id number] [place] [address] 75921- 4950 Apr, Pain in joint, ankle and foot 719.47 [place] [address] [place] [id number] [place] [address] 49405- 5860 Mar, Dysuria 788.1 and Incontinence in female 625.6 [place] [address] [place] [id number] [place] [address] 13602- 8095 Feb, Plantar fasciitis of right foot 728.71 ; Ankle weakness 719.67 and Ankle pain, chronic 719.47 [place] [address] [place] [id number] [place] [address] 74342- 1732 Feb, [place] [address] [place] [id number] [place] [address]- 6581 Feb, Belching 787.3 and Chest wall pain 786.52 [facility] [address] [id number] [place] [address]- 0250 14 Dec, 2014 [facility] [address] [id number] [place] [address]- 0285 Dec, [facility] [address] [id number] [place] [address]- 1989 Nov, [facility] [address] [id number] [place] [address]- 7948 Nov, [facility] [address] [id number] [place] [address]- 4053 Sep, [facility] [address] [facility] [id number] [place] [address]- 1838 Sep, [facility] [address] [facility] [id number], [place] [address]- 2083 Sep, [facility] [address] [id number] [place] [address]- 1071 Sep, [facility] [address] [place] [id number] [address]- 6778 Aug, [facility] [address] [facility] [id number], [place] [address]- 1702 Aug, [facility] [address] [id number] [address]- 6187 Aug, [facility] [place] [facility] [address] [id number] [place] [address]- 4657 Aug, [facility] [address] [facility] [id number]- 3976 Aug, [facility] [place] [facility] [address] [facility] [id number] 8211 Aug, [facility] [address] [id number], [place] [address]- 6369 Aug, [facility] [place] [facility] [address] [id number] [place] [address]- 4456 Aug, [facility] [place] [facility] [address] [id number], [place] [address]- 3500 Aug, [facility] [place] [facility] [address] [facility] [id number] [place] [address]- 5404 Aug, [facility] [place] [facility] [address] [id number] [place] [address]- 4852 Aug, [facility] [place] [facility] [address] [facility] [id number] [place] [address]- 5892 Aug, [facility] [place] [facility] [address] [facility] [id number] [place] [address]- 5307 Aug, [facility] [place] [facility] [address] [place] [id number] [address]- 9538 Aug, [facility] [place] [facility] [address] [facility] [id number], [place] [address]- 8351 Jul, [facility] [place] [facility] [address] [facility] [id number] [place] [address]- 4488 Jul, [facility] [place] [facility] [address] [place] [id number] [address]- 4845 Jul, [facility] [place] [facility] [address] [facility] [id number], [place] [address]- 5236 Jul, [facility] [place] [facility] [address] [facility] [id number], [place] [address]- 4778 Jul, [facility] [place] [facility] [address] [id number], [place] [address]- 8607 Jul, [facility] [place] [facility] [address] [facility] [id number], [place] [address]- 5667 Jul, [facility] [place] [facility] [address] [place] [id number] [address]- 8890 Jun, [facility] [place] [facility] [address] [id number] [place] [address]- 3131 Jun, [facility] [place] [facility] [address] [id number] [place] 2564 Jun, [facility] [place] [facility] [address] [id number] [place] [address]- 2018 Jun, [facility] [place] [facility] [address] [id number] [place] 9659 Jun, [facility] [place] [facility] [address] [id number] [place] [address]- 3262 Jun, [facility] [place] [facility] [address] [id number] [place] [address]- 4062 Jun, [facility] [place] [facility] [address] [id number] [place] [address]- 5749 Jun, [facility] [place] [facility] [address] [id number] [place] [address]- 2935 Jun, [facility] [place] [facility] [address] [id number] [place] [address]- 2559 Jun, [facility] [place] [facility] [address] [id number] [place] [address]- 9453 Jun, [facility] [place] [facility] [address] [id number] [place] [address]- 4072 Jun, [facility] [place] [facility] [address] [id number] [place] [address]- 1416 Jun, [facility] [place] [facility] [address] [id number] [place] 3945 Jun, [facility] [place] [facility] [address] [id number] [place] [address]- 1968 May, [facility] [place] [facility] [address] [id number] [place] 9594 May, [facility] [place] [facility] [address] [id number] [place] [address]- 2211 May, [facility] [place] [facility] [address] [id number] [place] [address]- 8754 May, [facility] [place] [facility] [address] [id number] [place] [address]- 9374 May, [facility] [place] [facility] [address] [id number] [place] [address]- 8644 Apr, [facility] [place] [facility] [address] [id number] [place] [address]- 8586 Apr, [facility] [place] [facility] [address] [id number] [place] [address]- 0783 Apr, [facility] [place] [facility] [address] [id number] [place] [address]- 7902 Apr, [facility] [place] [facility] [address] [id number] [place] [address]- 4624 Mar, [facility] [place] [facility] [address] [id number] [place] [address]- 4456 Mar, [facility] [place] [facility] [address] [id number] [place] [address]- 6389 Mar, [facility] [place] [facility] [address] [id number] [place] [address]- 7171 Mar, [facility] [place] [facility] [address] [id number] [place] [address]- 2527 Mar, [facility] [place] [facility] [address] [id number] [place] [address]- 22[address] Mar, [facility] [place] [facility] [address] [id number] [place] [address] Mar, [facility] [place] [facility] [address] [id number] [place] [address] Mar, [facility] [place] [facility] [address] [id number] [place] [address] Feb, [facility] [place] [facility] [address] [id number] [place] [address] Feb, [facility] [place] [facility] [address] [id number] [place] [address] Feb, [facility] [place] [facility] [address] [id number] [place] [address] Feb, [facility] [place] [facility] [address] [id number] [place] [address] Feb, [facility] [place] [facility] [address] [id number] [place] [address] Feb, [facility] [place] [facility] [address] [id number] [place] [address] Feb, [facility] [place] [facility] [address] [id number] [place] [address]- [address] Feb, [facility] [place] [facility] [address] [id number] [place] [address]- [address] January, [facility] [place] [facility] [address] [id number] [place] [address] January, [facility] [place] [facility] [address] [id number] [place] [address]- [address] January, [facility] [place] [facility] [address] [id number] [place] [address]- [address] January, [facility] [place] [facility] [address] [id number] [place] [address]- [address] January, [facility] [place] [facility] [address] [id number] [place] [address]- [address] January, [facility] [place] [facility] [address] [id number] [place] [address]- [address] Dec, [facility] [place] [facility] [address] [id number] [place] [address]- [address] Dec, [facility] [place] [facility] [address] [id number] [place] [address]- [address] Dec, [facility] [place] [facility] [address] [id number] [place] [address]- [address] Dec, [facility] [place] [facility] [address] [id number] [place] [address]- [address] Dec, [facility] [place] [facility] [address] [id number] [place] [address]- [address] Dec, [facility] [place] [facility] [address] [id number] [place] [address]- [address] Dec, [facility] [place] [facility] [address] [id number] [place] [address]- [address] Dec, [facility] [place] [facility] [address] [id number] [place] [address]- [address] Oct, [facility] [place] [facility] [address] [id number] [place] [address] Oct, [facility] [place] [facility] [address] [id number] [place] [address]697 Aug, [facility] [place] [facility] [address] [id number] [place] [address] Aug, [facility] [place] [facility] [address] [id number] [place] [address]- [address] Jul, [facility] [place] [facility] [address] [id number] [place] [address] Jul, [facility] [place] [facility] [address] [id number] [place] [address]- [address] Mar, [facility] [place] [facility] [address] [id number] [place] [address] Mar, [facility] [place] [facility] [address] [id number] [place] [address] Mar, [facility] [place] [facility] [address] [id number] [place] [address] Feb, [facility] [place] [facility] [address] [id number] [place] [address]- [address] Feb, [facility] [address] [id number] [place] [address] Feb, [facility] [address] [id number] [place] [address]- [address] January[facility] [address] [id number] [place] [address] January, [facility] [address] [id number] [place] [address] January, [facility] [address] [id number] [place] [address]- [address] January, [facility] [address] [id number] [place] [address]- [address] January, [facility] [address] [id number] [place] [address] January, [facility] [address] [id number] [place] [address] January, [facility] [facility] [address] [id number] [place] [address] Dec, [facility] [address] [id number] [place] [address] Dec, [facility] [address] [id number] [place] [address] Dec, [facility] [place] [facility] [address] [id number] [place] [address] Dec, [facility] [place] [facility] [address] [id number] [place] [address] Nov, [facility] [place] [facility] [address] [id number] [place] [address] Nov, [facility] [place] [facility] [address] [id number] [place] [address] Nov, [facility] [place] [facility] [address] [id number] [place] [address] 27 Oct, 2012 [facility] [address] [id number] [place] [address] 25 Oct, 2012 [facility] [place] [facility] [address] [id number] [place] [address] 20 Oct, 2012 [facility] [address] [id number] [place] [address] 19 Oct, 2012 [facility] [address] [id number] [place] [address] Oct, [facility] [address] [id number] [place] [address] 05 Oct, 2012 [facility] [address] [id number] [place] [address] Sep, [facility] [address] [id number] [place] [address] Sep, [facility] [address] [id number] [place] [address] Sep, [facility] [address] [id number] [place] [address] Sep, [facility] [address] [id number] [place] [address] Sep, [facility] [address] [id number] [place] [address] Aug, [facility] [place] [facility] [address] [id number] [place] [address] Aug, [facility] [place] [facility] [address] [id number] [place] [address] Aug, [facility] [place] [facility] [address] [id number] [place] [address] Aug, [facility] [place] [facility] [address] [id number] [place] [address] Aug, [facility] [place] [facility] [address] [id number] [place] [address] Aug, [facility] [place] [facility] [address] [id number] [place] [address] Jul, [facility] [place] [facility] [address] [id number] [place] [address] Jul, [facility] [place] [facility] [address] [id number] [place] [address] Jul, [facility] [place] [facility] [address] [id number] [place] [address] Jul, [facility] [place] [facility] [address] [id number] [place] [address] 26[address] Jul, [facility] [place] [facility] [address] [id number] [place] [address] Jul, [facility] [place] [facility] [address] [id number] [place] [address] 76[address] Jul, [facility] [place] [facility] [address] [id number] [place] [address]- [address] 15 Jul, 2012 [facility] [place] [facility] [address] [id number] [place] [address]- [address] 14 Jul, 2012 [facility] [place] [facility] [address] [id number], [place] [address] Jul, [facility] [place] [facility] [address] [id number] [place] [address] 125[address] Jul, [facility] [place] [facility] [address] [id number] [place] [address] Jul, [facility] [place] [facility] [address] [id number] [place] [address] Jul, [facility] [place] [facility] [address] [id number] [place] [address] Jul, [facility] [place] [facility] [address] [id number] [place] [address]- [address]46 08 Jul, 2012 [facility] [place] [facility] [address] [id number] [place] [address]686 Jul, [facility] [place] [facility] [address] [id number] [place] [address] Jul, [facility] [address] [id number] [place] [address] Jul, [facility] [place] [facility] [address] [id number] [place] [address] Jul, [facility] [place] [facility] [address] [id number] [place] [address] Jun, [facility] [place] [facility] [address] [id number] [place] [address] 1626 Jun, [facility] [place] [facility] [address] [id number] [place] [address] May, [facility] [place] [facility] [address] [id number] [place] [address]- 2492 Apr, [facility] [place] [facility] [address] [id number] [place] [address] Mar, [facility] [address] [facility] [id number] [place] [address] 25[address] Feb, [facility] [place] [facility] [address] [id number] [place] [address]- [address] Feb, [facility] [place] [facility] [address] [id number] [place] [address]- [address] Feb, [facility] [place] [facility] [address] [id number] [place] [address] 8436 January, [facility] [place] [facility] [address] [id number] [place] [address]- [address]46 January, [facility] [place] [facility] [address] [id number] [place] [address]- 1167 Dec, [facility] [place] [facility] [address] [id number] [place] [address]- [address]908 Dec, [facility] [place] [facility] [address] [id number] [place] [address]- 1473 08 Nov, 2011 [facility] [place] [facility] [address] [id number] [place] [address]- 12[address] Aug, [facility] [place] [facility] [address] [id number] [place] [address] 1671 Jul, [facility] [place] [facility] [address] [id number] [place] [address] 2043 Jul, [facility] [place] [facility] [address] [id number] [place] [address]- 0273 16 Jul, 2011 [facility] [place] [facility] [address] [id number] [place] [address]- 4515 12 Jun, 2011 [facility] [place] [facility] [address] [id number] [place] [address]- 9409 12 Jun, 2011 [facility] [place] [facility] [address] [id number] [place] [address]- [address]654 14 May, 2011 [facility] [place] [facility] [address] [id number] [place] [address]- 0359 10 Apr, 2011 [facility] [place] [facility] [address] [id number] [place] [address] 8897 January, [facility] [place] [facility] [address] [id number] [place] [address]- 5381 13 Dec, 2010 [facility] [place] [facility] [address] [id number] [place] [address]- 3619 16 Nov, 2010 [facility] [place] [facility] [address] [id number] [place] [address]- 0774 10 Oct, 2010 [facility] [place] [facility] [address] [id number] [place] [address]- 4244 14 Jun, 2010 [facility] [place] [facility] [address] [id number], [place] [address] 14 Jun, 2010 [facility] [place] [address] [facility] [id number], [place] [address] Oct, [facility] [place] [address] [facility] [id number], [place] [address] Aug, [facility] [place] [address] [facility] [id number], [place] [address] Jul, [facility] [place] [address] [facility] [id number], [place] [address]- [address] Dec, IMMUNIZATIONS No Known Immunizations SOCIAL HISTORY Never Assessed REASON FOR VISIT Left calf pain started last Sunshine, OB Yajair[facility] 24 weeks preg PLAN OF CARE Activity Details Follow Up w/ Dr. Zaragoza Reason:leg cramps VITAL SIGNS Height 61 in 2018-04-08 Weight 186.6 lbs 2018-04-08 Temperature 98.4 degrees Fahrenheit 2018-04-08 Heart Rate 66 bpm 2018-04-08 Respiratory Rate 20 2018-04-08 BMI 35.25 kg/m2 2018-04-08 Blood pressure systolic 110 mmHg 2018-04-08 Blood pressure diastolic 62 mmHg 2018-04-08 MEDICATIONS Medication Instructions Dosage Frequency Start Date End Date Duration Status Flonase 50 MCG/ACT Nasally Once a day 1 spray in each nostril 24h Feb, 30 day(s) Active RESULTS No Results PROCEDURES [...]
--- OUTSIDE RECORDS SUMMARY | 2018-12-13 18:14 | XMS REPORT ---
Author Author KYLAH DUPREE [facility] Address [address] [place] [address] Care Team Providers Care Compliance Consultant Name Role Phone ESTHELA DUPREETA Unavailable PROBLEMS Type Condition ICD9-CM Code XSR46-UV Code Onset Dates Condition Status SNOMED Code Problem Depression, unspecified depression type F32.9 Active 06780400 Problem Seasonal allergic rhinitis, unspecified allergic rhinitis trigger J30.2 Active 388056429 Problem Irregular periods/menstrual cycles N92.6 Active 03668266 Problem Seasonal allergies J30.2 Active 808972700 Problem Missed period N92.6 Active 48698802 Problem Other headache syndrome G44.89 Active 888987457 Problem Anemia, O90.81 Active 683254199 Problem DANIELLA (generalized anxiety disorder) F41.1 Active 02222949 Problem Dysthymic disorder F34.1 Active 02787551 ALLERGIES Substance Reaction Event Type Date Status Cefaclor Unknown Drug Allergy Mar, Active ENCOUNTERS Encounter Location Date Diagnosis [facility] [id number] [place] [address] 36173 -5472 Mar, Pain of left calf M79.662 and Muscle spasm of left calf M62.831 [facility] [id number] [place] [address] 50473- 0993 Mar, care in second trimester Z34.92 [facility] [id number] [place] [address] 82633- 7569 Mar, Bilateral impacted cerumen H61.23 [facility] [id number] [place] [address] 28377- 8123 Feb, [facility] [id number] [place] [address] 54523 -0715 Feb, [facility] [address] [place] [address] 78[address] 20 Feb, 2018 Normal in multigravida Z34.80 [facility] [id number] [place] [address] 55086- 9043 13 Feb, 2018 Painful urination R30.9 and Encounter for supervision of normal in second trimester Z34.92 [facility] [id number] [place] [address] 85069 -7993 07 Feb, 2018 Seasonal allergies J30.2 [facility] [address] 54573- 6551 Feb, [place] [address] 49529- 0840 Feb, [facility] [address] 46542 -3996 January, Seasonal allergic rhinitis, unspecified trigger J30.2 [facility] [id number] [place] [address] 70061 -3848 January, [facility] [address] 61610 -3786 January, Viral gastroenteritis A08.4 [facility] [id number] [place] [address] 68983- 3159 January, [place] [id number] [place] [address] 79677- 9318 January, care in first trimester Z34.91 [facility] [id number] [place] [address] 50863- 1402 January, [facility] [address] 13694 -5774 January, Left ankle pain, unspecified chronicity M25.572 [facility] [id number] [place] [address] 37301- 4918 January, [facility] [address] [place] [address]- 6100 January, Dysthymic disorder F34.1 and DANIELLA (generalized anxiety disorder) F41.1 [facility] [address] 82593 -3470 January, Impacted cerumen of both ears H61.23 [facility] [address] 05884- 4569 Dec, [facility] [address] 80197- 1846 Dec, in multigravida Z34.80 [place] [address] 95957- 9577 Dec, DANIELLA (generalized anxiety disorder) F41.1 and Dysthymic disorder F34.1 [place] [address] 63036- 2242 Dec, [facility] [address] 06553- 3546 Nov, [place] [address] 57936- 7774 Nov, [place] [address] 93769- 1781 Nov, Painful urination R30.9 ; Vaginal yeast infection B37.3 and Early stage of Z34.90 [facility] [id number] [place] [address] 31406- 7241 Nov, in multigravida Z34.80 [place] [id number] [place] [address] 37406- 6779 Nov, Dysfunction of right eustachian tube H69.81 and Bilateral impacted cerumen H61.23 [facility] [id number] [place] [address] 01075- 0205 Nov, [facility] [address] [place] [address]- 0970 Nov, [facility] [id number] [place] [address] 75694- 6443 Nov, [facility] [id number] [place] [address] 40183 -7020 Nov, Missed period N92.6 [place] [address] 79296- 9781 Sep, DANIELLA (generalized anxiety disorder) F41.1 and Dysthymic disorder F34.1 [facility] [id number] [place] [address] 60028 -8323 Aug, Acute nasopharyngitis J00 [place] [id number] [place] [address] 49581- 0532 Jul, Irregular periods/menstrual cycles N92.6 [place] [address] 37871- 9414 Jul, Bilateral impacted cerumen H61.23 [place] [address] 64753- 3704 Jul, DANIELLA (generalized anxiety disorder) F41.1 and Dysthymic disorder F34.1 [place] [id number] [place] [address] 44618- 9794 Jun, [place] [address] 42946- 3681 Jun, Dysthymic disorder F34.1 [place] [id number] [place] [address] 13302- 9987 Jun, Anemia, O90.81 ; Lower abdominal pain R10.30 ; Allergic contact dermatitis due to adhesives L23.1 and Other headache syndrome G44.89 [place] [id number] [place] [address] 40404- 4325 Jun, 39 weeks gestation of Z3A.39 [place] [address] 97407- 9828 27 May, 2017 care in third trimester Z34.93 [facility] [address] 72780 -8978 24 May, 2017 Acute seasonal allergic rhinitis, unspecified trigger J30.2 [place] [address] 19834- 7519 20 May, 2017 Normal in multigravida Z34.80 [facility] [place] [address] 67256 -3119 17 May, 2017 Urinary frequency R35.0 and Pain of round ligament N94.9 [place] [address] 86314- 5907 13 May, 2017 35 weeks gestation of Z3A.[address] 80406- 3296 Apr, High risk sexual behavior Z72.51 and 33 weeks gestation of Z3A.[address] 86384- 6421 Apr, care in third trimester Z34.93 [facility] [place] [address] 11712 -4247 Apr, Bilateral impacted cerumen H61.[address] 47827- 5369 Apr, 30 weeks gestation of Z3A.30 and Encounter for immunization Z23 [address] 11550- 0709 Mar, 28 weeks gestation of Z3A.28 [place] [address] 17205- 3220 Mar, [place] [address] 64183- 8398 Mar, [place] [id number] [place] [address] 84484- 0356 13 Mar, 2017 [place] [id number] [place] [address] 10033- 2963 Mar, 26 weeks gestation of Z3A.26 [facility] [id number] [place] [address] 51739 -8972 03 Mar, 2017 Acute back pain M54.9 [place] [address] 42724- 7552 Feb, 24 weeks gestation of Z3A.24 [facility] [address] [place] [address] 63862 -5634 27 Feb, 2017 Lower abdominal pain R10.30 [facility] [address] 82167 -3453 Feb, Gastroenteritis and colitis, viral A08.4 [place] [address] 56610- 2659 14 Feb, 2017 care in second trimester Z34.92 [place] [address] 80903- 3753 07 Feb, 2017 [facility] [id number] [place] [address] 62211 -0206 04 Feb, 2017 Abscess L02.91 [facility] [address] [place] [address] 59895 -1672 Feb, Vaginal flavia B37.3 [place] [id number] [place] [address] 55931- 3777 January, 20 weeks gestation of Z3A.20 [place] [address] 61922- 6644 January, [facility] [id number] [place] [address] 24268 -5086 January, Seasonal allergic rhinitis, unspecified allergic rhinitis trigger J30.2 [facility] [place] [id number] [place] [address] 81281 -6637 January, Dermatitis L30.9 and Bug bites, initial encounter W57.XXXA [address] 55597- 9952 January, Sore throat J02.9 and Seasonal allergic rhinitis, unspecified allergic rhinitis trigger J30.[address] 98551- 7352 January, 16 weeks gestation of Z3A.[address] 97266- 1049 Dec, care in first trimester Z34.[address] 89701- 6580 Nov, care in first trimester Z34.91 and Normal in multigravida Z34.80 [facility] [address] 10763 -2545 Oct, Nausea and vomiting during O21.[address] 12674- 4153 Oct, [address] 10478- 7212 Oct, [address] 33141- 3953 Oct, Encounter for test, result unknown Z32.[address] 49607- 0549 Sep, Irregular periods/menstrual cycles N92.6 ; Sore throat J02.9 ; Nausea R11.0 and Right ear impacted cerumen H61.21 [facility] [place] [id number] [place] [address] 19959 -5180 Jul, Vaginal discharge N89.8 ; Other specified bacterial agents as the cause of diseases classified elsewhere B96.89 and Acute vaginitis N76.0 [place] [id number] [place] [address] 14392- 1656 10 Jun, 2016 Depression, unspecified depression type F32.9 [place] [id number] [place] [address] 07410- 0948 23 May, 2016 Vaginal candidiasis B37.3 [place] [address] 68368- 4671 20 May, 2016 Acute pharyngitis, unspecified etiology J02.9 [place] [address] 894120- 7720 19 May, 2016 Depression, unspecified depression type F32.9 [place] [id number] [place] [address] 54421- 2656 12 May, 2016 Depression, unspecified depression type F32.9 [place] [address] 72019- 1835 12 May, 2016 Dysthymic disorder F34.1 [facility] [address] 93269 -6284 Apr, Acute suppurative otitis media of right ear without spontaneous rupture of tympanic membrane, recurrence not specified H66.001 [facility] [place] [id number] [place] [address] 34378 -9747 Mar, Herpes zoster without complication B02.9 [facility] [id number] [place] [address] 99264 -2712 Dec, Allergic rhinitis J30.9 [facility] [address] 68085 -4584 03 Dec, 2015 Lumbago M54.5 [facility] [id number] [place] [address] 11939 -2766 18 Oct, 2015 Dysuria R30.0 and Urinary tract infection N39.0 [facility] [id number] [place] [address] 24276 -2702 Sep, Acute nasopharyngitis J00 and Strep pharyngitis J02.0 [facility] [id number] [place] [address] 26752- 6982 Jul, Upper respiratory tract infection, unspecified type J06.9 [place] [address] 52396- 0001 Jun, Irritable bowel syndrome without diarrhea K58.9 [place] [id number] [place] [address] 81178- 4575 Jun, [place] [address] 20434- 3056 May, [place] [address] 17628- 4192 May, [place] [address] 37875- 3749 May, Otitis externa of left ear 380.10 [place] [address] 52267- 3956 May, Pain in joint, ankle and foot 719.47 [place] [id number] [place] [address] 97837- 0047 Apr, Pain in joint, ankle and foot 719.47 [place] [address] 82810- 3709 Mar, Dysuria 788.1 and Incontinence in female 625.[address] 60441- 7341 30 Feb, 2015 Plantar fasciitis of right foot 728.71 ; Ankle weakness 719.67 and Ankle pain, chronic 719.47 [place] [id number] [place] [address] 90501- 7678 Feb, [place] [address] [place] [address]- 4319 Feb, Belching 787.3 and Chest wall pain 786.52 [facility] [id number] [place] [address], [place] [address]- 2590 14 Dec, 2014 [facility] [address] [id number] [place] [address]- 6275 Dec, [facility] [id number] [place] [address], [place] [address]- 3113 Nov, [facility] [address] [id number] [place] [address], [place] [address]- 2931 Nov, [facility] [address] [id number] [place] [address], [place] [address]- 0993 Sep, [facility] [id number] [place] [address], [place] [address]- 1489 Sep, [facility] [id number] [place] [address], [place] [address]- 5212 Sep, [facility] [address] [place] [address] [id number] [place] [address]- 8528 Sep, [facility] [address] [address]- 0718 Aug, [facility] [address] [place] [address]- 7077 Aug, [facility] [address] [id number], [place] [address]- 3357 Aug, [facility] [address] [id number] [place] [address]- 3428 Aug, [facility] [address] [facility] [id number] [place] [address]- 8137 Aug, [facility] [address] [facility] [id number], [place] [address]- 9860 Aug, [facility] [address] [address]- 0319 Aug, [facility] [place] [facility] [address] [id number] [place] [address]- 5406 Aug, [facility] [place] [facility] [address] [id number] [place] 7768 Aug, [facility] [place] [facility] [address] [id number] [place] [address]- 5370 Aug, [facility] [place] [facility] [address] [id number] [place] [address]- 4269 Aug, [facility] [place] [facility] [address] [id number] [place] [address]- 0105 Aug, [facility] [place] [facility] [address] [id number] [place] [address]- 9629 Aug, [facility] [place] [facility] [address] [id number] [place] [address]- 7984 Aug, [facility] [place] [facility] [address] [id number] [place] [address]- 7262 Jul, [facility] [place] [facility] [address] [id number] [place] [address]- 7470 Jul, [facility] [place] [facility] [address] [id number] [place] [address]- 5479 Jul, [facility] [place] [facility] [address] [id number], [place] [address]- 4774 Jul, [facility] [place] [facility] [address] [id number], [place] [address]- 4117 Jul, [facility] [place] [facility] [address] [id number], [place] [address]- 9720 Jul, [facility] [place] [facility] [address] [id number], [place] [address]- 0235 Jul, [facility] [place] [facility] [address] [id number] [place] [address]- 3372 Jun, [facility] [place] [facility] [address] [id number] [place] [address]- 4523 30 Jun, 2013 [facility] [place] [facility] [address] [id number] [place] [address]- 9151 Jun, 2013 [facility] [place] [facility] [address] [id number] [place] [address]- 8802 Jun, 2013 [facility] [place] [facility] [address] [id number] [place] 8100 Jun, 2013 [facility] [place] [facility] [address] [id number] [place] [address]- 1780 Jun, 2013 [facility] [place] [facility] [address] [id number] [place] [address]- 0239 Jun, [facility] [place] [facility] [address] [id number] [place] [address]- 0196 Jun, 2013 [facility] [place] [facility] [address] [id number] [place] [address]- 7651 Jun, 2013 [facility] [place] [facility] [address] [id number] [place] [address]- 2885 Jun, [facility] [place] [facility] [address] [id number] [place] [address]- 6140 Jun, [facility] [place] [facility] [address] [id number] [place] [address]- 3222 Jun, [facility] [place] [facility] [address] [id number] [place] [address]- 6091 Jun, [facility] [place] [facility] [address] [id number] [place] [address]- 5789 Jun, [facility] [place] [facility] [address] [id number] [place] [address]- 5598 May, [facility] [place] [facility] [address] [id number] [place] [address]- 1076 May, [facility] [place] [facility] [address] [id number] [place] 6353 May, [facility] [place] [facility] [address] [id number] [place] [address]- 4576 May, [facility] [place] [facility] [address] [id number] [place] [address]- 3538 May, [facility] [place] [facility] [address] [id number] [place] [address]- 1232 Apr, [facility] [place] [facility] [address] [id number] [place] [address]- 8995 Apr, [facility] [place] [facility] [address] [id number] [place] [address]- 4759 Apr, [facility] [place] [facility] [address] [id number] [place] [address]- 1371 Apr, [facility] [place] [facility] [address] [id number] [place] [address]- 8546 Mar, [facility] [place] [facility] [address] [id number] [place] [address]- 1004 Mar, [facility] [place] [facility] [address] [id number] [place] [address]- 6625 Mar, [facility] [place] [facility] [address] [id number] [place] [address]- 0372 Mar, [facility] [place] [facility] [address] [id number] [place] [address]- 4767 Mar, [facility] [place] [facility] [address] [id number] [place] [address]- 0497 Mar, [facility] [place] [facility] [address] [id number] [place] [address]- 2629 Mar, [facility] [place] [facility] [address] [id number] [place] [address]- 5283 Mar, [facility] [place] [facility] [address] [id number] [place] [address]- 7848 Feb, [facility] [place] [facility] [address] [id number] [place] [address]- 3921 Feb, [facility] [place] [facility] [address] [id number] [place] [address]- 8302 Feb, [facility] [place] [facility] [address] [id number] [place] [address]- 0289 Feb, [facility] [place] [facility] [address] [id number] [place] [address]- 0927 Feb, [facility] [place] [facility] [address] [id number] [place] [address]- 0870 Feb, [facility] [place] [facility] [address] [id number] [place] [address]- 8954 Feb, [facility] [place] [facility] [address] [id number] [place] [address]- 5112 Feb, [facility] [place] [facility] [address] [id number] [place] [address]- 2985 January, [facility] [place] [facility] [address] [id number] [place] [address]- 1729 January, [facility] [place] [facility] [address] [id number] [place] [address]- 8926 January, [facility] [place] [facility] [address] [id number] [place] [address]- 1219 January, [facility] [place] [facility] [address] [id number] [place] [address]- 9154 January, [facility] [place] [facility] [address] [id number] [place] [address]- 2225 January, [facility] [place] [facility] [address] [id number] [place] [address]- 3104 Dec, [facility] [place] [facility] [address] [id number] [place] [address]- 3783 Dec, [facility] [place] [facility] [address] [id number] [place] [address]- 7800 Dec, [facility] [place] [facility] [address] [id number] [place] [address]- 0290 Dec, [facility] [place] [facility] [address] [id number] [place] [address]- 6626 Dec, [facility] [place] [facility] [address] [id number] [place] [address]- 2006 Dec, [facility] [place] [facility] [address] [id number] [place] [address]- 4090 Dec, [facility] [place] [facility] [address] [id number] [place] [address]- 2109 Dec, [facility] [place] [facility] [address] [id number] [place] [address] Oct, [facility] [place] [facility] [address] [id number] [place] [address] Oct, [facility] [place] [facility] [address] [id number] [place] [address] Aug, [facility] [place] [facility] [address] [id number] [place] [address] Aug, [facility] [place] [facility] [address] [id number] [place] [address] Jul, [facility] [place] [facility] [address] [id number] [place] [address] Jul, [facility] [place] [facility] [address] [id number] [place] [address] Mar, [facility] [place] [facility] [address] [id number] [place] [address] Mar, [facility] [place] [facility] [address] [id number] [place] [address] Mar, [facility] [place] [facility] [address] [id number] [place] [address] Feb, [facility] [place] [facility] [address] [id number] [place] [address] Feb, [facility] [address] [id number] [place] [address] Feb, [facility] [address] [id number] [place] [address] January, [facility] [address] [id number] [place] [address] January, [facility] [address] [id number] [place] [address] January, [facility] [address] [id number] [place] [address] January, [facility] [address] [id number] [place] [address] January, [facility] [address] [id number] [place] [address] January, [facility] [address] [id number] [place] [address] January, [facility] [address] [id number] [place] [address] Dec, [facility] [address] [id number] [place] [address] Dec, [facility] [address] [id number] [place] [address] Dec, [facility] [place] [facility] [address] [id number] [place] [address] Dec, [facility] [place] [facility] [address] [id number] [place] [address] Nov, [facility] [place] [facility] [address] [id number] [place] [address] Nov, [facility] [place] [facility] [address] [id number] [place] [address] Nov, [facility] [place] [facility] [address] [id number] [place] [address] 27 Oct, 2012 [facility] [address] [id number] [place] [address] 25 Oct, 2012 [facility] [place] [facility] [address] [id number] [place] [address] 20 Oct, 2012 [facility] [address] [id number] [place] [address] Oct, [facility] [address] [id number] [place] [address] Oct, [facility] [address] [id number] [place] [address] 05 Oct, 2012 [facility] [address] [id number] [place] [address] 30 Sep, 2012 [facility] [address] [id number] [place] [address] Sep, [facility] [address] [id number] [place] [address] Sep, [facility] [address] [facility] [id number] [place] [address] Sep, [facility] [address] [facility] [id number] [place] [address] Sep, [facility] [address] [id number] [place] [address] Aug, [facility] [address] [id number] [place] [address] Aug, [facility] [place] [facility] [address] [id number] [place] [address] Aug, [facility] [place] [facility] [address] [id number] [place] [address] 07 Aug, 2012 [facility] [place] [facility] [address] [id number] [place] [address] 1998 Aug, [facility] [place] [facility] [address] [id number] [place] [address] Aug, [facility] [place] [facility] [address] [id number] [place] [address] Jul, [facility] [place] [facility] [address] [facility] [id number] [place] [address] Jul, [facility] [place] [facility] [address] [id number] [place] [address] Jul, [facility] [place] [facility] [address] [id number] [place] [address] Jul, [facility] [place] [facility] [address] [id number] [place] [address] Jul, [facility] [place] [facility] [address] [id number] [place] [address] Jul, [facility] [place] [facility] [address] [id number] [address] Jul, [facility] [place] [facility] [address] [id number], [place] [address] 15 Jul, 2012 [facility] [place] [facility] [address] [id number], [place] [address] 14 Jul, 2012 [facility] [place] [facility] [address] [id number], [place] [address] Jul, [facility] [place] [facility] [address] [id number], [place] [address] Jul, [facility] [place] [facility] [address] [id number][place] [address] Jul, [facility] [place] [facility] [address] [id number], [place] [address] Jul, [facility] [place] [facility] [address] [facility] [id number], [place] [address] Jul, [facility] [place] [facility] [address] [id number] [place] [address] 254 08 Jul, 2012 [facility] [place] [facility] [address] [id number] [place] [address] 08 Jul, 2012 [facility] [place] [facility] [address] [id number] [place] [address] Jul, [facility] [place] [facility] [address] [id number] [place] [address] Jul, [facility] [place] [facility] [address] [id number] [place] [address] Jul, [facility] [place] [facility] [address] [id number] [place] [address] Jun, [facility] [place] [facility] [address] [id number] [place] [address] Jun, [facility] [place] [facility] [address] [id number] [place] [address] May, [facility] [place] [facility] [address] [id number] [place] [address] Apr, [facility] [place] [facility] [address] [id number] [place] [address] Mar, [facility] [place] [facility] [address] [facility] [id number] [place] [address] Feb, [facility] [place] [facility] [address] [id number] [place] [address] Feb, [facility] [place] [facility] [address] [id number] [place] [address] 254 Feb, [facility] [place] [facility] [address] [id number] [place] [address] January, [facility] [place] [facility] [address] [id number] [place] [address]46 January, [facility] [place] [facility] [address] [id number] [place] [address] Dec, [facility] [place] [facility] [address] [id number] [place] [address] Dec, [facility] [place] [facility] [address] [id number] [place] [address] 08 Nov, 2011 [facility] [place] [facility] [address] [id number] [place] [address] Aug, [facility] [place] [facility] [address] [id number] [place] [address] Jul, [facility] [place] [facility] [address] [id number] [place] [address] Jul, [facility] [place] [facility] [address] [id number] [place] [address] Jul, [facility] [place] [facility] [address] [id number] [place] [address] Jun, [facility] [place] [facility] [address] [id number] [place] [address]- [address] Jun, [facility] [place] [facility] [address] [id number] [place] [address] 14 May, 2011 [facility] [place] [facility] [address] [id number] [place] [address] Apr, [facility] [place] [facility] [address] [id number] [place] [address] January, [facility] [place] [facility] [address] [id number] [place] [address]- [address] 13 Dec, 2010 [facility] [place] [facility] [address] [id number] [place] [address]- [address]48 16 Nov, 2010 [facility] [place] [facility] [address] [id number] [place] [address] 10 Oct, 2010 [facility] [place] [facility] [address] [id number] [place] [address]- [address] 14 Jun, 2010 [facility] [place] [facility] [address] [id number], [place] [address] 14 Jun, 2010 [facility] [address] [facility] [id number], [place] [address] Oct, [facility] [address] [facility] [id number], [place] [address] Aug, [facility] [address] [facility] [id number], [place] [address] Jul, [place] [address] [facility] [id number], [place] [address] Dec, IMMUNIZATIONS No Known Immunizations SOCIAL HISTORY Never Assessed REASON FOR VISIT Ear lavage/pain-[place]woods, previously had an ear lavage at [facility]. right ear was not successful with lavage but left ear was successful. still has pain in right ear. PLAN OF CARE Activity Details Follow Up 3-5 days if not better Reason:cerumen impaction VITAL SIGNS Height 61 in 2018-03-24 Weight 187.2 lbs 2018-03-24 Temperature 98.9 degrees Fahrenheit 2018-03-24 Heart Rate 70 bpm 2018-03-24 Respiratory Rate 20 2018-03-24 BMI 35.37 kg/m2 2018-03-24 Blood pressure systolic 108 mmHg 2018-03-24 Blood pressure diastolic 70 mmHg 2018-03-24 MEDICATIONS Medication Instructions Dosage Frequency Start Date End Date Duration Status Flonase 50 MCG/ACT Nasally Once a day 1 spray in each nostril 24h Feb, 30 day(s) Active Claritin 10 MG Orally Once a day 1 tablet 24h Feb, Mar, 30 day(s) Active Benadryl Active RESULTS No Results PROCEDURES No Known [...]
--- OUTSIDE RECORDS SUMMARY | 2018-12-13 18:14 | XMS REPORT ---
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 Role Phone ZAYRA GOMEZ Unavailable PROBLEMS Type Condition ICD9-CM Code [id number] Code Onset Dates Condition Status SNOMED Code Problem Depression, unspecified depression type F32.9 Active 32673847 Problem Seasonal allergic rhinitis, unspecified allergic rhinitis trigger J30.2 Active 677910576 Problem Irregular periods/menstrual cycles N92.6 Active 58598808 Problem Seasonal allergies J30.2 Active 937980573 Problem Missed period N92.6 Active 48720745 Problem Other headache syndrome G44.89 Active 395908248 Problem Anemia, O90.81 Active 906581675 Problem DANIELLA (generalized anxiety disorder) F41.1 Active 98670929 Problem Dysthymic disorder F34.1 Active 38767800 ALLERGIES No Information ENCOUNTERS Encounter Location Date Diagnosis [facility] [address] [address] -[address]169 Mar, Pain of left calf M79.662 and Muscle spasm of left calf M62.831 [place] [id number] [place] [address] 51995- 1137 Mar, care in second trimester Z34.92 [facility] [id number] [place] [address] 04840- 7135 Mar, Bilateral impacted cerumen H61.23 [place] [address] 94016- 1918 Feb, [facility] [id number] [place] [address] 18577 -8066 Feb, [facility] [address] 80975- 5748 20 Feb, 2018 Normal in multigravida Z34.80 [facility] [id number] [place] [address] 51980- 4662 13 Feb, 2018 Painful urination R30.9 and Encounter for supervision of normal in second trimester Z34.92 [facility] [id number] [place] [address] 97274 -3081 07 Feb, 2018 Seasonal allergies J30.2 [facility] [address] 05384- 0025 Feb, [place] [address] 01639- 8426 Feb, [facility] [address] 50543 -[address] January, Seasonal allergic rhinitis, unspecified trigger J30.2 [facility] [address] 70217 -3731 January, [facility] [address] 45234 -8395 January, Viral gastroenteritis A08.4 [place] [address] 20910- 9584 January, [facility] [id number] [place] [address] 60246- 4544 January, care in first trimester Z34.91 [facility] [id number] [place] [address] 20731- 9480 January, [facility] [id number] [place] [address] 86783 -0695 January, Left ankle pain, unspecified chronicity M25.572 [facility] [id number] [place] [address] 17763- 1970 January, [facility] [id number] [place] [address] 81512- 2797 January, Dysthymic disorder F34.1 and DANIELLA (generalized anxiety disorder) F41.1 [facility] [id number] [place] [address] 89772 -2225 January, Impacted cerumen of both ears H61.23 [facility] [id number] [place] [address] 42391- 3054 Dec, [facility] [address] 95677- 8965 Dec, in multigravida Z34.80 [place] [address] 15067- 7358 Dec, DANIELLA (generalized anxiety disorder) F41.1 and Dysthymic disorder F34.1 [facility] [id number] [place] [address] 43255- 8647 Dec, [facility] [address] 12874- 9653 Nov, [place] [id number] [place] [address] 12786- 8221 Nov, [place] [address] 18522- 3295 Nov, Painful urination R30.9 ; Vaginal yeast infection B37.3 and Early stage of Z34.90 [place] [id number] [place] [address] 50704- 3251 Nov, in multigravida Z34.80 [place] [id number] [place] [address] 83668- 2985 Nov, Dysfunction of right eustachian tube H69.81 and Bilateral impacted cerumen H61.23 [facility] [id number] [place] [address] 48993- 6933 Nov, [facility] [address] 42449- 4808 Nov, [facility] [id number] [place] [address] 91789- 1523 Nov, [facility] [id number] [place] [address] 88199 -5798 Nov, Missed period N92.6 [place] [id number] [place] [address] 70412- 7279 Sep, DANIELLA (generalized anxiety disorder) F41.1 and Dysthymic disorder F34.1 [facility] [id number] [place] [address] 94373 -0625 Aug, Acute nasopharyngitis J00 [place] [address] 06631- 5189 Jul, Irregular periods/menstrual cycles N92.6 [place] [address] 69025- 5425 Jul, Bilateral impacted cerumen H61.23 [place] [id number] [place] [address] 54571- 0171 Jul, DANIELLA (generalized anxiety disorder) F41.1 and Dysthymic disorder F34.1 [place] [id number] [place] [address] 73156- 6451 Jun, [place] [id number] [place] [address] 46838- 6697 Jun, Dysthymic disorder F34.1 [place] [id number] [place] [address] 94920- 2535 Jun, Anemia, O90.81 ; Lower abdominal pain R10.30 ; Allergic contact dermatitis due to adhesives L23.1 and Other headache syndrome G44.89 [place] [id number] [place] [address] 18188- 8294 Jun, 39 weeks gestation of Z3A.39 [place] [address] 56364- 6868 27 May, 2017 care in third trimester Z34.93 [facility] [id number] [place] [address] 41452 -3449 24 May, 2017 Acute seasonal allergic rhinitis, unspecified trigger J30.2 [place] [id number] [place] [address] 45665- 5850 20 May, 2017 Normal in multigravida Z34.80 [facility] [address] 45979 -8849 17 May, 2017 Urinary frequency R35.0 and Pain of round ligament N94.9 [place] [address] 97984- 4844 13 May, 2017 35 weeks gestation of Z3A.35 [place] [address] 06574- 8263 Apr, High risk sexual behavior Z72.51 and 33 weeks gestation of Z3A.33 [place] [address] 97965- 6474 Apr, care in third trimester Z34.93 [facility] [id number] [place] [address] 82388 -4225 Apr, Bilateral impacted cerumen H61.23 [place] [id number] [place] [address] 08734- 0644 Apr, 30 weeks gestation of Z3A.30 and Encounter for immunization Z23 [place] [id number] [place] [address] 22423- 3680 Mar, 28 weeks gestation of Z3A.28 [place] [address] 08751- 8525 Mar, [place] [id number] [place] [address] 01026- 0576 Mar, [place] [address] 47622- 1934 Mar, [place] [id number] [place] [address] 46193- 1637 12 Mar, 2017 26 weeks gestation of Z3A.26 [facility] [id number] [place] [address] 14290 -8917 03 Mar, 2017 Acute back pain M54.[address] 22330- 0087 28 Feb, 2017 24 weeks gestation of Z3A.24 [facility] [address] [place] [id number] [place] [address] 42128 -1583 27 Feb, 2017 Lower abdominal pain R10.30 [facility] [address] [place] [id number] [place] [address] 41335 -7173 25 Feb, 2017 Gastroenteritis and colitis, viral A08.[address] 55861- 5925 14 Feb, 2017 care in second trimester Z34.92 [place] [id number] [place] [address] 47845- 3764 07 Feb, 2017 [facility] [address] [place] [id number] [place] [address] 64965 -6556 04 Feb, 2017 Abscess L02.91 [facility] [place] [id number] [place] [address] 76355 -1015 Feb, Vaginal flavia B37.3 [place] [id number] [place] [address] 30397- 6823 January, 20 weeks gestation of Z3A.20 [place] [id number] [place] [address] 01340- 7584 January, [facility] [address] [place] [id number] [place] [address] 90460 -6351 January, Seasonal allergic rhinitis, unspecified allergic rhinitis trigger J30.2 [facility] [address] [place] [id number] [address] -6303 January, Dermatitis L30.9 and Bug bites, initial encounter W57.XXXA [address] 92844- 6552 January, Sore throat J02.9 and Seasonal allergic rhinitis, unspecified allergic rhinitis trigger J30.[address] 83918- 2747 January, 16 weeks gestation of Z3A.16 [place] [address] 53149- 3019 Dec, care in first trimester Z34.[address] 95608- 5989 Nov, care in first trimester Z34.91 and Normal in multigravida Z34.80 [facility] [address] 25170 -2392 Oct, Nausea and vomiting during O21.[address] 39334- 9418 Oct, [place] [address] 43432- 4624 Oct, [address] 54134- 6073 Oct, Encounter for test, result unknown Z32.[address] 63934- 2897 Sep, Irregular periods/menstrual cycles N92.6 ; Sore throat J02.9 ; Nausea R11.0 and Right ear impacted cerumen H61.21 [facility] [address] [place] [id number] [place] [address] 96788 -3886 Jul, Vaginal discharge N89.8 ; Other specified bacterial agents as the cause of diseases classified elsewhere B96.89 and Acute vaginitis N76.0 [place] [id number] [place] [address] 86951- 0900 10 Jun, 2016 Depression, unspecified depression type F32.9 [place] [id number] [place] [address] 80293- 3056 23 May, 2016 Vaginal candidiasis B37.3 [place] [address] 23831- 9874 20 May, 2016 Acute pharyngitis, unspecified etiology J02.9 [place] [id number] [place] [address] 78190- 9332 19 May, 2016 Depression, unspecified depression type F32.9 [place] [id number] [place] [address] 21376- 6061 12 May, 2016 Depression, unspecified depression type F32.9 [place] [id number] [place] [address] 31088- 3052 12 May, 2016 Dysthymic disorder F34.1 [facility] [id number] [place] [address] 64228 -4628 Apr, Acute suppurative otitis media of right ear without spontaneous rupture of tympanic membrane, recurrence not specified H66.001 [facility] [id number] [place] [address] 87403 -5020 Mar, Herpes zoster without complication B02.9 [facility] [id number] [place] [address] 82740 -3065 Dec, Allergic rhinitis J30.9 [facility] [id number] [place] [address] 66167 -5634 Dec, Lumbago M54.5 [facility] [id number] [place] [address] 14459 -5373 18 Oct, 2015 Dysuria R30.0 and Urinary tract infection N39.0 [facility] [id number] [place] [address] 06730 -0007 Sep, Acute nasopharyngitis J00 and Strep pharyngitis J02.0 [place] [id number] [place] [address] 08196- 8204 Jul, Upper respiratory tract infection, unspecified type J06.9 [place] [id number] [place] [address] 74956- 1288 Jun, Irritable bowel syndrome without diarrhea K58.9 [place] [id number] [place] [address] 22254- 9244 Jun, [place] [address] 56330- 8974 May, [place] [id number] [place] [address] 58690- 1519 May, [place] [address] 94879- 1630 May, Otitis externa of left ear 380.10 [place] [id number] [place] [address] 40348- 1091 May, Pain in joint, ankle and foot 719.47 [place] [id number] [place] [address] 14440- 3473 Apr, Pain in joint, ankle and foot 719.47 [place] [id number] [place] [address] 58752- 5126 Mar, Dysuria 788.1 and Incontinence in female 625.6 [place] [id number] [place] [address] 19374- 6282 Feb, Plantar fasciitis of right foot 728.71 ; Ankle weakness 719.67 and Ankle pain, chronic 719.47 [place] [id number] [place] [address] 20161- 0393 Feb, [place] [id number] [place] [address] 20861- 0880 Feb, Belching 787.3 and Chest wall pain 786.52 [facility] [address] [id number] [place] [address]- 3556 14 Dec, 2014 [facility] [address] [id number] [place] [address]- 0758 Dec, [facility] [address] [id number] [place] [address]- 9343 16 Nov, 2014 [facility] [address] [id number] [place] [address]- 1815 Nov, [facility] [address] [id number] [place] [address], [place] [address]- 3397 Sep, [facility] [address] [facility] [id number] [place] [address]- 3931 Sep, [facility] [address] [place] [id number] [place] [address], [place] [address]- 4286 Sep, [facility] [address] [facility] [id number] [place] [address]- 3330 Sep, [facility] [address] [id number] [address]- 8485 Aug, [facility] [address] [facility] [id number] [place] [address]- 8406 Aug, [facility] [address] [id number] [address]- 3682 Aug, [facility] [address] [facility] [id number] [place] [address]- 7121 Aug, [facility] [address] [facility] [id number] [place] 0122 Aug, [facility] [address] [facility] [id number] [place]- 1537 Aug, [facility] [address] [facility] [id number] [place] 9036 Aug, [facility] [place] [facility] [address] [id number] [place] [address]- 5603 Aug, [facility] [place] [facility] [address] [id number] [place] 1798 Aug, [facility] [place] [facility] [address] [id number] [place] [address]- 4451 Aug, [facility] [place] [facility] [address] [id number] [place] [address]- 7155 Aug, [facility] [place] [facility] [address] [id number] [place] [address]- 3849 Aug, [facility] [place] [facility] [address] [id number] [place] [address]- 3536 Aug, [facility] [place] [facility] [address] [id number] [place] [address]- 8006 Aug, [facility] [place] [facility] [address] [id number] [place] [address]- 6438 Jul, [facility] [place] [facility] [address] [id number] [place] [address]- 6286 Jul, [facility] [place] [facility] [address] [id number] [place] [address]- 5486 Jul, [facility] [place] [facility] [address] [id number] [place] [address]- 4071 Jul, [facility] [place] [facility] [address] [id number] [place] [address]- 0689 Jul, [facility] [place] [facility] [address] [id number] [place] [address]- 1516 Jul, [facility] [place] [facility] [address] [id number] [place] [address]- 1484 Jul, [facility] [place] [facility] [address] [id number] [place] 9956 Jun, [facility] [place] [facility] [address] [id number] [place] [address]- 9466 Jun, [facility] [place] [facility] [address] [id number] [place] [address]- 7079 Jun, [facility] [place] [facility] [address] [id number] [place]- 9463 Jun, [facility] [place] [facility] [address] [id number] [place] [address]- 9131 Jun, [facility] [place] [facility] [address] [id number] [place] [address]- 0253 Jun, [facility] [place] [facility] [address] [id number] [place] [address]- 6014 Jun, [facility] [place] [facility] [address] [id number] [place] [address]- 0116 Jun, [facility] [place] [facility] [address] [id number] [place] [address]- 5620 Jun, [facility] [place] [facility] [address] [id number] [place] [address]- 0507 Jun, [facility] [place] [facility] [address] [id number] [place] [address]- 7999 Jun, [facility] [place] [facility] [address] [id number] [place] [address]- 8390 Jun, [facility] [place] [facility] [address] [id number] [place] [address]- 1224 Jun, [facility] [place] [facility] [address] [id number] [place] [address]- 8316 Jun, [facility] [place] [facility] [address] [id number] [place] [address]- 4156 May, [facility] [place] [facility] [address] [id number] [place] [address]- 0977 May, [facility] [place] [facility] [address] [id number] [place] [address]- 1876 May, [facility] [place] [facility] [address] [id number] [place] [address]- 7888 May, [facility] [place] [facility] [address] [id number] [place] [address]- 3359 May, [facility] [place] [facility] [address] [id number] [place] [address]- 9407 Apr, [facility] [place] [facility] [address] [id number] [place] [address]- 1008 Apr, [facility] [place] [facility] [address] [id number] [place] [address]- 2705 Apr, [facility] [place] [facility] [address] [id number] [place] [address]- 1543 Apr, [facility] [place] [facility] [address] [id number] [place] [address]- 7633 Mar, [facility] [place] [facility] [address] [id number] [place] [address]- 9307 Mar, [facility] [place] [facility] [address] [id number] [place] [address]- 6833 Mar, [facility] [place] [facility] [address] [id number] [place] [address]- 3796 Mar, [facility] [place] [facility] [address] [id number] [place] [address]- 3950 Mar, [facility] [place] [facility] [address] [id number] [place] [address]- 3926 Mar, [facility] [place] [facility] [address] [id number] [place] [address]- 4559 Mar, [facility] [place] [facility] [address] [id number] [place] [address]- 2217 Mar, [facility] [place] [facility] [address] [id number] [place] [address]- 7128 Feb, [facility] [place] [facility] [address] [id number] [place] 6656 Feb, [facility] [place] [facility] [address] [id number] [place] [address]- 0896 Feb, [facility] [place] [facility] [address] [id number] [place] [address]- 1047 Feb, [facility] [place] [facility] [address] [id number] [place] [address]- 7941 Feb, [facility] [place] [facility] [address] [id number] [place] [address]- 6952 Feb, [facility] [place] [facility] [address] [id number] [place] [address]- 9946 Feb, [facility] [place] [facility] [address] [id number] [place] [address]- 8985 Feb, [facility] [place] [facility] [address] [id number] [place] [address]- 1083 January, [facility] [place] [facility] [address] [id number] [place] [address] January, [facility] [place] [facility] [address] [id number] [place] [address] January, [facility] [place] [facility] [address] [id number] [place] [address] January, [facility] [place] [facility] [address] [id number] [place] [address] January, [facility] [place] [facility] [address] [id number] [place] [address] January, [facility] [place] [facility] [address] [id number] [place] [address] Dec, [facility] [place] [facility] [address] [id number] [place] [address] Dec, [facility] [place] [facility] [address] [id number] [place] [address] Dec, [facility] [place] [facility] [address] [id number] [place] [address] Dec, [facility] [address] [id number] [place] [address] Dec, [facility] [place] [facility] [address] [id number] [place] [address] Dec, [facility] [place] [facility] [address] [id number] [place] [address] Dec, [facility] [place] [facility] [address] [id number] [place] [address] Dec, [facility] [place] [facility] [address] [id number] [place] [address] Oct, [facility] [place] [facility] [address] [id number] [place] [address] Oct, [facility] [address] [id number] [place] [address] Aug, [facility] [place] [facility] [address] [id number] [place] [address] Aug, [facility] [place] [facility] [address] [id number] [place] [address] Jul, [facility] [place] [facility] [address] [id number] [place] [address] Jul, [facility] [place] [facility] [address] [id number] [place] [address] Mar, [facility] [place] [facility] [address] [id number] [place] [address] Mar, [facility] [place] [facility] [address] [id number] [place] [address] Mar, [facility] [place] [facility] [address] [id number] [place] [address] 2013 Feb, [facility] [place] [facility] [address] [id number] [place] [address] Feb, [facility] [place] [facility] [address] [id number] [place] [address] Feb, [facility] [address] [id number] [place] [address] January, [facility] [address] [id number] [place] [address] January, [facility] [address] [id number] [place] [address] January, [facility] [address] [id number] [place] [address] January, [facility] [address] [id number] [place] [address] January, [facility] [address] [id number] [place] [address] January, [facility] [address] [id number] [place] [address] January, [facility] [address] [id number] [place] [address] Dec, [facility] [address] [id number] [place] [address] Dec, [facility] [address] [id number] [place] [address] Dec, [facility] [address] [id number] [place] [address] Dec, [facility] [address] [id number] [place] [address] Nov, [facility] [place] [facility] [address] [id number] [place] [address] Nov, [facility] [place] [facility] [address] [id number] [place] [address] Nov, [facility] [address] [id number] [place] [address] Oct, [facility] [address] [id number] [place] [address] Oct, [facility] [address] [id number] [place] [address] Oct, [facility] [address] [id number] [place] [address] Oct, [facility] [address] [id number] [place] [address] Oct, [facility] [address] [id number] [place] [address] 05 Oct, 2012 [facility] [address] [id number] [place] [address] 30 Sep, 2012 [facility] [address] [id number] [place] [address] Sep, [facility] [address] [id number] [place] [address] Sep, [facility] [address] [id number] [place] [address] Sep, [facility] [address] [facility] [id number] [place] [address] Sep, [facility] [address] [id number] [place] [address] Aug, [facility] [address] [id number] [place] [address] Aug, [facility] [address] [id number] [place] [address] Aug, [facility] [address] [id number] [place] [address] Aug, [facility] [address] [id number] [place] [address] Aug, [facility] [place] [facility] [address] [id number] [place] [address] Aug, [facility] [place] [facility] [address] [id number] [place] [address] Jul, [facility] [place] [facility] [address] [id number] [place] [address] Jul, [facility] [place] [facility] [address] [id number] [place] [address] 47[address] Jul, [facility] [place] [facility] [address] [id number] [place] [address] Jul, [facility] [place] [facility] [address] [id number] [place] [address] Jul, [facility] [place] [facility] [address] [id number] [place] [address] Jul, [facility] [place] [facility] [address] [id number] [place] [address] Jul, [facility] [place] [facility] [address] [id number] [place] [address] 15 Jul, 2012 [facility] [place] [facility] [address] [id number] [place] [address]- [address] 14 Jul, 2012 [facility] [place] [facility] [address] [id number] [place] [address] Jul, [facility] [place] [facility] [address] [id number] [place] [address] Jul, [facility] [place] [facility] [address] [id number] [place] [address] Jul, [facility] [place] [facility] [address] [id number] [place] [address] Jul, [facility] [place] [facility] [address] [id number] [place] [address] 08 Jul, 2012 [facility] [place] [facility] [address] [id number] [place] [address] Jul, [facility] [place] [facility] [address] [id number] [place] [address] 2546 08 Jul, 2012 [facility] [place] [facility] [address] [id number] [place] [address] Jul, [facility] [place] [facility] [address] [facility] [id number] [place] [address]- [address] Jul, [facility] [place] [facility] [address] [id number] [place] [address] Jul, [facility] [place] [facility] [address] [id number] [place] [address] 2546 Jun, [facility] [place] [facility] [address] [id number] [place] [address] 25[address] Jun, [facility] [place] [facility] [address] [facility] [id number] [place] [address]- [address] May, [facility] [place] [facility] [address] [id number] [place] [address] Apr, [facility] [place] [facility] [address] [id number] [place] [address] Mar, [facility] [place] [facility] [address] [facility] [id number] [place] [address] Feb, [facility] [place] [facility] [address] [facility] [id number] [place] [address]- [address] Feb, [facility] [place] [facility] [address] [id number] [place] [address]- [address] Feb, [facility] [place] [facility] [address] [id number] [place] [address]- [address] January, [facility] [place] [facility] [address] [facility] [id number] [place] [address] 25[address] January, [facility] [place] [facility] [address] [facility] [id number] [place] [address]- [address] Dec, [facility] [place] [facility] [address] [id number] [place] [address]- [address] 25 Dec, 2011 [facility] [place] [facility] [address] [id number] [place] [address]- [address] 08 Nov, 2011 [facility] [place] [facility] [address] [id number] [place] [address]- [address] 12 Aug, 2011 [facility] [place] [facility] [address] [id number] [place] [address]- [address] 16 Jul, 2011 [facility] [place] [facility] [address] [id number] [place] [address]- [address] 16 Jul, 2011 [facility] [place] [facility] [address] [id number] [place] [address]- [address]282 16 Jul, 2011 [facility] [place] [facility] [address] [id number] [place] [address]- [address] 12 Jun, 2011 [facility] [place] [facility] [address] [id number] [place] [address]- [address]287 12 Jun, 2011 [facility] [place] [facility] [address] [id number] [place] [address]- [address] 14 May, 2011 [facility] [place] [facility] [address] [id number] [place] [address]- [address] 10 Apr, 2011 [facility] [place] [facility] [address] [id number] [place] [address]- 04[address] January, [facility] [place] [facility] [address] [id number] [place] [address]- 1479 13 Dec, 2010 [facility] [place] [facility] [address] [id number] [place] [address]- 5163 16 Nov, 2010 [facility] [place] [facility] [address] [id number] [place] [address]- [address]306 10 Oct, 2010 [facility] [place] [facility] [address] [id number] [place] [address]- 68[address] 14 Jun, 2010 [facility] [place] [facility] [address] [id number] [place] [address]- [address] Jun, [facility] [address] [facility] [id number] [place] [address] Oct, [facility] [address] [id number] [place] [address] Aug, [facility] [address] [id number] [place] [address] Jul, [facility] [address] [id number] [place] [address] Dec, IMMUNIZATIONS No Known Immunizations SOCIAL [...]
--- OUTSIDE RECORDS SUMMARY | 2018-12-13 18:27 | XMS REPORT | Continuity of Care Document ---
Author Author [facility] Address Unknown Phone Unavailable Allergies Active Description Code Type Severity Reaction Onset Reported/Identified Relationship to Patient Clinical Status Yes amoxicillin Drug Allergy N/A N/A 11/26/2008 Yes bees OA N/A N/A 11/26/2008 Yes amoxicillin Drug Allergy 11/26/2008 Yes bees OA 11/26/2008 Yes cefaclor [id number] Drug Allergy Mild N/A 03/11/2009 Yes Ceclor Drug Allergy N/A N/A 11/01/2010 Yes Ceclor Drug Allergy 11/01/2010 Yes amoxicillin [id number] Drug Allergy Unknown N/A 07/09/2014 Yes BEE'S [...] ROPER APRN V70.3 Sports/school Exam 11/26/2008 OZZIE MERCHANDISER, MARLIN S 719.47 Pain In Joint Involving [...] CHARLESA K V70.3 Sports/school Exam 11/26/2008 PORRAS DERICK CHARLES 719.47 Pain In Joint Involving Ankle [...] S 465.9 Upper Respiratory Infection 01/06/2009 JUDSON MERCHANDISER, GILBERTO A 465.9 Upper Respiratory Infection 01/06/2009 JUDSON MERCHANDISER, GILBERTO A 465.9 Upper Respiratory Infection 01/06/2009 465.9 Upper Respiratory Infection 01/06/2009 JUDSON MERCHANDISER, GILBERTO A 465.9 Upper Respiratory Infection 01/06/2009 SHAHID MONTESANOSILVA VALDEZ APRN N 465.9 Upper Respiratory Infection 01/06/2009 OZZIE MERCHANDISER, MARLIN S 465.9 Upper Respiratory Infection 01/06/2009 JUDSON MERCHANDISER, GILBERTO A 465.9 Upper Respiratory Infection 01/06/2009 [...] MD 465.9 Upper Respiratory Infection 01/06/2009 JUDSON MERCHANDISER, GILBERTO A 465.9 Upper Respiratory Infection 01/06/2009 ALAN SUAREZ MD 465.9 Upper Respiratory Infection 01/06/2009 ALAN SUAREZ MD 465.9 Upper Respiratory Infection 01/06/2009 ZAYRA GOMEZ MD 465.9 Upper Respiratory Infection 01/06/2009 ALAN SUAREZ MD 465.9 Upper Respiratory Infection 01/06/2009 JUDSON MERCHANDISER, GILBERTO A 465.9 Upper Respiratory Infection 01/06/2009 [...] DOHOSEAA K V74.5 Std Screen 08/24/2009 JUDSON MERCHANDISER, GILBERTO A V25.41 Visit For: Contraceptive Surveillance Pill 08/24/2009 JUDSON MERCHANDISER, GILBERTO A V69.2 Sexually Active, Frequently With New Partners 08/24/2009 JUDSON MERCHANDISER, GILBERTO A V72.31 Pelvic Exam (internal) 08/24/2009 JUDSON MERCHANDISER, GILBERTO A V74.5 Std Screen 08/24/2009 RAMEZ HORNE APRNNDA S V25.41 Visit For: Contraceptive Surveillance Pill 08/24/2009 OZZIE MERCHANDISER MARLIN S V69.2 Sexually Active, Frequently With New Partners 08/24/2009 OZZIE MERCHANDISERRAMEZMARLIN S V72.31 Pelvic Exam (internal) 08/24/2009 OZZIE MERCHANDISER MARLIN S V74.5 Std Screen 08/24/2009 JUDSON MERCHANDISER, GILBERTO A V25.41 Visit For: Contraceptive Surveillance Pill 08/24/2009 JUDSON MERCHANDISER, GILBERTO A V69.2 Sexually Active, Frequently With New Partners 08/24/2009 JUDSON MERCHANDISER, GILBERTO A V72.31 Pelvic Exam (internal) 08/24/2009 JUDSON MERCHANDISER, GILBERTO A V74.5 Std Screen 08/24/2009 JUDSON MERCHANDISER, GILBERTO A V25.41 Visit For: Contraceptive Surveillance Pill 08/24/2009 JUDSON MERCHANDISER, GILBERTO A V69.2 Sexually Active, Frequently With New Partners 08/24/2009 JUDSON MERCHANDISER, GILBERTO A V72.31 Pelvic Exam (internal) 08/24/2009 JUDSON MERCHANDISER, GILBERTO A V74.5 Std Screen 08/24/2009 V25.41 Visit For: Contraceptive Surveillance Pill 08/24/2009 V69.2 Sexually Active, Frequently With New Partners 08/24/2009 V72.31 Pelvic Exam ( internal) 08/24/2009 V74.5 Std Screen 08/24/2009 JUDSON MERCHANDISER, GILBERTO A V25.41 Visit For: Contraceptive Surveillance Pill 08/24/2009 JUDSON MERCHANDISER, GILBERTO A V69.2 Sexually Active, Frequently With New Partners 08/24/2009 JUDSON MERCHANDISER, GILBERTO A V72.31 Pelvic Exam (internal) 08/24/2009 JUDSON MERCHANDISER, GILBEROT A V74.5 Std Screen 08/24/2009 SHAHID KELLY MERCHANDISER, SILVA N V25.41 Visit For: Contraceptive Surveillance Pill 08/24/2009 SHAHID CASHERO MERCHANDISER, SILVA N V69.2 Sexually Active, Frequently With New Partners 08/24/2009 SHAHID CASHERO MERCHANDISER, SILVA N V72.31 Pelvic Exam (internal) 08/24/2009 SHAHID CASHERO MERCHANDISER, SILVA N V74.5 Std Screen 08/24/2009 OZZIE MERCHANDISER, MARLIN S V25.41 Visit For: Contraceptive Surveillance Pill 08/24/2009 OZZIE MERCHANDISER, MARLIN S V69.2 Sexually Active, Frequently With New Partners 08/24/2009 OZZIE MERCHANDISER, MARLIN S V72.31 Pelvic Exam (internal) 08/24/2009 OZZIE MERCHANDISER, MARLIN S V74.5 Std Screen 08/24/2009 JUDSON MERCHANDISER, GILBERTO A V25.41 Visit For: Contraceptive Surveillance Pill 08/24/2009 JUDSON MERCHANDISER, GILBERTO A V69.2 Sexually Active, Frequently With New Partners 08/24/2009 JUDSON MERCHANDISER, GILBERTO A V72.31 Pelvic Exam (internal) 08/24/2009 JUDSON MERCHANDISER, GILBERTO A V74.5 Std Screen 08/24/2009 PORRAS [...] Visit For: Contraceptive Surveillance Pill 08/24/2009 JUDSON MERCHANDISER, GILBERTO A V69.2 Sexually Active, Frequently With New Partners 08/24/2009 JUDSON MERCHANDISER, GILBERTO A V72.31 Pelvic Exam (internal) 08/24/2009 JUDSON MERCHANDISER, GILBERTO A V74.5 Std Screen 08/24/2009 CHIQUITA [...] DERICK K V74.5 Std Screen 08/24/2009 MADL MERCHANDISER, JAMIA L V25.41 Visit For: Contraceptive Surveillance Pill 08/24/2009 MADL MERCHANDISER, JAMIA L V69.2 Sexually Active, Frequently With New Partners 08/24/2009 MADL MERCHANDISER, JAMIA L V72.31 Pelvic Exam (internal) 08/24/2009 [...] APRN S 388.70 Ear Ache 11/02/2009 JUDSON MERCHANDISER, GILBERTO A 388.70 Ear Ache 11/02/2009 JUDSONTRENT GRADY, GILBERTO A 388.70 Ear Ache 11/02/2009 388.70 Ear Ache 11/02/2009 JUDSON MERCHANDISER, GILBERTO A 388.70 Ear Ache 11/02/2009 SILVA VALENZUELA APRN 388.70 Ear Ache 11/02/2009 MARLIN [...] K 300.4 MO DYSTHYMIC DISORDER 11/23/2009 JUDSON MERCHANDISER, GILBERTO A 300.4 MO DYSTHYMIC DISORDER 11/23/2009 OZZIE GRADY MARLIN S 300.4 MO DYSTHYMIC DISORDER 11/23/2009 JUDSON MERCHANDISER, GILBERTO A 300.4 MO DYSTHYMIC DISORDER 11/23/2009 [...] 296.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 Mood Dis Nos 12/14/2009 JUDSON MERCHANDISER, GILBERTO A 296.90 Mo Mood Dis Nos 12/14/2009 OZZIE MERCHANDISER, MARLIN S 296.90 Mo Mood Dis Nos 12/14/2009 JUDSON MERCHANDISER, GILBERTO A 296.90 Mo Mood Dis Nos 12/14/2009 JUDSON MERCHANDISER, GILBERTO A 296.90 Mo Mood Dis Nos 12/14/2009 296.90 Mo Mood Dis Nos 12/14/2009 JUDSON HERNÁNDEZN, GILBERTO A 296.90 Mo Mood Dis Nos 12/14/2009 ZEHRA MENDOZA MERCHANDISER, SILVA N 296.90 Mo Mood Dis Nos 12/14/2009 OZZIE MERCHANDISER, MARLIN S 296.90 Mo Mood Dis Nos 12/14/2009 JUDSON MERCHANDISER, GILBERTO A 296.90 Mo Mood Dis Nos [...] 296.90 Mo Mood Dis Nos 12/14/2009 JUDSON MERCHANDISER, GILBERTO A 296.90 Mo Mood Dis Nos [...] 626.0 Absence Of Menstruation 05/14/2010 SHAHID CASHERO MERCHANDISER, SILVA N 626.0 Absence Of Menstruation 05/14/2010 [...] A 789.00 Abdominal Pain Unspecified Site 06/12/2010 [facility] SILVA GRADY N 789.00 Abdominal Pain [...] Examination Or Test Positive Result 10/20/2010 JUDSON MERCHANDISER, GILBERTO A V72.42 Examination Or Test Positive [...] K 633.00 Abdominal Without Intrauterine 10/22/2010 JUDSON MERCHANDISER, GILBERTO A 633.00 Abdominal Without Intrauterine 10/22/2010 OZZIE MERCHANDISER, MARLIN S 633.00 Abdominal Without Intrauterine 10/22/2010 JUDSON MERCHANDISER, GILBERTO A 633.00 Abdominal Without Intrauterine 10/22/2010 JUDSON MERCHANDISER, GILBERTO A 633.00 Abdominal Without Intrauterine 10/22/2010 633.00 Abdominal Without Intrauterine 10/22/2010 JUDSON MERCHANDISER, GILBERTO A 633.00 Abdominal Without Intrauterine 10/22/2010 [facility] MERCHANDISER, SILVA N 633.00 Abdominal Without Intrauterine 10/22/2010 OZZIE MERCHANDISER, MARLIN S 633.00 Abdominal Without Intrauterine 10/22/2010 JUDSON MERCHANDISER, GILBERTO A 633.00 Abdominal Without Intrauterine 10/22/2010 [...] PORRAS DO K 640.00 Threatened 11/01/2010 JUDSON MERCHANDISER, GILBERTO A 640.00 Threatened 11/01/2010 OZZIE MERCHANDISER, MARLIN S 640.00 Threatened 11/01/2010 JUDSON MERCHANDISER, GILBERTO A 640.00 Threatened 11/01/2010 JUDSON MERCHANDISER, GILBERTO A 640.00 Threatened 11/01/2010 640.00 Threatened 11/01/2010 JUDSON MERCHANDISER, GILBERTO A 640.00 Threatened 11/01/2010 SHAHID CRISTINACOURTNEY MERCHANDISER, SILVA N 640.00 Threatened 11/01/2010 OZZIE MERCHANDISER, MARLIN S 640.00 Threatened 11/01/2010 JUDSON MERCHANDISER, GILBERTO A 640.00 Threatened 11/01/2010 DERICK PORRAS DO K 640.00 Threatened 11/01/2010 HOSEA PORRAS DOA K 640.00 Threatened 11/01/2010 ZAYRA GOMEZ MD 640.00 Threatened 11/01/2010 ZAYRA GOMEZ MD 640.00 Threatened 11/01/2010 OZZIE MERCHANDISER, MARLIN S 640.00 Threatened 11/01/2010 ZAYRA GOMEZ MD 640.00 Threatened 11/01/2010 ZAYRA GOMEZ MD 640.00 Threatened 11/01/2010 ZAYRA GOMEZ MD 640.00 Threatened 11/01/2010 SUSANNE MERCHANDISERBENITEZ Deshpande 640.00 Threatened 11/01/2010 ZAYRA GOMEZ MD 640.00 Threatened 11/01/2010 JUDSON MERCHANDISER, GILBERTO A 640.00 Threatened 11/01/2010 ALAN SUAREZ MD 640.00 Threatened 11/01/2010 ALAN SUAREZ MD N 640.00 Threatened 11/01/2010 ZAYRA GOMEZ MD 640.00 Threatened 11/01/2010 ALAN SUAREZ MD N 640.00 Threatened 11/01/2010 JUDSON MERCHANDISER, GILBERTO A 640.00 Threatened 11/01/2010 PORRAS DO, DERICK K 640.00 Threatened 11/01/2010 PORRAS DO, DERICK K 640.00 Threatened 11/01/2010 MADL MERCHANDISER, JAMIA Taylor 640.00 Threatened 11/14/2010 PORRAS DO, [...] K V22.0 , Normal First 11/14/2010 JUDSON MERCHANDISER, GILBERTO A V22.0 , Normal First 11/14/2010 OZZIE MERCHANDISER, MARLIN S V22.0 , Normal First 11/14/2010 JUDSON MERCHANDISER, GILBERTO A V22.0 , Normal First 11/14/2010 JUDSON MERCHANDISER, GILBERTO A V22.0 , Normal First 11/14/2010 V22.0 , Normal First 11/14/2010 JUDSON MERCHANDISER, GILBERTO A V22.0 , Normal First 11/14/2010 ZEHRA MENDOZA MERCHANDISER, SILVA N V22.0 , Normal First 11/14/2010 OZZIE GRADY, MARLIN S V22.0 , Normal First 11/14/2010 JUDSON MERCHANDISER, GILBERTO A V22.0 , Normal First 11/14/2010 [...] K V22.0 , Normal First 11/14/2010 MADClaudia MERCHANDISER, JAMIA L V22.0 , Normal First 11/22/2010 PORRAS DO, DERICK K 616.10 Vaginitis Vulvovaginitis Unspecified 11/22/2010 DERICK PORRAS DO K 616.10 Vaginitis Vulvovaginitis Unspecified 11/22/2010 616.10 Vaginitis Vulvovaginitis Unspecified 11/22/2010 PORRAS DERIKC CHARLES K 616.10 Vaginitis Vulvovaginitis Unspecified 11/22/2010 [...] 11/22/2010 616.10 Vaginitis Vulvovaginitis Unspecified 11/22/2010 JUDSON MERCHANDISER, GILBERTO A 616.10 Vaginitis Vulvovaginitis Unspecified 11/22/2010 SHAHID MONTESANOCOURTNEY GRADY, SILVA N 616.10 Vaginitis Vulvovaginitis Unspecified [...] HORNE APRN V04.81 Flu Shot 12/05/2010 JUDSON MERCHANDISER, GILBERTO A V04.81 Flu Shot 12/05/2010 JUDSON MERCHANDISER, GILBERTO A V04.81 Flu Shot 12/05/2010 V04.81 Flu Shot 12/05/2010 JUDSON MERCHANDISER, GILBERTO A V04.81 Flu Shot 12/05/2010 ZEHRA MENDOZA APRN, SILVA N V04.81 Flu Shot 12/05/2010 OZZIE GRADY, MARLIN S V04.81 Flu Shot 12/05/2010 JUDSON MERCHANDISER, GILBERTO A V04.81 Flu Shot 12/05/2010 PORRAS [...] K 785.2 UNDIAGNOSED CARDIAC MURMURS 01/02/2011 JUDSON MERCHANDISER, GILBERTO A 785.2 UNDIAGNOSED CARDIAC MURMURS 01/02/2011 BRISEIDA HORNE APRNA S 785.2 UNDIAGNOSED CARDIAC MURMURS 01/02/2011 JUDSON MERCHANDISER, GILBERTO A 785.2 UNDIAGNOSED CARDIAC MURMURS 01/02/2011 JUDSON MERCHANDISER, GILBERTO A 785.2 UNDIAGNOSED CARDIAC MURMURS 01/02/2011 785.2 UNDIAGNOSED CARDIAC MURMURS 01/02/2011 JUDSON MERCHANDISER, GILBERTO A 785.2 UNDIAGNOSED CARDIAC MURMURS 01/02/2011 ZEHRA MENDOZA MERCHANDISERSILVA Deshpande N 785.2 UNDIAGNOSED CARDIAC MURMURS 01/02/2011 RAMEZ HORNE APRNNDA S 785.2 UNDIAGNOSED CARDIAC MURMURS 01/02/2011 JUDSON MERCHANDISER, GILBERTO A 785.2 UNDIAGNOSED CARDIAC MURMURS 01/02/2011 [...] K 692.9 Dermatitis Contact Unspecified 01/16/2011 JUDSON MERCHANDISER, GILBERTO A 692.9 Dermatitis Contact Unspecified 01/16/2011 BRISEIDA HORNE APRNA S 692.9 Dermatitis Contact Unspecified 01/16/2011 JUDSON MERCHANDISER, GILBERTO A 692.9 Dermatitis Contact Unspecified 01/16/2011 JUDSON MERCHANDISER, GILBERTO A 692.9 Dermatitis Contact Unspecified 01/16/2011 692.9 Dermatitis Contact Unspecified 01/16/2011 JUDSON MERCHANDISER, GILBERTO A 692.9 Dermatitis Contact Unspecified 01/16/2011 ZEHRA MENDOZA MERCHANDISER, SILVA N 692.9 Dermatitis Contact Unspecified 01/16/2011 OZZIE GRADY MARLIN S 692.9 Dermatitis Contact Unspecified 01/16/2011 JUDSON MERCHANDISER, GILBERTO A 692.9 Dermatitis Contact Unspecified 01/16/2011 PORRAS DO, DERICK K 692.9 Dermatitis Contact Unspecified 01/16/2011 PORRAS DO, DERICK K 692.9 Dermatitis Contact Unspecified 01/16/2011 JASON IFNNEY, ZAYRA Shea 692.9 Dermatitis Contact Unspecified 01/16/2011 JASON FINNEY, ZAYRA Shea 692.9 Dermatitis Contact Unspecified 01/16/2011 MARLIN HORNE APRN 692.9 Dermatitis Contact Unspecified 01/16/2011 JASON FINNEY, ZAYRA Shea 692.9 Dermatitis Contact Unspecified 01/16/2011 ZAYRA GOMEZ [...] DO DERICK K 791.5 Glycosuria 05/01/2011 JUDSON MERCHANDISER, GILBERTO A 791.5 Glycosuria 05/01/2011 OZZIEROMAINE GRADY, MARLIN S 791.5 Glycosuria 05/01/2011 JUDSON MERCHANDISER, GILBERTO A 791.5 Glycosuria 05/01/2011 JUDSON GRADY [...] PORRAS DO V25.01 Oral Contraceptives 08/07/2011 JUDSON MERCHANDISER, GILBERTO A V24.2 Visit For: Exam 08/07/2011 JUDSON MERCHANDISER, GILBERTO A V25.01 Oral Contraceptives 08/07/2011 BRISEIDA HORNE APRNA S V24.2 Visit For: Exam 08/07/2011 BRISEIDA HORNE APRNA S V25.01 Oral Contraceptives 08/07/2011 JUDSONCharlee GARDY GILBERTO A V24.2 Visit For: Exam 08/07/2011 JUDSON HERNÁNDEZN, GILBERTO A V25.01 Oral Contraceptives 08/07/2011 JUDSON APRN, GILBERTO A V24.2 Visit For: Exam 08/07/2011 JUDSON GRADY, GILBERTO A V25.01 Oral Contraceptives 08/07/2011 V24.2 Visit For: Exam 08/07/2011 V25.01 Oral Contraceptives 08/07/2011 JUDSON HERNÁNDEZN, GILBERTO A V24.2 Visit For: Exam 08/07/2011 JUDSON HERNÁNDEZN, GILBERTO A V25.01 Oral Contraceptives 08/07/2011 SHAHID CASHERO MERCHANDISER, SILVA N V24.2 Visit For: Exam 08/07/2011 SHAHID CASHERO MERCHANDISER, SILVA N V25.01 Oral Contraceptives 08/07/2011 RAMEZ HORNE APRNNDA S V24.2 Visit For: Exam 08/07/2011 OZZIE GRADY MARLIN S V25.01 Oral Contraceptives 08/07/2011 JUDSON MERCHANDISER, GILBERTO A V24.2 Visit For: Exam 08/07/2011 [...] Abnormal Bleeding From Female Genital Tract 02/08/2012 BENITZE SKINNER APRN 626.8 Other Disorders Of Menstruation [...] 789.00 Abdominal Pain Unspecified Site 02/10/2012 JUDSON MERCHANDISER, GILBERTO A 626.4 Irregular Menstrual Cycle 02/10/2012 JUDSON MERCHANDISER, GILBERTO A 789.00 Abdominal Pain Unspecified Site 02/10/2012 PORRAS DO, DERCIK K 626.4 Irregular Menstrual Cycle 02/10/2012 PORRAS DO, DERICK K 789.00 Abdominal Pain Unspecified Site 02/10/2012 PORRAS DO, DERICK K 626.4 Irregular Menstrual Cycle 02/10/2012 OPRRAS DO, DERICK K 789.00 Abdominal Pain Unspecified Site 02/10/2012 MADL MERCHANDISER, JAMIA L 626.4 Irregular Menstrual Cycle 02/10/2012 MADL MERCHANDISER, JAMIA L 789.00 Abdominal Pain Unspecified Site [...] K 724.2 BACK PAIN, LOWER 02/25/2012 JUDSON MERCHANDISER, GILBERTO A 724.2 BACK PAIN, LOWER 02/25/2012 MARLIN HORNE APRN S 724.2 BACK PAIN, LOWER 02/25/2012 JUDSON MERCHANDISER, GILBERTO A 724.2 BACK PAIN, LOWER 02/25/2012 JUDSON MERCHANDISER, GILBERTO A 724.2 BACK PAIN, LOWER 02/25/2012 724.2 BACK PAIN, LOWER 02/25/2012 JUDSON MERCHANDISER, GILBERTO A 724.2 BACK PAIN, LOWER 02/25/2012 ZEHRA MENDOZA MERCHANDISER, SILVA N 724.2 BACK PAIN, LOWER 02/25/2012 BRISEIDA HORNE APRNA S 724.2 BACK PAIN, LOWER 02/25/2012 JUDSON MERCHANDISER, GILBERTO A 724.2 BACK PAIN, LOWER 02/25/2012 [...] MD 724.2 BACK PAIN, LOWER 02/25/2012 JUDSON MERCHANDISER, GILBERTO A 724.2 BACK PAIN, LOWER 02/25/2012 DANIELA MD, ALAN N 724.2 BACK PAIN, LOWER 02/25/2012 DANIELA FINNEY, ALAN Deshpande 724.2 BACK PAIN, LOWER 02/25/2012 JASON IFNNEY, ZAYRA Shea 724.2 BACK PAIN, LOWER 02/25/2012 DANIELA FINNEY, ALAN N 724.2 BACK PAIN, LOWER 02/25/2012 JUDSONTRENT GRADY, GILBERTO A 724.2 BACK PAIN, LOWER 02/25/2012 PORRAS DO, DERICK K 724.2 BACK PAIN, LOWER 02/25/2012 PORRAS DO, DERICK K 724.2 BACK PAIN, LOWER 02/25/2012 MADL MERCHANDISER, JAMIA Taylor 724.2 BACK PAIN, LOWER 03/02/2012 [...] 720.2 SACROILIITIS NOT ELSEWHERE CLASSIFIED 03/02/2012 JUDSON MERCHANDISER, GILBERTO A 720.2 SACROILIITIS NOT ELSEWHERE CLASSIFIED 03/02/2012 OZZIE GRADY, MARLIN S 720.2 SACROILIITIS NOT ELSEWHERE CLASSIFIED 03/02/2012 JUDSON MERCHANDISER, GILBERTO A 720.2 SACROILIITIS NOT ELSEWHERE CLASSIFIED 03/02/2012 JUDSON MERCHANDISER, GILBERTO A 720.2 SACROILIITIS NOT ELSEWHERE CLASSIFIED 03/02/2012 720.2 SACROILIITIS NOT ELSEWHERE CLASSIFIED 03/02/2012 JUDSON MERCHANDISER, GILBERTO A 720.2 SACROILIITIS NOT ELSEWHERE CLASSIFIED 03/02/2012 SILVA VALENZUELA APRN N 720.2 SACROILIITIS NOT ELSEWHERE CLASSIFIED 03/02/2012 OZZIE MERCHANDISER, MARLIN S 720.2 SACROILIITIS NOT ELSEWHERE CLASSIFIED 03/02/2012 JUDSON MERCHANDISER, GILBERTO A 720.2 SACROILIITIS NOT ELSEWHERE CLASSIFIED [...] 720.2 SACROILIITIS NOT ELSEWHERE CLASSIFIED 03/02/2012 JUDSON MERCHANDISER, GILBERTO A 720.2 SACROILIITIS NOT ELSEWHERE CLASSIFIED [...] K V72.42 Test Positive Result 07/08/2012 JUDSON MERCHANDISER, GILBERTO A V72.42 Test Positive Result 07/08/2012 OZZIE GRADY, MARLIN S V72.42 Test Positive Result 07/08/2012 JUDSONTRENT GRADY, GILBERTO A V72.42 Test Positive Result 07/08/2012 JUDSON GRADY GILBERTO A V72.42 Test Positive Result 07/08/2012 V72.42 Test Positive Result 07/08/2012 JUDSON MERCHANDISER, GILBERTO A V72.42 Test Positive Result 07/08/2012 SILVA VALENZUELA APRN N V72.42 Test Positive Result 07/08/2012 OZZIE MERCHANDISER, MARLIN S V72.42 Test Positive Result 07/08/2012 JUDSON MERCHANDISER, GILBERTO A V72.42 Test Positive Result 07/08/2012 [...] GOMEZ MD V72.42 Test Positive Result 07/08/2012 BENIETZ SKINNER APRN V72.42 Test Positive Result 07/08/2012 [...] K V22.1 , NORMAL OTHER 07/28/2012 JUDSON MERCHANDISER, GILBERTO A V22.1 , NORMAL OTHER 07/28/2012 OZZIE MERCHANDISER, MARLIN S V22.1 , NORMAL OTHER 07/28/2012 JUDSON MERCHANDISER, GILBERTO A V22.1 , NORMAL OTHER 07/28/2012 JUDSON MERCHANDISER, GILBERTO A V22.1 , NORMAL OTHER 07/28/2012 V22.1 , NORMAL OTHER 07/28/2012 JUDSON MERCHANDISER, GILBERTO A V22.1 , NORMAL OTHER 07/28/2012 SHAHID MONTESANOCOURTNEY MERCHANDISER, SILVA N V22.1 , NORMAL OTHER 07/28/2012 OZZIE MERCHANDISER, MARLIN S V22.1 , NORMAL OTHER 07/28/2012 JUDSON MERCHANDISER, GILBERTO A V22.1 , NORMAL OTHER 07/28/2012 PORRAS DO, DERICK K V22.1 , NORMAL OTHER 07/28/2012 PORRAS DO, DERICK K V22.1 , NORMAL OTHER 07/28/2012 ZAYRA GOMEZ MD V22.1 , NORMAL OTHER 07/28/2012 ZAYRA GOMEZ MD V22.1 , NORMAL OTHER 07/28/2012 OZZIE MERCHANDISER, MARLIN S V22.1 , NORMAL OTHER 07/28/2012 [...] DERICK K 784.91 Postnasal Drip 08/20/2012 JUDSON MERCHANDISER, GILBERTO A 380.4 Cerumen Impaction 08/20/2012 JUDSON MERCHANDISER, GILBERTO A 784.91 Postnasal Drip 08/20/2012 OZZIE MERCHANDISERRAMEZ DeshpandeNDA S 380.4 Cerumen Impaction 08/20/2012 RAMEZ HORNE APRNNDA S 784.91 Postnasal Drip 08/20/2012 JUDSON MERCHANDISER, GILBERTO A 380.4 Cerumen Impaction 08/20/2012 JUDSON MERCHANDISER, GILBERTO A 784.91 Postnasal Drip 08/20/2012 JUDSON MERCHANDISER, GILBERTO A 380.4 Cerumen Impaction 08/20/2012 JUDSON MERCHANDISER, GILBERTO A 784.91 Postnasal Drip 08/20/2012 380.4 Cerumen Impaction 08/20/2012 784.91 Postnasal Drip 08/20/2012 JUDSON MERCHANDISER, GILEBRTO A 380.4 Cerumen Impaction 08/20/2012 JUDSON MERCHANDISER, GILBERTO A 784.91 Postnasal Drip 08/20/2012 ZEHRA MENDOZA MERCHANDISER, SILVA N 380.4 Cerumen Impaction 08/20/2012 ZEHRA MENDOZA MERCHANDISER, SILVA N 784.91 Postnasal Drip 08/20/2012 OZZIE MERCHANDISER, MARLIN S 380.4 Cerumen Impaction 08/20/2012 OZZIE MERCHANDISER, MARLIN S 784.91 Postnasal Drip 08/20/2012 JUDSON MERCHANDISER, GILBERTO A 380.4 Cerumen Impaction 08/20/2012 JUDSON MERCHANDISER, GILBERTO A 784.91 Postnasal Drip 08/20/2012 PORRAS [...] GOMEZ MD 784.91 Postnasal Drip 08/20/2012 OZZIE MERCHANDISER, MARLIN S 380.4 Cerumen Impaction 08/20/2012 OZZIE MERCHANDISER, MARLIN S 784.91 Postnasal Drip 08/20/2012 ZAYRA [...] ALAN N 784.91 Postnasal Drip 08/20/2012 ZAYRA OGMEZ MD 380.4 Cerumen Impaction 08/20/2012 ZAYRA GOMEZ [...] DO K 784.91 Postnasal Drip 08/20/2012 MADL MERCHANDISER, JAMIA L 380.4 Cerumen Impaction 08/20/2012 MADL MERCHANDISER, JAMIA L 784.91 Postnasal Drip 08/28/2012 DERICK [...] (3 YRS AND ABOVE, IM) 08/28/2012 JUDSON MERCHANDISER, GILBERTO A V04.81 FLU DX (3 YRS AND ABOVE, IM) 08/28/2012 BRISEIDA HORNE APRNA S V04.81 FLU DX (3 YRS AND ABOVE, IM) 08/28/2012 JUDSON MERCHANDISER, GILBERTO A V04.81 FLU DX (3 YRS AND ABOVE, IM) 08/28/2012 JUDSON MERCHANDISER, GILBERTO A V04.81 FLU DX (3 YRS AND ABOVE, IM) 08/28/2012 V04.81 FLU DX (3 YRS AND ABOVE, IM) 08/28/2012 JUDSON MERCHANDISER, GILBERTO A V04.81 FLU DX (3 YRS AND ABOVE, IM) 08/28/2012 ZEHRA MENDOZA APRN, SILVA N V04.81 FLU DX (3 YRS AND ABOVE, IM) 08/28/2012 MARLIN HORNE APRN S V04.81 FLU DX (3 YRS AND ABOVE, IM) 08/28/2012 JUDSON MERCHANDISER, GILBERTO A V04.81 FLU DX (3 YRS [...] DO 465.9 Upper Respiratory Infection 10/27/2012 JUDSON MERCHANDISER, GILBERTO A 465.9 Upper Respiratory Infection 10/27/2012 OZZIE MERCHANDISER, MARLIN S 465.9 Upper Respiratory Infection 10/27/2012 JUDSON MERCHANDISER, GILBERTO A 465.9 Upper Respiratory Infection 10/27/2012 JUDSON MERCHANDISER, GILBERTO A 465.9 Upper Respiratory Infection 10/27/2012 465.9 Upper Respiratory Infection 10/27/2012 JUDSON MERCHANDISER, GILBERTO A 465.9 Upper Respiratory Infection 10/27/2012 [facility] MERCHANDISER, SILVA N 465.9 Upper Respiratory Infection 10/27/2012 OZZIE MERCHANDISER, MARLIN S 465.9 Upper Respiratory Infection 10/27/2012 JUDSON MERCHANDISER, GILBERTO A 465.9 Upper Respiratory Infection 10/27/2012 PORRAS DO, DERICK K 465.9 Upper Respiratory Infection 10/27/2012 PORRAS DO, DERICK K 465.9 Upper Respiratory Infection 10/27/2012 ZAYRA GOMEZ MD 465.9 Upper Respiratory Infection 10/27/2012 ZAYRA GOMEZ MD 465.9 Upper Respiratory Infection 10/27/2012 OZZIE MERCHANDISER, MARLIN S 465.9 Upper Respiratory Infection 10/27/2012 ZAYRA GOMEZ MD 465.9 Upper Respiratory Infection 10/27/2012 ZAYRA GOMEZ MD 465.9 Upper Respiratory Infection 10/27/2012 ZAYRA GOMEZ MD 465.9 Upper Respiratory Infection 10/27/2012 BENITEZ SKINNER APRN 465.9 Upper Respiratory Infection 10/27/2012 ZAYRA GOMEZ MD 465.9 Upper Respiratory Infection 10/27/2012 JUDSON MERCHANDISER, GILBERTO A 465.9 Upper Respiratory Infection 10/27/2012 ALAN SUAREZ MD 465.9 Upper Respiratory Infection 10/27/2012 ALAN SUAREZ MD 465.9 Upper Respiratory Infection 10/27/2012 ZAYRA GOMEZ MD 465.9 Upper Respiratory Infection 10/27/2012 ALAN SUAREZ MD 465.9 Upper Respiratory Infection 10/27/2012 JUDSON MERCHANDISER, GILBERTO A 465.9 Upper Respiratory Infection 10/27/2012 [...] 616.10 Vaginitis And Vulvovaginitis Unspecified 11/16/2012 JUDSON MERCHANDISER, GILBERTO A 616.10 Vaginitis And Vulvovaginitis Unspecified 11/16/2012 JUDSON MERCHANDISER, GILBERTO A 616.10 Vaginitis And Vulvovaginitis Unspecified 11/16/2012 616.10 Vaginitis And Vulvovaginitis Unspecified 11/16/2012 JUDSON MERCHANDISER, GILBERTO A 616.10 Vaginitis And Vulvovaginitis Unspecified 11/16/2012 SHAIHD CRISTINACOURTNEY GRADY, SILVA N 616.10 Vaginitis And Vulvovaginitis Unspecified 11/16/2012 OZZIE GRADY, MARLIN S 616.10 Vaginitis And Vulvovaginitis Unspecified 11/16/2012 JUDSONTRENT GRADY, GILBERTO A 616.10 Vaginitis And Vulvovaginitis Unspecified 11/16/2012 PORRAS [place] CHARLESA K 616.10 Vaginitis And Vulvovaginitis Unspecified 11/16/2012 PORRAS [place] CHARLESA K 616.10 Vaginitis And Vulvovaginitis Unspecified 11/16/2012 ZAYRA GOMEZ MD 616.10 Vaginitis And Vulvovaginitis Unspecified 11/16/2012 ZAYRA GOMZE MD 616.10 Vaginitis And Vulvovaginitis Unspecified 11/16/2012 [...] 616.10 Vaginitis And Vulvovaginitis Unspecified 11/16/2012 JUDSON MERCHANDISER, GILBERTO A 616.10 Vaginitis And Vulvovaginitis Unspecified [...] DO K 380.4 CERUMEN IMPACTION 11/26/2012 JUDSON MERCHANDISER, GILBERTO A 380.4 CERUMEN IMPACTION 11/26/2012 BRISEIDA HORNE APRNA S 380.4 CERUMEN IMPACTION 11/26/2012 JUDSON MERCHANDISER, GILBERTO A 380.4 CERUMEN IMPACTION 11/26/2012 JUDSON MERCHANDISER, GILBERTO A 380.4 CERUMEN IMPACTION 11/26/2012 380.4 CERUMEN IMPACTION 11/26/2012 JUDSON MERCHANDISER, GILBERTO A 380.4 CERUMEN IMPACTION 11/26/2012 SILVA VALENZUELA APRN N 380.4 CERUMEN IMPACTION 11/26/2012 BRISEIDA HORNE APRNA S 380.4 CERUMEN IMPACTION 11/26/2012 JUDSON MERCHANDISER, GILBERTO A 380.4 CERUMEN IMPACTION 11/26/2012 PORRAS [...] DERICK K V06.1 TDAP DX 12/15/2012 JUDSON MERCHANDISER, GILBERTO A V06.1 TDAP DX 12/15/2012 OZZIE MERCHANDISER, MARLIN S V06.1 TDAP DX 12/15/2012 JUDSON MERCHANDISER, GILBERTO A V06.1 TDAP DX 12/15/2012 JUDSON MERCHANDISER, GILBERTO A V06.1 TDAP DX 12/15/2012 V06.1 TDAP DX 12/15/2012 JUDSON MERCHANDISER, GILBERTO A V06.1 TDAP DX 12/15/2012 ZEHRA MENDOZA MERCHANDISER, SILVA N V06.1 TDAP DX 12/15/2012 OZZIE MERCHANDISER, MARLIN S V06.1 TDAP DX 12/15/2012 JUDSON MERCHANDISER, GILBERTO A V06.1 TDAP DX 12/15/2012 PORRAS DO, DERICK K V06.1 TDAP DX 12/15/2012 PORRAS DO, DERICK K V06.1 TDAP DX 12/15/2012 JASON FINNEY, ZAYRA Shea V06.1 TDAP DX 12/15/2012 JASON FINNEY, ZAYRA Shae V06.1 TDAP DX 12/15/2012 OZZIE MERCHANDISER, MARLIN S V06.1 TDAP DX 12/15/2012 JASON FINNEY, ZAYRA Shea V06.1 TDAP DX 12/15/2012 ZAYRA GOMEZ MD V06.1 TDAP DX 12/15/2012 JASON FINNEY, ZAYRA Shea V06.1 TDAP DX 12/15/2012 BENITEZ SKINNER APRN V06.1 TDAP DX 12/15/2012 JASON FINNEY, ZAYRA Shea V06.1 TDAP DX 12/15/2012 JUDSON MERCHANDISER, GILBERTO A V06.1 TDAP DX 12/15/2012 DANIELA [...] GBS SCREENING 02/04/2013 V28.6 GBS SCREENING 02/04/2013 GILBERTO ROPER APRN [...] SILVA VALENZUELA APRN 564.00 CONSTIPATION 03/04/2013 BRISEIDA HORNE APRNA S 564.00 CONSTIPATION 03/04/2013 OSIEL ROPER [...] FINNEY, ALAN N 564.00 CONSTIPATION 03/04/2013 JUDSON MERCHANDISER, GILBERTO A 564.00 CONSTIPATION 03/04/2013 PORRAS DO, [...] APRN S 380.10 OTITIS EXTERNA RIGHT 03/26/2013 JASON FINNEY, ZAYRA Shea 380.10 OTITIS EXTERNA RIGHT 03/26/2013 ZAYRA GOMEZ MD 380.10 OTITIS EXTERNA RIGHT 03/26/2013 ZAYRA GOMEZ MD 380.10 OTITIS EXTERNA RIGHT 03/26/2013 SUSANNE GRADY BENITEZ D 380.10 OTITIS EXTERNA RIGHT 03/26/2013 ZAYRA GOMEZ MD 380.10 OTITIS EXTERNA RIGHT 03/26/2013 GLIBERTO ROPER APRN A 380.10 OTITIS EXTERNA RIGHT [...] V25.09 CONTRACEPTIVE COUNSELING - GENERAL 04/09/2013 MADL MERCHANDISER, JAMIA L V76.2 CERVICAL CANCER SCREENING (PAP SMEAR) 08/12/2013 DERICK PORRAS DO K 786.09 DYSPNEA 08/12/2013 JUDSON MERCHANDISER, GILBERTO A 786.09 DYSPNEA 08/12/2013 OZZIE GRADY MARLIN S 786.09 DYSPNEA 08/12/2013 JUDSON MERCHANDISER, GILBERTO A 786.09 DYSPNEA 08/12/2013 JUDSON MERCHANDISER, GILBERTO A 786.09 DYSPNEA 08/12/2013 786.09 DYSPNEA 08/12/2013 JUDSON HERNÁNDEZN, GILBERTO A 786.09 DYSPNEA 08/12/2013 SILVA VALENZUELA APRN N 786.09 DYSPNEA 08/12/2013 OZZIE GRADY, MARLIN S 786.09 DYSPNEA 08/12/2013 JUDSON MERCHANDISER, GILBERTO A 786.09 DYSPNEA 08/12/2013 DERICK PORRAS [...] ZAYRA GOMEZ MD 625.3 DYSMENORRHEA 08/23/2013 JUDSON MERCHANDISER, GILBERTO A 625.3 DYSMENORRHEA 08/23/2013 DANIELA FINNEY, [...] AND VULVOVAGINITIS UNSPECIFIED 12/27/2013 ZEHRA MENDOZA APRN, SILVA N 616.10 VAGINITIS AND VULVOVAGINITIS UNSPECIFIED [...] APRN V72.42 TEST POSITIVE RESULT 01/11/2014 JUDSON MERCHANDISER, GILBERTO A V22.2 INCIDENTAL 01/11/2014 JUDSONTRENT GRADY, [...] MD V72.42 TEST POSITIVE RESULT 01/11/2014 OZZIE MERCHANDISER, MARLIN S V22.2 INCIDENTAL 01/11/2014 OZZIE MERCHANDISER, MARLIN S V72.42 TEST POSITIVE RESULT 01/11/2014 [...] K V72.42 TEST POSITIVE RESULT 01/11/2014 MADClaudia MERCHANDISER, JAMIA L V22.2 INCIDENTAL 01/11/2014 MADL YSABEL, [...] 728.71 PLANTAR FASCIAL FIBROMATOSIS 03/01/2014 PORRAS DO DREICK K 729.5 PAIN IN LIMB 03/01/2014 PORRAS [...] APRNIDI A 354.0 CARPAL TUNNEL SYNDROME 03/03/2014 PRORAS HOSEA CHARLESA K 354.0 CARPAL TUNNEL SYNDROME [...] DO DERICK K V74.5 STD SCREEN 03/17/2014 HOSEA PORRAS [...] MULTIPLE AND UNSPECIFIED SITES WITHOUT INFECTION 06/23/2014 DAINELA FINNEY, ALAN N 919.4 INSECT BITE NONVENOMOUS [...] GOMEZ MD V06.1 TDAP DX 06/29/2014 JUDSON MERCHANDISER, GILBERTO A 719.47 PAIN- ANKLE 06/29/2014 JUDSON MERCHANDISER, GILBERTO A V04.81 FLU SHOT 06/29/2014 JUDSON MERCHANDISER, GILBERTO A V06.1 TDAP DX 06/29/2014 ALAN [...] SUAREZ MD V06.1 TDAP DX 06/29/2014 JUDSON MERCHANDISER, GILBERTO A 719.47 PAIN- ANKLE 06/29/2014 JUDSON MERCHANDISER, GILBERTO A V04.81 FLU SHOT 06/29/2014 JUDSON MERCHANDISER, GILBERTO A V06.1 TDAP DX 06/29/2014 PORRAS DO, DERICK K 719.47 PAIN- ANKLE 06/29/2014 PORRAS DO, DERICK K V04.81 FLU SHOT 06/29/2014 PORRAS DO, DERICK K V06.1 TDAP DX 06/29/2014 PORRAS DO, DERICK K 719.47 PAIN- ANKLE 06/29/2014 PORRAS DO, EDRICK K V04.81 FLU SHOT 06/29/2014 PORRAS DO, DERICK K V06.1 TDAP DX 06/29/2014 OTILIA MERCHANDISERJAMIA Deshpande 719.47 PAIN- ANKLE 06/29/2014 GILDARDO BINGHAM APRNA L V04.81 FLU SHOT 06/29/2014 JAMIA BINGHAM APRN L V06.1 TDAP DX 07/09/2014 ZAYRA GOMEZ MD Ot 646.83 07/09/2014 ZAYRA GOMEZ MD Ot 787.91 08/09/2014 BENITEZ SKINNER BLUING OVEN TENDER Ot 718.87 08/09/2014 BENITEZ SKINNER BLUING OVEN TENDER Ot V57.1 08/14/2014 ZAYRA GOMEZ MD Ot [...] APRN 623.5 LEUKORRHEA NOT SPECIFIED INFECTIVE 08/15/2014 EDRICK PORRAS DO 623.5 LEUKORRHEA NOT SPECIFIED INFECTIVE 08/15/2014 DERICK PORRSA DO 623.5 LEUKORRHEA NOT SPECIFIED INFECTIVE 08/15/2014 OTILIA GILDARDO GRADYA L 623.5 LEUKORRHEA NOT SPECIFIED INFECTIVE 08/24/2014 ALAN SUAREZ MD N 242.90 HYPERTHYROIDISM 08/24/2014 ALAN SUAREZ MD N 242.90 HYPERTHYROIDISM 08/24/2014 ZAYRA GOMEZ MD 242.90 HYPERTHYROIDISM 08/24/2014 ALAN SUAREZ MD N 242.90 HYPERTHYROIDISM 08/24/2014 GILBERTO ROPER APRN 242.90 HYPERTHYROIDISM 08/24/2014 DERICK PORRAS DO 242.90 HYPERTHYROIDISM 08/24/2014 DERICK PORRAS DO 242.90 HYPERTHYROIDISM 08/24/2014 MADL MERCHANDISER, JAMIA L 242.90 HYPERTHYROIDISM 09/10/2014 YOLANDE FINNEY, ADAM Finley Ot 654.21 09/10/2014 YOLANDE FINNEY, ADAM Finley Ot V27.0 09/12/2014 NATHALIE FINNEY, EMILY Ayoub Ot 729.5 09/12/2014 NATHALIE FINNEY, EMILY Ayoub Ot 782.3 09/18/2014 STUART FINNEY, ZARINA Chapa Ot 564.00 09/18/2014 STUART FINNEY, ZARINA Chapa Ot 646.84 09/18/2014 STUART FINNEY, ZARINA Chapa Ot 789.00 10/20/2014 JUDSON MERCHANDISER, GILBERTO A V24.2 F/U, ROUTINE 10/20/2014 JUDSON GRADY, GILBERTO A V25.9 CONTRACEPTION MANAGEMENT 10/20/2014 PORRAS DO DERICK K V24.2 F/U, ROUTINE 10/20/2014 PORRAS DO DERICK K V25.9 CONTRACEPTION MANAGEMENT 10/20/2014 PORRAS DO DERICK K V24.2 F/U, ROUTINE 10/20/2014 PORRAS DO, DERICK K V25.9 CONTRACEPTION MANAGEMENT 10/20/2014 MADL MERCHANDISER, JAMIA L V24.2 F/U, ROUTINE 10/20/2014 MADL MERCHANDISER, JAMIA L V25.9 CONTRACEPTION MANAGEMENT 11/12/2014 Ot 626.8 12/05/2014 PORRAS DO DERICK K 008.8 INTESTINAL INFECTION DUE TO OTHER ORGANISM NOT ELSEWHERE CLASSIFIED 12/05/2014 PORRAS DO DERICK K 787.91 DIARRHEA 12/05/2014 PORRAS DO DERICK K 008.8 INTESTINAL INFECTION DUE TO OTHER ORGANISM NOT ELSEWHERE CLASSIFIED 12/05/2014 PORRAS DO, DERICK K 787.91 DIARRHEA 12/05/2014 MADL MERCHANDISER, JAMIA L 008.8 INTESTINAL INFECTION DUE TO OTHER ORGANISM NOT ELSEWHERE CLASSIFIED 12/05/2014 MADL MERCHANDISER, JAMIA L 787.91 DIARRHEA 12/07/2014 Ot 599.0 [...] V65.42 COUNSELING - SMOKING CESSATION 12/29/2014 MADL MERCHANDISER, JAMIA L 461.9 SINUSITIS ACUTE 12/29/2014 MADL MERCHANDISER, JAMIA L 466.0 BRONCHITIS, ACUTE 12/29/2014 MADL MERCHANDISER, JAMIA L V65.42 COUNSELING - SMOKING CESSATION 01/14/2015 MADL MERCHANDISER, JAMIA L 599.0 URINARY TRACT INFECTION 03/13/2015 STUART FINNEY, ZARINA Chapa Ot 530.81 03/13/2015 STUART FINNEY, ZARINA Chapa Ot 786.50 03/13/2015 Ot V28.81 03/13/2015 Ot V22.1 03/13/2015 Ot V22.1 03/13/2015 Ot V28.89 03/13/2015 YOLANDE FINNEY, ADAM Finley Ot 789.01 03/13/2015 GILBERTO ROPER MERCHANDISER Ot V28.81 03/13/2015 JASON FINNEY, ZAYRA Shea Ot 654.23 03/13/2015 ZAYRA GOMEZ MD Ot V28.81 03/13/2015 YOLANDE FINNEY, ADAM Finley Ot 285.9 03/13/2015 YOLANDE FINNEY, ADAM Finley Ot 648.23 03/13/2015 ADAM BOLES MD Ot 654.23 03/13/2015 ADAM BOLES MD Ot V72.84 03/20/2015 Ot V28.81 03/20/2015 Ot V22.1 03/20/2015 Ot V22.1 03/20/2015 Ot V28.89 03/20/2015 YOLANDE FINNEY, ADAM Finley Ot 789.01 03/20/2015 GILBERTO ROPER MERCHANDISER Ot V28.81 03/20/2015 ZAYRA GOMEZ MD Ot [...] ADAM Finley Ot V72.84 06/13/2015 EMI GONZALEZ MERCHANDISER Ot 380.10 06/13/2015 EMI GONZALEZ MERCHANDISER Ot 388.70 07/03/2015 EMI GONZALEZ MERCHANDISER Ot R19.7 07/03/2015 Ot V28.81 07/03/2015 Ot [...] 11/29/2015 Ot V28.89 11/29/2015 YOLANDE FINNEY, ADAM Malai Ot 789.01 11/29/2015 JUDSON GILBERTOBRINDA Abbasi APRN [...] OTH DISEASES AND CONDITIONS COMPL PREG/C 02/05/2017 ZAIRNA DAVIDSON MD Ot Z3A.17 17 WEEKS GESTATION OF 02/05/2017 ZARINA DAVIDSON MD Ot Z87.891 PERSONAL HISTORY OF NICOTINE DEPENDENCE 02/06/2017 ZARINA DAVIDSON MD Ot M54.5 LOW BACK PAIN 02/06/2017 ZARINA DAVIDSON MD Ot O99.89 OTH DISEASES AND CONDITIONS COMPL PREG/C 02/06/2017 ZARINA DAVIDSON MD Ot Z3A.17 17 WEEKS GESTATION OF 02/06/2017 ZARINA DAVIDSON MD Ot Z87.891 PERSONAL HISTORY OF NICOTINE DEPENDENCE 02/11/2017 ZARINA DAVIDSON MD Ot M54.5 LOW BACK PAIN 02/11/2017 [...] Ot R10.2 PELVIC AND PERINEAL PAIN 04/01/2017 ZAYRA GOMEZ MD, Ot Z3A.23 23 WEEKS GESTATION [...] SCREENING OF MOT 04/13/2017 HOSEA PORRAS DOA Saran Ot M25.551 PAIN IN RIGHT HIP 04/13/2017 [...] MATERNAL CARE FOR UNSP TYPE SCAR FROM MD 06/25/2017 ADAM BOLES MD, Ot Z01.818 ENCOUNTER FOR OTHER PREPROCEDURAL EXAMIN 06/25/2017 ADAM BOLES MD, Ot Z3A.00 WEEKS OF GESTATION OF NOT SPEC 06/26/2017 ADAM BOLES MD, Ot O34.219 MATERNAL CARE FOR UNSP TYPE SCAR FROM MD 06/26/2017 ADAM BOLES MD, Ot Z01.818 ENCOUNTER [...] Ot Z87.891 PERSONAL HISTORY OF NICOTINE DEPENDENCE 12/01/2017 VERONA BAILEY Ot F32.9 MAJOR DEPRESSIVE DISORDER, SINGLE EPISOD 12/01/2017 VERONA BAILEY Ot J45.909 UNSPECIFIED ASTHMA, UNCOMPLICATED 12/01/2017 VERONA BAILEY Ot K21.9 GASTRO-ESOPHAGEAL REFLUX DISEASE WITHOUT 12/01/2017 VERONA BAILEY Ot O21.9 VOMITING OF , UNSPECIFIED 12/01/2017 VERONA BAILEY Ot O99.341 OTH MENTAL DISORDERS COMPLICATING PREGNA 12/01/2017 VERONA BAILEY Ot O99.511 DISEASES OF THE RESP SYS COMP , 12/01/2017 VERONA BAILEY Ot O99.611 DISEASES OF THE DGSTV SYS COMP 12/01/2017 VERONA BAILEY Ot R19.7 DIARRHEA, UNSPECIFIED 12/01/2017 VERONA BAILEY Ot Z3A.00 WEEKS OF GESTATION OF NOT SPEC 12/01/2017 VERONA BAILEY Ot Z79.51 USP (CURRENT) USE OF INHALED STERO 12/01/2017 VERONA BAILEY Ot Z82.49 FAMILY HX OF ISCHEM HEART DIS AND OTH DI 12/01/2017 VEROAN BAILEY Ot Z87.59 PERSONAL HISTORY OF COMP OF PREG, CHLDBR 12/01/2017 VERONA BAILEY Ot Z87.891 PERSONAL HISTORY OF NICOTINE DEPENDENCE 12/01/2017 VERONA BAILEY Ot Z88.3 ALLERGY STATUS TO OTHER ANTI-INFECTIVE A 12/02/2017 ZAYRA GOMEZ MD, Ot Z34.91 ENCNTR FOR SUPRVSN OF NORMAL PREG, UNSP, 12/02/2017 ZAYRA GOMEZ MD, Ot Z36 ENCOUNTER FOR SCREENING OF MOT 12/02/2017 ZAYRA GOMEZ MD, Ot Z3A.16 16 WEEKS GESTATION OF 12/02/2017 ZAYRA GOMEZ MD, Ot Z34.92 ENCNTR FOR SUPRVSN OF NORMAL PREG, UNSP, 12/02/2017 ZAYRA GOMEZ MD, Ot Z36 ENCOUNTER FOR SCREENING OF MOT 12/03/2017 VERONA BAILEY Ot F32.9 MAJOR DEPRESSIVE DISORDER, SINGLE EPISOD 12/03/2017 VERONA BAILEY Ot J45.909 UNSPECIFIED ASTHMA, UNCOMPLICATED 12/03/2017 VERONA BAILEY Ot K21.9 GASTRO-ESOPHAGEAL REFLUX DISEASE WITHOUT 12/03/2017 VERONA BAILEY Ot O21.9 VOMITING OF , UNSPECIFIED 12/03/2017 VERONA BAILEY Ot O99.341 OTH MENTAL DISORDERS COMPLICATING PREGNA 12/03/2017 VERONA BAILEY Ot O99.511 DISEASES OF THE RESP SYS COMP , 12/03/2017 VERONA BAILEY Ot O99.611 DISEASES OF THE DGSTV SYS COMP 12/03/2017 VERONA BAILEY Ot R19.7 DIARRHEA, UNSPECIFIED 12/03/2017 VERONA BAILEY Ot Z3A.00 WEEKS OF GESTATION OF NOT SPEC 12/03/2017 VERONA BAILEY Ot Z79.51 USP (CURRENT) USE OF INHALED STERO 12/03/2017 VERONA BAILEY Ot Z82.49 FAMILY HX OF ISCHEM HEART DIS AND OTH DI 12/03/2017 VERONA BAILEY Ot Z87.59 PERSONAL HISTORY OF COMP OF PREG, CHLDBR 12/03/2017 VERONA BAILEY Ot Z87.891 PERSONAL HISTORY OF NICOTINE DEPENDENCE 12/03/2017 VERONA BAILEY Ot Z88.3 ALLERGY STATUS TO OTHER ANTI-INFECTIVE A 12/16/2017 JAVIER GUILLEN MD Ot F32.9 MAJOR DEPRESSIVE DISORDER, SINGLE EPISOD 12/16/2017 JAVIER GUILLEN MD Ot G43.909 MIGRAINE, UNSP, NOT INTRACTABLE, WITHOUT 12/16/2017 JAVIER GUILLEN MD Ot J45.909 UNSPECIFIED ASTHMA, UNCOMPLICATED 12/16/2017 JAVIER GUILLEN MD Ot K21.9 GASTRO-ESOPHAGEAL REFLUX DISEASE WITHOUT 12/16/2017 JAVIER GUILLEN MD Ot O21.9 VOMITING OF , UNSPECIFIED 12/16/2017 JAVIER GUILLEN MD Ot O26.891 OTH RELATED CONDITIONS, FIRST 12/16/2017 JAVIER GUILLEN MD Ot O99.341 OTH MENTAL DISORDERS COMPLICATING PREGNA 12/16/2017 JAVIER GUILLEN MD Ot O99.351 DISEASES OF THE NERVOUS SYS COMP PREGNAN 12/16/2017 JAVIER GUILLEN MD Ot O99.511 DISEASES OF THE RESP SYS COMP , 12/16/2017 JAVIER GUILLEN MD Ot O99.611 DISEASES OF THE DGSTV SYS COMP 12/16/2017 JAVIER GUILLEN MD Ot Z3A.01 LESS THAN 8 WEEKS GESTATION OF 12/16/2017 JAVIER GUILLEN MD Ot 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 12/16/2017 JAVIER GUILLEN MD Ot Z82.49 FAMILY HX OF ISCHEM HEART DIS AND OTH DI 12/16/2017 JAVIER GUILLEN MD Ot Z87.59 PERSONAL HISTORY OF COMP OF PREG, CHLDBR 12/16/2017 JAVIER GUILLEN MD Ot Z87.891 PERSONAL HISTORY OF NICOTINE DEPENDENCE 12/16/2017 JAVIER GUILLEN MD Ot Z88.8 ALLERGY STATUS TO OT DRUG/MEDS/BIOL SUB 12/16/2017 JAVIER GUILLEN MD Ot Z91.030 BEE ALLERGY STATUS 12/16/2017 ZAYRA GOMEZ MD Ot Z34.91 ENCNTR FOR SUPRVSN OF NORMAL PREG, UNSP, 12/16/2017 ZAYRA GOMEZ MD Ot Z36 ENCOUNTER FOR SCREENING OF MOT 12/16/2017 ZAYRA GOMEZ MD, Ot Z3A.16 16 WEEKS GESTATION OF 12/16/2017 ZAYRA GOMEZ MD Ot Z34.92 ENCNTR FOR SUPRVSN OF NORMAL PREG, UNSP, 12/16/2017 ZAYRA GOMEZ MD Ot Z36 ENCOUNTER FOR SCREENING OF MOT 12/18/2017 JAVIER GUILLEN MD Ot F32.9 MAJOR DEPRESSIVE DISORDER, SINGLE EPISOD 12/18/2017 JAVIER GUILLEN MD Ot G43.909 MIGRAINE, UNSP, NOT INTRACTABLE, WITHOUT 12/18/2017 JAVIER GUILLEN MD Ot J45.909 UNSPECIFIED ASTHMA, UNCOMPLICATED 12/18/2017 JAVIER GUILLEN MD Ot K21.9 GASTRO-ESOPHAGEAL REFLUX DISEASE WITHOUT 12/18/2017 JAVIER GUILLEN MD Ot O21.9 VOMITING OF , UNSPECIFIED 12/18/2017 JAVIER GUILLEN MD Ot O26.891 OTH RELATED CONDITIONS, FIRST 12/18/2017 JAVIER GUILLEN MD Ot O99.341 OTH MENTAL DISORDERS COMPLICATING PREGNA 12/18/2017 JAVIER GUILLEN MD Ot O99.351 DISEASES OF THE NERVOUS SYS COMP PREGNAN 12/18/2017 JAVIER GUILLEN MD Ot O99.511 DISEASES OF THE RESP SYS COMP , 12/18/2017 JAVIER GUILLEN MD Ot O99.611 DISEASES OF THE DGSTV SYS COMP 12/18/2017 JAVIER GUILLEN MD Ot Z3A.01 LESS THAN 8 WEEKS GESTATION OF 12/18/2017 JAVIER GUILLEN MD Ot 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 12/18/2017 JAVIER GUILLEN MD Ot Z82.49 FAMILY HX OF ISCHEM HEART DIS AND OTH DI 12/18/2017 JAVIER GUILLEN MD Ot Z87.59 PERSONAL HISTORY OF COMP OF PREG, CHLDBR 12/18/2017 JAVIER GUILLEN MD Ot Z87.891 PERSONAL HISTORY OF NICOTINE DEPENDENCE 12/18/2017 MINDY FINNEY, JAVIER Shea Ot Z88.8 ALLERGY STATUS TO OTH DRUG/MEDS/BIOL SUB 12/18/2017 JAVIER GUILLEN MD Ot Z91.030 BEE ALLERGY STATUS 02/05/2018 ZAYRA GOMEZ MD Ot Z34.91 ENCNTR FOR SUPRVSN OF NORMAL PREG, UNSP, 02/05/2018 ZAYRA GOMEZ MD Ot Z36 ENCOUNTER FOR SCREENING OF MOT 02/05/2018 ZAYRA GOMEZ MD, Ot Z3A.16 16 WEEKS GESTATION OF 02/05/2018 ZAYRA GOMEZ MD Ot Z34.92 ENCNTR FOR SUPRVSN OF NORMAL PREG, UNSP, 02/05/2018 ZAYRA GOMEZ MD Ot Z36 ENCOUNTER FOR SCREENING OF MOT 02/05/2018 PRINCE CALDERON DO Ot F32.9 MAJOR DEPRESSIVE DISORDER, SINGLE EPISOD 02/05/2018 PRINCE CALDERON DO Ot J45.909 UNSPECIFIED ASTHMA, UNCOMPLICATED 02/05/2018 PRINCE CALDERON DO Ot K21.9 GASTRO-ESOPHAGEAL REFLUX DISEASE WITHOUT 02/05/2018 PRINCE CALDERON DO Ot M79.662 PAIN IN LEFT LOWER LEG 02/05/2018 PRINCE CALDERON DO Ot O99.342 OTH MENTAL DISORDERS COMP , SEC 02/05/2018 PRINCE CALDERON DO Ot O99.512 DISEASES OF THE RESP SYS COMP , 02/05/2018 PRINCE CALDERON DO Ot O99.612 DISEASES OF THE DGSTV SYS COMP 02/05/2018 PRINCE CALDERON DO Ot O99.89 OTH DISEASES AND CONDITIONS COMPL PREG/C 02/05/2018 PRINCE CALDERON DO Ot Z3A.14 14 WEEKS GESTATION OF 02/05/2018 PRINCE CALDERON DO Ot Z79.51 USP (CURRENT) USE OF INHALED STERO 02/05/2018 PRINCE CALDERON DO Ot 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 02/05/2018 PRINCE CALDERON DO Ot Z82.49 FAMILY HX OF ISCHEM HEART DIS AND OTH DI 02/05/2018 PRINCE CALDERON DO Ot Z87.59 PERSONAL HISTORY OF COMP OF PREG, CHLDBR 02/05/2018 PRINCE CALDERON DO Ot Z87.891 PERSONAL HISTORY OF NICOTINE DEPENDENCE 02/09/2018 PRINCE CALDERON DO Ot F32.9 MAJOR DEPRESSIVE DISORDER, SINGLE EPISOD 02/09/2018 PRINCE CALDERON DO Ot J45.909 UNSPECIFIED ASTHMA, UNCOMPLICATED 02/09/2018 PRINCE CALDERON DO Ot K21.9 GASTRO-ESOPHAGEAL REFLUX DISEASE WITHOUT 02/09/2018 PRINCE CALDERON DO Ot M79.662 PAIN IN LEFT LOWER LEG 02/09/2018 PRINCE CALDERON DO Ot O99.342 OTH MENTAL DISORDERS COMP , SEC 02/09/2018 PRINCE CALDERON DO Ot O99.512 DISEASES OF THE RESP SYS COMP , 02/09/2018 PRINCE CALDERON DO Ot O99.612 DISEASES OF THE DGSTV SYS COMP 02/09/2018 PRINCE CALDERON DO Ot O99.89 OTH DISEASES AND CONDITIONS COMPL PREG/C 02/09/2018 PRINCE CALDERON DO Ot Z3A.14 14 WEEKS GESTATION OF 02/09/2018 PRINCE CALDERON DO Ot 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 02/09/2018 PRINCE CALDERON DO Ot 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 02/09/2018 PRINCE CALDERON DO Ot Z82.49 FAMILY HX OF ISCHEM HEART DIS AND OTH DI 02/09/2018 PRINCE CALDERON DO Ot Z87.59 PERSONAL HISTORY OF COMP OF PREG, CHLDBR 02/09/2018 PRINCE CALDERON DO Ot Z87.891 PERSONAL HISTORY OF NICOTINE DEPENDENCE 02/11/2018 PRINCE CALDERON DO Ot F32.9 MAJOR DEPRESSIVE DISORDER, SINGLE EPISOD 02/11/2018 PRINCE CALDERON DO Ot J45.909 UNSPECIFIED ASTHMA, UNCOMPLICATED 02/11/2018 PRINCE CALDERON DO Ot K21.9 GASTRO-ESOPHAGEAL REFLUX DISEASE WITHOUT 02/11/2018 PRINCE CALDERON DO Ot M79.662 PAIN IN LEFT LOWER LEG 02/11/2018 PRINCE CALDERON DO Ot O99.342 OTH MENTAL DISORDERS COMP , SEC 02/11/2018 YUMIKO CHARLES PRINCE Saran Ot O99.512 DISEASES OF THE RESP SYS COMP , 02/11/2018 YUMIKO CHARLES PRINCE Saran Ot O99.612 DISEASES OF THE DGSTV SYS COMP 02/11/2018 YUMIKO CHARLES PRINCE Saran Ot O99.89 OTH DISEASES AND CONDITIONS COMPL PREG/C 02/11/2018 PRINCE CALDERON DO Ot Z3A.14 14 WEEKS GESTATION OF 02/11/2018 PRINCE CALDERON DO Ot 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 02/11/2018 PRINCE CALDERON DO Ot 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 02/11/2018 PRINCE CALDERON DO Ot Z82.49 FAMILY HX OF ISCHEM HEART DIS AND OTH DI 02/11/2018 PRINCE CALDERON DO Ot Z87.59 PERSONAL HISTORY OF COMP OF PREG, CHLDBR 02/11/2018 YUMIKO PRINCE CHARLES Ot Z87.891 PERSONAL HISTORY OF NICOTINE DEPENDENCE 02/13/2018 EMI GONZALEZ APRN Ot B34.9 VIRAL INFECTION, UNSPECIFIED 02/13/2018 EMI GONZALEZ APRN Ot F32.9 MAJOR DEPRESSIVE DISORDER, SINGLE EPISOD 02/13/2018 EMI GONZALEZ APRN Ot J45.909 UNSPECIFIED ASTHMA, UNCOMPLICATED 02/13/2018 EMI GONZALEZ APRN Ot K21.9 GASTRO-ESOPHAGEAL REFLUX DISEASE WITHOUT 02/13/2018 EMI GONZALEZ APRN Ot N39.0 URINARY TRACT INFECTION, SITE NOT SPECIF 02/13/2018 EMI GONZALEZ APRN Ot R09.81 NASAL CONGESTION 02/13/2018 EMI GONZALEZ APRN Ot R19.7 DIARRHEA, UNSPECIFIED 02/13/2018 EMI GONZALEZ APRN Ot T63.461A TOXIC EFFECT OF VENOM OF WASPS, ACCIDENT 02/13/2018 EMI GONZALEZ APRN Ot Z79.51 USP (CURRENT) USE OF INHALED STERO 02/13/2018 EMI GONZALEZ APRN Ot Z79.52 USP (CURRENT) USE OF SYSTEMIC STER 02/13/2018 EMI GONZALEZ APRN Ot Z82.49 FAMILY HX OF ISCHEM HEART DIS AND OTH DI 02/13/2018 EMI GONZALEZ APRN Ot Z87.59 PERSONAL HISTORY OF COMP OF PREG, CHLDBR 02/13/2018 EMI GONZALEZ APRN Ot Z87.891 PERSONAL HISTORY OF NICOTINE DEPENDENCE 02/13/2018 EMI GONZALEZ APRN Ot Z88.8 ALLERGY STATUS TO OTH DRUG/MEDS/BIOL SUB 02/16/2018 EMI GONZALEZ APRN Ot B34.9 VIRAL INFECTION, UNSPECIFIED 02/16/2018 EMI GONZALEZ APRN Ot F32.9 MAJOR DEPRESSIVE DISORDER, SINGLE EPISOD 02/16/2018 EMI GONZALEZ APRN Ot J45.909 UNSPECIFIED ASTHMA, UNCOMPLICATED 02/16/2018 EMI GONZALEZ APRN Ot K21.9 GASTRO-ESOPHAGEAL REFLUX DISEASE WITHOUT 02/16/2018 EMI GONZALEZ APRN Ot N39.0 URINARY TRACT INFECTION, SITE NOT SPECIF 02/16/2018 EMI GONZALEZ APRN Ot R09.81 NASAL CONGESTION 02/16/2018 EMI GONZALEZ APRN Ot R19.7 DIARRHEA, UNSPECIFIED 02/16/2018 EMI GONZALEZ APRN Ot T63.461A TOXIC EFFECT OF VENOM OF WASPS, ACCIDENT 02/16/2018 EMI GONZALEZ APRN Ot Z79.51 USP (CURRENT) USE OF INHALED STERO 02/16/2018 EMI GONZALEZ APRN Ot Z79.52 USP (CURRENT) USE OF SYSTEMIC STER 02/16/2018 EMI GONZALEZ APRN Ot Z82.49 FAMILY HX OF ISCHEM HEART DIS AND OTH DI 02/16/2018 EMI GONZALEZ APRN Ot Z87.59 PERSONAL HISTORY OF COMP OF PREG, CHLDBR 02/16/2018 EMI GONZALEZ APRN Ot Z87.891 PERSONAL HISTORY OF NICOTINE DEPENDENCE 02/16/2018 EMI GONZALEZ APRN Ot Z88.8 ALLERGY STATUS TO OTH DRUG/MEDS/BIOL SUB 02/19/2018 ZAYRA GOMEZ MD, Ot Z34.92 ENCNTR FOR SUPRVSN OF NORMAL PREG, UNSP, 02/19/2018 ZAYRA GOMEZ MD, Ot Z3A.17 17 WEEKS GESTATION OF 02/25/2018 ZAYRA GOMEZ MD, Ot Z34.91 ENCNTR FOR SUPRVSN OF NORMAL PREG, UNSP, 02/25/2018 ZAYRA GOMEZ MD, Ot Z36 ENCOUNTER FOR SCREENING OF MOT 02/25/2018 ZAYRA GOMEZ MD, Ot Z3A.16 16 WEEKS GESTATION OF 02/25/2018 ZAYRA GOMEZ MD, Ot Z34.92 ENCNTR FOR SUPRVSN OF NORMAL PREG, UNSP, 02/25/2018 ZAYRA GOMEZ MD, Ot Z36 ENCOUNTER FOR SCREENING OF MOT 02/25/2018 ZAYRA GOMEZ MD, Ot Z34.92 ENCNTR FOR SUPRVSN OF NORMAL PREG, UNSP, 02/25/2018 ZAYRA GOMEZ MD, Ot Z3A.17 17 WEEKS GESTATION OF 03/06/2018 ZAYRA GOMEZ MD, Ot Z34.92 ENCNTR FOR SUPRVSN OF NORMAL PREG, UNSP, 03/06/2018 ZAYRA GOMEZ MD, Ot Z3A.17 17 WEEKS GESTATION OF 03/09/2018 ZAYRA GOMEZ MD, Ot O99.89 OT DISEASES AND CONDITIONS COMPL PREG/C 03/09/2018 ZAYRA GOMEZ MD, Ot R10.2 PELVIC AND PERINEAL PAIN 03/09/2018 ZAYRA GOMEZ MD, Ot Z3A.20 20 WEEKS GESTATION OF 03/31/2018 ZAYRA GOMEZ MD, Ot F32.9 MAJOR DEPRESSIVE DISORDER, SINGLE EPISOD 03/31/2018 ZAYRA GOMEZ MD, Ot F41.9 ANXIETY DISORDER, UNSPECIFIED 03/31/2018 ZAYRA GOMEZ MD, Ot O99.342 OTH MENTAL DISORDERS COMP , SEC 03/31/2018 ZAYRA GOMEZ MD, Ot O9A.212 INJ/POISN/OTH CONSEQ OF EXTRN CAUSES COM 03/31/2018 ZAYRA GOMEZ MD, Ot T43.222A POISN BY SLCTV SEROTONIN REUPTAKE INHIBT 03/31/2018 ZAYRA GOMEZ MD, Ot T45.0X2A POISONING BY ANTIALLERG/ANTIEMETIC, SELF 03/31/2018 ZAYRA GOMEZ MD, Ot Z3A.23 23 WEEKS GESTATION OF 03/31/2018 ZAYRA GOEMZ MD, Ot F32.9 MAJOR DEPRESSIVE DISORDER, SINGLE EPISOD 03/31/2018 ZAYRA GOMEZ MD, Ot F41.9 ANXIETY DISORDER, UNSPECIFIED 03/31/2018 ZAYRA GOMEZ MD, Ot O99.342 OTH MENTAL DISORDERS COMP , SEC 03/31/2018 ZAYRA GOMEZ MD, Ot O9A.212 INJ/POISN/OTH CONSEQ OF EXTRN CAUSES COM 03/31/2018 ZAYRA GOMEZ MD, Ot T43.222A POISN BY SLCTV SEROTONIN REUPTAKE INHIBT 03/31/2018 ZAYRA GOMEZ MD, Ot T45.0X2A POISONING BY ANTIALLERG/ANTIEMETIC, SELF 03/31/2018 ZAYRA GOMEZ MD, Ot Z3A.23 23 WEEKS GESTATION OF 04/09/2018 ZAYRA GOMEZ MD, Ot Z34.91 ENCNTR FOR SUPRVSN OF NORMAL PREG, UNSP, 04/09/2018 ZAYRA GOMEZ MD, Ot Z36 ENCOUNTER FOR SCREENING OF MOT 04/09/2018 ZAYRA GOMEZ MD, Ot Z3A.16 16 WEEKS GESTATION OF 04/09/2018 ZAYRA GOMEZ MD, Ot Z34.92 ENCNTR FOR SUPRVSN OF NORMAL PREG, UNSP, 04/09/2018 ZAYRA GOMEZ MD, Ot Z36 ENCOUNTER FOR SCREENING OF MOT 04/09/2018 ZAYRA GOMEZ MD, Ot Z34.92 ENCNTR FOR SUPRVSN OF NORMAL PREG, UNSP, 04/09/2018 ZYARA GOMEZ MD, Ot Z3A.17 17 WEEKS GESTATION OF 04/10/2018 ZAYRA GOMEZ MD, Ot Z36.89 ENCOUNTER FOR OTHER SPECIFIED 04/10/2018 ZAYRA GOMEZ MD, Ot Z3A.24 24 WEEKS GESTATION OF 12/06/2018 ZAYRA GOMEZ MD, Ot Z34.91 ENCNTR FOR SUPRVSN OF NORMAL PREG, UNSP, 12/06/2018 ZAYRA GOMEZ MD, Ot Z36 ENCOUNTER FOR SCREENING OF MOT 12/06/2018 ZAYRA GOMEZ MD, Ot Z3A.16 16 WEEKS GESTATION OF 12/06/2018 ZAYRA GOMEZ MD, Ot Z34.92 ENCNTR FOR SUPRVSN OF NORMAL PREG, UNSP, 12/06/2018 ZAYRA GOMEZ MD, Ot Z36 ENCOUNTER FOR SCREENING OF MOT 12/06/2018 ZAYRA GOMEZ MD, Ot Z34.92 ENCNTR FOR SUPRVSN OF NORMAL PREG, UNSP, 12/06/2018 ZAYRA GOMEZ MD, Ot Z3A.17 17 WEEKS GESTATION OF 12/06/2018 ZAYRA GOMEZ MD, Ot Z36.89 ENCOUNTER FOR OTHER SPECIFIED 12/06/2018 ZAYRA GOMEZ MD, Ot Z3A.24 24 WEEKS GESTATION OF Procedures Code Description [place] [address] ROUTINE VENIPUNCTURE 07/28/2012 92809 US OB ULTRASOUND 07/28/2012 61590 TSH 07/28/2012 06811 SYPHILLIS-STATE LAB 07/28/2012 85968 HIV-STATE LAB 07/28/2012 84740 RUBELLA-STATE LAB 07/28/2012 13158 ANTIBODY SCREEN (order) 07/28/2012 41857 BLOOD TYPE/Rh FACTOR 07/28/2012 01230 CULTURE URINE 07/28/2012 54230 HEP B SURFACE ANTIGEN (STATE ) 07/28/2012 50433 CBC 07/28/2012 76244 ROUTINE VENIPUNCTURE 08/03/2012 98857 T4 FREE 08/04/2012 46982 T3 TOTAL 08/04/2012 67604 UA LONG DIP 08/27/2012 82392 ROUTINE VENIPUNCTURE 09/29/2012 18558 US OB ULTRASOUND 09/29/2012 83531 TSH 09/29/2012 87943 T3 TOTAL 09/29/2012 48638 RUBELLA ANTIBODY, IGG 09/29/2012 00193 GC/CHLAM URINE (STATE) 09/29/2012 19346 UA OB DIP 09/29/2012 92281 ROUTINE VENIPUNCTURE 11/10/2012 22122 UA OB DIP 11/10/2012 84318 HEMOGLOBIN (IN-HOUSE) 11/10/2012 49202 US OB - LIMITED 11/10/2012 97522 GLUCOSE SHANICE 1 HOUR 11/10/2012 70292 CULTURE UROGENITAL 11/16/2012 63803 UA OB DIP 11/16/2012 22878 UA OB DIP 12/15/2012 90445 UA OB DIP 12/23/2012 84410 UA OB DIP 01/01/2013 PHYSI PHYSICAL THERAPY, VIA PHAM 01/01/2013 08566 UA OB DIP 01/06/2013 39932 UA OB DIP 01/21/2013 55122 UA OB DIP 02/04/2013 90209 CULTURE GROUP B STREP VAG 02/05/2013 95785 UA OB DIP 02/11/2013 31592 UA OB DIP 02/18/2013 13416 URINE TEST (IN- HOUSE) 03/17/2013 15295 CERUMEN REMOVAL 03/26/2013 03472 URINE TEST (IN- HOUSE) 08/23/2013 43155 TEST, URINE (IN- HOUSE) 01/11/2014 22365 UA LONG DIP 01/11/2014 62602 US OB - EARLY <14 WEEKS 01/11/2014 42409 UA W/ CULTURE IF INDICATED 01/13/2014 45662 ROUTINE VENIPUNCTURE 02/15/2014 63517 T4 FREE 02/15/2014 48049 T3 TOTAL 02/15/2014 22639 SYPHILLIS-STATE LAB 02/15/2014 93216 HIV (STATE LAB) 02/15/2014 79077 ANTIBODY SCREEN (order) 02/15/2014 87943 HEP B SURFACE ANTIGEN (STATE ) 02/15/2014 58439 CBC 02/15/2014 62029 TSH 02/15/2014 1187046 ANTIBODY SCREEN (RESULT ONLY) 02/16/2014 22921 OXIMETRY 03/01/2014 45041 CULTURE UROGENITAL 03/17/2014 97342 CULTURE URINE 03/17/2014 65608 GC/CHLAM PROBE (STATE) 03/17/2014 06575 UA OB DIP 03/17/2014 35680 TRICHOMONAS (IN-HOUSE) 03/17/2014 75598 XRAY WRIST LEFT 2 VIEWS 04/01/2014 38427 OXIMETRY 04/01/2014 89050 UA OB DIP 04/13/2014 65370 US OB - COMPLETE >14 WEEKS 05/02/2014 51918 UA OB DIP 05/18/2014 37202 ROUTINE VENIPUNCTURE 06/15/2014 61714 UA OB DIP 06/15/2014 13943 CBC 06/16/2014 73576 GLUCOSE SHANICE 1 HOUR 06/16/2014 84367 UA OB DIP 06/29/2014 04332 UA OB DIP 07/13/2014 Obstetric Yolande, Adam 07/13/2014 61432 UA OB DIP 07/27/2014 86693 CULTURE GROUP B STREP VAG 08/12/2014 06847 UA OB DIP 08/15/2014 53930 UA OB DIP 08/23/2014 93804 ROUTINE VENIPUNCTURE 08/24/2014 77726 UA LONG DIP 08/24/2014 32570 GLUCOSE FINGER STICK 08/24/2014 93361 T4 FREE 08/24/2014 06069 TSH 08/24/2014 13887 T3 TOTAL 08/24/2014 26889 UA OB DIP 08/31/2014 14876 THERAPUTIC INJ SQ/IM 01/05/2015 23593 TEST, URINE (IN- HOUSE) 01/05/2015 [id number] DEPO PROVERA 01/05/2015 26620 UA LONG DIP 01/14/2015 [id number] EXTRACTION OF POC, LOW CERVICAL, OPEN AP 07/02/2017 Results Test Result Range Genital Culture, Routine - 07/27/16 13:09 Genital Culture, Routine Note CBC With Differential/Platelet - 11/27/16 15:07 WBC 8.1 x10E3/uL 3.4-10.8 RBC 4.31 x10E6/uL 3.77-5.28 Hemoglobin 13.5 g/dL 11.1-15.9 Hematocrit 39.2 % 34.0-46.6 MCV 91 fL 79-97 MCH 31.3 pg 26.6-33.0 MCHC 34.4 g/dL 31.5-35.7 RDW 13.0 % 12.3-15.4 Platelets 269 x10E3/uL 150-379 Neutrophils 66 % Lymphs 24 % Monocytes 8 % Eos 2 % Basos 0 % Neutrophils (Absolute) 5.3 x10E3/uL 1.4-7.0 Lymphs (Absolute) 2.0 x10E3/uL 0.7-3.1 Monocytes(Absolute) 0.7 x10E3/uL 0.1-0.9 Eos (Absolute) 0.1 x10E3/uL 0.0-0.4 Baso (Absolute) 0.0 x10E3/uL 0.0-0.2 Immature Granulocytes 0 % Immature Grans (Abs) 0.0 x10E3/uL 0.0-0.1 TSH - 11/27/16 15:07 TSH 0.400 uIU/mL 0.450-4.500 Rubella Antibodies, IgG - 11/27/16 15:07 Rubella Antibodies, IgG 1.43 index Immune >0.99 Antibody Screen - 11/27/16 15:07 Antibody Screen Negative Negative Urine Culture, Routine - 11/27/16 15:07 Urine Culture, Routine Note Pap Lb, rfx HPV ASCU - 11/27/16 15:07 DIAGNOSIS: Comment Specimen adequacy: Comment Clinician provided ICD10: Comment Performed by: Comment . . Pathologist provided ICD10: Comment Note: Comment . Comment Genital Culture, Routine - 11/27/16 15:07 Genital Culture, Routine Note Complete urinalysis with reflex to culture - [...] urinalysis with reflex to culture NO NRG Thyroxine (T4) Free, Direct, S - 12/25/16 14:59 T4,Free(Direct) 1.57 ng/dL 0.82-1.77 Complete urinalysis with reflex to culture - [...] 02/21/17 14:57 URINE CULTURE RESULTS CONTAMINATION NRG Anaerobic and Aerobic Culture - 02/23/17 17:16 Anaerobic and Aerobic Culture Note Complete urinalysis with reflex to culture - [...] culture - 03/04/17 16:00 Bacterial urine culture [id number] NRG COLONY COUNT 10,000/ML - 100,000/ML NRG FTX;REPORTABLE SENSITIVITY REPORTED AT 0756, 6-15-17 [facility] URINE CULTURE RESULTS PLUS [facility] Bacterial susceptibility panel - 03/04/17 16:00 Gentamicin [...] susceptibility test by minimum inhibitory concentration - [facility] Complete urinalysis with reflex to culture - [...] culture - 03/18/17 16:25 Bacterial urine culture [id number] NRG COLONY COUNT 10,000/ML - 100,000/ML NRG FREE TEXT ENTRY 2 MIXED REJI 10,000 - 100,000/ML NRG CBC With Differential/Platelet - 04/02/17 14:29 WBC 9.6 x10E3/uL 3.4-10.8 RBC 3.99 x10E6/uL 3.77-5.28 Hemoglobin 12.4 g/dL 11.1-15.9 Hematocrit 36.5 % 34.0-46.6 MCV 92 fL 79-97 MCH 31.1 pg 26.6-33.0 MCHC 34.0 g/dL 31.5-35.7 RDW 13.9 % 12.3-15.4 Platelets 226 x10E3/uL 150-379 Neutrophils 73 % Lymphs 16 % Monocytes 8 % Eos 2 % Basos 0 % Neutrophils (Absolute) 7.1 x10E3/uL 1.4-7.0 Lymphs (Absolute) 1.5 x10E3/uL 0.7-3.1 Monocytes(Absolute) 0.8 x10E3/uL 0.1-0.9 Eos (Absolute) 0.1 x10E3/uL 0.0-0.4 Baso (Absolute) 0.0 x10E3/uL 0.0-0.2 Immature Granulocytes 1 % Immature Grans (Abs) 0.1 x10E3/uL 0.0-0.1 Gest. Diabetes 1-Hr Screen - 04/02/17 14:29 Gestational Diabetes Screen 96 mg/dL 65-139 Complete urinalysis with reflex to culture - [...] URINE CULTURE RESULTS 10,000/ML - 100,000/ML NRG Strep Gp B Culture - 06/11/17 16:07 Strep Gp B Culture Negative Negative CULTURE, GBS - 06/11/17 16:07 Strep Gp B Culture Negative Negative Methicillin resistant Staphylococcus aureus (MRSA) screening culture [...] Automated blood platelet mean volume measurement 12.3 [fo_us] 7.4-10.4 Automated blood neutrophils/100 leukocytes 66 % [...] ABO+Rh group BP NRG Transfusion band number [id number] Blood group antibody screen NEGATIVE NR Complete blood count (CBC) with automated white blood cell (WBC) differential - 07/03/17 05:50 Blood leukocytes automated count (number/volume) 9.1 10*3/uL 4.3-11.0 Blood erythrocytes automated count (number/volume) 3.06 10*6/uL 4.35-5.85 Venous blood hemoglobin measurement (mass/volume) 9.6 g/dL 11.5-16.0 Blood hematocrit (volume fraction) 28 % 35-52 Automated erythrocyte mean corpuscular volume 92 [fo_us] 80-99 Automated erythrocyte mean corpuscular hemoglobin (mass [...] plasma calcium measurement (mass/volume) 9.4 mg/dL 8.5-10.1 Complete urinalysis with reflex to culture - 12/01/17 19:05 Urine color determination YELLOW NRG Urine clarity [...] automated white blood cell (WBC) differential - 12/01/17 19:35 Blood leukocytes automated count (number/volume) 7.9 10*3/uL 4.3-11.0 Blood erythrocytes automated count (number/volume) 4.40 10*6/uL 4.35-5.85 Venous blood hemoglobin measurement (mass/volume) 13.6 g/dL 11.5-16.0 Blood hematocrit (volume fraction) 39 % 35-52 Automated erythrocyte mean corpuscular volume 88 [foz_us] 80-99 Automated erythrocyte mean corpuscular hemoglobin (mass per erythrocyte) 31 pg 25-34 Automated erythrocyte mean corpuscular hemoglobin concentration measurement ( mass/volume) 35 g/dL 32-36 Automated erythrocyte distribution width ratio 13.9 % 10.0-14.5 Automated blood platelet count (count/volume) 285 10*3/uL 130-400 Automated blood platelet mean volume measurement 10.5 [foz_us] 7.4-10.4 Automated blood neutrophils/100 leukocytes 72 % 42-75 Automated blood lymphocytes/100 leukocytes 17 % 12-44 Blood monocytes/100 leukocytes 9 % 0-12 Automated blood eosinophils/100 leukocytes 2 % 0-10 Automated blood basophils/100 leukocytes 0 % 0-10 Blood neutrophils automated count (number/volume) 5.7 10*3 1.8-7.8 Blood lymphocytes automated count (number/volume) 1.3 10*3 1.0-4.0 Blood monocytes automated count (number/volume) 0.7 10*3 0.0-1.0 Automated eosinophil count 0.2 10*3/uL 0.0-0.3 Automated blood basophil count (count/volume) 0.0 10*3/uL 0.0-0.1 Comprehensive metabolic panel - 12/01/17 19:35 Serum or plasma sodium measurement (moles/volume) 138 mmol/L 135-145 Serum or plasma potassium measurement (moles/volume) 3.7 mmol/L 3.6-5.0 Serum or plasma chloride measurement (moles/volume) 104 mmol/L 98-107 Carbon dioxide 25 mmol/L 21-32 Serum or plasma anion gap determination (moles/volume) 9 mmol/L 5-14 Serum or plasma urea nitrogen measurement (mass/volume) 10 mg/dL 7-18 Serum or plasma creatinine measurement (mass/volume) 0.68 mg/dL 0.60-1.30 Serum or plasma urea nitrogen/creatinine mass ratio 15 NRG Serum or plasma creatinine measurement with calculation of estimated glomerular filtration rate > NRG Serum or plasma glucose measurement (mass/volume) 84 mg/dL 70-105 Serum or plasma calcium measurement (mass/volume) 9.1 mg/dL 8.5-10.1 Serum or plasma total bilirubin measurement (mass/volume) 1.1 mg/dL 0.1-1.0 Serum or plasma alkaline phosphatase measurement (enzymatic activity/volume) 79 U/L 40-136 Serum or plasma aspartate aminotransferase measurement (enzymatic activity/ volume) 14 U/L 5-34 Serum or plasma alanine aminotransferase measurement (enzymatic activity/volume ) 18 U/L 0-55 Serum or plasma protein measurement (mass/volume) 7.3 g/dL 6.4-8.2 Serum or plasma albumin measurement (mass/volume) 4.4 g/dL 3.2-4.5 Lipase - 12/01/17 19:35 Lipase 17 U/L 8-78 Serum or plasma choriogonadotropin measurement (units/volume) - 12/01/17 19:35 Serum or plasma choriogonadotropin measurement (units/volume) 5161 m [iU]/mL <5 Serum or plasma C reactive protein measurement (mass/volume) - 12/01/17 19:35 Serum or plasma C reactive protein measurement (mass/volume) 0.19 mg /dL 0.00-0.50 CULTURE, URINE - 12/11/17 10:22 CULTURE, URINE, ROUTINE SEE NOTE NRG Complete urinalysis with reflex to culture - 02/13/18 21:30 Urine color determination YELLOW NRG Urine clarity [...] culture YES NRG Bacterial urine culture - 02/13/18 21:30 Bacterial urine culture SEE COMMEN NRG COLONY COUNT . NRG Complete blood count (CBC) with automated white blood cell (WBC) differential - 02/13/18 21:40 Blood leukocytes automated count (number/volume) 10.1 10*3/uL 4.3-11.0 Blood erythrocytes automated count (number/volume) 3.94 10*6/uL 4.35-5.85 Venous blood hemoglobin measurement (mass/volume) 12.5 g/dL 11.5-16.0 Blood hematocrit (volume fraction) 35 % 35-52 Automated erythrocyte mean corpuscular volume 88 [foz_us] 80-99 Automated erythrocyte mean corpuscular hemoglobin (mass per erythrocyte) 32 pg 25-34 Automated erythrocyte mean corpuscular hemoglobin concentration measurement ( mass/volume) 36 g/dL 32-36 Automated erythrocyte distribution width ratio 14.0 % 10.0-14.5 Automated blood platelet count (count/volume) 169 10*3/uL 130-400 Automated blood platelet mean volume measurement 11.1 [foz_us] 7.4-10.4 Automated blood neutrophils/100 leukocytes 80 % 42-75 Automated blood lymphocytes/100 leukocytes 9 % 12-44 Blood monocytes/100 leukocytes 8 % 0-12 Automated blood eosinophils/100 leukocytes 3 % 0-10 Automated blood basophils/100 leukocytes 0 % 0-10 Blood neutrophils automated count (number/volume) 8.1 10*3 1.8-7.8 Blood lymphocytes automated count (number/volume) 0.9 10*3 1.0-4.0 Blood monocytes automated count (number/volume) 0.8 10*3 0.0-1.0 Automated eosinophil count 0.3 10*3/uL 0.0-0.3 Automated blood basophil count (count/volume) 0.0 10*3/uL 0.0-0.1 Comprehensive metabolic panel - 02/13/18 21:40 Serum or plasma sodium measurement (moles/volume) 138 mmol/L 135-145 Serum or plasma potassium measurement (moles/volume) 3.8 mmol/L 3.6-5.0 Serum or plasma chloride measurement (moles/volume) 107 mmol/L 98-107 Carbon dioxide 21 mmol/L 21-32 Serum or plasma anion gap determination (moles/volume) 10 mmol/L 5-14 Serum or plasma urea nitrogen measurement (mass/volume) 8 mg/dL 7-18 Serum or plasma creatinine measurement (mass/volume) 0.69 mg/dL 0.60-1.30 Serum or plasma urea nitrogen/creatinine mass ratio 12 NRG Serum or plasma creatinine measurement with calculation of estimated glomerular filtration rate > NRG Serum or plasma glucose measurement (mass/volume) 98 mg/dL 70-105 Serum or plasma calcium measurement (mass/volume) 9.0 mg/dL 8.5-10.1 Serum or plasma total bilirubin measurement (mass/volume) 0.7 mg/dL 0.1-1.0 Serum or plasma alkaline phosphatase measurement (enzymatic activity/volume) 61 U/L 40-136 Serum or plasma aspartate aminotransferase measurement (enzymatic activity/ volume) 14 U/L 5-34 Serum or plasma alanine aminotransferase measurement (enzymatic activity/volume ) 10 U/L 0-55 Serum or plasma protein measurement (mass/volume) 6.7 g/dL 6.4-8.2 Serum or plasma albumin measurement (mass/volume) 3.7 g/dL 3.2-4.5 Complete urinalysis with reflex to culture - 03/09/18 22:15 Urine color determination YELLOW NRG Urine [...] automated white blood cell (WBC) differential - 03/09/18 22:55 Blood leukocytes automated count (number/volume) 7.9 10*3/uL 4.3-11.0 Blood erythrocytes automated count (number/volume) 3.42 10*6/uL 4.35-5.85 Venous blood hemoglobin measurement (mass/volume) 11.2 g/dL 11.5-16.0 Blood hematocrit (volume fraction) 31 % 35-52 Automated erythrocyte mean corpuscular volume 91 [foz_us] 80-99 Automated erythrocyte mean corpuscular hemoglobin (mass per erythrocyte) 33 pg 25-34 Automated erythrocyte mean corpuscular hemoglobin concentration measurement ( mass/volume) 36 g/dL 32-36 Automated erythrocyte distribution width ratio 14.4 % 10.0-14.5 Automated blood platelet count (count/volume) 222 10*3/uL 130-400 Automated blood platelet mean volume measurement 10.1 [foz_us] 7.4-10.4 Automated blood neutrophils/100 leukocytes 61 % 42-75 Automated blood lymphocytes/100 leukocytes 26 % 12-44 Blood monocytes/100 leukocytes 10 % 0-12 Automated blood eosinophils/100 leukocytes 3 % 0-10 Automated blood basophils/100 leukocytes 0 % 0-10 Blood neutrophils automated count (number/volume) 4.8 10*3 1.8-7.8 Blood lymphocytes automated count (number/volume) 2.1 10*3 1.0-4.0 Blood monocytes automated count (number/volume) 0.8 10*3 0.0-1.0 Automated eosinophil count 0.2 10*3/uL 0.0-0.3 Automated blood basophil count (count/volume) 0.0 10*3/uL 0.0-0.1 Complete blood count (CBC) with automated white blood cell (WBC) differential - 03/30/18 21:03 Blood leukocytes automated count (number/volume) 9.4 10*3/uL 4.3-11.0 Blood erythrocytes automated count (number/volume) 3.92 10*6/uL 4.35-5.85 Venous blood hemoglobin measurement (mass/volume) 12.5 g/dL 11.5-16.0 Blood hematocrit (volume fraction) 35 % 35-52 Automated erythrocyte mean corpuscular volume 90 [foz_us] 80-99 Automated erythrocyte mean corpuscular hemoglobin (mass per erythrocyte) 32 pg 25-34 Automated erythrocyte mean corpuscular hemoglobin concentration measurement ( mass/volume) 35 g/dL 32-36 Automated erythrocyte distribution width ratio 13.8 % 10.0-14.5 Automated blood platelet count (count/volume) 219 10*3/uL 130-400 Automated blood platelet mean volume measurement 10.0 [foz_us] 7.4-10.4 Automated blood neutrophils/100 leukocytes 70 % 42-75 Automated blood lymphocytes/100 leukocytes 21 % 12-44 Blood monocytes/100 leukocytes 8 % 0-12 Automated blood eosinophils/100 leukocytes 1 % 0-10 Automated blood basophils/100 leukocytes 0 % 0-10 Blood neutrophils automated count (number/volume) 6.6 10*3 1.8-7.8 Blood lymphocytes automated count (number/volume) 2.0 10*3 1.0-4.0 Blood monocytes automated count (number/volume) 0.7 10*3 0.0-1.0 Automated eosinophil count 0.1 10*3/uL 0.0-0.3 Automated blood basophil count (count/volume) 0.0 10*3/uL 0.0-0.1 Comprehensive metabolic panel - 03/30/18 21:03 Serum or plasma sodium measurement (moles/volume) 138 mmol/L 135-145 Serum or plasma potassium measurement (moles/volume) 3.5 mmol/L 3.6-5.0 Serum or plasma chloride measurement (moles/volume) 108 mmol/L 98-107 Carbon dioxide 19 mmol/L 21-32 Serum or plasma anion gap determination (moles/volume) 11 mmol/L 5-14 Serum or plasma urea nitrogen measurement (mass/volume) 5 mg/dL 7-18 Serum or plasma creatinine measurement (mass/volume) 0.64 mg/dL 0.60-1.30 Serum or plasma urea nitrogen/creatinine mass ratio 8 NRG Serum or plasma creatinine measurement with calculation of estimated glomerular filtration rate > NRG Serum or plasma glucose measurement (mass/volume) 84 mg/dL 70-105 Serum or plasma calcium measurement (mass/volume) 8.7 mg/dL 8.5-10.1 Serum or plasma total bilirubin measurement (mass/volume) 1.3 mg/dL 0.1-1.0 Serum or plasma alkaline phosphatase measurement (enzymatic activity/volume) 68 U/L 40-136 Serum or plasma aspartate aminotransferase measurement (enzymatic activity/ volume) 14 U/L 5-34 Serum or plasma alanine aminotransferase measurement (enzymatic activity/volume ) 10 U/L 0-55 Serum or plasma protein measurement (mass/volume) 6.6 g/dL 6.4-8.2 Serum or plasma albumin measurement (mass/volume) 3.6 g/dL 3.2-4.5 Serum or plasma salicylates measurement (mass/volume) - 03/30/18 21:03 Serum or plasma salicylates measurement (mass/volume) < mg/dL 5.0-20.0 Serum or plasma acetaminophen measurement (mass/volume) - 03/30/18 21:03 Serum or plasma acetaminophen measurement (mass/volume) < ug/mL 10-30 Serum or plasma ethanol measurement (mass/volume) - 03/30/18 21:03 Serum or plasma ethanol measurement (mass/volume) < mg/dL <10 Complete urinalysis with reflex to culture - 03/30/18 21:49 Urine color determination YELLOW NRG Urine clarity [...] Urine ketones detection by automated test strip 4+ NEGATIVE Urine nitrite detection by test strip [...] detection in urine sediment by light microscopy 0-2 NRG Crystals detection in urine sediment by light microscopy NONE NRG Casts detection in urine sediment by light microscopy NONE NRG Mucus detection in urine sediment by light microscopy LARGE NRG Complete urinalysis with reflex to culture NO NRG Urine drug screening test - 03/30/18 21:49 Urine phencyclidine detection by screening method NEGATIVE NEGATIVE Urine benzodiazepines detection by screening method NEGATIVE NEGATIVE Urine cocaine detection NEGATIVE NEGATIVE Urine amphetamines detection by screening method NEGATIVE NEGATIVE Urine methamphetamine detection by screening method NEGATIVE NEGATIVE Urine cannabinoids detection by screening method NEGATIVE NEGATIVE Urine opiates detection by screening method NEGATIVE NEGATIVE Urine barbiturates detection NEGATIVE NEGATIVE Screening urine tricyclic antidepressants detection NEGATIVE NEGATIVE Urine methadone detection by screening method NEGATIVE NEGATIVE Urine oxycodone detection NEGATIVE NEGATIVE Urine propoxyphene detection NEGATIVE NEGATIVE Methicillin resistant Staphylococcus aureus (MRSA) screening culture - 23:35 Methicillin resistant Staphylococcus aureus (MRSA) screening culture NEG NRG Complete blood count (CBC) with automated white blood cell (WBC) differential - 03/31/18 03:00 Blood leukocytes automated count (number/volume) 9.2 10*3/uL 4.3-11.0 Blood erythrocytes automated count (number/volume) 3.49 10*6/uL 4.35-5.85 Venous blood hemoglobin measurement (mass/volume) 11.3 g/dL 11.5-16.0 Blood hematocrit (volume fraction) 32 % 35-52 Automated erythrocyte mean corpuscular volume 91 [foz_us] 80-99 Automated erythrocyte mean corpuscular hemoglobin (mass per erythrocyte) 32 pg 25-34 Automated erythrocyte mean corpuscular hemoglobin concentration measurement ( mass/volume) 36 g/dL 32-36 Automated erythrocyte distribution width ratio 13.7 % 10.0-14.5 Automated blood platelet count (count/volume) 211 10*3/uL 130-400 Automated blood platelet mean volume measurement 10.6 [foz_us] 7.4-10.4 Automated blood neutrophils/100 leukocytes 78 % 42-75 Automated blood lymphocytes/100 leukocytes 16 % 12-44 Blood monocytes/100 leukocytes 6 % 0-12 Automated blood eosinophils/100 leukocytes 0 % 0-10 Automated blood basophils/100 leukocytes 0 % 0-10 Blood neutrophils automated count (number/volume) 7.1 10*3 1.8-7.8 Blood lymphocytes automated count (number/volume) 1.4 10*3 1.0-4.0 Blood monocytes automated count (number/volume) 0.6 10*3 0.0-1.0 Automated eosinophil count 0.0 10*3/uL 0.0-0.3 Automated blood basophil count (count/volume) 0.0 10*3/uL 0.0-0.1 Whole blood basic metabolic panel - 03/31/18 03:00 Serum or plasma sodium measurement (moles/volume) 136 mmol/L 135-145 Serum or plasma potassium measurement (moles/volume) 3.7 mmol/L 3.6-5.0 Serum or plasma chloride measurement (moles/volume) 110 mmol/L 98-107 Carbon dioxide 20 mmol/L 21-32 Serum or plasma anion gap determination (moles/volume) 6 mmol/L 5-14 Serum or plasma urea nitrogen measurement (mass/volume) 6 mg/dL 7-18 Serum or plasma creatinine measurement (mass/volume) 0.62 mg/dL 0.60-1.30 Serum or plasma urea nitrogen/creatinine mass ratio 10 NRG Serum or plasma creatinine measurement with calculation of estimated glomerular filtration rate > NRG Serum or plasma glucose measurement (mass/volume) 111 mg/dL 70-105 Serum or plasma calcium measurement (mass/volume) 7.8 mg/dL 8.5-10.1 Serum or plasma phosphate measurement (mass/volume) - 03/31/18 03:00 Serum or plasma phosphate measurement (mass/volume) 2.3 mg/dL 2.3-4.7 Magnesium - 03/31/18 03:00 Magnesium 1.8 mg/dL 1.8-2.4 Influenza virus A and B antigen detection - 12/06/18 09:15 FLU RESULT NEGATIVE FOR INFLUENZA A AND B ANTIGENS BY IA NRG Encounters ACCT No. Visit Date/Time Discharge Status Pt. Type Provider Facility Loc./Unit Complaint [id number] 01/14/2015 12:29:00 01/14/2015 23:59:59 [facility] Outpatient JAMIA BINGHAM APRN [id number] 01/05/2015 11:15:00 01/05/2015 23:59:59 [facility] Outpatient DERICK PORRAS DO [id number] 12/29/2014 09:17:00 12/29/2014 23:59:59 CLS Outpatient DERICK PORRAS DO [id number] 10/20/2014 09:37:00 10/20/2014 23:59:59 CLS Outpatient GILBERTO ROPER APRN [id number] 08/31/2014 14:30:00 08/31/2014 23:59:59 CLS Outpatient ZAYRA GOMEZ MD [id number] 08/24/2014 12:34:00 08/24/2014 23:59:59 CLS Outpatient ALNA SUAREZ MD [id number] 08/23/2014 11:00:00 08/23/2014 23:59:59 CLS Outpatient ALAN SUAREZ MD [id number] 08/23/2014 11:00:00 08/23/2014 23:59:59 CLS Outpatient ALAN SUAREZ MD [id number] 08/15/2014 09:23:00 08/15/2014 23:59:59 CLS Outpatient JUDSON GRADY GILBERTO A [id number] 07/27/2014 14:01:00 07/27/2014 23:59:59 CLS Outpatient ZAYRA GOMEZ MD [id number] 07/21/2014 14:44:00 07/21/2014 23:59:59 CLS Outpatient BENITEZ SKINNER APRN [id number] 07/13/2014 14:10:00 07/13/2014 23:59:59 CLS Outpatient ZAYRA GOMEZ MD [id number] 07/13/2014 14:10:00 07/13/2014 23:59:59 CLS Outpatient ZAYRA GOMEZ MD [id number] 06/29/2014 15:46:00 06/29/2014 23:59:59 CLS Outpatient ZAYRA GOMEZ MD [id number] 06/23/2014 13:15:00 06/23/2014 23:59:59 CLS Outpatient MARLIN HORNE APRN [id number] 06/15/2014 15:17:00 06/15/2014 23:59:59 CLS Outpatient ZAYRA GOMEZ MD [id number] 05/18/2014 13:55:00 05/18/2014 23:59:59 CLS Outpatient ZAYRA GOMEZ MD [id number] 04/13/2014 13:46:00 04/13/2014 23:59:59 CLS Outpatient DERICK PORRAS DO [id number] 04/01/2014 11:53:00 04/01/2014 23:59:59 CLS Outpatient DERICK PORRAS DO [id number] 03/17/2014 10:10:00 03/17/2014 23:59:59 CLS Outpatient GILBERTO ROPER APRN [id number] 03/03/2014 10:32:00 03/03/2014 23:59:59 CLS Outpatient MARLIN HORNE APRN [id number] 03/01/2014 08:27:00 03/01/2014 23:59:59 CLS Outpatient SILVA VALENUZELA APRN [id number] 02/15/2014 09:46:00 02/15/2014 23:59:59 CLS Outpatient GILBERTO ROPER APRN [id number] 01/25/2014 06:20:00 01/25/2014 23:59:59 CLS Outpatient [id number] 01/13/2014 08:52:00 01/13/2014 23:59:59 CLS Outpatient GILBERTO ROPER APRN [id number] 01/11/2014 16:01:00 01/11/2014 23:59:59 CLS Outpatient GILBERTO ROPER APRN [id number] 12/27/2013 08:26:00 12/27/2013 23:59:59 CLS Outpatient MARLIN HORNE APRN [id number] 08/23/2013 09:41:00 08/23/2013 23:59:59 CLS Outpatient GILBERTO ROPER APRN [id number] 08/12/2013 15:15:00 08/12/2013 23:59:59 CLS Outpatient DERICK PORRAS DO [id number] 12/23/2012 11:29:00 12/23/2012 23:59:59 CLS Outpatient [id number] 12/15/2012 11:30:00 12/15/2012 23:59:59 CLS Outpatient [id number] 11/26/2012 13:32:00 11/26/2012 23:59:59 CLS Outpatient [id number] 11/16/2012 16:01:00 11/16/2012 23:59:59 CLS Outpatient DERICK PORRAS DO [id number] 11/10/2012 15:02:00 11/10/2012 23:59:59 CLS Outpatient [id number] 10/28/2012 11:05:00 10/28/2012 23:59:59 CLS Outpatient [id number] 10/27/2012 16:20:00 10/27/2012 23:59:59 CLS Outpatient [id number] 10/20/2012 14:40:00 10/20/2012 23:59:59 CLS Outpatient DERICK PORRAS DO [id number] 09/29/2012 16:28:00 09/29/2012 23:59:59 CLS Outpatient [id number] 08/27/2012 16:30:00 08/27/2012 23:59:59 [place] [id number] 07/28/2012 13:46:00 07/28/2012 23:59:59 CLS Outpatient DERICK PORRAS DO [id number] 03/26/2013 10:27:00 Document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
[2018-12-13 18:47] LABS: BILIRUBIN,URINE NEGATIVE (NEGATIVE); CLARITY,URINE SLIGHTLY CLOUDY; COLOR,URINE YELLOW; GLUCOSE, URINE (UA) NEGATIVE (NEGATIVE); KETONES,URINE NEGATIVE (NEGATIVE); LEUKOCYTE ESTERASE ,URINE 3+ (NEGATIVE); NITRITE,URINE NEGATIVE (NEGATIVE); PH,URINE 7 (5-9); PROTEIN,URINE NEGATIVE (NEGATIVE); UROBILINOGEN,URINE NORMAL (NORMAL)
--- NOTE | 2018-12-13 18:58 | ED Psychosocial ---
General Chief Complaint: Psych/Social Disorder Stated Complaint: OFF OF MEDS FOR DEPRESSION AND ANXIETY Nursing Triage Note: PT HAS BEEN OFF PSYCH MEDS FOR APPROX 10 MO. PT STATES HAS PSYCH HX OF DEPRESSION AND ANXIETY. PT STATES IS NOT SUCIDIAL AT THIS TIME BUT HAS FELT SUCIDIAL IDEATIONS PAST. PT STATES DEPRESSED, DRINKING HAS INCREASED. PT STATES FRIDAY DRINKING WORSE "BLACK OUT DRUNK" Source: patient History of Present Illness Date Seen by Provider: Dec 13, 2018 Time Seen by Provider: 18:25 Initial Comments PT ARRIVES VIA POV FROM HOME PT STATES "IT'S MY DEPRESSION STUFF" PT HAS LONG HISTORY OF PSYCH ISSUES SINCE AGE 5 STATES MOST OF HER ISSUES WHEN VERY YOUNG WERE "ANGER ISSUES" STATES SHE HAS BEEN IN AND OUT OF THERAPY SINCE AGE 17, AND WAS STARTED ON ANTIDEPRESSANTS AT AGE 17 STATES MOST RECENTLY SHE HAD BEEN ON LEXAPRO, AND WAS ON IT FOR A FEW MONTHS, BUT IT DID NOT HELP AND SHE "FELT LIKE A ZOMBIE" STATES LAST SEPTEMBER 2017, SHE WAS SWITCHED TO ZOLOFT AND WAS TITRATED UP TO 50 MG/DAY AND WAS DOING WELL, THEN BECAME AND STOPPED IT IN JANUARY 2018 PT DELIVERED IN JUNE 2018, BUT HAS NEVER RESTARTED MEDICATION. PT HAD BTL AND IS NOT ON CONTROL. WAS LIVING IN [place] FOR A WHILE AND THEN MOVED BACK HERE IN AUGUST. HAS NOT ATTEMPTED TO FOLLOW UP WITH ANYONE UNTIL NOW--WAS SEEING SOMEONE AT [facility], AND HAS A NEW APPOINTMENT ON 12/24/18 WITH SAME MENTAL HEALTH PROVIDER THAT SHE USED TO SEE. PT STATES "EVERYTHING IS EXPLODING AND I DON'T WANT TO GET OUT OF BED AND I CAN' T STOP CRYING" STATES "I'VE SAID I WANTED TO KILL MYSELF A FEW TIMES" AND STATES SHE HAS SAID AND FELT THAT WAY TODAY, AND IS FEELING THAT WAY NOW. NO PLAN STATES AT AGE 17 SHE DID CUT HER WRISTS, AND WHILE SHE WAS SHE DID INTENTIONALLY OVER DOSE--STATES SHE TOOK 4 ANTIDEPRESSANTS AND 10 BENADRYL--" BUT NOT TO KILL MYSELF-I TOOK IT TO RELAX AND GET ALL THE STRESS AWAY" SYMPTOMS ARE NO DIFFERENT TODAY IN ANY WAY PCP: [facility] Allergies and Home Medications Allergies Coded Allergies: cefaclor (Unverified Allergy, Mild, 03/11/09) Uncoded Allergies: BEE'S (Allergy, Unknown, 07/09/14) Home Medications Fluticasone Propionate 9.9 Ml [place].susp, 1 SPRAY NS DAILY, (Reported) 1 SPRAY EACH NARE DAILY Loratadine 10 Mg Tablet, 10 MG PO DAILY, (Reported) Nitrofurantoin Monohyd/M-Cryst 100 Mg Capsule, 100 MG PO BID Prescribed by: PRINCE CALDERON on 12/13/182105 Sertraline HCl 50 Mg Tablet, 50 MG PO DAILY Prescribed by: PRINCE CALDERON on 12/13/182105 Patient Home Medication List Home Medication List Reviewed: Yes Review of Systems Constitutional: no symptoms reported EENTM: no symptoms reported Respiratory: no symptoms reported Cardiovascular: no symptoms reported Gastrointestinal: no symptoms reported Genitourinary: see HPI : No Control/STD Prophylaxis: None, Other (BTL) Musculoskeletal: no symptoms reported Skin: no symptoms reported Psychiatric/Neurological: See HPI Past Hzbwlkm-Snbkcc-Mbcnkp Hx Patient Social History Alcohol Use: Regular Use (STATES SHE GETS "BLACKOUT DRUNK" --LAST TIME 1 WEEK AGO, PER PT 12/13/18) Alcohol Beverage of Choice: Beer, Cheap Liquor Recreational Drug Use: Yes (THC TEEN) Drug of Choice: THC TEEN Smoking Status: Current Someday Smoker Type Used: Cigarettes 2nd Hand Smoke Exposure: No Recent Foreign Travel: No Contact w/Someone Who Travel: No Recent Infectious Disease Expo: No Recent Hopitalizations: No Physical Abuse: No Sexual Abuse: No Mistreated: No Fear: No Immunizations Up To Date Tetanus Booster (TDap): Unknown Date of Influenza Vaccine: Jun 23, 2017 Seasonal Allergies Seasonal Allergies: No Past Medical History Surgeries: Yes (LT ANKLE, X 3) Section, Orthopedic, Tubal Ligation Respiratory: Yes Asthma Cardiac: Yes Heart Murmur Neurological: No : No Reproductive Disorders: No Female Reproductive Disorders: Denies WO[employer]WORK [employer] History: Tubal Ligation Sexually Transmitted Disease: Yes (CHLAMYDIA ) Genitourinary: No Gastrointestinal: Yes Gastroesophageal Reflux Musculoskeletal: Yes (chronic left ankle pain-S/P LEFT ANKLE LIGAMENT SURGERY) Chronic Back Pain, Fractures Endocrine: No HEENT: No Cancer: No Psychosocial: Yes (CUTTING, OVERDOSED, "ANGER ISSUES" ; SUICIDAL THOUGHTS AND THREATS) Anxiety, Suicide Attempts, Depression Integumentary: No Blood Disorders: No Adverse Reaction/Blood Tranf: No Family Medical History Asthma 19 FATHER Cardiovascular disease G8 BROTHER G8 SISTER Hypertension 19 FATHER No Pertinent Family Hx Physical Exam Capillary Refill : Less Than 3 Seconds Height, Weight, BMI Height: 5'0" Weight: 174lbs. 0.0oz. 78.047927yj; 31.8 BMI Method:Estimated General Appearance: WD/WN, no apparent distress HEENT: PERRL/EOMI Neck: normal inspection Respiratory: normal breath sounds, no respiratory distress, no accessory muscle use Cardiovascular: regular rate, rhythm, no murmur Gastrointestinal: non tender, soft Extremities: normal inspection Neurologic/Psychiatric: tool designer II-XII nml as tested, no motor/sensory deficits, alert, oriented x 3, other (FLAT AFFECT) Appearance/Memory: appropriate appearance, appropriate insight, no memory impairment Behavior/Eye Contact: cooperative, good eye contact, normal speech Thoughts/Hallucinations: no apparent hallucination Skin: normal color, warm/dry, other (NO EXTERNAL EVIDENCE OF TRAUMA) Progress/Results/Core Measures Results/Orders Lab Results My Orders Medications Given in ED Vital Signs/I&O Blood Pressure Mean: 112 Progress Progress Note : Progress Note NO DETERIORATION IN PT'S CONDITION DURING ER STAY Initial ECG Impression Date: Dec 13, 2018 Initial ECG Impression Time: 18:54 Initial ECG Rate: 78 Initial ECG Rhythm: Normal Sinus Departure Communication (Admissions) 1938--CALLED [facility]. WILL HAVE SCREENER A CALL BACK 1949--SPOKE WITH MIGUEL, FROM [facility]. WILL BE OUT TO SEE PT. 2057--MIGUEL HAS EVALUATED PT AND WILL ARRANGE OUTPATIENT FOLLOW UP WITH [facility] FOR INTAKE AND ANOTHER APPOINTMENT FOR FURTHER EVALUATION. Impression Primary Impression: Major depression Additional Impressions: Passive suicidal ideations UTI (urinary tract infection) Disposition: 01 HOME, SELF-CARE Condition: Stable Departure-Patient Inst. Referrals: [facility] Patient Instructions: Depression, Adult (DC), Suicide Prevention, Urinary Tract Infection, Adult (DC) Add. Discharge Instructions: LOTS OF CLEAR LIQUIDS--WATER, BROTH, JELLO, GATORADE--NO COFFEE, POP OR TEA FOLLOW UP WITH [facility] TOMORROW --THEY WILL CALL IN THE MORNING TO ARRANGE APPOINTMENTS FOLLOW UP WITH [facility] SCHEDULED IN DECEMBER RETURN TO ER IF SYMPTOMS WORSEN All discharge instructions reviewed with patient and/or family. Voiced understanding. Scripts Nitrofurantoin Monohyd/M-Cryst (Macrobid 100 mg Capsule) 100 Mg Capsule 100 MG PO BID, #20 CAP Prov: PRINCE CALDERON DO 12/13/18 Sertraline HCl (Zoloft) 50 Mg Tablet 50 MG PO DAILY, #5 TAB Prov: PRINCE CALDERON DO 12/13/18 PRINCE CALDERON DO Dec 13, 2018 18:58
[2018-12-13 19:01] LABS: AMORPHOUS SEDIMENT,UR MOD AMOR URATES /LPF; BACTERIA,URINE FEW /HPF
[2018-12-13 19:04] LABS: BASOPHILS % (AUTO) 0 % (0-10); EOSINOPHILS # (AUTO) 0.2 10^3/uL (0.0-0.3); EOSINOPHILS % (AUTO) 3 % (0-10); HEMATOCRIT 39 % (35-52); HEMOGLOBIN 13.5 G/DL (11.5-16.0); LYMPHOCYTES # (AUTO) 2.3 X 10^3 (1.0-4.0); LYMPHOCYTES % (AUTO) 29 % (12-44); MEAN CORPUSCULAR HEMOGLOBIN 30 PG (25-34); MEAN CORPUSCULAR HGB CONC 35 G/DL (32-36); MEAN CORPUSCULAR VOLUME 87 FL (80-99); MEAN PLATELET VOLUME 10.3 FL (7.4-10.4); MONOCYTES # (AUTO) 0.8 X 10^3 (0.0-1.0); MONOCYTES % (AUTO) 10 % (0-12); NEUTROPHILS # (AUTO) 4.5 X 10^3 (1.8-7.8); NEUTROPHILS % (AUTO) 58 % (42-75); PLATELET COUNT 319 10^3/uL (130-400); RED CELL DISTRIBUTION WIDTH 13.6 % (10.0-14.5); WHITE BLOOD COUNT 7.8 10^3/uL (4.3-11.0)
[2018-12-13 19:05] LABS: AMPHETAMINE SCREEN, URINE NEGATIVE (NEGATIVE); BARBITURATE SCREEN URINE NEGATIVE (NEGATIVE); BENZODIAZEPINES SCREEN URINE NEGATIVE (NEGATIVE); CANNABINOID SCREEN, URINE NEGATIVE (NEGATIVE); COCAINE SCREEN URINE NEGATIVE (NEGATIVE); METHADONE STAT NEGATIVE (NEGATIVE); METHAMPHETAMINE SCREEN URINE S NEGATIVE (NEGATIVE); OPIATE SCREEN URINE NEGATIVE (NEGATIVE); OXYCODONE STAT NEGATIVE (NEGATIVE); PROPOXYPHENE STAT NEGATIVE (NEGATIVE); TRICYCLIC ANTIDEPRESSANTS SCRE NEGATIVE (NEGATIVE)
[2018-12-13 19:25] LABS: ALANINE AMINOTRANSFERASE 15 U/L (0-55); ALBUMIN 4.4 GM/DL (3.2-4.5); ALKALINE PHOSPHATASE 83 U/L (40-136); BILIRUBIN,TOTAL 0.5 MG/DL (0.1-1.0); BUN/CREATININE RATIO 20; CALCIUM 9.6 MG/DL (8.5-10.1); CARBON DIOXIDE 25 MMOL/L (21-32); CHLORIDE 105 MMOL/L (98-107); CREATININE SERUM 0.69 MG/DL (0.60-1.30); GFR ESTIMATED > 60; GLUCOSE 93 MG/DL (70-105); POTASSIUM 3.9 MMOL/L (3.6-5.0); SALICYLATE < 5.0 MG/DL (5.0-20.0); SODIUM 141 MMOL/L (135-145); TOTAL PROTEIN 7.7 GM/DL (6.4-8.2)
[2018-12-13 19:27] LABS: ACETAMINOPHEN < 10 UG/ML (10-30)
[2018-12-13 19:44] LABS: TSH (THYROID ANALYZER) 0.64 UIU/ML (0.35-4.94)
[2018-12-13] MEDS ORDERED: NITROFURANTOIN 100 MG (MACROBID) CAPSULE PO ONE (20:00)
--- NOTE | 2018-12-13 20:14 | NUR ---
sue from [facility] here to see pt at this time.
[2018-12-13] MEDS ORDERED: NITR-65 PO (21:06)
[2018-12-13] MEDS ORDERED: SERT50TA2 PO (21:06)
[2018-12-13 21:24] VITALS: BP 132/94
== END 2018-12-13 21:24 | disposition home or self-care (01) ==
LOC: EDUNIT# 17:39 → ER 17:40
DX: F32.9 Major depressive disorder, single episode, unspecified (principal); N39.0 Urinary tract infection, site not specified; R45.851 Suicidal ideations; F41.9 Anxiety disorder, unspecified; J45.909 Unspecified asthma, uncomplicated; K21.9 Gastro-esophageal reflux disease without esophagitis; Z86.19 Personal history of other infectious and parasitic diseases; Z88.1 Allergy status to other antibiotic agents; Z87.891 Personal history of nicotine dependence; Z82.49 Family history of ischemic heart disease and other diseases of the circulatory system; Z98.890 Other specified postprocedural states
CPT/HCPCS: 36415; 80053; 80306; 80320; 80329; 81000; 84443; 84703; 85025; 87088; 93005